=== PATIENT | female | born 1935 | race Caucasian/White ===

== ENCOUNTER → 2017-10-15 13:37 | Outpatient (CLI) | payer MEDICARE, OTHER, SELFPAY ==
[2017-10-15 15:38] LABS: Absolute Lymphocyte Count 2.79 X10^3/ul (0.83-4.51); Absolute Neutrophil Count 5.9 X10^3/uL (2.0-7.7); Basophil# 0.06 X10^3/uL; Basophil% 0.6 % (0-1); Eosinophil# 0.37 X10^3/uL; Eosinophils% 3.7 % (0-5); Hematocrit 35.4 % (37-47); Lymphocyte # 2.79 X10^3/ul (4.0); Lymphocyte % 28.1 % (19-41); Mean Corp Hgb Conc 31.1 g/gl (32-36); Mean Corpuscular Hgb 28.2 pg (27.0-32.0); Mean Corpuscular Volume 90.8 fL (81-99); Mean Platelet Vol. 10.3 fl (6.2-12.0); Monocyte# 0.75 X10^3/uL; Monocyte% 7.6 % (0-10); Neutrophil # 5.93 X10^3/uL (2.7-7.7); Neutrophil % 59.7 % (47-70); Platelet Count 292 K/mm3 (150-450); RBC Distribution Width CV 13.9 % (11.6-14.6); RBC Distribution Width SD 46.2 fl (35.1-43.9); White Blood Count 9.9 K/mm3 (4.4-11.0)
[2017-10-15 15:46] LABS: POSITIVE COUNT NO; POSITIVE DIFFERENTIAL NO; POSITIVE MORPHOLOGY NO
== END ==
PROVIDERS: Family Provider Family Medicine; PCP Family Medicine; Visit Provider Internal Medicine Rheumatology
DX: D64.9 Anemia, unspecified (principal)
CPT/HCPCS: 36415; 85025

== ENCOUNTER → 2017-11-23 11:13 | Outpatient (CLI) | payer MEDICARE, OTHER, SELFPAY ==
[2017-11-23 14:09] LABS: Microalbumin,Random Urine 57.5 mg/L (NO RANGE EST.); Microalbumin:Creatinine Ratio 43.9 mg/g CRE (<30 mg/g CRE)
[2017-11-23 14:24] LABS: Hemoglobin A1c 7.4 % (4.2-6.3)
[2017-11-23 14:30] LABS: ALB/GLOB Ratio 0.8 RATIO (0.9-2.4); AST(SGOT) 21 U/L (15-37); Alanine Aminotransfer ALT/SGPT 17 U/L (13-56); Albumin, Serum 3.2 g/dL (3.2-5.0); Alkaline Phosphatase 91 U/L (45-117); Anion Gap 8 (5-15); BUN 18 mg/dL (7-18); BUN/Creat Ratio 18.3 RATIO (10-20); Calcium,Total 9.1 mg/dL (8.5-10.1); Chloride 109 mmol/L (98-107); Cholesterol 107 mg/dL (200); Creatinine, Serum 0.98 mg/dL (0.55-1.02); EST Glomerular Filtration Rate 58 mL/min (>60); Est Glom Filt Rate - Afr Amer 70 mL/min (>60); Globulin 3.9 g/dL (2.2-4.2); Glucose 76 mg/dL (74-106); High Density Lipoprotein 32 mg/dL; Potassium 4.2 mmol/L (3.5-5.1); Protein, Total 7.1 g/dL (6.4-8.2); Sodium Level 140 mmol/L (136-145); Triglycerides 130 mg/dL; Very Low Density Lipoprotein 26 mg/dL (5-40)
== END ==
PROVIDERS: Family Provider Family Medicine; PCP Family Medicine; Visit Provider Family Medicine
DX: E11.9 Type 2 diabetes mellitus without complications (principal); R80.9 Proteinuria, unspecified; E78.5 Hyperlipidemia, unspecified
CPT/HCPCS: 36415; 80053; 80061; 82043; 82570; 83036

== ENCOUNTER 2017-11-28 21:34 | Emergency (ER) | payer MEDICARE, OTHER, SELFPAY ==
[2017-11-28 21:35] VITALS: BP 130/79; PULSE 88; RESP 20; TEMP 36.2; O2SAT 95; BMI 37.4
[2017-11-28 21:51] LABS: Bedside Glucose 126 mg/dL (70-110)
[2017-11-28] MEDS: Ondansetron 4 MG/2 ML Vial IV (21:51)
[2017-11-28] MEDS: 0.9% Normal Saline 1,000 ML 1000 ML IV (21:51)
[2017-11-28 22:04] LABS: Absolute Lymphocyte Count 1.39 X10^3/ul (0.83-4.51); Absolute Neutrophil Count 8.5 X10^3/uL (2.0-7.7); Basophil# 0.04 X10^3/uL; Basophil% 0.4 % (0-1); Eosinophil# 0.09 X10^3/uL; Eosinophils% 0.8 % (0-5); Hematocrit 34.2 % (37-47); Lymphocyte # 1.39 X10^3/ul (4.0); Mean Corp Hgb Conc 32.2 g/gl (32-36); Mean Corpuscular Hgb 28.6 pg (27.0-32.0); Mean Corpuscular Volume 89.1 fL (81-99); Mean Platelet Vol. 9.4 fl (6.2-12.0); Monocyte# 0.69 X10^3/uL; Monocyte% 6.4 % (0-10); Neutrophil # 8.46 X10^3/uL (2.7-7.7); Neutrophil % 79.1 % (47-70); POSITIVE COUNT NO; POSITIVE DIFFERENTIAL NO; POSITIVE MORPHOLOGY NO; Platelet Count 230 K/mm3 (150-450); RBC Distribution Width CV 13.8 % (11.6-14.6); RBC Distribution Width SD 45.2 fl (35.1-43.9); Red Blood Count 3.84 M/mm3 (4.2-5.4); White Blood Count 10.7 K/mm3 (4.4-11.0)
[2017-11-28 22:21] LABS: ALB/GLOB Ratio 0.9 RATIO (0.9-2.4); AST(SGOT) 27 U/L (15-37); Alanine Aminotransfer ALT/SGPT 20 U/L (13-56); Albumin, Serum 3.4 g/dL (3.2-5.0); Alkaline Phosphatase 96 U/L (45-117); Anion Gap 9 (5-15); BUN 22 mg/dL (7-18); BUN/Creat Ratio 18.3 RATIO (10-20); Calcium,Total 9.5 mg/dL (8.5-10.1); Chloride 109 mmol/L (98-107); EST Glomerular Filtration Rate 46 mL/min (>60); Est Glom Filt Rate - Afr Amer 55 mL/min (>60); Estimated Creatinine Clearance 31.75 ml/min; Globulin 3.9 g/dL (2.2-4.2); Glucose 119 mg/dL (74-106); Potassium 4.3 mmol/L (3.5-5.1); Protein, Total 7.3 g/dL (6.4-8.2); Sodium Level 140 mmol/L (136-145)
--- NOTE | 2017-11-28 23:17 | ED.VISSUMM ---
- ER Visit Summary Date of Service: 11/28/17 Chief Complaint: Diarrhea History of Present Illness: The patient is a 82 F presenting with 2 days of loose watery diarrhea. No nausea or vomiting. No abdominal pain. No recent travel or sick contacts. No recent antibiotics. She is still drinking fluids but was concerned that she could be dehydrated. She took her diabetes medication today but did not eat her normal food or candy that she has used to and her blood glucose was low at urgent care [facility]. Physical Examination: Vitals are within normal limits. She is not in distress. Neck is supple. Heart tones are regular and without murmur. Lungs are clear bilaterally. Abdomen is soft and nontender. No focal or lateralizing neuro findings. No rash. Test Results: CBC and BMP are normal except for a slight increase in BUN/creatinine consistent with mild dehydration Emergency Department Course and Treatment: Given IV fluids and Zofran here. She did not have any episodes of diarrhea. She has no abdominal pain at all. No recent steroids or antibiotics. No risk factors for C. difficile. She never had any abdominal discomfort or fever. She looks quite well. I observed her and she is sitting up in bed not in distress. She is requesting to be discharged home. Her is comfortable taking her home and will continue to encourage fluids. She will follow closely with her doctor and return here if she develops any abdominal pain, fever, or is unable to orally hydrate. Treatment Plan: Oral Zofran as needed for nausea at home Disposition: Home stable condition Impression:Initial encounter diarrhea This note was generated with [employer] dictation software. It may contain incorrect words, spelling, and punctuation that were not noted in review of the chart prior to signing ED Disposition - Plan for ED Patient: Chief Complaint: Diarrhea Instructions: ED Diarrhea Viral Referrals: Mello Fowler DO [Primary Care Provider] - 1-2 Days if not improving
--- NOTE | 2017-11-28 23:20 | ED.DCSUM_ITS ---
- ER Visit Summary Date of Service: 11/28/17 Chief Complaint: Diarrhea History of Present Illness: The patient is a 82 F presenting with 2 days of loose watery diarrhea. No nausea or vomiting. No abdominal pain. No recent travel or sick contacts. No recent antibiotics. She is still drinking fluids but was concerned that she could be dehydrated. She took her diabetes medication today but did not eat her normal food or candy that she has used to and her blood glucose was low at urgent care [facility]. Physical Examination: Vitals are within normal limits. She is not in distress. Neck is supple. Heart tones are regular and without murmur. Lungs are clear bilaterally. Abdomen is soft and nontender. No focal or lateralizing neuro findings. No rash. Test Results: CBC and BMP are normal except for a slight increase in BUN/ creatinine consistent with mild dehydration Emergency Department Course and Treatment: Given IV fluids and Zofran here. She did not have any episodes of diarrhea. She has no abdominal pain at all. No recent steroids or antibiotics. No risk factors for C. difficile. She never had any abdominal discomfort or fever. She looks quite well. I observed her and she is sitting up in bed not in distress. She is requesting to be discharged home. Her is comfortable taking her home and will continue to encourage fluids. She will follow closely with her doctor and return here if she develops any abdominal pain, fever, or is unable to orally hydrate. Treatment Plan: Oral Zofran as needed for nausea at home Disposition: Home stable condition Impression:Initial encounter diarrhea This note was generated with [employer] dictation software. It may contain incorrect words, spelling, and punctuation that were not noted in review of the chart prior to signing ED Disposition - Plan for ED Patient: Chief Complaint: Diarrhea Instructions: ED Diarrhea Viral Referrals: Mello Fowler DO [Primary Care Provider] - 1-2 Days if not improving
[2017-11-28] MEDS: Ondansetron ODT 4 MG Tablet PO (23:46)
--- NOTE | 2017-11-28 23:51 | ED.RN ---
IV DC'ED, CATHETER INTACT, SMALL GAUZE DRESSING PLACED. DISCHARGE INSTRUCTIONS GIVEN TO AND REVIEWED WITH PATIENT AND SPOUSE, BOTH DENY QUESTIONS OR CONCERNS AND VOICES UNDERSTANDING OF DISCHARGE INSTRUCTIONS. PT AMBULATES OUT OF ROOM WITHOUT DIFFICULTY.
[2017-11-28 23:52] VITALS: BP 156/78; PULSE 82; RESP 16; O2SAT 96
== END 2017-11-28 23:53 | disposition home or self-care (01) ==
LOC: ED 22:06
PROVIDERS: Emergency Provider Emergency Medicine; Family Provider Family Medicine; PCP Family Medicine
DX: R19.7 Diarrhea, unspecified (principal); E86.0 Dehydration; E11.9 Type 2 diabetes mellitus without complications; M35.00 Sjogren syndrome, unspecified; Z79.84 Long term (current) use of oral hypoglycemic drugs; Z79.02 Long term (current) use of antithrombotics/antiplatelets; Z79.82 Long term (current) use of aspirin; Z79.899 Other long term (current) drug therapy
CPT/HCPCS: 80053; 82962; 85025; 99284; J7030; A4216; J2405

== ENCOUNTER 2017-11-30 13:04 | Inpatient (IN) | payer MEDICARE, OTHER, SELFPAY ==
[2017-11-30] VITALS (14 sets, daily range): BP systolic 120–145; BP diastolic 50–73; PULSE 50–74; RESP 15–23; TEMP 36.4–37.2; O2SAT 94–99; BMI 38.0; BMI 37.1
--- NOTE | 2017-11-30 13:07 | CT_ITS ---
STUDY: CT BRAIN WITHOUT CONTRAST REASON FOR EXAM: Female, 82 years old. Possible stroke. Hypertension. RADIATION DOSAGE (If Supplied By Facility): CTDIvol = ( 44.99 ) mGy, DLP = ( 796.11 ) mGycm TECHNIQUE: Transaxial CT imaging of the brain was performed without administration of intravenous contrast material. Individualized dose optimization techniques were used for this CT. COMPARISON: Comparison is made with prior study dated January 06, 2014. FINDINGS: Normal soft tissue structures. Normal calvarium. There is moderate cerebral atrophy with widening of the extra-axial spaces and ventricular dilatation. There are areas of decreased attenuation within the white matter tracts of the supratentorial brain, consistent with microvascular disease changes. Normal basal ganglia and thalami. Normal brainstem. There is mild cerebellar atrophy. There is no intracranial hemorrhage. There are no findings of an acute ischemic infarction. Atherosclerotic calcification of the cavernous portions of the internal carotid arteries bilaterally. Dolichoectasia of the basilar tip. Normal visualized paranasal sinuses. CT/Brain/Head without Contrast IMPRESSION: Chronic involutional changes of the brain. N.B. : The above information has been verbally conveyed by Alex Lobato MD to Toni Simmons, Referring Physician, on 11/30/2017 13:30:08 (ET). Electronically Signed: Alex Lobato MD at 13:30 EDT Tel [phone], Service support , N.B. : The above information has been verbally conveyed by Alex Lobato MD to Toni Simmons, Referring Physician, on 11/30/2017 13:30:08 (ET).
--- NOTE | 2017-11-30 13:07 | EKG12_ITS ---
Test Reason : NEURO Blood Pressure : / mmHG Vent. Rate : 063 BPM Atrial Rate : 063 BPM P-R Int : 232 ms QRS Dur : 076 ms QT Int : 398 ms P-R-T Axes : 075 008 050 degrees QTc Int : 407 ms Sinus rhythm with 1st degree A-V block Low voltage QRS Borderline ECG Confirmed by RICKIE CANTOR, TONIO ([id number]), restaurant expeditor JEFF PICKENS ([id number]) on 12/04/2017 2:18:41 PM Referred By: Mello Fowler Confirmed By:TONIO DAMIAN MD
[2017-11-30 13:17] LABS: Absolute Lymphocyte Count 3.02 X10^3/ul (0.83-4.51); Basophil# 0.05 X10^3/uL; Basophil% 0.5 % (0-1); Eosinophil# 0.42 X10^3/uL; Eosinophils% 4.5 % (0-5); Hematocrit 33.2 % (37-47); Hemoglobin 10.9 g/dl (12.0-15.0); Lymphocyte # 3.02 X10^3/ul (4.0); Lymphocyte % 32.6 % (19-41); Mean Corp Hgb Conc 32.8 g/gl (32-36); Mean Corpuscular Hgb 29.7 pg (27.0-32.0); Mean Corpuscular Volume 90.5 fL (81-99); Mean Platelet Vol. 9.9 fl (6.2-12.0); Monocyte# 0.78 X10^3/uL; Monocyte% 8.4 % (0-10); Neutrophil # 4.98 X10^3/uL (2.7-7.7); Neutrophil % 53.8 % (47-70); Platelet Count 228 K/mm3 (150-450); RBC Distribution Width CV 13.8 % (11.6-14.6); RBC Distribution Width SD 44.8 fl (35.1-43.9); Red Blood Count 3.67 M/mm3 (4.2-5.4); White Blood Count 9.3 K/mm3 (4.4-11.0)
[2017-11-30 13:18] LABS: POSITIVE COUNT NO; POSITIVE DIFFERENTIAL NO; POSITIVE MORPHOLOGY NO
[2017-11-30] MEDS: 0.9% Normal Saline 1,000 ML 100 ML IV (13:21)
[2017-11-30 13:25] LABS: International Normalized Ratio 1.1; Prothrombin Time (Protime)PT. 13.8 SECONDS (11.7-14.9)
[2017-11-30] MEDS: Dextrose 50%-Water 25 GM/50 ML DISP.SYRIN IV (13:25)
--- NOTE | 2017-11-30 13:25 | RAD_ITS ---
STUDY: X-RAY CHEST REASON FOR EXAM: Female, 82 years old. Confusion. TECHNIQUE: Single AP portable view of the chest. COMPARISON: Comparison is made with prior study dated August 28, 2016. FINDINGS: EKG electrodes are seen. The lungs are clear and expanded. There is no demonstrated pleural abnormality. There is moderate cardiac enlargement. Normal mediastinum and erick. Normal visualized pulmonary arteries. There is atherosclerotic tortuosity of the aortic arch and descending thoracic aorta. There are diffuse degenerative changes of the visualized thoracic spine. Normal visualized ribs, clavicles, and shoulders. There is no demonstrated abnormality of the visualized soft tissue structures of the upper abdomen. RAD/Chest 1 View IMPRESSION: Cardiomegaly. Electronically Signed: Alex Lobato MD at 13:42 EDT Tel [phone], Service support ,
[2017-11-30 13:26] LABS: Partial Thromboplast Time 26.5 Seconds (24.1-36.2)
[2017-11-30 13:26] LABS: Bedside Glucose 74 mg/dL (70-110)
[2017-11-30 13:34] LABS: Anion Gap 5 (5-15); BUN 17 mg/dL (7-18); BUN/Creat Ratio 15.2 RATIO (10-20); Calcium,Total 9.2 mg/dL (8.5-10.1); Chloride 110 mmol/L (98-107); Creatinine, Serum 1.12 mg/dL (0.55-1.02); EST Glomerular Filtration Rate 50 mL/min (>60); Est Glom Filt Rate - Afr Amer 60 mL/min (>60); Estimated Creatinine Clearance 34.02 ml/min; Glucose 73 mg/dL (74-106); Potassium 4.7 mmol/L (3.5-5.1); Sodium Level 142 mmol/L (136-145)
--- NOTE | 2017-11-30 13:35 | CT_ITS ---
STUDY: CTA OF THE BRAIN REASON FOR EXAM: Female, 82 years old. Global aphasia. RADIATION DOSAGE (If Supplied By Facility): CTDIvol = ( 22.19 ) mGy, DLP = ( 693.21 ) mGycm TECHNIQUE: CT angiography was performed with a multi-detector CT scanner. Data acquisition was obtained from the skull base through the vertex following intravenous administration of 100 ml of Isovue 370. MIP images were reconstructed from the axial data set. Post-processing of the angiographic images was performed, with multiplanar reformation and 3D reconstruction. Individualized dose optimization techniques were used for this CT. COMPARISON: None. FINDINGS: Normal bilateral petrous carotid arteries. There is calcified plaque formation of the right cavernous carotid artery, without a cross-sectional luminal stenosis. There is calcified plaque formation of the left cavernous carotid artery, without a cross-sectional luminal stenosis. Normal right A1 segments of the anterior cerebral artery. Normal left A1 segments of the anterior cerebral artery. Normal intact anterior communicating artery (ACOM). Normal bilateral A2 segments of the anterior cerebral arteries. Normal right M1 and M2 segments of the middle cerebral arteries, with a normal M1 bifurcation. Normal left M1 and M2 segments of the middle cerebral arteries, with a normal M1 bifurcation. Normal right posterior communicating artery (PCOM). Normal left posterior communicating artery (PCOM). Normal bilateral vertebral arteries. Normal basilar artery with a normal basilar bifurcation. The visualized bilateral superior cerebellar (SCA) arteries are normal. Normal bilateral P1, P2 and visualized P3 segments of the posterior cerebral arteries. There is no demonstrated aneurysm of the [place]. CT/CTA Head W/WO Contrast IMPRESSION: Normal [place] without a demonstrated aneurysm or hemodynamically significant stenosis. Electronically Signed: Alex Lobato MD at 14:57 EDT Tel [phone], Service support ,
--- NOTE | 2017-11-30 13:35 | CT_ITS ---
STUDY: CTA NECK WITH CONTRAST REASON FOR EXAM: Female, 82 years old. Global aphasia. RADIATION DOSAGE (If Supplied By Facility): CTDIvol = ( 22.19 ) mGy, DLP = ( 693.21 ) mGycm TECHNIQUE: CT angiography with multi-detector data acquisition was performed from the aortic arch to the skull base following intravenous administration of 100ML ml of Isovue 370 contrast. MIP images were reconstructed from the axial data set. Post-processing of the angiographic images was performed, with multiplanar reformation and 3D reconstruction. Individualized dose optimization techniques were used for this CT. COMPARISON: None. FINDINGS: AORTIC ARCH: There is atherosclerotic calcific plaque formation of the aortic arch and great vessels arising from the aortic arch, without a hemodynamically significant stenosis. Atherosclerotic plaque formation of the right brachiocephalic artery and proximal left subclavian artery. RIGHT CAROTID ARTERIES: Normal right common carotid artery (CCA). Normal right common carotid bulb. Normal origin of the right internal carotid (ICA) artery without a hemodynamically significant stenosis. Normal visualized cervical portion of the right internal carotid artery. Normal origin of the right external carotid artery (ECA). LEFT CAROTID ARTERIES: Normal left common carotid artery (CCA). Normal left common carotid bulb. Normal origin of the left internal carotid (ICA) artery without a hemodynamically significant stenosis. Normal visualized cervical portion of the left internal carotid artery. Normal origin of the left external carotid artery (ECA). VERTEBRAL ARTERIES: Normal bilateral vertebral arteries. Dolichoectasia of the basilar artery. CT/CTA Neck W/WO Contrast IMPRESSION: No acute abnormality is seen. Electronically Signed: Alex Lobato MD at 15:00 EDT Tel [phone], Service support ,
[2017-11-30 13:39] LABS: Color, Urine Yellow (Yellow); Glucose, Dipstick Normal (Normal); Ketone-Dipstick Negative (Negative); Leukocyte Esterase-Dipstick 100 /ul (Negative); Nitrite-Dipstick Positive (Negative); Occult Blood-Urine 10 /ul (Negative); Protein-Dipstick Negative (Negative); Specific Gravity, Urine 1.015 (1.002-1.030); Urine Clarity Sl. Cloudy (Clear); Urine Urobilinogen Normal (Normal)
[2017-11-30 13:54] LABS: Urine Bilirubin Dipstick 1 mg/dL (Negative)
[2017-11-30 13:56] LABS: Bacteria 4+ /hpf (None Seen); Mucous, Urine RARE /hpf (<or=2+); Red Blood Cells-Urine 0-5 SEEN /hpf (0-5); Squamous Epithelial Cells - UA 0-5 SEEN /hpf (5-10); White Blood Cells 5-10 SEEN /hpf (0-5)
--- NOTE | 2017-11-30 13:59 | CASEMGMT ---
Social Work Note Stroke alert called and SW responded. Provided support to pt's spouse. Spouse provided SW with medlist which was provided to nursing. Pt was recently in ED for blood sugars. Pt was present when symptoms occurred and called squad. Declines to have SW contact family and denies further needs. Gwen Apple, [employer] OPERATOR, [employer]ER
[2017-11-30] MEDS: Ceftriaxone 1 GM/50 ML BAG IV (14:34)
--- NOTE | 2017-11-30 15:39 | ED.VISSUMM ---
- ER Visit Summary Date of Service: 11/30/17 Chief Complaint: Weakness and slurred speech History of Present Illness: The patient is a [address] Fowler. Patient is essentially nonverbal at this time. reports that he woke up at 12:00. She seemed to be in her usual state of health. He went in 1245 to check on her and she had fallen while putting on her shoes. Patient seemed to have weakness and slurred speech. Physical Examination: Vitals: Stable. Afebrile. General: Well-nourished and well-developed. Head: Normocephalic dried blood in the left nares Neck: Supple, no lymphadenopathy. No JVD. Nontender. Cardiovascular: Regular rate and rhythm. No murmurs. Respiratory: No respiratory distress. Clear to auscultation bilaterally. Abdominal: Soft, nontender, nondistended, normal bowel sounds. No guarding, rebound, or peritoneal signs. Back: Nontender. Extremities: Erythema/contusion to the posterior left shoulder, no edema. Skin: Normal color, no rash. Neurologic: Patient is awake and alert. She will not speak. She clearly does not have a receptive aphasia. Her NIH scale is 6. Psych: Normal affect. Test Results: CT head shows atrophy and chronic changes. No acute disease. CTA head and neck show no acute disease. Chest x-ray shows cardiomegaly. EKG is sinus with first-degree AV block is 63 in no acute changes. Troponins negative. Cath urinalysis shows leukocytes, nitrates, 5-10 white blood cells, 4+ bacteria. Coags are normal. Chem-7 is more for chloride of 110, creatinine 1.12, glucose of 73. CBC is marked for an H&H 10.9 and 33.2. Emergency Department Course and Treatment: Patient was given an amp of D50 IV and a gram of Rocephin IV. On repeat exam when asked patient how she was doing and she was able to talk. However, shortly thereafter she stopped talking again. Treatment Plan: Patient was discussed with Dr. Asif. At this time given the nature of the patient's a aphasia it is felt that TPA is not in her best interest. She was discussed with Dr. Oliveros. She will be admitted to the hospital for further evaluation and treatment. Disposition: Admitted in improved condition. Impression: 1. Globally aphasia. 2. UTI. 3. Hypoglycemia. This note was generated with [employer] dictation software. It may contain incorrect words, spelling, and punctuation that were not noted in review of the chart prior to signing ED Disposition - Plan for ED Patient: Chief Complaint: Neuro S/Sx
--- NOTE | 2017-11-30 15:42 | ED.DCSUM_ITS ---
- ER Visit Summary Date of Service: 11/30/17 Chief Complaint: Weakness and slurred speech History of Present Illness: The patient is a [address] Fowler. Patient is essentially nonverbal at this time. reports that he woke up at 12:00. She seemed to be in her usual state of health. He went in 1245 to check on her and she had fallen while putting on her shoes. Patient seemed to have weakness and slurred speech. Physical Examination: Vitals: Stable. Afebrile. General: Well-nourished and well-developed. Head: Normocephalic dried blood in the left nares Neck: Supple, no lymphadenopathy. No JVD. Nontender. Cardiovascular: Regular rate and rhythm. No murmurs. Respiratory: No respiratory distress. Clear to auscultation bilaterally. Abdominal: Soft, nontender, nondistended, normal bowel sounds. No guarding, rebound, or peritoneal signs. Back: Nontender. Extremities: Erythema/contusion to the posterior left shoulder, no edema. Skin: Normal color, no rash. Neurologic: Patient is awake and alert. She will not speak. She clearly does not have a receptive aphasia. Her NIH scale is 6. Psych: Normal affect. Test Results: CT head shows atrophy and chronic changes. No acute disease. CTA head and neck show no acute disease. Chest x-ray shows cardiomegaly. EKG is sinus with first-degree AV block is 63 in no acute changes. Troponins negative. Cath urinalysis shows leukocytes, nitrates, 5-10 white blood cells, 4 + bacteria. Coags are normal. Chem-7 is more for chloride of 110, creatinine 1.12, glucose of 73. CBC is marked for an H&H 10.9 and 33.2. Emergency Department Course and Treatment: Patient was given an amp of D50 IV and a gram of Rocephin IV. On repeat exam when asked patient how she was doing and she was able to talk. However, shortly thereafter she stopped talking again. Treatment Plan: Patient was discussed with Dr. Asif. At this time given the nature of the patient's a aphasia it is felt that TPA is not in her best interest. She was discussed with Dr. Oliveros. She will be admitted to the hospital for further evaluation and treatment. Disposition: Admitted in improved condition. Impression: 1. Globally aphasia. 2. UTI. 3. Hypoglycemia. This note was generated with [employer] dictation software. It may contain incorrect words, spelling, and punctuation that were not noted in review of the chart prior to signing ED Disposition - Plan for ED Patient: Chief Complaint: Neuro S/Sx
--- NOTE | 2017-11-30 16:03 | HP.PCM_ITS ---
<Cyril Castellano - Last Filed: 11/30/17 15:53> Problem List (1) CVA (cerebral vascular accident) Status: Acute (2) UTI (urinary tract infection) Status: Acute (3) Vertigo Status: Chronic (4) DM (diabetes mellitus), type 2 Status: Chronic (5) Fibromyalgia Status: Chronic (6) Frequent UTI Status: Chronic (7) GERD (gastroesophageal reflux disease) Status: Chronic (8) HLD (hyperlipidemia) Status: Chronic (9) Hearing deficit Status: Chronic (10) Sjogrens syndrome Status: Chronic History of Present Illness Date of Admission: 11/30/17 Chief Complaint: right sided weakness The patient is a 82 year old F with a hx of frequent UTIs, vertigo, dementia, hard of hearing, HLD, DMt2, who presents to the ER from home with right sided weakness. Her is helping answer questions as she is having a difficult time responding, and he states that she cannot remember what happened today. He does note that she has a hx of dementia but she is usually oriented to herself and surroundings, and knows her family. She cannot say who her is currently. This morning her woke her up and was trying to get her up but she had weakness in her right leg. He called the squad and went to clear the house for EMS to get to the bedroom and when he returned he found her on the floor. She cannot recall what happened. There are also conflicting reports from the nurses and ER doc that she is behaving differently depending on if the is present, so her symptoms are unclear. She is following commands appropriately and does not appear to have weakness, GARCIA, dizziness, diplopia, CP , at this time. It is unclear if she is aphasic or having a difficult time hearing and undersanding questions. She requires questions to be repeated multiple times before answering and instructions to be repeated frequently. She has seen Dr. Asif as an outpatient for vertigo and sleep apnea. She was admitted for stroke workup in the past and discharged home with dx of BPPV. She also appears to have a UTI and does have a hx of frequent UTIs. Triana was placed in the ER. [] Past Medical History Past Medical History (Chronic Problems): Chronic Problems Fibromyalgia (Chronic) GERD (gastroesophageal reflux disease) (Chronic) Vertigo (Chronic) Frequent UTI (Chronic) Hearing deficit (Chronic) Otosclerosis (Chronic) HLD (hyperlipidemia) (Chronic) Sjogrens syndrome (Chronic) DM (diabetes mellitus), type 2 (Chronic) Allergies No Known Allergies Allergy (Verified 11/30/17 13:17) Home Medications: Ambulatory Orders Medication Instructions Recorded Aspirin [Aspirin, Baby] 81 mg PO DAILY@0800 01/06/14 Omeprazole [Prilosec] 40 mg PO DAILY 01/06/14 Atorvastatin Calcium [Lipitor] 40 mg PO QHS #30 tablet 01/08/14 B1/B2/B3/B5/B6/Iron/Meth/Choln 118 ml PO DAILY 08/28/16 [Geritol Tonic] Cholecalciferol (Vitamin D3) 1,000 unit PO DAILY 08/28/16 [Vitamin D3] Donepezil HCl 10 mg PO DAILY 08/28/16 Gabapentin [Neurontin] 300 mg PO QHS 08/28/16 Glimepiride [Amaryl] 4 mg PO BID 08/28/16 Metformin HCl [Glucophage] 1,000 mg PO BIDCM 08/28/16 Cinnamon Bark [Cinnamon] 1,000 mg PO DAILY 11/30/17 Erythromycin Base [Erythromycin] 1 applicatio EACH EYE DAILY 11/30/17 Gabapentin [Neurontin] 100 mg PO DAILY 11/30/17 Meloxicam [Meloxicam] 15 mg PO DAILY 11/30/17 Ramipril [Ramipril] 5 mg PO DAILY 11/30/17 traMADol [Ultram] 50 mg PO Q6H PRN 11/30/17 Surgical History: tonsillectomy - with an uvulectomy for sleep apnea Psychiatric History: No pertinent psych hx [employer] History: No pertinent [employer] history Smoking Status: Never smoker Alcohol: None Drugs: None - *Family History Maternal History Items: Diabetes, Dementia Paternal History Items: Diabetes, Heart Disease Review of Systems Constitutional: Denies: Chills, Fever, Weight Change HEENT: Denies: Head Aches, Sinus Congestion, Sinus Drainage Cardiovascular: Denies: Chest Pain, Palpitations Respiratory: Denies: Cough, Shortness of breath at rest, Sputum production Gastrointestinal: Denies: Abdominal Pain, Nausea, Vomiting Genitourinary: Denies: Dysuria Musculoskeletal: Denies: Joint Pain, Joint Tenderness Skin: Denies: Rash, Wounds Neurological: Reports: Balance problems, Confusion, Focal weakness, - - aphasia. Denies: Numbness, Tingling Psychiatric: Denies: Anxiety, Depression, Homicidal Ideations, Suicidal Ideations Hematologic/ Lymphatic: Denies: Easy Bruising, Easy Bleeding VTE Information - Inpt Only VTE Present on Admission: No VTE Mechan Device Prophylaxis: SCD's VTE Pharm Prophylaxis ordered?: Yes Patient Problems: Active and Suspected Problems UTI (urinary tract infection) (Acute) CVA (cerebral vascular accident) (Acute) - Physical Exam General: Alert, Confused HEENT: Atraumatic, PERRLA, EOMI, Normocephalic Neck: Supple, No JVD, Negative Carotid Bruits Lungs: Clear to auscultation, Normal air movement Cardiovascular: Regular rate, No murmurs Abdomen: Bowel Sounds Present, Soft, Non Tender Extremities: No edema, Capillary Refill Less than 3 Seconds Skin: No rashes, No breakdown Musculoskeletal: No Tenderness to Palpation of Joints or Extremities Neurological: Cranial nerves II-XII grossly intact, - - difficulty hearing, difficulty following commands, difficulty verbalizing answers. Psych/Mental Status: Normal Affect, Appropriate Vital Signs Temp Pulse Resp BP Pulse Ox 98.6 F 62 16 128/63 H 97 11/30/17 15:26 11/30/17 15:26 11/30/17 15:26 11/30/17 15:26 11/30/17 15:26 Oxygen Flow Rate (L/min) 2 Oxygen Delivery Method Nasal Cannula Weight: 100.6 kg Body Mass Index (BMI) 38.0 Finger Stick Blood Glucose 74 Laboratory Tests Past 24 Hrs 11/30/17 11/30/17 11/30/17 13:08 13:08 13:08 WBC 9.3 RBC 3.67 L Hgb 10.9 L Hct 33.2 L MCV 90.5 MCH 29.7 MCHC 32.8 RDW 13.8 RDW Differential 44.8 H Plt Count 228 MPV 9.9 Immature Gran % (Auto) 0.200 Neut % (Auto) 53.8 Lymph % (Auto) 32.6 Stone % (Auto) 8.4 Eos % (Auto) 4.5 Baso % (Auto) 0.5 Absolute Neuts (auto) 5.0 Absolute Lymphs (auto) 3.02 Total Counted Not Reportable PT 13.8 INR 1.1 APTT 26.5 Sodium 142 Potassium 4.7 Chloride 110 H Carbon Dioxide 27.0 Anion Gap 5 BUN 17 Creatinine 1.12 H Estim Creat Clear Calc 34.02 Est GFR (MDRD) Af Amer 60 Est GFR (MDRD) Non-Af 50 L BUN/Creatinine Ratio 15.2 Glucose 73 L Calcium 9.2 Troponin I < 0.015 Urine Color Urine Clarity Urine pH Ur Specific [place] Urine Protein Urine Glucose (UA) Urine Ketones Urine Occult Blood Urine Nitrite Urine Bilirubin Urine Urobilinogen Ur Leukocyte Esterase Urine RBC Urine WBC Ur Squamous Epith Cells Urine Bacteria Urine Mucus 11/30/17 13:30 WBC RBC Hgb Hct MCV MCH MCHC RDW RDW Differential Plt Count MPV Immature Gran % (Auto) Neut % (Auto) Lymph % (Auto) Stone % (Auto) Eos % (Auto) Baso % (Auto) Absolute Neuts (auto) Absolute Lymphs (auto) Total Counted PT INR APTT Sodium Potassium Chloride Carbon Dioxide Anion Gap BUN Creatinine Estim Creat Clear Calc Est GFR (MDRD) Af Amer Est GFR (MDRD) Non-Af BUN/Creatinine Ratio Glucose Calcium Troponin I Urine Color Yellow Urine Clarity Sl. Cloudy Urine pH 5.0 Ur Specific [place] 1.015 Urine Protein Negative Urine Glucose (UA) Normal Urine Ketones Negative Urine Occult Blood 10 H Urine Nitrite Positive H Urine Bilirubin 1 H Urine Urobilinogen Normal Ur Leukocyte Esterase 100 H Urine RBC 0-5 SEEN Urine WBC 5-10 SEEN Ur Squamous Epith Cells 0-5 SEEN Urine Bacteria 4+ Urine Mucus RARE POC Glucose 11/30/17 13:09 POC Glucose 74 Assessment/Plan Active and Suspected Problems UTI (urinary tract infection) (Acute) CVA (cerebral vascular accident) (Acute) 1. CVA - ? hx of Right sided weakness and aphasia. CT brain negative, CTA head and neg negative. Neuro consult. Obtain MRI. Fell at home, does not appear to have any external head injury. Circumstances are unclear and her symptoms are different depending on who asks or if is present. Obtain PTOTST evals. Get echocardiogram. Check A1C/FLP. Continue ASA/statin for now. 2. UTI - with hx of frequent UTIs - continue rocephin and follow final C/S. 3. Hx BPPV 4. Dementia - continue home meds. 5. DMt2 - check A1C and adjust home meds as needed. Hold metformin. SSI 6. HLD - check FLP. 7. TOBY - to bring CPAP machine from home 8. Hx fibromyalgia/sjogren syndrome 9. CKD III - monitor renal function as she received contrast. DVT ppx: heparin DC planning: may need placed. This patient was seen by Cyril Castellano PA-C under the supervision of Doctor Domo. <Dereck Oliveros - Last Filed: 11/30/17 16:51> History of Present Illness Seen and examined. Patient was brought in by EMS as the patient suddenly had altered mental status and forgot to put on the shows and then fall backwards with weakness but caught by her . Patient was also not able to speak or understand the speech. Later on, patient was put on the bed by her and she rolled over from the bed but her thinks she did not had major injury. ED physician, Dr. Simmons said and they just excluded 6. ER physician already discussed with Dr. Asif and decided not tPA. As per the nursing staff, when the is not there patient denies a stroke scale is 0-1 [] Past Medical History Allergies No Known Allergies Allergy (Verified 11/30/17 13:17) - Physical Exam Neurological: Cranial nerves II-XII grossly intact, Deep Tendon Reflexes 2+/4 and Symmetrical, Motor Exam 5/5 strength throughout, - - difficulty hearing, difficulty following commands, difficulty verbalizing answers. NIH stroke scale is 6 with 2 points for unable to follow command, 2 for not able to name month and age and 2 for language deficit Vital Signs Temp Pulse Resp BP Pulse Ox 98.3 F 50 L 16 135/69 H 99 11/30/17 16:26 11/30/17 16:26 11/30/17 16:26 11/30/17 16:26 11/30/17 16:26 Oxygen Flow Rate (L/min) 2 Oxygen Delivery Method Nasal Cannula Weight: 216 lb 4.375 oz Body Mass Index (BMI) 37.1 Assessment/Plan This patient was seen in conjunction with Cyril FLAL. I have independently interviewed and examined the patient and reviewed pertinent history, examination findings, laboratory and plan of management. I have reviewed the note and agree with the documented findings with the few additional points. In brief, patient is admitted for suspected ischemic stroke with aphasia, not able to follow commands and decreased alertness, total NIH stroke scale 6. As mentioned above, CT brain is negative and CTA head and neck does not show major stenosis or occlusion. Standard CVA protocol with PT, OT, speech therapy, control of BP and glucose as per stroke guidelines. MRI brain ordered. I have discussed my assessment with Cyril FALL and orders have been reviewed. Code Visit Inpatient E&M: 87132 Init Hosp L3
--- NOTE | 2017-11-30 16:54 | MRI_ITS ---
MR Brain W/O Contrast INDICATION: confusion, weakness, aphasia COMPARISON: CT from earlier the same day TECHNIQUE: Multiplanar multisequence MRI examination of the brain without contrast FINDINGS: There is evidence of faintly restricted diffusion in the left thalamus compatible with focal acute left thalamic infarct. The ventricular system and cortical sulci are prominent, compatible with generalized cerebral volume loss. Small focal right high frontal encephalomalacia is noted compatible with prior focal infarct. There are patchy and confluent bilateral periventricular and subcortical T2/fat signal hyperintensities, nonspecific, most compatible with chronic ischemic microvascular white matter changes. Flow-voids of the [place] vascularity are present. The distal vertebral arteries and basilar artery are prominent in caliber. A partially empty sella is incidentally noted. MRI/Brain without Contrast IMPRESSION: Focal acute infarct in the left thalamus. Age-related generalized cerebral volume loss and chronic ischemic white matter changes. at 1943 Reported and signed by: Emilie Birmingham MD N.B. : The above information has been verbally conveyed by Emilie Birmingham MD to , Covering Physician, on 11/30/2017 19:45:46 (ET). Electronically Signed: Emilie Birmingham MD at 19:43 EDT Tel , Service support , N.B. : The above information has been verbally conveyed by Emilie Birmingham MD to , Covering Physician, on 11/30/2017 19:45:46 (ET).
--- NOTE | 2017-11-30 16:54 | ECHOD_ITS ---
Reason For Study: TIA/CVA Procedure This was a 2D Doppler, Color Flow transthoracic echocardiogram. The exam was of fair technical quality due to body habitus. The study was technically difficult. Exam performed portable in patient room. Left Ventricle Normal LV size. Left ventricular systolic function is normal. The estimated ejection fraction is 60 %. Normal diastology for age. No regional wall motion abnormalities noted. Right Ventricle Normal RV size. Normal systolic function. Atria The left atrium is mildly enlarged. Normal right atrium. No doppler evidence for ASD. Bubble contrast study negative for right to left interatrial shunt. Mitral Valve There is moderate mitral annular calcification. Extension of the mitral annular calcification onto the posterior mitral valve leaflet. Trivial mitral valve insufficiency. Tricuspid Valve Normal tricuspid valve. Trivial tricuspid valve insufficiency. Unable to estimate RV systolic pressure/pulmonary artery pressure due to technically difficult study. Aortic Valve Trisinus/trileaflet aortic valve. Normal aortic valve. Pulmonic Valve The pulmonic valve is not well visualized. Trivial pulmonic valve insufficiency. Great Vessels Normal sized aortic root. Pericardium/Pleural No pericardial effusion. Medication Performed a rapid injection of agitated mix of 9 cc saline and 1cc air to assess for atrial septal defect. MMode/2D Measurements & Calculations LVIDd: 4.9 cm IVSd: 1.3 cm Ao root diam: 3.1 cm LVIDs: 2.9 cm LVPWd: 1.1 cm LA dimension: 3.9 cm FS: 42.0 % LAV(MOD-sp4): 51.0 ml LA A4 area: 19.8 cm2 Time Measurements MV dec time: 0.31 sec Doppler Measurements & Calculations MV E max hitesh: 67.9 cm/sec Lat Peak E' Hitesh: 7.4 cm/sec Med Peak E' Hitesh: 7.3 cm/sec MV A max hitesh: 87.8 cm/sec E/E' lat: 9.1 E/E' med: 9.3 MV E/A: 0.77 MV V2 max: 107.9 cm/sec MV P1/2t max hitesh: 99.2 cm/sec Ao V2 max: 131.0 cm/sec MV max P.7 mmHg MV P1/2t: 91.5 msec Ao max P.9 mmHg MV V2 mean: 58.6 cm/sec MV dec slope: 317.4 cm/sec2 Ao V2 mean: 75.6 cm/sec MV mean P.6 mmHg MVA(P1/2t): 2.4 cm2 Ao mean P.7 mmHg MV V2 VTI: 34.0 cm Ao V2 VTI: 27.3 cm LV V1 max: 94.7 cm/sec PA V2 max: 105.9 cm/sec LV V1 max P.6 mmHg LV V1 mean P.5 mmHg LV V1 mean: 56.5 cm/sec LV V1 VTI: 20.2 cm Interpretation Summary The study was technically difficult. Left ventricular systolic function is normal. The estimated ejection fraction is 60 %. The left atrium is mildly enlarged. There is moderate mitral annular calcification. Extension of the mitral annular calcification onto the posterior mitral valve leaflet. Trivial mitral valve insufficiency. Trivial tricuspid valve insufficiency. Trivial pulmonic valve insufficiency. Unable to estimate RV systolic pressure/pulmonary artery pressure due to technically difficult study. Normal diastology for age. Ordering Physician: Dereck Oliveros Referring Physician: Mello Fowler Performed By: Renzo García RCS
[2017-11-30 17:00] LABS: Bedside Glucose 110 mg/dL (70-110)
--- NOTE | 2017-11-30 18:34 | NURSING ---
1615- pt's wedding ring removed for MRI. pt's wedding ring given to at this time.
[2017-11-30 22:32] LABS: Magnesium 1.6 mg/dL (1.6-2.6)
[2017-11-30] MEDS: Heparin Injection (Vial) 5,000 UNIT/ML VIAL 5000 UNIT SC (23:00)
[2017-11-30 23:11] LABS: Bedside Glucose 83 mg/dL (70-110)
[2017-12-01] VITALS (12 sets, daily range): BP systolic 115–140; BP diastolic 51–70; PULSE 54–80; RESP 12–20; TEMP 36.7–37.2; O2SAT 95–97; BMI 37.1
[2017-12-01] MEDS: Heparin Injection (Vial) 5,000 UNIT/ML VIAL 5000 UNIT SC ×2 (06:42→14:01)
[2017-12-01 07:05] LABS: Bedside Glucose 72 mg/dL (70-110)
[2017-12-01 07:25] LABS: Cholesterol 101 mg/dL (200); High Density Lipoprotein 28 mg/dL; Triglycerides 126 mg/dL; Very Low Density Lipoprotein 25 mg/dL (5-40)
[2017-12-01 07:42] LABS: Hemoglobin A1c 7.3 % (4.2-6.3)
[2017-12-01] MEDS: 0.9% Normal Saline 1,000 ML 75 ML IV ×2 (08:33→08:34)
[2017-12-01] MEDS: Aspirin 81 MG TAB.CHEW PO (08:36)
[2017-12-01] MEDS: Famotidine 20 MG Tablet PO (08:36)
[2017-12-01] MEDS: Ceftriaxone 1 GM/50 ML BAG IV (09:28)
[2017-12-01 11:11] LABS: Bedside Glucose 157 mg/dL (70-110)
--- NOTE | 2017-12-01 13:26 | CASEMGMT ---
Refer to SW assessment for additional details. Referral received from youth coordinator this date. Met with patient and this date. Introduced self and SW role at [facility]. Patient independent prior to admission in ambulation and ADLs. Multiple steps within their home. Patient and receptive to [facility] TCU or Rehab unit however do not want a facility in the community. PLAN: Referral initiated per message on post-acute referral line for [facility] TCU and Rehab units. Primary SW to follow up on Sunday. CASTILLO AlvarezA
--- NOTE | 2017-12-01 14:31 | PCM.PN.HOSP ---
Patient Problems: Active and Suspected Problems UTI (urinary tract infection) (Acute) CVA (cerebral vascular accident) (Acute) Subjective: Patient is awake and oriented ?1 but has advanced dementia for about 5 years. 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 No focal weakness. Patient passed swallow screen. Vitals/I&O's: Vital Signs Temp Pulse Resp BP Pulse Ox 98.0 F 66 12 123/66 H 96 12/01/17 12:20 12/01/17 12:20 12/01/17 12:20 12/01/17 12:20 12/01/17 12:20 Oxygen Flow Rate (L/min) 2 Oxygen Delivery Method Room Air Weight: 216 lb 4.375 oz Body Mass Index (BMI) 37.1 Intake and Output for Last 24 Hours 11/29/17 11/30/17 12/01/17 23:59 23:59 23:59 Intake Total 1225 / 1225 Output Total 450 / 450 400 / 400 Balance -450 / -450 825 / 825 General: Alert, Cooperative, Disoriented HEENT: Atraumatic, PERRLA, EOMI, Normocephalic Oral: Dry Mucosa Neck: Supple, No JVD, Negative Carotid Bruits Lungs: Clear to auscultation, Normal air movement, No rhonchi, No wheeze, Diminished Cardiovascular: Regular rate, Regular Rhythm, Normal S1, Normal S2, No murmurs Abdomen: Bowel Sounds Present, Soft, Non Tender, Non-Distended Extremities: Capillary Refill Less than 3 Seconds, Edema Skin: No rashes, No breakdown Musculoskeletal: No Tenderness to Palpation of Joints or Extremities Neurological: Cranial nerves II-XII grossly intact, - - Patient has problem understanding the speech and reading the words. She is also hard of hearing and dementia Laboratory Results 11/30/17 16:55: POC Glucose 110 11/30/17 17:10: Troponin I < 0.015, TSH 1.80 11/30/17 17:10: Magnesium 1.6 11/30/17 23:04: POC Glucose 83 12/01/17 06:20: Triglycerides 126, Cholesterol 101, LDL Cholesterol 48, VLDL Cholesterol 25, HDL Cholesterol 28 L 12/01/17 06:20: Hemoglobin A1c 7.3 H 12/01/17 06:45: POC Glucose 72 12/01/17 11:04: POC Glucose 157 H Current Medications Acetaminophen (Tylenol) 650 mg PO Q4H PRN PRN PRN Reason: Headache/Temp>99F Aspirin (Aspirin, Baby) 81 mg PO DAILY@0800 [facility] Last Admin: 12/01/17 08:36 Dose: 81 mg Atorvastatin Calcium (Lipitor) 80 mg PO QHS [facility] Dextrose (D50w Syringe) 0 gm IV X1 PRN; Protocol PRN Reason: Hypoglycemia Donepezil HCl (Aricept) 10 mg PO DAILY [facility] Erythromycin () gm EACH EYE DAILY [facility] Famotidine (Pepcid) 20 mg PO DAILY [facility] Last Admin: 12/01/17 08:36 Dose: 20 mg Gabapentin (Neurontin) 100 mg PO DAILY [facility] Gabapentin (Neurontin) 300 mg PO QHS [facility] Glucagon () 1 mg IM .X1 PRN PRN Reason: Hypoglycemia Heparin Sodium (Porcine) (Heparin Na) 5,000 unit SC Q12 [facility] Ceftriaxone Sodium (Rocephin) 1 gm in 50 mls @ 100 mls/hr IV Q24 [facility] Last Admin: 12/01/17 09:28 Dose: 100 mls/hr Insulin Human Lispro (Humalog Kwikpen (Bkc)) 0 unit SQ ACHS [facility] PRN Reason: Protocol Labetalol HCl (Trandate) 10 mg IV Q10M PRN PRN Reason: MAINTAIN SBP GOALS Stop: 12/01/17 16:53 Non-Formulary Medication (B1/B2/B3/B5/B6/Iron/Meth/Choln [Geritol Tonic]) 118 ml PO DAILY [facility] Non-Formulary Medication (Cholecalciferol (Vitamin D3) [Vitamin D3]) 1,000 unit PO DAILY [facility] Non-Formulary Medication (Omeprazole [Prilosec]) 40 mg PO DAILY [facility] Ramipril (Altace) 5 mg PO DAILY [facility] Tramadol HCl (Ultram) 50 mg PO Q6H PRN PRN Reason: PAIN Medical Necessity - Tobacco Use Smoking Status: Never smoker Assessment/Plan Active and Suspected Problems UTI (urinary tract infection) (Acute) CVA (cerebral vascular accident) (Acute) This is a 32-year-old female who is admitted for suspected ischemic stroke with aphasia, not able to follow commands and decreased alertness, total NIH stroke scale 6. As mentioned above, CT brain is negative and CTA head and neck does not show major stenosis or occlusion. She was further admitted in PCU floor. 1 acute focal ischemic infarct in the left thalamus: Patient had MRI brain which showed Focal acute infarct in the left thalamus. CT brain does not show acute change. Neuro consult. Standard CVA protocol with PT, OT, speech therapy, control of BP and glucose as per stroke guidelines. On aspirin, Plavix and statin. Her troponin enzymes are negative. TSH 1.8. A1c 7.3. Fasting lipid profile shows low HDL 28. 2. E. coli lower UTI - with hx of frequent UTIs -final urine culture is pending. Continue Rocephin 3. Hx BPPV 4. 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 Continue home meds. 5. DMt2 -on Accu-Chek before meals and at bedtime and cover with SSI 6. HLD -as mentioned above. On the starting 7. TOBY - to bring CPAP machine from home 8. Hx fibromyalgia/sjogren syndrome 9. CKD III - monitor renal function as she received contrast. DVT ppx: heparin Microbiology Past 72 Hours 11/30/17 13:30 Urine Catheter - Triana Urine Culture - Preliminary Presumptive E. coli Laboratory Results 11/30/17 16:55: POC Glucose 110 11/30/17 17:10: Troponin I < 0.015, TSH 1.80 11/30/17 17:10: Magnesium 1.6 11/30/17 23:04: POC Glucose 83 12/01/17 06:20: Triglycerides 126, Cholesterol 101, LDL Cholesterol 48, VLDL Cholesterol 25, HDL Cholesterol 28 L 12/01/17 06:20: Hemoglobin A1c 7.3 H 12/01/17 06:45: POC Glucose 72 12/01/17 11:04: POC Glucose 157 H Clinical Impression(s) from Imaging Studies Brain CT 11/30/17 13:07 IMPRESSION: Chronic involutional changes of the brain. Chest X-Ray 11/30/17 13:25 IMPRESSION: Cardiomegaly. Head CTA 11/30/17 13:35 IMPRESSION: Normal [place] without a demonstrated aneurysm or hemodynamically significant stenosis. Electronically Signed: Alex Lobato MD at 14:57 EDT Tel [phone], Service support , Neck CTA 11/30/17 13:35 IMPRESSION: No acute abnormality is seen. Electronically Signed: Alex Lobato MD at 15:00 EDT Tel [phone], Service support , Brain MRI 11/30/17 16:54 IMPRESSION: Focal acute infarct in the left thalamus. Age-related generalized cerebral volume loss and chronic ischemic white matter changes. Code Visit Inpatient E&M: 72262 Subs Hosp L2
--- NOTE | 2017-12-01 14:39 | PN_ITS ---
Patient Problems: Active and Suspected Problems UTI (urinary tract infection) (Acute) CVA (cerebral vascular accident) (Acute) Subjective: Patient is awake and oriented ?1 but has advanced dementia for about 5 years. 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 No focal weakness. Patient passed swallow screen. Vitals/I&O's: Vital Signs Temp Pulse Resp BP Pulse Ox 98.0 F 66 12 123/66 H 96 12/01/17 12:20 12/01/17 12:20 12/01/17 12:20 12/01/17 12:20 12/01/17 12:20 Oxygen Flow Rate (L/min) 2 Oxygen Delivery Method Room Air Weight: 216 lb 4.375 oz Body Mass Index (BMI) 37.1 Intake and Output for Last 24 Hours 11/29/17 11/30/17 12/01/17 23:59 23:59 23:59 Intake Total 1225 / 1225 Output Total 450 / 450 400 / 400 Balance -450 / -450 825 / 825 General: Alert, Cooperative, Disoriented HEENT: Atraumatic, PERRLA, EOMI, Normocephalic Oral: Dry Mucosa Neck: Supple, No JVD, Negative Carotid Bruits Lungs: Clear to auscultation, Normal air movement, No rhonchi, No wheeze, Diminished Cardiovascular: Regular rate, Regular Rhythm, Normal S1, Normal S2, No murmurs Abdomen: Bowel Sounds Present, Soft, Non Tender, Non-Distended Extremities: Capillary Refill Less than 3 Seconds, Edema Skin: No rashes, No breakdown Musculoskeletal: No Tenderness to Palpation of Joints or Extremities Neurological: Cranial nerves II-XII grossly intact, - - Patient has problem understanding the speech and reading the words. She is also hard of hearing and dementia Laboratory Results 11/30/17 16:55: POC Glucose 110 11/30/17 17:10: Troponin I < 0.015, TSH 1.80 11/30/17 17:10: Magnesium 1.6 11/30/17 23:04: POC Glucose 83 12/01/17 06:20: Triglycerides 126, Cholesterol 101, LDL Cholesterol 48, VLDL Cholesterol 25, HDL Cholesterol 28 L 12/01/17 06:20: Hemoglobin A1c 7.3 H 12/01/17 06:45: POC Glucose 72 12/01/17 11:04: POC Glucose 157 H Current Medications Acetaminophen (Tylenol) 650 mg PO Q4H PRN PRN PRN Reason: Headache/Temp>99F Aspirin (Aspirin, Baby) 81 mg PO DAILY@0800 [facility] Last Admin: 12/01/17 08:36 Dose: 81 mg Atorvastatin Calcium (Lipitor) 80 mg PO QHS [facility] Dextrose (D50w Syringe) 0 gm IV X1 PRN; Protocol PRN Reason: Hypoglycemia Donepezil HCl (Aricept) 10 mg PO DAILY [facility] Erythromycin () gm EACH EYE DAILY [facility] Famotidine (Pepcid) 20 mg PO DAILY [facility] Last Admin: 12/01/17 08:36 Dose: 20 mg Gabapentin (Neurontin) 100 mg PO DAILY [facility] Gabapentin (Neurontin) 300 mg PO QHS [facility] Glucagon () 1 mg IM .X1 PRN PRN Reason: Hypoglycemia Heparin Sodium (Porcine) (Heparin Na) 5,000 unit SC Q12 [facility] Ceftriaxone Sodium (Rocephin) 1 gm in 50 mls @ 100 mls/hr IV Q24 [facility] Last Admin: 12/01/17 09:28 Dose: 100 mls/hr Insulin Human Lispro (Humalog Kwikpen (Bkc)) 0 unit SQ ACHS [facility] PRN Reason: Protocol Labetalol HCl (Trandate) 10 mg IV Q10M PRN PRN Reason: MAINTAIN SBP GOALS Stop: 12/01/17 16:53 Non-Formulary Medication (B1/B2/B3/B5/B6/Iron/Meth/Choln [Geritol Tonic]) 118 ml PO DAILY [facility] Non-Formulary Medication (Cholecalciferol (Vitamin D3) [Vitamin D3]) 1,000 unit PO DAILY [facility] Non-Formulary Medication (Omeprazole [Prilosec]) 40 mg PO DAILY [facility] Ramipril (Altace) 5 mg PO DAILY [facility] Tramadol HCl (Ultram) 50 mg PO Q6H PRN PRN Reason: PAIN Medical Necessity - Tobacco Use Smoking Status: Never smoker Assessment/Plan Active and Suspected Problems UTI (urinary tract infection) (Acute) CVA (cerebral vascular accident) (Acute) This is a 32-year-old female who is admitted for suspected ischemic stroke with aphasia, not able to follow commands and decreased alertness, total NIH stroke scale 6. As mentioned above, CT brain is negative and CTA head and neck does not show major stenosis or occlusion. She was further admitted in PCU floor. 1 acute focal ischemic infarct in the left thalamus: Patient had MRI brain which showed Focal acute infarct in the left thalamus. CT brain does not show acute change. Neuro consult. Standard CVA protocol with PT, OT, speech therapy , control of BP and glucose as per stroke guidelines. On aspirin, Plavix and statin. Her troponin enzymes are negative. TSH 1.8. A1c 7.3. Fasting lipid profile shows low HDL 28. 2. E. coli lower UTI - with hx of frequent UTIs -final urine culture is pending. Continue Rocephin 3. Hx BPPV 4. 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 Continue home meds. 5. DMt2 -on Accu-Chek before meals and at bedtime and cover with SSI 6. HLD -as mentioned above. On the starting 7. TOBY - to bring CPAP machine from home 8. Hx fibromyalgia/sjogren syndrome 9. CKD III - monitor renal function as she received contrast. DVT ppx: heparin Microbiology Past 72 Hours 11/30/17 13:30 Urine Catheter - Triana Urine Culture - Preliminary Presumptive E. coli Laboratory Results 11/30/17 16:55: POC Glucose 110 11/30/17 17:10: Troponin I < 0.015, TSH 1.80 11/30/17 17:10: Magnesium 1.6 11/30/17 23:04: POC Glucose 83 12/01/17 06:20: Triglycerides 126, Cholesterol 101, LDL Cholesterol 48, VLDL Cholesterol 25, HDL Cholesterol 28 L 12/01/17 06:20: Hemoglobin A1c 7.3 H 12/01/17 06:45: POC Glucose 72 12/01/17 11:04: POC Glucose 157 H Clinical Impression(s) from Imaging Studies Brain CT 11/30/17 13:07 IMPRESSION: Chronic involutional changes of the brain. Chest X-Ray 11/30/17 13:25 IMPRESSION: Cardiomegaly. Head CTA 11/30/17 13:35 IMPRESSION: Normal [place] without a demonstrated aneurysm or hemodynamically significant stenosis. Electronically Signed: Alex Lobato MD at 14:57 EDT Tel [phone], Service support , Neck CTA 11/30/17 13:35 IMPRESSION: No acute abnormality is seen. Electronically Signed: Alex Lobato MD at 15:00 EDT Tel [phone], Service support , Brain MRI 11/30/17 16:54 IMPRESSION: Focal acute infarct in the left thalamus. Age-related generalized cerebral volume loss and chronic ischemic white matter changes. Code Visit Inpatient E&M: 64105 Subs Hosp L2
[2017-12-01] MEDS: traMADol 50 MG Tablet PO (15:45)
[2017-12-01 16:35] LABS: Bedside Glucose 162 mg/dL (70-110)
[2017-12-01] MEDS: Gabapentin 300 MG Capsule PO (23:05)
[2017-12-01] MEDS: Atorvastatin Calcium 80 MG Tablet PO (23:05)
[2017-12-01 23:16] LABS: Bedside Glucose 139 mg/dL (70-110)
[2017-12-02] VITALS (14 sets, daily range): BP systolic 115–135; BP diastolic 51–68; PULSE 54–83; RESP 16–18; TEMP 36.6–37; O2SAT 93–96; BMI 37.1
[2017-12-02 06:30] LABS: Anion Gap 7 (5-15); BUN 17 mg/dL (7-18); BUN/Creat Ratio 16.8 RATIO (10-20); Calcium,Total 8.5 mg/dL (8.5-10.1); Chloride 112 mmol/L (98-107); Creatinine, Serum 1.01 mg/dL (0.55-1.02); EST Glomerular Filtration Rate 56 mL/min (>60); Est Glom Filt Rate - Afr Amer 68 mL/min (>60); Estimated Creatinine Clearance 37.72 ml/min; Glucose 106 mg/dL (74-106); Potassium 3.8 mmol/L (3.5-5.1); Sodium Level 144 mmol/L (136-145)
[2017-12-02 07:05] LABS: Bedside Glucose 114 mg/dL (70-110)
[2017-12-02] MEDS: Aspirin 81 MG TAB.CHEW PO (08:36)
[2017-12-02] MEDS: Gabapentin 100 MG Capsule PO (08:37)
[2017-12-02] MEDS: Donepezil HCl 10 MG Tablet PO (08:37)
[2017-12-02] MEDS: Ramipril 5 MG Capsule PO (08:37)
[2017-12-02] MEDS: Clopidogrel Bisulfate 75 MG Tablet PO (08:38)
[2017-12-02] MEDS: Heparin Injection (Vial) 5,000 UNIT/ML VIAL 5000 UNIT SC ×2 (08:38→22:08)
[2017-12-02] MEDS: Pantoprazole Sodium 40 MG Tablet PO (08:39)
[2017-12-02] MEDS: Ceftriaxone 1 GM/50 ML BAG IV (10:03)
[2017-12-02 10:56] LABS: Bedside Glucose 232 mg/dL (70-110)
--- NOTE | 2017-12-02 11:18 | PCM.PN.HOSP ---
Patient Problems: Active and Suspected Problems UTI (urinary tract infection) (Acute) CVA (cerebral vascular accident) (Acute) Subjective: Patient is sitting in the chair. More awake. Patient can read but typed letters newspaper well. Patient can understand the picture and describe it in NIHSS language screening but not able to identify cactus and [place] on the picture. Patient has semantic dementia Vitals/I&O's: Vital Signs Temp Pulse Resp BP Pulse Ox 97.8 F 83 16 135/64 H 93 12/02/17 08:30 12/02/17 08:30 12/02/17 08:30 12/02/17 08:30 12/02/17 08:30 Oxygen Flow Rate (L/min) 2 Oxygen Delivery Method Room Air Weight: 216 lb 4.375 oz Body Mass Index (BMI) 37.1 Intake and Output for Last 24 Hours 11/30/17 12/01/17 12/02/17 23:59 23:59 23:59 Intake Total 1585 / 1585 Output Total 450 / 450 400 / 400 Balance -450 / -450 1185 / 1185 General: Alert, Oriented x3, Cooperative HEENT: Atraumatic, PERRLA, EOMI, Normocephalic Neck: Supple, No JVD, Negative Carotid Bruits Lungs: Clear to auscultation, Normal air movement, No rhonchi, No wheeze, No rales Cardiovascular: Regular rate, Regular Rhythm, Normal S1, Normal S2, No murmurs Abdomen: Bowel Sounds Present, Soft, Non Tender, Non-Distended Extremities: No edema, Capillary Refill Less than 3 Seconds Skin: No rashes, No breakdown Musculoskeletal: No Tenderness to Palpation of Joints or Extremities Neurological: Cranial nerves II-XII grossly intact Psych/Mental Status: Normal Affect, Appropriate Laboratory Results 12/01/17 16:19: POC Glucose 162 H 12/01/17 23:00: POC Glucose 139 H 12/02/17 06:05: Sodium 144, Potassium 3.8, Chloride 112 H, Carbon Dioxide 25.0, Anion Gap 7, BUN 17, Creatinine 1.01, Estim Creat Clear Calc 37.72, Est GFR (MDRD) Af Amer 68, Est GFR (MDRD) Non-Af 56 L, BUN/Creatinine Ratio 16.8, Glucose 106, Calcium 8.5 12/02/17 07:01: POC Glucose 114 H 12/02/17 10:50: POC Glucose 232 H Current Medications Acetaminophen (Tylenol) 650 mg PO Q4H PRN PRN PRN Reason: Headache/Temp>99F Aspirin (Aspirin, Baby) 81 mg PO DAILY@0800 [facility] Last Admin: 12/02/17 08:36 Dose: 81 mg Atorvastatin Calcium (Lipitor) 80 mg PO QHS [facility] Last Admin: 12/01/17 23:05 Dose: 80 mg Cholecalciferol (Vitamin D) 1,000 unit PO DAILY [facility] Last Admin: 12/02/17 08:39 Dose: 1,000 unit Clopidogrel Bisulfate (Plavix) 75 mg PO DAILY [facility] Last Admin: 12/02/17 08:38 Dose: 75 mg Dextrose (D50w Syringe) 0 gm IV X1 PRN; Protocol PRN Reason: Hypoglycemia Donepezil HCl (Aricept) 10 mg PO DAILY [facility] Last Admin: 12/02/17 08:37 Dose: 10 mg Erythromycin () 1 gm EACH EYE DAILY [facility] Last Admin: 12/02/17 08:38 Dose: 1 gm Famotidine (Pepcid) 20 mg PO DAILY [facility] Last Admin: 12/02/17 08:40 Dose: Not Given Gabapentin (Neurontin) 100 mg PO DAILYCM [facility] Last Admin: 12/02/17 08:37 Dose: 100 mg Gabapentin (Neurontin) 300 mg PO QHS [facility] Last Admin: 12/01/17 23:05 Dose: 300 mg Glucagon () 1 mg IM .X1 PRN PRN Reason: Hypoglycemia Heparin Sodium (Porcine) (Heparin Na) 5,000 unit SC Q12 [facility] Last Admin: 12/02/17 08:38 Dose: 5,000 u Ceftriaxone Sodium (Rocephin) 1 gm in 50 mls @ 100 mls/hr IV Q24 [facility] Last Admin: 12/02/17 10:03 Dose: 100 mls/hr Insulin Aspart (Novolog Flexpen (Bkc)) 0 units SC ACHS [facility] PRN Reason: Protocol Last Admin: 12/02/17 08:18 Dose: Not Given Pantoprazole Sodium (Protonix) 40 mg PO DAILY [facility] Last Admin: 12/02/17 08:39 Dose: 40 mg Ramipril (Altace) 5 mg PO DAILY [facility] Last Admin: 12/02/17 08:37 Dose: 5 mg Sodium Chloride () 5 - 30 ml IV UD PRN PRN Reason: SALINE FLUSH Tramadol HCl (Ultram) 50 mg PO Q6H PRN PRN Reason: PAIN Last Admin: 12/01/17 15:45 Dose: 50 mg Medical Necessity - Tobacco Use Smoking Status: Never smoker Assessment/Plan Active and Suspected Problems UTI (urinary tract infection) (Acute) CVA (cerebral vascular accident) (Acute) This is a 32-year-old female who is admitted for suspected ischemic stroke with aphasia, not able to follow commands and decreased alertness, total NIH stroke scale 6. As mentioned above, CT brain is negative and CTA head and neck does not show major stenosis or occlusion. She was further admitted in PCU floor. 1 acute focal ischemic infarct in the left thalamus: Patient had MRI brain which showed Focal acute infarct in the left thalamus. CT brain does not show acute change. Neuro consult. Standard CVA protocol with PT, OT, speech therapy, control of BP and glucose as per stroke guidelines. On aspirin, Plavix and statin. Her troponin enzymes are negative. TSH 1.8. A1c 7.3. Fasting lipid profile shows low HDL 28. 2. E. coli lower UTI - with hx of frequent UTIs -final urine culture is pending. Continue Rocephin 3. Hx BPPV 4. 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 Continue home meds. 5. DMt2 -on Accu-Chek before meals and at bedtime and cover with SSI 6. HLD -as mentioned above. On the starting 7. TOBY - to bring CPAP machine from home 8. Hx fibromyalgia/sjogren syndrome 9. CKD III - monitor renal function as she received contrast. DVT ppx: heparin. Discharge process: Based on the evaluation of PT/OT in their home or SNF. Microbiology Past 72 Hours 11/30/17 13:30 Urine Catheter - Triana Urine Culture - Final Presumptive E. coli Laboratory Results 12/01/17 16:19: POC Glucose 162 H 12/01/17 23:00: POC Glucose 139 H 12/02/17 06:05: Sodium 144, Potassium 3.8, Chloride 112 H, Carbon Dioxide 25.0, Anion Gap 7, BUN 17, Creatinine 1.01, Estim Creat Clear Calc 37.72, Est GFR (MDRD) Af Amer 68, Est GFR (MDRD) Non-Af 56 L, BUN/Creatinine Ratio 16.8, Glucose 106, Calcium 8.5 12/02/17 07:01: POC Glucose 114 H 12/02/17 10:50: POC Glucose 232 H 12/01/17 06:20: Triglycerides 126, Cholesterol 101, LDL Cholesterol 48, VLDL Cholesterol 25, HDL Cholesterol 28 L 12/01/17 06:20: Hemoglobin A1c 7.3 H 12/01/17 06:45: POC Glucose 72 12/01/17 11:04: POC Glucose 157 H Clinical Impression(s) from Imaging Studies Brain CT 11/30/17 13:07 IMPRESSION: Chronic involutional changes of the brain. Chest X-Ray 11/30/17 13:25 IMPRESSION: Cardiomegaly. Head CTA 11/30/17 13:35 IMPRESSION: Normal [place] without a demonstrated aneurysm or hemodynamically significant stenosis. Electronically Signed: Alex Lobato MD at 14:57 EDT Tel [phone], Service support , Neck CTA 11/30/17 13:35 IMPRESSION: No acute abnormality is seen. Electronically Signed: Alex Lobato MD at 15:00 EDT Tel [phone], Service support , Brain MRI 11/30/17 16:54 IMPRESSION: Focal acute infarct in the left thalamus. Age-related generalized cerebral volume loss and chronic ischemic white matter changes. Code Visit Inpatient E&M: 73216 Subs Hosp L2
--- NOTE | 2017-12-02 11:24 | CON.PCM_ITS ---
Reason for Consult Date of Consultation: 12/02/17 Reason for Consultation: cva History of Present Illness: The patient is a 82 year old F with history of dementia presented with abnormal speech and couldnt walk. called 911 and she presented to the ED where symptoms and clinical findings were nonlocalizing, confounded by UTI, therefore the patient was not a candidate for tpa. states improved today, not normal baseline. history obtained from who reports the uti symptoms have been present for about 2 weeks but not on antbx. also diarrhea. i normally see her as an outpt for severe dementia. confirms she takes asa daily at home. only new med is melatonin. Per admission H&P: The patient is a 82 year old F with a hx of frequent UTIs, vertigo, dementia, hard of hearing, HLD, DMt2, who presents to the ER from home with right sided weakness. Her is helping answer questions as she is having a difficult time responding, and he states that she cannot remember what happened today. He does note that she has a hx of dementia but she is usually oriented to herself and surroundings, and knows her family. She cannot say who her is currently. This morning her woke her up and was trying to get her up but she had weakness in her right leg. He called the squad and went to clear the house for EMS to get to the bedroom and when he returned he found her on the floor. She cannot recall what happened. There are also conflicting reports from the nurses and ER doc that she is behaving differently depending on if the is present, so her symptoms are unclear. She is following commands appropriately and does not appear to have weakness, GARCIA, dizziness, diplopia, CP, at this time. It is unclear if she is aphasic or having a difficult time hearing and undersanding questions. She requires questions to be repeated multiple times before answering and instructions to be repeated frequently. She has seen Dr. Asif as an outpatient for vertigo and sleep apnea. She was admitted for stroke workup in the past and discharged home with dx of BPPV. She also appears to have a UTI and does have a hx of frequent UTIs. Triana was placed in the ER Past Medical History Past Medical History (Chronic Problems): Chronic Problems Fibromyalgia (Chronic) GERD (gastroesophageal reflux disease) (Chronic) Vertigo (Chronic) Frequent UTI (Chronic) Hearing deficit (Chronic) Otosclerosis (Chronic) HLD (hyperlipidemia) (Chronic) Sjogrens syndrome (Chronic) DM (diabetes mellitus), type 2 (Chronic) Allergies No Known Allergies Allergy (Verified 11/30/17 13:17) Home Medications: Ambulatory Orders Medication Instructions Recorded Aspirin [Aspirin, Baby] 81 mg PO DAILY@0800 01/06/14 Omeprazole [Prilosec] 40 mg PO DAILY 01/06/14 Atorvastatin Calcium [Lipitor] 40 mg PO QHS #30 tablet 01/08/14 B1/B2/B3/B5/B6/Iron/Meth/Choln 118 ml PO DAILY 08/28/16 [Geritol Tonic] Cholecalciferol (Vitamin D3) 1,000 unit PO DAILY 08/28/16 [Vitamin D3] Donepezil HCl 10 mg PO DAILY 08/28/16 Gabapentin [Neurontin] 300 mg PO QHS 08/28/16 Glimepiride [Amaryl] 4 mg PO BID 08/28/16 Metformin HCl [Glucophage] 1,000 mg PO BIDCM 08/28/16 Cinnamon Bark [Cinnamon] 1,000 mg PO DAILY 11/30/17 Erythromycin Base [Erythromycin] 1 applicatio EACH EYE DAILY 11/30/17 Gabapentin [Neurontin] 100 mg PO DAILY 11/30/17 Meloxicam [Meloxicam] 15 mg PO DAILY 11/30/17 Ramipril [Ramipril] 5 mg PO DAILY 11/30/17 traMADol [Ultram] 50 mg PO Q6H PRN 11/30/17 Surgical History: tonsillectomy - with an uvulectomy for sleep apnea Psychiatric History: No pertinent psych hx [employer] History: No pertinent [employer] history Smoking Status: Never smoker Alcohol: None Drugs: None - *Family History Paternal History Items: Diabetes, Heart Disease Maternal History Items: Diabetes, Dementia Review of Systems Constitutional: Denies: Chills, Fever, Weight Change HEENT: Denies: Head Aches, Sinus Congestion, Sinus Drainage Cardiovascular: Denies: Chest Pain, Palpitations Respiratory: Denies: Cough, Shortness of breath at rest, Sputum production Gastrointestinal: Denies: Abdominal Pain, Nausea, Vomiting Genitourinary: Denies: Dysuria Musculoskeletal: Denies: Joint Pain, Joint Tenderness Skin: Denies: Rash, Wounds Neurological: Denies: Numbness, Tingling, Focal weakness Psychiatric: Denies: Anxiety, Depression, Homicidal Ideations, Suicidal Ideations Hematologic/ Lymphatic: Denies: Easy Bruising, Easy Bleeding Patient Problems: Active and Suspected Problems UTI (urinary tract infection) (Acute) CVA (cerebral vascular accident) (Acute) - Physical Exam General: Alert, Cooperative, No apparent distress, Confused, Disoriented HEENT: Atraumatic, PERRLA, EOMI, Normocephalic Neurological: Cranial nerves II-XII grossly intact Vital Signs Temp Pulse Resp BP Pulse Ox 36.6 C 83 16 135/64 H 93 12/02/17 08:30 12/02/17 08:30 12/02/17 08:30 12/02/17 08:30 12/02/17 08:30 Oxygen Flow Rate (L/min) 2 Oxygen Delivery Method Room Air Weight: 98.1 kg Body Mass Index (BMI) 37.1 Intake and Output for Last 24 Hours 11/30/17 12/01/17 12/02/17 23:59 23:59 23:59 Intake Total 1585 / 1585 Output Total 450 / 450 400 / 400 Balance -450 / -450 1185 / 1185 Laboratory Tests Past 24 Hrs 12/02/17 06:05 Sodium 144 Potassium 3.8 Chloride 112 H Carbon Dioxide 25.0 Anion Gap 7 BUN 17 Creatinine 1.01 Estim Creat Clear Calc 37.72 Est GFR (MDRD) Af Amer 68 Est GFR (MDRD) Non-Af 56 L BUN/Creatinine Ratio 16.8 Glucose 106 Calcium 8.5 POC Glucose 12/02/17 12/02/17 12/01/17 10:50 07:01 23:00 POC Glucose 232 H 114 H 139 H 12/01/17 16:19 POC Glucose 162 H Current Medications Aspirin 81 mg 12/01/17 08:00 12/02/17 08:36 Aspirin, Baby PO 81 mg DAILY@0800 [facility] Administration Atorvastatin Calcium 80 mg 12/01/17 22:00 12/01/17 23:05 Lipitor PO 80 mg QHS [facility] Administration Cholecalciferol 1,000 unit 12/02/17 10:00 12/02/17 08:39 Vitamin D PO 1,000 unit DAILY [facility] Administration Clopidogrel Bisulfate 75 mg 12/02/17 10:00 12/02/17 08:38 Plavix PO 75 mg DAILY [facility] Administration Donepezil HCl 10 mg 12/02/17 10:00 12/02/17 08:37 Aricept PO 10 mg DAILY [facility] Administration Erythromycin 1 gm 12/02/17 10:00 12/02/17 08:38 EACH EYE 1 gm DAILY [facility] Administration Famotidine 20 mg 12/01/17 10:00 12/02/17 08:40 Pepcid PO Not Given DAILY [facility] Gabapentin 100 mg 12/02/17 08:00 12/02/17 08:37 Neurontin PO 100 mg DAILYCM [facility] Administration Gabapentin 300 mg 12/01/17 22:00 12/01/17 23:05 Neurontin PO 300 mg QHS [facility] Administration Heparin Sodium (Porcine) 5,000 unit 12/01/17 22:00 12/02/17 08:38 Heparin Na SC 5,000 u Q12 [facility] Administration Ceftriaxone Sodium 1 gm in 50 mls @ 100 mls/hr 12/01/17 10:00 12/02/17 10:03 Rocephin IV 100 mls/hr Q24 [facility] Administration Insulin Aspart 0 units 12/01/17 16:00 12/02/17 08:18 Novolog Flexpen (Bkc) SC Not Given ACHS [facility] Protocol Pantoprazole Sodium 40 mg 12/02/17 10:00 12/02/17 08:39 Protonix PO 40 mg DAILY [facility] Administration Ramipril 5 mg 12/02/17 10:00 12/02/17 08:37 Altace PO 5 mg DAILY [facility] Administration Tramadol HCl 50 mg 12/01/17 14:13 12/01/17 15:45 Ultram PO 50 mg Q6H PRN Administration PAIN MRI reviewed: Acute small left thalamic infarct Echo: Technically limited study, EF 60% Assessment/Plan Active and Suspected Problems UTI (urinary tract infection) (Acute) CVA (cerebral vascular accident) (Acute) acute left thalamic cva statin, plavix, bp control, continue cpap at home, pt/ot/sp therapies, home if therapies dementia: stable, on aricept uti: agree with antibiotics
[2017-12-02 16:26] LABS: Bedside Glucose 211 mg/dL (70-110)
[2017-12-02] MEDS: Atorvastatin Calcium 80 MG Tablet PO (22:08)
[2017-12-02] MEDS: Gabapentin 300 MG Capsule PO (22:08)
[2017-12-02 22:20] LABS: Bedside Glucose 167 mg/dL (70-110)
[2017-12-03 00:15] VITALS: BP 155/72; PULSE 60; RESP 20; TEMP 36.3; O2SAT 95
[2017-12-03 03:34] VITALS: PULSE 64
[2017-12-03 04:15] VITALS: BP 135/78; PULSE 66; RESP 20; TEMP 36.6; O2SAT 96
[2017-12-03 06:52] VITALS: PULSE 63
[2017-12-03 06:55] LABS: Bedside Glucose 136 mg/dL (70-110)
[2017-12-03 08:15] VITALS: BP 142/84; PULSE 72; RESP 16; TEMP 36.6; O2SAT 98
[2017-12-03] MEDS: Aspirin 81 MG TAB.CHEW PO (08:38)
[2017-12-03] MEDS: Gabapentin 100 MG Capsule PO (08:39)
--- NOTE | 2017-12-03 08:52 | CASEMGMT ---
SW spoke with patient and her . Introduced self as well as role at [facility]. Patient's would like to take patient home today. He declines need for TCU, Rehab, or home health. SW told him if he changes his mind after they get home they can contact her PCP's office and he/she can order HH. They thanked [facility]. Plan: d/c home with . Ernestina LEGER
[2017-12-03] MEDS: Donepezil HCl 10 MG Tablet PO (09:09)
[2017-12-03] MEDS: Ramipril 5 MG Capsule PO (09:09)
[2017-12-03] MEDS: Pantoprazole Sodium 40 MG Tablet PO (09:09)
[2017-12-03] MEDS: Clopidogrel Bisulfate 75 MG Tablet PO (09:09)
[2017-12-03] MEDS: Famotidine 20 MG Tablet PO (09:09)
[2017-12-03] MEDS: Heparin Injection (Vial) 5,000 UNIT/ML VIAL 5000 UNIT SC (09:09)
[2017-12-03] MEDS: Ceftriaxone 1 GM/50 ML BAG IV (09:10)
[2017-12-03] MEDS: 0.9% NaCl Peripheral Flush Adult/Peds IV (09:10)
[2017-12-03 09:42] VITALS: BMI 37.1
[2017-12-03 11:08] VITALS: PULSE 67
[2017-12-03 11:30] LABS: Bedside Glucose 381 mg/dL (70-110)
--- NOTE | 2017-12-03 11:55 | DCINST_ITS ---
- Discharge Diagnoses Current Active Problems: Current Active and Chronic Problems UTI (urinary tract infection) (Acute) CVA (cerebral vascular accident) (Acute) You will use the following diet at home:: Calorie/Carbohydrate Controlled ( specify 1200, 1400, etc) - 1800 mckay / day, Cardiac - < 2 gram sodium daily, low cholesterol Your food should be the consistency of: Regular Your liquids should be the consistency of: Regular/Thin Discharge Activity: Return to Normal Activity Allergies/Adverse Reactions: Allergies No Known Allergies Allergy (Verified 11/30/17 13:17) Medications to take at Discharge Aspirin [Aspirin, Baby] 81 mg PO DAILY@0800 01/06/14 Omeprazole [Prilosec] 40 mg PO DAILY 01/06/14 B1/B2/B3/B5/B6/Iron/Meth/Choln [Geritol Tonic] 118 ml PO DAILY 08/28/16 Cholecalciferol (Vitamin D3) [Vitamin D3] 1,000 unit PO DAILY 08/28/16 Donepezil HCl 10 mg PO DAILY 08/28/16 Gabapentin [Neurontin] 300 mg PO QHS 08/28/16 Glimepiride [Amaryl] 4 mg PO BID 08/28/16 Metformin HCl [Glucophage] 1,000 mg PO BIDCM 08/28/16 Cinnamon Bark [Cinnamon] 1,000 mg PO DAILY 11/30/17 Erythromycin Base [Erythromycin] 1 applicatio EACH EYE DAILY 11/30/17 Gabapentin [Neurontin] 100 mg PO DAILY 11/30/17 Meloxicam 15 mg PO DAILY 11/30/17 Ramipril 5 mg PO DAILY 11/30/17 traMADol [Ultram] 50 mg PO Q6H PRN 11/30/17 Aspirin [Aspirin, Baby] 81 mg PO DAILY@0800 tab.chew 12/03/17 Atorvastatin Calcium [Lipitor] 80 mg PO QHS #30 tablet 12/03/17 Clopidogrel Bisulfate [Plavix] 75 mg PO DAILY #30 tablet 12/03/17 The following prescriptions were given: Atorvastatin Calcium [Lipitor] 80 mg PO QHS #30 tablet Clopidogrel Bisulfate [Plavix] 75 mg PO DAILY #30 tablet Primary Care Physician: Mello Fowler DO [Primary Care Provider] - Please follow up with your Primary Care Physician in: 1-2 weeks Please Follow Up With: Jace Asif MD When: 1-2 weeks Proposed Discharge Date: 12/03/17
--- NOTE | 2017-12-03 12:06 | CASEMGMT ---
Per Teo LIU, he would like this RN CM to check on Tradjenta 5mg daily coverage for pt at this time. Pt's retrieved pt's [employer] prescription coverage card and provided it to this RN CM. Call to [employer] and per Leslie, tradjenta is covered but pt's 1st month cavazos would be $406.25 due to deductible and pt's subsequent monthly cost will be $98.45. Teo LIU updated on all at this time and states that he will not order at this time, that pt can just f/u with PCP. Pt/ updated on all at this time, voice understanding. Cards returned to pt's at this time. Pt/ voice no further questions/concerns at this time. Young HUERTAS CM
--- NOTE | 2017-12-03 13:06 | PCM.DC.SUM ---
<Cyril Castellano - Last Filed: 12/03/17 13:06> Discharge Date and Diagnosis Date of Admission: 11/30/17 Date of Discharge: 12/03/17 - Primary Discharge Diagnosis Acute ischemic infact left thalamus Acute UTI - ecoli BPPV Dementia DMt2 HLD TOBY CKDIII - Secondary Discharge Diagnosis Chronic Problems Fibromyalgia (Chronic) GERD (gastroesophageal reflux disease) (Chronic) Vertigo (Chronic) Frequent UTI (Chronic) Hearing deficit (Chronic) Otosclerosis (Chronic) HLD (hyperlipidemia) (Chronic) Sjogrens syndrome (Chronic) DM (diabetes mellitus), type 2 (Chronic) Hospital Course and Treatment Imaging Results: Echo:Left ventricular systolic function is normal. The estimated ejection fraction is 60 %. The left atrium is mildly enlarged. There is moderate mitral annular calcification. Extension of the mitral annular calcification onto the posterior mitral valve leaflet. Trivial mitral valve insufficiency. Trivial tricuspid valve insufficiency. Trivial pulmonic valve insufficiency. Unable to estimate RV systolic pressure/pulmonary artery pressure due to technically difficult study. Normal diastology for age. CT/Brain/Head without Contrast IMPRESSION: Chronic involutional changes of the brain. CT/CTA Head W/WO Contrast IMPRESSION: Normal [place] without a demonstrated aneurysm or hemodynamically significant stenosis. MRI/Brain without Contrast IMPRESSION: Focal acute infarct in the left thalamus. Age-related generalized cerebral volume loss and chronic ischemic white matter changes. CT/CTA Neck W/WO Contrast IMPRESSION: No acute abnormality is seen. RAD/Chest 1 View IMPRESSION: Cardiomegaly. Consults: Neuro - Asif Operations: None Procedures: 2-D Echocardiogram Summary of Care Provided: Physical exam on day of discharge: General: Resting comfortably NAD Psych: A/Ox3 normal affect HEENT: PEARRLA AT NC Neck: Supple NT CV: RRR no m/t/r/g/h Resp: CTA Abd: [id number] Soft NT no guarding or rigidity Ext: DP2+= no edema Skin: W/D normal turgor Lymph/Heme: No active bleeding or adenopathy Neuro: CN2-12 intact Hospital course: The patient is a 82 year old F with a hx of dementia, DMt2, BPPV, frequent UTIs, HLD, hearing loss who presents to the emergency room with acute onset of right-sided weakness and confusion. She was found to have a urinary tract infection and an acute ophthalmic infarct on MRI of the brain. CTA of the head and neck were negative. She was admitted to the PCU and maintained on cardiac monitoring without any acute arrhythmias. Neurology was consulted and she was started on Plavix and high-dose statin therapy. She worked with physical therapy, Occupational Therapy, and speech therapy. She did have some underlying weakness and debility however her and her refused home health services at this time and he wanted to see how his did at home first. Her confusion and debility did improve well over the weekend. She was advised to follow up with her PCP and Neurology. TSH was normal. She has an elevated A1C at 7.3 and would benefit from additional agents, at this time the family is going to discuss options with their PCP first, amaryl and metformin are at max dose currently. LDL was at goal - 48. Troponins were negative. Echo was with negative bubble study and unremarkable. She was discharged home in stable condition This patient was seen by Cyril Castellano PA-C under the supervision of Doctor Hicks. [] Discharge Diet: Low fat/ Low Cholesterol, 1800 Calorie Control Diet, 2000 mg Sodium Diet Discharge Activity: Return to Normal Activity Home Medications: Medications to take at Discharge Aspirin [Aspirin, Baby] 81 mg PO DAILY@0800 01/06/14 Omeprazole [Prilosec] 40 mg PO DAILY 01/06/14 B1/B2/B3/B5/B6/Iron/Meth/Choln [Geritol Tonic] 118 ml PO DAILY 08/28/16 Cholecalciferol (Vitamin D3) [Vitamin D3] 1,000 unit PO DAILY 08/28/16 Donepezil HCl 10 mg PO DAILY 08/28/16 Gabapentin [Neurontin] 300 mg PO QHS 08/28/16 Glimepiride [Amaryl] 4 mg PO BID 08/28/16 Metformin HCl [Glucophage] 1,000 mg PO BIDCM 08/28/16 Cinnamon Bark [Cinnamon] 1,000 mg PO DAILY 11/30/17 Erythromycin Base [Erythromycin] 1 applicatio EACH EYE DAILY 11/30/17 Gabapentin [Neurontin] 100 mg PO DAILY 11/30/17 Meloxicam 15 mg PO DAILY 11/30/17 Ramipril 5 mg PO DAILY 11/30/17 traMADol [Ultram] 50 mg PO Q6H PRN 11/30/17 Aspirin [Aspirin, Baby] 81 mg PO DAILY@0800 tab.chew 12/03/17 Atorvastatin Calcium [Lipitor] 80 mg PO QHS #30 tab 12/03/17 Clopidogrel Bisulfate [Plavix] 75 mg PO DAILY #30 tab 12/03/17 Following Prescrptions Were Given to Patient: Atorvastatin Calcium [Lipitor] 80 mg PO QHS #30 tab Clopidogrel Bisulfate [Plavix] 75 mg PO DAILY #30 tab Primary Care Physician: Mello Fowler DO [Primary Care Provider] - Please follow up with your Primary Care Physician in: 1-2 weeks Please Follow Up With: Jace Asif MD When: 1-2 weeks Disposition: Home Minutes spent on discharge:: 35 Patient Condition:: Stable Medical Necessity - Tobacco Use Smoking Status: Never smoker Meaningful Use Info Meaningful Use Diagnoses (Choose all that apply): Ischemic CVA - CVA Therapy Assessed for PT,OT and/or ST?: Yes - Ischemic Stroke Antithrombotic order at d/c?: Yes Dx of Atrial fib/flutter?: No Anticoagulant at discharge?: No Reason anticoagulant not ordered: Procedure not Indicated Statins at discharge?: Yes Primary Dx Acute Ischemic CVA?: Yes IV tPA ordered during stay?: No Reason IV t-PA not ordered: Procedure not Indicated <Santosh Hicks - Last Filed: 12/03/17 15:44> Discharge Date and Diagnosis - Secondary Discharge Diagnosis Chronic Problems Fibromyalgia (Chronic) GERD (gastroesophageal reflux disease) (Chronic) Vertigo (Chronic) Frequent UTI (Chronic) Hearing deficit (Chronic) Otosclerosis (Chronic) HLD (hyperlipidemia) (Chronic) Sjogrens syndrome (Chronic) DM (diabetes mellitus), type 2 (Chronic) Hospital Course and Treatment Summary of Care Provided: The patient is a 82 year old F medical comorbidities admitted with right sided weakness and confusion patient was placed on a monitored bed underwent subsequent evaluation with which demonstrated Focal acute infarct in the left thalamus patient was managed per protocol Hospital course as detailed above by Cyril Castellano Patient was seen and examined on the day of her discharge her discharge instructions and med reconciliation is personally reviewed by me Total time spent 35 minutes Code Visit Inpatient E&M: 71189 Disch Hosp
--- NOTE | 2017-12-03 13:17 | DS.PCM_ITS ---
<Cyril Castellano - Last Filed: 12/03/17 13:06> Discharge Date and Diagnosis Date of Admission: 11/30/17 Date of Discharge: 12/03/17 - Primary Discharge Diagnosis Acute ischemic infact left thalamus Acute UTI - ecoli BPPV Dementia DMt2 HLD TOBY CKDIII - Secondary Discharge Diagnosis Chronic Problems Fibromyalgia (Chronic) GERD (gastroesophageal reflux disease) (Chronic) Vertigo (Chronic) Frequent UTI (Chronic) Hearing deficit (Chronic) Otosclerosis (Chronic) HLD (hyperlipidemia) (Chronic) Sjogrens syndrome (Chronic) DM (diabetes mellitus), type 2 (Chronic) Hospital Course and Treatment Imaging Results: Echo:Left ventricular systolic function is normal. The estimated ejection fraction is 60 %. The left atrium is mildly enlarged. There is moderate mitral annular calcification. Extension of the mitral annular calcification onto the posterior mitral valve leaflet. Trivial mitral valve insufficiency. Trivial tricuspid valve insufficiency. Trivial pulmonic valve insufficiency. Unable to estimate RV systolic pressure/pulmonary artery pressure due to technically difficult study. Normal diastology for age. CT/Brain/Head without Contrast IMPRESSION: Chronic involutional changes of the brain. CT/CTA Head W/WO Contrast IMPRESSION: Normal [place] without a demonstrated aneurysm or hemodynamically significant stenosis. MRI/Brain without Contrast IMPRESSION: Focal acute infarct in the left thalamus. Age-related generalized cerebral volume loss and chronic ischemic white matter changes. CT/CTA Neck W/WO Contrast IMPRESSION: No acute abnormality is seen. RAD/Chest 1 View IMPRESSION: Cardiomegaly. Consults: Neuro - Asif Operations: None Procedures: 2-D Echocardiogram Summary of Care Provided: Physical exam on day of discharge: General: Resting comfortably NAD Psych: A/Ox3 normal affect HEENT: [place] AT NC Neck: Supple NT CV: RRR no m/t/r/g/h Resp: CTA Abd: [id number] Soft NT no guarding or rigidity Ext: DP2+= no edema Skin: W/D normal turgor Lymph/Heme: No active bleeding or adenopathy Neuro: CN2-12 intact Hospital course: The patient is a 82 year old F with a hx of dementia, DMt2, BPPV, frequent UTIs , HLD, hearing loss who presents to the emergency room with acute onset of right -sided weakness and confusion. She was found to have a urinary tract infection and an acute ophthalmic infarct on MRI of the brain. CTA of the head and neck were negative. She was admitted to the PCU and maintained on cardiac monitoring without any acute arrhythmias. Neurology was consulted and she was started on Plavix and high-dose statin therapy. She worked with physical therapy, Occupational Therapy, and speech therapy. She did have some underlying weakness and debility however her and her refused home health services at this time and he wanted to see how his did at home first. Her confusion and debility did improve well over the weekend. She was advised to follow up with her PCP and Neurology. TSH was normal. She has an elevated A1C at 7.3 and would benefit from additional agents, at this time the family is going to discuss options with their PCP first, amaryl and metformin are at max dose currently. LDL was at goal - 48. Troponins were negative. Echo was with negative bubble study and unremarkable. She was discharged home in stable condition This patient was seen by Cyril Castellano PA-C under the supervision of Doctor Hicks. [] Discharge Diet: Low fat/ Low Cholesterol, 1800 Calorie Control Diet, 2000 mg Sodium Diet Discharge Activity: Return to Normal Activity Home Medications: Medications to take at Discharge Aspirin [Aspirin, Baby] 81 mg PO DAILY@0800 01/06/14 Omeprazole [Prilosec] 40 mg PO DAILY 01/06/14 B1/B2/B3/B5/B6/Iron/Meth/Choln [Geritol Tonic] 118 ml PO DAILY 08/28/16 Cholecalciferol (Vitamin D3) [Vitamin D3] 1,000 unit PO DAILY 08/28/16 Donepezil HCl 10 mg PO DAILY 08/28/16 Gabapentin [Neurontin] 300 mg PO QHS 08/28/16 Glimepiride [Amaryl] 4 mg PO BID 08/28/16 Metformin HCl [Glucophage] 1,000 mg PO BIDCM 08/28/16 Cinnamon Bark [Cinnamon] 1,000 mg PO DAILY 11/30/17 Erythromycin Base [Erythromycin] 1 applicatio EACH EYE DAILY 11/30/17 Gabapentin [Neurontin] 100 mg PO DAILY 11/30/17 Meloxicam 15 mg PO DAILY 11/30/17 Ramipril 5 mg PO DAILY 11/30/17 traMADol [Ultram] 50 mg PO Q6H PRN 11/30/17 Aspirin [Aspirin, Baby] 81 mg PO DAILY@0800 tab.chew 12/03/17 Atorvastatin Calcium [Lipitor] 80 mg PO QHS #30 tab 12/03/17 Clopidogrel Bisulfate [Plavix] 75 mg PO DAILY #30 tab 12/03/17 Following Prescrptions Were Given to Patient: Atorvastatin Calcium [Lipitor] 80 mg PO QHS #30 tab Clopidogrel Bisulfate [Plavix] 75 mg PO DAILY #30 tab Primary Care Physician: Mello Fowler DO [Primary Care Provider] - Please follow up with your Primary Care Physician in: 1-2 weeks Please Follow Up With: Jace Asif MD When: 1-2 weeks Disposition: Home Minutes spent on discharge:: 35 Patient Condition:: Stable Medical Necessity - Tobacco Use Smoking Status: Never smoker Meaningful Use Info Meaningful Use Diagnoses (Choose all that apply): Ischemic CVA - CVA Therapy Assessed for PT,OT and/or ST?: Yes - Ischemic Stroke Antithrombotic order at d/c?: Yes Dx of Atrial fib/flutter?: No Anticoagulant at discharge?: No Reason anticoagulant not ordered: Procedure not Indicated Statins at discharge?: Yes Primary Dx Acute Ischemic CVA?: Yes IV tPA ordered during stay?: No Reason IV t-PA not ordered: Procedure not Indicated <Santosh Hicks - Last Filed: 12/03/17 15:44> Discharge Date and Diagnosis - Secondary Discharge Diagnosis Chronic Problems Fibromyalgia (Chronic) GERD (gastroesophageal reflux disease) (Chronic) Vertigo (Chronic) Frequent UTI (Chronic) Hearing deficit (Chronic) Otosclerosis (Chronic) HLD (hyperlipidemia) (Chronic) Sjogrens syndrome (Chronic) DM (diabetes mellitus), type 2 (Chronic) Hospital Course and Treatment Summary of Care Provided: The patient is a 82 year old F medical comorbidities admitted with right sided weakness and confusion patient was placed on a monitored bed underwent subsequent evaluation with which demonstrated Focal acute infarct in the left thalamus patient was managed per protocol Hospital course as detailed above by Cyril Castellano Patient was seen and examined on the day of her discharge her discharge instructions and med reconciliation is personally reviewed by me Total time spent 35 minutes Code Visit Inpatient E&M: [id number] Disch Hosp
--- NOTE | 2017-12-04 14:53 | CASEMGMT ---
Addendum entered by Nakia Grant 12/11/17 15:05: Received call back from pt's , Anderson. He states that pt has been very tired with decreased motivation the last several days. states that pt was ok after discharged but has 'gone down hill since.' Pt is unsure of when pt's f/u appt is with PCP at this time. This RN HOWARD advised to try and get pt in with PCP in the next day or so or bring her back to ED with any concerns, voices understanding. This RN HOWARD asked if they have a BP cuff and he states they do. Advised him to check pt's bp and pulse and let PCP office know when he calls them to get sooner appt, voices understanding. voices no further questions/concerns/needs at this time. Young HUERTAS CM Original Note: Addendum entered by Nakia Grant 12/07/17 16:14: Received message from pt to call back to his cell, . Attempted to reach again without success, message left for them to call this ALEKSANDAR LAWRENCE back. Young HUERTAS CM Original Note: ALEKSANDAR LAWRENCE Discharge F/U Phone Call LACE: 12 STRATA: 4 Call Date: 12/04/17 Discharge date: 12/03/17 Time of Call: 1456 Attempted with no answer, message left for pt to call this ALEKSANDAR LAWRENCE back. Adm Dx: KAYLEEA Young HUERTAS CM
== END 2017-12-03 12:28 | disposition home or self-care (01) | DRG 65 ==
LOC: ED 14:05 → PCU 15:29
PROVIDERS: Internal Medicine; Admitting Provider Internal Medicine; Emergency Provider Emergency Medicine; Family Provider Family Medicine; PCP Family Medicine; Visit Provider Internal Medicine
DX: I63.9 Cerebral infarction, unspecified (principal); G81.91 Hemiplegia, unspecified affecting right dominant side; N39.0 Urinary tract infection, site not specified; R47.01 Aphasia; B96.20 Unspecified Escherichia coli [E. coli] as the cause of diseases classified elsewhere; E11.22 Type 2 diabetes mellitus with diabetic chronic kidney disease; N18.3 Chronic kidney disease, stage 3 (moderate); E11.649 Type 2 diabetes mellitus with hypoglycemia without coma; M35.00 Sjogren syndrome, unspecified; E78.5 Hyperlipidemia, unspecified; G30.9 Alzheimer's disease, unspecified; F02.80 Dementia in other diseases classified elsewhere, unspecified severity, without behavioral disturbance, psychotic disturbance, mood disturbance, and anxiety; M79.7 Fibromyalgia; H91.90 Unspecified hearing loss, unspecified ear; G47.33 Obstructive sleep apnea (adult) (pediatric); K21.9 Gastro-esophageal reflux disease without esophagitis; Z79.84 Long term (current) use of oral hypoglycemic drugs; Z79.02 Long term (current) use of antithrombotics/antiplatelets; Z79.82 Long term (current) use of aspirin; Z79.899 Other long term (current) drug therapy; Z87.440 Personal history of urinary (tract) infections; R19.7 Diarrhea, unspecified; E86.0 Dehydration
CPT/HCPCS: 36415; 70450; 70496; 70498; 70551; 71045; 80048; 80053; 80061; 81001; 82962; 83036; 83735; 84443; 84484; 85025; 85610; 85730; 87086; 87088; 87186; 92523; 92526; 93005; 93306; 96361; 96374; 97110; 97116; 97162; 97166; 97530; 99284; 99285; J7030; Q9957; Q9967; A4216; J2405

== ENCOUNTER 2018-02-02 10:35 | Emergency (ER) | payer MEDICARE, OTHER, SELFPAY ==
[2018-02-02 10:36] VITALS: BP 118/57; PULSE 54; RESP 16; TEMP 36.6; O2SAT 96; BMI 33.6
[2018-02-02 10:56] LABS: Bedside Glucose 118 mg/dL (70-110)
--- NOTE | 2018-02-02 11:10 | ED.DCSUM_ITS ---
- ER Visit Summary Date of Service: 02/02/18 Chief Complaint: Unresponsive History of Present Illness: The patient is a 82 F who was found unresponsive by her this morning. He called the ambulance. Initial blood sugar was 40 for EMS. They administered D50 and the patient woke up and currently only feels tired. She is on metformin and glipizide. She last ate last evening. states that yesterday his morning blood sugar was in the high 50s but she was awake and he fed her. There is not been any immediate changes in her diabetes medications. states that she did not eat as well as normal yesterday. Physical Examination: Afebrile vital signs are stable Gen: Well-nourished well-developed Head: Normocephalic atraumatic Eyes: Perrl EOMI ENT: TMs clear no rhinorrhea moist mucous membranes Neck: Supple no lymphadenopathy no JVD nontender CVS: Regular rate rhythm no murmurs normal S1-S2 Respiratory: No distress clear to auscultation bilaterally chest nontender Abdomen: Soft nontender nondistended normal bowel sounds no masses Back: Nontender Extremity: Nontender no edema Skin: Normal color no rash Neuro: alert orientated ?3 CN II-XII intact normal strength sensation reflexes Psych: Normal affect normal mood Test Results: CMP showed a creatinine 1.1. Emergency Department Course and Treatment: She was given food and we checked her blood sugar after lunch and she continues to feel at her baseline. Plan will be to have the patient drink some Ensure or other protein base food at bedtime. Patient's will check on her earlier in the morning tomorrow. They are to take there glucometer readings that he takes regularly to their doctor. Impression: 1. Diabetic hypoglycemia This note was generated with [employer] dictation software. It may contain incorrect words, spelling, and punctuation that were not noted in review of the chart prior to signing ED Disposition - Plan for ED Patient: Chief Complaint: Abn Labs Instructions: ED Diabetes Hypoglycemia Oral Agent Referrals: Mello Fowler DO [Primary Care Provider] - (with in 1 week)
[2018-02-02 11:28] LABS: ALB/GLOB Ratio 0.8 RATIO (0.9-2.4); AST(SGOT) 42 U/L (15-37); Alanine Aminotransfer ALT/SGPT 25 U/L (13-56); Albumin, Serum 2.8 g/dL (3.2-5.0); Alkaline Phosphatase 81 U/L (45-117); Anion Gap 6 (5-15); BUN 18 mg/dL (7-18); BUN/Creat Ratio 16.4 RATIO (10-20); Calcium,Total 8.4 mg/dL (8.5-10.1); Chloride 110 mmol/L (98-107); EST Glomerular Filtration Rate 51 mL/min (>60); Est Glom Filt Rate - Afr Amer 61 mL/min (>60); Estimated Creatinine Clearance 37.55 ml/min; Globulin 3.6 g/dL (2.2-4.2); Glucose 117 mg/dL (74-106); Protein, Total 6.4 g/dL (6.4-8.2); Sodium Level 139 mmol/L (136-145)
[2018-02-02 11:44] VITALS: BP 122/70; PULSE 75; RESP 14; O2SAT 99
[2018-02-02 12:04] VITALS: BP 131/74; PULSE 62; RESP 14; O2SAT 99
[2018-02-02 12:11] LABS: Bedside Glucose 138 mg/dL (70-110)
[2018-02-02 13:12] VITALS: BP 128/78; BP 130/78; PULSE 60; RESP 14; O2SAT 98; O2SAT 99
[2018-02-02 13:21] LABS: Bedside Glucose 164 mg/dL (70-110)
== END 2018-02-02 13:27 | disposition home or self-care (01) ==
PROVIDERS: Emergency Provider Emergency Medicine; Family Provider Family Medicine; PCP Family Medicine
DX: E11.649 Type 2 diabetes mellitus with hypoglycemia without coma (principal); Z79.84 Long term (current) use of oral hypoglycemic drugs; Z79.02 Long term (current) use of antithrombotics/antiplatelets; Z79.899 Other long term (current) drug therapy; Z86.73 Personal history of transient ischemic attack (TIA), and cerebral infarction without residual deficits
CPT/HCPCS: 80053; 82962; 99284; J7030; A4216

== ENCOUNTER → 2018-02-25 11:30 | Outpatient (CLI) | payer MEDICARE, OTHER, SELFPAY ==
[2018-02-25 14:23] LABS: ALB/GLOB Ratio 0.8 RATIO (0.9-2.4); AST(SGOT) 29 U/L (15-37); Alanine Aminotransfer ALT/SGPT 27 U/L (13-56); Albumin, Serum 3.1 g/dL (3.2-5.0); Alkaline Phosphatase 72 U/L (45-117); Anion Gap 10 (5-15); BUN 18 mg/dL (7-18); BUN/Creat Ratio 16.2 RATIO (10-20); Calcium,Total 9.1 mg/dL (8.5-10.1); Chloride 108 mmol/L (98-107); Creatinine, Serum 1.11 mg/dL (0.55-1.02); EST Glomerular Filtration Rate 50 mL/min (>60); Est Glom Filt Rate - Afr Amer 61 mL/min (>60); Globulin 3.7 g/dL (2.2-4.2); Glucose 142 mg/dL (74-106); Potassium 4.1 mmol/L (3.5-5.1); Protein, Total 6.8 g/dL (6.4-8.2); Sodium Level 143 mmol/L (136-145)
[2018-02-25 14:29] LABS: Hemoglobin A1c 6.2 % (4.2-6.3)
== END ==
PROVIDERS: Family Provider Family Medicine; PCP Family Medicine; Visit Provider Family Medicine
DX: E11.40 Type 2 diabetes mellitus with diabetic neuropathy, unspecified (principal); E78.5 Hyperlipidemia, unspecified
CPT/HCPCS: 36415; 80053; 83036

== ENCOUNTER → 2018-11-14 10:30 | Outpatient (CLI) | payer MEDICARE, OTHER, SELFPAY ==
[2018-11-14 12:35] LABS: Absolute Lymphocyte Count 2.94 X10^3/ul (0.83-4.51); Absolute Neutrophil Count 4.4 X10^3/uL (2.0-7.7); Basophil# 0.08 X10^3/uL; Basophil% 0.9 % (0-1); Eosinophils% 4.7 % (0-5); Hematocrit 36.2 % (37-47); Hemoglobin 11.4 g/dl (12.0-15.0); Lymphocyte # 2.94 X10^3/ul (4.0); Lymphocyte % 34.6 % (19-41); Mean Corp Hgb Conc 31.5 g/gl (32-36); Mean Corpuscular Hgb 28.5 pg (27.0-32.0); Mean Corpuscular Volume 90.5 fL (81-99); Mean Platelet Vol. 10.7 fl (6.2-12.0); Monocyte% 8.2 % (0-10); Neutrophil # 4.37 X10^3/uL (2.7-7.7); Neutrophil % 51.5 % (47-70); Platelet Count 222 K/mm3 (150-450); RBC Distribution Width SD 42.2 fl (35.1-43.9); White Blood Count 8.5 K/mm3 (4.4-11.0)
[2018-11-14 12:41] LABS: POSITIVE COUNT NO; POSITIVE DIFFERENTIAL NO; POSITIVE MORPHOLOGY NO
[2018-11-14 13:19] LABS: AST(SGOT) 27 U/L (15-37); Alanine Aminotransfer ALT/SGPT 23 U/L (13-56); Albumin, Serum 3.3 g/dL (3.2-5.0); Alkaline Phosphatase 88 U/L (45-117); Anion Gap 7 (5-15); BUN 21 mg/dL (7-18); BUN/Creat Ratio 18.4 RATIO (10-20); Calcium,Total 9.2 mg/dL (8.5-10.1); Chloride 108 mmol/L (98-107); Cholesterol 98 mg/dL (200); Creatinine, Serum 1.14 mg/dL (0.55-1.02); EST Glomerular Filtration Rate 48 mL/min (>60); Est Glom Filt Rate - Afr Amer 59 mL/min (>60); Globulin 3.4 g/dL (2.2-4.2); Glucose 69 mg/dL (74-106); High Density Lipoprotein 33 mg/dL; Potassium 4.2 mmol/L (3.5-5.1); Protein, Total 6.7 g/dL (6.4-8.2); Sodium Level 143 mmol/L (136-145); Triglycerides 95 mg/dL; Very Low Density Lipoprotein 19 mg/dL (5-40)
[2018-11-14 16:27] LABS: Microalbumin,Random Urine 45.3 mg/L (NO RANGE EST.); Microalbumin:Creatinine Ratio 32.4 mg/g CRE (<30 mg/g CRE)
== END ==
PROVIDERS: Family Provider Family Medicine; PCP Family Medicine; Referring Provider Family Medicine; Visit Provider Family Medicine
DX: E11.40 Type 2 diabetes mellitus with diabetic neuropathy, unspecified (principal); R80.9 Proteinuria, unspecified; E78.5 Hyperlipidemia, unspecified; Z51.81 Encounter for therapeutic drug level monitoring
CPT/HCPCS: 36415; 80053; 80061; 82043; 82570; 83036; 85025

== ENCOUNTER → 2018-11-26 15:44 | Outpatient (CLI) | payer MEDICARE, OTHER, SELFPAY ==
[2018-11-26 18:07] LABS: T4 Free Direct 0.89 ng/dL (0.76-1.46)
[2018-11-26 18:13] LABS: Vitamin B12 511 pg/mL (211-911)
== END ==
PROVIDERS: Family Provider Family Medicine; PCP Family Medicine; Visit Provider Family Medicine
DX: D64.9 Anemia, unspecified (principal); R53.83 Other fatigue
CPT/HCPCS: 36415; 82607; 84439; 84443

== ENCOUNTER 2018-12-03 09:39 | Inpatient (IN) | payer MEDICARE, OTHER, SELFPAY ==
[2018-12-03] VITALS (7 sets, daily range): BP systolic 116–147; BP diastolic 53–94; PULSE 52–72; RESP 16–18; TEMP 36.6–36.7; O2SAT 93–98; BMI 29.5; BMI 29.7
--- NOTE | 2018-12-03 10:02 | EKG12_ITS ---
Test Reason : NEURO Blood Pressure : / mmHG Vent. Rate : 066 BPM Atrial Rate : 066 BPM P-R Int : 232 ms QRS Dur : 074 ms QT Int : 386 ms P-R-T Axes : 062 -09 054 degrees QTc Int : 404 ms Sinus rhythm with 1st degree A-V block Low voltage QRS Borderline ECG Confirmed by RICKIE CANTOR, TONIO ([id number]), video editor JUDD UMANA ([id number]) on 12/05/2018 1:26:33 PM Referred By: Yaima Tobias Confirmed By:TONIO DAMIAN MD
--- NOTE | 2018-12-03 10:02 | CT_ITS ---
STUDY: CT BRAIN WITHOUT CONTRAST REASON FOR EXAM: Female, 83 years old. Confusion. Dementia. RADIATION DOSAGE (If Supplied By Facility): CTDIvol = ( 60.81 ) mGy, DLP = ( 1044.28 ) mGycm TECHNIQUE: Transaxial CT imaging of the brain was performed without administration of intravenous contrast material. Individualized dose optimization techniques were used for this CT. COMPARISON: Comparison is made with prior study dated November 30, 2017. FINDINGS: Normal soft tissue structures. Normal calvarium. There is moderate cerebral atrophy with widening of the extra-axial spaces and ventricular dilatation. There are areas of decreased attenuation within the white matter tracts of the supratentorial brain, consistent with microvascular disease changes. Since prior study, there is evidence of a 9.3 mm rounded hypodensity in the left thalamus most likely representing a lacunar infarct. Normal brainstem. There is mild cerebellar atrophy. There is no intracranial hemorrhage. There are no findings of an acute ischemic infarction. Atherosclerotic calcification of the vertebral arteries and cavernous portions of the internal carotid arteries bilaterally. Normal visualized paranasal sinuses. CT/Brain/Head without Contrast IMPRESSION: Chronic involutional changes of the brain. Age indeterminate left thalamic lacunar infarct. Electronically Signed: Alex Lobato, at 11:05 EDT , Service support ,
[2018-12-03 10:16] LABS: Absolute Lymphocyte Count 2.67 X10^3/ul (0.83-4.51); Absolute Neutrophil Count 6.1 X10^3/uL (2.0-7.7); Basophil# 0.07 X10^3/uL; Basophil% 0.7 % (0-1); Eosinophils% 3.1 % (0-5); Hematocrit 35.2 % (37-47); Hemoglobin 11.4 g/dl (12.0-15.0); Lymphocyte # 2.67 X10^3/ul (4.0); Lymphocyte % 27.5 % (19-41); Mean Corp Hgb Conc 32.4 g/gl (32-36); Mean Corpuscular Hgb 28.9 pg (27.0-32.0); Mean Corpuscular Volume 89.3 fL (81-99); Mean Platelet Vol. 10.8 fl (6.2-12.0); Monocyte% 6.2 % (0-10); Neutrophil # 6.07 X10^3/uL (2.7-7.7); Neutrophil % 62.4 % (47-70); POSITIVE COUNT NO; POSITIVE DIFFERENTIAL NO; POSITIVE MORPHOLOGY NO; Platelet Count 202 K/mm3 (150-450); RBC Distribution Width SD 41.8 fl (35.1-43.9); Red Blood Count 3.94 M/mm3 (4.2-5.4); White Blood Count 9.7 K/mm3 (4.4-11.0)
[2018-12-03 10:32] LABS: ALB/GLOB Ratio 0.9 RATIO (0.9-2.4); AST(SGOT) 22 U/L (15-37); Alanine Aminotransfer ALT/SGPT 22 U/L (13-56); Albumin, Serum 3.4 g/dL (3.2-5.0); Alkaline Phosphatase 90 U/L (45-117); Anion Gap 6 (5-15); BUN 29 mg/dL (7-18); BUN/Creat Ratio 25.9 RATIO (10-20); Calcium,Total 9.3 mg/dL (8.5-10.1); Chloride 108 mmol/L (98-107); Creatinine, Serum 1.12 mg/dL (0.55-1.02); EST Glomerular Filtration Rate 49 mL/min (>60); Est Glom Filt Rate - Afr Amer 60 mL/min (>60); Estimated Creatinine Clearance 37.66 ml/min; Globulin 3.6 g/dL (2.2-4.2); Glucose 161 mg/dL (74-106); Potassium 4.4 mmol/L (3.5-5.1); Sodium Level 141 mmol/L (136-145)
[2018-12-03 10:33] LABS: Mucous, Urine 0 SEEN /hpf (<or=2+); Red Blood Cells-Urine 0 SEEN /hpf (0-5); Squamous Epithelial Cells - UA 0 SEEN /hpf (5-10)
[2018-12-03 10:37] LABS: Color, Urine Yellow (Yellow); Glucose, Dipstick Normal (Normal); Ketone-Dipstick Negative (Negative); Leukocyte Esterase-Dipstick 100 /ul (Negative); Nitrite-Dipstick Positive (Negative); Occult Blood-Urine 10 /ul (Negative); Protein-Dipstick Negative (Negative); Urine Bilirubin Dipstick Negative (Negative); Urine Clarity Sl. Cloudy (Clear); Urine Urobilinogen Normal (Normal)
--- NOTE | 2018-12-03 10:45 | RAD_ITS ---
STUDY: X-RAY CHEST REASON FOR EXAM: Female, 83 years old. Cough. TECHNIQUE: Single AP portable view of the chest. COMPARISON: Comparison is made with prior study dated November 30, 2017. FINDINGS: EKG electrodes are seen. Mild degree of increased markings at the left lung base with blunting of the left costophrenic angle suggestive of either atelectasis and/or early infiltrate. Normal size heart. Normal mediastinum and erick. Normal visualized pulmonary arteries. There is atherosclerotic calcification of the aortic arch with tortuosity. There are diffuse degenerative changes of the visualized thoracic spine. Normal visualized ribs, clavicles, and shoulders. There is no demonstrated abnormality of the visualized soft tissue structures of the upper abdomen. RAD/Chest PA and Lateral IMPRESSION: Mild increased markings at the left lung base with blunting of left costophrenic angle. Electronically Signed: Alex Lobato, at 11:15 EDT , Service support ,
[2018-12-03 10:48] LABS: Bacteria 3+ /hpf (None Seen); White Blood Cells 5-10 SEEN /hpf (0-5)
--- NOTE | 2018-12-03 11:26 | ED.DCSUM_ITS ---
- ER Visit Summary Date of Service: 12/03/18 Chief Complaint: Confusion History of Present Illness: The patient is a [address] Fowler. reports that she became confused last night. She would not take her medications and refused to have her blood sugar measured. States that this is very out of character for her. Today the patient seems even more confused. He reports that she had a cough this morning. But she has not had a cough otherwise. No fever. Patient denies any chest pain, abdominal pain, headache, or dysuria. However, she is not a reliable informant. Physical Examination: Vitals: Stable. Afebrile. General: Well-nourished and well-developed. Head: Normocephalic atraumatic. Neck: Supple, no lymphadenopathy. No JVD. Nontender. Cardiovascular: Regular rate and rhythm. 2 out of 6 systolic murmur. Respiratory: No respiratory distress. Clear to auscultation bilaterally. Abdominal: Soft, nontender, nondistended, normal bowel sounds. No guarding, rebound, or peritoneal signs. Back: Nontender. Extremities: Nontender, no edema. Skin: Normal color, no rash. Neurologic: Lethargic, but arouses to voice. Moves all extremities well. Psych: Normal affect. Test Results: EKG is sinus at 66 with a first-degree AV block. This is unchanged from November 2017. UA shows leukocytes, nitrites, 5-10 white blood cells, 3+ bacteria. This was a cath specimen. It was sent for culture. CBC is marked for an H&H 11.4 and 35.2. Chem-7 is more for chloride of 108, glucose 161, BUN 29, creatinine 1.12. Chest x-ray shows increased markings in the left lung base. Atelectasis versus infiltrate. CT brain shows chronic changes. Emergency Department Course and Treatment: Patient had an IV placed. Her urine was sent for culture. She was given a dose of Rocephin IV. She is resting comfortably. Treatment Plan: The patient is confused and is not a candidate for outpatient treatment at this time. She will be discussed with the hospitalist and admitted for further evaluation and treatment. Disposition: Admitted in stable condition. Impression: 1. Acute delirium. 2. UTI. This note was generated with [employer] softwareation software. It may contain incorrect words, spelling, and punctuation that were not noted in review of the chart prior to signing ED Disposition - Plan for ED Patient: Referrals: Mello Fowler DO [Primary Care Provider] -
[2018-12-03] MEDS: Ceftriaxone 1 GM/50 ML BAG IV (11:33)
[2018-12-03] MEDS: 0.9% Normal Saline 1,000 ML 15 ML IV (11:33)
[2018-12-03] MEDS: 0.9% Normal Saline 1,000 ML 1000 ML IV (11:33)
--- NOTE | 2018-12-03 11:35 | PCM.HP.STD ---
Problem List (1) UTI (urinary tract infection) Status: Acute (2) Encephalopathy acute Status: Acute (3) Pneumonia Status: Acute Qualifiers: Pneumonia type: due to unspecified organism Laterality: unspecified laterality Lung location: unspecified part of lung Qualified Code(s): J18.9 - Pneumonia, unspecified organism (4) Dementia Status: Chronic Qualifiers: Dementia type: unspecified type Dementia behavioral disturbance: without behavioral disturbance Qualified Code(s): F03.90 - Unspecified dementia without behavioral disturbance (5) CKD (chronic kidney disease) stage 3, GFR 30-59 ml/min Status: Chronic (6) Chronic anemia Status: Chronic (7) CVA (cerebral vascular accident) Status: Chronic Qualifiers: CVA mechanism: unspecified Qualified Code(s): I63.9 - Cerebral infarction, unspecified (8) GERD (gastroesophageal reflux disease) Status: Chronic Qualifiers: Esophagitis presence: esophagitis presence not specified Qualified Code(s): K21.9 - Gastro-esophageal reflux disease without esophagitis (9) HLD (hyperlipidemia) Status: Chronic Qualifiers: Hyperlipidemia type: unspecified Qualified Code(s): E78.5 - Hyperlipidemia, unspecified (10) Sjogrens syndrome Status: Chronic Qualifiers: Sjogren's organ involvement: unspecified organ involvement Qualified Code(s): M35.00 - Sicca syndrome, unspecified (11) DM (diabetes mellitus), type 2 Status: Chronic Qualifiers: Diabetes mellitus penitentiary insulin use: without vermin exterminator use Diabetes mellitus complication status: with unspecified complications Qualified Code(s): E11.8 - Type 2 diabetes mellitus with unspecified complications History of Present Illness Date of Admission: 12/03/18 Chief Complaint: Confusion The patient is a 83 y/o F w/ PMHx: CKD stage III, CVA with memory impairment, Dementia unclear type without behavioral disturbance, HLD, Diabetes mellitus type II, GERD, Sjogrens syndrome, Chronic normocytic anemia who presents to the [facility] ED on 12/03/18 with worsening confusion per spouse noted to have started the evening prior with patient inability to successfully help divide her medications and take them which she normally can do despite her notable memory impairment with no specific recent fever, chills, nausea, emesis, dysuria, abdominal pain, diarrhea, cough or dyspnea complaints. Work-up in the ED included T 98, heart rate 63, BP 147/62, respiratory rate 17, 98% on room air, CBC with WBC 9.7, hemoglobin 11.4, platelet 202 without shift, CMP with chloride 108, BUN/creatinine 29/1.12, glucose 161, UA remarkable with pending UCx, EKG SR with 1 AVB, CXR with mild increased markings left lung base with blunting of left costophrenic angle, CT head with chronic involutional changes of the brain. In the ED patient administered Rocephin, normal saline. Past Medical History Past Medical History (Chronic Problems): Chronic Problems CVA (cerebral vascular accident) (Chronic) Dementia (Chronic) CKD (chronic kidney disease) stage 3, GFR 30-59 ml/min (Chronic) Chronic anemia (Chronic) Fibromyalgia (Chronic) GERD (gastroesophageal reflux disease) (Chronic) Vertigo (Chronic) Frequent UTI (Chronic) Hearing deficit (Chronic) Otosclerosis (Chronic) HLD (hyperlipidemia) (Chronic) Sjogrens syndrome (Chronic) DM (diabetes mellitus), type 2 (Chronic) Allergies No Known Allergies Allergy (Verified 12/03/18 09:43) Home Medications: Ambulatory Orders Medication Instructions Recorded Omeprazole [Prilosec] 40 mg PO DAILY 01/06/14 B1/B2/B3/B5/B6/Iron/Meth/Choln 118 ml PO DAILY 08/28/16 [Geritol Tonic] Cholecalciferol (Vitamin D3) 1,000 unit PO DAILY 08/28/16 [Vitamin D3] Donepezil HCl 10 mg PO QHS 08/28/16 Glimepiride [Amaryl] 2 mg PO DAILY 08/28/16 Metformin HCl [Glucophage] 500 mg PO DAILY 08/28/16 Cinnamon Bark [Cinnamon] 1,000 mg PO DAILY 11/30/17 Erythromycin Base [Erythromycin] 1 applicatio EACH EYE DAILY 11/30/17 Ramipril 5 mg PO DAILY 11/30/17 traMADol [Ultram] 50 mg PO Q6H PRN 11/30/17 Atorvastatin Calcium [Lipitor] 80 mg PO QHS #30 tab 12/03/17 Clopidogrel Bisulfate [Plavix] 75 mg PO DAILY #30 tab 12/03/17 Glimepiride [Amaryl] 1 mg PO QHS PRN 12/03/18 Loperamide [Imodium] 2 mg PO DAILY 12/03/18 Multivit-Min/FA/Lycopen/Lutein 1 each PO DAILY 12/03/18 [Centrum Silver Tablet] Naproxen Sodium [Aleve] 220 mg PO DAILY 12/03/18 Surgical History: - - Tonsillectomy, hysterectomy, breast lumpectomy. Psychiatric History: No pertinent psych hx CABINET PROFESSIONAL History: No pertinent CABINET PROFESSIONAL history Lives: Spouse/ Significant Other Smoking Status: Never smoker Tobacco Use: Non-smoker Alcohol: None Drugs: None - *Family History Paternal History Items: Diabetes, Heart Disease Maternal History Items: Diabetes, Dementia Review of Systems Constitutional: Reports: Malaise. Denies: Chills, Fever, Weight Change HEENT: Denies: Head Aches, Sinus Congestion, Sinus Drainage Cardiovascular: Denies: Chest Pain, Palpitations Respiratory: Denies: Cough, Shortness of breath at rest, Sputum production Gastrointestinal: Denies: Abdominal Pain, Nausea, Vomiting Genitourinary: Denies: Dysuria Musculoskeletal: Reports: Back Pain, Joint Pain. Denies: Joint Tenderness Skin: Denies: Rash, Wounds Neurological: Reports: Confusion. Denies: Focal weakness, Numbness, Tingling Psychiatric: Denies: Anxiety, Depression, Homicidal Ideations, Suicidal Ideations Hematologic/ Lymphatic: Reports: Anemia. Denies: Easy Bruising, Easy Bleeding VTE Information - Inpt Only VTE Present on Admission: No VTE Mechan Device Prophylaxis: SCD's VTE Pharm Prophylaxis ordered?: Yes Patient Problems: Active and Suspected Problems Pneumonia (Acute) Encephalopathy acute (Acute) Subjective: Seated upright in the bed, no acute distress, mildly fatigued, yawning frequently, answering questions appropriately. Objective: Physical Examination: General: awake, alert, oriented to self and some recent events, underlying dementia present, remains cooperative, seated upright in bed in no apparent distress. Skin: normal color, turgor, no icterus, cyanosis. HEENT: AT/NC, EOMI, PERRLA, mildly dry MM, no carotid bruits or JVD noted. Lungs: CTA bilaterally, moderate effort, moderate decrease BL bases, no rales, ronchi or wheezing. Heart: Regular rate and rhythm; no gallop, rub audible. Abdomen: soft, overweight, NTTP, ND, normal BS, no HSM. Extremities: no cyanosis, clubbing, or edema. Neurological: patient awake, alert, oriented as noted; cognitive function mildly decreased from baseline, reduced baseline secondary to dementia; pupils equally reactive to light and accomodation; cranial nerves II-XII grossly normal, moving all 4 extremities, no focal deficits, strength moderately globally decreased. Psychiatric: affect appears normal, mildly fatigued, no acute evidence of depressive or anxiety feelings. - Physical Exam Vital Signs Temp Pulse Resp BP Pulse Ox 98.0 F 61 17 117/94 H 98 12/03/18 09:40 12/03/18 11:30 12/03/18 11:30 12/03/18 11:30 12/03/18 11:30 Oxygen Delivery Method Room Air Weight: 188 lb 4.396 oz Body Mass Index (BMI) 29.5 Finger Stick Blood Glucose 167 Laboratory Tests Past 24 Hrs 12/03/18 12/03/18 12/03/18 09:55 09:55 10:25 WBC 9.7 RBC 3.94 L Hgb 11.4 L Hct 35.2 L MCV 89.3 MCH 28.9 MCHC 32.4 RDW 13.0 RDW Differential 41.8 Plt Count 202 MPV 10.8 Immature Gran % (Auto) 0.100 Neut % (Auto) 62.4 Lymph % (Auto) 27.5 [place] % (Auto) 6.2 Eos % (Auto) 3.1 Baso % (Auto) 0.7 Absolute Neuts (auto) 6.1 Absolute Lymphs (auto) 2.67 Total Counted Not Reportable Sodium 141 Potassium 4.4 Chloride 108 H Carbon Dioxide 27.0 Anion Gap 6 BUN 29 H Creatinine 1.12 H Estim Creat Clear Calc 37.66 Est GFR (MDRD) Af Amer 60 Est GFR (MDRD) Non-Af 49 L BUN/Creatinine Ratio 25.9 H Glucose 161 H Calcium 9.3 Total Bilirubin 0.50 AST 22 ALT 22 Alkaline Phosphatase 90 Total Protein 7.0 Albumin 3.4 Globulin 3.6 Albumin/Globulin Ratio 0.9 Urine Color Yellow Urine Clarity Sl. Cloudy Urine pH 7.0 Ur Specific [place] 1.010 Urine Protein Negative Urine Glucose (UA) Normal Urine Ketones Negative Urine Occult Blood 10 H Urine Nitrite Positive H Urine Bilirubin Negative Urine Urobilinogen Normal Ur Leukocyte Esterase 100 H Urine RBC 0 SEEN Urine WBC 5-10 SEEN Ur Squamous Epith Cells 0 SEEN Urine Bacteria 3+ Urine Mucus 0 SEEN Assessment/Plan All Active Problems UTI (urinary tract infection) (Acute) Pneumonia (Acute) Encephalopathy acute (Acute) Nausea and vomiting in adult (Acute) Diabetic neuropathy (Acute) Sleep apnea (Resolved) The patient is a 83 y/o F w/ PMHx: CKD stage III, CVA with memory impairment, Dementia unclear type without behavioral disturbance, HLD, Diabetes mellitus type II, GERD, Sjogrens syndrome, Chronic normocytic anemia who presents to the [facility] ED on 12/03/18 with worsening confusion per spouse noted to have started the evening prior with patient inability to successfully help divide her medications and take them which she normally can perform. (1) Acute Encephalopathy secondary to UTI and Possible PNA (Less suspected): Work-up in the ED included T 98, heart rate 63, BP 147/62, respiratory rate 17, 98% on room air, CBC with WBC 9.7, hemoglobin 11.4, platelet 202 without shift, CMP with chloride 108, BUN/creatinine 29/1.12, glucose 161, UA remarkable with pending UCx, EKG SR with 1 AVB, CXR with mild increased markings left lung base with blunting of left costophrenic angle, CT head with chronic involutional changes of the brain. Will admit to MS, PRN albuterol, maintained on IV Rocephin and Azithromycin, HOB, IS parameters w/ pending sputum cultures and urine antigens. Bld cx x 2 obtained in the ED. Less suspicious for PNA, suspect likely atelectasis, will obtain repeat AM PA and Lateral and de-escalate if appropriate. (2) Hx CVA: Patient deficits primarily memory, no focal neurological deficits otherwise, will continue Plavix, atorvastatin, holding oral diabetic medicine with insulin sliding scale in interim. (3) Chronic normocytic anemia: Admission Hgb 11.4, baseilne appears 10-11, stable, trend. (4) Diabetes mellitus type II: Hold oral home regimen, ADA diet, accu checks w/ ISS. (5) Chronic Kidney Disease Stage III: Admission BUN/Cr 29/1.12, baseline renal function 1.1-1.3, stable, repeat BMP in AM. (6) Hyperlipidemia: Continue home statin regimen. (7) Dementia, Unclear type without behavioral disturbance history:, Cates presentation, will continue home Aricept, patient with a notable family history of Alzheimer's disease however she had onset of issues with memory impairment with stroke in addition. (8) GERD: PPI. (9) DVT prophylaxis: SCDs, renally dosed lovenox. (10) CODE status: Patient spouse and herself do not have healthcare power of biological sciences instructor set up nor a living will and he has no interest in doing so but discussed CODE status at length including difference between FULL code, DNR-CCA and DNR-CC status. Following discussions about the differences in these status, requested Full Code status. Advanced Care Planning Face to Face Time: 16 minutes. Code Visit Inpatient E&M: 54711 Init Hosp L3 Procedures: 56897 Advncd Care Plan 30 Min
--- NOTE | 2018-12-03 11:42 | HP.PCM_ITS ---
Problem List (1) UTI (urinary tract infection) Status: Acute (2) Encephalopathy acute Status: Acute (3) Pneumonia Status: Acute Qualifiers: Pneumonia type: due to unspecified organism Laterality: unspecified laterality Lung location: unspecified part of lung Qualified Code(s): J18.9 - Pneumonia, unspecified organism (4) Dementia Status: Chronic Qualifiers: Dementia type: unspecified type Dementia behavioral disturbance: without behavioral disturbance Qualified Code(s): F03.90 - Unspecified dementia without behavioral disturbance (5) CKD (chronic kidney disease) stage 3, GFR 30-59 ml/min Status: Chronic (6) Chronic anemia Status: Chronic (7) CVA (cerebral vascular accident) Status: Chronic Qualifiers: CVA mechanism: unspecified Qualified Code(s): I63.9 - Cerebral infarction, unspecified (8) GERD (gastroesophageal reflux disease) Status: Chronic Qualifiers: Esophagitis presence: esophagitis presence not specified Qualified Code(s): K21.9 - Gastro-esophageal reflux disease without esophagitis (9) HLD (hyperlipidemia) Status: Chronic Qualifiers: Hyperlipidemia type: unspecified Qualified Code(s): E78.5 - Hyperlipidemia, unspecified (10) Sjogrens syndrome Status: Chronic Qualifiers: Sjogren's organ involvement: unspecified organ involvement Qualified Code(s): M35.00 - Sicca syndrome, unspecified (11) DM (diabetes mellitus), type 2 Status: Chronic Qualifiers: Diabetes mellitus retirement insulin use: without terminal worker use Diabetes mellitus complication status: with unspecified complications Qualified Code(s): E11.8 - Type 2 diabetes mellitus with unspecified complications History of Present Illness Date of Admission: 12/03/18 Chief Complaint: Confusion The patient is a 83 y/o F w/ PMHx: CKD stage III, CVA with memory impairment, Dementia unclear type without behavioral disturbance, HLD, Diabetes mellitus type II, GERD, Sjogrens syndrome, Chronic normocytic anemia who presents to the [facility] ED on 12/03/18 with worsening confusion per spouse noted to have started the evening prior with patient inability to successfully help divide her medications and take them which she normally can do despite her notable memory impairment with no specific recent fever, chills, nausea, emesis, dysuria, abdominal pain, diarrhea, cough or dyspnea complaints. Work-up in the ED included T 98, heart rate 63, BP 147/62, respiratory rate 17, 98% on room air, CBC with WBC 9.7, hemoglobin 11.4, platelet 202 without shift, CMP with chloride 108, BUN/creatinine 29/1.12, glucose 161, UA remarkable with pending UCx, EKG SR with 1 AVB, CXR with mild increased markings left lung base with blunting of left costophrenic angle, CT head with chronic involutional changes of the brain. In the ED patient administered Rocephin, normal saline. Past Medical History Past Medical History (Chronic Problems): Chronic Problems CVA (cerebral vascular accident) (Chronic) Dementia (Chronic) CKD (chronic kidney disease) stage 3, GFR 30-59 ml/min (Chronic) Chronic anemia (Chronic) Fibromyalgia (Chronic) GERD (gastroesophageal reflux disease) (Chronic) Vertigo (Chronic) Frequent UTI (Chronic) Hearing deficit (Chronic) Otosclerosis (Chronic) HLD (hyperlipidemia) (Chronic) Sjogrens syndrome (Chronic) DM (diabetes mellitus), type 2 (Chronic) Allergies No Known Allergies Allergy (Verified 12/03/18 09:43) Home Medications: Ambulatory Orders Medication Instructions Recorded Omeprazole [Prilosec] 40 mg PO DAILY 01/06/14 B1/B2/B3/B5/B6/Iron/Meth/Choln 118 ml PO DAILY 08/28/16 [Geritol Tonic] Cholecalciferol (Vitamin D3) 1,000 unit PO DAILY 08/28/16 [Vitamin D3] Donepezil HCl 10 mg PO QHS 08/28/16 Glimepiride [Amaryl] 2 mg PO DAILY 08/28/16 Metformin HCl [Glucophage] 500 mg PO DAILY 08/28/16 Cinnamon Bark [Cinnamon] 1,000 mg PO DAILY 11/30/17 Erythromycin Base [Erythromycin] 1 applicatio EACH EYE DAILY 11/30/17 Ramipril 5 mg PO DAILY 11/30/17 traMADol [Ultram] 50 mg PO Q6H PRN 11/30/17 Atorvastatin Calcium [Lipitor] 80 mg PO QHS #30 tab 12/03/17 Clopidogrel Bisulfate [Plavix] 75 mg PO DAILY #30 tab 12/03/17 Glimepiride [Amaryl] 1 mg PO QHS PRN 12/03/18 Loperamide [Imodium] 2 mg PO DAILY 12/03/18 Multivit-Min/FA/Lycopen/Lutein 1 each PO DAILY 12/03/18 [Centrum Silver Tablet] Naproxen Sodium [Aleve] 220 mg PO DAILY 12/03/18 Surgical History: - - Tonsillectomy, hysterectomy, breast lumpectomy. Psychiatric History: No pertinent psych hx A R SPECIALIST History: No pertinent A R SPECIALIST history Lives: Spouse/ Significant Other Smoking Status: Never smoker Tobacco Use: Non-smoker Alcohol: None Drugs: None - *Family History Paternal History Items: Diabetes, Heart Disease Maternal History Items: Diabetes, Dementia Review of Systems Constitutional: Reports: Malaise. Denies: Chills, Fever, Weight Change HEENT: Denies: Head Aches, Sinus Congestion, Sinus Drainage Cardiovascular: Denies: Chest Pain, Palpitations Respiratory: Denies: Cough, Shortness of breath at rest, Sputum production Gastrointestinal: Denies: Abdominal Pain, Nausea, Vomiting Genitourinary: Denies: Dysuria Musculoskeletal: Reports: Back Pain, Joint Pain. Denies: Joint Tenderness Skin: Denies: Rash, Wounds Neurological: Reports: Confusion. Denies: Focal weakness, Numbness, Tingling Psychiatric: Denies: Anxiety, Depression, Homicidal Ideations, Suicidal Ideations Hematologic/ Lymphatic: Reports: Anemia. Denies: Easy Bruising, Easy Bleeding VTE Information - Inpt Only VTE Present on Admission: No VTE Mechan Device Prophylaxis: SCD's VTE Pharm Prophylaxis ordered?: Yes Patient Problems: Active and Suspected Problems Pneumonia (Acute) Encephalopathy acute (Acute) Subjective: Seated upright in the bed, no acute distress, mildly fatigued, yawning frequently, answering questions appropriately. Objective: Physical Examination: General: awake, alert, oriented to self and some recent events, underlying dementia present, remains cooperative, seated upright in bed in no apparent distress. Skin: normal color, turgor, no icterus, cyanosis. HEENT: AT/NC, EOMI, PERRLA, mildly dry MM, no carotid bruits or JVD noted. Lungs: CTA bilaterally, moderate effort, moderate decrease BL bases, no rales, ronchi or wheezing. Heart: Regular rate and rhythm; no gallop, rub audible. Abdomen: soft, overweight, NTTP, ND, normal BS, no HSM. Extremities: no cyanosis, clubbing, or edema. Neurological: patient awake, alert, oriented as noted; cognitive function mildly decreased from baseline, reduced baseline secondary to dementia; pupils equally reactive to light and accomodation; cranial nerves II-XII grossly normal, moving all 4 extremities, no focal deficits, strength moderately globally decreased. Psychiatric: affect appears normal, mildly fatigued, no acute evidence of depressive or anxiety feelings. - Physical Exam Vital Signs Temp Pulse Resp BP Pulse Ox 98.0 F 61 17 117/94 H 98 12/03/18 09:40 12/03/18 11:30 12/03/18 11:30 12/03/18 11:30 12/03/18 11:30 Oxygen Delivery Method Room Air Weight: 188 lb 4.396 oz Body Mass Index (BMI) 29.5 Finger Stick Blood Glucose 167 Laboratory Tests Past 24 Hrs 12/03/18 12/03/18 12/03/18 09:55 09:55 10:25 WBC 9.7 RBC 3.94 L Hgb 11.4 L Hct 35.2 L MCV 89.3 MCH 28.9 MCHC 32.4 RDW 13.0 RDW Differential 41.8 Plt Count 202 MPV 10.8 Immature Gran % (Auto) 0.100 Neut % (Auto) 62.4 Lymph % (Auto) 27.5 [place] % (Auto) 6.2 Eos % (Auto) 3.1 Baso % (Auto) 0.7 Absolute Neuts (auto) 6.1 Absolute Lymphs (auto) 2.67 Total Counted Not Reportable Sodium 141 Potassium 4.4 Chloride 108 H Carbon Dioxide 27.0 Anion Gap 6 BUN 29 H Creatinine 1.12 H Estim Creat Clear Calc 37.66 Est GFR (MDRD) Af Amer 60 Est GFR (MDRD) Non-Af 49 L BUN/Creatinine Ratio 25.9 H Glucose 161 H Calcium 9.3 Total Bilirubin 0.50 AST 22 ALT 22 Alkaline Phosphatase 90 Total Protein 7.0 Albumin 3.4 Globulin 3.6 Albumin/Globulin Ratio 0.9 Urine Color Yellow Urine Clarity Sl. Cloudy Urine pH 7.0 Ur Specific [place] 1.010 Urine Protein Negative Urine Glucose (UA) Normal Urine Ketones Negative Urine Occult Blood 10 H Urine Nitrite Positive H Urine Bilirubin Negative Urine Urobilinogen Normal Ur Leukocyte Esterase 100 H Urine RBC 0 SEEN Urine WBC 5-10 SEEN Ur Squamous Epith Cells 0 SEEN Urine Bacteria 3+ Urine Mucus 0 SEEN Assessment/Plan All Active Problems UTI (urinary tract infection) (Acute) Pneumonia (Acute) Encephalopathy acute (Acute) Nausea and vomiting in adult (Acute) Diabetic neuropathy (Acute) Sleep apnea (Resolved) The patient is a 83 y/o F w/ PMHx: CKD stage III, CVA with memory impairment, D ementia unclear type without behavioral disturbance, HLD, Diabetes mellitus type II, GERD, Sjogrens syndrome, Chronic normocytic anemia who presents to the [facility] ED on 12/03/18 with worsening confusion per spouse noted to have started the evening prior with patient inability to successfully help divide her medications and take them which she normally can perform. (1) Acute Encephalopathy secondary to UTI and Possible PNA (Less suspected): Work-up in the ED included T 98, heart rate 63, BP 147/62, respiratory rate 17, 98% on room air, CBC with WBC 9.7, hemoglobin 11.4, platelet 202 without shift, CMP with chloride 108, BUN/creatinine 29/1.12, glucose 161, UA remarkable with pending UCx, EKG SR with 1 AVB, CXR with mild increased markings left lung base with blunting of left costophrenic angle, CT head with chronic involutional changes of the brain. Will admit to MS, PRN albuterol, maintained on IV Rocephin and Azithromycin, HOB, IS parameters w/ pending sputum cultures and urine antigens. Bld cx x 2 obtained in the ED. Less suspicious for PNA, suspect likely atelectasis, will obtain repeat AM PA and Lateral and de-escalate if appropriate. (2) Hx CVA: Patient deficits primarily memory, no focal neurological deficits otherwise, will continue Plavix, atorvastatin, holding oral diabetic medicine with insulin sliding scale in interim. (3) Chronic normocytic anemia: Admission Hgb 11.4, baseilne appears 10-11, stable, trend. (4) Diabetes mellitus type II: Hold oral home regimen, ADA diet, accu checks w/ ISS. (5) Chronic Kidney Disease Stage III: Admission BUN/Cr 29/1.12, baseline renal function 1.1-1.3, stable, repeat BMP in AM. (6) Hyperlipidemia: Continue home statin regimen. (7) Dementia, Unclear type without behavioral disturbance history:, Cates presentation, will continue home Aricept, patient with a notable family history of Alzheimer's disease however she had onset of issues with memory impairment with stroke in addition. (8) GERD: PPI. (9) DVT prophylaxis: SCDs, renally dosed lovenox. (10) CODE status: Patient spouse and herself do not have healthcare power of e learning developer set up nor a living will and he has no interest in doing so but discussed CODE status at length including difference between FULL code, DNR-CCA and DNR-CC status. Following discussions about the differences in these status, requested Full Code status. Advanced Care Planning Face to Face Time: 16 minutes. Code Visit Inpatient E&M: 90882 Init Hosp L3 Procedures: 02170 Advncd Care Plan 30 Min
[2018-12-03 12:59] LABS: Magnesium 1.8 mg/dL (1.6-2.6)
[2018-12-03] MEDS: 0.9% Normal Saline 1,000 ML 100 ML IV (13:44)
[2018-12-03 14:16] LABS: Bedside Glucose 112 mg/dL (70-110)
[2018-12-03 17:26] LABS: Bedside Glucose 214 mg/dL (70-110)
--- NOTE | 2018-12-03 17:48 | NURSING ---
Patient frequently setting off chair alarm. Not following commands of nursing staff or . requesting for a doctor to come and see the patient.
[2018-12-03] MEDS: LORazepam 2 MG/ML Syringe 0.5 MG IV (18:41)
[2018-12-03] MEDS: 0.9% NaCl Peripheral Flush Adult/Peds IV (18:41)
[2018-12-03] MEDS: guaiFENesin 1,200 MG Tablet 1200 MG PO (21:41)
[2018-12-03] MEDS: traMADol 50 MG Tablet PO (21:41)
[2018-12-03] MEDS: Atorvastatin Calcium 80 MG Tablet PO (21:41)
[2018-12-03] MEDS: QUEtiapine 25 MG Tablet 12.5 MG PO (21:42)
[2018-12-03 21:56] LABS: Bedside Glucose 126 mg/dL (70-110)
[2018-12-04 03:22] VITALS: BP 121/74; PULSE 58; RESP 18; TEMP 36.3; O2SAT 92
--- NOTE | 2018-12-04 05:55 | RAD_ITS ---
STUDY: X-RAY CHEST REASON FOR EXAM: Female, 83 years old. Shortness of breath TECHNIQUE: PA and lateral views of the chest COMPARISON: X-ray chest December 03, 2018 FINDINGS: Mild left base atelectasis and/or small infiltrate is present. There are no significant pleural effusions. There is no pneumothorax. The heart is normal in size. The visualized osseous structures are within normal limits. RAD/Chest PA and Lateral IMPRESSION: Mild left base atelectasis and/or small infiltrate. Otherwise, unremarkable evaluation. Electronically Signed: Fab Loera, at 21:13 EDT Tel , Service support ,
[2018-12-04 07:11] LABS: Bedside Glucose 92 mg/dL (70-110)
[2018-12-04 07:49] LABS: Absolute Lymphocyte Count 2.77 X10^3/ul (0.83-4.51); Absolute Neutrophil Count 3.8 X10^3/uL (2.0-7.7); Basophil# 0.07 X10^3/uL; Basophil% 0.9 % (0-1); Eosinophil# 0.44 X10^3/uL; Eosinophils% 5.6 % (0-5); Hematocrit 32.6 % (37-47); Hemoglobin 10.7 g/dl (12.0-15.0); Lymphocyte # 2.77 X10^3/ul (4.0); Lymphocyte % 35.3 % (19-41); Mean Corp Hgb Conc 32.8 g/gl (32-36); Mean Corpuscular Hgb 29.2 pg (27.0-32.0); Mean Corpuscular Volume 88.8 fL (81-99); Mean Platelet Vol. 10.8 fl (6.2-12.0); Monocyte% 8.9 % (0-10); Neutrophil # 3.84 X10^3/uL (2.7-7.7); Platelet Count 197 K/mm3 (150-450); RBC Distribution Width SD 40.3 fl (35.1-43.9); Red Blood Count 3.67 M/mm3 (4.2-5.4); White Blood Count 7.8 K/mm3 (4.4-11.0)
[2018-12-04 07:53] LABS: POSITIVE COUNT NO; POSITIVE DIFFERENTIAL NO; POSITIVE MORPHOLOGY NO
[2018-12-04 08:13] LABS: Anion Gap 5 (5-15); BUN 22 mg/dL (7-18); BUN/Creat Ratio 20.8 RATIO (10-20); Calcium,Total 8.9 mg/dL (8.5-10.1); Chloride 112 mmol/L (98-107); Creatinine, Serum 1.06 mg/dL (0.55-1.02); EST Glomerular Filtration Rate 53 mL/min (>60); Est Glom Filt Rate - Afr Amer 64 mL/min (>60); Estimated Creatinine Clearance 39.79 ml/min; Glucose 87 mg/dL (74-106); Potassium 3.8 mmol/L (3.5-5.1); Sodium Level 143 mmol/L (136-145)
[2018-12-04 09:47] VITALS: BP 132/53; PULSE 67; RESP 18; TEMP 36.6; O2SAT 94
--- NOTE | 2018-12-04 09:49 | PCM.PN.HOSP ---
Patient Problems: Active and Suspected Problems Pneumonia (Acute) Encephalopathy acute (Acute) Subjective: Patient with no acute events overnight per self and per nursing report however she does have notable dementia and is not the best historian. Patient did have some mild agitation the day prior and low-dose Seroquel was initiated in the evening. Patient denies any acute complaint at this time with stable vitals and stable appearing follow-up labs. Patient denies fevers, chills, nausea, emesis, abdominal pain, chest pain or dyspnea. Objective: Physical Examination: General: awake, alert, oriented to self and getting some recent appropriate information but, underlying dementia present, cooperative, seated upright in bed in no apparent distress. Skin: normal color, turgor, no icterus, cyanosis. HEENT: AT/NC, EOMI, PERRLA, MMM. Lungs: CTA bilaterally, moderate effort, moderate decrease BL bases, no rales, ronchi or wheezing. Heart: Regular rate and rhythm; no gallop, rub audible. Abdomen: soft, overweight, NTTP, ND, normal BS, no HSM. Extremities: no cyanosis, clubbing, or edema. Neurological: patient awake, alert, oriented as noted; cognitive function per spouse decreased from baseline, but not present this AM for repeat evaluation; pupils equally reactive to light and accomodation; cranial nerves II-XII grossly normal, moving all 4 extremities, no focal deficits, strength moderately globally decreased. Psychiatric: affect appears normal, no acute evidence of depressive or anxiety feelings. Vitals/I&O's: Vital Signs Temp Pulse Resp BP Pulse Ox 97.4 F L 58 L 18 121/74 H 92 12/04/18 03:22 12/04/18 03:22 12/04/18 03:22 12/04/18 03:22 12/04/18 03:22 Oxygen Delivery Method Room Air Weight: 189 lb 8.009 oz Body Mass Index (BMI) 29.7 Finger Stick Blood Glucose 167 Intake and Output for Last 24 Hours 12/02/18 12/03/18 12/04/18 23:59 23:59 23:59 Intake Total 595 / 595 950 / 950 Output Total 800 / 800 300 / 300 Balance -205 / -205 650 / 650 Microbiology Past 72 Hours 12/03/18 10:25 Urine, Random Legionella Antigen - Final 12/03/18 10:25 Urine, Random Streptococcus pneumoniae Antigen (M - Final Laboratory Results 12/03/18 09:55: WBC 9.7, RBC 3.94 L, Hgb 11.4 L, Hct 35.2 L, MCV 89.3, MCH 28.9, MCHC 32.4, RDW 13.0, RDW Differential 41.8, Plt Count 202, MPV 10.8, Immature Gran % (Auto) 0.100, Neut % (Auto) 62.4, Lymph % (Auto) 27.5, [place] % (Auto) 6.2, Eos % (Auto) 3.1, Baso % (Auto) 0.7, Absolute Neuts (auto) 6.1, Absolute Lymphs (auto) 2.67, Total Counted Not Reportable 12/03/18 09:55: Sodium 141, Potassium 4.4, Chloride 108 H, Carbon Dioxide 27.0, Anion Gap 6, BUN 29 H, Creatinine 1.12 H, Estim Creat Clear Calc 37.66, Est GFR (MDRD) Af Amer 60, Est GFR (MDRD) Non-Af 49 L, BUN/Creatinine Ratio 25.9 H, Glucose 161 H, Calcium 9.3, Total Bilirubin 0.50, AST 22, ALT 22, Alkaline Phosphatase 90, Total Protein 7.0, Albumin 3.4, Globulin 3.6, Albumin/Globulin Ratio 0.9 12/03/18 09:55: Magnesium 1.8 12/03/18 10:25: Urine Color Yellow, Urine Clarity Sl. Cloudy, Urine pH 7.0, Ur Specific [place] 1.010, Urine Protein Negative, Urine Glucose (UA) Normal, Urine Ketones Negative, Urine Occult Blood 10 H, Urine Nitrite Positive H, Urine Bilirubin Negative, Urine Urobilinogen Normal, Ur Leukocyte Esterase 100 H, Urine RBC 0 SEEN, Urine WBC 5-10 SEEN, Ur Squamous Epith Cells 0 SEEN, Urine Bacteria 3+, Urine Mucus 0 SEEN 12/03/18 13:41: POC Glucose 112 H 12/03/18 17:18: POC Glucose 214 H 12/03/18 21:49: POC Glucose 126 H 12/04/18 06:49: POC Glucose 92 12/04/18 07:09: WBC 7.8, RBC 3.67 L, Hgb 10.7 L, Hct 32.6 L, MCV 88.8, MCH 29.2, MCHC 32.8, RDW 13.0, RDW Differential 40.3, Plt Count 197, MPV 10.8, Immature Gran % (Auto) 0.300, Neut % (Auto) 49.0, Lymph % (Auto) 35.3, [place] % (Auto) 8.9, Eos % (Auto) 5.6 H, Baso % (Auto) 0.9, Absolute Neuts (auto) 3.8, Absolute Lymphs (auto) 2.77, Total Counted Not Reportable 12/04/18 07:09: Sodium 143, Potassium 3.8, Chloride 112 H, Carbon Dioxide 26.0, Anion Gap 5, BUN 22 H, Creatinine 1.06 H, Estim Creat Clear Calc 39.79, Est GFR (MDRD) Af Amer 64, Est GFR (MDRD) Non-Af 53 L, BUN/Creatinine Ratio 20.8 H, Glucose 87, Calcium 8.9 Current Medications Acetaminophen (Tylenol) 650 mg PO Q6H PRN PRN PRN Reason: Non-cardiac pain (mod-severe) Al Hydroxide/Mg Hydroxide (Mylanta Ii) 15 - 30 ml PO Q4H PRN PRN PRN Reason: INDIGESTION Albuterol Sulfate (Ventolin Aerosols) 2.5 mg INHALATION Q2H PRN PRN PRN Reason: dyspnea, wheezing Atorvastatin Calcium (Lipitor) 80 mg PO QHS [facility] Last Admin: 12/03/18 21:41 Dose: 80 mg Clopidogrel Bisulfate (Plavix) 75 mg PO DAILY [facility] Dextrose (D50w Syringe) 0 gm IV X1 PRN; Protocol PRN Reason: Hypoglycemia Donepezil HCl (Aricept) 10 mg PO DAILY [facility] Enoxaparin Sodium (Lovenox) 30 mg SC DAILY@1000 [facility] Erythromycin () 1 applic EACH EYE DAILY [facility] Glucagon () 1 mg IM .X1 PRN PRN Reason: Hypoglycemia Guaifenesin (Mucinex) 1,200 mg PO BID [facility] Last Admin: 12/03/18 21:41 Dose: 1,200 mg Hydralazine HCl (Apresoline Iv) 10 mg IV Q4H PRN PRN PRN Reason: SBP > 160 Azithromycin 500 mg/ Dextrose 255 mls @ 250 mls/hr IV Q24 [facility] Stop: 12/05/18 11:02 Last Admin: 12/03/18 13:44 Dose: 250 mls/hr Ceftriaxone Sodium (Rocephin) 1 gm in 50 mls @ 100 mls/hr IV Q24H [facility] Insulin Human Lispro (Humalog Kwikpen (Bkc)) 0 unit SQ ACHS [facility]; Protocol Last Admin: 12/04/18 06:52 Dose: Not Given Loperamide HCl (Imodium) 2 mg PO DAILY [facility] Melatonin (Melatonin) 3 mg PO QHS PRN PRN PRN Reason: INSOMNIA Multivitamins/Minerals (Multivitamin With Minerals) 1 tablet PO DAILY@0800 [facility] Ondansetron HCl (Zofran) 4 mg IV Q8H PRN PRN PRN Reason: NAUSEA/VOMITING Pantoprazole Sodium (Protonix) 40 mg PO DAILY [facility] Quetiapine Fumarate (Seroquel) 12.5 mg PO QHS [facility] Last Admin: 12/03/18 21:42 Dose: 12.5 mg Ramipril (Altace) 5 mg PO DAILY [facility] Sodium Chloride () 5 - 15 ml IV UD PRN PRN Reason: SALINE FLUSH Last Admin: 12/03/18 18:41 Dose: 10 ml Tramadol HCl (Ultram) 50 mg PO Q6H PRN PRN Reason: PAIN Last Admin: 12/03/18 21:41 Dose: 50 mg Medical Necessity - Tobacco Use Smoking Status: Never smoker Tobacco Use: Non-smoker Assessment/Plan All Active Problems UTI (urinary tract infection) (Acute) Pneumonia (Acute) Encephalopathy acute (Acute) Nausea and vomiting in adult (Acute) Diabetic neuropathy (Acute) Sleep apnea (Resolved) The patient is a 83 y/o F w/ PMHx: CKD stage III, CVA with memory impairment, Dementia unclear 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 (1) Acute Encephalopathy secondary to UTI and Possible PNA (Less suspected): Work-up in the ED included T 98, heart rate 63, BP 147/62, respiratory rate 17, 98% on room air, CBC with WBC 9.7, hemoglobin 11.4, platelet 202 without shift, CMP with chloride 108, BUN/creatinine 29/1.12, glucose 161, UA remarkable with pending UCx, EKG SR with 1 AVB, CXR with mild increased markings left lung base with blunting of left costophrenic angle, CT head with chronic involutional changes of the brain. Admitted to [place], PRN albuterol, maintained on IV Rocephin and Azithromycin, HOB, IS parameters w/ pending sputum cultures and negative urine antigens. Less suspicious for PNA, suspect likely atelectasis, pending AM repeat AM PA and Lateral and de-escalate if appropriate. PT, OT, CM consulted for discharge planning. (2) Hx CVA: Patient deficits primarily memory, no focal neurological deficits otherwise, will continue Plavix, atorvastatin, holding oral diabetic medicine with insulin sliding scale in interim. (3) Chronic normocytic anemia: Admission Hgb 11.4, repeat 12/04/18 Hgb 10.7, baseline appears 10-11, stable, trend. (4) Diabetes mellitus type II: Hold oral home regimen, ADA diet, accu checks w/ ISS. (5) Chronic Kidney Disease Stage III: Admission BUN/Cr 29/1.12, baseline renal function 1.1-1.3, stable, repeat BMP in AM. (6) Hyperlipidemia: Continue home statin regimen. (7) Dementia, Unclear type without behavioral disturbance history: Complicates presentation, will continue home Aricept, patient with a notable family history of Alzheimer's disease however she had onset of issues with memory impairment with stroke in addition. (8) GERD: PPI. (9) DVT prophylaxis: SCDs, renally dosed lovenox. (10) CODE status: Full Code. Code Visit Inpatient E&M: 16330 Subs Hosp L2
[2018-12-04] MEDS: Pantoprazole Sodium 40 MG Tablet PO (09:50)
[2018-12-04] MEDS: Multivitamins,Ther W-Minerals Tablet 1 TABLET PO (09:50)
[2018-12-04] MEDS: Ceftriaxone 1 GM/50 ML BAG IV (09:50)
[2018-12-04] MEDS: Loperamide 2 MG Capsule PO (09:51)
[2018-12-04] MEDS: Donepezil HCl 10 MG Tablet PO (09:51)
[2018-12-04] MEDS: Enoxaparin 30 MG/0.3 ML Syringe SC (09:52)
--- NOTE | 2018-12-04 09:52 | PN_ITS ---
Patient Problems: Active and Suspected Problems Pneumonia (Acute) Encephalopathy acute (Acute) Subjective: Patient with no acute events overnight per self and per nursing report however she does have notable dementia and is not the best historian. Patient did have some mild agitation the day prior and low-dose Seroquel was initiated in the evening. Patient denies any acute complaint at this time with stable vitals and stable appearing follow-up labs. Patient denies fevers, chills, nausea, emesis, abdominal pain, chest pain or dyspnea. Objective: Physical Examination: General: awake, alert, oriented to self and getting some recent appropriate information but, underlying dementia present, cooperative, seated upright in bed in no apparent distress. Skin: normal color, turgor, no icterus, cyanosis. HEENT: AT/NC, EOMI, PERRLA, MMM. Lungs: CTA bilaterally, moderate effort, moderate decrease BL bases, no rales, ronchi or wheezing. Heart: Regular rate and rhythm; no gallop, rub audible. Abdomen: soft, overweight, NTTP, ND, normal BS, no HSM. Extremities: no cyanosis, clubbing, or edema. Neurological: patient awake, alert, oriented as noted; cognitive function per spouse decreased from baseline, but not present this AM for repeat evaluation; pupils equally reactive to light and accomodation; cranial nerves II-XII grossly normal, moving all 4 extremities, no focal deficits, strength moderately globally decreased. Psychiatric: affect appears normal, no acute evidence of depressive or anxiety feelings. Vitals/I&O's: Vital Signs Temp Pulse Resp BP Pulse Ox 97.4 F L 58 L 18 121/74 H 92 12/04/18 03:22 12/04/18 03:22 12/04/18 03:22 12/04/18 03:22 12/04/18 03:22 Oxygen Delivery Method Room Air Weight: 189 lb 8.009 oz Body Mass Index (BMI) 29.7 Finger Stick Blood Glucose 167 Intake and Output for Last 24 Hours 12/02/18 12/03/18 12/04/18 23:59 23:59 23:59 Intake Total 595 / 595 950 / 950 Output Total 800 / 800 300 / 300 Balance -205 / -205 650 / 650 Microbiology Past 72 Hours 12/03/18 10:25 Urine, Random Legionella Antigen - Final 12/03/18 10:25 Urine, Random Streptococcus pneumoniae Antigen (M - Final Laboratory Results 12/03/18 09:55: WBC 9.7, RBC 3.94 L, Hgb 11.4 L, Hct 35.2 L, MCV 89.3, MCH 28.9, MCHC 32.4, RDW 13.0, RDW Differential 41.8, Plt Count 202, MPV 10.8, Immature Gran % (Auto) 0.100, Neut % (Auto) 62.4, Lymph % (Auto) 27.5, [place] % (Auto) 6.2, Eos % (Auto) 3.1, Baso % (Auto) 0.7, Absolute Neuts (auto) 6.1, Absolute Lymphs (auto) 2.67, Total Counted Not Reportable 12/03/18 09:55: Sodium 141, Potassium 4.4, Chloride 108 H, Carbon Dioxide 27.0, Anion Gap 6, BUN 29 H, Creatinine 1.12 H, Estim Creat Clear Calc 37.66, Est GFR (MDRD) Af Amer 60, Est GFR (MDRD) Non-Af 49 L, BUN/Creatinine Ratio 25.9 H, Glucose 161 H, Calcium 9.3, Total Bilirubin 0.50, AST 22, ALT 22, Alkaline Phosphatase 90, Total Protein 7.0, Albumin 3.4, Globulin 3.6, Albumin/Globulin Ratio 0.9 12/03/18 09:55: Magnesium 1.8 12/03/18 10:25: Urine Color Yellow, Urine Clarity Sl. Cloudy, Urine pH 7.0, Ur Specific [place] 1.010, Urine Protein Negative, Urine Glucose (UA) Normal, Urine Ketones Negative, Urine Occult Blood 10 H, Urine Nitrite Positive H, Urine Bilirubin Negative, Urine Urobilinogen Normal, Ur Leukocyte Esterase 100 H, Urine RBC 0 SEEN, Urine WBC 5-10 SEEN, Ur Squamous Epith Cells 0 SEEN, Urine Bacteria 3+, Urine Mucus 0 SEEN 12/03/18 13:41: POC Glucose 112 H 12/03/18 17:18: POC Glucose 214 H 12/03/18 21:49: POC Glucose 126 H 12/04/18 06:49: POC Glucose 92 12/04/18 07:09: WBC 7.8, RBC 3.67 L, Hgb 10.7 L, Hct 32.6 L, MCV 88.8, MCH 29.2, MCHC 32.8, RDW 13.0, RDW Differential 40.3, Plt Count 197, MPV 10.8, Immature Gran % (Auto) 0.300, Neut % (Auto) 49.0, Lymph % (Auto) 35.3, [place] % (Auto) 8.9, Eos % (Auto) 5.6 H, Baso % (Auto) 0.9, Absolute Neuts (auto) 3.8, Absolute Lymphs (auto) 2.77, Total Counted Not Reportable 12/04/18 07:09: Sodium 143, Potassium 3.8, Chloride 112 H, Carbon Dioxide 26.0, Anion Gap 5, BUN 22 H, Creatinine 1.06 H, Estim Creat Clear Calc 39.79, Est GFR (MDRD) Af Amer 64, Est GFR (MDRD) Non-Af 53 L, BUN/Creatinine Ratio 20.8 H, Glucose 87, Calcium 8.9 Current Medications Acetaminophen (Tylenol) 650 mg PO Q6H PRN PRN PRN Reason: Non-cardiac pain (mod-severe) Al Hydroxide/Mg Hydroxide (Mylanta Ii) 15 - 30 ml PO Q4H PRN PRN PRN Reason: INDIGESTION Albuterol Sulfate (Ventolin Aerosols) 2.5 mg INHALATION Q2H PRN PRN PRN Reason: dyspnea, wheezing Atorvastatin Calcium (Lipitor) 80 mg PO QHS [facility] Last Admin: 12/03/18 21:41 Dose: 80 mg Clopidogrel Bisulfate (Plavix) 75 mg PO DAILY [facility] Dextrose (D50w Syringe) 0 gm IV X1 PRN; Protocol PRN Reason: Hypoglycemia Donepezil HCl (Aricept) 10 mg PO DAILY [facility] Enoxaparin Sodium (Lovenox) 30 mg SC DAILY@1000 [facility] Erythromycin () 1 applic EACH EYE DAILY [facility] Glucagon () 1 mg IM .X1 PRN PRN Reason: Hypoglycemia Guaifenesin (Mucinex) 1,200 mg PO BID [facility] Last Admin: 12/03/18 21:41 Dose: 1,200 mg Hydralazine HCl (Apresoline Iv) 10 mg IV Q4H PRN PRN PRN Reason: SBP > 160 Azithromycin 500 mg/ Dextrose 255 mls @ 250 mls/hr IV Q24 [facility] Stop: 12/05/18 11:02 Last Admin: 12/03/18 13:44 Dose: 250 mls/hr Ceftriaxone Sodium (Rocephin) 1 gm in 50 mls @ 100 mls/hr IV Q24H [facility] Insulin Human Lispro (Humalog Kwikpen (Bkc)) 0 unit SQ ACHS [facility]; Protocol Last Admin: 12/04/18 06:52 Dose: Not Given Loperamide HCl (Imodium) 2 mg PO DAILY [facility] Melatonin (Melatonin) 3 mg PO QHS PRN PRN PRN Reason: INSOMNIA Multivitamins/Minerals (Multivitamin With Minerals) 1 tablet PO DAILY@0800 [facility] Ondansetron HCl (Zofran) 4 mg IV Q8H PRN PRN PRN Reason: NAUSEA/VOMITING Pantoprazole Sodium (Protonix) 40 mg PO DAILY [facility] Quetiapine Fumarate (Seroquel) 12.5 mg PO QHS [facility] Last Admin: 12/03/18 21:42 Dose: 12.5 mg Ramipril (Altace) 5 mg PO DAILY [facility] Sodium Chloride () 5 - 15 ml IV UD PRN PRN Reason: SALINE FLUSH Last Admin: 12/03/18 18:41 Dose: 10 ml Tramadol HCl (Ultram) 50 mg PO Q6H PRN PRN Reason: PAIN Last Admin: 12/03/18 21:41 Dose: 50 mg Medical Necessity - Tobacco Use Smoking Status: Never smoker Tobacco Use: Non-smoker Assessment/Plan All Active Problems UTI (urinary tract infection) (Acute) Pneumonia (Acute) Encephalopathy acute (Acute) Nausea and vomiting in adult (Acute) Diabetic neuropathy (Acute) Sleep apnea (Resolved) The patient is a 83 y/o F w/ PMHx: CKD stage III, CVA with memory impairment, Dementia unclear type without behavioral disturbance, HLD, Diabetes mellitus type II, GERD, Sjogrens syndrome, Chronic normocytic anemia who presents to the [facility] ED on 12/03/18 with worsening confusion per spouse noted to have started the evening prior with patient inability to successfully help divide her medications and take them which she normally can perform. (1) Acute Encephalopathy secondary to UTI and Possible PNA (Less suspected): Work-up in the ED included T 98, heart rate 63, BP 147/62, respiratory rate 17, 98% on room air, CBC with WBC 9.7, hemoglobin 11.4, platelet 202 without shift, CMP with chloride 108, BUN/creatinine 29/1.12, glucose 161, UA remarkable with pending UCx, EKG SR with 1 AVB, CXR with mild increased markings left lung base with blunting of left costophrenic angle, CT head with chronic involutional changes of the brain. Admitted to [place], PRN albuterol, maintained on IV Rocephin and Azithromycin, HOB, IS parameters w/ pending sputum cultures and negative urine antigens. Less suspicious for PNA, suspect likely atelectasis, pending AM repeat AM PA and Lateral and de-escalate if appropriate. PT, OT, CM consulted for discharge planning. (2) Hx CVA: Patient deficits primarily memory, no focal neurological deficits otherwise, will continue Plavix, atorvastatin, holding oral diabetic medicine with insulin sliding scale in interim. (3) Chronic normocytic anemia: Admission Hgb 11.4, repeat 12/04/18 Hgb 10.7, baseline appears 10-11, stable, trend. (4) Diabetes mellitus type II: Hold oral home regimen, ADA diet, accu checks w/ ISS. (5) Chronic Kidney Disease Stage III: Admission BUN/Cr 29/1.12, baseline renal function 1.1-1.3, stable, repeat BMP in AM. (6) Hyperlipidemia: Continue home statin regimen. (7) Dementia, Unclear type without behavioral disturbance history: Complicates presentation, will continue home Aricept, patient with a notable family history of Alzheimer's disease however she had onset of issues with memory impairment with stroke in addition. (8) GERD: PPI. (9) DVT prophylaxis: SCDs, renally dosed lovenox. (10) CODE status: Full Code. Code Visit Inpatient E&M: 16733 Subs Hosp L2
[2018-12-04] MEDS: Clopidogrel Bisulfate 75 MG Tablet PO (09:53)
[2018-12-04] MEDS: Ramipril 5 MG Capsule PO (09:53)
[2018-12-04] MEDS: guaiFENesin 1,200 MG Tablet 1200 MG PO ×2 (09:53→21:16)
[2018-12-04] MEDS: Insulin Lispro 100 UNIT/ML INSULN.PEN SQ (11:49)
[2018-12-04 12:01] LABS: Bedside Glucose 241 mg/dL (70-110)
[2018-12-04] MEDS: traMADol 50 MG Tablet PO (13:59)
[2018-12-04 14:10] VITALS: BP 154/99; PULSE 61; RESP 16; TEMP 36.7; O2SAT 96
--- NOTE | 2018-12-04 14:31 | CASEMGMT ---
Addendum entered by Stephy Awan 12/04/18 14:52: states they live in a split-level home w/stairs on the rails and that pt is able to navigate them well. Original Note: RN CM VEHICLE UPHOLSTERER HOWARD to room for initial transition planning/care coordination assessment. @ bedside. Pt sleeping. Pt w/hx dementia/confusion. RN HOWARD introduced self and role at [facility]. voices understanding and consents to assessment at this time. Care providers, pharmacy, and demographics verified at this time. PCP: Janeth Specialists: Laya-neurology, Lopez--aerospace products sales engineer/for osteo-arthritis, Ilene-podiatry, Freya--urology. Preferred Pharmacy: [facility] Insurance: [facility], [employer] Prescription Benefit: [employer] Living Will/HPOA: states pt does not have either. LNOK: . 2 sons and a daughter. Living Arrangements: Lives with her . states their daughter is currently living with them as well. states pt is usually able to bath and dress herself, although he does assist as needed. He also states pt is able to do some of the laundry. states he does most of the home mgmt tasks, prepares meals, medication mgmt/appts, and manages finances. Transportation: DME: Has the following DME: rails/grab bars, hand held shower. CPAP--Was @ [facility] but has switched to [facility]. Also has a cane and walker but does not use. sates no need for further DME at this time. HHC/SNF: No history of either. states he wishes to take pt home and does not want HHC, stating, neither of us want anyone coming into the home. states they have long-term care insurance and he has access to further help if needed. He states they are managing well @ home and we don't need any of that yet. We're not there yet'. PT/OT evals pending and aware they may give recommendations for further therapy. He states he does not feel that pt needs that at this time. made aware if he feels, in the future, that pt would benefit from HHC or therapy, to talk with PCP about this. voices understanding. CM to follow for any further discharge planning/needs. voices no further concerns/needs at this time. Advised to ask for CM if any further questions/concerns/needs arise. Voices understanding. PLAN: Home with spousal support. Sina FRANCO RN CM
[2018-12-04 17:05] LABS: Bedside Glucose 120 mg/dL (70-110)
[2018-12-04 19:46] VITALS: BP 133/80; PULSE 75; RESP 16; TEMP 37; O2SAT 95
[2018-12-04] MEDS: Atorvastatin Calcium 80 MG Tablet PO (21:16)
[2018-12-04] MEDS: QUEtiapine 25 MG Tablet 12.5 MG PO (21:16)
[2018-12-04 22:36] LABS: Bedside Glucose 179 mg/dL (70-110)
[2018-12-05 02:32] VITALS: BP 134/74; PULSE 67; RESP 16; TEMP 36.4; O2SAT 97
--- NOTE | 2018-12-05 06:28 | DCINST_ITS ---
- Discharge Diagnoses Current Active Problems: Current Active and Chronic Problems (1) Acute Encephalopathy secondary Suspected PNA, initial UTI concerns (UCx w/ < 100,000 GNR LF) (2) Hx CVA (3) Chronic normocytic anemia (4) Diabetes mellitus type II (5) Chronic Kidney Disease Stage III (6) Hyperlipidemia (7) Dementia, Unclear type without behavioral disturbance history (8) GERD You will use the following diet at home:: Regular Your food should be the consistency of: Regular Your liquids should be the consistency of: Regular/Thin Discharge Activity: Return to Normal Activity May resume sexual activity in: No Restrictions Weight Bearing Status: Weight bearing as tolerated Call your doctor if you observe: Fever of 101 or Higher, Inability to urinate, Inability to have a bowel movement, Shortness of breath, Dizziness, Fainting spells, Chest pain, Uncontrolled pain Instructions: What Is Pneumonia?, Preventing Pneumonia, Pneumonia Treatment Allergies/Adverse Reactions: Allergies No Known Allergies Allergy (Verified 12/03/18 09:43) Medications to take at Discharge Omeprazole [Prilosec] 40 mg PO DAILY 01/06/14 B1/B2/B3/B5/B6/Iron/Meth/Choln [Geritol Tonic] 118 ml PO DAILY 08/28/16 Cholecalciferol (Vitamin D3) [Vitamin D3] 1,000 unit PO DAILY 08/28/16 Donepezil HCl 10 mg PO QHS 08/28/16 Glimepiride [Amaryl] 2 mg PO DAILY 08/28/16 Metformin HCl [Glucophage] 500 mg PO DAILY 08/28/16 Cinnamon Bark [Cinnamon] 1,000 mg PO DAILY 11/30/17 Erythromycin Base [Erythromycin] 1 applicatio EACH EYE DAILY 11/30/17 Ramipril 5 mg PO DAILY 11/30/17 traMADol [Ultram] 50 mg PO Q6H PRN 11/30/17 Atorvastatin Calcium [Lipitor] 80 mg PO QHS #30 tab 12/03/17 Clopidogrel Bisulfate [Plavix] 75 mg PO DAILY #30 tab 12/03/17 Glimepiride [Amaryl] 1 mg PO QHS PRN 12/03/18 Loperamide [Imodium] 2 mg PO DAILY 12/03/18 Multivit-Min/FA/Lycopen/Lutein [Centrum Silver Tablet] 1 each PO DAILY 12/03/18 Naproxen Sodium [Aleve] 220 mg PO DAILY 12/03/18 Albuterol IH (ProAir) [Proair Hfa] 1 - 2 puff INHALATION Q4H PRN PRN #1 inhaler 12/05/18 Cefdinir [Omnicef [equiv]] 300 mg PO Q12H #12 capsule 12/05/18 Guaifenesin [Mucinex] 1,200 mg PO BID #10 tablet 12/05/18 The following prescriptions were given: Albuterol IH (ProAir) [Proair Hfa] 1 - 2 puff INHALATION Q4H PRN PRN #1 inhaler PRN Reason: dyspnea, wheezing Cefdinir [Omnicef [equiv]] 300 mg PO Q12H #12 capsule Guaifenesin [Mucinex] 1,200 mg PO BID #10 tablet Primary Care Physician: Mello Fowler DO [Primary Care Provider] - Please follow up with your Primary Care Physician in: Follow-up within 3-5 days to review admission. Test Results: Test results from this visit will be discussed in further detail at your follow- up appointment, if applicable. Proposed Discharge Date: 12/05/18
--- NOTE | 2018-12-05 06:29 | PCM.DC.SUM ---
Discharge Date and Diagnosis - Problem List Patient Problems: Active and Suspected Problems Pneumonia (Acute) Encephalopathy acute (Acute) Date of Admission: 12/03/18 Date of Discharge: 12/05/18 - Primary Discharge Diagnosis Active and Suspected Problems (1) Acute Encephalopathy secondary Suspected PNA, initial UTI concerns (UCx w/ < 100,000 GNR LF) (2) Hx CVA (3) Chronic normocytic anemia (4) Diabetes mellitus type II (5) Chronic Kidney Disease Stage III (6) Hyperlipidemia (7) Dementia, Unclear type without behavioral disturbance history (8) GERD - Secondary Discharge Diagnosis Chronic Problems CVA (cerebral vascular accident) (Chronic) Dementia (Chronic) CKD (chronic kidney disease) stage 3, GFR 30-59 ml/min (Chronic) Chronic anemia (Chronic) Fibromyalgia (Chronic) GERD (gastroesophageal reflux disease) (Chronic) Vertigo (Chronic) Frequent UTI (Chronic) Hearing deficit (Chronic) Otosclerosis (Chronic) HLD (hyperlipidemia) (Chronic) Sjogrens syndrome (Chronic) DM (diabetes mellitus), type 2 (Chronic) Hospital Course and Treatment Operations: None Procedures: EKG Summary of Care Provided: The patient is a 83 y/o F w/ PMHx: CKD stage III, CVA with memory impairment, Dementia unclear type without behavioral disturbance, HLD, Diabetes mellitus type II, GERD, Sjogrens syndrome, Chronic normocytic anemia who presented to the [facility] ED on 12/03/18 with worsening confusion per spouse noted to have started the evening prior with patient inability to successfully help divide her medications and take them which she normally can perform. Work-up in the ED included T 98, heart rate 63, BP 147/62, respiratory rate 17, 98% on room air, CBC with WBC 9.7, hemoglobin 11.4, platelet 202 without shift, CMP with chloride 108, BUN/creatinine 29/1.12, glucose 161, UA remarkable with pending UCx, EKG SR with 1 AVB, CXR with mild increased markings left lung base with blunting of left costophrenic angle, CT head with chronic involutional changes of the brain. Admitted to [place], PRN albuterol, maintained on IV Rocephin and Azithromycin, HOB, IS parameters w/ inability to obtain sputum cultures and negative urine antigens. Initially less suspicious for PNA, suspected likely atelectasis, repeat 5/22/19 AM repeat chest x-ray with mild left base atelectasis and/or small infiltrate with urine culture noting a gram-negative lester lactose leak gang supervisor however colony-forming units of only 50,000-80,000. Patient clinically improved, more calm after 24 hours and compliant with taking medications. Patient remained afebrile with stable vital signs. Patient discharged home in improved condition with plan to follow-up with primary care physician within 3 to 5 days on completion antibiotic therapy for possible pneumonia. DAY OF DISCHARGE PROGRESS NOTE: Subjective: Patient without acute event overnight per self and nursing report. Patient more calm and compliant with no agitation. Patient denies fever, chills, nausea, emesis, abdominal pain, chest pain or dyspnea. Patient agreeable to discharge to home with her who is her main caregiver. Patient will be discharged with follow-up with primary care physician within 3-5 days. Objective: T 97.6, heart rate 67, BP 134/74, respiratory rate 16, 97% on room air. Physical Examination: General: awake, alert, oriented to self, more interactive, following directions better, underlying dementia present, cooperative, seated upright in bedside chair. Skin: normal color, turgor, no icterus, cyanosis. HEENT: AT/NC, EOMI, PERRLA, MMM. Lungs: CTA bilaterally, moderate effort, moderate decrease BL bases, no rales, ronchi or wheezing. Heart: Regular rate and rhythm; no gallop, rub audible. Abdomen: soft, overweight, NTTP, ND, normal BS, no HSM. Extremities: no cyanosis, clubbing, or edema. Neurological: patient awake, alert, oriented as noted; cognitive function appears improved, baseline underlying dementia; pupils equally reactive to light and accomodation; cranial nerves II-XII grossly normal, moving all 4 extremities, no focal deficits, strength improved, mildly to moderately globally decreased. Psychiatric: affect appears normal, no acute evidence of depressive or anxiety feelings. Assessment and Plan: Please see hospital summary above. Patient Problems: Active and Suspected Problems Pneumonia (Acute) Encephalopathy acute (Acute) - Physical Exam Vital Signs Temp Pulse Resp BP Pulse Ox 97.6 F L 67 16 134/74 H 97 12/05/18 02:32 12/05/18 02:32 12/05/18 02:32 12/05/18 02:32 12/05/18 02:32 Oxygen Delivery Method Room Air Weight: 189 lb 8.009 oz Body Mass Index (BMI) 29.7 Finger Stick Blood Glucose 167 Intake and Output for Last 24 Hours 12/03/18 12/04/18 12/05/18 23:59 23:59 23:59 Intake Total 595 / 595 1550 / 1550 100 / 100 Output Total 800 / 800 300 / 300 100 / 100 Balance -205 / -205 1250 / 1250 0 / 0 Microbiology Past 72 Hours 12/03/18 10:25 Urine Culture - Preliminary Urine Catheter - Catheter GNR lactose leak gang supervisor 12/03/18 10:25 Legionella Antigen - Final Urine, Random 12/03/18 10:25 Streptococcus pneumoniae Antigen (M - Final Urine, Random Laboratory Tests Past 24 Hrs 12/04/18 12/04/18 07:09 07:09 WBC 7.8 RBC 3.67 L Hgb 10.7 L Hct 32.6 L MCV 88.8 MCH 29.2 MCHC 32.8 RDW 13.0 RDW Differential 40.3 Plt Count 197 MPV 10.8 Immature Gran % (Auto) 0.300 Neut % (Auto) 49.0 Lymph % (Auto) 35.3 [place] % (Auto) 8.9 Eos % (Auto) 5.6 H Baso % (Auto) 0.9 Absolute Neuts (auto) 3.8 Absolute Lymphs (auto) 2.77 Total Counted Not Reportable Sodium 143 Potassium 3.8 Chloride 112 H Carbon Dioxide 26.0 Anion Gap 5 BUN 22 H Creatinine 1.06 H Estim Creat Clear Calc 39.79 Est GFR (MDRD) Af Amer 64 Est GFR (MDRD) Non-Af 53 L BUN/Creatinine Ratio 20.8 H Glucose 87 Calcium 8.9 POC Glucose 12/04/18 12/04/18 12/04/18 21:13 16:43 11:35 POC Glucose 179 H 120 H 241 H 12/04/18 06:49 POC Glucose 92 Discharge Activity: Return to Normal Activity May resume sexual activity in: No Restrictions Weight Bearing Status: Weight bearing as tolerated Call your doctor if you observe: Fever of 101 or Higher, Inability to urinate, Inability to have a bowel movement, Shortness of breath, Dizziness, Fainting spells, Chest pain, Uncontrolled pain Home Medications: Medications to take at Discharge Omeprazole [Prilosec] 40 mg PO DAILY 01/06/14 B1/B2/B3/B5/B6/Iron/Meth/Choln [Geritol Tonic] 118 ml PO DAILY 08/28/16 Cholecalciferol (Vitamin D3) [Vitamin D3] 1,000 unit PO DAILY 08/28/16 Donepezil HCl 10 mg PO QHS 08/28/16 Glimepiride [Amaryl] 2 mg PO DAILY 08/28/16 Metformin HCl [Glucophage] 500 mg PO DAILY 08/28/16 Cinnamon Bark [Cinnamon] 1,000 mg PO DAILY 11/30/17 Erythromycin Base [Erythromycin] 1 applicatio EACH EYE DAILY 11/30/17 Ramipril 5 mg PO DAILY 11/30/17 traMADol [Ultram] 50 mg PO Q6H PRN 11/30/17 Atorvastatin Calcium [Lipitor] 80 mg PO QHS #30 tab 12/03/17 Clopidogrel Bisulfate [Plavix] 75 mg PO DAILY #30 tab 12/03/17 Glimepiride [Amaryl] 1 mg PO QHS PRN 12/03/18 Loperamide [Imodium] 2 mg PO DAILY 12/03/18 Multivit-Min/FA/Lycopen/Lutein [Centrum Silver Tablet] 1 each PO DAILY 12/03/18 Naproxen Sodium [Aleve] 220 mg PO DAILY 12/03/18 Albuterol IH (ProAir) [Proair Hfa] 1 - 2 puff INHALATION Q4H PRN PRN #1 inhaler 12/05/18 Cefdinir [Omnicef [equiv]] 300 mg PO Q12H #12 capsule 12/05/18 Guaifenesin [Mucinex] 1,200 mg PO BID #10 tablet 12/05/18 Following Prescrptions Were Given to Patient: Albuterol IH (ProAir) [Proair Hfa] 1 - 2 puff INHALATION Q4H PRN PRN #1 inhaler PRN Reason: dyspnea, wheezing Cefdinir [Omnicef [equiv]] 300 mg PO Q12H #12 capsule Guaifenesin [Mucinex] 1,200 mg PO BID #10 tablet Primary Care Physician: Mello Fowler DO [Primary Care Provider] - Please follow up with your Primary Care Physician in: Follow-up within 3-5 days to review admission. Patient Instructions: What Is Pneumonia?, Preventing Pneumonia, Pneumonia Treatment Disposition: Home Minutes spent on discharge:: 35 Patient Condition:: Fair Medical Necessity - Tobacco Use Smoking Status: Never smoker Tobacco Use: Non-smoker Meaningful Use Info Meaningful Use Diagnoses (Choose all that apply): None applicable Code Visit Inpatient E&M: 04247 Disch Hosp
--- NOTE | 2018-12-05 06:32 | DS.PCM_ITS ---
Discharge Date and Diagnosis - Problem List Patient Problems: Active and Suspected Problems Pneumonia (Acute) Encephalopathy acute (Acute) Date of Admission: 12/03/18 Date of Discharge: 12/05/18 - Primary Discharge Diagnosis Active and Suspected Problems (1) Acute Encephalopathy secondary Suspected PNA, initial UTI concerns (UCx w/ < 100,000 GNR LF) (2) Hx CVA (3) Chronic normocytic anemia (4) Diabetes mellitus type II (5) Chronic Kidney Disease Stage III (6) Hyperlipidemia (7) Dementia, Unclear type without behavioral disturbance history (8) GERD - Secondary Discharge Diagnosis Chronic Problems CVA (cerebral vascular accident) (Chronic) Dementia (Chronic) CKD (chronic kidney disease) stage 3, GFR 30-59 ml/min (Chronic) Chronic anemia (Chronic) Fibromyalgia (Chronic) GERD (gastroesophageal reflux disease) (Chronic) Vertigo (Chronic) Frequent UTI (Chronic) Hearing deficit (Chronic) Otosclerosis (Chronic) HLD (hyperlipidemia) (Chronic) Sjogrens syndrome (Chronic) DM (diabetes mellitus), type 2 (Chronic) Hospital Course and Treatment Operations: None Procedures: EKG Summary of Care Provided: The patient is a 83 y/o F w/ PMHx: CKD stage III, CVA with memory impairment, Dementia unclear type without behavioral disturbance, HLD, Diabetes mellitus type II, GERD, Sjogrens syndrome, Chronic normocytic anemia who presented to the [facility] ED on 12/03/18 with worsening confusion per spouse noted to have started the evening prior with patient inability to successfully help divide her medications and take them which she normally can perform. Work-up in the ED included T 98, heart rate 63, BP 147/62, respiratory rate 17, 98% on room air, CBC with WBC 9.7, hemoglobin 11.4, platelet 202 without shift, CMP with chloride 108, BUN/creatinine 29/1.12, glucose 161, UA remarkable with pending UCx, EKG SR with 1 AVB, CXR with mild increased markings left lung base with blunting of left c ostophrenic angle, CT head with chronic involutional changes of the brain. Admitted to [place], PRN albuterol, maintained on IV Rocephin and Azithromycin, HOB, IS parameters w/ inability to obtain sputum cultures and negative urine antigens. Initially less suspicious for PNA, suspected likely atelectasis, repeat 12/04/18 AM repeat chest x-ray with mild left base atelectasis and/or small infiltrate with urine culture noting a gram-negative lester lactose enrichment director however colony-forming units of only 50,000-80,000. Patient clinically improved, more calm after 24 hours and compliant with taking medications. Patient remained afebrile with stable vital signs. Patient discharged home in improved condition with plan to follow-up with primary care physician within 3 to 5 days on completion antibiotic therapy for possible pneumonia. DAY OF DISCHARGE PROGRESS NOTE: Subjective: Patient without acute event overnight per self and nursing report. Patient more calm and compliant with no agitation. Patient denies fever, chills, nausea, emesis, abdominal pain, chest pain or dyspnea. Patient agreeable to discharge to home with her who is her main caregiver. Patient will be discharged with follow-up with primary care physician within 3-5 days. Objective: T 97.6, heart rate 67, BP 134/74, respiratory rate 16, 97% on room air. Physical Examination: General: awake, alert, oriented to self, more interactive, following directions better, underlying dementia present, cooperative, seated upright in bedside chair. Skin: normal color, turgor, no icterus, cyanosis. HEENT: AT/NC, EOMI, PERRLA, MMM. Lungs: CTA bilaterally, moderate effort, moderate decrease BL bases, no rales, ronchi or wheezing. Heart: Regular rate and rhythm; no gallop, rub audible. Abdomen: soft, overweight, NTTP, ND, normal BS, no HSM. Extremities: no cyanosis, clubbing, or edema. Neurological: patient awake, alert, oriented as noted; cognitive function appears improved, baseline underlying dementia; pupils equally reactive to light and accomodation; cranial nerves II-XII grossly normal, moving all 4 extremities, no focal deficits, strength improved, mildly to moderately globally decreased. Psychiatric: affect appears normal, no acute evidence of depressive or anxiety feelings. Assessment and Plan: Please see hospital summary above. Patient Problems: Active and Suspected Problems Pneumonia (Acute) Encephalopathy acute (Acute) - Physical Exam Vital Signs Temp Pulse Resp BP Pulse Ox 97.6 F L 67 16 134/74 H 97 12/05/18 02:32 12/05/18 02:32 12/05/18 02:32 12/05/18 02:32 12/05/18 02:32 Oxygen Delivery Method Room Air Weight: 189 lb 8.009 oz Body Mass Index (BMI) 29.7 Finger Stick Blood Glucose 167 Intake and Output for Last 24 Hours 12/03/18 12/04/18 12/05/18 23:59 23:59 23:59 Intake Total 595 / 595 1550 / 1550 100 / 100 Output Total 800 / 800 300 / 300 100 / 100 Balance -205 / -205 1250 / 1250 0 / 0 Microbiology Past 72 Hours 12/03/18 10:25 Urine Culture - Preliminary Urine Catheter - Catheter GNR lactose enrichment director 12/03/18 10:25 Legionella Antigen - Final Urine, Random 12/03/18 10:25 Streptococcus pneumoniae Antigen (M - Final Urine, Random Laboratory Tests Past 24 Hrs 12/04/18 12/04/18 07:09 07:09 WBC 7.8 RBC 3.67 L Hgb 10.7 L Hct 32.6 L MCV 88.8 MCH 29.2 MCHC 32.8 RDW 13.0 RDW Differential 40.3 Plt Count 197 MPV 10.8 Immature Gran % (Auto) 0.300 Neut % (Auto) 49.0 Lymph % (Auto) 35.3 [place] % (Auto) 8.9 Eos % (Auto) 5.6 H Baso % (Auto) 0.9 Absolute Neuts (auto) 3.8 Absolute Lymphs (auto) 2.77 Total Counted Not Reportable Sodium 143 Potassium 3.8 Chloride 112 H Carbon Dioxide 26.0 Anion Gap 5 BUN 22 H Creatinine 1.06 H Estim Creat Clear Calc 39.79 Est GFR (MDRD) Af Amer 64 Est GFR (MDRD) Non-Af 53 L BUN/Creatinine Ratio 20.8 H Glucose 87 Calcium 8.9 POC Glucose 12/04/18 12/04/18 12/04/18 21:13 16:43 11:35 POC Glucose 179 H 120 H 241 H 12/04/18 06:49 POC Glucose 92 Discharge Activity: Return to Normal Activity May resume sexual activity in: No Restrictions Weight Bearing Status: Weight bearing as tolerated Call your doctor if you observe: Fever of 101 or Higher, Inability to urinate, I nability to have a bowel movement, Shortness of breath, Dizziness, Fainting spells, Chest pain, Uncontrolled pain Home Medications: Medications to take at Discharge Omeprazole [Prilosec] 40 mg PO DAILY 01/06/14 B1/B2/B3/B5/B6/Iron/Meth/Choln [Geritol Tonic] 118 ml PO DAILY 08/28/16 Cholecalciferol (Vitamin D3) [Vitamin D3] 1,000 unit PO DAILY 08/28/16 Donepezil HCl 10 mg PO QHS 08/28/16 Glimepiride [Amaryl] 2 mg PO DAILY 08/28/16 Metformin HCl [Glucophage] 500 mg PO DAILY 08/28/16 Cinnamon Bark [Cinnamon] 1,000 mg PO DAILY 11/30/17 Erythromycin Base [Erythromycin] 1 applicatio EACH EYE DAILY 11/30/17 Ramipril 5 mg PO DAILY 11/30/17 traMADol [Ultram] 50 mg PO Q6H PRN 11/30/17 Atorvastatin Calcium [Lipitor] 80 mg PO QHS #30 tab 12/03/17 Clopidogrel Bisulfate [Plavix] 75 mg PO DAILY #30 tab 12/03/17 Glimepiride [Amaryl] 1 mg PO QHS PRN 12/03/18 Loperamide [Imodium] 2 mg PO DAILY 12/03/18 Multivit-Min/FA/Lycopen/Lutein [Centrum Silver Tablet] 1 each PO DAILY 12/03/18 Naproxen Sodium [Aleve] 220 mg PO DAILY 12/03/18 Albuterol IH (ProAir) [Proair Hfa] 1 - 2 puff INHALATION Q4H PRN PRN #1 inhaler 12/05/18 Cefdinir [Omnicef [equiv]] 300 mg PO Q12H #12 capsule 12/05/18 Guaifenesin [Mucinex] 1,200 mg PO BID #10 tablet 12/05/18 Following Prescrptions Were Given to Patient: Albuterol IH (ProAir) [Proair Hfa] 1 - 2 puff INHALATION Q4H PRN PRN #1 inhaler PRN Reason: dyspnea, wheezing Cefdinir [Omnicef [equiv]] 300 mg PO Q12H #12 capsule Guaifenesin [Mucinex] 1,200 mg PO BID #10 tablet Primary Care Physician: Mello Fowler DO [Primary Care Provider] - Please follow up with your Primary Care Physician in: Follow-up within 3-5 days to review admission. Patient Instructions: What Is Pneumonia?, Preventing Pneumonia, Pneumonia Treatment Disposition: Home Minutes spent on discharge:: 35 Patient Condition:: Fair Medical Necessity - Tobacco Use Smoking Status: Never smoker Tobacco Use: Non-smoker Meaningful Use Info Meaningful Use Diagnoses (Choose all that apply): None applicable Code Visit Inpatient E&M: 65202 Disch Hosp
[2018-12-05 07:01] LABS: Bedside Glucose 116 mg/dL (70-110)
[2018-12-05 07:19] VITALS: O2SAT 97
[2018-12-05 08:34] VITALS: BP 142/77; PULSE 63; RESP 18; TEMP 36.7; O2SAT 98
[2018-12-05 08:38] VITALS: PULSE 60
[2018-12-05] MEDS: Cefdinir 300 MG Capsule PO (08:47)
[2018-12-05] MEDS: Ramipril 5 MG Capsule PO (08:48)
[2018-12-05] MEDS: Azithromycin 250 MG Tablet PO (08:48)
[2018-12-05] MEDS: Clopidogrel Bisulfate 75 MG Tablet PO (08:48)
[2018-12-05] MEDS: Pantoprazole Sodium 40 MG Tablet PO (08:48)
[2018-12-05] MEDS: Loperamide 2 MG Capsule PO (08:49)
[2018-12-05] MEDS: Donepezil HCl 10 MG Tablet PO (08:49)
[2018-12-05] MEDS: Enoxaparin 30 MG/0.3 ML Syringe SC (08:49)
[2018-12-05] MEDS: Multivitamins,Ther W-Minerals Tablet 1 TABLET PO (08:49)
[2018-12-05] MEDS: guaiFENesin 1,200 MG Tablet 1200 MG PO (08:50)
--- NOTE | 2018-12-06 15:08 | CASEMGMT ---
ALEKSANDAR LAWRENCE Discharge Follow-Up Phone Call. Lace: 10 Strata: 3 Discharge Date: 12/05/18 Adm Dx: Encephalopathy, UTI, PNA Attempted discharge follow-up phone call. No answer. Message left for pt to return call to CM if he has any questions re: discharge instructions, medications, or appts. Phone number provided. Also left message advising for pt to contact his PCP if he has questions and unable to reach CM. Sina RICEN ALEKSANDAR CM
== END 2018-12-05 10:33 | disposition home or self-care (01) | DRG 194 ==
LOC: ED 10:16 → MS3 12:02
PROVIDERS: Admitting Provider Family Medicine; Emergency Provider Emergency Medicine; Family Provider Family Medicine; PCP Family Medicine; Referring Provider Family Medicine; Visit Provider Family Medicine
DX: J18.9 Pneumonia, unspecified organism (principal); G93.49 Other encephalopathy; F03.90 Unspecified dementia, unspecified severity, without behavioral disturbance, psychotic disturbance, mood disturbance, and anxiety; E11.9 Type 2 diabetes mellitus without complications; E11.22 Type 2 diabetes mellitus with diabetic chronic kidney disease; N18.3 Chronic kidney disease, stage 3 (moderate); E11.40 Type 2 diabetes mellitus with diabetic neuropathy, unspecified; E78.5 Hyperlipidemia, unspecified; M35.00 Sjogren syndrome, unspecified; M19.90 Unspecified osteoarthritis, unspecified site; D64.9 Anemia, unspecified; K21.9 Gastro-esophageal reflux disease without esophagitis; H91.90 Unspecified hearing loss, unspecified ear; G47.33 Obstructive sleep apnea (adult) (pediatric); Z79.84 Long term (current) use of oral hypoglycemic drugs; Z79.02 Long term (current) use of antithrombotics/antiplatelets; Z79.1 Long term (current) use of non-steroidal anti-inflammatories (NSAID); Z79.899 Other long term (current) drug therapy; Z87.440 Personal history of urinary (tract) infections; Z86.73 Personal history of transient ischemic attack (TIA), and cerebral infarction without residual deficits
CPT/HCPCS: 36415; 70450; 71046; 80048; 80053; 81001; 82962; 83735; 85025; 87077; 87086; 87088; 87186; 87449; 93005; 94667; 97162; 97166; 97802; 99285; J7030; P9612; A4216

== ENCOUNTER 2019-03-03 19:38 | Emergency (ER) | payer MEDICARE, OTHER, SELFPAY ==
[2018-12-03 12:54] VITALS: BMI 29.7
[2019-03-03 19:40] VITALS: BP 140/85; PULSE 102; RESP 20; TEMP 36.1; O2SAT 95; BMI 30.4
--- NOTE | 2019-03-03 20:55 | RAD_ITS ---
STUDY: X-RAY - ABDOMEN/PELVIS REASON FOR EXAM: Female, 84 years old. Constipation TECHNIQUE: 2 supine Views of the upper abdomen and lower abdomen/pelvis is provided. COMPARISON: None. FINDINGS: Normal visualized lung bases. There is moderate stool in the colon. There is no demonstrated free abdominal air. The kidneys are obscured. The liver silhouette is partially visualized. There are calcified phleboliths in the pelvis. There are diffuse degenerative changes of the visualized lumbar spine. There is atherosclerotic disease of aorta. There is curvilinear calcification extending beyond the borders of the left side of the lumbar spine at the level of L2-L3. RAD/Abdomen Single View IMPRESSION: Moderate constipation. Curvilinear calcification 1.6 cm beyond the border of the left side of the lumbar spine which may represent tortuous abdominal aorta aneurysmal dilatation is not excluded. Electronically Signed: Leslie Gandhi MD at 21:20 EDT Tel , Service support ,
--- NOTE | 2019-03-03 21:50 | ED.VIS.GEN ---
History of Present Illness Chief Complaint: Constipation Informant: Patient, Family, Significant Other Onset: Weeks - 1 Timing: Continuous Current Severity: Moderate Maximum Severity: Moderate Narrative: Patient presents with constipation for about a week. She is brought in by her . She has dementia but her concurs that it has been about a week since her last BM. She has some rectal pain. She has some mild abdominal pain. She has no nausea vomiting fever or chills. Past Medical History - Allergies and Home Meds Allergies/Adverse Reactions: Allergies No Known Allergies Allergy (Verified 03/03/19 19:39) Primary Care Physician: Mello Fowler DO [Primary Care Provider] - Prior records reviewed: Yes Past Medical History: - - Reviewed, dementia, no prior history of constipation Surgical History: noncontributory, - - Tonsillectomy, hysterectomy, breast lumpectomy. Smoking Status: Never smoker - Family History Paternal Family History: Reports: Diabetes, Heart Disease Maternal Family History: Reports: Diabetes, Dementia Additional Family History: There is also a history of Alzheimer's disease and a paternal cousin. All of her affected family members however had symptom onset in their late 60s. Offspring Family History: Reports: - - She has a daughter with thyroid disease Sibling Family History: Reports: - - She has a sister who of dementia and she has another sister who of complications of with renal failure. Review of Systems All systems negative except as indicated General: Denies: Fever Cardiovascular: Denies: Chest pain Respiratory: Denies: Dyspnea Gastrointestinal: Reports: Abdominal pain, Constipation Musculoskeletal: Denies: Back pain Skin: Denies: Rash Neurological: Denies: Weakness Physical Exam Vital Signs/Narrative: Vital Signs Temp Pulse Resp BP Pulse Ox 03/03/19 19:40 97.0 F L 102 H 20 H 140/85 H 95 General: Well nourished, Well developed Head: Normocephalic ENT: Moist mucous membranes Cardiovascular: Regular rate, Regular rhythm Respiratory: No distress, CTA bilaterally Abdomen: Soft, - - Slight lower abdominal pain. Benign exam. Rectal: - - There is a rectal impaction. It is quite large, painful. Small external hemorrhoid Back: Nontender Extremities: Nontender Skin: Normal color Neurological: Alert, - - She is oriented x2 without any focal deficit Psychological: Normal affect Diagnostic/Tx/Re-eval - Medical Decision Making Patient was disimpacted. After waiting about an hour she had a reasonable bowel movement. X-ray is significant for constipation there is no evidence of obstruction. She will be discharged in the care of her with some MiraLAX. I believe she is stable for discharge no further testing are needed. Disposition discharge stable condition ED Disposition - Plan for ED Patient: Disposition: Home or Assisted Living Diagnosis: Constipation Instructions: CONSTIPATION (Adult) Prescriptions: Polyethylene Glycol 3350 [Miralax] 17 gm PO DAILY #5 packet Prescription Printed Referrals: Mello Fowler DO [Primary Care Provider] - 3-5 Days
[2019-03-03 22:24] VITALS: PULSE 84; RESP 18
[2019-03-03] MEDS: Polyethylene Glycol 3350 17 GM PACKET PO (22:24)
== END 2019-03-03 22:30 | disposition home or self-care (01) ==
PROVIDERS: Emergency Provider Emergency Medicine; Family Provider Family Medicine; PCP Family Medicine
DX: K59.00 Constipation, unspecified (principal); K64.4 Residual hemorrhoidal skin tags; F03.90 Unspecified dementia, unspecified severity, without behavioral disturbance, psychotic disturbance, mood disturbance, and anxiety; Z79.84 Long term (current) use of oral hypoglycemic drugs; Z79.02 Long term (current) use of antithrombotics/antiplatelets; Z79.1 Long term (current) use of non-steroidal anti-inflammatories (NSAID); Z79.899 Other long term (current) drug therapy; Z90.710 Acquired absence of both cervix and uterus
CPT/HCPCS: 74018; 99283

== ENCOUNTER → 2019-04-03 13:30 | Outpatient (CLI) | payer MEDICARE, OTHER, SELFPAY | PROVIDERS: Family Provider Family Medicine; PCP Family Medicine; Visit Provider Family Medicine | DX: N39.0 Urinary tract infection, site not specified (principal) | CPT/HCPCS: 87086; 87088; 87186 ==

== ENCOUNTER → 2019-04-30 13:23 | Outpatient (CLI) | payer MEDICARE, OTHER, SELFPAY | PROVIDERS: Family Provider Family Medicine; PCP Family Medicine; Visit Provider Family Medicine | DX: N39.0 Urinary tract infection, site not specified (principal) | CPT/HCPCS: 87086; 87088; 87186 ==

== ENCOUNTER 2019-06-08 06:11 | Emergency (ER) | payer MEDICARE, OTHER, SELFPAY ==
[2019-06-08 06:12] VITALS: BP 155/74; PULSE 67; RESP 18; TEMP 36.4; O2SAT 93; BMI 31.6
--- NOTE | 2019-06-08 06:19 | ED.DCSUM_ITS ---
History of Present Illness Chief Complaint: Fall Narrative: Patient is an 84-year-old female who presents after a fall. She has dementia. She had gone outside looking for a cat. She slipped on the [employer] driveway and fell injuring her right elbow. She did not hit her head she did not lose consciousness she complains of some mild pain in her leg but that was hurting before her fall and is not new. She did suffer a skin tear to her right elbow. Past Medical History - Allergies and Home Meds Allergies/Adverse Reactions: Allergies No Known Allergies Allergy (Verified 06/08/19 06:12) Primary Care Physician: Mello Fowler DO [Primary Care Provider] - Past Medical History: - - stroke Surgical History: noncontributory, - - Tonsillectomy, hysterectomy, breast lumpectomy. Smoking Status: Never smoker - Family History Paternal Family History: Reports: Diabetes, Heart Disease Maternal Family History: Reports: Diabetes, Dementia Additional Family History: There is also a history of Alzheimer's disease and a paternal cousin. All of her affected family members however had symptom onset in their late 60s. Offspring Family History: Reports: - - She has a daughter with thyroid disease Sibling Family History: Reports: - - She has a sister who of dementia and she has another sister who of complications of with renal failure. Review of Systems All systems negative except as indicated General: Denies: Fever Cardiovascular: Denies: Chest pain Respiratory: Denies: Dyspnea Gastrointestinal: Denies: Abdominal pain Musculoskeletal: Denies: Back pain Neurological: Denies: Headache Physical Exam Vital Signs/Narrative: Vital Signs Temp Pulse Resp BP Pulse Ox 06/08/19 06:12 97.6 F L 67 18 155/74 H 93 Inital Vital Signs reviewed: Yes General: Well nourished, Well developed Head: Normocephalic, Atraumatic Eyes: Perrl, EOMI ENT: Moist mucous membranes Neck: Supple, Nontender Cardiovascular: Regular rate Respiratory: No distress Abdomen: Soft Extremities: - - Active full range of motion of the bilateral lower extremities and left upper extremity without pain. No pain with palpation range of motion of the right elbow wrist or hand patient does have tenderness and soft tissue swelling ecchymosis and the skin tear over the right elbow no obvious bony deformity 2+ radial pulse Skin: Normal color Neurological: Alert Psychological: Normal affect Diagnostic/Tx/Re-eval Impressions Elbow X-Ray 06/08/19 06:25 IMPRESSION: Focal soft tissue swelling overlying the posterior elbow, x-ray examination of the elbow. Electronically Signed: Rosalia Andre MD at 6:40 EST , Service support , 06/08/19 06:25 Elbow min 3 Views [RAD] Stat - Medical Decision Making Elbow x-ray shows soft tissue swelling no obvious fracture. Dressing was applied by nursing staff. Has been instructed on supportive care and patient was discharged home. ED Disposition - Plan for ED Patient: Disposition: Home or Assisted Living Diagnosis: Fall, Skin tear of elbow without complication, Contusion of elbow, right Instructions: FALL, Mechanical, Skin Avulsion Referrals: Mello Fowler DO [Primary Care Provider] -
--- NOTE | 2019-06-08 06:25 | RAD_ITS ---
STUDY: X-RAY - RIGHT ELBOW REASON FOR EXAM: Female, 84 years old. Status post fall with laceration. TECHNIQUE: 3 view(s) of the elbow. COMPARISON: None. FINDINGS: Normal visualized humerus, radius and ulna. Normal radiocapitellar and ulnotrochlear articulations. No joint effusion. There is soft tissues posterior 1.5 cm in thickness. There is no demonstrated fracture. RAD/Elbow min 3 Views IMPRESSION: Focal soft tissue swelling overlying the posterior elbow, x-ray examination of the elbow. Electronically Signed: Rosalia Andre MD at 6:40 EST , Service support ,
--- NOTE | 2019-06-08 06:41 | ED.RN ---
RIGHT ELBOW SKIN TEAR CLEANSED WITH SHUR CLEANS AND NORMAL SALINE. ADAPTIC APPLIED AND ROLLED GAUZE. INSTRUCTIONS GIVEN TO HER .
== END 2019-06-08 06:51 | disposition home or self-care (01) ==
PROVIDERS: Emergency Provider Emergency Medicine; Family Provider Family Medicine; PCP Family Medicine
DX: S51.011A Laceration without foreign body of right elbow, initial encounter (principal); W00.0XXA Fall on same level due to ice and snow, initial encounter; Y93.9 Activity, unspecified; Y92.9 Unspecified place or not applicable; Y99.9 Unspecified external cause status; F03.90 Unspecified dementia, unspecified severity, without behavioral disturbance, psychotic disturbance, mood disturbance, and anxiety; Z79.84 Long term (current) use of oral hypoglycemic drugs; Z79.02 Long term (current) use of antithrombotics/antiplatelets; Z79.1 Long term (current) use of non-steroidal anti-inflammatories (NSAID); Z79.899 Other long term (current) drug therapy; Z86.73 Personal history of transient ischemic attack (TIA), and cerebral infarction without residual deficits; Z90.710 Acquired absence of both cervix and uterus
CPT/HCPCS: 73080; 99282

== ENCOUNTER 2019-06-13 16:29 | Emergency (ER) | payer MEDICARE, OTHER, SELFPAY ==
[2019-06-13 16:30] VITALS: BP 137/74; PULSE 74; RESP 18; TEMP 36.2; O2SAT 93; BMI 32.8
[2019-06-13 16:35] VITALS: BP 137/74; PULSE 74; RESP 16; TEMP 36.2; O2SAT 98
--- NOTE | 2019-06-13 16:58 | ED.DCSUM_ITS ---
- ER Visit Summary Date of Service: 06/13/19 Chief Complaint: Wound check History of Present Illness: The patient is a 84 F who sustained a right elbow skin tear from a fall. states he has been using antibiotic ointment was concerned about how the wound was looking so he brought her to urgent care and she was referred here. No fevers. Patient denies any significant drainage from the wound. Physical Examination: Afebrile vital signs stable Right elbow shows a traumatic olecranon bursitis. There is an 8 cm skin tear with dried blood along the edges. There is pink tissue in the middle with early granulation tissue. There is no surrounding erythema or evidence of infection. No lymphangitis. There is dark purple to blue ecchymosis inferior and posterior along the forearm. Emergency Department Course and Treatment: Patient and were given reassurance that the are treating the wound appropriately. I have asked that they go ahead and resume showering and are clear to use soap and water. I recommend keeping the wound covered with bacitracin ointment during the morning evening and night and if it available to allow it to air during the afternoon. notes understanding and agreement with her plan Impression: 1. Wound check of the right elbow This note was generated with [employer] dictation software. It may contain incorrect words, spelling, and punctuation that were not noted in review of the chart prior to signing ED Disposition - Plan for ED Patient: Disposition: Home or Assisted Living Instructions: WOUND CHECK, Lac F/U (No Infection) Referrals: Mello Fowler, [Primary Care Provider] - Keep Jacki appointment
== END 2019-06-13 17:13 | disposition home or self-care (01) ==
PROVIDERS: Emergency Provider Emergency Medicine; Family Provider Family Medicine; PCP Family Medicine
DX: S51.011A Laceration without foreign body of right elbow, initial encounter (principal); W19.XXXA Unspecified fall, initial encounter; Y92.9 Unspecified place or not applicable; Y99.9 Unspecified external cause status; M70.21 Olecranon bursitis, right elbow; Y93.9 Activity, unspecified; E11.9 Type 2 diabetes mellitus without complications; I10 Essential (primary) hypertension; M35.00 Sjogren syndrome, unspecified; K21.9 Gastro-esophageal reflux disease without esophagitis; F03.90 Unspecified dementia, unspecified severity, without behavioral disturbance, psychotic disturbance, mood disturbance, and anxiety; G47.30 Sleep apnea, unspecified; Z79.84 Long term (current) use of oral hypoglycemic drugs; Z79.02 Long term (current) use of antithrombotics/antiplatelets; Z79.899 Other long term (current) drug therapy; Z86.73 Personal history of transient ischemic attack (TIA), and cerebral infarction without residual deficits
CPT/HCPCS: 99282

== ENCOUNTER 2019-07-03 16:00 | Outpatient (RCR) | payer MEDICARE, OTHER, SELFPAY ==
[2019-06-26 14:48] VITALS: BP 142/73; PULSE 64; RESP 18; TEMP 36.6; BMI 32.8
--- NOTE | 2019-06-26 17:42 | PCM.WC.HP ---
(1) Non-healing wound of upper extremity Status: Acute Current Visit: Yes Qualifiers: Encounter type: initial encounter Laterality: right Qualified Code(s): S41.101A - Unspecified open wound of right upper arm, initial encounter Code(s): S41.109A - Unspecified open wound of unspecified upper arm, initial encounter (2) Fall Status: Acute Current Visit: Yes Code(s): W19.XXXA - Unspecified fall, initial encounter (3) Traumatic hematoma of right upper arm Status: Acute Current Visit: Yes Code(s): S40.021A - Contusion of right upper arm, initial encounter (4) CKD (chronic kidney disease) stage 3, GFR 30-59 ml/min Status: Chronic Current Visit: No Code(s): N18.3 - Chronic kidney disease, stage 3 (moderate) (5) CVA (cerebral vascular accident) Status: Chronic Current Visit: No Qualifiers: Code(s): I63.9 - Cerebral infarction, unspecified (6) Chronic anemia Status: Chronic Current Visit: No Code(s): D64.9 - Anemia, unspecified (7) DM (diabetes mellitus), type 2 Status: Chronic Current Visit: No Code(s): E11.9 - Type 2 diabetes mellitus without complications (8) Dementia Status: Chronic Current Visit: No Qualifiers: Code(s): F03.90 - Unspecified dementia without behavioral disturbance History of Present Illness Date of Service: 06/26/19 Chief Complaint: Healing traumatic wound and hematoma to right upper extremity which occurred on 06/08/2019 status post fall History of Wound: Is an 84-year-old white female who presents to the wound healing center today for evaluation of open hematoma and wound of the right upper extremity which initially occurred on 06/08/2019 after a fall on the ice. She has a past medical history as listed above significant for type 2 diabetes mellitus, chronic UTI, and dementia. The patient is with her today who is her caregiver at home. They state that the site opened up a week ago and has been draining. They have been utilizing Telfa and roll gauze. Deny any compression or warm compresses at this time. Does note that there is a dark bloody drainage from the site. Denies any systemic signs of infection currently. Initially went to the emergency department after it occurred and a week after for wound check and x-rays were done and were negative. Denies any other concerns at this time. According to patient her type 2 diabetes mellitus is fairly well controlled and her most recent A1c was 6.1. All other systems reviewed and negative with exception of those listed above. Patient's does note that he has been having difficulty dressing the wound at home. Past Medical History Past Medical History: Chronic Problems CVA (cerebral vascular accident) (Chronic) Dementia (Chronic) CKD (chronic kidney disease) stage 3, GFR 30-59 ml/min (Chronic) Chronic anemia (Chronic) Fibromyalgia (Chronic) GERD (gastroesophageal reflux disease) (Chronic) Vertigo (Chronic) Frequent UTI (Chronic) Hearing deficit (Chronic) Otosclerosis (Chronic) HLD (hyperlipidemia) (Chronic) Sjogrens syndrome (Chronic) DM (diabetes mellitus), type 2 (Chronic) Surgical History: noncontributory, - - Tonsillectomy, hysterectomy, breast lumpectomy. Allergies/Adverse Reactions: Allergies No Known Allergies Allergy (Verified 06/13/19 16:33) Home Medications: Ambulatory Orders Medication Instructions Recorded Omeprazole [Prilosec] 40 mg PO DAILY 01/06/14 Cholecalciferol (Vitamin D3) 1,000 unit PO DAILY 08/28/16 [Vitamin D3] Donepezil HCl 10 mg PO QHS 08/28/16 Glimepiride [Amaryl] 2 mg PO DAILY 08/28/16 metFORMIN HCl [Glucophage] 500 mg PO DAILY 08/28/16 Cinnamon Bark [Cinnamon] 1,000 mg PO DAILY 11/30/17 Erythromycin Base [Erythromycin] 1 applicatio EACH EYE DAILY 11/30/17 traMADol [Ultram] 50 mg PO Q6H PRN 11/30/17 Atorvastatin Calcium [Lipitor] 80 mg PO QHS #30 tab 12/03/17 Clopidogrel Bisulfate [Plavix] 75 mg PO DAILY #30 tab 12/03/17 Multivit-Min/FA/Lycopen/Lutein 1 each PO BID 12/03/18 [Centrum Silver Tablet] Naproxen Sodium [Aleve] 220 mg PO DAILY 12/03/18 Melatonin 10 mg PO QHS 06/08/19 Nitrofurantoin Macrocrystals 1 tab PO DAILY 06/08/19 [Macrobid] Vitamin C 1 tab PO BID 06/08/19 - Family History Paternal Diabetes, Heart Disease Maternal Diabetes, Dementia Offspring - - She has a daughter with thyroid disease Sibling - - She has a sister who of dementia and she has another sister who of complications of with renal failure. Smoking Status: Never smoker Review of Systems Constitutional: Denies: Chills, Fever, Weight Change Eyes: Denies: Pain, Vision Change HEENT: Denies: Difficulty Hearing, Difficulty Swallowing, Sinus Congestion Cardiovascular: Denies: Chest Pain, Palpitations Respiratory: Denies: Cough, Shortness of Breath Gastrointestinal: Denies: Diarrhea, Nausea, Vomiting Genitourinary: Denies: Dysuria, Hematuria Skin: Reports: Wounds - See HPI Endocrine: Denies: Heat/ Cold Intolerance, Polydipsia, Polyuria Hematologic/ Lymphatic: Denies: Easy Bruising, Easy Bleeding - Physical Exam Vital Signs Temp Pulse Resp BP 98 F 64 18 142/73 H 06/26/19 14:48 06/26/19 14:48 06/26/19 14:48 06/26/19 14:48 General: Alert, Cooperative HEENT: Atraumatic Oral: Moist Mucosa Lungs: Clear to auscultation, Normal air movement, No rhonchi, No wheeze Cardiovascular: Regular rate, Regular Rhythm Abdomen: Soft, Non Tender, Non-Distended Extremities: No clubbing, No cyanosis, No edema, Peripheral Pulses Normal Skin: Ulcer/ Wound - Open wound to right upper extremity elbow, surrounding hematoma approximately 8 x 8 cm on the posterior side, fluctuance present, large amount of devitalized tissue present and dried serosanguineous discharge, no surrounding warmth or erythema present at this time, circumferential undermining present Wound Measurements and Assessment WC - Nurse 1 - General Ulcer Measurement Start: 06/26/19 14:48 Freq: Status: Active Protocol: Activity Type Activity Date Activity User E-Sign Co-Sign Detail Recorded Client Recorded Date Recorded By Document 06/26/19 14:48 [id number] 06/26/19 14:52 RB 06/26/19 14:48 Wound Center Nurse 1 [Ulcer Assessment] 1. R elbow -Combined with other wound No -Current Size (cm) - Length 1.8 -Current Size (cm) - Width 1.6 -Current Size (cm) - Depth 1.8 -Total Square Cm 2.88 -Photo Taken Yes -Tunneling No -Undermining/Tunneling Yes -Undermining/Tunneling Starts (O' 2 clock) -Undermining/Tunneling Ends (O'clock) 6 -Maximum Distance (cm) 1.3 -Circular Undermining No -Exudate Amt Small -Exudate Type Serosanguineous -Wound Margin Flat & Intact -Granulation Amt Medium (34-66%) -Granulation Quality [place] -Slough/Fibrin Yes -Necrosis Amt Small (1-33%) -Necrotic Tissue Type Adherent Slough -Structure Exposed N/A -Texture ([place]-wound Skin Appearance) Assessed, Friable -Moisture ([place]-wound Skin Appearance Assessed ) -Color ([place]-wound Skin Appearance) Assessed -Temperature ([place]-wound Skin No Abnormality Appearance) (Pt Warm) -Tenderness on Palpation ([place]-wound No Skin Appearance) -Ulcer Cleansing Wound Cleanser -Foul Odor after Cleansing No -Anesthetic Used 4% Lidocaine Solution WC - Nurse 2 - General Ulcer CM Notes Start: 06/26/19 14:48 Freq: Status: Active Protocol: Activity Type Activity Date Activity User E-Sign Co-Sign Detail Recorded Client Recorded Date Recorded By Document 06/26/19 15:12 MW [id number] 06/26/19 15:22 MW 06/26/19 15:12 Wound Center Nurse 2 [Procedure/Treatment] -Time 15:15 -Correct Patient Yes -Correct Side, Site, Position Yes -Correct Procedure Yes -Procedure Performed Yes -Type of Procedure Debridement -Clinical Debridement Subcutaneous -Post Debridement Size (cm) - Length 2.0 -Post Debridement Size (cm) - Width 1.7 -Post Debridement Size (cm) - Depth 1.9 -Total Square Cm 3.40 -Wound/Ulcer Outcome Not Healed -Ulcer Cleansing Rinsed/ Irrigated with Saline -Foul Odor after Cleansing No -Bioengineered Tissue No -Bleeding Controlled with Pressure -Offloading No -Treatment Response Procedure Tolerated Well [See Physician Procedure note for Specifics] Pain Scale: 0-10 Numeric [Pain] -Is Patient Pain Free? Yes Musculoskeletal: No Tenderness to Palpation of Joints or Extremities Neurological: Neuro grossly intact Psych/Mental Status: Normal Affect, Appropriate Debridement Note Post-Debridement Measurements/Treatment WC - Nurse 2 - General Ulcer CM Notes Start: 06/26/19 14:48 Freq: Status: Active Protocol: Activity Type Activity Date Activity User E-Sign Co-Sign Detail Recorded Client Recorded Date Recorded By Document 06/26/19 15:12 MW [id number] 06/26/19 15:22 MW 06/26/19 15:12 Wound Center Nurse 2 1. R elbow -Time 15:15 -Correct Patient Yes -Correct Side, Site, Position Yes -Correct Procedure Yes -Procedure Performed Yes -Type of Procedure Debridement -Clinical Debridement Subcutaneous -Post Debridement Size (cm) - Length 2.0 -Post Debridement Size (cm) - Width 1.7 -Post Debridement Size (cm) - Depth 1.9 -Total Square Cm 3.40 -Wound/Ulcer Outcome Not Healed -Ulcer Cleansing Rinsed/ Irrigated with Saline -Foul Odor after Cleansing No -Bioengineered Tissue No -Bleeding Controlled with Pressure -Offloading No -Treatment Response Procedure Tolerated Well Pain Scale: 0-10 Numeric Is Patient Pain Free? Yes Wound debrided: Right upper extremity traumatic wound/hematoma Laterality: Right Type of Debridement: Excisional debridement Anesthesia Used: 5% Lidocaine Gel Depth: in the subcutaneous layer, to muscle Percentage of wound debrided: 100 Instrument Used: 7mm curette Tissue Removed: Slough and devitalized tissue Severity: Necrosis of Muscle Amount of bleeding with debridement: Mild Bleeding Controlled with: Pressure Patient tolerated procedure well Assessment/Plan Active Problems Fall (Acute) Traumatic hematoma of right upper arm (Acute) Non-healing wound of upper extremity (Acute) Assessment: See above diagnoses Plan: The patient was seen and examined at the wound center today and was updated on the plan of care. A muscular debridement was performed today. The patient tolerated the procedure well. The patients wound care will consist of: Clean the site with Aquacel silver rope and covering with gauze and changing daily. Advised on compressing the site lightly with an Daniel wrap and on the use of warm compresses 3-4 times per day. Wound cultures held at this time until large amount of devitalized tissue able to be removed. Baseline bloodwork ordered. Patient educated on the importance of diet on wound healing and instructed to increase protein and vitamin C intake. Patient verbalized understanding. Patient will follow up at wound healing center in one week or sooner if needed. Given the patient's caregivers difficulty with wound care, home health ordered. Discussed red flag signs and symptoms requiring urgent medical attention, and patient verbalized understanding. This note was generated with [employer] dictation software. It may contain incorrect words, spelling, and punctuation that were not noted in checking the note before signing. Code Visit Office Visits / Consults: [id number] OV L4 Est 111xxx-113xx: [id number] Tamiko musc/fascia 20 sq cm/<
[2019-07-03 16:02] VITALS: BP 140/68; PULSE 71; RESP 16; TEMP 35.8; BMI 32.8
--- NOTE | 2019-07-03 21:10 | PN.PCM_ITS ---
(1) Non-healing wound of upper extremity Status: Acute Qualifiers: Encounter type: initial encounter Laterality: right Qualified Code(s): S41.101A - Unspecified open wound of right upper arm, initial encounter Code(s): S41.109A - Unspecified open wound of unspecified upper arm, initial encounter (2) Fall Status: Acute Code(s): W19.XXXA - Unspecified fall, initial encounter (3) Traumatic hematoma of right upper arm Status: Acute Code(s): S40.021A - Contusion of right upper arm, initial encounter (4) CKD (chronic kidney disease) stage 3, GFR 30-59 ml/min Status: Chronic Code(s): N18.3 - Chronic kidney disease, stage 3 (moderate) (5) CVA (cerebral vascular accident) Status: Chronic Qualifiers: Code(s): I63.9 - Cerebral infarction, unspecified (6) Chronic anemia Status: Chronic Code(s): D64.9 - Anemia, unspecified (7) DM (diabetes mellitus), type 2 Status: Chronic Code(s): E11.9 - Type 2 diabetes mellitus without complications (8) Dementia Status: Chronic Qualifiers: Code(s): F03.90 - Unspecified dementia without behavioral disturbance Type of Wound Date of Service: 07/03/19 Chief Complaint: Healing traumatic wound and hematoma to right upper extremity which occurred on 06/08/2019 status post fall History of Wound: Is an 84-year-old white female who presents to the wound healing center today for evaluation of open hematoma and wound of the right upper extremity which initially occurred on 06/08/2019 after a fall on the ice. She has a past medical history as listed above significant for type 2 diabetes mellitus, chronic UTI, and dementia. The patient is with her today who is her caregiver at home. They state that the site opened up a week ago and has been draining. They have been utilizing Telfa and roll gauze. Deny any compression or warm compresses at this time. Does note that there is a dark bloody drainage from the site. Denies any systemic signs of infection currently. Initially went to the emergency department after it occurred and a week after for wound check and x-rays were done and were negative. Denies any other concerns at this time. According to patient her type 2 diabetes mellitus is fairly well controlled and her most recent A1c was 6.1. All other systems reviewed and negative with exception of those listed above. Patient's does note that he has been having difficulty dressing the wound at home. Progress of Wound: Traumatic wound site and underlying hematoma both improved this week without any signs of obvious infection at this time, she was approved for a wound VAC which will be placed today - Physical Exam Vital Signs Temp Pulse Resp BP 96.4 F L 71 16 140/68 H 07/03/19 16:02 07/03/19 16:02 07/03/19 16:02 07/03/19 16:02 General: Alert, Oriented x3, Cooperative, No apparent distress HEENT: Atraumatic Oral: Moist Mucosa Lungs: Clear to auscultation Cardiovascular: Regular rate Extremities: No clubbing, No cyanosis, No edema Skin: Ulcer/ Wound - See nursing documentation, slough and devitalized tissue pr esent, underlying hematoma reduced in size to 4 x 4 cm, no signs of obvious infection at this time, Less circumferential undermining compared to last visit Neurological: Neuro grossly intact Psych/Mental Status: Normal Affect, Appropriate, Alert and oriented to time, place, person, mood and affect Debridement Note Post-Debridement Measurements/Treatment WC - Nurse 2 - General Ulcer CM Notes Start: 06/26/19 14:48 Freq: Status: Active Protocol: Activity Type Activity Date Activity User E-Sign Co-Sign Detail Recorded Client Recorded Date Recorded By Document 06/26/19 15:12 MW [id number] 06/26/19 15:22 MW Document 07/03/19 16:18 MW [id number] 07/03/19 16:19 MW 06/26/19 07/03/19 15:12 16:18 Wound Center Nurse 2 1. R elbow -Time 15:15 16:18 -Correct Patient Yes Yes -Correct Side, Site, Position Yes Yes -Correct Procedure Yes Yes -Procedure Performed Yes Yes -Type of Procedure Debridement Debridement -Clinical Debridement Subcutaneous Subcutaneous -Post Debridement Size (cm) - Length 2.0 1.5 -Post Debridement Size (cm) - Width 1.7 1.3 -Post Debridement Size (cm) - Depth 1.9 1.2 -Total Square Cm 3.40 1.95 -Wound/Ulcer Outcome Not Healed Not Healed -Ulcer Cleansing Rinsed/ Rinsed/ Irrigated with Irrigated with Saline Saline -Foul Odor after Cleansing No No -Bioengineered Tissue No No -Bleeding Controlled with Pressure Pressure -Offloading No No -Treatment Response Procedure Procedure Tolerated Well Tolerated Well Pain Scale: 0-10 Numeric Is Patient Pain Free? Yes Yes Wound debrided: Right upper extremity traumatic wound/hematoma Laterality: Right Type of Debridement: Excisional debridement Anesthesia Used: 5% Lidocaine Gel Depth: in the subcutaneous layer, to muscle Percentage of wound debrided: 100 Instrument Used: 7mm curette Tissue Removed: Slough and devitalized tissue Severity: Necrosis of Muscle Amount of bleeding with debridement: Mild Bleeding Controlled with: Pressure Patient tolerated procedure well Assessment/Plan Assessment: See above diagnoses Plan: The patient was seen and examined at the wound center today and was updated on the plan of care. A muscular debridement was performed today. The patient tolerated the procedure well. The patients wound care will consist of: Application of wound VAC with black foam set at 125 mmHg change 3 times a week.. Advised on compressing the site lightly with an Daniel wrap and on the use of warm compresses 3-4 times per day. Wound cultures held at this time As no clinical suspicion for infection currently. Baseline bloodwork ordered And pending. Patient educated on the importance of diet on wound healing and instructed to increase protein and vitamin C intake. Patient verbalized understanding. Patient will follow up at wound healing center in one week or sooner if needed. Given the patient's caregivers difficulty with wound care, home health ordered. Discussed red flag signs and symptoms requiring urgent medical attention, and patient verbalized understanding. This note was generated with [employer] dictation software. It may contain incorrect words, spelling, and punctuation that were not noted in checking the note before signing. Code Visit 111xxx-113xx: [id number] Tamiko musc/fascia 20 sq cm/<
== END 2019-07-15 23:59 ==
LOC: WC 16:00
PROVIDERS: Family Provider Family Medicine; PCP Family Medicine; Visit Provider Nurse Practitioner Family
DX: S40.021A Contusion of right upper arm, initial encounter (principal); E11.22 Type 2 diabetes mellitus with diabetic chronic kidney disease; N18.3 Chronic kidney disease, stage 3 (moderate); F03.90 Unspecified dementia, unspecified severity, without behavioral disturbance, psychotic disturbance, mood disturbance, and anxiety; W00.0XXA Fall on same level due to ice and snow, initial encounter; M79.7 Fibromyalgia; K21.9 Gastro-esophageal reflux disease without esophagitis; E78.5 Hyperlipidemia, unspecified; M35.00 Sjogren syndrome, unspecified; Z79.899 Other long term (current) drug therapy; Z79.84 Long term (current) use of oral hypoglycemic drugs; Z79.02 Long term (current) use of antithrombotics/antiplatelets
CPT/HCPCS: 11043; 97605; 99213; G0463

== ENCOUNTER 2019-07-14 13:55 | Emergency (ER) | payer MEDICARE, OTHER, SELFPAY ==
[2019-07-14 13:56] VITALS: BP 132/61; PULSE 78; RESP 17; TEMP 36.6; O2SAT 97; BMI 33.9
--- NOTE | 2019-07-14 15:04 | CT_ITS ---
STUDY: CT BRAIN WITHOUT CONTRAST REASON FOR EXAM: Female, 84 years old. FALL, HIT HEAD ON SIDEWALK RADIATION DOSAGE (If Supplied By Facility): CTDIvol = ( 44.99 ) mGy, DLP = ( 782.05 ) mGycm TECHNIQUE: Transaxial CT imaging of the brain was performed without administration of intravenous contrast material. Individualized dose optimization techniques were used for this CT. COMPARISON: 12/03/2018 FINDINGS: Small right frontal scalp hematoma. Normal calvarium. There is mild cerebral atrophy with widening of the extra-axial spaces and ventricular dilatation. There are areas of decreased attenuation within the white matter tracts of the supratentorial brain, consistent with microvascular disease changes. Chronic lacunar infarct of the left thalamus. Normal brainstem. Normal cerebellum. There is no intracranial hemorrhage. There are no findings of an acute ischemic infarction. Normal visualized paranasal sinuses. CT/Brain/Head without Contrast IMPRESSION: Small right frontal scalp laceration but no intracranial hemorrhage. Electronically Signed: Feliberto Roca MD at 16:13 EST Tel , Service support ,
--- NOTE | 2019-07-14 15:05 | CT_ITS ---
STUDY: CT CERVICAL SPINE WITHOUT CONTRAST REASON FOR EXAM: Female, 84 years old. FALL, HIT HEAD ON SIDEWALK RADIATION DOSAGE (If Supplied By Facility): CTDIvol = ( 24.27 ) mGy, DLP = ( 553.14 ) mGycm TECHNIQUE: High resolution transaxial imaging was performed without contrast material. Sagittal and coronal images were reconstructed. Individualized dose optimization techniques were used for this CT. COMPARISON: None FINDINGS: Normal craniovertebral junction. There are degenerative changes of the anterior atlantoaxial articulation. Normal odontoid process. There is straightening of the normal cervical lordosis. Normal vertebral bodies and posterior osseous elements. C2-3: Moderate bilateral facet hypertrophy produces mild left neural foraminal stenosis. No central spinal stenosis. C3-4: Ankylosis of the facet joints. No spinal stenosis or neural foraminal stenosis. C4-5: Moderate right facet hypertrophy. No spinal stenosis or neural foraminal stenosis. C5-6: Moderate broad disc osteophyte complex and bilateral carotid joint hypertrophy produces moderate spinal stenosis and mild bilateral neural foraminal stenosis. C6-7: Moderate broad disc osteophyte complex and bilateral carotid joint hypertrophy produces moderate spinal stenosis and mild bilateral neural foraminal stenosis. C7-T1: Normal endplates. Normal disc height and morphology. Normal central canal and intervertebral neuroforamina. Normal visualized soft tissue structures. CT/Spine Cervical without Contras IMPRESSION: No acute fracture or subluxation. Electronically Signed: Feliberto Roca MD at 16:23 EST Tel , Service support ,
--- NOTE | 2019-07-14 15:06 | ED.VIS.FALL ---
History of Present Illness Chief Complaint: Fall Informant: Patient, Significant Other Occurred: Today Mechanism/Context: Same level fall, Trip Quality of Pain: Aching Narrative: Patient is an 84-year-old female with history of Alzheimer's dementia, stroke and diabetes mellitus presenting from home after fall. Follows that this by her . She was walking down the driveway to the sidewalk and tripped over the uneven sidewalk. She fell forward onto her right knee, right hand and hit her head. There is no reported loss of consciousness. Patient was able to get up to take a couple steps into the car. took her immediately to the emergency room. She is on Plavix. Her last dose was this morning. He does not know when her last tetanus was. Patient currently is only complaining of pain at her right hand. She is in her baseline mental state at this time. 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 Lives: Spouse/ Significant Other Smoking Status: Never smoker - Family History Paternal Family History: Reports: Diabetes, Heart Disease Maternal Family History: Reports: Diabetes, Dementia Additional Family History: There is also a history of Alzheimer's disease and a paternal cousin. All of her affected family members however had symptom onset in their late 60s. Offspring Family History: Reports: - - She has a daughter with thyroid disease Sibling Family History: Reports: - - She has a sister who of dementia and she has another sister who of complications of with renal failure. Review of Systems General: Denies: Chills, Fever, Sweats Eyes: Denies: Visual changes - bilaterally, Diplopia ENT: Denies: Rhinorrhea, Sore throat Cardiovascular: Denies: Chest pain, Palpitations Respiratory: Denies: Dyspnea, Cough, Dyspnea on exertion Gastrointestinal: Denies: Abdominal pain, Nausea, Vomiting, Diarrhea Genitourinary: Denies: Dysuria, Frequency Musculoskeletal: Reports: Extremity Pain - right hand, right knee . Denies: Back pain Skin: Reports: Abrasions - right forehead, right knee , Wounds - chronic, right elbow . Denies: Rash Neurological: Denies: Headache, Weakness, Numbness Physical Exam Vital Signs/Narrative: Vital Signs Temp Pulse Resp BP Pulse Ox 07/14/19 13:56 97.9 F 78 17 132/61 H 97 Inital Vital Signs reviewed: Yes General: Well nourished, Well developed Head: Normocephalic, Trauma - Superficial abrasion and hematoma to the right forehead. Negative for: Tenderness Eyes: Perrl, EOMI ENT: TM's clear, No hemotympanum or drainage, No trauma. Negative for: Nasal trauma, Nasal septal hematoma Neck: Nontender, Full ROM Cardiovascular: Regular rate, Regular rhythm, No murmurs Respiratory: No distress, CTA bilaterally, Chest nontender Abdomen: Soft, Nontender, Nondistended, Normal bowel sounds Back: Nontender. Negative for: CVA Tenderness - Right, CVA Tenderness - Left, Spinal Tenderness, Paraspinal Tenderness Extremeties: Tenderness to palpation of right lateral palm and MCP, no joint deformity or effusion appreciated. Normal range of motion of the hand. No tenderness palpation of the right wrist or snuffbox tenderness. Right knee?normal range of motion, no joint effusion appreciated no laxity appreciated. Right hip?normal range of motion, no pain with logroll. Left hip?no pain with logroll however patient does have tenderness palpation of the greater trochanter. Pelvis is stable Skin: Normal color, No rash, Trauma - Superficial abrasion to inferior right knee Neurological: Alert, Cranial nerves II-XII grossly intact, Normal Strength, Normal Sensation, Disoriented - At baseline Psychological: Normal affect Diagnostic/Tx/Re-eval Clinical Impression(s) from Imaging Studies Brain CT 07/14/19 15:04 IMPRESSION: Small right frontal scalp laceration but no intracranial hemorrhage. Electronically Signed: Feliberto Roca MD at 16:13 EST Tel , Service support , Cervical Spine CT 07/14/19 15:05 IMPRESSION: No acute fracture or subluxation. Electronically Signed: Feliberto Roca MD at 16:23 EST Tel , Service support , Hand X-Ray 07/14/19 15:35 IMPRESSION: No acute fracture or dislocation. Electronically Signed: Feliberto Roca MD at 16:23 EST Tel , Service support , Hip/Pelvis X-Ray 07/14/19 15:35 IMPRESSION: Normal x-ray examination of the pelvis and hip. Electronically Signed: Feliberto Roca MD at 16:24 EST Tel , Service support , - Medical Decision Making Patient is evaluated for injuries after mechanical fall. She is at her neurologic baseline. She appears nontoxic and in no acute distress. Tetanus is updated she does have superficial abrasions to her forehead and her right knee. CT of the brain and C-spine do not show any acute fracture or acute intracranial process. X-ray of the left hip and right wrist, where her tenderness is, grossly negative. Patient be discharged home. and patient are counseled on signs and symptoms requiring return to the emergency room. They verbalized agreement understand this plan. Patient is following up with wound care for her elbow tomorrow. She will follow-up with her primary care doctor as needed. ED Disposition - Plan for ED Patient: Disposition: Home or Assisted Living Diagnosis: Fall, Contusion of head, Right hand pain, Abrasion of right knee, Left hip pain Instructions: FALL, Mechanical, HEAD INJURY, No Wake-Up (Adult) Referrals: Mello Fowler DO [Primary Care Provider] - Additional Instructions: Ice the forehead. Return to the emergency room with any worsening symptoms, increased weakness or worsening confusion. Imaging today did not show any signs of broken bones or brain injury. Follow-up with primary care doctor next week for reevaluation. Take Tylenol as needed for pain.
--- NOTE | 2019-07-14 15:35 | RAD_ITS ---
STUDY: X-RAY - RIGHT HAND REASON FOR EXAM: Female, 84 years old. patient fell and is experiencing pain TECHNIQUE: 3 view(s) of the hand. COMPARISON: None. FINDINGS: Normal radiocarpal articulation. Normal distal radioulnar joint. Normal visualized carpal bones. Normal carpal articulations Normal carpometacarpal articulation of the thumb. Normal second through fifth carpometacarpal joints. Normal metacarpi. Normal metacarpophalangeal joint of the thumb. Normal interphalangeal joint of the thumb. Normal proximal and distal phalanges of the thumb. Normal metacarpophalangeal joints of the second through fifth fingers. There is diffuse articular joint space narrowing of the proximal and distal interphalangeal joints of the second through fifth fingers, but without erosive changes or periarticular soft tissue swelling. Normal phalanges of the second through fifth fingers. The soft tissue structures are unremarkable. RAD/Hand Min 3 Views IMPRESSION: No acute fracture or dislocation. Electronically Signed: Feliberto Roca MD at 16:23 EST Tel , Service support ,
--- NOTE | 2019-07-14 15:35 | RAD_ITS ---
STUDY: X-RAY - PELVIS AND LEFT HIP REASON FOR EXAM: Female, 84 years old. patient fell and is experiencing pain TECHNIQUE: 3 views of the pelvis and hip. COMPARISON: None. FINDINGS: There is a non-specific bowel gas pattern. Normal visualized soft tissue structures. Normal bilateral iliac wings, sacroiliac joints and visualized sacrum. Normal bilateral superior and inferior pubic rami. Normal pubic symphysis. Normal bilateral ischial tuberosities. Normal visualized femoral head. Normal acetabulum. Normal hip joint. RAD/HIP, UNI W/ Pelvis 2-3 Views IMPRESSION: Normal x-ray examination of the pelvis and hip. Electronically Signed: Feliberto Roca MD at 16:24 EST Tel , Service support ,
[2019-07-14] MEDS: Diphth,Pertuss(Acell),Tet Vac 0.5 ML Vial IM (16:46)
[2019-07-14 16:48] VITALS: BP 111/48; PULSE 66; RESP 14; O2SAT 98
== END 2019-07-14 17:20 | disposition home or self-care (01) ==
PROVIDERS: Emergency Provider Emergency Medicine; Family Provider Family Medicine; PCP Family Medicine
DX: S00.83XA Contusion of other part of head, initial encounter (principal); S80.211A Abrasion, right knee, initial encounter; M79.641 Pain in right hand; M25.552 Pain in left hip; W01.0XXA Fall on same level from slipping, tripping and stumbling without subsequent striking against object, initial encounter; Y93.01 Activity, walking, marching and hiking; Y92.007 Garden or yard of unspecified non-institutional (private) residence as the place of occurrence of the external cause; G30.9 Alzheimer's disease, unspecified; F02.80 Dementia in other diseases classified elsewhere, unspecified severity, without behavioral disturbance, psychotic disturbance, mood disturbance, and anxiety; E11.22 Type 2 diabetes mellitus with diabetic chronic kidney disease; N18.9 Chronic kidney disease, unspecified; D63.1 Anemia in chronic kidney disease; E11.40 Type 2 diabetes mellitus with diabetic neuropathy, unspecified; E78.5 Hyperlipidemia, unspecified; M79.7 Fibromyalgia; K21.9 Gastro-esophageal reflux disease without esophagitis; Z79.02 Long term (current) use of antithrombotics/antiplatelets; Z79.84 Long term (current) use of oral hypoglycemic drugs; Z86.73 Personal history of transient ischemic attack (TIA), and cerebral infarction without residual deficits
CPT/HCPCS: 70450; 72125; 73130; 73502; 90471; 90715; 99282

== ENCOUNTER 2019-08-07 13:00 | Outpatient (RCR) | payer MEDICARE, OTHER, SELFPAY ==
[2019-07-16 01:06] VITALS: BP 140/68; PULSE 71; RESP 16; TEMP 35.8
[2019-07-17 14:57] VITALS: BP 115/62; PULSE 66; RESP 18; TEMP 36.6; BMI 33.9
--- NOTE | 2019-07-17 17:19 | PN.PCM_ITS ---
(1) Dementia Status: Chronic Current Visit: Yes Qualifiers: Code(s): F03.90 - Unspecified dementia without behavioral disturbance (2) CKD (chronic kidney disease) stage 3, GFR 30-59 ml/min Status: Chronic Current Visit: No Code(s): N18.3 - Chronic kidney disease, stage 3 (moderate) (3) Fall Status: Acute Current Visit: Yes Code(s): W19.XXXA - Unspecified fall, initial encounter (4) Traumatic hematoma of right upper arm Status: Acute Current Visit: Yes Code(s): S40.021A - Contusion of right upper arm, initial encounter (5) Non-healing wound of upper extremity Status: Acute Current Visit: Yes Qualifiers: Code(s): S41.109A - Unspecified open wound of unspecified upper arm, initial encounter (6) GERD (gastroesophageal reflux disease) Status: Chronic Current Visit: No Qualifiers: Code(s): K21.9 - Gastro-esophageal reflux disease without esophagitis Type of Wound Date of Service: 07/17/19 Chief Complaint: Healing traumatic wound and hematoma to right upper extremity which occurred on 06/08/2019 status post fall History of Wound: Is an 84-year-old white female who presents to the wound healing center today for evaluation of open hematoma and wound of the right upper extremity which initially occurred on 06/08/2019 after a fall on the ice. She has a past medical history as listed above significant for type 2 diabetes mellitus, chronic UTI, and dementia. The patient is with her today who is her caregiver at home. They state that the site opened up a week ago and has been draining. They have been utilizing Telfa and roll gauze. Deny any compression or warm compresses at this time. Does note that there is a dark bloody drainage from the site. Denies any systemic signs of infection currently. Initially went to the emergency department after it occurred and a week after for wound check and x-rays were done and were negative. Denies any other concerns at this time. According to patient her type 2 diabetes mellitus is fairly well controlled and her most recent A1c was 6.1. All other systems reviewed and negative with exception of those listed above. Patient's d oes note that he has been having difficulty dressing the wound at home. Progress of Wound: Traumatic wound site and underlying hematoma both improved this week without any signs of obvious infection at this time, wound VAC will be discontinued, patient does admit to having another fall earlier this week when she tripped over the sidewalk on the snow and fell. She was evaluated in the emergency department - Physical Exam Vital Signs Temp Pulse Resp BP 97.8 F 66 18 115/62 07/17/19 14:57 07/17/19 14:57 07/17/19 14:57 07/17/19 14:57 General: Alert, Oriented x3, Cooperative, No apparent distress HEENT: Atraumatic Oral: Moist Mucosa Lungs: Clear to auscultation, Normal air movement Cardiovascular: Regular rate, Regular Rhythm Abdomen: Soft, Non Tender Skin: Ulcer/ Wound - Traumatic wound to right upper extremity with adherent slough, no signs of infection at this time, there was 1 cm of undermining at 5:00 Wound Measurements and Assessment WC - Nurse 1 - General Ulcer Measurement Start: 07/17/19 14:57 Freq: Status: Active Protocol: Activity Type Activity Date Activity User E-Sign Co-Sign Detail Recorded Client Recorded Date Recorded By Document 07/17/19 14:57 RB [id number] 07/17/19 14:59 RB 07/17/19 14:57 Wound Center Nurse 1 [Ulcer Assessment] 1. R elbow -Combined with other wound No -Current Size (cm) - Length 0.7 -Current Size (cm) - Width 0.5 -Current Size (cm) - Depth 0.5 -Total Square Cm 0.35 -Photo Taken No -Tunneling No -Undermining/Tunneling Yes -Undermining/Tunneling Starts (O' 12 clock) -Undermining/Tunneling Ends (O'clock) 12 -Maximum Distance (cm) 0.5 -Circular Undermining No -Exudate Amt Small -Exudate Type Serosanguineous -Wound Margin Flat & Intact -Granulation Amt Medium (34-66%) -Granulation Quality Pale -Slough/Fibrin Yes -Necrosis Amt Small (1-33%) -Necrotic Tissue Type Adherent Slough -Structure Exposed N/A -Texture (Kanchan-wound Skin Appearance) Assessed, Friable -Moisture (Kanchan-wound Skin Appearance Assessed ) -Color (Kanchan-wound Skin Appearance) Assessed -Temperature (Kanchan-wound Skin No Abnormality Appearance) (Pt Warm) -Tenderness on Palpation (Kanchan-wound No Skin Appearance) -Ulcer Cleansing Wound Cleanser -Foul Odor after Cleansing No -Anesthetic Used 5% Lidocaine Gel WC - Nurse 2 - General Ulcer CM Notes Start: 07/17/19 14:57 Freq: Status: Active Protocol: Activity Type Activity Date Activity User E-Sign Co-Sign Detail Recorded Client Recorded Date Recorded By Document 07/17/19 15:14 MW [id number] 07/17/19 15:16 MW 07/17/19 15:14 Wound Center Nurse 2 [Procedure/Treatment] -Time 15:14 -Correct Patient Yes -Correct Side, Site, Position Yes -Correct Procedure Yes -Procedure Performed Yes -Type of Procedure Debridement -Clinical Debridement Subcutaneous -Post Debridement Size (cm) - Length 1.0 -Post Debridement Size (cm) - Width 0.8 -Post Debridement Size (cm) - Depth 0.4 -Total Square Cm 0.80 -Wound/Ulcer Outcome Not Healed -Ulcer Cleansing Rinsed/ Irrigated with Saline -Foul Odor after Cleansing No -Bioengineered Tissue No -Bleeding Controlled with Pressure -Offloading No -Treatment Response Procedure Tolerated Well [See Physician Procedure note for Specifics] Pain Scale: 0-10 Numeric [Pain] -Is Patient Pain Free? Yes Neurological: Neuro grossly intact Psych/Mental Status: Normal Affect, Appropriate, Alert and oriented to time, place, person, mood and affect - Limited Debridement Note Post-Debridement Measurements/Treatment - Nurse 2 - General Ulcer CM Notes Start: 07/17/19 14:57 Freq: Status: Active Protocol: Activity Type Activity Date Activity User E-Sign Co-Sign Detail Recorded Client Recorded Date Recorded By Document 07/17/19 15:14 MW [id number] 07/17/19 15:16 MW 07/17/19 15:14 Wound Center Nurse 2 1. R elbow -Time 15:14 -Correct Patient Yes -Correct Side, Site, Position Yes -Correct Procedure Yes -Procedure Performed Yes -Type of Procedure Debridement -Clinical Debridement Subcutaneous -Post Debridement Size (cm) - Length 1.0 -Post Debridement Size (cm) - Width 0.8 -Post Debridement Size (cm) - Depth 0.4 -Total Square Cm 0.80 -Wound/Ulcer Outcome Not Healed -Ulcer Cleansing Rinsed/ Irrigated with Saline -Foul Odor after Cleansing No -Bioengineered Tissue No -Bleeding Controlled with Pressure -Offloading No -Treatment Response Procedure Tolerated Well Pain Scale: 0-10 Numeric Is Patient Pain Free? Yes Wound debrided: Right upper extremity wound Type of Debridement: Excisional debridement Anesthesia Used: 5% Lidocaine Gel Depth: in the subcutaneous layer Percentage of wound debrided: 100 Instrument Used: 5mm curette Tissue Removed: Slough and devitalized tissue Severity: Fat Layer Exposed Amount of bleeding with debridement: Mild Bleeding Controlled with: Pressure Patient tolerated procedure well Assessment/Plan Active Problems Dementia (Chronic) Fall (Acute) Traumatic hematoma of right upper arm (Acute) Non-healing wound of upper extremity (Acute) Assessment: See above diagnoses Plan: The patient was seen and examined at the wound center today and was updated on the plan of care. A subcutaneous debridement was performed today. The patient tolerated the procedure well. The patients wound care will consist of: Applying Aquacel silver daily cover with gauze. Advised on compressing the site lightly with an Daniel wrap and on the use of warm compresses 3-4 times per day. Baseline bloodwork ordered And pending. Patient educated on the importance of diet on wound healing and instructed to increase protein and vitamin C intake. Patient verbalized understanding. Patient will follow up at wound healing center in one week or sooner if needed. Given the patient's caregivers difficulty with wound care, home health ordered. Discussed red flag signs and symptoms requiring urgent medical attention, and patient verbalized understanding. This note was generated with [employer] software. It may contain incorrect words, spelling, and punctuation that were not noted in checking the note before signing. Code Visit [id number]: [id number] Tamiko subq tissue 20 sq cm/<
[2019-07-31 13:06] VITALS: BP 145/63; PULSE 76; RESP 16; TEMP 36.1; BMI 33.9
--- NOTE | 2019-07-31 14:00 | PN.PCM_ITS ---
(1) Traumatic hematoma of right upper arm Status: Acute Current Visit: Yes Code(s): S40.021A - Contusion of right upper arm, initial encounter (2) Dementia Status: Chronic Current Visit: Yes Qualifiers: Code(s): F03.90 - Unspecified dementia without behavioral disturbance (3) CKD (chronic kidney disease) stage 3, GFR 30-59 ml/min Status: Chronic Current Visit: No Code(s): N18.3 - Chronic kidney disease, stage 3 (moderate) (4) Fall Status: Acute Current Visit: Yes Code(s): W19.XXXA - Unspecified fall, initial encounter (5) Non-healing wound of upper extremity Status: Acute Current Visit: Yes Qualifiers: Code(s): S41.109A - Unspecified open wound of unspecified upper arm, initial encounter (6) GERD (gastroesophageal reflux disease) Status: Chronic Current Visit: No Qualifiers: Code(s): K21.9 - Gastro-esophageal reflux disease without esophagitis Type of Wound Date of Service: 07/31/19 Chief Complaint: Healing traumatic wound and hematoma to right upper extremity which occurred on 06/08/2019 status post fall History of Wound: Is an 84-year-old white female who presents to the wound healing center today for evaluation of open hematoma and wound of the right upper extremity which initially occurred on 06/08/2019 after a fall on the ice. She has a past medical history as listed above significant for type 2 diabetes mellitus, chronic UTI, and dementia. The patient is with her today who is her caregiver at home. They state that the site opened up a week ago and has been draining. They have been utilizing Telfa and roll gauze. Deny any compression or warm compresses at this time. Does note that there is a dark bloody drainage from the site. Denies any systemic signs of infection currently. Initially went to the emergency department after it occurred and a week after for wound check and x-rays were done and were negative. Denies any other concerns at this time. According to patient her type 2 diabetes mellitus is fairly well controlled and her most recent A1c was 6.1. All other systems reviewed and negative with exception of those listed above. Patient's d oes note that he has been having difficulty dressing the wound at home. Progress of Wound: Traumatic wound site and underlying hematoma both improved this week without any signs of obvious infection at this time, wound VAC will continue to be discontinued. The patient otherwise denies any fever, chills, nausea, vomiting, shortness of breath, chest pain or pressure, palpitations, orthopnea, lower extremity edema, syncope or presyncopal episodes. - Physical Exam Vital Signs Temp Pulse Resp BP 96.9 F L 76 16 145/63 H 07/31/19 13:06 07/31/19 13:06 07/31/19 13:06 07/31/19 13:06 General: Alert, Oriented x3, Cooperative, No apparent distress HEENT: Atraumatic, PERRLA Oral: Moist Mucosa Lungs: Clear to auscultation, Normal air movement Cardiovascular: Regular rate, Regular Rhythm Abdomen: Soft, Non Tender Extremities: No clubbing, No cyanosis, No edema Skin: Ulcer/ Wound - Traumatic wound status post hematoma to right arm with some adherent slough, no signs of underlying hematoma or infection at this time Wound Measurements and Assessment WC - Nurse 1 - General Ulcer Measurement Start: 07/17/19 14:57 Freq: Status: Active Protocol: Activity Type Activity Date Activity User E-Sign Co-Sign Detail Recorded Client Recorded Date Recorded By Document 07/31/19 13:06 LENA [id number] 07/31/19 13:09 LENA 07/31/19 13:06 Wound Center Nurse 1 [Ulcer Assessment] 1. R elbow -Combined with other wound No -Current Size (cm) - Length 0.3 -Current Size (cm) - Width 0.1 -Current Size (cm) - Depth 0.2 -Total Square Cm 0.03 -Photo Taken No -Epithelialization Large 67-100% -Tunneling No -Undermining/Tunneling No -Circular Undermining No -Exudate Amt None Present -Wound Margin Flat & Intact -Granulation Amt Large (67-100%) -Granulation Quality Red -Slough/Fibrin Yes -Necrosis Amt Small (1-33%) -Necrotic Tissue Type Adherent Slough -Structure Exposed N/A -Texture (Kanchan-wound Skin Appearance) Assessed, Scarring -Moisture (Kanchan-wound Skin Appearance Assessed,Dry/ ) Scaly -Color (Kanchan-wound Skin Appearance) Assessed -Temperature (Kanchan-wound Skin No Abnormality Appearance) (Pt Warm) -Tenderness on Palpation (Kanchan-wound No Skin Appearance) -Ulcer Cleansing Rinsed/ Irrigated with Saline -Foul Odor after Cleansing No -Anesthetic Used 5% Lidocaine Gel [Edema Assessment] -Lower Limb Edema Present NA - Nurse 2 - General Ulcer CM Notes Start: 07/17/19 14:57 Freq: Status: Active Protocol: Activity Type Activity Date Activity User E-Sign Co-Sign Detail Recorded Client Recorded Date Recorded By Document 07/31/19 13:19 MW [id number] 07/31/19 13:20 MW 07/31/19 13:19 Wound Center Nurse 2 [Procedure/Treatment] 1. R elbow -Time 13:20 -Correct Patient Yes -Correct Side, Site, Position Yes -Correct Procedure Yes -Procedure Performed Yes -Type of Procedure Debridement -Clinical Debridement Subcutaneous -Post Debridement Size (cm) - Length 0.8 -Post Debridement Size (cm) - Width 0.5 -Post Debridement Size (cm) - Depth 0.2 -Total Square Cm 0.40 -Wound/Ulcer Outcome Not Healed -Ulcer Cleansing Rinsed/ Irrigated with Saline -Foul Odor after Cleansing No -Bioengineered Tissue No -Bleeding Controlled with Pressure -Offloading No -Treatment Response Procedure Tolerated Well [See Physician Procedure note for Specifics] Pain Scale: 0-10 Numeric [Pain] -Is Patient Pain Free? Yes Neurological: Neuro grossly intact Psych/Mental Status: Normal Affect, Appropriate, Alert and oriented to time, place, person, mood and affect Debridement Note Post-Debridement Measurements/Treatment - Nurse 2 - General Ulcer CM Notes Start: 07/17/19 14:57 Freq: Status: Active Protocol: Activity Type Activity Date Activity User E-Sign Co-Sign Detail Recorded Client Recorded Date Recorded By Document 07/17/19 15:14 MW [id number] 07/17/19 15:16 MW Document 07/31/19 13:19 MW [id number] 07/31/19 13:20 MW 07/17/19 07/31/19 15:14 13:19 Wound Center Nurse 2 1. R elbow -Time 15:14 13:20 -Correct Patient Yes Yes -Correct Side, Site, Position Yes Yes -Correct Procedure Yes Yes -Procedure Performed Yes Yes -Type of Procedure Debridement Debridement -Clinical Debridement Subcutaneous Subcutaneous -Post Debridement Size (cm) - Length 1.0 0.8 -Post Debridement Size (cm) - Width 0.8 0.5 -Post Debridement Size (cm) - Depth 0.4 0.2 -Total Square Cm 0.80 0.40 -Wound/Ulcer Outcome Not Healed Not Healed -Ulcer Cleansing Rinsed/ Rinsed/ Irrigated with Irrigated with Saline Saline -Foul Odor after Cleansing No No -Bioengineered Tissue No No -Bleeding Controlled with Pressure Pressure -Offloading No No -Treatment Response Procedure Procedure Tolerated Well Tolerated Well Pain Scale: 0-10 Numeric Is Patient Pain Free? Yes Yes Wound debrided: Traumatic wound to right upper arm Laterality: Right Type of Debridement: Excisional debridement Anesthesia Used: 5% Lidocaine Gel Depth: in the subcutaneous layer Percentage of wound debrided: 100 Instrument Used: 5mm curette Tissue Removed: slough And devitalized tissue Severity: Fat Layer Exposed Amount of bleeding with debridement: Mild Bleeding Controlled with: Pressure Patient tolerated procedure well Assessment/Plan Active Problems Dementia (Chronic) Fall (Acute) Traumatic hematoma of right upper arm (Acute) Non-healing wound of upper extremity (Acute) Assessment: See above diagnoses Plan: The patient was seen and examined at the wound center today and was updated on the plan of care. A subcutaneous debridement was performed today. The patient tolerated the procedure well. The patients wound care will consist of: Applying promogran daily cover with gauze. Advised on compressing the site lightly with an Daniel wrap and on the use of warm compresses 3-4 times per day. Baseline bloodwork ordered And pending. Patient educated on the importance of diet on wound healing and instructed to increase protein and vitamin C intake. Patient verbalized understanding. Patient will follow up at wound healing center in one week or sooner if needed. Given the patient's caregivers difficulty with wound care, home health ordered. Discussed red flag signs and symptoms requiring urgent medical attention, and patient verbalized understanding. This note was generated with [employer] software. It may contain incorrect words, spelling, and punctuation that were not noted in checking the note before signing. Code Visit [id number]: [id number] Tamiko subq tissue 20 sq cm/<
[2019-08-07 13:09] VITALS: BP 137/67; RESP 16; TEMP 36.5; BMI 33.9
--- NOTE | 2019-08-07 16:42 | PN.PCM_ITS ---
(1) Traumatic hematoma of right upper arm Status: Acute Current Visit: Yes Code(s): S40.021A - Contusion of right upper arm, initial encounter (2) Dementia Status: Chronic Current Visit: Yes Qualifiers: Code(s): F03.90 - Unspecified dementia without behavioral disturbance (3) CKD (chronic kidney disease) stage 3, GFR 30-59 ml/min Status: Chronic Current Visit: No Code(s): N18.3 - Chronic kidney disease, stage 3 (moderate) (4) Fall Status: Acute Current Visit: Yes Code(s): W19.XXXA - Unspecified fall, initial encounter (5) Non-healing wound of upper extremity Status: Acute Current Visit: Yes Qualifiers: Code(s): S41.109A - Unspecified open wound of unspecified upper arm, initial encounter (6) GERD (gastroesophageal reflux disease) Status: Chronic Current Visit: No Qualifiers: Code(s): K21.9 - Gastro-esophageal reflux disease without esophagitis Type of Wound Date of Service: 08/07/19 Chief Complaint: Healing traumatic wound and hematoma to right upper extremity which occurred on 06/08/2019 status post fall History of Wound: Is an 84-year-old white female who presents to the wound healing center today for evaluation of open hematoma and wound of the right upper extremity which initially occurred on 06/08/2019 after a fall on the ice. She has a past medical history as listed above significant for type 2 diabetes mellitus, chronic UTI, and dementia. The patient is with her today who is her caregiver at home. They state that the site opened up a week ago and has been draining. They have been utilizing Telfa and roll gauze. Deny any compression or warm compresses at this time. Does note that there is a dark bloody drainage from the site. Denies any systemic signs of infection currently. Initially went to the emergency department after it occurred and a week after for wound check and x-rays were done and were negative. Denies any other concerns at this time. According to patient her type 2 diabetes mellitus is fairly well controlled and her most recent A1c was 6.1. All other systems reviewed and negative with exception of those listed above. Patient's d oes note that he has been having difficulty dressing the wound at home. Progress of Wound: Traumatic wound site and underlying hematoma both healed this week without any signs of obvious infection at this time. The patient otherwise denies any fever, chills, nausea, vomiting, shortness of breath, chest pain or pressure, palpitations, orthopnea, lower extremity edema, syncope or presyncopal episodes. - Physical Exam Vital Signs Temp Pulse Resp BP 97.7 F L 76 16 137/67 H 08/07/19 13:09 07/31/19 13:06 08/07/19 13:09 08/07/19 13:09 General: Alert, Oriented x3, Cooperative, No apparent distress HEENT: Atraumatic Oral: Moist Mucosa Lungs: Clear to auscultation, Normal air movement Cardiovascular: Regular rate Abdomen: Soft, Non Tender Extremities: No clubbing, No cyanosis, No edema Skin: Ulcer/ Wound - Prior traumatic injury to right arm healed without any signs of infection at this time Wound Measurements and Assessment WC - Nurse 1 - General Ulcer Measurement Start: 07/17/19 14:57 Freq: Status: Active Protocol: Activity Type Activity Date Activity User E-Sign Co-Sign Detail Recorded Client Recorded Date Recorded By Document 08/07/19 13:09 MW [id number] 08/07/19 13:11 MW 08/07/19 13:09 Wound Center Nurse 1 [Ulcer Assessment] 1. R elbow -Combined with other wound No -Current Size (cm) - Length 0.1 -Current Size (cm) - Width 0.1 -Current Size (cm) - Depth 0.1 -Total Square Cm 0.01 -Date of Last Picture (Recall this 08/07/19 field) -Photo Taken Yes -Epithelialization Large 67-100% [Edema Assessment] -Lower Limb Edema Present NA WC - Nurse 2 - General Ulcer CM Notes Start: 07/17/19 14:57 Freq: Status: Active Protocol: Activity Type Activity Date Activity User E-Sign Co-Sign Detail Recorded Client Recorded Date Recorded By Document 08/07/19 13:34 MW [id number] 08/07/19 13:35 MW 08/07/19 13:34 Wound Center Nurse 2 [Procedure/Treatment] 1. R elbow -Time 13:35 -Correct Patient Yes -Correct Side, Site, Position Yes -Correct Procedure Yes -Procedure Performed No -Post Debridement Size (cm) - Length 0 -Post Debridement Size (cm) - Width 0 -Post Debridement Size (cm) - Depth 0 -Total Square Cm 0 -Wound/Ulcer Outcome Healed- Epithelialized [See Physician Procedure note for Specifics] Neurological: Neuro grossly intact Psych/Mental Status: Normal Affect, Appropriate, Alert and oriented to time, place, person, mood and affect - Limited at times Debridement Note Post-Debridement Measurements/Treatment WC - Nurse 2 - General Ulcer CM Notes Start: 07/17/19 14:57 Freq: Status: Active Protocol: Activity Type Activity Date Activity User E-Sign Co-Sign Detail Recorded Client Recorded Date Recorded By Document 07/17/19 15:14 MW [id number] 07/17/19 15:16 MW Document 07/31/19 13:19 MW [id number] 07/31/19 13:20 MW Document 08/07/19 13:34 MW [id number] 08/07/19 13:35 MW 07/17/19 07/31/19 08/07/19 15:14 13:19 13:34 Wound Center Nurse 2 1. R elbow -Time 15:14 13:20 13:35 -Correct Patient Yes Yes Yes -Correct Side, Site, Position Yes Yes Yes -Correct Procedure Yes Yes Yes -Procedure Performed Yes Yes No -Type of Procedure Debridement Debridement -Clinical Debridement Subcutaneous Subcutaneous -Post Debridement Size (cm) - Length 1.0 0.8 0 -Post Debridement Size (cm) - Width 0.8 0.5 0 -Post Debridement Size (cm) - Depth 0.4 0.2 0 -Total Square Cm 0.80 0.40 0 -Wound/Ulcer Outcome Not Healed Not Healed Healed- Epithelialized -Ulcer Cleansing Rinsed/ Rinsed/ Irrigated with Irrigated with Saline Saline -Foul Odor after Cleansing No No -Bioengineered Tissue No No -Bleeding Controlled with Pressure Pressure -Offloading No No -Treatment Response Procedure Procedure Tolerated Well Tolerated Well Pain Scale: 0-10 Numeric Is Patient Pain Free? Yes Yes No debridement was completed today Assessment/Plan Active Problems Dementia (Chronic) Fall (Acute) Traumatic hematoma of right upper arm (Acute) Non-healing wound of upper extremity (Acute) Assessment: See above diagnoses Plan: The patient was seen and examined at the wound center today and was updated on the plan of care. The patient's wound is healed without any signs of infection at this time. Patient educated on the importance of diet on wound healing and instructed to increase protein and vitamin C intake. Patient verbalized understanding. Patient will be discharged from the wound healing center and follow-up as needed. This note was generated with [employer] dictation software. It may contain incorrect words, spelling, and punctuation that were not noted in checking the note before signing. Code Visit Office Visits / Consults: [id number] OV L3 Est
== END 2019-08-15 23:59 ==
LOC: WC 13:00
PROVIDERS: Family Provider Family Medicine; PCP Family Medicine; Visit Provider Nurse Practitioner Family
DX: S40.021A Contusion of right upper arm, initial encounter (principal); W00.0XXA Fall on same level due to ice and snow, initial encounter; N18.3 Chronic kidney disease, stage 3 (moderate); E11.22 Type 2 diabetes mellitus with diabetic chronic kidney disease; F03.90 Unspecified dementia, unspecified severity, without behavioral disturbance, psychotic disturbance, mood disturbance, and anxiety; K21.9 Gastro-esophageal reflux disease without esophagitis
CPT/HCPCS: 11042; 99212; G0463

== ENCOUNTER → 2019-08-15 11:16 | Outpatient (CLI) | payer MEDICARE, OTHER, SELFPAY ==
[2019-08-07 13:09] VITALS: BMI 33.9
[2019-08-15 11:30] LABS: Mucous, Urine 0 SEEN /hpf (<or=2+); Red Blood Cells-Urine 0 SEEN /hpf (0-5)
[2019-08-15 13:35] LABS: Color, Urine Yellow (Yellow); Glucose, Dipstick Normal (Normal); Ketone-Dipstick 5 mg/dl (Negative); Leukocyte Esterase-Dipstick 500 /ul (Negative); Nitrite-Dipstick Positive (Negative); Occult Blood-Urine 10 /ul (Negative); Protein-Dipstick 15 mg/dl (Negative); Specific Gravity, Urine 1.025 (1.002-1.030); Urine Bilirubin Dipstick Negative (Negative); Urine Clarity Sl. Cloudy (Clear); Urine Urobilinogen Normal (Normal)
[2019-08-15 13:40] LABS: Bacteria 2+ /hpf (None Seen); White Blood Cells >100 SEEN /hpf (0-5)
[2019-08-15 13:41] LABS: Squamous Epithelial Cells - UA 0-5 SEEN /hpf (5-10)
== END ==
PROVIDERS: Family Provider Family Medicine; PCP Family Medicine; Referring Provider Family Medicine; Visit Provider Family Medicine
DX: R35.0 Frequency of micturition (principal); M35.00 Sjogren syndrome, unspecified
CPT/HCPCS: 81001; 87086; 87088; 87186

== ENCOUNTER → 2019-11-28 13:31 | Outpatient (CLI) | payer MEDICARE, OTHER, SELFPAY ==
[2019-11-28 13:38] LABS: Mucous, Urine 0 SEEN /hpf (<or=2+); Red Blood Cells-Urine 0 SEEN /hpf (0-5)
[2019-11-28 16:00] LABS: Color, Urine Yellow (Yellow); Glucose, Dipstick 250 mg/dl (Normal); Ketone-Dipstick Negative (Negative); Leukocyte Esterase-Dipstick 500 /ul (Negative); Nitrite-Dipstick Positive (Negative); Occult Blood-Urine Negative /ul (Negative); Protein-Dipstick Negative (Negative); Urine Bilirubin Dipstick Negative (Negative); Urine Clarity Cloudy (Clear); Urine Urobilinogen Normal (Normal)
[2019-11-28 17:39] LABS: Squamous Epithelial Cells - UA 0-5 SEEN /hpf (5-10)
[2019-11-28 17:40] LABS: Bacteria 3+ /hpf (None Seen); Transitional Epithelial - Ur 0-5 SEEN /hpf (0-5); White Blood Cells 25-50 SEEN /hpf (0-5)
== END ==
PROVIDERS: PCP Family Medicine; Visit Provider Family Medicine
DX: N39.0 Urinary tract infection, site not specified (principal)
CPT/HCPCS: 81001; 87086; 87088; 87186

== ENCOUNTER → 2020-10-18 | Outpatient (CLI) | payer MEDICARE, OTHER, SELFPAY ==
[2020-07-21 16:01] VITALS: BMI 33.9
== END | disposition home or self-care (01) ==
PROVIDERS: PCP Family Medicine; Referring Provider Family Medicine; Visit Provider Family Medicine
DX: N39.0 Urinary tract infection, site not specified (principal)
CPT/HCPCS: 87086; 87088; 87186

== ENCOUNTER → 2020-12-04 09:11 | Outpatient (CLI) | payer MEDICARE, OTHER, SELFPAY ==
[2020-07-21 16:01] VITALS: BMI 33.9
[2020-12-04 09:54] LABS: Absolute Lymphocyte Count 2.62 X10^3/uL (0.83-4.51); Absolute Neutrophil Count 4.3 X10^3/uL (2.0-7.7); Basophil# 0.09 X10^3/uL; Basophil% 1.1 % (0-1); Eosinophil# 0.43 X10^3/uL; Eosinophils% 5.2 % (0-5); Hematocrit 34.7 % (37-47); Hemoglobin 11.2 g/dL (12.0-15.0); Lymphocyte # 2.62 X10^3/ul (0.83-4.51); Lymphocyte % 31.8 % (19-41); Mean Corp Hgb Conc 32.3 g/dL (32-36); Mean Corpuscular Hgb 29.7 pg (27.0-32.0); Mean Platelet Vol. 10.4 fl (6.2-12.0); Monocyte# 0.73 X10^3/uL; Monocyte% 8.9 % (0-10); NRBC Flagged by Analyzer 0 % (0-5); Neutrophil # 4.32 X10^3/uL (2.7-7.7); Neutrophil % 52.5 % (47-70); Platelet Count 205 K/mm3 (150-450); RBC Distribution Width CV 12.8 % (11.6-14.6); RBC Distribution Width SD 42.5 fl (35.1-43.9); Red Blood Count 3.77 M/mm3 (4.2-5.4); White Blood Count 8.2 K/mm3 (4.4-11.0)
[2020-12-04 10:24] LABS: AST(SGOT) 18 U/L (15-37); Alanine Aminotransfer ALT/SGPT 23 U/L (13-56); Albumin, Serum 3.4 g/dL (3.2-5.0); Alkaline Phosphatase 87 U/L (45-117); Anion Gap 6 (5-15); BUN 28 mg/dL (7-18); BUN/Creat Ratio 23.5 RATIO (10-20); Calcium,Total 9.2 mg/dL (8.5-10.1); Chloride 109 mmol/L (98-107); Cholesterol 124 mg/dL (200); Creatinine, Serum 1.19 mg/dL (0.55-1.02); EST Glomerular Filtration Rate 46 mL/min (>60); Est Glom Filt Rate - Afr Amer 56 mL/min (>60); Globulin 3.5 g/dL (2.2-4.2); Glucose 131 mg/dL (74-106); High Density Lipoprotein 45 mg/dL; Potassium 4.3 mmol/L (3.5-5.1); Protein, Total 6.9 g/dL (6.4-8.2); Sodium Level 141 mmol/L (136-145); Triglycerides 96 mg/dL; Very Low Density Lipoprotein 19 mg/dL (5-40)
[2020-12-04 10:34] LABS: Hemoglobin A1c 6.8 % (3.8-5.6)
[2020-12-04 10:49] LABS: Microalbumin,Random Urine 75.5 mg/L (NO RANGE EST.); Microalbumin:Creatinine Ratio 38.9 mg/g CRE (<30 mg/g CRE)
[2020-12-09 12:49] LABS: Vitamin D,25 Hydroxy 45.9 ng/mL
== END ==
PROVIDERS: PCP Family Medicine; Visit Provider Family Medicine
DX: E11.22 Type 2 diabetes mellitus with diabetic chronic kidney disease (principal); E11.40 Type 2 diabetes mellitus with diabetic neuropathy, unspecified; N18.30 Chronic kidney disease, stage 3 unspecified; D63.1 Anemia in chronic kidney disease; E55.9 Vitamin D deficiency, unspecified; R68.89 Other general symptoms and signs
CPT/HCPCS: 36415; 80053; 80061; 82043; 82306; 82570; 83036; 85025

== ENCOUNTER → 2021-05-25 20:00 | Outpatient (CLI) | payer MEDICARE, OTHER, SELFPAY | PROVIDERS: PCP Family Medicine; Referring Provider Nurse Practitioner Family; Visit Provider Nurse Practitioner Family | DX: G47.33 Obstructive sleep apnea (adult) (pediatric) (principal) | CPT/HCPCS: 95811 ==

== ENCOUNTER 2021-09-11 14:21 | Observation (INO) | payer MEDICARE, OTHER, SELFPAY ==
[2021-09-11] VITALS (7 sets, daily range): BP systolic 91–155; BP diastolic 58–94; PULSE 72–96; RESP 16–20; TEMP 36.4–36.8; O2SAT 95–98; BMI 39.6; BMI 36.7
--- NOTE | 2021-09-11 15:14 | CT_ITS ---
STUDY: CT BRAIN WITHOUT CONTRAST REASON FOR EXAM: Female, 86 years old. Head trauma RADIATION DOSAGE (If Supplied By Facility): CTDIvol = ( 44.99 ) mGy, DLP = ( 812.98 ) mGycm TECHNIQUE: Transaxial CT imaging of the brain was performed without administration of intravenous contrast material. Individualized dose optimization techniques were used for this CT. COMPARISON: 07/14/2019. FINDINGS: Small right frontal scalp hematoma. Preorbital soft tissue swelling. Normal calvarium. There is moderate cerebral atrophy with widening of the extra-axial spaces and ventricular dilatation. There are areas of decreased attenuation within the white matter tracts of the supratentorial brain, consistent with microvascular disease changes. There is no intracranial hemorrhage. There are no findings of an acute ischemic infarction. 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 Normal visualized paranasal sinuses. CT/Brain/Head without Contrast IMPRESSION: 1. Scalp hematoma and soft tissue swelling. 2. No acute intracranial findings. 3. 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 4. Microvascular ischemic changes. Atrophy. Electronically Signed: Netta Ruiz MD at 17:42 EST Reading Location ID and State: [id number] / Tel , Service support ,
--- NOTE | 2021-09-11 15:16 | CT_ITS ---
STUDY: CT CERVICAL SPINE WITHOUT CONTRAST REASON FOR EXAM: Female, 86 years old. trauma RADIATION DOSAGE (If Supplied By Facility): CTDIvol = ( 31.66 ) mGy, DLP = ( 654.36 ) mGycm TECHNIQUE: High resolution transaxial imaging was performed without contrast material. Sagittal and coronal images were reconstructed. Individualized dose optimization techniques were used for this CT. COMPARISON: None FINDINGS: Normal craniovertebral junction. Normal anterior atlantoaxial articulation. Normal odontoid process. Normal cervical lordosis. No demonstrated fracture. C2-3: Normal disc height and morphology. Normal central canal. Foramina are patent. Facet hypertrophy. C3-4: Disc space narrowing. Normal central canal. Foramina are patent. C4-5: Normal disc height and morphology. 2 mm degenerative anterolisthesis. No demonstrated fracture. Normal central canal. Foramina are patent. C5-6: Marked disc space narrowing. Normal central canal. Foraminal stenosis is mild on the right and severe on the left due to uncinate hypertrophy. C6-7: Marked disc space narrowing. Normal central canal. Mild foraminal encroachment due to uncinate hypertrophy. C7-T1: Normal disc height and morphology. Normal central canal. Foramina are patent. Normal visualized soft tissue structures. CT/Spine Cervical without Contras IMPRESSION: No evidence of cervical trauma. Mild degenerative changes detailed above. Electronically Signed: Netta Ruiz MD at 18:51 EST Reading Location ID and State: [id number] / Tel , Service support ,
--- NOTE | 2021-09-11 15:17 | ED.VIS.FALL ---
HPI HPI - Fall History of Present Illness Chief Complaint: Fall Detail of Chief Complaint: Head trauma with right forehead laceration. Informant: patient and spouse/S.O. Occured/Mechanism Occurred: Today and Hours Mechanism/Context: Yes same level fall and Yes trip Usually ambulates: Without assistance Pain/Injury Pain Location: head Current Severity: Moderate Maximum Severity: Moderate Associated Symptoms Associated Symptoms: Negative for Parasthesias, Weakness, Loss of function, Inability to ambulate, Loss of consciousness and Amnesia Narrative Narrative: 86-year-old female history of CVA, diabetes and on Plavix. She and her were leaving their home she tripped on some pavers and fell and he thinks she may have hit her head on a landscaping bowl. Patient has a 3 inch laceration to her right forehead and is bleeding profusely. No LOC. She denies neck pain. Complaining of right hand and left knee discomfort. Prior to the fall she was feeling fine. Tetanus Immunization: Unknown Prior similar symptoms: No Recent Illness/Hospitalization: No PFSH PFSH Medical History (Updated 09/11/21 @ 16:[address] Moncho Thomas MD) Arthritis History of stroke Type 2 diabetes mellitus without complications Home Medications omeprazole 40 mg PO DAILY 01/06/14 [History Last Taken 01/05/14] cholecalciferol (vitamin D3) 1,000 unit PO DAILY 08/28/16 [History Last Taken Unknown] donepezil 10 mg PO QHS 08/28/16 [History Last Taken Unknown] glimepiride 2 mg PO DAILY 08/28/16 [History Last Taken Unknown] metformin 500 mg PO DAILY 08/28/16 [History Last Taken Unknown] cinnamon bark 1,000 mg PO DAILY 11/30/17 [History Last Taken Unknown] erythromycin 1 applicatio EACH EYE DAILY 11/30/17 [History Last Taken Unknown] atorvastatin 80 mg PO QHS #30 tab 12/03/17 [Rx Last Taken Unknown] clopidogrel 75 mg PO DAILY #30 tab 12/03/17 [Rx Last Taken Unknown] ljueklrz-hbb-XR-lycopen-lutein 1 ea PO BID 12/03/18 [History Last Taken Unknown] naproxen sodium 220 mg PO DAILY 12/03/18 [History Last Taken Unknown] Vitamin C 1 tab PO BID 06/08/19 [History Last Taken Unknown] melatonin 10 mg PO QHS 06/08/19 [History Last Taken Unknown] nitrofurantoin monohyd/m-cryst 1 tab PO DAILY 06/08/19 [History Last Taken Unknown] memantine 10 mg PO BID 09/11/21 [History Last Taken Unknown] modafinil 100 mg PO DAILY 09/11/21 [History Last Taken Unknown] Allergy/AdvReac Type Severity Reaction Status Date / Time No Known Allergies Allergy Verified 09/11/21 14:41 Family History Mother Alzheimer disease Brother Alzheimer disease Aunt Alzheimer disease Father Heart disease Surgical History (Updated 09/11/21 @ 16:54 by Gwen Estrada NP, BAKER-C) H/O lumpectomy H/O: hysterectomy History of tonsillectomy Social History household members: spouse Smoking Status: Never smoker alcohol intake: never substance use type: does not use ROS ROS ED ROS Narrative No recent illness. Constitutional Constitutional ED: Denies fever(s) Eyes Eyes: Denies change in vision ENT ENT ED: Denies ear pain Cardiovascular Cardiovascular: Denies chest pain Respiratory/Chest Respiratory/Chest: Denies dyspnea Gastrointestinal Gastrointestinal: Denies abdominal pain Genitourinary Genitourinary ED: Denies dysuria Musculoskeletal Musculoskeletal: Denies myalgias Integumentary Denies rash Neurologic Neurologic: Reports headache(s) Psychiatric Psychiatric: Denies depression Endocrine Endocrinology: Denies polyuria Hematologic/Lymphatic Hematologic/Lymphatic: Denies easy bruising Allergic/Immunologic Allergic/Immunologic ED: Denies urticaria EXAM Physical Exam Narrative Exam Narrative: 86-year-old female vital signs are stable. She is afebrile. She does not look septic or toxic. She is lying in bed. Head dressing in place but there is a substantial amount of blood in her hair and on the bed probably 1 unit or more blood. She has pulsatile bleeding from the. Proximal end of the forehead laceration. H EENT exam pupils round reactive light. Is about a 3 inch laceration from her forehead down to her right upper eyelid. It involves the skin and subcu tissue. There is substantial bleeding with one pulsatile arterial bleeder from the skin on the proximal end of the wound. There is no foreign body. There is swelling and bruising about her right eye. But the eyeball itself and pupils are unremarkable bilaterally. No dental injury. Scalp otherwise is nontender. C-spine nontender. Trachea midline. Lungs are clear equal symmetrical. Heart regular rhythm no murmur. Chest wall nontender. Abdomen soft nontender. Pelvic girdle intact. Moving all 4 extremities. No deformities. Small bruising to her right hand and tenderness. But able to open and close the hand. Wrist is nontender.. Left upper extremity unremarkable. Left knee small bruising. Able to flex and extend both hips knees ankles and feet. No shortening or rotation. Back is nontender. Neurologically she is awake. She is alert. She answers questions and follows commands. Const Vital Signs: 09/11/21 14:22 09/11/21 14:42 09/11/21 15:37 Temperature 98.3 F Temperature Source Temporal Pulse Rate 77 75 Respiratory Rate 16 Respiratory Effort Normal Non-Labored Respiratory Depth Normal Respiratory Pattern Normal Blood Pressure 155/75 H 135/76 H Blood Pressure Mean 101 95 Pulse Ox 97 Oxygen Delivery Method Room Air 09/11/21 16:21 Temperature Temperature Source Pulse Rate 84 Respiratory Rate 20 H Respiratory Effort Respiratory Depth Respiratory Pattern Blood Pressure 124/65 H Blood Pressure Mean 84 Pulse Ox 96 Oxygen Delivery Method Room Air Positive well nourished, well developed and obese; Negative for cachectic, contractures or unkempt General Appearance ED: well developed; Negative for unkempt, cachectic, contractures or NAD Nutritional Appearance: obese; Negative for cachectic HEENT Reports normocephalic HEENT Narrative: Large vertical laceration right forehead involving the forehead down to the right eyelid. Pulsatile bleeding from a skin arteriole. No foreign body. Wound was cleaned with Shur-Clens. Washed with saline and explored. Locally anesthetized with lidocaine with epinephrine and closed using 9 simple interrupted 4-0 Ethilon sutures. Proper hemostasis and wound closure is obtained. I used fluoroscopy because of the amount of tension I want to get to help stop the bleeding. trauma and tenderness; Negative for atraumatic Eyes PERRL and EOMs intact bilaterally General Eye ED: Negative for pale conjunctiva Neck full ROM, no lymphadenopathy and supple General: Negative for tenderness Chest Wall inspection of chest normal and palpation of chest normal Resp normal respiratory effort, no retractions and clear to auscultation bilaterally Auscultation: Negative for rales, rhonchi or wheezes Cardio regular rate, regular rhythm, S1 normal heart sound, S2 normal heart sound and no murmurs GI non-tender, non-distended and no masses Auscultation: normoactive bowel sounds Palpation: soft; Negative for guarding Back/Spine no CVA tenderness General Back: Negative for CVA tenderness Cervical Spine: Negative for cervical spine tenderness Thoracic Spine / Upper Back: Negative for thoracic spinal tenderness Lumbar Spine / Lower Back: Negative for lumbar spinal tenderness or paraspinal muscle tenderness Extremity full ROM, no calf tenderness and no pedal edema; Negative for normal to inspection Extremity Narrative: Tenderness right hand mild bruising. No deformity. Mild bruising anterior left knee. Full flexion-extension of both hips, knees ankles and feet. Neuro moves all extremities and no focal motor deficits Hank Coma Scale: document GCS findings Spontaneous Obeys Commands Confused 14 Sensorium / Orientation: alert, oriented to person, oriented to place and confused; Negative for lethargic or stuporous Psych mental status grossly normal and thought process normal Appearance: Negative for unkempt Skin Lesions: no lesions and No lesion noted Rashes: no rashes and No rashes noted Trauma: laceration; Negative for abrasion MDM MDM MDM Narrative Medical decision making narrative: 86-year-old female tripped and fell significant laceration right forehead. That was closed. She will undergo a CAT scan of her head neck. Chest x-ray. Right hand x-ray. Left knee x-ray. CBC and chemistry be obtained. Tetanus to be updated. Repeat exam patient is doing well at 4:52 PM. I reexamined her there is no new findings. She is moving her extremities. She is awake and alert. The bleeding has been well controlled on the forehead laceration. I went over test results with her and her . She will be admitted overnight for observation. The the hospitalist has already been down to see the patient. Lab Data Attestation: I reviewed the patient's lab results. Lab results narrative: CBC shows a white count 12.2. H&H 10.2 and 31. She runs a chronic anemia her hemoglobin is often around 11. Platelets 182. Chemistries and PT/INR are pending. Labs: Laboratory Results - last 24 hr 09/11/21 16:36 WBC 12.2 H RBC 3.36 L Hgb 10.2 L Hct 31.0 L MCV 92.3 MCH 30.4 MCHC 32.9 RDW Std Deviation 44.1 H RDW Coeff of Marcio 13.2 Plt Count 182 MPV 10.3 Radiography Diagnostic Testing: Clinical Impression(s) from Imaging Studies Chest X-Ray 09/11/21 16:05 IMPRESSION: No acute cardiopulmonary process. Electronically Signed: Kuldip Benjamin MD at 16:38 EST Reading Location ID and State: [facility] / [place] Tel , Service support , Hand X-Ray 09/11/21 16:05 IMPRESSION: No acute fracture or dislocation in the right hand. Polyarticular osteoarthritis. Mild diffuse osteopenia. No radiopaque foreign body. IV catheter on the dorsum of the hand. Electronically Signed: Kuldip Benjamin MD at 16:39 EST Reading Location ID and State: [facility] / [place] Tel , Service support , Knee X-Ray 09/11/21 16:05 IMPRESSION: No acute fracture or dislocation in the left knee. Mild tricompartmental osteoarthritis. No significant knee joint effusion. Vascular calcification. Electronically Signed: Kuldip Benjamin MD at 16:39 EST Reading Location ID and State: [facility] / [place] Tel , Service support , CT of the brain shows no acute intracranial bleed is read by myself awaiting radiologist formal interpretation. CT of the C-spine again shows no acute fracture but awaiting radiologist interpretation. Chest x-ray portable single view shows no acute abnormality. Chronic changes no fractures. No infiltrate. Interpreted by myself and radiologist. Hand x-ray 3 views interpreted myself and the radiologist shows no acute fracture. Arthritis. Knee x-ray 4 views shows no acute abnormality interpreted by myself and the radiologist. Procedures Lacerations Right forehead laceration: Length: 3 in Depth: Sub Q Shape: Linear Prep: Solitario Laceration repair: Irrigated, Lidocaine with epi, Local, Skin sutures and Wound explored Number of Sutures/Ramón: 9 Suture Information: Ethilon and 4-0 Comment: Right forehead laceration. Irregular. Approximately 3 inches. Vertical. Local anesthetized lidocaine with epinephrine. Cleaned with Shur-Clens. Washed and irrigated with saline. Explored. Closed using 9 simple interrupted 4-0 Ethilon sutures. Proper hemostasis wound closure was obtained. There was a skin arteriole that was bleeding that stopped with suturing. Patient tolerated procedure well. Discharge Plan Triage Chief Complaint: Fall ED Provider: Moncho Thomas Dx/Rx/DC Orders Clinical Impression: Fall, Head injury, Forehead laceration, Anemia, blood loss, Contusion of knee, left Prescriptions: No Action omeprazole 40 MG capsule 40 mg PO DAILY RF: 0 metformin 500 MG tablet 500 mg PO DAILY RF: 0 donepezil 5 MG tablet 10 mg PO QHS RF: 0 cholecalciferol (vitamin D3) 1,000 UNIT capsule 1,000 unit PO DAILY RF: 0 glimepiride 4 MG tablet 2 mg PO DAILY RF: 0 erythromycin 5 MG/GRAM ointment 1 applicatio EACH EYE DAILY RF: 0 cinnamon bark 500 MG capsule 1,000 mg PO DAILY RF: 0 atorvastatin 80 MG tablet 80 mg PO QHS Qty: 30 RF: 0 clopidogrel 75 MG tablet 75 mg PO DAILY Qty: 30 RF: 0 arckcszq-pol-VB-lycopen-lutein 1 EACH tablet 1 ea PO BID RF: 0 naproxen sodium 220 MG capsule 220 mg PO DAILY RF: 0 nitrofurantoin monohyd/m-cryst 100 MG capsule 1 tab PO DAILY RF: 0 melatonin 10 MG tablet 10 mg PO QHS RF: 0 Vitamin C 1 tab PO BID RF: 0 modafinil 100 mg tablet 100 mg PO DAILY RF: 0 memantine 10 mg tablet 10 mg PO BID RF: 0 Primary Care Provider: Mello Fowler Referrals: Mello Fowler DO [Primary Care Provider] - Disposition Disposition: Acute Care Hospital [facility]
--- NOTE | 2021-09-11 16:05 | RAD_ITS ---
STUDY: X-RAY - RIGHT HAND REASON FOR EXAM: Female, 86 years old. Pain after fall TECHNIQUE: 3 view(s) of the hand. COMPARISON: None. FINDINGS: Please see the impression. RAD/Hand Min 3 Views IMPRESSION: No acute fracture or dislocation in the right hand. Polyarticular osteoarthritis. Mild diffuse osteopenia. No radiopaque foreign body. IV catheter on the dorsum of the hand. Electronically Signed: Kuldip Benjamin MD at 16:39 EST ,
--- NOTE | 2021-09-11 16:05 | RAD_ITS ---
STUDY: X-RAY - LEFT KNEE REASON FOR EXAM: Female, 86 years old. Pain after fall TECHNIQUE: 4 view(s) of the knee. COMPARISON: None. FINDINGS: Please see the impression. RAD/Knee 4 or More Views IMPRESSION: No acute fracture or dislocation in the left knee. Mild tricompartmental osteoarthritis. No significant knee joint effusion. Vascular calcification. Electronically Signed: Kuldip Benjamin MD at 16:39 EST ,
--- NOTE | 2021-09-11 16:05 | RAD_ITS ---
STUDY: X-RAY CHEST REASON FOR EXAM: Female, 86 years old. Pain after fall TECHNIQUE: 1 view COMPARISON: 11/30/2017 FINDINGS: Cardiomediastinal silhouette is unremarkable. Right costophrenic angle is sharp. Left costophrenic angle remains blunted. Lungs are clear. The trachea is midline. There is no pneumothorax. A 0.5 cm focus of calcific tendinitis in the right rotator cuff tendons. Multiple thoracic spondylosis. No acute displaced fracture or dislocation. RAD/Chest 1 View (Portable) IMPRESSION: No acute cardiopulmonary process. Electronically Signed: Kuldip Benjamin MD at 16:38 EST ,
[2021-09-11] MEDS: Diphth,Pertuss(Acell),Tet Vac 0.5 ML Vial IM (16:19)
--- NOTE | 2021-09-11 16:46 | HP.PCM.HOS_ITS ---
Documented by User: Gwen Estrada NP, CONTRACT ADMINISTRATION SPECIALIST-C 09/11/21 17:05 HPI - General HPI Narrative LIZA HANCOCK, is a 86 F who presents to the emergency room due to fall with head laceration. Patient tripped outside and hit her head on a landscaping bowl. She notes significant amount of blood. She denies loss of consciousness however patient is a poor informant due to underlying dementia. states current mentation is at baseline and that she is typically oriented to self only. also denies loss of consciousness. Denies other recent falls at home. Patient has a past medical history of CVA, dementia, chronic kidney disease stage III, hyperlipidemia, type 2 diabetes mellitus, GERD, Sjogren's syndrome, chronic normocytic anemia. [facility] Medical History (Updated 09/11/21 @ 16:[address] Moncho Thomas MD) Arthritis History of stroke Type 2 diabetes mellitus without complications Home Medications omeprazole 40 mg PO DAILY 01/06/14 [History Last Taken 01/05/14] cholecalciferol (vitamin D3) 1,000 unit PO DAILY 08/28/16 [History Last Taken Unknown] donepezil 10 mg PO QHS 08/28/16 [History Last Taken Unknown] glimepiride 2 mg PO DAILY 08/28/16 [History Last Taken Unknown] metformin 500 mg PO DAILY 08/28/16 [History Last Taken Unknown] cinnamon bark 1,000 mg PO DAILY 11/30/17 [History Last Taken Unknown] erythromycin 1 applicatio EACH EYE DAILY 11/30/17 [History Last Taken Unknown] atorvastatin 80 mg PO QHS #30 tab 12/03/17 [Rx Last Taken Unknown] clopidogrel 75 mg PO DAILY #30 tab 12/03/17 [Rx Last Taken Unknown] elqpplgi-egw-JT-lycopen-lutein 1 ea PO BID 12/03/18 [History Last Taken Unknown] naproxen sodium 220 mg PO DAILY 12/03/18 [History Last Taken Unknown] Vitamin C 1 tab PO BID 06/08/19 [History Last Taken Unknown] melatonin 10 mg PO QHS 06/08/19 [History Last Taken Unknown] nitrofurantoin monohyd/m-cryst 1 tab PO DAILY 06/08/19 [History Last Taken Unknown] memantine 10 mg PO BID 09/11/21 [History Last Taken Unknown] modafinil 100 mg PO DAILY 09/11/21 [History Last Taken Unknown] Allergy/AdvReac Type Severity Reaction Status Date / Time No Known Allergies Allergy Verified 09/11/21 14:41 Family History Mother Alzheimer disease Brother Alzheimer disease Aunt Alzheimer disease Father Heart disease Surgical History (Updated 09/11/21 @ 16:54 by Gwen Estrada NP, CONTRACT ADMINISTRATION SPECIALIST-C) H/O lumpectomy H/O: hysterectomy History of tonsillectomy Social History (Updated 09/11/21 @ 16:55 by Gwen Estrada NP, CONTRACT ADMINISTRATION SPECIALIST-C) household members: spouse Smoking Status: Never smoker alcohol intake: never substance use type: does not use ROS ROS Narrative Head compression dressing with dried blood. Right eye ecchymosis/swelling. Constitutional Constitutional: Denies change in weight, chills, fatigue, fever(s) or weakness Cardiovascular Cardiovascular: Denies chest pain, edema, lightheadedness, palpitations or synco pe Respiratory/Chest Respiratory/Chest: Denies cough, dyspnea, productive cough, shortness of breath at rest, shortness of breath with exertion or wheezing Gastrointestinal Gastrointestinal: Denies abdominal pain, constipation, diarrhea, nausea or vomiting Genitourinary Genitourinary: Denies burning urination, difficulty urinating, dysuria, hematuria, urinary frequency, urinary incontinence or urinary urgency Musculoskeletal Musculoskeletal: Denies back pain, joint pain or muscle weakness Integumentary Integumentary: Denies erythema, lesions, rash or wounds Neurologic Neurologic: Denies abnormal speech, confusion, dizziness, focal weakness, numbness, paresthesias, seizure-like activity or syncope Psychiatric Psychiatric: Denies anxiety or depression Hematologic/Lymphatic Hematologic/Lymphatic: Denies anemia, easy bleeding or easy bruising Allergic/Immunologic Allergic/Immunologic: Denies hives or asthma Vital Signs Vital Signs Vital Signs: 09/11/21 14:22 09/11/21 14:42 09/11/21 15:37 Temperature 98.3 F Temperature Source Temporal Pulse Rate 77 75 Respiratory Rate 16 Respiratory Effort Normal Non-Labored Respiratory Depth Normal Respiratory Pattern Normal Blood Pressure 155/75 H 135/76 H Blood Pressure Mean 101 95 Pulse Ox 97 Oxygen Delivery Method Room Air 09/11/21 16:21 Temperature Temperature Source Pulse Rate 84 Respiratory Rate 20 H Respiratory Effort Respiratory Depth Respiratory Pattern Blood Pressure 124/65 H Blood Pressure Mean 84 Pulse Ox 96 Oxygen Delivery Method Room Air Weight Weight: 223 lb 12.307 oz Body Mass Index (BMI) 39.6 Physical Exam Const oriented x3 and no apparent distress Constitutional Narrative: Head compression dressing intact with dried blood. Orientation / Consciousness: awake and oriented to person Nutritional Appearance: obese HEENT normocephalic and moist oral mucous membranes Eyes PERRL, EOMs intact bilaterally and conjunctivae normal Neck no lymphadenopathy Resp normal respiratory effort and clear to auscultation bilaterally Cardio regular rate, regular rhythm and no murmurs Peripheral Pulses: pulses 2+ throughout GI normal to inspection, nondistended, normoactive bowel sounds, non-tender and non-distended Extremity normal to inspection Skin no rashes or lesions noted Lesions: no lesions Rashes: no rashes Trauma: no lacerations or abrasions Neuro CN's II-XII intact bilaterally, no focal motor deficits, no sensory deficits noted and deep tendon reflexes 2+ bilaterally Psych mental status grossly normal and affect normal Results Lab / Micro Data Result Diagrams: 09/11/21 16:36 09/11/21 16:36 Radiology Impression Chest X-Ray 09/11/21 16:05 IMPRESSION: No acute cardiopulmonary process. Electronically Signed: Kuldip Benjamin MD at 16:38 EST Reading Location ID and State: [facility] / [place] Tel , Service support , Hand X-Ray 09/11/21 16:05 IMPRESSION: No acute fracture or dislocation in the right hand. Polyarticular osteoarthritis. Mild diffuse osteopenia. No radiopaque foreign body. IV catheter on the dorsum of the hand. Electronically Signed: Kuldip Benjamin MD at 16:39 EST , Knee X-Ray 09/11/21 16:05 IMPRESSION: No acute fracture or dislocation in the left knee. Mild tricompartmental osteoarthritis. No significant knee joint effusion. Vascular calcification. Electronically Signed: Kuldip Benjamin MD at 16:39 EST , Assessment & Plan Assessment/Plan (1) Fall: (2) Head injury: PLAN: 1. Fall with right forehead laceration-sutured in ED, will need removed in 10 days. Continue compression dressing. As needed pain regimen. Neurochecks. PT/OT. 2. Dementia, without known behavioral disturbance history-on Aricept. 3. Type 2 diabetes mellitus-continue glimepiride. Accu-Cheks with sliding scale insulin. 4. Chronic kidney disease stage IIIa-at baseline, trend BMP. 5. Chronic normocytic anemia- stable, trend CBC. 6. History of CVA-hold Plavix, continue statin. 7. Hyperlipidemia-continue statin. 8. GERD-on PPI. DVT prophylaxis-SCDs This patient was seen by KALEIGH Bustamante under the supervision of Dr. Tobias. Time spent examining patient, reviewing data and subsequent management of care: 16 Minutes Documented by User: Dr. Yaima Tobias MD 09/11/21 17:55 HPI - General General Date of Admission: 09/11/21 [facility] Medical History (Updated 09/11/21 @ 16:[address] Moncho Thomas MD) Arthritis History of stroke Type 2 diabetes mellitus without complications Home Medications omeprazole 40 mg PO DAILY 01/06/14 [History Last Taken 01/05/14] cholecalciferol (vitamin D3) 1,000 unit PO DAILY 08/28/16 [History Last Taken Unknown] donepezil 10 mg PO QHS 08/28/16 [History Last Taken Unknown] glimepiride 2 mg PO DAILY 08/28/16 [History Last Taken Unknown] metformin 500 mg PO DAILY 08/28/16 [History Last Taken Unknown] cinnamon bark 1,000 mg PO DAILY 11/30/17 [History Last Taken Unknown] erythromycin 1 applicatio EACH EYE DAILY 11/30/17 [History Last Taken Unknown] atorvastatin 80 mg PO QHS #30 tab 12/03/17 [Rx Last Taken Unknown] clopidogrel 75 mg PO DAILY #30 tab 12/03/17 [Rx Last Taken Unknown] ccnwbnic-ohb-OR-lycopen-lutein 1 ea PO BID 12/03/18 [History Last Taken Unknown] naproxen sodium 220 mg PO DAILY 12/03/18 [History Last Taken Unknown] Vitamin C 1 tab PO BID 06/08/19 [History Last Taken Unknown] melatonin 10 mg PO QHS 06/08/19 [History Last Taken Unknown] nitrofurantoin monohyd/m-cryst 1 tab PO DAILY 06/08/19 [History Last Taken Unknown] memantine 10 mg PO BID 09/11/21 [History Last Taken Unknown] modafinil 100 mg PO DAILY 09/11/21 [History Last Taken Unknown] Allergy/AdvReac Type Severity Reaction Status Date / Time No Known Allergies Allergy Verified 09/11/21 14:41 Family History Mother Alzheimer disease Brother Alzheimer disease Aunt Alzheimer disease Father Heart disease Surgical History (Updated 09/11/21 @ 16:54 by Gwen Estrada NP, CONTRACT ADMINISTRATION SPECIALIST-C) H/O lumpectomy H/O: hysterectomy History of tonsillectomy Social History (Updated 09/11/21 @ 16:55 by Gwen Estrada NP, CONTRACT ADMINISTRATION SPECIALIST-C) household members: spouse Smoking Status: Never smoker alcohol intake: never substance use type: does not use Results Lab / Micro Data Result Diagrams: 09/11/21 16:36 09/11/21 16:36
[2021-09-11 16:48] LABS: Hemoglobin 10.2 g/dL (12.0-15.0); Mean Corp Hgb Conc 32.9 g/dL (32-36); Mean Corpuscular Hgb 30.4 pg (27.0-32.0); Mean Corpuscular Volume 92.3 fL (81-99); Mean Platelet Vol. 10.3 fl (6.2-12.0); Platelet Count 182 K/mm3 (150-450); RBC Distribution Width CV 13.2 % (11.6-14.6); RBC Distribution Width SD 44.1 fl (35.1-43.9); Red Blood Count 3.36 M/mm3 (4.2-5.4); White Blood Count 12.2 K/mm3 (4.4-11.0)
[2021-09-11 16:57] LABS: International Normalized Ratio 1.1; Prothrombin Time (Protime)PT. 13.7 SECONDS (11.7-14.9)
[2021-09-11 16:58] LABS: Partial Thromboplast Time 29.6 Seconds (24.1-36.2)
[2021-09-11 17:09] LABS: Anion Gap 5 (5-15); BUN 18 mg/dL (7-18); BUN/Creat Ratio 16.7 RATIO (10-20); Calcium,Total 9.2 mg/dL (8.5-10.1); Chloride 109 mmol/L (98-107); Creatinine, Serum 1.08 mg/dL (0.55-1.02); EST Glomerular Filtration Rate 51 mL/min (>60); Est Glom Filt Rate - Afr Amer 62 mL/min (>60); Glucose 248 mg/dL (74-106); Potassium 4.1 mmol/L (3.5-5.1); Sodium Level 140 mmol/L (136-145)
[2021-09-11 19:06] LABS: Bedside Glucose 174 mg/dL (70-110)
[2021-09-11] MEDS: Acetaminophen 500 MG Tablet 1000 MG PO (19:31)
[2021-09-11] MEDS: MELATONIN 10 MG TABLET PO (22:58)
[2021-09-11] MEDS: Atorvastatin Calcium 80 MG Tablet PO (22:58)
[2021-09-11] MEDS: Donepezil HCl 10 MG Tablet PO (22:58)
[2021-09-11] MEDS: Memantine Hydrochloride 10 MG Tablet PO (22:58)
[2021-09-11 23:11] LABS: Bedside Glucose 201 mg/dL (70-110)
[2021-09-11] MEDS: Insulin Lispro 100 UNIT/ML INSULN.PEN SC (23:12)
[2021-09-11] MEDS: oxyCODONE 5 MG Tablet PO (23:15)
[2021-09-12] MEDS: oxyCODONE 5 MG Tablet PO ×2 (03:42→10:48)
[2021-09-12] MEDS: Acetaminophen 500 MG Tablet 1000 MG PO ×2 (03:43→11:24)
[2021-09-12 03:55] VITALS: BP 129/78; PULSE 75; RESP 18; TEMP 36.1; O2SAT 99
[2021-09-12] MEDS: Insulin Lispro 100 UNIT/ML INSULN.PEN SC ×2 (05:49→11:23)
[2021-09-12 05:55] LABS: Bedside Glucose 162 mg/dL (70-110)
[2021-09-12 05:57] LABS: Absolute Lymphocyte Count 3.12 X10^3/uL (0.83-4.51); Absolute Neutrophil Count 7.4 X10^3/uL (2.0-7.7); Basophil# 0.07 X10^3/uL; Basophil% 0.6 % (0-1); Eosinophil# 0.35 X10^3/uL; Eosinophils% 2.9 % (0-5); Hematocrit 28.6 % (37-47); Hemoglobin 9.6 g/dL (12.0-15.0); Lymphocyte # 3.12 X10^3/ul (0.83-4.51); Lymphocyte % 26.2 % (19-41); Mean Corp Hgb Conc 33.6 g/dL (32-36); Mean Corpuscular Hgb 30.1 pg (27.0-32.0); Mean Corpuscular Volume 89.7 fL (81-99); Mean Platelet Vol. 10.3 fl (6.2-12.0); Monocyte# 0.91 X10^3/uL; Monocyte% 7.6 % (0-10); NRBC Flagged by Analyzer 0 % (0-5); Neutrophil # 7.41 X10^3/uL (2.7-7.7); Neutrophil % 62.3 % (47-70); Platelet Count 182 K/mm3 (150-450); RBC Distribution Width CV 12.9 % (11.6-14.6); RBC Distribution Width SD 42.6 fl (35.1-43.9); Red Blood Count 3.19 M/mm3 (4.2-5.4); White Blood Count 11.9 K/mm3 (4.4-11.0)
[2021-09-12 06:25] LABS: Anion Gap 6 (5-15); BUN 18 mg/dL (7-18); BUN/Creat Ratio 18.5 RATIO (10-20); Calcium,Total 8.5 mg/dL (8.5-10.1); Chloride 107 mmol/L (98-107); Creatinine, Serum 0.97 mg/dL (0.55-1.02); EST Glomerular Filtration Rate 58 mL/min (>60); Est Glom Filt Rate - Afr Amer 70 mL/min (>60); Estimated Creatinine Clearance 33.54 ml/min; Glucose 159 mg/dL (74-106); Potassium 3.5 mmol/L (3.5-5.1); Sodium Level 139 mmol/L (136-145)
[2021-09-12 09:30] VITALS: BP 125/66; PULSE 87; RESP 18; TEMP 36.8; O2SAT 97
--- NOTE | 2021-09-12 09:30 | WOUNDNOTE ---
wound photo: right forehead
--- NOTE | 2021-09-12 09:33 | PN.HOSP_ITS ---
Objective Data Objective Data Vital Signs: Vital Signs Temp Pulse Resp BP Pulse Ox 97 F L 75 18 129/78 H 99 09/12/21 03:55 09/12/21 03:55 09/12/21 03:55 09/12/21 03:55 09/12/21 03:55 Oxygen Delivery Method Room Air Weight: 94.092 kg Body Mass Index (BMI) 36.7 Lab / Micro Data Result Diagrams: 09/12/21 05:40 09/12/21 05:40 Labs: Laboratory Results - last 24 hr 09/11/21 16:36: WBC 12.2 H, RBC 3.36 L, Hgb 10.2 L, Hct 31.0 L, MCV 92.3, MCH 30.4, MCHC 32.9, RDW Std Deviation 44.1 H, RDW Coeff of Marcio 13.2, Plt Count 182, MPV 10.3 09/11/21 16:36: PT 13.7, INR 1.1, APTT 29.6 09/11/21 16:36: Sodium 140, Potassium 4.1, Chloride 109 H, Carbon Dioxide 26.0, Anion Gap 5, BUN 18, Creatinine 1.08 H, Estim Creat Clear Calc 31.50, Est GFR (MDRD) Af Amer 62, Est GFR (MDRD) Non-Af 51 L, BUN/Creatinine Ratio 16.7, Glucose 248 H, Calcium 9.2 09/11/21 18:53: POC Glucose 174 H 09/11/21 23:05: POC Glucose 201 H 09/12/21 05:40: WBC 11.9 H, RBC 3.19 L, Hgb 9.6 L, Hct 28.6 L, MCV 89.7, MCH 30.1, MCHC 33.6, RDW Std Deviation 42.6, RDW Coeff of Marcio 12.9, Plt Count 182, MPV 10.3, Immature Gran % (Auto) 0.400, Neut % (Auto) 62.3, Lymph % (Auto) 26.2, [place] % (Auto) 7.6, Eos % (Auto) 2.9, Baso % (Auto) 0.6, Absolute Neuts (auto) 7.4, Absolute Lymphs (auto) 3.12, Nucleated RBC % 0 09/12/21 05:40: Sodium 139, Potassium 3.5, Chloride 107, Carbon Dioxide 26.0, Anion Gap 6, BUN 18, Creatinine 0.97, Estim Creat Clear Calc 33.54, Est GFR (MDRD) Af Amer 70, Est GFR (MDRD) Non-Af 58 L, BUN/Creatinine Ratio 18.5, Glucose 159 H, Calcium 8.5 09/12/21 05:47: POC Glucose 162 H Radiography Diagnostic Testing: Radiology Impression Brain CT 09/11/21 15:14 IMPRESSION: 1. Scalp hematoma and soft tissue swelling. 2. No acute intracranial findings. 3. 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 4. Microvascular ischemic changes. Atrophy. Electronically Signed: Netta Ruiz MD at 17:42 EST Reading Location ID and State: Wade Fischer MD Tel , Service support , Cervical Spine CT 09/11/21 15:16 IMPRESSION: No evidence of cervical trauma. Mild degenerative changes detailed above. Electronically Signed: Netta Ruiz MD at 18:51 EST Reading Location ID and State: Wade Fischer MD Tel , Service support , Chest X-Ray 09/11/21 16:05 IMPRESSION: No acute cardiopulmonary process. Electronically Signed: Kuldip Benjamin MD at 16:38 EST Reading Location ID and State: [id number] / [place] Tel , Service support , Hand X-Ray 09/11/21 16:05 IMPRESSION: No acute fracture or dislocation in the right hand. Polyarticular osteoarthritis. Mild diffuse osteopenia. No radiopaque foreign body. IV catheter on the dorsum of the hand. Electronically Signed: Kuldip Benjamin MD at 16:39 EST Reading Location ID and State: [id number] / [place] Tel , Service support , Knee X-Ray 09/11/21 16:05 IMPRESSION: No acute fracture or dislocation in the left knee. Mild tricompartmental osteoarthritis. No significant knee joint effusion. Vascular calcification. Electronically Signed: Kuldip Benjamin MD at 16:39 EST ,
[2021-09-12] MEDS: Glucerna Shake 120 ML LIQUID PO (09:40)
[2021-09-12] MEDS: Pantoprazole Sodium 40 MG Tablet PO (09:41)
[2021-09-12] MEDS: Memantine Hydrochloride 10 MG Tablet PO (09:41)
[2021-09-12] MEDS: Glimepiride 2 MG Tablet PO (09:41)
[2021-09-12] MEDS: Modafinil 200 MG Tablet 100 MG PO (10:50)
--- NOTE | 2021-09-12 10:55 | CASEMGMT ---
RN HOWARD Face to Face with patient for initial transition planning/care coordination assessment. RN HOWARD introduced self and role at [facility]. Patient lying in bed, alert and confused, at bedside. , Mat, willing to participate in assessment and is able to answer all questions appropriately. Care providers, pharmacy, and demographics verified. wishes for patient to discharge home, denies need for home health at this time. states he has no further needs or concerns at this time. CM to follow for discharge planning needs that may arise. PCP: Janeth Specialists: RA Lopez; Milad glass edger; Laya Neurologist Preferred Pharmacy: [facility] Insurance: MCR, [employer] Prescription Benefit: yes Living Will/HPOA: none LNOK: Living Arrangements: Patient lives with in a split level home. assists patient with ADLs. Patient is ambulates independently and ambulates stairs. Transportation: DME/HHC: Patient has tub bench, bathtub lift, raised toilet, cane, walker, rollator, lift chair, grab bars, and cpap at home. denies previous HHC or SNF. provided with list of HHC for future reference. Disposition Plan: Patient to discharge home with family support and follow-up plans in place. Nakia FRANCO, RN, CM
[2021-09-12 11:31] LABS: Bedside Glucose 288 mg/dL (70-110)
--- NOTE | 2021-09-12 12:22 | PCM.DC ---
Discharge Instructions Diet Discharge Diet: Carb Control Diet Activity Discharge Activity: Return to Normal Activity Dressing / Incision Call your doctor if you observe: Shortness of breath, Dizziness and Chest pain Follow Up Care Test Results: Test results from this visit will be discussed in further detail at your follow-up appointment, if applicable. Discharge Plan Admission Admit Date/Time: 09/11/21 17:05 Primary Reason for Your Visit: Fall with right forehead laceration Attending Provider: Regina Montenegro Primary Care Provider: Mello Fowler Instructions Additional Instructions / Restrictions: Sutures may be removed 09/20/21. Discharge Orders/Prescriptions Prescriptions: New acetaminophen 500 mg Tablet 1,000 mg PO Q8H PRN PRN (Reason: Pain Score 1-10/Temp > 100.7 F) Qty: 0 RF: 0 Continued omeprazole 40 MG capsule 40 mg PO DAILY RF: 0 metformin 500 MG tablet 500 mg PO DAILY RF: 0 donepezil 5 MG tablet 10 mg PO QHS RF: 0 cholecalciferol (vitamin D3) 1,000 UNIT capsule 1,000 unit PO DAILY RF: 0 glimepiride 4 MG tablet 2 mg PO DAILY RF: 0 erythromycin 5 MG/GRAM ointment 1 applicatio EACH EYE DAILY RF: 0 cinnamon bark 500 MG capsule 1,000 mg PO DAILY RF: 0 atorvastatin 80 MG tablet 80 mg PO QHS Qty: 30 RF: 0 wpxocjpj-huf-QH-lycopen-lutein 1 EACH tablet 1 ea PO BID RF: 0 naproxen sodium 220 MG capsule 220 mg PO DAILY RF: 0 nitrofurantoin monohyd/m-cryst 100 MG capsule 1 tab PO DAILY RF: 0 melatonin 10 MG tablet 10 mg PO QHS RF: 0 Vitamin C 1 tab PO BID RF: 0 modafinil 100 mg tablet 100 mg PO DAILY RF: 0 memantine 10 mg tablet 10 mg PO BID RF: 0 Held clopidogrel 75 MG tablet 75 mg PO DAILY Qty: 30 RF: 0 Hold Instructions: Resume on 09/16/21. Referrals / Follow Up: Mello Fowler DO [Primary Care Provider] - In 1 Week Disposition Disposition (needs filled in before D/C Order can be placed): Home, Self Care
--- NOTE | 2021-09-12 12:31 | PCM.DC.SUM ---
Documented by User: Gwen Estrada NP, [employer] 09/12/21 12:37 Providers Date of Admission: 09/11/21 Date of Discharge: 09/12/21 Primary Care Physician: Dr. Mello Fowler, Consultations 09/11/21 18:16 Consult: Onc/Wound/power marketer Routine Comment: Reason for Consult:: scalp laceration Reason For Visit: FALL WITH HEAD LACERATION Diagnosis Discharge Diagnosis (1) Fall: Status: Acute Code(s): W19.XXXA - Unspecified fall, initial encounter (2) Head injury: Status: Acute Code(s): S09.90XA - Unspecified injury of head, initial encounter Medications at Discharge Home Medications omeprazole 40 mg PO DAILY 01/06/14 cholecalciferol (vitamin D3) 1,000 unit PO DAILY 08/28/16 donepezil 10 mg PO QHS 08/28/16 glimepiride 2 mg PO DAILY 08/28/16 metformin 500 mg PO DAILY 08/28/16 cinnamon bark 1,000 mg PO DAILY 11/30/17 erythromycin 1 applicatio EACH EYE DAILY 11/30/17 atorvastatin 80 mg PO QHS #30 tab 12/03/17 clopidogrel 75 mg PO DAILY #30 tab 12/03/17 zzazfsys-prx-RI-lycopen-lutein 1 ea PO BID 12/03/18 naproxen sodium 220 mg PO DAILY 12/03/18 Vitamin C 1 tab PO BID 06/08/19 melatonin 10 mg PO QHS 06/08/19 nitrofurantoin monohyd/m-cryst 1 tab PO DAILY 06/08/19 memantine 10 mg PO BID 09/11/21 modafinil 100 mg PO DAILY 09/11/21 acetaminophen 1,000 mg PO Q8H PRN PRN #0 tab 09/12/21 Hospital Course Operations None Procedures None Summary of Care Provided Hospital Course: Patient is an 86-year-old female admitted 09/11/2021 due to fall with forehead laceration. 1. Fall with right forehead laceration-brain CT with scalp hematoma and soft tissue swelling, no acute intracranial findings. Sutures may be removed 09/20/21.. As needed pain regimen. PT/OT evaluated prior to discharge and patient safe for home. Follow-up with PCP in 1 week. 2. Dementia, without known behavioral disturbance history-on Aricept, Namenda. 3. Type 2 diabetes mellitus-continue home oral regimen. 4. Chronic kidney disease stage IIIa-at baseline. 5. Acute blood loss anemia secondary to #1 on Chronic normocytic anemia- stable. 6. History of CVA-continue statin. Resume Plavix 09/15/21. 7. Hyperlipidemia-continue statin. 8. GERD-on PPI. Physical Exam Const oriented x3 and no apparent distress Constitutional Narrative: Bilateral eye ecchymosis, right forehead sutures intact Orientation / Consciousness: awake and oriented to person Nutritional Appearance: obese HEENT normocephalic and moist oral mucous membranes Eyes PERRL, EOMs intact bilaterally and conjunctivae normal Neck no lymphadenopathy Resp normal respiratory effort and clear to auscultation bilaterally Cardio regular rate, regular rhythm and no murmurs Peripheral Pulses: pulses 2+ throughout GI normal to inspection, nondistended, normoactive bowel sounds, non-tender and non-distended Extremity normal to inspection Skin no rashes or lesions noted Lesions: no lesions Rashes: no rashes Trauma: no lacerations or abrasions Neuro CN's II-XII intact bilaterally, no focal motor deficits, no sensory deficits noted and deep tendon reflexes 2+ bilaterally Psych mental status grossly normal and affect normal This patient was seen by KALEIGH Bustamante under the supervision of Dr. Montenegro. Time spent examining patient, reviewing data and subsequent management of care: 14 Minutes Weight / BMI Weight Weight: 207 lb 7 oz Body Mass Index (BMI) 36.7 ABG / Lab / Microbiology Data Result Diagrams: 09/12/21 05:40 09/12/21 05:40 Laboratory: Laboratory Results - last 24 hr 09/11/21 16:36: WBC 12.2 H, RBC 3.36 L, Hgb 10.2 L, Hct 31.0 L, MCV 92.3, MCH 30.4, MCHC 32.9, RDW Std Deviation 44.1 H, RDW Coeff of Marcio 13.2, Plt Count 182, MPV 10.3 09/11/21 16:36: PT 13.7, INR 1.1, APTT 29.6 09/11/21 16:36: Sodium 140, Potassium 4.1, Chloride 109 H, Carbon Dioxide 26.0, Anion Gap 5, BUN 18, Creatinine 1.08 H, Estim Creat Clear Calc 31.50, Est GFR (MDRD) Af Amer 62, Est GFR (MDRD) Non-Af 51 L, BUN/Creatinine Ratio 16.7, Glucose 248 H, Calcium 9.2 09/11/21 18:53: POC Glucose 174 H 09/11/21 23:05: POC Glucose 201 H 09/12/21 05:40: WBC 11.9 H, RBC 3.19 L, Hgb 9.6 L, Hct 28.6 L, MCV 89.7, MCH 30.1, MCHC 33.6, RDW Std Deviation 42.6, RDW Coeff of Marcio 12.9, Plt Count 182, MPV 10.3, Immature Gran % (Auto) 0.400, Neut % (Auto) 62.3, Lymph % (Auto) 26.2, [place] % (Auto) 7.6, Eos % (Auto) 2.9, Baso % (Auto) 0.6, Absolute Neuts (auto) 7.4, Absolute Lymphs (auto) 3.12, Nucleated RBC % 0 09/12/21 05:40: Sodium 139, Potassium 3.5, Chloride 107, Carbon Dioxide 26.0, Anion Gap 6, BUN 18, Creatinine 0.97, Estim Creat Clear Calc 33.54, Est GFR (MDRD) Af Amer 70, Est GFR (MDRD) Non-Af 58 L, BUN/Creatinine Ratio 18.5, Glucose 159 H, Calcium 8.5 09/12/21 05:47: POC Glucose 162 H 09/12/21 11:22: POC Glucose 288 H Radiography Diagnostic Testing: Radiology Impression Brain CT 09/11/21 15:14 IMPRESSION: 1. Scalp hematoma and soft tissue swelling. 2. No acute intracranial findings. 3. 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 4. Microvascular ischemic changes. Atrophy. Electronically Signed: Netta Ruiz MD at 17:42 EST Reading Location ID and State: [id number] / Tel , Service support , Cervical Spine CT 09/11/21 15:16 IMPRESSION: No evidence of cervical trauma. Mild degenerative changes detailed above. Electronically Signed: Netta Ruiz MD at 18:51 EST Reading Location ID and State: [id number] / Tel , Service support , Chest X-Ray 09/11/21 16:05 IMPRESSION: No acute cardiopulmonary process. Electronically Signed: Kuldip Benjamin MD at 16:38 EST , Hand X-Ray 09/11/21 16:05 IMPRESSION: No acute fracture or dislocation in the right hand. Polyarticular osteoarthritis. Mild diffuse osteopenia. No radiopaque foreign body. IV catheter on the dorsum of the hand. Electronically Signed: Kuldip Benjamin MD at 16:39 EST , Knee X-Ray 09/11/21 16:05 IMPRESSION: No acute fracture or dislocation in the left knee. Mild tricompartmental osteoarthritis. No significant knee joint effusion. Vascular calcification. Electronically Signed: Kuldip Benjamin MD at 16:39 EST , D/C Instructions Discharge Diet: Carb Control Diet Call your doctor if you observe: Shortness of breath, Dizziness and Chest pain Meaningful Use Info Meaningful Use Diagnoses (Choose all that apply): None applicable Discharge Plan Admission Admit Date/Time: 09/11/21 17:05 Primary Reason for Your Visit: Fall with right forehead laceration Attending Provider: Regina Montenegro Primary Care Provider: Mello Fowler Instructions Additional Instructions / Restrictions: Sutures may be removed 09/20/21. Discharge Orders/Prescriptions Prescriptions: New acetaminophen 500 mg Tablet 1,000 mg PO Q8H PRN PRN (Reason: Pain Score 1-10/Temp > 100.7 F) Qty: 0 RF: 0 Continued omeprazole 40 MG capsule 40 mg PO DAILY RF: 0 metformin 500 MG tablet 500 mg PO DAILY RF: 0 donepezil 5 MG tablet 10 mg PO QHS RF: 0 cholecalciferol (vitamin D3) 1,000 UNIT capsule 1,000 unit PO DAILY RF: 0 glimepiride 4 MG tablet 2 mg PO DAILY RF: 0 erythromycin 5 MG/GRAM ointment 1 applicatio EACH EYE DAILY RF: 0 cinnamon bark 500 MG capsule 1,000 mg PO DAILY RF: 0 atorvastatin 80 MG tablet 80 mg PO QHS Qty: 30 RF: 0 auozphyh-lxb-IE-lycopen-lutein 1 EACH tablet 1 ea PO BID RF: 0 naproxen sodium 220 MG capsule 220 mg PO DAILY RF: 0 nitrofurantoin monohyd/m-cryst 100 MG capsule 1 tab PO DAILY RF: 0 melatonin 10 MG tablet 10 mg PO QHS RF: 0 Vitamin C 1 tab PO BID RF: 0 modafinil 100 mg tablet 100 mg PO DAILY RF: 0 memantine 10 mg tablet 10 mg PO BID RF: 0 Held clopidogrel 75 MG tablet 75 mg PO DAILY Qty: 30 RF: 0 Hold Instructions: Resume on 09/16/21. Referrals / Follow Up: Mello Fowler DO [Primary Care Provider] - In 1 Week Disposition Disposition (needs filled in before D/C Order can be placed): Home, Self Care Documented by User: Dr. Regina Montenegro MD 09/12/21 14:23 Providers Date of Admission: 09/11/21 Reason For Visit: FALL WITH HEAD LACERATION Medications at Discharge Home Medications omeprazole 40 mg PO DAILY 01/06/14 cholecalciferol (vitamin D3) 1,000 unit PO DAILY 08/28/16 donepezil 10 mg PO QHS 08/28/16 glimepiride 2 mg PO DAILY 08/28/16 metformin 500 mg PO DAILY 08/28/16 cinnamon bark 1,000 mg PO DAILY 11/30/17 erythromycin 1 applicatio EACH EYE DAILY 11/30/17 atorvastatin 80 mg PO QHS #30 tab 12/03/17 clopidogrel 75 mg PO DAILY #30 tab 12/03/17 swzpbzmh-obe-GT-lycopen-lutein 1 ea PO BID 12/03/18 naproxen sodium 220 mg PO DAILY 12/03/18 Vitamin C 1 tab PO BID 06/08/19 melatonin 10 mg PO QHS 06/08/19 nitrofurantoin monohyd/m-cryst 1 tab PO DAILY 06/08/19 memantine 10 mg PO BID 09/11/21 modafinil 100 mg PO DAILY 09/11/21 acetaminophen 1,000 mg PO Q8H PRN PRN #0 tab 09/12/21 ABG / Lab / Microbiology Data Result Diagrams: 09/12/21 05:40 09/12/21 05:40 Discharge Plan Admission Admit Date/Time: 09/11/21 17:05 Primary Reason for Your Visit: Fall with right forehead laceration Attending Provider: Regina Montenegro Primary Care Provider: Mello Fowler Instructions Additional Instructions / Restrictions: Sutures may be removed 09/20/21. Discharge Orders/Prescriptions Prescriptions: New acetaminophen 500 mg Tablet 1,000 mg PO Q8H PRN PRN (Reason: Pain Score 1-10/Temp > 100.7 F) Qty: 0 RF: 0 Continued omeprazole 40 MG capsule 40 mg PO DAILY RF: 0 metformin 500 MG tablet 500 mg PO DAILY RF: 0 donepezil 5 MG tablet 10 mg PO QHS RF: 0 cholecalciferol (vitamin D3) 1,000 UNIT capsule 1,000 unit PO DAILY RF: 0 glimepiride 4 MG tablet 2 mg PO DAILY RF: 0 erythromycin 5 MG/GRAM ointment 1 applicatio EACH EYE DAILY RF: 0 cinnamon bark 500 MG capsule 1,000 mg PO DAILY RF: 0 atorvastatin 80 MG tablet 80 mg PO QHS Qty: 30 RF: 0 atwjfwcc-yqf-AU-lycopen-lutein 1 EACH tablet 1 ea PO BID RF: 0 naproxen sodium 220 MG capsule 220 mg PO DAILY RF: 0 nitrofurantoin monohyd/m-cryst 100 MG capsule 1 tab PO DAILY RF: 0 melatonin 10 MG tablet 10 mg PO QHS RF: 0 Vitamin C 1 tab PO BID RF: 0 modafinil 100 mg tablet 100 mg PO DAILY RF: 0 memantine 10 mg tablet 10 mg PO BID RF: 0 Held clopidogrel 75 MG tablet 75 mg PO DAILY Qty: 30 RF: 0 Hold Instructions: Resume on 09/16/21. Referrals / Follow Up: Mello Fowler DO [Primary Care Provider] - In 1 Week Disposition Disposition (needs filled in before D/C Order can be placed): Home, Self Care Charges/Coding Addendum Addendum: This patient was seen in conjunction with Roge Mcknight NP. I have independently interviewed and examined the patient and reviewed pertinent historical, laboratory, and other data. I have reviewed her note and concur with her documentation 86-year-old female who presents after a fall with head laceration. Patient has underlying history of dementia, undiagnosed, who went outside and slipped on ice and hit her head on a landscaping wall. She did not lose consciousness. Patient's vitals were stable. She sustained a laceration to deep right side of forehead with significant amount of blood loss. This was sutured in the ED. Admitting blood work was unremarkable. CT of the head showed chronic eft occipital infarct and chronic left thalamic infarct with microvascular ischemic change. [facility]. Hemoglobin was 9.6 compared to 10.2 on admission. Patient otherwise felt well. Patient was seen by PT and OT and recommended for additional therapy On the day of discharge, patient was seen and examined. Denied any new complaints except for right frontal headache. PT and OT recommended additional therapy with 24-hour supervision. declined and wanted to take patient home. Physical Exam: Gen: Alert, comfortable, not pale, not jaundiced CVS:HS I +II, regular, no murmurs RESP: Diminished at lung bases GI: BS present and normal, soft, nontender, no palpable organs EXT:No edema Labs: WBC count 11.9, hemoglobin 9.6, platelet count 182, BMP unremarkable. Blood glucose 288 Time spent coordinating patient's care, discussing with nursing, at bedside: 25 minutes Visit Charges OBSV E&M: 63125 Observation care discharge
== END 2021-09-12 13:44 | disposition home or self-care (01) ==
LOC: ED 17:07 → MS3 17:41
PROVIDERS: Nurse Practitioner Family; Admitting Provider Family Medicine; Emergency Provider Emergency Medicine; PCP Family Medicine; Visit Provider Internal Medicine
DX: S01.81XA Laceration without foreign body of other part of head, initial encounter (principal); M35.00 Sjogren syndrome, unspecified; F03.90 Unspecified dementia, unspecified severity, without behavioral disturbance, psychotic disturbance, mood disturbance, and anxiety; E11.22 Type 2 diabetes mellitus with diabetic chronic kidney disease; N18.31 Chronic kidney disease, stage 3a; E78.5 Hyperlipidemia, unspecified; D50.0 Iron deficiency anemia secondary to blood loss (chronic); E66.9 Obesity, unspecified; K21.9 Gastro-esophageal reflux disease without esophagitis; S80.02XA Contusion of left knee, initial encounter; I69.311 Memory deficit following cerebral infarction; W00.0XXA Fall on same level due to ice and snow, initial encounter; Y93.9 Activity, unspecified; Y99.9 Unspecified external cause status; Y92.007 Garden or yard of unspecified non-institutional (private) residence as the place of occurrence of the external cause; Z23 Encounter for immunization; Z79.02 Long term (current) use of antithrombotics/antiplatelets; Z79.899 Other long term (current) drug therapy; Z79.84 Long term (current) use of oral hypoglycemic drugs; Z68.36 Body mass index [BMI] 36.0-36.9, adult; M19.90 Unspecified osteoarthritis, unspecified site
CPT/HCPCS: 12015; 36415; 70450; 71045; 72125; 73130; 73564; 80048; 82962; 85025; 85027; 85610; 85730; 90715; 97162; 97166; 97802; 99218; 99285; A4216; G0378

== ENCOUNTER 2021-09-14 13:28 | Emergency (ER) | payer MEDICARE, OTHER, SELFPAY ==
[2021-09-14 13:29] VITALS: BP 158/83; PULSE 85; RESP 18; TEMP 36.5; O2SAT 95; BMI 32.8
--- NOTE | 2021-09-14 14:16 | EX.ED.DYSGE1 ---
HPI History of Present Illness Chief Complaint: Wound Check Informant: patient and spouse/S.O. Narrative Narrative: Patient was seen here about 3 days ago for a fall. She hit her head. Suturing and evaluation were done. The only complaint is that there is some drainage that seems yellowish colored coming on the bottom of the incision on the right. Otherwise she is acting normally. No fevers or chills. Nothing makes this better or worse. [facility] Medical History Arthritis CPAP (continuous positive airway pressure) dependence Hearing loss, left Hearing loss, right History of stroke Non-smoker Type 2 diabetes mellitus without complications Home Medications omeprazole 40 mg PO DAILY 01/06/14 [History Last Taken 01/05/14] cholecalciferol (vitamin D3) 1,000 unit PO DAILY 08/28/16 [History Last Taken Unknown] donepezil 10 mg PO QHS 08/28/16 [History Last Taken Unknown] glimepiride 2 mg PO DAILY 08/28/16 [History Last Taken Unknown] metformin 500 mg PO DAILY 08/28/16 [History Last Taken Unknown] cinnamon bark 1,000 mg PO DAILY 11/30/17 [History Last Taken Unknown] erythromycin 1 applicatio EACH EYE DAILY 11/30/17 [History Last Taken Unknown] atorvastatin 80 mg PO QHS #30 tab 12/03/17 [Rx Last Taken Unknown] clopidogrel 75 mg PO DAILY #30 tab 12/03/17 [Rx Last Taken Unknown] obejwhyn-qcm-GK-lycopen-lutein 1 ea PO BID 12/03/18 [History Last Taken Unknown] naproxen sodium 220 mg PO DAILY 12/03/18 [History Last Taken Unknown] Vitamin C 1 tab PO BID 06/08/19 [History Last Taken Unknown] melatonin 10 mg PO QHS 06/08/19 [History Last Taken Unknown] nitrofurantoin monohyd/m-cryst 1 tab PO DAILY 06/08/19 [History Last Taken Unknown] memantine 10 mg PO BID 09/11/21 [History Last Taken Unknown] modafinil 100 mg PO DAILY 09/11/21 [History Last Taken Unknown] acetaminophen 1,000 mg PO Q8H PRN PRN #0 tab 09/12/21 [Rx Last Taken Unknown] cephalexin 500 mg PO Q6 #40 cap 09/14/21 [Rx Last Taken Unknown] Allergy/AdvReac Type Severity Reaction Status Date / Time No Known Allergies Allergy Verified 09/14/21 13:30 Family History Mother Alzheimer disease Brother Alzheimer disease Aunt Alzheimer disease Father Heart disease Surgical History H/O lumpectomy H/O: hysterectomy History of tonsillectomy Social History household members: spouse Smoking Status: Never smoker alcohol intake: never substance use type: does not use ROS ROS ED Constitutional Constitutional ED: Denies chills or fever(s) ENT ENT ED: Reports other Details: See history of present illness ; Denies rhinorrhea Respiratory/Chest Respiratory/Chest: Denies cough or dyspnea Gastrointestinal Gastrointestinal: Denies nausea or vomiting Integumentary Reports other Details: See history of present illness. Allergic/Immunologic Allergic/Immunologic ED: Denies urticaria EXAM Physical Exam Const Vital Signs: 09/14/21 13:29 Temperature 97.7 F L Temperature Source Temporal Pulse Rate 85 Respiratory Rate 18 Blood Pressure 158/83 H Blood Pressure Mean 108 Pulse Ox 95 Oxygen Delivery Method Room Air Positive well nourished, well developed and obese General Appearance ED: well developed Nutritional Appearance: obese HEENT HEENT Narrative: Patient has healing laceration right forehead. There is a fair amount of bruising and skin color changes. At the bottom edge of the wound it is slightly open. However the sutures do not come loose at all. They are still in excellent position. But the wound is open and has some drainage of some slightly purulent looking material. This is opaque mata-yellow. It is hard to see if there is erythema because of the significant bruising. There is no swelling of the incision. Resp normal respiratory effort Cardio regular rate and regular rhythm Neuro Neuro Narrative: Acting normally per her . Sensorium / Orientation: alert Skin Skin Narrative: See above. MDM MDM MDM Narrative Medical decision making narrative: There are skin changes near the laceration. It is hard to say if this is all bruising or could be some early erythema. There is some drainage that looks a little purulent. This looks different than normal serous drainage. I do not think the wound needs to be open as it is open at the very bottom which allows this good drainage. It is not swollen or tender up fine. But I will get her on antibiotics with this drainage that started about 3 days. She is also diabetic. She has no allergies to antibiotics. Basically we discussed reasons to return. Discharge Plan Triage Chief Complaint: Wound Check ED Provider: Eddie Enriquez Dx/Rx/DC Orders Clinical Impression: Wound infection Instructions: ED Wound Check (Infection) Prescriptions: New cephalexin [cephalexin] 500 MG capsule 500 mg PO Q6 Qty: 40 RF: 0 No Action omeprazole 40 MG capsule 40 mg PO DAILY RF: 0 metformin 500 MG tablet 500 mg PO DAILY RF: 0 donepezil 5 MG tablet 10 mg PO QHS RF: 0 cholecalciferol (vitamin D3) 1,000 UNIT capsule 1,000 unit PO DAILY RF: 0 glimepiride 4 MG tablet 2 mg PO DAILY RF: 0 erythromycin 5 MG/GRAM ointment 1 applicatio EACH EYE DAILY RF: 0 cinnamon bark 500 MG capsule 1,000 mg PO DAILY RF: 0 atorvastatin 80 MG tablet 80 mg PO QHS Qty: 30 RF: 0 clopidogrel 75 MG tablet 75 mg PO DAILY Qty: 30 RF: 0 Hold Instructions: Resume on 09/16/21. maslsydv-jus-FT-lycopen-lutein 1 EACH tablet 1 ea PO BID RF: 0 naproxen sodium 220 MG capsule 220 mg PO DAILY RF: 0 nitrofurantoin monohyd/m-cryst 100 MG capsule 1 tab PO DAILY RF: 0 melatonin 10 MG tablet 10 mg PO QHS RF: 0 Vitamin C 1 tab PO BID RF: 0 modafinil 100 mg tablet 100 mg PO DAILY RF: 0 memantine 10 mg tablet 10 mg PO BID RF: 0 acetaminophen 500 mg Tablet 1,000 mg PO Q8H PRN PRN (Reason: Pain Score 1-10/Temp > 100.7 F) Qty: 0 RF: 0 Primary Care Provider: Mello Fowler Referrals: Mello Fowler DO [Primary Care Provider] - 3-5 Days Disposition Disposition: Home, Self Care
[2021-09-14] MEDS: Cephalexin 250 MG Capsule 500 MG PO (14:30)
== END 2021-09-14 14:39 | disposition home or self-care (01) ==
PROVIDERS: Emergency Provider Emergency Medicine; PCP Family Medicine; Visit Provider Emergency Medicine
DX: S01.81XD Laceration without foreign body of other part of head, subsequent encounter (principal); E11.9 Type 2 diabetes mellitus without complications; Z86.73 Personal history of transient ischemic attack (TIA), and cerebral infarction without residual deficits; Z99.89 Dependence on other enabling machines and devices; B99.9 Unspecified infectious disease
CPT/HCPCS: 99283

== ENCOUNTER 2022-02-04 15:48 | Emergency (ER) | payer MEDICARE, OTHER, SELFPAY ==
[2022-02-04 15:50] VITALS: BP 138/70; PULSE 84; RESP 14; TEMP 37.2; O2SAT 97; BMI 32.8
--- NOTE | 2022-02-04 16:08 | CT_ITS ---
STUDY: CT CERVICAL SPINE WITHOUT CONTRAST REASON FOR EXAM: Female, 86 years old. PT. FELL ASLEEP IN A CHAIR ND [place] WAKING UP LEANED BACK FELL BACK IN A CHAIR AND FELL, AT A PICNINC. UNSURE OF HEAD INJURY, BUT DOES REPORT BACK AND LEFT SHOULDER PAIN. [facility] CAME TO SCENE RADIATION DOSAGE (If Supplied By Facility): CTDIvol = ( 31.66 ) mGy, DLP = ( 654.36 ) mGycm TECHNIQUE: High resolution transaxial imaging was performed without contrast material. Sagittal and coronal images were reconstructed. Individualized dose optimization techniques were used for this CT. COMPARISON: 09/11/2021 FINDINGS: Normal craniovertebral junction. Degenerative arthrosis of the anterior atlantoaxial articulation. Normal odontoid process. Normal cervical lordosis. No demonstrated fracture. C2-3: Normal disc height and morphology. Normal central canal. Foramina are patent. Facet hypertrophy. C3-4: Disc space narrowing. Normal central canal. Foramina are patent. C4-5: Normal disc height and morphology. Stable slight degenerative anterolisthesis. No demonstrated fracture. Normal central canal. Foramina are patent. C5-6: Severe disc space narrowing. Stable degenerative central canal. Similar bilateral foraminal narrowing due to uncovertebral hypertrophy. C6-7: Severe disc space narrowing. Stable degenerative central canal. Similar bilateral foraminal narrowing due to uncovertebral hypertrophy. C7-T1: Normal disc height and morphology. Normal central canal. Foramina are patent. Focal nodular infiltrates of the right upper lobe partially visualized. CT/Spine Cervical without Contras IMPRESSION: 1. No demonstrated fracture or spondylolisthesis. 2. Nodular infiltrates of the right upper lobe partially visualized. Possible pneumonia but recommend follow-up. Electronically Signed: Ney Guzman MD (Brooks) at 16:55 EDT Reading Location ID and State: [facility] / [place] , Service support ,
--- NOTE | 2022-02-04 16:08 | CT_ITS ---
EXAM: CT THORACIC SPINE WITHOUT INTRAVENOUS CONTRAST CLINICAL INDICATION: PT. FELL ASLEEP IN A CHAIR ND SENG WAKING UP LEANED BACK FELL BACK IN A CHAIR AND FELL, AT A PICNINC. UNSURE OF HEAD INJURY, BUT DOES REPORT BACK AND LEFT SHOULDER PAIN. [facility] CAME TO SCENE AND CLEARED PT. FAMILY BROUGHT PT. IN. TECHNIQUE: Helically acquired images were obtained of the thoracic spine without intravenous contrast. 2D reformats were reviewed. This CT exam was performed using one or more of the following dose reduction techniques: automated exposure control, adjustment of the mA and/or kV according to patient size, and/or use of iterative reconstruction technique. This report was created using [employer] report generation technology. RADIATION DOSE: CTDIvol = 29.66 mGy, DLP = 1210.05 mGy-cm COMPARISON: None. FINDINGS: VERTEBRAE: Anterior spondylosis at multiple thoracic levels. No fracture. No traumatic subluxation. No discrete lytic or blastic abnormality. Normal alignment. DISCS/SPINAL CANAL/NEURAL FORAMINA: Disc space narrowing with discogenic comment degenerative calcifications throughout the thoracic spine. VASCULATURE: Coronary artery atherosclerosis. Visualized thoracic aorta is not dilated. LYMPH NODES: See below. LUNGS AND PLEURAL SPACES: Unremarkable as visualized. No mass. No consolidation or edema. No pleural effusion or thickening. No pneumothorax. MEDIASTINUM: Right hilar calcified lymph nodes. CT/Spine Thoracic without Contras IMPRESSION: No acute findings in the thoracic spine. Electronically Signed: Ney Guzman MD (Brooks) at 16:51 EDT Reading Location ID and State: [facility] / [place] , Service support ,
--- NOTE | 2022-02-04 16:08 | CT_ITS ---
STUDY: CT BRAIN WITHOUT CONTRAST REASON FOR EXAM: Female, 86 years old. PT. FELL ASLEEP IN A CHAIR ND SENG WAKING UP LEANED BACK FELL BACK IN A CHAIR AND FELL, AT A PICNINC. UNSURE OF HEAD INJURY, BUT DOES REPORT BACK AND LEFT SHOULDER PAIN. [facility] CAME TO SCENE AND CLEARED PT. FAMILY BROUGHT PT. IN. RADIATION DOSAGE (If Supplied By Facility): CTDIvol = ( 44.99 ) mGy, DLP = ( 829.85 ) mGycm TECHNIQUE: Transaxial CT imaging of the brain was performed without administration of intravenous contrast material. Individualized dose optimization techniques were used for this CT. COMPARISON: 02/04/2022 FINDINGS: Normal soft tissue structures. Normal calvarium. There is mild cerebral atrophy with widening of the extra-axial spaces and ventricular dilatation. There are areas of decreased attenuation within the white matter tracts of the supratentorial brain, consistent with microvascular disease changes. Normal basal ganglia and thalami. Normal brainstem. Normal cerebellum. Encephalomalacia and gliosis of the left occipital lobe is stable. There is no intracranial hemorrhage. There are no findings of an acute ischemic infarction. Dolichoectasia of the basilar artery. Intracranial atherosclerosis. Normal visualized paranasal sinuses. CT/Brain/Head without Contrast IMPRESSION: No acute intracranial hemorrhage or mass effect. Stable chronic changes, as above. Electronically Signed: Ney Guzman MD (Brooks) at 16:49 EDT ,
--- NOTE | 2022-02-04 16:09 | EX.ED.GENINJ ---
HPI History of Present Illness Chief Complaint: Fall Informant: patient and spouse/S.O. Narrative Narrative: 86-year-old female was at a picnic sitting on a picnic table. She put her head down to take a nap when she woke up fell backwards off the picnic table onto the concrete. She notes a headache neck and upper back pain. notes some swelling over the left scapula. She denies any other injuries. She was assessed by EMS and family brought her in by private vehicle. Patient is on Plavix. She has dementia. [facility] Medical History Alzheimer disease Anemia due to stage 3 chronic kidney disease Arthritis Bowel incontinence Chronic diarrhea CPAP (continuous positive airway pressure) dependence Hearing loss, left Hearing loss, right History of Sjogren's disease History of stroke Non-smoker Noninfective gastroenteritis and colitis, unspecified RLS (restless legs syndrome) Type 2 diabetes mellitus without complications Varicose veins of leg with edema Home Medications omeprazole 40 mg capsule,delayed release 40 mg PO DAILY GERD 01/06/14 [History Last Taken 01/05/14] cholecalciferol (vitamin D3) 25 mcg (1,000 unit) capsule 1,000 unit PO DAILY supplement 08/28/16 [History Last Taken Unknown] donepezil 5 mg tablet 10 mg PO QHS memory 08/28/16 [History Last Taken Unknown] glimepiride 4 mg tablet 2 mg PO DAILY blood sugar 08/28/16 [History Last Taken Unknown] metformin 500 mg tablet 500 mg PO DAILY blood sugar 08/28/16 [History Last Taken Unknown] cinnamon bark 500 mg capsule 1,000 mg PO DAILY supplement 11/30/17 [History Last Taken Unknown] erythromycin 5 mg/gram (0.5 %) eye ointment 1 applicatio EACH EYE DAILY eye ointment 11/30/17 [History Last Taken Unknown] atorvastatin 80 mg tablet 80 mg PO QHS #30 tabs 12/03/17 [Rx Last Taken Unknown] clopidogrel 75 mg tablet 75 mg PO DAILY #30 tabs 12/03/17 [Rx Last Taken Unknown] xlzjstrv-zor-isojn acid 0.4 mg-lycopene 300 mcg-lutein 250 mcg tablet 1 ea PO BID supplement 12/03/18 [History Last Taken Unknown] naproxen sodium 220 mg capsule 220 mg PO BID pain 12/03/18 [History Last Taken Unknown] Vitamin C 1 tab PO BID 06/08/19 [History Last Taken Unknown] memantine 10 mg tablet 10 mg PO BID 09/11/21 [History Last Taken Unknown] modafinil 100 mg tablet 100 mg PO DAILY 09/11/21 [History Last Taken Unknown] acetaminophen 500 mg tablet 1,000 mg PO Q8H PRN PRN Pain Score 1-10/Temp > 100.7 F #0 tabs 09/12/21 [Rx Last Taken Unknown] gabapentin 300 mg capsule 300 mg PO TID 01/11/22 [History Last Taken Unknown] loperamide 2 mg capsule 2 mg PO Q6H PRN Diarrhea 01/11/22 [History Last Taken Unknown] ramipril 5 mg capsule 5 mg PO DAILY 01/11/22 [History Last Taken Unknown] ropinirole 0.25 mg tablet 0.25 mg PO QHS 01/11/22 [History Last Taken Unknown] Allergy/AdvReac Type Severity Reaction Status Date / Time corn pollen Allergy Intermediate unk Uncoded 02/04/22 15:53 Family History Mother Alzheimer disease Brother Alzheimer disease Aunt Alzheimer disease Father Heart disease Surgical History H/O lumpectomy H/O: hysterectomy History of tonsillectomy Social History household members: spouse Smoking Status: Never smoker alcohol intake: never substance use type: does not use ROS ROS ED Constitutional Constitutional ED: Denies chills, fever(s) or weight loss Eyes Eyes: Denies change in vision or diplopia ENT ENT ED: Denies ear pain, rhinorrhea or sore throat Cardiovascular Cardiovascular: Denies chest pain, orthopnea, palpitations or racing heartbeat Respiratory/Chest Respiratory/Chest: Denies cough, dyspnea or orthopnea Gastrointestinal Gastrointestinal: Denies abdominal pain, diarrhea, nausea or vomiting Genitourinary Genitourinary ED: Denies dysuria, hematuria or urinary frequency Musculoskeletal Musculoskeletal: Reports back pain and neck pain; Denies arthralgias or myalgias Integumentary Denies abscess or rash Neurologic Neurologic: Reports headache(s); Denies weakness Psychiatric Psychiatric: Denies anxiety, depression, suicidal ideation or suicidal thoughts Endocrine Endocrinology: Denies polydipsia, polyphagia or polyuria Allergic/Immunologic Allergic/Immunologic ED: Denies mouth swelling, tongue swelling or urticaria EXAM Physical Exam Const Vital Signs: 02/04/22 15:50 02/04/22 16:06 Temperature 99 F Temperature Source Temporal Pulse Rate 84 Respiratory Rate 14 Respiratory Effort Normal Non-Labored Blood Pressure 138/70 H Blood Pressure Mean 92 Pulse Ox 97 Oxygen Delivery Method Room Air Positive well nourished and well developed General Appearance ED: well developed HEENT Reports normocephalic, head/scalp atraumatic and moist mucous membranes Eyes PERRL and EOMs intact bilaterally Neck no lymphadenopathy, supple and no JVD Neck Narrative: Tender palpation diffusely through the cervical spine and the paraspinal cervical musculature. Resp normal respiratory effort and clear to auscultation bilaterally Cardio regular rate, regular rhythm and no murmurs GI normal to inspection, nondistended, normoactive bowel sounds and non-tender Palpation: soft Back/Spine no CVA tenderness and normal ROM Thoracic Spine / Upper Back: thoracic spinal tenderness Extremity normal to inspection General Extremety ED: Negative for edema General Extremity: Negative for edema Neuro CN's II-XII intact bilaterally Sensorium / Orientation: alert Motor Exam: strength 5/5 throughout Psych mental status grossly normal Mood & Affect: Negative for depressed or tearful Skin no rashes or lesions noted and no wounds MDM MDM MDM Narrative Medical decision making narrative: CT of the brain and cervical spine and thoracic spine were negative for fracture or hemorrhage. My interpretation of the plain films of the left scapula is no demonstrated fracture. Patient will be discharged home with supportive care return if worsening or concerns Radiography Diagnostic Testing: Clinical Impression(s) from Imaging Studies Brain CT 02/04/22 16:08 IMPRESSION: No acute intracranial hemorrhage or mass effect. Stable chronic changes, as above. Electronically Signed: Ney Guzman MD (Brooks) at 16:49 EDT Reading Location ID and State: [facility] / [place] , Service support , Cervical Spine CT 02/04/22 16:08 IMPRESSION: 1. No demonstrated fracture or spondylolisthesis. 2. Nodular infiltrates of the right upper lobe partially visualized. Possible pneumonia but recommend follow-up. Electronically Signed: Ney Guzman MD (Brooks) at 16:55 EDT , Thoracic Spine CT 02/04/22 16:08 IMPRESSION: No acute findings in the thoracic spine. Electronically Signed: Ney Guzman MD (Brooks) at 16:51 EDT , Scapula X-Ray 02/04/22 16:30 IMPRESSION: No demonstrated fracture. Electronically Signed: Ney Guzman MD (Brooks) at 16:56 EDT , Discharge Plan Triage Chief Complaint: Fall ED Provider: Roge Lara Dx/Rx/DC Orders Clinical Impression: Fall, Acute cervical myofascial strain, Acute thoracic myofascial strain, Head injury, Contusion of left scapula Instructions: ED Back Contusion, ED Head Injury (Adult), ED Shoulder Contusion Prescriptions: No Action gabapentin 300 mg capsule 300 mg PO TID loperamide 2 mg capsule 2 mg PO Q6H PRN (Reason: Diarrhea) ramipril 5 mg capsule 5 mg PO DAILY ropinirole 0.25 mg tablet 0.25 mg PO QHS Rx Instructions: administer 1-3 hours before bedtime omeprazole 40 MG capsule 40 mg PO DAILY Label Comments: STOMACH metformin 500 MG tablet 500 mg PO DAILY donepezil 5 MG tablet 10 mg PO QHS cholecalciferol (vitamin D3) 1,000 UNIT capsule 1,000 unit PO DAILY glimepiride 4 MG tablet 2 mg PO DAILY Label Comments: dibetic medication erythromycin 5 MG/GRAM ointment 1 applicatio EACH EYE DAILY Label Comments: cinnamon bark 500 MG capsule 1,000 mg PO DAILY atorvastatin 80 MG tablet 80 mg PO QHS Qty: 30 0RF clopidogrel 75 MG tablet 75 mg PO DAILY Qty: 30 0RF Hold Instructions: Resume on 09/16/21. cwaaunnh-zfz-FW-lycopen-lutein 1 EACH tablet 1 ea PO BID naproxen sodium 220 MG capsule 220 mg PO BID Vitamin C 1 tab PO BID modafinil 100 mg tablet 100 mg PO DAILY memantine 10 mg tablet 10 mg PO BID Label Comments: TAKE 1 TABLET BY MOUTH TWICE DAILY acetaminophen 500 mg Tablet 1,000 mg PO Q8H PRN PRN (Reason: Pain Score 1-10/Temp > 100.7 F) Qty: 0 0RF Primary Care Provider: Mello Fowler Referrals: Mello Fowler DO [Primary Care Provider] - As Needed Disposition Disposition: Home, Self Care
--- NOTE | 2022-02-04 16:30 | RAD_ITS ---
STUDY: X-RAY - LEFT SCAPULA REASON FOR EXAM: Female, 86 years old. Fall, injury, pain TECHNIQUE: 2 view(s) of the scapula were obtained. COMPARISON: None. FINDINGS: Normal scapula, including the osseous glenoid rim, acromion, scapular neck, spine, coracoid process, and visualized body. Normal glenohumeral articulation. Normal acromioclavicular joint. Normal visualized humeral head. Normal visualized pulmonary apex. RAD/Scapula IMPRESSION: No demonstrated fracture. Electronically Signed: Ney Guzman MD (Brooks) at 16:56 EDT ,
== END 2022-02-04 17:28 | disposition home or self-care (01) ==
PROVIDERS: Emergency Provider Emergency Medicine; PCP Family Medicine; Visit Provider Emergency Medicine
DX: S09.90XA Unspecified injury of head, initial encounter (principal); S16.1XXA Strain of muscle, fascia and tendon at neck level, initial encounter; S29.019A Strain of muscle and tendon of unspecified wall of thorax, initial encounter; S40.012A Contusion of left shoulder, initial encounter; W08.XXXA Fall from other furniture, initial encounter; Y93.84 Activity, sleeping; G30.9 Alzheimer's disease, unspecified; F02.80 Dementia in other diseases classified elsewhere, unspecified severity, without behavioral disturbance, psychotic disturbance, mood disturbance, and anxiety; E11.22 Type 2 diabetes mellitus with diabetic chronic kidney disease; N18.30 Chronic kidney disease, stage 3 unspecified; D63.1 Anemia in chronic kidney disease; H91.93 Unspecified hearing loss, bilateral; Z79.02 Long term (current) use of antithrombotics/antiplatelets; Z79.84 Long term (current) use of oral hypoglycemic drugs; Z79.1 Long term (current) use of non-steroidal anti-inflammatories (NSAID); Z79.899 Other long term (current) drug therapy; Z86.73 Personal history of transient ischemic attack (TIA), and cerebral infarction without residual deficits
CPT/HCPCS: 70450; 72125; 72128; 73010; 99282

== ENCOUNTER 2022-06-14 21:42 | Observation (INO) | payer MEDICARE, OTHER, SELFPAY ==
[2022-06-14 21:48] VITALS: BP 142/79; PULSE 78; RESP 16; TEMP 35.4; O2SAT 90
--- NOTE | 2022-06-14 21:48 | CT_ITS ---
We are attempting to reach an attending provider to discuss findings. An addendum with communication details will be sent when the communication is complete. INDICATION: Neuro deficit, acute, stroke suspected EXAMINATION: CTA CAROTIDS AND BRAIN - CTA Head and Neck W/ Contrast Injection (and W/O Contrast Images if performed) TECHNIQUE: Routine CTA of the head and neck was performed with post processing of the angiographic images for volumetric reconstructions. In addition, images were obtained of the [place]. Nascet criteria using the distal ICAs for comparison were used for evaluation of stenoses. 3D reconstructions were reviewed. A radiation dose optimization technique was used for this scan. IV Contrast dosage and agent: 100 cc [id number] COMPARISON: Noncontrast head CT same date, CTA brain 11/30/2017 FINDINGS: --NECK: AORTIC ARCH AND BRANCHES: Unremarkable. RIGHT CCA: No occlusion, significant stenosis or dissection. RIGHT ICA: No occlusion, significant stenosis or dissection. LEFT CCA: No occlusion, significant stenosis or dissection. LEFT ICA: No occlusion, significant stenosis or dissection. RIGHT VERTEBRAL ARTERY: No occlusion, significant stenosis or dissection. LEFT VERTEBRAL ARTERY: No occlusion, significant stenosis or dissection. NECK SOFT TISSUES: Unremarkable. LUNG APICES: No acute pulmonary findings. BONES: Degenerative changes. --HEAD: --Anterior circulation: ICAs: No significant stenosis at the intracranial/visualized segments. ACAs: No significant stenosis at the visualized segments. ACOM: Present. MCAs: No significant stenosis at the visualized segments. --Posterior circulation: PCOMs: Patent bilaterally. anvilsmith: No significant stenosis at the visualized segments. BASILAR ARTERY: No significant stenosis. VERTEBRAL ARTERIES: No significant stenosis at the intradural/visualized segments. No evidence of intracranial aneurysm or vascular malformation. CT/STROKE CTA Head AND Neck W/Con IMPRESSION: Negative CTA Head and Neck. Electronically Signed: Marshall Schmidt MD at 0:05 EST ,
--- NOTE | 2022-06-14 21:48 | CT_ITS ---
STUDY: CT HEAD W/O CONTRAST INJECTION REASON FOR EXAM: Female, 87 years old. Neuro deficit, acute, stroke suspected RADIATION DOSAGE (If Supplied By Facility): CTDIvol = ( ) mGy, DLP = ( ) mGycm TECHNIQUE: Transaxial CT imaging of the brain was performed without administration of intravenous contrast material. Individualized dose optimization techniques were used for this CT. COMPARISON: CT head 02/04/2022 FINDINGS: BRAIN: No acute bleed. No edema. Small area of encephalomalacia in the left posterior parietal/occipital region. Small old infarcts in the cerebellar hemispheres. Old lacunar infarct in the aneta. Decreased attenuation in the periventricular white matter bilaterally. Veliz-white matter differentiation is maintained. Arterial calcifications. The vessels are tortuous and ectatic. VENTRICLES AND SULCI: The ventricles and sulci are prominent. EXTRA-AXIAL: No hemorrhage, fluid collection, or mass. CALVARIUM / SKULL BASE: Unremarkable. FACE/SINUSES: Unremarkable. SOFT TISSUES: Unremarkable. CT/STROKE Brain/Head without Cont IMPRESSION: No acute abnormality. CT angiogram and/or MRI may be helpful to evaluate for acute infarct as clinically indicated. Chronic microvascular ischemic disease and volume loss. CT angiogram is pending and will be reported separately. I discussed findings with Maura Sylvester by telephone at 10:11 PM Eastern time. N.B. : The above Results were Read Back by Radha Dinh MD to Maura Lauren MD, and understanding confirmed on 06/14/2022 22:10:32 (ET). Electronically Signed: Radha Dinh MD at 22:13 EST ,
[2022-06-14 21:50] VITALS: BP 143/75; PULSE 74; RESP 18; TEMP 35.4; O2SAT 90
--- NOTE | 2022-06-14 21:50 | ED.VIS.STROK ---
HPI History of Present Illness Chief Complaint: Neuro S/Sx Informant: spouse/S.O. and EMS Limited: other (nonverbal ) Narrative Narrative: Patient is an 87-year-old female with history of UTIs, vertigo, dementia, hard of hearing, hyperlipidemia, diabetes mellitus type 2 and prior stroke presenting for concern of stroke and mental status change. states the patient ate a late lunch and at some point this evening possibly 2 hours prior to arrival he found her on the side of the bed. He notes that they have a lift for the bathtub so he got her up with that and put her back in bed. He checked on her around 830 p.m. and noticed that she seemed weak and was not talking. Later he asked for her to state her name and she could not. This is when he called EMS. Patient's states he has a poor concept of time and is not sure when her last known well was but thinks it was at least 2 hours ago but likely more. EMS reports that initially they arrived she was not moving her left side and had a facial droop. Since they arrived she is at increased movement, her facial droop has resolved and she has had some words. Chart review shows that in November 2017 patient had urinary tract infection as well as an acute left thalamic lacunar infarct. states at that time her symptoms were she was not moving anything. [facility] Medical History Alzheimer disease Anemia due to stage 3 chronic kidney disease Arthritis Bowel incontinence Chronic diarrhea CPAP (continuous positive airway pressure) dependence Hearing loss, left Hearing loss, right History of Sjogren's disease History of stroke Non-smoker Noninfective gastroenteritis and colitis, unspecified RLS (restless legs syndrome) Type 2 diabetes mellitus without complications Varicose veins of leg with edema Home Medications omeprazole 40 mg capsule,delayed release 40 mg PO DAILY GERD 01/06/14 [History Last Taken 01/05/14] cholecalciferol (vitamin D3) 25 mcg (1,000 unit) capsule 1,000 unit PO DAILY supplement 08/28/16 [History Last Taken Unknown] donepezil 5 mg tablet 10 mg PO QHS memory 08/28/16 [History Last Taken Unknown] glimepiride 4 mg tablet 2 mg PO DAILY blood sugar 08/28/16 [History Last Taken Unknown] metformin 500 mg tablet 500 mg PO DAILY blood sugar 08/28/16 [History Last Taken Unknown] cinnamon bark 500 mg capsule 1,000 mg PO DAILY supplement 11/30/17 [History Last Taken Unknown] erythromycin 5 mg/gram (0.5 %) eye ointment 1 applicatio EACH EYE DAILY eye ointment 11/30/17 [History Last Taken Unknown] atorvastatin 80 mg tablet 80 mg PO QHS #30 tabs 12/03/17 [Rx Last Taken Unknown] clopidogrel 75 mg tablet 75 mg PO DAILY #30 tabs 12/03/17 [Rx Last Taken Unknown] vrshithz-wuc-ytqrk acid 0.4 mg-lycopene 300 mcg-lutein 250 mcg tablet 1 ea PO BID supplement 12/03/18 [History Last Taken Unknown] naproxen sodium 220 mg capsule 220 mg PO BID pain 12/03/18 [History Last Taken Unknown] Vitamin C 1 tab PO BID 06/08/19 [History Last Taken Unknown] memantine 10 mg tablet 10 mg PO BID 09/11/21 [History Last Taken Unknown] modafinil 100 mg tablet 100 mg PO DAILY 09/11/21 [History Last Taken Unknown] acetaminophen 500 mg tablet 1,000 mg PO Q8H PRN PRN Pain Score 1-10/Temp > 100.7 F #0 tabs 09/12/21 [Rx Last Taken Unknown] gabapentin 300 mg capsule 300 mg PO TID 01/11/22 [History Last Taken Unknown] loperamide 2 mg capsule 2 mg PO Q6H PRN Diarrhea 01/11/22 [History Last Taken Unknown] ramipril 5 mg capsule 5 mg PO DAILY 01/11/22 [History Last Taken Unknown] ropinirole 0.25 mg tablet 0.25 mg PO QHS 01/11/22 [History Last Taken Unknown] melatonin 10 mg tablet 10 mg PO QHS 06/14/22 [History Last Taken Unknown] Allergy/AdvReac Type Severity Reaction Status Date / Time corn pollen Allergy Intermediate unk Uncoded 02/04/22 15:53 Family History Mother Alzheimer disease Brother Alzheimer disease Aunt Alzheimer disease Father Heart disease Surgical History H/O lumpectomy H/O: hysterectomy History of tonsillectomy Social History household members: spouse Smoking Status: Never smoker alcohol intake: never substance use type: does not use ROS ROS ED Review of Systems ROS Unobtainable: due to mental status EXAM Physical Exam Const Vital Signs: 06/14/22 21:51 06/14/22 21:50 06/14/22 21:48 Temperature 95.8 F L 95.8 F L Temperature Source Temporal Temporal Pulse Rate 74 78 Respiratory Rate 18 16 Blood Pressure 143/75 H 142/79 H Blood Pressure Mean 97 100 Pulse Ox 90 90 Oxygen Delivery Method Room Air Room Air Room Air 06/14/22 22:18 06/14/22 22:18 06/14/22 22:30 Temperature 96 F L 96.9 F L Temperature Source Temporal Temporal Pulse Rate 79 89 74 Respiratory Rate 16 20 H 18 Blood Pressure 142/79 H 142/79 H 142/79 H Blood Pressure Mean 100 100 100 Pulse Ox 100 100 100 Oxygen Delivery Method Room Air Room Air Room Air 06/14/22 23:00 06/15/22 00:00 Temperature Temperature Source Pulse Rate 79 88 Respiratory Rate 20 H 15 Blood Pressure 141/80 H Blood Pressure Mean 100 Pulse Ox 98 100 Oxygen Delivery Method Room Air Room Air Positive well nourished and well developed General Appearance ED: well developed and NAD HEENT Reports moist mucous membranes Eyes PERRL and EOMs intact bilaterally Neck supple and no JVD Chest Wall inspection of chest normal and palpation of chest normal Resp normal respiratory effort and clear to auscultation bilaterally Cardio no murmurs Rate: regular rate Rhythm: regular rhythm GI normal to inspection, nondistended, normoactive bowel sounds Extremity General Extremety ED: Yes edema; Negative for deformity General Extremity: edema; Negative for deformity Neuro Sensorium / Orientation: alert; Negative for oriented to person, oriented to place or oriented to time Skin no wounds NIHSS NIHSS Initial: 1a Level of Consciousness: 0 1b LOC Questions (Score 2 if aphasic/stupor): 2 1c LOC Commands (Only score 1st attempt): 1 2 Best Gaze (If aphasic, use reflexive mvmts.): 0 3 Visual: 0 4 Facial Palsy: 0 5 Motor Arm Right (UN = amputation/fusion): 0 5 Motor Arm Left: 0 6 Motor Leg Right: 2 6 Motor Leg Left: 2 7 Limb ataxia (Only + if out of proportion): 0 8 Sensory (Aphasia/stupor=0 or 1, coma=2): 0 9 Best Language: 3 10 Dysarthria (mute, coma=2, intubated=UN): 2 11 Extinction and Inattention (only scored if +): 0 Total Score: 12 MDM MDM MDM Narrative Medical decision making narrative: Patient is evaluated for altered mental status. EMS reported that she had left-sided deficits including left-sided facial droop left-sided weakness and was not speaking. Blood sugar for them was 150. Stroke alert was called on scene. Patient was evaluated immediately upon arrival. She is currently not speaking but slowly following commands. I do not appreciate any facial droop or lateralizing deficits. She has bilateral weakness of the legs. CT of the head does not show any acute intracranial process. Her is pretty unreliable historian and last known well is unknown. Given patient's baseline and waning neurologic symptoms do not think that she is a tPA candidate. Neurology is in agreement with this. He also states that given her comorbidities and age she would not be a candidate for clot retrieval even if she did have an LVO. Her BMP shows hyperglycemia. Patient is given juice and does start to have some improvement of her mentation. reports that she has had some weight loss associated chronic diarrhea but no recent medication changes. Repeat BS is 65 and further repeat is 61. She is started on D5 NS. Urinalysis shows 3+ bacteria but negative nitrates and 0-5 WBC. Will send for culture but not treat at this time. She will be admitted for further monitoring of her glucose as far as further evaluation and strokelike symptoms however I question if they could be secondary to her hypoglycemia and not a true stroke. Lab Data Labs: Laboratory Results - last 24 hr 06/14/22 06/14/22 06/14/22 22:20 22:20 22:20 WBC 11.4 H RBC 3.33 L Hgb 9.9 L Hct 30.8 L MCV 92.5 MCH 29.7 MCHC 32.1 RDW Std Deviation 45.9 H RDW Coeff of Marcio 13.5 Plt Count 216 MPV 9.4 Immature Gran % (Auto) 0.700 Neut % (Auto) 76.6 H Lymph % (Auto) 14.6 L [place] % (Auto) 6.9 Eos % (Auto) 0.6 Baso % (Auto) 0.6 Absolute Neuts (auto) 8.7 H Absolute Lymphs (auto) 1.66 Nucleated RBC % 0 PT 13.3 INR 1.0 APTT 23.5 L Sodium 131 L Potassium 4.7 Chloride 98 Carbon Dioxide 26.0 Anion Gap 7 BUN 19 H Creatinine 1.11 H Estim Creat Clear Calc 35.38 Est GFR (MDRD) Af Amer 60 Est GFR (MDRD) Non-Af 50 L BUN/Creatinine Ratio 17.1 Glucose 44 L* Calcium 8.9 Troponin I High Sens 25 Urine Color Urine Clarity Urine pH Ur Specific [place] Urine Protein Urine Glucose (UA) Urine Ketones Urine Occult Blood Urine Nitrite Urine Bilirubin Urine Urobilinogen Ur Leukocyte Esterase Urine RBC Urine WBC Ur Squamous Epith Cells Urine Bacteria Urine Mucus POC Glucose 06/14/22 06/14/22 06/15/22 22:38 23:16 00:00 WBC RBC Hgb Hct MCV MCH MCHC RDW Std Deviation RDW Coeff of Marcio Plt Count MPV Immature Gran % (Auto) Neut % (Auto) Lymph % (Auto) [place] % (Auto) Eos % (Auto) Baso % (Auto) Absolute Neuts (auto) Absolute Lymphs (auto) Nucleated RBC % PT INR APTT Sodium Potassium Chloride Carbon Dioxide Anion Gap BUN Creatinine Estim Creat Clear Calc Est GFR (MDRD) Af Amer Est GFR (MDRD) Non-Af BUN/Creatinine Ratio Glucose Calcium Troponin I High Sens Urine Color Yellow Urine Clarity Sl. Cloudy Urine pH 8.0 Ur Specific [place] 1.015 Urine Protein Negative Urine Glucose (UA) Normal Urine Ketones Negative Urine Occult Blood Negative Urine Nitrite Negative Urine Bilirubin Negative Urine Urobilinogen Normal Ur Leukocyte Esterase 25 H Urine RBC 0 SEEN Urine WBC 0-5 SEEN Ur Squamous Epith Cells 0 SEEN Urine Bacteria 3+ Urine Mucus 0 SEEN POC Glucose 65 L 61 L Radiography Diagnostic Testing: Clinical Impression(s) from Imaging Studies Brain CT 06/14/22 21:48 IMPRESSION: No acute abnormality. CT angiogram and/or MRI may be helpful to evaluate for acute infarct as clinically indicated. Chronic microvascular ischemic disease and volume loss. CT angiogram is pending and will be reported separately. I discussed findings with Maura Sylvester by telephone at 10:11 PM Eastern time. N.B. : The above Results were Read Back by Radha Dinh MD to Maura Lauren MD, and understanding confirmed on 06/14/2022 22:10:32 (ET). Electronically Signed: Radha Dinh MD at 22:13 EST , Head/Neck CTA 06/14/22 21:48 IMPRESSION: Negative CTA Head and Neck. Electronically Signed: Marshall Schmidt MD at 0:05 EST , ADDENDUM: 06/15/22 0014 IMPRESSION: Negative CTA Head and Neck. N.B. : The above Results were Read Back by Marshall Schmidt MD to Maura Lauren MD, and understanding confirmed on 06/15/2022 00:07:07 (ET). Electronically Signed: Marshall Schmidt MD at 0:05 EST , Chest X-Ray 06/14/22 22:43 IMPRESSION: No evidence of active intrathoracic disease. Electronically Signed: Radha Dinh MD at 23:14 EST , Rhythm Strip Rhythm Strip: Sinus Rhythm Rate: 77 Ectopy: None EKG Initial EKG: Attestation: I personally reviewed and interpreted this EKG as follows: Interpretation: Sinus Rhythm Comments: Normal sinus rhythm at a rate of 77 bpm First-degree AV block with a OH interval 278 Normal axis Normal intervals Normal ST segments Discharge Plan Triage Chief Complaint: Neuro S/Sx ED Provider: Maura Lauren Dx/Rx/DC Orders Clinical Impression: Hypoglycemia, DM (diabetes mellitus), type 2, Dementia, AMS (altered mental status) Primary Care Provider: Mello Fowler Disposition Disposition: Acute Care Hospital [facility]
[2022-06-14 22:08] VITALS: BMI 32.1
[2022-06-14 22:18] VITALS: BP 142/79; PULSE 79; PULSE 89; RESP 16; RESP 20; TEMP 35.5; O2SAT 100; BMI 32.1
[2022-06-14 22:26] LABS: Absolute Lymphocyte Count 1.66 X10^3/uL (0.83-4.51); Absolute Neutrophil Count 8.7 X10^3/uL (2.0-7.7); Basophil# 0.07 X10^3/uL; Basophil% 0.6 % (0-1); Eosinophil# 0.07 X10^3/uL; Eosinophils% 0.6 % (0-5); Hematocrit 30.8 % (37-47); Hemoglobin 9.9 g/dL (12.0-15.0); Lymphocyte # 1.66 X10^3/ul (0.83-4.51); Lymphocyte % 14.6 % (19-41); Mean Corp Hgb Conc 32.1 g/dL (32-36); Mean Corpuscular Hgb 29.7 pg (27.0-32.0); Mean Corpuscular Volume 92.5 fL (81-99); Mean Platelet Vol. 9.4 fl (6.2-12.0); Monocyte# 0.78 X10^3/uL; Monocyte% 6.9 % (0-10); NRBC Flagged by Analyzer 0 % (0-5); Neutrophil # 8.69 X10^3/uL (2.7-7.7); Neutrophil % 76.6 % (47-70); Platelet Count 216 K/mm3 (150-450); RBC Distribution Width CV 13.5 % (11.6-14.6); RBC Distribution Width SD 45.9 fl (35.1-43.9); Red Blood Count 3.33 M/mm3 (4.2-5.4); White Blood Count 11.4 K/mm3 (4.4-11.0)
[2022-06-14 22:30] VITALS: BP 142/79; PULSE 74; RESP 18; TEMP 36.1; O2SAT 100
--- NOTE | 2022-06-14 22:43 | RAD_ITS ---
STUDY: X-RAY CHEST REASON FOR EXAM: Female, 87 years old. Neuro deficit, acute, stroke suspected TECHNIQUE: AP portable. 10:38 PM. COMPARISON: 09/11/2021. FINDINGS: LUNGS: No consolidation. No pneumothorax. MEDIASTINUM: Aorta tortuous and atherosclerotic. CARDIAC SILHOUETTE: Not enlarged. BONES AND SOFT TISSUES: Degenerative changes in the dorsal spine and shoulders. RAD/Chest 1 View IMPRESSION: No evidence of active intrathoracic disease. Electronically Signed: Radha Dinh MD at 23:14 EST ,
[2022-06-14 22:45] LABS: Mucous, Urine 0 SEEN /hpf (<or=2+); Red Blood Cells-Urine 0 SEEN /hpf (0-5); Squamous Epithelial Cells - UA 0 SEEN /hpf (5-10)
[2022-06-14 22:46] LABS: Color, Urine Yellow (Yellow); Glucose, Dipstick Normal (Normal); Ketone-Dipstick Negative (Negative); Leukocyte Esterase-Dipstick 25 /ul (Negative); Nitrite-Dipstick Negative (Negative); Occult Blood-Urine Negative /ul (Negative); Protein-Dipstick Negative (Negative); Specific Gravity, Urine 1.015 (1.002-1.030); Urine Bilirubin Dipstick Negative (Negative); Urine Clarity Sl. Cloudy (Clear); Urine Urobilinogen Normal (Normal)
[2022-06-14 22:50] LABS: Prothrombin Time (Protime)PT. 13.3 SECONDS (11.7-14.9)
[2022-06-14 22:51] LABS: Partial Thromboplast Time 23.5 Seconds (24.1-36.2)
[2022-06-14 22:53] LABS: Bacteria 3+ /hpf (None Seen); White Blood Cells 0-5 SEEN /hpf (0-5)
[2022-06-14 22:55] LABS: Anion Gap 7 (5-15); BUN 19 mg/dL (7-18); BUN/Creat Ratio 17.1 RATIO (10-20); Calcium,Total 8.9 mg/dL (8.5-10.1); Chloride 98 mmol/L (98-107); Creatinine, Serum 1.11 mg/dL (0.55-1.02); EST Glomerular Filtration Rate 50 mL/min (>60); Est Glom Filt Rate - Afr Amer 60 mL/min (>60); Estimated Creatinine Clearance 35.38 ml/min; Glucose 44 mg/dL (74-106); Potassium 4.7 mmol/L (3.5-5.1); Sodium Level 131 mmol/L (136-145); Troponin-I HS 25 pg/mL (3.0-54.0)
--- NOTE | 2022-06-14 22:59 | ED.RN ---
CRITICAL RESULT RECIEVED DR. DELATORRE AWARE.
[2022-06-14 23:00] VITALS: BP 141/80; PULSE 79; RESP 20; O2SAT 98
[2022-06-14 23:30] VITALS: BP 140/77; PULSE 88; RESP 15; O2SAT 100
[2022-06-14 23:36] LABS: Bedside Glucose 65 mg/dL (74-106)
[2022-06-15] VITALS (20 sets, daily range): BP systolic 122–141; BP diastolic 62–108; PULSE 65–89; RESP 15–18; TEMP 36.1–37.2; O2SAT 94–100; BMI 30.4
--- NOTE | 2022-06-15 00:06 | PCM.HP.STD ---
HPI - General General Date of Admission: 06/15/22 Date of Service: 06/15/22 Chief Complaint: Strokelike symptoms HPI Narrative LIZA HANCOCK, is a 87 F with a significant history of multiple UTIs; and thalamic lacunar stroke who was brought via EMS to the emergency department because of strokelike symptoms. Reportedly her found her on the floor. Also she has some slurred speech and she could not say her name. Per EMS patient had left-sided deficits and left facial droop. Per, the emergency department doctor patient was moving her left arm up on examination. However, per emergency department doctor both legs were weak. Reportedly initially NIH at emergency department was 12 Because patient was not sure of the time of patient's last known well and because of patient's age; and improvement patient was not deemed to be a candidate for tPA. Per EMS patient blood glucose was in the 150s. However at the emergency department patient glucose on BMP was 44. Patient was given some food to eat and she was placed on dextrose infusion at the ED. Patient's symptoms continued to improve at the emergency department. [facility] Medical History Alzheimer disease Anemia due to stage 3 chronic kidney disease Arthritis Bowel incontinence Chronic diarrhea CPAP (continuous positive airway pressure) dependence Hearing loss, left Hearing loss, right History of Sjogren's disease History of stroke Non-smoker Noninfective gastroenteritis and colitis, unspecified RLS (restless legs syndrome) Type 2 diabetes mellitus without complications Varicose veins of leg with edema Home Medications omeprazole 40 mg capsule,delayed release 40 mg PO DAILY GERD 01/06/14 [History Last Taken 01/05/14] cholecalciferol (vitamin D3) 25 mcg (1,000 unit) capsule 1,000 unit PO DAILY supplement 08/28/16 [History Last Taken Unknown] donepezil 5 mg tablet 10 mg PO QHS memory 08/28/16 [History Last Taken Unknown] glimepiride 4 mg tablet 2 mg PO DAILY blood sugar 08/28/16 [History Last Taken Unknown] metformin 500 mg tablet 500 mg PO DAILY blood sugar 08/28/16 [History Last Taken Unknown] cinnamon bark 500 mg capsule 1,000 mg PO DAILY supplement 11/30/17 [History Last Taken Unknown] erythromycin 5 mg/gram (0.5 %) eye ointment 1 applicatio EACH EYE DAILY eye ointment 11/30/17 [History Last Taken Unknown] atorvastatin 80 mg tablet 80 mg PO QHS #30 tabs 12/03/17 [Rx Last Taken Unknown] clopidogrel 75 mg tablet 75 mg PO DAILY #30 tabs 12/03/17 [Rx Last Taken Unknown] vxtydcqj-bkq-sdlhc acid 0.4 mg-lycopene 300 mcg-lutein 250 mcg tablet 1 ea PO BID supplement 12/03/18 [History Last Taken Unknown] naproxen sodium 220 mg capsule 220 mg PO BID pain 12/03/18 [History Last Taken Unknown] Vitamin C 1 tab PO BID 06/08/19 [History Last Taken Unknown] memantine 10 mg tablet 10 mg PO BID 09/11/21 [History Last Taken Unknown] modafinil 100 mg tablet 100 mg PO DAILY 09/11/21 [History Last Taken Unknown] acetaminophen 500 mg tablet 1,000 mg PO Q8H PRN PRN Pain Score 1-10/Temp > 100.7 F #0 tabs 09/12/21 [Rx Last Taken Unknown] gabapentin 300 mg capsule 300 mg PO TID 01/11/22 [History Last Taken Unknown] loperamide 2 mg capsule 2 mg PO Q6H PRN Diarrhea 01/11/22 [History Last Taken Unknown] ramipril 5 mg capsule 5 mg PO DAILY 01/11/22 [History Last Taken Unknown] ropinirole 0.25 mg tablet 0.25 mg PO QHS 01/11/22 [History Last Taken Unknown] melatonin 10 mg tablet 10 mg PO QHS 06/14/22 [History Last Taken Unknown] Allergy/AdvReac Type Severity Reaction Status Date / Time corn pollen Allergy Intermediate unk Uncoded 02/04/22 15:53 Family History Mother Alzheimer disease Brother Alzheimer disease Aunt Alzheimer disease Father Heart disease Surgical History H/O lumpectomy H/O: hysterectomy History of tonsillectomy Social History household members: spouse Smoking Status: Never smoker alcohol intake: never substance use type: does not use ROS ROS Narrative Pertinent positives and pertinent negatives as noted in HPI. All other systems were reviewed and are negative Vital Signs Vital Signs Vital Signs: 06/14/22 21:51 06/14/22 21:50 06/14/22 21:48 Temperature 95.8 F L 95.8 F L Temperature Source Temporal Temporal Pulse Rate 74 78 Respiratory Rate 18 16 Blood Pressure 143/75 H 142/79 H Blood Pressure Mean 97 100 Pulse Ox 90 90 Oxygen Delivery Method Room Air Room Air Room Air 06/14/22 22:18 06/14/22 22:18 06/14/22 22:30 Temperature 96 F L 96.9 F L Temperature Source Temporal Temporal Pulse Rate 79 89 74 Respiratory Rate 16 20 H 18 Blood Pressure 142/79 H 142/79 H 142/79 H Blood Pressure Mean 100 100 100 Pulse Ox 100 100 100 Oxygen Delivery Method Room Air Room Air Room Air 06/14/22 23:00 Temperature Temperature Source Pulse Rate 79 Respiratory Rate 20 H Blood Pressure 141/80 H Blood Pressure Mean 100 Pulse Ox 98 Oxygen Delivery Method Room Air Weight Weight: 93.2 kg Body Mass Index (BMI) 32.1 Physical Exam Narrative Physical exam: General: Well-nourished, well-developed. Head: Normocephalic, atraumatic, no tenderness Eyes: Vision is grossly intact. EOMI ENT, no trauma, moist mucous membranes, no rhinorrhea Neck: Nontender, full range of motion CVS: Regular rate and rhythm. S1-S2 present. No murmur, gallop or rub. Respiratory : clear to auscultation bilaterally, chest wall nontender, no wheezing Abdomen: Soft, nontender, nondistended, normal bowel sounds, no masses : Deferred Back: Nontender, no CVA tenderness, no midline spinal tenderness, deformities, step-offs Extremities: Nontender full range of motion, no trauma Skin: Normal color, no trauma, abrasions Neuro: Alert, confused, cranial nerves II through XII grossly intact. Strength in all extremities 5 out of 5. Not hyperreflexia in deep tendon reflexes. Psychiatry: Normal mood. Normal affect. Not depressed. Not anxious. Results Lab / Micro Data Result Diagrams: 06/14/22 22:20 06/14/22 22:20 Labs: Laboratory Results - last 24 hr 06/14/22 22:20: WBC 11.4 H, RBC 3.33 L, Hgb 9.9 L, Hct 30.8 L, MCV 92.5, MCH 29.7, MCHC 32.1, RDW Std Deviation 45.9 H, RDW Coeff of Marcio 13.5, Plt Count 216, MPV 9.4, Immature Gran % (Auto) 0.700, Neut % (Auto) 76.6 H, Lymph % (Auto) 14.6 L, [place] % (Auto) 6.9, Eos % (Auto) 0.6, Baso % (Auto) 0.6, Absolute Neuts (auto) 8.7 H, Absolute Lymphs (auto) 1.66, Nucleated RBC % 0 06/14/22 22:20: PT 13.3, INR 1.0, APTT 23.5 L 06/14/22 22:20: Sodium 131 L, Potassium 4.7, Chloride 98, Carbon Dioxide 26.0, Anion Gap 7, BUN 19 H, Creatinine 1.11 H, Estim Creat Clear Calc 35.38, Est GFR (MDRD) Af Amer 60, Est GFR (MDRD) Non-Af 50 L, BUN/Creatinine Ratio 17.1, Glucose 44 L*, Calcium 8.9, Troponin I High Sens 25 06/14/22 22:38: Urine Color Yellow, Urine Clarity Sl. Cloudy, Urine pH 8.0, Ur Specific [place] 1.015, Urine Protein Negative, Urine Glucose (UA) Normal, Urine Ketones Negative, Urine Occult Blood Negative, Urine Nitrite Negative, Urine Bilirubin Negative, Urine Urobilinogen Normal, Ur Leukocyte Esterase 25 H, Urine RBC 0 SEEN, Urine WBC 0-5 SEEN, Ur Squamous Epith Cells 0 SEEN, Urine Bacteria 3+, Urine Mucus 0 SEEN 06/14/22 23:16: POC Glucose 65 L Radiology Impression Chest X-Ray 06/14/22 22:43 IMPRESSION: No evidence of active intrathoracic disease. Electronically Signed: Radha Dinh MD at 23:14 EST , Assessment & Plan Assessment/Plan (1) Hypoglycemia: (2) Stroke-like symptoms: PLAN: Plan Strokelike symptoms Likely from hypoglycemia. Reportedly patient has lost some weight and that may be contributing to her hypoglycemia. Serial NINDS NIH Scale ordered CT brain was visualized and independently interpreted. No brain bleed seen. Radiology interpretation was reviewed. I agree with. Negative CT head and neck CTA. Lipid profile and A1c ordered. Physical therapy, occupational therapy and speech therapy to work with patient. Daily aspirin continued. High intensity statin Permissive hypertension. Control blood pressure with labetalol for systolic blood pressure of more than 220 or diastolic blood pressure of more than 120. MRI brain ordered Hypoglycemia Likely because of his strokelike symptoms since patient could move all extremities and she could talk when blood glucose improved. Hold home glimepiride and metformin. Serial Accu-Cheks. Placed on dextrose infusion at emergency department and continued. Hypertension Blood pressure is elevated However we will hold home blood pressure meds for permissive hypertension. Doubt stroke though. Trend blood pressure and adjust blood pressure medications. DVT prophylaxis: SCDs ordered. Charges/Coding Visit Charges OBSV E&M: 62697 Initial observation care L3
[2022-06-15 00:21] LABS: Bedside Glucose 61 mg/dL (74-106)
[2022-06-15] MEDS: Dextrose 5%/0.9% NaCl 1,000 ML 150 ML IV ×3 (00:33→14:32)
--- NOTE | 2022-06-15 01:19 | ECHOD_ITS ---
Reason For Study: TIA/CVA Procedure This was a 2D Doppler, Color Flow transthoracic echocardiogram. Exam performed portable in patient room. Left Ventricle Normal size and thickness. The left ventricular ejection fraction is 65 %. Normal diastology for age. Right Ventricle Normal right ventricle. Atria The left and right atria are normal. Tiny PFO confirmed by bubble study. No inter-atrial septal aneuysm. Mitral Valve There is Moderate focal posterior mitral annular calcification. There is Moderate focal anterior mitral annular calcification. Trivial mitral valve insufficiency. Tricuspid Valve Pulmonary artery systolic pressure is 40 mmHg. Mild pulmonary hypertension. Trivial tricuspid valve insufficiency. Medication Performed a rapid injection of agitated mix of 9 cc saline and 1cc air to assess for atrial septal defect. MMode/2D Measurements & Calculations LVIDd: 4.9 cm IVSd: 1.0 cm Ao root diam: 3.4 cm LVIDs: 3.2 cm LVPWd: 1.1 cm RVDd: 3.3 cm FS: 35.6 % LAV(MOD-bp): 49.7 ml SV(MOD-sp4): 55.0 ml LVAd ap4: 28.0 cm2 LAV(MOD-bp) Indexed: 24.9 ml/m2 LVLd ap4: 7.7 cm LAV(MOD-sp2): 44.5 ml EDV(MOD-sp4): 82.4 ml LAV(MOD-sp4): 43.3 ml EDV(sp4-el): 86.2 ml LVAs ap4: 13.6 cm2 LVLs ap4: 5.9 cm ESV(MOD-sp4): 27.3 ml ESV(sp4-el): 26.7 ml EF(MOD-sp4): 66.8 % EF(sp4-el): 69.1 % SV(sp4-el): 59.5 ml LA A4 area: 18.7 cm2 LA dimension(2D): 3.6 cm RA A4 area: 16.2 cm2 Time Measurements MV dec time: 0.27 sec Doppler Measurements & Calculations MV E max hitesh: 86.6 cm/sec Lat Peak E' Hitesh: 10.1 cm/sec Med Peak E' Hitesh: 9.4 cm/sec MV A max hitesh: 110.4 cm/sec E/E' lat: 8.5 E/E' med: 9.2 MV E/A: 0.78 Ao V2 max: 155.6 cm/sec LV V1 max: 111.9 cm/sec PA V2 max: 96.7 cm/sec Ao max P.7 mmHg LV V1 max P.0 mmHg TR max hitesh: 296.8 cm/sec TR max P.2 mmHg ECHO/Echo Complete Interpretation Summary The left ventricular ejection fraction is 65 %. Pulmonary artery systolic pressure is 40 mmHg. Mild pulmonary hypertension. Tiny PFO confirmed by bubble study. No inter-atrial septal aneuysm. Ordering Physician: Foreign Paredes Referring Physician: CLINTON SAENZ Performed By: Josie Resendiz RDCS
--- NOTE | 2022-06-15 01:19 | MRI_ITS ---
EXAM: MR HEAD WITHOUT INTRAVENOUS CONTRAST CLINICAL INDICATION: cva, MENTAL STATUS CHANGE, LT WEAKNESS, FACIAL DROOP, HX PREV CVA TECHNIQUE: Multiplanar and multisequence MR images of the brain were obtained without intravenous contrast. This report was created using easyfolio report generation technology. COMPARISON: MRI brain without contrast 11/30/2017. CT head without contrast June 14, 2022. FINDINGS: BRAIN AND EXTRA-AXIAL SPACES: No diffusion restriction to suspect acute or subacute ischemic infarct. 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 T2 FLAIR hyperintensity in the periventricular white matter are chronic white matter ischemic changes. No intra- or extra-axial hemorrhage. No intracranial mass or mass effect. No hydrocephalus. Basal cisterns are patent. SELLA: Unremarkable. Normal sella turcica, pituitary gland, infundibular stalk, optic chiasm and hypothalamus. AUDITORY SYSTEM: Unremarkable. The internal auditory canals are patent. BONES/JOINTS: Unremarkable. No discrete lytic or blastic abnormalities. SINUSES: Unremarkable as visualized. Clear. MASTOID AIR CELLS: Unremarkable as visualized. Clear. ORBITS: Unremarkable as visualized. Both globes, extraocular muscles, optic nerves and retrobulbar fat appear unremarkable. VASCULATURE: Unremarkable as visualized. Normal flow voids in the major intracranial circulation. MRI/Brain without Contrast IMPRESSION: 1. No MRI evidence of acute or subacute ischemic infarct or acute intracranial abnormality. 2. 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 3. Progression of chronic white matter ischemic changes in both cerebral hemispheres Electronically Signed: Alex Rushing MD at 11:06 EST ,
[2022-06-15 02:31] LABS: Bedside Glucose 123 mg/dL (74-106)
[2022-06-15 06:52] LABS: Absolute Lymphocyte Count 1.72 X10^3/uL (0.83-4.51); Absolute Neutrophil Count 5.2 X10^3/uL (2.0-7.7); Basophil# 0.04 X10^3/uL; Basophil% 0.5 % (0-1); Eosinophil# 0.34 X10^3/uL; Eosinophils% 4.2 % (0-5); Hematocrit 29.3 % (37-47); Hemoglobin 9.6 g/dL (12.0-15.0); Lymphocyte # 1.72 X10^3/ul (0.83-4.51); Lymphocyte % 21.2 % (19-41); Mean Corp Hgb Conc 32.8 g/dL (32-36); Mean Corpuscular Hgb 29.9 pg (27.0-32.0); Mean Corpuscular Volume 91.3 fL (81-99); Monocyte# 0.82 X10^3/uL; Monocyte% 10.1 % (0-10); NRBC Flagged by Analyzer 0 % (0-5); Neutrophil # 5.15 X10^3/uL (2.7-7.7); Neutrophil % 63.3 % (47-70); Platelet Count 202 K/mm3 (150-450); RBC Distribution Width CV 13.5 % (11.6-14.6); RBC Distribution Width SD 45.3 fl (35.1-43.9); Red Blood Count 3.21 M/mm3 (4.2-5.4); White Blood Count 8.1 K/mm3 (4.4-11.0)
[2022-06-15 07:18] LABS: Anion Gap 4 (5-15); BUN 16 mg/dL (7-18); BUN/Creat Ratio 16.9 RATIO (10-20); Calcium,Total 8.1 mg/dL (8.5-10.1); Chloride 100 mmol/L (98-107); Cholesterol 91 mg/dL (200); Creatinine, Serum 0.95 mg/dL (0.55-1.02); EST Glomerular Filtration Rate 59 mL/min (>60); Est Glom Filt Rate - Afr Amer 72 mL/min (>60); Estimated Creatinine Clearance 41.34 ml/min; Glucose 84 mg/dL (74-106); High Density Lipoprotein 45 mg/dL; Potassium 4.2 mmol/L (3.5-5.1); Sodium Level 132 mmol/L (136-145); Triglycerides 51 mg/dL; Very Low Density Lipoprotein 10 mg/dL (5-40)
[2022-06-15 07:25] LABS: Bedside Glucose 84 mg/dL (74-106)
[2022-06-15] MEDS: Multivitamins,Ther W-Minerals Tablet 1 TABLET PO ×2 (09:33→16:51)
[2022-06-15] MEDS: Ascorbic Acid 500 MG Tablet PO ×2 (09:33→21:51)
[2022-06-15] MEDS: Erythromycin Base 1 OPTH.TUBE 1 APPLIC EACH EYE (09:34)
[2022-06-15] MEDS: Pantoprazole Sodium 40 MG Tablet PO (09:35)
[2022-06-15] MEDS: Cholecalciferol (VIT D3) 25 MCG TABLET (1,000 UNITS) PO (09:35)
[2022-06-15] MEDS: Clopidogrel Bisulfate 75 MG Tablet PO (09:35)
[2022-06-15] MEDS: Memantine Hydrochloride 10 MG Tablet PO ×2 (09:36→21:51)
[2022-06-15] MEDS: LORazepam 2 MG/ML Syringe 1 MG IV (09:44)
[2022-06-15 09:49] LABS: Hemoglobin A1c 6.1 % (3.8-5.6)
[2022-06-15] MEDS: 0.9% Saline Lock 10 ML Syringe IV (09:49)
[2022-06-15 11:45] LABS: Bedside Glucose 122 mg/dL (74-106)
--- NOTE | 2022-06-15 12:09 | CHAPLAIN ---
Type of Pastoral Visit _x__ Initial Visit ___ Follow-up Visit ___ On-call Visit ___ General Patient Visit ___ Spiritual Assessment ___ Family Conference ___ Bereavement ___ Rapid Response ___ Code Blue ___ Other (describe below) Pastoral Care Referral From ___ Patient _x__ Family ___ Nurse ___ Physician ___ Boat Diesel Motor Mechanic ___ Handicapped Teacher ___ Other (describe below) Sacrament/Intervention _x__ Active listening ___ Anointing ___ Nondenominational ___ Bereavement ___ Communion ___ Юлия exploration ___ _x__ Life review _x__ Prayer ___ Reconciliation ___ Sacrament of Sick ___ Supportive presence ___ Wedding ___ Other (describe below) Pastoral Comments patient is sleeping and does not awaken during visit; spouse is sitting at bedside and holding hand of pt; spouse gives summary of situation and that pt has dementia; pt and spouse have been 63 years and they help each other per ; does most of the home care and personal care for pt; spouse states no particular needs and adds this is just life; spouse welcomes a prayer
--- NOTE | 2022-06-15 12:47 | PN.HOSP_ITS ---
Subjective Subjective Patient seen and examined. She was sitting on the commode and quite distressed because of constipation. She wouldnt really answer any questions and remained agitated because of the pain with the constipation. She has remained hemodynamically stable. Objective Data Objective Data Vital Signs: Vital Signs Temp Pulse Resp BP Pulse Ox O2 Del Method 97.7 F L 69 18 122/62 H 95 Room Air 06/15/22 11:31 06/15/22 11:31 06/15/22 11:31 06/15/22 11:31 06/15/22 11:31 06/15/22 11:31 Oxygen Delivery Method Room Air Weight: 194 lb 7.163 oz Body Mass Index (BMI) 30.4 Intake & Output: Intake and Output for Last 24 Hours 06/13/22 06/14/22 06/15/22 23:59 23:59 23:59 Intake Total 1622.5 / 1622.5 Output Total 1250 / 1250 Balance 372.5 / 372.5 Lab / Micro Data Result Diagrams: 06/15/22 05:55 06/15/22 05:55 Labs: Laboratory Results - last 24 hr 06/14/22 22:20: WBC 11.4 H, RBC 3.33 L, Hgb 9.9 L, Hct 30.8 L, MCV 92.5, MCH 29.7, MCHC 32.1, RDW Std Deviation 45.9 H, RDW Coeff of Marcio 13.5, Plt Count 216, MPV 9.4, Immature Gran % (Auto) 0.700, Neut % (Auto) 76.6 H, Lymph % (Auto) 14.6 L, [place] % (Auto) 6.9, Eos % (Auto) 0.6, Baso % (Auto) 0.6, Absolute Neuts (auto) 8.7 H, Absolute Lymphs (auto) 1.66, Nucleated RBC % 0 06/14/22 22:20: PT 13.3, INR 1.0, APTT 23.5 L 06/14/22 22:20: Sodium 131 L, Potassium 4.7, Chloride 98, Carbon Dioxide 26.0, Anion Gap 7, BUN 19 H, Creatinine 1.11 H, Estim Creat Clear Calc 35.38, Est GFR (MDRD) Af Amer 60, Est GFR (MDRD) Non-Af 50 L, BUN/Creatinine Ratio 17.1, Glucose 44 L*, Calcium 8.9, Troponin I High Sens 25 06/14/22 22:38: Urine Color Yellow, Urine Clarity Sl. Cloudy, Urine pH 8.0, Ur Specific [place] 1.015, Urine Protein Negative, Urine Glucose (UA) Normal, Urine Ketones Negative, Urine Occult Blood Negative, Urine Nitrite Negative, Urine Bilirubin Negative, Urine Urobilinogen Normal, Ur Leukocyte Esterase 25 H, Urine RBC 0 SEEN, Urine WBC 0-5 SEEN, Ur Squamous Epith Cells 0 SEEN, Urine Bacteria 3+, Urine Mucus 0 SEEN 06/14/22 23:16: POC Glucose 65 L 06/15/22 00:00: POC Glucose 61 L 06/15/22 01:09: POC Glucose 123 H 06/15/22 05:19: POC Glucose 84 06/15/22 05:55: WBC 8.1, RBC 3.21 L, Hgb 9.6 L, Hct 29.3 L, MCV 91.3, MCH 29.9, MCHC 32.8, RDW Std Deviation 45.3 H, RDW Coeff of Marcio 13.5, Plt Count 202, MPV 10.0, Immature Gran % (Auto) 0.700, Neut % (Auto) 63.3, Lymph % (Auto) 21.2, [place] % (Auto) 10.1 H, Eos % (Auto) 4.2, Baso % (Auto) 0.5, Absolute Neuts (auto) 5.2, Absolute Lymphs (auto) 1.72, Nucleated RBC % 0 06/15/22 05:55: Sodium 132 L, Potassium 4.2, Chloride 100, Carbon Dioxide 28.0, Anion Gap 4 L, BUN 16, Creatinine 0.95, Estim Creat Clear Calc 41.34, Est GFR (MDRD) Af Amer 72, Est GFR (MDRD) Non-Af 59 L, BUN/Creatinine Ratio 16.9, Glucose 84, Calcium 8.1 L, Triglycerides 51, Cholesterol 91, LDL Cholesterol 36, VLDL Cholesterol 10, HDL Cholesterol 45 06/15/22 05:55: Hemoglobin A1c 6.1 H 06/15/22 11:28: POC Glucose 122 H Radiography Diagnostic Testing: Radiology Impression Brain CT 06/14/22 21:48 IMPRESSION: No acute abnormality. CT angiogram and/or MRI may be helpful to evaluate for acute infarct as clinically indicated. Chronic microvascular ischemic disease and volume loss. CT angiogram is pending and will be reported separately. I discussed findings with Maura Sylvester by telephone at 10:11 PM Eastern time. N.B. : The above Results were Read Back by Radha Dinh MD to Maura Lauren MD, and understanding confirmed on 06/14/2022 22:10:32 (ET). Electronically Signed: Radha Dinh MD at 22:13 EST , Head/Neck CTA 06/14/22 21:48 IMPRESSION: Negative CTA Head and Neck. Electronically Signed: Marshall Schmidt MD at 0:05 EST , ADDENDUM: 06/15/22 0014 IMPRESSION: Negative CTA Head and Neck. N.B. : The above Results were Read Back by Marshall Schmidt MD to Maura Lauren MD, and understanding confirmed on 06/15/2022 00:07:07 (ET). Electronically Signed: Marshall Schmidt MD at 0:05 EST , Chest X-Ray 06/14/22 22:43 IMPRESSION: No evidence of active intrathoracic disease. Electronically Signed: Radha Dinh MD at 23:14 EST , Rhythm Strip Rhythm Strip: Sinus Rhythm Rate: 77 Ectopy: None Physical Exam Const alert and oriented x3 Constitutional Narrative: mildly agitated due to constipation HEENT head/scalp atraumatic and moist oral mucous membranes Head and Scalp: normocephalic Mouth: oral and palatal mucosa normal Neck no lymphadenopathy and supple Resp normal respiratory effort, no retractions and no use of accessory muscles Cardio regular rate, regular rhythm, S1 normal heart sound and S2 normal heart sound GI normal to inspection, nondistended, normoactive bowel sounds, soft to palpation, non-tender and non-distended Extremity normal to inspection, full ROM and no clubbing, cyanosis or edema Neuro oriented x3, moves all extremities and no focal motor deficits Sensorium / Orientation: awake and alert Motor Exam: strength 5/5 throughout Psych Mood & Affect: anxious Assessment & Plan Assessment/Plan (1) AMS (altered mental status): (2) Stroke-like symptoms: (3) Hypoglycemia: PLAN: Plan #SLurred speech and weakness * largely resolved. * may have been due to hypoglycemia also. * CT of the brain showed no acute intracranial pathology * MRI of the brain was negative for any acute infarct. * on plavix and high intensity statin * PT/OT on board * fall precautions * #Diabetes mellitus * was hypoglycemic, which could have contributed to her symptoms also * on metformin and glimepiride * ISs. Accuchecks ACHS #Hypertension: on ramipril #HYperlipidemia: on statin DVT prophylaxis: lovenox Charges/Coding Visit Charges OBSV E&M: 60827 Subsequent observation care L2
--- NOTE | 2022-06-15 13:51 | CASEMGMT ---
This RN CM to room to discuss d/c plan. states that he will take pt home at d/c and does not feel need for therapy at discharge at this time. CM to follow. Young HUERTAS CM
[2022-06-15] MEDS: Glucerna Shake 120 ML LIQUID PO (14:35)
[2022-06-15] MEDS: Insulin Lispro 100 UNIT/ML INSULN.PEN SC ×2 (16:51→21:51)
[2022-06-15 17:06] LABS: Bedside Glucose 208 mg/dL (74-106)
[2022-06-15] MEDS: Atorvastatin Calcium 80 MG Tablet PO (21:51)
[2022-06-15] MEDS: MELATONIN 10 MG TABLET PO (21:51)
[2022-06-15] MEDS: Donepezil HCl 10 MG Tablet PO (21:51)
[2022-06-15] MEDS: Pramipexole Di-HCl 0.125 MG Tablet PO (21:51)
[2022-06-16] VITALS (10 sets, daily range): BP systolic 123–128; BP diastolic 64–102; PULSE 68–96; RESP 18; TEMP 36.6–36.9; O2SAT 93–95
[2022-06-16 00:20] LABS: Bedside Glucose 224 mg/dL (74-106)
--- NOTE | 2022-06-16 06:57 | NURSING ---
Shift documentation reviewed with Stephie HUERTAS.
[2022-06-16 07:07] LABS: Absolute Neutrophil Count 5.2 X10^3/uL (2.0-7.7); Basophil# 0.06 X10^3/uL; Basophil% 0.7 % (0-1); Eosinophil# 0.47 X10^3/uL; Eosinophils% 5.6 % (0-5); Hematocrit 28.3 % (37-47); Hemoglobin 9.1 g/dL (12.0-15.0); Lymphocyte % 21.4 % (19-41); Mean Corp Hgb Conc 32.2 g/dL (32-36); Mean Corpuscular Hgb 29.6 pg (27.0-32.0); Mean Corpuscular Volume 92.2 fL (81-99); Mean Platelet Vol. 9.9 fl (6.2-12.0); Monocyte# 0.86 X10^3/uL; Monocyte% 10.2 % (0-10); NRBC Flagged by Analyzer 0 % (0-5); Neutrophil # 5.18 X10^3/uL (2.7-7.7); Neutrophil % 61.5 % (47-70); Platelet Count 203 K/mm3 (150-450); RBC Distribution Width CV 13.8 % (11.6-14.6); RBC Distribution Width SD 46.6 fl (35.1-43.9); Red Blood Count 3.07 M/mm3 (4.2-5.4); White Blood Count 8.4 K/mm3 (4.4-11.0)
[2022-06-16 07:15] LABS: Bedside Glucose 86 mg/dL (74-106)
[2022-06-16 07:33] LABS: Anion Gap 5 (5-15); BUN 14 mg/dL (7-18); BUN/Creat Ratio 14.5 RATIO (10-20); Calcium,Total 8.3 mg/dL (8.5-10.1); Chloride 103 mmol/L (98-107); Creatinine, Serum 0.96 mg/dL (0.55-1.02); EST Glomerular Filtration Rate 58 mL/min (>60); Est Glom Filt Rate - Afr Amer 71 mL/min (>60); Estimated Creatinine Clearance 40.91 ml/min; Glucose 84 mg/dL (74-106); Potassium 4.3 mmol/L (3.5-5.1); Sodium Level 135 mmol/L (136-145)
--- NOTE | 2022-06-16 10:30 | CASEMGMT ---
SW did not complete a PHQ 9 as patient did not definitively have a TIA or Stroke. Ernestina WORLEY
[2022-06-16] MEDS: Multivitamins,Ther W-Minerals Tablet 1 TABLET PO (10:50)
[2022-06-16] MEDS: Cholecalciferol (VIT D3) 25 MCG TABLET (1,000 UNITS) PO (10:50)
[2022-06-16] MEDS: Ascorbic Acid 500 MG Tablet PO (10:50)
[2022-06-16] MEDS: Memantine Hydrochloride 10 MG Tablet PO (10:50)
[2022-06-16] MEDS: Erythromycin Base 1 OPTH.TUBE 1 APPLIC EACH EYE (10:50)
[2022-06-16] MEDS: Pantoprazole Sodium 40 MG Tablet PO (10:50)
[2022-06-16] MEDS: Clopidogrel Bisulfate 75 MG Tablet PO (10:50)
[2022-06-16] MEDS: Insulin Lispro 100 UNIT/ML INSULN.PEN SC (10:58)
--- NOTE | 2022-06-16 11:02 | CASEMGMT ---
RN HOWARD NOTE: Intro role of CM to patient and . RENAE form explained re: Observation status for treatment of stroke-like symptoms. Explained hospitalization will be paid per her insurance policy for Outpatient billing and condition will continue to be evaluated for Inpt necessity. Also let pt and know that [facility] sends paper in the billing packet with their phone number if questions arise. Discussed Pharmacy section of RENAE form and self administered medication guideline. verbalizes understanding and does not have any questions. Form signed, copy made and placed in chart, and original given to . Therapy to come work w/pt today and to observe to ensure he is able to care for her @ home. Call placed to therapy to let them know he is in room w/pt now. They will come see pt shortly. and pt aware. Sina FRANCO RN CM
[2022-06-16 11:20] LABS: Bedside Glucose 185 mg/dL (74-106)
--- NOTE | 2022-06-16 13:29 | CASEMGMT ---
ALEKSANDAR LAWRENCE NOTE: Therapy has worked w/pt while in room to observe. Per therapy, they feel pt is safe to return home w/. ALEKSANDAR LAWRENCE to room to talk w/pt and . states he feels safe for pt to return home and denies need for HHC. He was made aware, once pt returns home, if he changes his mind and would like HHC, to discuss this w/his PCP. He voices understanding. He states pt has had HHC in the past and felt that it was beneficial, and so he may pursue this in the future, if needed. He denies need for any DME and denies having and discharge planning needs or concerns. Sina FRANCO RN, CM
--- NOTE | 2022-06-16 14:47 | PN.HOSP_ITS ---
Subjective Subjective Patient seen and examined. She was quite confused. Per her nurse, no active events overnight. Review of systems is otherwise negative. Objective Data Objective Data Vital Signs: Vital Signs Temp Pulse Resp BP Pulse Ox O2 Del Method 97.9 F 96 18 123/102 H 94 Room Air 06/16/22 09:15 06/16/22 11:00 06/16/22 09:15 06/16/22 09:15 06/16/22 09:15 06/16/22 09:15 Oxygen Delivery Method Room Air Weight: 194 lb 7.163 oz Body Mass Index (BMI) 30.4 Intake & Output: Intake and Output for Last 24 Hours 06/14/22 06/15/22 06/16/22 23:59 23:59 23:59 Intake Total 3355.0 / 3405.0 50 / 50 Output Total 1250 / 1250 400 / 400 Balance 2105.0 / 2155.0 -350 / -350 Lab / Micro Data Result Diagrams: 06/16/22 05:30 06/16/22 05:30 Labs: Laboratory Results - last 24 hr 06/15/22 16:45: POC Glucose 208 H 06/15/22 21:49: POC Glucose 224 H 06/16/22 05:30: WBC 8.4, RBC 3.07 L, Hgb 9.1 L, Hct 28.3 L, MCV 92.2, MCH 29.6, MCHC 32.2, RDW Std Deviation 46.6 H, RDW Coeff of Marcio 13.8, Plt Count 203, MPV 9.9, Immature Gran % (Auto) 0.600, Neut % (Auto) 61.5, Lymph % (Auto) 21.4, [place] % (Auto) 10.2 H, Eos % (Auto) 5.6 H, Baso % (Auto) 0.7, Absolute Neuts (auto) 5.2, Absolute Lymphs (auto) 1.80, Nucleated RBC % 0 06/16/22 05:30: Sodium 135 L, Potassium 4.3, Chloride 103, Carbon Dioxide 27.0, Anion Gap 5, BUN 14, Creatinine 0.96, Estim Creat Clear Calc 40.91, Est GFR (MDRD) Af Amer 71, Est GFR (MDRD) Non-Af 58 L, BUN/Creatinine Ratio 14.5, Glucose 84, Calcium 8.3 L 06/16/22 06:43: POC Glucose 86 06/16/22 10:56: POC Glucose 185 H Micro: Microbiology 06/14/22 22:38 Urine, Catheterized Urine Culture - Preliminary GNR lactose devops engineer Radiography Diagnostic Testing: Radiology Impression Echocardiogram 06/15/22 01:19 Interpretation Summary The left ventricular ejection fraction is 65 %. Pulmonary artery systolic pressure is 40 mmHg. Mild pulmonary hypertension. Tiny PFO confirmed by bubble study. No inter-atrial septal aneuysm. Ordering Physician: Foreign Paredes Referring Physician: CLINTON SAENZ Performed By: Josie Resendiz RDCS Rhythm Strip Rhythm Strip: Sinus Rhythm Rate: 77 Ectopy: None Physical Exam Const alert and oriented x3 HEENT head/scalp atraumatic, moist oral mucous membranes and oropharynx normal Head and Scalp: normocephalic Mouth: oral and palatal mucosa normal Eyes PERRL and EOMs intact bilaterally Neck no lymphadenopathy and supple Resp normal respiratory effort, no retractions and no use of accessory muscles Cardio regular rate, regular rhythm, S1 normal heart sound and S2 normal heart sound GI normal to inspection, nondistended, normoactive bowel sounds, soft to palpation, non-tender and non-distended Extremity normal to inspection, full ROM and no clubbing, cyanosis or edema Neuro CN's II-XII intact bilaterally, moves all extremities and no focal motor deficits Neuro Narrative: confused Sensorium / Orientation: awake and alert Motor Exam: strength 5/5 throughout Psych Psych Narrative: confused Assessment & Plan Assessment/Plan (1) AMS (altered mental status): (2) Stroke-like symptoms: (3) Hypoglycemia: PLAN: Plan #SLurred speech and weakness * largely resolved. * may have been due to hypoglycemia also. * CT of the brain showed no acute intracranial pathology * MRI of the brain was negative for any acute infarct. * on plavix and high intensity statin * PT/OT on board * fall precautions * #Diabetes mellitus * was hypoglycemic, which could have contributed to her symptoms also * on metformin and glimepiride * ISs. Accuchecks ACHS #Hypertension: on ramipril #HYperlipidemia: on statin #Dementia: on memantine DVT prophylaxis: lovenox Disposition: awaiting placement Charges/Coding Visit Charges Inpatient E&M: 95608 Subs Hosp L2
--- NOTE | 2022-06-16 15:35 | DS.PCM_ITS ---
Providers Date of Admission: 06/15/22 Date of Discharge: 06/16/22 Primary Care Physician: Dr. Mello Fowler DO Reason For Visit: STROKE LIKE SYMPTOMS Diagnosis Discharge Diagnosis (1) AMS (altered mental status): Status: Acute Code(s): R41.82 - Altered mental status, unspecified (2) Stroke-like symptoms: Status: Acute Code(s): R29.90 - Unspecified symptoms and signs involving the nervous system (3) Hypoglycemia: Status: Acute Code(s): E16.2 - Hypoglycemia, unspecified Plan #SLurred speech and weakness * largely resolved. * may have been due to hypoglycemia also. * CT of the brain showed no acute intracranial pathology * MRI of the brain was negative for any acute infarct. * on plavix and high intensity statin * PT/OT on board * fall precautions * #Diabetes mellitus * was hypoglycemic, which could have contributed to her symptoms also * on metformin and glimepiride * ISs. Accuchecks ACHS #Hypertension: on ramipril #HYperlipidemia: on statin #Dementia: on memantine DVT prophylaxis: lovenox Disposition: awaiting placement Medications at Discharge Home Medications omeprazole 40 mg capsule,delayed release 40 mg PO DAILY GERD 01/06/14 cholecalciferol (vitamin D3) 25 mcg (1,000 unit) capsule 1,000 unit PO DAILY supplement 08/28/16 donepezil 5 mg tablet 10 mg PO QHS memory 08/28/16 metformin 500 mg tablet 500 mg PO DAILY blood sugar 08/28/16 cinnamon bark 500 mg capsule 1,000 mg PO DAILY supplement 11/30/17 erythromycin 5 mg/gram (0.5 %) eye ointment 1 applicatio EACH EYE DAILY eye ointment 11/30/17 atorvastatin 80 mg tablet 80 mg PO QHS #30 tabs 12/03/17 clopidogrel 75 mg tablet 75 mg PO DAILY #30 tabs 12/03/17 gptnjeoa-tpr-xidtb acid 0.4 mg-lycopene 300 mcg-lutein 250 mcg tablet 1 ea PO BID supplement 12/03/18 naproxen sodium 220 mg capsule 220 mg PO BID pain 12/03/18 Vitamin C 1 tab PO BID 06/08/19 memantine 10 mg tablet 10 mg PO BID 09/11/21 modafinil 100 mg tablet 100 mg PO DAILY 09/11/21 acetaminophen 500 mg tablet 1,000 mg PO Q8H PRN PRN Pain Score 1-10/Temp > 100.7 F #0 tabs 09/12/21 gabapentin 300 mg capsule 300 mg PO TID 01/11/22 loperamide 2 mg capsule 2 mg PO Q6H PRN Diarrhea 01/11/22 ramipril 5 mg capsule 5 mg PO DAILY 01/11/22 ropinirole 0.25 mg tablet 0.25 mg PO QHS 01/11/22 melatonin 10 mg tablet 10 mg PO QHS 06/14/22 Hospital Course Procedures None Summary of Care Provided Minutes Spent on Discharge: 45 Hospital Course: Patient is an 87-year-old female with a past medical history as outlined was admitted through the ED on 06/15/2022 after she was found on the floor by her . She also had slurred speech say her name. She had some left-sided weakness and so she was brought into the ED due to concerns about stroke. NIH stroke scale on admission was 12. In the ED her blood glucose was 44. His symptoms were therefore thought to be possibly due to hypoglycemia. She was admitted and managed for strokelike symptoms rule out a stroke. She had an MRI of the brain which was negative for stroke. His symptoms resolved though she remained confused due to underlying dementia. She was evaluated by physical therapy. preferred to take him home with home health. Of note hypoglycemia did resolve. She was discharged home on 06/16/2022 and is follow-up with her primary care doctor within 1 to 2 weeks. Patient seen and examined. She was quite confused at time of evaluation. Unable to do review of systems due to confusion. Labs and vitals reviewed. Home medication reviewed and reconciled. A1c was only 6.1 so her glimepiride was discontinued and she was kept on her metformin 500 mg daily. To review with PCP to determine if metformin should also be discontinued. Physical Exam Const alert Constitutional Narrative: confused General Appearance: cooperative Orientation / Consciousness: awake Exam Limitations: altered mental status HEENT normocephalic, head/scalp atraumatic, hearing grossly normal bilaterally, moist oral mucous membranes and oropharynx normal Eyes PERRL and EOMs intact bilaterally Neck no lymphadenopathy and supple Resp normal respiratory effort, no retractions and no use of accessory muscles Cardio regular rate, regular rhythm, S1 normal heart sound and S2 normal heart sound GI normal to inspection, nondistended, normoactive bowel sounds, soft to palpation, non-tender and non-distended Extremity normal to inspection, full ROM and no clubbing, cyanosis or edema Skin no rashes or lesions noted Neuro CN's II-XII intact bilaterally, moves all extremities and no focal motor deficits Neuro Narrative: confused Sensorium / Orientation: awake and alert Motor Exam: strength 5/5 throughout Psych Psych Narrative: confused Weight / BMI Weight Weight: 194 lb 7.163 oz Body Mass Index (BMI) 30.4 ABG / Lab / Microbiology Data Result Diagrams: 06/16/22 05:30 06/16/22 05:30 Laboratory: Laboratory Results - last 24 hr 06/15/22 16:45: POC Glucose 208 H 06/15/22 21:49: POC Glucose 224 H 06/16/22 05:30: WBC 8.4, RBC 3.07 L, Hgb 9.1 L, Hct 28.3 L, MCV 92.2, MCH 29.6, MCHC 32.2, RDW Std Deviation 46.6 H, RDW Coeff of Marcio 13.8, Plt Count 203, MPV 9.9, Immature Gran % (Auto) 0.600, Neut % (Auto) 61.5, Lymph % (Auto) 21.4, [place] % (Auto) 10.2 H, Eos % (Auto) 5.6 H, Baso % (Auto) 0.7, Absolute Neuts (auto) 5.2, Absolute Lymphs (auto) 1.80, Nucleated RBC % 0 06/16/22 05:30: Sodium 135 L, Potassium 4.3, Chloride 103, Carbon Dioxide 27.0, Anion Gap 5, BUN 14, Creatinine 0.96, Estim Creat Clear Calc 40.91, Est GFR (MDRD) Af Amer 71, Est GFR (MDRD) Non-Af 58 L, BUN/Creatinine Ratio 14.5, Glucose 84, Calcium 8.3 L 06/16/22 06:43: POC Glucose 86 06/16/22 10:56: POC Glucose 185 H Microbiology: Microbiology 06/14/22 22:38 Urine, Catheterized Urine Culture - Preliminary GNR lactose media relations 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 D/C Instructions Discharge Diet: Low fat / Low cholesterol Discharge Activity: Return to Normal Activity Weight Bearing Status: Weight bearing as tolerated Call your doctor if you observe: Fever of 101 or Higher, Shortness of breath, Dizziness, Swelling in the ankles and Chest pain Meaningful Use Info Meaningful Use Diagnoses (Choose all that apply): None applicable Discharge Plan Admission Admit Date/Time: 06/15/22 00:09 Primary Reason for Your Visit: hypoglycemia Attending Provider: Isa Verma Primary Care Provider: Mello Fowler Consulting Providers: Foreign Paredes Instructions Patient Instructions: ED Hypoglycemia Oral Diabetic ... Discharge Orders/Prescriptions Prescriptions: Continued gabapentin 300 mg capsule 300 mg PO TID loperamide 2 mg capsule 2 mg PO Q6H PRN (Reason: Diarrhea) ramipril 5 mg capsule 5 mg PO DAILY ropinirole 0.25 mg tablet 0.25 mg PO QHS Rx Instructions: administer 1-3 hours before bedtime omeprazole 40 MG capsule 40 mg PO DAILY Label Comments: STOMACH metformin 500 MG tablet 500 mg PO DAILY donepezil 5 MG tablet 10 mg PO QHS cholecalciferol (vitamin D3) 1,000 UNIT capsule 1,000 unit PO DAILY erythromycin 5 MG/GRAM ointment 1 applicatio EACH EYE DAILY Label Comments: cinnamon bark 500 MG capsule 1,000 mg PO DAILY atorvastatin 80 MG tablet 80 mg PO QHS Qty: 30 0RF clopidogrel 75 MG tablet 75 mg PO DAILY Qty: 30 0RF Hold Instructions: Resume on 09/16/21. rsmiwbsq-ydw-JI-lycopen-lutein 1 EACH tablet 1 ea PO BID naproxen sodium 220 MG capsule 220 mg PO BID Vitamin C 1 tab PO BID modafinil 100 mg tablet 100 mg PO DAILY memantine 10 mg tablet 10 mg PO BID Label Comments: TAKE 1 TABLET BY MOUTH TWICE DAILY acetaminophen 500 mg Tablet 1,000 mg PO Q8H PRN PRN (Reason: Pain Score 1-10/Temp > 100.7 F) Qty: 0 0RF melatonin 10 mg Tablet 10 mg PO QHS Discontinued glimepiride 4 MG tablet 2 mg PO DAILY Label Comments: dibetic medication Referrals / Follow Up: Mello Fowler DO [Primary Care Provider] - Within 1 Week Disposition Disposition (needs filled in before D/C Order can be placed): Home Health Service Charges/Coding Visit Charges Inpatient E&M: 03687 Disch Hosp
== END 2022-06-16 16:50 | disposition home health service (06) ==
LOC: ED 23:57 → PCU 06-15 00:23
PROVIDERS: Admitting Provider Hospitalist; Emergency Provider Emergency Medicine; PCP Family Medicine; Visit Provider Student in an Organized Health Care Education/Training Program
DX: R41.82 Altered mental status, unspecified (principal); G30.9 Alzheimer's disease, unspecified; F02.80 Dementia in other diseases classified elsewhere, unspecified severity, without behavioral disturbance, psychotic disturbance, mood disturbance, and anxiety; E11.649 Type 2 diabetes mellitus with hypoglycemia without coma; E11.22 Type 2 diabetes mellitus with diabetic chronic kidney disease; N18.30 Chronic kidney disease, stage 3 unspecified; R47.81 Slurred speech; R53.1 Weakness; E78.5 Hyperlipidemia, unspecified; Z79.899 Other long term (current) drug therapy; Z79.84 Long term (current) use of oral hypoglycemic drugs; Z79.02 Long term (current) use of antithrombotics/antiplatelets; I12.9 Hypertensive chronic kidney disease with stage 1 through stage 4 chronic kidney disease, or unspecified chronic kidney disease; D63.1 Anemia in chronic kidney disease; R29.712 NIHSS score 12; R29.810 Facial weakness
CPT/HCPCS: 36415; 70450; 70496; 70498; 70551; 71045; 80048; 80061; 81001; 82962; 83036; 84484; 85025; 85610; 85730; 87077; 87086; 87088; 87186; 93005; 93306; 94762; 96361; 96374; 97116; 97162; 97166; 97530; 97535; 97802; 99218; 99285; Q9967; A4216; G0378

== ENCOUNTER 2022-08-10 11:52 | Outpatient (CLI) | payer MEDICARE, OTHER, SELFPAY ==
[2022-08-10 12:25] LABS: Erythrocyte Sedimentation Rate 2 mm/hr (0-30)
[2022-08-10 12:26] LABS: Absolute Lymphocyte Count 1.79 X10^3/uL (0.83-4.51); Absolute Neutrophil Count 4.5 X10^3/uL (2.0-7.7); Basophil# 0.04 X10^3/uL; Basophil% 0.6 % (0-1); Eosinophil# 0.19 X10^3/uL; Eosinophils% 2.7 % (0-5); Hemoglobin 10.1 g/dL (12.0-15.0); Lymphocyte # 1.79 X10^3/ul (0.83-4.51); Lymphocyte % 25.1 % (19-41); Mean Corp Hgb Conc 31.6 g/dL (32-36); Mean Corpuscular Hgb 29.7 pg (27.0-32.0); Mean Corpuscular Volume 94.1 fL (81-99); Mean Platelet Vol. 9.8 fl (6.2-12.0); Monocyte# 0.61 X10^3/uL; Monocyte% 8.6 % (0-10); NRBC Flagged by Analyzer 0 % (0-5); Neutrophil # 4.47 X10^3/uL (2.7-7.7); Neutrophil % 62.6 % (47-70); Platelet Count 211 K/mm3 (150-450); RBC Distribution Width CV 13.6 % (11.6-14.6); RBC Distribution Width SD 46.5 fl (35.1-43.9); White Blood Count 7.1 K/mm3 (4.4-11.0)
[2022-08-10 12:34] LABS: International Normalized Ratio 1.1
[2022-08-10 13:55] LABS: ALB/GLOB Ratio 0.8 RATIO (0.9-2.4); AST(SGOT) 26 U/L (15-37); Alanine Aminotransfer ALT/SGPT 27 U/L (13-56); Albumin, Serum 2.6 g/dL (3.2-5.0); Alkaline Phosphatase 96 U/L (45-117); Anion Gap 9 (5-15); BUN 17 mg/dL (7-18); BUN/Creat Ratio 13.9 RATIO (10-20); CRP < 2.90 mg/L (0.0-3.0); Calcium,Total 8.4 mg/dL (8.5-10.1); Chloride 105 mmol/L (98-107); Creatinine, Serum 1.22 mg/dL (0.55-1.02); EST Glomerular Filtration Rate 44 mL/min (>60); Est Glom Filt Rate - Afr Amer 54 mL/min (>60); Ferritin 57 ng/mL (8-252); Free T3 1.6 pg/mL (2.18-3.98); Globulin 3.2 g/dL (2.2-4.2); Glucose 306 mg/dL (74-106); LDH 205 U/L (84-246); Potassium 4.1 mmol/L (3.5-5.1); Protein, Total 5.8 g/dL (6.4-8.2); Sodium Level 140 mmol/L (136-145); T4 Free Direct 0.97 ng/dL (0.76-1.46); Thyroid Stim Hormone (TSH) 2.56 uIU/mL (0.358-3.74)
[2022-08-11 13:07] LABS: Anti-Centromere B Ab <0.2 AI (0.0-0.9); Anti-Chromatin <0.2 AI (0.0-0.9); Anti-Jo <0.2 AI (0.0-0.9); Anti-Scleroderma-70 AB <0.2 AI (0.0-0.9); RNP Ab <0.2 AI (0.0-0.9); SJOGREN'S Anti-SS-A test 0.6 AI (0.0-0.9); SJOGREN'S Anti-SS-B test < 0.2 AI (0.0-0.9); Smith Ab <0.2 AI (0.0-0.9)
[2022-08-11 15:08] LABS: Endomysial Antibody IgA Negative (Negative)
[2022-08-11 16:15] LABS: Immunoglobulin A 292 mg/dL (64-422); t-Transglutaminase IgA <2 U/mL (0-3)
[2022-08-11 18:34] LABS: Anti-dsDNA Ab 18 IU/mL (0-9)
[2022-08-15 04:07] LABS: Albumin 2.9 g/dL (2.9-4.4); Alpha-1-Globulins 0.2 g/dL (0.0-0.4); Alpha-2-Globulins 0.7 g/dL (0.4-1.0); Cytoplasmic Ab (C-ANCA) <1:20 titer (Neg:<1:20); Immunoglobulin A 294 mg/dL (64-422); Immunoglobulin G 991 mg/dL (586-1602); Immunoglobulin M 64 mg/dL (26-217); PROEL- TOTAL PROTEIN 5.6 g/dL (6.0-8.5)
[2022-08-15 20:38] LABS: Immunoglobulin E 20 IU/mL (6-495); Perinuclear Ab (P-ANCA) <1:20 titer (Neg:<1:20)
== END 2022-08-10 23:59 | disposition home or self-care (01) ==
LOC: LAB 11:54
PROVIDERS: PCP Family Medicine; Visit Provider Internal Medicine Gastroenterology
DX: R19.5 Other fecal abnormalities (principal); M35.00 Sjogren syndrome, unspecified; E11.40 Type 2 diabetes mellitus with diabetic neuropathy, unspecified; I63.9 Cerebral infarction, unspecified; R19.7 Diarrhea, unspecified
CPT/HCPCS: 36415; 80053; 82728; 82784; 82785; 83516; 83615; 84165; 84439; 84443; 84481; 85025; 85610; 85652; 86140; 86225; 86235; 86255; 86256; 86334

== ENCOUNTER → 2022-08-11 | Outpatient (CLI) | payer MEDICARE, OTHER, SELFPAY | END | disposition home or self-care (01) | LOC: LABSPEC 13:31 | PROVIDERS: PCP Family Medicine; Referring Provider Internal Medicine Gastroenterology; Visit Provider Internal Medicine Gastroenterology | DX: R19.7 Diarrhea, unspecified (principal); R19.5 Other fecal abnormalities; K58.9 Irritable bowel syndrome, unspecified | CPT/HCPCS: 82274; 83630; 87506 ==

== ENCOUNTER → 2022-08-13 | Outpatient (CLI) | payer MEDICARE, OTHER, SELFPAY ==
[2022-08-15 20:18] LABS: Calprotectin, Stool 423 ug/g (0-120); Fats, Neutral Normal (.); Fats, Total Increased (.)
[2022-08-16 16:42] LABS: Pancreatic Elastase, Fecal 75 (>200)
== END | disposition home or self-care (01) ==
PROVIDERS: PCP Family Medicine; Visit Provider Internal Medicine Gastroenterology
DX: R19.5 Other fecal abnormalities (principal)
CPT/HCPCS: 82653; 82705; 83993; 87177; 87209; 87329

== ENCOUNTER → 2022-08-23 | Outpatient (CLI) | payer MEDICARE, OTHER, SELFPAY ==
--- NOTE | 2022-08-23 12:45 | CT_ITS ---
STUDY: CT ABDOMEN AND PELVIS WITH CONTRAST REASON FOR EXAM: Female, 87 years old. Loose stools RADIATION DOSAGE (If Supplied By Facility): CTDIvol = ( 16.18 ) mGy, DLP = ( 988.14 ) mGycm TECHNIQUE: Transaxial images were obtained from the dome of the diaphragm to the symphysis pubis with oral contrast. Oral and amp; IV Gastrografin and amp; 100mL Isovue-370 was administered. Sagittal and coronal images were reconstructed. Individualized dose optimization techniques were used for this CT. COMPARISON: Comparison is made with prior study dated 02/28/2013. FINDINGS: Mild increased markings at the lung bases suggestive of a basilar atelectasis versus scarring. Coronary artery calcification. Calcification of the mitral valve annulus. Mild hepatomegaly. Normal gallbladder and extrahepatic biliary system. Normal spleen. Normal pancreas. Normal bilateral adrenal glands. Normal right kidney. Normal left kidney. Normal visualized stomach. Normal small intestine. There are multiple colonic diverticula consistent with diverticulosis. The appendix is visualized and appears normal. There is diffuse atherosclerotic calcification of the abdominal aorta and its major visceral branches, without a demonstrated aneurysm. Normal inferior vena cava. Normal retroperitoneum. Normal urinary bladder. Calcified fibroid uterus. Normal abdominal wall. There are diffuse degenerative changes of the visualized lumbar spine. Grade 1 anterolisthesis of L4 on L5 CT/Abdomen/Pelvis WITH Contrast IMPRESSION: Sigmoid diverticulosis. Calcified fibroid uterus. Findings suggestive of scarring and/or atelectasis at the lung bases. Electronically Signed: Alex Lobato MD at 13:28 EST ,
== END | disposition home or self-care (01) ==
LOC: CT 12:44
PROVIDERS: PCP Family Medicine; Referring Provider Internal Medicine Gastroenterology; Visit Provider Internal Medicine Gastroenterology
DX: R19.5 Other fecal abnormalities (principal)
CPT/HCPCS: 74177; Q9967; A4216

== ENCOUNTER 2022-09-16 15:17 | Inpatient (IN) | payer MEDICARE, OTHER, SELFPAY ==
[2022-09-16 15:20] VITALS: BP 154/78; PULSE 78; RESP 26; TEMP 36.4; O2SAT 94; BMI 29.9
--- NOTE | 2022-09-16 15:27 | CT_ITS ---
EXAM: CT HEAD WITHOUT INTRAVENOUS CONTRAST CLINICAL INDICATION: ALOC TECHNIQUE: Multiple axial images were obtained of the head without intravenous contrast. This CT exam was performed using one or more of the following dose reduction techniques: automated exposure control, adjustment of the mA and/or kV according to patient size, and/or use of iterative reconstruction technique. This report was created using [employer] report generation technology. COMPARISON: 10/12/2021 FINDINGS: BRAIN AND EXTRA-AXIAL SPACES: There is enlargement of the ventricular system and cortical sulci. There is hypoattenuation in the periventricular white matter. No intra- or extra-axial hemorrhage. No evidence of acute infarct. No intracranial mass or mass effect. There is preservation of the watson/white matter interface. Posterior fossa structures are unremarkable. Basal cisterns are patent. BONES/JOINTS: Unremarkable. No discrete lytic or blastic abnormalities. SINUSES: Unremarkable as visualized. Clear. MASTOID AIR CELLS: Unremarkable. Clear. ORBITS: Visualized globes, extraocular muscles, optic nerves and retrobulbar fat appear unremarkable. CT/Brain/Head without Contrast IMPRESSION: 1. No acute intracranial abnormality. There has been no significant change from the reference exam. 2. Stable underlying senescent change with small vessel ischemia. Electronically Signed: Nathaniel Lebron MD at 16:54 EST ,
--- NOTE | 2022-09-16 15:28 | EKG12_ITS ---
Test Reason : Blood Pressure : / mmHG Vent. Rate : 073 BPM Atrial Rate : 073 BPM P-R Int : 248 ms QRS Dur : 072 ms QT Int : 388 ms P-R-T Axes : 083 001 046 degrees QTc Int : 427 ms Somatic/Motion Artifact Sinus rhythm with 1st degree A-V block Low voltage QRS (Limb Leads) Confirmed by RICKIE CANTOR, TONIO ([id number]), publishing editor JUDD UMANA [id number] on 09/18/2022 2:35:11 PM Referred By: Confirmed By:TONIO DAMIAN MD
--- NOTE | 2022-09-16 15:30 | EX.ED.DYSGE1 ---
HPI History of Present Illness Chief Complaint: Alt LOC Informant: patient and EMS Onset/Context/Timing Onset: Days Context: Gradual Onset Timing: Continuous Current Severity: Moderate Maximum Severity: Moderate Narrative Narrative: 87-year-old female reportedly history of dementia, diabetes and prior stroke. Decreased mental status from home. This is per the paramedics. The patient currently is unable to give any history. There is no family present yet at this time. Prior similar symptoms: No Recent Illness/Hospitalization: No PFSH PFSH Medical History Alzheimer disease AMS (altered mental status) Anemia due to stage 3 chronic kidney disease Arthritis Bowel incontinence Chronic diarrhea CPAP (continuous positive airway pressure) dependence Dementia DM (diabetes mellitus), type 2 GERD (gastroesophageal reflux disease) Hearing loss, left Hearing loss, right History of Sjogren's disease History of stroke Nausea and vomiting in adult Non-smoker Noninfective gastroenteritis and colitis, unspecified RLS (restless legs syndrome) Type 2 diabetes mellitus without complications Varicose veins of leg with edema Home Medications omeprazole 40 mg capsule,delayed release 40 mg PO DAILY GERD 01/06/14 [History Last Taken 01/05/14] cholecalciferol (vitamin D3) 25 mcg (1,000 unit) capsule 1,000 unit PO DAILY supplement 08/28/16 [History Last Taken 09/15/22] donepezil 5 mg tablet 10 mg PO QHS memory 08/28/16 [History Last Taken 09/15/22] metformin 500 mg tablet 500 mg PO DAILY blood sugar 08/28/16 [History Last Taken Unknown] cinnamon bark 500 mg capsule 1,000 mg PO DAILY supplement 11/30/17 [History Last Taken 09/15/22] erythromycin 5 mg/gram (0.5 %) eye ointment 1 applicatio EACH EYE DAILY eye ointment 11/30/17 [History Last Taken Unknown] atorvastatin 80 mg tablet 80 mg PO QHS #30 tabs 12/03/17 [Rx Last Taken Unknown] clopidogrel 75 mg tablet 75 mg PO DAILY #30 tabs 12/03/17 [Rx Last Taken 09/15/22] ueixfram-jdk-jbqrk acid 0.4 mg-lycopene 300 mcg-lutein 250 mcg tablet 1 ea PO BID supplement 12/03/18 [History Last Taken 09/15/22] naproxen sodium 220 mg capsule 220 mg PO BID pain 12/03/18 [History Last Taken Unknown] Vitamin C 1 tab PO BID 06/08/19 [History Last Taken 09/15/22] memantine 10 mg tablet 10 mg PO BID 09/11/21 [History Last Taken Unknown] acetaminophen 500 mg tablet 1,000 mg PO Q8H PRN PRN Pain Score 1-10/Temp > 100.7 F #0 tabs 09/12/21 [Rx Last Taken Unknown] ramipril 5 mg capsule 5 mg PO DAILY 01/11/22 [History Last Taken Unknown] ropinirole 0.25 mg tablet 0.5 mg PO QHS 01/11/22 [History Last Taken Unknown] melatonin 10 mg tablet 10 mg PO QHS 06/14/22 [History Last Taken 09/15/22] vvokdk-cwoqgcka-smbgwwu 36,000-114,000-180,000 unit capsule,delay rel (Creon) See Rx Instructions PO .COMPLEX #320 caps 08/28/22 [Rx Last Taken 09/16/22] Allergy/AdvReac Type Severity Reaction Status Date / Time corn pollen Allergy Intermediate unk Uncoded 02/04/22 15:53 Family History Mother Alzheimer disease Brother Alzheimer disease Aunt Alzheimer disease Father Heart disease Surgical History H/O lumpectomy H/O: hysterectomy History of tonsillectomy Social History household members: spouse Smoking Status: Never smoker alcohol intake: never substance use type: does not use ROS ROS ED ROS Narrative Patient unable due to mental status. Review of Systems ROS Unobtainable: due to mental status EXAM Physical Exam Narrative Exam Narrative: 87-year-old female. Vital signs are stable afebrile. Pulse ox 94% on room air no hypoxia. She is in no distress. H EENT exam pupils round react to light. Moist mucous membranes. No obvious trauma to her face or scalp. No facial droop. Neck nontender no meningismus. No lymphadenopathy. Lungs clear to auscultation bilaterally. Heart regular rhythm rate about 80 no murmur. Chest wall nontender. Abdomen soft nontender. Moving all 4 extremities. Nontender no deformities. Neurologically her eyes are open. She is not answering any questions. She is not following commands. There may be some neglect on the left side but she is moving her left arm. Currently she is not speaking so I can assess her speech. Const Vital Signs: 09/16/22 15:20 09/16/22 15:29 Temperature 97.5 F L Temperature Source Temporal Pulse Rate 78 Respiratory Rate 26 H Respiratory Pattern Normal Blood Pressure 154/78 H Blood Pressure Mean 103 Pulse Ox 94 Oxygen Delivery Method Room Air Positive well nourished, well developed and obese; Negative for cachectic, contractures or unkempt General Appearance ED: well developed; Negative for unkempt, cachectic or contractures Nutritional Appearance: obese; Negative for cachectic HEENT Reports moist mucous membranes Negative for trauma or tenderness Eyes PERRL and EOMs intact bilaterally General Eye ED: Negative for pale conjunctiva or scleral icterus Neck no lymphadenopathy, supple and no JVD General: Negative for tenderness Chest Wall inspection of chest normal and palpation of chest normal Resp normal respiratory effort and clear to auscultation bilaterally Effort and Inspection: Negative for retractions Auscultation: Negative for rales, rhonchi or wheezes Cardio regular rate, regular rhythm, S1 normal heart sound, S2 normal heart sound and no murmurs Palpation: Negative for palpable S3 Rate: Negative for bradycardia Rhythm: Negative for abnormal rhythm GI normal to inspection, nondistended, normoactive bowel sounds, non-tender, non-distended and no masses Inspection: Negative for abdominal distention Auscultation: normoactive bowel sounds Palpation: soft; Negative for tender or guarding Back/Spine no CVA tenderness General Back: Negative for CVA tenderness Cervical Spine: Negative for cervical spine tenderness Thoracic Spine / Upper Back: Negative for thoracic spinal tenderness Lumbar Spine / Lower Back: Negative for lumbar spinal tenderness Extremity normal to inspection General Extremety ED: Negative for edema or tenderness General Extremity: Negative for edema Neuro No oriented x3 Sensorium / Orientation: alert and orientation impaired; Negative for lethargic or stuporous Motor Exam: strength 5/5 throughout Psych mental status grossly normal Appearance: Negative for unkempt Skin no rashes or lesions noted and no wounds Lesions: No lesion noted Rashes: No rashes noted Trauma: Negative for abrasion MDM MDM MDM Narrative Medical decision making narrative: 87-year-old female with decreased mental status. This could be from an infectious etiology, electrolyte abnormality, stroke or intracranial event versus other etiologies. CAT scan of her brain labs chest x-ray and EKG will be obtained. She will be given a liter of fluid. She does have diabetes her initial blood sugar is elevated at 420 we will check serum ketones for possible DKA. I suspect she will be admitted. I will speak to the family and review her old records when both are available. Patient's did arrive he is in the room with her. He said this is mainly today. The last several hours. She has had some recent falls but he says she has never hit her head or been knocked out. She has not been ill. She does get frequent urinary tract infections. He states this is a significant different from her baseline. Repeat exam at 6:15 PM patient is doing well. She is resting comfortably. She has received a liter of fluid. Her and I went over all of her test results we do not really have any specific diagnosis at this time. I will send a urine culture but she is not having symptoms and not getting treated for UTI right now which has nitrites and 1+ bacteria with no white or red cells nor any symptoms. Organ to ambulate her if she ambulates her is comfortable taking her home if she is difficulty ambulating I will admit her. He states now she seems more back to her mental status baseline. Patient was unable to get out of bed and walk. She will be admitted to the hospital. Discussed with her is comfortable with the plan and the hospitalist. History & Record Review Discussion w/independent historian: EMS personnel and Significant other Additional record(s) reviewed:: Prior inpatient record, Prior outpatient record and Prior labs Lab Data Attestation: I reviewed the patient's lab results. Lab results narrative: CBC shows white count 7.5. H&H 11.0 and 35. Platelets 248. PT of 13.6 INR 1.1. Electrolytes show sodium 135 gap is 6 normal BUN of 18 creatinine 1.1. Glucose is elevated at 337 she is diabetic. Liver enzymes are unremarkable. Urinalysis shows positive nitrates and 1+ bacteria but no white or red cells. Chest shows no acute abnormality. Acetone is negative. UA has positive nitrates 1+ bacteria. Culture will be sent. Labs: Laboratory Results - last 24 hr 03/04/23 03/04/23 03/04/23 15:40 15:40 15:40 WBC 7.5 RBC 3.66 L Hgb 11.0 L Hct 35.0 L MCV 95.6 MCH 30.1 MCHC 31.4 L RDW Std Deviation 44.8 H RDW Coeff of Marcio 12.8 Plt Count 248 MPV 10.1 Immature Gran % (Auto) 0.500 Neut % (Auto) 57.8 Lymph % (Auto) 30.3 [place] % (Auto) 8.6 Eos % (Auto) 1.9 Baso % (Auto) 0.9 Absolute Neuts (auto) 4.3 Absolute Lymphs (auto) 2.26 Nucleated RBC % 0 PT 13.6 INR 1.1 Sodium 135 L Potassium 4.3 Chloride 101 Carbon Dioxide 28.0 Anion Gap 6 BUN 18 Creatinine 1.18 H Estim Creat Clear Calc 33.28 Est GFR (MDRD) Af Amer 56 L Est GFR (MDRD) Non-Af 46 L BUN/Creatinine Ratio 15.3 Glucose 337 H Lactic Acid Calcium 9.0 Total Bilirubin 0.40 AST 24 ALT 25 Alkaline Phosphatase 100 Total Protein 6.3 L Albumin 3.0 L Globulin 3.3 Albumin/Globulin Ratio 0.9 Urine Color Urine Clarity Urine pH Ur Specific [place] Urine Protein Urine Glucose (UA) Urine Ketones Urine Occult Blood Urine Nitrite Urine Bilirubin Urine Urobilinogen Ur Leukocyte Esterase Urine RBC Urine WBC Ur Squamous Epith Cells Urine Bacteria Urine Mucus Acetone Level 09/16/22 09/16/22 09/16/22 15:40 15:53 17:07 WBC RBC Hgb Hct MCV MCH MCHC RDW Std Deviation RDW Coeff of Marcio Plt Count MPV Immature Gran % (Auto) Neut % (Auto) Lymph % (Auto) [place] % (Auto) Eos % (Auto) Baso % (Auto) Absolute Neuts (auto) Absolute Lymphs (auto) Nucleated RBC % PT INR Sodium Potassium Chloride Carbon Dioxide Anion Gap BUN Creatinine Estim Creat Clear Calc Est GFR (MDRD) Af Amer Est GFR (MDRD) Non-Af BUN/Creatinine Ratio Glucose Lactic Acid 1.9 Calcium Total Bilirubin AST ALT Alkaline Phosphatase Total Protein Albumin Globulin Albumin/Globulin Ratio Urine Color Yellow Urine Clarity Clear Urine pH 5.0 Ur Specific [place] 1.015 Urine Protein Negative Urine Glucose (UA) 1000 H Urine Ketones Negative Urine Occult Blood Negative Urine Nitrite Positive H Urine Bilirubin Negative Urine Urobilinogen Normal Ur Leukocyte Esterase Negative Urine RBC 0 SEEN Urine WBC 0 SEEN Ur Squamous Epith Cells 0 SEEN Urine Bacteria 1+ Urine Mucus 0 SEEN Acetone Level NEGATIVE Radiography Chest X-Ray - ED: 1 View, Read by ED Physician, Heart, Lungs, Mediastinum, Bony Structures, No Acute Disease and Chronic Changes Diagnostic Testing: Clinical Impression(s) from Imaging Studies Brain CT 09/16/22 15:27 IMPRESSION: 1. No acute intracranial abnormality. There has been no significant change from the reference exam. 2. Stable underlying senescent change with small vessel ischemia. Electronically Signed: Nathaniel Lebron MD at 16:54 EST , Chest X-Ray 09/16/22 16:20 IMPRESSION: No radiographic evidence of acute cardiopulmonary disease. Electronically Signed: Nathaniel Lebron MD at 16:44 EST , Chest x-ray, portable, single view shows no acute abnormality. No infiltrate. No effusion. Normal cardiac silhouette. Reviewed by myself. Rhythm Strip Rhythm Strip: Sinus Rhythm Rate: 73 Ectopy: None EKG Initial EKG: Attestation: I personally reviewed and interpreted this EKG as follows: Interpretation: Sinus Rhythm and No Acute Injury Pattern Comments: Normal sinus rhythm rate of 73 no acute signs of SD or ischemia. No significant change from a prior EKG from 2021. Management Discussion w/another healthcare provider: Hospitalist Discharge Plan Triage Chief Complaint: Alt LOC ED Provider: Moncho Thomas Dx/Rx/DC Orders Clinical Impression: Altered level of consciousness, Acute confusion, Unable to ambulate, Hyperglycemia due to diabetes mellitus Prescriptions: No Action ramipril 5 mg capsule 5 mg PO DAILY ropinirole 0.25 mg tablet 0.5 mg PO QHS Rx Instructions: administer 1-3 hours before bedtime omeprazole 40 MG capsule 40 mg PO DAILY Label Comments: STOMACH metformin 500 MG tablet 500 mg PO DAILY donepezil 5 MG tablet 10 mg PO QHS cholecalciferol (vitamin D3) 1,000 UNIT capsule 1,000 unit PO DAILY erythromycin 5 MG/GRAM ointment 1 applicatio EACH EYE DAILY Label Comments: cinnamon bark 500 MG capsule 1,000 mg PO DAILY atorvastatin 80 MG tablet 80 mg PO QHS Qty: 30 0RF clopidogrel 75 MG tablet 75 mg PO DAILY Qty: 30 0RF Hold Instructions: Resume on 09/16/21. fxypzsaz-hni-LV-lycopen-lutein 1 EACH tablet 1 ea PO BID naproxen sodium 220 MG capsule 220 mg PO BID Vitamin C 1 tab PO BID memantine 10 mg tablet 10 mg PO BID Label Comments: TAKE 1 TABLET BY MOUTH TWICE DAILY acetaminophen 500 mg Tablet 1,000 mg PO Q8H PRN PRN (Reason: Pain Score 1-10/Temp > 100.7 F) Qty: 0 0RF melatonin 10 mg Tablet 10 mg PO QHS Creon 36,000-114,000- 180,000 unit capsule,delayed release(DR/EC) See Rx Instructions PO .COMPLEX Qty: 320 0RF Rx Instructions: take 1-2 with snacks and 2-3 with meals Primary Care Provider: Mello Fowler Referrals: Mello Fowler DO [Primary Care Provider] - Disposition Disposition: Acute Care Hospital [facility]
[2022-09-16 16:02] LABS: Mucous, Urine 0 SEEN /hpf (<or=2+); Red Blood Cells-Urine 0 SEEN /hpf (0-5); Squamous Epithelial Cells - UA 0 SEEN /hpf (5-10); White Blood Cells 0 SEEN /hpf (0-5)
[2022-09-16 16:04] LABS: Absolute Lymphocyte Count 2.26 X10^3/uL (0.83-4.51); Absolute Neutrophil Count 4.3 X10^3/uL (2.0-7.7); Basophil# 0.07 X10^3/uL; Basophil% 0.9 % (0-1); Eosinophil# 0.14 X10^3/uL; Eosinophils% 1.9 % (0-5); Lymphocyte # 2.26 X10^3/ul (0.83-4.51); Lymphocyte % 30.3 % (19-41); Mean Corp Hgb Conc 31.4 g/dL (32-36); Mean Corpuscular Hgb 30.1 pg (27.0-32.0); Mean Corpuscular Volume 95.6 fL (81-99); Mean Platelet Vol. 10.1 fl (6.2-12.0); Monocyte# 0.64 X10^3/uL; Monocyte% 8.6 % (0-10); NRBC Flagged by Analyzer 0 % (0-5); Neutrophil # 4.31 X10^3/uL (2.7-7.7); Neutrophil % 57.8 % (47-70); Platelet Count 248 K/mm3 (150-450); RBC Distribution Width CV 12.8 % (11.6-14.6); RBC Distribution Width SD 44.8 fl (35.1-43.9); Red Blood Count 3.66 M/mm3 (4.2-5.4); White Blood Count 7.5 K/mm3 (4.4-11.0)
[2022-09-16] MEDS: 0.9% Normal Saline 1,000 ML 1000 ML IV (16:10)
[2022-09-16 16:12] LABS: Color, Urine Yellow (Yellow); Glucose, Dipstick 1000 mg/dl (Normal); Ketone-Dipstick Negative (Negative); Leukocyte Esterase-Dipstick Negative /ul (Negative); Nitrite-Dipstick Positive (Negative); Occult Blood-Urine Negative /ul (Negative); Protein-Dipstick Negative (Negative); Specific Gravity, Urine 1.015 (1.002-1.030); Urine Bilirubin Dipstick Negative (Negative); Urine Clarity Clear (Clear); Urine Urobilinogen Normal (Normal)
[2022-09-16 16:19] LABS: Bacteria 1+ /hpf (None Seen)
--- NOTE | 2022-09-16 16:20 | RAD_ITS ---
EXAM: XR CHEST, 1 VIEW CLINICAL INDICATION: MS change TECHNIQUE: Frontal view of the chest. This report was created using [employer] report generation technology. COMPARISON: 06/14/2022 FINDINGS: LUNGS AND PLEURAL SPACES: Unremarkable. No consolidation or edema. No pneumothorax. No effusion. HEART: Unremarkable. Cardiac silhouette not enlarged. MEDIASTINUM: Central airways and mediastinal contour are unremarkable. BONES/JOINTS: Unremarkable. SOFT TISSUES: Unremarkable. RAD/Chest 1 View (Portable) IMPRESSION: No radiographic evidence of acute cardiopulmonary disease. Electronically Signed: Nathaniel Lebron MD at 16:44 EST ,
[2022-09-16 16:21] LABS: ALB/GLOB Ratio 0.9 RATIO (0.9-2.4); AST(SGOT) 24 U/L (15-37); Alanine Aminotransfer ALT/SGPT 25 U/L (13-56); Alkaline Phosphatase 100 U/L (45-117); Anion Gap 6 (5-15); BUN 18 mg/dL (7-18); BUN/Creat Ratio 15.3 RATIO (10-20); Chloride 101 mmol/L (98-107); Creatinine, Serum 1.18 mg/dL (0.55-1.02); EST Glomerular Filtration Rate 46 mL/min (>60); Est Glom Filt Rate - Afr Amer 56 mL/min (>60); Estimated Creatinine Clearance 33.28 ml/min; Globulin 3.3 g/dL (2.2-4.2); Glucose 337 mg/dL (74-106); Potassium 4.3 mmol/L (3.5-5.1); Protein, Total 6.3 g/dL (6.4-8.2); Sodium Level 135 mmol/L (136-145)
[2022-09-16 16:23] LABS: International Normalized Ratio 1.1; Prothrombin Time (Protime)PT. 13.6 SECONDS (11.7-14.9)
[2022-09-16 16:32] LABS: Lactic Acid 1.9 mmol/L (0.4-1.9)
--- NOTE | 2022-09-16 18:39 | HP.PCM.HOS_ITS ---
[facility] - General General Date of Admission: 09/16/22 Date of Service: 09/16/22 Chief Complaint: MS Batista HPI Narrative LIZA HANCOCK, is a 87 F who presented to the emergency department at [facility] with her on 09/16/2022 after she was acting abnormally at home. She has fairly significant dementia at baseline and typically is alert and oriented to herself only. Her states she has good days and bad days, for example on Rg's Day she did not know who he was however earlier today she was able to call him by name. It sounds as if she has been having some slow decline over the past several months however she is able to eat independently and take her meds. He helped significantly with her care. Today she was more confused and slower than she had been at baseline. She evidently had had 2 falls in the past week with no injuries. Both falls happened within a 24-hour period. She ambulates in the home by holding onto furniture but has a quad cane and a wheeled walker as well. She uses both of these intermittently. She had a recent admission here early in June 2022 when there was can some concern for stroke and she was found to be hypoglycemic at that time. She was taken off her glipizide and maintained on metformin. Her does show acute sugars at home and they have been higher than usual with the discontinuation of the glipizide. He did admit to giving her grape juice before she came and saw her blood sugar is higher than it had been at home. After talking to it sounds as if maybe she has declined some with regards to her dementia. Vital signs on presentation showed a temperature of 97.5, heart rate of 78, blood pressure 154/78, respiratory rate was 18 and sats were 95% on room air. Chemistry panel shows a chronic stable anemia but was otherwise unremarkable. Coags are normal. Chemistry shows a mild hyponatremia with a sodium of 135 which appears to be close to her baseline as this fluctuates for her. Serum creatinine was 1.18 which seems to be close to her baseline. Serum glucose was markedly elevated however at 337. Lactic acid was normal. Liver function was normal. TSH was 2.42. Her UA showed glucose urea and was positive for nitrites but negative for leuk esterase and white cells. Acetone was negative. CT of the brain showed no acute intercranial abnormality with no significant change from previous exam and stable underlying senescent changes with small vessel ischemia. Chest x-ray was unremarkable for any acute processes. EKG showed normal sinus rhythm with normal intervals and no ST-T wave changes concerning for acute ischemia. No significant findings were found while she was in the emergency department however the patient was not able to get up and move around well and this prohibited the from taking her home. [facility] Medical History Alzheimer disease AMS (altered mental status) Anemia due to stage 3 chronic kidney disease Arthritis Bowel incontinence Chronic diarrhea CPAP (continuous positive airway pressure) dependence Dementia DM (diabetes mellitus), type 2 GERD (gastroesophageal reflux disease) Hearing loss, left Hearing loss, right History of Sjogren's disease History of stroke Nausea and vomiting in adult Non-smoker Noninfective gastroenteritis and colitis, unspecified RLS (restless legs syndrome) Type 2 diabetes mellitus without complications Varicose veins of leg with edema Home Medications omeprazole 40 mg capsule,delayed release 40 mg PO DAILY GERD 01/06/14 [History Last Taken 01/05/14] cholecalciferol (vitamin D3) 25 mcg (1,000 unit) capsule 1,000 unit PO DAILY supplement 08/28/16 [History Last Taken 09/15/22] donepezil 5 mg tablet 10 mg PO QHS memory 08/28/16 [History Last Taken 09/15/22] metformin 500 mg tablet 500 mg PO DAILY blood sugar 08/28/16 [History Last Taken Unknown] cinnamon bark 500 mg capsule 1,000 mg PO DAILY supplement 11/30/17 [History Last Taken 09/15/22] erythromycin 5 mg/gram (0.5 %) eye ointment 1 applicatio EACH EYE DAILY eye ointment 11/30/17 [History Last Taken Unknown] atorvastatin 80 mg tablet 80 mg PO QHS #30 tabs 12/03/17 [Rx Last Taken Unknown] clopidogrel 75 mg tablet 75 mg PO DAILY #30 tabs 12/03/17 [Rx Last Taken 09/15/22] pchwjdvx-rco-tcjes acid 0.4 mg-lycopene 300 mcg-lutein 250 mcg tablet 1 ea PO BID supplement 12/03/18 [History Last Taken 09/15/22] naproxen sodium 220 mg capsule 220 mg PO BID pain 05/21/19 [History Last Taken Unknown] Vitamin C 1 tab PO BID 06/08/19 [History Last Taken 09/15/22] memantine 10 mg tablet 10 mg PO BID 09/11/21 [History Last Taken Unknown] acetaminophen 500 mg tablet 1,000 mg PO Q8H PRN PRN Pain Score 1-10/Temp > 100.7 F #0 tabs 09/12/21 [Rx Last Taken Unknown] ramipril 5 mg capsule 5 mg PO DAILY 01/11/22 [History Last Taken Unknown] ropinirole 0.25 mg tablet 0.5 mg PO QHS 01/11/22 [History Last Taken Unknown] melatonin 10 mg tablet 10 mg PO QHS 06/14/22 [History Last Taken 09/15/22] beskfc-qoegtrnl-qanputo 36,000-114,000-180,000 unit capsule,delay rel (Creon) See Rx Instructions PO .COMPLEX #320 caps 08/28/22 [Rx Last Taken 09/16/22] Allergy/AdvReac Type Severity Reaction Status Date / Time corn pollen Allergy Intermediate unk Uncoded 02/04/22 15:53 Family History Mother Alzheimer disease Brother Alzheimer disease Aunt Alzheimer disease Father Heart disease Surgical History H/O lumpectomy H/O: hysterectomy History of tonsillectomy Social History household members: spouse Smoking Status: Never smoker alcohol intake: never substance use type: does not use ROS Review of Systems ROS Unobtainable: due to mental status Vital Signs Vital Signs Vital Signs: 09/16/22 15:20 09/16/22 15:29 Temperature 97.5 F L Temperature Source Temporal Pulse Rate 78 Respiratory Rate 26 H Respiratory Pattern Normal Blood Pressure 154/78 H Blood Pressure Mean 103 Pulse Ox 94 Oxygen Delivery Method Room Air Weight Weight: 86.9 kg Body Mass Index (BMI) 29.9 Physical Exam Const alert, healthy appearing and well nourished Constitutional Narrative: Elderly white female, obese, lying in bed with sheets over her head, gets somewhat combative when I try to examine her but is able to be calmed by her , does not appear toxic General Appearance: cooperative HEENT normocephalic, head/scalp atraumatic and moist oral mucous membranes HEENT Narrative: Upper dentures in place, Mallampati is 2, mucous membranes are moist, no thrush Eyes PERRL, EOMs intact bilaterally and conjunctivae normal Eyes Narrative: No scleral icterus Neck no lymphadenopathy, supple, no JVD and no carotid bruits Neck Narrative: Trachea midline Resp normal respiratory effort, no retractions, no use of accessory muscles and clear to auscultation bilaterally Auscultation: Negative for rales, rhonchi or wheezes Cardio regular rate, regular rhythm, S1 normal heart sound, S2 normal heart sound, no murmurs, no rub, no gallops and no clicks Extremity no clubbing, cyanosis or edema Extremity Narrative: 2+ pedal pulses, 2+ radial pulses Skin no wounds, skin turgor normal, no jaundice, no petechiae and no mottling Skin Narrative: Scattered ecchymosis monthly on upper extremities with no wounds noted, skin is pale Neuro Neuro Narrative: Patient was not real compliant with exam, reflexes are normal, moves all extremities spontaneously and no focal deficits noted, speech was clear when she would speech but nonsensical at times and not appropriately answering questions Sensorium / Orientation: awake and alert Psych Negative for affect normal Results Lab / Micro Data Attestation: I reviewed the patient's lab results. Result Diagrams: 09/16/22 15:40 09/16/22 15:40 Labs: Laboratory Results - last 24 hr 09/16/22 15:40: WBC 7.5, RBC 3.66 L, Hgb 11.0 L, Hct 35.0 L, MCV 95.6, MCH 30.1, MCHC 31.4 L, RDW Std Deviation 44.8 H, RDW Coeff of Marcio 12.8, Plt Count 248, MPV 10.1, Immature Gran % (Auto) 0.500, Neut % (Auto) 57.8, Lymph % (Auto) 30.3, Nicholas % (Auto) 8.6, Eos % (Auto) 1.9, Baso % (Auto) 0.9, Absolute Neuts (auto) 4.3, Absolute Lymphs (auto) 2.26, Nucleated RBC % 0 09/16/22 15:40: PT 13.6, INR 1.1 09/16/22 15:40: Sodium 135 L, Potassium 4.3, Chloride 101, Carbon Dioxide 28.0, Anion Gap 6, BUN 18, Creatinine 1.18 H, Estim Creat Clear Calc 33.28, Est GFR (MDRD) Af Amer 56 L, Est GFR (MDRD) Non-Af 46 L, BUN/Creatinine Ratio 15.3, Glucose 337 H, Calcium 9.0, Total Bilirubin 0.40, AST 24, ALT 25, Alkaline Phosphatase 100, Total Protein 6.3 L, Albumin 3.0 L, Globulin 3.3, Albumin/Globulin Ratio 0.9 09/16/22 15:40: Lactic Acid 1.9 09/16/22 15:53: Urine Color Yellow, Urine Clarity Clear, Urine pH 5.0, Ur Specific Eloy 1.015, Urine Protein Negative, Urine Glucose (UA) 1000 H, Urine Ketones Negative, Urine Occult Blood Negative, Urine Nitrite Positive H, Urine Bilirubin Negative, Urine Urobilinogen Normal, Ur Leukocyte Esterase Negative, Urine RBC 0 SEEN, Urine WBC 0 SEEN, Ur Squamous Epith Cells 0 SEEN, Urine Bacteria 1+, Urine Mucus 0 SEEN 09/16/22 17:07: Acetone Level NEGATIVE Rhythm Strip Rhythm Strip: Sinus Rhythm Rate: 73 Ectopy: None Radiology Impression Brain CT 09/16/22 15:27 IMPRESSION: 1. No acute intracranial abnormality. There has been no significant change from the reference exam. 2. Stable underlying senescent change with small vessel ischemia. Electronically Signed: Nathaniel Lebron MD at 16:54 EST , Chest X-Ray 09/16/22 16:20 IMPRESSION: No radiographic evidence of acute cardiopulmonary disease. Electronically Signed: Nathaniel Lebron MD at 16:44 EST , Assessment & Plan Assessment/Plan (1) Mental status alteration: (2) Hyperglycemia: (3) Falls: PLAN: Plan Mental status change -Etiology is unclear -Metabolic work-up so far is normal -I am questioning whether she just has progressing dementia -We will check MRI of brain -CT was unremarkable -Check B12/folate -UA is not consistent with UTI -PT/OT consultation PFO -Small PFO noticed on her last echocardiogram from 06/15/2022 -We will need to clinically correlate with MRI -If new stroke present may need to add dual antiplatelet therapy as she is currently on Plavix Falls -PT/OT consultation -Patient may need services at discharge DM-2 with hyperglycemia -Patient came in with mental status change in June 2022 and was found to be hypoglycemic -She was on glipizide and metformin at that time -Glipizide was discontinued -We will give 8 units of Lantus tonight -Hold metformin -Sliding scale -Accu-Cheks -Check hemoglobin A1c -Patient likely needs additional oral medications at discharge but would avoid sulfonylureas GERD -Continue omeprazole HTN/HPL -Continue ramipril -Continue atorvastatin Pancreatic insufficiency -Continue Creon History of stroke -Continue home Plavix next-patient is not on aspirin Dementia -Continue home donepezil -Continue home memantine Restless leg syndrome -Continue home ropinirole DVT prophylaxis -Lovenox 40 subcu daily CODE STATUS -DNR CCA with no intubation as verified with the on admission Charges/Coding Visit Charges Inpatient E&M: 46374 Init Hosp L3
[2022-09-16 19:13] LABS: Thyroid Stim Hormone (TSH) 2.42 uIU/mL (0.358-3.74)
[2022-09-16 19:54] VITALS: BP 136/77; PULSE 72; RESP 18; TEMP 36.6; O2SAT 95
[2022-09-16 20:15] VITALS: BMI 26.6
[2022-09-16 20:43] VITALS: BP 145/89; PULSE 77; RESP 17; TEMP 36.6; O2SAT 95
[2022-09-16 21:01] LABS: Vitamin B12 999 pg/mL (211-911)
[2022-09-16 21:15] VITALS: O2SAT 95
[2022-09-16] MEDS: Memantine Hydrochloride 10 MG Tablet PO (21:31)
[2022-09-16] MEDS: Donepezil HCl 10 MG Tablet PO (21:31)
[2022-09-16] MEDS: MELATONIN 10 MG TABLET PO (21:31)
[2022-09-16] MEDS: Pramipexole Di-HCl 0.25 MG Tablet PO (21:31)
[2022-09-16] MEDS: Insulin Glargine-YFGN 100 UNIT/ML Pen 8 UNIT SC (22:57)
[2022-09-16 23:20] LABS: Bedside Glucose 145 mg/dL (74-106)
[2022-09-17] VITALS (7 sets, daily range): BP systolic 125–149; BP diastolic 60–72; PULSE 58–73; RESP 15–18; TEMP 36.6–36.9; O2SAT 95–98
--- NOTE | 2022-09-17 05:55 | PCM.PN.BLA ---
Progress Note Preliminary blood culture; one with gram positive rods in chains. Patient has no fever or leukocytosis. Likely contaminant.
[2022-09-17 07:06] LABS: Bedside Glucose 108 mg/dL (74-106)
--- NOTE | 2022-09-17 07:07 | PN.HOSP_ITS ---
Reason for Visit Reason for Visit: Diagnoses Altered mental status, unspecified (09/16/22) Hyperglycemia, unspecified (09/16/22) Unspecified fall, initial encounter (09/16/22) Subjective Subjective Laying in bed, no acute distress. at bedside and reports that her mental status and alertness are pretty much back to baseline though still not as mobile as she had been. Open to placement. Objective Data Objective Data Vital Signs: Vital Signs Temp Pulse Resp BP Pulse Ox O2 Del Method 98.3 F 63 15 149/72 H 95 CPAP 09/17/22 03:00 09/17/22 03:00 09/17/22 03:00 09/17/22 03:00 09/17/22 03:00 09/17/22 03:00 Oxygen Delivery Method CPAP Weight: 84.4 kg Body Mass Index (BMI) 26.6 Intake & Output: Intake and Output for Last 24 Hours 09/15/22 09/16/22 09/17/22 23:59 23:59 23:59 Intake Total 1000 / 1000 300 / 300 Balance 1000 / 1000 300 / 300 Lab / Micro Data Result Diagrams: 09/17/22 08:41 09/17/22 08:41 Labs: Laboratory Results - last 24 hr 09/16/22 15:40: WBC 7.5, RBC 3.66 L, Hgb 11.0 L, Hct 35.0 L, MCV 95.6, MCH 30.1, MCHC 31.4 L, RDW Std Deviation 44.8 H, RDW Coeff of Marcio 12.8, Plt Count 248, MPV 10.1, Immature Gran % (Auto) 0.500, Neut % (Auto) 57.8, Lymph % (Auto) 30.3, Radford % (Auto) 8.6, Eos % (Auto) 1.9, Baso % (Auto) 0.9, Absolute Neuts (auto) 4.3, Absolute Lymphs (auto) 2.26, Nucleated RBC % 0 09/16/22 15:40: PT 13.6, INR 1.1 09/16/22 15:40: Sodium 135 L, Potassium 4.3, Chloride 101, Carbon Dioxide 28.0, Anion Gap 6, BUN 18, Creatinine 1.18 H, Estim Creat Clear Calc 33.28, Est GFR (MDRD) Af Amer 56 L, Est GFR (MDRD) Non-Af 46 L, BUN/Creatinine Ratio 15.3, Glucose 337 H, Calcium 9.0, Total Bilirubin 0.40, AST 24, ALT 25, Alkaline Phosphatase 100, Total Protein 6.3 L, Albumin 3.0 L, Globulin 3.3, Albumin/Globulin Ratio 0.9 09/16/22 15:40: Lactic Acid 1.9 09/16/22 15:40: TSH 2.42 09/16/22 15:40: Folate 40.40 09/16/22 15:53: Urine Color Yellow, Urine Clarity Clear, Urine pH 5.0, Ur Specific [place] 1.015, Urine Protein Negative, Urine Glucose (UA) 1000 H, Urine Ketones Negative, Urine Occult Blood Negative, Urine Nitrite Positive H, Urine Bilirubin Negative, Urine Urobilinogen Normal, Ur Leukocyte Esterase Negative, Urine RBC 0 SEEN, Urine WBC 0 SEEN, Ur Squamous Epith Cells 0 SEEN, Urine Bacteria 1+, Urine Mucus 0 SEEN 09/16/22 17:07: Acetone Level NEGATIVE 09/16/22 17:07: Vitamin B12 999 H 09/16/22 22:57: POC Glucose 145 H 09/17/22 06:43: POC Glucose 108 H Micro: Microbiology 09/16/22 15:40 Blood Culture (Wb) - Anticubital Right Blood Culture - Preliminary Radiography Diagnostic Testing: Radiology Impression Brain CT 09/16/22 15:27 IMPRESSION: 1. No acute intracranial abnormality. There has been no significant change from the reference exam. 2. Stable underlying senescent change with small vessel ischemia. Electronically Signed: Nathaniel Lebron MD at 16:54 EST , Chest X-Ray 09/16/22 16:20 IMPRESSION: No radiographic evidence of acute cardiopulmonary disease. Electronically Signed: Nathaniel Lebron MD at 16:44 EST , Rhythm Strip Rhythm Strip: Sinus Rhythm Rate: 73 Ectopy: None Physical Exam Narrative General: Alert, not oriented, no acute distress HEENT: Atraumatic, normocephalic Eyes: Anicteric, normal conjunctiva, extraocular movements grossly intact Neck: Supple Respiratory: Clear to auscultation bilaterally, normal respiratory effort Cardiovascular: Regular rate GI: Soft, nontender, nondistended Extremities: No edema Musculoskeletal: Moving all extremities Neuro: No overt focal neurological deficits, handgrip equal, [id number] bilaterally without difficulty, able to lift and hold both legs without drift Skin: No rashes appreciated Psych: Attempts to be cooperative Assessment & Plan Assessment/Plan (1) Mental status alteration: (2) Hyperglycemia: (3) Falls: PLAN: Plan #Mental status change -Etiology is unclear -Metabolic work-up so far is normal -I am questioning whether she just has progressing dementia -We will check MRI of brain -CT was unremarkable -Check B12/folate -UA is not consistent with UTI -PT/OT consultation -09/17: 1 or 2 blood cultures with gram-positive rods in chains, awaiting speciation and second blood culture. 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 No signs or symptoms of infection at this time. We will follow blood cultures but suspect contaminant. ESR, CRP, Pro-Sherman within normal limits. Given mental status is back to baseline we will hold off on empiric antibiotics and follow cultures. Also given her improvement and and her difficulty staying still and will need to be sedated for EEG, EEG has been discontinued. MRI or order still in place, tentative for tomorrow. #PFO -Small PFO noticed on her last echocardiogram from 06/15/2022 -We will need to clinically correlate with MRI -If new stroke present may need to add dual antiplatelet therapy as she is currently on Plavix -09/17: MRI pending #Falls -PT/OT consultation -Will need placement #DM-2 with hyperglycemia -Patient came in with mental status change in June 2022 and was found to be hypoglycemic -She was on glipizide and metformin at that time -Glipizide was discontinued -We will give 8 units of Lantus tonight -Hold metformin -Sliding scale -Accu-Cheks -Check hemoglobin A1c -Patient likely needs additional oral medications at discharge but would avoid sulfonylureas -09/17: On 8 units of glargine nightly with sliding scale insulin for glucose however blood glucose 100s with a reading of 95 earlier, will de-escalate this given age and comorbidities. Holding metformin. May be able to be transition to only orals that do not cause hypoglycemia on an outpatient basis especially given functional status, prognosis, age #GERD -Continue omeprazole #HTN/HPL -Continue ramipril -Continue atorvastatin #Pancreatic insufficiency -Continue Creon #History of stroke -Continue home Plavix next-patient is not on aspirin #Dementia -Continue home donepezil -Continue home memantine #Restless leg syndrome -Continue home ropinirole #DVT prophylaxis -Lovenox 40 subcu daily Time spent in the patient's overall evaluation,decision-making process, review of diagnostic data, adjustment of management, discussion with other providers, nursing nursing and ancillary staff involved in patient's care documentation, 30 minutes Charges/Coding Visit Charges Inpatient E&M: 44417 Subs Hosp L2
[2022-09-17 09:21] LABS: CRP < 2.90 mg/L (0.0-3.0)
[2022-09-17 09:33] LABS: AST(SGOT) 27 U/L (15-37); Alanine Aminotransfer ALT/SGPT 23 U/L (13-56); Albumin, Serum 2.8 g/dL (3.2-5.0); Alkaline Phosphatase 92 U/L (45-117); Anion Gap 5 (5-15); BUN 13 mg/dL (7-18); BUN/Creat Ratio 14.2 RATIO (10-20); Calcium,Total 9.1 mg/dL (8.5-10.1); Chloride 104 mmol/L (98-107); Creatinine, Serum 0.92 mg/dL (0.55-1.02); EST Glomerular Filtration Rate 62 mL/min (>60); Est Glom Filt Rate - Afr Amer 75 mL/min (>60); Estimated Creatinine Clearance 47.47 ml/min; Globulin 2.8 g/dL (2.2-4.2); Glucose 104 mg/dL (74-106); Magnesium 1.6 mg/dL (1.6-2.6); Phosphorus 3.5 mg/dL (2.5-4.9); Protein, Total 5.6 g/dL (6.4-8.2); Sodium Level 138 mmol/L (136-145)
[2022-09-17 09:59] LABS: Absolute Lymphocyte Count 2.56 X10^3/uL (0.83-4.51); Absolute Neutrophil Count 4.9 X10^3/uL (2.0-7.7); Basophil# 0.06 X10^3/uL; Basophil% 0.7 % (0-1); Eosinophil# 0.26 X10^3/uL; Hemoglobin 10.5 g/dL (12.0-15.0); Lymphocyte # 2.56 X10^3/ul (0.83-4.51); Lymphocyte % 29.6 % (19-41); Mean Corp Hgb Conc 32.8 g/dL (32-36); Mean Corpuscular Hgb 30.3 pg (27.0-32.0); Mean Corpuscular Volume 92.5 fL (81-99); Mean Platelet Vol. 10.5 fl (6.2-12.0); Monocyte% 9.3 % (0-10); NRBC Flagged by Analyzer 0 % (0-5); Neutrophil # 4.93 X10^3/uL (2.7-7.7); Neutrophil % 57.1 % (47-70); Platelet Count 235 K/mm3 (150-450); RBC Distribution Width CV 12.7 % (11.6-14.6); RBC Distribution Width SD 42.9 fl (35.1-43.9); Red Blood Count 3.46 M/mm3 (4.2-5.4); White Blood Count 8.6 K/mm3 (4.4-11.0)
[2022-09-17] MEDS: Creon 12,000 unit DR CapSULE 6 CAP PO ×3 (10:01→17:34)
[2022-09-17] MEDS: Ramipril 5 MG Capsule PO (10:02)
[2022-09-17] MEDS: Multivitamins,Ther W-Minerals Tablet 1 TABLET PO ×2 (10:02→17:34)
[2022-09-17 10:23] LABS: Erythrocyte Sedimentation Rate 5 mm/hr (0-30); Procalcitonin < 0.01 ng/mL (0.00-0.09)
[2022-09-17] MEDS: Enoxaparin 40 MG/0.4 ML Syringe SC (12:00)
[2022-09-17] MEDS: Cholecalciferol (VIT D3) 25 MCG TABLET (1,000 UNITS) PO (12:00)
[2022-09-17] MEDS: Memantine Hydrochloride 10 MG Tablet PO ×2 (12:00→20:45)
[2022-09-17] MEDS: Clopidogrel Bisulfate 75 MG Tablet PO (12:00)
[2022-09-17] MEDS: Pantoprazole Sodium 40 MG Tablet PO (12:00)
[2022-09-17 13:20] LABS: Bedside Glucose 95 mg/dL (74-106)
[2022-09-17 17:56] LABS: Bedside Glucose 134 mg/dL (74-106)
[2022-09-17] MEDS: Donepezil HCl 10 MG Tablet PO (20:44)
[2022-09-17] MEDS: MELATONIN 10 MG TABLET PO (20:45)
[2022-09-17] MEDS: Atorvastatin Calcium 80 MG Tablet PO (20:45)
[2022-09-17] MEDS: Pramipexole Di-HCl 0.25 MG Tablet PO (20:45)
[2022-09-17] MEDS: Insulin Glargine-YFGN 100 UNIT/ML Pen SC (20:51)
[2022-09-17 21:15] LABS: Bedside Glucose 177 mg/dL (74-106)
[2022-09-18] VITALS (11 sets, daily range): BP systolic 135–154; BP diastolic 62–97; PULSE 61–75; RESP 12–18; TEMP 36.3–37; O2SAT 93–96; BMI 26.6
[2022-09-18 06:15] LABS: Bedside Glucose 125 mg/dL (74-106)
[2022-09-18 06:29] LABS: Absolute Lymphocyte Count 2.23 X10^3/uL (0.83-4.51); Absolute Neutrophil Count 4.6 X10^3/uL (2.0-7.7); Basophil# 0.07 X10^3/uL; Basophil% 0.9 % (0-1); Eosinophil# 0.23 X10^3/uL; Eosinophils% 2.9 % (0-5); Hematocrit 35.6 % (37-47); Hemoglobin 11.5 g/dL (12.0-15.0); Lymphocyte # 2.23 X10^3/ul (0.83-4.51); Lymphocyte % 28.2 % (19-41); Mean Corp Hgb Conc 32.3 g/dL (32-36); Mean Corpuscular Hgb 29.6 pg (27.0-32.0); Mean Corpuscular Volume 91.8 fL (81-99); Monocyte# 0.77 X10^3/uL; Monocyte% 9.7 % (0-10); NRBC Flagged by Analyzer 0 % (0-5); Neutrophil # 4.58 X10^3/uL (2.7-7.7); Neutrophil % 57.8 % (47-70); Platelet Count 235 K/mm3 (150-450); RBC Distribution Width CV 12.6 % (11.6-14.6); RBC Distribution Width SD 41.9 fl (35.1-43.9); Red Blood Count 3.88 M/mm3 (4.2-5.4); White Blood Count 7.9 K/mm3 (4.4-11.0)
[2022-09-18 07:02] LABS: ALB/GLOB Ratio 0.8 RATIO (0.9-2.4); AST(SGOT) 25 U/L (15-37); Alanine Aminotransfer ALT/SGPT 26 U/L (13-56); Albumin, Serum 2.7 g/dL (3.2-5.0); Alkaline Phosphatase 104 U/L (45-117); Anion Gap 5 (5-15); BUN 12 mg/dL (7-18); BUN/Creat Ratio 12.3 RATIO (10-20); Calcium,Total 9.3 mg/dL (8.5-10.1); Chloride 104 mmol/L (98-107); Creatinine, Serum 0.97 mg/dL (0.55-1.02); EST Glomerular Filtration Rate 58 mL/min (>60); Est Glom Filt Rate - Afr Amer 70 mL/min (>60); Estimated Creatinine Clearance 45.02 ml/min; Globulin 3.4 g/dL (2.2-4.2); Glucose 136 mg/dL (74-106); Potassium 3.7 mmol/L (3.5-5.1); Protein, Total 6.1 g/dL (6.4-8.2); Sodium Level 138 mmol/L (136-145)
[2022-09-18] MEDS: Creon 12,000 unit DR CapSULE 6 CAP PO (10:02)
[2022-09-18] MEDS: Multivitamins,Ther W-Minerals Tablet 1 TABLET PO (10:02)
[2022-09-18] MEDS: Pantoprazole Sodium 40 MG Tablet PO (10:03)
[2022-09-18] MEDS: Ramipril 5 MG Capsule PO (10:03)
[2022-09-18] MEDS: Enoxaparin 40 MG/0.4 ML Syringe SC (10:03)
[2022-09-18] MEDS: Cholecalciferol (VIT D3) 25 MCG TABLET (1,000 UNITS) PO (10:04)
[2022-09-18] MEDS: Clopidogrel Bisulfate 75 MG Tablet PO (10:04)
[2022-09-18] MEDS: Memantine Hydrochloride 10 MG Tablet PO (10:09)
[2022-09-18] MEDS: Glucerna Shake 120 ML LIQUID PO (10:09)
[2022-09-18] MEDS: LORazepam 2 MG/ML Syringe 1 MG IV (11:38)
[2022-09-18] MEDS: 0.9% Saline Lock 10 ML Syringe IV (11:39)
--- NOTE | 2022-09-18 12:08 | MRI_ITS ---
We are attempting to reach an attending provider to discuss findings. An addendum with communication details will be sent when the communication is complete. EXAM: MR HEAD WITHOUT INTRAVENOUS CONTRAST CLINICAL INDICATION: change in mental status TECHNIQUE: Multiplanar and multisequence MR images of the brain were obtained without intravenous contrast. This report was created using [employer] report generation technology. COMPARISON: CT head without contrast 09/16/2022. MRI brain without contrast 06/15/2022. FINDINGS: BRAIN AND EXTRA-AXIAL SPACES: Small dot of diffusion restriction in the medial aspect of the right posterior periventricular white matter is acute lacunar ischemic infarct. T2 FLAIR hyperintensity foci in the white matter of both cerebral hemispheres are chronic white matter ischemic changes and unchanged. Old ischemic infarct with focal atrophy and encephalomalacia in the left precuneus is unchanged. Old lacunar cystic infarct in the left ventral thalamus is unchanged. No intra- or extra-axial hemorrhage. No intracranial mass or mass effect. Posterior fossa structures are unremarkable. No hydrocephalus. Basal cisterns are patent. SELLA: Unremarkable. Normal sella turcica, pituitary gland, infundibular stalk, optic chiasm and hypothalamus. AUDITORY SYSTEM: Unremarkable. The internal auditory canals are patent. BONES/JOINTS: Unremarkable. No discrete lytic or blastic abnormalities. SINUSES: Unremarkable as visualized. Clear. MASTOID AIR CELLS: Unremarkable as visualized. Clear. ORBITS: Unremarkable as visualized. Both globes, extraocular muscles, optic nerves and retrobulbar fat appear unremarkable. VASCULATURE: Unremarkable as visualized. Normal flow voids in the major intracranial circulation. MRI/Brain without Contrast IMPRESSION: 1. Acute lacunar ischemic infarct in the medial aspect of the right posterior periventricular white matter. 2. 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 3. Chronic white matter ischemic changes in both cerebral hemispheres are unchanged. Electronically Signed: Alex Rushing MD at 13:14 EST ,
[2022-09-18 12:16] LABS: Bedside Glucose 213 mg/dL (74-106)
--- NOTE | 2022-09-18 13:32 | TELEMED_ITS ---
[facility] has confirmed receipt of a request for visit. This document confirms receipt of the order initiating the consult. To find the results of the consultation, please view the patient's reports for the scanned Telemed Consult.
--- NOTE | 2022-09-18 13:33 | ECHOD_ITS ---
Reason For Study: TIA/CVA Procedure This was a 2D Doppler, Color Flow transthoracic echocardiogram. Technically difficult study due to combative patient. Scanned Supine. Exam performed portable in patient room. Left Ventricle Normal LV size. The estimated ejection fraction is 55 %. Stage 1 diastolic dysfunction. No regional wall motion abnormalities noted. Right Ventricle Normal RV size. Normal systolic function. Atria Normal left atrium. Normal right atrium. Mitral Valve There is moderate to severe mitral annular calcification. There is Mild focal anterior mitral annular calcification. Tricuspid Valve Normal tricuspid valve. Pulmonic Valve Normal pulmonic valve. Great Vessels Normal aortic root. The pulmonary artery is normal size. Normal inferior vena cava. Pericardium/Pleural No pericardial effusion. MMode/2D Measurements & Calculations LVIDd: 4.3 cm IVSd: 1.3 cm LVAd ap2: 24.4 cm2 LVIDs: 2.9 cm LVPWd: 0.98 cm LVLd ap2: 8.1 cm FS: 32.1 % EDV(MOD-sp2): 64.3 ml EDV(sp2-el): 62.5 ml LVAs ap2: 13.0 cm2 LVLs ap2: 6.4 cm ESV(MOD-sp2): 22.9 ml ESV(sp2-el): 22.4 ml EF(MOD-sp2): 64.4 % SV(MOD-sp2): 41.4 ml LA dimension(2D): 3.6 cm Time Measurements MV dec time: 0.20 sec Doppler Measurements & Calculations MV E max hitesh: 49.7 cm/sec Lat Peak E' Hitesh: 7.6 cm/sec Med Peak E' Hitesh: 6.1 cm/sec MV A max hitesh: 82.8 cm/sec E/E' lat: 6.5 E/E' med: 8.1 MV E/A: 0.60 MV V2 max: 82.4 cm/sec MV dec slope: 243.4 cm/sec2 Ao V2 max: 91.7 cm/sec MV max P.7 mmHg Ao max P.4 mmHg MV V2 mean: 35.6 cm/sec Ao V2 mean: 61.0 cm/sec MV mean P.70 mmHg Ao mean P.8 mmHg MV V2 VTI: 19.6 cm Ao V2 VTI: 18.7 cm AV (velocity ratio): 0.79 LV V1 max: 70.7 cm/sec LV V1 max P.0 mmHg LV V1 mean P.2 mmHg LV V1 mean: 50.8 cm/sec LV V1 VTI: 14.8 cm ECHO/Echo Complete Interpretation Summary Normal LV size. The estimated ejection fraction is 55 %. No regional wall motion abnormalities noted. Stage 1 diastolic dysfunction. There is moderate to severe mitral annular calcification. There is Mild focal anterior mitral annular calcification. Ordering Physician: Isa Verma Referring Physician: Mello Fowler Performed By: Savannah Bangura RCS
--- NOTE | 2022-09-18 13:36 | PN_ITS ---
Subjective Subjective Patient seen and examined. She had no active complaints. She denied any fever, chills, cough, chest pain, palpitations, dizziness, nausea, vomiting or diarrhea. Review of systems is otherwise negative. She does have baseline dementia but is able to communicate and ask questions. Review of systems is otherwise negative. She has remained hemodyamically stable. Objective Data Objective Data Vital Signs: Vital Signs Temp Pulse Resp BP Pulse Ox O2 Del Method O2 Flow Rate 97.9 F 66 12 152/62 H 95 Nasal Cannula 2 09/18/22 05:30 09/18/22 12:45 09/18/22 12:30 09/18/22 12:45 09/18/22 12:45 09/18/22 12:45 09/18/22 12:45 Oxygen Flow Rate (L/min) 2 Oxygen Delivery Method Nasal Cannula Weight: 186 lb 1.122 oz Body Mass Index (BMI) 26.6 Intake & Output: Intake and Output for Last 24 Hours 09/16/22 09/17/22 09/18/22 23:59 23:59 23:59 Intake Total 1000 / 1000 900 / 900 Balance 1000 / 1000 900 / 900 Lab / Micro Data Result Diagrams: 09/18/22 06:10 09/18/22 06:10 Labs: Laboratory Results - last 24 hr 09/17/22 17:31: POC Glucose 134 H 09/17/22 20:50: POC Glucose 177 H 09/18/22 05:55: POC Glucose 125 H 09/18/22 06:10: WBC 7.9, RBC 3.88 L, Hgb 11.5 L, Hct 35.6 L, MCV 91.8, MCH 29.6, MCHC 32.3, RDW Std Deviation 41.9, RDW Coeff of Marcio 12.6, Plt Count 235, MPV 10.0, Immature Gran % (Auto) 0.500, Neut % (Auto) 57.8, Lymph % (Auto) 28.2, [place] % (Auto) 9.7, Eos % (Auto) 2.9, Baso % (Auto) 0.9, Absolute Neuts (auto) 4.6, Absolute Lymphs (auto) 2.23, Nucleated RBC % 0 09/18/22 06:10: Sodium 138, Potassium 3.7, Chloride 104, Carbon Dioxide 29.0, Anion Gap 5, BUN 12, Creatinine 0.97, Estim Creat Clear Calc 45.02, Est GFR (MDRD) Af Amer 70, Est GFR (MDRD) Non-Af 58 L, BUN/Creatinine Ratio 12.3, Glucose 136 H, Calcium 9.3, Total Bilirubin 0.50, AST 25, ALT 26, Alkaline Phosphatase 104, Total Protein 6.1 L, Albumin 2.7 L, Globulin 3.4, Albumin/Globulin Ratio 0.8 L 09/18/22 11:51: POC Glucose 213 H Micro: Microbiology 09/16/22 15:40 Blood Culture (Wb) - Anticubital Right Blood Culture - Preliminary Possible Fungus 09/16/22 15:53 Urine Catheter - Catheter Urine Culture - Final Escherichia coli Radiography Diagnostic Testing: Radiology Impression Brain MRI 09/18/22 12:08 IMPRESSION: 1. Acute lacunar ischemic infarct in the medial aspect of the right posterior periventricular white matter. 2. 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 3. Chronic white matter ischemic changes in both cerebral hemispheres are unchanged. Electronically Signed: Alex Rushing MD at 13:14 EST Reading Location ID and State: [address] [place] [address] , Service support , Rhythm Strip Rhythm Strip: Sinus Rhythm Rate: 73 Ectopy: None Physical Exam Const alert and no apparent distress Constitutional Narrative: baseline confusion but able to answer questions today. HEENT normocephalic, head/scalp atraumatic, moist oral mucous membranes and oropharynx normal Eyes PERRL and EOMs intact bilaterally Resp Resp Narrative: Mildly diminished breath sounds bibasilarly. No wheezes or crackles. Cardio regular rate, regular rhythm, S1 normal heart sound, S2 normal heart sound and no murmurs GI normal to inspection, nondistended, normoactive bowel sounds, soft to palpation, non-tender and non-distended Extremity normal capillary refill and no clubbing, cyanosis or edema Skin General Skin Exam: no breakdown Neuro CN's II-XII intact bilaterally, no focal motor deficits and no sensory deficits noted Speech: speech normal Motor Exam: strength 5/5 throughout Psych Appearance: appropriate Assessment & Plan Assessment/Plan (1) Hyperglycemia: (2) Mental status alteration: (3) Falls: (4) CVA (cerebral vascular accident): PLAN: Plan #Acute CVA * She was sent with a plaint of altered mental status. CT of the brain showed no acute intracranial pathology. 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 * Patient already on Plavix and high intensity statin. We will add on aspirin. * Neurology consulted. He did have 2D echo back in June 2022 which showed a tiny PFO. This will warrant aspirin being added on. * CTA had and neck in May 2022 was negative. Will hold off on repeating another one now * 2D echo also done in 2021; will hold off on a repeat now * PT/OT on board. fall precautions * #Acute metabolic encephalopathy * thought to be due to worsening dementia. However, acute CVA may also be playing a role in light of the recent MRI dingdings * PT/OT on board. * Fall recautions. * she is back to her baseline and able to communicate and answer questions. * #Type 2 diabetes mellitus * Was found to be hyperglycemic during this admission. * Of note patient was hypoglycemic on presentation when she was admitted and evaluated in June 2022. O * n account of the hypoglycemia her glipizide was discontinued on admission. * Her A1c was also 6.1 at that time. * A1c for this admission pending. Currently on metformin. * We will adjust dose of medication as needed. * #GERD: On PPI #Hypertension: Hold BP meds to allow for permissive hypertension #Hyperlipidemia: On high intensity statin #Dementia: On memantine #Restless leg syndrome: On ropinirole DVT prophylaxis: Lovenox Charges/Coding Visit Charges Inpatient E&M: 32878 Subs Hosp L2
--- NOTE | 2022-09-18 14:30 | CASEMGMT ---
ALEKSANDAR LAWRENCE DC Planning Assessment: Face to Face with patient and pt's spouse for initial transition planning/care coordination assessment. Pt resting quietly with her eyes closed. Pt's spouse at bedside and reports pt with dementia. ALEKSANDAR LAWRENCE introduced self and role at [facility], pt's spouse voices understanding and agreeable to participating in assessment. Care providers, pharmacy, and demographics verified. Admitting Dx: Mental Status change PCP: Janeth Specialists: Sharad (Podiatry), Rosangela (GI), Laya (neurology), Diony (ophthalmology) Preferred Pharmacy: [facility] (but is switching to [facility] for glucometer supplies) Insurance: MCR A/B, [employer] supplement Prescription Benefit: yes Living Will/HPOA: none LNOK: spouse Mat Living Arrangements: Pt lives with her spouse Mat in a split level home with 9 steps to the second floor and 7 steps to the kitchen, bedroom, bathroom, and dining areas all with a handmade oak handrail. Pt requires assistance from spouse for all ADLs. Spouse does set pt up for bathing and pt is able to do some of her own bathing with supervision but spouse assists for the majority of the routine. Pt's spouse prepares meals and performs all house hold tasks. Transportation: Pt's spouse drives. DME: quad cane, wheeled walker, rollator, shower chair (does not use), handmade wooden seat for the shower, hand held shower, high rise toilet, pulse oximeter, CPAP, bathtub lift which spouse uses to assist with getting pt up when she has fallen. Spouse is also preparing to install grab bars around the shower and a second handrail for the steps. Glucometer but spouse states he has been unable to obtain glucometer strips at [facility] and is in the process of switching to [facility] to obtain them. States he has not been able to monitor pt's glucose due to not having these strips. SNF/HHC: pt's spouse denies any previous providers. Plan: Pt's spouse plans to take pt home and continue to provide care as long as she can walk. Reviewed PT/OT notes with spouse who states he did not see her in therapy as it occurred just prior to his arrival today. Discussed need for pt to be able to climb steps and that this would need to be evaluated by PT/OT. Discussed possible home health at discharge if pt able to return home; however spouse concerned that he would not have the time or energy to continue any of the therapy exercises once their services had been completed and with pt's dementia, pt would not be able to complete these independently. Discussed with spouse additional support. Spouse states their daughter has been in a severe MVA that has left her with difficulties caring for herself and is unable to assist him. Their two sons live of town/state and are not available to assist. Will continue to monitor pt's progress with therapy and discuss appropriate discharge needs/disposition with pt's spouse. Wan Ruiz RN CM
--- NOTE | 2022-09-18 14:50 | CHAPLAIN ---
Type of Pastoral Visit _x__ Initial Visit ___ Follow-up Visit ___ On-call Visit ___ General Patient Visit ___ Spiritual Assessment ___ Family Conference ___ Bereavement ___ Rapid Response ___ Code Blue ___ Other (describe below) Pastoral Care Referral From ___ Patient _x__ Family ___ Nurse ___ Physician ___ Assistant Women'S Tennis Coach ___ Safety Companion ___ Other (describe below) Sacrament/Intervention _x__ Active listening ___ Anointing ___ Alevism ___ Bereavement ___ Communion ___ Юлия exploration ___ _x_ Life review ___ Prayer ___ Reconciliation ___ Sacrament of Sick _x__ Supportive presence ___ Wedding ___ Other (describe below) Pastoral Comments patient is sleeping and was not awakened for this visit; spouse is in room and gives life details, condition of her coming to hospital, diagnosis of dementia for pt, and their life needs at this time; offer of support given; spouse states that he is doing fine and is in pretty good shape for his age; spouse takes care of pt at home; offer of future support given
[2022-09-18 16:50] LABS: Bedside Glucose 168 mg/dL (74-106)
[2022-09-18] MEDS: Erythromycin Base 1 OPTH.TUBE 1 APPLIC EACH EYE (21:33)
[2022-09-19] VITALS (10 sets, daily range): BP systolic 108–182; BP diastolic 78–114; PULSE 72–104; RESP 16–18; TEMP 36.4–36.7; O2SAT 91–97; BMI 26.6
[2022-09-19 00:15] LABS: Bedside Glucose 155 mg/dL (74-106)
[2022-09-19 05:59] LABS: Absolute Lymphocyte Count 1.92 X10^3/uL (0.83-4.51); Absolute Neutrophil Count 4.5 X10^3/uL (2.0-7.7); Basophil# 0.07 X10^3/uL; Basophil% 0.9 % (0-1); Eosinophil# 0.22 X10^3/uL; Eosinophils% 2.9 % (0-5); Hematocrit 36.8 % (37-47); Hemoglobin 12.1 g/dL (12.0-15.0); Lymphocyte # 1.92 X10^3/ul (0.83-4.51); Lymphocyte % 25.5 % (19-41); Mean Corp Hgb Conc 32.9 g/dL (32-36); Mean Corpuscular Volume 91.3 fL (81-99); Mean Platelet Vol. 9.4 fl (6.2-12.0); Monocyte# 0.79 X10^3/uL; Monocyte% 10.5 % (0-10); NRBC Flagged by Analyzer 0 % (0-5); Neutrophil # 4.49 X10^3/uL (2.7-7.7); Neutrophil % 59.7 % (47-70); Platelet Count 244 K/mm3 (150-450); RBC Distribution Width CV 12.6 % (11.6-14.6); RBC Distribution Width SD 41.7 fl (35.1-43.9); Red Blood Count 4.03 M/mm3 (4.2-5.4); White Blood Count 7.5 K/mm3 (4.4-11.0)
[2022-09-19 06:36] LABS: Bedside Glucose 146 mg/dL (74-106)
[2022-09-19 06:51] LABS: Anion Gap 7 (5-15); BUN 12 mg/dL (7-18); BUN/Creat Ratio 12.8 RATIO (10-20); Calcium,Total 9.2 mg/dL (8.5-10.1); Chloride 103 mmol/L (98-107); Cholesterol 114 mg/dL (200); Creatinine, Serum 0.94 mg/dL (0.55-1.02); EST Glomerular Filtration Rate 60 mL/min (>60); Est Glom Filt Rate - Afr Amer 73 mL/min (>60); Estimated Creatinine Clearance 46.46 ml/min; Glucose 154 mg/dL (74-106); High Density Lipoprotein 41 mg/dL; Potassium 3.6 mmol/L (3.5-5.1); Sodium Level 137 mmol/L (136-145); Triglycerides 117 mg/dL; Very Low Density Lipoprotein 23 mg/dL (5-40)
[2022-09-19] MEDS: Creon 12,000 unit DR CapSULE 6 CAP PO ×3 (10:31→17:06)
[2022-09-19] MEDS: Pantoprazole Sodium 40 MG Tablet PO (10:31)
[2022-09-19] MEDS: Cholecalciferol (VIT D3) 25 MCG TABLET (1,000 UNITS) PO (10:32)
[2022-09-19] MEDS: Aspirin 81 MG TAB.CHEW PO (10:32)
[2022-09-19] MEDS: Clopidogrel Bisulfate 75 MG Tablet PO (10:32)
[2022-09-19] MEDS: Multivitamins,Ther W-Minerals Tablet 1 TABLET PO ×2 (10:32→17:06)
[2022-09-19] MEDS: Glucerna Shake 120 ML LIQUID PO ×2 (10:33→21:23)
[2022-09-19] MEDS: Enoxaparin 40 MG/0.4 ML Syringe SC (10:33)
[2022-09-19] MEDS: Ramipril 5 MG Capsule PO (11:38)
[2022-09-19] MEDS: Insulin Lispro 100 UNIT/ML INSULN.PEN SC ×2 (11:38→17:05)
[2022-09-19 12:01] LABS: Bedside Glucose 202 mg/dL (74-106)
--- NOTE | 2022-09-19 13:24 | CASEMGMT ---
PHOENIX met with patient's as patient was sleeping and she has Dementia. PHOENIX introduced self and role at [facility]. SW asked patient's if he was present when therapy worked with patient today. He said he was and he is about 90% sure he can take her home. Patient has to be able to go up steps and he has not seen her walk the halls yet. He feels she is getting better so he will likely take her home. PHOENIX and ALEKSANDAR LAWRENCE continue to follow. Ernestina WORLEY
--- NOTE | 2022-09-19 14:26 | PN_ITS ---
Subjective Subjective Patient seen and examined. She had no complaints. She was on BiPAP but she was able to communicate. She denied any headache, fever, chills or any other symptoms. Review of systems of otherwise negative. Objective Data Objective Data Vital Signs: Vital Signs Temp Pulse Resp BP Pulse Ox O2 Del Method O2 Flow Rate 97.6 F L 72 16 165/91 H 93 Room Air 2 09/19/22 06:25 09/19/22 06:25 09/19/22 06:25 09/19/22 06:25 09/19/22 10:26 09/19/22 06:35 09/18/22 14:55 Oxygen Flow Rate (L/min) 2 Oxygen Delivery Method Room Air Weight: 186 lb 1.122 oz Body Mass Index (BMI) 26.6 Intake & Output: Intake and Output for Last 24 Hours 09/17/22 09/18/22 09/19/22 23:59 23:59 23:59 Intake Total 900 / 900 0 / 0 Balance 900 / 900 0 / 0 Lab / Micro Data Result Diagrams: 09/19/22 05:48 09/19/22 05:48 Labs: Laboratory Results - last 24 hr 09/18/22 15:57: POC Glucose 168 H 09/18/22 21:32: POC Glucose 155 H 09/19/22 05:48: Sodium 137, Potassium 3.6, Chloride 103, Carbon Dioxide 27.0, Anion Gap 7, BUN 12, Creatinine 0.94, Estim Creat Clear Calc 46.46, Est GFR (MDRD) Af Amer 73, Est GFR (MDRD) Non-Af 60, BUN/Creatinine Ratio 12.8, Glucose 154 H, Calcium 9.2, Triglycerides 117, Cholesterol 114, LDL Cholesterol 50, VLDL Cholesterol 23, HDL Cholesterol 41 09/19/22 05:48: WBC 7.5, RBC 4.03 L, Hgb 12.1, Hct 36.8 L, MCV 91.3, MCH 30.0, MCHC 32.9, RDW Std Deviation 41.7, RDW Coeff of Marcio 12.6, Plt Count 244, MPV 9.4, Immature Gran % (Auto) 0.500, Neut % (Auto) 59.7, Lymph % (Auto) 25.5, [place] % (Auto) 10.5 H, Eos % (Auto) 2.9, Baso % (Auto) 0.9, Absolute Neuts (auto) 4.5, Absolute Lymphs (auto) 1.92, Nucleated RBC % 0 09/19/22 06:08: POC Glucose 146 H 09/19/22 11:34: POC Glucose 202 H Micro: Microbiology 09/16/22 17:07 Blood Culture (Wb) - Line Draw Blood Culture - Preliminary No growth in 48 hours. 09/16/22 15:40 Blood Culture (Wb) - Anticubital Right Blood Culture - Preliminary Possible Fungus 09/16/22 15:53 Urine Catheter - Catheter Urine Culture - Final Escherichia coli Radiography Diagnostic Testing: Radiology Impression Echocardiogram 09/18/22 13:33 Interpretation Summary Normal LV size. The estimated ejection fraction is 55 %. No regional wall motion abnormalities noted. Stage 1 diastolic dysfunction. There is moderate to severe mitral annular calcification. There is Mild focal anterior mitral annular calcification. Ordering Physician: Isa Verma Referring Physician: Mello Fowler Performed By: Savannah Bangura RCS Rhythm Strip Rhythm Strip: Sinus Rhythm Rate: 73 Ectopy: None Physical Exam Const alert, no apparent distress, healthy appearing and well nourished Constitutional Narrative: baseline confusion, but can answer some questions General Appearance: cooperative HEENT normocephalic, head/scalp atraumatic, moist oral mucous membranes and oropharynx normal Eyes PERRL, EOMs intact bilaterally and conjunctivae normal Neck no lymphadenopathy, supple, no JVD and no carotid bruits Resp normal respiratory effort, no retractions, no use of accessory muscles and clear to auscultation bilaterally Resp Narrative: Mildly diminished breath sounds bibasilarly. No wheezes or crackles. on BIPAP Auscultation: Negative for rales, rhonchi or wheezes Cardio regular rate, regular rhythm, S1 normal heart sound, S2 normal heart sound, no murmurs, no rub, no gallops and no clicks GI normal to inspection, nondistended, normoactive bowel sounds, soft to palpation, non-tender and non-distended Extremity normal capillary refill and no clubbing, cyanosis or edema Extremity Narrative: 2+ pedal pulses, 2+ radial pulses Skin no wounds, skin turgor normal, no jaundice, no petechiae and no mottling General Skin Exam: no breakdown Neuro CN's II-XII intact bilaterally, no focal motor deficits and no sensory deficits noted Sensorium / Orientation: awake and alert Motor Exam: strength 5/5 throughout Psych Negative for affect normal Assessment & Plan Assessment/Plan (1) Hyperglycemia: (2) Mental status alteration: (3) Falls: (4) CVA (cerebral vascular accident): PLAN: Plan #Acute CVA * She was admitted with a complaint of altered mental status. CT of the brain showed no acute intracranial pathology. 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 * Patient already on Plavix and high intensity statin. We will add on aspirin. * Neurology reviewed patient and recommended that in light of patient's worsening dementia, there was not much to offer in terms of any additional therapy for the stroke. Neurology recommended that a goals of care discussion should be had with the family. I did speak to patient's Mr. Mat Velasquez today who said his goal was to take her home and take care of her at home. He was understanding of that the fact that her dementia was worsening and his goal was to make her comfortable and take care of her at home. * She did have 2D echo back in June 2022 which showed a tiny PFO. This will warrant aspirin being added on. * PT/OT on board. fall precautions * #Acute metabolic encephalopathy * thought to be due to worsening dementia. However, acute CVA may also be playing a role in light of the recent MRI dingdings * PT/OT on board. * Fall precautions. * she is back to her baseline and able to communicate and answer questions. * #Type 2 diabetes mellitus * Was found to be hyperglycemic during this admission. * Of note patient was hypoglycemic on presentation when she was admitted and evaluated in June 2022. O * n account of the hypoglycemia her glipizide was discontinued on admission. * Her A1c was also 6.1 at that time. * A1c for this admission pending. Currently on metformin. * We will adjust dose of medication as needed. * #GERD: On PPI #Hypertension: Hold BP meds to allow for permissive hypertension #Hyperlipidemia: On high intensity statin #Dementia: On memantine #Restless leg syndrome: On ropinirole DVT prophylaxis: Lovenox Disposition: Anticipate discharge home by tomorrow depending on how she is doing with therapy. Charges/Coding Visit Charges Inpatient E&M: 32255 Subs Hosp L2
[2022-09-19] MEDS: Memantine Hydrochloride 10 MG Tablet PO ×2 (14:38→21:24)
--- NOTE | 2022-09-19 14:45 | CHAPLAIN ---
Type of Pastoral Visit ___ Initial Visit _x__ Follow-up Visit ___ On-call Visit ___ General Patient Visit ___ Spiritual Assessment ___ Family Conference ___ Bereavement ___ Rapid Response ___ Code Blue ___ Other (describe below) Pastoral Care Referral From ___ Patient _x__ Family ___ Nurse ___ Physician ___ Entry Level Truck Driver ___ Licensed Plumber ___ Other (describe below) Sacrament/Intervention _x__ Active listening ___ Anointing ___ Islam ___ Bereavement ___ Communion ___ Юлия exploration ___ ___ Life review _x__ Prayer ___ Reconciliation ___ Sacrament of Sick _x_ Supportive presence ___ Wedding ___ Other (describe below) Pastoral Comments follow up and patient today is awake and sitting up in chair; spouse is with her feeding her lunch; patient is able to answer simple questions but does not engage in conversation; spouse continues to answer and give update which is some improvement of the situation; both welcome presence and prayer
[2022-09-19 17:31] LABS: Bedside Glucose 263 mg/dL (74-106)
--- NOTE | 2022-09-19 17:43 | EKG12_ITS ---
Test Reason : Blood Pressure : / mmHG Vent. Rate : 115 BPM Atrial Rate : 115 BPM P-R Int : 200 ms QRS Dur : 060 ms QT Int : 318 ms P-R-T Axes : 070 -23 066 degrees QTc Int : 439 ms Sinus tachycardia Leftward axis Confirmed by RICKIE CANTOR, TONIO ([id number]), rewrite editor JUDD UMANA ([id number]) on 09/21/2022 9:10:01 AM Referred By: MALLORY Confirmed By:TONIO DAMIAN MD
[2022-09-19] MEDS: Pramipexole Di-HCl 0.25 MG Tablet PO (21:22)
[2022-09-19] MEDS: Donepezil HCl 10 MG Tablet PO (21:22)
[2022-09-19] MEDS: Atorvastatin Calcium 80 MG Tablet PO (21:22)
[2022-09-19] MEDS: MELATONIN 10 MG TABLET PO (21:22)
[2022-09-19] MEDS: Erythromycin Base 1 OPTH.TUBE 1 APPLIC EACH EYE (21:35)
[2022-09-19] MEDS: Insulin Glargine-YFGN 100 UNIT/ML Pen SC (23:09)
[2022-09-19 23:51] LABS: Bedside Glucose 333 mg/dL (74-106)
[2022-09-20] VITALS (7 sets, daily range): BP systolic 112–148; BP diastolic 64–78; PULSE 62–87; RESP 12–16; TEMP 36.4–36.6; O2SAT 92–97; BMI 26.6
[2022-09-20 04:40] LABS: Absolute Lymphocyte Count 2.55 X10^3/uL (0.83-4.51); Absolute Neutrophil Count 6.8 X10^3/uL (2.0-7.7); Basophil# 0.08 X10^3/uL; Basophil% 0.7 % (0-1); Eosinophil# 0.16 X10^3/uL; Eosinophils% 1.5 % (0-5); Hematocrit 34.4 % (37-47); Hemoglobin 11.3 g/dL (12.0-15.0); Lymphocyte # 2.55 X10^3/ul (0.83-4.51); Lymphocyte % 23.9 % (19-41); Mean Corp Hgb Conc 32.8 g/dL (32-36); Mean Corpuscular Hgb 29.8 pg (27.0-32.0); Mean Corpuscular Volume 90.8 fL (81-99); Mean Platelet Vol. 10.3 fl (6.2-12.0); Monocyte# 1.04 X10^3/uL; Monocyte% 9.7 % (0-10); NRBC Flagged by Analyzer 0 % (0-5); Neutrophil # 6.82 X10^3/uL (2.7-7.7); Neutrophil % 63.8 % (47-70); Platelet Count 237 K/mm3 (150-450); RBC Distribution Width CV 12.8 % (11.6-14.6); RBC Distribution Width SD 42.7 fl (35.1-43.9); Red Blood Count 3.79 M/mm3 (4.2-5.4); White Blood Count 10.7 K/mm3 (4.4-11.0)
[2022-09-20 05:06] LABS: Anion Gap 8 (5-15); BUN 26 mg/dL (7-18); Calcium,Total 9.1 mg/dL (8.5-10.1); Chloride 102 mmol/L (98-107); Creatinine, Serum 1.24 mg/dL (0.55-1.02); EST Glomerular Filtration Rate 44 mL/min (>60); Est Glom Filt Rate - Afr Amer 53 mL/min (>60); Estimated Creatinine Clearance 35.22 ml/min; Glucose 253 mg/dL (74-106); Potassium 3.6 mmol/L (3.5-5.1); Sodium Level 135 mmol/L (136-145)
[2022-09-20] MEDS: Insulin Lispro 100 UNIT/ML INSULN.PEN SC ×3 (07:00→16:26)
[2022-09-20 07:20] LABS: Bedside Glucose 216 mg/dL (74-106)
[2022-09-20] MEDS: Aspirin 81 MG TAB.CHEW PO (09:35)
[2022-09-20] MEDS: Multivitamins,Ther W-Minerals Tablet 1 TABLET PO ×2 (09:36→16:27)
[2022-09-20] MEDS: Enoxaparin 40 MG/0.4 ML Syringe SC (09:36)
[2022-09-20] MEDS: Glucerna Shake 120 ML LIQUID PO ×2 (09:36→16:27)
[2022-09-20] MEDS: Creon 12,000 unit DR CapSULE 6 CAP PO ×3 (09:36→16:27)
[2022-09-20] MEDS: Ramipril 5 MG Capsule PO (09:36)
[2022-09-20] MEDS: Clopidogrel Bisulfate 75 MG Tablet PO (09:37)
[2022-09-20] MEDS: Cholecalciferol (VIT D3) 25 MCG TABLET (1,000 UNITS) PO (09:37)
[2022-09-20] MEDS: 0.9% Normal Saline 1,000 ML 100 ML IV (09:37)
[2022-09-20] MEDS: Pantoprazole Sodium 40 MG Tablet PO (09:37)
[2022-09-20] MEDS: 0.9% Saline Lock 10 ML Syringe IV (09:37)
[2022-09-20] MEDS: Memantine Hydrochloride 10 MG Tablet PO (09:37)
[2022-09-20 12:11] LABS: Bedside Glucose 279 mg/dL (74-106)
--- NOTE | 2022-09-20 15:47 | CASEMGMT ---
Addendum entered by Nakia Gu 09/20/22 16:06: ALEKSANDAR LAWRENCE received call back from [facility] and they are able to accept patient with start of care planned for Sunday. ALEKSANDAR LAWRENCE updated , he had no further questions or concerns at this time. Original Note: ALEKSANDAR LAWRENCE in to discuss discharge planning with . ALEKSANDAR LAWRENCE reviewed therapy notes with . Patient was able to ambulate stairs with moderate assistance. feel comfortable with patient discharging to home. Discussed HHC with patient. prefers [facility] and declined list of [facility] agencies. ALEKSANDAR LAWRENCE made referral to [facility] awaiting acceptance.
--- NOTE | 2022-09-20 16:43 | DS.PCM_ITS ---
Providers Date of Admission: 09/16/22 Date of Discharge: 09/20/22 Primary Care Physician: Dr. Mello Fowler, DO Diagnosis Discharge Diagnosis (1) Hyperglycemia: Status: Acute Code(s): R73.9 - Hyperglycemia, unspecified (2) Mental status alteration: Status: Acute Code(s): R41.82 - Altered mental status, unspecified (3) Falls: Status: Acute Code(s): W19.XXXA - Unspecified fall, initial encounter (4) CVA (cerebral vascular accident): Status: Chronic Code(s): I63.9 - Cerebral infarction, unspecified Plan #Acute CVA * She was admitted with a complaint of altered mental status. CT of the brain showed no acute intracranial pathology. 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 * Patient already on Plavix and high intensity statin. We will add on aspirin. * Neurology reviewed patient and recommended that in light of patient's worsening dementia, there was not much to offer in terms of any additional therapy for the stroke. Neurology recommended that a goals of care discussion should be had with the family. I did speak to patient's Mr. Mat Velasquez today who said his goal was to take her home and take care of her at home. He was understanding of that the fact that her dementia was worsening and his goal was to make her comfortable and take care of her at home. * She did have 2D echo back in June 2022 which showed a tiny PFO. This will warrant aspirin being added on. * PT/OT on board. fall precautions * #Acute metabolic encephalopathy * thought to be due to worsening dementia. However, acute CVA may also be playing a role in light of the recent MRI dingdings * PT/OT on board. * Fall precautions. * she is back to her baseline and able to communicate and answer questions. * #Type 2 diabetes mellitus * Was found to be hyperglycemic during this admission. * Of note patient was hypoglycemic on presentation when she was admitted and evaluated in June 2022. O * n account of the hypoglycemia her glipizide was discontinued on admission. * Her A1c was also 6.1 at that time. * A1c for this admission pending. Currently on metformin. * We will adjust dose of medication as needed. * #GERD: On PPI #Hypertension: Hold BP meds to allow for permissive hypertension #Hyperlipidemia: On high intensity statin #Dementia: On memantine #Restless leg syndrome: On ropinirole DVT prophylaxis: Lovenox Disposition: Anticipate discharge home by tomorrow depending on how she is doing with therapy. Medications at Discharge Home Medications omeprazole 40 mg capsule,delayed release 40 mg PO DAILY GERD 01/06/14 cholecalciferol (vitamin D3) 25 mcg (1,000 unit) capsule 1,000 unit PO DAILY supplement 08/28/16 donepezil 5 mg tablet 10 mg PO QHS memory 08/28/16 metformin 500 mg tablet 500 mg PO DAILY blood sugar 08/28/16 cinnamon bark 500 mg capsule 1,000 mg PO DAILY supplement 11/30/17 erythromycin 5 mg/gram (0.5 %) eye ointment 1 applicatio EACH EYE DAILY eye ointment 11/30/17 atorvastatin 80 mg tablet 80 mg PO QHS #30 tabs 12/03/17 clopidogrel 75 mg tablet 75 mg PO DAILY #30 tabs 12/03/17 fisjqube-ads-ayagk acid 0.4 mg-lycopene 300 mcg-lutein 250 mcg tablet 1 ea PO BID supplement 12/03/18 naproxen sodium 220 mg capsule 220 mg PO BID pain 12/03/18 Vitamin C 1 tab PO BID 06/08/19 memantine 10 mg tablet 10 mg PO BID Check with primary doctor 09/11/21 acetaminophen 500 mg tablet 1,000 mg PO Q8H PRN PRN Pain Score 1-10/Temp > 100.7 F #0 tabs 09/12/21 ramipril 5 mg capsule 5 mg PO DAILY Check with primary doctor 01/11/22 ropinirole 0.25 mg tablet 0.5 mg PO QHS Check with primary doctor 01/11/22 melatonin 10 mg tablet 10 mg PO QHS 06/14/22 zkcbkv-xdhxycrz-zajplen 36,000-114,000-180,000 unit capsule,delay rel (Creon) See Rx Instructions PO .COMPLEX #320 caps 08/28/22 modafinil 100 mg tablet 100 mg PO DAILY Check with primary doctor 09/16/22 aspirin 81 mg chewable tablet 81 mg PO BREAKFAST #30 tabs 03/08/23 Hospital Course Operations None Summary of Care Provided Minutes Spent on Discharge: 50 Hospital Course: Patient is an 87-year-old female with a past medical history as outlined was admitted through the ED on 09/16/2022 with a complaint of altered mental status. Patient has significant baseline dementia but is usually alert and oriented to self. noted that she was getting more confused and slower than she was at her baseline and that had to falls in the week prior to admission. Both with had happened within a 24-hour period. Patient had recently been admitted in June 2022 with concerns for stroke and was found to be hypoglycemic. Her glipizide was discontinued at that time. was worried that her blood sugars have been running high at home. CT of the brain on admission showed no acute intracranial pathology and chest x-ray showed no evidence of infection. Urinalysis also showed no evidence of infection. She was admitted and managed for altered mental status. She did have an MRI of the brain which showed acute lacunar ischemic infarct in the medial aspect of the right posterior ventricular matter with evidence of old infarcts as well. Aspirin was added on her to have Plavix and high intensity statin. She had had a 2D echo in June 2022 and so repeat was not done this time. She had also had a CTA head and neck in May which was negative so this was also not repeated. Neurology was consulted and reviewed patient and felt in light of her worsening dementia, there was no further management that could be offered and recommended that goals of care discussion were had with her . I did discuss goals of care with patient's and he stated that he was aware that patient was declining from his dementia and his goal was to maintain a quality of life. He wanted to take him home where he will care for here on his own. Patient was discharged home on 09/20/2022. She was discharged with home health care and she is to follow-up with her primary care doctor within 1 to 2 weeks. Patient seen and examined prior to discharge. She had no active complaints. She was confused but could communicate. Her creatinine was noted to have trended up slightly to 1.28. She was hydrated with IV fluids normal saline and encouraged to hydrate well orally. She is to follow-up with her primary care doctor for repeat BMP within 2-3 days to monitor her creatinine. Physical Exam Const alert, no apparent distress, healthy appearing and well nourished Constitutional Narrative: baseline confusion, but can answer some questions General Appearance: cooperative and comfortable Orientation / Consciousness: awake Exam Limitations: altered mental status HEENT normocephalic, head/scalp atraumatic, hearing grossly normal bilaterally, moist oral mucous membranes and oropharynx normal Mouth: oral and palatal mucosa normal Eyes PERRL, EOMs intact bilaterally and conjunctivae normal Eyes Narrative: No scleral icterus Neck no lymphadenopathy, supple, no JVD and no carotid bruits Neck Narrative: Trachea midline Resp normal respiratory effort, no retractions, no use of accessory muscles and clear to auscultation bilaterally Auscultation: Negative for rales, rhonchi or wheezes Cardio regular rate, regular rhythm, S1 normal heart sound, S2 normal heart sound, no murmurs, no rub, no gallops and no clicks GI normal to inspection, nondistended, normoactive bowel sounds, soft to palpation, non-tender and non-distended Extremity normal capillary refill and no clubbing, cyanosis or edema Extremity Narrative: 2+ pedal pulses, 2+ radial pulses Skin no wounds, skin turgor normal, no jaundice, no petechiae and no mottling General Skin Exam: no breakdown Neuro CN's II-XII intact bilaterally, no focal motor deficits and no sensory deficits noted Sensorium / Orientation: awake and alert Speech: speech normal Motor Exam: strength 5/5 throughout Psych Negative for affect normal Appearance: appropriate Weight / BMI Weight Weight: 186 lb 1.122 oz Body Mass Index (BMI) 26.6 ABG / Lab / Microbiology Data Result Diagrams: 09/20/22 04:01 09/20/22 04:01 Laboratory: Laboratory Results - last 24 hr 09/19/22 17:03: POC Glucose 263 H 09/19/22 23:07: POC Glucose 333 H 09/20/22 04:01: WBC 10.7, RBC 3.79 L, Hgb 11.3 L, Hct 34.4 L, MCV 90.8, MCH 29.8, MCHC 32.8, RDW Std Deviation 42.7, RDW Coeff of Marcio 12.8, Plt Count 237, MPV 10.3, Immature Gran % (Auto) 0.400, Neut % (Auto) 63.8, Lymph % (Auto) 23.9, Harris % (Auto) 9.7, Eos % (Auto) 1.5, Baso % (Auto) 0.7, Absolute Neuts (auto) 6.8, Absolute Lymphs (auto) 2.55, Nucleated RBC % 0 09/20/22 04:01: Sodium 135 L, Potassium 3.6, Chloride 102, Carbon Dioxide 25.0, Anion Gap 8, BUN 26 H, Creatinine 1.24 H, Estim Creat Clear Calc 35.22, Est GFR (MDRD) Af Amer 53 L, Est GFR (MDRD) Non-Af 44 L, BUN/Creatinine Ratio 21.0 H, Glucose 253 H, Calcium 9.1 09/20/22 06:58: POC Glucose 216 H 09/20/22 11:44: POC Glucose 279 H Microbiology: Microbiology 09/16/22 17:07 Blood Culture (Wb) - Line Draw Blood Culture - Preliminary No growth in 48 hours. 09/16/22 15:40 Blood Culture (Wb) - Anticubital Right Blood Culture - Preliminary Possible Fungus 09/16/22 15:53 Urine Catheter - Catheter Urine Culture - Final Escherichia coli D/C Instructions Discharge Diet: Low fat / Low cholesterol Discharge Activity: Return to Normal Activity Weight Bearing Status: Weight bearing as tolerated Call your doctor if you observe: Fever of 101 or Higher, Shortness of breath and Dizziness Meaningful Use Info Meaningful Use Diagnoses (Choose all that apply): Ischemic CVA CVA Therapy Assessed for PT,OT and/or ST?: Yes Ischemic Stroke Antithrombotic order at d/c?: Yes Dx of Atrial fib/flutter?: No Statins at discharge?: Yes Primary Dx Acute Ischemic CVA?: Yes IV tPA ordered during stay?: No Reason IV t-PA not ordered: Medical Contraindication and Treatment not Indicated Discharge Plan Admission Admit Date/Time: 09/16/22 19:30 Primary Reason for Your Visit: acute CVA Attending Provider: Isa Verma Primary Care Provider: Mello Fowler Consulting Providers: Estrella Buckner ; Maria D Chawla Instructions Patient Instructions: Discharge Instructions for Stroke Discharge Orders/Prescriptions Prescriptions: New aspirin 81 mg Tablet,Chewable 81 mg PO BREAKFAST Qty: 30 1RF Continued ramipril 5 mg capsule 5 mg PO DAILY ropinirole 0.25 mg tablet 0.5 mg PO QHS Rx Instructions: administer 1-3 hours before bedtime omeprazole 40 MG capsule 40 mg PO DAILY Label Comments: STOMACH metformin 500 MG tablet 500 mg PO DAILY donepezil 5 MG tablet 10 mg PO QHS cholecalciferol (vitamin D3) 1,000 UNIT capsule 1,000 unit PO DAILY erythromycin 5 MG/GRAM ointment 1 applicatio EACH EYE DAILY Label Comments: Rx Instructions: it is to go around eye not in the eye per cinnamon bark 500 MG capsule 1,000 mg PO DAILY atorvastatin 80 MG tablet 80 mg PO QHS Qty: 30 0RF clopidogrel 75 MG tablet 75 mg PO DAILY Qty: 30 0RF Hold Instructions: Resume on 09/16/21. nuqknryy-iyg-TO-lycopen-lutein 1 EACH tablet 1 ea PO BID naproxen sodium 220 MG capsule 220 mg PO BID Vitamin C 1 tab PO BID memantine 10 mg tablet 10 mg PO BID Label Comments: TAKE 1 TABLET BY MOUTH TWICE DAILY acetaminophen 500 mg Tablet 1,000 mg PO Q8H PRN PRN (Reason: Pain Score 1-10/Temp > 100.7 F) Qty: 0 0RF melatonin 10 mg Tablet 10 mg PO QHS modafinil 100 mg Tablet 100 mg PO DAILY Creon 36,000-114,000- 180,000 unit capsule,delayed release(DR/EC) See Rx Instructions PO .COMPLEX Qty: 320 0RF Rx Instructions: take 1-2 with snacks and 2-3 with meals Referrals / Follow Up: Mello Fowler DO [Primary Care Provider] - Within 2 Weeks Disposition Disposition (needs filled in before D/C Order can be placed): Home Health Service Charges/Coding Visit Charges Inpatient E&M: 32331 Disch Hosp >30min
--- NOTE | 2022-09-20 16:57 | DCINST_ITS ---
Discharge Instructions Diet Discharge Diet: Low fat / Low cholesterol Activity Discharge Activity: Return to Normal Activity Weight Bearing Status: Weight bearing as tolerated Dressing / Incision Call your doctor if you observe: Fever of 101 or Higher, Shortness of breath and Dizziness Follow Up Care Test Results: Test results from this visit will be discussed in further detail at your follow- up appointment, if applicable. Discharge Plan Admission Admit Date/Time: 09/16/22 19:30 Primary Reason for Your Visit: acute CVA Attending Provider: Isa Verma Primary Care Provider: Mello Fowler Consulting Providers: Estrella Buckner ; Maria D Chawla Instructions Patient Instructions: Discharge Instructions for Stroke Discharge Orders/Prescriptions Prescriptions: New aspirin 81 mg Tablet,Chewable 81 mg PO BREAKFAST Qty: 30 1RF Continued ramipril 5 mg capsule 5 mg PO DAILY ropinirole 0.25 mg tablet 0.5 mg PO QHS Rx Instructions: administer 1-3 hours before bedtime omeprazole 40 MG capsule 40 mg PO DAILY Label Comments: STOMACH metformin 500 MG tablet 500 mg PO DAILY donepezil 5 MG tablet 10 mg PO QHS cholecalciferol (vitamin D3) 1,000 UNIT capsule 1,000 unit PO DAILY erythromycin 5 MG/GRAM ointment 1 applicatio EACH EYE DAILY Label Comments: Rx Instructions: it is to go around eye not in the eye per cinnamon bark 500 MG capsule 1,000 mg PO DAILY atorvastatin 80 MG tablet 80 mg PO QHS Qty: 30 0RF clopidogrel 75 MG tablet 75 mg PO DAILY Qty: 30 0RF Hold Instructions: Resume on 09/16/21. alvzaiim-omh-XT-lycopen-lutein 1 EACH tablet 1 ea PO BID naproxen sodium 220 MG capsule 220 mg PO BID Vitamin C 1 tab PO BID memantine 10 mg tablet 10 mg PO BID Label Comments: TAKE 1 TABLET BY MOUTH TWICE DAILY acetaminophen 500 mg Tablet 1,000 mg PO Q8H PRN PRN (Reason: Pain Score 1-10/Temp > 100.7 F) Qty: 0 0RF melatonin 10 mg Tablet 10 mg PO QHS modafinil 100 mg Tablet 100 mg PO DAILY Creon 36,000-114,000- 180,000 unit capsule,delayed release(DR/EC) See Rx Instructions PO .COMPLEX Qty: 320 0RF Rx Instructions: take 1-2 with snacks and 2-3 with meals Referrals / Follow Up: Mello Fowler DO [Primary Care Provider] - Within 2 Weeks Disposition Disposition (needs filled in before D/C Order can be placed): Home Health Service
[2022-09-20 17:01] LABS: Bedside Glucose 240 mg/dL (74-106)
== END 2022-09-20 17:51 | disposition home health service (06) | DRG 64 ==
LOC: ED 18:52 → MS3 19:51 → PCU 09-18 14:47
PROVIDERS: Internal Medicine; Admitting Provider Internal Medicine; Emergency Provider Emergency Medicine; PCP Family Medicine; Visit Provider Student in an Organized Health Care Education/Training Program
DX: I63.81 Other cerebral infarction due to occlusion or stenosis of small artery (principal); G93.41 Metabolic encephalopathy; R47.01 Aphasia; D63.1 Anemia in chronic kidney disease; K86.89 Other specified diseases of pancreas; F02.80 Dementia in other diseases classified elsewhere, unspecified severity, without behavioral disturbance, psychotic disturbance, mood disturbance, and anxiety; E11.22 Type 2 diabetes mellitus with diabetic chronic kidney disease; G30.9 Alzheimer's disease, unspecified; E11.65 Type 2 diabetes mellitus with hyperglycemia; N18.30 Chronic kidney disease, stage 3 unspecified; K21.9 Gastro-esophageal reflux disease without esophagitis; G25.81 Restless legs syndrome; I12.9 Hypertensive chronic kidney disease with stage 1 through stage 4 chronic kidney disease, or unspecified chronic kidney disease; E78.5 Hyperlipidemia, unspecified; R29.706 NIHSS score 6; R29.6 Repeated falls; Z66 Do not resuscitate; Z79.84 Long term (current) use of oral hypoglycemic drugs; Z79.02 Long term (current) use of antithrombotics/antiplatelets; Z79.899 Other long term (current) drug therapy; Z86.73 Personal history of transient ischemic attack (TIA), and cerebral infarction without residual deficits
CPT/HCPCS: 36415; 70450; 70551; 71045; 80048; 80053; 80061; 81001; 82009; 82607; 82746; 82962; 83605; 83735; 84100; 84145; 84443; 85025; 85610; 85652; 86140; 87040; 87077; 87086; 87088; 87186; 92526; 92610; 93005; 93306; 94762; 97110; 97112; 97116; 97163; 97166; 97530; 97535; 99285; J7030; P9612; A4216

== ENCOUNTER → 2022-10-23 | Outpatient (CLI) | payer MEDICARE, OTHER, SELFPAY ==
[2022-10-27 20:12] LABS: Calprotectin, Stool <16 ug/g (0-120)
[2022-10-30 19:44] LABS: Pancreatic Elastase, Fecal < 50 (>200)
== END | disposition home or self-care (01) ==
PROVIDERS: PCP Family Medicine; Referring Provider Internal Medicine Gastroenterology; Visit Provider Internal Medicine Gastroenterology
DX: R19.7 Diarrhea, unspecified (principal); K58.9 Irritable bowel syndrome, unspecified
CPT/HCPCS: 36415; 82653; 83630; 83993; 87177; 87209; 87329; 87493

== ENCOUNTER 2023-01-12 11:48 | Inpatient (IN) | payer MEDICARE, OTHER, SELFPAY ==
[2023-01-12] VITALS (7 sets, daily range): BP systolic 99–135; BP diastolic 64–81; PULSE 72–80; RESP 16–20; TEMP 36.2–36.8; O2SAT 94–98; BMI 22.8; BMI 23.2
--- NOTE | 2023-01-12 12:12 | EKG12_ITS ---
Test Reason : GI BLEED Blood Pressure : / mmHG Vent. Rate : 070 BPM Atrial Rate : 070 BPM P-R Int : 222 ms QRS Dur : 066 ms QT Int : 390 ms P-R-T Axes : 067 -20 048 degrees QTc Int : 421 ms Sinus rhythm with 1st degree A-V block Low voltage QRS Borderline ECG Confirmed by ADAIR CANTOR, CRISTIAN ([id number]), city editor JUDD UMANA ([id number]) on 01/15/2023 12:44:31 PM Referred By: Confirmed By:CRISTIAN BORRERO MD
[2023-01-12 12:23] LABS: Absolute Lymphocyte Count 2.16 X10^3/uL (0.83-4.51); Absolute Neutrophil Count 4.9 X10^3/uL (2.0-7.7); Basophil# 0.08 X10^3/uL; Eosinophil# 0.16 X10^3/uL; Hemoglobin 10.1 g/dL (12.0-15.0); Lymphocyte # 2.16 X10^3/ul (0.83-4.51); Lymphocyte % 27.4 % (19-41); Mean Corp Hgb Conc 31.6 g/dL (32-36); Mean Corpuscular Hgb 30.2 pg (27.0-32.0); Mean Corpuscular Volume 95.8 fL (81-99); Monocyte# 0.56 X10^3/uL; Monocyte% 7.1 % (0-10); NRBC Flagged by Analyzer 0 % (0-5); Neutrophil # 4.85 X10^3/uL (2.7-7.7); Neutrophil % 61.7 % (47-70); Platelet Count 225 K/mm3 (150-450); RBC Distribution Width CV 13.4 % (11.6-14.6); RBC Distribution Width SD 47.6 fl (35.1-43.9); Red Blood Count 3.34 M/mm3 (4.2-5.4); White Blood Count 7.9 K/mm3 (4.4-11.0)
--- NOTE | 2023-01-12 12:23 | CT_ITS ---
STUDY: CT ABDOMEN AND PELVIS WITHOUT CONTRAST REASON FOR EXAM: Female, 87 years old. Rectal bleed, diarrhea -- oral and IV RADIATION DOSAGE (If Supplied By Facility): CTDIvol = ( 13.90 ) mGy, DLP = ( 884.80 ) mGycm TECHNIQUE: Transaxial images were obtained from the dome of the diaphragm to the symphysis pubis without oral contrast, and without intravenous contrast. Sagittal and coronal images were reconstructed. Slightly limited examination due to patient motion artifacts. Individualized dose optimization techniques were used for this CT. COMPARISON: Comparison is made with prior study dated August 23, 2022. FINDINGS: Stable mild increased markings at the lung bases suggestive of scarring. Coronary artery calcification. Calcification of the mitral valve annulus. Normal liver. Normal gallbladder and extrahepatic biliary system. Normal spleen. Normal pancreas. Normal bilateral adrenal glands. Normal right kidney. Normal left kidney. Normal visualized stomach. Normal small intestine. There are multiple colonic diverticula consistent with diverticulosis. The appendix is visualized and appears normal. There is diffuse atherosclerotic calcification of the abdominal aorta and its major visceral branches, without a demonstrated aneurysm. Normal inferior vena cava. Normal retroperitoneum. Normal urinary bladder. Calcified fibroid uterus. Normal abdominal wall. There are diffuse degenerative changes of the visualized lumbar spine. Stable anterolisthesis of L4 on L5. CT/Abdomen/Pelvis without Cont IMPRESSION: Sigmoid diverticulosis. Calcified fibroid uterus. Electronically Signed: Alex Lobato MD at 15:08 EDT ,
--- NOTE | 2023-01-12 12:24 | ED.VIS.GI ---
HPI HPI - GI History of Present Illness Chief Complaint: GI Bleed Informant: spouse/S.O. Narrative Narrative: History limited from patient due to Alzheimer's history. Baseline of person. Here with spouse coming from home by EMS due to large amount of blood from the rectum dark in color. Per spouse patient mildly weaker since yesterday today intermittent she came out of the bedroom sat in the chair noted blood on the chair he put her on the commode there was a large amount of dark blood. She is on aspirin and Plavix for stroke in September. 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 From records last seen a week ago. Patient has not had a recent colonoscopy in years per spouse. Patient can ambulate at times without assistance but does have a cane and walker. Patient has not been transfused in the past. [facility] Medical History (Updated 01/12/23 @ 16:15 by Evelyn Díaz) Alzheimer disease AMS (altered mental status) Anemia due to stage 3 chronic kidney disease Arthritis Bowel incontinence Chronic diarrhea CPAP (continuous positive airway pressure) dependence CVA (cerebral vascular accident) Dementia Diabetes DM (diabetes mellitus), type 2 Falls GERD (gastroesophageal reflux disease) GERD (gastroesophageal reflux disease) Hearing loss, left Hearing loss, right History of Sjogren's disease History of stroke Loose stools Mental status alteration Nausea and vomiting in adult Non-smoker Noninfective gastroenteritis and colitis, unspecified RLS (restless legs syndrome) TIA (transient ischemic attack) Type 2 diabetes mellitus without complications Varicose veins of leg with edema Home Medications omeprazole 40 mg capsule,delayed release 40 mg PO DAILY GERD 01/06/14 [History Last Taken 01/11/23] cholecalciferol (vitamin D3) 25 mcg (1,000 unit) capsule 1,000 unit PO DAILY supplement 08/28/16 [History Last Taken 01/11/23] donepezil 5 mg tablet 10 mg PO QHS memory 08/28/16 [History Last Taken 01/11/23] metformin 500 mg tablet 500 mg PO DAILY blood sugar 08/28/16 [History Last Taken 01/11/23] cinnamon bark 500 mg capsule 1,000 mg PO DAILY supplement 11/30/17 [History Last Taken 01/11/23] atorvastatin 80 mg tablet 80 mg PO QHS #30 tabs 12/03/17 [Rx Last Taken 01/11/23] clopidogrel 75 mg tablet 75 mg PO DAILY #30 tabs 12/03/17 [Rx Last Taken 01/11/23] gxwaviiw-hbv-uthjq acid 0.4 mg-lycopene 300 mcg-lutein 250 mcg tablet 1 ea PO BID supplement 12/03/18 [History Last Taken 01/11/23] naproxen sodium 220 mg capsule 220 mg PO BID pain 12/03/18 [History Last Taken 01/11/23] Vitamin C 1 tab PO BID 06/08/19 [History Last Taken 01/11/23] memantine 10 mg tablet 10 mg PO BID Check with primary doctor 09/11/21 [History Last Taken 01/11/23] ramipril 5 mg capsule 5 mg PO DAILY Check with primary doctor 01/11/22 [History Last Taken 01/11/23] ropinirole 0.25 mg tablet 0.5 mg PO QHS Check with primary doctor 01/11/22 [History Last Taken 01/11/23] modafinil 100 mg tablet 200 mg PO DAILY Check with primary doctor 09/16/22 [History Last Taken 01/11/23] aspirin 81 mg chewable tablet 81 mg PO BREAKFAST #30 tabs 09/20/22 [Rx Last Taken 01/11/23] gqzryl-ltxiizyc-iwktjtq 36,000-114,000-180,000 unit capsule,delay rel (Creon) See Rx Instructions PO .COMPLEX #320 caps 10/13/22 [Rx Last Taken 01/12/23] glipizide 5 mg tablet 2.5 mg PO BID DM 01/12/23 [History Last Taken 01/11/23] Allergy/AdvReac Type Severity Reaction Status Date / Time pollen extracts Allergy Intermediate PT UNSURE Verified 01/12/23 14:46 OF REACTION Family History Mother Alzheimer disease Brother Alzheimer disease Aunt Alzheimer disease Father Heart disease Surgical History H/O lumpectomy H/O: hysterectomy History of tonsillectomy Social History household members: spouse Smoking Status: Never smoker alcohol intake: never substance use type: does not use ROS ROS ED ROS Narrative Limited history from spouse due to dementia. Review of Systems ROS Unobtainable: other Gastrointestinal Gastrointestinal: Reports other Details: Rectal bleeding EXAM Physical Exam Const Vital Signs: 01/12/23 11:50 01/12/23 11:53 Temperature 97.2 F L 97.2 F L Temperature Source Temporal Temporal Pulse Rate 72 72 Respiratory Rate 16 16 Blood Pressure 99/72 99/72 Blood Pressure Mean 81 81 Pulse Ox 94 94 Oxygen Delivery Method Room Air Room Air Positive well nourished Constitutional Narrative: Nontoxic General Appearance ED: NAD HEENT Reports moist mucous membranes normocephalic and atraumatic Eyes PERRL and EOMs intact bilaterally; Negative for conjunctivae normal General Eye ED: Yes normal appearance of both eyes and pale conjunctiva Neck no lymphadenopathy and supple General: Negative for tenderness Chest Wall Chest: Negative for tenderness Resp normal respiratory effort and normal air movement Effort and Inspection: symmetric chest movement; Negative for respiratory distress Cardio regular rate, regular rhythm and no murmurs Peripheral Pulses: pulses 2+ throughout GI normal to inspection, nondistended, normoactive bowel sounds and non-tender GI Narrative: Rectal exam nursing present nonthrombosed hemorrhoids on the right lateral aspect. There was blood running down both legs dry. Palpation: Negative for guarding or rebound tenderness present Back/Spine no CVA tenderness and no thoracic nor lumbar tenderness Extremity normal to inspection General Extremety ED: Negative for edema or tenderness General Extremity: Negative for edema Neuro no sensory deficits noted Neuro Narrative: Patient minimal conversation, however baseline per . Sensorium / Orientation: awake Skin no rashes or lesions noted and no wounds MDM MDM MDM Narrative Medical decision making narrative: Interventions / MDM: Differential diagnosis: Rectal bleed, diverticular bleed Diagnosis considered but do not suspect: No abdominal pain for diverticulitis My EKG interpretation: EKG: Sinus rate of 70, first-degree AV block, no ST or T wave changes. Imaging independently reviewed and interpreted by myself: CT abdomen pelvis oral contrast per radiology no acute process. Diverticulosis noted. CT brain: No acute process also read by radiology. External documents reviewed: N/A Test considered but not ordered:N/A ED course: Patient large bowel movement dark blood. Clinically more concern for diverticular bleed. She is on aspirin and Plavix due to her stroke this past September. She sees Dr. Adames for EPI, from records started on doxycycline and budesonide last week. states has been taking it. There was plans for outpatient CT scan along with stool studies. I did discuss with Dr. Adames at 1215, he would like to go ahead and obtain the CT imagings and at the stool studies for further work-up. He will follow as an inpatient for planned admission due to rectal bleeding. 1250: Hemoglobin 10.1 previous was 11. BUN 34 creatinine 1.14. Creatinine 1.14. No additional bloody stools. Reevaluation patient unable to her her name herself, stating this was new. She she is currently drinking oral contrast and not moving all extremities. We will add a CT brain due to her stroke history and September with confusion. CT scans all stable. I discussed with hospitalist Dr. Braswell for admission. Re-evaluation: stable Disposition discussed with patient/family/significant other: Patient and significant other Case discussed with consulting clinician: GI Dr. Adames, hospitalist Dr. Braswell. This note was generated with [employer] dictation software. It may contain incorrect words, spelling, and punctuation that were not noted in checking the note before signing. Lab Data Attestation: I reviewed the patient's lab results. Labs: Laboratory Results - last 24 hr 01/12/23 01/12/23 01/12/23 12:00 12:45 13:57 WBC 7.9 RBC 3.34 L Hgb 10.1 L Hct 32.0 L MCV 95.8 MCH 30.2 MCHC 31.6 L RDW Std Deviation 47.6 H RDW Coeff of Marcio 13.4 Plt Count 225 MPV 11.0 Immature Gran % (Auto) 0.800 Neut % (Auto) 61.7 Lymph % (Auto) 27.4 [place] % (Auto) 7.1 Eos % (Auto) 2.0 Baso % (Auto) 1.0 Absolute Neuts (auto) 4.9 Absolute Lymphs (auto) 2.16 Nucleated RBC % 0 PT Cancelled 14.6 INR Cancelled 1.1 APTT Cancelled 29.4 Sodium 135 L Potassium 4.8 Chloride 103 Carbon Dioxide 30.0 Anion Gap 2 L BUN 34 H Creatinine 1.14 H Estim Creat Clear Calc 38.31 Est GFR (MDRD) Af Amer 58 L Est GFR (MDRD) Non-Af 48 L BUN/Creatinine Ratio 29.8 H Glucose 125 H Calcium 9.1 Total Bilirubin 0.40 AST 30 ALT 26 Alkaline Phosphatase 94 Total Protein 5.9 L Albumin 2.7 L Globulin 3.2 Albumin/Globulin Ratio 0.8 L Urine Color Yellow Urine Clarity Clear Urine pH 5.0 Ur Specific [place] 1.015 Urine Protein Negative Urine Glucose (UA) Normal Urine Ketones Negative Urine Occult Blood Negative Urine Nitrite Negative Urine Bilirubin 1 H Urine Urobilinogen Normal Ur Leukocyte Esterase 25 H Urine RBC 0 SEEN Urine WBC 0-5 SEEN Ur Squamous Epith Cells 0 SEEN Urine Bacteria 0 SEEN Urine Mucus 0 SEEN Blood Type AB POSITIVE Antibody Screen NEGATIVE Radiography Diagnostic Testing: Clinical Impression(s) from Imaging Studies Abdomen/Pelvis CT 01/12/23 12:23 IMPRESSION: Sigmoid diverticulosis. Calcified fibroid uterus. Electronically Signed: Alex Lobato MD at 15:08 EDT , Brain CT 01/12/23 12:53 IMPRESSION: Chronic involutional changes of the brain. Electronically Signed: Alex Lobato MD at 15:09 EDT , Discharge Plan Dx/Rx/DC Orders Clinical Impression: Bright red rectal bleeding, Exocrine pancreatic insufficiency, Anemia, Alzheimer disease, Weakness Disposition Disposition: Acute Care Hospital [facility]
[2023-01-12 12:37] LABS: ALB/GLOB Ratio 0.8 RATIO (0.9-2.4); AST(SGOT) 30 U/L (15-37); Alanine Aminotransfer ALT/SGPT 26 U/L (13-56); Albumin, Serum 2.7 g/dL (3.2-5.0); Alkaline Phosphatase 94 U/L (45-117); Anion Gap 2 (5-15); BUN 34 mg/dL (7-18); BUN/Creat Ratio 29.8 RATIO (10-20); Calcium,Total 9.1 mg/dL (8.5-10.1); Chloride 103 mmol/L (98-107); Creatinine, Serum 1.14 mg/dL (0.55-1.02); EST Glomerular Filtration Rate 48 mL/min (>60); Est Glom Filt Rate - Afr Amer 58 mL/min (>60); Estimated Creatinine Clearance 38.31 ml/min; Globulin 3.2 g/dL (2.2-4.2); Glucose 125 mg/dL (74-106); Potassium 4.8 mmol/L (3.5-5.1); Protein, Total 5.9 g/dL (6.4-8.2); Sodium Level 135 mmol/L (136-145)
[2023-01-12] MEDS: 0.9% Normal Saline 1,000 ML 150 ML IV ×3 (12:52→18:30)
--- NOTE | 2023-01-12 12:53 | CT_ITS ---
STUDY: CT BRAIN WITHOUT CONTRAST REASON FOR EXAM: Female, 87 years old. Altered mental status RADIATION DOSAGE (If Supplied By Facility): CTDIvol = ( 44.99 ) mGy, DLP = ( 849.54 ) mGycm TECHNIQUE: Transaxial CT imaging of the brain was performed without administration of intravenous contrast material. Individualized dose optimization techniques were used for this CT. COMPARISON: Comparison is made with prior study dated September 16, 2022. FINDINGS: Normal soft tissue structures. Normal calvarium. There is mild cerebral atrophy with widening of the extra-axial spaces and ventricular dilatation. There are areas of decreased attenuation within the white matter tracts of the supratentorial brain, consistent with microvascular disease changes. Stable small old lacunar infarcts involving the basal ganglion more prominent in the left thalamus. Normal brainstem. Normal cerebellum. There is no intracranial hemorrhage. There are no findings of an acute ischemic infarction. Atherosclerotic calcification of the vertebral arteries and cavernous portions of the internal carotid arteries bilaterally. Normal visualized paranasal sinuses. CT/Brain/Head without Contrast IMPRESSION: Chronic involutional changes of the brain. Electronically Signed: Alex Lobato MD at 15:09 EDT ,
[2023-01-12 12:54] LABS: Bacteria 0 SEEN /hpf (None Seen); Mucous, Urine 0 SEEN /hpf (<or=2+); Red Blood Cells-Urine 0 SEEN /hpf (0-5); Squamous Epithelial Cells - UA 0 SEEN /hpf (5-10)
[2023-01-12 13:14] LABS: Color, Urine Yellow (Yellow); Glucose, Dipstick Normal (Normal); Ketone-Dipstick Negative (Negative); Leukocyte Esterase-Dipstick 25 /ul (Negative); Nitrite-Dipstick Negative (Negative); Occult Blood-Urine Negative /ul (Negative); Protein-Dipstick Negative (Negative); Specific Gravity, Urine 1.015 (1.002-1.030); Urine Clarity Clear (Clear); Urine Urobilinogen Normal (Normal)
[2023-01-12 13:17] LABS: Urine Bilirubin Dipstick 1 mg/dL (Negative)
[2023-01-12 13:34] LABS: White Blood Cells 0-5 SEEN /hpf (0-5)
--- NOTE | 2023-01-12 13:35 | NURSING ---
[address], ALZ DEMENTIA
--- NOTE | 2023-01-12 14:19 | HP.PCM.HOS_ITS ---
HPI - General General Date of Admission: 01/12/23 Date of Service: 01/12/23 Chief Complaint: BRBPR HPI Narrative LIZA HANCOCK, is a 87 F who presents with purulent blood per rectum. Began this morning. Patient is a poor historian due to dementia so history obtained through the emergency room physician and her . Patient had one episode that was described as rather large. Has never had this problem before. Patient is on aspirin and clopidogrel due to history of stroke. Patient brought to the emergency room and an hemoglobin of 10.1. Dr. Adames, gastroenterology, was contacted and recommended a CAT scan. Patient is not been able to say her name or her 's name. She has had this before with prior strokes but this is not typical of her baseline according to her . [facility] Medical History Alzheimer disease AMS (altered mental status) Anemia due to stage 3 chronic kidney disease Arthritis Bowel incontinence Chronic diarrhea CPAP (continuous positive airway pressure) dependence CVA (cerebral vascular accident) Dementia DM (diabetes mellitus), type 2 Falls GERD (gastroesophageal reflux disease) Hearing loss, left Hearing loss, right History of Sjogren's disease History of stroke Loose stools Mental status alteration Nausea and vomiting in adult Non-smoker Noninfective gastroenteritis and colitis, unspecified RLS (restless legs syndrome) Type 2 diabetes mellitus without complications Varicose veins of leg with edema Home Medications omeprazole 40 mg capsule,delayed release 40 mg PO DAILY GERD 01/06/14 [History Last Taken 01/11/23] cholecalciferol (vitamin D3) 25 mcg (1,000 unit) capsule 1,000 unit PO DAILY supplement 08/28/16 [History Last Taken 01/11/23] donepezil 5 mg tablet 10 mg PO QHS memory 08/28/16 [History Last Taken 01/11/23] metformin 500 mg tablet 500 mg PO DAILY blood sugar 08/28/16 [History Last Taken 01/11/23] cinnamon bark 500 mg capsule 1,000 mg PO DAILY supplement 11/30/17 [History Last Taken 01/11/23] atorvastatin 80 mg tablet 80 mg PO QHS #30 tabs 12/03/17 [Rx Last Taken 01/11/23] clopidogrel 75 mg tablet 75 mg PO DAILY #30 tabs 12/03/17 [Rx Last Taken 01/11/23] fzdvdaiw-atv-xpsil acid 0.4 mg-lycopene 300 mcg-lutein 250 mcg tablet 1 ea PO BID supplement 12/03/18 [History Last Taken 01/11/23] naproxen sodium 220 mg capsule 220 mg PO BID pain 12/03/18 [History Last Taken 01/11/23] Vitamin C 1 tab PO BID 06/08/19 [History Last Taken 01/11/23] memantine 10 mg tablet 10 mg PO BID Check with primary doctor 09/11/21 [History Last Taken 01/11/23] ramipril 5 mg capsule 5 mg PO DAILY Check with primary doctor 01/11/22 [History Last Taken 01/11/23] ropinirole 0.25 mg tablet 0.5 mg PO QHS Check with primary doctor 01/11/22 [History Last Taken 01/11/23] modafinil 100 mg tablet 200 mg PO DAILY Check with primary doctor 09/16/22 [History Last Taken 01/11/23] aspirin 81 mg chewable tablet 81 mg PO BREAKFAST #30 tabs 09/20/22 [Rx Last Taken 01/11/23] jctmsp-exxfpjsa-uxpeoyx 36,000-114,000-180,000 unit capsule,delay rel (Creon) See Rx Instructions PO .COMPLEX #320 caps 10/13/22 [Rx Last Taken 01/12/23] glipizide 5 mg tablet 2.5 mg PO BID DM 01/12/23 [History Last Taken 01/11/23] Allergy/AdvReac Type Severity Reaction Status Date / Time pollen extracts Allergy Intermediate PT UNSURE Verified 01/12/23 11:49 OF REACTION Family History Mother Alzheimer disease Brother Alzheimer disease Aunt Alzheimer disease Father Heart disease Surgical History H/O lumpectomy H/O: hysterectomy History of tonsillectomy Social History household members: spouse Smoking Status: Never smoker alcohol intake: never substance use type: does not use ROS Review of Systems ROS Unobtainable: due to encephalopathy Vital Signs Vital Signs Vital Signs: 01/12/23 11:50 01/12/23 11:53 Temperature 36.2 C L 36.2 C L Temperature Source Temporal Temporal Pulse Rate 72 72 Respiratory Rate 16 16 Blood Pressure 99/72 99/72 Blood Pressure Mean 81 81 Pulse Ox 94 94 Oxygen Delivery Method Room Air Room Air Weight Weight: 72.4 kg Body Mass Index (BMI) 22.8 Physical Exam Const no apparent distress Constitutional Narrative: Awake. Follows commands. Is not able to say her name or her 's name. HEENT normocephalic and head/scalp atraumatic Resp normal respiratory effort, no retractions, no use of accessory muscles and clear to auscultation bilaterally Cardio regular rate, regular rhythm, S1 normal heart sound and S2 normal heart sound GI normal to inspection, nondistended, normoactive bowel sounds, soft to palpation, non-tender and non-distended GI Narrative: Rectal exam showed no blood. Did have some nonthrombosed external hemorrhoids. Extremity normal to inspection Neuro moves all extremities Sensorium / Orientation: awake Psych affect normal Results Lab / Micro Data 01/12/23 12:00 01/12/23 12:00 Labs: Laboratory Results - last 24 hr 01/12/23 12:00: WBC 7.9, RBC 3.34 L, Hgb 10.1 L, Hct 32.0 L, MCV 95.8, MCH 30.2, MCHC 31.6 L, RDW Std Deviation 47.6 H, RDW Coeff of Marcio 13.4, Plt Count 225, MPV 11.0, Immature Gran % (Auto) 0.800, Neut % (Auto) 61.7, Lymph % (Auto) 27.4, [place] % (Auto) 7.1, Eos % (Auto) 2.0, Baso % (Auto) 1.0, Absolute Neuts (auto) 4.9, Absolute Lymphs (auto) 2.16, Nucleated RBC % 0, PT Cancelled, INR Cancelled, APTT Cancelled, Sodium 135 L, Potassium 4.8, Chloride 103, Carbon Dioxide 30.0, Anion Gap 2 L, BUN 34 H, Creatinine 1.14 H, Estim Creat Clear Calc 38.31, Est GFR (MDRD) Af Amer 58 L, Est GFR (MDRD) Non-Af 48 L, BUN/Creatinine Ratio 29.8 H, Glucose 125 H, Calcium 9.1, Total Bilirubin 0.40, AST 30, ALT 26, Alkaline Phosphatase 94, Total Protein 5.9 L, Albumin 2.7 L, Globulin 3.2, Albumin/Globulin Ratio 0.8 L, Blood Type AB POSITIVE, Antibody Screen NEGATIVE 01/12/23 12:45: Urine Color Yellow, Urine Clarity Clear, Urine pH 5.0, Ur Specific [place] 1.015, Urine Protein Negative, Urine Glucose (UA) Normal, Urine Ketones Negative, Urine Occult Blood Negative, Urine Nitrite Negative, Urine Bilirubin 1 H, Urine Urobilinogen Normal, Ur Leukocyte Esterase 25 H, Urine RBC 0 SEEN, Urine WBC 0-5 SEEN, Ur Squamous Epith Cells 0 SEEN, Urine Bacteria 0 SEEN, Urine Mucus 0 SEEN Micro: Microbiology 01/12/23 12:22 Stool Stool Occult Blood (JIMI) - Final Occult Blood Positive Assessment & Plan Assessment/Plan (1) GI bleed: QUALIFIERS: GI bleed type/associated pathology: diverticulosis Qualified Code(s): K57.91 - Diverticulosis of intestine, part unspecified, without perforation or abscess with bleeding PLAN: Suspected due to diverticular bleed. CAT scan ordered. We will follow-up. Patient's hemoglobin has dropped but appears to be stable no active bleeding at this time. GI on consult Hold aspirin and mvdwftbkbh-yujc-czs for now. Clear liquid diet (2) Delirium: PLAN: Hypoactive This is in a patient with ongoing dementia and has had history of stroke. Nothing focal to suggest stroke at this time. Head CT has been ordered PLAN: Plan Chronic conditions * Dementia: Hold memantine as well as donezepil for now given the delirium. * Stroke: Hold aspirin and clopidogrel for now. * Sjogren's VTE prophylaxis with SCDs. Chemical prophylaxis contraindicated in light of GI bleed. CODE STATUS: Addressed with the patient's , who is her power of wire wheeler, patient is to be DNR Comfort Care arrest. Charges/Coding Visit Charges Inpatient E&M: 79779 Init Hosp L3
[2023-01-12 14:52] LABS: International Normalized Ratio 1.1; Partial Thromboplast Time 29.4 Seconds (24.1-36.2); Prothrombin Time (Protime)PT. 14.6 SECONDS (11.7-14.9)
--- NOTE | 2023-01-12 15:06 | ED.RN ---
pt back from ct and lt ac with extravasation. intervention added per ct nurse. reported that pt moved arms about during ct so may have accidentally pulled on.
--- NOTE | 2023-01-12 17:49 | CON.PCM.GI_ITS ---
HPI Consult Data Date of Consult: 01/12/23 HPI Narrative Reason for Consultation: GI bleed HPI Narrative: LIZA HANCOCK, is a 87 F who presents via EMS with lower GI bleeding. Her history limited from patient due to Alzheimer's history. At her baseline she is oriented to person. Here with spouse coming from home by EMS due to large amou nt of blood from the rectum dark in color. Per spouse patient mildly weaker since yesterday today intermittent she came out of the bedroom sat in the chair noted blood on the chair he put her on the commode there was a large amount of dark blood. She is on aspirin and Plavix for stroke in September. Patient has not had a recent colonoscopy in years per spouse. Patient can ambulate at times without assistance but does have a cane and walker. Patient has not been transfused in the past. 87 year old woman was admitted with a six month history of severe watery brown diarrhoea. 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 She has had multiple antibiotics in the recent past. She had not travelled recently or changed her diet, but she had lost 10 lbs in weight. She had a history of diverticulosis, recurrent urinary tract infections, and hypertension but no family history of cancer. She ia a non-smoker who lives with her . [facility] Medical History (Updated 01/12/23 @ 16:15 by Evelyn Díaz) Alzheimer disease AMS (altered mental status) Anemia due to stage 3 chronic kidney disease Arthritis Bowel incontinence Chronic diarrhea CPAP (continuous positive airway pressure) dependence CVA (cerebral vascular accident) Dementia Diabetes DM (diabetes mellitus), type 2 Falls GERD (gastroesophageal reflux disease) GERD (gastroesophageal reflux disease) Hearing loss, left Hearing loss, right History of Sjogren's disease History of stroke Loose stools Mental status alteration Nausea and vomiting in adult Non-smoker Noninfective gastroenteritis and colitis, unspecified RLS (restless legs syndrome) TIA (transient ischemic attack) Type 2 diabetes mellitus without complications Varicose veins of leg with edema Home Medications omeprazole 40 mg capsule,delayed release 40 mg PO DAILY GERD 01/06/14 [History Last Taken 01/11/23] cholecalciferol (vitamin D3) 25 mcg (1,000 unit) capsule 1,000 unit PO DAILY supplement 08/28/16 [History Last Taken 01/11/23] donepezil 5 mg tablet 10 mg PO QHS memory 08/28/16 [History Last Taken 01/11/23] metformin 500 mg tablet 500 mg PO DAILY blood sugar 08/28/16 [History Last Taken 01/11/23] cinnamon bark 500 mg capsule 1,000 mg PO DAILY supplement 11/30/17 [History Last Taken 01/11/23] atorvastatin 80 mg tablet 80 mg PO QHS #30 tabs 12/03/17 [Rx Last Taken 01/11/23] clopidogrel 75 mg tablet 75 mg PO DAILY #30 tabs 12/03/17 [Rx Last Taken ] ubkeuztl-tmt-pujcz acid 0.4 mg-lycopene 300 mcg-lutein 250 mcg tablet 1 ea PO BID supplement 12/03/18 [History Last Taken 01/11/23] naproxen sodium 220 mg capsule 220 mg PO BID pain 12/03/18 [History Last Taken 01/11/23] Vitamin C 1 tab PO BID 06/08/19 [History Last Taken 01/11/23] memantine 10 mg tablet 10 mg PO BID Check with primary doctor 09/11/21 [History Last Taken 01/11/23] ramipril 5 mg capsule 5 mg PO DAILY Check with primary doctor 01/11/22 [History Last Taken 01/11/23] ropinirole 0.25 mg tablet 0.5 mg PO QHS Check with primary doctor 01/11/22 [History Last Taken 01/11/23] modafinil 100 mg tablet 200 mg PO DAILY Check with primary doctor 09/16/22 [History Last Taken 01/11/23] aspirin 81 mg chewable tablet 81 mg PO BREAKFAST #30 tabs 09/20/22 [Rx Last Taken 01/11/23] llyezs-ehzpekbp-smdercf 36,000-114,000-180,000 unit capsule,delay rel (Creon) See Rx Instructions PO .COMPLEX #320 caps 10/13/22 [Rx Last Taken 01/12/23] glipizide 5 mg tablet 2.5 mg PO BID DM 01/12/23 [History Last Taken 01/11/23] Allergy/AdvReac Type Severity Reaction Status Date / Time pollen extracts Allergy Intermediate PT UNSURE Verified 01/12/23 14:46 OF REACTION Family History Mother Alzheimer disease Brother Alzheimer disease Aunt Alzheimer disease Father Heart disease Surgical History H/O lumpectomy H/O: hysterectomy History of tonsillectomy Social History household members: spouse Smoking Status: Never smoker alcohol intake: never substance use type: does not use ROS Review of Systems ROS Unobtainable: due to encephalopathy Physical Exam Const no apparent distress Constitutional Narrative: Awake. . HEENT normocephalic and head/scalp atraumatic Resp normal respiratory effort, no retractions, no use of accessory muscles and clear to auscultation bilaterally Cardio regular rate, regular rhythm, S1 normal heart sound and S2 normal heart sound GI normal to inspection, nondistended, normoactive bowel sounds, soft to palpation, non-tender and non-distended GI Narrative: Rectal exam showed no blood. Did have some nonthrombosed external hemorrhoids. Extremity normal to inspection Neuro moves all extremities Sensorium / Orientation: awake Psych affect normal Lab / Micro Data 01/12/23 12:00 01/12/23 12:00 Labs: Laboratory Results - last 24 hr 01/12/23 12:00: WBC 7.9, RBC 3.34 L, Hgb 10.1 L, Hct 32.0 L, MCV 95.8, MCH 30.2, MCHC 31.6 L, RDW Std Deviation 47.6 H, RDW Coeff of Marcio 13.4, Plt Count 225, MPV 11.0, Immature Gran % (Auto) 0.800, Neut % (Auto) 61.7, Lymph % (Auto) 27.4, [place] % (Auto) 7.1, Eos % (Auto) 2.0, Baso % (Auto) 1.0, Absolute Neuts (auto) 4.9, Absolute Lymphs (auto) 2.16, Nucleated RBC % 0, PT Cancelled, INR Cancelled, APTT Cancelled, Sodium 135 L, Potassium 4.8, Chloride 103, Carbon Dioxide 30.0, Anion Gap 2 L, BUN 34 H, Creatinine 1.14 H, Estim Creat Clear Calc 38.31, Est GFR (MDRD) Af Amer 58 L, Est GFR (MDRD) Non-Af 48 L, BUN/Creatinine Ratio 29.8 H, Glucose 125 H, Calcium 9.1, Total Bilirubin 0.40, AST 30, ALT 26, Alkaline Phosphatase 94, Total Protein 5.9 L, Albumin 2.7 L, Globulin 3.2, Albumin/Globulin Ratio 0.8 L, Blood Type AB POSITIVE, Antibody Screen NEGATIVE 01/12/23 12:45: Urine Color Yellow, Urine Clarity Clear, Urine pH 5.0, Ur S pecific [place] 1.015, Urine Protein Negative, Urine Glucose (UA) Normal, Urine Ketones Negative, Urine Occult Blood Negative, Urine Nitrite Negative, Urine Bilirubin 1 H, Urine Urobilinogen Normal, Ur Leukocyte Esterase 25 H, Urine RBC 0 SEEN, Urine WBC 0-5 SEEN, Ur Squamous Epith Cells 0 SEEN, Urine Bacteria 0 SEEN, Urine Mucus 0 SEEN 01/12/23 13:57: PT 14.6, INR 1.1, APTT 29.4 Micro: Microbiology 01/12/23 12:22 Stool Stool Occult Blood (JIMI) - Final Occult Blood Positive Radiology Impression Abdomen/Pelvis CT 01/12/23 12:23 IMPRESSION: Sigmoid diverticulosis. Calcified fibroid uterus. Electronically Signed: Alex Lobato MD at 15:08 EDT , Brain CT 01/12/23 12:53 IMPRESSION: Chronic involutional changes of the brain. Electronically Signed: Alex Lobato MD at 15:09 EDT , Assessment & Plan Assessment/Plan (1) GI bleed: QUALIFIERS: GI bleed type/associated pathology: diverticulosis Qualified Code(s): K57.91 - Diverticulosis of intestine, part unspecified, without perforation or abscess with bleeding PLAN: Differential diagnosis for lower GI bleed does include hemorrhoidal bleeding, diverticular bleed, angiodysplasia, less likely neoplasia. CT scan did not show any signs of active bleeding. Recommend to follow H&H. Due to her multiple comorbidities recommend to just hold antiplatelet therapy, no anticoagulation and hopefully she will not have any more bleeding off of blood thinners. Charges/Coding Visit Charges Inpatient E&M: 63765 Subs Hosp L2
[2023-01-12] MEDS: 0.9% Saline Lock 10 ML Syringe IV (18:30)
[2023-01-13] VITALS: BP 121/64; PULSE 77; RESP 16; TEMP 36.6; O2SAT 93
[2023-01-13 02:59] VITALS: BP 121/64; PULSE 77; RESP 16; TEMP 36.6; O2SAT 93
[2023-01-13 03:00] VITALS: BP 121/64; PULSE 77; RESP 16; TEMP 36.6; O2SAT 93
[2023-01-13] MEDS: 0.9% Normal Saline 1,000 ML 150 ML IV ×3 (05:02→20:52)
[2023-01-13 06:30] LABS: Absolute Lymphocyte Count 2.52 X10^3/uL (0.83-4.51); Absolute Neutrophil Count 3.3 X10^3/uL (2.0-7.7); Basophil# 0.09 X10^3/uL; Basophil% 1.3 % (0-1); Eosinophil# 0.23 X10^3/uL; Eosinophils% 3.4 % (0-5); Hematocrit 26.5 % (37-47); Hemoglobin 8.5 g/dL (12.0-15.0); Lymphocyte # 2.52 X10^3/ul (0.83-4.51); Lymphocyte % 36.7 % (19-41); Mean Corp Hgb Conc 32.1 g/dL (32-36); Mean Corpuscular Hgb 30.5 pg (27.0-32.0); Mean Platelet Vol. 10.6 fl (6.2-12.0); Monocyte% 10.2 % (0-10); NRBC Flagged by Analyzer 0.3 % (0-5); Neutrophil # 3.28 X10^3/uL (2.7-7.7); Neutrophil % 47.8 % (47-70); Platelet Count 191 K/mm3 (150-450); RBC Distribution Width CV 13.2 % (11.6-14.6); Red Blood Count 2.79 M/mm3 (4.2-5.4); White Blood Count 6.9 K/mm3 (4.4-11.0)
[2023-01-13 07:14] LABS: Anion Gap 3 (5-15); BUN 31 mg/dL (7-18); BUN/Creat Ratio 32.6 RATIO (10-20); Calcium,Total 8.7 mg/dL (8.5-10.1); Chloride 109 mmol/L (98-107); Creatinine, Serum 0.95 mg/dL (0.55-1.02); EST Glomerular Filtration Rate 59 mL/min (>60); Est Glom Filt Rate - Afr Amer 71 mL/min (>60); Estimated Creatinine Clearance 45.97 ml/min; Glucose 106 mg/dL (74-106); Potassium 4.1 mmol/L (3.5-5.1); Sodium Level 138 mmol/L (136-145)
[2023-01-13 08:10] VITALS: BP 130/69; PULSE 92; RESP 15; TEMP 36.6; O2SAT 98
[2023-01-13] MEDS: Pantoprazole Sodium 40 MG Tablet PO (08:19)
[2023-01-13] MEDS: Ramipril 5 MG Capsule PO (08:19)
--- NOTE | 2023-01-13 08:21 | PCM.PN.HOSP ---
Reason for Visit Reason for Visit: Diagnoses Diverticulosis of intestine, part unspecified, without perforation or abscess with bleeding (01/12/23) Disorientation, unspecified (01/12/23) Subjective Subjective Still confused. Objective Data Objective Data Vital Signs: Vital Signs Temp Pulse Resp BP Pulse Ox O2 Del Method 36.6 C 92 15 130/69 H 98 Room Air 01/13/23 08:10 01/13/23 08:10 01/13/23 08:10 01/13/23 08:10 01/13/23 08:10 01/13/23 08:10 Oxygen Delivery Method Room Air Weight: 73.5 kg Body Mass Index (BMI) 23.2 Intake & Output: Intake and Output for Last 24 Hours 01/11/23 01/12/23 01/13/23 23:59 23:59 23:59 Intake Total 1850.0 / 1850.0 525 / 525 Balance 1850.0 / 1850.0 525 / 525 Lab / Micro Data 01/13/23 06:18 01/13/23 06:18 Labs: Laboratory Results - last 24 hr 01/12/23 12:00: WBC 7.9, RBC 3.34 L, Hgb 10.1 L, Hct 32.0 L, MCV 95.8, MCH 30.2, MCHC 31.6 L, RDW Std Deviation 47.6 H, RDW Coeff of Marcio 13.4, Plt Count 225, MPV 11.0, Immature Gran % (Auto) 0.800, Neut % (Auto) 61.7, Lymph % (Auto) 27.4, [place] % (Auto) 7.1, Eos % (Auto) 2.0, Baso % (Auto) 1.0, Absolute Neuts (auto) 4.9, Absolute Lymphs (auto) 2.16, Nucleated RBC % 0, PT Cancelled, INR Cancelled, APTT Cancelled, Sodium 135 L, Potassium 4.8, Chloride 103, Carbon Dioxide 30.0, Anion Gap 2 L, BUN 34 H, Creatinine 1.14 H, Estim Creat Clear Calc 38.31, Est GFR (MDRD) Af Amer 58 L, Est GFR (MDRD) Non-Af 48 L, BUN/Creatinine Ratio 29.8 H, Glucose 125 H, Calcium 9.1, Total Bilirubin 0.40, AST 30, ALT 26, Alkaline Phosphatase 94, Total Protein 5.9 L, Albumin 2.7 L, Globulin 3.2, Albumin/Globulin Ratio 0.8 L, Blood Type AB POSITIVE, Antibody Screen NEGATIVE 01/12/23 12:45: Urine Color Yellow, Urine Clarity Clear, Urine pH 5.0, Ur Specific [place] 1.015, Urine Protein Negative, Urine Glucose (UA) Normal, Urine Ketones Negative, Urine Occult Blood Negative, Urine Nitrite Negative, Urine Bilirubin 1 H, Urine Urobilinogen Normal, Ur Leukocyte Esterase 25 H, Urine RBC 0 SEEN, Urine WBC 0-5 SEEN, Ur Squamous Epith Cells 0 SEEN, Urine Bacteria 0 SEEN, Urine Mucus 0 SEEN 01/12/23 13:57: PT 14.6, INR 1.1, APTT 29.4 01/13/23 06:18: WBC 6.9, RBC 2.79 L, Hgb 8.5 L, Hct 26.5 L, MCV 95.0, MCH 30.5, MCHC 32.1, RDW Std Deviation 46.0 H, RDW Coeff of Marcio 13.2, Plt Count 191, MPV 10.6, Immature Gran % (Auto) 0.600, Neut % (Auto) 47.8, Lymph % (Auto) 36.7, [place] % (Auto) 10.2 H, Eos % (Auto) 3.4, Baso % (Auto) 1.3 H, Absolute Neuts (auto) 3.3, Absolute Lymphs (auto) 2.52, Nucleated RBC % 0.3, Sodium 138, Potassium 4.1, Chloride 109 H, Carbon Dioxide 26.0, Anion Gap 3 L, BUN 31 H, Creatinine 0.95, Estim Creat Clear Calc 45.97, Est GFR (MDRD) Af Amer 71, Est GFR (MDRD) Non-Af 59 L, BUN/Creatinine Ratio 32.6 H, Glucose 106, Calcium 8.7 Micro: Microbiology 01/12/23 12:22 Stool Stool Occult Blood (JIMI) - Final Occult Blood Positive Radiography Diagnostic Testing: Radiology Impression Abdomen/Pelvis CT 01/12/23 12:23 IMPRESSION: Sigmoid diverticulosis. Calcified fibroid uterus. Electronically Signed: Alex Lobato MD at 15:08 EDT , Brain CT 01/12/23 12:53 IMPRESSION: Chronic involutional changes of the brain. Electronically Signed: Alex Lobato MD at 15:09 EDT , Physical Exam Const Constitutional Narrative: confused. more alert today, able to cite her name. Cardio regular rate, regular rhythm, S1 normal heart sound and S2 normal heart sound GI normal to inspection, nondistended, normoactive bowel sounds GI Narrative: had gelatinous bloody stool, large amount. Assessment & Plan Assessment/Plan (1) GI bleed: QUALIFIERS: GI bleed type/associated pathology: diverticulosis Qualified Code(s): K57.91 - Diverticulosis of intestine, part unspecified, without perforation or abscess with bleeding PLAN: Suspected due to diverticular bleed. CAT scan showed sigmoid diverticulosis. Hold aspirin and clopidogrel for now. Clear liquid diet Seen by GI, recommending to hold antiplatelets for now. No intervention at this time. (2) Delirium: PLAN: Hypoactive This is in a patient with ongoing dementia and has had history of stroke. Nothing focal to suggest stroke at this time. Head CT has been ordered (3) Acute blood loss anemia: PLAN: Hg went from 10.1 to 8.5 (had been 11.3 in September) Monitor No indication for TF at this time. PLAN: Plan Chronic conditions Dementia: Hold memantine as well as donezepil for now given the delirium. Stroke: Hold aspirin and clopidogrel for now. Sjogren's VTE prophylaxis with SCDs. Chemical prophylaxis contraindicated in light of GI bleed. CODE STATUS: Addressed with the patient's , who is her power of associate attorney, patient is to be DNR Comfort Care arrest. Charges/Coding Visit Charges Inpatient E&M: 46960 Subs Hosp L2
--- NOTE | 2023-01-13 11:25 | CASEMGMT ---
ALEKSANDAR LAWRENCE Discharge Planning Assessment: ALEKSANDAR LAWRENCE DC Planning Assessment: Noted pt to have dementia. Call placed to pt's spouse for initial transition planning/care coordination assessment. ALEKSANDAR LAWRENCE introduced self and role at [facility], pt's spouse voices understanding and agreeable to participating in assessment. Care providers, pharmacy, and demographics verified. Admitting Dx: GI bleed PCP: Janeth Specialists: Sharad (Podiatry), Rosangela (GI), Laya (neurology), Diony (ophthalmology) Preferred Pharmacy: [facility] Insurance: [facility] A/B, [employer] supplement Prescription Benefit: yes Living Will/HPOA: none LNOK: spouse Mat Living Arrangements: Pt lives with her spouse Mat in a split level home with 9 steps to the second floor and 7 steps to the kitchen, bedroom, bathroom, and dining areas all with a handmade oak handrail. Pt requires assistance from spouse for all ADLs. Spouse does set pt up for bathing and pt is able to do some of her own bathing with supervision but spouse assists for the majority of the routine. Pt's spouse prepares meals and performs all house hold tasks. Transportation: Pt's spouse drives. DME: quad cane, wheeled walker, rollator, shower chair (does not use), handmade wooden seat for the shower, hand held shower, high rise toilet, pulse oximeter, CPAP, has a bathtub lift but has not had to use this recently. Glucometer with needed supplies. Checks her glucose BID. SNF: pt's spouse denies any previous providers. HHC: [facility] in 09/2022 but is no longer active with their services. Plan: Pt's spouse states he absolutely wants to take pt home and continue to provide care. Spouse states his main concern is the ability of pt to return home with a functional diet. States pt primarily eats soft foods such as canned soup. Will continue to monitor pt's medical progress and PT/OT evaluations for determination of further discharge needs. Wan Ruiz RN CM
[2023-01-13 12:05] LABS: Hemoglobin 8.3 g/dL (12.0-15.0)
[2023-01-13 14:39] VITALS: BP 118/54; PULSE 64; RESP 16; TEMP 36.6; O2SAT 94
[2023-01-13 17:54] LABS: Hematocrit 27.3 % (37-47); Hemoglobin 9.1 g/dL (12.0-15.0)
[2023-01-13 20:00] VITALS: BP 142/56; PULSE 75; RESP 18; TEMP 36.8; O2SAT 94
--- NOTE | 2023-01-13 20:14 | EX.PCM.PN.GI ---
Subjective Subjective Patient had another large bowel movement today. There was some blood in the bowel movement. She is not able to give history due to dementia. Therefore all history is obtained from nursing. Objective Data Objective Data Vital Signs: Vital Signs Temp Pulse Resp BP Pulse Ox O2 Del Method 98.3 F 75 18 142/56 H 94 Room Air 01/13/23 20:00 01/13/23 20:00 01/13/23 20:00 01/13/23 20:00 01/13/23 20:00 01/13/23 20:00 Oxygen Delivery Method Room Air Weight: 162 lb 0.636 oz Body Mass Index (BMI) 23.2 Intake & Output: Intake and Output for Last 24 Hours 01/11/23 01/12/23 01/13/23 23:59 23:59 23:59 Intake Total 1850.0 / 1850.0 3825 / 3825 Balance 1850.0 / 1850.0 3825 / 3825 Medical Nutrition Assessment Dietitian: Malnutrition Criteria Met Start: 01/13/23 15:15 Freq: Status: Active Protocol: Document 01/13/23 15:16 TIRSO (Rec: 01/13/23 15:16 [facility] [id number]) Nutrition Malnutrition Evidence of Malnutrition Exists Yes Malnutrition (severe): Chronic Evidenced By Weight Loss (Severe),Physical Changes (Moderate),Physical Changes (Severe) Clinical Problem Chronic Disease or Condition Related Malnutrition Etiology related to physiological changes increasing nutrient needs and/or limiting oral intakes Signs/Symptoms as evidenced by significant unintentional weight loss of 12.9% in ~4 months and moderate to severe fat and muscle wasting per NFPA findings. Status Active Problem Recommendation Dietitian Recommendations/Changes Recommend Ensure Clear Apple 3x/day with meals to help increase oral intakes and limit further weight loss while on Clear Liquids. Recommend diet advancement when appropriate to Transitional. Will continue following the pt and monitoring oral intakes. Lab / Micro Data 01/13/23 17:45 01/13/23 06:18 Labs: Laboratory Results - last 24 hr 01/13/23 06:18: WBC 6.9, RBC 2.79 L, Hgb 8.5 L, Hct 26.5 L, MCV 95.0, MCH 30.5, MCHC 32.1, RDW Std Deviation 46.0 H, RDW Coeff of Marcio 13.2, Plt Count 191, MPV 10.6, Immature Gran % (Auto) 0.600, Neut % (Auto) 47.8, Lymph % (Auto) 36.7, [place] % (Auto) 10.2 H, Eos % (Auto) 3.4, Baso % (Auto) 1.3 H, Absolute Neuts (auto) 3.3, Absolute Lymphs (auto) 2.52, Nucleated RBC % 0.3, Sodium 138, Potassium 4.1, Chloride 109 H, Carbon Dioxide 26.0, Anion Gap 3 L, BUN 31 H, Creatinine 0.95, Estim Creat Clear Calc 45.97, Est GFR (MDRD) Af Amer 71, Est GFR (MDRD) Non-Af 59 L, BUN/Creatinine Ratio 32.6 H, Glucose 106, Calcium 8.7 01/13/23 11:46: Hgb 8.3 L, Hct 26.0 L 01/13/23 17:45: Hgb 9.1 L, Hct 27.3 L Micro: Microbiology 01/12/23 15:04 Stool Stool Lactoferrin - Final 01/12/23 15:04 Stool Enteric Bacteriology - Final 01/12/23 15:04 Stool C. difficile DNA Amplification - Final 01/12/23 12:22 Stool Stool Occult Blood (JIMI) - Final Occult Blood Positive Physical Exam Const Constitutional Narrative: confused. Cardio regular rate, regular rhythm, S1 normal heart sound and S2 normal heart sound GI normal to inspection, nondistended, normoactive bowel sounds GI Narrative: had gelatinous bloody stool, large amount. Assessment & Plan Assessment/Plan (1) GI bleed: QUALIFIERS: GI bleed type/associated pathology: diverticulosis Qualified Code(s): K57.91 - Diverticulosis of intestine, part unspecified, without perforation or abscess with bleeding PLAN: Differential diagnosis for lower GI bleed does include hemorrhoidal bleeding, diverticular bleed, angiodysplasia, less likely neoplasia. CT scan did not show any signs of active bleeding. Recommend to follow H&H. Due to her multiple comorbidities recommend to just hold antiplatelet therapy, no anticoagulation and hopefully she will not have any more bleeding off of blood thinners. 01/13: Her hemoglobin went down to 8.3 but is up to 9.1. If she continues to bleed tomorrow then we will repeat her CT angiography. She may need a colonoscopy if she continues to bleed. Charges/Coding Visit Charges Inpatient E&M: 05147 Subs Hosp L3
[2023-01-14 02:00] VITALS: BP 136/62; PULSE 72; RESP 18; TEMP 37; O2SAT 94
[2023-01-14] MEDS: 0.9% Normal Saline 1,000 ML 150 ML IV (03:46)
[2023-01-14 05:43] LABS: Absolute Lymphocyte Count 2.33 X10^3/uL (0.83-4.51); Absolute Neutrophil Count 4.1 X10^3/uL (2.0-7.7); Basophil% 1.3 % (0-1); Eosinophil# 0.27 X10^3/uL; Eosinophils% 3.6 % (0-5); Hematocrit 26.9 % (37-47); Lymphocyte # 2.33 X10^3/ul (0.83-4.51); Lymphocyte % 31.1 % (19-41); Mean Corp Hgb Conc 33.5 g/dL (32-36); Mean Corpuscular Hgb 31.1 pg (27.0-32.0); Mean Corpuscular Volume 93.1 fL (81-99); Mean Platelet Vol. 10.2 fl (6.2-12.0); Monocyte# 0.68 X10^3/uL; Monocyte% 9.1 % (0-10); NRBC Flagged by Analyzer 0 % (0-5); Neutrophil # 4.08 X10^3/uL (2.7-7.7); Neutrophil % 54.5 % (47-70); Platelet Count 197 K/mm3 (150-450); RBC Distribution Width CV 13.2 % (11.6-14.6); RBC Distribution Width SD 44.9 fl (35.1-43.9); Red Blood Count 2.89 M/mm3 (4.2-5.4); White Blood Count 7.5 K/mm3 (4.4-11.0)
[2023-01-14 06:06] LABS: Anion Gap 4 (5-15); BUN 16 mg/dL (7-18); BUN/Creat Ratio 18.1 RATIO (10-20); Calcium,Total 8.6 mg/dL (8.5-10.1); Chloride 114 mmol/L (98-107); Creatinine, Serum 0.88 mg/dL (0.55-1.02); EST Glomerular Filtration Rate 64 mL/min (>60); Est Glom Filt Rate - Afr Amer 78 mL/min (>60); Estimated Creatinine Clearance 49.62 ml/min; Glucose 109 mg/dL (74-106); Potassium 3.8 mmol/L (3.5-5.1); Sodium Level 143 mmol/L (136-145)
--- NOTE | 2023-01-14 09:06 | PCM.PN.HOSP ---
Reason for Visit Reason for Visit: Diagnoses Acute posthemorrhagic anemia (01/12/23) Diverticulosis of intestine, part unspecified, without perforation or abscess with bleeding (01/12/23) Disorientation, unspecified (01/12/23) Subjective Subjective No further bleeding since yesterday. Objective Data Objective Data Vital Signs: Vital Signs Temp Pulse Resp BP Pulse Ox O2 Del Method 37.0 C 72 18 136/62 H 94 Room Air 01/14/23 02:00 01/14/23 02:00 01/14/23 02:00 01/14/23 02:00 01/14/23 02:00 01/14/23 05:15 Oxygen Delivery Method Room Air Weight: 73.5 kg Body Mass Index (BMI) 23.2 Intake & Output: Intake and Output for Last 24 Hours 01/12/23 01/13/23 01/14/23 23:59 23:59 23:59 Intake Total 1850.0 / 1850.0 4945 / 4945 1000 / 1000 Balance 1850.0 / 1850.0 4945 / 4945 1000 / 1000 Medical Nutrition Assessment Dietitian: Malnutrition Criteria Met Start: 01/13/23 15:15 Freq: Status: Active Protocol: Document 01/13/23 15:16 TIRSO (Rec: 01/13/23 15:16 AMPARO [id number]) Nutrition Malnutrition Evidence of Malnutrition Exists Yes Malnutrition (severe): Chronic Evidenced By Weight Loss (Severe),Physical Changes (Moderate),Physical Changes (Severe) Clinical Problem Chronic Disease or Condition Related Malnutrition Etiology related to physiological changes increasing nutrient needs and/or limiting oral intakes Signs/Symptoms as evidenced by significant unintentional weight loss of 12.9% in ~4 months and moderate to severe fat and muscle wasting per NFPA findings. Status Active Problem Recommendation Dietitian Recommendations/Changes Recommend Ensure Clear [place] 3x/day with meals to help increase oral intakes and limit further weight loss while on Clear Liquids. Recommend diet advancement when appropriate to Transitional. Will continue following the pt and monitoring oral intakes. Lab / Micro Data 01/14/23 12:04 01/14/23 05:30 Labs: Laboratory Results - last 24 hr 01/13/23 11:46: Hgb 8.3 L, Hct 26.0 L 01/13/23 17:45: Hgb 9.1 L, Hct 27.3 L 01/14/23 05:30: WBC 7.5, RBC 2.89 L, Hgb 9.0 L, Hct 26.9 L, MCV 93.1, MCH 31.1, MCHC 33.5, RDW Std Deviation 44.9 H, RDW Coeff of Marcio 13.2, Plt Count 197, MPV 10.2, Immature Gran % (Auto) 0.400, Neut % (Auto) 54.5, Lymph % (Auto) 31.1, [place] % (Auto) 9.1, Eos % (Auto) 3.6, Baso % (Auto) 1.3 H, Absolute Neuts (auto) 4.1, Absolute Lymphs (auto) 2.33, Nucleated RBC % 0, Sodium 143, Potassium 3.8, Chloride 114 H, Carbon Dioxide 25.0, Anion Gap 4 L, BUN 16, Creatinine 0.88, Estim Creat Clear Calc 49.62, Est GFR (MDRD) Af Amer 78, Est GFR (MDRD) Non-Af 64, BUN/Creatinine Ratio 18.1, Glucose 109 H, Calcium 8.6 Micro: Microbiology 01/12/23 15:04 Stool Stool Lactoferrin - Final 01/12/23 15:04 Stool Enteric Bacteriology - Final 01/12/23 15:04 Stool C. difficile DNA Amplification - Final 01/12/23 12:22 Stool Stool Occult Blood (JIMI) - Final Occult Blood Positive Physical Exam Const alert and no apparent distress Constitutional Narrative: up in chair. HEENT head/scalp atraumatic Resp normal respiratory effort, no retractions, no use of accessory muscles and clear to auscultation bilaterally Cardio regular rate, regular rhythm, S1 normal heart sound and S2 normal heart sound GI normal to inspection, nondistended, normoactive bowel sounds, soft to palpation, non-tender and non-distended Assessment & Plan Assessment/Plan (1) GI bleed: QUALIFIERS: GI bleed type/associated pathology: diverticulosis Qualified Code(s): K57.91 - Diverticulosis of intestine, part unspecified, without perforation or abscess with bleeding PLAN: Resolved Suspected due to diverticular bleed. CAT scan showed sigmoid diverticulosis. Hold aspirin and clopidogrel for now. Clear liquid diet Seen by GI, recommending to hold antiplatelets for now. No intervention at this time. (2) Delirium: PLAN: Hypoactive This is in a patient with ongoing dementia and has had history of stroke. Nothing focal to suggest stroke at this time. Head CT has been ordered (3) Acute blood loss anemia: PLAN: Hg went from 10.1 to 8.5 (had been 11.3 in September) Today, it is 9. Monitor No indication for TF at this time. 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 No acute concerns. I reviewed neuro consult from 09/18/22. The neurologist did not feel the CVA identified was causing her neurological symptoms at that time, but more likely progression of dementia. She had been on clopidogrel at that time. Aspirin was later added. Given the severe GI bleed, advanced dementia, the risk of dual antiplatelet therapy outweigh the risks. Will resume ASA in 72 hours (96 hours after last bleed). No additional clopidogrel. PLAN: Plan Chronic conditions Dementia: Hold memantine as well as donezepil for now given the delirium. Sjogren's VTE prophylaxis with SCDs. Chemical prophylaxis contraindicated in light of GI bleed. CODE STATUS: Addressed with the patient's , who is her power of supportive employment case manager, patient is to be DNR Comfort Care arrest. Discharge home. Charges/Coding Visit Charges Inpatient E&M: 22566 Subs Hosp L2
[2023-01-14 09:44] VITALS: BP 128/53; PULSE 74; RESP 15; TEMP 36.6; O2SAT 98
[2023-01-14] MEDS: Pantoprazole Sodium 40 MG Tablet PO (09:54)
[2023-01-14] MEDS: Ramipril 5 MG Capsule PO (09:54)
[2023-01-14 12:14] LABS: Hemoglobin 9.3 g/dL (12.0-15.0)
--- NOTE | 2023-01-14 13:35 | DCINST_ITS ---
Discharge Instructions Diet Discharge Diet: No restrictions Dressing / Incision Call your doctor if you observe: - (recurrent bloody BMS. ) Follow Up Care Test Results: Test results from this visit will be discussed in further detail at your follow- up appointment, if applicable. Discharge Plan Admission Admit Date/Time: 01/12/23 14:12 Primary Reason for Your Visit: GI bleed. Attending Provider: Sixto Braswell Primary Care Provider: Mello Fowler Instructions Additional Instructions / Restrictions: You had a GI bleed. You will stop your Plavix. Resume aspirin in 3-4 days. Discharge Orders/Prescriptions Prescriptions: Continued ramipril 5 mg capsule 5 mg PO DAILY ropinirole 0.25 mg tablet 0.5 mg PO QHS Rx Instructions: administer 1-3 hours before bedtime omeprazole 40 MG capsule 40 mg PO DAILY Patient Comments: STOMACH metformin 500 MG tablet 500 mg PO DAILY donepezil 5 MG tablet 10 mg PO QHS cholecalciferol (vitamin D3) 1,000 UNIT capsule 1,000 unit PO DAILY cinnamon bark 500 MG capsule 1,000 mg PO DAILY atorvastatin 80 MG tablet 80 mg PO QHS Qty: 30 0RF sbwupxli-xrh-HU-lycopen-lutein 1 EACH tablet 1 ea PO BID Vitamin C 1 tab PO BID memantine 10 mg tablet 10 mg PO BID Patient Comments: TAKE 1 TABLET BY MOUTH TWICE DAILY modafinil 100 mg Tablet 200 mg PO DAILY glipizide 5 mg tablet 2.5 mg PO BID Patient Comments: TAKE 1/2 (ONE-HALF) TO 1 (ONE) TABLET BY MOUTH TWICE DAILY DIRECTED Rx Instructions: 2.5MG TO 5MG BID UD Creon 36,000-114,000- 180,000 unit capsule,delayed release(DR/EC) See Rx Instructions PO .COMPLEX Qty: 320 11RF Rx Instructions: take 1-2 with snacks and 2-3 with meals Held aspirin 81 mg Tablet,Chewable 81 mg PO BREAKFAST Qty: 30 1RF Hold Instructions: Resume on 01/18/23. Discontinued clopidogrel 75 MG tablet 75 mg PO DAILY Qty: 30 0RF Hold Instructions: Resume on 09/16/21. naproxen sodium 220 MG capsule 220 mg PO BID Referrals / Follow Up: Mello Fowler DO [Primary Care Provider] - Within 2 Weeks Disposition Disposition (needs filled in before D/C Order can be placed): Home, Self Care
[2023-01-14 13:40] VITALS: BP 130/55; PULSE 99; RESP 15; TEMP 36.6; O2SAT 97
--- NOTE | 2023-01-14 13:41 | PCM.DC.SUM ---
Providers Date of Admission: 01/12/23 Primary Care Physician: Dr. Mello Fowler, DO Consultations 01/12/23 16:57 Consult: Gastroenterology Routine Consulting Provider: [facility] Reason for Consult: GI bleed EMERGENT Consult: No MD Notified: Yes Date Notified: 01/12/23 Time Notified: 14:17 Method of Notification: ED Physician Initiated Reason For Visit: GI BLEED Diagnosis Discharge Diagnosis (1) GI bleed: Status: Acute Code(s): K92.2 - Gastrointestinal hemorrhage, unspecified Qualifiers: GI bleed type/associated pathology: diverticulosis Qualified Code(s): K57.91 - Diverticulosis of intestine, part unspecified, without perforation or abscess with bleeding Plan: Resolved Suspected due to diverticular bleed. CAT scan showed sigmoid diverticulosis. Hold aspirin and clopidogrel for now. Clear liquid diet Seen by GI, recommending to hold antiplatelets for now. No intervention at this time. (2) Delirium: Status: Acute Code(s): R41.0 - Disorientation, unspecified Plan: Hypoactive This is in a patient with ongoing dementia and has had history of stroke. Nothing focal to suggest stroke at this time. Head CT has been ordered (3) Acute blood loss anemia: Status: Acute Code(s): D62 - Acute posthemorrhagic anemia Plan: Hg went from 10.1 to 8.5 (had been 11.3 in September) Today, it is 9. Monitor No indication for TF at this time. (4) CVA (cerebral vascular accident): Status: Acute Code(s): I63.9 - Cerebral infarction, unspecified Qualifiers: CVA mechanism: thrombosis Precerebral and cerebral artery: unspecified precerebral artery Qualified Code(s): I63.00 - Cerebral infarction due to thrombosis of unspecified precerebral artery Plan: Chronic. No acute concerns. I reviewed neuro consult from 09/18/22. The neurologist did not feel the CVA identified was causing her neurological symptoms at that time, but more likely progression of dementia. She had been on clopidogrel at that time. Aspirin was later added. Given the severe GI bleed, advanced dementia, the risk of dual antiplatelet therapy outweigh the risks. Will resume ASA in 72 hours (96 hours after last bleed). No additional clopidogrel. Plan Chronic conditions Dementia: Hold memantine as well as donezepil for now given the delirium. Sjogren's VTE prophylaxis with SCDs. Chemical prophylaxis contraindicated in light of GI bleed. CODE STATUS: Addressed with the patient's , who is her power of deputy prosecuting attorney, patient is to be DNR Comfort Care arrest. Discharge home. Medications at Discharge Home Medications omeprazole 40 mg capsule,delayed release 40 mg PO DAILY GERD 01/06/14 cholecalciferol (vitamin D3) 25 mcg (1,000 unit) capsule 1,000 unit PO DAILY supplement 08/28/16 donepezil 5 mg tablet 10 mg PO QHS memory 08/28/16 metformin 500 mg tablet 500 mg PO DAILY blood sugar 08/28/16 cinnamon bark 500 mg capsule 1,000 mg PO DAILY supplement 11/30/17 atorvastatin 80 mg tablet 80 mg PO QHS #30 tabs 12/03/17 olisfczy-zgx-kgemb acid 0.4 mg-lycopene 300 mcg-lutein 250 mcg tablet 1 ea PO BID supplement 12/03/18 Vitamin C 1 tab PO BID 06/08/19 memantine 10 mg tablet 10 mg PO BID Check with primary doctor 09/11/21 ramipril 5 mg capsule 5 mg PO DAILY Check with primary doctor 01/11/22 ropinirole 0.25 mg tablet 0.5 mg PO QHS Check with primary doctor 01/11/22 modafinil 100 mg tablet 200 mg PO DAILY Check with primary doctor 09/16/22 aspirin 81 mg chewable tablet 81 mg PO BREAKFAST #30 tabs 09/20/22 itgvlr-ccakadxz-edasypc 36,000-114,000-180,000 unit capsule,delay rel (Creon) See Rx Instructions PO .COMPLEX #320 caps 10/13/22 glipizide 5 mg tablet 2.5 mg PO BID DM 01/12/23 Hospital Course Operations None Procedures None Summary of Care Provided Minutes Spent on Discharge: 32 Hospital Course: Presents with GI bleed. Patient presented with adalberto bleeding. Conservative measures were entertained as this was felt to be diverticular. Her aspirin and clopidogrel were held. Patient had another bout after being admitted but remained stable. Hemoglobin did remain stable and did not require any transfusion. Patient does have advanced dementia and has issues with delirium. Patient was admitted with a stroke back in September and was recommendation by neurology at that time that her stroke at that time was not contributing to her acute mental status change. They did recommend goals of care. Patient will be held off on her Plavix moving forward as the risks outweigh the benefits. Patient will resume her aspirin in about 3 to 4 days. Patient was seen by gastroenterology here and given her advanced dementia was deemed not a candidate for any additional interventions. Medical Records Data Medical Nutrition Assessment Dietitian: Malnutrition Criteria Met Start: 01/13/23 15:15 Freq: Status: Active Protocol: Document 01/13/23 15:16 AMPAROUsha (Rec: 01/13/23 15:16 [facility] [id number]) Nutrition Malnutrition Evidence of Malnutrition Exists Yes Malnutrition (severe): Chronic Evidenced By Weight Loss (Severe),Physical Changes (Moderate),Physical Changes (Severe) Clinical Problem Chronic Disease or Condition Related Malnutrition Etiology related to physiological changes increasing nutrient needs and/or limiting oral intakes Signs/Symptoms as evidenced by significant unintentional weight loss of 12.9% in ~4 months and moderate to severe fat and muscle wasting per NFPA findings. Status Active Problem Recommendation Dietitian Recommendations/Changes Recommend Ensure Clear Apple 3x/day with meals to help increase oral intakes and limit further weight loss while on Clear Liquids. Recommend diet advancement when appropriate to Transitional. Will continue following the pt and monitoring oral intakes. Weight / BMI Weight Weight: 73.5 kg Body Mass Index (BMI) 23.2 ABG / Lab / Microbiology Data 01/14/23 12:04 01/14/23 05:30 Laboratory: Laboratory Results - last 24 hr 01/13/23 17:45: Hgb 9.1 L, Hct 27.3 L 01/14/23 05:30: WBC 7.5, RBC 2.89 L, Hgb 9.0 L, Hct 26.9 L, MCV 93.1, MCH 31.1, MCHC 33.5, RDW Std Deviation 44.9 H, RDW Coeff of Marcio 13.2, Plt Count 197, MPV 10.2, Immature Gran % (Auto) 0.400, Neut % (Auto) 54.5, Lymph % (Auto) 31.1, [place] % (Auto) 9.1, Eos % (Auto) 3.6, Baso % (Auto) 1.3 H, Absolute Neuts (auto) 4.1, Absolute Lymphs (auto) 2.33, Nucleated RBC % 0, Sodium 143, Potassium 3.8, Chloride 114 H, Carbon Dioxide 25.0, Anion Gap 4 L, BUN 16, Creatinine 0.88, Estim Creat Clear Calc 49.62, Est GFR (MDRD) Af Amer 78, Est GFR (MDRD) Non-Af 64, BUN/Creatinine Ratio 18.1, Glucose 109 H, Calcium 8.6 01/14/23 12:04: Hgb 9.3 L Microbiology: Microbiology 01/12/23 15:04 Stool Stool Lactoferrin - Final 01/12/23 15:04 Stool Enteric Bacteriology - Final 01/12/23 15:04 Stool C. difficile DNA Amplification - Final 01/12/23 12:22 Stool Stool Occult Blood (JIMI) - Final Occult Blood Positive D/C Instructions Discharge Diet: No restrictions Call your doctor if you observe: - (recurrent bloody BMS. ) Meaningful Use Info Meaningful Use Diagnoses (Choose all that apply): None applicable Discharge Plan Admission Admit Date/Time: 01/12/23 14:12 Primary Reason for Your Visit: GI bleed. Attending Provider: Sixto Braswell Primary Care Provider: Mello Fowler Instructions Additional Instructions / Restrictions: You had a GI bleed. You will stop your Plavix. Resume aspirin in 3-4 days. Discharge Orders/Prescriptions Prescriptions: Continued ramipril 5 mg capsule 5 mg PO DAILY ropinirole 0.25 mg tablet 0.5 mg PO QHS Rx Instructions: administer 1-3 hours before bedtime omeprazole 40 MG capsule 40 mg PO DAILY Patient Comments: STOMACH metformin 500 MG tablet 500 mg PO DAILY donepezil 5 MG tablet 10 mg PO QHS cholecalciferol (vitamin D3) 1,000 UNIT capsule 1,000 unit PO DAILY cinnamon bark 500 MG capsule 1,000 mg PO DAILY atorvastatin 80 MG tablet 80 mg PO QHS Qty: 30 0RF kebzaxeg-hle-NK-lycopen-lutein 1 EACH tablet 1 ea PO BID Vitamin C 1 tab PO BID memantine 10 mg tablet 10 mg PO BID Patient Comments: TAKE 1 TABLET BY MOUTH TWICE DAILY modafinil 100 mg Tablet 200 mg PO DAILY glipizide 5 mg tablet 2.5 mg PO BID Patient Comments: TAKE 1/2 (ONE-HALF) TO 1 (ONE) TABLET BY MOUTH TWICE DAILY DIRECTED Rx Instructions: 2.5MG TO 5MG BID UD Creon 36,000-114,000- 180,000 unit capsule,delayed release(DR/EC) See Rx Instructions PO .COMPLEX Qty: 320 11RF Rx Instructions: take 1-2 with snacks and 2-3 with meals Held aspirin 81 mg Tablet,Chewable 81 mg PO BREAKFAST Qty: 30 1RF Hold Instructions: Resume on 01/18/23. Discontinued clopidogrel 75 MG tablet 75 mg PO DAILY Qty: 30 0RF Hold Instructions: Resume on 09/16/21. naproxen sodium 220 MG capsule 220 mg PO BID Referrals / Follow Up: Mello Fowler DO [Primary Care Provider] - Within 2 Weeks Disposition Disposition (needs filled in before D/C Order can be placed): Home, Self Care Charges/Coding Visit Charges Inpatient E&M: 84932 Disch Hosp >30min
== END 2023-01-14 14:37 | disposition home or self-care (01) | DRG 378 ==
LOC: ED 13:25 → PCU 13:43
PROVIDERS: Emergency Provider Emergency Medicine; PCP Family Medicine
DX: K57.31 Diverticulosis of large intestine without perforation or abscess with bleeding (principal); D62 Acute posthemorrhagic anemia; D63.1 Anemia in chronic kidney disease; E11.22 Type 2 diabetes mellitus with diabetic chronic kidney disease; F02.80 Dementia in other diseases classified elsewhere, unspecified severity, without behavioral disturbance, psychotic disturbance, mood disturbance, and anxiety; M35.00 Sjogren syndrome, unspecified; G30.9 Alzheimer's disease, unspecified; N18.30 Chronic kidney disease, stage 3 unspecified; I69.318 Other symptoms and signs involving cognitive functions following cerebral infarction; K21.9 Gastro-esophageal reflux disease without esophagitis; Z79.82 Long term (current) use of aspirin; Z79.84 Long term (current) use of oral hypoglycemic drugs; Z79.899 Other long term (current) drug therapy; Z79.02 Long term (current) use of antithrombotics/antiplatelets
CPT/HCPCS: 36415; 70450; 74176; 80048; 80053; 81001; 82274; 83630; 85014; 85018; 85025; 85610; 85730; 86850; 86900; 86901; 87177; 87209; 87493; 87506; 93005; 97163; 97167; 97530; 97535; 97802; 99285; J7030; A4216

== ENCOUNTER → 2023-01-24 | Outpatient (CLI) | payer MEDICARE, OTHER, SELFPAY ==
[2023-01-24 12:46] LABS: Absolute Lymphocyte Count 2.27 X10^3/uL (0.83-4.51); Absolute Neutrophil Count 3.6 X10^3/uL (2.0-7.7); Basophil# 0.06 X10^3/uL; Basophil% 0.9 % (0-1); Eosinophil# 0.15 X10^3/uL; Eosinophils% 2.3 % (0-5); Hematocrit 27.6 % (37-47); Hemoglobin 8.9 g/dL (12.0-15.0); Lymphocyte # 2.27 X10^3/ul (0.83-4.51); Lymphocyte % 34.1 % (19-41); Mean Corp Hgb Conc 32.2 g/dL (32-36); Mean Corpuscular Hgb 31.2 pg (27.0-32.0); Mean Corpuscular Volume 96.8 fL (81-99); Mean Platelet Vol. 10.5 fl (6.2-12.0); Monocyte# 0.56 X10^3/uL; Monocyte% 8.4 % (0-10); NRBC Flagged by Analyzer 0 % (0-5); Neutrophil # 3.59 X10^3/uL (2.7-7.7); Neutrophil % 53.8 % (47-70); Platelet Count 242 K/mm3 (150-450); RBC Distribution Width CV 13.9 % (11.6-14.6); RBC Distribution Width SD 49.1 fl (35.1-43.9); Red Blood Count 2.85 M/mm3 (4.2-5.4); White Blood Count 6.7 K/mm3 (4.4-11.0)
[2023-01-24 13:19] LABS: Vitamin B12 1536 pg/mL (211-911)
[2023-01-24 13:45] LABS: Ferritin 66 ng/mL (8-252); Iron 41 ug/dL (50-170)
== END | disposition home or self-care (01) ==
LOC: BFHLAB 11:16
PROVIDERS: PCP Family Medicine; Referring Provider Family Medicine; Visit Provider Family Medicine
DX: D64.9 Anemia, unspecified (principal)
CPT/HCPCS: 36415; 82607; 82728; 83540; 85025

== ENCOUNTER → 2023-04-25 | Outpatient (CLI) | payer MEDICARE, OTHER, SELFPAY ==
[2023-04-25 15:19] LABS: Absolute Lymphocyte Count 1.81 X10^3/uL (0.83-4.51); Absolute Neutrophil Count 5.5 X10^3/uL (2.0-7.7); Basophil# 0.08 X10^3/uL; Eosinophil# 0.18 X10^3/uL; Eosinophils% 2.2 % (0-5); Hematocrit 35.1 % (37-47); Hemoglobin 11.4 g/dL (12.0-15.0); Lymphocyte # 1.81 X10^3/ul (0.83-4.51); Lymphocyte % 21.8 % (19-41); Mean Corp Hgb Conc 32.5 g/dL (32-36); Mean Corpuscular Hgb 29.9 pg (27.0-32.0); Mean Corpuscular Volume 92.1 fL (81-99); Mean Platelet Vol. 10.9 fl (6.2-12.0); Monocyte% 8.4 % (0-10); NRBC Flagged by Analyzer 0 % (0-5); Neutrophil # 5.49 X10^3/uL (2.7-7.7); Neutrophil % 66.2 % (47-70); Platelet Count 251 K/mm3 (150-450); RBC Distribution Width CV 12.7 % (11.6-14.6); RBC Distribution Width SD 42.7 fl (35.1-43.9); Red Blood Count 3.81 M/mm3 (4.2-5.4); White Blood Count 8.3 K/mm3 (4.4-11.0)
[2023-04-25 15:48] LABS: Anion Gap 7 (5-15); BUN 21 mg/dL (7-18); BUN/Creat Ratio 20.4 RATIO (10-20); Calcium,Total 9.6 mg/dL (8.5-10.1); Chloride 101 mmol/L (98-107); Creatinine, Serum 1.03 mg/dL (0.55-1.02); EST Glomerular Filtration Rate 54 mL/min (>60); Est Glom Filt Rate - Afr Amer 65 mL/min (>60); Ferritin 46 ng/mL (8-252); Glucose 101 mg/dL (74-106); Iron 44 ug/dL (50-170); Sodium Level 133 mmol/L (136-145)
== END | disposition home or self-care (01) ==
LOC: BFHLAB 13:11
PROVIDERS: PCP Family Medicine; Referring Provider Family Medicine; Visit Provider Family Medicine
DX: N39.0 Urinary tract infection, site not specified (principal); R53.1 Weakness; D64.9 Anemia, unspecified
CPT/HCPCS: 36415; 80048; 82728; 83540; 85025

== ENCOUNTER → 2023-04-27 | Outpatient (CLI) | payer MEDICARE, OTHER, SELFPAY | END | disposition home or self-care (01) | LOC: MTLAB 13:54 | PROVIDERS: PCP Family Medicine; Referring Provider Family Medicine; Visit Provider Family Medicine | DX: R53.1 Weakness (principal); N39.0 Urinary tract infection, site not specified; D64.9 Anemia, unspecified | CPT/HCPCS: 87077; 87086; 87088; 87186 ==

== ENCOUNTER 2023-06-07 22:33 | Emergency (ER) | payer MEDICARE, OTHER, SELFPAY ==
--- NOTE | 2023-06-07 | RAD_ITS ---
INDICATION: pain EXAMINATION/TECHNIQUE: X-RAY - XR Chest 1 View AP portable. 11:56 PM COMPARISON: 09/16/2022 FINDINGS: LINES/DEVICES: None. LUNGS: No consolidation. No pneumothorax. MEDIASTINUM: Aorta is atherosclerotic. CARDIAC SILHOUETTE: Not enlarged. BONES AND SOFT TISSUES: Degenerative changes of the dorsal spine and shoulders. RAD/Chest 1 View (Portable) IMPRESSION: No evidence of active intrathoracic disease. Electronically Signed: Radha Dinh MD at 0:40 EST ,
[2023-06-07 22:33] VITALS: BP 161/87; PULSE 69; RESP 13; O2SAT 98
[2023-06-07 22:34] VITALS: BP 124/87; PULSE 77; RESP 16; TEMP 36.4; O2SAT 99; BMI 31.0
--- NOTE | 2023-06-07 23:19 | EX.ED.DYSGE1 ---
HPI History of Present Illness Chief Complaint: General Illness Informant: patient and spouse/S.O. Narrative Narrative: Patient presents via EMS with her . He states that she woke from sleep stating that she needed to go to the emergency room. He states she was implying that there was something wrong with her chest but was not holding or gripping her chest. Patient has Alzheimer's and cannot provide any history. Patient's blood sugar was 330 for EMS and states that is very high. He can only check it once a day and typically checks it first thing in the morning when she has been fasting. It is usually around 100 at that time. He does state that he gave her hot chocolate before bed. [facility] Medical History Alzheimer disease AMS (altered mental status) Anemia due to stage 3 chronic kidney disease Arthritis Bowel incontinence Chronic diarrhea CPAP (continuous positive airway pressure) dependence CVA (cerebral vascular accident) Dementia DM (diabetes mellitus), type 2 Exocrine pancreatic insufficiency Falls GERD (gastroesophageal reflux disease) GI bleed Hearing loss, left Hearing loss, right History of Sjogren's disease History of stroke Loose stools Mental status alteration Nausea and vomiting in adult Non-smoker Noninfective gastroenteritis and colitis, unspecified RLS (restless legs syndrome) TIA (transient ischemic attack) Type 2 diabetes mellitus without complications Varicose veins of leg with edema Home Medications omeprazole 40 mg capsule,delayed release 40 mg PO DAILY GERD 01/06/14 [History Last Taken 01/11/23] cholecalciferol (vitamin D3) 25 mcg (1,000 unit) capsule 1,000 unit PO DAILY supplement 08/28/16 [History Last Taken 01/11/23] donepezil 5 mg tablet 10 mg PO QHS memory 08/28/16 [History Last Taken 01/11/23] metformin 500 mg tablet 500 mg PO DAILY blood sugar 08/28/16 [History Last Taken 01/11/23] cinnamon bark 500 mg capsule 1,000 mg PO DAILY supplement 11/30/17 [History Last Taken 01/11/23] atorvastatin 80 mg tablet 80 mg PO QHS cholesterol #30 tabs 12/03/17 [Rx Last Taken 01/11/23] isanvgqs-yzb-ohstb acid 0.4 mg-lycopene 300 mcg-lutein 250 mcg tablet 1 ea PO BID supplement 12/03/18 [History Last Taken 01/11/23] memantine 10 mg tablet 10 mg PO BID mental health 09/11/21 [History Last Taken 01/11/23] ramipril 5 mg capsule 5 mg PO DAILY blood pressure 01/11/22 [History Last Taken 01/11/23] ropinirole 0.25 mg tablet 0.5 mg PO QHS restless legs 01/11/22 [History Last Taken 01/11/23] modafinil 100 mg tablet 200 mg PO DAILY sleepiness 09/16/22 [History Last Taken 01/11/23] aspirin 81 mg chewable tablet 81 mg PO BREAKFAST #30 tabs 09/20/22 [Rx Last Taken 01/11/23] akyofw-rgznovsz-ehebyim 36,000-114,000-180,000 unit capsule,delay rel (Creon) See Rx Instructions PO .COMPLEX supplement #320 caps 10/13/22 [Rx Last Taken 01/12/23] glipizide 5 mg tablet 2.5 mg PO BID DM 01/12/23 [History Last Taken 01/11/23] amoxicillin 500 mg-potassium clavulanate 125 mg tablet (Augmentin) 1 tab PO BID 7 days #14 tabs 06/03/23 [Rx Last Taken Unknown] acetaminophen 500 mg tablet (Tylenol Extra Strength) 500 mg PO Q4H PRN fever or pain 06/07/23 [History Last Taken Unknown] Allergy/AdvReac Type Severity Reaction Status Date / Time pollen extracts Allergy Intermediate PT UNSURE Verified 06/07/23 22:34 OF REACTION Family History Mother Alzheimer disease Brother Alzheimer disease Aunt Alzheimer disease Father Heart disease Surgical History H/O lumpectomy H/O: hysterectomy History of tonsillectomy Social History household members: spouse Smoking Status: Never smoker alcohol intake: never substance use type: does not use ROS ROS ED ROS Narrative Patient unable to provide review of systems secondary to her Alzheimer's dementia. states she has not had any recent cough or vomiting. She has chronic diarrhea. EXAM Physical Exam Const Vital Signs: 06/07/23 22:34 06/07/23 22:47 Temperature 97.6 F L Temperature Source Oral Pulse Rate 77 Respiratory Rate 16 Respiratory Effort Normal Respiratory Pattern Normal Blood Pressure 124/87 H Blood Pressure Mean 99 Pulse Ox 99 Oxygen Delivery Method Room Air Positive well nourished and well developed General Appearance ED: well developed HEENT Reports moist mucous membranes Chest Wall inspection of chest normal and palpation of chest normal Resp normal respiratory effort and clear to auscultation bilaterally Cardio regular rate and regular rhythm GI non-tender Auscultation: normoactive bowel sounds Palpation: soft Extremity normal to inspection Neuro Neuro Narrative: Moves all 4 extremities. Skin no rashes or lesions noted MDM MDM MDM Narrative Medical decision making narrative: Patient placed on playground monitor. IV line initiated. Labwork obtained to evaluate for leukocytosis, anemia, and electrolyte derangement. EKG obtained to evaluate for cardiac arrhythmia/ischemia. Chest x-ray obtained to evaluate for acute lung pathology, cardiac size, or mediastinal abnormality. History & Record Review Discussion w/independent historian: Significant other Lab Data Attestation: I reviewed the patient's lab results. Labs: Laboratory Results - last 24 hr 06/07/23 23:46 WBC 6.4 RBC 3.26 L Hgb 9.6 L Hct 29.5 L MCV 90.5 MCH 29.4 MCHC 32.5 RDW Std Deviation 44.2 H RDW Coeff of Marcio 13.2 Plt Count 77 L MPV 12.1 H Immature Gran % (Auto) 0.300 Neut % (Auto) 43.4 L Lymph % (Auto) 39.9 [place] % (Auto) 10.5 H Eos % (Auto) 4.8 Baso % (Auto) 1.1 H Absolute Neuts (auto) 2.8 Absolute Lymphs (auto) 2.56 Nucleated RBC % 0 Sodium 134 L Potassium 4.1 Chloride 102 Carbon Dioxide 27.0 Anion Gap 5 BUN 17 Creatinine 1.08 H Estim Creat Clear Calc 30.36 Est GFR (MDRD) Af Amer 62 Est GFR (MDRD) Non-Af 51 L BUN/Creatinine Ratio 15.7 Glucose 287 H Calcium 8.1 L Troponin I High Sens 9 Radiography Chest X-Ray - ED: 1 View, Read by ED Physician, Chronic Changes and No Infiltrates EKG Initial EKG: Attestation: I personally reviewed and interpreted this EKG as follows: Interpretation: Sinus Rhythm (Sinus rhythm at 74 bpm. No acute ischemia.) Treatment and Re-Evaluation :: BC was normal white count 6.4 with a hemoglobin 9.6. Differential is unremarkable. Chemistry studies are normal. Her glucose is elevated at 287. Troponin is normal at 9. Portable chest x-ray per my interpretation reveals chronic changes with no evidence of focal infiltrate. EKG is sinus rhythm with no evidence of ischemia. Test results are discussed with the patient's at bedside. He is reassured with the findings here. We have given her some IV fluids to help with her hyperglycemia. I did discuss with him that would rather let her blood sugar run a little high overnight then risk dropping her too low. He voices understanding and agreement. He will closely monitor her and they were encouraged to return for any concerns. Discharge Plan Triage Chief Complaint: General Illness ED Provider: Nikki Jacques Dx/Rx/DC Orders Clinical Impression: Agitation due to dementia, Hyperglycemia Instructions: ED Diabetic Hyperglycemia, ED CAREGIVER SUPPORT for DEMENTIA Prescriptions: No Action ramipril 5 mg capsule 5 mg PO DAILY ropinirole 0.25 mg tablet 0.5 mg PO QHS Hold Instructions: unsure if she still takes Rx Instructions: administer 1-3 hours before bedtime amoxicillin-pot clavulanate [Augmentin] 500-125 mg tablet 1 tab PO BID 7 Days Qty: 14 0RF Hold Instructions: only take if needed omeprazole 40 MG capsule 40 mg PO DAILY Patient Comments: STOMACH metformin 500 MG tablet 500 mg PO DAILY donepezil 5 MG tablet 10 mg PO QHS cholecalciferol (vitamin D3) 1,000 UNIT capsule 1,000 unit PO DAILY cinnamon bark 500 MG capsule 1,000 mg PO DAILY atorvastatin 80 MG tablet 80 mg PO QHS Qty: 30 0RF ydxhvjpw-mtc-ZZ-lycopen-lutein 1 EACH tablet 1 ea PO BID memantine 10 mg tablet 10 mg PO BID Patient Comments: TAKE 1 TABLET BY MOUTH TWICE DAILY modafinil 100 mg Tablet 200 mg PO DAILY aspirin 81 mg Tablet,Chewable 81 mg PO BREAKFAST Qty: 30 1RF Hold Instructions: Resume on 01/18/23. glipizide 5 mg tablet 2.5 mg PO BID Patient Comments: TAKE 1/2 (ONE-HALF) TO 1 (ONE) TABLET BY MOUTH TWICE DAILY DIRECTED Rx Instructions: 2.5MG TO 5MG BID UD acetaminophen [Tylenol Extra Strength] 500 mg tablet 500 mg PO Q4H PRN (Reason: fever or pain) Creon 36,000-114,000- 180,000 unit capsule,delayed release(DR/EC) See Rx Instructions PO .COMPLEX Qty: 320 11RF Rx Instructions: take 1-2 with snacks and 2-3 with meals Primary Care Provider: Mello Fowler Referrals: Mello Fowler, [Primary Care Provider] - As Needed Disposition Disposition: Home, Self Care
[2023-06-07] MEDS: 0.9% Normal Saline (1000mL) 1,000 ML 150 ML IV (23:50)
[2023-06-07 23:54] LABS: Absolute Lymphocyte Count 2.56 X10^3/uL (0.83-4.51); Absolute Neutrophil Count 2.8 X10^3/uL (2.0-7.7); Basophil# 0.07 X10^3/uL; Basophil% 1.1 % (0-1); Eosinophil# 0.31 X10^3/uL; Eosinophils% 4.8 % (0-5); Hematocrit 29.5 % (37-47); Hemoglobin 9.6 g/dL (12.0-15.0); Lymphocyte # 2.56 X10^3/ul (0.83-4.51); Lymphocyte % 39.9 % (19-41); Mean Corp Hgb Conc 32.5 g/dL (32-36); Mean Corpuscular Hgb 29.4 pg (27.0-32.0); Mean Corpuscular Volume 90.5 fL (81-99); Mean Platelet Vol. 12.1 fl (6.2-12.0); Monocyte# 0.67 X10^3/uL; Monocyte% 10.5 % (0-10); NRBC Flagged by Analyzer 0 % (0-5); Neutrophil # 2.78 X10^3/uL (2.7-7.7); Neutrophil % 43.4 % (47-70); POSITIVE COUNT YES; Platelet Count 77 K/mm3 (150-450); RBC Distribution Width CV 13.2 % (11.6-14.6); RBC Distribution Width SD 44.2 fl (35.1-43.9); Red Blood Count 3.26 M/mm3 (4.2-5.4); White Blood Count 6.4 K/mm3 (4.4-11.0)
[2023-06-07 23:56] LABS: Differential Indicated SCAN CRITERIA MET
[2023-06-08 00:11] LABS: Anion Gap 5 (5-15); BUN 17 mg/dL (7-18); BUN/Creat Ratio 15.7 RATIO (10-20); Calcium,Total 8.1 mg/dL (8.5-10.1); Chloride 102 mmol/L (98-107); Creatinine, Serum 1.08 mg/dL (0.55-1.02); EST Glomerular Filtration Rate 51 mL/min (>60); Est Glom Filt Rate - Afr Amer 62 mL/min (>60); Estimated Creatinine Clearance 30.36 ml/min; Glucose 287 mg/dL (74-106); Potassium 4.1 mmol/L (3.5-5.1); Sodium Level 134 mmol/L (136-145); Troponin-I HS 9 pg/mL (3.0-54.0)
[2023-06-08 00:26] VITALS: BP 161/87; PULSE 72; RESP 16; O2SAT 97
[2023-06-08 00:27] LABS: Platelet Estimate MOD DEC (ADEQ)
== END 2023-06-08 00:35 | disposition home or self-care (01) ==
PROVIDERS: Emergency Provider Emergency Medicine; PCP Family Medicine; Visit Provider Emergency Medicine
DX: E11.65 Type 2 diabetes mellitus with hyperglycemia (principal); G30.9 Alzheimer's disease, unspecified; F02.811 Dementia in other diseases classified elsewhere, unspecified severity, with agitation; E11.22 Type 2 diabetes mellitus with diabetic chronic kidney disease; N18.30 Chronic kidney disease, stage 3 unspecified; D63.1 Anemia in chronic kidney disease; Z79.84 Long term (current) use of oral hypoglycemic drugs; Z79.82 Long term (current) use of aspirin; Z79.899 Other long term (current) drug therapy
CPT/HCPCS: 71045; 80048; 84484; 85025; 93005; 96360; 99285; J7030; A4216

== ENCOUNTER → 2023-09-28 | Outpatient (CLI) | payer MEDICARE, OTHER, SELFPAY | END | disposition home or self-care (01) | PROVIDERS: PCP Family Medicine; Visit Provider Family Medicine | DX: R30.0 Dysuria (principal) | CPT/HCPCS: 87077; 87086; 87088; 87186 ==

== ENCOUNTER → 2024-01-16 | Outpatient (CLI) | payer MEDICARE, OTHER, SELFPAY ==
[2024-01-16 17:39] LABS: Mucous, Urine 0 SEEN /hpf (<or=2+); Red Blood Cells-Urine 0 SEEN /hpf (0-5)
[2024-01-16 18:00] LABS: Color, Urine Yellow (Yellow); Glucose, Dipstick Normal (Normal); Ketone-Dipstick Negative (Negative); Leukocyte Esterase-Dipstick 25 /ul (Negative); Nitrite-Dipstick Negative (Negative); Occult Blood-Urine Negative /ul (Negative); Protein-Dipstick Negative (Negative); Specific Gravity, Urine 1.015 (1.002-1.030); Urine Bilirubin Dipstick Negative (Negative); Urine Clarity Clear (Clear); Urine Urobilinogen Normal (Normal)
[2024-01-16 18:05] LABS: Bacteria 1+ /hpf (None Seen); Squamous Epithelial Cells - UA 0-5 SEEN /hpf (5-10); White Blood Cells 0-5 SEEN /hpf (0-5)
== END | disposition home or self-care (01) ==
PROVIDERS: PCP Family Medicine; Referring Provider Physician Assistant; Visit Provider Physician Assistant
DX: N39.0 Urinary tract infection, site not specified (principal)
CPT/HCPCS: 81001; 87086; 87088; 87186

== ENCOUNTER 2024-05-23 15:00 | Outpatient (RCR) | payer MEDICARE, OTHER, SELFPAY ==
--- NOTE | 2024-02-27 15:49 | HP.PTEVAL_ITS ---
Patient's Visit Information Visit Information Visit Information: SALLY HANCOCK is a 89 year old F referred to Physical Therapy by KALEIGH Liu with a diagnosis of General Debility. Date of Evaluation: 02/07/24 Physical Therapist: Will Cramer DPT Visit Plan Frequency: 1x/Week Duration: 6 Weeks Plan: Start with BLE strengthening including sit to stand, heel raises, hip strengthening. Progress endurance and functional strengthening as tolerated. Progress HEP. I gave her exercises today, pt. spouse wants to trial her HEP for the next few weeks then come back to PT to update. Subjective Subjective: Pt is here today for her initial evaluation with diagnosis of general debility. Pt. arrives with spouse with use of a FWW. Pt. comes in with spouse. He reports she has dementia. Spouse was there to help with the subjective. Spouse reports Sally sleeps a lot. She is having increased difficulty with walking and fatigues rapidly. No falls, except she did slide out of bed one night. Spouse in available for most of the day and helps her a lot. She likes taking car rides. Overall she fatigues quickly. Physician would like her to work on overall strengthening of her LEs and improve her stability. No pain noted. Objective Objective: POSTURE: Pt. has fairly flexed posture in sitting and standing. Overall slouched posture. PALPATION: Pt. has no tenderness with palpation of BLEs. NEURO: Pt. has normal sensation in BLEs and normal DTR bilateral. Pt. is able to rise on toes, but difficulty rocking back on heels. ROM: pt. has tightness in B HS and mod stiffness throughout lumbar spine. MMT: RLE: knee: ext 15.1#, flexion 13.5#; hip: flexion 6.9#. LLE: knee: ext 14.3#, flexion 12.9#, hip: flexion 7.3#. GAIT: Pt. ambulates with FWW with CBA 1x137' prior to fatigue. TUsec with FWW. 30 sec sit to stand rep test: 5 without use of UEs. Balance/Special Test Scores Lower Extremity Functional Score: 0 Goals Goal 1:: LTG: Pt. to be I with HEP for BLE strengthening. Goal Time Frame: 4-6 Weeks Goal 2:: LTG: PT. to complete 30sec sit to stand rep test with 8 reps indicating increased BLE strength. Goal Time Frame: 4-6 Weeks Goal 3:: LTG: pt. to complete TUG with time less than 25seconds indicating improved stability with functional mobility. Goal Time Frame: 4-6 Weeks Goal 4:: LTG: pt. to have increased BLE strength increased by 5# throughout. Goal Time Frame: 4-6 Weeks Rehabilitation Potential Physical Therapy Diagnosis: Pt. has signs and symptoms consistent with general debility with dementia. Pt. has had an over decline over the past few years. She has marked weakness in BLEs and difficulty with gait. Pt. would benefit from PT to address the above limitations. Rehabilitation Potential: Good Anticipated Interventions Patient/Client Instruction: Educate patient on: Condition, Plan of Care, Risk Factors and Benefits of Fitness Program For the Purpose of:: To facilitate caregiver knowledge, To improve self management, To prevent re-injury, To improve ability to perform tasks related to life management and To improve tolerance to ADL's Therapeutic Exercise to Include: Strength training, Power training, Endurance training and Balance training For the Purpose of:: To improve muscle performance and motor function, To improve ability to perform ADL's, To increase tolerance to activity/condition/position, To improve performance and independence with ADL's, To improve health of tissue, To decrease soft tissue restriction, To increase flexibility/ROM, To improve balance and To improve safety with gait Text: Thank you for the opportunity to evaluate your patient. For Medicare and Medicare HMO plans, please review the plan of care and approve it. It will need to be FAXED BACK to us at [phone] for Medicare purposes. For Medicare only, by signing this I certify the plan of care. Please let me know if there are questions or concerns regarding this plan of care. Physician Signature: Date:
== END 2024-05-23 19:00 | disposition home or self-care (01) ==
LOC: PT 15:00
PROVIDERS: PCP Family Medicine; Visit Provider Nurse Practitioner Family
DX: R53.1 Weakness (principal)
CPT/HCPCS: 97110; 97116; 97161

== ENCOUNTER 2024-06-28 15:07 | Emergency (ER) | payer MEDICARE, OTHER, SELFPAY ==
[2024-06-28 15:08] VITALS: BP 179/89; PULSE 61; RESP 15; TEMP 36.2; O2SAT 97
[2024-06-28 15:10] VITALS: BP 179/89; PULSE 60; RESP 15; TEMP 36.2; O2SAT 97
[2024-06-28 15:30] VITALS: BMI 32.4
--- NOTE | 2024-06-28 15:31 | CT_ITS ---
INDICATION: Right lower quadrant pain. PATIENT HAS ALZHEIMER''S , SCAN X 2 UNABLE TO FOLLOWING BREATHING INSTRUCTIONS EXAMINATION: CT ABDOMEN AND PELVIS WITHOUT CONTRAST - CT Abdomen And Pelvis W/O Contrast Injection TECHNIQUE: Helically acquired images were obtained of the abdomen and pelvis without oral or IV contrast. The protocol utilizes one or more of the following dose reduction techniques: automated exposure control, adjustment of mA and/or kV according to patient size,and/or use of iterative reconstruction technique. IV Contrast dosage and agent: None. Oral contrast: None. RADIATION DOSAGE (If Supplied By Facility): CTDIvol = ( 18.31 ) mGy, DLP = ( 1931.17 ) mGycm COMPARISON: January 12, 2023 FINDINGS: There is motion artifact degrading anatomic detail. LOWER CHEST: There is minimal bibasilar atelectasis and/or scarring. There are coronary artery calcifications. There are right hilar calcified lymph nodes. The lack of intravenous contrast limits evaluation of solid visceral organs. LIVER: Homogeneous. No focal mass. GALLBLADDER AND BILIARY TREE: No calcified gallstones. No gallbladder distension or wall edema. No intra- or extrahepatic biliary ductal dilation. PANCREAS: No focal cystic or solid mass. SPLEEN: Normal size without focal cystic or solid mass. ADRENAL GLANDS: No nodules. KIDNEYS AND URETERS: Normal renal size and position. No hydronephrosis. PERITONEUM: No ascites or free air. No other fluid collection. BOWEL: No stomach or bowel distension. There is a duodenal diverticulum. There are diverticula arising from the colon. There is nonvisualization of the appendix No focal inflammatory change. LYMPH NODES: No enlarged mesenteric or retroperitoneal lymph nodes. VESSELS: Aorta is non-dilated. There are vascular calcifications. URINARY BLADDER: Unremarkable. REPRODUCTIVE ORGANS: No pelvic masses. ABDOMINAL WALL: No discrete abdominal or pelvic wall hernia. BONES: There are degenerative changes of the lumbar spine. There is a grade 1 anterior spondylolisthesis of L4 on L5. CT/Abdomen/Pelvis without Cont IMPRESSION: Limited examination secondary to the lack of intravenous contrast and motion artifact. Colonic diverticulosis. Atherosclerosis. Multilevel degenerative changes of the visualized thoracic and lumbar spine. Grade 1 anterior spondylolisthesis of L4 on L5. Electronically Signed: Lauren Sahni MD at 16:10 EST ,
--- NOTE | 2024-06-28 15:31 | ED.VIS.GI ---
HPI HPI - GI History of Present Illness Chief Complaint: Abd Pain Informant: patient and spouse/S.O. Narrative Narrative: 89-year-old female with significant Alzheimer's dementia brought by because she complained of pain in her right lower quadrant about 30 minutes ago. She cannot provide any history. She has had no vomiting, she chronically has some urinary incontinence but nothing unusual today. She ate earlier without any problem. [facility] Medical History GERD (gastroesophageal reflux disease) TIA (transient ischemic attack) GI bleed Alzheimer disease Exocrine pancreatic insufficiency Falls Mental status alteration Loose stools AMS (altered mental status) History of Sjogren's disease RLS (restless legs syndrome) Varicose veins of leg with edema Bowel incontinence Chronic diarrhea Anemia due to stage 3 chronic kidney disease Noninfective gastroenteritis and colitis, unspecified Hearing loss, left Hearing loss, right Non-smoker CPAP (continuous positive airway pressure) dependence History of stroke Type 2 diabetes mellitus without complications Arthritis Dementia CVA (cerebral vascular accident) Nausea and vomiting in adult DM (diabetes mellitus), type 2 Home Medications ?Medication ?Instructions ?Recorded ?Last Taken ?Type omeprazole 40 mg capsule,delayed 40 mg PO DAILY GERD 01/06/14 01/11/23 History release cholecalciferol (vitamin D3) 25 1,000 unit PO DAILY supplement 08/28/16 01/11/23 History mcg (1,000 unit) capsule donepezil 5 mg tablet 10 mg PO QHS memory 08/28/16 01/11/23 History metformin 500 mg tablet 500 mg PO DAILY blood sugar 08/28/16 01/11/23 History cinnamon bark 500 mg capsule 1,000 mg PO DAILY supplement 11/30/17 01/11/23 History atorvastatin 80 mg tablet 80 mg PO QHS cholesterol #30 tabs 12/03/17 01/11/23 Rx quruzlhe-bmd-ehorz acid 0.4 1 ea PO BID supplement 12/03/18 01/11/23 History mg-lycopene 300 mcg-lutein 250 mcg tablet memantine 10 mg tablet 10 mg PO BID mental health 09/11/21 01/11/23 History ramipril 5 mg capsule 5 mg PO DAILY blood pressure 01/11/22 01/11/23 History ropinirole 0.25 mg tablet 0.5 mg PO QHS restless legs 01/11/22 01/11/23 History modafinil 100 mg tablet 200 mg PO DAILY sleepiness 09/16/22 01/11/23 History aspirin 81 mg chewable tablet 81 mg PO BREAKFAST #30 tabs 09/20/22 01/11/23 Rx glipizide 5 mg tablet 2.5 mg PO BID DM 01/12/23 01/11/23 History acetaminophen 500 mg tablet 500 mg PO Q4H PRN fever or pain 06/07/23 Unknown History (Tylenol Extra Strength) mlksyw-ewnlozot-lhqexdr See Rx Instructions PO .COMPLEX 07/02/23 Unknown Rx 36,000-114,000-180,000 unit supplement #160 caps capsule,delay rel (Creon) nitrofurantoin 100 mg PO Q12 #10 CAPSULES 06/28/24 Unknown Rx monohydrate/macrocrystals 100 mg capsule Allergy/AdvReac Type Severity Reaction Status Date / Time pollen extracts Allergy Intermediate PT UNSURE Verified 06/28/24 15:11 OF REACTION Family History Mother Alzheimer disease Brother Alzheimer disease Aunt Alzheimer disease Father Heart disease Surgical History H/O lumpectomy H/O: hysterectomy History of tonsillectomy Social History household members: spouse Smoking Status: Never smoker alcohol intake: never substance use type: does not use ROS ROS ED Review of Systems ROS Unobtainable: due to mental condition Cardiovascular Cardiovascular: Denies chest pain Gastrointestinal Gastrointestinal: Reports abdominal pain; Denies vomiting Musculoskeletal Musculoskeletal: Denies back pain Neurologic Neurologic: Denies headache(s) EXAM Physical Exam Const Vital Signs: 06/28/24 15:08 06/28/24 15:10 06/28/24 16:10 Temperature 97.2 F L 97.2 F L 97.8 F Temperature Source Temporal Temporal Oral Pulse Rate 61 60 88 Respiratory Rate 15 15 16 Blood Pressure 179/89 H 179/89 H 132/67 H Blood Pressure Mean 119 119 88 Pulse Ox 97 97 98 Oxygen Delivery Method Room Air Room Air Room Air Positive well nourished and well developed General Appearance ED: well developed and NAD HEENT Reports moist mucous membranes normocephalic and atraumatic Eyes PERRL and EOMs intact bilaterally Neck full ROM and supple Resp normal respiratory effort and clear to auscultation bilaterally Cardio regular rate, regular rhythm and no murmurs GI non-distended GI Narrative: Mild tenderness right lower quadrant only. No guarding or rebound. No other areas of tenderness. Auscultation: normoactive bowel sounds Palpation: soft Back/Spine no CVA tenderness General Back: other FROM Extremity normal to inspection General Extremety ED: Negative for edema, pulses abnormal or tenderness General Extremity: Negative for edema or pulses abnormal Neuro CN's II-XII intact bilaterally and no sensory deficits noted Neuro Narrative: At baseline per Sensorium / Orientation: awake, alert and orientation impaired Motor Exam: strength 5/5 throughout Skin no rashes or lesions noted and no wounds MDM MDM MDM Narrative Medical decision making narrative: Given the patient's advanced dementia very difficult to obtain information and ROS or timing of her symptoms. Given all of this in the differential including appendicitis, kidney stone, ruptured AAA, urinary tract processes, other small bowel processes, CT was obtained in addition to labs and urinalysis. I reviewed the images and the result which I agree with, basically the CT is unremarkable. I did not use IV contrast due to her age, and because since ureterolithiasis was in the differential would be better visualized without contrast. I do not think she needs to have a repeat contrasted scan. Her labs are unremarkable and her urine is consistent with infection. Unclear if she is having urinary symptoms or not because of her dementia so we will treat empirically as in the culture. Looking at old records it appears she has had urinary infections in the past and her last culture was earlier in the year and showed E. coli that was mostly sensitive except for maria victoria quinolone and sulfa resistance. Will start her on Macrobid and send a new culture, comfortable taking her home. She is not septic and has normal vital signs and is doing well clinically right now. Lab Data Attestation: I reviewed the patient's lab results. Labs: Laboratory Results - last 24 hr 06/28/24 06/28/24 15:39 16:00 WBC 8.0 RBC 3.54 L Hgb 11.2 L Hct 33.9 L MCV 95.8 MCH 31.6 MCHC 33.0 RDW Std Deviation 46.5 H RDW Coeff of Marcio 13.2 Plt Count 208 MPV 10.4 Immature Gran % (Auto) 0.600 Neut % (Auto) 55.7 Lymph % (Auto) 30.6 [place] % (Auto) 8.5 Eos % (Auto) 3.7 Baso % (Auto) 0.9 Absolute Neuts (auto) 4.5 Absolute Lymphs (auto) 2.45 Nucleated RBC % 0 Sodium 139 Potassium 4.4 Chloride 107 Carbon Dioxide 30.0 Anion Gap 1 L BUN 28 H Creatinine 1.05 H Estim Creat Clear Calc 37.79 Est GFR (MDRD) Af Amer 64 Est GFR (MDRD) Non-Af 53 L BUN/Creatinine Ratio 26.7 H Glucose 176 H Calcium 9.0 Total Bilirubin 0.30 AST 19 ALT 24 Alkaline Phosphatase 79 Total Protein 6.5 Albumin 3.3 Globulin 3.2 Albumin/Globulin Ratio 1.0 Urine Color Yellow Urine Clarity Clear Urine pH 6.0 Ur Specific [place] 1.015 Urine Protein 15 H Urine Glucose (UA) Normal Urine Ketones Negative Urine Occult Blood Negative Urine Nitrite Positive H Urine Bilirubin Negative Urine Urobilinogen Normal Ur Leukocyte Esterase 100 H Urine RBC 0 SEEN Urine WBC 5-10 SEEN Ur Squamous Epith Cells 0-5 SEEN Urine Bacteria 3+ Urine Mucus 1+ Radiography Diagnostic Testing: Clinical Impression(s) from Imaging Studies Abdomen/Pelvis CT 06/28/24 15:31 IMPRESSION: Limited examination secondary to the lack of intravenous contrast and motion artifact. Colonic diverticulosis. Atherosclerosis. Multilevel degenerative changes of the visualized thoracic and lumbar spine. Grade 1 anterior spondylolisthesis of L4 on L5. Electronically Signed: Lauren Sahni MD at 16:10 EST , Discharge Plan Triage Chief Complaint: Abd Pain ED Provider: Nikita Alvarado Dx/Rx/DC Orders Clinical Impression: UTI (urinary tract infection), Abdominal pain, lower, Dementia Instructions: Urinary Tract Infections in Women Prescriptions: New nitrofurantoin monohyd/m-cryst 100 mg capsule 100 mg PO Q12 Qty: 10 0RF No Action ramipril 5 mg capsule 5 mg PO DAILY ropinirole 0.25 mg tablet 0.5 mg PO QHS Rx Instructions: administer 1-3 hours before bedtime omeprazole 40 MG capsule 40 mg PO DAILY Patient Comments: STOMACH metformin 500 MG tablet 500 mg PO DAILY donepezil 5 MG tablet 10 mg PO QHS cholecalciferol (vitamin D3) 1,000 UNIT capsule 1,000 unit PO DAILY cinnamon bark 500 MG capsule 1,000 mg PO DAILY atorvastatin 80 MG tablet 80 mg PO QHS Qty: 30 0RF cnxytdfm-tot-VB-lycopen-lutein 1 EACH tablet 1 ea PO BID memantine 10 mg tablet 10 mg PO BID Patient Comments: TAKE 1 TABLET BY MOUTH TWICE DAILY modafinil 100 mg Tablet 200 mg PO DAILY aspirin 81 mg Tablet,Chewable 81 mg PO BREAKFAST Qty: 30 1RF glipizide 5 mg tablet 2.5 mg PO BID Patient Comments: TAKE 1/2 (ONE-HALF) TO 1 (ONE) TABLET BY MOUTH TWICE DAILY DIRECTED Rx Instructions: 2.5MG TO 5MG BID UD acetaminophen [Tylenol Extra Strength] 500 mg tablet 500 mg PO Q4H PRN (Reason: fever or pain) Creon 36,000-114,000- 180,000 unit capsule,delayed release(DR/EC) See Rx Instructions PO .COMPLEX Qty: 160 2RF Rx Instructions: take 1-2 with snacks and 2-3 with meals Primary Care Provider: Mello Fowler Referrals: Mello Fowler, [Primary Care Provider] - 3-5 Days if not improving Print Language: Chinese Disposition Disposition: Home, Self Care
[2024-06-28 15:50] LABS: Absolute Lymphocyte Count 2.45 X10^3/uL (0.83-4.51); Absolute Neutrophil Count 4.5 X10^3/uL (2.0-7.7); Basophil# 0.07 X10^3/uL; Basophil% 0.9 % (0-1); Eosinophils% 3.7 % (0-5); Hematocrit 33.9 % (37-47); Hemoglobin 11.2 g/dL (12.0-15.0); Lymphocyte # 2.45 X10^3/ul (0.83-4.51); Lymphocyte % 30.6 % (19-41); Mean Corpuscular Hgb 31.6 pg (27.0-32.0); Mean Corpuscular Volume 95.8 fL (81-99); Mean Platelet Vol. 10.4 fl (6.2-12.0); Monocyte# 0.68 X10^3/uL; Monocyte% 8.5 % (0-10); NRBC Flagged by Analyzer 0 % (0-5); Neutrophil # 4.46 X10^3/uL (2.7-7.7); Neutrophil % 55.7 % (47-70); Platelet Count 208 K/mm3 (150-450); RBC Distribution Width CV 13.2 % (11.6-14.6); RBC Distribution Width SD 46.5 fl (35.1-43.9); Red Blood Count 3.54 M/mm3 (4.2-5.4)
[2024-06-28 16:07] LABS: AST(SGOT) 19 U/L (15-37); Alanine Aminotransfer ALT/SGPT 24 U/L (13-56); Albumin, Serum 3.3 g/dL (3.2-5.0); Alkaline Phosphatase 79 U/L (45-117); Anion Gap 1 (5-15); BUN 28 mg/dL (7-18); BUN/Creat Ratio 26.7 RATIO (10-20); Chloride 107 mmol/L (98-107); Creatinine, Serum 1.05 mg/dL (0.55-1.02); EST Glomerular Filtration Rate 53 mL/min (>60); Est Glom Filt Rate - Afr Amer 64 mL/min (>60); Estimated Creatinine Clearance 37.79 ml/min; Globulin 3.2 g/dL (2.2-4.2); Glucose 176 mg/dL (74-106); Potassium 4.4 mmol/L (3.5-5.1); Protein, Total 6.5 g/dL (6.4-8.2); Sodium Level 139 mmol/L (136-145)
[2024-06-28 16:10] VITALS: BP 132/67; PULSE 88; RESP 16; TEMP 36.6; O2SAT 98
[2024-06-28 16:24] LABS: Red Blood Cells-Urine 0 SEEN /hpf (0-5)
[2024-06-28 16:25] LABS: Color, Urine Yellow (Yellow); Glucose, Dipstick Normal (Normal); Ketone-Dipstick Negative (Negative); Leukocyte Esterase-Dipstick 100 /ul (Negative); Nitrite-Dipstick Positive (Negative); Occult Blood-Urine Negative /ul (Negative); Protein-Dipstick 15 mg/dl (Negative); Specific Gravity, Urine 1.015 (1.002-1.030); Urine Bilirubin Dipstick Negative (Negative); Urine Clarity Clear (Clear); Urine Urobilinogen Normal (Normal)
[2024-06-28 16:32] LABS: Bacteria 3+ /hpf (None Seen); Mucous, Urine 1+ /hpf (<or=2+); Squamous Epithelial Cells - UA 0-5 SEEN /hpf (5-10); White Blood Cells 5-10 SEEN /hpf (0-5)
[2024-06-28] MEDS: Acetaminophen 325 MG Tablet 650 MG PO (17:04)
[2024-06-28] MEDS: Nitrofurantoin Macrocrystals 100 MG Capsule PO (17:04)
== END 2024-06-28 17:06 | disposition home or self-care (01) ==
PROVIDERS: Emergency Provider Emergency Medicine; PCP Family Medicine; Visit Provider Emergency Medicine
DX: N39.0 Urinary tract infection, site not specified (principal); G30.9 Alzheimer's disease, unspecified; F02.80 Dementia in other diseases classified elsewhere, unspecified severity, without behavioral disturbance, psychotic disturbance, mood disturbance, and anxiety; E11.22 Type 2 diabetes mellitus with diabetic chronic kidney disease; N18.30 Chronic kidney disease, stage 3 unspecified; R10.30 Lower abdominal pain, unspecified; H91.93 Unspecified hearing loss, bilateral; D63.1 Anemia in chronic kidney disease; Z86.73 Personal history of transient ischemic attack (TIA), and cerebral infarction without residual deficits
CPT/HCPCS: 74176; 80053; 81001; 85025; 87086; 87088; 87186; 99285; P9612; A4216

== ENCOUNTER → 2025-01-01 | Outpatient (CLI) | payer MEDICARE, OTHER, SELFPAY ==
[2025-01-01 17:31] LABS: Absolute Lymphocyte Count 2.08 X10^3/uL (0.83-4.51); Absolute Neutrophil Count 3.3 X10^3/uL (2.0-7.7); Basophil# 0.09 X10^3/uL; Basophil% 1.4 % (0-1); Eosinophil# 0.21 X10^3/uL; Eosinophils% 3.3 % (0-5); Hematocrit 31.6 % (37-47); Hemoglobin 10.3 g/dL (12.0-15.0); Lymphocyte # 2.08 X10^3/ul (0.83-4.51); Lymphocyte % 32.7 % (19-41); Mean Corp Hgb Conc 32.6 g/dL (32-36); Mean Corpuscular Hgb 30.6 pg (27.0-32.0); Mean Corpuscular Volume 93.8 fL (81-99); Mean Platelet Vol. 11.5 fl (6.2-12.0); Monocyte# 0.64 X10^3/uL; NRBC Flagged by Analyzer 0 % (0-5); Neutrophil # 3.33 X10^3/uL (2.7-7.7); Neutrophil % 52.3 % (47-70); Platelet Count 179 K/mm3 (150-450); RBC Distribution Width CV 13.3 % (11.6-14.6); Red Blood Count 3.37 M/mm3 (4.2-5.4); White Blood Count 6.4 K/mm3 (4.4-11.0)
[2025-01-01 17:44] LABS: Hemoglobin A1c 7.1 % (<=5.6)
[2025-01-01 17:48] LABS: ALB/GLOB Ratio 1.4 RATIO (0.9-2.4); AST(SGOT) 27 U/L (<=31); Alanine Aminotransfer ALT/SGPT 24 U/L (<=34); Albumin, Serum 3.5 g/dL (3.4-4.8); Alkaline Phosphatase 74 U/L (35-104); Anion Gap 10 (5-15); BUN 19 mg/dL (4-19); BUN/Creat Ratio 19.7 RATIO (10-20); Calcium,Total 9.4 mg/dL (7.6-11.0); Carbon Dioxide 23.1 mmol/L (21.0-32.0); Chloride 106 mmol/L (98-108); Creatinine, Serum 0.95 mg/dL (0.70-1.20); EST Glomerular Filtration Rate 58 (>60); Globulin 2.6 g/dL (2.2-4.2); Glucose 172 mg/dL (70-99); Potassium 4.2 mmol/L (3.3-5.1); Protein, Total 6.1 g/dL (5.9-8.4); Sodium Level 139 mmol/L (133-145); Total Bilirubin 0.38 mg/dL (0.00-1.30)
== END | disposition home or self-care (01) ==
PROVIDERS: PCP Family Medicine; Visit Provider Family Medicine
DX: E11.22 Type 2 diabetes mellitus with diabetic chronic kidney disease (principal); E11.40 Type 2 diabetes mellitus with diabetic neuropathy, unspecified; N18.31 Chronic kidney disease, stage 3a; D63.1 Anemia in chronic kidney disease
CPT/HCPCS: 36415; 80053; 83036; 85025

== ENCOUNTER 2025-02-22 14:39 | Emergency (ER) | payer MEDICARE, OTHER, SELFPAY ==
[2025-02-22 14:41] VITALS: BP 133/67; PULSE 56; RESP 16; TEMP 37.1; O2SAT 97; BMI 30.3
--- NOTE | 2025-02-22 15:03 | EX.ED.DYSGE1 ---
HPI History of Present Illness Chief Complaint: Weakness Informant: spouse/S.O. Onset/Context/Timing Onset: Today Context: Sudden Onset Timing: Intermittent and Lasts (Approximately 30 minutes) Quality: Nonverbal, asleep. Location: Generalized Worsened by: Nothing Relieved by: Nothing Narrative Narrative: Patient presents today with weakness and episode of being nonverbal and unresponsive. states that the patient woke up and ate breakfast this morning. states that patient laid back down after that. states patient got a few hours of sleep after that. Has been states that when the patient woke up after that, she wanted to get dressed. states that she got almost completely dressed when she laid back in the bed and would not talk to him. states that he would call her and startle her with no response. states patient was awake but did not respond to him. states this episode lasted approximately 30 minutes. was concerned that this could have been a stroke and called EMS. states patient is back to her baseline at this time. states patient has been complaining of some chills. denies any fevers. Patient denies any chest pain. Patient denies any shortness of breath or cough. [facility] Medical History GERD (gastroesophageal reflux disease) TIA (transient ischemic attack) GI bleed Alzheimer disease Exocrine pancreatic insufficiency Falls Mental status alteration Loose stools AMS (altered mental status) History of Sjogren's disease RLS (restless legs syndrome) Varicose veins of leg with edema Bowel incontinence Chronic diarrhea Anemia due to stage 3 chronic kidney disease Noninfective gastroenteritis and colitis, unspecified Hearing loss, left Hearing loss, right Non-smoker CPAP (continuous positive airway pressure) dependence History of stroke Type 2 diabetes mellitus without complications Arthritis Dementia CVA (cerebral vascular accident) Nausea and vomiting in adult DM (diabetes mellitus), type 2 Home Medications ?Medication ?Instructions ?Recorded ?Last Taken ?Type omeprazole 40 mg capsule,delayed 40 mg PO DAILY GERD 01/06/14 01/11/23 History release cholecalciferol (vitamin D3) 25 1,000 unit PO DAILY supplement 08/28/16 01/11/23 History mcg (1,000 unit) capsule donepezil 5 mg tablet 10 mg PO QHS memory 08/28/16 01/11/23 History metformin 500 mg tablet 500 mg PO DAILY blood sugar 08/28/16 01/11/23 History cinnamon bark 500 mg capsule 1,000 mg PO DAILY supplement 11/30/17 01/11/23 History atorvastatin 80 mg tablet 80 mg PO QHS cholesterol #30 tabs 12/03/17 01/11/23 Rx meubitrl-neu-iudsk acid 0.4 1 ea PO BID supplement 12/03/18 01/11/23 History mg-lycopene 300 mcg-lutein 250 mcg tablet memantine 10 mg tablet 10 mg PO BID mental health 09/11/21 01/11/23 History ramipril 5 mg capsule 5 mg PO DAILY blood pressure 01/11/22 01/11/23 History ropinirole 0.25 mg tablet 0.5 mg PO QHS restless legs 01/11/22 01/11/23 History Held on 06/07/23. Instructions: unsure if she still takes modafinil 100 mg tablet 200 mg PO DAILY sleepiness 09/16/22 01/11/23 History aspirin 81 mg chewable tablet 81 mg PO BREAKFAST #30 tabs 09/20/22 01/11/23 Rx glipizide 5 mg tablet 2.5 mg PO BID DM 01/12/23 01/11/23 History acetaminophen 500 mg tablet 500 mg PO Q4H PRN fever or pain 06/07/23 Unknown History (Tylenol Extra Strength) lxpxmi-scrjypdj-ofzozbe 3 cap PO .aqc #300 caps 07/24/24 Unknown Rx 36,000-114,000-180,000 unit capsule,delay rel (Creon) nitrofurantoin 100 mg PO Q12 #10 CAPSULES 02/22/25 Unknown Rx monohydrate/macrocrystals 100 mg capsule Allergy/AdvReac Type Severity Reaction Status Date / Time pollen extracts Allergy Intermediate PT UNSURE Verified 02/22/25 14:46 OF REACTION Family History Mother Alzheimer disease Brother Alzheimer disease Aunt Alzheimer disease Father Heart disease Surgical History H/O lumpectomy H/O: hysterectomy History of tonsillectomy Social History household members: spouse Smoking Status: Never smoker alcohol intake: never substance use type: does not use ROS ROS ED Review of Systems ROS Unobtainable: due to mental condition Constitutional Constitutional ED: Denies chills or fever(s) Cardiovascular Cardiovascular: Denies chest pain Respiratory/Chest Respiratory/Chest: Denies cough or dyspnea Gastrointestinal Gastrointestinal: Denies nausea or vomiting Integumentary Denies rash Neurologic Neurologic: Reports weakness Allergic/Immunologic Allergic/Immunologic ED: Denies mouth swelling or urticaria EXAM Physical Exam Const Vital Signs: 02/22/25 14:41 02/22/25 14:45 02/22/25 16:56 Temperature 98.7 F Temperature Source Oral Pulse Rate 56 L 60 Respiratory Rate 16 16 Respiratory Effort Normal Respiratory Pattern Normal Blood Pressure 133/67 H 183/78 H Blood Pressure Mean 89 113 Pulse Ox 97 98 Oxygen Delivery Method Room Air Room Air Positive well nourished and well developed General Appearance ED: well developed and NAD HEENT Reports moist mucous membranes Neck supple and no JVD Resp normal respiratory effort and clear to auscultation bilaterally Cardio regular rate and regular rhythm GI non-tender and non-distended Palpation: soft Neuro oriented x3, CN's II-XII intact bilaterally and no sensory deficits noted Sensorium / Orientation: alert Motor Exam: strength 5/5 throughout Psych mental status grossly normal MDM MDM MDM Narrative Medical decision making narrative: Differential diagnosis includes stroke, TIA, urinary tract infection, electrolyte abnormality, dehydration, pneumonia, anemia, and Alzheimer's dementia. CT scan of the brain will be obtained to assess for stroke or intracranial bleeding. Chest x-ray will be obtained to assess for pneumonia and bronchitis. CBC will be obtained to assess for leukocytosis and anemia. Basic metabolic profile will be obtained to assess for electrolyte abnormality and renal function. Urinalysis will be obtained to assess for urinary tract infection and hematuria. History & Record Review Additional record(s) reviewed:: Prior ED visit and Prior labs Lab Data Attestation: I reviewed the patient's lab results. Lab results narrative: CBC was reviewed. There is a mild anemia with a hemoglobin level of 10.1 and hematocrit of 30.7. Basic metabolic profile was reviewed and was essentially within normal limits. Urinalysis was reviewed. Leukocyte esterase was 100 with 5-10 white blood cells and 2+ bacteria. Labs: Laboratory Results - last 24 hr 02/22/25 02/22/25 16:13 16:16 WBC 6.9 RBC 3.23 L Hgb 10.1 L Hct 30.7 L MCV 95.0 MCH 31.3 MCHC 32.9 RDW Std Deviation 45.7 H RDW Coeff of Marcio 13.1 Plt Count 165 MPV 11.0 Immature Gran % (Auto) 0.600 Neut % (Auto) 45.0 L Lymph % (Auto) 39.9 [place] % (Auto) 9.9 Eos % (Auto) 3.6 Baso % (Auto) 1.0 Absolute Neuts (auto) 3.1 Absolute Lymphs (auto) 2.77 Nucleated RBC % 0 Sodium 139 Potassium 4.7 Chloride 106 Carbon Dioxide 23.6 Anion Gap 9 BUN 23 H Creatinine 1.01 Estim Creat Clear Calc 37.27 L Est GFR (MDRD) Non-Af 53 L BUN/Creatinine Ratio 22.9 H Glucose 138 H Calcium 9.2 Urine Color Yellow Urine Clarity Clear Urine pH 6.0 Ur Specific [place] 1.015 Urine Protein 15 H Urine Glucose (UA) Normal Urine Ketones Negative Urine Occult Blood Negative Urine Nitrite Negative Urine Bilirubin Negative Urine Urobilinogen Normal Ur Leukocyte Esterase 100 H Urine RBC 0 SEEN Urine WBC 5-10 SEEN Ur Squamous Epith Cells 0-5 SEEN Ur Renal Epithelial Cell 0-5 SEEN Urine Bacteria 2+ Urine Mucus RARE Radiography Diagnostic Testing: Clinical Impression(s) from Imaging Studies Brain CT 02/22/25 15:32 IMPRESSION: No acute intracranial finding. Reading Location: [facility] Chest X-Ray 02/22/25 16:30 IMPRESSION: NO ACUTE FINDINGS. Reading Location: [facility] CT scan of the brain was obtained. There is no acute intracranial abnormality. This was interpreted by the radiologist and was also independently reviewed by myself. PA and lateral chest x-ray was obtained. There are 2 views. On my independent interpretation, lung quan are clear. There is normal cardiac silhouette. Bony thorax is normal. There is no acute process noted. Radiologist also interpreted the x-ray and agrees. Additional Tests and Interventions Additional Tests or Interventions: Urine culture was ordered. Treatment and Re-Evaluation :: Patient was given IV fluids. Patient was feeling better on reevaluation. Patient and were advised of the findings. Patient was given a prescription for Macrobid. Patient was instructed to drink plenty of fluids. Patient was instructed to follow-up with her primary care physician in 5 to 7 days. Patient was instructed to return if worse in any way. Patient and spouse understood and were agreeable with plan. All questions were answered. Discharge Plan Triage Chief Complaint: Weakness ED Provider: Sixto Alvarez Dx/Rx/DC Orders Clinical Impression: Acute UTI, Chronic anemia, Weakness Instructions: ED Cystitis Female Adult Prescriptions: Continued nitrofurantoin monohyd/m-cryst 100 mg capsule 100 mg PO Q12 Qty: 10 0RF No Action ramipril 5 mg capsule 5 mg PO DAILY ropinirole 0.25 mg tablet 0.5 mg PO QHS Rx Instructions: administer 1-3 hours before bedtime omeprazole 40 MG capsule 40 mg PO DAILY Patient Comments: STOMACH metformin 500 MG tablet 500 mg PO DAILY donepezil 5 MG tablet 10 mg PO QHS cholecalciferol (vitamin D3) 1,000 UNIT capsule 1,000 unit PO DAILY cinnamon bark 500 MG capsule 1,000 mg PO DAILY atorvastatin 80 MG tablet 80 mg PO QHS Qty: 30 0RF mtcudnse-anj-YF-lycopen-lutein 1 EACH tablet 1 ea PO BID memantine 10 mg tablet 10 mg PO BID Patient Comments: TAKE 1 TABLET BY MOUTH TWICE DAILY modafinil 100 mg Tablet 200 mg PO DAILY aspirin 81 mg Tablet,Chewable 81 mg PO BREAKFAST Qty: 30 1RF glipizide 5 mg tablet 2.5 mg PO BID Patient Comments: TAKE 1/2 (ONE-HALF) TO 1 (ONE) TABLET BY MOUTH TWICE DAILY DIRECTED Rx Instructions: 2.5MG TO 5MG BID UD acetaminophen [Tylenol Extra Strength] 500 mg tablet 500 mg PO Q4H PRN (Reason: fever or pain) Creon 36,000-114,000- 180,000 unit capsule,delayed release(DR/EC) 3 cap PO .aqc Qty: 300 11RF Rx Instructions: Take 3 caps with each meal and 1 with snacks. Max 10 caps per day Primary Care Provider: Mello Fowler Referrals: Mello Fowler DO [Primary Care Provider] - 3-5 Days Print Language: Persian Disposition Disposition: Home, Self Care
--- NOTE | 2025-02-22 15:32 | CT_ITS ---
EXAM: BRAIN/HEAD WITHOUT CONTRAST CLINICAL HISTORY: 89 y/o F with CONFUSION. COMPARISON: CT head 01/12/2023. TECHNIQUE: Routine CT imaging of the head without IV contrast. Additional multiplanar reformats were obtained. Dose reduction techniques were used including intermediate exposure control (AEC),iterative reconstruction technique, and/or mA and/or KV dose adjustments based on patient's size. FINDINGS: The ventricles, sulci and cisterns are prominent, suggestive of moderate-severe brain parenchymal volume loss. There is no evidence of acute intracranial hemorrhage or herniation. 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 Moderate patchy and confluent supratentorial white matter hypodensities. 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 There is no midline shift, mass effect, or extra-axial collection. The watson and white matter interfaces are otherwise maintained. The orbits, visualized paranasal sinuses and mastoids are unremarkable. No acute calvarial fracture or scalp hematoma. CT/Brain/Head without Contrast IMPRESSION: No acute intracranial finding. Reading Location: [id number]
--- OUTSIDE RECORDS SUMMARY | 2025-02-22 15:32 | XMS RPT_ITS | CCD ---
Author Organization [facility] Care Team Providers Care Commercial Escrow Officer Name Role Phone Dr. Clinton Fowler Primary Care Provider [phone] Dr. Eduin Blair Attending Provider Dr. Maura Lauren Emergency Provider [phone] Foreign Paredes Admit Provider Dr. Foreign Paredes Other Provider Dr. Isa Verma Attending Provider [phone] Isa Verma Other Provider Dr. Clinton Fowler Referring Provider [phone] Hung Adames Attending Provider [phone] Dr. Moncho Thomas Emergency Provider Dr. Estrella Buckner Admit Provider Dr. Estrella Buckner Other Provider Dr. Foreign Paredes Attending Provider [phone] Dr. Maria D Chawla Other Provider Dr. Gera Corbett Attending Provider Dr. Clinton Fowler Primary Care Provider [phone] Dr. Clinton Fowler Referring Provider Dr. Hung Adames Attending Provider [phone] Dr. Moncho Thomas Emergency Provider Dr. Estrella Buckner Admit Provider Dr. Estrella Buckner Other Provider Dr. Maria D Chawla Attending Provider Koram, Dr. Isa Bain Attending Provider Bayron, Dr. Isa Bain Other Provider Dr. Maria D Chawla Other Provider Dr. Gera Corbett Attending Provider Dr. Alan Batista Attending Provider Bayron, Dr. Isa Bain Referring Provider Dr. Clinton Fowler Primary Care Provider Dr. Clinton Fowler Referring Provider Dr. Hung Adames Attending Provider Dr. Isiah Winn Emergency Provider Dr. Sixto Braswell Admit Provider Dr. Sixto Braswell Attending Provider Dr. Sixto Braswell Other Provider Dr. Clinton Fowler Primary Care Provider [phone] Dr. Clinton Fowler Primary Care Provider Dr. Sixto Braswell Referring Provider Dr. Hung Adames Attending Provider Dr. Clinton Fowler Primary Care Provider [phone] Dr. Clinton Fowler Referring Provider Rafael MARIE, RETURNED GOODS RECEIVING CLERK-C Inessa Thomas Attending Provider [phone] Dr. Hung Adames Attending Provider LIBERTAD WHITTAKER Attending Unavailable LIBERTAD WHITTAKER Attending Unavailable Clinton Fowler DO Primary Care Provider Dr. Clinton Fowler DO Primary Care Provider Dr. Clinton Fowler DO Referring Provider Dr. Hung Adames DO Attending Provider Dr. Clinton Fowler DO Attending Provider [phone] Davian MARIE, Libertad Brody Attending Unavailab le Clinton Fowler Primary Care Unavailable Nikita Alvarado Attending Unavailable Janeth, Clinton Primary Care Unavailable Janeth, Clinton Referring Unavailable Janeth, Clinton Primary Care Unavailable FriendHung Attending Unavailable Janeth, Clinton Primary Care Unavailable Perlita Murrieta Attending Unavailable Janeth, Clinton Referring Unavailable Janeth, Clinton Primary Care Unavailable Cyril Rand Attending Unavailable Janeth, Clinton Referring Unavailable Janeth, Clintno Referring Unavailable Janeth, Clinton Primary Care Unavailable FriendHung Attending Unavailable Clinton Fowler Attending Unavailable Janeth, Clinton Primary Care Unavailable Cyril Rand Referring Unavailable Clinton Fowler Primary Care Unavailable Cyril Rand Attending Unavailable LIBERTAD WHITTAKER Attending Unavailable LIBERTAD WHITTAKER Referring Unavailable CLINTON FOWLER Primary Care Unavailable Allergies Allergy Classification Reported Allergen(s) Allergy Type Date of Onset Reaction(s) Facility (8 sources) Pollen Allergy to substance 3 PT UNSURE OF REACTION [facility] (1 source) Pollen Drug allergy (disorder) 4 [facility] Repository Medications Current Medications Medication Drug Class(es) Dates Sig (Normalized) Sig (Original) acetaminophen 500 mg oral tablet (20 sources) Start: 06-07-2023 take 1 tablet by mouth every four hours as needed for pain Acetaminophen (Tylenol Extra Strength) 500 mg tablet Active 500 mg PO Q4H as needed for fever or pain June 07, 2023 1:00am Start: 09-12-2021 End: 01-12-2023 Acetaminophen 500 mg Tablet Discontinued 1000 mg PO EVERY 8 HOURS NEEDED as needed for Pain Score 1-10/Temp > 100.7 F 0 September 12, 2021 1:00am January 12, 2023 12:26pm Start: 09-12-2021 End: 01-12-2023 take 1000 mg by mouth every eight hours as needed Acetaminophen Discontinued 1000 MG PO EVERY 8 HOURS NEEDED 0 September 12, 2021 1:00am January 12, 2023 12:26pm Start: 01-06-2014 End: 01-08-2014 take 2 tablets by mouth at bedtime Acetaminophen 500 MG tablet Discontinued 1000 mg PO AT BEDTIME January 06, 2014 12:00am January 08, 2014 4:01pm Start: 01-06-2014 End: 01-08-2014 take 1000 mg by mouth at bedtime Acetaminophen Discontinued 1000 MG PO AT BEDTIME January 06, 2014 12:00am January 08, 2014 4:01pm acetaminophen (T ylenol) 325 mg tablet Take by mouth. Active aspirin 81 mg chewable tablet (11 sources) Platelet Aggregation Inhibitor, Nonsteroidal Anti-inflammatory Drug Start: 09-20-2022 take 1 tablet by mouth at breakfast Aspirin 81 mg Tablet,Chewable Active 81 mg PO WITH BREAKFAST September 20, 2022 1:00am aspirin 81 mg ta blet Take by mouth. Active atorvastatin 80 mg oral tablet (20 sources) HMG-CoA Reductase Inhibitor Start: 12-03-2017 take 1 tablet by mouth at bedtime Atorvastatin 80 MG tablet Active 80 mg PO AT BEDTIME December 03, 2017 12:00am Start: 01-08-2014 End: 12-03-2017 Atorvastatin 80 MG tablet Discontinued 40 mg PO AT BEDTIME January 08, 2014 12:00am December 03, 2017 11:01am Start: 01-08-2014 End: 12-03-2017 take 40 mg by mouth at bedtime Atorvastatin Discontinu ed 40 MG PO AT BEDTIME January 08, 2014 12:00am December 03, 2017 11:01am cholecalciferol 0.025 mg oral capsule (18 sources) Vitamin D Start: 08-28-2016 take 1 capsule by mouth once daily Cholecalciferol (Vitamin D3) 1,000 UNIT capsule Active 1000 U PO DAILY August 28, 2016 1:00am cholecalciferol (Vitamin D-3) 25 mcg (1,000 units) capsule Take 1 capsule (1,000 Units) by mouth. Active fgms-hiqqf-SFP-xzw-zxtvhxm-x ea 100 mg-100 mcg- 100 mg-100 mg capsule (1 source) vyas-pnkqw-[facility]-g qt-ouwsaoz-ywe 100 mg-100 mcg- 100 mg-100 mg capsule once every 24 hours. Active cinnamon bark 500 mg oral ca psule (17 sources) Star t: 11-13 take 1 capsule by mouth once daily Cinnamon Bark 500 MG capsule Active 1000 mg PO DAILY November 30, 2017 12:00am Start: 11-30-2017 take 1000 mg by mouth once jarrod ly Cinnamon Bark Active 1000 MG PO DAILY November 30, 2017 12:00am donepezil hydrochloride 10 m g oral tablet (18 sources) Start: 01-21-2024 donepezil (Ben cept) 10 mg tablet Take 1 tablet (10 mg) by mouth. 01/21/2024 Active Start: 08-28-2016 take 2 tablets by mo [facility] at bedtime Donepezil 5 MG tablet Active 10 mg PO AT BEDTIME August 28, 2016 1:00am Start: 08-28-2016 take 10 mg by mouth at bedtime Donepezil Active 10 MG PO AT BEDTIME August 28, 2016 1:00am gabapentin 300 mg oral capsule (6 sources) Anti-epileptic Agent Start: 01-11-2022 take 300 mg by mouth three times daily Gabapentin Active 300 MG PO THREE TIMES A DAY January 10, 2022 11:00pm glipiZIDE 5 mg oral tablet (9 sources) Sulfonylurea Start: 01-12-2023 take 2.5 mg by mouth twice daily, then take 1 tablet by mouth twice daily Glipizide 5 mg tablet Active 2.5 mg PO TWICE A DAY January 12, 2023 12:00am 2.5MG TO 5MG BID UD Start: 01-12-2023 take 2.5 mg by mouth twice daily, then take 5 mg by mouth twice daily Glipizide Active 2.5 MG PO TWICE A DAY January 12, 2023 12:00am 2.5MG TO 5MG BID UD take 0.5-1 tablets b y mouth twice daily glipiZIDE (Glucotrol) 5 mg tablet TAKE 1/2 TO 1 (ONE-HALF TO ONE) TABLET BY MOUTH TWICE DAILY DIRECTED Active loperamide hydrochloride 2 mg oral capsule (6 sources) Opioid Agonist Start: 01-11-2022 take 2 mg by mouth every six hours Loperamide Active 2 MG PO EVERY 6 HOURS January 10, 2022 11:00pm memantine hydrochloride 10 mg oral tablet (18 sources) E-rafvkr-L-aspart ate Receptor Antagonist Start: 09-11-2021 take 1 tablet by mouth twice daily Memantine 10 mg tablet Active 10 mg PO TWICE A DAY September 11, 2021 1:00am metFORMIN hydrochloride 500 mg oral tablet (18 sources) Biguanide Start: 08-28-2016 take 1 tablet by mouth once daily Metformin 500 MG tablet Active 500 mg PO DAILY August 28, 2016 1:00am modafinil 100 mg oral tablet (16 sources) Sympathomimetic-l charisse Agent Start: 09-16-2022 take 1 tablet by mouth once daily Modafinil 100 mg Tablet Active 200 mg PO DAILY September 16, 2022 1:00am Start: 09-16-2022 take 200 mg by mouth once alina y Modafinil Active 200 MG PO DAILY September 16, 2022 1:00am Start: 09-11-2021 take 100 mg by mouth once alina y Modafinil Active 100 MG PO DAILY September 11, 2021 12:00am Qpxtwrat-Dgo-Mi-Lycopen-Lute in (15 sources) Start: 12-03-2018 Xfltdetj-Rtx-Jh-Lycopen-Lute in Active 1 EACH PO TWICE A DAY December 02, 2018 11:00pm Start: 12-03-2018 Hpohjrcu-Rgl-H u-Liblgrs-Uphtoy Active 1 EACH PO TWICE A DAY December 03, 2018 12:00am Cvnorrvz-Mzk-Bb-Lycopen-Lute in 1 EACH tablet (2 sources) Start: 12-03-2018 Ceqovbqc-Rnc-Tk-Lycopen-Lute in 1 EACH tablet Active 1 NMA PO TWICE A DAY December 03, 2018 12:00am nitrofurantoin, macrocrystal s 25 mg / nitrofurantoin, monohydrate 75 mg oral capsule (2 sources) Nitrof uran Antiba cteria l Start: 06-28-2024 take 1 capsul e by mouth every twelve hours Nitrofurantoin Monohyd/M-Cryst 100 mg capsule Active 100 mg PO EVERY 12 HOURS June 28, 2024 1:00am omeprazole 40 mg delayed release oral capsule (18 sources) Proton Pump Inhibi tor Start: 01-06-2014 take 1 capsul e by mouth once daily Omeprazole 40 MG capsule Active 40 mg PO DAILY January 06, 2014 12:00am omeprazole (PriL OSEC) [address] capsule once every 24 hours. Active ramipril 5 mg oral capsule (20 sources) Angiotensin Converting Enzyme Inhibitor Start: 01-11-2022 take 1 capsule by mouth once daily Ramipril 5 mg capsule Active 5 mg PO DAILY Ginna 29th, 2022 12:00am Start: 11-30-2017 End: 06-26-2019 take 1 capsule by mouth once daily Ramipril 5 MG capsule Discontinued 5 mg PO DAILY November 30, 2017 12:00am June 26, 2019 3:55pm rOPINIRole 0.5 mg oral tablet (18 sources) Nonergot Dopamine Agonist Start: 07-20-2023 take 1 tablet by mouth once rOPINIRole (Requip) 0.5 mg tablet 1 tab(s) orally once a day(HS ) 07/20/2023 Active Start: 01-11-2022 take 2 tablets by mo uth at bedtime Ropinirole 0.25 mg tablet Active 0.5 mg PO AT BEDTIME January 11, 2022 12:00am On Hold: unsure if she still takes administer 1-3 hours before bedtime Start: 01-11-2022 take 0.5 mg by mouth at bedtim e Ropinirole Active 0.5 MG PO AT BEDTIME January 11, 2022 12:00am administer 1-3 hours before bedtime Start: 01-11-2022 take 0.25 mg by mouth at bedti me Ropinirole Active 0.25 MG PO AT BEDTIME January 10, 2022 11:00pm administer 1-3 hours before bedtime Completed/Discontinued Medications Medication Drug Class(es) Dates Sig (Normalized) Sig (Original) amoxicillin 500 mg / clavulanate 125 mg oral tablet (4 sources) Penicillin-class Antibacterial Start: 06-03-2023 End: 06-10-2023 Amoxicillin-Pot Clavulanate (Augmentin) 500-125 mg tablet Discontinued 1 {tbl} PO TWICE A DAY 14 7 June 03, 2023 1:00am June 09, 2023 1:00am June 10, 2023 1:04am On Hold: only take if needed amylase [id number] unt / lipase [id number] unt / protease [id number] unt delayed release oral capsule (20 sources) Start: 08-28-2022 End: 07-24-2024 Emhvzx-Wdjybduh-Rj ylase (Creon) 36,000-114,000- 180,000 unit capsule,delayed release(DR/EC) Discontinued 0 PO .COMPLEX 160 July 02, 2023 11:42am July 24, 2024 5:16pm take 1-2 with snacks and 2-3 with meals Ascorbic Acid (18 sources) Vitamin C Start: 06-08-2019 End: 06-07-2023 Vitamin C Discontinued 1 {tbl} PO TWICE A DAY June 08, 2019 1:00am June 08, 2023 12:40am Start: 06-08-2019 End: 06-07-2023 take 1 tablet by mouth twice daily Vitamin C Discontinued 1 TABLET PO TWICE A DAY June 08, 2019 1:00am June 08, 2023 12:40am Start: 06-08-2019 End: 06-07-2023 take 1 tablet by mouth twice daily Vitamin C Discontinued 1 TABLET PO TWICE A DAY June 08, 2019 12:00am June 07, 2023 11:40pm Start: 06-08-2019 take 1 tablet by morris th twice daily Vitamin C Active 1 TABLET PO TWICE A DAY June 08, 2019 12:00am Start: 06-08-2019 take 1 tablet by morris th twice daily Vitamin C Active 1 TABLET PO TWICE A DAY June 08, 2019 1:00am ascorbic acid (V itamin C) 500 mg chewable tablet Chew 1 tablet (500 mg) once daily. Active budesonide 3 mg delayed release oral capsule (8 sources) Corticosteroid Start: 12-05-2022 End: 01-12-2023 take 1 capsule by mouth twice daily Budesonide 3 mg capsule,delayed,extend.release Discontinued 3 mg PO TWICE A DAY December 05, 2022 12:00am January 12, 2023 12:26pm cephalexin 500 mg oral capsule (19 sources) Cephalosporin Antibacterial Start: 01-16-2024 End: 01-23-2024 take 1 capsule by mouth every eight hours Cephalexin 500 mg capsule Discontinued 500 mg PO Q8H 02 02January 16, 2024 12:00am January 22, 2024 12:00am January 23, 2024 12:05am Start: 07-21-2020 End: 07-21-2020 take 1 capsule by mouth three times daily Cephalexin 500 mg capsule Discontinued 500 mg PO THREE TIMES A DAY July 21, 2020 1:00am July 21, 2020 5:45pm clopidogrel 75 mg oral tablet (18 sources) [id number] Platelet Inhibitor Start: 12-03-2017 End: 01-14-2023 take 1 tablet by mouth once daily Clopidogrel 75 MG tablet Discontinued 75 mg PO DAILY December 03, 2017 12:00am January 14, 2023 1:39pm colestipol hydrochloride 1000 mg oral tablet (17 sources) Bile Acid Sequestrant Start: 11-02-2022 End: 01-12-2023 Colestipol 1 gram tablet Discontinued 2 g PO TWICE A DAY 120 November 02, 2022 9:19am January 12, 2023 12:26pm Start: 11-02-2022 End: 01-12-2023 take 2 g by mouth twice daily Colestipol Discontinued 2 GM PO TWICE A DAY 120 November 02, 2022 9:19am January 12, 2023 12:26pm Start: 10-13-2022 End: 10-31-2022 Colestipol 1 gram tablet Dis continued 1 g PO TWICE A DAY 60 October 13, 2022 12:00am October 31, 2022 3:00pm doxycycline hyclate 100 mg oral capsule (16 sources) Tetracycline-class Drug Start: 10-31-2022 End: 01-12-2023 take 1 capsule by mouth twice daily Doxycycline Hyclate 100 mg capsule Discontinued 100 mg PO TWICE A DAY 60 December 05, 2022 10:56am January 12, 2023 12:27pm erythromycin 0.005 mg/mg ophthalmic ointment (17 sources) Macrolide, Macrolide Antimicrobial Start: 11-30-2017 End: 01-12-2023 Erythromycin 5 MG/GRAM ointment Discontinued 1 APPLICATIO EACH EYE DAILY November 30, 2017 12:00am January 12, 2023 12:27pm it is to go around eye not in the eye per Start: 11-30-2017 End: 01-12-2023 Erythromycin Discontinued 1 APPLICATIO EACH EYE DAILY November 30, 2017 12:00am January 12, 2023 12:27pm it is to go around eye not in the eye per glimepiride 4 mg oral tablet (20 sources) Sulfonylurea Start: 08-28-2016 End: 06-16-2022 take 2 mg by mouth once daily Glimepiride 4 MG tablet Discontinued 2 mg PO DAILY August 28, 2016 11:45pm June 16, 2022 4:45pm Start: 08-28-2016 End: 06-16-2022 take 2 mg by mouth once daily Glimepiride Discontinued 2 MG PO DAILY August 28, 2016 11:45pm June 16, 2022 4:45pm Start: 01-08-2014 End: 08-28-2016 take 1 tablet by mouth once daily Glimepiride 4 MG tablet Discontinued 4 mg PO DAILY 1 January 08, 2014 4:01pm August 28, 2016 11:45pm Start: 01-06-2014 End: 01-08-2014 take 1 tablet by mouth twice daily Glimepiride 4 MG tablet Discontinued 4 mg PO TWICE A DAY January 06, 2014 12:00am January 08, 2014 4:01pm take 1 tablet by morris th once daily glimepiride (Amaryl) 2 mg tablet Take 1 tablet (2 mg) by mouth once daily. Active Muvpez-Crbdgkma-Crkoqzs (Bib pep) 40,000-126,000- 168,000 unit capsule,delayed release(DR/EC) (15 sources) Start: 08-23-2022 End: 08-28-2022 Wheknc-Ijqzhepn-Pfmyalz (Zenpep) 40,000-126,000- 168,000 unit capsule,delayed release(DR/EC) Discontinued 0 PO .COMPLEX 320 August 23, 2022 1:00am August 28, 2022 5:28pm take 1-2 with snacks and 2-3 with meals Start: 08-23-2022 End: 08-28-2022 Tpmueh-Cygwrqfa-Ztgnmeg (Bib pep) 40,000-126,000- 168,000 unit capsule,delayed release(DR/EC) Discontinued 0 PO .COMPLEX 320 August 23, 2022 12:00am August 28, 2022 4:28pm take 1-2 with snacks and 2-3 with meals Start: 08-23-2022 Lipase-Proteas e-Amylase (Zenpep) 40,000-126,000- 168,000 unit capsule,delayed release(DR/EC) Active 0 PO .COMPLEX 320 August 23, 2022 12:00am take 1-2 with snacks and 2-3 with meals melatonin 10 mg oral tablet (20 sources) Start: 06-14-2022 End: 01-12-2023 take 1 tablet by mouth at bedtime Melatonin 10 mg Tablet Discontinued 10 mg PO AT BEDTIME June 14, 2022 1:00am January 12, 2023 12:27pm Start: 06-08-2019 End: 01-11-2022 take 1 tablet by mouth at bedtime Melatonin 10 MG tablet Discontinued 10 mg PO AT BEDTIME June 08, 2019 1:00am January 11, 2022 10:42am naproxen sodium 220 mg oral capsule (17 sources) Nonsteroidal Anti-inflammatory Drug Start: 12-03-2018 End: 01-14-2023 take 1 capsule by mouth twice daily Naproxen Sodium 220 MG capsule Discontinued 220 mg PO TWICE A DAY December 03, 2018 12:00am January 14, 2023 1:39pm Problems Active Problems Problem Classification Problem Date Documented Da te Episodic/Chronic Acute cerebrovascular disease (20 sources) Cerebrovascular accident; Translations: [Cerebral infarction, unspecified] 06-26-2019 Chronic Acute posthemorrhagic anemia (12 sources) Acute posthemorrhagic anemia; Translations: [Acute posthemorrhagic anemia] 01-13-2023 Episodic Chronic kidney disease (17 sources) Chronic kidney disease stage 3; Translations: [Stage 3 chronic kidney disease] 03-03-2019 Chronic Conditions associated with dizziness or vertigo (17 sources) Vertigo; Translations: [Dizziness and giddiness] 12-03-2018 Episodic Deficiency and other anemia (17 sources) Anemia due to blood loss; Translations: [Iron deficiency anemia secondary to blood loss (chronic)] 09-20-2021 Chronic Deficiency and other anemia (18 sources) Chronic anemia; Translations: [Anemia, unspecified] 03-03-2019 Episodic Deficiency and other anemia (8 sources) Anemia; Translations: [Anemia, unspecified] 01-12-2023 Episodic Deficiency and other anemia (2 sources) Anemia, unspecified; Translations: [Anemia, unspecified] 01-14-2023 Episodic Delirium, dementia, and amnestic and other cognitive disorders (20 sources) Dementia; Translations: [Unspecified dementia without behavioral disturbance] Onset: Chronic Diabetes mellitus with complications (18 sources) Neuropathy due to diabetes mellitus; Translations: [Type 2 diabetes mellitus with diabetic neuropathy, unspecified] Onset: 5 12-03-2018 Chronic Diabetes mellitus without complication (18 sources) Type 2 diabetes mellitus; Translations: [Type 2 diabetes mellitus without complications] Chronic Diabetes mellitus without complication (19 sources) Hyperglycemia; Translations: [Hyperglycemia, unspecified] 09-16-2022 Episodic Disorders of lipid metabolism (17 sources) Hyperlipidemia; Translations: [Hyperlipidemia, unspecified] 12-03-2018 Chronic E Codes: Fall (20 sources) Fall; Translations: [Unspecified fall, initial encounter] 07-17-2019 Episodic Esophageal disorders (17 sources) Gastroesophageal reflux disease; Translations: [Gastro-esophageal reflux disease without esophagitis] 08-10-2022 Chronic Gastrointestinal hemorrhage (20 sources) Gastrointestinal hemorrhage; Translations: [Gastrointestinal hemorrhage, unspecified] 01-12-2023 Episodic Nausea and vomiting (17 sources) Nausea and vomiting; Translations: [Nausea with vomiting, unspecified] 08-10-2022 Episodic Open wounds of extremities (20 sources) Tear of skin; Translations: [Laceration without foreign body of unspecified elbow, initial encounter] 06-09-2019 Episodic Open wounds of head; neck; and trunk (17 sources) Laceration of forehead; Translations: [Laceration without foreign body of other part of head, initial encounter] 09-20-2021 Episodic Other connective tissue disease (17 sources) Hand pain; Translations: [Pain in right hand] 07-15-2019 Episodic Other connective tissue disease (17 sources) Fibromyalgia; Translations: [Fibromyalgia] 12-03-2018 Episodic Other connective tissue disease (16 sources) Neurological symptom; Translations: [Unspecified symptoms and signs involving the nervous system] 06-24-2022 Episodic Other connective tissue disease (7 sources) Unspecified symptoms and signs involving the nervous system; Translations: [Other symptoms involving nervous and musculoskeletal systems] Episodic Other ear and sense organ disorders (17 sources) Hearing disorder; Translations: [Unspecified hearing loss, unspecified ear] 12-03-2018 Chronic Other endocrine disorders (20 sources) Hypoglycemia; Translations: [Hypoglycemia, unspecified] 06-24-2022 Chronic Other endocrine disorders (7 sources) Hypoglycemia, unspecified; Translations: [Hypoglycemia, unspecified] Chronic Other gastrointestinal disorders (17 sources) Constipation; Translations: [Constipation, unspecified] 03-04-2019 Episodic Other gastrointestinal disorders (16 sources) Loose stool; Translations: [Other fecal abnormalities] 08-10-2022 Episodic Other gastrointestinal disorders (7 sources) Other fecal abnormalities; Translations: [Abnormal feces] 08-10-2022 Episodic Other gastrointestinal disorders (9 sources) Diarrhea; Translations: [Diarrhea, unspecified] 10-23-2022 Episodic Other injuries and conditions due to external causes (17 sources) Local infection of wound; Translations: [Other injury of unspecified body region, initial encounter] 09-22-2021 Episodic Other injuries and conditions due to external causes (20 sources) Injury of head; Translations: [Unspecified injury of head, initial encounter] 09-20-2021 Episodic Other lower respiratory disease (5 sources) Cough; Translations: [Cough] 06-03-2023 Episodic Other nervous system disorders (17 sources) Disorder of brain; Translations: [Encephalopathy, unspecified] 03-03-2019 Chronic Other non-traumatic joint disorders (17 sources) Hip pain; Translations: [Pain in left hip] 07-15-2019 Episodic Other upper respiratory infections (5 sources) Viral upper respiratory tract infection; Translations: [Acute upper respiratory infection, unspecified] 06-03-2023 Episodic Otitis media and related conditions (17 sources) Otosclerosis; 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, unspecified ear] 12-03-2018 Episodic Pancreatic disorders (not diabetes) (12 sources) Exocrine pancreatic insufficiency; 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] 01-12-2023 Episodic Pneumonia (except that caused by tuberculosis or sexually transmitted disease) (17 sources) Pneumonia; Translations: [Pneumonia, unspecified organism] 03-03-2019 Episodic Residual codes; unclassified (17 sources) Sleep apnea; Translations: [Sleep apnea, unspecified] 12-03-2018 Chronic Comment on above: resolved after a ton sillectomy and uvulectomy Residual codes; unclassified (2 sources) Obstructive sleep apnea syndrome; Translations: [Obstructive sleep apnea (adult) (pediatric)] 11-25-2024 Chronic Residual codes; unclassified (2 sources) Periodic leg movements of sleep ; Translations: [Periodic limb movement disorder] 11-25-2024 Chronic Residual codes; unclassified (2 sources) Hypersomnia; Translations: [Hypersomnia, unspecified] 11-25-2024 Chronic Residual codes; unclassified (2 sources) Obstructive sleep apnea (adult) (pediatric); Translations: [Obstructive sleep apnea (adult) (pediatric)] Onset: 5 Chronic Residual codes; unclassified (2 sources) Periodic limb movement disorder; Translations: [Periodic limb movement disorder] Onset: 5 Chronic Residual codes; unclassified (2 sources) Hypersomnia, unspecified; Translations: [Hypersomnia, unspecified] Onset: 5 Chronic Residual codes; unclassified (20 sources) Altered mental status; Translations: [Altered mental status, unspecified] 06-24-2022 Episodic Residual codes; unclassified (8 sources) Delirium; Translations: [Disorientation, unspecified] 01-12-2023 Episodic Residual codes; unclassified (4 sources) Disorientation, unspecified; Translations: [Other alteration of consciousness] 01-14-2023 Episodic Sprains and strains (20 sources) Strain of neck muscle; Translations: [Strain of muscle, fascia and tendon at neck level, initial encounter] 02-12-2022 Episodic Superficial injury; contusion (20 sources) Contusion of upper arm; Translations: [Contusion of right upper arm, initial encounter] 07-17-2019 Episodic Systemic lupus erythematosus and connective tissue disorders (17 sources) Sjogren's syndrome; Translations: [Sicca syndrome, unspecified] 12-03-2018 Chronic Past or Other Problems Problem Classification Problem Date Documented Da te Episodic/Chronic Abdominal pain (20 sources) Nonspecific abdominal pain; Translations: [Unspecified abdominal pain] Onset: 07-23-2024 12-03-2018 Episodic Malaise and fatigue (13 sources) Asthenia; Translations: [Weakness] Onset: 08-06-2024 01-12-2023 Episodic Residual codes; unclassified (4 sources) Altered mental status, unspecified; Translations: [Altered mental status] Onset: 01-16-2024 Episodic Urinary tract infections (20 sources) Urinary tract infectious disease; Translations: [Urinary tract infection, site not specified] Onset: 01-26-2024 12-03-2018 Episodic Results Test Name Value Interpretation Reference Range Facility Absolute lymphocyte countOrd ered By: Clinton Fowler on 01-01-2025 Lymphocytes Auto (Unsp spec) [#/Vol] 2.08 10*3/uL 0.83-4.51 [facility] Absolute neutrophil countOrd ered By: Clinton Fowler on 01-01-2025 Neutrophils (Bld) [#/Vol] 3.3 10*3/uL 2.0-7.7 [facility] Anion gap in Serum or Plasma Ordered By: Clinton Adamman on 01-01-2025 Anion gap [Moles/Vol] 10 mmol/L 5- [facility] Automated lymphocyte count a s percentage of total leukocytesOrdered By: Clinton Fowler on 01-01-2025 Lymphocytes/100 WBC Auto (Unsp spec) 32.7 % [facility] BUN/creatinine ratioOrdered By: Clinton Fowler on 01-01-2025 Urea nitrogen/Creatinine [Mass ratio] 19.7 mg/mg 10- [facility] Basophil percentageOrdered B y: Clinton Fowler on 01-01-2025 Basophils/100 WBC (Bld) 1.4 % High 0-[address] [facility] Bilirubin, totalOrdered By: Clinton Adamman on 01-01-2025 Bilirubin [Mass/Vol] 0.38 mg/dL 0.00-1.30 [facility] CBC W/Diff, Automatedon 12-14 Absolute Lymph 2.08 X10 3/uL Normal 0.83-4.51 [facility] Comment on above: Performed By: #### M 100.2200 #### [facility] [address] [place], [address] Absolute Neut 3.3 X10 3/uL Normal 2.0-7.7 [facility] Comment on above: Performed By: #### M 100.2200 #### [facility] [address] [place], [address] Basophils/100 WBC (Bld) 1.4 % High 0-[address] [facility] Comment on above: Performed By: #### M 100.2200 #### [facility] [address] [place], [address] Eosinophils/100 WBC (Bld) 3.3 % Normal 0-5 [facility] Comment on above: Performed By: #### M 100.2200 #### [facility] [address] [place], [address] Erythrocyte distribution width (RBC) [Ratio] 13.3 % Normal 11.6-14.6 [facility] Comment on above: Performed By: #### M 100.2200 #### [facility] [address] [place], [address] Hematocrit (Bld) [Volume fraction] 31.6 % Low 37-47 [facility] Comment on above: Performed By: #### M 100.2200 #### [facility] [address] [place], [address] Hemoglobin (Bld) [Mass/Vol] 10.3 g/dL Low 12.0-15. 0 [facility] Comment on above: Performed By: #### M 100.2200 #### [facility] [address] [place], [address] IG% 0.300 Normal 0.0-0.9 [facility] Comment on above: Result Comment: IG% - Immature Granulocytes (promyelocytes, myelocytes and metamyelocytes) > 1% indicates that a LEFT SHIFT is Present. Performed By: #### M 100.2200 #### [facility] [address] [place], [address] Lymphocytes/100 WBC (Bld) 32.7 % Normal 19-41 [facility] Comment on above: Performed By: #### M 100.2200 #### [facility] [address] [place], [address] MCH (RBC) [Entitic mass] 30.6 pg Normal 27.0-32.0 [facility] Comment on above: Performed By: #### M 100.2200 #### [facility] [address] [place], [address] MCHC (RBC) [Mass/Vol] 32.6 g/dL Normal 32-36 [facility] Comment on above: Performed By: #### M 100.2200 #### [facility] [address] [place], [address] MCV (RBC) [Entitic vol] 93.8 fL Normal 81-[address] [facility] Comment on above: Performed By: #### M 100.2200 #### [facility] [address] [place], [address] Monocytes/100 WBC (Bld) 10.0 % Normal 0-10 [facility] Comment on above: Performed By: #### M 100.2200 #### [facility] [address] [place], [address] Neutrophils/100 WBC (Bld) 52.3 % Normal 47-70 [facility] Comment on above: Performed By: #### M 100.2200 #### [facility] [address] [place], [address] Nucleated RBC (Bld) [#/Vol] 0 10*3/uL Normal 0-5 [facility] Comment on above: Performed By: #### M 100.2200 #### [facility] [address] [place], [address] Platelet mean volume (Bld) [Entitic vol] 11.5 fL Normal 6.2-12.0 [facility] Comment on above: Performed By: #### M 100.2200 #### [facility] [address] [place], [address] Platelets (Bld) [#/Vol] 179 10*3/uL Normal 150-450 [facility] Comment on above: Performed By: #### M 100.2200 #### [facility] [address] [place], [address] RBC (Bld) [#/Vol] 3.37 10*6/uL Low 4.2-5.4 [facility] Comment on above: Performed By: #### M 100.2200 #### [facility] [address] [place], [address] RDW SD 46.0 fl High 35.1-43.9 [facility] Comment on above: Performed By: #### M 100.0 #### [facility] [address] [place], [address] WBC (Bld) [#/Vol] 6.4 10*3/uL Normal 4.4-11.0 [facility] Comment on above: Performed By: #### M 100.2199 #### [facility] [address] [place], [address] Carbon dioxide, total [Moles /volume] in Central venous bloodOrdered By: Clinton Fowler on 01-01-2025 CO2 [Moles/Vol] 23.1 mmol/L 21.0-32.0 [facility] Chloride assayOrdered By: Bettie Fowler on 01-01-2025 Chloride [Moles/Vol] 106 mmol/L 98-108 [facility] Comprehensive Metabolic Prof ilon 01-01-2025 Albumin [Mass/Vol] 3.5 g/dL Normal 3.4-4.8 [facility] Comment on above: Performed By: #### M 100.2199 #### [facility] [address] [place], [address] Albumin/Globulin [Mass ratio] 1.4 {ratio} Normal 0.9-2.4 [facility] Comment on above: Performed By: #### M 100.0 #### [facility] [address] [place], [address] ALK PHOS 74 U/L Normal 35-104 [facility] Comment on above: Performed By: #### M 100.0 #### [facility] [address] [place], [address] ALT [Catalytic activity/Vol] 24 U/L Normal <=34 [facility] Comment on above: Performed By: #### M 100.0 #### [facility] [address] [place], [address] AST [Catalytic activity/Vol] 27 U/L Normal <=31 [facility] Comment on above: Performed By: #### M 100.2200 #### [facility] [address] [place], [address] Bilirubin [Mass/Vol] 0.38 mg/dL Normal 0.00-1.30 [facility] Comment on above: Performed By: #### M 100.2200 #### [facility] [address] [place], [address] BUN/CRE 19.7 RATIO Normal 10-20 [facility] Comment on above: Performed By: #### M 100.2200 #### [facility] [address] [place], [address] Calcium [Mass/Vol] 9.4 mg/dL Normal 7.6-11.0 [facility] Comment on above: Performed By: #### M 100.2200 #### [facility] [address] [place], [address] Chloride [Moles/Vol] 106 mmol/L Normal 98-108 [facility] Comment on above: Performed By: #### M 100.2200 #### [facility] [address] [place], [address] CO2 [Moles/Vol] 23.1 mmol/L Normal 21.0-32.0 [facility] Comment on above: Performed By: #### M 100.2200 #### [facility] [address] [place], [address] Creatinine [Mass/Vol] 0.95 mg/dL Normal 0.70-1.20 [facility] Comment on above: Performed By: #### M 100.2200 #### [facility] [address] [place], [address] GAP 10 Normal 5-15 [facility] Comment on above: Performed By: #### M 100.2200 #### [facility] [address] [place], [address] GFR/1.73 sq M.predicted among non-blacks MDRD (S/P/Bld) [Vol rate/Area] 58 mL/min/{1.73_m2} Low >60 [facility] Comment on above: Result Comment: mL/m in/1.73m2 CKD-EPI Creatinine Equation (2020) Performed By: #### M 100.2200 #### [facility] [address] [place], [address] Globulin (S) [Mass/Vol] 2.6 g/dL Normal 2.2-4.[address] [facility] Comment on above: Performed By: #### M 100.2200 #### [facility] [address] [place], [address] Glucose [Mass/Vol] 172 mg/dL High 70-99 [facility] Comment on above: Performed By: #### M 100.2200 #### [facility] [address] [place], [address] Potassium [Moles/Vol] 4.2 mmol/L Normal 3.3-5.1 [facility] Comment on above: Performed By: #### M 100.2200 #### [facility] [address] [place], [address] Sodium [Moles/Vol] 139 mmol/L Normal 133-145 [facility] Comment on above: Performed By: #### M 100.2200 #### [facility] [address] [place], [address] T PROT 6.1 g/dL Normal 5.9-8.4 [facility] Comment on above: Performed By: #### M 100.2200 #### [facility] [address] [place], [place], [address] Urea nitrogen [Mass/Vol] 19 mg/dL Normal - [facility] Comment on above: Performed By: #### M 100.2200 #### [facility] [address] [place], [place], [address] Eosinophil percentageOrdered By: Clinton Fowler on 01-01-2025 Eosinophils/100 WBC (Bld) 3.3 % 0-5 [facility] Erythrocyte distribution wid th ratioOrdered By: Clinton Janeth on 01-01-2025 Erythrocyte distribution width (RBC) [Ratio] 13.3 % 11.6-14.6 [facility] Erythrocyte distribution wid th standard deviationOrdered By: Clinton Fowler on 01-01-2025 Erythrocyte distribution width (RBC) [Ratio] 46.0 fl High 35.1-43.9 [facility] Glomerular filtration rate ( GFR) estimation/1.73 sq m using serum, plasma, or whole bOrdered By: Clinton Fowler on 01-01-2025 GFR/1.73 sq M.predicted among non-blacks MDRD (S/P/Bld) [Vol rate/Area] 58 mL/min/{1.73_m2} Low >60 [facility] Comment on above: mL/min/1.73m2 CKD-EP I Creatinine Equation (2020) Hematocrit Auto (Bld) [Volum e fraction]Ordered By: Clinton Fowler on 01-01-2025 Hematocrit (Bld) [Volume fraction] 31.6 % Low 37-47 [facility] Hemoglobin A1con 01-01-2025 HbA1c (Bld) [Mass fraction] 7.1 % High <=5.6 [facility] Comment on above: Result Comment: Norm al < 5.7 % Prediabetic 5.7 - 6.4 % Diabetic >or= 6.5 % Please note range changes. Performed By: #### M 100.2200 #### [facility] [address] [place], [place], [address] Hemoglobin A1c percentageOrd ered By: Clinton Fowler on 01-01-2025 HbA1c (Bld) [Mass fraction] 7.1 % High <5.7 [facility] Comment on above: Normal < 5.7 % Predi abetic 5.7 - 6.4 % Diabetic >or= 6.5 % Please note range changes. Hemoglobin measurementOrdere d By: Clinton Fowler on 01-01-2025 Hemoglobin (Bld) [Mass/Vol] 10.3 g/dL Low 12.0-15. 0 [facility] Immature granulocytes/100 WB C Auto (Bld)Ordered By: Clinton Fowler on 01-01-2025 Immature granulocytes/100 WBC (Bld) 0.300 % 0.0-0.9 [facility] Comment on above: IG% - Immature Granu locytes (promyelocytes, myelocytes and metamyelocytes) > 1% indicates that a LEFT SHIFT is Present. Laboratory - Chemistry and C hemistry - challengeOrdered By: Clinton Fowler on 01-01-2025 AST [Catalytic activity/Vol] 27 U/L <32 [facility] MCV (mean corpuscular volume ) determinationOrdered By: Clinton Fowler on 01-01-2025 MCV (RBC) [Entitic vol] 93.8 fL 81-[address] [facility] Mean corpuscular hemoglobin (MCH) determinationOrdered By: Clinton Fowler on 01-01-2025 MCH (RBC) [Entitic mass] 30.6 pg 27.0-32.0 [facility] Mean corpuscular hemoglobin concentration (MCHC) determinationOrdered By: Clinton Fowler on 01-01-2025 MCHC (RBC) [Mass/Vol] 32.6 g/dL 32-36 [facility] Mean platelet volume determi nationOrdered By: Clinton Fowler on 01-01-2025 Platelet mean volume (Bld) [Entitic vol] 11.5 fL 6.2-12.0 [facility] Monocyte percentageOrdered B y: Clinton Fowler on 01-01-2025 Monocytes/100 WBC (Bld) 10.0 % 0-[address] [facility] Neutrophil percentageOrdered By: Clinton Fowler on 01-01-2025 Neutrophils/100 WBC (Bld) 52.3 % 47-70 [facility] Nucleated red blood cell per centageOrdered By: Clinton Fowler on 01-01-2025 Nucleated RBC/100 WBC (Bld) [Ratio] 0 % 0-5 [facility] Platelet countOrdered By: Bettie Fowler on 01-01-2025 Platelets (Bld) [#/Vol] 179 10*3/uL 150-450 [facility] Potassium measurement (mass/ volume)Ordered By: Clinton Fowler on 01-01-2025 Potassium (Unsp spec) [Mass/Vol] 4.2 mmol/L 3.3-5.1 [facility] RBC Auto (Bld) [#/Vol]Ordere d By: Clinton Fowler on 01-01-2025 RBC (Bld) [#/Vol] 3.37 10*6/uL Low 4.2-5.4 [facility] Serum creatinine measurement (mass/volume)Ordered By: Clinton Fowler on 01-01-2025 Creatinine [Mass/Vol] 0.95 mg/dL 0.70-1.20 [facility] Serum globulin measurementOr dered By: Clinton Fowler on 01-01-2025 Globulin (S) [Mass/Vol] 2.6 g/dL 2.2-4.[address] [facility] Serum glucose measurement (m ass/volume)Ordered By: Clinton Fowler on 01-01-2025 Glucose [Mass/Vol] 172 mg/dL High 70-99 [facility] Serum or plasma alanine lay otransferase (ALT) measurementOrdered By: Clinton Fowler on 01-01-2025 ALT [Catalytic activity/Vol] 24 U/L <35 [facility] Serum or plasma albumin beck urement (mass/volume)Ordered By: Clinton Fowler on 01-01-2025 Albumin [Mass/Vol] 3.5 g/dL 3.4-4.8 [facility] Serum or plasma albumin/glob ulin mass ratioOrdered By: Clinton Fowler on 01-01-2025 Albumin/Globulin [Mass ratio] 1.4 {ratio} 0.9-2.4 [facility] Serum or plasma alkaline hector sphatase measurementOrdered By: Clinton Fowler on 01-01-2025 ALP [Catalytic activity/Vol] 74 U/L 35-104 [facility] Serum or plasma calcium beck urement (mass/volume)Ordered By: Clinton Fowler on 01-01-2025 Calcium [Mass/Vol] 9.4 mg/dL 7.6-11.0 [facility] Serum or plasma urea nitroge n measurement (mass/volume)Ordered By: Clinton Fowler on 01-01-2025 Urea nitrogen [Mass/Vol] 19 mg/dL 4-19 [facility] Sodium levelOrdered By: Clinton Fowler on 01-01-2025 Sodium [Moles/Vol] 139 mmol/L 133-145 [facility] Total proteinOrdered By: Brynn Fowler on 01-01-2025 Protein [Mass/Vol] 6.1 g/dL 5.9-8.4 [facility] White blood cell (WBC) count Ordered By: Clinton Fowler on 01-01-2025 WBC (Bld) [#/Vol] 6.4 10*3/uL 4.4-11.0 [facility] Gastroenterology Visit Repor ton 12-11-2024 Gastroenterology Visit Report [facility] [address] [place] [address] OFFICE VISIT Date of Service: 12/11/24 MR#: [id number] Acct: [id number] Name: LIZA VELASQUEZ Rep #: [id number] : 1935 Provider: Hung Adames DO Age/Sex: 89/F Location: [facility] [place] Status: Signed Intake Vital Signs 06/07/23 22:34 06/28/24 15:08 Height 5 ft 3 in 5 ft 3 in Intake Visit Reasons: 6 Month f/u Allergies pollen extracts Allergy (Intermediate, Verified 06/28/24 15:11) PT UNSURE OF REACTION Medications ???Medication ???Instructions ???Recorded ???Confirmed ???Type omeprazole 40 mg capsule,delayed 40 mg PO DAILY GERD 01/06/1412/11 History release cholecalciferol (vitamin D3) 25 1,000 unit PO DAILY supplement 12/11/24 History mcg (1,000 unit) capsule donepezil 5 mg tablet 10 mg PO QHS memory 08/28/1612/11 History metformin 500 mg tablet 500 mg PO DAILY blood sugar 12/11/24 History cinnamon bark 500 mg capsule 1,000 mg PO DAILY supplement 11/3012/11/24 History atorvastatin 80 mg tablet 80 mg PO QHS cholesterol #30 tabs 12/03/17 12/11/24 Rx gfddnldw-hve-luxyk acid 0.4 1 ea PO BID supplement 12/03/18 History mg-lycopene 300 mcg-lutein 250 mcg tablet memantine 10 mg tablet 10 mg PO BID mental health 2 12/11/24 History ramipril 5 mg capsule 5 mg PO DAILY blood pressure 01/1112/11/24 History ropinirole 0.25 mg tablet 0.5 mg PO QHS restless legs 12/11/24 History Held on 06/07/23. Instructions: unsure if she still takes modafinil 100 mg tablet 200 mg PO DAILY sleepiness 3 12/11/24 History aspirin 81 mg chewable tablet 81 mg PO BREAKFAST #30 tabs 12/11/24 Rx glipizide 5 mg tablet 2.5 mg PO BID DM 01/12/23 12/11/24 History acetaminophen 500 mg tablet 500 mg PO Q4H PRN fever or pain 12/11/24 History (Tylenol Extra Strength) nitrofurantoin 100 mg PO Q12 #10 CAPSULES 4 12/11/24 Rx monohydrate/macrocrys tals 100 mg capsule hkauep-vetimooj-ibwjq se 3 cap PO .aqc #300 caps 07/24/24 0 12/11/24 Rx 36,000-114,000-180,00 0 unit capsule,delay rel (Creon) Have you fallen in the past year?: No [facility] Medical History GERD (gastroesophageal reflux disease) TIA (transient ischemic attack) GI bleed Alzheimer disease Exocrine pancreatic insufficiency Falls Mental status alteration Loose stools AMS (altered mental status) History of Sjogren's disease RLS (restless legs syndrome) Varicose veins of leg with edema Bowel incontinence Chronic diarrhea Anemia due to stage 3 chronic kidney disease Noninfective gastroenteritis and colitis, unspecified Hearing loss, left Hearing loss, right Non-smoker CPAP (continuous positive airway pressure) dependence History of stroke Type 2 diabetes mellitus without complications Arthritis Dementia CVA (cerebral vascular accident) Nausea and vomiting in adult DM (diabetes mellitus), type 2 Surgical History H/O lumpectomy H/O: hysterectomy History of tonsillectomy Family History Mother Alzheimer disease Brother Alzheimer disease Aunt Alzheimer disease Father Heart disease Social History household members: spouse Smoking Status: Never smoker alcohol intake: never substance use type: does not use HPI HPI Details: LIZA VELASQUEZ, is a 89 F who presents to the office today for follow up. PMH includes DMII (metformin), Alzheimer disease, anemia r/t CKD stage 3; Sjogrens syndrome, fibromyalgia. PCP OV noting GERD and loose stools daily with bowel incontinence without abdominal pain since 2018 at minimum. Utilizes OTC immodium with some positive effect, has concerns regarding constipation with use of this. *BGI established . with referral from PCP. reports one loose BM a day with incontinence with normal coloring. Immodium is helpful, but he has concerns regarding constipation. Liza has advanced Alzheimer???s disease and does not speak. Biochemical CBC (hgb 10.1), ESR, CMP, CRP, LDH, TSH, T4, ferritin, celiac, GAME, ANCA, LISSETTE, coagulation without pertinent abnormality. T3 L1.6 (PCP updated), anti-dbl strand DNA ab + (known Sjogrens) Stool studies O/P, giardia, EP, occult. C.Difficile cancelled, formed.? Lactoferrin +, Calprotectin H423, total fecal fat elevated, elastase L75 OV 1 Loose stools ??? biochemical workup, stool studies, imaging. ? Biochemical workup CBC, ESR, coagulation, ferritin, LFT, CRP, TS (more content not included)... Normal [facility] Urine Cultureon 06-30-2024 [facility] Presumptive E. coli [place] Count >100,000 Presumptive E. coli: REACTION Ampicillin Islt JIMI 4 Ampicillin+Sulbac Islt JIMI <=2 S Cefepime Islt JIMI <=0.12 S cefTRIAXone Islt JIMI <=0.25 S Ciprofloxacin Islt JIMI >=4 R B-Lactamase Extended Susc Islt NEG Gentamicin Islt JIMI <=1 S levoFLOXacin Islt JIMI >=8 R Meropenem Islt JIMI <=0.25 S Nitrofurantoin Islt JIMI <=16 S Pip+Tazo Islt JIMI <=4 S TMP SMX Islt JIMI <=20 S Normal [facility] Comment on above: Performed By: #### M 100.2200 #### [facility] [address] [place], [address] Urine Cultureon 06-29-2024 [facility] UNABLE TO CHANGE INTERFACE TO CLEAN CATCH Urine Culture Normal [facility] Comment on above: Performed By: #### M 100.2200 #### [facility] [address] [place], [address] Abdomen/Pelvis without Conto n 06-28-2024 Abdomen/Pelvis without Cont [facility] [address] [place] [address] Abdomen/Pelvis without Cont MR#: [id number] Acct: [id number] Name: LIZA VELASQUEZ Rep #: [id number] : 1935 F 89 From: Lauren Sahni MD PCP: Dr. Clinton Fowler, DO Status: REG ER Study: Abdomen/Pelvis without Cont Date of Exam: 06/15 11/06 Exam# [id number] Ordering Dr: Nikita Alvarado MD [id number] INDICATION: Right lower quadrant pain. PATIENT HAS ALZHEIMER''S , SCAN X 2 UNABLE TO FOLLOWING BREATHING INSTRUCTIONS EXAMINATION: CT ABDOMEN AND PELVIS WITHOUT CONTRAST - CT Abdomen And Pelvis W/O Contrast Injection TECHNIQUE: Helically acquired images were obtained of the abdomen and pelvis without oral or IV contrast. The protocol utilizes one or more of the following dose reduction techniques: automated exposure control, adjustment of mA and/or kV according to patient size,and/or use of iterative reconstruction technique. IV Contrast dosage and agent: None. Oral contrast: None. RADIATION DOSAGE (If Supplied By Facility): CTDIvol = ( 18.31 ) mGy, DLP = ( 1931.17 ) mGycm COMPARISON: January 12, 2023 __ FINDINGS: There is motion artifact degrading anatomic detail. LOWER CHEST: There is minimal bibasilar atelectasis and/or scarring. There are coronary artery calcifications. There are right hilar calcified lymph nodes. The lack of intravenous contrast limits evaluation of solid visceral organs. LIVER: Homogeneous. No focal mass. GALLBLADDER AND BILIARY TREE: No calcified gallstones. No gallbladder distension or wall edema. No intra- or extrahepatic biliary ductal dilation. PANCREAS: No focal cystic or solid mass. SPLEEN: Normal size without focal cystic or solid mass. ADRENAL GLANDS: No nodules. KIDNEYS AND URETERS: Normal renal size and position. No hydronephrosis. PERITONEUM: No ascites or free air. No other fluid collection. BOWEL: No stomach or bowel distension. There is a duodenal diverticulum. There are diverticula arising from the colon. There is nonvisualization of the appendix No focal inflammatory change. LYMPH NODES: No enlarged mesenteric or retroperitoneal lymph nodes. VESSELS: Aorta is non-dilated. There are vascular calcifications. URINARY BLADDER: Unremarkable. REPRODUCTIVE ORGANS: No pelvic masses. ABDOMINAL WALL: No discrete abdominal or pelvic wall hernia. BONES: There are degenerative changes of the lumbar spine. There is a grade 1 anterior spondylolisthesis of L4 on L5. CT/Abdomen/Pelvis without Cont IMPRESSION: Limited examination secondary to the lack of intravenous contrast and motion artifact. Colonic diverticulosis. Atherosclerosis. Multilevel degenerative changes of the visualized thoracic and lumbar spine. Grade 1 anterior spondylolisthesis of L4 on L5. Electronically Signed: Lauren Sahni MD at 16:10 EST , CC: Dr. Nikita Alvarado MD; Dr. Clinton Fowler DO Petal Cutter: Signed Normal [facility] CBC W/Diff, Automatedon 06-15 Absolute Lymph 2.45 X10 3/uL Normal 0.83-4.51 [facility] Comment on above: Performed By: #### L 500.4050, L100.0100 #### [facility] [address] [place], [address] Absolute Neut 4.5 X10 3/uL Normal 2.0-7.7 [facility] Comment on above: Performed By: #### L 500.4050, L100.0100 #### [facility] [address] [place], [address] Basophils/100 WBC (Bld) 0.9 % Normal 0-[address] [facility] Comment on above: Performed By: #### L 500.4050, L100.0100 #### [facility] [address] [place], [address] Eosinophils/100 WBC (Bld) 3.7 % Normal 0-5 [facility] Comment on above: Performed By: #### L 500.4050, L100.0100 #### [facility] [address] [place], [address] Erythrocyte distribution width (RBC) [Ratio] 13.2 % Normal 11.6-14.6 [facility] Comment on above: Performed By: #### L 500.4050, L100.0100 #### [facility] [address] [place], [address] Hematocrit (Bld) [Volume fraction] 33.9 % Low 37-47 [facility] Comment on above: Performed By: #### L 500.4050, L100.0100 #### [facility] [address] [place], [address] Hemoglobin (Bld) [Mass/Vol] 11.2 g/dL Low 12.0-15. 0 [facility] Comment on above: Performed By: #### L 500.4050, L100.0100 #### [facility] [address] [place], [address] IG% 0.600 Normal 0.0-0.9 [facility] Comment on above: Result Comment: IG% - Immature Granulocytes (promyelocytes, myelocytes and metamyelocytes) > 1% indicates that a LEFT SHIFT is Present. Performed By: #### L 500.4050, L100.0100 #### [facility] [address] [place], [address] Lymphocytes/100 WBC (Bld) 30.6 % Normal 19-41 [facility] Comment on above: Performed By: #### L 500.4050, L100.0100 #### [facility] [address] [place], [address] MCH (RBC) [Entitic mass] 31.6 pg Normal 27.0-32.0 [facility] Comment on above: Performed By: #### L 500.4050, L100.0100 #### [facility] [address] [place], [address] MCHC (RBC) [Mass/Vol] 33.0 g/dL Normal 32-36 [facility] Comment on above: Performed By: #### L 500.4050, L100.0100 #### [facility] [address] [place], [address] MCV (RBC) [Entitic vol] 95.8 fL Normal 81-[address] [facility] Comment on above: Performed By: #### L 500.4050, L100.0100 #### [facility] [address] [place], [address] Monocytes/100 WBC (Bld) 8.5 % Normal 0-[address] [facility] Comment on above: Performed By: #### L 500.4050, L100.0100 #### [facility] [address] [place], [address] Neutrophils/100 WBC (Bld) 55.7 % Normal 47-70 [facility] Comment on above: Performed By: #### L 500.4050, L100.0100 #### [facility] [address] [place], [address] Nucleated RBC (Bld) [#/Vol] 0 10*3/uL Normal 0-5 [facility] Comment on above: Performed By: #### L 500.4050, L100.0100 #### [facility] [address] [place], [address] Platelet mean volume (Bld) [Entitic vol] 10.4 fL Normal 6.2-12.0 [facility] Comment on above: Performed By: #### L 500.4050, L100.0100 #### [facility] [address] [place], [address] Platelets (Bld) [#/Vol] 208 10*3/uL Normal 150-450 [facility] Comment on above: Performed By: #### L 500.4050, L100.0100 #### [facility] [address] [place], [address] RBC (Bld) [#/Vol] 3.54 10*6/uL Low 4.2-5.4 [facility] Comment on above: Performed By: #### L 500.4050, L100.0100 #### [facility] [address] [place], [address] RDW SD 46.5 fl High 35.1-43.9 [facility] Comment on above: Performed By: #### L 500.4050, L100.0100 #### [facility] [address] [place], [address] WBC (Bld) [#/Vol] 8.0 10*3/uL Normal 4.4-11.0 [facility] Comment on above: Performed By: #### L 500.4050, L100.0100 #### [facility] [address] [place], [address] Comprehensive Metabolic Prof [facility] 06-28-2024 Albumin [Mass/Vol] 3.3 g/dL Normal 3.2-5.0 [facility] Comment on above: Performed By: #### L 500.4050, L100.0100 #### [facility] [address] [place], [address] Albumin/Globulin [Mass ratio] 1.0 {ratio} Normal 0.9-2.4 [facility] Comment on above: Performed By: #### L 500.4050, L100.0100 #### [facility] [address] [place], [address] ALK P 79 U/L Normal 45-117 [facility] Comment on above: Performed By: #### L 500.4050, L100.0100 #### [facility] [address] [place], [address] ALT [Catalytic activity/Vol] 24 U/L Normal 13-56 [facility] Comment on above: Performed By: #### L 500.4050, L100.0100 #### [facility] [address] [place], [address] AST [Catalytic activity/Vol] 19 U/L Normal 15-37 [facility] Comment on above: Performed By: #### L 500.4050, L100.0100 #### [facility] [address] [place], [address] Bilirubin [Mass/Vol] 0.30 mg/dL Normal 0.20-1.00 [facility] Comment on above: Result Comment: For patients on eltrombopag therapy, use of Dimension [place] TBIL is not recommended. Performed By: #### L 500.4050, L100.0100 #### [facility] [address] [place], [address] BUN/CRE 26.7 RATIO High 10-20 [facility] Comment on above: Performed By: #### L 500.4050, L100.0100 #### [facility] [address] [place], [address] CA,Total 9.0 mg/dL Normal 8.5-10.1 [facility] Comment on above: Performed By: #### L 500.4050, L100.0100 #### [facility] [address] [place], [address] Chloride [Moles/Vol] 107 mmol/L Normal 98-107 [facility] Comment on above: Performed By: #### L 500.4050, L100.0100 #### [facility] [address] [place], [address] CO2 [Moles/Vol] 30.0 mmol/L Normal 21.0-32.0 [facility] Comment on above: Performed By: #### L 500.4050, L100.0100 #### [facility] [address] [place], [address] Creatinine [Mass/Vol] 1.05 mg/dL High 0.55-1.02 [facility] Comment on above: Result Comment: The validity of the calculated GFR GFRAA in patients over 70 years has not been determined. Clinical correlation is essential. Performed By: #### L 500.4050, L100.0100 #### [facility] [address] [place], [address] ECRCL 37.79 ml/min Normal [facility] Comment on above: Performed By: #### L 500.4050, L100.0100 #### [facility] [address] [place], [address] EST GFR - AA 64 mL/min Normal >60 [facility] Comment on above: Result Comment: Afri can Indian GFR Calc Performed By: #### L 500.4050, L100.0100 #### [facility] [address] [place], [address] GAP 1 Low 5-15 [facility] Comment on above: Performed By: #### L 500.4050, L100.0100 #### [facility] [address] [place], [address] GFR/1.73 sq M.predicted among non-blacks MDRD (S/P/Bld) [Vol rate/Area] 53 mL/min/{1.73_m2} Low >60 [facility] Comment on above: Result Comment: Non- GFR Calc Performed By: #### L 500.4050, L100.0100 #### [facility] [address] [place], [address] Globulin (S) [Mass/Vol] 3.2 g/dL Normal 2.2-4.2 [facility] Comment on above: Performed By: #### L 500.4050, L100.0100 #### [facility] [address] [place], [address] Glucose [Mass/Vol] 176 mg/dL High 74-106 [facility] Comment on above: Result Comment: Fast ing Glucose result greater than or equal to 126 mg/dL suggests DIABETES MELLITUS per A.D.A. criteria. Performed By: #### L 500.4050, L100.0100 #### [facility] [address] [place], [address] Potassium [Moles/Vol] 4.4 mmol/L Normal 3.5-5.1 [facility] Comment on above: Performed By: #### L 500.4050, L100.0100 #### [facility] [address] [place], [address] Sodium [Moles/Vol] 139 mmol/L Normal 136-145 [facility] Comment on above: Performed By: #### L 500.4050, L100.0100 #### [facility] [address] [place], [address] T PROT 6.5 g/dL Normal 6.4-8.2 [facility] Comment on above: Performed By: #### L 500.4050, L100.0100 #### [facility] [address] [place], [address] Urea nitrogen [Mass/Vol] 28 mg/dL High 7-18 [facility] Comment on above: Performed By: #### L 500.4050, L100.0100 #### [facility] [address] [place], [address] Emergency Department Summary on 06-28-2024 Emergency Department Summary [facility] Medical Records Department [address] [place] [address] Emergency Department Summary 06/28/24 MR#: [id number] Acct: [id number] Name: LIZA VELASQUEZ Rep #: [id number] : 1935 89 From: Nikita Alvarado MD PCP: Dr. Clinton Fowler, DO Status:REG ER Location: ED HPI HPI - GI History of Present Illness Chief Complaint: Abd Pain Informant: patient and spouse/S.O. Narrative Narrative: 89-year-old female with significant Alzheimer's dementia brought by because she complained of pain in her right lower quadrant about 30 minutes ago. She cannot provide any history. She has had no vomiting, she chronically has some urinary incontinence but nothing unusual today. She ate earlier without any problem. [facility] Medical History GERD (gastroesophageal reflux disease) TIA (transient ischemic attack) GI bleed Alzheimer disease Exocrine pancreatic insufficiency Falls Mental status alteration Loose stools AMS (altered mental status) History of Sjogren's disease RLS (restless legs syndrome) Varicose veins of leg with edema Bowel incontinence Chronic diarrhea Anemia due to stage 3 chronic kidney disease Noninfective gastroenteritis and colitis, unspecified Hearing loss, left Hearing loss, right Non-smoker CPAP (continuous positive airway pressure) dependence History of stroke Type 2 diabetes mellitus without complications Arthritis Dementia CVA (cerebral vascular accident) Nausea and vomiting in adult DM (diabetes mellitus), type 2 Home Medications ???Medication ???Instructions ???Recorded ???Last Taken ???Type omeprazole 40 mg capsule,delayed 40 mg PO DAILY GERD 01/06/14 01/11/23 History release cholecalciferol (vitamin D3) 25 1,000 unit PO DAILY supplement 08/28/16 01/11/23 History mcg (1,000 unit) capsule donepezil 5 mg tablet 10 mg PO QHS memory 08/28/16 01/11/23 History metformin 500 mg tablet 500 mg PO DAILY blood sugar 08/28/16 01/11/23 History cinnamon bark 500 mg capsule 1,000 mg PO DAILY supplement 11/30/17 01/11/23 History atorvastatin 80 mg tablet 80 mg PO QHS cholesterol #30 tabs 12/03/17 01/11/23 Rx yudykhfs-nfd-mirlo acid 0.4 1 ea PO BID supplement 12/03/18 01/11/23 History mg-lycopene 300 mcg-lutein 250 mcg tablet memantine 10 mg tablet 10 mg PO BID mental health 09/11/21 01/11/23 History ramipril 5 mg capsule 5 mg PO DAILY blood pressure 01/11/22 01/11/23 History ropinirole 0.25 mg tablet 0.5 mg PO QHS restless legs 01/11/22 01/11/23 History modafinil 100 mg tablet 200 mg PO DAILY sleepiness 09/16/22 01/11/23 History aspirin 81 mg chewable tablet 81 mg PO BREAKFAST #30 tabs 09/20/22 01/11/23 Rx glipizide 5 mg tablet 2.5 mg PO BID DM 01/12/23 01/11/23 History acetaminophen 500 mg tablet 500 mg PO Q4H PRN fever or pain 06/07/23 Unknown History (Tylenol Extra Strength) pmshag-rznyusvw-ugxsm se See Rx Instructions PO .COMPLEX 07/02/23 Unknown Rx 36,000-114,000-180,00 0 unit supplement #160 caps capsule,delay rel (Creon) nitrofurantoin 100 mg PO Q12 #10 CAPSULES 06/28/24 Unknown Rx monohydrate/macrocrys tals 100 mg capsule Allergy/AdvReac Type Severity Reaction Status Date / Time pollen extracts Allergy Intermediate PT UNSURE Verified 06/28/24 15:11 OF REACTION Family History Mother Alzheimer disease Brother Alzheimer disease Aunt Alzheimer disease Father Heart disease Surgical History H/O lumpectomy H/O: hysterectomy History of tonsillectomy Social History household members: spouse Smoking Status: Never smoker alcohol intake: never substance use type: does not use ROS ROS ED Review of Systems ROS Unobtainable: due to mental condition Cardiovascular Cardiovascular: Denies chest pain Gastrointestinal Gastrointestinal: Reports abdominal pain; Denies vomiting Musculoskeletal Musculoskeletal: Denies back pain Neurologic Neurologic: Denies headache(s) EXAM Physical Exam Const Vital Signs: 06/28/24 15:08 06/28/24 15:10 06/28/24 16:10 Temperature 97.2 F L 97.2 F L 97.8 F Temperature Source Temporal Temporal Oral Pulse Rate 61 60 88 Respiratory Rate 15 15 16 Blood Pressure 179/89 H 179/89 H 132/67 H Blood Pressure Mean 119 119 88 Pulse Ox 97 97 98 Oxygen Delivery Method Room Air Room Air Room Air Positive well nourished and well developed General Appearance ED: well developed and NAD HEENT Reports moist mucous membranes normocephalic and atraumatic Eyes PERRL and EOMs intact bilaterally Neck full ROM and supple Resp normal respiratory effort and cl (more content not included)... Normal [facility] Urinalysis, Completeon 06-28 BACTERIA 3+ /hpf Normal None Seen [facility] Comment on above: Order Comment: LUCIA TER SPECIMEN Performed By: #### L 400.0001 #### [facility] [address] [place], [address] EPI,SQUAMOUS 0-5 SEEN Normal 5-10 [facility] Comment on above: Order Comment: LUCIA TER SPECIMEN Performed By: #### L 400.0001 #### [facility] [address] [place], [address] Mucus Ql (Urine sed) 1+ /hpf Normal [facility] Comment on above: Order Comment: LUCIA TER SPECIMEN Performed By: #### L 400.0001 #### [facility] [address] [place], [address] WBC 5-10 SEEN Normal 0-5 [facility] Comment on above: Order Comment: LUCIA TER SPECIMEN Performed By: #### L 400.0001 #### [facility] [address] [place], [address] RBC 0 SEEN Normal 0-5 [facility] Comment on above: Order Comment: LUCIA TER SPECIMEN Performed By: #### L 400.0001 #### [facility] [address] [place], [address] Gastroenterology Visit Repor ton 06-09-2024 Gastroenterology Visit Report [facility] [address] [place] [address] OFFICE VISIT Date of Service: 06/09/24 MR#: [id number] Acct: [id number] Name: LIZA VELASQUEZ Rep #: [id number] : 1935 Provider: Hung Adames DO Age/Sex: 89/F Location: [facility] Status: Signed Intake Vital Signs 06/07/23 22:34 Height 5 ft 3 in Intake Visit Reasons: 6 M FU Chief Complaint: fatigue Allergies pollen extracts Allergy (Intermediate, Verified 01/16/24 15:30) PT UNSURE OF REACTION Have you fallen in the past year?: No PFSH Medical History Alzheimer disease AMS (altered mental status) Anemia due to stage 3 chronic kidney disease Arthritis Bowel incontinence Chronic diarrhea CPAP (continuous positive airway pressure) dependence CVA (cerebral vascular accident) Dementia DM (diabetes mellitus), type 2 Exocrine pancreatic insufficiency Falls GERD (gastroesophageal reflux disease) GI bleed Hearing loss, left Hearing loss, right History of Sjogren's disease History of stroke Loose stools Mental status alteration Nausea and vomiting in adult Non-smoker Noninfective gastroenteritis and colitis, unspecified RLS (restless legs syndrome) TIA (transient ischemic attack) Type 2 diabetes mellitus without complications Varicose veins of leg with edema Surgical History H/O lumpectomy H/O: hysterectomy History of tonsillectomy Family History Mother Alzheimer disease Brother Alzheimer disease Aunt Alzheimer disease Father Heart disease Social History household members: spouse Smoking Status: Never smoker alcohol intake: never substance use type: does not use HPI HPI Chief Complaint: fatigue Details: LIZA VELASQUEZ, is a 89 F who presents to the office today for follow up. PMH includes DMII (metformin), Alzheimer disease, anemia r/t CKD stage 3; Sjogrens syndrome, fibromyalgia. PCP OV noting GERD and loose stools daily with bowel incontinence without abdominal pain since 2018 at minimum. Utilizes OTC immodium with some positive effect, has concerns regarding constipation with use of this. *BGI established 08.10.22 with referral from PCP. reports one loose BM a day with incontinence with normal coloring. Immodium is helpful, but he has concerns regarding constipation. Liza has advanced Alzheimer???s disease and does not speak. Biochemical CBC (hgb 10.1), ESR, CMP, CRP, LDH, TSH, T4, ferritin, celiac, GAME, ANCA, LISSETTE, coagulation without pertinent abnormality. T3 L1.6 (PCP updated), anti-dbl strand DNA ab + (known Sjogrens) Stool studies O/P, giardia, EP, occult. C.Difficile cancelled, formed.? Lactoferrin +, Calprotectin H423, total fecal fat elevated, elastase L75 OV ..23 Loose stools ??? biochemical workup, stool studies, imaging. ? Biochemical workup CBC, ESR, coagulation, ferritin, LFT, CRP, TSH, T4, GAME, LISSETTE, celiac without pertinent abnormality. ? T3 L1.6, Dbl strand DNA H18 ? CT abd/pel .03.07 mild hepatomegaly, normal spleen; diverticulosis; calcified fibroid uterus; pulmonary basilar atelectasis versus scarring. [facility] hospitalization 09.16.22-09.20.22 [facility] ED presentation for change in mental status and functional ability. No acute finding with workup, but admitted r/t loss of function; she was found to have CVA, falls, mental status alteration and hyperglycemia. Contact 10.13.22 with ongoing loose stools continue Creon, take at beginning of meal. Start colestipol BID Contact 10.18.22 with continued diarrhea despite colestipol. Increase colestipol to two tabs BID and follow up Sunday. Diarrhea continued, biochemical workup and stool testing ordered. ? Biochemical 10.23.22 IBD WNL. ? Stool calprotectin, C.Difficile, EP WNL. Lactoferrin +, elastase L<50 Contact 10.31.22 with results. Start doxycycline to eliminate possible SIBO interfering with EPI. Contact 11.16.22 reporting that doxycycline was very helpful with Liza???s stools and she is now having mostly formed stools. Questioning cessation of Creon as it is expensive. Hesitant to apply for assistance program r/t assets, but is willing to try. OV 12.05.22 Creon supply exhausted 12.04.22, he was stretching the supply to make is last and using 4 capsules/day total, included digestive enzymes. Last Sunday she had a formed stool; but then had loose stools Sunday, does not feel there was a significant change between Fr (more content not included)... Normal [facility] Inital Evaluation (1) - PTon 02-27-2024 Inital Evaluation (1) - PT [facility] [address] [place] [address] [address] [place] [address] / REHABILITATION SERVICES INITIAL EVALUATION MR#: [id number] Acct: [id number] Name: LIZA VELASQUEZ Rep #: [id number] : 1935 89 From: Will Cramer DPT Referring Dr.: KALEIGH Liu Status: R EG RCR Insurance: MEDICARE PART A B [employer] Patient's Visit Information Visit Information Visit Information: LIZA VELASQUEZ is a 89 year old F referred to Physical Therapy by KALEIGH Liu with a diagnosis of General Debility. Date of Evaluation: 02/07/24 Physical Therapist: Will Cramer DPT Visit Plan Frequency: 1x/Week Duration: 6 Weeks Plan: Start with BLE strengthening including sit to stand, heel raises, hip strengthening. Progress endurance and functional strengthening as tolerated. Progress HEP. I gave her exercises today, pt. spouse wants to trial her HEP for the next few weeks then come back to PT to update. Subjective Subjective: Pt is here today for her initial evaluation with diagnosis of general debility. Pt. arrives with spouse with use of a FWW. Pt. comes in with spouse. He reports she has dementia. Spouse was there to help with the subjective. Spouse reports Liza sleeps a lot. She is having increased difficulty with walking and fatigues rapidly. No falls, except she did slide out of bed one night. Spouse in available for most of the day and helps her a lot. She likes taking car rides. Overall she fatigues quickly. Physician would like her to work on overall strengthening of her LEs and improve her stability. No pain noted. Objective Objective: POSTURE: Pt. has fairly flexed posture in sitting and standing. Overall slouched posture. PALPATION: Pt. has no tenderness with palpation of BLEs. NEURO: Pt. has normal sensation in BLEs and normal DTR bilateral. Pt. is able to rise on toes, but difficulty rocking back on heels. ROM: pt. has tightness in B HS and mod stiffness throughout lumbar spine. MMT: RLE: knee: ext 15.1#, flexion 13.5#; hip: flexion 6.9#. LLE: knee: ext 14.3#, flexion 12.9#, hip: flexion 7.3#. GAIT: Pt. ambulates with FWW with CBA 1x137' prior to fatigue. TUsec with FWW. 30 sec sit to stand rep test: 5 without use of UEs. Balance/Special Test Scores Lower Extremity Functional Score: 0 Goals Goal 1:: LTG: Pt. to be I with HEP for BLE strengthening. Goal Time Frame: 4-6 Weeks Goal 2:: LTG: PT. to complete 30sec sit to stand rep test with 8 reps indicating increased BLE strength. Goal Time Frame: 4-6 Weeks Goal 3:: LTG: pt. to complete TUG with time less than 25seconds indicating improved stability with functional mobility. Goal Time Frame: 4-6 Weeks Goal 4:: LTG: pt. to have increased BLE strength increased by 5# throughout. Goal Time Frame: 4-6 Weeks Rehabilitation Potential Physical Therapy Diagnosis: Pt. has signs and symptoms consistent with general debility with dementia. Pt. has had an over decline over the past few years. She has marked weakness in BLEs and difficulty with gait. Pt. would benefit from PT to address the above limitations. Rehabilitation Potential: Good Anticipated Interventions Patient/Client Instruction: Educate patient on: Condition, Plan of Care, Risk Factors and Benefits of Fitness Program For the Purpose of:: To facilitate caregiver knowledge, To improve self management, To prevent re- injury, To improve ability to perform tasks related to life management and To improve tolerance to ADL's Therapeutic Exercise to Include: Strength training, Power training, Endurance training and Balance training For the Purpose of:: To improve muscle performance and motor function, To improve ability to perform ADL's, To increase tolerance to activity/condition/po sition, To improve performance and independence with ADL's, To improve health of tissue, To decrease soft tissue restriction, To increase flexibility/ROM, To improve balance and To improve safety with gait Text: Thank you for the opportunity to evaluate your patient. For Medicare and Medicare HMO plans, please review the plan of care and approve it. It will need to be FAXED BACK to us at [phone] for Medicare purposes. For Medicare only, by signing this I certify the plan of care. Please let me know if there are questions or concerns regarding this plan of care. Physician Signature: Date : 02/27/24 1549 CC: KALEIGH Whittaker; Dr. Clinton Fowler, CLS Signed Normal [facility] Urine Cultureon 01-18-2024 [facility] Presumptive E. coli [place] Count >100,000 Presumptive E. coli: REACTION Ampicillin Islt JIMI 4 S Ampicillin+Sulbac Islt JIMI <=2 S ceFAZolin Islt JIMI <=4 S Cefepime Islt JIMI <=0.12 S cefTRIAXone Islt JIMI <=0.25 S Ciprofloxacin Islt JIMI >=4 R Ertapenem Islt JIMI <=0.12 S B-Lactamase Extended Susc Islt NEG Gentamicin Islt JIMI <=1 S Imipenem Islt JIMI <=0.25 S levoFLOXacin Islt JIMI >=8 R Nitrofurantoin Islt JIMI <=16 S Pip+Tazo Islt JIMI <=4 S Tobramycin Islt JIMI <=1 S TMP SMX Islt JIMI >=320 R Normal [facility] Comment on above: Performed By: #### M [id number] #### [facility] [address] [place], [address] Office Visit Reporton 2023 Office Visit Report [facility] [address] [place] [address] OFFICE VISIT Date of Service: 01/16/24 MR#: [id number] Acct: [id number] Patient: LIZA VELASQUEZ Rep #: [id number] : 1935 Provider: JUAN DAVID Morrow Age/Sex: 88/F Location: [facility] [place] Status: Signed Intake Vital Signs 06/07/23 22:34 01/16/24 15:29 Height 1.6 m Weight: 79.4 kg BMI 31.0 BP 124/87 H 152/70 H Blood Pressure Location Lt brachial Position Sitting Respiration 16 17 Pulse 77 53 L Pulse Source NIBP Temp 97.6 F L 98.3 F Temp Source Oral Temporal Pulse Oximetry (%) 99 97 Oxygen Delivery Method room air Intake Visit Reasons: LETHARGIC/GENERAL DISCOMFORT Chief Complaint: fatigue Applications Chemist Required: No Is patient in pain?: No Allergies pollen extracts Allergy (Intermediate, Verified 01/16/24 15:30) PT UNSURE OF REACTION Is last menstrual period known: No Post menopausal: Yes Patient : No Have you fallen in the past year?: No Nurse's Note: change in mental status x 4 days worsening. sleeping more, not finding pleasure in her normal things. concern for UTI. [facility] Medical History Alzheimer disease AMS (altered mental status) Anemia due to stage 3 chronic kidney disease Arthritis Bowel incontinence Chronic diarrhea CPAP (continuous positive airway pressure) dependence CVA (cerebral vascular accident) Dementia DM (diabetes mellitus), type 2 Exocrine pancreatic insufficiency Falls GERD (gastroesophageal reflux disease) GI bleed Hearing loss, left Hearing loss, right History of Sjogren's disease History of stroke Loose stools Mental status alteration Nausea and vomiting in adult Non-smoker Noninfective gastroenteritis and colitis, unspecified RLS (restless legs syndrome) TIA (transient ischemic attack) Type 2 diabetes mellitus without complications Varicose veins of leg with edema Surgical History H/O lumpectomy H/O: hysterectomy History of tonsillectomy Family History Mother Alzheimer disease Brother Alzheimer disease Aunt Alzheimer disease Father Heart disease Social History household members: spouse Smoking Status: Never smoker alcohol intake: never substance use type: does not use HPI HPI Chief Complaint: fatigue Details: LIZA VELASQUEZ, is a 88 F who presents to the office today for fatigue. 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 She is unable to provide hx. He is providing the hx. He notes she just seems more lethargic and not as interested in activities. She initially had some vague pain but then lately notes no pain. She has no fever. He is worried this is a UTI as she has had many of these in the past. She is chronically incontinent with diarrhea and frequently soiled in her underwear with stool. Urine is foul smelling. is checking glucose and has noted no lows. Her appetite is normal and she is eating well. ROS Const Constitutional: Positive for fatigue; No body ache, chills or fever(s) Resp Respiratory: No cough Gastro GI: Positive for diarrhea (chronic) and other (stool incontinence - chronic) Genitourinary-Female: Positive for urinary incontinence Musc Musculoskeletal: Positive for other (no flank pain. ) Endo Endocrine: Positive for fatigue Exam Const General: cooperative, healthy appearing, comfortable, no acute distress, well developed and well groomed Nutritional Appearance: average body habitus and well nourished Orientation: alert, awake and oriented to person Resp Effort Inspection: normal respiratory effort, able to speak in complete sentences, symmetric chest movement and no cough Auscultation: Bilateral: Clear to Auscultation Cardio Rate: regular rate Rhythm: regular rhythm Heart Sounds: no murmurs Musc Other: no cva tenderness Results POC Glucose POC Glucose 212 mg/dL Last Edit by Chey Vazquez on 01/16/24 15:34 POC Urinalysis Dip (Clinic) Office Urine Color DARK YELLOW Last Edit by Chey Vazquez on 01/16/24 15:36 Office Urine Clarity Cloudy Last Edit by Chey Vazquez on 01/16/24 15:36 Office Urine Glucose Negative Last Edit by Chey Vazquez on 01/16/24 15:36 Office Urine Ketones Negative Last Edit by Chey Vazquez on 01/16/24 15:36 Off Ur Spec [place] 1.015 Last Edit by Chey Vazquez on 01/16/24 15:36 Office Urine pH 6.0 Last Edit by Chey Vazquez on 01/16/24 15:36 Office Urine Bilirubin Negative Last Edit by Chey Vazquez on 01/16/24 15:36 Office Urine Urobilinogen Negative Last Edit by Chey Vazquez on 01/16/24 15:36 Office Urine Blood Negative Last Edit by Chey (more content not included)... Normal [facility] Urinalysis, Completeon 01-15 BACTERIA 1+ /hpf Normal None Seen [facility] Comment on above: Order Comment: EZEQUIEL CTOR TO SPECIFY Performed By: #### M [id number] #### [facility] [address] [place], [address] EPI,SQUAMOUS 0-5 SEEN Normal 5-10 [facility] Comment on above: Order Comment: EZEQUIEL CTOR TO SPECIFY Performed By: #### M [id number] #### [facility] [address] [place], [address] WBC 0-5 SEEN Normal 0-5 [facility] Comment on above: Order Comment: EZEQUIEL CTOR TO SPECIFY Performed By: #### M [id number] #### [facility] [address] [place], [address] Mucus Ql (Urine sed) 0 SEEN Normal [facility] Comment on above: Order Comment: EZEQUIEL CTOR TO SPECIFY Performed By: #### M [id number] #### [facility] [address] [place], [address] RBC 0 SEEN Normal 0-5 [facility] Comment on above: Order Comment: COLLE CTOR TO SPECIFY Performed By: #### M [id number] #### [facility] [address] [place], [place], [id number] Culture, urineOrdered By: Bettie Fowler on 09-28-2023 Bacteria identified Cx Nom (U) Klebsiella oxytoca [facility] Absolute lymphocyte countOrd ered By: Nikki Jacques on 06-07-2023 Lymphocytes Auto (Unsp spec) [#/Vol] 2.56 10*3/uL 0.83-4.51 [facility] Basophil percentageOrdered B y: Nikki Jacques on 06-07-2023 Basophils/100 WBC (Bld) 1.1 % 0-[address] [facility] Chloride [Moles/Vol] 102 mmol/L 98-107 [facility] Eosinophils/100 WBC (Bld) 4.8 % 0-5 [facility] Glucose [Mass/Vol] 287 mg/dL 74-106 [facility] Comment on above: Glucose result great er than or equal to 200 mg/dLsuggests DIABETES MELLITUS per A.D.A. criteria. Neutrophils (Bld) [#/Vol] 2.8 10*3/uL 2.0-7.7 [facility] Neutrophils/100 WBC (Bld) 43.4 % 47-70 [facility] Potassium [Moles/Vol] 4.1 mmol/L 3.5-5.1 [facility] Sodium [Moles/Vol] 134 mmol/L 136-145 [facility] WBC (Bld) [#/Vol] 6.4 10*3/uL 4.4-11.0 [facility] Blood erythrocytes count (nu mber/volume)Ordered By: Nikki Jacques on 06-07-2023 RBC (Bld) [#/Vol] 3.26 10*6/uL 4.2-5.4 [facility] Blood hemoglobin measurement (mass/volume)Ordered By: Nikki Jacques on 06-07-2023 Hemoglobin (Bld) [Mass/Vol] 9.6 g/dL 12.0-15. 0 [facility] Blood lymphocytes/100 leukoc ytesOrdered By: Nikki Jacques on 06-07-2023 Lymphocytes/100 WBC (Bld) 39.9 % 19-41 [facility] Blood monocytes/100 leukocyt esOrdered By: Nikki Jacques on 06-07-2023 Monocytes/100 WBC (Bld) 10.5 % 0-[address] [facility] Blood platelet adequacy dete ction by light microscopyOrdered By: Nikki Jacques on 06-07-2023 Platelets LM Ql (Bld) MOD DEC ADEQ [facility] Blood platelet mean volumeOr dered By: Nikki Jacques on 06-07-2023 Platelet mean volume (Bld) [Entitic vol] 12.1 fL 6.2-12.0 [facility] Determination of erythrocyte mean corpuscular volume (MCV)Ordered By: Nikki Jacques on 06-07-2023 MCV (RBC) [Entitic vol] 90.5 fL 81-[address] [facility] Hematocrit Auto (Bld) [Volum e fraction]Ordered By: Nikki Jacques on 06-07-2023 Hematocrit (Bld) [Volume fraction] 29.5 % 37-47 [facility] - Chemistry and C hemistry - challengeOrdered By: Nikki Jacques on 06-07-2023 CO2 [Moles/Vol] 27.0 mmol/L 21.0-32.0 [facility] Urea nitrogen/Creatinine [Mass ratio] 15.7 mg/mg 10-20 [facility] - Hematology and Cell countsOrdered By: Nikki Jacques on 06-07-2023 Erythrocyte distribution width (RBC) [Entitic vol] 44.2 fL 35.1-43.9 [facility] Erythrocyte distribution width (RBC) [Ratio] 13.2 % 11.6-14.6 [facility] Immature granulocytes/100 WBC (Bld) 0.300 % 0.0-0.9 [facility] Comment on above: IG% - Immature Granu locytes (promyelocytes, myelocytes and metamyelocytes) > 1% indicates that a LEFT SHIFT is Present. MCH (RBC) [Entitic mass] 29.4 pg 27.0-32.0 [facility] Nucleated RBC/100 WBC (Bld) [Ratio] 0 % 0-5 [facility] MCHC Auto (RBC) [Mass/Vol]Or dered By: Nikki Jacques on 06-07-2023 MCHC (RBC) [Mass/Vol] 32.5 g/dL 32-36 [facility] No Panel InformationOrdered By: Nikki Jacques on 06-07-2023 Estimated Creatinine Clearance Calc 30.36 ml/min [facility] Estimated GFR (MDRD) Amer 62 mL/min >60 [facility] Comment on above: GFR Calc Estimated GFR (MDRD) Non-Af Amer 51 mL/min >60 [facility] Comment on above: Non- GFR Calc Troponin I High Sensitivity 9 pg/mL 3.0-54.0 [facility] Comment on above: Please Note: New Mesha t Units and Gender Specific Reference Ranges. For more information see Policy Stat Procedure [place] High Sensitivity Troponin (TNIH) and attachments. Platelets bldOrdered By: Selin Jacques on 06-07-2023 Platelets (Bld) [#/Vol] 77 10*3/uL 150-[address] [facility] Serum or plasma calcium beck urement (mass/volume)Ordered By: Nikki Jacques on 06-07-2023 Calcium [Mass/Vol] 8.1 mg/dL 8.5-10.1 [facility] Serum or plasma creatinine m easurement (mass/volume)Ordered By: Nikki Jacques on 06-07-2023 Creatinine [Mass/Vol] 1.08 mg/dL 0.55-1.02 [facility] Comment on above: The validity of the calculated GFR & GFRAA in patients over 70 years has not been determined. Clinical correlation is essential. Serum or plasma urea nitroge n measurement (mass/volume)Ordered By: Nikki Jacques on 06-07-2023 Urea nitrogen [Mass/Vol] 17 mg/dL 7-18 [facility] Thin prep Papanicolaou smear with manual screeningOrdered By: Nikki Jacques on 06-07-2023 Thin prep Papanicolaou smear with manual screening 5 5-15 [facility] Culture, urineOrdered By: Bettie Fowler on 04-27-2023 Bacteria identified Cx Nom (U) Proteus mirabilis [facility] Bacteria identified Cx Nom (U) Escherichia coli [facility] Bacteria identified Cx Nom (U) Proteus mirabilis [facility] Bacteria identified Cx Nom (U) Escherichia coli [facility] Absolute lymphocyte countOrd ered By: Clinton Fowler on 04-25-2023 Lymphocytes Auto (Unsp spec) [#/Vol] 1.81 10*3/uL 0.83-4.51 [facility] Basophil percentageOrdered B y: Clinton Fowler on 04-25-2023 Basophils/100 WBC (Bld) 1.0 % 0-[address] [facility] Chloride [Moles/Vol] 101 mmol/L 98-107 [facility] Eosinophils/100 WBC (Bld) 2.2 % 0-5 [facility] Glucose [Mass/Vol] 101 mg/dL 74-106 [facility] Comment on above: Fasting Glucose resu lt from 100 to 125 mg/dL suggests IMPAIRED HOMEOSTASIS per A.D.A. criteria. Neutrophils (Bld) [#/Vol] 5.5 10*3/uL 2.0-7.7 [facility] Neutrophils/100 WBC (Bld) 66.2 % 47-70 [facility] Potassium [Moles/Vol] 4.0 mmol/L 3.5-5.1 [facility] Sodium [Moles/Vol] 133 mmol/L 136-145 [facility] WBC (Bld) [#/Vol] 8.3 10*3/uL 4.4-11.0 [facility] Blood erythrocytes count (nu mber/volume)Ordered By: Clinton Fowler on 04-25-2023 RBC (Bld) [#/Vol] 3.81 10*6/uL 4.2-5.4 [facility] Blood hemoglobin measurement (mass/volume)Ordered By: Clinton Fowler on 04-25-2023 Hemoglobin (Bld) [Mass/Vol] 11.4 g/dL 12.0-15. 0 [facility] Blood lymphocytes/100 leukoc ytesOrdered By: Clinton Fowler on 04-25-2023 Lymphocytes/100 WBC (Bld) 21.8 % 19-41 [facility] Blood monocytes/100 leukocyt esOrdered By: Clinton Fowler on 04-25-2023 Monocytes/100 WBC (Bld) 8.4 % 0-[address] [facility] Blood platelet mean volumeOr dered By: Clinton Fowler on 04-25-2023 Platelet mean volume (Bld) [Entitic vol] 10.9 fL 6.2-12.0 [facility] Determination of erythrocyte mean corpuscular volume (MCV)Ordered By: Clinton Fowler on 04-25-2023 MCV (RBC) [Entitic vol] 92.1 fL 81-[address] [facility] Hematocrit Auto (Bld) [Volum e fraction]Ordered By: Clinton Fowler on 04-25-2023 Hematocrit (Bld) [Volume fraction] 35.1 % 37-47 [facility] Iron measurement (mass/mass) Ordered By: Clinton Fowler on 04-25-2023 Iron (Unsp spec) [Mass/Mass] 44 ug/dL 50-170 [facility] - Chemistry and C hemistry - challengeOrdered By: Clinton Fowler on 04-25-2023 CO2 [Moles/Vol] 25.0 mmol/L 21.0-32.0 [facility] Urea nitrogen/Creatinine [Mass ratio] 20.4 mg/mg 10-20 [facility] - Hematology and Cell countsOrdered By: Clinton Fowler on 04-25-2023 Erythrocyte distribution width (RBC) [Entitic vol] 42.7 fL 35.1-43.9 [facility] Erythrocyte distribution width (RBC) [Ratio] 12.7 % 11.6-14.6 [facility] Immature granulocytes/100 WBC (Bld) 0.400 % 0.0-0.9 [facility] Comment on above: IG% - Immature Granu locytes (promyelocytes, myelocytes and metamyelocytes) > 1% indicates that a LEFT SHIFT is Present. MCH (RBC) [Entitic mass] 29.9 pg 27.0-32.0 [facility] Nucleated RBC/100 WBC (Bld) [Ratio] 0 % 0-5 [facility] MCHC Auto (RBC) [Mass/Vol]Or dered By: Clinton Fowler on 04-25-2023 MCHC (RBC) [Mass/Vol] 32.5 g/dL 32-36 [facility] No Panel InformationOrdered By: Clinton Fowler on 04-25-2023 Estimated GFR (MDRD) Amer 65 mL/min >60 [facility] Comment on above: GFR Calc Estimated GFR (MDRD) Non-Af Amer 54 mL/min >60 [facility] Comment on above: Non- GFR Calc Platelets bldOrdered By: Brynn Fowler on 04-25-2023 Platelets (Bld) [#/Vol] 251 10*3/uL 150-450 [facility] Serum or plasma calcium beck urement (mass/volume)Ordered By: Clinton Fowler on 04-25-2023 Calcium [Mass/Vol] 9.6 mg/dL 8.5-10.1 [facility] Serum or plasma creatinine m easurement (mass/volume)Ordered By: Clinton Fowler on 04-25-2023 Creatinine [Mass/Vol] 1.03 mg/dL 0.55-1.02 [facility] Comment on above: The validity of the calculated GFR & GFRAA in patients over 70 years has not been determined. Clinical correlation is essential. Serum or plasma ferritin jose carlos surement (mass/volume)Ordered By: Clinton Fowler on 04-25-2023 Ferritin [Mass/Vol] 46 ng/mL 8-252 [facility] Serum or plasma urea nitroge n measurement (mass/volume)Ordered By: Clinton Fowler on 04-25-2023 Urea nitrogen [Mass/Vol] 21 mg/dL 7-18 [facility] Thin prep Papanicolaou smear with manual screeningOrdered By: Clinton Fowler on 04-25-2023 Thin prep Papanicolaou smear with manual screening 7 5-15 [facility] Absolute lymphocyte countOrd ered By: Clinton Fowler on 01-24-2023 Lymphocytes Auto (Unsp spec) [#/Vol] 2.27 10*3/uL 0.83-4.51 [facility] Basophil percentageOrdered B y: Clinton Fowler on 01-24-2023 Basophils/100 WBC (Bld) 0.9 % 0-[address] [facility] Eosinophils/100 WBC (Bld) 2.3 % 0-5 [facility] Neutrophils (Bld) [#/Vol] 3.6 10*3/uL 2.0-7.7 [facility] Neutrophils/100 WBC (Bld) 53.8 % 47-70 [facility] WBC (Bld) [#/Vol] 6.7 10*3/uL 4.4-11.0 [facility] Blood erythrocytes count (nu mber/volume)Ordered By: Clinton Fowler on 01-24-2023 RBC (Bld) [#/Vol] 2.85 10*6/uL 4.2-5.4 [facility] Blood hemoglobin measurement (mass/volume)Ordered By: Clinton Fowler on 01-24-2023 Hemoglobin (Bld) [Mass/Vol] 8.9 g/dL 12.0-15. 0 [facility] Blood lymphocytes/100 leukoc ytesOrdered By: Clinton Fowler on 01-24-2023 Lymphocytes/100 WBC (Bld) 34.1 % 19-41 [facility] Blood monocytes/100 leukocyt esOrdered By: Clinton Fowler on 01-24-2023 Monocytes/100 WBC (Bld) 8.4 % 0-10 [facility] Blood platelet mean volumeOr dered By: Clinton Fowler on 01-24-2023 Platelet mean volume (Bld) [Entitic vol] 10.5 fL 6.2-12.0 [facility] Determination of erythrocyte mean corpuscular volume (MCV)Ordered By: Clinton Fowler on 01-24-2023 MCV (RBC) [Entitic vol] 96.8 fL 81-[address] [facility] Hematocrit Auto (Bld) [Volum e fraction]Ordered By: Clinton Fowler on 01-24-2023 Hematocrit (Bld) [Volume fraction] 27.6 % 37-47 [facility] Iron measurement (mass/mass) Ordered By: Clinton Fowler on 01-24-2023 Iron (Unsp spec) [Mass/Mass] 41 ug/dL 50-170 [facility] - Chemistry and C hemistry - challengeOrdered By: Clinton Fowler on 01-24-2023 Cobalamin (Vitamin B12) [Mass/Vol] 1536 pg/mL 211-911 [facility] - Hematology and Cell countsOrdered By: Clinton Fowler on 01-24-2023 Erythrocyte distribution width (RBC) [Entitic vol] 49.1 fL 35.1-43.9 [facility] Erythrocyte distribution width (RBC) [Ratio] 13.9 % 11.6-14.6 [facility] Immature granulocytes/100 WBC (Bld) 0.500 % 0.0-0.9 [facility] Comment on above: IG% - Immature Granu locytes (promyelocytes, myelocytes and metamyelocytes) > 1% indicates that a LEFT SHIFT is Present. MCH (RBC) [Entitic mass] 31.2 pg 27.0-32.0 [facility] Nucleated RBC/100 WBC (Bld) [Ratio] 0 % 0-5 [facility] MCHC Auto (RBC) [Mass/Vol]Or dered By: Clinton Fowler on 01-24-2023 MCHC (RBC) [Mass/Vol] 32.2 g/dL 32-36 [facility] Platelets bldOrdered By: Brynn Fowler on 01-24-2023 Platelets (Bld) [#/Vol] 242 10*3/uL 150-450 [facility] Serum or plasma ferritin jose carlos surement (mass/volume)Ordered By: Clinton Fowler on 01-24-2023 Ferritin [Mass/Vol] 66 ng/mL 8-252 [facility] Absolute lymphocyte countOrd ered By: Sixto Braswell on 01-14-2023 Lymphocytes Auto (Unsp spec) [#/Vol] 2.33 10*3/uL 0.83-4.51 [facility] Basophil percentageOrdered B y: Sixto Braswell on 01-14-2023 Basophils/100 WBC (Bld) 1.3 % 0-[address] [facility] Chloride [Moles/Vol] 114 mmol/L 98-107 [facility] Eosinophils/100 WBC (Bld) 3.6 % 0-5 [facility] Glucose [Mass/Vol] 109 mg/dL 74-106 [facility] Comment on above: Fasting Glucose resu lt from 100 to 125 mg/dL suggests IMPAIRED HOMEOSTASIS per A.D.A. criteria. Neutrophils (Bld) [#/Vol] 4.1 10*3/uL 2.0-7.7 [facility] Neutrophils/100 WBC (Bld) 54.5 % 47-70 [facility] Potassium [Moles/Vol] 3.8 mmol/L 3.5-5.1 [facility] Sodium [Moles/Vol] 143 mmol/L 136-145 [facility] WBC (Bld) [#/Vol] 7.5 10*3/uL 4.4-11.0 [facility] Blood erythrocytes count (nu mber/volume)Ordered By: Sixto Braswell on 01-14-2023 RBC (Bld) [#/Vol] 2.89 10*6/uL 4.2-5.4 [facility] Blood hemoglobin measurement (mass/volume)Ordered By: Sixto Braswell on 01-14-2023 Hemoglobin (Bld) [Mass/Vol] 9.3 g/dL 12.0-15. 0 [facility] Blood lymphocytes/100 leukoc ytesOrdered By: Sixto Braswell on 01-14-2023 Lymphocytes/100 WBC (Bld) 31.1 % 19-41 [facility] Blood monocytes/100 leukocyt esOrdered By: Sixto Braswell on 01-14-2023 Monocytes/100 WBC (Bld) 9.1 % 0-[address] [facility] Blood platelet mean volumeOr dered By: Sixto Braswell on 01-14-2023 Platelet mean volume (Bld) [Entitic vol] 10.2 fL 6.2-12.0 [facility] Determination of erythrocyte mean corpuscular volume (MCV)Ordered By: Sixto Braswell on 01-14-2023 MCV (RBC) [Entitic vol] 93.1 fL 81-[address] [facility] Hematocrit Auto (Bld) [Volum e fraction]Ordered By: Sixto Braswell on 01-14-2023 Hematocrit (Bld) [Volume fraction] 26.9 % 37-47 [facility] - Chemistry and C hemistry - challengeOrdered By: Sixto Braswell on 01-14-2023 CO2 [Moles/Vol] 25.0 mmol/L 21.0-32.0 [facility] Urea nitrogen/Creatinine [Mass ratio] 18.1 mg/mg 10-20 [facility] - Hematology and Cell countsOrdered By: Sixto Braswell on 01-14-2023 Erythrocyte distribution width (RBC) [Entitic vol] 44.9 fL 35.1-43.9 [facility] Erythrocyte distribution width (RBC) [Ratio] 13.2 % 11.6-14.6 [facility] Immature granulocytes/100 WBC (Bld) 0.400 % 0.0-0.9 [facility] Comment on above: IG% - Immature Granu locytes (promyelocytes, myelocytes and metamyelocytes) > 1% indicates that a LEFT SHIFT is Present. MCH (RBC) [Entitic mass] 31.1 pg 27.0-32.0 [facility] Nucleated RBC/100 WBC (Bld) [Ratio] 0 % 0-5 [facility] MCHC Auto (RBC) [Mass/Vol]Or dered By: Sixto Braswell on 01-14-2023 MCHC (RBC) [Mass/Vol] 33.5 g/dL 32-36 [facility] No Panel InformationOrdered By: Sixto Braswell on 01-14-2023 Estimated Creatinine Clearance Calc 49.62 ml/min [facility] Estimated GFR (MDRD) Amer 78 mL/min >60 [facility] Comment on above: GFR Calc Estimated GFR (MDRD) Non-Af Amer 64 mL/min >60 [facility] Comment on above: Non- GFR Calc Platelets bldOrdered By: Debbie Braswell on 01-14-2023 Platelets (Bld) [#/Vol] 197 10*3/uL 150-450 [facility] Serum or plasma calcium beck urement (mass/volume)Ordered By: Sixto Braswell on 01-14-2023 Calcium [Mass/Vol] 8.6 mg/dL 8.5-10.1 [facility] Serum or plasma creatinine m easurement (mass/volume)Ordered By: Sixto Braswell on 01-14-2023 Creatinine [Mass/Vol] 0.88 mg/dL 0.55-1.02 [facility] Comment on above: The validity of the calculated GFR & GFRAA in patients over 70 years has not been determined. Clinical correlation is essential. Serum or plasma urea nitroge n measurement (mass/volume)Ordered By: Sixto Braswell on 01-14-2023 Urea nitrogen [Mass/Vol] 16 mg/dL 7-18 [facility] Thin prep Papanicolaou smear with manual screeningOrdered By: Sixto Braswell on 01-14-2023 Thin prep Papanicolaou smear with manual screening 4 5-15 [facility] Clostridium difficile detect ion by polymerase chain reactionOrdered By: Isiah Winn on 01-13-2023 C. difficile DNA ANALISA+probe Ql (Unsp spec) [facility] Ova and parasitesOrdered By: Isiah Winn on 01-13-2023 Ova and parasites identified LM Nom (Unsp spec) [facility] Stool enteric pathogen panel by probe and target amplification methodOrdered By: Isiah Winn on 01-13-2023 Gastrointestinal pathogens panel ANALISA+probe (Stl) [facility] Stool lactoferrin detection by immunoassayOrdered By: Isiah Winn on 01-13-2023 Lactoferrin IA Ql (Stl) [facility] Basophil percentageOrdered B y: Isiah Winn on 01-12-2023 Basophil percentage 0-5 SEEN /hpf 0-5 [facility] Bilirubin [Mass/Vol] 0.40 mg/dL 0.20-1.00 [facility] Comment on above: For patients on eltr ombopag therapy, use of Dim[place] TBIL is not recommended. Protein [Mass/Vol] 5.9 g/dL 6.4-8.2 [facility] Bilirubin Test strip Ql (U)O rdered By: Isiah Winn on 01-12-2023 Bilirubin Ql (U) 1 mg/dL Negative [facility] Comment on above: COLOR OF URINE MAY A FFECT DIPSTICK RESULTS. INR in Blood by Coagulation assayOrdered By: Isiah Winn on 01-12-2023 INR Coag (Bld) [Relative time] 1.1 {INR} [facility] Ketones Test strip Ql (U)Ord ered By: Isiah Winn on 01-12-2023 Ketones Ql (U) Negative Negative [facility] Laboratory - Chemistry and C hemistry - challengeOrdered By: Isiah Winn on 01-12-2023 ALP [Catalytic activity/Vol] 94 U/L 45-117 [facility] ALT [Catalytic activity/Vol] 26 U/L 13-56 [facility] Globulin (S) [Mass/Vol] 3.2 g/dL 2.2-4.2 [facility] Laboratory - CoagulationOrde red By: Isiah Winn on 01-12-2023 aPTT Coag (Bld) [Time] 29.4 s 24.1-36.2 [facility] PT Coag (PPP) [Time] 14.6 s 11.7-14.9 [facility] Mucus LM Ql (Urine sed)Order ed By: Isiah Winn on 01-12-2023 Mucus Ql (Urine sed) 0 SEEN /hpf [facility] Nitrite Test strip Ql (U)Ord ered By: Isiah Winn on 01-12-2023 Nitrite Ql (U) Negative Negative [facility] Protein Test strip Ql (U)Ord ered By: Isiah Winn on 01-12-2023 Protein Ql (U) Negative Negative [facility] Serum or plasma albumin beck urement (mass/volume)Ordered By: Isiah Winn on 01-12-2023 Albumin [Mass/Vol] 2.7 g/dL 3.2-5.0 [facility] Serum or plasma albumin/glob ulin mass ratioOrdered By: Isiah Winn on 01-12-2023 Albumin/Globulin [Mass ratio] 0.8 {ratio} 0.9-2.4 [facility] Squamous epithelial cells de tection in urine sediment by light microscopyOrdered By: Isiah Winn on 01-12-2023 Epithelial cells.squamous LM Ql (Urine sed) 0 SEEN /hpf 5-10 [facility] Thin prep Papanicolaou smear with manual screeningOrdered By: Isiah Winn on 01-12-2023 Thin prep Papanicolaou smear with manual screening 30 U/L 15-37 [facility] Urine blood detectionOrdered By: Isiah Winn on 01-12-2023 RBC Ql (U) Negative Negative [facility] RBC Ql (U) 0 SEEN /hpf 0-5 [facility] Urine clarityOrdered By: Cortez Winn on 01-12-2023 Clarity (U) Clear Clear [facility] Urine color determinationOrd ered By: Isiah Winn on 01-12-2023 Color (U) Yellow Yellow [facility] Urine glucose detectionOrder ed By: Isiah Winn on 01-12-2023 Glucose Ql (U) Normal mg/dl Normal [facility] Urine leukocyte esterase det ection by dipstickOrdered By: Isiah Winn on 01-12-2023 Leukocyte esterase Test strip Ql (U) 25 /ul Negative [facility] Urine pHOrdered By: Isiah Winn on 01-12-2023 pH (U) 5.0 [pH] 5.0 - 8.0 [facility] Urine sediment bacteria coun t by microscopy (number/high power field)Ordered By: Isiah Winn on 01-12-2023 Bacteria LM.HPF (Urine sed) [#/Area] 0 /[HPF] None Seen [facility] Urine specific gravity measu rementOrdered By: Isiah Winn on 01-12-2023 Specific gravity (U) [Rel density] 1.015 1.002-1.030 [facility] Urobilinogen Auto test strip Ql (U)Ordered By: Isiah Winn on 01-12-2023 Urobilinogen Ql (U) Normal mg/dl Normal [facility] Clostridium difficile detect ion by polymerase chain reactionOrdered By: Hung Adames on 10-24-2022 C. difficile DNA ANALISA+probe Ql (Unsp spec) [facility] Stool lactoferrin detection by immunoassayOrdered By: Hung Adames on 10-24-2022 Lactoferrin IA Ql (Stl) [facility] No Panel InformationOrdered By: Hung Adames on 10-23-2022 Miscellaneous Test See comment [facility] Comment on above: TEST RESULT LIMITSSt ool Culture Salmonella/Shigella Screen Result 1 No Salmonella or Shigella recovered. Campylobacter Culture Result 1 No Campylobacter species isolated. E coli Shiga Toxin EIA Negative Negative [facility]. ORIGINAL REPORT ON FILE IN LAB CONTAINS ADDITIONAL TEST SITE INFORMATION. Stool Pancreatic Elastase < 50 >200 [facility] Comment on above: Result Units: ug Jeny st./gResults verified by repeat testing Severe Pancreatic Insufficiency: <100 Moderate Pancreatic Insufficiency: 100 - 200 Normal: >200Performed at: [facility] [id number] Director: Hi Hackett MD, Phone: [phone] Giardia Antigen (JIMI) [facility] Stool Calprotectin <16 ug/g 0-120 [facility] Comment on above: Concentration Interp retation Follow-Up<16 - 50 ug/g Normal None>50 -120 ug/g Borderline Re-evaluate in 4-6 weeks >120 ug/g Abnormal Repeat as clinically indicatedPerformed at: [facility] [id number] Director: Hi Hackett MD, Phone: [phone] Miscellaneous Test See comment [facility] Comment on above: TEST RESULT LIMITSIB D Expanded Panel Marianela 50 units 0-50 Negative <45 Equivocal 45 - 50 Positive >50 ACCA 21 units 0-90 Negative <80 Equivocal 80 - 90 Positive >90 ALCA 13 units 0-60 Negative <55 Equivocal 55 - 60 Positive >60 AMCA 15 units 0-100 Negative < 90 Equivocal 90 - 100 Positive >100 This test was developed and its performance characteristics determined by [employer]. It has not been cleared or approved by the Food and Drug Administration. The FDA has determined that such clearance or approval is not necessary.Atypical pANCA Negative Negative Comments Pattern is not suggestive of Inflammatory Bowel Disease TESTING PERFORMED AT [facility]. ORIGINAL REPORT ON FILE IN LAB CONTAINS ADDITIONAL TEST SITE INFORMATION. Ova and parasitesOrdered By: Hung Adames on 10-23-2022 Ova and parasites identified LM Nom (Unsp spec) [facility] Laboratory - Microbiology an d Antimicrobial susceptibilityOrdered By: Dr. Thomas on 10-21-2022 Bacteria identified Cx Nom (Bld) [facility] Laboratory - Microbiology an d Antimicrobial susceptibilityOrdered By: Dr. Thomas on 09-22-2022 Bacteria identified Cx Nom (Bld) No growth in 5 days. [facility] Absolute lymphocyte countOrd ered By: Dr. Verma on 09-20-2022 Lymphocytes Auto (Unsp spec) [#/Vol] 2.55 10*3/uL 0.83-4.51 [facility] Basophil percentageOrdered B y: Dr. Verma on 09-20-2022 Basophils/100 WBC (Bld) 0.7 % 0-[address] [facility] Chloride [Moles/Vol] 102 mmol/L 98-107 [facility] Eosinophils/100 WBC (Bld) 1.5 % 0-5 [facility] Glucose [Mass/Vol] 253 mg/dL 74-106 [facility] Comment on above: Glucose result great er than or equal to 200 mg/dLsuggests DIABETES MELLITUS per A.D.A. criteria. Neutrophils (Bld) [#/Vol] 6.8 10*3/uL 2.0-7.7 [facility] Neutrophils/100 WBC (Bld) 63.8 % 47-70 [facility] Potassium [Moles/Vol] 3.6 mmol/L 3.5-5.1 [facility] Sodium [Moles/Vol] 135 mmol/L 136-145 [facility] WBC (Bld) [#/Vol] 10.7 10*3/uL 4.4-11.0 [facility] Blood erythrocytes count (nu mber/volume)Ordered By: Dr. Verma on 09-20-2022 RBC (Bld) [#/Vol] 3.79 10*6/uL 4.2-5.4 [facility] Blood hemoglobin measurement (mass/volume)Ordered By: Dr. Verma on 09-20-2022 Hemoglobin (Bld) [Mass/Vol] 11.3 g/dL 12.0-15. 0 [facility] Blood lymphocytes/100 leukoc ytesOrdered By: Dr. Verma on 09-20-2022 Lymphocytes/100 WBC (Bld) 23.9 % 19-41 [facility] Blood monocytes/100 leukocyt esOrdered By: Dr. Verma on 09-20-2022 Monocytes/100 WBC (Bld) 9.7 % 0-[address] [facility] Blood platelet mean volumeOr dered By: Dr. Verma on 09-20-2022 Platelet mean volume (Bld) [Entitic vol] 10.3 fL 6.2-12.0 [facility] Determination of erythrocyte mean corpuscular volume (MCV)Ordered By: Dr. Verma on 09-20-2022 MCV (RBC) [Entitic vol] 90.8 fL 81-[address] [facility] Glucose Glucometer (dC) [M ass/Vol]Ordered By: Dr. Verma on 09-20-2022 Glucose [Mass/Vol] 240 mg/dL 74-106 [facility] Comment on above: MANAGEMENT OF PATIEN T CARE PER NURSING PROTOCOL Hematocrit Auto (Bld) [Volum e fraction]Ordered By: Dr. Verma on 09-20-2022 Hematocrit (Bld) [Volume fraction] 34.4 % 37-47 [facility] Laboratory - Chemistry and C hemistry - challengeOrdered By: Dr. Verma on 09-20-2022 CO2 [Moles/Vol] 25.0 mmol/L 21.0-32.0 [facility] Urea nitrogen/Creatinine [Mass ratio] 21.0 mg/mg 10-20 [facility] Laboratory - Hematology and Cell countsOrdered By: Dr. Verma on 09-20-2022 Erythrocyte distribution width (RBC) [Entitic vol] 42.7 fL 35.1-43.9 [facility] Erythrocyte distribution width (RBC) [Ratio] 12.8 % 11.6-14.6 [facility] Immature granulocytes/100 WBC (Bld) 0.400 % 0.0-0.9 [facility] Comment on above: IG% - Immature Granu locytes (promyelocytes, myelocytes and metamyelocytes) > 1% indicates that a LEFT SHIFT is Present. MCH (RBC) [Entitic mass] 29.8 pg 27.0-32.0 [facility] Nucleated RBC/100 WBC (Bld) [Ratio] 0 % 0-5 [facility] MCHC Auto (RBC) [Mass/Vol]Or dered By: Dr. Verma on 09-20-2022 MCHC (RBC) [Mass/Vol] 32.8 g/dL 32-36 [facility] No Panel InformationOrdered By: Dr. Verma on 09-20-2022 Estimated Creatinine Clearance Calc 35.22 ml/min [facility] Estimated GFR (MDRD) Amer 53 mL/min >60 [facility] Comment on above: GFR Calc Estimated GFR (MDRD) Non-Af Amer 44 mL/min >60 [facility] Comment on above: Non- GFR Calc Platelets bldOrdered By: Dr. Verma on 09-20-2022 Platelets (Bld) [#/Vol] 237 10*3/uL 150-450 [facility] Serum or plasma calcium beck urement (mass/volume)Ordered By: Dr. Verma on 09-20-2022 Calcium [Mass/Vol] 9.1 mg/dL 8.5-10.1 [facility] Serum or plasma creatinine m easurement (mass/volume)Ordered By: Dr. Verma on 09-20-2022 Creatinine [Mass/Vol] 1.24 mg/dL 0.55-1.02 [facility] Comment on above: The validity of the calculated GFR & GFRAA in patients over 70 years has not been determined. Clinical correlation is essential. Serum or plasma urea nitroge n measurement (mass/volume)Ordered By: Dr. Verma on 09-20-2022 Urea nitrogen [Mass/Vol] 26 mg/dL 7-18 [facility] Thin prep Papanicolaou smear with manual screeningOrdered By: Dr. Verma on 09-20-2022 Thin prep Papanicolaou smear with manual screening 8 5-15 [facility] Basophil percentageOrdered B y: Dr. Verma on 09-19-2022 Cholesterol [Mass/Vol] 114 mg/dL <200 [facility] Comment on above: <200 mg/dL Desirable 200-240 mg/dL Borderline >240 mg/dL High Risk Triglyceride [Mass/Vol] 117 mg/dL <[address] [facility] Comment on above: The drugs N-Acetylcy steine and Metamizole may falsely depress this assay.Serum Triglycerides Reference Interval Normal <150 mg/dL Borderline high 150 - 199 mg/dL High 200 - 499 mg/dL Very High > or = 500 mg/dL Serum or plasma cholesterol in HDL measurement (mass/volume)Ordered By: Dr. Verma on 09-19-2022 Cholesterol in HDL [Mass/Vol] 41 mg/dL >40 [facility] Comment on above: The drugs N-Acetylcy steine and Metamizole may falsely depress this assay. Reference Range HDL <40 mg/dL Low HDL Cholesterol HDL >or= 60 mg/dL High HDL Cholesterol Serum or plasma cholesterol in VLDL measurement (mass/volume)Ordered By: Dr. Verma on 09-19-2022 Cholesterol in VLDL [Mass/Vol] 23 mg/dL 5-40 [facility] Serum or plasma low density lipoprotein (LDL) cholesterol measurement (mass/volume)Ordered By: Dr. Verma on 09-19-2022 Cholesterol in LDL [Mass/Vol] 50 mg/dL 0-130 [facility] Basophil percentageOrdered B y: Dr. Chawla on 09-18-2022 Bilirubin [Mass/Vol] 0.50 mg/dL 0.20-1.00 [facility] Comment on above: For patients on eltr ombopag therapy, use of Dimension [place] TBIL is not recommended. Protein [Mass/Vol] 6.1 g/dL 6.4-8.2 [facility] Culture, urineOrdered By: Dr Edmond Thomas on 09-18-2022 Bacteria identified Cx Nom (U) Escherichia coli [facility] Laboratory - Chemistry and C hemistry - challengeOrdered By: Dr. Chawla on 09-18-2022 ALP [Catalytic activity/Vol] 104 U/L 45-117 [facility] ALT [Catalytic activity/Vol] 26 U/L 13-56 [facility] Globulin (S) [Mass/Vol] 3.4 g/dL 2.2-4.2 [facility] Serum or plasma albumin beck urement (mass/volume)Ordered By: Dr. Chawla on 09-18-2022 Albumin [Mass/Vol] 2.7 g/dL 3.2-5.0 [facility] Serum or plasma albumin/glob ulin mass ratioOrdered By: Dr. Chawla on 09-18-2022 Albumin/Globulin [Mass ratio] 0.8 {ratio} 0.9-2.4 [facility] Thin prep Papanicolaou smear with manual screeningOrdered By: Dr. Chawla on 09-18-2022 Thin prep Papanicolaou smear with manual screening 25 U/L 15-37 [facility] Basophil percentageOrdered B y: Dr. Buckner on 09-17-2022 Basophil percentage 3.5 mg/dL 2.5-4.9 [facility] Erythrocyte sedimentation ra teOrdered By: Dr. Chawla on 09-17-2022 ESR (Bld) [Velocity] 5 mm/h 0-30 [facility] Laboratory - Chemistry and C hemistry - challengeOrdered By: Dr. Buckner on 09-17-2022 Magnesium [Mass/Vol] 1.6 mg/dL 1.6-2.6 [facility] Serum or plasma C reactive p rotein measurement (mass/volume)Ordered By: Dr. Chawla on 09-17-2022 CRP [Mass/Vol] mg/L 0.0-3.0 [facility] Comment on above: C-Reactive Protein ( CRP) provides useful information for thediagnosis, therapy and monitoring of inflammatory processesand associated diseases. For the evaluation of Relative Riskfor Cardiovascular Disease, a High Sensitivity CRP (HSCRP)should be ordered. Serum procalcitonin measurem entOrdered By: Dr. Chawla on 09-17-2022 Procalcitonin [Mass/Vol] ng/mL 0.00-0.09 [facility] Comment on above: A procalcitonin (PCT ) level above 2.0 ng/mL on the first day of ICU admission is associated with a high risk for progression to severe sepsis and/or septic shock. A PCT level below 0.5 ng/mL on the first day of ICU admission is associated with a low risk for progression to severe and/or septic shock. Note: Concentrations <0.5 ng/mL do not exclude an infection on account of localized infections (without systemic signs) which can be associated with such low concentrations, or a systemic infection in its initial stages (<6 hours). Furthermore, increased procalcitonin can occur without infection. PCT concentrations between 0.5 and 2.0 ng/mL should be interpreted taking into account the patient's history. It is recommended to retest PCT within 6-24 hours if any concentrations <2 ng/mL are obtained. Absolute lymphocyte countOrd ered By: Dr. Thomas on 09-16-2022 Lymphocytes Auto (Unsp spec) [#/Vol] 2.26 10*3/uL 0.83-4.51 [facility] Basophil percentageOrdered B y: Dr. Thomas on 09-16-2022 Basophil percentage 0 SEEN /hpf 0-5 [facility] Basophils/100 WBC (Bld) 0.9 % 0-1 [facility] Bilirubin [Mass/Vol] 0.40 mg/dL 0.20-1.00 [facility] Comment on above: For patients on eltr ombopag therapy, use of [place] TBIL is not recommended. Chloride [Moles/Vol] 101 mmol/L 98-107 [facility] Eosinophils/100 WBC (Bld) 1.9 % 0-5 [facility] Glucose [Mass/Vol] 337 mg/dL 74-106 [facility] Comment on above: Glucose result great er than or equal to 200 mg/dLsuggests DIABETES MELLITUS per A.D.A. criteria. Lactate [Moles/Vol] 1.9 mmol/L 0.4-2.0 [facility] Neutrophils (Bld) [#/Vol] 4.3 10*3/uL 2.0-7.7 [facility] Neutrophils/100 WBC (Bld) 57.8 % 47-70 [facility] Potassium [Moles/Vol] 4.3 mmol/L 3.5-5.1 [facility] Protein [Mass/Vol] 6.3 g/dL 6.4-8.2 [facility] Sodium [Moles/Vol] 135 mmol/L 136-145 [facility] WBC (Bld) [#/Vol] 7.5 10*3/uL 4.4-11.0 [facility] Bilirubin Test strip Ql (U)O rdered By: Dr. Thomas on 09-16-2022 Bilirubin Ql (U) Negative Negative [facility] Blood erythrocytes count (nu mber/volume)Ordered By: Dr. Thomas on 09-16-2022 RBC (Bld) [#/Vol] 3.66 10*6/uL 4.2-5.4 [facility] Blood hemoglobin measurement (mass/volume)Ordered By: Dr. Thomas on 09-16-2022 Hemoglobin (Bld) [Mass/Vol] 11.0 g/dL 12.0-15. 0 [facility] Blood lymphocytes/100 leukoc ytesOrdered By: Dr. Thomas on 09-16-2022 Lymphocytes/100 WBC (Bld) 30.3 % 19-41 [facility] Blood monocytes/100 leukocyt esOrdered By: Dr. Thomas on 09-16-2022 Monocytes/100 WBC (Bld) 8.6 % 0-[address] [facility] Blood platelet mean volumeOr dered By: Dr. Thomas on 09-16-2022 Platelet mean volume (Bld) [Entitic vol] 10.1 fL 6.2-12.0 [facility] Culture, urineOrdered By: Julian Thomas on 09-16-2022 Bacteria identified Cx Nom (U) Escherichia coli [facility] Determination of erythrocyte mean corpuscular volume (MCV)Ordered By: Dr. Thomas on 09-16-2022 MCV (RBC) [Entitic vol] 95.6 fL 81-[address] [facility] Hematocrit Auto (Bld) [Volum e fraction]Ordered By: Dr. Thomas on 09-16-2022 Hematocrit (Bld) [Volume fraction] 35.0 % 37-47 [facility] INR in Blood by Coagulation assayOrdered By: Dr. Thomas on 09-16-2022 INR Coag (Bld) [Relative time] 1.1 {INR} [facility] Ketones Test strip Ql (U)Ord ered By: Dr. Thomas on 09-16-2022 Ketones Ql (U) Negative Negative [facility] Laboratory - Chemistry and C hemistry - challengeOrdered By: Dr. Buckner on 09-16-2022 Cobalamin (Vitamin B12) [Mass/Vol] 999 pg/mL 211-911 [facility] Laboratory - Chemistry and C hemistry - challengeOrdered By: Dr. Thomas on 09-16-2022 ALP [Catalytic activity/Vol] 100 U/L 45-117 [facility] ALT [Catalytic activity/Vol] 25 U/L 13-56 [facility] CO2 [Moles/Vol] 28.0 mmol/L 21.0-32.0 [facility] Globulin (S) [Mass/Vol] 3.3 g/dL 2.2-4.[address] [facility] Urea nitrogen/Creatinine [Mass ratio] 15.3 mg/mg 10-20 [facility] Laboratory - CoagulationOrde red By: Dr. Thomas on 09-16-2022 PT Coag (PPP) [Time] 13.6 s 11.7-14.9 [facility] Laboratory - Hematology and Cell countsOrdered By: Dr. Thomas on 09-16-2022 Erythrocyte distribution width (RBC) [Entitic vol] 44.8 fL 35.1-43.9 [facility] Erythrocyte distribution width (RBC) [Ratio] 12.8 % 11.6-14.6 [facility] Immature granulocytes/100 WBC (Bld) 0.500 % 0.0-0.9 [facility] Comment on above: IG% - Immature Granu locytes (promyelocytes, myelocytes and metamyelocytes) > 1% indicates that a LEFT SHIFT is Present. MCH (RBC) [Entitic mass] 30.1 pg 27.0-32.0 [facility] Nucleated RBC/100 WBC (Bld) [Ratio] 0 % 0-5 [facility] Laboratory - Microbiology an d Antimicrobial susceptibilityOrdered By: Moncho Thomas on 09-16-2022 Bacteria identified Cx Nom (Bld) [facility] Bacteria identified Cx Nom (Bld) No growth in 5 days. [facility] MCHC Auto (RBC) [Mass/Vol]Or dered By: Dr. Thomas on 09-16-2022 MCHC (RBC) [Mass/Vol] 31.4 g/dL 32-36 [facility] Mucus LM Ql (Urine sed)Order ed By: Dr. Thomas on 09-16-2022 Mucus Ql (Urine sed) 0 SEEN /hpf [facility] Nitrite Test strip Ql (U)Ord ered By: Dr. Thomas on 09-16-2022 Nitrite Ql (U) Positive Negative [facility] No Panel InformationOrdered By: Dr. Thomas on 09-16-2022 Estimated Creatinine Clearance Calc 33.28 ml/min [facility] Estimated GFR (MDRD) Amer 56 mL/min >60 [facility] Comment on above: GFR Calc Estimated GFR (MDRD) Non-Af Amer 46 mL/min >60 [facility] Comment on above: Non- GFR Calc No Panel InformationOrdered By: Dr. Buckner on 09-16-2022 Thyroid Stimulating Hormone (TSH) 2.42 uIU/mL 0.358-3.74 [facility] Platelets bldOrdered By: Dr. Thomas on 09-16-2022 Platelets (Bld) [#/Vol] 248 10*3/uL 150-450 [facility] Protein Test strip Ql (U)Ord ered By: Dr. Thomas on 09-16-2022 Protein Ql (U) Negative Negative [facility] Serum or plasma acetone beck urement (mass/volume)Ordered By: Dr. Thomas on 09-16-2022 Acetone [Mass/Vol] Negative NEG [facility] Serum or plasma albumin beck urement (mass/volume)Ordered By: Dr. Thomas on 09-16-2022 Albumin [Mass/Vol] 3.0 g/dL 3.2-5.0 [facility] Serum or plasma albumin/glob ulin mass ratioOrdered By: Dr. Thomas on 09-16-2022 Albumin/Globulin [Mass ratio] 0.9 {ratio} 0.9-2.4 [facility] Serum or plasma calcium beck urement (mass/volume)Ordered By: Dr. Thomas on 09-16-2022 Calcium [Mass/Vol] 9.0 mg/dL 8.5-10.1 [facility] Serum or plasma creatinine m easurement (mass/volume)Ordered By: Dr. Thomas on 09-16-2022 Creatinine [Mass/Vol] 1.18 mg/dL 0.55-1.02 [facility] Comment on above: The validity of the calculated GFR & GFRAA in patients over 70 years has not been determined. Clinical correlation is essential. Serum or plasma folate measu rement (mass/volume)Ordered By: Dr. Buckner on 09-16-2022 Folate [Mass/Vol] 40.40 ng/mL 3.1-55.4 [facility] Serum or plasma urea nitroge n measurement (mass/volume)Ordered By: Dr. Thomas on 09-16-2022 Urea nitrogen [Mass/Vol] 18 mg/dL 7-18 [facility] Squamous epithelial cells de tection in urine sediment by light microscopyOrdered By: Dr. Thomas on 09-16-2022 Epithelial cells.squamous LM Ql (Urine sed) 0 SEEN /hpf 5-10 [facility] Thin prep Papanicolaou smear with manual screeningOrdered By: Dr. Thomas on 09-16-2022 Thin prep Papanicolaou smear with manual screening 24 U/L 15-37 [facility] Thin prep Papanicolaou smear with manual screening 6 5-15 [facility] Urine blood detectionOrdered By: Dr. Thomas on 09-16-2022 RBC Ql (U) Negative Negative [facility] RBC Ql (U) 0 SEEN /hpf 0-5 [facility] Urine clarityOrdered By: Dr. Thomas on 09-16-2022 Clarity (U) Clear Clear [facility] Urine color determinationOrd ered By: Dr. Thomas on 09-16-2022 Color (U) Yellow Yellow [facility] Urine glucose detectionOrder ed By: Dr. Thomas on 09-16-2022 Glucose Ql (U) 1000 mg/dl Normal [facility] Urine leukocyte esterase det ection by dipstickOrdered By: Dr. Thomas on 09-16-2022 Leukocyte esterase Test strip Ql (U) Negative Negative [facility] Urine pHOrdered By: Dr. Azeb marcos on 09-16-2022 pH (U) 5.0 [pH] 5.0 - 8.0 [facility] Urine sediment bacteria coun t by microscopy (number/high power field)Ordered By: Dr. Thomas on 09-16-2022 Bacteria LM.HPF (Urine sed) [#/Area] 1 /[HPF] None Seen [facility] Urine specific gravity measu rementOrdered By: Dr. Thomas on 09-16-2022 Specific gravity (U) [Rel density] 1.015 1.002-1.030 [facility] Urobilinogen Auto test strip Ql (U)Ordered By: Dr. Thomas on 09-16-2022 Urobilinogen Ql (U) Normal mg/dl Normal [facility] No Panel InformationOrdered By: Hung Adames on 08-19-2022 Giardia Antigen (JIMI) [facility] Ova and parasitesOrdered By: Hung Adames on 08-19-2022 Ova and parasites identified LM Nom (Unsp spec) [facility] No Panel InformationOrdered By: Hung Adames on 08-13-2022 Stool Pancreatic Elastase 75 >200 [facility] Comment on above: Result Units: ug Jeny st./gResults verified by repeat testing Severe Pancreatic Insufficiency: <100 Moderate Pancreatic Insufficiency: 100 - 200 Normal: >200Performed at: [facility] [id number] Director: Hi Hackett MD, Phone: [phone] Stool Calprotectin 423 ug/g 0-120 [facility] Comment on above: Concentration Interp retation Follow-Up<16 - 50 ug/g Normal None>50 -120 ug/g Borderline Re-evaluate in 4-6 weeks >120 ug/g Abnormal Repeat as clinically indicatedPerformed at: [facility] [id number] Director: Kishor Sears PhD, Phone: [phone] at: [facility] [id number] Director: Hi Hackett MD, Phone: [phone] Stool Neutral Fats Normal . [facility] Comment on above: Normal (<60 Droplets /HPF) Qualitative fecal fat or lip idsOrdered By: Hung Adames on 08-13-2022 Fat Ql (Stl) Increased . [facility] Comment on above: Normal (<100 Droplet s/HPF) EP PanelOrdered By: Hung Adames on 08-11-2022 Gastrointestinal pathogens panel ANALISA+probe (Stl) [facility] Stool gastrointestinal hemog lobin detection by immunologic methodOrdered By: uHng Adames on 08-11-2022 Lower GI hemoglobin IA Ql (Stl) [facility] Stool lactoferrin detection by immunoassayOrdered By: Hung Adames on 08-11-2022 Lactoferrin IA Ql (Stl) [facility] Absolute lymphocyte countOrd ered By: Hung Adames on 08-10-2022 Lymphocytes Auto (Unsp spec) [#/Vol] 1.79 10*3/uL 0.83-4.51 [facility] Albumin Elph [Mass/Vol]Order ed By: Hung Adames on 08-10-2022 Albumin [Mass/Vol] 2.9 g/dL 2.9-4.4 [facility] Atypical perinuclear antineu trophil cytoplasmic antibodies measurementOrdered By: Hung Adames on 08-10-2022 Neutrophil cytoplasmic Ab.perinuclear.atypical IF (S) [Titer] <1:20 titer Neg:<1:20 [facility] Comment on above: The atypical pANCA p attern has been observed in asignificant percentage of patients with ulcerative colitis,primary sclerosing cholangitis and autoimmune hepatitis. Basophil percentageOrdered B y: Hung Adames on 08-10-2022 Basophil percentage 0.6 AI 0.0-0.9 [facility] Basophil percentage < 0.2 AI 0.0-0.9 [facility] Basophils/100 WBC (Bld) 0.6 % 0-1 [facility] Bilirubin [Mass/Vol] 0.40 mg/dL 0.20-1.00 [facility] Comment on above: For patients on eltr ombopag therapy, use of Dimension [place] TBIL is not recommended. Chloride [Moles/Vol] 105 mmol/L 98-107 [facility] Eosinophils/100 WBC (Bld) 2.7 % 0-5 [facility] Glucose [Mass/Vol] 306 mg/dL 74-106 [facility] Comment on above: Glucose result great er than or equal to 200 mg/dLsuggests DIABETES MELLITUS per A.D.A. criteria. LDH [Catalytic activity/Vol] 205 U/L 84-246 [facility] Neutrophils (Bld) [#/Vol] 4.5 10*3/uL 2.0-7.7 [facility] Neutrophils/100 WBC (Bld) 62.6 % 47-70 [facility] Potassium [Moles/Vol] 4.1 mmol/L 3.5-5.1 [facility] Protein [Mass/Vol] 5.8 g/dL 6.4-8.2 [facility] Sodium [Moles/Vol] 140 mmol/L 136-145 [facility] WBC (Bld) [#/Vol] 7.1 10*3/uL 4.4-11.0 [facility] Blood erythrocytes count (nu mber/volume)Ordered By: Hung Adames on 08-10-2022 RBC (Bld) [#/Vol] 3.40 10*6/uL 4.2-5.4 [facility] Blood hemoglobin measurement (mass/volume)Ordered By: Hung Adames on 08-10-2022 Hemoglobin (Bld) [Mass/Vol] 10.1 g/dL 12.0-15. 0 [facility] Blood lymphocytes/100 leukoc ytesOrdered By: Hung Adames on 08-10-2022 Lymphocytes/100 WBC (Bld) 25.1 % 19-41 [facility] Blood monocytes/100 leukocyt esOrdered By: Hung Adames on 08-10-2022 Monocytes/100 WBC (Bld) 8.6 % 0-[address] [facility] Blood platelet mean volumeOr dered By: Hung Adames on 08-10-2022 Platelet mean volume (Bld) [Entitic vol] 9.8 fL 6.2-12.0 [facility] Determination of erythrocyte mean corpuscular volume (MCV)Ordered By: Hung Adames on 08-10-2022 MCV (RBC) [Entitic vol] 94.1 fL 81-[address] [facility] Erythrocyte sedimentation ra teOrdered By: Hung Adames on 08-10-2022 ESR (Bld) [Velocity] 2 mm/h 0-30 [facility] Hematocrit Auto (Bld) [Volum e fraction]Ordered By: Hung Adames on 08-10-2022 Hematocrit (Bld) [Volume fraction] 32.0 % 37-47 [facility] INR in Blood by Coagulation assayOrdered By: Hung Adames on 08-10-2022 INR Coag (Bld) [Relative time] 1.1 {INR} [facility] Interpretation of serum or p lasma protein pattern by immunofixation (narrative resultOrdered By: Hung Adames on 08-10-2022 Protein Fractions Immunofixation [place] [Interp] See comment [facility] Comment on above: Result: Not Observed Laboratory - Chemistry and C hemistry - challengeOrdered By: Hung Adames on 08-10-2022 ALP [Catalytic activity/Vol] 96 U/L 45-117 [facility] ALT [Catalytic activity/Vol] 27 U/L 13-56 [facility] CO2 [Moles/Vol] 26.0 mmol/L 21.0-32.0 [facility] Free T4 [Mass/Vol] 0.97 ng/dL 0.76-1.46 [facility] Urea nitrogen/Creatinine [Mass ratio] 13.9 mg/mg 10-20 [facility] Laboratory - CoagulationOrde red By: Hung Adames on 08-10-2022 PT Coag (PPP) [Time] 14.0 s 11.7-14.9 [facility] Laboratory - Hematology and Cell countsOrdered By: Hung Adames on 08-10-2022 Erythrocyte distribution width (RBC) [Entitic vol] 46.5 fL 35.1-43.9 [facility] Erythrocyte distribution width (RBC) [Ratio] 13.6 % 11.6-14.6 [facility] Immature granulocytes/100 WBC (Bld) 0.400 % 0.0-0.9 [facility] Comment on above: IG% - Immature Granu locytes (promyelocytes, myelocytes and metamyelocytes) > 1% indicates that a LEFT SHIFT is Present. MCH (RBC) [Entitic mass] 29.7 pg 27.0-32.0 [facility] Nucleated RBC/100 WBC (Bld) [Ratio] 0 % 0-5 [facility] MCHC Auto (RBC) [Mass/Vol]Or dered By: Hung Adames on 08-10-2022 MCHC (RBC) [Mass/Vol] 31.6 g/dL 32-36 [facility] No Panel InformationOrdered By: Hung Adames on 08-10-2022 Addendum Document Comment . [facility] Comment on above: Protein electrophore sis scan will follow via computer,mail, or asbestos wire finisher delivery. Centromere B Antibody <0.2 AI 0.0-0.9 [facility] Endomysial IgA Antibody Negative Negative [facility] Estimated GFR (MDRD) Amer 54 mL/min >60 [facility] Comment on above: GFR Calc Estimated GFR (MDRD) Non-Af Amer 44 mL/min >60 [facility] Comment on above: Non- GFR Calc Free Triiodothyronine (T3) pg/dL 1.6 pg/mL 2.18-3.98 [facility] Immunoglobulin E 20 IU/mL 6-495 [facility] Comment on above: Performed at: [address] [id number] Director: Kishor Sears PhD, Phone: [phone] at: [facility] [id number] Director: Hi Hackett MD, Phone: [phone] TRACK MOVING MACHINE OPERATOR Antibody <0.2 AI 0.0-0.9 [facility] Thyroid Stimulating Hormone (TSH) 2.56 uIU/mL 0.358-3.74 [facility] Platelets bldOrdered By: Rupert Adames on 08-10-2022 Platelets (Bld) [#/Vol] 211 10*3/uL 150-450 [facility] Serum DNA double strand anti body assay (units/volume)Ordered By: Hung Adames on 08-10-2022 DNA double strand Ab Qn (S) 18 [IU]/mL 0-9 [facility] Comment on above: Negative <5 Equivoca l 5 - 9 Positive >9 Serum Lolly-1 antibody assay (u nits/volume)Ordered By: Hung Adames on 08-10-2022 Lolly-1 extractable nuclear Ab Qn (S) <0.2 AI 0.0-0.9 [facility] Serum Scl-70 extractable nuc lear antibody assay (units/volume)Ordered By: Hung Adames on 08-10-2022 SCL-70 extractable nuclear Ab Qn (S) <0.2 AI 0.0-0.9 [facility] Serum [place] extractable nucl ear antibody detectionOrdered By: Hung Adames on 08-10-2022 [place] extractable nuclear Ab Ql (S) <0.2 AI 0.0-0.9 [facility] Serum [id number] measu rement by electrophoresisOrdered By: Hung Adames on 08-10-2022 Alpha 1 globulin Elph [Mass/Vol] 0.2 g/dL 0.0-0.4 [facility] Alpha 1 globulin Elph [Mass/Vol] 0.7 g/dL 0.4-1.0 [facility] Serum classic neutrophil cyt oplasmic antibody assay (units/volume)Ordered By: Hung Adames on 08-10-2022 Neutrophil cytoplasmic Ab.classic Qn (S) <1:20 titer Neg:<1:20 [facility] Serum globulin measurement ( mass/volume)Ordered By: Hung Adames on 08-10-2022 Globulin (S) [Mass/Vol] 2.7 g/dL 2.2-3.[address] [facility] Serum or plasma C reactive p rotein measurement (mass/volume)Ordered By: Hung Adames on 08-10-2022 CRP [Mass/Vol] mg/L 0.0-3.0 [facility] Comment on above: C-Reactive Protein ( CRP) provides useful information for thediagnosis, therapy and monitoring of inflammatory processesand associated diseases. For the evaluation of Relative Riskfor Cardiovascular Disease, a High Sensitivity CRP (HSCRP)should be ordered. Serum or plasma IgA measurem ent (mass/volume)Ordered By: Hung Adames on 08-10-2022 IgA [Mass/Vol] 294 mg/dL 64-422 [facility] Serum or plasma IgG measurem ent (mass/volume)Ordered By: Hung Adames on 08-10-2022 IgG [Mass/Vol] 991 mg/dL 586-1602 [facility] Serum or plasma IgM measurem ent (mass/volume)Ordered By: Hung Adames on 08-10-2022 IgM [Mass/Vol] 64 mg/dL 26-217 [facility] Serum or plasma albumin beck urement (mass/volume)Ordered By: Hung Adames on 08-10-2022 Albumin [Mass/Vol] 2.6 g/dL 3.2-5.0 [facility] Serum or plasma albumin/glob ulin mass ratioOrdered By: Hung Adames on 08-10-2022 Albumin/Globulin [Mass ratio] 0.8 {ratio} 0.9-2.4 [facility] Serum or plasma beta globuli n measurement by electrophoresis (mass/volume)Ordered By: Hung Adames on 08-10-2022 Beta globulin Elph [Mass/Vol] 0.8 g/dL 0.7-1.3 [facility] Serum or plasma calcium beck urement (mass/volume)Ordered By: Hung Adames on 08-10-2022 Calcium [Mass/Vol] 8.4 mg/dL 8.5-10.1 [facility] Serum or plasma creatinine m easurement (mass/volume)Ordered By: Hung Adames on 08-10-2022 Creatinine [Mass/Vol] 1.22 mg/dL 0.55-1.02 [facility] Comment on above: The validity of the calculated GFR & GFRAA in patients over 70 years has not been determined. Clinical correlation is essential. Serum or plasma ferritin jose carlos surement (mass/volume)Ordered By: Hung Adames on 08-10-2022 Ferritin [Mass/Vol] 57 ng/mL 8-252 [facility] Serum or plasma gamma globul in measurement by electrophoresis (mass/volume)Ordered By: Hung Adames on 08-10-2022 Gamma globulin Elph [Mass/Vol] 1.0 g/dL 0.4-1.8 [facility] Serum or plasma immunoelectr ophoresis interpretation (nominal result)Ordered By: Hung Adames on 08-10-2022 Interpretation IEP [Interp] Comment . [facility] Comment on above: No monoclonality det ected. Serum or plasma urea nitroge n measurement (mass/volume)Ordered By: Hung Adames on 08-10-2022 Urea nitrogen [Mass/Vol] 17 mg/dL 7-18 [facility] Serum perinuclear neutrophil cytoplasmic antibody titer by immunofluorescenceOrdered By: Hung Adames on 08-10-2022 Neutrophil cytoplasmic Ab.perinuclear IF (S) [Titer] <1:20 titer Neg:<1:20 [facility] Comment on above: The presence of posi tive fluorescence exhibiting P-ANCA orC-ANCA patterns alone is not specific for the diagnosis ofWegener's Granulomatosis (WG) or microscopic polyangiitis.Decisions about treatment should not be based solely onANCA IFA results. The [employer] ANCA Group Consensusrecommends follow up testing of positive sera with both PA-3 and MPO-ANCA enzyme immunoassays. As many as 5% serumsamples are positive only by EIA. Ref. AM J Clin [id number];111:507-513. Serum tissue transglutaminas e IgA antibody assay (units/volume)Ordered By: Hung Adames on 08-10-2022 tTG IgA Qn (S) <2 U/mL 0-3 [facility] Comment on above: Negative 0 - 3 Weak Positive 4 - 10 Positive >10 Tissue Transglutaminase (tTG) has been identified as the endomysial antigen. Studies have demonstr- ated that endomysial IgA antibodies have over 99% specificity for gluten sensitive enteropathy. Thin prep Papanicolaou smear with manual screeningOrdered By: Hung Adames on 08-10-2022 Thin prep Papanicolaou smear with manual screening 26 U/L 15-37 [facility] Thin prep Papanicolaou smear with manual screening 9 5-15 [facility] Thin prep Papanicolaou smear with manual screening 1.1 0.7-1.7 [facility] Total protein bloodOrdered B y: Hung Adames on 08-10-2022 Protein [Mass/Vol] 5.6 g/dL 6.0-8.5 [facility] Culture, urineOrdered By: Dr Edmond Lauren on 06-17-2022 Bacteria identified Cx Nom (U) Klebsiella aerogenes [facility] Absolute lymphocyte countOrd ered By: Dr. Verma on 06-16-2022 Lymphocytes Auto (Unsp spec) [#/Vol] 1.80 10*3/uL 0.83-4.51 [facility] Basophil percentageOrdered B y: Dr. Verma on 06-16-2022 Basophils/100 WBC (Bld) 0.7 % 0-[address] [facility] Chloride [Moles/Vol] 103 mmol/L 98-107 [facility] Eosinophils/100 WBC (Bld) 5.6 % 0-5 [facility] Glucose [Mass/Vol] 84 mg/dL 74-106 [facility] Neutrophils (Bld) [#/Vol] 5.2 10*3/uL 2.0-7.7 [facility] Neutrophils/100 WBC (Bld) 61.5 % 47-70 [facility] Potassium [Moles/Vol] 4.3 mmol/L 3.5-5.1 [facility] Sodium [Moles/Vol] 135 mmol/L 136-145 [facility] WBC (Bld) [#/Vol] 8.4 10*3/uL 4.4-11.0 [facility] Blood erythrocytes count (nu mber/volume)Ordered By: Dr. Verma on 06-16-2022 RBC (Bld) [#/Vol] 3.07 10*6/uL 4.2-5.4 [facility] Blood hemoglobin measurement (mass/volume)Ordered By: Dr. Verma on 06-16-2022 Hemoglobin (Bld) [Mass/Vol] 9.1 g/dL 12.0-15. 0 [facility] Blood lymphocytes/100 leukoc ytesOrdered By: Dr. Verma on 06-16-2022 Lymphocytes/100 WBC (Bld) 21.4 % 19-41 [facility] Blood monocytes/100 leukocyt esOrdered By: Dr. Verma on 06-16-2022 Monocytes/100 WBC (Bld) 10.2 % 0-[address] [facility] Blood platelet mean volumeOr dered By: Dr. Verma on 06-16-2022 Platelet mean volume (Bld) [Entitic vol] 9.9 fL 6.2-12.0 [facility] Determination of erythrocyte mean corpuscular volume (MCV)Ordered By: Dr. Verma on 06-16-2022 MCV (RBC) [Entitic vol] 92.2 fL 81-[address] [facility] Glucose Glucometer (BldC) [M ass/Vol]Ordered By: Dr. Verma on 06-16-2022 Glucose [Mass/Vol] 185 mg/dL 74-106 [facility] Comment on above: MANAGEMENT OF PATIEN T CARE PER NURSING PROTOCOL Hematocrit Auto (Bld) [Volum e fraction]Ordered By: Dr. Verma on 06-16-2022 Hematocrit (Bld) [Volume fraction] 28.3 % 37-47 [facility] Laboratory - Chemistry and C hemistry - challengeOrdered By: Dr. Verma on 06-16-2022 CO2 [Moles/Vol] 27.0 mmol/L 21.0-32.0 [facility] Urea nitrogen/Creatinine [Mass ratio] 14.5 mg/mg 10-20 [facility] Laboratory - Hematology and Cell countsOrdered By: Dr. Verma on 06-16-2022 Erythrocyte distribution width (RBC) [Entitic vol] 46.6 fL 35.1-43.9 [facility] Erythrocyte distribution width (RBC) [Ratio] 13.8 % 11.6-14.6 [facility] Immature granulocytes/100 WBC (Bld) 0.600 % 0.0-0.9 [facility] Comment on above: IG% - Immature Granu locytes (promyelocytes, myelocytes and metamyelocytes) > 1% indicates that a LEFT SHIFT is Present. MCH (RBC) [Entitic mass] 29.6 pg 27.0-32.0 [facility] Nucleated RBC/100 WBC (Bld) [Ratio] 0 % 0-5 [facility] MCHC Auto (RBC) [Mass/Vol]Or dered By: Dr. Verma on 06-16-2022 MCHC (RBC) [Mass/Vol] 32.2 g/dL 32-36 [facility] No Panel InformationOrdered By: Dr. Verma on 06-16-2022 Estimated Creatinine Clearance Calc 40.91 ml/min [facility] Estimated GFR (MDRD) Amer 71 mL/min >60 [facility] Comment on above: GFR Calc Estimated GFR (MDRD) Non-Af Amer 58 mL/min >60 [facility] Comment on above: Non- GFR Calc Platelets bldOrdered By: Dr. Verma on 06-16-2022 Platelets (Bld) [#/Vol] 203 10*3/uL 150-450 [facility] Serum or plasma calcium beck urement (mass/volume)Ordered By: Dr. Verma on 06-16-2022 Calcium [Mass/Vol] 8.3 mg/dL 8.5-10.1 [facility] Serum or plasma creatinine m easurement (mass/volume)Ordered By: Dr. Verma on 06-16-2022 Creatinine [Mass/Vol] 0.96 mg/dL 0.55-1.02 [facility] Comment on above: The validity of the calculated GFR & GFRAA in patients over 70 years has not been determined. Clinical correlation is essential. Serum or plasma urea nitroge n measurement (mass/volume)Ordered By: Dr. Verma on 06-16-2022 Urea nitrogen [Mass/Vol] 14 mg/dL 7-18 [facility] Thin prep Papanicolaou smear with manual screeningOrdered By: Dr. Verma on 06-16-2022 Thin prep Papanicolaou smear with manual screening 5 5-15 [facility] Basophil percentageOrdered B y: Dr. Paredes on 06-15-2022 Cholesterol [Mass/Vol] 91 mg/dL <200 [facility] Comment on above: <200 mg/dL Desirable 200-240 mg/dL Borderline >240 mg/dL High Risk Triglyceride [Mass/Vol] 51 mg/dL <[address] [facility] Comment on above: The drugs N-Acetylcy steine and Metamizole may falsely depress this assay.Serum Triglycerides Reference Interval Normal <150 mg/dL Borderline high 150 - 199 mg/dL High 200 - 499 mg/dL Very High > or = 500 mg/dL Serum or plasma cholesterol in HDL measurement (mass/volume)Ordered By: Dr. Paredes on 06-15-2022 Cholesterol in HDL [Mass/Vol] 45 mg/dL >40 [facility] Comment on above: The drugs N-Acetylcy steine and Metamizole may falsely depress this assay. Reference Range HDL <40 mg/dL Low HDL Cholesterol HDL >or= 60 mg/dL High HDL Cholesterol Serum or plasma cholesterol in VLDL measurement (mass/volume)Ordered By: Dr. Paredes on 06-15-2022 Cholesterol in VLDL [Mass/Vol] 10 mg/dL 5-40 [facility] Serum or plasma low density lipoprotein (LDL) cholesterol measurement (mass/volume)Ordered By: Dr. Paredes on 06-15-2022 Cholesterol in LDL [Mass/Vol] 36 mg/dL 0-130 [facility] Whole blood hemoglobin A1c/t otal hemoglobin ratio (mass fraction)Ordered By: Dr. Paredes on 06-15-2022 HbA1c (Bld) [Mass fraction] 6.1 % 3.8-5.6 [facility] Comment on above: Normal < 5.7 % Predi abetic 5.7 - 6.4 % Diabetic >or= 6.5 % Please note range changes. Basophil percentageOrdered B y: Dr. Lauren on 06-14-2022 Basophil percentage 0-5 SEEN /hpf 0-5 [facility] Bilirubin Test strip Ql (U)O rdered By: Dr. Lauren on 06-14-2022 Bilirubin Ql (U) Negative Negative [facility] INR in Blood by Coagulation assayOrdered By: Dr. Lauren on 06-14-2022 INR Coag (Bld) [Relative time] 1.0 {INR} [facility] Ketones Test strip Ql (U)Ord ered By: Dr. Lauren on 06-14-2022 Ketones Ql (U) Negative Negative [facility] Laboratory - CoagulationOrde red By: Dr. Lauren on 06-14-2022 aPTT Coag (Bld) [Time] 23.5 s 24.1-36.2 [facility] PT Coag (PPP) [Time] 13.3 s 11.7-14.9 [facility] Mucus LM Ql (Urine sed)Order ed By: Dr. Lauren on 06-14-2022 Mucus Ql (Urine sed) 0 SEEN /hpf [facility] Nitrite Test strip Ql (U)Ord ered By: Dr. Lauren on 06-14-2022 Nitrite Ql (U) Negative Negative [facility] No Panel InformationOrdered By: Dr. Lauren on 06-14-2022 Troponin I High Sensitivity 25 pg/mL 3.0-54.0 [facility] Comment on above: Please Note: New Mesha t Units and Gender Specific Reference Ranges. For more information see Policy Stat Procedure [place] High Sensitivity Troponin (TNIH) and attachments. Protein Test strip Ql (U)Ord ered By: Dr. Lauren on 06-14-2022 Protein Ql (U) Negative Negative [facility] Squamous epithelial cells de tection in urine sediment by light microscopyOrdered By: Dr. Lauren on 06-14-2022 Epithelial cells.squamous LM Ql (Urine sed) 0 SEEN /hpf 5-10 [facility] Urine blood detectionOrdered By: Dr. Lauren on 06-14-2022 RBC Ql (U) Negative Negative [facility] RBC Ql (U) 0 SEEN /hpf 0-5 [facility] Urine clarityOrdered By: Dr. Lauren on 06-14-2022 Clarity (U) Sl. Cloudy Clear [facility] Urine color determinationOrd ered By: Dr. Lauren on 06-14-2022 Color (U) Yellow Yellow [facility] Urine glucose detectionOrder ed By: Dr. Lauren on 06-14-2022 Glucose Ql (U) Normal mg/dl Normal [facility] Urine leukocyte esterase det ection by dipstickOrdered By: Dr. Lauren on 06-14-2022 Leukocyte esterase Test strip Ql (U) 25 /ul Negative [facility] Urine pHOrdered By: Dr. Kieran fuchs on 06-14-2022 pH (U) 8.0 [pH] 5.0 - 8.0 [facility] Urine sediment bacteria coun t by microscopy (number/high power field)Ordered By: Dr. Lauren on 06-14-2022 Bacteria LM.HPF (Urine sed) [#/Area] 3 /[HPF] None Seen [facility] Urine specific gravity measu rementOrdered By: Dr. Lauren on 06-14-2022 Specific gravity (U) [Rel density] 1.015 1.002-1.030 [facility] Urobilinogen Auto test strip Ql (U)Ordered By: Dr. Lauren on 06-14-2022 Urobilinogen Ql (U) Normal mg/dl Normal [facility] Vital Signs Date Time Vital Sign Value Performing Clinician Facility 11-25-2024 13:12-0400 Body height 160 cm Libertad Whittaker APRN-ASSOCIATE [employer] SAL[employer] Work Phone: [facility] 11-25-2024 13:12-0400 Body mass index (BMI) [Ratio] 29.58 kg/m2 Libertad Whittaker [employer] TE[employer]ER-ASSOCIATE [employer] SAL[employer] Work Phone: [facility] 11-25-2024 13:12-0400 Body weight 75.75 kg Libertad Whittaker [employer]ASS[employer]ATE [employer] Work Phone: [facility] 11-25-2024 13:12-0400 Diastolic blood pressure 84 mm[Hg] Libertad Whittaker [employer] TE[employer]ASS[employer]ATE [employer] Work Phone: [facility] 11-25-2024 13:12-0400 Heart rate 60 /min Libertad Whittaker [employer] TE[employer]ER-ASSOC[employer]ATE [employer] Work Phone: [facility] 11-25-2024 13:12-0400 Systolic blood pressure 149 mm[Hg] Libertad Whittaker [employer] TE[employer]ER[employer]ASSOC[employer]ATE [employer] Work Phone: [facility] 06-08-2023 00:26-0500 Diastolic blood pressure 87 mm[Hg] Dr. Clinton Fowler Work Phone: [facility] 06-08-2023 00:26-0500 Heart rate 72 /min Dr. Clinton Fowler Work Phone: [facility] 06-08-2023 00:26-0500 Respiratory rate 16 /min Dr. Clinton Fowler Work Phone: [facility] 06-08-2023 00:26-0500 SaO2% (BldA) [Mass fraction] 97 % Dr. Clinton Fowler Work Phone: [facility] 06-08-2023 00:26-0500 Systolic blood pressure 161 mm[Hg] Dr. Clinton Fowler Work Phone: [facility] 06-07-2023 22:34-0500 Body height 160.[address] Clinton Fowler Work Phone: [facility] 06-07-2023 22:34-0500 Body mass index (BMI) [Ratio] 31 kg/m2 Dr. Clinton Fowler Work Phone: [facility] 06-07-2023 22:34-0500 Body temperature 97.6 [degF] Dr. Clinton Fowler Work Phone: [facility] 06-07-2023 22:34-0500 Body weight 79.[address] Clinton Fowler Work Phone: [facility] 06-03-2023 12:27-0500 Body mass index (BMI) [Ratio] 29 kg/m2 Dr. Clinton Fowler Work Phone: [facility] 06-03-2023 12:27-0500 Body weight 74.[address] Clinton Fowler Work Phone: [facility] 06-03-2023 12:27-0500 Diastolic blood pressure 90 mm[Hg] Dr. Clinton Fowler Work Phone: [facility] 06-03-2023 12:27-0500 Heart rate 77 /min Dr. Clinton Fowler Work Phone: [facility] 06-03-2023 12:27-0500 Respiratory rate 18 /min Dr. Clinton Fowler Work Phone: [facility] 06-03-2023 12:27-0500 SaO2% (BldA) [Mass fraction] 93 % Dr. Clinton Fowler Work Phone: [facility] 06-03-2023 12:27-0500 Systolic blood pressure 167 mm[Hg] Dr. Clinton Fowler Work Phone: [facility] 01-14-2023 13:40-0400 Body temperature 97.9 [degF] Dr. Clinton Fowler Work Phone: [facility] 01-14-2023 13:40-0400 Diastolic blood pressure 55 mm[Hg] Dr. Clinton Fowler Work Phone: [facility] 01-14-2023 13:40-0400 Heart rate 99 /min Dr. Clinton Fowler Work Phone: [facility] 01-14-2023 13:40-0400 Respiratory rate 15 /min Dr. Clinton Fwoler Work Phone: [facility] 01-14-2023 13:40-0400 SaO2% (BldA) [Mass fraction] 97 % Dr. Clinton Fowler Work Phone: [facility] 01-14-2023 13:40-0400 Systolic blood pressure 130 mm[Hg] Dr. Clinton Fowler Work Phone: [facility] 01-13-2023 14:42-0400 Body height 177.[address] Clinton Fowler Work Phone: [facility] 01-13-2023 14:42-0400 Body weight 73.[address] Clinton Fowler Work Phone: [facility] 01-12-2023 16:07-0400 Body mass index (BMI) [Ratio] 23.2 kg/m2 Dr. Clinton Fowler Work Phone: [facility] 09-20-2022 15:19-0500 Body height 177.[address] Clinton Fowler Work Phone: [facility] 09-20-2022 15:19-0500 Body weight 84.[address] Clinton Fowler Work Phone: [facility] 09-20-2022 15:16-0500 Body temperature 97.6 [degF] Dr. Clinton Fowler Work Phone: [facility] 09-20-2022 15:16-0500 Diastolic blood pressure 64 mm[Hg] Dr. Clinton Fowler Work Phone: [facility] 09-20-2022 15:16-0500 Heart rate 63 /min Dr. Clinton Fowler Work Phone: [facility] 09-20-2022 15:16-0500 Respiratory rate 14 /min Dr. Clinton Fowler Work Phone: [facility] 09-20-2022 15:16-0500 SaO2% (BldA) [Mass fraction] 97 % Dr. Clinton Fowler Work Phone: [facility] 09-20-2022 15:16-0500 Systolic blood pressure 112 mm[Hg] Dr. Clinton Fowler Work Phone: [facility] 09-20-2022 14:13-0500 Body mass index (BMI) [Ratio] 26.6 kg/m2 Dr. Clinton Fowler Work Phone: [facility] 09-18-2022 14:55-0500 Inhaled oxygen flow rate 2 L/min Dr. Clinton Fowler Work Phone: [facility] 09-16-2022 20:15-0500 Body height 177.[address] Clinton Fowler Work Phone: [facility] 09-16-2022 20:15-0500 Body mass index (BMI) [Ratio] 26.6 kg/m2 Dr. Clinton Fowler Work Phone: [facility] 09-16-2022 20:15-0500 Body weight 84.[address] Clinton Fowler Work Phone: [facility] 09-16-2022 19:54-0500 Body temperature 97.9 [degF] Dr. Clinton Fowler Work Phone: [facility] 09-16-2022 19:54-0500 Diastolic blood pressure 77 mm[Hg] Dr. Clinton Fowler Work Phone: [facility] 09-16-2022 19:54-0500 Heart rate 72 /min Dr. Clinton Fowler Work Phone: [facility] 09-16-2022 19:54-0500 Respiratory rate 18 /min Dr. Clinton Fowler Work Phone: [facility] 09-16-2022 19:54-0500 SaO2% (BldA) [Mass fraction] 95 % Dr. Clinton Fowler Work Phone: [facility] 09-16-2022 19:54-0500 Systolic blood pressure 136 mm[Hg] Dr. Clinton Fowler Work Phone: [facility] 06-16-2022 16:00-0500 Body temperature 97.9 [degF] Dr. Clinton Fowler Work Phone: [facility] 06-16-2022 16:00-0500 Diastolic blood pressure 102 mm[Hg] Dr. Clinton Fowler Work Phone: [facility] 06-16-2022 16:00-0500 Heart rate 82 /min Dr. Clinton Fowler Work Phone: [facility] 06-16-2022 16:00-0500 Respiratory rate 18 /min Dr. Clinton Fowler Work Phone: [facility] 06-16-2022 16:00-0500 SaO2% (BldA) [Mass fraction] 94 % Dr. Clinton Fowler Work Phone: [facility] 06-16-2022 16:00-0500 Systolic blood pressure 123 mm[Hg] Dr. Clinton Fowler Work Phone: [facility] 06-15-2022 19:47-0500 Body mass index (BMI) [Ratio] 30.4 kg/m2 Dr. Clinton Fowler Work Phone: [facility] 06-15-2022 11:29-0500 Body height 170.[address] Clinton Fowler Work Phone: [facility] 06-15-2022 11:29-0500 Body weight 88.[address] Clinton Fowler Work Phone: [facility] 02-04-2022 15:50-0400 Body height 170.18 cm [facility] Work Phone: 02-04-2022 15:50-0400 Body mass index (BMI) [Ratio] 32.8 kg/m2 [facility] Work Phone: 02-04-2022 15:50-0400 Body temperature 99 [degF] [facility] Work Phone: 02-04-2022 15:50-0400 Body weight 95.25 kg [facility] Work Phone: 02-04-2022 15:50-0400 Diastolic blood pressure 70 mm[Hg] [facility] Work Phone: 02-04-2022 15:50-0400 Heart rate 84 /min [facility] Work Phone: 02-04-2022 15:50-0400 Respiratory rate 14 /min [facility] Work Phone: 02-04-2022 15:50-0400 SaO2% (BldA) [Mass fraction] 97 % [facility] Work Phone: 02-04-2022 15:50-0400 Systolic blood pressure 138 mm[Hg] [facility] Work Phone: Encounters Encounter Date Encounter Type Care Provider Facility Start: 01-01-2025 End: 01-01-[address] Clinton Fowler DO Work Phone: [facility] Work Phone: Start: 01-01-2025 End: 01-01-[address] Clinton Fowler DO [facility] Start: 01-01-2025 End: 01-01-2025 ambulatory Clinton Fowler Facility:[facility] Start: 12-11-2024 End: 12-11-2024 Patient encounter procedure Hung Adames DO -[facility] Work Phone: Start: 12-11-2024 End: 12-11-[address] Clinton Fowler DO Work Phone: [facility] Work Phone: Start: 11-25-2024 End: 11-25-2024 ambulatory LIBERTAD WHITTAKER [facility] Start: 11-25-2024 End: 11-25-2024 Office outpatient new 60 minutes Libertad Whittaker [employer]ASSOC[employer]ATE [employer] Work Phone: [facility] Comment on above: TOBY (obstructive sle ep apnea) (Primary Dx); PLMD (periodic limb movement disorder); Dementia without behavioral disturbance (Multi); Hypersomnia Start: 06-28-2024 End: 06-28-2024 Emergency department patient visit Nikita Alvarado Facility:[facility] Start: 06-09-2024 End: 06-09-2024 ambulatory Clinton [facility] Facility:[facility] Start: 05-23-2024 End: 05-23-2024 ambulatory Libertad Whittaker [employer] Facility:[facility] Start: 01-21-2024 End: 01-21-2024 ambulatory LIBERTAD WHITTAKER Not Available Start: 01-16-2024 End: 01-16-2024 ambulatory Clinton Fowler Facility:[facility] Start: 01-16-2024 End: 01-16-2024 ambulatory Cyril FALL Facility:[facility] Start: 01-12-2024 End: 01-12-2024 ambulatory Clinton DavisJaneth Facility:[facility] Start: 09-28-2023 End: 09-28-2023 ambulatory [facility] Work Phone: Start: 09-28-2023 End: 09-28-2023 Patient encounter procedure [facility] Specimen Work Phone: Start: 07-20-2023 End: 07-20-2023 ambulatory LIBERTAD WHITTAKER Not Available Start: 06-07-2023 End: 06-08-2023 Emergency department patient visit Dr. Clinton Fowler Work Phone: [facility]Emergency Department Work Phone: Start: 06-04-2023 End: 06-04-[address] Clinton Fowler Work Phone: [facility] Work Phone: Start: 06-03-2023 End: 06-03-[address] Clinton Fowler Work Phone: [facility] Work Phone: Start: 04-27-2023 End: 04-27-[address] Clinton Fowler Work Phone: [facility] Work Phone: Start: 04-27-2023 End: 04-27-[address] Clinton Fowler Work Phone: [facility] Work Phone: Start: 04-25-2023 End: 04-25-[address] Clinton Fowler Work Phone: [facility] Work Phone: Start: 04-25-2023 End: 04-25-[address] Clinton Fowler Work Phone: [facility] Start: 01-24-2023 End: 01-24-[address] Clinton Fowler Work Phone: [facility] Work Phone: Start: 01-24-2023 End: 01-24-[address] Clinton Fowler Work Phone: [facility] Start: 01-14-2023 Non-patient / Non-visit Dr. Clinton Fowler Work Phone: [facility] Work Phone: Start: 01-13-2023 Non-patient / Non-visit Dr. Clinton Fowler Work Phone: [facility] Start: 01-13-2023 Non-patient / Non-visit Dr. Clinton Fowler Work Phone: [facility] Work Phone: Start: 01-12-2023 Non-patient / Non-visit Dr. Clinton Fowler Work Phone: [facility] Start: 01-12-2023 Non-patient / Non-visit Dr. Clinton Fowler Work Phone: [facility] Work Phone: Start: 01-12-2023 End: 01-14-2023 Evaluation and management of inpatient Dr. Clinton Fowler Work Phone: [facility]Progressive Care Unit Work Phone: Start: 12-05-2022 End: 12-05-[address] Clinton Fowler Work Phone: [facility] Work Phone: Start: 10-23-2022 End: 10-23-[address] Clinton Fowler Work Phone: [facility] Work Phone: Start: 10-23-2022 End: 10-23-[address] Clinton Fowler Work Phone: [facility] Start: 09-20-2022 Non-patient / Non-visit Dr. Clinton Fowler Work Phone: [facility] Start: 09-19-2022 End: 09-19-2022 Non-patient / Non-visit Dr. Clinton Fowler Work Phone: [facility] Start: 09-19-2022 Non-patient / Non-visit Dr. Clinton Fowler Work Phone: [facility] Start: 09-18-2022 Non-patient / Non-visit Dr. Clinton Fowler Work Phone: [facility] Start: 09-17-2022 Non-patient / Non-visit Dr. Clinton Fowler Work Phone: [facility] Start: 09-16-2022 End: 09-20-2022 Evaluation and management of inpatient Dr. Clinton Fowler Work Phone: [facility]Medical Surgical 3 Start: 08-23-2022 End: 08-23-[address] Clinton Fowler Work Phone: [facility] Work Phone: Start: 08-23-2022 End: 08-23-[address] lCinton Fowler Work Phone: [facility] Start: 08-13-2022 End: 08-13-[address] Clinton Fowler Work Phone: [facility] Work Phone: Start: 08-13-2022 End: 08-13-[address] Clinton Fowler Work Phone: [facility]Laboratory[facility] Specimen Start: 08-11-2022 End: 08-11-[address] Clinton Fowler Work Phone: [facility] Work Phone: Start: 08-11-2022 End: 08-11-[address] Clinton Fowler Work Phone: [facility] Spec[facility] Start: 08-10-2022 End: 08-10-[address] Clinton Fowler Work Phone: [facility] Work Phone: Start: 08-10-2022 End: 08-10-[address] Clinton Fowler Work Phone: [facility] Start: 06-16-2022 Non-patient / Non-visit Dr. Clinton Fowler Work Phone: [facility] Start: 06-15-2022 Non-patient / Non-visit Dr. Clinton Fowler Work Phone: [facility] Start: 06-15-2022 End: 06-16-2022 Evaluation and management of inpatient Dr. Clinton Fowler Work Phone: [facility] Start: 06-15-2022 End: 06-16-[address] Clinton Fowler Work Phone: [facility] Work Phone: Start: 02-04-2022 End: 02-04-2022 Emergency department patient visit [facility]Emergency Department Procedures Date Procedure Procedure Detail Performing Clinician Start: 09-28-2023 Urine culture Start: 06-07-2023 Plain chest X-ray Start: 04-27-[address] Clinton Fowler Work Phone: Start: 01-13-[address] detection [address] Clinton Fowler Work Phone: Start: 01-13-[address] Clinton Fowler Work Phone: Start: 01-13-[address] Clinton Fowler Work Phone: Start: 01-13-20[address] [address] parasites identification [address] Clinton Fowler Work Phone: Start: 01-12-2023 CT of head without contrast Dr. Clinton Fowler Work Phone: Start: 01-12-2023 CT of abdomen and pe lvis without contrast Dr. Clinton Fowler Work Phone: Start: 10-23-2022 Giardia Antigen (JIMI) D joselin Fowler Work Phone: Start: 10-23-20[address] parasites identification [address] Clinton Fowler Work Phone: Start: 09-18-2022 MRI of brain without contrast Dr. Clinton Fowler Work Phone: Start: 09-16-2022 Plain chest X-ray Dr. Shantel Fowler Work Phone: Start: 09-16-2022 CT of head without contrast Dr. Clinton Fowler Work Phone: Start: 09-16-2022 Bacteria identified in Blood by Culture Dr. Clinton Fowler Work Phone: Start: 09-16-[address] Clinton Fowler Work Phone: Start: 08-23-2022 Computed tomography of abdomen and pelvis with contrast Dr. Clinton Fowler Work Phone: Start: 06-15-2022 MRI of brain without contrast Dr. Clinton Fowler Work Phone: Start: 06-14-2022 Plain chest X-ray Dr. Shantel Fowler Work Phone: Start: 06-14-2022 CT angiography of he ad and neck Dr. Clinton Fowler Work Phone: Start: 06-14-2022 CT of head without contrast Dr. Clinton Fowler Work Phone: Start: 02-04-2022 Plain X-ray of scapula Start: 02-04-2022 Computed tomography of thoracic spine without contrast Start: 02-04-2022 CT cervical spine wi thout contrast Start: 02-04-2022 CT of head without contrast Bacteria identified in Blood by Culture Dr. Clinton Fowler Work Phone: Bacteria identified in Blood by Culture Dr. Clinton Fowler Work Phone: Clostridium difficil e detection Dr. Clinton Fowler Work Phone: Clostridium difficil e detection Dr. Clinton Fowler Work Phone: Enteric Bacteriology Dr. Brynn Fowler Work Phone: Enteric Bacteriology Dr. Brynn Fowler Work Phone: Giardia Antigen (JIMI) Dr. Bettie Fowler Work Phone: Lactoferrin measurement Dr. Clinton Fowler Work Phone: Lactoferrin measurement Dr. Clinton Fowler Work Phone: Measurement of occul t blood in stool specimen using immunoassay Dr. Clinton Fowler Work Phone: O[facility] OR parasites identification Dr. Clinton Fowler Work Phone: Urine culture Dr. Clinton jimenes Work Phone: Urine culture Dr. Clinton jimenes Work Phone: Plan of Treatment Date Care Activity Detail Author Start: 09-11-2031 DTaP/Tdap/Td Vaccines (3 - Td or Tdap) DTaP/Tdap/Td Vaccines (3 - Td or Tdap) [facility] Start: 05-26-2025 End: 05-26-2025 Patient encounter procedure 05/26/2025 1:00 PM EST Office Visit [facility] [address] [place] [address] Libertad Whittaker, [employer] TE[employer]ER[employer]ASSOCIATE [employer] [id number] [facility] Start: 03-16-2024 COVID-19 Vaccine ( season) COVID-19 Vaccine ( season) [facility] Start: 06-08-2023 [facility] Start: 06-07-2023 Plain chest X-ray Chest 1 View (Portable) [facility] Start: 06-07-2023 XR Chest Single view [facility] Start: 01-14-2023 Patient discharge [facility] Start: 01-13-2023 Ova and Parasites Ova and Parasites [facility] Start: 01-12-2023 Assessment of risk of venous thromboembolism [facility] Start: 01-12-2023 Documentation procedure [facility] Start: 01-12-2023 Insertion of catheter into peripheral vein [facility] Start: 01-12-2023 Measuring intake and output [facility] Start: 01-12-2023 Providing care according to standard [facility] Start: 01-12-2023 Provision of activity privileges [facility] Start: 01-12-2023 Referral to gastroenterology service [facility] Start: 01-12-2023 Referral to occupational therapist [facility] Start: 01-12-2023 Referral to service [facility] Start: 01-12-2023 [facility] Start: 01-12-2023 Following clinical pathway protocol [facility] Start: 01-12-2023 Admission procedure [facility] Start: 01-12-2023 Patient referral to dietitian [facility] Start: 12-26-2022 Pneumococcal vaccination Pneumococcal Vaccine (2 of 2 - PCV) [facility] Start: 09-26-2022 Blood chemistry [facility] Start: 09-25-2022 Blood chemistry [facility] Start: 09-24-2022 Blood chemistry [facility] Start: 09-23-2022 Blood chemistry [facility] Start: 09-22-2022 Blood chemistry [facility] Start: 09-21-2022 Blood chemistry [facility] Start: 09-20-2022 Patient discharge [facility] Start: 09-20-2022 Referral to service [facility] Start: 09-18-2022 Speech therapy assessment [facility] Start: 09-18-2022 Implementation of planned interventions [facility] Start: 09-18-2022 Notification of physician [facility] Start: 09-18-2022 Care planning and problem solving actions [facility] Start: 09-18-2022 Cardiac monitoring [facility] Start: 09-18-2022 Catheterization of vein [facility] Start: 09-18-2022 Elevation of head of bed [facility] Start: 09-18-2022 Exercises [facility] Start: 09-18-2022 Implementation of planned interventions [facility] Start: 09-18-2022 Notification of physician [facility] Start: 09-18-2022 [facility] Start: 09-16-2022 Assessment of risk of venous thromboembolism [facility] Start: 09-16-2022 Care regimes management [facility] Start: 09-16-2022 Catheterization of vein [facility] Start: 09-16-2022 Insertion of catheter into peripheral vein [facility] Start: 09-16-2022 Oxygen therapy [facility] Start: 09-16-2022 Providing care according to standard [facility] Start: 09-16-2022 Provision of activity privileges [facility] Start: 09-16-2022 Referral to occupational therapist [facility] Start: 09-16-2022 Referral to service [facility] Start: 09-16-2022 [facility] Start: 09-16-2022 Following clinical pathway protocol [facility] Start: 09-16-2022 Verification routine [facility] Start: 09-16-2022 Admission procedure [facility] Start: 09-16-2022 Blood culture [facility] Start: 09-16-2022 End: 09-16-2022 [facility] Start: 09-16-2022 Blood culture [facility] Start: 09-16-2022 Patient referral to dietitian [facility] Start: 06-23-2022 Blood chemistry [facility] Work Phone: Start: 06-22-2022 Blood chemistry [facility] Work Phone: Start: 06-21-2022 Blood chemistry [facility] Work Phone: Start: 06-20-2022 Blood chemistry [facility] Work Phone: Start: 06-19-2022 Blood chemistry [facility] Work Phone: Start: 06-18-2022 Blood chemistry [facility] Work Phone: Start: 06-17-2022 Blood chemistry [facility] Work Phone: Start: 06-16-2022 Patient discharge [facility] Start: 06-15-2022 Application of intermittent pneumatic compression device [facility] Start: 06-15-2022 Following clinical pathway protocol [facility] Start: 06-15-2022 Assessment of risk of venous thromboembolism [facility] Start: 06-15-2022 Cardiac monitoring [facility] Start: 06-15-2022 Catheterization of vein [facility] Start: 06-15-2022 Elevation of head of bed [facility] Start: 06-15-2022 Exercises [facility] Start: 06-15-2022 Implementation of planned interventions [facility] Start: 06-15-2022 Insertion of catheter into peripheral vein [facility] Start: 06-15-2022 Measuring intake and output [facility] Start: 06-15-2022 Notification of physician [facility] Start: 06-15-2022 Providing care according to standard [facility] Start: 06-15-2022 Provision of activity privileges [facility] Start: 06-15-2022 Referral to occupational therapist [facility] Start: 06-15-2022 Referral to service [facility] Start: 06-15-2022 Tobacco use cessation education [facility] Start: 06-15-2022 [facility] Start: 06-15-2022 Admission procedure [facility] Start: 06-15-2022 Patient referral to dietitian [facility] Start: 06-14-2022 [facility] Work Phone: Start: 02-17-2011 RSV High Risk: (Elderly (60+) or Population) (1 - 1-dose 75+ series) RSV High Risk: (Elderly (60+) or Population) (1 - 1-dose 75+ series) [facility] Start: 02-17-1986 Zoster Vaccines (1 of 2) Zoster Vaccines (1 of 2) [facility] Start: 02-17-1954 Diabetes mellitus screening Diabetes Screening [facility] Start: 1935 Lipid panel Lipid Panel [facility] Start: 1935 Medicare Annual Wellness Visit Medicare Annual Wellness Visit (AWV) [facility] Start: 1935 Screening for osteoporosis Bone Density Scan [facility] Bacteria identified in Blood by Culture Blood Culture [facility] Bacteria identified in Blood by Culture Blood Culture [facility] Bacteria identified in Urine by Culture Urine Culture [facility] Ova and parasites identified in Unspecified specimen by Light microscopy [facility] Ova and parasites identified in Unspecified specimen by Light microscopy [facility] Patient Education [facility] Work Phone: Patient referral [facility] Work Phone: Procedure [facility] Urine culture Urine Culture [facility] Work Phone: [facility] Immunizations Immunization Date Immunization Notes Care Provider Fa cility 06-26-2022 influenza, injectabl e, quadrivalent, preservative free Dr. Clinton Fowler Work Phone: [facility] 06-26-2022 influenza, seasonal, injectable Dr. Clinton Fowler Work Phone: [facility] 09-11-2021 tetanus toxoid, redu luis fernando diphtheria toxoid, and acellular pertussis vaccine, adsorbed [facility] 06-15-2021 Influenza virus vaccine W [facility] 04-14-2021 Covid (Moderna) [facility] 09-02-2020 Covid (Moderna) [facility] 08-05-2020 Covid (Moderna) [facility] 07-14-2019 tetanus toxoid, redu luis fernando diphtheria toxoid, and acellular pertussis vaccine, adsorbed [facility] 06-14-2013 Influenza virus vaccine W [facility] 07-16-2011 Pneumococcal Vaccine [facility] Work Phone: 07-16-2011 pneumococcal vaccine , unspecified formulation Dr. Clinton Fowler Work Phone: [facility] Payers Date Payer Category Payer Self-pay [id number] 2015 Medicare supplementa l policy (as second payer) [employer] MEDICARE SUPPLEMENT [id number] 2015 Private Health Insurance [id number] 2001 Medicare MEDICARE PART A AND B [id number] 2001 Medicare [id number] 1936 Unknown [id number] 1936 Unknown [id number] [id number] 1936 Unknown [id number] [id number] Unknown [id number] Unknown [id number] Unknown [id number] Unknown [id number] [id number] Unknown [id number] [id number] Unknown [id number] Unknown [id number] Unknown [id number] Social History Date Type Detail Facility Start: 02-04-2022 End: 06-07-2023 Tobacco smoking status NHIS Unknown if ever smoked [facility] Start: 12-03-2018 None [facility] Start: 07-14-2019 Spouse/ Signif icant Other [facility] Start: 07-14-2019 Non-smoker [facility] Start: 1935 Sex Assigned At Female W [facility] Start: 06-28-2024 End: 11-25-2024 Tobacco smoking status NHIS Never smoked tobacco [facility] Work Phone: Start: 11-25-2024 Tobacco use and exposure Smokeless tobacco non-user [facility] Work Phone: Start: 11-25-2024 Alcoholic beverage intake Lifetime non-drinker (finding) [facility] Work Phone: Start: 11-25-2024 History of Social function [facility] Work Phone: Start: 11-25-2024 Tobacco use panel [facility] Work Phone: Start: 1935 Sex assigned at Not on file [facility] Work Phone: Start: 11-15-2024 End: 11-25-2024 Exposure to SARS-CoV-2 (event) Not sure [facility] Goals Date Patient Goal Desired Activity /State Functional Status Date Assessment Result Facility 01-14-2023 Functional status Activity Abili ty With Assist of 1 [facility] Work Phone: 09-20-2022 Functional status Activity Abili ty With Assist of 2 [facility] Work Phone: 09-20-2022 Functional status Chair [facility] Work Phone: 06-16-2022 Functional status Ambulates;Shree r;Bathroom Privilege [facility] Work Phone: Mental Status Date Assessment Result Facility 06-07-2023 Cognitive function Level Of Cons ciousness Awake;Disoriented [facility] Work Phone: 01-14-2023 Cognitive function Voice/Name [facility] Work Phone: 09-20-2022 Cognitive function Voice/Name [facility] Work Phone: 09-16-2022 Cognitive function Level Of Cons ciousness Awake;Lethargic;Inappropriate [facility] Work Phone: 06-16-2022 Cognitive function Voice/Name [facility] Work Phone: Clinical Notes 09-16-2022 to 12-11-2024 Note Date & Type Note Facility 12-11-2024 Evaluation note Diagnosis Onset Date Resolution Chronic anemia chronic December 11, 2024 1:48pm Exocrine pancreatic insufficiency chronic December 11, 2024 1:48pm GI bleed resolved December 11, 2024 1:48pm Loose stools inactive December 11 1:48pm [facility] Work Phone: 1(544) 117-196705-13-2025 History of Present illness Narrative* Libertad Whittaker, [employer] - 11/25/2024 1:00 PM EDT Images from the original note were not included. CHIEF COMPLAINT: Dementia Plmd Toby hypersomnia HISTORY OF PRESENT ILLNESS: 89 year old female presented to office with spouse to establish care for dementia, plmd, toby and hypersomnia. Known to this provider, previously at [facility]- office closed. Wears pap nightly, sleeps well at night at least 8-12 hours, tolerates well per spouse. Denies snoring or gasping for air through mask. Requesting compliance report from amynile. Previously good compliance. Spouse does not note uncontrollable legs or arms movement, tolerates ropinirole. Hypersomnia continues during the day, will take naps on and off- no change from previous visits with this provider, defers medication. Denies worsening memory, denies agitation or hallucinations. Spouse is primary caregiverand helps with adls, meals, patient uses quad or rollator with ambulation. No falls. Overall doing well per spouse. All questions and concerns addressed. Medications Ordered Prior to Encounter[1] Medical History[2] Surgical History[3] Family History[4] Social History Tobacco Use Smoking status: Never Smokeless tobacco: Never Substance Use Topics Alcohol use: Never ALLERGIES: Patient has no known allergies. REVIEW OF SYSTEMS: General: Appetite change: denies. Chills: denies. Fever: denies. Allergy/Immunology: Unusual rection to medications, food, animals or insects reaction: denies. Ophthalmologic: Visual acuity change: denies. ENT: Decreased hearing: denies. Endocrine: Weight loss: denies. Respiratory: Cough: denies. Wheezing: denies. Cardiovascular: Chest pain: denies. Palpitations: denies. Gastrointestinal: Abdominal pain: denies. Difficulty swallowing: denies Hematology: Bleeding problems: denies. Genitourinary: Painful urination: denies. Musculoskeletal: Joint pain: denies. Joint edema: denies. Skin: Rash: denies. Neurologic: Tremor: denies. Psychiatric: Suicidal thoughts: denies. Also see HPI for elements of ROS documented therein and for details of positive findings, which shall supersede the foregoing. OBJECTIVE: Objective Vitals: 11/25/24 1312 BP: 149/84 Pulse: 60 Weight: 75.8 kg (167 lb) Height: 1.6 m (5' 3) Body mass index is 29.58 kg/m . EXAMINATION: General Exam: pleasant, well nourished, well developed, in no acute distress Head: normocephalic, atraumatic Eyes: extraocular movement intact (EOMI), pupils equal, round, reactive to light, upper eyelids normal , lower eyelids normal Ears: no obvious hearing deficit Nose: Nares patent Neck/Throat: neck supple, full range of motion Oral Cavity: mucosa moist Skin: warm and dry Heart: no murmurs, regular rate and rhythm, S1, S2 normal Lungs: clear to auscultation bilaterally, good air movement, no wheezes, rales, rhonci, speaks in full sentences Chest: normal shape and expansion Abdomen: bowel sounds present, soft, nontender, nondistended, no guarding or rigidity Extremities: no edema, no cyanosis Musculoskeletal: no swelling or deformity Neurologic: nonfocal, alert and oriented self, spouse, city/state, unaware of month/year or president , cognitive exam grossly normal, cranial nerves 2-12 grossly intact, motor strength 5/5 bilateralsymmetrically, no drift, coordination intact, sensory exam intact, gait normal Psych: pleasant, cooperative, good eye contact, speech clear ASSESSMENT/PLAN: 1. TOBY (obstructive sleep apnea) (Primary) Continue auto-pap 5-20 cmH2O Wear nightly, previously good compliance - requested compliance fresh-aire 2. PLMD periodic limb movement disorder) Stable, continue ropinirole 0.5 mg at bedtime 3. Dementia without behavioral disturbance (Multi) Stable, Continue namenda 10 mg bid, aricept 10 mg at bedtime Brain exercises, increase activity/exercise 4. Hypersomnia Defers treatment, past tx: modafinil, wears pap nightly I personally spent 65 minutes today, exclusive of procedures, providing care for this patient, including preparation, face to face time, documentation and other services such as review of medical records, diagnostic result, patient education, counseling, coordination of care as specified in the encounter. Follow up in 6 months Libertad Whittaker APRN-FELICITAS [1] Current Outpatient Medications on File Prior to Visit Medication Sig Dispense Refill acetaminophen (Tylenol) 325 mg tablet Take by mouth. ascorbic acid (Vitamin C) 500 mg chewable tablet Chew 1 tablet (500 mg) once daily. aspirin 81 mg tablet Take by mouth. atorvastatin (Lipitor) 80 mg tablet Take 1 tablet (80 mg) by mouth once daily. cholecalciferol (Vitamin D-3) 25 mcg (1,000 units) capsule Take 1 capsule (1,000 Units) by mouth. vwab-tfdmn-LKJ-czs-mmsonup-gau 100 mg-100 mcg- 100 mg-100 mg capsule once every 24 hours. clopidogrel (Plavix) 75 mg tablet Take 1 tablet (75 mg) by mouth once daily. Creon 36,000-114,000- 180,000 unit capsule,delayed release(DR/EC) capsule TAKE 3 CAPSULES BY MOUTH BEFORE EACH MEAL & 1 CAPSULE WITH SNACKS. MAX 10 CAPSULES PER DAY. donepezil (Aricept) 10 mg tablet Take 1 tablet (10 mg) by mouth. glimepiride (Amaryl) 2 mg tablet Take 1 tablet (2 mg) by mouth once daily. glipiZIDE (Glucotrol) 5 mg tablet TAKE 1/2 TO 1 (ONE-HALF TO ONE) TABLET BY MOUTH TWICE DAILY DIRECTED memantine (Namenda) 10 mg tablet Take 1 tablet (10 mg) by mouth 2 times a day. metFORMIN (Glucophage) 500 mg tablet Take 1 tablet (500 mg) by mouth once daily. omeprazole (PriLOSEC) [address] capsule once every 24 hours. ramipril (Altace) 5 mg capsule Take 1 capsule (5 mg) by mouth once daily. rOPINIRole (Requip) 0.5 mg tablet 1 tab(s) orally once a day(HS ) No current facility-administered medications on file prior to visit. [2] Past Medical History: Diagnosis Date Dementia Diabetes (Multi) Hypersomnia Neuropathy TOBY (obstructive sleep apnea) PLMD (periodic limb movement disorder) Stroke (Multi) 12/2017 left thalamic stroke Stroke (Multi) 09/16/2022 [3] History reviewed. No pertinent surgical history. [4] Family History Problem Relation Name Age of Onset Diabetes Mother Heart disease Father Lung cancer Sister Alzheimer's disease Brother Stroke Brother Alcohol abuse [facility]: 1(723) 954-717005-13-2025 Instructions* Patient Instructions* JOSSY Abrams - 11/25/2024 1:00 PM EDT Continue to wear pap therapy every night Increase activity/exercise daily Follow [facility] in 6 [facility] Work [facility]: 1(218) 806-166511-23-2023 Discharge summary Author Nikki Jacques [facility] June 08, 2023 12:30am Note Date/Time June 07, 2023 11:19pm [facility] Medical Records Department [address] [place] [address] Emergency Department Summary 06/07/23 MR#: [id number] Acct: [id number] Name: LIZA VELASQUEZ Rep #:[id number] : 1935 88 From: Nikki Jacques MD PCP: Dr. Clinton Fowler, DO Status:REG ER Location: ED HPI History of Present Illness Chief Complaint: General Illness Informant: patient and spouse/S.O. Narrative Narrative: Patient presents via EMS with her . He states that she woke from sleep stating that she needed to go to the emergency room. He states she was implyingthat there was something wrong with her chest but was not holding or gripping her chest. Patient has Alzheimer's and cannot provide any history. Patient's blood sugar was 330 for EMS and states that is very high. He can only check it once a day and typically checks it first thing in the morning when she has been fasting. It is usually around 100 at that time. He does state that hegave her hot chocolate before bed. [facility] Medical History Alzheimer disease AMS (altered mental status) Anemia due to stage 3 chronic kidney disease Arthritis Bowel incontinence Chronic diarrhea CPAP (continuous positive airway pressure) dependence CVA (cerebral vascular accident) Dementia DM (diabetes mellitus), type 2 Exocrine pancreatic insufficiency Falls GERD (gastroesophageal reflux disease) GI bleed Hearing loss, left Hearing loss, right History of Sjogren's disease History of stroke Loose stools Mental status alteration Nausea and vomiting in adult Non-smoker Noninfective gastroenteritis and colitis, unspecified RLS (restless legs syndrome) TIA (transient ischemic attack) Type 2 diabetes mellitus without complications Varicose veins of leg with edema Home Medications omeprazole 40 mg capsule,delayed release 40 mg PO DAILY GERD 01/06/14 [History Last Taken 01/11/23] cholecalciferol (vitamin D3) 25 mcg (1,000 unit) capsule 1,000 unit PO DAILY supplement 08/28/16 [History Last Taken 01/11/23] donepezil 5 mg tablet 10 mg PO QHS memory 08/28/16 [History Last Taken 01/11/23] metformin 500 mg tablet 500 mg PO DAILY blood sugar 08/28/16 [History Last Taken 01/11/23] cinnamon bark 500 mg capsule 1,000 mg PO DAILY supplement 11/30/17 [History Last Taken 01/11/23] atorvastatin 80 mg tablet 80 mg PO QHS cholesterol #30 tabs 12/03/17 [Rx Last Taken 01/11/23] iztmrxdj-dyb-neqxp acid 0.4 mg-lycopene 300 mcg-lutein 250 mcg tablet 1 ea PO BID supplement 12/03/18 [History Last Taken 01/11/23] memantine 10 mg tablet 10 mg PO BID mental health 09/11/21 [History Last Taken 01/11/23] ramipril 5 mg capsule 5 mg PO DAILY blood pressure 01/11/22 [History Last Taken 01/11/23] ropinirole 0.25 mg tablet 0.5 mg PO QHS restless legs 01/11/22 [History Last Taken 01/11/23] modafinil 100 mg tablet 200 mg PO DAILY sleepiness 09/16/22 [History Last Taken 01/11/23] aspirin 81 mg chewable tablet 81 mg PO BREAKFAST #30 tabs 09/20/22 [Rx Last Taken 01/11/23] ayydaq-jyyoxuqj-ofbfgql 36,000-114,000-180,000 unit capsule,delay rel (Creon) See Rx Instructions PO .COMPLEX supplement #320 caps 10/13/22 [Rx Last Taken 01/12/23] glipizide 5 mg tablet 2.5 mg PO BID DM 01/12/23 [History Last Taken 01/11/23] amoxicillin 500 mg-potassium clavulanate 125 mg tablet (Augmentin) 1 tab PO BID 7 days #14 tabs 06/03/23 [Rx Last Taken Unknown] acetaminophen 500 mg tablet (Tylenol Extra Strength) 500 mg PO Q4H PRN fever or pain 06/07/23 [History Last Taken Unknown] Allergy/AdvReac Type Severity Reaction Status Date / Time pollen extracts Allergy Intermediate PT UNSURE Verified 06/07/23 22:34 OF REACTION Family History Mother Alzheimer disease Brother Alzheimer disease Aunt Alzheimer disease Father Heart disease Surgical History H/O lumpectomy H/O: hysterectomy History of tonsillectomy Social History household members: spouse Smoking Status: Never smoker alcohol intake: never substance use type: does not use ROS ROS ED ROS Narrative Patient unable to provide review of systems secondary to her Alzheimer's dementia. states she has not had any recent cough or vomiting. She haschronic diarrhea. EXAM Physical Exam Const Vital Signs: 06/07/23 22:34 06/07/23 22:47 Temperature 97.6 F L Temperature Source Oral Pulse Rate 77 Respiratory Rate 16 Respiratory Effort Normal Respiratory Pattern Normal Blood Pressure 124/87 H Blood Pressure Mean 99 Pulse Ox 99 Oxygen Delivery Method Room Air Positive well nourished and well developed General Appearance ED: well developed HEENT Reports moist mucous membranes Chest Wall inspection of chest normal and palpation of chest normal Resp normal respiratory effort and clear to auscultation bilaterally Cardio regular rate and regular rhythm GI non-tender Auscultation: normoactive bowel sounds Palpation: soft Extremity normal to inspection Neuro Neuro Narrative: Moves all 4 extremities. Skin no rashes or lesions noted MDM MDM MDM Narrative Medical decision making narrative: Patient placed on environmental monitoring technician. IV line initiated. Labwork obtained to evaluate for leukocytosis, anemia, and electrolyte derangement. EKG obtained toevaluate for cardiac arrhythmia/ischemia. Chest x-ray obtained to evaluate for acute lung pathology, cardiac size, or mediastinal abnormality. History & Record Review Discussion w/independent historian: Significant other Lab Data Attestation: I reviewed the patient's lab results. Labs: Laboratory Results - last 24 hr 06/07/23 23:46 WBC 6.4 RBC 3.26 L Hgb 9.6 L Hct 29.5 L MCV 90.5 MCH 29.4 MCHC 32.5 RDW Std Deviation 44.2 H RDW Coeff of Marcio 13.2 Plt Count 77 L MPV 12.1 H Immature Gran % (Auto) 0.300 Neut % (Auto) 43.4 L Lymph % (Auto) 39.9 [place] % (Auto) 10.5 H Eos % (Auto) 4.8 Baso % (Auto) 1.1 H Absolute Neuts (auto) 2.8 Absolute Lymphs (auto) 2.56 Nucleated RBC % 0 Sodium 134 L Potassium 4.1 Chloride 102 Carbon Dioxide 27.0 Anion Gap 5 BUN 17 Creatinine 1.08 H Estim Creat Clear Calc 30.36 Est GFR (MDRD) Af Amer 62 Est GFR (MDRD) Non-Af 51 L BUN/Creatinine Ratio 15.7 Glucose 287 H Calcium 8.1 L Troponin I High Sens 9 Radiography Chest X-Ray - ED: 1 View, Read by ED Physician, Chronic Changes and No Infiltrates EKG Initial EKG: Attestation: I personally reviewed and interpreted this EKG as follows: Interpretation: Sinus Rhythm (Sinus rhythm at 74 bpm. No acute ischemia.) Treatment and Re-Evaluation :: BC was normal white count 6.4 with a hemoglobin 9.6. Differential is unremarkable. Chemistry studies are normal. Her glucose is elevated at 287. Troponin is normal at 9. Portable chest x-ray per my interpretation reveals chronic changes with no evidence of focal infiltrate. EKG is sinus rhythm with no evidence of ischemia. Test results are discussed with the patient's at bedside. He is reassured with the findings here. We have given her some IV fluids to help with her hyperglycemia. I did discuss with him that would ratherlet her blood sugar run a little high overnight then risk dropping her too low. He voices understanding and agreement. He will closely monitor her and they were encouraged to return for any concerns. Discharge Plan Triage Chief Complaint: General Illness ED Provider: Nikki Jacques Dx/Rx/DC Orders Clinical Impression: Agitation due to dementia, Hyperglycemia Instructions: ED Diabetic Hyperglycemia, ED CAREGIVER SUPPORT for DEMENTIA Prescriptions: No Action ramipril 5 mg capsule 5 mg PO DAILY ropinirole 0.25 mg tablet 0.5 mg PO QHS Hold Instructions: unsure if she still takes Rx Instructions: administer 1-3 hours before bedtime amoxicillin-pot clavulanate [Augmentin] 500-125 mg tablet 1 tab PO BID 7 Days Qty: 14 0RF Hold Instructions: only take if needed omeprazole 40 MG capsule 40 mg PO DAILY Patient Comments: STOMACH metformin 500 MG tablet 500 mg PO DAILY donepezil 5 MG tablet 10 mg PO QHS cholecalciferol (vitamin D3) 1,000 UNIT capsule 1,000 unit PO DAILY cinnamon bark 500 MG capsule 1,000 mg PO DAILY atorvastatin 80 MG tablet 80 mg PO QHS Qty: 30 0RF phtuwckk-shf-UN-lycopen-lutein 1 EACH tablet 1 ea PO BID memantine 10 mg tablet 10 mg PO BID Patient Comments: TAKE 1 TABLET BY MOUTH TWICE DAILY modafinil 100 mg Tablet 200 mg PO DAILY aspirin 81 mg Tablet,Chewable 81 mg PO BREAKFAST Qty: 30 1RF Hold Instructions: Resume on 01/18/23. glipizide 5 mg tablet 2.5 mg PO BID Patient Comments: TAKE 1/2 (ONE-HALF) TO 1 (ONE) TABLET BY MOUTH TWICE DAILY DIRECTED Rx Instructions: 2.5MG TO 5MG BID UD acetaminophen [Tylenol Extra Strength] 500 mg tablet 500 mg PO Q4H PRN (Reason: fever or pain) Creon 36,000-114,000- 180,000 unit capsule,delayed release(/EC) See Rx Instructions PO .COMPLEX Qty: 320 11RF Rx Instructions: take 1-2 with snacks and 2-3 with meals Primary Care Provider: Clinton Fowler Referrals: Clinton Fowler DO [Primary Care Provider] - As Needed Disposition Disposition: Home, Self Care What to do if you have Problems For any increased pain, shortness of breath, bleeding, nausea or vomiting, chestpain, or any unexpected problems, contact your Primary Care Provider. Call [facility] ([phone]) or report to the closest Emergency Room. Call 911 if necessary. 06/08/23 0030 <Electronically signed by Nikki Jacques MD> Cosigner Signature (if applicable): CC: Dr. Clinton Fowler DO ~ Signed [facility] Work Phone: 1(727) 140-248207-02-2023 Progress note Author Sixto Braswell [facility] January 14, 2023 1:35pm Note Date/Time January 14, 2023 9:08a m [facility] Medical Records Department [address] [place] [address] Progress Note - Hospitalist 01/14/23905 MR#: [id number] Acct: [id number] Name: LIZA VELASQUEZ Rep #:[id number] : 1935 87 From: Sixto Braswell DO PCP: Dr. Clinton Janeth, DO Status:ADM IN Location: [facility] [id number] Reason for Visit Reason for Visit: Diagnoses Acute posthemorrhagic anemia (01/12/23) Diverticulosis of intestine, part unspecified, without perforation or abscess with bleeding (01/12/23) Disorientation, unspecified (01/12/23) Subjective Subjective No further bleeding since yesterday. Objective Data Objective Data Vital Signs: Vital Signs Temp Pulse Resp BP Pulse Ox O2 Del Method 37.0 C 72 18 136/62 H 94 Room Air 01/14/23 02:00 01/14/23 02:00 01/14/23 02:00 01/14/23 02:00 01/14/23 02:00 01/14/23 05:15 Oxygen Delivery Method Room Air Weight: 73.5 kg Body Mass Index (BMI) 23.2 Intake & Output: Intake and Output for Last 24 Hours 01/12/23 01/13/23 01/14/23 23:59 23:59 23:59 Intake Total 1850.0 / 1850.0 4945 / 4945 1000 / 1000 Balance 1850.0 / 1850.0 4945 / 4945 1000 / 1000 Medical Nutrition Assessment Dietitian: Malnutrition Criteria Met Start: 01/13/23 15:15 Freq: Status: Active Protocol: Document 01/13/23 15:16 TIRSO (Rec: 01/13/23 15:16 TIRSO [id number]) Nutrition Malnutrition Evidence of Malnutrition Exists Yes Malnutrition (severe): Chronic Evidenced By Weight Loss (Severe),Physical Changes (Moderate),Physical Changes (Severe) Clinical Problem Chronic Disease or Condition Related Malnutrition Etiology related to physiological changes increasing nutrient needs and/or limiting oral intakes Signs/Symptoms as evidenced by significant unintentional weight loss of 12.9% in ~4 months and moderate to severe fat and muscle wasting per NFPA findings. Status Active Problem Recommendation Dietitian Recommendations/Changes Recommend Ensure Clear Apple 3x/day with meals to help increase oral intakes and limit further weight loss while on Clear Liquids. Recommend diet advancement when appropriate to Transitional. Will continue following the pt and monitoring oral intakes. Lab / Micro Data 01/14/23 12:04 01/14/23 05:30 Labs: Laboratory Results - last 24 hr 01/13/23 11:46: Hgb 8.3 L, Hct 26.0 L 01/13/23 17:45: Hgb 9.1 L, Hct 27.3 L 01/14/23 05:30: WBC 7.5, RBC 2.89 L, Hgb 9.0 L, Hct 26.9 L, MCV 93.1, MCH 31.1, MCHC 33.5, RDW Std Deviation 44.9 H, RDW Coeff of Marcio 13.2, Plt Count 197, MPV 10.2, Immature Gran % (Auto) 0.400, Neut % (Auto) 54.5, Lymph % (Auto) 31.1, [place] % (Auto) 9.1, Eos % (Auto) 3.6, Baso % (Auto) 1.3 H, Absolute Neuts (auto) 4.1, Absolute Lymphs (auto) 2.33, Nucleated RBC % 0, Sodium 143, Potassium 3.8, Chloride 114 H, Carbon Dioxide 25.0, Anion Gap 4 L, BUN 16, Creatinine 0.88, Estim Creat Clear Calc 49.62, Est GFR (MDRD) Af Amer 78, Est GFR (MDRD) Non-Af 64, BUN/Creatinine Ratio 18.1, Glucose 109 H, Calcium 8.6 Micro: Microbiology 01/12/23 15:04 Stool Stool Lactoferrin - Final 01/12/23 15:04 Stool Enteric Bacteriology - Final 01/12/23 15:04 Stool C. difficile DNA Amplification - Final 01/12/23 12:22 Stool Stool Occult Blood (JIMI) - Final Occult Blood Positive Physical Exam Const alert and no apparent distress Constitutional Narrative: up in chair. HEENT head/scalp atraumatic Resp normal respiratory effort, no retractions, no use of accessory muscles and clearto auscultation bilaterally Cardio regular rate, regular rhythm, S1 normal heart sound and S2 normal heart sound GI normal to inspection, nondistended, normoactive bowel sounds, soft to palpation,non-tender and non-distended Assessment & Plan Assessment/Plan (1) GI bleed: QUALIFIERS: GI bleed type/associated pathology: diverticulosis Qualified Code(s): K57.91 - Diverticulosis of intestine, part unspecified, without perforation or abscess with bleeding PLAN: Resolved Suspected due to diverticular bleed. CAT scan showed sigmoid diverticulosis. Hold aspirin and clopidogrel for now. Clear liquid diet Seen by GI, recommending to hold antiplatelets for now. No intervention at this time. (2) Delirium: PLAN: Hypoactive This is in a patient with ongoing dementia and has had history of stroke. Nothing focal to suggest stroke at this time. Head CT has been ordered (3) Acute blood loss anemia: PLAN: Hg went from 10.1 to 8.5 (had been 11.3 in September) Today, it is 9. Monitor No indication for TF at this time. 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 No acute concerns. I reviewed neuro consult from 09/18/22. The neurologist did not feel the CVA identified was causing her neurological symptoms at that time, but more likely progression of dementia. She had been on clopidogrel at that time. Aspirin was later added. Given the severe GI bleed, advanced dementia, the risk of dual antiplatelet therapy outweigh the risks. Will resume ASA in 72 hours (96 hours after last bleed). No additional clopidogrel. PLAN: Plan Chronic conditions * Dementia: Hold memantine as well as donezepil for now given the delirium. * Sjogren's VTE prophylaxis with SCDs. Chemical prophylaxis contraindicated in light of GI bleed. CODE STATUS: Addressed with the patient's , who is her power of criminal attorney,patient is to be DNR Comfort Care arrest. Discharge home. Charges/Coding Visit Charges Inpatient E&M: 60523 Subs Hosp L2 01/14/23 1335 <Electronically signed by Sixto Braswell DO> Cosigner Signature (if applicable): CC: ~ Signed [facility] Work Phone: 1(776) 311-791907-01-2023 Progress note Author Hung Friend [facility] January 13, 2023 8:16pm Note Date/Time January 13, 2023 8:15p m [facility] Medical Records Department [address] [place] [address] Progress Note - GI 01/13/232013 MR#: [id number] Acct: [id number] Name: LIZA VELASQUEZ Rep #:[id number] : 1935 87 From: Hung Friend DO PCP: Dr. Clinton Fowler, DO Status:ADM IN [id number] Subjective Subjective Patient had another large bowel movement today. There was some blood in the bowel movement. She is not able to give history due to dementia. Therefore allhistory is obtained from nursing. Objective Data Objective Data Vital Signs: Vital Signs Temp Pulse Resp BP Pulse Ox O2 Del Method 98.3 F 75 18 142/56 H 94 Room Air 01/13/23 20:00 01/13/23 20:00 01/13/23 20:00 01/13/23 20:00 01/13/23 20:00 01/13/23 20:00 Oxygen Delivery Method Room Air Weight: 162 lb 0.636 oz Body Mass Index (BMI) 23.2 Intake & Output: Intake and Output for Last 24 Hours 01/11/23 01/12/23 01/13/23 23:59 23:59 23:59 Intake Total 1850.0 / 1850.0 3825 / 3825 Balance 1850.0 / 1850.0 3825 / 3825 Medical Nutrition Assessment Dietitian: Malnutrition Criteria Met Start: 01/13/23 15:15 Freq: Status: Active Protocol: Document 01/13/23 15:16 TIRSO (Rec: 01/13/23 15:16 [id number]) Nutrition Malnutrition Evidence of Malnutrition Exists Yes Malnutrition (severe): Chronic Evidenced By Weight Loss (Severe),Physical Changes (Moderate),Physical Changes (Severe) Clinical Problem Chronic Disease or Condition Related Malnutrition Etiology related to physiological changes increasing nutrient needs and/or limiting oral intakes Signs/Symptoms as evidenced by significant unintentional weight loss of 12.9% in ~4 months and moderate to severe fat and muscle wasting per NFPA findings. Status Active Problem Recommendation Dietitian Recommendations/Changes Recommend Ensure Clear Apple 3x/day with meals to help increase oral intakes and limit further weight loss while on Clear Liquids. Recommend diet advancement when appropriate to Transitional. Will continue following the pt and monitoring oral intakes. Lab / Micro Data 01/13/23 17:45 01/13/23 06:18 Labs: Laboratory Results - last 24 hr 01/13/23 06:18: WBC 6.9, RBC 2.79 L, Hgb 8.5 L, Hct 26.5 L, MCV 95.0, MCH 30.5, MCHC 32.1, RDW Std Deviation 46.0 H, RDW Coeff of Marcio 13.2, Plt Count 191, MPV 10.6, Immature Gran % (Auto) 0.600, Neut % (Auto) 47.8, Lymph % (Auto) 36.7, [place] % (Auto) 10.2 H, Eos % (Auto) 3.4, Baso % (Auto) 1.3 H, Absolute Neuts (auto) 3.3, Absolute Lymphs (auto) 2.52, Nucleated RBC % 0.3, Sodium 138, Potassium 4.1, Chloride 109 H, Carbon Dioxide 26.0, Anion Gap 3 L, BUN 31 H, Creatinine 0.95, Estim Creat Clear Calc 45.97, Est GFR (MDRD) Af Amer 71, Est GFR (MDRD) Non-Af 59 L, BUN/Creatinine Ratio 32.6 H, Glucose 106, Calcium 8.7 01/13/23 11:46: Hgb 8.3 L, Hct 26.0 L 01/13/23 17:45: Hgb 9.1 L, Hct 27.3 L Micro: Microbiology 01/12/23 15:04 Stool Stool Lactoferrin - Final 01/12/23 15:04 Stool Enteric Bacteriology - Final 01/12/23 15:04 Stool C. difficile DNA Amplification - Final 01/12/23 12:22 Stool Stool Occult Blood (JIMI) - Final Occult Blood Positive Physical Exam Const Constitutional Narrative: confused. Cardio regular rate, regular rhythm, S1 normal heart sound and S2 normal heart sound GI normal to inspection, nondistended, normoactive bowel sounds GI Narrative: had gelatinous bloody stool, large amount. Assessment & Plan Assessment/Plan (1) GI bleed: QUALIFIERS: GI bleed type/associated pathology: diverticulosis Qualified Code(s): K57.91 - Diverticulosis of intestine, part unspecified, without perforation or abscess with bleeding PLAN: Differential diagnosis for lower GI bleed does include hemorrhoidal bleeding, diverticular bleed, angiodysplasia, less likely neoplasia. CT scan did not show any signs of active bleeding. Recommend to follow H&H. Due to hermultiple comorbidities recommend to just hold antiplatelet therapy, no anticoagulation and hopefully she will not have any more bleeding off of blood thinners. 01/13: Her hemoglobin went down to 8.3 but is up to 9.1. If she continues to bleed tomorrow then we will repeat her CT angiography. She may need a colonoscopy if she continues to bleed. Charges/Coding Visit Charges Inpatient E&M: 03465 Subs Hosp L3 01/13/232015 <Electronically signed by Hung Friend > Cosigner Signature (if applicable): CC: ~ Signed [facility] Work Phone: 1(480) 471-355007-01-2023 Progress note Author Sixto rBaswell [facility] January 13, 2023 11:08am Note Date/Time January 13, 2023 8:25a m [facility] Medical Records Department [address] [place] [address] Progress Note - Hospitalist 01/13/23820 MR#: [id number] Acct: [id number] Name: LIZA VELASQUEZ Rep #:[id number] : 1935 87 From: Sixto Braswell DO PCP: Dr. Clinton Fowler DO Status:ADM IN Location: [place] [id number]- [id number] Reason for Visit Reason for Visit: Diagnoses Diverticulosis of intestine, part unspecified, without perforation or abscess with bleeding (01/12/23) Disorientation, unspecified (01/12/23) Subjective Subjective Still confused. Objective Data Objective Data Vital Signs: Vital Signs Temp Pulse Resp BP Pulse Ox O2 Del Method 36.6 C 92 15 130/69 H 98 Room Air 01/13/23 08:10 01/13/23 08:10 01/13/23 08:10 01/13/23 08:10 01/13/23 08:10 01/13/23 08:10 Oxygen Delivery Method Room Air Weight: 73.5 kg Body Mass Index (BMI) 23.2 Intake & Output: Intake and Output for Last 24 Hours 01/11/23 01/12/23 01/13/23 23:59 23:59 23:59 Intake Total 1850.0 / 1850.0 525 / 525 Balance 1850.0 / 1850.0 525 / 525 Lab / Micro Data 01/13/23 06:18 01/13/23 06:18 Labs: Laboratory Results - last 24 hr 01/12/23 12:00: WBC 7.9, RBC 3.34 L, Hgb 10.1 L, Hct 32.0 L, MCV 95.8, MCH 30.2,MCHC 31.6 L, RDW Std Deviation 47.6 H, RDW Coeff of Marcio 13.4, Plt Count 225, MPV11.0, Immature Gran % (Auto) 0.800, Neut % (Auto) 61.7, Lymph % (Auto) 27.4, [place] % (Auto) 7.1, Eos % (Auto) 2.0, Baso % (Auto) 1.0, Absolute Neuts (auto) 4.9, Absolute Lymphs (auto) 2.16, Nucleated RBC % 0, PT Cancelled, INR Cancelled, APTT Cancelled, Sodium 135 L, Potassium 4.8, Chloride 103, Carbon Dioxide 30.0, Anion Gap 2 L, BUN 34 H, Creatinine 1.14 H, Estim Creat Clear Calc38.31, Est GFR (MDRD) Af Amer 58 L, Est GFR (MDRD) Non-Af 48 L, BUN/Creatinine Ratio 29.8 H, Glucose 125 H, Calcium 9.1, Total Bilirubin 0.40, AST 30, ALT 26, Alkaline Phosphatase 94, Total Protein 5.9 L, Albumin 2.7 L, Globulin 3.2, Albumin/Globulin Ratio 0.8 L, Blood Type AB POSITIVE, Antibody Screen NEGATIVE 01/12/23 12:45: Urine Color Yellow, Urine Clarity Clear, Urine pH 5.0, Ur Specific [place] 1.015, Urine Protein Negative, Urine Glucose (UA) Normal, UrineKetones Negative, Urine Occult Blood Negative, Urine Nitrite Negative, Urine Bilirubin 1 H, Urine Urobilinogen Normal, Ur Leukocyte Esterase 25 H, Urine RBC 0 SEEN, Urine WBC 0-5 SEEN, Ur Squamous Epith Cells 0 SEEN, Urine Bacteria 0 SEEN, Urine Mucus 0 SEEN 01/12/23 13:57: PT 14.6, INR 1.1, APTT 29.4 01/13/23 06:18: WBC 6.9, RBC 2.79 L, Hgb 8.5 L, Hct 26.5 L, MCV 95.0, MCH 30.5, MCHC 32.1, RDW Std Deviation 46.0 H, RDW Coeff of Marcio 13.2, Plt Count 191, MPV 10.6, Immature Gran % (Auto) 0.600, Neut % (Auto) 47.8, Lymph % (Auto) 36.7, [place] % (Auto) 10.2 H, Eos % (Auto) 3.4, Baso % (Auto) 1.3 H, Absolute Neuts (auto) 3.3, Absolute Lymphs (auto) 2.52, Nucleated RBC % 0.3, Sodium 138, Potassium 4.1, Chloride 109 H, Carbon Dioxide 26.0, Anion Gap 3 L, BUN 31 H, Creatinine 0.95, Estim Creat Clear Calc 45.97, Est GFR (MDRD) Af Amer 71, Est GFR (MDRD) Non-Af 59 L, BUN/Creatinine Ratio 32.6 H, Glucose 106, Calcium 8.7 Micro: Microbiology 01/12/23 12:22 Stool Stool Occult Blood (JIMI) - Final Occult Blood Positive Radiography Diagnostic Testing: Radiology Impression Abdomen/Pelvis CT 01/12/23 12:23 IMPRESSION: Sigmoid diverticulosis. Calcified fibroid uterus. Electronically Signed: Alex Lobato MD at 15:08 EDT , Brain CT 01/12/23 12:53 IMPRESSION: Chronic involutional changes of the brain. Electronically Signed: Alex Lobato MD at 15:09 EDT , Physical Exam Const Constitutional Narrative: confused. more alert today, able to cite her name. Cardio regular rate, regular rhythm, S1 normal heart sound and S2 normal heart sound GI normal to inspection, nondistended, normoactive bowel sounds GI Narrative: had gelatinous bloody stool, large amount. Assessment & Plan Assessment/Plan (1) GI bleed: QUALIFIERS: GI bleed type/associated pathology: diverticulosis Qualified Code(s): K57.91 - Diverticulosis of intestine, part unspecified, without perforation or abscess with bleeding PLAN: Suspected due to diverticular bleed. CAT scan showed sigmoid diverticulosis. Hold aspirin and clopidogrel for now. Clear liquid diet Seen by GI, recommending to hold antiplatelets for now. No intervention at this time. (2) Delirium: PLAN: Hypoactive This is in a patient with ongoing dementia and has had history of stroke. Nothing focal to suggest stroke at this time. Head CT has been ordered (3) Acute blood loss anemia: PLAN: Hg went from 10.1 to 8.5 (had been 11.3 in September) Monitor No indication for TF at this time. PLAN: Plan Chronic conditions * Dementia: Hold memantine as well as donezepil for now given the delirium. * Stroke: Hold aspirin and clopidogrel for now. * Sjogren's VTE prophylaxis with SCDs. Chemical prophylaxis contraindicated in light of GI bleed. CODE STATUS: Addressed with the patient's , who is her power of criminal attorney,patient is to be DNR Comfort Care arrest. Charges/Coding Visit Charges Inpatient E&M: 04751 Subs Hosp L2 01/13/23 1108 <Electronically signed by Sixto Braswell DO> Cosigner Signature (if applicable): CC: ~ Signed [facility] Work Phone: 1(323) 399-409906-30-2023 Consult note Author Hung Adames [facility] January 12, 2023 5:52pm Note Date/Time January 12, 2023 5:49 pm [facility] Medical Records Department [address] [place] [address] Consultation - GI 01/12/23 1749 MR#: [id number] Acct: [id number] Name: LIZA VELASQUEZ Rep #:[id number] : 1935 87 From: Hung Adames DO PCP: Dr. Clinton Fowler DO Status:ADM IN Location: [facility] [id number]- 1 HPI Consult Data Date of Consult: 01/12/23 HPI Narrative Reason for Consultation: GI bleed HPI Narrative: LIZA VELASQUEZ, is a 87 F who presents via EMS with lower GI bleeding. Her history limited from patient due to Alzheimer's history. At her baseline she isoriented to person. Here with spouse coming from home by EMS due to large amount of blood from the rectum dark in color. Per spouse patient mildly weaker since yesterday today intermittent she came outof the bedroom sat in the chair noted blood on the chair he put her on the commode there was a large amount of dark blood. She is on aspirin and Plavix for stroke in September. Patient has not had a recent colonoscopy in years per spouse. Patient can ambulate at times without assistance but does have a cane and walker. Patient has not been transfused in the past. 87 year old woman was admitted with a six month history of severe watery brown diarrhoea. 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 She has had multiple antibiotics in the recent past. She had not travelled recently or changed her diet, but she had lost 10 lbs in weight. She had a history of diverticulosis, recurrent urinary tract infections, and hypertension but no family history of cancer. She ia a non-smoker who lives with her . [facility] Medical History (Updated 01/12/23 @ 16:15 by Evelyn Díaz) Alzheimer disease AMS (altered mental status) Anemia due to stage 3 chronic kidney disease Arthritis Bowel incontinence Chronic diarrhea CPAP (continuous positive airway pressure) dependence CVA (cerebral vascular accident) Dementia Diabetes DM (diabetes mellitus), type 2 Falls GERD (gastroesophageal reflux disease) GERD (gastroesophageal reflux disease) Hearing loss, left Hearing loss, right History of Sjogren's disease History of stroke Loose stools Mental status alteration Nausea and vomiting in adult Non-smoker Noninfective gastroenteritis and colitis, unspecified RLS (restless legs syndrome) TIA (transient ischemic attack) Type 2 diabetes mellitus without complications Varicose veins of leg with edema Home Medications omeprazole 40 mg capsule,delayed release 40 mg PO DAILY GERD 01/06/14 [History Last Taken 01/11/23] cholecalciferol (vitamin D3) 25 mcg (1,000 unit) capsule 1,000 unit PO DAILY supplement 08/28/16 [History Last Taken 01/11/23] donepezil 5 mg tablet 10 mg PO QHS memory 08/28/16 [History Last Taken 01/11/23] metformin 500 mg tablet 500 mg PO DAILY blood sugar 08/28/16 [History Last Taken 01/11/23] cinnamon bark 500 mg capsule 1,000 mg PO DAILY supplement 11/30/17 [History Last Taken 01/11/23] atorvastatin 80 mg tablet 80 mg PO QHS #30 tabs 12/03/17 [Rx Last Taken 01/11/23] clopidogrel 75 mg tablet 75 mg PO DAILY #30 tabs 12/03/17 [Rx Last Taken 01/11/23] lrpjlung-vmn-fmqvl acid 0.4 mg-lycopene 300 mcg-lutein 250 mcg tablet 1 ea PO BID supplement 12/03/18 [History Last Taken 01/11/23] naproxen sodium 220 mg capsule 220 mg PO BID pain 12/03/18 [History Last Taken 01/11/23] Vitamin C 1 tab PO BID 06/08/19 [History Last Taken 01/11/23] memantine 10 mg tablet 10 mg PO BID Check with primary doctor 09/11/21 [History Last Taken 01/11/23] ramipril 5 mg capsule 5 mg PO DAILY Check with primary doctor 01/11/22 [History Last Taken 01/11/23] ropinirole 0.25 mg tablet 0.5 mg PO QHS Check with primary doctor 01/11/22 [History Last Taken 01/11/23] modafinil 100 mg tablet 200 mg PO DAILY Check with primary doctor 09/16/22 [History Last Taken 01/11/23] aspirin 81 mg chewable tablet 81 mg PO BREAKFAST #30 tabs 09/20/22 [Rx Last Taken 01/11/23] wxoxtp-pqyjurdu-awelwkk 36,000-114,000-180,000 unit capsule,delay rel (Creon) See Rx Instructions PO .COMPLEX #320 caps 10/13/22 [Rx Last Taken 01/12/23] glipizide 5 mg tablet 2.5 mg PO BID DM 01/12/23 [History Last Taken 01/11/23] Allergy/AdvReac Type Severity Reaction Status Date / Time pollen extracts Allergy Intermediate PT UNSURE Verified 01/12/23 14:46 OF REACTION Family History Mother Alzheimer disease Brother Alzheimer disease Aunt Alzheimer disease Father Heart disease Surgical History H/O lumpectomy H/O: hysterectomy History of tonsillectomy Social History household members: spouse Smoking Status: Never smoker alcohol intake: never substance use type: does not use ROS Review of Systems ROS Unobtainable: due to encephalopathy Physical Exam Const no apparent distress Constitutional Narrative: Awake. . HEENT normocephalic and head/scalp atraumatic Resp normal respiratory effort, no retractions, no use of accessory muscles and clearto auscultation bilaterally Cardio regular rate, regular rhythm, S1 normal heart sound and S2 normal heart sound GI normal to inspection, nondistended, normoactive bowel sounds, soft to palpation,non-tender and non-distended GI Narrative: Rectal exam showed no blood. Did have some nonthrombosed external hemorrhoids. Extremity normal to inspection Neuro moves all extremities Sensorium / Orientation: awake Psych affect normal Lab / Micro Data 01/12/23 12:00 01/12/23 12:00 Labs: Laboratory Results - last 24 hr 01/12/23 12:00: WBC 7.9, RBC 3.34 L, Hgb 10.1 L, Hct 32.0 L, MCV 95.8, MCH 30.2,MCHC 31.6 L, RDW Std Deviation 47.6 H, RDW Coeff of Marcio 13.4, Plt Count 225, MPV11.0, Immature Gran % (Auto) 0.800, Neut % (Auto) 61.7, Lymph % (Auto) 27.4, [place] % (Auto) 7.1, Eos % (Auto) 2.0, Baso % (Auto) 1.0, Absolute Neuts (auto) 4.9, Absolute Lymphs (auto) 2.16, Nucleated RBC % 0, PT Cancelled, INR Cancelled,APTT Cancelled, Sodium 135 L, Potassium 4.8, Chloride 103, Carbon Dioxide 30.0, Anion Gap 2 L, BUN 34 H, Creatinine 1.14 H, Estim Creat Clear Calc 38.31, Est GFR (MDRD) Af Amer 58 L, Est GFR (MDRD) Non-Af 48 L, BUN/Creatinine Ratio 29.8 H, Glucose 125 H, Calcium 9.1, Total Bilirubin 0.40, AST 30, ALT 26, Alkaline Phosphatase 94, Total Protein 5.9 L, Albumin 2.7 L, Globulin 3.2, Albumin/Globulin Ratio 0.8 L, Blood Type AB POSITIVE, Antibody Screen NEGATIVE 01/12/23 12:45: Urine Color Yellow, Urine Clarity Clear, Urine pH 5.0, Ur Specific [place] 1.015, Urine Protein Negative, Urine Glucose (UA) Normal, UrineKetones Negative, Urine Occult Blood Negative, Urine Nitrite Negative, Urine Bilirubin 1 H, Urine Urobilinogen Normal, Ur Leukocyte Esterase 25 H, Urine RBC 0 SEEN, Urine WBC 0-5 SEEN, Ur Squamous Epith Cells 0 SEEN, Urine Bacteria 0 SEEN, Urine Mucus 0 SEEN 01/12/23 13:57: PT 14.6, INR 1.1, APTT 29.4 Micro: Microbiology 01/12/23 12:22 Stool Stool Occult Blood (JIMI) - Final Occult Blood Positive Radiology Impression Abdomen/Pelvis CT 01/12/23 12:23 IMPRESSION: Sigmoid diverticulosis. Calcified fibroid uterus. Electronically Signed: Alex Lobato MD at 15:08 EDT , Brain CT 01/12/23 12:53 IMPRESSION: Chronic involutional changes of the brain. Electronically Signed: Alex Lobato MD at 15:09 EDT , Assessment & Plan Assessment/Plan (1) GI bleed: QUALIFIERS: GI bleed type/associated pathology: diverticulosis Qualified Code(s): K57.91 - Diverticulosis of intestine, part unspecified, without perforation or abscess with bleeding PLAN: Differential diagnosis for lower GI bleed does include hemorrhoidal bleeding, diverticular bleed, angiodysplasia, less likely neoplasia. CT scan did not show any signs of active bleeding. Recommend to follow H&H. Due to hermultiple comorbidities recommend to just hold antiplatelet therapy, no anticoagulation and hopefully she will not have any more bleeding off of blood thinners. Charges/Coding Visit Charges Inpatient E&M: 45853 Subs Hosp L2 01/12/23 7666 <Electronically signed by Hung Friend DO> Cosigner Signature (if applicable): CC: Dr. Clinton Fowler, DO~ Signed [facility] Work Phone: 1(446) 337-894306-30-2023 Discharge summary Author Isiah Winn [facility] January 12, 2023 4:48pm Note Date/Time January 12, 2023 12:2 8pm [facility] Medical Records Department [address] [place] [address] Emergency Department Summary 01/12/23 MR#: [id number] Acct: [id number] Name: LIZA VELASQUEZ Rep #:[id number] : 1935 87 From: Isiah Osuna PCP: Dr. Clinton Fowler DO Status:ADM IN Location: [place] [address] HPI HPI - GI History of Present Illness Chief Complaint: GI Bleed Informant: spouse/S.O. Narrative Narrative: History limited from patient due to Alzheimer's history. Baseline of person. Here with spouse coming from home by EMS due to large amount of blood from the rectum dark in color. Per spouse patient mildly weaker since yesterday today intermittent she came out of the bedroom sat in the chair noted blood on the chair he put her on the commode there was a large amount of dark blood. She is on aspirin and Plavix for stroke in September. 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 From records last seen a week ago. Patient has not had a recent colonoscopy in years per spouse. Patient can ambulate at times without assistance but does have a cane and walker. Patient has not been transfused in the past. [facility] Medical History (Updated 01/12/23 @ 16:15 by Evelyn Díaz) Alzheimer disease AMS (altered mental status) Anemia due to stage 3 chronic kidney disease Arthritis Bowel incontinence Chronic diarrhea CPAP (continuous positive airway pressure) dependence CVA (cerebral vascular accident) Dementia Diabetes DM (diabetes mellitus), type 2 Falls GERD (gastroesophageal reflux disease) GERD (gastroesophageal reflux disease) Hearing loss, left Hearing loss, right History of Sjogren's disease History of stroke Loose stools Mental status alteration Nausea and vomiting in adult Non-smoker Noninfective gastroenteritis and colitis, unspecified RLS (restless legs syndrome) TIA (transient ischemic attack) Type 2 diabetes mellitus without complications Varicose veins of leg with edema Home Medications omeprazole 40 mg capsule,delayed release 40 mg PO DAILY GERD 01/06/14 [History Last Taken 01/11/23] cholecalciferol (vitamin D3) 25 mcg (1,000 unit) capsule 1,000 unit PO DAILY supplement 08/28/16 [History Last Taken 01/11/23] donepezil 5 mg tablet 10 mg PO QHS memory 08/28/16 [History Last Taken 01/11/23] metformin 500 mg tablet 500 mg PO DAILY blood sugar 08/28/16 [History Last Taken 01/11/23] cinnamon bark 500 mg capsule 1,000 mg PO DAILY supplement 11/30/17 [History Last Taken 01/11/23] atorvastatin 80 mg tablet 80 mg PO QHS #30 tabs 12/03/17 [Rx Last Taken 01/11/23] clopidogrel 75 mg tablet 75 mg PO DAILY #30 tabs 12/03/17 [Rx Last Taken 01/11/23] kqquyyay-bmt-arbnp acid 0.4 mg-lycopene 300 mcg-lutein 250 mcg tablet 1 ea PO BID supplement 12/03/18 [History Last Taken 01/11/23] naproxen sodium 220 mg capsule 220 mg PO BID pain 12/03/18 [History Last Taken 01/11/23] Vitamin C 1 tab PO BID 06/08/19 [History Last Taken 01/11/23] memantine 10 mg tablet 10 mg PO BID Check with primary doctor 09/11/21 [History Last Taken 01/11/23] ramipril 5 mg capsule 5 mg PO DAILY Check with primary doctor 01/11/22 [History Last Taken 01/11/23] ropinirole 0.25 mg tablet 0.5 mg PO QHS Check with primary doctor 01/11/22 [History Last Taken 01/11/23] modafinil 100 mg tablet 200 mg PO DAILY Check with primary doctor 09/16/22 [History Last Taken 01/11/23] aspirin 81 mg chewable tablet 81 mg PO BREAKFAST #30 tabs 09/20/22 [Rx Last Taken 01/11/23] musixs-grhzrjlu-xxvztbw 36,000-114,000-180,000 unit capsule,delay rel (Creon) See Rx Instructions PO .COMPLEX #320 caps 10/13/22 [Rx Last Taken 01/12/23] glipizide 5 mg tablet 2.5 mg PO BID DM 01/12/23 [History Last Taken 01/11/23] Allergy/AdvReac Type Severity Reaction Status Date / Time pollen extracts Allergy Intermediate PT UNSURE Verified 01/12/23 14:46 OF REACTION Family History Mother Alzheimer disease Brother Alzheimer disease Aunt Alzheimer disease Father Heart disease Surgical History H/O lumpectomy H/O: hysterectomy History of tonsillectomy Social History household members: spouse Smoking Status: Never smoker alcohol intake: never substance use type: does not use ROS ROS ED ROS Narrative Limited history from spouse due to dementia. Review of Systems ROS Unobtainable: other Gastrointestinal Gastrointestinal: Reports other Details: Rectal bleeding EXAM Physical Exam Const Vital Signs: 01/12/23 11:50 01/12/23 11:53 Temperature 97.2 F L 97.2 F L Temperature Source Temporal Temporal Pulse Rate 72 72 Respiratory Rate 16 16 Blood Pressure 99/72 99/72 Blood Pressure Mean 81 81 Pulse Ox 94 94 Oxygen Delivery Method Room Air Room Air Positive well nourished Constitutional Narrative: Nontoxic General Appearance ED: NAD HEENT Reports moist mucous membranes normocephalic and atraumatic Eyes PERRL and EOMs intact bilaterally; Negative for conjunctivae normal General Eye ED: Yes normal appearance of both eyes and pale conjunctiva Neck no lymphadenopathy and supple General: Negative for tenderness Chest Wall Chest: Negative for tenderness Resp normal respiratory effort and normal air movement Effort and Inspection: symmetric chest movement; Negative for respiratory distress Cardio regular rate, regular rhythm and no murmurs Peripheral Pulses: pulses 2+ throughout GI normal to inspection, nondistended, normoactive bowel sounds and non-tender GI Narrative: Rectal exam nursing present nonthrombosed hemorrhoids on the right lateral aspect. There was blood running down both legs dry. Palpation: Negative for guarding or rebound tenderness present Back/Spine no CVA tenderness and no thoracic nor lumbar tenderness Extremity normal to inspection General Extremety ED: Negative for edema or tenderness General Extremity: Negative for edema Neuro no sensory deficits noted Neuro Narrative: Patient minimal conversation, however baseline per . Sensorium / Orientation: awake Skin no rashes or lesions noted and no wounds MDM MDM MDM Narrative Medical decision making narrative: Interventions / MDM: Differential diagnosis: Rectal bleed, diverticular bleed Diagnosis considered but do not suspect: No abdominal pain for diverticulitis My EKG interpretation: EKG: Sinus rate of 70, first-degree AV block, no ST or T wave changes. Imaging independently reviewed and interpreted by myself: CT abdomen pelvis oralcontrast per radiology no acute process. Diverticulosis noted. CT brain: No acute process also read by radiology. External documents reviewed: N/A Test considered but not ordered:N/A ED course: Patient large bowel movement dark blood. Clinically more concern fordiverticular bleed. She is on aspirin and Plavix due to her stroke this past September. She sees Dr. Adames for EPI, from records started on doxycycline and budesonide last week. states has been taking it. There was plans for outpatient CT scan along with stool studies. I did discuss with Dr. Adames at 1215, he would like to go ahead and obtain the CT imagings and at the stool studies for further work-up. He will follow as an inpatient for planned admission due to rectal bleeding. 1250: Hemoglobin 10.1 previous was 11. BUN 34 creatinine 1.14. Creatinine 1.14. No additional bloody stools. Reevaluation patient unable to her her name herself, stating this was new. She she is currently drinking oral contrast and not moving all extremities. We will add a CT brain due to her stroke history and September with confusion. CT scans all stable. I discussed with hospitalist Dr. Braswell for admission. Re-evaluation: stable Disposition discussed with patient/family/significant other: Patient and significant other Case discussed with consulting clinician: GI Dr. Adames, hospitalist Dr. Braswell. This note was generated with OMGP[employer] dictation software. It may contain incorrectwords, spelling, and punctuation that were not noted in checking the note beforesigning. Lab Data Attestation: I reviewed the patient's lab results. Labs: Laboratory Results - last 24 hr 01/12/23 01/12/23 01/12/23 12:00 12:45 13:57 WBC 7.9 RBC 3.34 L Hgb 10.1 L Hct 32.0 L MCV 95.8 MCH 30.2 MCHC 31.6 L RDW Std Deviation 47.6 H RDW Coeff of Marcio 13.4 Plt Count 225 MPV 11.0 Immature Gran % (Auto) 0.800 Neut % (Auto) 61.7 Lymph % (Auto) 27.4 [place] % (Auto) 7.1 Eos % (Auto) 2.0 Baso % (Auto) 1.0 Absolute Neuts (auto) 4.9 Absolute Lymphs (auto) 2.16 Nucleated RBC % 0 PT Cancelled 14.6 INR Cancelled 1.1 APTT Cancelled 29.4 Sodium 135 L Potassium 4.8 Chloride 103 Carbon Dioxide 30.0 Anion Gap 2 L BUN 34 H Creatinine 1.14 H Estim Creat Clear Calc 38.31 Est GFR (MDRD) Af Amer 58 L Est GFR (MDRD) Non-Af 48 L BUN/Creatinine Ratio 29.8 H Glucose 125 H Calcium 9.1 Total Bilirubin 0.40 AST 30 ALT 26 Alkaline Phosphatase 94 Total Protein 5.9 L Albumin 2.7 L Globulin 3.2 Albumin/Globulin Ratio 0.8 L Urine Color Yellow Urine Clarity Clear Urine pH 5.0 Ur Specific [place] 1.015 Urine Protein Negative Urine Glucose (UA) Normal Urine Ketones Negative Urine Occult Blood Negative Urine Nitrite Negative Urine Bilirubin 1 H Urine Urobilinogen Normal Ur Leukocyte Esterase 25 H Urine RBC 0 SEEN Urine WBC 0-5 SEEN Ur Squamous Epith Cells 0 SEEN Urine Bacteria 0 SEEN Urine Mucus 0 SEEN Blood Type AB POSITIVE Antibody Screen NEGATIVE Radiography Diagnostic Testing: Clinical Impression(s) from Imaging Studies Abdomen/Pelvis CT 01/12/23 12:23 IMPRESSION: Sigmoid diverticulosis. Calcified fibroid uterus. Electronically Signed: Alex Lobato MD at 15:08 EDT , Brain CT 01/12/23 12:53 IMPRESSION: Chronic involutional changes of the brain. Electronically Signed: Alex Lobato MD at 15:09 EDT , Discharge Plan Dx/Rx/DC Orders Clinical Impression: Bright red rectal bleeding, Exocrine pancreatic insufficiency, Anemia, Alzheimer disease, Weakness Disposition Disposition: Acute Care Hospital [facility] What to do if you have Problems For any increased pain, shortness of breath, bleeding, nausea or vomiting, chestpain, or any unexpected problems, contact your Primary Care Provider. Call [facility] ([phone]) or report to the closest Emergency Room. Call 911 if necessary. 01/12/23 1648 <Electronically signed by Isiah Osuna> Cosigner Signature (if applicable): CC: Dr. Clinton Fowler DO ~ Signed [facility] Work Phone: 1(166) 364-540406-30-2023 History and physical note Author Sixto Braswell [facility] January 12, 2023 2:24pm Note Date/Time January 12, 2023 2:24 pm [facility] Medical Records Department [address] [place] [id number] H&P Exam - Hospitalist 01/12/23 1419 MR#: [id number] Acct: [id number] Name: LIZA VELASQUEZ Rep #:[id number] : 1935 87 From: Sixto Braswell DO PCP: Dr. Clinton Fowler DO Status:ADM IN Location: [facility] [id number] HPI - General General Date of Admission: 01/12/23 Date of Service: 01/12/23 Chief Complaint: BRBPR HPI Narrative LIZA VELASQUEZ, is a 87 F who presents with purulent blood per rectum. Began thismorning. Patient is a poor historian due to dementia so history obtained through the emergency room physician and her . Patient had one episode that was described as rather large. Has never had this problem before. Patientis on aspirin and clopidogrel due to history of stroke. Patient brought to the emergency room and an hemoglobin of 10.1. Dr. Adames, gastroenterology, was contacted and recommended a CAT scan. Patient is not been able to say her name or her 's name. She has had this before with prior strokes but this is not typical of her baseline accordingto her . [facility] Medical History Alzheimer disease AMS (altered mental status) Anemia due to stage 3 chronic kidney disease Arthritis Bowel incontinence Chronic diarrhea CPAP (continuous positive airway pressure) dependence CVA (cerebral vascular accident) Dementia DM (diabetes mellitus), type 2 Falls GERD (gastroesophageal reflux disease) Hearing loss, left Hearing loss, right History of Sjogren's disease History of stroke Loose stools Mental status alteration Nausea and vomiting in adult Non-smoker Noninfective gastroenteritis and colitis, unspecified RLS (restless legs syndrome) Type 2 diabetes mellitus without complications Varicose veins of leg with edema Home Medications omeprazole 40 mg capsule,delayed release 40 mg PO DAILY GERD 01/06/14 [History Last Taken 01/11/23] cholecalciferol (vitamin D3) 25 mcg (1,000 unit) capsule 1,000 unit PO DAILY supplement 08/28/16 [History Last Taken 01/11/23] donepezil 5 mg tablet 10 mg PO QHS memory 08/28/16 [History Last Taken 01/11/23] metformin 500 mg tablet 500 mg PO DAILY blood sugar 08/28/16 [History Last Taken 01/11/23] cinnamon bark 500 mg capsule 1,000 mg PO DAILY supplement 11/30/17 [History Last Taken 01/11/23] atorvastatin 80 mg tablet 80 mg PO QHS #30 tabs 12/03/17 [Rx Last Taken 01/11/23] clopidogrel 75 mg tablet 75 mg PO DAILY #30 tabs 12/03/17 [Rx Last Taken 01/11/23] yubjcjpt-nvo-doxuu acid 0.4 mg-lycopene 300 mcg-lutein 250 mcg tablet 1 ea PO BID supplement 12/03/18 [History Last Taken 01/11/23] naproxen sodium 220 mg capsule 220 mg PO BID pain 12/03/18 [History Last Taken 01/11/23] Vitamin C 1 tab PO BID 06/08/19 [History Last Taken 01/11/23] memantine 10 mg tablet 10 mg PO BID Check with primary doctor 09/11/21 [History Last Taken 01/11/23] ramipril 5 mg capsule 5 mg PO DAILY Check with primary doctor 01/11/22 [History Last Taken 01/11/23] ropinirole 0.25 mg tablet 0.5 mg PO QHS Check with primary doctor 06/29/22 [History Last Taken 01/11/23] modafinil 100 mg tablet 200 mg PO DAILY Check with primary doctor 09/16/22 [History Last Taken 01/11/23] aspirin 81 mg chewable tablet 81 mg PO BREAKFAST #30 tabs 09/20/22 [Rx Last Taken 01/11/23] fndxdz-friyvylq-donlbgk 36,000-114,000-180,000 unit capsule,delay rel (Creon) See Rx Instructions PO .COMPLEX #320 caps 10/13/22 [Rx Last Taken 01/12/23] glipizide 5 mg tablet 2.5 mg PO BID DM 01/12/23 [History Last Taken 01/11/23] Allergy/AdvReac Type Severity Reaction Status Date / Time pollen extracts Allergy Intermediate PT UNSURE Verified 01/12/23 11:49 OF REACTION Family History Mother Alzheimer disease Brother Alzheimer disease Aunt Alzheimer disease Father Heart disease Surgical History H/O lumpectomy H/O: hysterectomy History of tonsillectomy Social History household members: spouse Smoking Status: Never smoker alcohol intake: never substance use type: does not use ROS Review of Systems ROS Unobtainable: due to encephalopathy Vital Signs Vital Signs Vital Signs: 01/12/23 11:50 01/12/23 11:53 Temperature 36.2 C L 36.2 C L Temperature Source Temporal Temporal Pulse Rate 72 72 Respiratory Rate 16 16 Blood Pressure 99/72 99/72 Blood Pressure Mean 81 81 Pulse Ox 94 94 Oxygen Delivery Method Room Air Room Air Weight Weight: 72.4 kg Body Mass Index (BMI) 22.8 Physical Exam Const no apparent distress Constitutional Narrative: Awake. Follows commands. Is not able to say her name or her 's name. HEENT normocephalic and head/scalp atraumatic Resp normal respiratory effort, no retractions, no use of accessory muscles and clearto auscultation bilaterally Cardio regular rate, regular rhythm, S1 normal heart sound and S2 normal heart sound GI normal to inspection, nondistended, normoactive bowel sounds, soft to palpation,non-tender and non-distended GI Narrative: Rectal exam showed no blood. Did have some nonthrombosed external hemorrhoids. Extremity normal to inspection Neuro moves all extremities Sensorium / Orientation: awake Psych affect normal Results Lab / Micro Data 01/12/23 12:00 01/12/23 12:00 Labs: Laboratory Results - last 24 hr 01/12/23 12:00: WBC 7.9, RBC 3.34 L, Hgb 10.1 L, Hct 32.0 L, MCV 95.8, MCH 30.2,MCHC 31.6 L, RDW Std Deviation 47.6 H, RDW Coeff of Marcio 13.4, Plt Count 225, MPV11.0, Immature Gran % (Auto) 0.800, Neut % (Auto) 61.7, Lymph % (Auto) 27.4, [place] % (Auto) 7.1, Eos % (Auto) 2.0, Baso % (Auto) 1.0, Absolute Neuts (auto) 4.9, Absolute Lymphs (auto) 2.16, Nucleated RBC % 0, PT Cancelled, INR Cancelled, APTT Cancelled, Sodium 135 L, Potassium 4.8, Chloride 103, Carbon Dioxide 30.0, Anion Gap 2 L, BUN 34 H, Creatinine 1.14 H, Estim Creat Clear Calc38.31, Est GFR (MDRD) Af Amer 58 L, Est GFR (MDRD) Non-Af 48 L, BUN/Creatinine Ratio 29.8 H, Glucose 125 H, Calcium 9.1, Total Bilirubin 0.40, AST 30, ALT 26, Alkaline Phosphatase 94, Total Protein 5.9 L, Albumin 2.7 L, Globulin 3.2, Albumin/Globulin Ratio 0.8 L, Blood Type AB POSITIVE, Antibody Screen NEGATIVE 01/12/23 12:45: Urine Color Yellow, Urine Clarity Clear, Urine pH 5.0, Ur Specific [place] 1.015, Urine Protein Negative, Urine Glucose (UA) Normal, UrineKetones Negative, Urine Occult Blood Negative, Urine Nitrite Negative, Urine Bilirubin 1 H, Urine Urobilinogen Normal, Ur Leukocyte Esterase 25 H, Urine RBC 0 SEEN, Urine WBC 0-5 SEEN, Ur Squamous Epith Cells 0 SEEN, Urine Bacteria 0 SEEN, Urine Mucus 0 SEEN Micro: Microbiology 01/12/23 12:22 Stool Stool Occult Blood (JIMI) - Final Occult Blood Positive Assessment & Plan Assessment/Plan (1) GI bleed: QUALIFIERS: GI bleed type/associated pathology: diverticulosis Qualified Code(s): K57.91 - Diverticulosis of intestine, part unspecified, without perforation or abscess with bleeding PLAN: Suspected due to diverticular bleed. CAT scan ordered. We will follow-up. Patient's hemoglobin has dropped but appears to be stable no active bleeding at this time. GI on consult Hold aspirin and gfzpnxoehy-isbw-poi for now. Clear liquid diet (2) Delirium: PLAN: Hypoactive This is in a patient with ongoing dementia and has had history of stroke. Nothing focal to suggest stroke at this time. Head CT has been ordered PLAN: Plan Chronic conditions * Dementia: Hold memantine as well as donezepil for now given the delirium. * Stroke: Hold aspirin and clopidogrel for now. * Sjogren's VTE prophylaxis with SCDs. Chemical prophylaxis contraindicated in light of GI bleed. CODE STATUS: Addressed with the patient's , who is her power of criminal attorney,patient is to be DNR [facility] arrest. Charges/Coding Visit Charges Inpatient E&M: 34713 Init Hosp L3 01/12/23 1424 <Electronically signed by Sixto Braswell DO> Cosigner Signature (if applicable): CC: Dr. Sixto Braswell DO; Dr. Clinton Fowler DO~ Signed [facility] Work Phone: 1(275) 148-369003-07-[address] Verma [facility] September 19, 2022 5:39pm Note Date/Time September 18, 2022 1:37 pm [facility] Medical Records Department [address] [place] [address] Progress Note 09/18/22 1336 MR#: [id number] Acct: [id number] Name: LIZA VELASQUEZ Rep #:[id number] : 1935 87 From: Isa Verma MD PCP: Dr. Clinton Fowler DO Status:ADM IN Location: [place] [address] Subjective Subjective Patient seen and examined. She had no active complaints. She denied any fever, chills, cough, chest pain, palpitations, dizziness, nausea, vomiting or diarrhea. Review of systems is otherwise negative. She does have baseline dementia but is able to communicate and ask questions. Review of systems is otherwisenegative. She has remained hemodyamically stable. Objective Data Objective Data Vital Signs: Vital Signs Temp Pulse Resp BP Pulse Ox O2 Del Method O2 Flow Rate 97.9 F 66 12 152/62 H 95 Nasal Cannula 2 09/18/22 05:30 09/18/22 12:45 09/18/22 12:30 09/18/22 12:45 09/18/22 12:45 09/18/22 12:45 09/18/22 12:45 Oxygen Flow Rate (L/min) 2 Oxygen Delivery Method Nasal Cannula Weight: 186 lb 1.122 oz Body Mass Index (BMI) 26.6 Intake & Output: Intake and Output for Last 24 Hours 09/16/22 09/17/22 09/18/22 23:59 23:59 23:59 Intake Total 1000 / 1000 900 / 900 Balance 1000 / 1000 900 / 900 Lab / Micro Data Result Diagrams: 09/18/22 06:10 09/18/22 06:10 Labs: Laboratory Results - last 24 hr 09/17/22 17:31: POC Glucose 134 H 09/17/22 20:50: POC Glucose 177 H 09/18/22 05:55: POC Glucose 125 H 09/18/22 06:10: WBC 7.9, RBC 3.88 L, Hgb 11.5 L, Hct 35.6 L, MCV 91.8, MCH 29.6,MCHC 32.3, RDW Std Deviation 41.9, RDW Coeff of Marcio 12.6, Plt Count 235, MPV 10.0, Immature Gran % (Auto) 0.500, Neut % (Auto) 57.8, Lymph % (Auto) 28.2, [place] % (Auto) 9.7, Eos % (Auto) 2.9, Baso % (Auto) 0.9, Absolute Neuts (auto) 4.6, Absolute Lymphs (auto) 2.23, Nucleated RBC % 0 09/18/22 06:10: Sodium 138, Potassium 3.7, Chloride 104, Carbon Dioxide 29.0, Anion Gap 5, BUN 12, Creatinine 0.97, Estim Creat Clear Calc 45.02, Est GFR (MDRD) Af Amer 70, Est GFR (MDRD) Non-Af 58 L, BUN/Creatinine Ratio 12.3, Glucose 136 H, Calcium 9.3, Total Bilirubin 0.50, AST 25, ALT 26, Alkaline Phosphatase 104, Total Protein 6.1 L, Albumin 2.7 L, Globulin 3.4, Albumin/Globulin Ratio 0.8 L 09/18/22 11:51: POC Glucose 213 H Micro: Microbiology 09/16/22 15:40 Blood Culture (Wb) - Anticubital Right Blood Culture - Preliminary Possible Fungus 09/16/22 15:53 Urine Catheter - Catheter Urine Culture - Final Escherichia coli Radiography Diagnostic Testing: Radiology Impression Brain MRI 09/18/22 12:08 IMPRESSION: 1. Acute lacunar ischemic infarct in the medial aspect of the right posterior periventricular white matter. 2. 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 3. Chronic white matter ischemic changes in both cerebral hemispheres are unchanged. Electronically Signed: Alex uRshing MD at 13:14 EST , Rhythm Strip Rhythm Strip: Sinus Rhythm Rate: 73 Ectopy: None Physical Exam Const alert and no apparent distress Constitutional Narrative: baseline confusion but able to answer questions today. HEENT normocephalic, head/scalp atraumatic, moist oral mucous membranes and oropharynxnormal Eyes PERRL and EOMs intact bilaterally Resp Resp Narrative: Mildly diminished breath sounds bibasilarly. No wheezes or crackles. Cardio regular rate, regular rhythm, S1 normal heart sound, S2 normal heart sound and no murmurs GI normal to inspection, nondistended, normoactive bowel sounds, soft to palpation,non-tender and non-distended Extremity normal capillary refill and no clubbing, cyanosis or edema Skin General Skin Exam: no breakdown Neuro CN's II-XII intact bilaterally, no focal motor deficits and no sensory deficits noted Speech: speech normal Motor Exam: strength 5/5 throughout Psych Appearance: appropriate Assessment & Plan Assessment/Plan (1) Hyperglycemia: (2) Mental status alteration: (3) Falls: (4) CVA (cerebral vascular accident): PLAN: Plan #Acute CVA * She was sent with a plaint of altered mental status. CT of the brain showed no acute intracranial pathology. 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 * Patient already on Plavix and high intensity statin. We will add on aspirin. * Neurology consulted. He did have 2D echo back in June 2022 which showed a tiny PFO. This will warrant aspirin being added on. * CTA had and neck in May 2022 was negative. Will hold off on repeating another one now * 2D echo also done in 2021; will hold off on a repeat now * PT/OT on board. fall precautions * #Acute metabolic encephalopathy * thought to be due to worsening dementia. However, acute CVA may also be play ing a role in light of the recent MRI dingdings * PT/OT on board. * Fall recautions. * she is back to her baseline and able to communicate and answer questions. * #Type 2 diabetes mellitus * Was found to be hyperglycemic during this admission. * Of note patient was hypoglycemic on presentation when she was admitted and evaluated in June 2022. O * n account of the hypoglycemia her glipizide was discontinued on admission. * Her A1c was also 6.1 at that time. * A1c for this admission pending. Currently on metformin. * We will adjust dose of medication as needed. * #GERD: On PPI #Hypertension: Hold BP meds to allow for permissive hypertension #Hyperlipidemia: On high intensity statin #Dementia: On memantine #Restless leg syndrome: On ropinirole DVT prophylaxis: Lovenox Charges/Coding Visit Charges Inpatient E&M: 54262 Subs Hosp L2 09/19/22 3979 <Electronically signed by Isa Verma MD> Isa Verma MD Cosigner Signature (if applicable): CC: ~ Signed [facility] Work Phone: 1(500) 298-233803-07-[address] Verma [facility] September 19, 2022 2:34pm Note Date/Time September 19, 2022 2:34 pm [facility] Medical Records Department [address] [place] [address] [place] [address] Progress Note 09/19/22 1426 MR#: [id number] Acct: [id number] Name: LIZA VELASQUEZ Rep #:[id number] : 1935 87 From: Isa Verma MD PCP: Dr. Clinton Fowler, DO Status:ADM IN Location: [place] [address] Subjective Subjective Patient seen and examined. She had no complaints. She was on BiPAP but she wasable to communicate. She denied any headache, fever, chills or any other symptoms. Review of systems of otherwise negative. Objective Data Objective Data Vital Signs: Vital Signs Temp Pulse Resp BP Pulse Ox O2 Del Method O2 Flow Rate 97.6 F L 72 16 165/91 H 93 Room Air 2 09/19/22 06:25 09/19/22 06:25 09/19/22 06:25 09/19/22 06:25 09/19/22 10:26 09/19/22 06:35 09/18/22 14:55 Oxygen Flow Rate (L/min) 2 Oxygen Delivery Method Room Air Weight: 186 lb 1.122 oz Body Mass Index (BMI) 26.6 Intake & Output: Intake and Output for Last 24 Hours 09/17/22 09/18/22 09/19/22 23:59 23:59 23:59 Intake Total 900 / 900 0 / 0 Balance 900 / 900 0 / 0 Lab / Micro Data Result Diagrams: 09/19/22 05:48 09/19/22 05:48 Labs: Laboratory Results - last 24 hr 09/18/22 15:57: POC Glucose 168 H 09/18/22 21:32: POC Glucose 155 H 09/19/22 05:48: Sodium 137, Potassium 3.6, Chloride 103, Carbon Dioxide 27.0, Anion Gap 7, BUN 12, Creatinine 0.94, Estim Creat Clear Calc 46.46, Est GFR (MDRD) Af Amer 73, Est GFR (MDRD) Non-Af 60, BUN/Creatinine Ratio 12.8, Glucose 154 H, Calcium 9.2, Triglycerides 117, Cholesterol 114, LDL Cholesterol 50, VLDLCholesterol 23, HDL Cholesterol 41 09/19/22 05:48: WBC 7.5, RBC 4.03 L, Hgb 12.1, Hct 36.8 L, MCV 91.3, MCH 30.0, MCHC 32.9, RDW Std Deviation 41.7, RDW Coeff of Marcio 12.6, Plt Count 244, MPV 9.4, Immature Gran % (Auto) 0.500, Neut % (Auto) 59.7, Lymph % (Auto) 25.5, [place]% (Auto) 10.5 H, Eos % (Auto) 2.9, Baso % (Auto) 0.9, Absolute Neuts (auto) 4.5,Absolute Lymphs (auto) 1.92, Nucleated RBC % 0 09/19/22 06:08: POC Glucose 146 H 09/19/22 11:34: POC Glucose 202 H Micro: Microbiology 09/16/22 17:07 Blood Culture (Wb) - Line Draw Blood Culture - Preliminary No growth in 48 hours. 09/16/22 15:40 Blood Culture (Wb) - Anticubital Right Blood Culture - Preliminary Possible Fungus 09/16/22 15:53 Urine Catheter - Catheter Urine Culture - Final Escherichia coli Radiography Diagnostic Testing: Radiology Impression Echocardiogram 09/18/22 13:33 Interpretation Summary Normal LV size. The estimated ejection fraction is 55 %. No regional wall motion abnormalities noted. Stage 1 diastolic dysfunction. There is moderate to severe mitral annular calcification. There is Mild focal anterior mitral annular calcification. Ordering Physician: Isa Verma Referring Physician: Clinton Fowler Performed By: Savannah Bangura RCS Rhythm Strip Rhythm Strip: Sinus Rhythm Rate: 73 Ectopy: None Physical Exam Const alert, no apparent distress, healthy appearing and well nourished Constitutional Narrative: baseline confusion, but can answer some questions General Appearance: cooperative HEENT normocephalic, head/scalp atraumatic, moist oral mucous membranes and oropharynxnormal Eyes PERRL, EOMs intact bilaterally and conjunctivae normal Neck no lymphadenopathy, supple, no JVD and no carotid bruits Resp normal respiratory effort, no retractions, no use of accessory muscles and clearto auscultation bilaterally Resp Narrative: Mildly diminished breath sounds bibasilarly. No wheezes or crackles. on BIPAP Auscultation: Negative for rales, rhonchi or wheezes Cardio regular rate, regular rhythm, S1 normal heart sound, S2 normal heart sound, no murmurs, no rub, no gallops and no clicks GI normal to inspection, nondistended, normoactive bowel sounds, soft to palpation,non-tender and non-distended Extremity normal capillary refill and no clubbing, cyanosis or edema Extremity Narrative: 2+ pedal pulses, 2+ radial pulses Skin no wounds, skin turgor normal, no jaundice, no petechiae and no mottling General Skin Exam: no breakdown Neuro CN's II-XII intact bilaterally, no focal motor deficits and no sensory deficits noted Sensorium / Orientation: awake and alert Motor Exam: strength 5/5 throughout Psych Negative for affect normal Assessment & Plan Assessment/Plan (1) Hyperglycemia: (2) Mental status alteration: (3) Falls: (4) CVA (cerebral vascular accident): PLAN: Plan #Acute CVA * She was admitted with a complaint of altered mental status. CT of the brain showed no acute intracranial pathology. 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 * Patient already on Plavix and high intensity statin. We will add on aspirin. * Neurology reviewed patient and recommended that in light of patient's worsening dementia, there was not much to offer in terms of any additional t herapy for the stroke. Neurology recommended that a goals of care discussion should be had with the family. I did speak to patient's Mr. Mat Velasquez today who said his goal was to take her home and take care of her at home. He was understanding of that the fact that her dementia was worsening and his goal was to make her comfortable and take care of her at home. * She did have 2D echo back in June 2022 which showed a tiny PFO. This will warrant aspirin being added on. * PT/OT on board. fall precautions * #Acute metabolic encephalopathy * thought to be due to worsening dementia. However, acute CVA may also be playing a role in light of the recent MRI dingdings * PT/OT on board. * Fall precautions. * she is back to her baseline and able to communicate and answer questions. * #Type 2 diabetes mellitus * Was found to be hyperglycemic during this admission. * Of note patient was hypoglycemic on presentation when she was admitted and evaluated in June 2022. O * n account of the hypoglycemia her glipizide was discontinued on admission. * Her A1c was also 6.1 at that time. * A1c for this admission pending. Currently on metformin. * We will adjust dose of medication as needed. * #GERD: On PPI #Hypertension: Hold BP meds to allow for permissive hypertension #Hyperlipidemia: On high intensity statin #Dementia: On memantine #Restless leg syndrome: On ropinirole DVT prophylaxis: Lovenox Disposition: Anticipate discharge home by tomorrow depending on how she is doingwith therapy. Charges/Coding Visit Charges Inpatient E&M: 69291 Subs Hosp L2 09/19/22 1434 <Electronically signed by Isa Verma MD> Isa Verma MD Cosigner Signature (if applicable): CC: ~ Signed [facility] Work Phone: 1(162) 972-802603-06-[address] Verma [facility] September 18, 2022 1:35pm Note Date/Time September 18, 2022 1:36 pm [facility] Medical Records Department [address] [place] [address] Telemedicine Confirmation Receipt 09/18/22 MR#: [id number] Acct: [id number] Name: LIZA VELASQUEZ Rep #:[id number] : 1935 87 From: Isa Verma MD PCP: Dr. Clinton Fowler, DO Status:ADM IN [facility] has confirmed receipt of a request for visit. This document confirms receipt of the order initiating the consult. To find the results of the consultation, please view the patient's reports for the scanned Telemed Consult. [facility] Work Phone: [phone]) 310-427003-05-[address] Chawla [facility] September 17, 2022 4:41pm Note Date/Time September 17, 2022 7:15 am [facility] Medical Records Department [address] [place] [address] Progress Note - Hospitalist 09/17/22706 MR#: [id number] Acct: [id number] Name: LIZA VELASQUEZ Rep #:[id number] : 1935 87 From: Maria D Chawla MD PCP: Dr. Clinton Fowler, DO Status:ADM IN [id number] Reason for Visit Reason for Visit: Diagnoses Altered mental status, unspecified (09/16/22) Hyperglycemia, unspecified (09/16/22) Unspecified fall, initial encounter (09/16/22) Subjective Subjective Laying in bed, no acute distress. at bedside and reports that her mental status and alertness are pretty much back to baseline though still not asmobile as she had been. Open to placement. Objective Data Objective Data Vital Signs: Vital Signs Temp Pulse Resp BP Pulse Ox O2 Del Method 98.3 F 63 15 149/72 H 95 CPAP 09/17/22 03:00 09/17/22 03:00 09/17/22 03:00 09/17/22 03:00 09/17/22 03:00 09/17/22 03:00 Oxygen Delivery Method CPAP Weight: 84.4 kg Body Mass Index (BMI) 26.6 Intake & Output: Intake and Output for Last 24 Hours 09/15/22 09/16/22 09/17/22 23:59 23:59 23:59 Intake Total 1000 / 1000 300 / 300 Balance 1000 / 1000 300 / 300 Lab / Micro Data Result Diagrams: 09/17/22 08:41 09/17/22 08:41 Labs: Laboratory Results - last 24 hr 09/16/22 15:40: WBC 7.5, RBC 3.66 L, Hgb 11.0 L, Hct 35.0 L, MCV 95.6, MCH 30.1,MCHC 31.4 L, RDW Std Deviation 44.8 H, RDW Coeff of Marcio 12.8, Plt Count 248, MPV10.1, Immature Gran % (Auto) 0.500, Neut % (Auto) 57.8, Lymph % (Auto) 30.3, [place] % (Auto) 8.6, Eos % (Auto) 1.9, Baso % (Auto) 0.9, Absolute Neuts (auto) 4.3, Absolute Lymphs (auto) 2.26, Nucleated RBC % 0 09/16/22 15:40: PT 13.6, INR 1.1 09/16/22 15:40: Sodium 135 L, Potassium 4.3, Chloride 101, Carbon Dioxide 28.0, Anion Gap 6, BUN 18, Creatinine 1.18 H, Estim Creat Clear Calc 33.28, Est GFR (MDRD) Af Amer 56 L, Est GFR (MDRD) Non-Af 46 L, BUN/Creatinine Ratio 15.3, Glucose 337 H, Calcium 9.0, Total Bilirubin 0.40, AST 24, ALT 25, Alkaline Phosphatase 100, Total Protein 6.3 L, Albumin 3.0 L, Globulin 3.3, Albumin/Globulin Ratio 0.9 09/16/22 15:40: Lactic Acid 1.9 09/16/22 15:40: TSH 2.42 09/16/22 15:40: Folate 40.40 09/16/22 15:53: Urine Color Yellow, Urine Clarity Clear, Urine pH 5.0, Ur Specific [place] 1.015, Urine Protein Negative, Urine Glucose (UA) 1000 H, UrineKetones Negative, Urine Occult Blood Negative, Urine Nitrite Positive H, Urine Bilirubin Negative, Urine Urobilinogen Normal, Ur Leukocyte Esterase Negative, Urine RBC 0 SEEN, Urine WBC 0 SEEN, Ur Squamous Epith Cells 0 SEEN, Urine Bacteria 1+, Urine Mucus 0 SEEN 09/16/22 17:07: Acetone Level NEGATIVE 09/16/22 17:07: Vitamin B12 999 H 09/16/22 22:57: POC Glucose 145 H 09/17/22 06:43: POC Glucose 108 H Micro: Microbiology 09/16/22 15:40 Blood Culture (Wb) - Anticubital Right Blood Culture - Preliminary Radiography Diagnostic Testing: Radiology Impression Brain CT 09/16/22 15:27 IMPRESSION: 1. No acute intracranial abnormality. There has been no significant change from the reference exam. 2. Stable underlying senescent change with small vessel ischemia. Electronically Signed: Nathaniel Lebron MD at 16:54 EST , Chest X-Ray 09/16/22 16:20 IMPRESSION: No radiographic evidence of acute cardiopulmonary disease. Electronically Signed: Nathaniel Lebron MD at 16:44 EST , Rhythm Strip Rhythm Strip: Sinus Rhythm Rate: 73 Ectopy: None Physical Exam Narrative General: Alert, not oriented, no acute distress HEENT: Atraumatic, normocephalic Eyes: Anicteric, normal conjunctiva, extraocular movements grossly intact Neck: Supple Respiratory: Clear to auscultation bilaterally, normal respiratory effort Cardiovascular: Regular rate GI: Soft, nontender, nondistended Extremities: No edema Musculoskeletal: Moving all extremities Neuro: No overt focal neurological deficits, handgrip equal, [id number] bilaterally without difficulty, able to lift and hold both legs without drift Skin: No rashes appreciated Psych: Attempts to be cooperative Assessment & Plan Assessment/Plan (1) Mental status alteration: (2) Hyperglycemia: (3) Falls: PLAN: Plan #Mental status change -Etiology is unclear -Metabolic work-up so far is normal -I am questioning whether she just has progressing dementia -We will check MRI of brain -CT was unremarkable -Check B12/folate -UA is not consistent with UTI -PT/OT consultation -09/17: 1 or 2 blood cultures with gram-positive rods in chains, awaiting speciation and second blood culture. 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 No signs or symptoms of infection at this time. We will follow blood cultures but suspect contaminant. ESR, CRP, Pro-Sherman within normal limits. Given mental status is back to baseline we will hold off on empiric antibiotics and follow cultures. Also given her improvement and and her difficulty staying still and will need to be sedated for EEG, EEG has been discontinued. MRI or order still in place, tentative for tomorrow. #PFO -Small PFO noticed on her last echocardiogram from 06/15/2022 -We will need to clinically correlate with MRI -If new stroke present may need to add dual antiplatelet therapy as she is currently on Plavix -09/17: MRI pending #Falls -PT/OT consultation -Will need placement #DM-2 with hyperglycemia -Patient came in with mental status change in June 2022 and was found to be hypoglycemic -She was on glipizide and metformin at that time -Glipizide was discontinued -We will give 8 units of Lantus tonight -Hold metformin -Sliding scale -Accu-Cheks -Check hemoglobin A1c -Patient likely needs additional oral medications at discharge but would avoid sulfonylureas -09/17: On 8 units of glargine nightly with sliding scale insulin for glucose however blood glucose 100s with a reading of 95 earlier, will de-escalate this given age and comorbidities. Holding metformin. May be able to be transition to only orals that do not cause hypoglycemia on an outpatient basis especially given functional status, prognosis, age #GERD -Continue omeprazole #HTN/HPL -Continue ramipril -Continue atorvastatin #Pancreatic insufficiency -Continue Creon #History of stroke -Continue home Plavix next-patient is not on aspirin #Dementia -Continue home donepezil -Continue home memantine #Restless leg syndrome -Continue home ropinirole #DVT prophylaxis -Lovenox 40 subcu daily Time spent in the patient's overall evaluation,decision-making process, review of diagnostic data, adjustment of management, discussion with other providers, nursing nursing and ancillary staff involved in patient's care documentation, 30minutes Charges/Coding Visit Charges Inpatient E&M: 67504 Subs Hosp L2 09/17/22 1641 <Electronically signed by Maria D Chawla MD> Cosigner Signature (if applicable): CC: ~ Signed [facility] Work Phone: [phone]) 286-394903-05-[address] Paredes [facility] September 17, 2022 5:58am Note Date/Time September 17, 2022 5:58 am [facility] Medical Records Department [address] [place] [address] Progress Note 09/17/22 0555 MR#: [id number] Acct: [id number] Name: LIZA VELASQUEZ Rep #:[id number] : 1935 87 From: Foreign Paredes MD PCP: Dr. Clinton Fowler, DO Status:ADM IN Location: [facility] [id number] Progress Note Preliminary blood culture; one with gram positive rods in chains. Patient has no fever or leukocytosis. Likely contaminant. 09/17/22 0558 <Electronically signed by Foreign Paredes MD> Foreign Paredes MD Cosigner Signature (if applicable): CC: ~ Signed [facility] Work Phone: [phone]) [phone] History and physical note Author Dr. Buckner [facility] September 16, 2022 8:11pm Note Date/Time September 16, 2022 6:43 pm [facility] Medical Records Department [address] [place] [address] H&P Exam - Hospitalist 09/16/22 1839 MR#: [id number] Acct: [id number] Name: LIZA VELASQUEZ Rep #:[id number] : 1935 87 From: Estrella Buckner DO PCP: Dr. Clinton Fowler, DO Status:ADM IN Location: [facility] [id number] HPI - General General Date of Admission: 09/16/22 Date of Service: 09/16/22 Chief Complaint: MS Changes HPI Narrative LIZA VELASQUEZ, is a 87 F who presented to the emergency department at [facility] with her on 09/16/2022 after she was acting abnormally at home. She has fairly significant dementia at baseline and typically is alertand oriented to herself only. Her states she has good days and bad days, for example on 's Day she did not know who he was however earliertoday she was able to call him by name. It sounds as if she has been having some slow decline over the past several months however she is able to eat independently and take her meds. He helped significantly with her care. Today she was more confused and slower than she had been at baseline. She evidently had had 2 falls in the past week with no injuries. Both falls happened within [id number] period. She ambulates in the home by holding onto furniture but has a quad cane and a wheeled walker as well. She uses both of these intermittently. She had a recent admission here early in June 2022 when there was can some concern for stroke and she was found to be hypoglycemic at that time. She was taken off her glipizide and maintained on metformin. Her does show acute sugars at home and they have been higher than usual with the discontinuation of the glipizide. He did admit to giving her grape juice beforeshe came and saw her blood sugar is higher than it had been at home. After talking to it sounds as if maybe she has declined some with regards to her dementia. Vital signs on presentation showed a temperature of 97.5, heart rate of 78, blood pressure 154/78, respiratory rate was 18 and sats were 95% on room air. Chemistry panel shows a chronic stable anemia but was otherwise unremarkable. Coags are normal. Chemistry shows a mild hyponatremia with a sodium of 135 which appears to be close to her baseline as this fluctuates for her. Serum creatinine was 1.18 which seems to be close to her baseline. Serum glucose was markedly elevated however at 337. Lactic acid was normal. Liver function was normal. TSH was 2.42. Her UA showed glucose urea and was positive for nitritesbut negative for leuk esterase and white cells. Acetone was negative. CT of the brain showed no acute intercranial abnormality with no significant change from previous exam and stable underlying senescent changes with small vessel ischemia. Chest x-ray was unremarkable for any acute processes. EKG showed normal sinus rhythm with normal intervals and no ST-T wave changes concerning for acute ischemia. No significant findings were found while she was in the emergency department however the patient was not able to get up and move around well and this prohibited the from taking her home. [facility] Medical History Alzheimer disease AMS (altered mental status) Anemia due to stage 3 chronic kidney disease Arthritis Bowel incontinence Chronic diarrhea CPAP (continuous positive airway pressure) dependence Dementia DM (diabetes mellitus), type 2 GERD (gastroesophageal reflux disease) Hearing loss, left Hearing loss, right History of Sjogren's disease History of stroke Nausea and vomiting in adult Non-smoker Noninfective gastroenteritis and colitis, unspecified RLS (restless legs syndrome) Type 2 diabetes mellitus without complications Varicose veins of leg with edema Home Medications omeprazole 40 mg capsule,delayed release 40 mg PO DAILY GERD 01/06/14 [History Last Taken 01/05/14] cholecalciferol (vitamin D3) 25 mcg (1,000 unit) capsule 1,000 unit PO DAILY supplement 08/28/16 [History Last Taken 09/15/22] donepezil 5 mg tablet 10 mg PO QHS memory 08/28/16 [History Last Taken 09/15/22] metformin 500 mg tablet 500 mg PO DAILY blood sugar 08/28/16 [History Last Taken Unknown] cinnamon bark 500 mg capsule 1,000 mg PO DAILY supplement 11/30/17 [History Last Taken 09/15/22] erythromycin 5 mg/gram (0.5 %) eye ointment 1 applicatio EACH EYE DAILY eye ointment 11/30/17 [History Last Taken Unknown] atorvastatin 80 mg tablet 80 mg PO QHS #30 tabs 12/03/17 [Rx Last Taken Unknown] clopidogrel 75 mg tablet 75 mg PO DAILY #30 tabs 12/03/17 [Rx Last Taken 09/15/22] cfpnxchm-xac-qsjgp acid 0.4 mg-lycopene 300 mcg-lutein 250 mcg tablet 1 ea PO BID supplement 12/03/18 [History Last Taken 09/15/22] naproxen sodium 220 mg capsule 220 mg PO BID pain 12/03/18 [History Last Taken Unknown] Vitamin C 1 tab PO BID 06/08/19 [History Last Taken 09/15/22] memantine 10 mg tablet 10 mg PO BID 09/11/21 [History Last Taken Unknown] acetaminophen 500 mg tablet 1,000 mg PO Q8H PRN PRN Pain Score 1-10/Temp > 100.7F #0 tabs 09/12/21 [Rx Last Taken Unknown] ramipril 5 mg capsule 5 mg PO DAILY 01/11/22 [History Last Taken Unknown] ropinirole 0.25 mg tablet 0.5 mg PO QHS 01/11/22 [History Last Taken Unknown] melatonin 10 mg tablet 10 mg PO QHS 06/14/22 [History Last Taken 09/15/22] ettvyr-phrvazjq-yesgfwp 36,000-114,000-180,000 unit capsule,delay rel (Creon) See Rx Instructions PO .COMPLEX #320 caps 08/28/22 [Rx Last Taken 09/16/22] Allergy/AdvReac Type Severity Reaction Status Date / Time corn pollen Allergy Intermediate unk Uncoded 02/04/22 15:53 Family History Mother Alzheimer disease Brother Alzheimer disease Aunt Alzheimer disease Father Heart disease Surgical History H/O lumpectomy H/O: hysterectomy History of tonsillectomy Social History household members: spouse Smoking Status: Never smoker alcohol intake: never substance use type: does not use ROS Review of Systems ROS Unobtainable: due to mental status Vital Signs Vital Signs Vital Signs: 09/16/22 15:20 09/16/22 15:29 Temperature 97.5 F L Temperature Source Temporal Pulse Rate 78 Respiratory Rate 26 H Respiratory Pattern Normal Blood Pressure 154/78 H Blood Pressure Mean 103 Pulse Ox 94 Oxygen Delivery Method Room Air Weight Weight: 86.9 kg Body Mass Index (BMI) 29.9 Physical Exam Const alert, healthy appearing and well nourished Constitutional Narrative: Elderly white female, obese, lying in bed with sheets over her head, gets somewhat combative when I try to examine her but is able to be calmed by her , does not appear toxic General Appearance: cooperative HEENT normocephalic, head/scalp atraumatic and moist oral mucous membranes HEENT Narrative: Upper dentures in place, Mallampati is 2, mucous membranes are moist, no thrush Eyes PERRL, EOMs intact bilaterally and conjunctivae normal Eyes Narrative: No scleral icterus Neck no lymphadenopathy, supple, no JVD and no carotid bruits Neck Narrative: Trachea midline Resp normal respiratory effort, no retractions, no use of accessory muscles and clearto auscultation bilaterally Auscultation: Negative for rales, rhonchi or wheezes Cardio regular rate, regular rhythm, S1 normal heart sound, S2 normal heart sound, no murmurs, no rub, no gallops and no clicks Extremity no clubbing, cyanosis or edema Extremity Narrative: 2+ pedal pulses, 2+ radial pulses Skin no wounds, skin turgor normal, no jaundice, no petechiae and no mottling Skin Narrative: Scattered ecchymosis monthly on upper extremities with no wounds noted, skin is pale Neuro Neuro Narrative: Patient was not real compliant with exam, reflexes are normal, moves all extremities spontaneously and no focal deficits noted, speech was clear when shewould speech but nonsensical at times and not appropriately answering questions Sensorium / Orientation: awake and alert Psych Negative for affect normal Results Lab / Micro Data Attestation: I reviewed the patient's lab results. Result Diagrams: 09/16/22 15:40 09/16/22 15:40 Labs: Laboratory Results - last 24 hr 09/16/22 15:40: WBC 7.5, RBC 3.66 L, Hgb 11.0 L, Hct 35.0 L, MCV 95.6, MCH 30.1,MCHC 31.4 L, RDW Std Deviation 44.8 H, RDW Coeff of Marcio 12.8, Plt Count 248, MPV10.1, Immature Gran % (Auto) 0.500, Neut % (Auto) 57.8, Lymph % (Auto) 30.3, [place] % (Auto) 8.6, Eos % (Auto) 1.9, Baso % (Auto) 0.9, Absolute Neuts (auto) 4.3, Absolute Lymphs (auto) 2.26, Nucleated RBC % 0 09/16/22 15:40: PT 13.6, INR 1.1 09/16/22 15:40: Sodium 135 L, Potassium 4.3, Chloride 101, Carbon Dioxide 28.0, Anion Gap 6, BUN 18, Creatinine 1.18 H, Estim Creat Clear Calc 33.28, Est GFR (MDRD) Af Amer 56 L, Est GFR (MDRD) Non-Af 46 L, BUN/Creatinine Ratio 15.3, Glucose 337 H, Calcium 9.0, Total Bilirubin 0.40, AST 24, ALT 25, Alkaline Phosphatase 100, Total Protein 6.3 L, Albumin 3.0 L, Globulin 3.3, Albumin/Globulin Ratio 0.9 09/16/22 15:40: Lactic Acid 1.9 09/16/22 15:53: Urine Color Yellow, Urine Clarity Clear, Urine pH 5.0, Ur Specific [place] 1.015, Urine Protein Negative, Urine Glucose (UA) 1000 H, UrineKetones Negative, Urine Occult Blood Negative, Urine Nitrite Positive H, Urine Bilirubin Negative, Urine Urobilinogen Normal, Ur Leukocyte Esterase Negative, Urine RBC 0 SEEN, Urine WBC 0 SEEN, Ur Squamous Epith Cells 0 SEEN, Urine Bacteria 1+, Urine Mucus 0 SEEN 09/16/22 17:07: Acetone Level NEGATIVE Rhythm Strip Rhythm Strip: Sinus Rhythm Rate: 73 Ectopy: None Radiology Impression Brain CT 09/16/22 15:27 IMPRESSION: 1. No acute intracranial abnormality. There has been no significant change from the reference exam. 2. Stable underlying senescent change with small vessel ischemia. Electronically Signed: Nathaniel Lebron MD at 16:54 EST , Chest X-Ray 09/16/22 16:20 IMPRESSION: No radiographic evidence of acute cardiopulmonary disease. Electronically Signed: Nathaniel Lebron MD at 16:44 EST , Assessment & Plan Assessment/Plan (1) Mental status alteration: (2) Hyperglycemia: (3) Falls: PLAN: Plan Mental status change -Etiology is unclear -Metabolic work-up so far is normal -I am questioning whether she just has progressing dementia -We will check MRI of brain -CT was unremarkable -Check B12/folate -UA is not consistent with UTI -PT/OT consultation PFO -Small PFO noticed on her last echocardiogram from 06/15/2022 -We will need to clinically correlate with MRI -If new stroke present may need to add dual antiplatelet therapy as she is currently on Plavix [place] -PT/OT consultation -Patient may need services at discharge DM-2 with hyperglycemia -Patient came in with mental status change in June 2022 and was found to be hypoglycemic -She was on glipizide and metformin at that time -Glipizide was discontinued -We will give 8 units of Lantus tonight -Hold metformin -Sliding scale -Accu-Cheks -Check hemoglobin A1c -Patient likely needs additional oral medications at discharge but would avoid sulfonylureas GERD -Continue omeprazole HTN/HPL -Continue ramipril -Continue atorvastatin Pancreatic insufficiency -Continue Creon History of stroke -Continue home Plavix next-patient is not on aspirin Dementia -Continue home donepezil -Continue home memantine Restless leg syndrome -Continue home ropinirole DVT prophylaxis -Lovenox 40 subcu daily CODE STATUS -DNR CCA with no intubation as verified with the on admission Charges/Coding Visit Charges Inpatient E&M: 66813 Init Hosp L3 09/16/222010 <Electronically signed by Estrella Buckner DO> Cosigner Signature (if applicable): CC: Dr. Estrella Buckner DO; Dr. Clinton Fowler DO~ Signed [facility] Work Phone: [phone]) 139-817003-04-[address] Thomas [facility] September 16, 2022 6:52pm Note Date/Time September 16, 2022 3:34 pm [facility] Medical Records Department [address] [place] [address] Emergency Department Summary 09/16/22 MR#: [id number] Acct: [id number] Name: LIZA VELASQUEZ Rep #:[id number] : 1935 87 From: Moncho Thomas MD PCP: Dr. Clinton Fowler DO Status:REG ER Location: ED HPI History of Present Illness Chief Complaint: Alt LOC Informant: patient and EMS Onset/Context/Timing Onset: Days Context: Gradual Onset Timing: Continuous Current Severity: Moderate Maximum Severity: Moderate Narrative Narrative: 87-year-old female reportedly history of dementia, diabetes and prior stroke. Decreased mental status from home. This is per the paramedics. The patient currently is unable to give any history. There is no family present yet at thistime. Prior similar symptoms: No Recent Illness/Hospitalization: No PFSH PFSH Medical History Alzheimer disease AMS (altered mental status) Anemia due to stage 3 chronic kidney disease Arthritis Bowel incontinence Chronic diarrhea CPAP (continuous positive airway pressure) dependence Dementia DM (diabetes mellitus), type 2 GERD (gastroesophageal reflux disease) Hearing loss, left Hearing loss, right History of Sjogren's disease History of stroke Nausea and vomiting in adult Non-smoker Noninfective gastroenteritis and colitis, unspecified RLS (restless legs syndrome) Type 2 diabetes mellitus without complications Varicose veins of leg with edema Home Medications omeprazole 40 mg capsule,delayed release 40 mg PO DAILY GERD 01/06/14 [History Last Taken 01/05/14] cholecalciferol (vitamin D3) 25 mcg (1,000 unit) capsule 1,000 unit PO DAILY supplement 08/28/16 [History Last Taken 09/15/22] donepezil 5 mg tablet 10 mg PO QHS memory 08/28/16 [History Last Taken 09/15/22] metformin 500 mg tablet 500 mg PO DAILY blood sugar 08/28/16 [History Last Taken Unknown] cinnamon bark 500 mg capsule 1,000 mg PO DAILY supplement 11/30/17 [History Last Taken 09/15/22] erythromycin 5 mg/gram (0.5 %) eye ointment 1 applicatio EACH EYE DAILY eye ointment 11/30/17 [History Last Taken Unknown] atorvastatin 80 mg tablet 80 mg PO QHS #30 tabs 12/03/17 [Rx Last Taken Unknown] clopidogrel 75 mg tablet 75 mg PO DAILY #30 tabs 12/03/17 [Rx Last Taken 09/15/22] hegifmuk-kqj-yhyka acid 0.4 mg-lycopene 300 mcg-lutein 250 mcg tablet 1 ea PO BID supplement 12/03/18 [History Last Taken 09/15/22] naproxen sodium 220 mg capsule 220 mg PO BID pain 12/03/18 [History Last Taken Unknown] Vitamin C 1 tab PO BID 06/08/19 [History Last Taken 09/15/22] memantine 10 mg tablet 10 mg PO BID 09/11/21 [History Last Taken Unknown] acetaminophen 500 mg tablet 1,000 mg PO Q8H PRN PRN Pain Score 1-10/Temp > 100.7F #0 tabs 09/12/21 [Rx Last Taken Unknown] ramipril 5 mg capsule 5 mg PO DAILY 01/11/22 [History Last Taken Unknown] ropinirole 0.25 mg tablet 0.5 mg PO QHS 01/11/22 [History Last Taken Unknown] melatonin 10 mg tablet 10 mg PO QHS 06/14/22 [History Last Taken 09/15/22] nlcypt-tcrvqvfi-kzgruja 36,000-114,000-180,000 unit capsule,delay rel (Creon) See Rx Instructions PO .COMPLEX #320 caps 08/28/22 [Rx Last Taken 09/16/22] Allergy/AdvReac Type Severity Reaction Status Date / Time corn pollen Allergy Intermediate unk Uncoded 02/04/22 15:53 Family History Mother Alzheimer disease Brother Alzheimer disease Aunt Alzheimer disease Father Heart disease Surgical History H/O lumpectomy H/O: hysterectomy History of tonsillectomy Social History household members: spouse Smoking Status: Never smoker alcohol intake: never substance use type: does not use ROS ROS ED ROS Narrative Patient unable due to mental status. Review of Systems ROS Unobtainable: due to mental status EXAM Physical Exam Narrative Exam Narrative: 87-year-old female. Vital signs are stable afebrile. Pulse ox 94% on room air no hypoxia. She is in no distress. H EENT exam pupils round react to light. Moist mucous membranes. No obvious trauma to her face or scalp. No facial droop. Neck nontender no meningismus. No lymphadenopathy. Lungs clear to auscultation bilaterally. Heart regular rhythm rate about 80 no murmur. Chest wall nontender. Abdomen soft nontender. Moving all 4 extremities. Nontender no deformities. Neurologically her eyes are open. She is not answering any questions. She is not following commands. There may be some neglect on the left side but she is moving her left arm. Currently she is not speaking so I can assess her speech. Const Vital Signs: 09/16/22 15:20 09/16/22 15:29 Temperature 97.5 F L Temperature Source Temporal Pulse Rate 78 Respiratory Rate 26 H Respiratory Pattern Normal Blood Pressure 154/78 H Blood Pressure Mean 103 Pulse Ox 94 Oxygen Delivery Method Room Air Positive well nourished, well developed and obese; Negative for cachectic, contractures or unkempt General Appearance ED: well developed; Negative for unkempt, cachectic or contractures Nutritional Appearance: obese; Negative for cachectic HEENT Reports moist mucous membranes Negative for trauma or tenderness Eyes PERRL and EOMs intact bilaterally General Eye ED: Negative for pale conjunctiva or scleral icterus Neck no lymphadenopathy, supple and no JVD General: Negative for tenderness Chest Wall inspection of chest normal and palpation of chest normal Resp normal respiratory effort and clear to auscultation bilaterally Effort and Inspection: Negative for retractions Auscultation: Negative for rales, rhonchi or wheezes Cardio regular rate, regular rhythm, S1 normal heart sound, S2 normal heart sound and no murmurs Palpation: Negative for palpable S3 Rate: Negative for bradycardia Rhythm: Negative for abnormal rhythm GI normal to inspection, nondistended, normoactive bowel sounds, non-tender, non-distended and no masses Inspection: Negative for abdominal distention Auscultation: normoactive bowel sounds Palpation: soft; Negative for tender or guarding Back/Spine no CVA tenderness General Back: Negative for CVA tenderness Cervical Spine: Negative for cervical spine tenderness Thoracic Spine / Upper Back: Negative for thoracic spinal tenderness Lumbar Spine / Lower Back: Negative for lumbar spinal tenderness Extremity normal to inspection General Extremety ED: Negative for edema or tenderness General Extremity: Negative for edema Neuro No oriented x3 Sensorium / Orientation: alert and orientation impaired; Negative for lethargic or stuporous Motor Exam: strength 5/5 throughout Psych mental status grossly normal Appearance: Negative for unkempt Skin no rashes or lesions noted and no wounds Lesions: No lesion noted Rashes: No rashes noted Trauma: Negative for abrasion MDM MDM MDM Narrative Medical decision making narrative: 87-year-old female with decreased mental status. This could be from an infectious etiology, electrolyte abnormality, stroke or intracranial event versus other etiologies. CAT scan of her brain labs chest x-ray and EKG will beobtained. She will be given a liter of fluid. She does have diabetes her initial blood sugar is elevated at 420 we will check serum ketones for possible DKA. I suspect she will be admitted. I will speak to the family and review [facility] records when both are available. Patient's did arrive he is in the room with her. He said this is mainlytoday. The last several hours. She has had some recent falls but he says she has never hit her head or been knocked out. She has not been ill. She does getfrequent urinary tract infections. He states this is a significant different from her baseline. Repeat exam at 6:15 PM patient is doing well. She is resting comfortably. She has received a liter of fluid. Her and I went over all of her test results we do not really have any specific diagnosis at this time. I will send a urine culture but she is not having symptoms and not getting treated for UTI right now which has nitrites and 1+ bacteria with no white or red cells nor any symptoms. Organ to ambulate her if she ambulates her is comfortable taking her home if she is difficulty ambulating I will admit her. He states nowshe seems more back to her mental status baseline. Patient was unable to get out of bed and walk. She will be admitted to the hospital. Discussed with her is comfortable with the plan and the hospitalist. History & Record Review Discussion w/independent historian: EMS personnel and Significant other Additional record(s) reviewed:: Prior inpatient record, Prior outpatient record and Prior labs Lab Data Attestation: I reviewed the patient's lab results. Lab results narrative: CBC shows white count 7.5. H&H 11.0 and 35. Platelets 248. PT of 13.6 INR 1.1. Electrolytes show sodium 135 gap is 6 normal BUN of 18 creatinine 1.1. Glucose is elevated at 337 she is diabetic. Liver enzymes are unremarkable. Urinalysis shows positive nitrates and 1+ bacteria but no white or red cells. Chest shows no acute abnormality. Acetone is negative. UA has positive nitrates 1+ bacteria. Culture will be sent. Labs: Laboratory Results - last 24 hr 09/16/22 09/16/22 09/16/22 15:40 15:40 15:40 WBC 7.5 RBC 3.66 L Hgb 11.0 L Hct 35.0 L MCV 95.6 MCH 30.1 MCHC 31.4 L RDW Std Deviation 44.8 H RDW Coeff of Marcio 12.8 Plt Count 248 MPV 10.1 Immature Gran % (Auto) 0.500 Neut % (Auto) 57.8 Lymph % (Auto) 30.3 [place] % (Auto) 8.6 Eos % (Auto) 1.9 Baso % (Auto) 0.9 Absolute Neuts (auto) 4.3 Absolute Lymphs (auto) 2.26 Nucleated RBC % 0 PT 13.6 INR 1.1 Sodium 135 L Potassium 4.3 Chloride 101 Carbon Dioxide 28.0 Anion Gap 6 BUN 18 Creatinine 1.18 H Estim Creat Clear Calc 33.28 Est GFR (MDRD) Af Amer 56 L Est GFR (MDRD) Non-Af 46 L BUN/Creatinine Ratio 15.3 Glucose 337 H Lactic Acid Calcium 9.0 Total Bilirubin 0.40 AST 24 ALT 25 Alkaline Phosphatase 100 Total Protein 6.3 L Albumin 3.0 L Globulin 3.3 Albumin/Globulin Ratio 0.9 Urine Color Urine Clarity Urine pH Ur Specific [place] Urine Protein Urine Glucose (UA) Urine Ketones Urine Occult Blood Urine Nitrite Urine Bilirubin Urine Urobilinogen Ur Leukocyte Esterase Urine RBC Urine WBC Ur Squamous Epith Cells Urine Bacteria Urine Mucus Acetone Level 09/16/22 09/16/22 09/16/22 15:40 15:53 17:07 WBC RBC Hgb Hct MCV MCH MCHC RDW Std Deviation RDW Coeff of Marcio Plt Count MPV Immature Gran % (Auto) Neut % (Auto) Lymph % (Auto) [place] % (Auto) Eos % (Auto) Baso % (Auto) Absolute Neuts (auto) Absolute Lymphs (auto) Nucleated RBC % PT INR Sodium Potassium Chloride Carbon Dioxide Anion Gap BUN Creatinine Estim Creat Clear Calc Est GFR (MDRD) Af Amer Est GFR (MDRD) Non-Af BUN/Creatinine Ratio Glucose Lactic Acid 1.9 Calcium Total Bilirubin AST ALT Alkaline Phosphatase Total Protein Albumin Globulin Albumin/Globulin Ratio Urine Color Yellow Urine Clarity Clear Urine pH 5.0 Ur Specific [place] 1.015 Urine Protein Negative Urine Glucose (UA) 1000 H Urine Ketones Negative Urine Occult Blood Negative Urine Nitrite Positive H Urine Bilirubin Negative Urine Urobilinogen Normal Ur Leukocyte Esterase Negative Urine RBC 0 SEEN Urine WBC 0 SEEN Ur Squamous Epith Cells 0 SEEN Urine Bacteria 1+ Urine Mucus 0 SEEN Acetone Level NEGATIVE Radiography Chest X-Ray - ED: 1 View, Read by ED Physician, Heart, Lungs, Mediastinum, Bony Structures, No Acute Disease and Chronic Changes Diagnostic Testing: Clinical Impression(s) from Imaging Studies Brain CT 09/16/22 15:27 IMPRESSION: 1. No acute intracranial abnormality. There has been no significant change from the reference exam. 2. Stable underlying senescent change with small vessel ischemia. Electronically Signed: Nathaniel Lebron MD at 16:54 EST , Chest X-Ray 09/16/22 16:20 IMPRESSION: No radiographic evidence of acute cardiopulmonary disease. Electronically Signed: Nathaniel Lebron MD at 16:44 EST , Chest x-ray, portable, single view shows no acute abnormality. No infiltrate. No effusion. Normal cardiac silhouette. Reviewed by myself. Rhythm Strip Rhythm Strip: Sinus Rhythm Rate: 73 Ectopy: None EKG Initial EKG: Attestation: I personally reviewed and interpreted this EKG as follows: Interpretation: Sinus Rhythm and No Acute Injury Pattern Comments: Normal sinus rhythm rate of 73 no acute signs of ID or ischemia. No significant change from a prior EKG from 2021. Management Discussion w/another healthcare provider: Hospitalist Discharge Plan Triage Chief Complaint: Alt LOC ED Provider: Moncho Thomas Dx/Rx/DC Orders Clinical Impression: Altered level of consciousness, Acute confusion, Unable to ambulate, Hyperglycemia due to diabetes mellitus Prescriptions: No Action ramipril 5 mg capsule 5 mg PO DAILY ropinirole 0.25 mg tablet 0.5 mg PO QHS Rx Instructions: administer 1-3 hours before bedtime omeprazole 40 MG capsule 40 mg PO DAILY Label Comments: STOMACH metformin 500 MG tablet 500 mg PO DAILY donepezil 5 MG tablet 10 mg PO QHS cholecalciferol (vitamin D3) 1,000 UNIT capsule 1,000 unit PO DAILY erythromycin 5 MG/GRAM ointment 1 applicatio EACH EYE DAILY Label Comments: cinnamon bark 500 MG capsule 1,000 mg PO DAILY atorvastatin 80 MG tablet 80 mg PO QHS Qty: 30 0RF clopidogrel 75 MG tablet 75 mg PO DAILY Qty: 30 0RF Hold Instructions: Resume on 09/16/21. irjxsrtr-ezn-ZQ-lycopen-lutein 1 EACH tablet 1 ea PO BID naproxen sodium 220 MG capsule 220 mg PO BID Vitamin C 1 tab PO BID memantine 10 mg tablet 10 mg PO BID Label Comments: TAKE 1 TABLET BY MOUTH TWICE DAILY acetaminophen 500 mg Tablet 1,000 mg PO Q8H PRN PRN (Reason: Pain Score 1-10/Temp > 100.7 F) Qty: 0 0RF melatonin 10 mg Tablet 10 mg PO QHS Creon 36,000-114,000- 180,000 unit capsule,delayed release(DR/EC) See Rx Instructions PO .COMPLEX Qty: 320 0RF Rx Instructions: take 1-2 with snacks and 2-3 with meals Primary Care Provider: Clinton Fowler Referrals: Clinton Fowler DO [Primary Care Provider] - Disposition Disposition: Acute Care Hospital [facility] What to do if you have Problems For any increased pain, shortness of breath, bleeding, nausea or vomiting, chestpain, or any unexpected problems, contact your Primary Care Provider. Call [facility] ([phone]) or report to the closest Emergency Room. Call 911 if necessary. 09/16/22 185 <Electronically signed by Moncho Thomas MD> Cosigner Signature (if applicable): CC: Dr. Clinton Fowler DO ~ Signed [facility] Work Phone: [phone]) 785-381703-04-[address] Thomas [facility] September 16, 2022 6:52pm Note Date/Time September 16, 2022 3:34 pm [facility] Medical Records Department [address] [place] [id number] Emergency Department Summary 09/16/22 MR#: [id number] Acct: [id number] Name: LIZA VELASQUEZ Rep #:[id number] : 1935 87 From: Moncho Thomas MD PCP: Dr. Clinton Fowler DO Status:REG ER Location: ED HPI History of Present Illness Chief Complaint: Alt LOC Informant: patient and EMS Onset/Context/Timing Onset: Days Context: Gradual Onset Timing: Continuous Current Severity: Moderate Maximum Severity: Moderate Narrative Narrative: 87-year-old female reportedly history of dementia, diabetes and prior stroke. Decreased mental status from home. This is per the paramedics. The patient currently is unable to give any history. There is no family present yet at thistime. Prior similar symptoms: No Recent Illness/Hospitalization: No [facility] Medical History Alzheimer disease AMS (altered mental status) Anemia due to stage 3 chronic kidney disease Arthritis Bowel incontinence Chronic diarrhea CPAP (continuous positive airway pressure) dependence Dementia DM (diabetes mellitus), type 2 GERD (gastroesophageal reflux disease) Hearing loss, left Hearing loss, right History of Sjogren's disease History of stroke Nausea and vomiting in adult Non-smoker Noninfective gastroenteritis and colitis, unspecified RLS (restless legs syndrome) Type 2 diabetes mellitus without complications Varicose veins of leg with edema Home Medications omeprazole 40 mg capsule,delayed release 40 mg PO DAILY GERD 01/06/14 [History Last Taken 01/05/14] cholecalciferol (vitamin D3) 25 mcg (1,000 unit) capsule 1,000 unit PO DAILY supplement 08/28/16 [History Last Taken 09/15/22] donepezil 5 mg tablet 10 mg PO QHS memory 08/28/16 [History Last Taken 09/15/22] metformin 500 mg tablet 500 mg PO DAILY blood sugar 08/28/16 [History Last Taken Unknown] cinnamon bark 500 mg capsule 1,000 mg PO DAILY supplement 11/30/17 [History Last Taken 09/15/22] erythromycin 5 mg/gram (0.5 %) eye ointment 1 applicatio EACH EYE DAILY eye ointment 11/30/17 [History Last Taken Unknown] atorvastatin 80 mg tablet 80 mg PO QHS #30 tabs 12/03/17 [Rx Last Taken Unknown] clopidogrel 75 mg tablet 75 mg PO DAILY #30 tabs 12/03/17 [Rx Last Taken 09/15/22] ytzoboeb-mro-gpugx acid 0.4 mg-lycopene 300 mcg-lutein 250 mcg tablet 1 ea PO BID supplement 12/03/18 [History Last Taken 09/15/22] naproxen sodium 220 mg capsule 220 mg PO BID pain 12/03/18 [History Last Taken Unknown] Vitamin C 1 tab PO BID 06/08/19 [History Last Taken 09/15/22] memantine 10 mg tablet 10 mg PO BID 09/11/21 [History Last Taken Unknown] acetaminophen 500 mg tablet 1,000 mg PO Q8H PRN PRN Pain Score 1-10/Temp > 100.7F #0 tabs 09/12/21 [Rx Last Taken Unknown] ramipril 5 mg capsule 5 mg PO DAILY 01/11/22 [History Last Taken Unknown] ropinirole 0.25 mg tablet 0.5 mg PO QHS 01/11/22 [History Last Taken Unknown] melatonin 10 mg tablet 10 mg PO QHS 06/14/22 [History Last Taken 09/15/22] xccbff-ytpqnepy-tjqswob 36,000-114,000-180,000 unit capsule,delay rel (Creon) See Rx Instructions PO .COMPLEX #320 caps 08/28/22 [Rx Last Taken 09/16/22] Allergy/AdvReac Type Severity Reaction Status Date / Time corn pollen Allergy Intermediate unk Uncoded 02/04/22 15:53 Family History Mother Alzheimer disease Brother Alzheimer disease Aunt Alzheimer disease Father Heart disease Surgical History H/O lumpectomy H/O: hysterectomy History of tonsillectomy Social History household members: spouse Smoking Status: Never smoker alcohol intake: never substance use type: does not use ROS ROS ED ROS Narrative Patient unable due to mental status. Review of Systems ROS Unobtainable: due to mental status EXAM Physical Exam Narrative Exam Narrative: 87-year-old female. Vital signs are stable afebrile. Pulse ox 94% on room air no hypoxia. She is in no distress. H EENT exam pupils round react to light. Moist mucous membranes. No obvious trauma to her face or scalp. No facial droop. Neck nontender no meningismus. No lymphadenopathy. Lungs clear to auscultation bilaterally. Heart regular rhythm rate about 80 no murmur. Chest wall nontender. Abdomen soft nontender. Moving all 4 extremities. Nontender no deformities. Neurologically her eyes are open. She is not answering any questions. She is not following commands. There may be some neglect on the left side but she is moving her left arm. Currently she is not speaking so I can assess her speech. Const Vital Signs: 09/16/22 15:20 09/16/22 15:29 Temperature 97.5 F L Temperature Source Temporal Pulse Rate 78 Respiratory Rate 26 H Respiratory Pattern Normal Blood Pressure 154/78 H Blood Pressure Mean 103 Pulse Ox 94 Oxygen Delivery Method Room Air Positive well nourished, well developed and obese; Negative for cachectic, contractures or unkempt General Appearance ED: well developed; Negative for unkempt, cachectic or contractures Nutritional Appearance: obese; Negative for cachectic HEENT Reports moist mucous membranes Negative for trauma or tenderness Eyes PERRL and EOMs intact bilaterally General Eye ED: Negative for pale conjunctiva or scleral icterus Neck no lymphadenopathy, supple and no JVD General: Negative for tenderness Chest Wall inspection of chest normal and palpation of chest normal Resp normal respiratory effort and clear to auscultation bilaterally Effort and Inspection: Negative for retractions Auscultation: Negative for rales, rhonchi or wheezes Cardio regular rate, regular rhythm, S1 normal heart sound, S2 normal heart sound and no murmurs Palpation: Negative for palpable S3 Rate: Negative for bradycardia Rhythm: Negative for abnormal rhythm GI normal to inspection, nondistended, normoactive bowel sounds, non-tender, non-distended and no masses Inspection: Negative for abdominal distention Auscultation: normoactive bowel sounds Palpation: soft; Negative for tender or guarding Back/Spine no CVA tenderness General Back: Negative for CVA tenderness Cervical Spine: Negative for cervical spine tenderness Thoracic Spine / Upper Back: Negative for thoracic spinal tenderness Lumbar Spine / Lower Back: Negative for lumbar spinal tenderness Extremity normal to inspection General Extremety ED: Negative for edema or tenderness General Extremity: Negative for edema Neuro No oriented x3 Sensorium / Orientation: alert and orientation impaired; Negative for lethargic or stuporous Motor Exam: strength 5/5 throughout Psych mental status grossly normal Appearance: Negative for unkempt Skin no rashes or lesions noted and no wounds Lesions: No lesion noted Rashes: No rashes noted Trauma: Negative for abrasion MDM MDM MDM Narrative Medical decision making narrative: 87-year-old female with decreased mental status. This could be from an infectious etiology, electrolyte abnormality, stroke or intracranial event versus other etiologies. CAT scan of her brain labs chest x-ray and EKG will beobtained. She will be given a liter of fluid. She does have diabetes her initial blood sugar is elevated at 420 we will check serum ketones for possible DKA. I suspect she will be admitted. I will speak to the family and review [facility] records when both are available. Patient's did arrive he is in the room with her. He said this is mainlytoday. The last several hours. She has had some recent falls but he says she has never hit her head or been knocked out. She has not been ill. She does getfrequent urinary tract infections. He states this is a significant different from her baseline. Repeat exam at 6:15 PM patient is doing well. She is resting comfortably. She has received a liter of fluid. Her and I went over all of her test results we do not really have any specific diagnosis at this time. I will send a urine culture but she is not having symptoms and not getting treated for UTI right now which has nitrites and 1+ bacteria with no white or red cells nor any symptoms. Organ to ambulate her if she ambulates her is comfortable taking her home if she is difficulty ambulating I will admit her. He states nowshe seems more back to her mental status baseline. Patient was unable to get out of bed and walk. She will be admitted to the hospital. Discussed with her is comfortable with the plan and the hospitalist. History & Record Review Discussion w/independent historian: EMS personnel and Significant other Additional record(s) reviewed:: Prior inpatient record, Prior outpatient record and Prior labs Lab Data Attestation: I reviewed the patient's lab results. Lab results narrative: CBC shows white count 7.5. H&H 11.0 and 35. Platelets 248. PT of 13.6 INR 1.1. Electrolytes show sodium 135 gap is 6 normal BUN of 18 creatinine 1.1. Glucose is elevated at 337 she is diabetic. Liver enzymes are unremarkable. Urinalysis shows positive nitrates and 1+ bacteria but no white or red cells. Chest shows no acute abnormality. Acetone is negative. UA has positive nitrates 1+ bacteria. Culture will be sent. Labs: Laboratory Results - last 24 hr 09/16/22 09/16/22 09/16/22 15:40 15:40 15:40 WBC 7.5 RBC 3.66 L Hgb 11.0 L Hct 35.0 L MCV 95.6 MCH 30.1 MCHC 31.4 L RDW Std Deviation 44.8 H RDW Coeff of Marcio 12.8 Plt Count 248 MPV 10.1 Immature Gran % (Auto) 0.500 Neut % (Auto) 57.8 Lymph % (Auto) 30.3 [place] % (Auto) 8.6 Eos % (Auto) 1.9 Baso % (Auto) 0.9 Absolute Neuts (auto) 4.3 Absolute Lymphs (auto) 2.26 Nucleated RBC % 0 PT 13.6 INR 1.1 Sodium 135 L Potassium 4.3 Chloride 101 Carbon Dioxide 28.0 Anion Gap 6 BUN 18 Creatinine 1.18 H Estim Creat Clear Calc 33.28 Est GFR (MDRD) Af Amer 56 L Est GFR (MDRD) Non-Af 46 L BUN/Creatinine Ratio 15.3 Glucose 337 H Lactic Acid Calcium 9.0 Total Bilirubin 0.40 AST 24 ALT 25 Alkaline Phosphatase 100 Total Protein 6.3 L Albumin 3.0 L Globulin 3.3 Albumin/Globulin Ratio 0.9 Urine Color Urine Clarity Urine pH Ur Specific [place] Urine Protein Urine Glucose (UA) Urine Ketones Urine Occult Blood Urine Nitrite Urine Bilirubin Urine Urobilinogen Ur Leukocyte Esterase Urine RBC Urine WBC Ur Squamous Epith Cells Urine Bacteria Urine Mucus Acetone Level 09/16/22 09/16/22 09/16/22 15:40 15:53 17:07 WBC RBC Hgb Hct MCV MCH MCHC RDW Std Deviation RDW Coeff of Marcio Plt Count MPV Immature Gran % (Auto) Neut % (Auto) Lymph % (Auto) [place] % (Auto) Eos % (Auto) Baso % (Auto) Absolute Neuts (auto) Absolute Lymphs (auto) Nucleated RBC % PT INR Sodium Potassium Chloride Carbon Dioxide Anion Gap BUN Creatinine Estim Creat Clear Calc Est GFR (MDRD) Af Amer Est GFR (MDRD) Non-Af BUN/Creatinine Ratio Glucose Lactic Acid 1.9 Calcium Total Bilirubin AST ALT Alkaline Phosphatase Total Protein Albumin Globulin Albumin/Globulin Ratio Urine Color Yellow Urine Clarity Clear Urine pH 5.0 Ur Specific [place] 1.015 Urine Protein Negative Urine Glucose (UA) 1000 H Urine Ketones Negative Urine Occult Blood Negative Urine Nitrite Positive H Urine Bilirubin Negative Urine Urobilinogen Normal Ur Leukocyte Esterase Negative Urine RBC 0 SEEN Urine WBC 0 SEEN Ur Squamous Epith Cells 0 SEEN Urine Bacteria 1+ Urine Mucus 0 SEEN Acetone Level NEGATIVE Radiography Chest X-Ray - ED: 1 View, Read by ED Physician, Heart, Lungs, Mediastinum, Bony Structures, No Acute Disease and Chronic Changes Diagnostic Testing: Clinical Impression(s) from Imaging Studies Brain CT 09/16/22 15:27 IMPRESSION: 1. No acute intracranial abnormality. There has been no significant change from the reference exam. 2. Stable underlying senescent change with small vessel ischemia. Electronically Signed: Nathaniel Lebron MD at 16:54 EST , Chest X-Ray 09/16/22 16:20 IMPRESSION: No radiographic evidence of acute cardiopulmonary disease. Electronically Signed: Nathaniel Lebron MD at 16:44 EST , Chest x-ray, portable, single view shows no acute abnormality. No infiltrate. No effusion. Normal cardiac silhouette. Reviewed by myself. Rhythm Strip Rhythm Strip: Sinus Rhythm Rate: 73 Ectopy: None EKG Initial EKG: Attestation: I personally reviewed and interpreted this EKG as follows: Interpretation: Sinus Rhythm and No Acute Injury Pattern Comments: Normal sinus rhythm rate of 73 no acute signs of ID or ischemia. No significant change from a prior EKG from 2021. Management Discussion w/another healthcare provider: Hospitalist Discharge Plan Triage Chief Complaint: Alt LOC ED Provider: Moncho Thomas Dx/Rx/DC Orders Clinical Impression: Altered level of consciousness, Acute confusion, Unable to ambulate, Hyperglycemia due to diabetes mellitus Prescriptions: No Action ramipril 5 mg capsule 5 mg PO DAILY ropinirole 0.25 mg tablet 0.5 mg PO QHS Rx Instructions: administer 1-3 hours before bedtime omeprazole 40 MG capsule 40 mg PO DAILY Label Comments: STOMACH metformin 500 MG tablet 500 mg PO DAILY donepezil 5 MG tablet 10 mg PO QHS cholecalciferol (vitamin D3) 1,000 UNIT capsule 1,000 unit PO DAILY erythromycin 5 MG/GRAM ointment 1 applicatio EACH EYE DAILY Label Comments: cinnamon bark 500 MG capsule 1,000 mg PO DAILY atorvastatin 80 MG tablet 80 mg PO QHS Qty: 30 0RF clopidogrel 75 MG tablet 75 mg PO DAILY Qty: 30 0RF Hold Instructions: Resume on 09/16/21. xsqylgrf-myb-GZ-lycopen-lutein 1 EACH tablet 1 ea PO BID naproxen sodium 220 MG capsule 220 mg PO BID Vitamin C 1 tab PO BID memantine 10 mg tablet 10 mg PO BID Label Comments: TAKE 1 TABLET BY MOUTH TWICE DAILY acetaminophen 500 mg Tablet 1,000 mg PO Q8H PRN PRN (Reason: Pain Score 1-10/Temp > 100.7 F) Qty: 0 0RF melatonin 10 mg Tablet 10 mg PO QHS Creon 36,000-114,000- 180,000 unit capsule,delayed release(DR/EC) See Rx Instructions PO .COMPLEX Qty: 320 0RF Rx Instructions: take 1-2 with snacks and 2-3 with meals Primary Care Provider: Clinton Fowler Referrals: Clinton Fowler DO [Primary Care Provider] - Disposition Disposition: Acute Care Hospital [facility] What to do if you have Problems For any increased pain, shortness of breath, bleeding, nausea or vomiting, chestpain, or any unexpected problems, contact your Primary Care Provider. Call [facility] ([phone]) or report to the closest Emergency Room. Call 911 if necessary. 09/16/22 185 <Electronically signed by Moncho Thomas MD> Cosigner Signature (if applicable): CC: Dr. Clinton Fowler DO ~ Signed [facility] Work Phone: Discharge summary Author Dr. Verma [facility] September 20, 2022 4:56pm Note Date/Time September 20, 2022 4:56 pm [facility] Medical Records Department [address] [place] [id number] Discharge Summary 09/20/22 1643 MR#: [id number] Acct: [id number] Name: LIZA VELASQUEZ Rep #:[id number] : 1935 87 From: Isa Verma MD PCP: Dr. Clinton Fowler DO Status:ADM IN Location: [place] [address] Providers Date of Admission: 09/16/22 Date of Discharge: 09/20/22 Primary Care Physician: Dr. Clinton Fowler DO Diagnosis Discharge Diagnosis (1) Hyperglycemia: Status: Acute Code(s): R73.9 - Hyperglycemia, unspecified (2) Mental status alteration: Status: Acute Code(s): R41.82 - Altered mental status, unspecified (3) Falls: Status: Acute Code(s): W19.XXXA - Unspecified fall, initial encounter (4) CVA (cerebral vascular accident): Status: Chronic Code(s): I63.9 - Cerebral infarction, unspecified Plan #Acute CVA * She was admitted with a complaint of altered mental status. CT of the brain showed no acute intracranial pathology. 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 * Patient already on Plavix and high intensity statin. We will add on aspirin. * Neurology reviewed patient and recommended that in light of patient's worsening dementia, there was not much to offer in terms of any additional therapy for the stroke. Neurology recommended that a goals of care discussion should be had with the family. I did speak to patient's Mr. Mat Velasquez today who said his goal was to take her home and take care of her at home. He was understanding of that the fact that her dementia was worsening and his goal was to make her comfortable and take care of her at home. * She did have 2D echo back in June 2022 which showed a tiny PFO. This will warrant aspirin being added on. * PT/OT on board. fall precautions * #Acute metabolic encephalopathy * thought to be due to worsening dementia. However, acute CVA may also be playing a role in light of the recent MRI dingdings * PT/OT on board. * Fall precautions. * she is back to her baseline and able to communicate and answer questions. * #Type 2 diabetes mellitus * Was found to be hyperglycemic during this admission. * Of note patient was hypoglycemic on presentation when she was admitted and evaluated in June 2022. O * n account of the hypoglycemia her glipizide was discontinued on admission. * Her A1c was also 6.1 at that time. * A1c for this admission pending. Currently on metformin. * We will adjust dose of medication as needed. * #GERD: On PPI #Hypertension: Hold BP meds to allow for permissive hypertension #Hyperlipidemia: On high intensity statin #Dementia: On memantine #Restless leg syndrome: On ropinirole DVT prophylaxis: Lovenox Disposition: Anticipate discharge home by tomorrow depending on how she is doingwith therapy. Medications at Discharge Home Medications omeprazole 40 mg capsule,delayed release 40 mg PO DAILY GERD 01/06/14 cholecalciferol (vitamin D3) 25 mcg (1,000 unit) capsule 1,000 unit PO DAILY supplement 08/28/16 donepezil 5 mg tablet 10 mg PO QHS memory 08/28/16 metformin 500 mg tablet 500 mg PO DAILY blood sugar 08/28/16 cinnamon bark 500 mg capsule 1,000 mg PO DAILY supplement 11/30/17 erythromycin 5 mg/gram (0.5 %) eye ointment 1 applicatio EACH EYE DAILY eye ointment 11/30/17 atorvastatin 80 mg tablet 80 mg PO QHS #30 tabs 12/03/17 clopidogrel 75 mg tablet 75 mg PO DAILY #30 tabs 12/03/17 oddzzlty-mak-cxynm acid 0.4 mg-lycopene 300 mcg-lutein 250 mcg tablet 1 ea PO BID supplement 12/03/18 naproxen sodium 220 mg capsule 220 mg PO BID pain 12/03/18 Vitamin C 1 tab PO BID 06/08/19 memantine 10 mg tablet 10 mg PO BID Check with primary doctor 09/11/21 acetaminophen 500 mg tablet 1,000 mg PO Q8H PRN PRN Pain Score 1-10/Temp > 100.7F #0 tabs 09/12/21 ramipril 5 mg capsule 5 mg PO DAILY Check with primary doctor 01/11/22 ropinirole 0.25 mg tablet 0.5 mg PO QHS Check with primary doctor 01/11/22 melatonin 10 mg tablet 10 mg PO QHS 06/14/22 otdvab-fuqqqgvp-dfcsafg 36,000-114,000-180,000 unit capsule,delay rel (Creon) See Rx Instructions PO .COMPLEX #320 caps 08/28/22 modafinil 100 mg tablet 100 mg PO DAILY Check with primary doctor 09/16/22 aspirin 81 mg chewable tablet 81 mg PO BREAKFAST #30 tabs 09/20/22 Hospital Course Operations None Summary of Care Provided Minutes Spent on Discharge: 50 Hospital Course: Patient is an 87-year-old female with a past medical history as outlined was admitted through the ED on 09/16/2022 with a complaint of altered mental status. Patient has significant baseline dementia but is usually alert and oriented to self. noted that she was getting more confused and slower than she was at her baseline and that had to falls in the week prior to admission. Both withhad happened within a 24-hour period. Patient had recently been admitted in June 2022 with concerns for stroke and was found to be hypoglycemic. Her glipizide was discontinued at that time. was worried that her blood sugars have been running high at home. CT of the brain on admission showed no acute intracranial pathology and chest x-ray showed no evidence of infection. Urinalysis also showed no evidence of infection. She was admitted and managed for altered mental status. She did have an MRI of the brain which showed acute lacunar ischemic infarct in the medial aspect of the right posterior ventricularmatter with evidence of old infarcts as well. Aspirin was added on her to have Plavix and high intensity statin. She had had a 2D echo in June 2022 and sorepeat was not done this time. She had also had a CTA head and neck in ich was negative so this was also not repeated. Neurology was consulted and reviewed patient and felt in light of her worsening dementia, there was no further management that could be offered and recommended that goals of care discussion were had with her . I did discuss goals of care with patient's and he stated that he was aware that patient was declining from his dementia and his goal was to maintain a quality of life. He wanted to take him home where he will care for here on his own. Patient was discharged home on 09/20/2022. She was discharged with home health care and she is to follow-up with her primary care doctor within 1 to 2 weeks. Patient seen and examined prior to discharge. She had no active complaints. She was confused but could communicate. Her creatinine was noted to have trended up slightly to 1.28. She was hydrated with IV fluids normal saline and encouraged to hydrate well orally. She is to follow-up with her primary care doctor for repeat BMP within 2-3 days to monitor her creatinine. Physical Exam Const alert, no apparent distress, healthy appearing and well nourished Constitutional Narrative: baseline confusion, but can answer some questions General Appearance: cooperative and comfortable Orientation / Consciousness: awake Exam Limitations: altered mental status HEENT normocephalic, head/scalp atraumatic, hearing grossly normal bilaterally, moist oral mucous membranes and oropharynx normal Mouth: oral and palatal mucosa normal Eyes PERRL, EOMs intact bilaterally and conjunctivae normal Eyes Narrative: No scleral icterus Neck no lymphadenopathy, supple, no JVD and no carotid bruits Neck Narrative: Trachea midline Resp normal respiratory effort, no retractions, no use of accessory muscles and clearto auscultation bilaterally Auscultation: Negative for rales, rhonchi or wheezes Cardio regular rate, regular rhythm, S1 normal heart sound, S2 normal heart sound, no murmurs, no rub, no gallops and no clicks GI normal to inspection, nondistended, normoactive bowel sounds, soft to palpation,non-tender and non-distended Extremity normal capillary refill and no clubbing, cyanosis or edema Extremity Narrative: 2+ pedal pulses, 2+ radial pulses Skin no wounds, skin turgor normal, no jaundice, no petechiae and no mottling General Skin Exam: no breakdown Neuro CN's II-XII intact bilaterally, no focal motor deficits and no sensory deficits noted Sensorium / Orientation: awake and alert Speech: speech normal Motor Exam: strength 5/5 throughout Psych Negative for affect normal Appearance: appropriate Weight / BMI Weight Weight: 186 lb 1.122 oz Body Mass Index (BMI) 26.6 ABG / Lab / Microbiology Data Result Diagrams: 09/20/22 04:01 09/20/22 04:01 Laboratory: Laboratory Results - last 24 hr 09/19/22 17:03: POC Glucose 263 H 09/19/22 23:07: POC Glucose 333 H 09/20/22 04:01: WBC 10.7, RBC 3.79 L, Hgb 11.3 L, Hct 34.4 L, MCV 90.8, MCH 29.8, MCHC 32.8, RDW Std Deviation 42.7, RDW Coeff of Marcio 12.8, Plt Count 237, MPV 10.3, Immature Gran % (Auto) 0.400, Neut % (Auto) 63.8, Lymph % (Auto) 23.9,[place] % (Auto) 9.7, Eos % (Auto) 1.5, Baso % (Auto) 0.7, Absolute Neuts (auto) 6.8, Absolute Lymphs (auto) 2.55, Nucleated RBC % 0 09/20/22 04:01: Sodium 135 L, Potassium 3.6, Chloride 102, Carbon Dioxide 25.0, Anion Gap 8, BUN 26 H, Creatinine 1.24 H, Estim Creat Clear Calc 35.22, Est GFR (MDRD) Af Amer 53 L, Est GFR (MDRD) Non-Af 44 L, BUN/Creatinine Ratio 21.0 H, Glucose 253 H, Calcium 9.1 09/20/22 06:58: POC Glucose 216 H 09/20/22 11:44: POC Glucose 279 H Microbiology: Microbiology 09/16/22 17:07 Blood Culture (Wb) - Line Draw Blood Culture - Preliminary No growth in 48 hours. 09/16/22 15:40 Blood Culture (Wb) - Anticubital Right Blood Culture - Preliminary Possible Fungus 09/16/22 15:53 Urine Catheter - Catheter Urine Culture - Final Escherichia coli D/C Instructions Discharge Diet: Low fat / Low cholesterol Discharge Activity: Return to Normal Activity Weight Bearing Status: Weight bearing as tolerated Call your doctor if you observe: Fever of 101 or Higher, Shortness of breath andDizziness Meaningful Use Info Meaningful Use Diagnoses (Choose all that apply): Ischemic CVA CVA Therapy Assessed for PT,OT and/or ST?: Yes Ischemic Stroke Antithrombotic order at d/c?: Yes Dx of Atrial fib/flutter?: No Statins at discharge?: Yes Primary Dx Acute Ischemic CVA?: Yes IV tPA ordered during stay?: No Reason IV t-PA not ordered: Medical Contraindication and Treatment not Indicated Discharge Plan Admission Admit Date/Time: 09/16/22 19:30 Primary Reason for Your Visit: acute CVA Attending Provider: Isa Verma Primary Care Provider: Clinton Fowler Consulting Providers: Estrella Buckner ; Maria D Chawla Instructions Patient Instructions: Discharge Instructions for Stroke Discharge Orders/Prescriptions Prescriptions: New aspirin 81 mg Tablet,Chewable 81 mg PO BREAKFAST Qty: 30 1RF Continued ramipril 5 mg capsule 5 mg PO DAILY ropinirole 0.25 mg tablet 0.5 mg PO QHS Rx Instructions: administer 1-3 hours before bedtime omeprazole 40 MG capsule 40 mg PO DAILY Label Comments: STOMACH metformin 500 MG tablet 500 mg PO DAILY donepezil 5 MG tablet 10 mg PO QHS cholecalciferol (vitamin D3) 1,000 UNIT capsule 1,000 unit PO DAILY erythromycin 5 MG/GRAM ointment 1 applicatio EACH EYE DAILY Label Comments: Rx Instructions: it is to go around eye not in the eye per cinnamon bark 500 MG capsule 1,000 mg PO DAILY atorvastatin 80 MG tablet 80 mg PO QHS Qty: 30 0RF clopidogrel 75 MG tablet 75 mg PO DAILY Qty: 30 0RF Hold Instructions: Resume on 09/16/21. bpuczanr-omf-ZD-lycopen-lutein 1 EACH tablet 1 ea PO BID naproxen sodium 220 MG capsule 220 mg PO BID Vitamin C 1 tab PO BID memantine 10 mg tablet 10 mg PO BID Label Comments: TAKE 1 TABLET BY MOUTH TWICE DAILY acetaminophen 500 mg Tablet 1,000 mg PO Q8H PRN PRN (Reason: Pain Score 1-10/Temp > 100.7 F) Qty: 0 0RF melatonin 10 mg Tablet 10 mg PO QHS modafinil 100 mg Tablet 100 mg PO DAILY Creon 36,000-114,000- 180,000 unit capsule,delayed release(DR/EC) See Rx Instructions PO .COMPLEX Qty: 320 0RF Rx Instructions: take 1-2 with snacks and 2-3 with meals Referrals / Follow Up: Clinton Fowler DO [Primary Care Provider] - Within 2 Weeks Disposition Disposition (needs filled in before D/C Order can be placed): Home Health Service Charges/Coding Visit Charges Inpatient E&M: 59168 Disch Hosp >30min 09/20/226 <Electronically signed by Isa Verma MD> Cosigner Signature (if applicable): CC: Dr. Clinton Fowler DO; Dr. Isa Verma MD~ Signed [facility] Work Phone: Discharge summary Author Dr. Verma [facility] September 20, 2022 4:58pm Note Date/Time September 20, 2022 4:58 pm [facility] Medical Records Department [address] [place] [address] Instructions for Home/Discharge Instructions 09/20/22 1657 MR#: [id number] Acct: [id number] Name: LIZA VELASQUEZ Rep #:[id number] : 1935 87 From: Isa Verma MD PCP: Dr. Clinton Fowler DO Status:ADM IN Discharge Instructions Diet Discharge Diet: Low fat / Low cholesterol Activity Discharge Activity: Return to Normal Activity Weight Bearing Status: Weight bearing as tolerated Dressing / Incision Call your doctor if you observe: Fever of 101 or Higher, Shortness of breath andDizziness Follow Up Care Test Results: Test results from this visit will be discussed in further detail at your follow- up appointment, if applicable. Discharge Plan Admission Admit Date/Time: 09/16/22 19:30 Primary Reason for Your Visit: acute CVA Attending Provider: Isa Verma Primary Care Provider: Clinton Fowler Consulting Providers: Estrella Buckner ; Maria D Chawla Instructions Patient Instructions: Discharge Instructions for Stroke Discharge Orders/Prescriptions Prescriptions: New aspirin 81 mg Tablet,Chewable 81 mg PO BREAKFAST Qty: 30 1RF Continued ramipril 5 mg capsule 5 mg PO DAILY ropinirole 0.25 mg tablet 0.5 mg PO QHS Rx Instructions: administer 1-3 hours before bedtime omeprazole 40 MG capsule 40 mg PO DAILY Label Comments: STOMACH metformin 500 MG tablet 500 mg PO DAILY donepezil 5 MG tablet 10 mg PO QHS cholecalciferol (vitamin D3) 1,000 UNIT capsule 1,000 unit PO DAILY erythromycin 5 MG/GRAM ointment 1 applicatio EACH EYE DAILY Label Comments: Rx Instructions: it is to go around eye not in the eye per cinnamon bark 500 MG capsule 1,000 mg PO DAILY atorvastatin 80 MG tablet 80 mg PO QHS Qty: 30 0RF clopidogrel 75 MG tablet 75 mg PO DAILY Qty: 30 0RF Hold Instructions: Resume on 09/16/21. vnrstrkf-utu-XL-lycopen-lutein 1 EACH tablet 1 ea PO BID naproxen sodium 220 MG capsule 220 mg PO BID Vitamin C 1 tab PO BID memantine 10 mg tablet 10 mg PO BID Label Comments: TAKE 1 TABLET BY MOUTH TWICE DAILY acetaminophen 500 mg Tablet 1,000 mg PO Q8H PRN PRN (Reason: Pain Score 1-10/Temp > 100.7 F) Qty: 0 0RF melatonin 10 mg Tablet 10 mg PO QHS modafinil 100 mg Tablet 100 mg PO DAILY Creon 36,000-114,000- 180,000 unit capsule,delayed release(DR/EC) See Rx Instructions PO .COMPLEX Qty: 320 0RF Rx Instructions: take 1-2 with snacks and 2-3 with meals Referrals / Follow Up: Clinton Fowler DO [Primary Care Provider] - Within 2 Weeks Disposition Disposition (needs filled in before D/C Order can be placed): Home Health Service 09/20/22 0847<Electronically signed by Isa Verma MD>Isa Verma MD CC: Dr. Estrella Buckner DO; Dr. Clinton Fowler DO; Dr. Maria D Chawla MD ~ Signed [facility] Work Phone: Discharge summary Author Sixto Braswell [facility] January 14, 2023 1:41pm Note Date/Time January 14, 2023 1:38p m [facility] Medical Records Department [address] [place] [address] Instructions for Home/Discharge Instructions 01/14/23 1335 MR#: [id number] Acct: [id number] Name: LIZA VELASQUEZ Rep #:[id number] : 1935 87 From: Sixto Braswell DO PCP: Dr. Clinton Fowler DO Status:ADM IN Discharge Instructions Diet Discharge Diet: No restrictions Dressing / Incision Call your doctor if you observe: - (recurrent bloody BMS. ) Follow Up Care Test Results: Test results from this visit will be discussed in further detail at your follow- up appointment, if applicable. Discharge Plan Admission Admit Date/Time: 01/12/23 14:12 Primary Reason for Your Visit: GI bleed. Attending Provider: Sixto Braswell Primary Care Provider: Clinton Fowler Instructions Additional Instructions / Restrictions: You had a GI bleed. You will stop your Plavix. Resume aspirin in 3-4 days. Discharge Orders/Prescriptions Prescriptions: Continued ramipril 5 mg capsule 5 mg PO DAILY ropinirole 0.25 mg tablet 0.5 mg PO QHS Rx Instructions: administer 1-3 hours before bedtime omeprazole 40 MG capsule 40 mg PO DAILY Patient Comments: STOMACH metformin 500 MG tablet 500 mg PO DAILY donepezil 5 MG tablet 10 mg PO QHS cholecalciferol (vitamin D3) 1,000 UNIT capsule 1,000 unit PO DAILY cinnamon bark 500 MG capsule 1,000 mg PO DAILY atorvastatin 80 MG tablet 80 mg PO QHS Qty: 30 0RF vhibvpul-cav-CJ-lycopen-lutein 1 EACH tablet 1 ea PO BID Vitamin C 1 tab PO BID memantine 10 mg tablet 10 mg PO BID Patient Comments: TAKE 1 TABLET BY MOUTH TWICE DAILY modafinil 100 mg Tablet 200 mg PO DAILY glipizide 5 mg tablet 2.5 mg PO BID Patient Comments: TAKE 1/2 (ONE-HALF) TO 1 (ONE) TABLET BY MOUTH TWICE DAILY DIRECTED Rx Instructions: 2.5MG TO 5MG BID UD Creon 36,000-114,000- 180,000 unit capsule,delayed release(DR/EC) See Rx Instructions PO .COMPLEX Qty: 320 11RF Rx Instructions: take 1-2 with snacks and 2-3 with meals Held aspirin 81 mg Tablet,Chewable 81 mg PO BREAKFAST Qty: 30 1RF Hold Instructions: Resume on 01/18/23. Discontinued clopidogrel 75 MG tablet 75 mg PO DAILY Qty: 30 0RF Hold Instructions: Resume on 09/16/21. naproxen sodium 220 MG capsule 220 mg PO BID Referrals / Follow Up: Clinton Fowler DO [Primary Care Provider] - Within 2 Weeks Disposition Disposition (needs filled in before D/C Order can be placed): Home, Self Care 01/14/23 1341<Electronically signed by Sixto Braswell DO>Sixto Braswell DO CC: Dr. Clinton Fowler DO ~ Signed [facility] Work Phone: Discharge summary Author [facility] January 14, 2023 1:43pm Note Date/Time January 14, 2023 1:43p m [facility] Medical Records Department [address] [place] [id number] Discharge Summary 01/14/23 1341 MR#: [id number] Acct: [id number] Name: LIZA VELASQUEZ Rep #:[id number] : 1935 87 From: Sixto Braswell DO PCP: Dr. Clinton Fowler DO Status:ADM IN [id number] Providers Date of Admission: 01/12/23 Primary Care Physician: Dr. Clinton Fowler DO Consultations 01/12/23 16:57 Consult: Gastroenterology Routine Consulting Provider: [facility] Reason for Consult: GI bleed EMERGENT Consult: No MD Notified: Yes Date Notified: 01/12/23 Time Notified: 14:17 Method of Notification: ED Physician Initiated Reason For Visit: GI BLEED Diagnosis Discharge Diagnosis (1) GI bleed: Status: Acute Code(s): K92.2 - Gastrointestinal hemorrhage, unspecified Qualifiers: GI bleed type/associated pathology: diverticulosis Qualified Code(s): K57.91 - Diverticulosis of intestine, part unspecified, without perforation or abscess with bleeding Plan: Resolved Suspected due to diverticular bleed. CAT scan showed sigmoid diverticulosis. Hold aspirin and clopidogrel for now. Clear liquid diet Seen by GI, recommending to hold antiplatelets for now. No intervention at this time. (2) Delirium: Status: Acute Code(s): R41.0 - Disorientation, unspecified Plan: Hypoactive This is in a patient with ongoing dementia and has had history of stroke. Nothing focal to suggest stroke at this time. Head CT has been ordered (3) Acute blood loss anemia: Status: Acute Code(s): D62 - Acute posthemorrhagic anemia Plan: Hg went from 10.1 to 8.5 (had been 11.3 in September) Today, it is 9. Monitor No indication for TF at this time. (4) CVA (cerebral vascular accident): Status: Acute Code(s): I63.9 - Cerebral infarction, unspecified Qualifiers: CVA mechanism: thrombosis Precerebral and cerebral artery: unspecified precerebral artery Qualified Code(s): I63.00 - Cerebral infarction due to thrombosis of unspecified precerebral artery Plan: Chronic. No acute concerns. I reviewed neuro consult from 09/18/22. The neurologist did not feel the CVA identified was causing her neurological symptoms at that time, but more likely progression of dementia. She had been on clopidogrel at that time. Aspirin was later added. Given the severe GI bleed, advanced dementia, the risk of dual antiplatelet therapy outweigh the risks. Will resume ASA in 72 hours (96 hours after last bleed). No additional clopidogrel. Plan Chronic conditions * Dementia: Hold memantine as well as donezepil for now given the delirium. * Sjogren's VTE prophylaxis with SCDs. Chemical prophylaxis contraindicated in light of GI bleed. CODE STATUS: Addressed with the patient's , who is her power of criminal attorney,patient is to be DNR Comfort Care arrest. Discharge home. Medications at Discharge Home Medications omeprazole 40 mg capsule,delayed release 40 mg PO DAILY GERD 01/06/14 cholecalciferol (vitamin D3) 25 mcg (1,000 unit) capsule 1,000 unit PO DAILY supplement 08/28/16 donepezil 5 mg tablet 10 mg PO QHS memory 08/28/16 metformin 500 mg tablet 500 mg PO DAILY blood sugar 08/28/16 cinnamon bark 500 mg capsule 1,000 mg PO DAILY supplement 11/30/17 atorvastatin 80 mg tablet 80 mg PO QHS #30 tabs 12/03/17 aynoxbqy-jwq-dotbv acid 0.4 mg-lycopene 300 mcg-lutein 250 mcg tablet 1 ea PO BID supplement 12/03/18 Vitamin C 1 tab PO BID 06/08/19 memantine 10 mg tablet 10 mg PO BID Check with primary doctor 09/11/21 ramipril 5 mg capsule 5 mg PO DAILY Check with primary doctor 01/11/22 ropinirole 0.25 mg tablet 0.5 mg PO QHS Check with primary doctor 01/11/22 modafinil 100 mg tablet 200 mg PO DAILY Check with primary doctor 09/16/22 aspirin 81 mg chewable tablet 81 mg PO BREAKFAST #30 tabs 09/20/22 ugyirh-hskcqpeu-zhtnfly 36,000-114,000-180,000 unit capsule,delay rel (Creon) See Rx Instructions PO .COMPLEX #320 caps 10/13/22 glipizide 5 mg tablet 2.5 mg PO BID DM 01/12/23 Hospital Course Operations None Procedures None Summary of Care Provided Minutes Spent on Discharge: 32 Hospital Course: Presents with GI bleed. Patient presented with adalberto bleeding. Conservative measures were entertained as this was felt to be diverticular. Her aspirin and clopidogrel were held. Patient had another bout after being admitted but remained stable. Hemoglobin did remain stable and did not require any transfusion. Patient does have advanced dementia and has issues with delirium. Patient was admitted with a stroke back in September and was recommendation by neurology at that time that her stroke at that time was not contributing to her acute mental status change. They did recommend goals of care. Patient will be held off on her Plavix moving forward as the risks outweigh the benefits. Patient will resume her aspirin in about 3 to 4 days. Patient was seen by gastroenterology here and given her advanced dementia was deemed not a candidatefor any additional interventions. Medical Records Data Medical Nutrition Assessment Dietitian: Malnutrition Criteria Met Start: 01/13/23 15:15 Freq: Status: Active Protocol: Document 01/13/23 15:16 TIRSO (Rec: 01/13/23 15:16 TIRSO [id number]) Nutrition Malnutrition Evidence of Malnutrition Exists Yes Malnutrition (severe): Chronic Evidenced By Weight Loss (Severe),Physical Changes (Moderate),Physical Changes (Severe) Clinical Problem Chronic Disease or Condition Related Malnutrition Etiology related to physiological changes increasing nutrient needs and/or limiting oral intakes Signs/Symptoms as evidenced by significant unintentional weight loss of 12.9% in ~4 months and moderate to severe fat and muscle wasting per NFPA findings. Status Active Problem Recommendation Dietitian Recommendations/Changes Recommend Ensure Clear Apple 3x/day with meals to help increase oral intakes and limit further weight loss while on Clear Liquids. Recommend diet advancement when appropriate to Transitional. Will continue following the pt and monitoring oral intakes. Weight / BMI Weight Weight: 73.5 kg Body Mass Index (BMI) 23.2 ABG / Lab / Microbiology Data 01/14/23 12:04 01/14/23 05:30 Laboratory: Laboratory Results - last 24 hr 01/13/23 17:45: Hgb 9.1 L, Hct 27.3 L 01/14/23 05:30: WBC 7.5, RBC 2.89 L, Hgb 9.0 L, Hct 26.9 L, MCV 93.1, MCH 31.1, MCHC 33.5, RDW Std Deviation 44.9 H, RDW Coeff of Marcio 13.2, Plt Count 197, MPV 10.2, Immature Gran % (Auto) 0.400, Neut % (Auto) 54.5, Lymph % (Auto) 31.1, [place] % (Auto) 9.1, Eos % (Auto) 3.6, Baso % (Auto) 1.3 H, Absolute Neuts (auto) 4.1, Absolute Lymphs (auto) 2.33, Nucleated RBC % 0, Sodium 143, Potassium 3.8, Chloride 114 H, Carbon Dioxide 25.0, Anion Gap 4 L, BUN 16, Creatinine 0.88, Estim Creat Clear Calc 49.62, Est GFR (MDRD) Af Amer 78, Est GFR (MDRD) Non-Af 64, BUN/Creatinine Ratio 18.1, Glucose 109 H, Calcium 8.6 01/14/23 12:04: Hgb 9.3 L Microbiology: Microbiology 01/12/23 15:04 Stool Stool Lactoferrin - Final 01/12/23 15:04 Stool Enteric Bacteriology - Final 01/12/23 15:04 Stool C. difficile DNA Amplification - Final 01/12/23 12:22 Stool Stool Occult Blood (JIMI) - Final Occult Blood Positive D/C Instructions Discharge Diet: No restrictions Call your doctor if you observe: - (recurrent bloody BMS. ) Meaningful Use Info Meaningful Use Diagnoses (Choose all that apply): None applicable Discharge Plan Admission Admit Date/Time: 01/12/23 14:12 Primary Reason for Your Visit: GI bleed. Attending Provider: Sixto Braswell Primary Care Provider: Clinton Fowler Instructions Additional Instructions / Restrictions: You had a GI bleed. You will stop your Plavix. Resume aspirin in 3-4 days. Discharge Orders/Prescriptions Prescriptions: Continued ramipril 5 mg capsule 5 mg PO DAILY ropinirole 0.25 mg tablet 0.5 mg PO QHS Rx Instructions: administer 1-3 hours before bedtime omeprazole 40 MG capsule 40 mg PO DAILY Patient Comments: STOMACH metformin 500 MG tablet 500 mg PO DAILY donepezil 5 MG tablet 10 mg PO QHS cholecalciferol (vitamin D3) 1,000 UNIT capsule 1,000 unit PO DAILY cinnamon bark 500 MG capsule 1,000 mg PO DAILY atorvastatin 80 MG tablet 80 mg PO QHS Qty: 30 0RF ncpyquks-ctc-YR-lycopen-lutein 1 EACH tablet 1 ea PO BID Vitamin C 1 tab PO BID memantine 10 mg tablet 10 mg PO BID Patient Comments: TAKE 1 TABLET BY MOUTH TWICE DAILY modafinil 100 mg Tablet 200 mg PO DAILY glipizide 5 mg tablet 2.5 mg PO BID Patient Comments: TAKE 1/2 (ONE-HALF) TO 1 (ONE) TABLET BY MOUTH TWICE DAILY DIRECTED Rx Instructions: 2.5MG TO 5MG BID UD Creon 36,000-114,000- 180,000 unit capsule,delayed release(DR/EC) See Rx Instructions PO .COMPLEX Qty: 320 11RF Rx Instructions: take 1-2 with snacks and 2-3 with meals Held aspirin 81 mg Tablet,Chewable 81 mg PO BREAKFAST Qty: 30 1RF Hold Instructions: Resume on 01/18/23. Discontinued clopidogrel 75 MG tablet 75 mg PO DAILY Qty: 30 0RF Hold Instructions: Resume on 09/16/21. naproxen sodium 220 MG capsule 220 mg PO BID Referrals / Follow Up: Clinton Fowler DO [Primary Care Provider] - Within 2 Weeks Disposition Disposition (needs filled in before D/C Order can be placed): Home, Self Care Charges/Coding Visit Charges Inpatient E&M: 31646 Disch Hosp >30min 01/14/23 1343 <Electronically signed by Sixto Braswell DO> Cosigner Signature (if applicable): CC: Dr. Sixto Braswell DO; Dr. Clinton Fowler DO~ Signed [facility] Work Phone: evaluation noteNo assessment information available [facility] Work Phone: evaluation note* Diagnosis Onset Date Resolution Status AMS (altered mental status) acute Hypoglycemia acute Stroke-like symptoms acute Dementia chronic DM (diabetes mellitus), type 2 chronic [facility] Work Phone: Evaluation note* Diagnosis Onset Date Resolution Status Hypoglycemia resolved Stroke-like symptoms resolve d Loose stools chronic [facility] Work Phone: Evaluation note* Diagnosis Onset Date Resolution Status Hypoglycemia resolved Stroke-like symptoms resolve d Loose stools chronic Falls acute Hyperglycemia acute Mental status alteration acu te [facility] Work Phone: Evaluation note* Diagnosis Onset Date Resolution Status Hypoglycemia resolved Stroke-like symptoms resolve d Loose stools chronic Falls acute Hyperglycemia acute Mental status alteration acu te CVA (cerebral vascular accident) chronic [facility] Work Phone: Evaluation note* Diagnosis Onset Date Resolution Status Loose stools chronic Hyperglycemia resolved [facility] Work Phone: Evaluation note* Diagnosis Onset Date Resolution Status CVA (cerebral vascular accident) acute Hyperglycemia resolved Exocrine pancreatic insufficiency chronic Acute blood loss anemia acut e Alzheimer disease acute Anemia acute Bright red rectal bleeding a cute CVA (cerebral vascular accident) acute Delirium acute GI bleed acute Weakness acute Exocrine pancreatic insufficiency chronic [facility] Work Phone: Evaluation note* Diagnosis Onset Date Resolution Status Weakness acute Acute blood loss anemia reso lved Bright red rectal bleeding r esolved Delirium resolved GI bleed resolved [facility] Work Phone: Evaluation note* Diagnosis Onset Date Resolution Status Cough acute Viral upper respiratory illness acute Chronic anemia chronic Exocrine pancreatic insufficiency chronic GI bleed resolved [facility] Work Phone: Evaluation note* Diagnosis TOBY (obstructive sleep apnea)- Primary Obstructive sleep apnea (adult) (pediatric) PLMD (periodic limb movement disorder) Periodic limb movement disorder Dementia without behavioral disturbance (Multi) Hypersomnia Hypersomnia, unspecified documented in this encounter [facility] Work Phone: History and physical note Author Dr. Bucnker [facility] September 16, 2022 8:11pm Note Date/Time September 16, 2022 6:43 pm [facility] Medical Records Department [address] [place] [id number] H&P Exam - Hospitalist 09/16/22 1839 MR#: [id number] Acct: [id number] Name: LIZA VELASQUEZ Rep #:[id number] : 1935 87 From: Estrella Buckner DO PCP: Dr. Clinton Fowler DO Status:ADM IN Location: [facility] [id number] HPI - General General Date of Admission: 09/16/22 Date of Service: 09/16/22 Chief Complaint: MS Changes HPI Narrative LIZA VELASQUEZ, is a 87 F who presented to the emergency department at [facility] with her on 09/16/2022 after she was acting abnormally at home. She has fairly significant dementia at baseline and typically is alertand oriented to herself only. Her states she has good days and bad days, for example on Rg's Day she did not know who he was however earliertoday she was able to call him by name. It sounds as if she has been having some slow decline over the past several months however she is able to eat independently and take her meds. He helped significantly with her care. Today she was more confused and slower than she had been at baseline. She evidently had had 2 falls in the past week with no injuries. Both falls happened within [id number] period. She ambulates in the home by holding onto furniture but has a quad cane and a wheeled walker as well. She uses both of these intermittently. She had a recent admission here early in June 2022 when there was can some concern for stroke and she was found to be hypoglycemic at that time. She was taken off her glipizide and maintained on metformin. Her does show acute sugars at home and they have been higher than usual with the discontinuation of the glipizide. He did admit to giving her grape juice beforeshe came and saw her blood sugar is higher than it had been at home. After talking to it sounds as if maybe she has declined some with regards to her dementia. Vital signs on presentation showed a temperature of 97.5, heart rate of 78, blood pressure 154/78, respiratory rate was 18 and sats were 95% on room air. Chemistry panel shows a chronic stable anemia but was otherwise unremarkable. Coags are normal. Chemistry shows a mild hyponatremia with a sodium of 135 which appears to be close to her baseline as this fluctuates for her. Serum creatinine was 1.18 which seems to be close to her baseline. Serum glucose was markedly elevated however at 337. Lactic acid was normal. Liver function was normal. TSH was 2.42. Her UA showed glucose urea and was positive for nitritesbut negative for leuk esterase and white cells. Acetone was negative. CT of the brain showed no acute intercranial abnormality with no significant change from previous exam and stable underlying senescent changes with small vessel ischemia. Chest x-ray was unremarkable for any acute processes. EKG showed normal sinus rhythm with normal intervals and no ST-T wave changes concerning for acute ischemia. No significant findings were found while she was in the emergency department however the patient was not able to get up and move around well and this prohibited the from taking her home. [facility] Medical History Alzheimer disease AMS (altered mental status) Anemia due to stage 3 chronic kidney disease Arthritis Bowel incontinence Chronic diarrhea CPAP (continuous positive airway pressure) dependence Dementia DM (diabetes mellitus), type 2 GERD (gastroesophageal reflux disease) Hearing loss, left Hearing loss, right History of Sjogren's disease History of stroke Nausea and vomiting in adult Non-smoker Noninfective gastroenteritis and colitis, unspecified RLS (restless legs syndrome) Type 2 diabetes mellitus without complications Varicose veins of leg with edema Home Medications omeprazole 40 mg capsule,delayed release 40 mg PO DAILY GERD 01/06/14 [History Last Taken 01/05/14] cholecalciferol (vitamin D3) 25 mcg (1,000 unit) capsule 1,000 unit PO DAILY supplement 08/28/16 [History Last Taken 09/15/22] donepezil 5 mg tablet 10 mg PO QHS memory 08/28/16 [History Last Taken 09/15/22] metformin 500 mg tablet 500 mg PO DAILY blood sugar 08/28/16 [History Last Taken Unknown] cinnamon bark 500 mg capsule 1,000 mg PO DAILY supplement 11/30/17 [History Last Taken 09/15/22] erythromycin 5 mg/gram (0.5 %) eye ointment 1 applicatio EACH EYE DAILY eye ointment 11/30/17 [History Last Taken Unknown] atorvastatin 80 mg tablet 80 mg PO QHS #30 tabs 12/03/17 [Rx Last Taken Unknown] clopidogrel 75 mg tablet 75 mg PO DAILY #30 tabs 12/03/17 [Rx Last Taken 09/15/22] lmmjjcbk-phg-wlvag acid 0.4 mg-lycopene 300 mcg-lutein 250 mcg tablet 1 ea PO BID supplement 12/03/18 [History Last Taken 09/15/22] naproxen sodium 220 mg capsule 220 mg PO BID pain 12/03/18 [History Last Taken Unknown] Vitamin C 1 tab PO BID 06/08/19 [History Last Taken 09/15/22] memantine 10 mg tablet 10 mg PO BID 09/11/21 [History Last Taken Unknown] acetaminophen 500 mg tablet 1,000 mg PO Q8H PRN PRN Pain Score 1-10/Temp > 100.7F #0 tabs 09/12/21 [Rx Last Taken Unknown] ramipril 5 mg capsule 5 mg PO DAILY 01/11/22 [History Last Taken Unknown] ropinirole 0.25 mg tablet 0.5 mg PO QHS 01/11/22 [History Last Taken Unknown] melatonin 10 mg tablet 10 mg PO QHS 06/14/22 [History Last Taken 09/15/22] zlvzmc-pgrdfsvn-clsofiv 36,000-114,000-180,000 unit capsule,delay rel (Creon) See Rx Instructions PO .COMPLEX #320 caps 08/28/22 [Rx Last Taken 09/16/22] Allergy/AdvReac Type Severity Reaction Status Date / Time corn pollen Allergy Intermediate unk Uncoded 02/04/22 15:53 Family History Mother Alzheimer disease Brother Alzheimer disease Aunt Alzheimer disease Father Heart disease Surgical History H/O lumpectomy H/O: hysterectomy History of tonsillectomy Social History household members: spouse Smoking Status: Never smoker alcohol intake: never substance use type: does not use ROS Review of Systems ROS Unobtainable: due to mental status Vital Signs Vital Signs Vital Signs: 09/16/22 15:20 09/16/22 15:29 Temperature 97.5 F L Temperature Source Temporal Pulse Rate 78 Respiratory Rate 26 H Respiratory Pattern Normal Blood Pressure 154/78 H Blood Pressure Mean 103 Pulse Ox 94 Oxygen Delivery Method Room Air Weight Weight: 86.9 kg Body Mass Index (BMI) 29.9 Physical Exam Const alert, healthy appearing and well nourished Constitutional Narrative: Elderly white female, obese, lying in bed with sheets over her head, gets somewhat combative when I try to examine her but is able to be calmed by her , does not appear toxic General Appearance: cooperative HEENT normocephalic, head/scalp atraumatic and moist oral mucous membranes HEENT Narrative: Upper dentures in place, Mallampati is 2, mucous membranes are moist, no thrush Eyes PERRL, EOMs intact bilaterally and conjunctivae normal Eyes Narrative: No scleral icterus Neck no lymphadenopathy, supple, no JVD and no carotid bruits Neck Narrative: Trachea midline Resp normal respiratory effort, no retractions, no use of accessory muscles and clearto auscultation bilaterally Auscultation: Negative for rales, rhonchi or wheezes Cardio regular rate, regular rhythm, S1 normal heart sound, S2 normal heart sound, no murmurs, no rub, no gallops and no clicks Extremity no clubbing, cyanosis or edema Extremity Narrative: 2+ pedal pulses, 2+ radial pulses Skin no wounds, skin turgor normal, no jaundice, no petechiae and no mottling Skin Narrative: Scattered ecchymosis monthly on upper extremities with no wounds noted, skin is pale Neuro Neuro Narrative: Patient was not real compliant with exam, reflexes are normal, moves all extremities spontaneously and no focal deficits noted, speech was clear when shewould speech but nonsensical at times and not appropriately answering questions Sensorium / Orientation: awake and alert Psych Negative for affect normal Results Lab / Micro Data Attestation: I reviewed the patient's lab results. Result Diagrams: 09/16/22 15:40 09/16/22 15:40 Labs: Laboratory Results - last 24 hr 09/16/22 15:40: WBC 7.5, RBC 3.66 L, Hgb 11.0 L, Hct 35.0 L, MCV 95.6, MCH 30.1,MCHC 31.4 L, RDW Std Deviation 44.8 H, RDW Coeff of Marcio 12.8, Plt Count 248, MPV10.1, Immature Gran % (Auto) 0.500, Neut % (Auto) 57.8, Lymph % (Auto) 30.3, [place] % (Auto) 8.6, Eos % (Auto) 1.9, Baso % (Auto) 0.9, Absolute Neuts (auto) 4.3, Absolute Lymphs (auto) 2.26, Nucleated RBC % 0 09/16/22 15:40: PT 13.6, INR 1.1 09/16/22 15:40: Sodium 135 L, Potassium 4.3, Chloride 101, Carbon Dioxide 28.0, Anion Gap 6, BUN 18, Creatinine 1.18 H, Estim Creat Clear Calc 33.28, Est GFR (MDRD) Af Amer 56 L, Est GFR (MDRD) Non-Af 46 L, BUN/Creatinine Ratio 15.3, Glucose 337 H, Calcium 9.0, Total Bilirubin 0.40, AST 24, ALT 25, Alkaline Phosphatase 100, Total Protein 6.3 L, Albumin 3.0 L, Globulin 3.3, Albumin/Globulin Ratio 0.9 09/16/22 15:40: Lactic Acid 1.9 09/16/22 15:53: Urine Color Yellow, Urine Clarity Clear, Urine pH 5.0, Ur Specific [place] 1.015, Urine Protein Negative, Urine Glucose (UA) 1000 H, UrineKetones Negative, Urine Occult Blood Negative, Urine Nitrite Positive H, Urine Bilirubin Negative, Urine Urobilinogen Normal, Ur Leukocyte Esterase Negative, Urine RBC 0 SEEN, Urine WBC 0 SEEN, Ur Squamous Epith Cells 0 SEEN, Urine Bacteria 1+, Urine Mucus 0 SEEN 09/16/22 17:07: Acetone Level NEGATIVE Rhythm Strip Rhythm Strip: Sinus Rhythm Rate: 73 Ectopy: None Radiology Impression Brain CT 09/16/22 15:27 IMPRESSION: 1. No acute intracranial abnormality. There has been no significant change from the reference exam. 2. Stable underlying senescent change with small vessel ischemia. Electronically Signed: Nathaniel Lebron MD at 16:54 EST , Chest X-Ray 09/16/22 16:20 IMPRESSION: No radiographic evidence of acute cardiopulmonary disease. Electronically Signed: Nathaniel Lebron MD at 16:44 EST , Assessment & Plan Assessment/Plan (1) Mental status alteration: (2) Hyperglycemia: (3) Falls: PLAN: Plan Mental status change -Etiology is unclear -Metabolic work-up so far is normal -I am questioning whether she just has progressing dementia -We will check MRI of brain -CT was unremarkable -Check B12/folate -UA is not consistent with UTI -PT/OT consultation PFO -Small PFO noticed on her last echocardiogram from 06/15/2022 -We will need to clinically correlate with MRI -If new stroke present may need to add dual antiplatelet therapy as she is currently on Plavix Falls -PT/OT consultation -Patient may need services at discharge DM-2 with hyperglycemia -Patient came in with mental status change in June 2022 and was found to be hypoglycemic -She was on glipizide and metformin at that time -Glipizide was discontinued -We will give 8 units of Lantus tonight -Hold metformin -Sliding scale -Accu-Cheks -Check hemoglobin A1c -Patient likely needs additional oral medications at discharge but would avoid sulfonylureas GERD -Continue omeprazole HTN/HPL -Continue ramipril -Continue atorvastatin Pancreatic insufficiency -Continue Creon History of stroke -Continue home Plavix next-patient is not on aspirin Dementia -Continue home donepezil -Continue home memantine Restless leg syndrome -Continue home ropinirole DVT prophylaxis -Lovenox 40 subcu daily CODE STATUS -DNR CCA with no intubation as verified with the on admission Charges/Coding Visit Charges Inpatient E&M: 18088 Init Hosp L3 09/16/222010 <Electronically signed by Estrella Buckner DO> Cosigner Signature (if applicable): CC: Dr. Estrella Buckner, ; Dr. Clinton Fowler DO~ Signed [facility] Work Phone: Reason for referral (narrative)No reason for referral information availableMutual Medical Services Work Phone: Chief Complaint and Reason for Visit Chief Complaint FALL Chief Complaint STROKE LIKE SYMPTOMS STROKE LIKE SYMPTOMS Reason for Visit AMS (altered mental status) Hypoglycemia Stroke-like symptoms Dementia DM (diabetes mellitus), type 2 Chief Complaint STROKE LIKE SYMPTOMS STROKE LIKE SYMPTOMS Consult E ORDER INT LABSPEC LOOSE STOOLS Reason for Visit Hypoglycemia Stroke-like symptoms Loose stools Chief Complaint STROKE LIKE SYMPTOMS STROKE LIKE SYMPTOMS Consult E ORDER INT LABSPEC LOOSE STOOLS MS CHANGES Reason for Visit Hypoglycemia Stroke-like symptoms Loose stools [place] Hyperglycemia Mental status alteration Chief Complaint STROKE LIKE SYMPTOMS STROKE LIKE SYMPTOMS Consult E ORDER INT LABSPEC LOOSE STOOLS MS CHANGES MS CHANGES MS CHANGES Reason for Visit Hypoglycemia Stroke-like symptoms Loose stools [place] Hyperglycemia Mental status alteration CVA (cerebral vascular accident) Chief Complaint Consult E ORDER INT LABSPEC LOOSE STOOLS MS CHANGES MS CHANGES MS CHANGES EKG EORDER Reason for Visit Loose stools Hyperglycemia Chief Complaint MS CHANGES MS CHANGES MS CHANGES EKG EORDER 4 MO FU GI BLEED GI BLEED GI BLEED GI BLEED GI BLEED GI BLEED Reason for Visit CVA (cerebral vascul ar accident) Hyperglycemia Exocrine pancreatic insufficiency Acute blood loss anemia Alzheimer disease Anemia Bright red rectal bleeding CVA (cerebral vascular accident) Delirium GI bleed Weakness Exocrine pancreatic insufficiency Chief Complaint EORDER 4 MO FU GI BLEED GI BLEED GI BLEED GI BLEED GI BLEED GI BLEED Reason for Visit Weakness Acute blood loss anemia Bright red rectal bleeding Delirium GI bleed Chief Complaint GI BLEED GI BLEED GI BLEED GI BLEED GI BLEED GI BLEED URINE DROPOFF Reason for Visit Weakness Acute blood loss anemia Bright red rectal bleeding Delirium GI bleed Chief Complaint URINE DROPOFF CONGESTED, COUGH 6 MO FU general illness Reason for Visit Cough Viral upper respiratory illness Chronic anemia Exocrine pancreatic insufficiency GI bleed Chief Complaint general illness Chief Complaint Admit Date 6 Month f/u December 11, 2024 1:48p m Reason for Visit Admit Date Chronic anemia December 11, 2024 1:48p m Exocrine pancreatic insufficiency December 112024 1:48pm GI bleed December 11, 2024 1:48p m Loose stools December 11, 2024 1:48p m Family History No Family History Records Found Relationship Condition Age at Onset Recorded Date/T marshall mother Alzheimer's disease Unknown brother Alzheimer's disease Unknown aunt Alzheimer's disease Unknown father Cardiac disease Unknown Advance Directives No Advanced Directives Records Found Advance Directive Response Recorded Date/ Time Advance Directives No August 9:15pm Living Will No February 04, 2022 3:57pm Power of Superannuation Funds Manager No February 04 3:57pm Advance Directive Response Recorded Date/ Time Advance Directives No August 8:15pm Living Will No June 15 1:18am Power of Superannuation Funds Manager No June 15, 2022 1:18am Advance Directive Response Recorded Date/ Time Advance Directives No August 8:15pm Living Will No September 16, 2022 3:29pm Power of Superannuation Funds Manager No September 16 3:29pm Advance Directive Response Recorded Date/ Time Advance Directives No August 8:15pm Living Will No September 16, 2022 8:19pm Power of Superannuation Funds Manager No September 16 3 8:19pm Advance Directive Response Recorded Date/ Time Advance Directives No August 9:15pm Living Will No September 16, 2022 9:19pm Power of Superannuation Funds Manager No September 16 9:19pm Advance Directive Response Recorded Date/ Time Advance Directives No August 9:15pm Living Will No January 12, 2023 4:07pm Power of Superannuation Funds Manager No January 12 3 4:07pm Advance Directive Response Recorded Date/ Time Advance Directives No August 8:15pm Living Will No November 23rd, 2 023 11:53pm Power of Superannuation Funds Manager No June 07, 2023 11:53pm Advance Directive Response Recorded Date/ Time Advance Directives No August 9:15pm Living Will No June 08, 023 12:53am Power of Superannuation Funds Manager No June 08, 2023 12:53am Advance Directive Response Recorded Date/ Time Advance Directives No August 9:15pm Summary Purpose Additional Source Comments Goals (unrecognized section and content) Goals may be documented in a n alternate sectionGoals may be documented in an alternate sectionGoals may be documented in an alternate sectionGoals may be documented in an alternate sectionGoals may be documented in an alternate section Care Teams (unrecognized sec tion and content) Team Status: Active Member Role Status Dates Dr. Clinton Fowler , DO Family Provider Active Dr. Clinton Fowler , DO Primary Care Provider Active Team Status: Inactive Member Role Status Dates Dr. Clinton Fowler , DO Primary Care Provider, Referrin g Provider Active Dr. Hung Adames , DO Attending Provider Active Team Status: Active Member Role Status Dates Dr. Clinton Fowler , DO Primary Care Provider Active Dr. Eduin Blair MD Attending Provider Active Team Status: Active Member Role Status Dates Dr. Clinton Fowler DO Primary Care Provider Active Dr. Maura Lauren , DO Emergency Provider Active Dr. Foreign Paredes MD Admit Provider, Other Provide r Active Dr. Isa Verma MD Attending Provider, Other Prov ider Active Team Status: Inactive Member Role Status Dates Dr. Clinton Fowler DO Primary Care Provider Active Dr. Maura Lauren , DO Emergency Provider Active Dr. Foreign Paredes MD Admit Provider, Other Provide r Active Dr. Isa Verma MD Attending Provider Active Team Status: Inactive Member Role Status Dates Dr. Clinton Fowler DO Primary Care Provider Active Dr. Hung Adames , DO Attending Provider Active Team Status: Active Member Role Status Dates Dr. Clinton Fowler DO Primary Care Provider Active Dr. Hung Adames , DO Attending Provider, Referring Provider Active Team Status: Active Member Role Status Dates Dr. Clinton Fowler DO Primary Care Provider Active Dr. Hung Adames , DO Attending Provider Active Team Status: Inactive Member Role Status Dates Dr. Clinton Fowler , DO Primary Care Provider Active Dr. Hung Adames , DO Attending Provider, Referring Provider Active Team Status: Active Member Role Status Dates Dr. Clinton Fowler , DO Primary Care Provider Active Dr. Moncho Thomas MD Emergency Provider Active Dr. Estrella Buckner , DO Admit Provider, Attending Provide r Active Team Status: Active Member Role Status Dates Dr. Clinton Fowler , DO Primary Care Provider Active Dr. Moncho Thomas MD Emergency Provider Active Dr. Estrella Buckner , DO Admit Provider, Other Provider Ac tive Dr. Foreign Paredes MD Attending Provider Active Team Status: Active Member Role Status Dates Dr. Clinton Fowler , DO Primary Care Provider Active Dr. Gera Corbett MD Attending Provider Active Team Status: Active Member Role Status Dates Dr. Clinton Fowler , DO Primary Care Provider Active Dr. Moncho Thomas MD Emergency Provider Active Dr. Estrella Buckner , DO Admit Provider, Other Provider Ac tive Dr. Isa Verma MD Attending Provider, Other Prov ider Active Dr. Maria D Chawla MD Other Provider Active Team Status: Inactive Member Role Status Dates Dr. Clinton Fowler , DO Primary Care Provider Active Dr. Moncho Thomas MD Emergency Provider Active Dr. Estrella Buckner DO Admit Provider, Other Provider Ac tive Dr. Isa Verma MD Attending Provider Active Dr. Maria D Chawla MD Other Provider Active Team Status: Active Member Role Status Dates Dr. Clinton Fowler , DO Primary Care Provider Active Dr. Moncho Thomsa MD Emergency Provider Active Dr. Estrella Buckner , DO Admit Provider, Other Provider Ac tive Dr. Foreign Paredes MD Active Dr. Maria D Chawla MD Attending Provider Active Team Status: Active Member Role Status Dates Dr. Clinton Fowler , DO Primary Care Provider Active Dr. Alan Batista MD Attending Provider Active Dr. Isa Verma MD Referring Provider Active Team Status: Active Member Role Status Dates Dr. Clinton Fowler , DO Primary Care Provider Active Dr. Isiah Winn , DO Emergency Provider Active Dr. Sixto Braswell , DO Admit Provider, At tending Provider, Other Provider Active Team Status: Active Member Role Status Dates Dr. Clinton Fowler , DO Primary Care Provider Active Dr. Isiah Winn , DO Emergency Provider Active Dr. Sixto Braswell , DO Admit Provider, Other Provider A ctive Dr. Hung Adames , DO Attending Provider Active Team Status: Inactive Member Role Status Dates Dr. Clinton Fowler , DO Primary Care Provider Active Dr. Isiah Winn , DO Emergency Provider Active Dr. Sixto Braswell , DO Admit Provider, Attending Provid er Active Team Status: Inactive Member Role Status Dates Dr. Clinton Fowler , DO Primary Care Prov ider, Attending Provider, Referring Provider Active Team Status: Active Member Role Status Dates Dr. Clinton Fwoler , DO Primary Care Provider Active Dr. Isiah Winn , DO Emergency Provider Active Dr. Sixto Braswell , DO Admit Provider, Re ferring Provider, Other Provider Active Dr. Hung Adames , DO Attending Provider Active Team Status: Active Member Role Status Dates Dr. Clinton Fowler DO Primary Care Prov ider, Attending Provider, Referring Provider Active Team Status: Inactive Member Role Status Dates Dr. Clinton Fowler DO Primary Care Provider, Referrin g Provider Active Inessa Hall RETURNED GOODS RECEIVING CLERK, RETURNED GOODS RECEIVING CLERK-C Attending Provider Active Team Status: Inactive Member Role Status Dates Dr. Clinton Fowler DO Primary Care Provider Active Dr. Nikki Jacques MD Emergency Provider Active Team Status: Inactive Member Role Status Dates Dr. Clinton Fowler DO Primary Care Provider Active Dr. Nikki Jacques MD Attending Provider, Emergency Provider Active Team Status: Inactive Member Role Status Dates Dr. 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 Clinton Fowler DO Primary Care Provider Active Start: December 11, 2024 End: December 11, 2024 Dr. Clinton Fowler DO Referring Provider Active Start: December 11, 2024 End: December 11, 2024 Dr. Hung Adames , DO Attending Provider Active Start: December 11, 2024 End: December 11, 2024 Team Status: Inactive Member Role Status Dates Dr. Clinton Fowler DO Primary Care Provider Active Start: January 01, 2025 End: January 01, 2025 Dr. Clinton Fowler , DO Attending Provider Active Start: January 01, 2025 End: January 01, 2025 INFORMATION SOURCE (unrecogn ized section and content) DATE CREATED AUTHOR 01/28/2024 [facility] DATE CREATED AUTHOR AUTHOR'S ORGANIZ ATION 01/10/2025 [facility] DATE CREATED AUTHOR AUTHOR'S ORGANIZ ATION 02/20/2025 [facility] Reason for Visit (unrecogniz ed section and content) Reason Comments Alzheimer's Disease FOR RECORDS PERTAINING TO PATIENTS WHO ARE OR HAVE BEEN ENROLLED IN A CHEMICAL DEPENDENCY/SUBSTANCEABUSE PROGRAM, SOME INFORMATION MAY BE OMITTED. This clinical summary was aggregated from multiple sources. Caution should be exercised in using it in the provision of clinical care. This summary normalizes information from multiple sources, and as a consequence, information in this document may materially change the coding, format and clinical context of patient data. In addition, data may be omitted in some cases. CLINICAL DECISIONS SHOULD BE BASED ON THE PRIMARY CLINICAL RECORDS. [employer] provides no warranty or guarantee of the accuracy or completeness of information in this document.
[2025-02-22] MEDS: 0.9% Normal Saline (500mL Bag) 500 ML 1000 ML IV (16:21)
--- NOTE | 2025-02-22 16:30 | RAD_ITS ---
PROCEDURE: CHEST PA AND LATERAL 02/22/2025 REASON FOR EXAM: CHILLS TECHNIQUE: CHEST PA AND LATERAL COMPARISON: Chest radiograph 06/07/2023. FINDINGS: Hardware: None. Heart: The heart size is normal. Mediastinum: There are atherosclerotic calcifications of the thoracic aorta. Lungs: Calcified right hilar granulomas. Bibasilar atelectasis. No focal consolidation, pleural effusion or pneumothorax. Bones: Degenerative changes are identified within the thoracic spine. RAD/Chest PA and Lateral IMPRESSION: NO ACUTE FINDINGS. Reading Location: [id number]
[2025-02-22 16:31] LABS: Hematocrit 30.7 % (37-47); Hemoglobin 10.1 g/dL (12.0-15.0); Immature Granulocytes Count 0.040 X10^3/uL (0.0-0.0); Mean Corp Hgb Conc 32.9 g/dL (32-36); Mean Corpuscular Volume 95.0 fL (81-99); Mean Platelet Vol. 11.0 fl (6.2-12.0); NRBC Flagged by Analyzer 0 % (0-5); Platelet Count 165 K/mm3 (150-450); RBC Distribution Width CV 13.1 % (11.6-14.6); RBC Distribution Width SD 45.7 fl (35.1-43.9); Red Blood Count 3.23 M/mm3 (4.2-5.4); White Blood Count 6.9 K/mm3 (4.4-11.0)
[2025-02-22 16:32] LABS: Red Blood Cells-Urine 0 SEEN /hpf (0-5)
[2025-02-22 16:37] LABS: Color, Urine Yellow (Yellow); Glucose, Dipstick Normal (Normal); Ketone-Dipstick Negative (Negative); Leukocyte Esterase-Dipstick 100 /ul (Negative); Nitrite-Dipstick Negative (Negative); Occult Blood-Urine Negative /ul (Negative); Protein-Dipstick 15 mg/dl (Negative); Specific Gravity, Urine 1.015 (1.002-1.030); Urine Bilirubin Dipstick Negative (Negative)
[2025-02-22 16:56] VITALS: BP 183/78; PULSE 60; RESP 16; O2SAT 98
[2025-02-22 17:22] LABS: Mucous, Urine RARE /hpf (<or=2+); Squamous Epithelial Cells - UA 0-5 SEEN /hpf (5-10)
[2025-02-22 17:27] LABS: Anion Gap 9 (5-15); BUN 23 mg/dL (4-19); BUN/Creat Ratio 22.9 RATIO (10-20); Calcium,Total 9.2 mg/dL (7.6-11.0); Carbon Dioxide 23.6 mmol/L (21.0-32.0); Chloride 106 mmol/L (98-108); Estimated Creatinine Clearance 37.27 ml/min (50-250); Glucose 138 mg/dL (70-99); Potassium 4.7 mmol/L (3.3-5.1)
[2025-02-22 18:00] VITALS: BP 170/79; PULSE 61; RESP 16; O2SAT 97
[2025-02-22 18:09] VITALS: BP 170/74; PULSE 61; RESP 16; TEMP 36.3; O2SAT 97
== END 2025-02-22 18:11 | disposition home or self-care (01) ==
PROVIDERS: Emergency Provider Emergency Medicine; PCP Family Medicine; Referring Provider Emergency Medicine; Visit Provider Emergency Medicine
DX: N39.0 Urinary tract infection, site not specified (principal); E11.22 Type 2 diabetes mellitus with diabetic chronic kidney disease; N18.30 Chronic kidney disease, stage 3 unspecified; D63.1 Anemia in chronic kidney disease; R53.1 Weakness; Z86.73 Personal history of transient ischemic attack (TIA), and cerebral infarction without residual deficits
CPT/HCPCS: 70450; 71046; 80048; 81001; 85025; 87077; 87086; 87088; 87186; 96360; 99285; A4216

== ENCOUNTER 2025-03-30 01:40 | Emergency (ER) | payer MEDICARE, OTHER, SELFPAY ==
[2025-03-30 01:42] VITALS: BP 167/63; PULSE 64; RESP 18; TEMP 36.7; O2SAT 100; BMI 29.2
--- NOTE | 2025-03-30 02:01 | CT_ITS ---
PROCEDURE: BRAIN/HEAD WITHOUT CONTRAST 03/30/2025 REASON FOR EXAM: ALTERED MENTAL STATUS TECHNIQUE: Procedure Code: CTBR Modality: CT Procedure: BRAIN/HEAD WITHOUT CONTRAST Coronal and Sagittal reconstruction series were provided. One or more dose reduction techniques were used (e.g., Automated exposure control, adjustment of the mA and/or kV according to patient size, use of iterative reconstruction technique. RADIATION DOSE SUMMARY: CTDI Vol 44.99 mGy DLP :846.73 mGycm COMPARISON: 22-Feb-2025 FINDINGS: Accentuated bilateral cerebral periventricular deep white matter hypodensities denoting hypoperfusion with bilateral cerebral periventricular and subcortical as well as basal ganglia hypodense foci and patches. Veliz-white matter differentiation is maintained. Normal CT appearance of the posterior fossa structures. No intracerebral or extra axial hemorrhage. Dilated ventricular system, cortical sulci and extra-axial CSF spaces with fronto-temporal atrophic changes. No definite calvarial fractures. No midline shifts or deformity. The osseous structures in the skull base are unremarkable. Paranasal sinuses are unremarkable. Vascular atheromatous calcifications. CT/Brain/Head without Contrast IMPRESSION: No acute cerebrovascular abnormalities. If clinical symptoms persist, further e valuation with MRI may be considered as clinically warranted. No intra or extra-axial acute hemorrhage. Bilateral cerebral microvascular ischemic changes with age matches brain involu tional changes. Stable. Reading Location[facility]
[2025-03-30 02:12] LABS: Mucous, Urine 0 SEEN /hpf (<or=2+); Red Blood Cells-Urine 0 SEEN /hpf (0-5); Squamous Epithelial Cells - UA 0 SEEN /hpf (5-10)
[2025-03-30 02:13] LABS: Hematocrit 32.2 % (37-47); Hemoglobin 10.5 g/dL (12.0-15.0); Immature Granulocytes Count 0.030 X10^3/uL (0.0-0.0); Mean Corp Hgb Conc 32.6 g/dL (32-36); Mean Corpuscular Volume 96.1 fL (81-99); Mean Platelet Vol. 10.4 fl (6.2-12.0); NRBC Flagged by Analyzer 0 % (0-5); Platelet Count 161 K/mm3 (150-450); RBC Distribution Width CV 12.8 % (11.6-14.6); RBC Distribution Width SD 45.1 fl (35.1-43.9); Red Blood Count 3.35 M/mm3 (4.2-5.4); White Blood Count 7.1 K/mm3 (4.4-11.0)
[2025-03-30 02:14] LABS: Color, Urine Yellow (Yellow); Glucose, Dipstick Normal (Normal); Ketone-Dipstick Negative (Negative); Leukocyte Esterase-Dipstick 100 /ul (Negative); Nitrite-Dipstick Positive (Negative); Occult Blood-Urine Negative /ul (Negative); Protein-Dipstick Negative (Negative); Specific Gravity, Urine 1.010 (1.002-1.030); Urine Bilirubin Dipstick Negative (Negative)
--- OUTSIDE RECORDS SUMMARY | 2025-03-30 02:18 | XMS RPT_ITS | CCD ---
Author Organization [facility] CliniSyky Care Team Providers Care Veneer Joiner Name Role Phone Dr. Clinton Fowler Primary Care Provider [phone] Dr. Eduin Blair Attending Provider Dr. Maura Lauren Emergency Provider Dr. Foreign Paredes Admit Provider Dr. Foreign Paredes Other Provider Dr. Isa Verma Attending Provider [phone] Isa Verma Other Provider Dr. Clinton Fowler Referring Provider [phone] Hung Adames Attending Provider [phone] Dr. Moncho Thomas Emergency Provider Dr. Estrella Buckner Admit Provider Dr. Estrella Buckner Other Provider Dr. Foreign Paredes Attending Provider [phone] Maria D Chawla Other Provider Dr. Grea Corbett Attending Provider Dr. Clinton Fowler Primary Care Provider [phone] Dr. Clinton Fowler Referring Provider Dr. Hung Adames Attending Provider [phone] Moncho Thomas Emergency Provider Dr. Estrella Buckner Admit Provider Dr. Estrella Buckner Other Provider Dr. Maria D Chawla Attending Provider Bayron, Dr. Isa Bain Attending Provider Bayron, Dr. [...] Fowler Primary Care Provider Dr. Clinton Fowler Primary Care Provider Dr. Sixto Braswell Referring Provider Dr. Hung Adames Attending Provider Dr. Clinton Fowler Primary Care Provider Dr. Clinton Folwer Referring Provider Rafael DECISION UNIT RN, DECISION UNIT RN-C Inessa Thomas Attending Provider [phone] Dr. Hung Adames Attending Provider LIBERTAD WHITTAKER Attending Unavailable LIBERTAD WHITTAKER Attending Unavailable Clinton Fowler DO Primary Care Provider Dr. Clinton Fowler DO Primary Care Provider Dr. Clinton Fowler DO Referring Provider Dr. Hung Adames DO Attending Provider Dr. Clinton Fowler DO Attending Provider [phone] LIBERTAD WHITTAKER S Attending Unavailable LIBERTAD WHITTAKER Referring Unavailable CLINTON FOWLER Primary Care Unavailable Dr. Sixto Alvarez DO Referring Provider Dr. Sixto Alvarez DO Emergency Provider Davian DECISION UNIT RN, Libertad S Attending Unavailab le Clinton Fowler Primary Care Unavailable Sixto Alvarez Attending Unavailable Sixto Alvarez Referring Unavailable Janeth, Clinton Primary Care Unavailable Nikita Alvarado Attending Unavailable Janeth, Clinton Primary Care Unavailable JanethClinton chisholm Attending Unavailable Janeth, Clinton Primary Care Unavailable Janeth, Clinton Primary Care Unavailable Friend, Hung Attending Unavailable Clinton Fowler Referring Unavailable FriendHung Attending Unavailable Janeth, Clinton Primary Care Unavailable Janeth, Clinton Referring Unavailable Janeth, Clinton Primary Care Unavailable JanethClinton chisholm Attending Unavailable Allergies Allergy Classification Reported Allergen(s) Allergy Type Date of Onset Reaction(s) Facility (9 sources) Pollen Allergy to substance 3 PT UNSURE OF REACTION [facility] (1 source) Pollen Drug allergy (disorder) 5 [facility] Repository Medications Current Medications Medication Drug [...] Pain Score 1-10/Temp > 100.7 F 0 0 September 12, 2021 1:00am January 12, [...] mouth. Active aspirin 81 mg chewable tablet (12 sources) Platelet Aggregation Inhibitor, Nonsteroidal Anti-inflammatory Drug Start: 09-20-2022 take 1 tablet by mouth at breakfast Aspirin 81 mg Tablet,Chewable Active 81 mg PO WITH BREAKFAST 30 September 20, 2022 1:00am aspirin 81 mg ta blet Take by mouth. Active atorvastatin 80 mg oral tablet (20 sources) HMG-CoA Reductase Inhibitor Start: 12-03-2017 take 1 tablet by mouth at bedtime Atorvastatin 80 MG tablet Active 80 mg PO AT BEDTIME 30 0 December 03, 2017 12:00am cholesterol Start: 01-08-2014 End: 12-03-2017 Atorvastatin 80 MG tablet Discontinued 40 mg PO AT BEDTIME 30 January 08, 2014 12:00am December 03, 2017 11:01am Start: 01-08-2014 End: 12-03-2017 take 40 mg by mouth at bedtime Atorvastatin Discontinu ed 40 MG PO AT BEDTIME January 08, 2014 12:00am December 03, 2017 11:01am cholecalciferol 0.025 mg oral capsule (19 sources) Vitamin D Start: 08-28-2016 take 1 capsule by mouth once daily Cholecalciferol (Vitamin D3) 1,000 UNIT capsule Active 1000 U PO DAILY August 28, 2016 1:00am supplement cholecalciferol (Vitamin D-3) 25 mcg (1,000 units) capsule Take 1 capsule (1,000 Units) by mouth. Active vvhg-jtscm-HGY-nce-rqtvtst-z ea 100 mg-100 mcg- 100 mg-100 mg capsule (1 source) odsd-tdfdi-XJZ-g gh-vglbykr-peq 100 mg-100 mcg- 100 mg-100 mg capsule once every 24 hours. Active cinnamon bark 500 mg oral ca psule (18 sources) Star t: 11-13 take 1 capsule by mouth once daily Cinnamon Bark 500 MG capsule Active 1000 mg PO DAILY November 30, 2017 12:00am supplement Start: 11-30-2017 take 1000 mg by mouth once jarrod ly Cinnamon Bark Active 1000 MG PO DAILY November 30, 2017 12:00am donepezil hydrochloride 10 m g oral tablet (19 sources) Start: 01-21-2024 donepezil (Ben cept) 10 mg tablet Take 1 tablet (10 mg) by mouth. 01/21/2024 Active Start: 08-28-2016 take 2 tablets by [facility] at bedtime Donepezil 5 MG tablet Active 10 mg PO AT BEDTIME August 28, 2016 1:00am memory Start: 08-28-2016 take 10 mg by mouth at bedtime Donepezil Active 10 MG PO AT BEDTIME August 28, 2016 1:00am gabapentin 300 mg oral capsule (6 sources) Anti-epileptic Agent Start: 01-11-2022 take 300 mg by mouth three times daily Gabapentin Active 300 MG PO THREE TIMES A DAY January 10, 2022 11:00pm glipiZIDE 5 mg oral tablet (10 sources) Sulfonylurea Start: 01-12-2023 take 2.5 mg by mouth twice daily, then take 1 tablet by mouth twice daily Glipizide 5 mg tablet Active 2.5 mg PO TWICE A DAY January 12, 2023 12:00am DM 2.5MG TO 5MG BID UD Start: 01-12-2023 [...] 11:00pm memantine hydrochloride 10 mg oral tablet (19 sources) P-hwmfxr-B-aspart ate Receptor Antagonist Start: 09-11-2021 take 1 tablet by mouth twice daily Memantine 10 mg tablet Active 10 mg PO TWICE A DAY February 27th, 2022 1:00am mental health metFORMIN hydrochloride 500 mg oral tablet (19 sources) Biguanide Start: 08-28-2016 take 1 tablet by mouth once daily Metformin 500 MG tablet Active 500 mg PO DAILY August 28, 2016 1:00am blood sugar modafinil 100 mg oral tablet (17 sources) Sympathomimetic-l charisse Agent Start: 09-16-2022 take 1 tablet by mouth once daily Modafinil 100 mg Tablet Active 200 mg PO DAILY September 16, 2022 1:00am sleepiness Start: 09-16-2022 take 200 mg by mouth once alina y Modafinil Active 200 MG PO DAILY September 16, 2022 1:00am Start: 09-11-2021 take 100 mg by mouth once alina y Modafinil Active 100 MG PO DAILY September 11, 2021 12:00am Ngqyrtcz-Xzm-Ee-Lycopen-Lute in (15 sources) Start: 12-03-2018 Rbihttrw-Cnh-Vb-Lycopen-Lute in Active 1 EACH PO TWICE A DAY December 02, 2018 11:00pm Start: 12-03-2018 Vsyivmya-Vuk-B w-Dxidlff-Fassbc Active 1 EACH PO TWICE A DAY December 03, 2018 12:00am Ojqkzfev-Ewn-Fe-Lycopen-Lute in 1 EACH tablet (3 sources) Start: 12-03-2018 Kkwrqguz-Efh-Lx-Lycopen-Lute in 1 EACH tablet Active 1 NMA PO TWICE A DAY December 03, 2018 12:00am supplement Start: 12-03-2018 Wmohidso-Nzj-F z-Gbuuylj-Yotgcu 1 EACH tablet Active 1 NMA PO TWICE A DAY December 03, 2018 12:00am nitrofurantoin, macrocrystals 25 mg / nitrofurantoin, monohydrate 75 mg oral capsule (4 sources) Nitrofuran Antibacterial Start: 06-28-2024 End: 02-22-2025 take 1 capsule by mouth every twelve hours Nitrofurantoin Monohyd/M-Cryst 100 mg capsule Active 100 mg PO EVERY 12 HOURS 10 0 February 22, 2025 5:51pm omeprazole 40 mg delayed release oral capsule (19 sources) Proton Pump Inhibitor Start: 01-06-2014 take 1 capsule by mouth once daily Omeprazole 40 MG capsule Active 40 mg PO DAILY January 06, 2014 12:00am GERD omeprazole (PriL OSEC) [address] capsule once every 24 hours. Active ramipril 5 mg oral capsule (20 sources) Angiotensin Converting Enzyme Inhibitor Start: 01-11-2022 take 1 capsule by mouth once daily Ramipril 5 mg capsule Active 5 mg PO DAILY January 11, 2022 12:00am blood pressure Start: 11-30-2017 End: 06-26-2019 take 1 capsule by mouth once daily Ramipril 5 MG capsule Discontinued 5 mg PO DAILY November 30, 2017 12:00am June 26, 2019 3:55pm Check with primary doctor rOPINIRole 0.5 mg oral tablet (19 sources) Nonergot Dopamine Agonist Start: 07-20-2023 take 1 tablet by mouth once rOPINIRole (Requip) 0.5 mg tablet 1 tab(s) orally once a day(HS ) 07/20/2023 Active Start: 01-11-2022 take 2 tablets by mo uth at bedtime Ropinirole 0.25 mg tablet Active 0.5 mg PO AT BEDTIME January 11, 2022 12:00am restless legs On Hold: unsure if she still takes [...] mg / clavulanate 125 mg oral tablet (5 sources) Penicillin-class Antibacterial Start: 06-03-2023 End: 06-10-2023 Amoxicillin-Pot Clavulanate (Augmentin) 500-125 mg tablet Discontinued 1 {tbl} PO TWICE A DAY 14 7 0 June 03, 2023 1:00am June 09, 2023 1:00am June 10, 2023 1:04am On Hold: only take if needed amylase 194535 unt / lipase [id number] unt / protease [id number] unt delayed release oral capsule (20 sources) Start: 08-28-2022 End: 07-24-2024 Qfimas-Aqrybnsn-Jv ylase (Creon) 36,000-114,000- 180,000 unit capsule,delayed release(DR/EC) Discontinued 0 PO .COMPLEX 160 2 July 02, 2023 11:42am July 24, 2024 5:16pm supplement take 1-2 with snacks and 2-3 with meals Ascorbic Acid (19 sources) Vitamin C Start: 06-08-2019 End: 06-07-2023 Vitamin C Discontinued 1 {tbl} PO TWICE A DAY June 08, 2019 1:00am June 08, 2023 12:40am supplment Start: 06-08-2019 End: 06-07-2023 Vitamin C Discontinued 1 {tb l} PO TWICE A DAY June 08, 2019 [...] budesonide 3 mg delayed release oral capsule (9 sources) Corticosteroid Start: 12-05-2022 End: 01-12-2023 take 1 capsule by mouth twice daily Budesonide 3 mg capsule,delayed,extend.release Discontinued 3 mg PO TWICE A DAY 60 3 December 05, 2022 12:00am January 12, 2023 12:26pm cephalexin 500 mg oral capsule (20 sources) Cephalosporin Antibacterial Start: 01-16-2024 End: 01-23-2024 take 1 capsule by mouth every eight hours Cephalexin 500 mg capsule Discontinued 500 mg PO Q8H 21 7 0 January 16, 2024 12:00am January 22, 2024 12:00am January 23, 2024 12:05am Start: 07-21-2020 End: 07-21-2020 take 1 capsule by mouth three times daily Cephalexin 500 mg capsule Discontinued 500 mg PO THREE TIMES A DAY 21 0 July 21, 2020 1:00am July 21, 2020 5:45pm clopidogrel 75 mg oral tablet (19 sources) [id number] Platelet Inhibitor Start: 12-03-2017 End: 01-14-2023 take 1 tablet by mouth once daily Clopidogrel 75 MG tablet Discontinued 75 mg PO DAILY 30 December 03, 2017 12:00am January 14, 2023 1:39pm colestipol hydrochloride 1000 mg oral tablet (19 sources) Bile Acid Sequestrant Start: 11-02-2022 End: 01-12-2023 Colestipol 1 gram tablet Discontinued 2 g PO TWICE A DAY 120 11 November 02, 2022 9:19am January 12, 2023 12:26pm Start: 11-02-2022 End: 01-12-2023 take 2 g by mouth twice daily Colestipol Discontinued 2 GM PO TWICE A DAY 120 November 02, 2022 9:19am January 12, 2023 12:26pm Start: 10-13-2022 End: 10-31-2022 Colestipol 1 gram tablet Dis continued 1 g PO TWICE A DAY 60 11 October 13, 2022 12:00am October 31, 2022 3:00pm doxycycline hyclate 100 mg oral capsule (18 sources) Tetracycline-class Drug Start: 10-31-2022 End: 01-12-2023 take 1 capsule by mouth twice daily Doxycycline Hyclate 100 mg capsule Discontinued 100 mg PO TWICE A DAY 60 0 December 05, 2022 10:56am January 12, 2023 12:27pm erythromycin 0.005 mg/mg ophthalmic ointment (18 sources) Macrolide, Macrolide Antimicrobial Start: 11-30-2017 End: 01-12-2023 Erythromycin 5 MG/GRAM ointment Discontinued 1 APPLICATIO EACH EYE DAILY November 30, 2017 12:00am January 12, 2023 12:27pm eye ointment it is to go around eye not [...] 28, 2016 11:45pm June 16, 2022 4:45pm blood sugar Start: 08-28-2016 End: 06-16-2022 take 2 mg by mouth once daily Glimepiride Discontinued 2 MG PO DAILY August 28, 2016 11:45pm June 16, 2022 4:45pm Start: 01-08-2014 End: 08-28-2016 take 1 tablet by mouth once daily Glimepiride 4 MG tablet Discontinued 4 mg PO DAILY 1 0 January 08, 2014 4:01pm August 28, 2016 11:45pm Start: 01-06-2014 End: 01-08-2014 take 1 tablet by mouth twice daily Glimepiride 4 MG tablet Discontinued 4 mg PO TWICE A DAY January 06, 2014 12:00am January 08, 2014 4:01pm take 1 tablet by morris th once daily glimepiride (Amaryl) 2 mg tablet Take 1 tablet (2 mg) by mouth once daily. Active Bnxigz-Wbjhnsdf-Qvzgxjz (Bib pep) 40,000-126,000- 168,000 unit capsule,delayed release(DR/EC) (16 sources) Start: 08-23-2022 End: 08-28-2022 Iyvyss-Eybbgple-Dnnfawr (Zenpep) 40,000-126,000- 168,000 unit capsule,delayed release(DR/EC) Discontinued 0 PO .COMPLEX 320 August 23, 2022 1:00am August 28, 2022 5:28pm take 1-2 with snacks and 2-3 with meals Start: 08-23-2022 End: 08-28-2022 Vifmgq-Qrpyqird-Eqbwcrq (Bib pep) 40,000-126,000- 168,000 unit capsule,delayed release(DR/EC) Discontinued 0 PO .COMPLEX 320 August 23, 2022 1:00am August 28, 2022 5:28pm take 1-2 with snacks and 2-3 with meals Start: 08-23-2022 End: 08-28-2022 Ebmlbd-Yfxwxnwf-Kizzzeg (Bib pep) 40,000-126,000- 168,000 unit capsule,delayed release(DR/EC) [...] 10:42am naproxen sodium 220 mg oral capsule (18 sources) Nonsteroidal Anti-inflammatory Drug Start: 12-03-2018 End: 01-14-2023 take 1 capsule by mouth twice daily Naproxen Sodium 220 MG capsule Discontinued 220 mg PO TWICE A DAY December 03, 2018 12:00am January 14, 2023 1:39pm pain Problems Active Problems Problem Classification Problem Date Documented Da te Episodic/Chronic Acute cerebrovascular disease (20 sources) Cerebrovascular accident; Translations: [Cerebral infarction, unspecified] 06-26-2019 Chronic Acute posthemorrhagic anemia (13 sources) Acute posthemorrhagic anemia; Translations: [Acute posthemorrhagic anemia] 01-13-2023 Episodic Chronic kidney disease (18 sources) Chronic kidney disease stage 3; Translations: [Stage 3 chronic kidney disease] 03-03-2019 Chronic Conditions associated with dizziness or vertigo (18 sources) Vertigo; Translations: [Dizziness and giddiness] 12-03-2018 Episodic Deficiency and other anemia (18 sources) Anemia due to blood loss; Translations: [Iron deficiency anemia secondary to blood loss (chronic)] 09-20-2021 Chronic Deficiency and other anemia (20 sources) Chronic anemia; Translations: [Anemia, unspecified] 03-03-2019 Episodic Deficiency and other anemia (9 sources) Anemia; Translations: [Anemia, unspecified] 01-12-2023 Episodic Deficiency and other anemia (2 sources) Anemia, unspecified; Translations: [Anemia, unspecified] 01-14-2023 Episodic Delirium, dementia, and amnestic and other cognitive disorders (20 sources) Dementia; Translations: [Unspecified dementia without behavioral disturbance] Onset: 5 Chronic Diabetes mellitus with complications (19 sources) Neuropathy due to diabetes mellitus; Translations: [Type 2 diabetes mellitus with diabetic neuropathy, unspecified] Onset: 5 12-03-2018 Chronic Diabetes mellitus without complication (19 sources) Type 2 diabetes mellitus; Translations: [Type 2 diabetes mellitus without complications] Chronic Diabetes mellitus without complication (20 sources) Hyperglycemia; Translations: [Hyperglycemia, unspecified] 09-16-2022 Episodic Disorders of lipid metabolism (18 sources) Hyperlipidemia; Translations: [Hyperlipidemia, unspecified] 12-03-2018 Chronic E Codes: Fall (20 sources) Fall; Translations: [Unspecified fall, initial encounter] 07-17-2019 Episodic Esophageal disorders (18 sources) Gastroesophageal reflux disease; Translations: [Gastro-esophageal reflux disease without esophagitis] 08-10-2022 Chronic Gastrointestinal hemorrhage (20 sources) Gastrointestinal hemorrhage; Translations: [Gastrointestinal hemorrhage, unspecified] 01-12-2023 Episodic Malaise and fatigue (14 sources) Asthenia; Translations: [Weakness] Onset: 5 01-12-2023 Episodic Nausea and vomiting (18 sources) Nausea and vomiting; Translations: [Nausea with vomiting, unspecified] 08-10-2022 Episodic Open wounds of extremities (20 sources) Tear of skin; Translations: [Laceration without foreign body of unspecified elbow, initial encounter] 06-09-2019 Episodic Open wounds of head; neck; and trunk (18 sources) Laceration of forehead; Translations: [Laceration without foreign body of other part of head, initial encounter] 09-20-2021 Episodic Other connective tissue disease (18 sources) Hand pain; Translations: [Pain in right hand] 07-15-2019 Episodic Other connective tissue disease (18 sources) Fibromyalgia; Translations: [Fibromyalgia] 12-03-2018 Episodic Other connective tissue disease (17 sources) Neurological symptom; Translations: [Unspecified symptoms and signs involving the nervous system] 06-24-2022 Episodic Other connective tissue disease (7 sources) Unspecified symptoms and signs involving the nervous system; Translations: [Other symptoms involving nervous and musculoskeletal systems] Episodic Other ear and sense organ disorders (18 sources) Hearing disorder; Translations: [Unspecified hearing loss, unspecified ear] 12-03-2018 Chronic Other endocrine disorders (20 sources) Hypoglycemia; Translations: [Hypoglycemia, unspecified] 06-24-2022 Chronic Other endocrine disorders (7 sources) Hypoglycemia, unspecified; Translations: [Hypoglycemia, unspecified] Chronic Other gastrointestinal disorders (18 sources) Constipation; Translations: [Constipation, unspecified] 03-04-2019 Episodic Other gastrointestinal disorders (18 sources) Loose stool; Translations: [Other fecal abnormalities] 08-10-2022 Episodic Other gastrointestinal disorders (7 sources) Other fecal abnormalities; Translations: [Abnormal feces] 08-10-2022 Episodic Other gastrointestinal disorders (10 sources) Diarrhea; Translations: [Diarrhea, unspecified] 10-23-2022 Episodic Other injuries and conditions due to external causes (18 sources) Local infection of wound; Translations: [Other injury of unspecified body region, initial encounter] 09-22-2021 Episodic Other injuries and conditions due to external causes (20 sources) Injury of head; Translations: [Unspecified injury of head, initial encounter] 09-20-2021 Episodic Other lower respiratory disease (6 sources) Cough; Translations: [Cough] 06-03-2023 Episodic Other nervous system disorders (18 sources) Disorder of brain; Translations: [Encephalopathy, unspecified] 03-03-2019 Chronic Other non-traumatic joint disorders (18 sources) Hip pain; Translations: [Pain in left hip] 07-15-2019 Episodic Other upper respiratory infections (6 sources) Viral upper respiratory tract infection; Translations: [Acute upper respiratory infection, unspecified] 06-03-2023 Episodic Otitis media and related conditions (18 sources) Otosclerosis; 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, unspecified ear] 12-03-2018 Episodic Pancreatic disorders (not diabetes) (14 sources) Exocrine pancreatic insufficiency; 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] 01-12-2023 Episodic Pneumonia (except that caused by tuberculosis or sexually transmitted disease) (18 sources) Pneumonia; Translations: [Pneumonia, unspecified organism] 03-03-2019 Episodic Residual codes; unclassified (18 sources) Sleep apnea; Translations: [Sleep apnea, unspecified] [...] status, unspecified] 06-24-2022 Episodic Residual codes; unclassified (3 sources) Altered mental status, unspecified; Translations: [Altered mental status] Episodic Residual codes; unclassified (9 sources) Delirium; Translations: [Disorientation, unspecified] 01-12-2023 Episodic [...] Systemic lupus erythematosus and connective tissue disorders (18 sources) Sjogren's syndrome; Translations: [Sicca syndrome, unspecified] 12-03-2018 Chronic Urinary tract infections (20 sources) Urinary tract infectious disease; Translations: [Urinary tract infection, site not specified] 12-03-2018 Episodic Past or Other Problems Problem Classification Problem Date Documented Da te Episodic/Chronic Abdominal pain (20 sources) Nonspecific abdominal pain; Translations: [Unspecified abdominal pain] Onset: 07-23-2024 12-03-2018 Episodic Results Test Name Value Interpretation Reference Range Facility Urine Cultureon 02-24-2025 [facility] Escherichia coli [place] Count >100,000 Escherichia coli: REACTION Ampicillin Islt JIMI 4 Ampicillin+Sulbac Islt JIMI <=2 S Cefepime Islt JIMI <=0.12 S cefTRIAXone Islt JIMI <=0.25 S Ciprofloxacin Islt JIMI >=4 R B-Lactamase Extended Susc Islt NEG Gentamicin Islt JIMI <=1 S levoFLOXacin Islt JIMI >=8 R Meropenem Islt JIMI <=0.25 S Nitrofurantoin Islt JIMI <=16 S Pip+Tazo Islt JIMI <=4 S TMP SMX Islt JIMI >=320 R Normal [facility] Comment on above: Performed By: #### M [id number] #### [facility] [address] [place] [address], [id number] Absolute lymphocyte countOrd ered By: Sixto Alvarez on 02-22-2025 Lymphocytes Auto (Unsp spec) [#/Vol] 2.77 10*3/uL 0.83-4.51 [facility] Absolute neutrophil countOrd ered By: Sixto Alvarez on 02-22-2025 Neutrophils (Bld) [#/Vol] 3.1 10*3/uL 2.0-7.7 [facility] Anion gap in Serum or Plasma Ordered By: Sixto Alvarez on 02-22-2025 Anion gap [Moles/Vol] 9 mmol/L 5-15 [facility] Automated lymphocyte count a s percentage of total leukocytesOrdered By: Sixto Alvarez on 02-22-2025 Lymphocytes/100 WBC Auto (Unsp spec) 39.9 % 19-41 [facility] BUN/creatinine ratioOrdered By: Sixto Alvarez on 02-22-2025 Urea nitrogen/Creatinine [Mass ratio] 22.9 mg/mg High 10-20 [facility] Basic Metabolic Profile (BMP )on 02-22-2025 BUN/CRE 22.9 RATIO High 10-20 [facility] Comment on above: Performed By: #### M 100.2200 #### [facility] [address] [place], [address] Calcium [Mass/Vol] 9.2 mg/dL Normal 7.6-11.0 [facility] Comment on above: Performed By: #### M 100.2200 #### [facility] [address] [place], [address] Chloride [Moles/Vol] 106 mmol/L Normal 98-108 [facility] Comment on above: Performed By: #### M 100.2200 #### [facility] [address] [place], [address] CO2 [Moles/Vol] 23.6 mmol/L Normal 21.0-32.0 [facility] Comment on above: Performed By: #### M 100.2200 #### [facility] [address] [place], [address] Creatinine [Mass/Vol] 1.01 mg/dL Normal 0.70-1.20 [facility] Comment on above: Performed By: #### M 100.2200 #### [facility] [address] [place], [address] ECRCL 37.27 ml/min Low 50-250 [facility] Comment on above: Performed By: #### M 100.2200 #### [facility] [address] [place], [address] GAP 9 Normal 5-15 [facility] Comment on above: Performed By: #### M 100.2200 #### [facility] [address] [place], [address] GFR/1.73 sq M.predicted among non-blacks MDRD (S/P/Bld) [Vol rate/Area] 53 mL/min/{1.73_m2} Low >60 [facility] Comment on above: Result Comment: mL/m in/1.73m2 CKD-EPI Creatinine Equation (2020) Performed By: #### M 100.2200 #### [facility] [address] [place], [address] Glucose [Mass/Vol] 138 mg/dL High 70-99 [facility] Comment on above: Performed By: #### M 100.2200 #### [facility] [address] [place], [address] Potassium [Moles/Vol] 4.7 mmol/L Normal 3.3-5.1 [facility] Comment on above: Result Comment: Hemo lysis present, Results??could be affected. ?? Performed By: #### M 100.2200 #### [facility] [address] [place], [address] Sodium [Moles/Vol] 139 mmol/L Normal 133-145 [facility] Comment on above: Performed By: #### M 100.2200 #### [facility] [address] [place], [address] Urea nitrogen [Mass/Vol] 23 mg/dL High 4-19 [facility] Comment on above: Performed By: #### M 100.2200 #### [facility] [address] [place], [address] Basophil percentageOrdered B y: Sixto Alvarez on 02-22-2025 Basophils/100 WBC (Bld) 1.0 % 0-1 [facility] Bilirubin Test strip Ql (U)O rdered By: Sixto Alvarez on 02-22-2025 Bilirubin Ql (U) Negative Negative [facility] Brain/Head without Contrasto n 02-22-2025 Brain/Head without Contrast [facility] Imaging Services [address] [place], [place] [id number] Brain/Head without Contrast MR#: [id number] Acct: [id number] Name: LIZA VELASQUEZ Rep #: [id number] : 1935 F 89 From: Nathaly Carney nd, MD PCP: Dr. Clinton Fowler DO Status: REG ER Study: Brain/Head without Contrast Date of Exam: 02/13 Exam# [id number] Ordering Dr: Sixto Alvarez DO EXAM: BRAIN/HEAD WITHOUT CONTRAST CLINICAL HISTORY: 89 y/o F with CONFUSION. COMPARISON: CT head 01/12/2023. TECHNIQUE: Routine CT imaging of the head without IV contrast. Additional multiplanar reformats were obtained. Dose reduction techniques were used including intermediate exposure control (AEC),iterative reconstruction technique, and/or mA and/or KV dose adjustments based on patient's size. FINDINGS: The ventricles, sulci and cisterns are prominent, suggestive of moderate-severe brain parenchymal volume loss. There is no evidence of acute intracranial hemorrhage or herniation. 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 Moderate patchy and confluent supratentorial white matter hypodensities. 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 There is no midline shift, mass effect, or extra-axial collection. The watson and white matter interfaces are otherwise maintained. The orbits, visualized paranasal sinuses and mastoids are unremarkable. No acute calvarial fracture or scalp hematoma. CT/Brain/Head without Contrast IMPRESSION: No acute intracranial finding. Reading Location: [facility] CC: Dr. Sixto Alvarez DO; Dr. Clinton Fowler DO Concessions Manager: Signed Normal [facility] CBC W/Diff, Automatedon 02-13 Absolute Lymph 2.77 X10 3/uL Normal 0.83-4.51 [facility] Comment on above: Performed By: #### M 100.7130 #### [facility] Laboratory [address] [facility] [place], [place], [address] Absolute Neut 3.1 X10 3/uL Normal 2.0-7.7 [facility] Comment on above: Performed By: #### M 100.2200 #### [facility] Laboratory [address] [place], [address] Basophils/100 WBC (Bld) 1.0 % Normal 0-1 [facility] Comment on above: Performed By: #### M 100.2200 #### [facility] Laboratory [address] [place], [address] Eosinophils/100 WBC (Bld) 3.6 % Normal 0-5 [facility] Comment on above: Performed By: #### M 100.2200 #### [facility] Laboratory [address] [place], [address] Erythrocyte distribution width (RBC) [Ratio] 13.1 % Normal 11.6-14.6 [facility] Comment on above: Performed By: #### M 100.2200 #### [facility] Laboratory [address] [place], [address] Hematocrit (Bld) [Volume fraction] 30.7 % Low 37-47 [facility] Comment on above: Performed By: #### M 100.2200 #### [facility] Laboratory [address] [place], [address] Hemoglobin (Bld) [Mass/Vol] 10.1 g/dL Low 12.0-15. 0 [facility] Comment on above: Performed By: #### M 100.2200 #### [facility] Laboratory [address] [place], [address] IG% 0.600 Normal 0.0-0.9 [facility] Comment on above: Result Comment: IG% - Immature Granulocytes (promyelocytes, myelocytes and metamyelocytes) > 1% indicates that a LEFT SHIFT is Present. Performed By: #### M 100.2200 #### [facility] Laboratory [address] [place], [address] Lymphocytes/100 WBC (Bld) 39.9 % Normal 19-41 [facility] Comment on above: Performed By: #### M 100.2200 #### [facility] Laboratory [address] [place], [address] MCH (RBC) [Entitic mass] 31.3 pg Normal 27.0-32.0 [facility] Comment on above: Performed By: #### M 100.2200 #### [facility] Laboratory [address] [place], [address] MCHC (RBC) [Mass/Vol] 32.9 g/dL Normal 32-36 [facility] Comment on above: Performed By: #### M 100.2200 #### [facility] Laboratory [address] [place], [address] MCV (RBC) [Entitic vol] 95.0 fL Normal 81-[address] [facility] Comment on above: Performed By: #### M 100.2200 #### [facility] Laboratory [address] [place], [address] Monocytes/100 WBC (Bld) 9.9 % Normal 0-[address] [facility] Comment on above: Performed By: #### M 100.2200 #### [facility] Laboratory [address] [place], [address] Neutrophils/100 WBC (Bld) 45.0 % Low 47-70 [facility] Comment on above: Performed By: #### M 100.2200 #### [facility] Laboratory [address] [place], [address] Nucleated RBC (Bld) [#/Vol] 0 10*3/uL Normal 0-5 [facility] Comment on above: Performed By: #### M 100.2200 #### [facility] Laboratory [address] [place], [address] Platelet mean volume (Bld) [Entitic vol] 11.0 fL Normal 6.2-12.0 [facility] Comment on above: Performed By: #### M 100.2200 #### [facility] Laboratory [address] [place], [address] Platelets (Bld) [#/Vol] 165 10*3/uL Normal 150-450 [facility] Comment on above: Performed By: #### M 100.2200 #### [facility] Laboratory [address] [place] [place], [address] RBC (Bld) [#/Vol] 3.23 10*6/uL Low 4.2-5.4 [facility] Comment on above: Performed By: #### M 100.2200 #### [facility] Laboratory [address] [place] [place], [address] RDW SD 45.7 fl High 35.1-43.9 [facility] Comment on above: Performed By: #### M 100.2200 #### [facility] Laboratory [address] [place], [address] WBC (Bld) [#/Vol] 6.9 10*3/uL Normal 4.4-11.0 [facility] Comment on above: Performed By: #### M 100.2200 #### [facility] Laboratory [address] [place], [address] Carbon dioxide, total [Moles /volume] in Central venous bloodOrdered By: Sixto Alvarez on 02-22-2025 CO2 [Moles/Vol] 23.6 mmol/L 21.0-32.0 [facility] Chest PA and Lateralon 02-22 Chest PA and Lateral [facility] Imaging Services [address] [place] [address] Chest PA and Lateral MR#: [id number] Acct: [id number] Name: LIZA VELASQUEZ Rep #: [id number] : 1935 F 89 From: Nathaly Carney nd, MD PCP: Dr. Clinton Fowler DO Status: [facility] ER Study: Chest PA and Lateral Date of Exam: 02/22/25 Exam# [id number] Ordering Dr: Sixto Alvarez DO PROCEDURE: CHEST PA AND LATERAL 02/22/2025 REASON FOR EXAM: CHILLS TECHNIQUE: CHEST PA AND LATERAL COMPARISON: Chest radiograph 06/07/2023. FINDINGS: Hardware: None. Heart: The heart size is normal. Mediastinum: There are atherosclerotic calcifications of the thoracic aorta. Lungs: Calcified right hilar granulomas. Bibasilar atelectasis. No focal consolidation, pleural effusion or pneumothorax. Bones: Degenerative changes are identified within the thoracic spine. RAD/Chest PA and Lateral IMPRESSION: NO ACUTE FINDINGS. Reading Location: [facility] CC: Dr. Sixto Alvarez DO; Dr. Clinton Fowler DO Concessions Manager: Signed Normal [facility] Chloride assayOrdered By: Siva Alvarez on 02-22-2025 Chloride [Moles/Vol] 106 mmol/L 98-108 [facility] Emergency Department Summary on 02-22-2025 Emergency Department Summary [facility] Medical Records Department [address] [place] [address] Emergency Department Summary 02/22/25 MR#: [id number] Acct: [id number] Name: LIZA VELASQUEZ Rep #: [id number] : 1935 89 From: Sixto Alvarez DO PCP: Dr. Clinton Fowler DO Status:DEP ER Location: ED HPI History of Present Illness Chief Complaint: Weakness Informant: spouse/S.O. Onset/Context/Timing Onset: Today Context: Sudden Onset Timing: Intermittent and Lasts (Approximately 30 minutes) Quality: Nonverbal, asleep. Location: Generalized Worsened by: Nothing Relieved by: Nothing Narrative Narrative: Patient presents today with weakness and episode of being nonverbal and unresponsive. states that the patient woke up and ate breakfast this morning. states that patient laid back down after that. states patient got a few hours of sleep after that. Has been states that when the patient woke up after that, she wanted to get dressed. states that she got almost completely dressed when she laid back in the bed and would not talk to him. states that he would call her and startle her with no response. states patient was awake but did not respond to him. states this episode lasted approximately 30 minutes. was concerned that this could have been a stroke and called EMS. states patient is back to her baseline at this time. states patient has been complaining of some chills. denies any fevers. Patient denies any chest pain. Patient denies any shortness of breath or cough. [facility] Medical History GERD (gastroesophageal reflux disease) TIA [...] mg capsule,delayed 40 mg PO DAILY GERD 01/06/1401/11 History release cholecalciferol (vitamin D3) 25 1,000 unit PO DAILY supplement 01/11/23 History mcg (1,000 unit) capsule donepezil 5 mg tablet 10 mg PO QHS memory 08/28/1601/11 History metformin 500 mg tablet 500 mg PO DAILY blood sugar 01/11/23 History cinnamon bark 500 mg capsule 1,000 mg PO DAILY supplement 11/3001/11/23 History atorvastatin 80 mg tablet 80 mg PO QHS cholesterol #30 tabs 12/03/17 01/11/23 Rx cvupkjpd-rhq-mqqwr acid 0.4 1 ea PO BID supplement 12/03/18 History mg-lycopene 300 mcg-lutein 250 mcg tablet memantine 10 mg tablet 10 mg PO BID mental health 2 01/11/23 History ramipril 5 mg capsule 5 mg PO DAILY blood pressure 01/1101/11/23 History ropinirole 0.25 mg tablet 0.5 mg PO QHS restless legs 01/11/23 History Held on 06/07/23. Instructions: unsure if she still takes modafinil 100 mg tablet 200 mg PO DAILY sleepiness 3 01/11/23 History aspirin 81 mg chewable tablet 81 mg PO BREAKFAST #30 tabs 01/11/23 Rx glipizide 5 mg tablet 2.5 mg PO BID DM 01/12/23 01/11/23 History acetaminophen 500 mg tablet 500 mg PO Q4H PRN fever or pain Unknown History (Tylenol Extra Strength) wbnzaj-fxiuxcqa-tntfl se 3 cap PO .aqc #300 caps 07/24/24 U nknown Rx 36,000-114,000-180,00 0 unit capsule,delay rel (Creon) nitrofurantoin 100 mg PO Q12 #10 CAPSULES 5 Unknown Rx monohydrate/macrocrys tals 100 mg capsule Allergy/AdvReac Type Severity Reaction Status Date / Time pollen extracts Allergy Intermediate PT UNSURE Verified 02/22/25 14:46 OF REACTION Family History Mother Alzheimer disease Brother Alzheimer disease Aunt Alzheimer disease Father Heart disease Surgical History H/O lumpectomy H/O: hysterectomy History of tonsillectomy Social History household members: spouse Smoking Status: Never smoker alcohol intake: never substance use type: does not use ROS ROS ED Review of Systems ROS Unobtainable: due t (more content not included)... Normal [facility] Eosinophil percentageOrdered By: Sixto Alvarez on 02-22-2025 Eosinophils/100 WBC (Bld) 3.6 % 0-5 [facility] Erythrocyte distribution wid th ratioOrdered By: Sixto Alvarez on 02-22-2025 Erythrocyte distribution width (RBC) [Ratio] 13.1 % 11.6-14.6 [facility] Erythrocyte distribution wid th standard deviationOrdered By: Sixto Alvarez on 02-22-2025 Erythrocyte distribution width (RBC) [Ratio] 45.7 fl High 35.1-43.9 [facility] Glomerular filtration rate ( GFR) estimation/1.73 sq m using serum, plasma, or whole bOrdered By: Sixto Alvarez on 02-22-2025 GFR/1.73 sq M.predicted among non-blacks MDRD (S/P/Bld) [Vol rate/Area] 53 mL/min/{1.73_m2} Low >60 [facility] Comment on above: mL/min/1.73m2 CKD-EP I Creatinine Equation (2020) Hematocrit Auto (Bld) [Volum e fraction]Ordered By: Sixto Alvarez on 02-22-2025 Hematocrit (Bld) [Volume fraction] 30.7 % Low 37-47 [facility] Hemoglobin measurementOrdere d By: Sixto Alvarez on 02-22-2025 Hemoglobin (Bld) [Mass/Vol] 10.1 g/dL Low 12.0-15. 0 [facility] Immature granulocytes/100 WB C Auto (Bld)Ordered By: Sixto Alvarez on 02-22-2025 Immature granulocytes/100 WBC (Bld) 0.600 % 0.0-0.9 [facility] Comment on above: IG% - Immature Granu locytes (promyelocytes, myelocytes and metamyelocytes) > 1% indicates that a LEFT SHIFT is Present. Ketones Test strip Ql (U)Ord ered By: Sixto Alvarez on 02-22-2025 Ketones Ql (U) Negative Negative [facility] MCV (mean corpuscular volume ) determinationOrdered By: Sixto Alvarez on 02-22-2025 MCV (RBC) [Entitic vol] 95.0 fL 81-99 [facility] Mean corpuscular hemoglobin (MCH) determinationOrdered By: Sixto Alvarez 02-22-2025 MCH (RBC) [Entitic mass] 31.3 pg 27.0-32.0 [facility] Mean corpuscular hemoglobin concentration (MCHC) determinationOrdered By: Sixto Alvarez on 02-22-2025 MCHC (RBC) [Mass/Vol] 32.9 g/dL 32-36 [facility] Mean platelet volume determi nationOrdered By: Sixto Alvarez on 02-22-2025 Platelet mean volume (Bld) [Entitic vol] 11.0 fL 6.2-12.0 [facility] Microscopic analysis of urin e for red blood cells (RBC)Ordered By: Sixto Alvarez on 02-22-2025 Microscopic analysis of urine for red blood cells (RBC) 0 SEEN /hpf 0-5 [facility] Monocyte percentageOrdered B y: Sixto Alvarez on 02-22-2025 Monocytes/100 WBC (Bld) 9.9 % 0-10 [facility] Mucus LM Ql (Urine sed)Order ed By: Sixto Alvarez on 02-22-2025 Mucus Ql (Urine sed) RARE /hpf [facility] Neutrophil percentageOrdered By: Sixto Alvarez on 02-22-2025 Neutrophils/100 WBC (Bld) 45.0 % Low 47-70 [facility] Nitrite Test strip Ql (U)Ord ered By: Sixto Alvarez on 02-22-2025 Nitrite Ql (U) Negative Negative [facility] Nucleated red blood cell per centageOrdered By: Sixto Alvarez on 02-22-2025 Nucleated RBC/100 WBC (Bld) [Ratio] 0 % 0-5 [facility] Platelet countOrdered By: Siva Alvarez on 02-22-2025 Platelets (Bld) [#/Vol] 165 10*3/uL 150-450 [facility] Potassium measurement (mass/ volume)Ordered By: Sixto Alvarez on 02-22-2025 Potassium (Unsp spec) [Mass/Vol] 4.7 mmol/L 3.3-5.1 [facility] Comment on above: Hemolysis present, R esults could be affected. Protein Test strip Ql (U)Ord ered By: Sixto Alvarez on 02-22-2025 Protein Ql (U) 15 mg/dl High Negative [facility] RBC Auto (Bld) [#/Vol]Ordere d By: Sixto Alvarez on 02-22-2025 RBC (Bld) [#/Vol] 3.23 10*6/uL Low 4.2-5.4 [facility] Serum creatinine measurement (mass/volume)Ordered By: Sixto Alvarez on 02-22-2025 Creatinine [Mass/Vol] 1.01 mg/dL 0.70-1.20 [facility] Serum glucose measurement (m ass/volume)Ordered By: Sixto Alvarez on 02-22-2025 Glucose [Mass/Vol] 138 mg/dL High 70-99 [facility] Serum or plasma calcium beck urement (mass/volume)Ordered By: Sixto Alvarez on 02-22-2025 Calcium [Mass/Vol] 9.2 mg/dL 7.6-11.0 [facility] Serum or plasma urea nitroge n measurement (mass/volume)Ordered By: Sixto Alvarez on 02-22-2025 Urea nitrogen [Mass/Vol] 23 mg/dL High 4-19 [facility] Sodium levelOrdered By: Sixto Alvarez on 02-22-2025 Sodium [Moles/Vol] 139 mmol/L 133-145 [facility] Squamous epithelial cells de tection in urine sediment by light microscopyOrdered By: Sixto Alvarez on 02-22-2025 Epithelial cells.squamous LM Ql (Urine sed) 0-5 SEEN /hpf - [facility] Urinalysis, Completeon 02-22 EPI,RENAL 0-5 SEEN Normal 0-5 [facility] Comment on above: Order Comment: CLEAN CATCH Performed By: #### L 400.0001 #### [facility] Laboratory [address] [place], [place], [id number] BACTERIA 2+ /hpf Normal None Seen [facility] Comment on above: Order Comment: CLEAN CATCH Performed By: #### L 400.0001 #### [facility] [address] [place], [place], [id number] EPI,SQUAMOUS 0-5 SEEN Normal - [facility] Comment on above: Order Comment: CLEAN CATCH Performed By: #### L 400.0001 #### [facility] [address] [place], [address] Mucus Ql (Urine sed) RARE Normal [facility] Comment on above: Order Comment: CLEAN CATCH Performed By: #### L 400.0001 #### [facility] [address] [place], [address] WBC 5-10 SEEN Normal 0-5 [facility] Comment on above: Order Comment: CLEAN CATCH Performed By: #### L 400.0001 #### [facility] [address] [place], [address] RBC 0 SEEN Normal 0-5 [facility] Comment on above: Order Comment: CLEAN CATCH Performed By: #### L 400.0001 #### [facility] [address] [place], [place], [id number] Urine clarityOrdered By: Debbie Alvarez on 02-22-2025 Clarity (U) Clear Clear [facility] Urine color determinationOrd ered By: Sixto Alvarez on 02-22-2025 Color (U) Yellow Yellow [facility] Urine glucose detectionOrder ed By: Sixto Alvarez on 02-22-2025 Glucose Ql (U) Normal mg/dl Normal [facility] Urine leukocyte esterase det ection by dipstickOrdered By: Sixto Alvarez on 02-22-2025 Leukocyte esterase Test strip Ql (U) 100 /ul High Negative [facility] Urine pHOrdered By: Sixto hollingsworth on 02-22-2025 pH (U) 6.0 [pH] 5.0 - 8.0 [facility] Urine sediment bacteria coun t by microscopy (number/high power field)Ordered By: Sixto Alvarez on 02-22-2025 Bacteria LM.HPF (Urine sed) [#/Area] 2 /[HPF] None Seen [facility] Urine sediment renal epithel ial cell count by microscopy (number/high power field)Ordered By: Sixto Alvarez on 02-22-2025 Epithelial cells.renal LM.HPF (Urine sed) [#/Area] 0 /[HPF] 0-5 [facility] Urine specific gravity measu rementOrdered By: Sixto Alvarez on 02-22-2025 Specific gravity (U) [Rel density] 1.015 1.002-1.030 [facility] Urine urobilinogen measureme ntOrdered By: Sixto Alvarez on 02-22-2025 Urobilinogen Ql (U) Normal mg/dl Normal [facility] White blood cell (WBC) count Ordered By: Sixto Alvarez on 02-22-2025 WBC (Bld) [#/Vol] 6.9 10*3/uL 4.4-11.0 [facility] White blood cell countOrdere d By: Sixto Alvarez on 02-22-2025 White blood cell count 5-10 SEEN /hpf 0-5 [facility] Absolute lymphocyte countOrd ered By: Clinton Fowler on 01-01-2025 Lymphocytes Auto (Unsp spec) [#/Vol] 2.08 10*3/uL 0.83-4.51 [facility] Absolute neutrophil countOrd ered By: Clinton Fowler on 01-01-2025 Neutrophils (Bld) [#/Vol] 3.3 10*3/uL 2.0-7.7 [facility] Anion gap in Serum or Plasma Ordered By: Clinton Fowler on 01-01-2025 Anion gap [Moles/Vol] 10 mmol/L 5-15 [facility] Automated lymphocyte count a s percentage of total leukocytesOrdered By: Clinton Fowler on 01-01-2025 Lymphocytes/100 WBC Auto (Unsp spec) 32.7 % 19-41 [facility] BUN/creatinine ratioOrdered By: Clinton Fowler on 01-01-2025 Urea nitrogen/Creatinine [Mass ratio] 19.7 mg/mg 10-20 [facility] Basophil percentageOrdered B y: Clinton Fowler on 01-01-2025 Basophils/100 WBC (Bld) 1.4 % High 0-1 [facility] Bilirubin, totalOrdered By: Clinton Fowler on 01-01-2025 Bilirubin [Mass/Vol] 0.38 mg/dL 0.00-1.30 [facility] CBC W/Diff, Automatedon 12-14 Absolute Lymph 2.08 X10 3/uL Normal 0.83-4.51 [facility] Comment on above: Performed By: #### L 500.4050, L501.9985, L100.0100 #### [facility] Laboratory [address] [place], [address] Absolute Neut 3.3 X10 3/uL Normal 2.0-7.7 [facility] Comment on above: Performed By: #### L 500.4050, L501.9985, L100.0100 #### [facility] [address] [place], [address] Basophils/100 WBC (Bld) 1.4 % High 0-1 [facility] Comment on above: Performed By: #### L 500.4050, L501.9985, L100.0100 #### [facility] [address] [place], [address] Eosinophils/100 WBC (Bld) 3.3 % Normal 0-5 [facility] Comment on above: Performed By: #### L 500.4050, L501.9985, L100.0100 #### [facility] [address] [place], [address] Erythrocyte distribution width (RBC) [Ratio] 13.3 % Normal 11.6-14.6 [facility] Comment on above: Performed By: #### L 500.4050, L501.9985, L100.0100 #### [facility] [address] [place], [address] Hematocrit (Bld) [Volume fraction] 31.6 % Low 37-47 [facility] Comment on above: Performed By: #### L 500.4050, L501.9985, L100.0100 #### [facility] [address] [place], [address] Hemoglobin (Bld) [Mass/Vol] 10.3 g/dL Low 12.0-15. 0 [facility] Comment on above: Performed By: #### L 500.4050, L501.9985, L100.0100 #### [facility] [address] [place], [address] IG% 0.300 Normal 0.0-0.9 [facility] Comment on above: Result Comment: IG% - Immature Granulocytes (promyelocytes, myelocytes and metamyelocytes) > 1% indicates that a LEFT SHIFT is Present. Performed By: #### L 500.4050, L501.9985, L100.0100 #### [facility] [address] [place], [address] Lymphocytes/100 WBC (Bld) 32.7 % Normal 19-41 [facility] Comment on above: Performed By: #### L 500.4050, L501.9985, L100.0100 #### [facility] [address] [place], [address] MCH (RBC) [Entitic mass] 30.6 pg Normal 27.0-32.0 [facility] Comment on above: Performed By: #### L 500.4050, L501.9985, L100.0100 #### [facility] [address] [place], [address] MCHC (RBC) [Mass/Vol] 32.6 g/dL Normal 32-36 [facility] Comment on above: Performed By: #### L 500.4050, L501.9985, L100.0100 #### [facility] [address] [place], [address] MCV (RBC) [Entitic vol] 93.8 fL Normal 81-99 [facility] Comment on above: Performed By: #### L 500.4050, L501.9985, L100.0100 #### [facility] [address] [place], [address] Monocytes/100 WBC (Bld) 10.0 % Normal 0-10 [facility] Comment on above: Performed By: #### L 500.4050, L501.9985, L100.0100 #### [facility] [address] [place], [address] Neutrophils/100 WBC (Bld) 52.3 % Normal 47-70 [facility] Comment on above: Performed By: #### L 500.4050, L501.9985, L100.0100 #### [facility] [address] [place], [address] Nucleated RBC (Bld) [#/Vol] 0 10*3/uL Normal 0-5 [facility] Comment on above: Performed By: #### L 500.4050, L501.9985, L100.0100 #### [facility] [address] [place], [address] Platelet mean volume (Bld) [Entitic vol] 11.5 fL Normal 6.2-12.0 [facility] Comment on above: Performed By: #### L 500.4050, L501.9985, L100.0100 #### [facility] [address] [place], [address] Platelets (Bld) [#/Vol] 179 10*3/uL Normal 150-450 [facility] Comment on above: Performed By: #### L 500.4050, L501.9985, L100.0100 #### [facility] [address] [place], [address] RBC (Bld) [#/Vol] 3.37 10*6/uL Low 4.2-5.4 [facility] Comment on above: Performed By: #### L 500.4050, L501.9985, L100.0100 #### [facility] [address] [place], [address] RDW SD 46.0 fl High 35.1-43.9 [facility] Comment on above: Performed By: #### L 500.4050, L501.9985, L100.0100 #### [facility] [address] [place], [address] WBC (Bld) [#/Vol] 6.4 10*3/uL Normal 4.4-11.0 [facility] Comment on above: Performed By: #### L 500.4050, L501.9985, L100.0100 #### [facility] [address] [place], [address] Carbon dioxide, total [Moles /volume] in Central venous bloodOrdered By: Clinton Fowler on 01-01-2025 CO2 [Moles/Vol] 23.1 mmol/L 21.0-32.0 [facility] Chloride assayOrdered By: Bettie Fowler on 01-01-2025 Chloride [Moles/Vol] 106 mmol/L 98-108 [facility] Comprehensive Metabolic Prof ilon 01-01-2025 Albumin [Mass/Vol] 3.5 g/dL Normal 3.4-4.8 [facility] Comment on above: Performed By: #### L 500.4050, L501.9985, L100.0100 #### [facility] [address] [place], [address] Albumin/Globulin [Mass ratio] 1.4 {ratio} Normal 0.9-2.4 [facility] Comment on above: Performed By: #### L 500.4050, L501.9985, L100.0100 #### [facility] [address] [place], [address] ALK PHOS 74 U/L Normal 35-104 [facility] Comment on above: Performed By: #### L 500.4050, L501.9985, L100.0100 #### [facility] [address] [place], [address] ALT [Catalytic activity/Vol] 24 U/L Normal <=34 [facility] Comment on above: Performed By: #### L 500.4050, L501.9985, L100.0100 #### [facility] [address] [place], [address] AST [Catalytic activity/Vol] 27 U/L Normal <=31 [facility] Comment on above: Performed By: #### L 500.4050, L501.9985, L100.0100 #### [facility] [address] [place], [address] Bilirubin [Mass/Vol] 0.38 mg/dL Normal 0.00-1.30 [facility] Comment on above: Performed By: #### L 500.4050, L501.9985, L100.0100 #### [facility] [address] [place], [address] BUN/CRE 19.7 RATIO Normal 10-20 [facility] Comment on above: Performed By: #### L 500.4050, L501.9985, L100.0100 #### [facility] [address] [place], [address] Calcium [Mass/Vol] 9.4 mg/dL Normal 7.6-11.0 [facility] Comment on above: Performed By: #### L 500.4050, L501.9985, L100.0100 #### [facility] [address] [place], [address] Chloride [Moles/Vol] 106 mmol/L Normal 98-108 [facility] Comment on above: Performed By: #### L 500.4050, L501.9985, L100.0100 #### [facility] [address] [place], [address] CO2 [Moles/Vol] 23.1 mmol/L Normal 21.0-32.0 [facility] Comment on above: Performed By: #### L 500.4050, L501.9985, L100.0100 #### [facility] [address] [place], [address] Creatinine [Mass/Vol] 0.95 mg/dL Normal 0.70-1.20 [facility] Comment on above: Performed By: #### L 500.4050, L501.9985, L100.0100 #### [facility] [address] [place], [address] GAP 10 Normal 5-15 [facility] Comment on above: Performed By: #### L 500.4050, L501.9985, L100.0100 #### [facility] [address] [place], [address] GFR/1.73 sq M.predicted among non-blacks MDRD (S/P/Bld) [Vol rate/Area] 58 mL/min/{1.73_m2} Low >60 [facility] Comment on above: Result Comment: mL/m in/1.73m2 CKD-EPI Creatinine Equation (2020) Performed By: #### L 500.4050, L501.9985, L100.0100 #### [facility] [address] [place], [address] Globulin (S) [Mass/Vol] 2.6 g/dL Normal 2.2-4.[address] [facility] Comment on above: Performed By: #### L 500.4050, L501.9985, L100.0100 #### [facility] [address] [place], [address] Glucose [Mass/Vol] 172 mg/dL High 70-99 [facility] Comment on above: Performed By: #### L 500.4050, L501.9985, L100.0100 #### [facility] [address] [place], [address] Potassium [Moles/Vol] 4.2 mmol/L Normal 3.3-5.1 [facility] Comment on above: Performed By: #### L 500.4050, L501.9985, L100.0100 #### [facility] [address] [place], [address] Sodium [Moles/Vol] 139 mmol/L Normal 133-145 [facility] Comment on above: Performed By: #### L 500.4050, L501.9985, L100.0100 #### [facility] [address] [place], [address] T PROT 6.1 g/dL Normal 5.9-8.4 [facility] Comment on above: Performed By: #### L 500.4050, L501.9985, L100.0100 #### [facility] [address] [place], [address] Urea nitrogen [Mass/Vol] 19 mg/dL Normal 4-19 [facility] Comment on above: Performed By: #### L 500.4050, L501.9985, L100.0100 #### [facility] [address] [place], [address] Eosinophil percentageOrdered By: Clinton Fowler on 01-01-2025 Eosinophils/100 WBC (Bld) 3.3 % 0-5 [facility] Erythrocyte distribution wid th ratioOrdered By: Clinton Fowler on 01-01-2025 Erythrocyte distribution width (RBC) [Ratio] 13.3 % 11.6-14.6 [facility] Erythrocyte distribution wid th standard deviationOrdered By: Clinton Fowler on 01-01-2025 Erythrocyte distribution width (RBC) [Ratio] 46.0 fl High 35.1-43.9 [facility] Glomerular filtration rate ( GFR) estimation/1.73 sq m using serum, plasma, or whole bOrdered By: Clinton Fowler on 01-01-2025 GFR/1.73 sq M.predicted among non-blacks MDRD (S/P/Bld) [Vol rate/Area] 58 mL/min/{1.73_m2} Low >60 [facility] Comment on above: mL/min/1.73m2 CKD-EP I Creatinine Equation (2020) Hematocrit Auto (Bld) [Volum e fraction]Ordered By: Clinton Fowler on 01-01-2025 Hematocrit (Bld) [Volume fraction] 31.6 % Low 37-47 [facility] Hemoglobin A1con 01-01-2025 HbA1c (Bld) [Mass fraction] 7.1 % High <=5.6 [facility] Comment on above: Result Comment: Norm al < 5.7 % Prediabetic 5.7 - 6.4 % Diabetic >or= 6.5 % Please note range changes. Performed By: #### L 500.4050, L501.9985, L100.0100 #### [facility] [place] [address] [address], [address] Hemoglobin A1c percentageOrd ered By: Clinton Fowler on 01-01-2025 HbA1c (Bld) [Mass fraction] 7.1 % High <5.7 [facility] Comment on above: Normal < 5.7 % Predi abetic 5.7 - 6.4 % Diabetic >or= 6.5 % Please note range changes. Hemoglobin measurementOrdere d By: Clinton Fowler on 01-01-2025 Hemoglobin (Bld) [Mass/Vol] 10.3 g/dL Low 12.0-15. 0 [facility] Immature granulocytes/100 WB C Auto (Bld)Ordered By: Clinton Fowler on 01-01-2025 Immature granulocytes/100 WBC (Bld) 0.300 % 0.0-0.9 [facility] Comment on above: IG% - Immature Granu locytes (promyelocytes, myelocytes and metamyelocytes) > 1% indicates that a LEFT SHIFT is Present. Laboratory - Chemistry and C hemistry - challengeOrdered By: Clinton Fowler on 01-01-2025 AST [Catalytic activity/Vol] 27 U/L <32 [facility] MCV (mean corpuscular volume ) determinationOrdered By: Clinton Fowler on 01-01-2025 MCV (RBC) [Entitic vol] 93.8 fL 81-99 [facility] Mean corpuscular hemoglobin (MCH) determinationOrdered By: Clinton Fowler on 01-01-2025 MCH (RBC) [Entitic mass] 30.6 pg 27.0-32.0 [facility] Mean corpuscular hemoglobin concentration (MCHC) determinationOrdered By: Clinton Fowler on 01-01-2025 MCHC (RBC) [Mass/Vol] 32.6 g/dL 32-36 [facility] Mean platelet volume determi nationOrdered By: Clinton Fowler on 01-01-2025 Platelet mean volume (Bld) [Entitic vol] 11.5 fL 6.2-12.0 [facility] Monocyte percentageOrdered B y: Clinton Fowler on 01-01-2025 Monocytes/100 WBC (Bld) 10.0 % 0-10 [facility] Neutrophil percentageOrdered By: Clinton Fowler on 01-01-2025 Neutrophils/100 WBC (Bld) 52.3 % 47-70 [facility] Nucleated red blood cell per centageOrdered By: Clinton Fowler on 01-01-2025 Nucleated RBC/100 WBC (Bld) [Ratio] 0 % 0-5 [facility] Platelet countOrdered By: Bettie Fowler on 01-01-2025 Platelets (Bld) [#/Vol] 179 10*3/uL 150-450 [facility] Potassium measurement (mass/ volume)Ordered By: Clinton Fowler on 01-01-2025 Potassium (Unsp spec) [Mass/Vol] 4.2 mmol/L 3.3-5.1 [facility] RBC Auto (Bld) [#/Vol]Ordere d By: Clinton Fowler on 01-01-2025 RBC (Bld) [#/Vol] 3.37 10*6/uL Low 4.2-5.4 [facility] Serum creatinine measurement (mass/volume)Ordered By: Clinton Fowler on 01-01-2025 Creatinine [Mass/Vol] 0.95 mg/dL 0.70-1.20 [facility] Serum globulin measurementOr dered By: Clinton Fowler on 01-01-2025 Globulin (S) [Mass/Vol] 2.6 g/dL 2.2-4.2 [facility] Serum glucose measurement (m ass/volume)Ordered By: Clinton Fowler on 01-01-2025 Glucose [Mass/Vol] 172 mg/dL High 70-99 [facility] Serum or plasma alanine lay otransferase (ALT) measurementOrdered By: Clinton Fowler on 01-01-2025 ALT [Catalytic activity/Vol] 24 U/L <35 [facility] Serum or plasma albumin beck urement (mass/volume)Ordered By: Clinton Fowler on 01-01-2025 Albumin [Mass/Vol] 3.5 g/dL 3.4-4.8 [facility] Serum or plasma albumin/glob ulin mass ratioOrdered By: Clinton Fowler on 01-01-2025 Albumin/Globulin [Mass ratio] 1.4 {ratio} 0.9-2.4 [facility] Serum or plasma alkaline hector sphatase measurementOrdered By: Clinton Fowler on 01-01-2025 ALP [Catalytic activity/Vol] 74 U/L 35-104 [facility] Serum or plasma calcium beck urement (mass/volume)Ordered By: Clinton Fowler on 01-01-2025 Calcium [Mass/Vol] 9.4 mg/dL 7.6-11.0 [facility] Serum or plasma urea nitroge n measurement (mass/volume)Ordered By: Clinton Fowler on 01-01-2025 Urea nitrogen [Mass/Vol] 19 mg/dL 4-19 [facility] Sodium levelOrdered By: Clinton Fowler on 01-01-2025 Sodium [Moles/Vol] 139 mmol/L 133-145 [facility] Total proteinOrdered By: Brynn Fowler on 01-01-2025 Protein [Mass/Vol] 6.1 g/dL 5.9-8.4 [facility] White blood cell (WBC) count Ordered By: Clinton Fowler on 01-01-2025 WBC (Bld) [#/Vol] 6.4 10*3/uL 4.4-11.0 [facility] Gastroenterology Visit Repor ton 12-11-2024 Gastroenterology Visit Report [facility] Gastroenterology [address] [place] [address] OFFICE VISIT Date of Service: 12/11/24 MR#: [id number] Acct: [id number] Name: LIZA VELASQUEZ Rep #: [id number] : 1935 Provider: Hung Adames DO Age/Sex: 89/F Location: [facility] Status: Signed Intake Vital Signs 06/07/23 22:34 [...] QHS cholesterol #30 tabs 12/03/17 12/11/24 Rx fjwfyamc-que-aqoxu acid 0.4 1 ea PO BID supplement [...] 12/11/24 Rx monohydrate/macrocrys tals 100 mg capsule rzpjzw-hahhhhof-rutxb se 3 cap PO .aqc #300 caps 07/24/24 0 12/11/24 Rx 36,000-114,000-180,00 0 unit capsule,delay rel (Creon) Have you fallen in the past year?: No PFSH Medical History GERD (gastroesophageal reflux disease) TIA [...] total fecal fat elevated, elastase L75 OV 08.10.22 Loose stools ??? biochemical workup, stool studies, imaging. ? Biochemical workup CBC, ESR, coagulation, ferritin, LFT, CRP, TS (more content not included)... Normal [facility] Urine Cultureon 06-30-2024 [facility] Presumptive E. coli [place] Count >100,000 Presumptive E. coli: REACTION Ampicillin Islt JIMI 4 Ampicillin+Sulbac Islt JIMI <=2 S Cefepime Islt JIMI <=0.12 S cefTRIAXone Islt JIMI <=0.25 S Ciprofloxacin Islt JIMI >=4 R B-Lactamase Extended Susc Islt NEG Gentamicin Islt JIMI <=1 S levoFLOXacin Islt JIMI >=8 R Meropenem Islt JIMI <=0.25 S Nitrofurantoin Islt JIMI <=16 S Pip+Tazo Islt JIMI <=4 S TMP SMX Islt JMII <=20 S Normal [facility] Comment on above: Performed By: #### M 100.2200 #### [facility] [address] [place], [place], [id number] Urine Cultureon 06-29-2024 URC UNABLE TO CHANGE INTERFACE TO CLEAN CATCH Urine Culture Normal [facility] Comment on above: Performed By: #### M 100.2200 #### [facility] [address] [place], [place], [address] Abdomen/Pelvis without Conto n 06-28-2024 Abdomen/Pelvis without Cont [facility] Imaging Services [address] [place] [address] Abdomen/Pelvis without Cont MR#: [id number] Acct: [id number] Name: LIZA VELASQUEZ Rep #: [id number] : 1935 F 89 From: Lauren Sahni MD PCP: Dr. Clinton Fowler, DO Status: REG ER Study: Abdomen/Pelvis without Cont Date of Exam: 06/15 11/06 Exam# [id number] Ordering Dr: Nikita Alvarado MD [id number] INDICATION: Right lower quadrant pain. PATIENT HAS [...] Nikita Alvarado MD; Dr. Clinton Fowler DO Concessions Manager: Signed Normal [facility] CBC W/Diff, Automatedon 06-15 Absolute Lymph 2.45 X10 3/uL Normal 0.83-4.51 [facility] Comment on above: Performed By: #### L 500.4050, L100.0100 #### [facility] [address] [place], [address] Absolute Neut 4.5 X10 3/uL Normal 2.0-7.7 [facility] Comment on above: Performed By: #### L 500.4050, L100.0100 #### [facility] [address] [place], [address] Basophils/100 WBC (Bld) 0.9 % Normal 0-1 [facility] Comment on above: Performed By: #### L 500.4050, L100.0100 #### [facility] [address] [place], [address] Eosinophils/100 WBC (Bld) 3.7 % Normal 0-5 [facility] Comment on above: Performed By: #### L 500.4050, L100.0100 #### [facility] [address] [place], [address] Erythrocyte distribution width (RBC) [Ratio] 13.2 % Normal 11.6-14.6 [facility] Comment on above: Performed By: #### L 500.4050, L100.0100 #### [facility] [address] [place], [address] Hematocrit (Bld) [Volume fraction] 33.9 % Low 37-47 [facility] Comment on above: Performed By: #### L 500.4050, L100.0100 #### [facility] [address] [place], [address] Hemoglobin (Bld) [Mass/Vol] 11.2 g/dL Low 12.0-15. 0 [facility] Comment on above: Performed By: #### L 500.4050, L100.0100 #### [facility] [address] [place], [address] IG% 0.600 Normal 0.0-0.9 [facility] Comment on above: Result Comment: IG% - Immature Granulocytes (promyelocytes, myelocytes and metamyelocytes) > 1% indicates that a LEFT SHIFT is Present. Performed By: #### L 500.4050, L100.0100 #### [facility] [address] [place], [address] Lymphocytes/100 WBC (Bld) 30.6 % Normal 19-41 [facility] Comment on above: Performed By: #### L 500.4050, L100.0100 #### [facility] [address] [place], [address] MCH (RBC) [Entitic mass] 31.6 pg Normal 27.0-32.0 [facility] Comment on above: Performed By: #### L 500.4050, L100.0100 #### [facility] [address] [place], [address] MCHC (RBC) [Mass/Vol] 33.0 g/dL Normal 32-36 [facility] Comment on above: Performed By: #### L 500.4050, L100.0100 #### [facility] [address] [place], [address] MCV (RBC) [Entitic vol] 95.8 fL Normal 81-[address] [facility] Comment on above: Performed By: #### L 500.4050, L100.0100 #### [facility] [address] [place], [address] Monocytes/100 WBC (Bld) 8.5 % Normal 0-[address] [facility] Comment on above: Performed By: #### L 500.4050, L100.0100 #### [facility] [address] [place], [address] Neutrophils/100 WBC (Bld) 55.7 % Normal 47-70 [facility] Comment on above: Performed By: #### L 500.4050, L100.0100 #### [facility] [address] [place], [address] Nucleated RBC (Bld) [#/Vol] 0 10*3/uL Normal 0-5 [facility] Comment on above: Performed By: #### L 500.4050, L100.0100 #### [facility] [address] [place], [address] Platelet mean volume (Bld) [Entitic vol] 10.4 fL Normal 6.2-12.0 [facility] Comment on above: Performed By: #### L 500.4050, L100.0100 #### [facility] [address] [place], [address] Platelets (Bld) [#/Vol] 208 10*3/uL Normal 150-450 [facility] Comment on above: Performed By: #### L 500.4050, L100.0100 #### [facility] [address] [place], [address] RBC (Bld) [#/Vol] 3.54 10*6/uL Low 4.2-5.4 [facility] Comment on above: Performed By: #### L 500.4050, L100.0100 #### [facility] [address] [place], [address] RDW SD 46.5 fl High 35.1-43.9 [facility] Comment on above: Performed By: #### L 500.4050, L100.0100 #### [facility] [address] [place], [address] WBC (Bld) [#/Vol] 8.0 10*3/uL Normal 4.4-11.0 [facility] Comment on above: Performed By: #### L 500.4050, L100.0100 #### [facility] [address] [place], [address] Comprehensive Metabolic Prof kson 06-28-2024 Albumin [Mass/Vol] 3.3 g/dL Normal 3.2-5.0 [facility] Comment on above: Performed By: #### M 100.2200 #### [facility] [address] [place], [address] Albumin/Globulin [Mass ratio] 1.0 {ratio} Normal 0.9-2.4 [facility] Comment on above: Performed By: #### M 100.2200 #### [facility] [address] [place], [address] ALK P 79 U/L Normal 45-117 [facility] Comment on above: Performed By: #### M 100.2200 #### [facility] [address] [place], [address] ALT [Catalytic activity/Vol] 24 U/L Normal 13-56 [facility] Comment on above: Performed By: #### M 100.2200 #### [facility] [address] [place], [address] AST [Catalytic activity/Vol] 19 U/L Normal 15-37 [facility] Comment on above: Performed By: #### M 100.2200 #### [facility] [address] [place], [address] Bilirubin [Mass/Vol] 0.30 mg/dL Normal 0.20-1.00 [facility] Comment on above: Result Comment: For patients on eltrombopag therapy, use of Dimension [place] TBIL is not recommended. Performed By: #### M 100.2200 #### [facility] [address] [place], [address] BUN/CRE 26.7 RATIO High 10-20 [facility] Comment on above: Performed By: #### M 100.2200 #### [facility] [address] [place], [address] CA,Total 9.0 mg/dL Normal 8.5-10.1 [facility] Comment on above: Performed By: #### M 100.2200 #### [facility] [address] [place], [address] Chloride [Moles/Vol] 107 mmol/L Normal 98-107 [facility] Comment on above: Performed By: #### M 100.2200 #### [facility] [address] [place], [address] CO2 [Moles/Vol] 30.0 mmol/L Normal 21.0-32.0 [facility] Comment on above: Performed By: #### M 100.2200 #### [facility] [address] [place], [address] Creatinine [Mass/Vol] 1.05 mg/dL High 0.55-1.02 [facility] Comment on above: Result Comment: The validity of the calculated GFR GFRAA in patients over 70 years has not been determined. Clinical correlation is essential. Performed By: #### M 100.2200 #### [facility] [address] [place], [address] ECRCL 37.79 ml/min Normal [facility] Comment on above: Performed By: #### M 100.2200 #### [facility] [address] [place], [address] EST GFR - AA 64 mL/min Normal >60 [facility] Comment on above: Result Comment: Afri can Prydeinig GFR Calc Performed By: #### M 100.2200 #### [facility] [address] [place], [address] GAP 1 Low 5-15 [facility] Comment on above: Performed By: #### M 100.2200 #### [facility] [address] [place], [address] GFR/1.73 sq M.predicted among non-blacks MDRD (S/P/Bld) [Vol rate/Area] 53 mL/min/{1.73_m2} Low >60 [facility] Comment on above: Result Comment: Non- GFR Calc Performed By: #### M 100.2200 #### [facility] [address] [place], [address] Globulin (S) [Mass/Vol] 3.2 g/dL Normal 2.2-4.2 [facility] Comment on above: Performed By: #### M 100.2200 #### [facility] [address] [place], [address] Glucose [Mass/Vol] 176 mg/dL High 74-106 [facility] Comment on above: Result Comment: Fast ing Glucose result greater than or equal to 126 mg/dL suggests DIABETES MELLITUS per A.D.A. criteria. Performed By: #### M 100.2200 #### [facility] [address] [place], [address] Potassium [Moles/Vol] 4.4 mmol/L Normal 3.5-5.1 [facility] Comment on above: Performed By: #### M 100.2200 #### [facility] [address] [place], [address] Sodium [Moles/Vol] 139 mmol/L Normal 136-145 [facility] Comment on above: Performed By: #### M 100.2200 #### [facility] [address] [place], [address] T PROT 6.5 g/dL Normal 6.4-8.2 [facility] Comment on above: Performed By: #### M 100.2200 #### [facility] [address] [place], [address] Urea nitrogen [Mass/Vol] 28 mg/dL High 7-18 [facility] Comment on above: Performed By: #### M 100.2200 #### [facility] [address] [place], [address] Emergency Department Summary on 06-28-2024 Emergency Department Summary [facility] Medical Records Department [address] [place] [address] Emergency Department Summary 06/28/24 MR#: [id number] Acct: [id number] Name: LIZA VELASQUEZ Rep #: [id number] : 1935 89 From: Nikita Alvarado MD [...] today. She ate earlier without any problem. [facility] Medical History GERD (gastroesophageal reflux disease) TIA [...] QHS cholesterol #30 tabs 12/03/17 01/11/23 Rx [id number] acid 0.4 1 ea PO BID supplement [...] pain 06/07/23 Unknown History (Tylenol Extra Strength) ywpzkh-[id number] se See Rx Instructions PO .COMPLEX 07/02/23 [...] and cl (more content not included)... Normal [facility] Urinalysis, Completeon 06-28 BACTERIA 3+ /hpf Normal None Seen [facility] Comment on above: Order Comment: LUCIA TER SPECIMEN Performed By: #### M [id number] #### [facility] [address] [place], [address] EPI,SQUAMOUS 0-5 SEEN Normal 5-10 [facility] Comment on above: Order Comment: LUCIA TER SPECIMEN Performed By: #### M [id number] #### [facility] [address] [place], [address] Mucus Ql (Urine sed) 1+ /hpf Normal [facility] Comment on above: Order Comment: LUCIA TER SPECIMEN Performed By: #### M [id number] #### [facility] [address] [place], [address] WBC 5-10 SEEN Normal 0-5 [facility] Comment on above: Order Comment: LUCIA TER SPECIMEN Performed By: #### M [id number] #### [facility] [address] [place], [address] RBC 0 SEEN Normal 0-5 [facility] Comment on above: Order Comment: LUCIA TER SPECIMEN Performed By: #### M [id number] #### [facility] [address] [place], [address] Gastroenterology Visit Repor ton 06-09-2024 Gastroenterology Visit Report [facility] Gastroenterology [address] [place] [address] OFFICE VISIT Date of Service: 06/09/24 MR#: [id number] Acct: [id number] Name: LIZA VELASQUEZ Rep #: [id number] : 1935 Provider: Hung Adames DO Age/Sex: 89/F Location: [facility] Status: Signed Intake Vital Signs 06/07/23 22:34 [...] total fecal fat elevated, elastase L75 OV 08.10.22 Loose stools ??? biochemical workup, stool studies, imaging. ? Biochemical workup CBC, ESR, coagulation, ferritin, LFT, CRP, TSH, T4, GAME, [place], celiac without pertinent abnormality. ? T3 L1.6, Dbl strand DNA H18 ? CT abd/pel .03.07 mild hepatomegaly, normal spleen; diverticulosis; calcified fibroid uterus; pulmonary basilar atelectasis versus scarring. [facility] hospitalization 3.11.05-3 [facility] ED presentation for change in mental status [...] between Fr (more content not included)... Normal [facility] Culture, urineOrdered By: Bettie Fowler on 09-28-2023 Bacteria identified Cx Nom (U) Klebsiella oxytoca [facility] Absolute lymphocyte countOrd ered By: Nikki Jacques on 06-07-2023 Lymphocytes Auto (Unsp spec) [#/Vol] 2.56 10*3/uL 0.83-4.51 [facility] Basophil percentageOrdered B y: Nikki Jacques on 06-07-2023 Basophils/100 WBC (Bld) 1.1 % 0-1 [facility] Chloride [Moles/Vol] 102 mmol/L 98-107 [facility] Eosinophils/100 WBC (Bld) 4.8 % 0-5 [facility] Glucose [Mass/Vol] 287 mg/dL 74-106 [facility] Comment on above: Glucose result great er than or equal to 200 mg/dLsuggests DIABETES MELLITUS per A.D.A. criteria. Neutrophils (Bld) [#/Vol] 2.8 10*3/uL 2.0-7.7 [facility] Neutrophils/100 WBC (Bld) 43.4 % 47-70 [facility] Potassium [Moles/Vol] 4.1 mmol/L 3.5-5.1 [facility] Sodium [Moles/Vol] 134 mmol/L 136-145 [facility] WBC (Bld) [#/Vol] 6.4 10*3/uL 4.4-11.0 [facility] Blood erythrocytes count (nu mber/volume)Ordered By: Nikki Jacques on 06-07-2023 RBC (Bld) [#/Vol] 3.26 10*6/uL 4.2-5.4 [facility] Blood hemoglobin measurement (mass/volume)Ordered By: Nikki Jacques on 06-07-2023 Hemoglobin (Bld) [Mass/Vol] 9.6 g/dL 12.0-15. 0 [facility] Blood lymphocytes/100 leukoc ytesOrdered By: Nikki Jacques on 06-07-2023 Lymphocytes/100 WBC (Bld) 39.9 % 19-41 [facility] Blood monocytes/100 leukocyt esOrdered By: Nikki Jacques on 06-07-2023 Monocytes/100 WBC (Bld) 10.5 % 0-10 [facility] Blood platelet adequacy dete ction by light microscopyOrdered By: Nikki Jacques on 06-07-2023 Platelets LM Ql (Bld) MOD DEC ADEQ [facility] Blood platelet mean volumeOr dered By: Nikki Jacques on 06-07-2023 Platelet mean volume (Bld) [Entitic vol] 12.1 fL 6.2-12.0 [facility] Determination of erythrocyte mean corpuscular volume (MCV)Ordered By: Nikki Jacques on 06-07-2023 MCV (RBC) [Entitic vol] 90.5 fL 81-99 [facility] Hematocrit Auto (Bld) [Volum e fraction]Ordered By: Nikki Jacques on 06-07-2023 Hematocrit (Bld) [Volume fraction] 29.5 % 37-47 [facility] Laboratory - Chemistry and C hemistry - challengeOrdered By: Nikki Jacques on 06-07-2023 CO2 [Moles/Vol] 27.0 mmol/L 21.0-32.0 [facility] Urea nitrogen/Creatinine [Mass ratio] 15.7 mg/mg 10-20 [facility] Laboratory - Hematology and Cell countsOrdered By: Nikki Jacques on 06-07-2023 Erythrocyte distribution width (RBC) [Entitic vol] 44.2 fL 35.1-43.9 [facility] Erythrocyte distribution width (RBC) [Ratio] 13.2 % 11.6-14.6 [facility] Immature granulocytes/100 WBC (Bld) 0.300 % 0.0-0.9 [facility] Comment on above: IG% - Immature Granu locytes (promyelocytes, myelocytes and metamyelocytes) > 1% indicates that a LEFT SHIFT is Present. MCH (RBC) [Entitic mass] 29.4 pg 27.0-32.0 [facility] Nucleated RBC/100 WBC (Bld) [Ratio] 0 % 0-5 [facility] MCHC Auto (RBC) [Mass/Vol]Or dered By: Nikki Jacques on 06-07-2023 MCHC (RBC) [Mass/Vol] 32.5 g/dL 32-36 [facility] No Panel InformationOrdered By: Nikki Jacques on 06-07-2023 Estimated Creatinine Clearance Calc 30.36 ml/min [facility] Estimated GFR (MDRD) Amer 62 mL/min >60 [facility] Comment on above: GFR Calc Estimated GFR (MDRD) Non-Af Amer 51 mL/min >60 [facility] Comment on above: Non- GFR Calc Troponin I High Sensitivity 9 pg/mL 3.0-54.0 [facility] Comment on above: Please Note: New Mesha t Units and Gender Specific Reference Ranges. For more information see Policy Stat Procedure [place] High Sensitivity Troponin (TNIH) and attachments. Platelets bldOrdered By: Selin Jacques on 06-07-2023 Platelets (Bld) [#/Vol] 77 10*3/uL 150-450 [facility] Serum or plasma calcium beck urement (mass/volume)Ordered By: Nikki Jacques on 06-07-2023 Calcium [Mass/Vol] 8.1 mg/dL 8.5-10.1 [facility] Serum or plasma creatinine m easurement (mass/volume)Ordered By: Nikki Jacques on 06-07-2023 Creatinine [Mass/Vol] 1.08 mg/dL 0.55-1.02 [facility] Comment on above: The validity of the calculated GFR & GFRAA in patients over 70 years has not been determined. Clinical correlation is essential. Serum or plasma urea nitroge n measurement (mass/volume)Ordered By: Nikki Jacques on 06-07-2023 Urea nitrogen [Mass/Vol] 17 mg/dL 7-18 [facility] Thin prep Papanicolaou smear with manual screeningOrdered By: Nikki Jacques on 06-07-2023 Thin prep Papanicolaou smear with manual screening 5 5-15 [facility] Culture, urineOrdered By: Bettie Fowler on 04-27-2023 Bacteria identified Cx Nom (U) Proteus mirabilis [facility] Bacteria identified Cx Nom (U) Escherichia coli [facility] Bacteria identified Cx Nom (U) Proteus mirabilis [facility] Bacteria identified Cx Nom (U) Escherichia coli [facility] Absolute lymphocyte countOrd ered By: Clinton Fowler on 04-25-2023 Lymphocytes Auto (Unsp spec) [#/Vol] 1.81 10*3/uL 0.83-4.51 [facility] Basophil percentageOrdered B y: Clinton Fowler on 04-25-2023 Basophils/100 WBC (Bld) 1.0 % 0-1 [facility] Chloride [Moles/Vol] 101 mmol/L 98-107 [facility] Eosinophils/100 WBC (Bld) 2.2 % 0-5 [facility] Glucose [Mass/Vol] 101 mg/dL 74-106 [facility] Comment on above: Fasting Glucose resu lt from 100 to 125 mg/dL suggests IMPAIRED HOMEOSTASIS per A.D.A. criteria. Neutrophils (Bld) [#/Vol] 5.5 10*3/uL 2.0-7.7 [facility] Neutrophils/100 WBC (Bld) 66.2 % 47-70 [facility] Potassium [Moles/Vol] 4.0 mmol/L 3.5-5.1 [facility] Sodium [Moles/Vol] 133 mmol/L 136-145 [facility] WBC (Bld) [#/Vol] 8.3 10*3/uL 4.4-11.0 [facility] Blood erythrocytes count (nu mber/volume)Ordered By: Clinton Fowler on 04-25-2023 RBC (Bld) [#/Vol] 3.81 10*6/uL 4.2-5.4 [facility] Blood hemoglobin measurement (mass/volume)Ordered By: Clinton Fowler on 04-25-2023 Hemoglobin (Bld) [Mass/Vol] 11.4 g/dL 12.0-15. 0 [facility] Blood lymphocytes/100 leukoc ytesOrdered By: Clinton Fowler on 04-25-2023 Lymphocytes/100 WBC (Bld) 21.8 % 19-41 [facility] Blood monocytes/100 leukocyt esOrdered By: Clinton Fowler on 04-25-2023 Monocytes/100 WBC (Bld) 8.4 % 0-[address] [facility] Blood platelet mean volumeOr dered By: Clinton Fowler on 04-25-2023 Platelet mean volume (Bld) [Entitic vol] 10.9 fL 6.2-12.0 [facility] Determination of erythrocyte mean corpuscular volume (MCV)Ordered By: Clinton Fowler on 04-25-2023 MCV (RBC) [Entitic vol] 92.1 fL 81-99 [facility] Hematocrit Auto (Bld) [Volum e fraction]Ordered By: Clinton Fowler on 04-25-2023 Hematocrit (Bld) [Volume fraction] 35.1 % 37-47 [facility] Iron measurement (mass/mass) Ordered By: Clinton Fowler on 04-25-2023 Iron (Unsp spec) [Mass/Mass] 44 ug/dL 50-170 [facility] - Chemistry and C hemistry - challengeOrdered By: Clinton Fowler on 04-25-2023 CO2 [Moles/Vol] 25.0 mmol/L 21.0-32.0 [facility] Urea nitrogen/Creatinine [Mass ratio] 20.4 mg/mg 10-20 [facility] - Hematology and Cell countsOrdered By: Clinton Fowler on 04-25-2023 Erythrocyte distribution width (RBC) [Entitic vol] 42.7 fL 35.1-43.9 [facility] Erythrocyte distribution width (RBC) [Ratio] 12.7 % 11.6-14.6 [facility] Immature granulocytes/100 WBC (Bld) 0.400 % 0.0-0.9 [facility] Comment on above: IG% - Immature Granu locytes (promyelocytes, myelocytes and metamyelocytes) > 1% indicates that a LEFT SHIFT is Present. MCH (RBC) [Entitic mass] 29.9 pg 27.0-32.0 [facility] Nucleated RBC/100 WBC (Bld) [Ratio] 0 % 0-5 [facility] MCHC Auto (RBC) [Mass/Vol]Or dered By: Clinton Fowler on 04-25-2023 MCHC (RBC) [Mass/Vol] 32.5 g/dL 32-36 [facility] No Panel InformationOrdered By: Clinton Fowler on 04-25-2023 Estimated GFR (MDRD) Amer 65 mL/min >60 [facility] Comment on above: GFR Calc Estimated GFR (MDRD) Non-Af Amer 54 mL/min >60 [facility] Comment on above: Non- GFR Calc Platelets bldOrdered By: Brynn Fowler on 04-25-2023 Platelets (Bld) [#/Vol] 251 10*3/uL 150-450 [facility] Serum or plasma calcium beck urement (mass/volume)Ordered By: Clinton Fowler on 04-25-2023 Calcium [Mass/Vol] 9.6 mg/dL 8.5-10.1 [facility] Serum or plasma creatinine m easurement (mass/volume)Ordered By: Clinton Fowler on 04-25-2023 Creatinine [Mass/Vol] 1.03 mg/dL 0.55-1.02 [facility] Comment on above: The validity of the calculated GFR & GFRAA in patients over 70 years has not been determined. Clinical correlation is essential. Serum or plasma ferritin jose carlos surement (mass/volume)Ordered By: Clinton Fowler on 04-25-2023 Ferritin [Mass/Vol] 46 ng/mL 8-252 [facility] Serum or plasma urea nitroge n measurement (mass/volume)Ordered By: Clinton Fowler on 04-25-2023 Urea nitrogen [Mass/Vol] 21 mg/dL 7-18 [facility] Thin prep Papanicolaou smear with manual screeningOrdered By: Clinton Fowler on 04-25-2023 Thin prep Papanicolaou smear with manual screening 7 5-15 [facility] Absolute lymphocyte countOrd ered By: Clinton Fowler on 01-24-2023 Lymphocytes Auto (Unsp spec) [#/Vol] 2.27 10*3/uL 0.83-4.51 [facility] Basophil percentageOrdered B y: Clinton Fowler on 01-24-2023 Basophils/100 WBC (Bld) 0.9 % 0-[address] [facility] Eosinophils/100 WBC (Bld) 2.3 % 0-5 [facility] Neutrophils (Bld) [#/Vol] 3.6 10*3/uL 2.0-7.7 [facility] Neutrophils/100 WBC (Bld) 53.8 % 47-70 [facility] WBC (Bld) [#/Vol] 6.7 10*3/uL 4.4-11.0 [facility] Blood erythrocytes count (nu mber/volume)Ordered By: Clinton Fowler on 01-24-2023 RBC (Bld) [#/Vol] 2.85 10*6/uL 4.2-5.4 [facility] Blood hemoglobin measurement (mass/volume)Ordered By: Clinton Fowler on 01-24-2023 Hemoglobin (Bld) [Mass/Vol] 8.9 g/dL 12.0-15. 0 [facility] Blood lymphocytes/100 leukoc ytesOrdered By: Clinton Fowler on 01-24-2023 Lymphocytes/100 WBC (Bld) 34.1 % 19-41 [facility] Blood monocytes/100 leukocyt esOrdered By: Clinton Fowler on 01-24-2023 Monocytes/100 WBC (Bld) 8.4 % 0-10 [facility] Blood platelet mean volumeOr dered By: Clinton Fowler on 01-24-2023 Platelet mean volume (Bld) [Entitic vol] 10.5 fL 6.2-12.0 [facility] Determination of erythrocyte mean corpuscular volume (MCV)Ordered By: Clinton Fowler on 01-24-2023 MCV (RBC) [Entitic vol] 96.8 fL 81-99 [facility] Hematocrit Auto (Bld) [Volum e fraction]Ordered By: Clinton Fowler on 01-24-2023 Hematocrit (Bld) [Volume fraction] 27.6 % 37-47 [facility] Iron measurement (mass/mass) Ordered By: Clinton Fowler on 01-24-2023 Iron (Unsp spec) [Mass/Mass] 41 ug/dL 50-170 [facility] - Chemistry and C hemistry - challengeOrdered By: Clinton Fowler on 01-24-2023 Cobalamin (Vitamin B12) [Mass/Vol] 1536 pg/mL 211-911 [facility] - Hematology and Cell countsOrdered By: Clinton Fowler on 01-24-2023 Erythrocyte distribution width (RBC) [Entitic vol] 49.1 fL 35.1-43.9 [facility] Erythrocyte distribution width (RBC) [Ratio] 13.9 % 11.6-14.6 [facility] Immature granulocytes/100 WBC (Bld) 0.500 % 0.0-0.9 [facility] Comment on above: IG% - Immature Granu locytes (promyelocytes, myelocytes and metamyelocytes) > 1% indicates that a LEFT SHIFT is Present. MCH (RBC) [Entitic mass] 31.2 pg 27.0-32.0 [facility] Nucleated RBC/100 WBC (Bld) [Ratio] 0 % 0-5 [facility] MCHC Auto (RBC) [Mass/Vol]Or dered By: Clinton Fowler on 01-24-2023 MCHC (RBC) [Mass/Vol] 32.2 g/dL 32-36 [facility] Platelets bldOrdered By: Brynn Fowler on 01-24-2023 Platelets (Bld) [#/Vol] 242 10*3/uL 150-450 [facility] Serum or plasma ferritin jose carlos surement (mass/volume)Ordered By: Clinton Fowler on 01-24-2023 Ferritin [Mass/Vol] 66 ng/mL 8-252 [facility] Absolute lymphocyte countOrd ered By: Sixto Braswell on 01-14-2023 Lymphocytes Auto (Unsp spec) [#/Vol] 2.33 10*3/uL 0.83-4.51 [facility] Basophil percentageOrdered B y: Sixto Braswell on 01-14-2023 Basophils/100 WBC (Bld) 1.3 % 0-1 [facility] Chloride [Moles/Vol] 114 mmol/L 98-107 [facility] Eosinophils/100 WBC (Bld) 3.6 % 0-5 [facility] Glucose [Mass/Vol] 109 mg/dL 74-106 [facility] Comment on above: Fasting Glucose resu lt from 100 to 125 mg/dL suggests IMPAIRED HOMEOSTASIS per A.D.A. criteria. Neutrophils (Bld) [#/Vol] 4.1 10*3/uL 2.0-7.7 [facility] Neutrophils/100 WBC (Bld) 54.5 % 47-70 [facility] Potassium [Moles/Vol] 3.8 mmol/L 3.5-5.1 [facility] Sodium [Moles/Vol] 143 mmol/L 136-145 [facility] WBC (Bld) [#/Vol] 7.5 10*3/uL 4.4-11.0 [facility] Blood erythrocytes count (nu mber/volume)Ordered By: Sixto Braswell on 01-14-2023 RBC (Bld) [#/Vol] 2.89 10*6/uL 4.2-5.4 [facility] Blood hemoglobin measurement (mass/volume)Ordered By: Sixto Braswell on 01-14-2023 Hemoglobin (Bld) [Mass/Vol] 9.3 g/dL 12.0-15. 0 [facility] Blood lymphocytes/100 leukoc ytesOrdered By: Sixto Braswell on 01-14-2023 Lymphocytes/100 WBC (Bld) 31.1 % 19-41 [facility] Blood monocytes/100 leukocyt esOrdered By: Sixto Braswell on 01-14-2023 Monocytes/100 WBC (Bld) 9.1 % 0-10 [facility] Blood platelet mean volumeOr dered By: Sixto Braswell on 01-14-2023 Platelet mean volume (Bld) [Entitic vol] 10.2 fL 6.2-12.0 [facility] Determination of erythrocyte mean corpuscular volume (MCV)Ordered By: Sixto Braswell on 01-14-2023 MCV (RBC) [Entitic vol] 93.1 fL 81-99 [facility] Hematocrit Auto (Bld) [Volum e fraction]Ordered By: Sixto Braswell on 01-14-2023 Hematocrit (Bld) [Volume fraction] 26.9 % 37-47 [facility] - Chemistry and C hemistry - challengeOrdered By: Sixto Braswell on 01-14-2023 CO2 [Moles/Vol] 25.0 mmol/L 21.0-32.0 [facility] Urea nitrogen/Creatinine [Mass ratio] 18.1 mg/mg 10-20 [facility] - Hematology and Cell countsOrdered By: Sixto Braswell on 01-14-2023 Erythrocyte distribution width (RBC) [Entitic vol] 44.9 fL 35.1-43.9 [facility] Erythrocyte distribution width (RBC) [Ratio] 13.2 % 11.6-14.6 [facility] Immature granulocytes/100 WBC (Bld) 0.400 % 0.0-0.9 [facility] Comment on above: IG% - Immature Granu locytes (promyelocytes, myelocytes and metamyelocytes) > 1% indicates that a LEFT SHIFT is Present. MCH (RBC) [Entitic mass] 31.1 pg 27.0-32.0 [facility] Nucleated RBC/100 WBC (Bld) [Ratio] 0 % 0-5 [facility] MCHC Auto (RBC) [Mass/Vol]Or dered By: Sixto Braswell on 01-14-2023 MCHC (RBC) [Mass/Vol] 33.5 g/dL 32-36 [facility] No Panel InformationOrdered By: Sixto Braswell on 01-14-2023 Estimated Creatinine Clearance Calc 49.62 ml/min [facility] Estimated GFR (MDRD) Amer 78 mL/min >60 [facility] Comment on above: GFR Calc Estimated GFR (MDRD) Non-Af Amer 64 mL/min >60 [facility] Comment on above: Non- GFR Calc Platelets bldOrdered By: Debbie Braswell on 01-14-2023 Platelets (Bld) [#/Vol] 197 10*3/uL 150-450 [facility] Serum or plasma calcium beck urement (mass/volume)Ordered By: Sixto Brasewll on 01-14-2023 Calcium [Mass/Vol] 8.6 mg/dL 8.5-10.1 [facility] Serum or plasma creatinine m easurement (mass/volume)Ordered By: Sixto Braswell on 01-14-2023 Creatinine [Mass/Vol] 0.88 mg/dL 0.55-1.02 [facility] Comment on above: The validity of the calculated GFR & GFRAA in patients over 70 years has not been determined. Clinical correlation is essential. Serum or plasma urea nitroge n measurement (mass/volume)Ordered By: Sixto Braswell on 01-14-2023 Urea nitrogen [Mass/Vol] 16 mg/dL 7-18 [facility] Thin prep Papanicolaou smear with manual screeningOrdered By: Sixto Braswell on 01-14-2023 Thin prep Papanicolaou smear with manual screening 4 5-15 [facility] Clostridium difficile detect ion by polymerase chain reactionOrdered By: Isiah Winn on 01-13-2023 C. difficile DNA ANALISA+probe Ql (Unsp spec) [facility] Ova and parasitesOrdered By: Isiah Winn on 01-13-2023 Ova and parasites identified LM Nom (Unsp spec) [facility] Stool enteric pathogen panel by probe and target amplification methodOrdered By: Isiah Winn on 01-13-2023 Gastrointestinal pathogens panel ANALISA+probe (Stl) [facility] Stool lactoferrin detection by immunoassayOrdered By: Isiah Winn on 01-13-2023 Lactoferrin IA Ql (Stl) [facility] Basophil percentageOrdered B y: Isiah Winn on 01-12-2023 Basophil percentage 0-5 SEEN /hpf 0-5 [facility] Bilirubin [Mass/Vol] 0.40 mg/dL 0.20-1.00 [facility] Comment on above: For patients on eltr ombopag therapy, use of Dimension [place] TBIL is not recommended. Protein [Mass/Vol] 5.9 g/dL 6.4-8.2 [facility] Bilirubin Test strip Ql (U)O rdered By: Isiah Winn on 01-12-2023 Bilirubin Ql (U) 1 mg/dL Negative [facility] Comment on above: COLOR OF URINE MAY A FFECT DIPSTICK RESULTS. INR in Blood by Coagulation assayOrdered By: Isiah Winn on 01-12-2023 INR Coag (Bld) [Relative time] 1.1 {INR} [facility] Ketones Test strip Ql (U)Ord ered By: Isiah Winn on 01-12-2023 Ketones Ql (U) Negative Negative [facility] Laboratory - Chemistry and C hemistry - challengeOrdered By: Isiah Winn on 01-12-2023 ALP [Catalytic activity/Vol] 94 U/L 45-117 [facility] ALT [Catalytic activity/Vol] 26 U/L 13-56 [facility] Globulin (S) [Mass/Vol] 3.2 g/dL 2.2-4.[address] [facility] Laboratory - CoagulationOrde red By: Isiah Winn on 01-12-2023 aPTT Coag (Bld) [Time] 29.4 s 24.1-36.2 [facility] PT Coag (PPP) [Time] 14.6 s 11.7-14.9 [facility] Mucus LM Ql (Urine sed)Order ed By: Isiah Winn on 01-12-2023 Mucus Ql (Urine sed) 0 SEEN /hpf [facility] Nitrite Test strip Ql (U)Ord ered By: Isiah Winn on 01-12-2023 Nitrite Ql (U) Negative Negative [facility] Protein Test strip Ql (U)Ord ered By: Isiah Winn on 01-12-2023 Protein Ql (U) Negative Negative [facility] Serum or plasma albumin beck urement (mass/volume)Ordered By: Isiah Winn on 01-12-2023 Albumin [Mass/Vol] 2.7 g/dL 3.2-5.0 [facility] Serum or plasma albumin/glob ulin mass ratioOrdered By: Isiah Winn on 01-12-2023 Albumin/Globulin [Mass ratio] 0.8 {ratio} 0.9-2.4 [facility] Squamous epithelial cells de tection in urine sediment by light microscopyOrdered By: Isiah Winn on 01-12-2023 Epithelial cells.squamous LM Ql (Urine sed) 0 SEEN /hpf 5-10 [facility] Thin prep Papanicolaou smear with manual screeningOrdered By: Isiah Winn on 01-12-2023 Thin prep Papanicolaou smear with manual screening 30 U/L 15-37 [facility] Urine blood detectionOrdered By: Isiah Winn on 01-12-2023 RBC Ql (U) Negative Negative [facility] RBC Ql (U) 0 SEEN /hpf 0-5 [facility] Urine clarityOrdered By: Cortez Winn on 01-12-2023 Clarity (U) Clear Clear [facility] Urine color determinationOrd ered By: Isiah Winn on 01-12-2023 Color (U) Yellow Yellow [facility] Urine glucose detectionOrder ed By: Isiah Winn on 01-12-2023 Glucose Ql (U) Normal mg/dl Normal [facility] Urine leukocyte esterase det ection by dipstickOrdered By: Isiah Winn on 01-12-2023 Leukocyte esterase Test strip Ql (U) 25 /ul Negative [facility] Urine pHOrdered By: Isiah Winn on 01-12-2023 pH (U) 5.0 [pH] 5.0 - 8.0 [facility] Urine sediment bacteria coun t by microscopy (number/high power field)Ordered By: Isiah Winn on 01-12-2023 Bacteria LM.HPF (Urine sed) [#/Area] 0 /[HPF] None Seen [facility] Urine specific gravity measu rementOrdered By: Isiah Winn on 01-12-2023 Specific gravity (U) [Rel density] 1.015 1.002-1.030 [facility] Urobilinogen Auto test strip Ql (U)Ordered By: Isiah Winn on 01-12-2023 Urobilinogen Ql (U) Normal mg/dl Normal [facility] Clostridium difficile detect ion by polymerase chain reactionOrdered By: Hung Adames on 10-24-2022 C. difficile DNA ANALISA+probe Ql (Unsp spec) [facility] Stool lactoferrin detection by immunoassayOrdered By: Hung Adames on 10-24-2022 Lactoferrin IA Ql (Stl) [facility] No Panel InformationOrdered By: Hung Adames on 10-23-2022 Miscellaneous Test See comment [facility] Comment on above: TEST RESULT LIMITSSt ool Culture Salmonella/Shigella Screen Result 1 No Salmonella or Shigella recovered. Campylobacter Culture Result 1 No Campylobacter species isolated. E coli Shiga Toxin EIA Negative Negative TESTING PERFORMED AT [facility]. ORIGINAL REPORT ON FILE IN LAB CONTAINS ADDITIONAL TEST SITE INFORMATION. Stool Pancreatic Elastase < 50 >200 [facility] Comment on above: Result Units: ug Jeny st./gResults verified by repeat testing Severe Pancreatic Insufficiency: <100 Moderate Pancreatic Insufficiency: 100 - 200 Normal: >200Performed at: [facility] [employer] [id number] Director: Hi Hackett MD, Phone: [phone] Giardia Antigen (JIMI) [facility] Stool Calprotectin <16 ug/g 0-120 [facility] Comment on above: Concentration Interp retation Follow-Up<16 - 50 ug/g Normal None>50 -120 ug/g Borderline Re-evaluate in 4-6 weeks >120 ug/g Abnormal Repeat as clinically indicatedPerformed at: [address] [id number] Director: Hi Hackett MD, Phone: [phone] Miscellaneous Test See comment [facility] Comment on above: TEST RESULT LIMITSIB [...] developed and its performance characteristics determined by [facility]. It has not been cleared or approved by the Food and Drug Administration. The FDA has determined that such clearance or approval is not necessary.Atypical pANCA Negative Negative Comments Pattern is not suggestive of Inflammatory Bowel Disease TESTING PERFORMED AT [facility]. ORIGINAL REPORT ON FILE IN LAB CONTAINS ADDITIONAL TEST SITE INFORMATION. Ova and parasitesOrdered By: Hung Adames on 10-23-2022 Ova and parasites identified LM Nom (Unsp spec) [facility] Laboratory - Microbiology an d Antimicrobial susceptibilityOrdered By: Dr. Thomas on 10-21-2022 Bacteria identified Cx Nom (Bld) [facility] Laboratory - Microbiology an d Antimicrobial susceptibilityOrdered By: Dr. Thomas on 09-22-2022 Bacteria identified Cx Nom (Bld) No growth in 5 days. [facility] Absolute lymphocyte countOrd ered By: Dr. Verma on 09-20-2022 Lymphocytes Auto (Unsp spec) [#/Vol] 2.55 10*3/uL 0.83-4.51 [facility] Basophil percentageOrdered B y: Dr. Verma on 09-20-2022 Basophils/100 WBC (Bld) 0.7 % 0-1 [facility] Chloride [Moles/Vol] 102 mmol/L 98-107 [facility] Eosinophils/100 WBC (Bld) 1.5 % 0-5 [facility] Glucose [Mass/Vol] 253 mg/dL 74-106 [facility] Comment on above: Glucose result great er than or equal to 200 mg/dLsuggests DIABETES MELLITUS per A.D.A. criteria. Neutrophils (Bld) [#/Vol] 6.8 10*3/uL 2.0-7.7 [facility] Neutrophils/100 WBC (Bld) 63.8 % 47-70 [facility] Potassium [Moles/Vol] 3.6 mmol/L 3.5-5.1 [facility] Sodium [Moles/Vol] 135 mmol/L 136-145 [facility] WBC (Bld) [#/Vol] 10.7 10*3/uL 4.4-11.0 [facility] Blood erythrocytes count (nu mber/volume)Ordered By: Dr. Verma on 09-20-2022 RBC (Bld) [#/Vol] 3.79 10*6/uL 4.2-5.4 [facility] Blood hemoglobin measurement (mass/volume)Ordered By: Dr. Verma on 09-20-2022 Hemoglobin (Bld) [Mass/Vol] 11.3 g/dL 12.0-15. 0 [facility] Blood lymphocytes/100 leukoc ytesOrdered By: Dr. Verma on 09-20-2022 Lymphocytes/100 WBC (Bld) 23.9 % 19-41 [facility] Blood monocytes/100 leukocyt esOrdered By: Dr. Verma on 09-20-2022 Monocytes/100 WBC (Bld) 9.7 % 0-[address] [facility] Blood platelet mean volumeOr dered By: Dr. Verma on 09-20-2022 Platelet mean volume (Bld) [Entitic vol] 10.3 fL 6.2-12.0 [facility] Determination of erythrocyte mean corpuscular volume (MCV)Ordered By: Dr. Verma on 09-20-2022 MCV (RBC) [Entitic vol] 90.8 fL 81-99 [facility] Glucose Glucometer (BldC) [M ass/Vol]Ordered By: Dr. Verma on 09-20-2022 Glucose [Mass/Vol] 240 mg/dL 74-106 [facility] Comment on above: MANAGEMENT OF PATIEN T CARE PER NURSING PROTOCOL Hematocrit Auto (Bld) [Volum e fraction]Ordered By: Dr. Verma on 09-20-2022 Hematocrit (Bld) [Volume fraction] 34.4 % 37-47 [facility] Laboratory - Chemistry and C hemistry - challengeOrdered By: Dr. Verma on 09-20-2022 CO2 [Moles/Vol] 25.0 mmol/L 21.0-32.0 [facility] Urea nitrogen/Creatinine [Mass ratio] 21.0 mg/mg 10-20 [facility] Laboratory - Hematology and Cell countsOrdered By: Dr. Verma on 09-20-2022 Erythrocyte distribution width (RBC) [Entitic vol] 42.7 fL 35.1-43.9 [facility] Erythrocyte distribution width (RBC) [Ratio] 12.8 % 11.6-14.6 [facility] Immature granulocytes/100 WBC (Bld) 0.400 % 0.0-0.9 [facility] Comment on above: IG% - Immature Granu locytes (promyelocytes, myelocytes and metamyelocytes) > 1% indicates that a LEFT SHIFT is Present. MCH (RBC) [Entitic mass] 29.8 pg 27.0-32.0 [facility] Nucleated RBC/100 WBC (Bld) [Ratio] 0 % 0-5 [facility] MCHC Auto (RBC) [Mass/Vol]Or dered By: Dr. Verma on 09-20-2022 MCHC (RBC) [Mass/Vol] 32.8 g/dL 32-36 [facility] No Panel InformationOrdered By: Dr. Verma on 09-20-2022 Estimated Creatinine Clearance Calc 35.22 ml/min [facility] Estimated GFR (MDRD) Amer 53 mL/min >60 [facility] Comment on above: GFR Calc Estimated GFR (MDRD) Non-Af Amer 44 mL/min >60 [facility] Comment on above: Non- GFR Calc Platelets bldOrdered By: Dr. Verma on 09-20-2022 Platelets (Bld) [#/Vol] 237 10*3/uL 150-450 [facility] Serum or plasma calcium beck urement (mass/volume)Ordered By: Dr. Verma on 09-20-2022 Calcium [Mass/Vol] 9.1 mg/dL 8.5-10.1 [facility] Serum or plasma creatinine m easurement (mass/volume)Ordered By: Dr. Verma on 09-20-2022 Creatinine [Mass/Vol] 1.24 mg/dL 0.55-1.02 [facility] Comment on above: The validity of the calculated GFR & GFRAA in patients over 70 years has not been determined. Clinical correlation is essential. Serum or plasma urea nitroge n measurement (mass/volume)Ordered By: Dr. Verma on 09-20-2022 Urea nitrogen [Mass/Vol] 26 mg/dL 7-18 [facility] Thin prep Papanicolaou smear with manual screeningOrdered By: Dr. Verma on 09-20-2022 Thin prep Papanicolaou smear with manual screening 8 5-15 [facility] Basophil percentageOrdered B y: Dr. Verma on 09-19-2022 Cholesterol [Mass/Vol] 114 mg/dL <200 [facility] Comment on above: <200 mg/dL Desirable 200-240 mg/dL Borderline >240 mg/dL High Risk Triglyceride [Mass/Vol] 117 mg/dL <199 [facility] Comment on above: The drugs N-Acetylcy steine and Metamizole may falsely depress this assay.Serum Triglycerides Reference Interval Normal <150 mg/dL Borderline high 150 - 199 mg/dL High 200 - 499 mg/dL Very High > or = 500 mg/dL Serum or plasma cholesterol in HDL measurement (mass/volume)Ordered By: Dr. Verma on 09-19-2022 Cholesterol in HDL [Mass/Vol] 41 mg/dL >40 [facility] Comment on above: The drugs N-Acetylcy steine and Metamizole may falsely depress this assay. Reference Range HDL <40 mg/dL Low HDL Cholesterol HDL >or= 60 mg/dL High HDL Cholesterol Serum or plasma cholesterol in VLDL measurement (mass/volume)Ordered By: Dr. Verma on 09-19-2022 Cholesterol in VLDL [Mass/Vol] 23 mg/dL 5-40 [facility] Serum or plasma low density lipoprotein (LDL) cholesterol measurement (mass/volume)Ordered By: Dr. Verma on 09-19-2022 Cholesterol in LDL [Mass/Vol] 50 mg/dL 0-130 [facility] Basophil percentageOrdered B y: Dr. Chawla on 09-18-2022 Bilirubin [Mass/Vol] 0.50 mg/dL 0.20-1.00 [facility] Comment on above: For patients on eltr ombopag therapy, use of Dimension [place] TBIL is not recommended. Protein [Mass/Vol] 6.1 g/dL 6.4-8.2 [facility] Culture, urineOrdered By: Dr Edmond Thomas on 09-18-2022 Bacteria identified Cx Nom (U) Escherichia coli [facility] Laboratory - Chemistry and C hemistry - challengeOrdered By: Dr. Chawla on 09-18-2022 ALP [Catalytic activity/Vol] 104 U/L 45-117 [facility] ALT [Catalytic activity/Vol] 26 U/L 13-56 [facility] Globulin (S) [Mass/Vol] 3.4 g/dL 2.2-4.[address] [facility] Serum or plasma albumin beck urement (mass/volume)Ordered By: Dr. Chawla on 09-18-2022 Albumin [Mass/Vol] 2.7 g/dL 3.2-5.0 [facility] Serum or plasma albumin/glob ulin mass ratioOrdered By: Dr. Chawla on 09-18-2022 Albumin/Globulin [Mass ratio] 0.8 {ratio} 0.9-2.4 [facility] Thin prep Papanicolaou smear with manual screeningOrdered By: Dr. Chawla on 09-18-2022 Thin prep Papanicolaou smear with manual screening 25 U/L 15-37 [facility] Basophil percentageOrdered B y: Dr. Buckner on 09-17-2022 Basophil percentage 3.5 mg/dL 2.5-4.9 [facility] Erythrocyte sedimentation ra teOrdered By: Dr. Chawla on 09-17-2022 ESR (Bld) [Velocity] 5 mm/h 0-30 [facility] Laboratory - Chemistry and C hemistry - challengeOrdered By: Dr. Buckner on 09-17-2022 Magnesium [Mass/Vol] 1.6 mg/dL 1.6-2.6 [facility] Serum or plasma C reactive p rotein measurement (mass/volume)Ordered By: Dr. Chawla on 09-17-2022 CRP [Mass/Vol] mg/L 0.0-3.0 [facility] Comment on above: C-Reactive Protein ( CRP) provides useful information for thediagnosis, therapy and monitoring of inflammatory processesand associated diseases. For the evaluation of Relative Riskfor Cardiovascular Disease, a High Sensitivity CRP (HSCRP)should be ordered. Serum procalcitonin measurem entOrdered By: Dr. Chawla on 09-17-2022 Procalcitonin [Mass/Vol] ng/mL 0.00-0.09 [facility] Comment on above: A procalcitonin (PCT [...] Auto (Unsp spec) [#/Vol] 2.26 10*3/uL 0.83-4.51 [facility] Basophil percentageOrdered B y: Dr. Thomas on 09-16-2022 Basophil percentage 0 SEEN /hpf 0-5 [facility] Basophils/100 WBC (Bld) 0.9 % 0-1 [facility] Bilirubin [Mass/Vol] 0.40 mg/dL 0.20-1.00 [facility] Comment on above: For patients on eltr ombopag therapy, use of Dimension [place] TBIL is not recommended. Chloride [Moles/Vol] 101 mmol/L 98-107 [facility] Eosinophils/100 WBC (Bld) 1.9 % 0-5 [facility] Glucose [Mass/Vol] 337 mg/dL 74-106 [facility] Comment on above: Glucose result great er than or equal to 200 mg/dLsuggests DIABETES MELLITUS per A.D.A. criteria. Lactate [Moles/Vol] 1.9 mmol/L 0.4-2.0 [facility] Neutrophils (Bld) [#/Vol] 4.3 10*3/uL 2.0-7.7 [facility] Neutrophils/100 WBC (Bld) 57.8 % 47-70 [facility] Potassium [Moles/Vol] 4.3 mmol/L 3.5-5.1 [facility] Protein [Mass/Vol] 6.3 g/dL 6.4-8.2 [facility] Sodium [Moles/Vol] 135 mmol/L 136-145 [facility] WBC (Bld) [#/Vol] 7.5 10*3/uL 4.4-11.0 [facility] Bilirubin Test strip Ql (U)O rdered By: Dr. Thomas on 09-16-2022 Bilirubin Ql (U) Negative Negative [facility] Blood erythrocytes count (nu mber/volume)Ordered By: Dr. Thomas on 09-16-2022 RBC (Bld) [#/Vol] 3.66 10*6/uL 4.2-5.4 [facility] Blood hemoglobin measurement (mass/volume)Ordered By: Dr. Thomas on 09-16-2022 Hemoglobin (Bld) [Mass/Vol] 11.0 g/dL 12.0-15. 0 [facility] Blood lymphocytes/100 leukoc ytesOrdered By: Dr. Thomas on 09-16-2022 Lymphocytes/100 WBC (Bld) 30.3 % 19-41 [facility] Blood monocytes/100 leukocyt esOrdered By: Dr. Thomas on 09-16-2022 Monocytes/100 WBC (Bld) 8.6 % 0-[address] [facility] Blood platelet mean volumeOr dered By: Dr. Thomas on 09-16-2022 Platelet mean volume (Bld) [Entitic vol] 10.1 fL 6.2-12.0 [facility] Culture, urineOrdered By: Julian Thomas on 09-16-2022 Bacteria identified Cx Nom (U) Escherichia coli [facility] Determination of erythrocyte mean corpuscular volume (MCV)Ordered By: Dr. Thomas on 09-16-2022 MCV (RBC) [Entitic vol] 95.6 fL 81-[address] [facility] Hematocrit Auto (Bld) [Volum e fraction]Ordered By: Dr. Thomas on 09-16-2022 Hematocrit (Bld) [Volume fraction] 35.0 % 37-47 [facility] INR in Blood by Coagulation assayOrdered By: Dr. Thomas on 09-16-2022 INR Coag (Bld) [Relative time] 1.1 {INR} [facility] Ketones Test strip Ql (U)Ord ered By: Dr. Thomas on 09-16-2022 Ketones Ql (U) Negative Negative [facility] Laboratory - Chemistry and C hemistry - challengeOrdered By: Dr. Buckner on 09-16-2022 Cobalamin (Vitamin B12) [Mass/Vol] 999 pg/mL 211-911 [facility] Laboratory - Chemistry and C hemistry - challengeOrdered By: Dr. Thomas on 09-16-2022 ALP [Catalytic activity/Vol] 100 U/L 45-117 [facility] ALT [Catalytic activity/Vol] 25 U/L 13-56 [facility] CO2 [Moles/Vol] 28.0 mmol/L 21.0-32.0 [facility] Globulin (S) [Mass/Vol] 3.3 g/dL 2.2-4.2 [facility] Urea nitrogen/Creatinine [Mass ratio] 15.3 mg/mg 10-20 [facility] Laboratory - CoagulationOrde red By: Dr. Thomas on 09-16-2022 PT Coag (PPP) [Time] 13.6 s 11.7-14.9 [facility] Laboratory - Hematology and Cell countsOrdered By: Dr. Thomas on 09-16-2022 Erythrocyte distribution width (RBC) [Entitic vol] 44.8 fL 35.1-43.9 [facility] Erythrocyte distribution width (RBC) [Ratio] 12.8 % 11.6-14.6 [facility] Immature granulocytes/100 WBC (Bld) 0.500 % 0.0-0.9 [facility] Comment on above: IG% - Immature Granu locytes (promyelocytes, myelocytes and metamyelocytes) > 1% indicates that a LEFT SHIFT is Present. MCH (RBC) [Entitic mass] 30.1 pg 27.0-32.0 [facility] Nucleated RBC/100 WBC (Bld) [Ratio] 0 % 0-5 [facility] Laboratory - Microbiology an d Antimicrobial susceptibilityOrdered By: Moncho Thomas on 09-16-2022 Bacteria identified Cx Nom (Bld) [facility] Bacteria identified Cx Nom (Bld) No growth in 5 days. [facility] MCHC Auto (RBC) [Mass/Vol]Or dered By: Dr. Thomas on 09-16-2022 MCHC (RBC) [Mass/Vol] 31.4 g/dL 32-36 [facility] Mucus LM Ql (Urine sed)Order ed By: Dr. Thomas on 09-16-2022 Mucus Ql (Urine sed) 0 SEEN /hpf [facility] Nitrite Test strip Ql (U)Ord ered By: Dr. Thomas on 09-16-2022 Nitrite Ql (U) Positive Negative [facility] No Panel InformationOrdered By: Dr. Thomas on 09-16-2022 Estimated Creatinine Clearance Calc 33.28 ml/min [facility] Estimated GFR (MDRD) Amer 56 mL/min >60 [facility] Comment on above: GFR Calc Estimated GFR (MDRD) Non-Af Amer 46 mL/min >60 [facility] Comment on above: Non- GFR Calc No Panel InformationOrdered By: Dr. Buckner on 09-16-2022 Thyroid Stimulating Hormone (TSH) 2.42 uIU/mL 0.358-3.74 [facility] Platelets bldOrdered By: Dr. Thomas on 09-16-2022 Platelets (Bld) [#/Vol] 248 10*3/uL 150-450 [facility] Protein Test strip Ql (U)Ord ered By: Dr. Thomas on 09-16-2022 Protein Ql (U) Negative Negative [facility] Serum or plasma acetone beck urement (mass/volume)Ordered By: Dr. Thomas on 09-16-2022 Acetone [Mass/Vol] Negative NEG [facility] Serum or plasma albumin beck urement (mass/volume)Ordered By: Dr. Thomas on 09-16-2022 Albumin [Mass/Vol] 3.0 g/dL 3.2-5.0 [facility] Serum or plasma albumin/glob ulin mass ratioOrdered By: Dr. Thomas on 09-16-2022 Albumin/Globulin [Mass ratio] 0.9 {ratio} 0.9-2.4 [facility] Serum or plasma calcium beck urement (mass/volume)Ordered By: Dr. Thomas on 09-16-2022 Calcium [Mass/Vol] 9.0 mg/dL 8.5-10.1 [facility] Serum or plasma creatinine m easurement (mass/volume)Ordered By: Dr. Thomas on 09-16-2022 Creatinine [Mass/Vol] 1.18 mg/dL 0.55-1.02 [facility] Comment on above: The validity of the calculated GFR & GFRAA in patients over 70 years has not been determined. Clinical correlation is essential. Serum or plasma folate measu rement (mass/volume)Ordered By: Dr. Buckner on 09-16-2022 Folate [Mass/Vol] 40.40 ng/mL 3.1-55.4 [facility] Serum or plasma urea nitroge n measurement (mass/volume)Ordered By: Dr. Thomas on 09-16-2022 Urea nitrogen [Mass/Vol] 18 mg/dL 7-18 [facility] Squamous epithelial cells de tection in urine sediment by light microscopyOrdered By: Dr. Thomas on 09-16-2022 Epithelial cells.squamous LM Ql (Urine sed) 0 SEEN /hpf 5-10 [facility] Thin prep Papanicolaou smear with manual screeningOrdered By: Dr. Thomas on 09-16-2022 Thin prep Papanicolaou smear with manual screening 24 U/L 15-37 [facility] Thin prep Papanicolaou smear with manual screening 6 5-15 [facility] Urine blood detectionOrdered By: Dr. Thomas on 09-16-2022 RBC Ql (U) Negative Negative [facility] RBC Ql (U) 0 SEEN /hpf 0-5 [facility] Urine clarityOrdered By: Dr. Thomas on 09-16-2022 Clarity (U) Clear Clear [facility] Urine color determinationOrd ered By: Dr. Thomas on 09-16-2022 Color (U) Yellow Yellow [facility] Urine glucose detectionOrder ed By: Dr. Thomas on 09-16-2022 Glucose Ql (U) 1000 mg/dl Normal [facility] Urine leukocyte esterase det ection by dipstickOrdered By: Dr. Thomas on 09-16-2022 Leukocyte esterase Test strip Ql (U) Negative Negative [facility] Urine pHOrdered By: Dr. Bowie ht on 09-16-2022 pH (U) 5.0 [pH] 5.0 - 8.0 [facility] Urine sediment bacteria coun t by microscopy (number/high power field)Ordered By: Dr. Thomas on 09-16-2022 Bacteria LM.HPF (Urine sed) [#/Area] 1 /[HPF] None Seen [facility] Urine specific gravity measu rementOrdered By: Dr. Thomas on 09-16-2022 Specific gravity (U) [Rel density] 1.015 1.002-1.030 [facility] Urobilinogen Auto test strip Ql (U)Ordered By: Dr. Thomas on 09-16-2022 Urobilinogen Ql (U) Normal mg/dl Normal [facility] No Panel InformationOrdered By: Hung Adames on 08-19-2022 Giardia Antigen (JIMI) [facility] Ova and parasitesOrdered By: Hung Adames on 08-19-2022 Ova and parasites identified LM Nom (Unsp spec) [facility] No Panel InformationOrdered By: Hung Adames on 08-13-2022 Stool Pancreatic Elastase 75 >200 [facility] Comment on above: Result Units: ug Jeny st./gResults verified by repeat testing Severe Pancreatic Insufficiency: <100 Moderate Pancreatic Insufficiency: 100 - 200 Normal: >200Performed at: [facility] [employer] [id number] Director: Hi Hackett MD, Phone: [phone] Stool Calprotectin 423 ug/g 0-120 [facility] Comment on above: Concentration Interp retation Follow-Up<16 - 50 ug/g Normal None>50 -120 ug/g Borderline Re-evaluate in 4-6 weeks >120 ug/g Abnormal Repeat as clinically indicatedPerformed at: - [facility] [id number] [place], [place] [id number] Director: Kishor Sears PhD, Phone: [phone] at: [facility] [employer] [id number] Director: Hi Hackett MD, Phone: [phone] Stool Neutral Fats Normal . [facility] Comment on above: Normal (<60 Droplets /HPF) Qualitative fecal fat or lip idsOrdered By: Hung Adames on 08-13-2022 Fat Ql (Stl) Increased . [facility] Comment on above: Normal (<100 Droplet s/HPF) EP PanelOrdered By: Hung Adames on 08-11-2022 Gastrointestinal pathogens panel ANALISA+probe (Stl) [facility] Stool gastrointestinal hemog lobin detection by immunologic methodOrdered By: Hung Adames on 08-11-2022 Lower GI hemoglobin IA Ql (Stl) [facility] Stool lactoferrin detection by immunoassayOrdered By: Hung Adames on 08-11-2022 Lactoferrin IA Ql (Stl) [facility] Absolute lymphocyte countOrd ered By: Hung Adames on 08-10-2022 Lymphocytes Auto (Unsp spec) [#/Vol] 1.79 10*3/uL 0.83-4.51 [facility] Albumin Elph [Mass/Vol]Order ed By: Hung Adames on 08-10-2022 Albumin [Mass/Vol] 2.9 g/dL 2.9-4.4 [facility] Atypical perinuclear antineu trophil cytoplasmic antibodies measurementOrdered By: Hung Adames on 08-10-2022 Neutrophil cytoplasmic Ab.perinuclear.atypical IF (S) [Titer] <1:20 titer Neg:<1:20 [facility] Comment on above: The atypical pANCA p attern has been observed in asignificant percentage of patients with ulcerative colitis,primary sclerosing cholangitis and autoimmune hepatitis. Basophil percentageOrdered B y: Hung Adames on 08-10-2022 Basophil percentage 0.6 AI 0.0-0.9 [facility] Basophil percentage < 0.2 AI 0.0-0.9 [facility] Basophils/100 WBC (Bld) 0.6 % 0-[address] [facility] Bilirubin [Mass/Vol] 0.40 mg/dL 0.20-1.00 [facility] Comment on above: For patients on eltr ombopag therapy, use of Dimension [place] TBIL is not recommended. Chloride [Moles/Vol] 105 mmol/L 98-107 [facility] Eosinophils/100 WBC (Bld) 2.7 % 0-5 [facility] Glucose [Mass/Vol] 306 mg/dL 74-106 [facility] Comment on above: Glucose result great er than or equal to 200 mg/dLsuggests DIABETES MELLITUS per A.D.A. criteria. LDH [Catalytic activity/Vol] 205 U/L 84-246 [facility] Neutrophils (Bld) [#/Vol] 4.5 10*3/uL 2.0-7.7 [facility] Neutrophils/100 WBC (Bld) 62.6 % 47-70 [facility] Potassium [Moles/Vol] 4.1 mmol/L 3.5-5.1 [facility] Protein [Mass/Vol] 5.8 g/dL 6.4-8.2 [facility] Sodium [Moles/Vol] 140 mmol/L 136-145 [facility] WBC (Bld) [#/Vol] 7.1 10*3/uL 4.4-11.0 [facility] Blood erythrocytes count (nu mber/volume)Ordered By: Hung Adames on 08-10-2022 RBC (Bld) [#/Vol] 3.40 10*6/uL 4.2-5.4 [facility] Blood hemoglobin measurement (mass/volume)Ordered By: Hung Adames on 08-10-2022 Hemoglobin (Bld) [Mass/Vol] 10.1 g/dL 12.0-15. 0 [facility] Blood lymphocytes/100 leukoc ytesOrdered By: Hung Adames on 08-10-2022 Lymphocytes/100 WBC (Bld) 25.1 % 19-41 [facility] Blood monocytes/100 leukocyt esOrdered By: Hung Adames on 08-10-2022 Monocytes/100 WBC (Bld) 8.6 % 0-10 [facility] Blood platelet mean volumeOr dered By: Hung Adames on 08-10-2022 Platelet mean volume (Bld) [Entitic vol] 9.8 fL 6.2-12.0 [facility] Determination of erythrocyte mean corpuscular volume (MCV)Ordered By: Hung Adames on 08-10-2022 MCV (RBC) [Entitic vol] 94.1 fL 81-99 [facility] Erythrocyte sedimentation ra teOrdered By: Hung Adames on 08-10-2022 ESR (Bld) [Velocity] 2 mm/h 0-30 [facility] Hematocrit Auto (Bld) [Volum e fraction]Ordered By: Hung Adames on 08-10-2022 Hematocrit (Bld) [Volume fraction] 32.0 % 37-47 [facility] INR in Blood by Coagulation assayOrdered By: Hung Adames on 08-10-2022 INR Coag (Bld) [Relative time] 1.1 {INR} [facility] Interpretation of serum or p lasma protein pattern by immunofixation (narrative resultOrdered By: Hung Adames on 08-10-2022 Protein Fractions Immunofixation Lennox [Interp] See comment [facility] Comment on above: Result: Not Observed Laboratory - Chemistry and C hemistry - challengeOrdered By: Hung Adames on 08-10-2022 ALP [Catalytic activity/Vol] 96 U/L 45-117 [facility] ALT [Catalytic activity/Vol] 27 U/L 13-56 [facility] CO2 [Moles/Vol] 26.0 mmol/L 21.0-32.0 [facility] Free T4 [Mass/Vol] 0.97 ng/dL 0.76-1.46 [facility] Urea nitrogen/Creatinine [Mass ratio] 13.9 mg/mg 10-20 [facility] Laboratory - CoagulationOrde red By: Hung Adames on 08-10-2022 PT Coag (PPP) [Time] 14.0 s 11.7-14.9 [facility] Laboratory - Hematology and Cell countsOrdered By: Hung Adames on 08-10-2022 Erythrocyte distribution width (RBC) [Entitic vol] 46.5 fL 35.1-43.9 [facility] Erythrocyte distribution width (RBC) [Ratio] 13.6 % 11.6-14.6 [facility] Immature granulocytes/100 WBC (Bld) 0.400 % 0.0-0.9 [facility] Comment on above: IG% - Immature Granu locytes (promyelocytes, myelocytes and metamyelocytes) > 1% indicates that a LEFT SHIFT is Present. MCH (RBC) [Entitic mass] 29.7 pg 27.0-32.0 [facility] Nucleated RBC/100 WBC (Bld) [Ratio] 0 % 0-5 [facility] MCHC Auto (RBC) [Mass/Vol]Or dered By: Hung Adames on 08-10-2022 MCHC (RBC) [Mass/Vol] 31.6 g/dL 32-36 [facility] No Panel InformationOrdered By: Hung Adames on 08-10-2022 Addendum Document Comment . [facility] Comment on above: Protein electrophore sis scan will follow via computer,mail, or terminal make up operator delivery. Centromere B Antibody <0.2 AI 0.0-0.9 [facility] Endomysial IgA Antibody Negative Negative [facility] Estimated GFR (MDRD) Amer 54 mL/min >60 [facility] Comment on above: GFR Calc Estimated GFR (MDRD) Non-Af Amer 44 mL/min >60 [facility] Comment on above: Non- GFR Calc Free Triiodothyronine (T3) pg/dL 1.6 pg/mL 2.18-3.98 [facility] Immunoglobulin E 20 IU/mL 6-495 [facility] Comment on above: Performed at: [facility] - [facility] [address] [id number] Director: iKshor Sears PhD, Phone: [phone] at: - [facility] [id number] Director: Hi Hackett MD, Phone: [phone] REALTIME REPORTER Antibody <0.2 AI 0.0-0.9 [facility] Thyroid Stimulating Hormone (TSH) 2.56 uIU/mL 0.358-3.74 [facility] Platelets bldOrdered By: Rupert Adames on 08-10-2022 Platelets (Bld) [#/Vol] 211 10*3/uL 150-450 [facility] Serum DNA double strand anti body assay (units/volume)Ordered By: Hung Adames on 08-10-2022 DNA double strand Ab Qn (S) 18 [IU]/mL 0-9 [facility] Comment on above: Negative <5 Equivoca l 5 - 9 Positive >9 Serum Lolly-1 antibody assay (u nits/volume)Ordered By: Hung Adames on 08-10-2022 Lolly-1 extractable nuclear Ab Qn (S) <0.2 AI 0.0-0.9 [facility] Serum Scl-70 extractable nuc lear antibody assay (units/volume)Ordered By: Hung Adames on 08-10-2022 SCL-70 extractable nuclear Ab Qn (S) <0.2 AI 0.0-0.9 [facility] Serum [place] extractable nucl ear antibody detectionOrdered By: Hung Adames on 08-10-2022 [place] extractable nuclear Ab Ql (S) <0.2 AI 0.0-0.9 [facility] Serum [id number] measu rement by electrophoresisOrdered By: Hung Adames on 08-10-2022 Alpha 1 globulin Elph [Mass/Vol] 0.2 g/dL 0.0-0.4 [facility] Alpha 1 globulin Elph [Mass/Vol] 0.7 g/dL 0.4-1.0 [facility] Serum classic neutrophil cyt oplasmic antibody assay (units/volume)Ordered By: Hung Adames on 08-10-2022 Neutrophil cytoplasmic Ab.classic Qn (S) <1:20 titer Neg:<1:20 [facility] Serum globulin measurement ( mass/volume)Ordered By: Hung Adames on 08-10-2022 Globulin (S) [Mass/Vol] 2.7 g/dL 2.2-3.9 [facility] Serum or plasma C reactive p rotein measurement (mass/volume)Ordered By: Hung Adames on 08-10-2022 CRP [Mass/Vol] mg/L 0.0-3.0 [facility] Comment on above: C-Reactive Protein ( CRP) provides useful information for thediagnosis, therapy and monitoring of inflammatory processesand associated diseases. For the evaluation of Relative Riskfor Cardiovascular Disease, a High Sensitivity CRP (HSCRP)should be ordered. Serum or plasma IgA measurem ent (mass/volume)Ordered By: Hung Adames on 08-10-2022 IgA [Mass/Vol] 294 mg/dL 64-422 [facility] Serum or plasma IgG measurem ent (mass/volume)Ordered By: Hung Adames on 08-10-2022 IgG [Mass/Vol] 991 mg/dL 586-1602 [facility] Serum or plasma IgM measurem ent (mass/volume)Ordered By: Hung Adames on 08-10-2022 IgM [Mass/Vol] 64 mg/dL 26-217 [facility] Serum or plasma albumin beck urement (mass/volume)Ordered By: Hung Adames on 08-10-2022 Albumin [Mass/Vol] 2.6 g/dL 3.2-5.0 [facility] Serum or plasma albumin/glob ulin mass ratioOrdered By: Hung Adames on 08-10-2022 Albumin/Globulin [Mass ratio] 0.8 {ratio} 0.9-2.4 [facility] Serum or plasma beta globuli n measurement by electrophoresis (mass/volume)Ordered By: Hungantonio Adames on 08-10-2022 Beta globulin Elph [Mass/Vol] 0.8 g/dL 0.7-1.3 [facility] Serum or plasma calcium beck urement (mass/volume)Ordered By: Hung Adames on 08-10-2022 Calcium [Mass/Vol] 8.4 mg/dL 8.5-10.1 [facility] Serum or plasma creatinine m easurement (mass/volume)Ordered By: Hung Adames on 08-10-2022 Creatinine [Mass/Vol] 1.22 mg/dL 0.55-1.02 [facility] Comment on above: The validity of the calculated GFR & GFRAA in patients over 70 years has not been determined. Clinical correlation is essential. Serum or plasma ferritin jose carlos surement (mass/volume)Ordered By: Hung Adames on 08-10-2022 Ferritin [Mass/Vol] 57 ng/mL 8-252 [facility] Serum or plasma gamma globul in measurement by electrophoresis (mass/volume)Ordered By: Hung Adames on 08-10-2022 Gamma globulin Elph [Mass/Vol] 1.0 g/dL 0.4-1.8 [facility] Serum or plasma immunoelectr ophoresis interpretation (nominal result)Ordered By: Hung Adames on 08-10-2022 Interpretation IEP [Interp] Comment . [facility] Comment on above: No monoclonality det ected. Serum or plasma urea nitroge n measurement (mass/volume)Ordered By: Hung Adames on 08-10-2022 Urea nitrogen [Mass/Vol] 17 mg/dL 7-18 [facility] Serum perinuclear neutrophil cytoplasmic antibody titer by immunofluorescenceOrdered By: Hung Adames on 08-10-2022 Neutrophil cytoplasmic Ab.perinuclear IF (S) [Titer] <1:20 titer Neg:<1:20 [facility] Comment on above: The presence of posi tive fluorescence exhibiting P-ANCA orC-ANCA patterns alone is not specific for the diagnosis ofWegener's Granulomatosis (WG) or microscopic polyangiitis.Decisions about treatment should not be based solely onANCA IFA results. The [employer] ANCA [employer] Consensusrecommends follow up testing of positive sera with both WV-3 and MPO-ANCA enzyme immunoassays. As many as 5% serumsamples are positive only by EIA. Ref. AM J Clin Gipvyt2382;111:507-513. Serum tissue transglutaminas e IgA antibody assay (units/volume)Ordered By: Hung Adames on 08-10-2022 tTG IgA Qn (S) <2 U/mL 0-3 [facility] Comment on above: Negative 0 - 3 Weak Positive 4 - 10 Positive >10 Tissue Transglutaminase (tTG) has been identified as the endomysial antigen. Studies have demonstr- ated that endomysial IgA antibodies have over 99% specificity for gluten sensitive enteropathy. Thin prep Papanicolaou smear with manual screeningOrdered By: Hung Adames on 08-10-2022 Thin prep Papanicolaou smear with manual screening 26 U/L 15-37 [facility] Thin prep Papanicolaou smear with manual screening 9 5-15 [facility] Thin prep Papanicolaou smear with manual screening 1.1 0.7-1.7 [facility] Total protein bloodOrdered B y: Hung Adames on 08-10-2022 Protein [Mass/Vol] 5.6 g/dL 6.0-8.5 [facility] Culture, urineOrdered By: Dr Edmond Lauren on 06-17-2022 Bacteria identified Cx Nom (U) Klebsiella aerogenes [facility] Absolute lymphocyte countOrd ered By: Dr. Verma on 06-16-2022 Lymphocytes Auto (Unsp spec) [#/Vol] 1.80 10*3/uL 0.83-4.51 [facility] Basophil percentageOrdered B y: Dr. Verma on 06-16-2022 Basophils/100 WBC (Bld) 0.7 % 0-[address] [facility] Chloride [Moles/Vol] 103 mmol/L 98-107 [facility] Eosinophils/100 WBC (Bld) 5.6 % 0-5 [facility] Glucose [Mass/Vol] 84 mg/dL 74-106 [facility] Neutrophils (Bld) [#/Vol] 5.2 10*3/uL 2.0-7.7 [facility] Neutrophils/100 WBC (Bld) 61.5 % 47-70 [facility] Potassium [Moles/Vol] 4.3 mmol/L 3.5-5.1 [facility] Sodium [Moles/Vol] 135 mmol/L 136-145 [facility] WBC (Bld) [#/Vol] 8.4 10*3/uL 4.4-11.0 [facility] Blood erythrocytes count (nu mber/volume)Ordered By: Dr. Verma on 06-16-2022 RBC (Bld) [#/Vol] 3.07 10*6/uL 4.2-5.4 [facility] Blood hemoglobin measurement (mass/volume)Ordered By: Dr. Verma on 06-16-2022 Hemoglobin (Bld) [Mass/Vol] 9.1 g/dL 12.0-15. 0 [facility] Blood lymphocytes/100 leukoc ytesOrdered By: Dr. Verma on 06-16-2022 Lymphocytes/100 WBC (Bld) 21.4 % 19-41 [facility] Blood monocytes/100 leukocyt esOrdered By: Dr. Verma on 06-16-2022 Monocytes/100 WBC (Bld) 10.2 % 0-10 [facility] Blood platelet mean volumeOr dered By: Dr. Verma on 06-16-2022 Platelet mean volume (Bld) [Entitic vol] 9.9 fL 6.2-12.0 [facility] Determination of erythrocyte mean corpuscular volume (MCV)Ordered By: Dr. Verma on 06-16-2022 MCV (RBC) [Entitic vol] 92.2 fL 81-99 [facility] Glucose Glucometer (BldC) [M ass/Vol]Ordered By: Dr. Verma on 06-16-2022 Glucose [Mass/Vol] 185 mg/dL 74-106 [facility] Comment on above: MANAGEMENT OF PATIEN T CARE PER NURSING PROTOCOL Hematocrit Auto (Bld) [Volum e fraction]Ordered By: Dr. Verma on 06-16-2022 Hematocrit (Bld) [Volume fraction] 28.3 % 37-47 [facility] Laboratory - Chemistry and C hemistry - challengeOrdered By: Dr. Verma on 06-16-2022 CO2 [Moles/Vol] 27.0 mmol/L 21.0-32.0 [facility] Urea nitrogen/Creatinine [Mass ratio] 14.5 mg/mg 10-20 [facility] Laboratory - Hematology and Cell countsOrdered By: Dr. Verma on 06-16-2022 Erythrocyte distribution width (RBC) [Entitic vol] 46.6 fL 35.1-43.9 [facility] Erythrocyte distribution width (RBC) [Ratio] 13.8 % 11.6-14.6 [facility] Immature granulocytes/100 WBC (Bld) 0.600 % 0.0-0.9 [facility] Comment on above: IG% - Immature Granu locytes (promyelocytes, myelocytes and metamyelocytes) > 1% indicates that a LEFT SHIFT is Present. MCH (RBC) [Entitic mass] 29.6 pg 27.0-32.0 [facility] Nucleated RBC/100 WBC (Bld) [Ratio] 0 [facility] [Mass/Vol]Or dered By: Dr. Verma on 06-16-2022 MCHC (RBC) [Mass/Vol] 32.2 g/dL 32-36 [facility] No Panel InformationOrdered By: Dr. Verma on 06-16-2022 Estimated Creatinine Clearance Calc 40.91 ml/min [facility] Estimated GFR (MDRD) Amer 71 mL/min >60 [facility] Comment on above: GFR Calc Estimated GFR (MDRD) Non-Af Amer 58 mL/min >60 [facility] Comment on above: Non- GFR Calc Platelets bldOrdered By: Dr. Verma on 06-16-2022 Platelets (Bld) [#/Vol] 203 10*3/uL 150-450 [facility] Serum or plasma calcium beck urement (mass/volume)Ordered By: Dr. Verma on 06-16-2022 Calcium [Mass/Vol] 8.3 mg/dL 8.5-10.1 [facility] Serum or plasma creatinine m easurement (mass/volume)Ordered By: Dr. Verma on 06-16-2022 Creatinine [Mass/Vol] 0.96 mg/dL 0.55-1.02 [facility] Comment on above: The validity of the calculated GFR & GFRAA in patients over 70 years has not been determined. Clinical correlation is essential. Serum or plasma urea nitroge n measurement (mass/volume)Ordered By: Dr. Verma on 06-16-2022 Urea nitrogen [Mass/Vol] 14 mg/dL 7-18 [facility] Thin prep Papanicolaou smear with manual screeningOrdered By: Dr. Verma on 06-16-2022 Thin prep Papanicolaou smear with manual screening 5 5-15 [facility] Basophil percentageOrdered B y: Dr. Paredes on 06-15-2022 Cholesterol [Mass/Vol] 91 mg/dL <200 [facility] Comment on above: <200 mg/dL Desirable 200-240 mg/dL Borderline >240 mg/dL High Risk Triglyceride [Mass/Vol] 51 mg/dL <199 [facility] Comment on above: The drugs N-Acetylcy steine and Metamizole may falsely depress this assay.Serum Triglycerides Reference Interval Normal <150 mg/dL Borderline high 150 - 199 mg/dL High 200 - 499 mg/dL Very High > or = 500 mg/dL Serum or plasma cholesterol in HDL measurement (mass/volume)Ordered By: Dr. Paredes on 06-15-2022 Cholesterol in HDL [Mass/Vol] 45 mg/dL >40 [facility] Comment on above: The drugs N-Acetylcy steine and Metamizole may falsely depress this assay. Reference Range HDL <40 mg/dL Low HDL Cholesterol HDL >or= 60 mg/dL High HDL Cholesterol Serum or plasma cholesterol in VLDL measurement (mass/volume)Ordered By: Dr. Paredes on 06-15-2022 Cholesterol in VLDL [Mass/Vol] 10 mg/dL 5-40 [facility] Serum or plasma low density lipoprotein (LDL) cholesterol measurement (mass/volume)Ordered By: Dr. Paredes on 06-15-2022 Cholesterol in LDL [Mass/Vol] 36 mg/dL 0-130 [facility] Whole blood hemoglobin A1c/t otal hemoglobin ratio (mass fraction)Ordered By: Dr. Paredes on 06-15-2022 HbA1c (Bld) [Mass fraction] 6.1 % 3.8-5.6 [facility] Comment on above: Normal < 5.7 % Predi abetic 5.7 - 6.4 % Diabetic >or= 6.5 % Please note range changes. Basophil percentageOrdered B y: Dr. Lauren on 06-14-2022 Basophil percentage 0-5 SEEN /hpf 0-5 [facility] Bilirubin Test strip Ql (U)O rdered By: Dr. Lauren on 06-14-2022 Bilirubin Ql (U) Negative Negative [facility] INR in Blood by Coagulation assayOrdered By: Dr. Lauren on 06-14-2022 INR Coag (Bld) [Relative time] 1.0 {INR} [facility] Ketones Test strip Ql (U)Ord ered By: Dr. Lauren on 06-14-2022 Ketones Ql (U) Negative Negative [facility] Laboratory - CoagulationOrde red By: Dr. Lauren on 06-14-2022 aPTT Coag (Bld) [Time] 23.5 s 24.1-36.2 [facility] PT Coag (PPP) [Time] 13.3 s 11.7-14.9 [facility] Mucus LM Ql (Urine sed)Order ed By: Dr. Lauren on 06-14-2022 Mucus Ql (Urine sed) 0 SEEN /hpf [facility] Nitrite Test strip Ql (U)Ord ered By: Dr. Lauren on 06-14-2022 Nitrite Ql (U) Negative Negative [facility] No Panel InformationOrdered By: Dr. Lauren on 06-14-2022 Troponin I High Sensitivity 25 pg/mL 3.0-54.0 [facility] Comment on above: Please Note: New Mesha t Units and Gender Specific Reference Ranges. For more information see Policy Stat Procedure [place] High Sensitivity Troponin (TNIH) and attachments. Protein Test strip Ql (U)Ord ered By: Dr. Lauren on 06-14-2022 Protein Ql (U) Negative Negative [facility] Squamous epithelial cells de tection in urine sediment by light microscopyOrdered By: Dr. Lauren on 06-14-2022 Epithelial cells.squamous LM Ql (Urine sed) 0 SEEN /hpf 5-10 [facility] Urine blood detectionOrdered By: Dr. Lauren on 06-14-2022 RBC Ql (U) Negative Negative [facility] RBC Ql (U) 0 SEEN /hpf 0-5 [facility] Urine clarityOrdered By: Dr. Lauren on 06-14-2022 Clarity (U) Sl. Cloudy Clear [facility] Urine color determinationOrd ered By: Dr. Lauren on 06-14-2022 Color (U) Yellow Yellow [facility] Urine glucose detectionOrder ed By: Dr. Lauren on 06-14-2022 Glucose Ql (U) Normal mg/dl Normal [facility] Urine leukocyte esterase det ection by dipstickOrdered By: Dr. Lauren on 06-14-2022 Leukocyte esterase Test strip Ql (U) 25 /ul Negative [facility] Urine pHOrdered By: Dr. Kieran fuchs on 06-14-2022 pH (U) 8.0 [pH] 5.0 - 8.0 [facility] Urine sediment bacteria coun t by microscopy (number/high power field)Ordered By: Dr. Laurne on 06-14-2022 Bacteria LM.HPF (Urine sed) [#/Area] 3 /[HPF] None Seen [facility] Urine specific gravity measu rementOrdered By: Dr. Lauren on 06-14-2022 Specific gravity (U) [Rel density] 1.015 1.002-1.030 [facility] Urobilinogen Auto test strip Ql (U)Ordered By: Dr. Lauren on 06-14-2022 Urobilinogen Ql (U) Normal mg/dl Normal [facility] Vital Signs Date Time Vital Sign Value Performing Clinician Facility 02-22-2025 18:09-0400 Body temperature 97.4 [degF] Dr. Clinton Fowler DO Work Phone: [facility] 02-22-2025 18:09-0400 Diastolic blood pressure 74 mm[Hg] Dr. Clinton Fowler DO Work Phone: [facility] 02-22-2025 18:09-0400 Heart rate 61 /min Dr. Clinton Fowler DO Work Phone: [facility] 02-22-2025 18:09-0400 Respiratory rate 16 /min Dr. Clinton Fowler DO Work Phone: [facility] 02-22-2025 18:09-0400 SaO2% (BldA) [Mass fraction] 97 % Dr. Clinton Fowler DO Work Phone: [facility] 02-22-2025 18:09-0400 Systolic blood pressure 170 mm[Hg] Dr. Clinton Fowler DO Work Phone: [facility] 02-22-2025 14:41-0400 Body height 160.[address] Clinton Fowler DO Work Phone: [facility] 02-22-2025 14:41-0400 Body mass index (BMI) [Ratio] 30.3 kg/m2 Dr. Clinton Fowler DO Work Phone: [facility] 02-22-2025 14:41-0400 Body weight 77.[address] Clinton Fowler DO Work Phone: [facility] 11-25-2024 13:12-0400 Body height 160 cm Libertad Whittaker [employer] Work Phone: [facility] 11-25-2024 13:12-0400 Body mass index (BMI) [Ratio] 29.58 kg/m2 Libertad Marieandt [employer] Work Phone: [facility] 11-25-2024 13:12-0400 Body weight 75.75 kg Libertad Marieandt [employer] Work Phone: [facility] 11-25-2024 13:12-0400 Diastolic blood pressure 84 mm[Hg] Libertad Marieandt [employer] Work Phone: [facility] 11-25-2024 13:12-0400 Heart rate 60 /min Libertad Marieandt [employer] Work Phone: [facility] 11-25-2024 13:12-0400 Systolic blood pressure 149 mm[Hg] Libertad Marieandt [employer] Work Phone: [facility] 06-08-2023 00:26-0500 Diastolic blood pressure 87 mm[Hg] Dr. Clinton Fowler Work Phone: [facility] 06-08-2023 00:26-0500 Heart rate 72 /min Dr. Clinton Fowler Work Phone: [facility] 06-08-2023 00:26-0500 Respiratory rate 16 /min Dr. Clinton Fowler Work Phone: [facility] 06-08-2023 00:26-0500 SaO2% (BldA) [Mass fraction] 97 % Dr. Clinton Fowler Work Phone: [facility] 06-08-2023 00:26-0500 Systolic blood pressure 161 mm[Hg] Dr. Clinton Fowler Work Phone: [facility] 06-07-2023 22:34-0500 Body height 160.[address] Clinton Fowler Work Phone: [facility] 06-07-2023 22:34-0500 Body mass index (BMI) [Ratio] 31 kg/m2 Dr. Clinton Fowler Work Phone: [facility] 06-07-2023 22:34-0500 Body temperature 97.6 [degF] Dr. Clinton Fowler Work Phone: [facility] 06-07-2023 22:34-0500 Body weight 79.[address] Clinton Fowler Work Phone: [facility] 06-03-2023 12:27-0500 Body mass index (BMI) [Ratio] 29 kg/m2 Dr. Clinton Fowler Work Phone: [facility] 06-03-2023 12:27-0500 Body weight 74.[address] Clinton Fowler Work Phone: [facility] 06-03-2023 12:27-0500 Diastolic blood pressure 90 mm[Hg] Dr. Clinton Fowler Work Phone: [facility] 06-03-2023 12:27-0500 Heart rate 77 /min Dr. Clinton Fowler Work Phone: [facility] 06-03-2023 12:27-0500 Respiratory rate 18 /min Dr. Clinton Fowler Work Phone: [facility] 06-03-2023 12:27-0500 SaO2% (BldA) [Mass fraction] 93 % Dr. Clinton Fowler Work Phone: [facility] 06-03-2023 12:27-0500 Systolic blood pressure 167 mm[Hg] Dr. Clinton Fowler Work Phone: [facility] 01-14-2023 13:40-0400 Body temperature 97.9 [degF] Dr. Clinton Fowler Work Phone: [facility] 01-14-2023 13:40-0400 Diastolic blood pressure 55 mm[Hg] Dr. Clinton Fowler Work Phone: [facility] 01-14-2023 13:40-0400 Heart rate 99 /min Dr. Clinton Fowler Work Phone: [facility] 01-14-2023 13:40-0400 Respiratory rate 15 /min Dr. Clinton Fowler Work Phone: [facility] 01-14-2023 13:40-0400 SaO2% (BldA) [Mass fraction] 97 % Dr. Clinton Fowler Work Phone: [facility] 01-14-2023 13:40-0400 Systolic blood pressure 130 mm[Hg] Dr. Clinton Fowler Work Phone: [facility] 01-13-2023 14:42-0400 Body height 177.[address] Clinton Fowler Work Phone: [facility] 01-13-2023 14:42-0400 Body weight 73.[address] Clinton Fowler Work Phone: [facility] 01-12-2023 16:07-0400 Body mass index (BMI) [Ratio] 23.2 kg/m2 Dr. Clinton Fowler Work Phone: [facility] 09-20-2022 15:19-0500 Body height 177.[address] Clinton Fowler Work Phone: [facility] 09-20-2022 15:19-0500 Body weight 84.[address] Clinton Fowler Work Phone: [facility] 09-20-2022 15:16-0500 Body temperature 97.6 [degF] Dr. Clinton Fowler Work Phone: [facility] 09-20-2022 15:16-0500 Diastolic blood pressure 64 mm[Hg] Dr. Clinton Fowler Work Phone: [facility] 09-20-2022 15:16-0500 Heart rate 63 /min Dr. Clinton Fowler Work Phone: [facility] 09-20-2022 15:16-0500 Respiratory rate 14 /min Dr. Clinton Fowler Work Phone: [facility] 09-20-2022 15:16-0500 SaO2% (BldA) [Mass fraction] 97 % Dr. Clinton Fowler Work Phone: [facility] 09-20-2022 15:16-0500 Systolic blood pressure 112 mm[Hg] Dr. Clinton Fowler Work Phone: [facility] 09-20-2022 14:13-0500 Body mass index (BMI) [Ratio] 26.6 kg/m2 Dr. Clinton Fowler Work Phone: [facility] 09-18-2022 14:55-0500 Inhaled oxygen flow rate 2 L/min Dr. Clinton Fowler Work Phone: [facility] 09-16-2022 20:15-0500 Body height 177.[address] Clinton Fowler Work Phone: [facility] 09-16-2022 20:15-0500 Body mass index (BMI) [Ratio] 26.6 kg/m2 Dr. Clinton Fowler Work Phone: [facility] 09-16-2022 20:15-0500 Body weight 84.[address] Clinton Fowler Work Phone: [facility] 09-16-2022 19:54-0500 Body temperature 97.9 [degF] Dr. Clinton Fowler Work Phone: [facility] 09-16-2022 19:54-0500 Diastolic blood pressure 77 mm[Hg] Dr. Clinton Fowler Work Phone: [facility] 09-16-2022 19:54-0500 Heart rate 72 /min Dr. Clinton Fowler Work Phone: [facility] 09-16-2022 19:54-0500 Respiratory rate 18 /min Dr. Clinton Fowler Work Phone: [facility] 09-16-2022 19:54-0500 SaO2% (BldA) [Mass fraction] 95 % Dr. Clinton Fowler Work Phone: [facility] 09-16-2022 19:54-0500 Systolic blood pressure 136 mm[Hg] Dr. Clinton Fowler Work Phone: [facility] 06-16-2022 16:00-0500 Body temperature 97.9 [degF] Dr. Clinton Fowler Work Phone: [facility] 06-16-2022 16:00-0500 Diastolic blood pressure 102 mm[Hg] Dr. Clinton Fowler Work Phone: [facility] 06-16-2022 16:00-0500 Heart rate 82 /min Dr. Clinton Fowler Work Phone: [facility] 06-16-2022 16:00-0500 Respiratory rate 18 /min Dr. Clinton Fowler Work Phone: [facility] 06-16-2022 16:00-0500 SaO2% (BldA) [Mass fraction] 94 % Dr. Clinton Fowler Work Phone: [facility] 06-16-2022 16:00-0500 Systolic blood pressure 123 mm[Hg] Dr. Clinton Fowler Work Phone: [facility] 06-15-2022 19:47-0500 Body mass index (BMI) [Ratio] 30.4 kg/m2 Dr. Clinton Fowler Work Phone: [facility] 06-15-2022 11:29-0500 Body height 170.[address] Clinton Fowler Work Phone: [facility] 06-15-2022 11:29-0500 Body weight 88.[address] Clinton Fowler Work Phone: [facility] 02-04-2022 15:50-0400 Body height 170.18 cm [facility] Work Phone: 02-04-2022 15:50-0400 Body mass index (BMI) [Ratio] 32.8 kg/m2 [facility] Work Phone: 02-04-2022 15:50-0400 Body temperature 99 [degF] [facility] Work Phone: 02-04-2022 15:50-0400 Body weight 95.25 kg [facility] Work Phone: 02-04-2022 15:50-0400 Diastolic blood pressure 70 mm[Hg] [facility] Work Phone: 02-04-2022 15:50-0400 Heart rate 84 /min [facility] Work Phone: 02-04-2022 15:50-0400 Respiratory rate 14 /min [facility] Work Phone: 02-04-2022 15:50-0400 SaO2% (BldA) [Mass fraction] 97 % [facility] Work Phone: 02-04-2022 15:50-0400 Systolic blood pressure 138 mm[Hg] [facility] Work Phone: Encounters Encounter Date Encounter Type Care Provider Facility Start: 02-25-2025 ambulatory Clinton Fowler Facility: [facility] Start: 02-22-2025 End: 02-22-2025 Emergency department patient visit Dr. Clinton Fowler DO Work Phone: -Emergency Department Work Phone: Start: 01-01-2025 End: 01-01-[address] Clinton Fowler DO Work Phone: [facility] Work Phone: Start: 01-01-2025 End: 01-01-[address] Clinton Fowler DO -Laboratory Tayo Santana [facility] Start: 01-01-2025 End: 01-01-2025 ambulatory Clinton Fowler Facility:[facility] Start: 12-11-2024 End: 12-11-2024 Patient encounter procedure Hung Adames DO -[facility] Work Phone: Start: 12-11-2024 End: 12-11-[address] Clinton Fowler DO Work Phone: [facility] Work Phone: Start: 11-25-2024 End: 11-25-2024 ambulatory LIBERTAD S MACEYTYRAT [facility] Start: 11-25-2024 End: 11-25-2024 Office outpatient new 60 minutes Libertad S Maceyandt [employer] Work Phone: [facility] Office Building Comment on above: TOBY (obstructive sle ep apnea) (Primary Dx); PLMD (periodic limb movement disorder); Dementia without behavioral disturbance (Multi); Hypersomnia Start: 06-28-2024 End: 06-28-2024 Emergency department patient visit Nikita Christiano Facility:[facility] Start: 06-09-2024 End: 06-09-2024 ambulatory Hung Adames Facility:[facility] Start: 05-23-2024 End: 05-23-2024 ambulatory Libertad S Weygandt DECISION UNIT RN Facility:[facility] Start: 01-21-2024 End: 01-21-2024 ambulatory LIBERTAD S WEYGANDT Not Available Start: 09-28-2023 End: 09-28-2023 ambulatory [facility] Work Phone: Start: 09-28-2023 End: 09-28-2023 Patient encounter procedure [facility]-Laboratory, Specimen Work Phone: Start: 07-20-2023 End: 07-20-2023 ambulatory LIBERTAD WHITTAKER Not Available Start: 06-07-2023 End: 06-08-2023 Emergency department patient [facility] Clinton [facility] Start: 06-04-2023 End: 06-04-[address] Clinton Fowler Work Phone: [facility] Work Phone: Start: 06-03-2023 End: 06-03-[address] Clinton Fowler Work Phone: [facility] Work Phone: Start: 04-27-2023 End: 04-27-[address] Clinton Fowler Work Phone: [facility] Work Phone: Start: 04-27-2023 End: 04-27-[address] Clinton Fowler Work Phone: [facility] Work Phone: Start: 04-25-2023 End: 04-25-[address] Clinton Fowler Work Phone: [facility] Work Phone: Start: 04-25-2023 End: 04-25-[address] Clinton Fowler Work Phone: [facility] Start: 01-24-2023 End: 01-24-[address] Clinton Fowler Work Phone: [facility] Work Phone: Start: 01-24-2023 End: 01-24-[address] Clinton Fowler Work Phone: [facility] Start: 01-14-2023 Non-patient / Non-visit Dr. Clinton Fowler Work Phone: [facility] Work Phone: Start: 01-13-2023 Non-patient / Non-visit Dr. Clinton Fowler Work Phone: [facility] Start: 01-13-2023 Non-patient / Non-visit Dr. Clinton Fowler Work Phone: [facility] Work Phone: Start: 01-12-2023 Non-patient / Non-visit Dr. Clinton Fowler Work Phone: [facility] Start: 01-12-2023 Non-patient / Non-visit Dr. Clinton Fowler Work Phone: [facility] Work Phone: Start: 01-12-2023 End: 01-14-2023 Evaluation and management of inpatient Dr. Clinton Fowler Work Phone: [facility]-Progressive Care Unit Work Phone: Start: 12-05-2022 End: 12-05-[address] Clinton Fowler Work Phone: [facility] Work Phone: Start: 10-23-2022 End: 10-23-[address] Clinton Fowler Work Phone: [facility] Work Phone: Start: 10-23-2022 End: 10-23-[address] Clinton Fowler Work Phone: [facility]-Laboratory Start: 09-20-2022 Non-patient / Non-visit Dr. Clinton Fowler Work Phone: [facility] Start: 09-19-2022 End: 09-19-2022 Non-patient / Non-visit Dr. Clinton Fowler Work Phone: [facility] Start: 09-19-2022 Non-patient / Non-visit Dr. Clinton Fowler Work Phone: [facility] Start: 09-18-2022 Non-patient / Non-visit Dr. Clinton Fowler Work Phone: [facility] Start: 09-17-2022 Non-patient / Non-visit Dr. Clinton Fowler Work Phone: [facility] Start: 09-16-2022 End: 09-20-2022 Evaluation and management of inpatient Dr. Clinton Fowler Work Phone: [facility]-Medical Surgical 3 Start: 08-23-2022 End: 08-23-[address] Clinton Fowler Work Phone: [facility] Work Phone: Start: 08-23-2022 End: 08-23-[address] Clinton Fowler Work Phone: [facility] Start: 08-13-2022 End: 08-13-[address] Clinton Fowler Work Phone: [facility] Work Phone: Start: 08-13-2022 End: 08-13-[address] Clinton Fowler Work Phone: [facility]-Laboratory, Specimen Start: 08-11-2022 End: 08-11-[address] Clinton Fowler Work Phone: [facility] Work Phone: Start: 08-11-2022 End: 08-11-[address] Clinton Fowler Work Phone: [facility]-Laboratory, Specimen Start: 08-10-2022 End: 08-10-[address] Clinton Fowler Work Phone: [facility] Work Phone: Start: 08-10-2022 End: 08-10-[address] Clinton Fowler Work Phone: [facility] Start: 06-16-2022 Non-patient / Non-visit Dr. Clinton Fowler Work Phone: [facility] Start: 06-15-2022 Non-patient / Non-visit Dr. Clinton Fowler Work Phone: [facility] Start: 06-15-2022 End: 06-16-2022 Evaluation and management of inpatient Dr. Clinton Fowler [facility] Start: 06-15-2022 End: 06-16-[address] Clinton Fowler Work Phone: [facility] Work Phone: Start: 02-04-2022 End: 02-04-2022 Emergency department patient visit [facility]-Emergency Department Procedures Date Procedure Procedure Detail Performing Clinician Start: 02-22-2025 X-ray of chest, PA a nd lateral views Dr. Clinton Fowler DO Work Phone: Start: 02-22-2025 Urnls dip stick/tabl et reagent auto microscopy Dr. Clinton Fowler DO Work Phone: Start: 02-22-[address] Clinton Fowler DO Work Phone: Start: 02-22-2025 CT of head without contrast Dr. Clinton Fowler DO Work Phone: Start: 09-28-2023 Urine culture Start: 06-07-2023 Plain [...] DTaP/Tdap/Td Vaccines (3 - Td or Tdap) [facility] Start: 05-26-2025 End: 05-26-2025 Patient encounter procedure 05/26/2025 1:00 PM EST Office Visit [facility] Medical Office Building [address] [place] [address] Libertad Whittaker, [employer] [address] [address] [facility] Start: 02-22-2025 [facility] Start: 02-22-2025 [facility] Start: 02-22-2025 Bacteria identified in Urine by Culture Urine Culture [facility] Start: 03-16-2024 COVID-19 Vaccine () COVID-19 Vaccine () [facility] Start: 06-08-2023 [facility] Start: 06-07-2023 Plain chest X-ray Chest 1 View (Portable) [facility] Start: 06-07-2023 XR Chest Single view [facility] Start: 01-14-2023 Patient discharge [facility] Start: 01-13-2023 Ova and Parasites Ova and Parasites [facility] Start: 01-12-2023 Assessment of risk of venous thromboembolism [facility] Start: 01-12-2023 Documentation procedure [facility] Start: 01-12-2023 Insertion of catheter into peripheral vein [facility] Start: 01-12-2023 Measuring intake and output [facility] Start: 01-12-2023 Providing care according to standard [facility] Start: 01-12-2023 Provision of activity privileges [facility] Start: 01-12-2023 Referral to gastroenterology service [facility] Start: 01-12-2023 Referral to occupational therapist [facility] Start: 01-12-2023 Referral to service [facility] Start: 01-12-2023 [facility] Start: 01-12-2023 Following clinical pathway protocol [facility] Start: 01-12-2023 Admission procedure [facility] Start: 01-12-2023 Patient referral to dietitian [facility] Start: 12-26-2022 Pneumococcal vaccination Pneumococcal Vaccine (2 of 2 - PCV) [facility] Start: 09-26-2022 Blood chemistry [facility] Start: 09-25-2022 Blood chemistry [facility] Start: 09-24-2022 Blood chemistry [facility] Start: 09-23-2022 Blood chemistry [facility] Start: 09-22-2022 Blood chemistry [facility] Start: 09-21-2022 Blood chemistry [facility] Start: 09-20-2022 Patient discharge [facility] Start: 09-20-2022 Referral to service [facility] Start: 09-18-2022 Speech therapy assessment [facility] Start: 09-18-2022 Implementation of planned interventions [facility] Start: 09-18-2022 Notification of physician [facility] Start: 09-18-2022 Care planning and problem solving actions [facility] Start: 09-18-2022 Cardiac monitoring [facility] Start: 09-18-2022 Catheterization of vein [facility] Start: 09-18-2022 Elevation of head of bed [facility] Start: 09-18-2022 Exercises [facility] Start: 09-18-2022 Implementation of planned interventions [facility] Start: 09-18-2022 Notification of physician [facility] Start: 09-18-2022 [facility] Start: 09-16-2022 Assessment of risk of venous thromboembolism [facility] Start: 09-16-2022 Care regimes management [facility] Start: 09-16-2022 Catheterization of vein [facility] Start: 09-16-2022 Insertion of catheter into peripheral vein [facility] Start: 09-16-2022 Oxygen therapy [facility] Start: 09-16-2022 Providing care according to standard [facility] Start: 09-16-2022 Provision of activity privileges [facility] Start: 09-16-2022 Referral to occupational therapist [facility] Start: 09-16-2022 Referral to service [facility] Start: 09-16-2022 [facility] Start: 09-16-2022 Following clinical pathway protocol [facility] Start: 09-16-2022 Verification routine [facility] Start: 09-16-2022 Admission procedure [facility] Start: 09-16-2022 Blood culture [facility] Start: 09-16-2022 End: 09-16-2022 [facility] Start: 09-16-2022 Blood culture [facility] Start: 09-16-2022 Patient referral to dietitian [facility] Start: 06-23-2022 Blood chemistry [facility] Work Phone: Start: 06-22-2022 Blood chemistry [facility] Work Phone: Start: 06-21-2022 Blood chemistry [facility] Work Phone: Start: 06-20-2022 Blood chemistry [facility] Work Phone: Start: 06-19-2022 Blood chemistry [facility] Work Phone: Start: 06-18-2022 Blood chemistry [facility] Work Phone: Start: 06-17-2022 Blood chemistry [facility] Work Phone: Start: 06-16-2022 Patient discharge [facility] Start: 06-15-2022 Application of intermittent pneumatic compression device [facility] Start: 06-15-2022 Following clinical pathway protocol [facility] Start: 06-15-2022 Assessment of risk of venous thromboembolism [facility] Start: 06-15-2022 Cardiac monitoring [facility] Start: 06-15-2022 Catheterization of vein [facility] Start: 06-15-2022 Elevation of head of bed [facility] Start: 06-15-2022 Exercises [facility] Start: 06-15-2022 Implementation of planned interventions [facility] Start: 06-15-2022 Insertion of catheter into peripheral vein [facility] Start: 06-15-2022 Measuring intake and output [facility] Start: 06-15-2022 Notification of physician [facility] Start: 06-15-2022 Providing care according to standard [facility] Start: 06-15-2022 Provision of activity privileges [facility] Start: 06-15-2022 Referral to occupational therapist [facility] Start: 06-15-2022 Referral to service [facility] Start: 06-15-2022 Tobacco use cessation education [facility] Start: 06-15-2022 [facility] Start: 06-15-2022 Admission procedure [facility] Start: 06-15-2022 Patient referral to dietitian [facility] Start: 06-14-2022 [facility] Work Phone: Start: 02-17-2011 RSV High Risk: (Elderly (60+) or Population) (1 - 1-dose 75+ series) RSV High Risk: (Elderly (60+) or Population) (1 - 1-dose 75+ series) [facility] Start: 02-17-1986 Zoster Vaccines (1 of 2) Zoster Vaccines (1 of 2) [facility] Start: 02-17-1954 Diabetes mellitus screening Diabetes Screening [facility] Start: 1935 Lipid panel Lipid Panel [facility] Start: 1935 Medicare Annual Wellness Visit Medicare Annual Wellness Visit (AWV) [facility] Start: 1935 Screening for osteoporosis Bone Density Scan [facility] Bacteria identified in Blood by Culture Blood Culture [facility] Bacteria identified in Blood by Culture Blood Culture [facility] Bacteria identified in Urine by Culture Urine Culture [facility] Ova and parasites identified in Unspecified specimen by Light microscopy [facility] Ova and parasites identified in Unspecified specimen by Light microscopy [facility] Patient Education [facility] Work Phone: Patient referral [facility] Work Phone: Procedure [facility] Urine culture Urine Culture [facility] Work Phone: Urine culture [facility] Immunizations Immunization Date Immunization Notes Care Provider Rosette nuñez 06-26-2022 influenza, injectabl e, quadrivalent, preservative free Dr. Clinton Fowler Work Phone: [facility] 06-26-2022 influenza, seasonal, injectable Dr. Clinton Fowler Work Phone: [facility] 09-11-2021 tetanus toxoid, redu luis fernando diphtheria toxoid, and acellular pertussis vaccine, adsorbed [facility] 06-15-2021 Influenza virus vaccine [facility] 04-14-2021 Covid (Moderna) [facility] 09-02-2020 Covid (Moderna) [facility] 08-05-2020 Covid (Moderna) [facility] 07-14-2019 tetanus toxoid, redu luis fernando diphtheria toxoid, and acellular pertussis vaccine, adsorbed [facility] 06-14-2013 Influenza virus vaccine [facility] 07-16-2011 Pneumococcal Vaccine [facility] Work Phone: 07-16-2011 pneumococcal vaccine , unspecified formulation Dr. Clinton Fowler Work Phone: [facility] Payers Date Payer Category Payer Self-pay [id number] 2015 Medicare supplementa l policy (as second payer) [employer] MEDICARE SUPPLEMENT [id number] 2015 Private Health Insurance [id number] 2001 Medicare MEDICARE PART A AND B [id number] 2001 Medicare [id number] 1936 Unknown [id number] 1936 Unknown [id number] 1936 Unknown [id number] Unknown [id number] Unknown [id number] Unknown [id number] Unknown [id number] Unknown [id number] Unknown [id number] Unknown [id number] Social History Date Type Detail Facility Start: 02-04-2022 End: 06-07-2023 Tobacco smoking status NHIS Unknown if ever smoked [facility] Start: 12-03-2018 None [facility] Start: 07-14-2019 Spouse/ Signif icant Other [facility] Start: 07-14-2019 Non-smoker [facility] Start: 1935 Sex Assigned At Female [facility] Start: 11-25-2024 End: 02-22-2025 Tobacco smoking status NHIS Never smoked tobacco [facility] Work Phone: Start: 11-25-2024 Tobacco use and exposure Smokeless tobacco non-user [facility] Work Phone: Start: 11-25-2024 Alcoholic beverage intake Lifetime non-drinker (finding) [facility] Work Phone: Start: 11-25-2024 History of Social function [facility] Work Phone: Start: 11-25-2024 Tobacco use panel [facility] Work Phone: Start: 1935 Sex assigned at Not on file U [facility] Work Phone: Start: 11-15-2024 End: 11-25-2024 Exposure to SARS-CoV-2 (event) Not sure [facility] Goals Date Patient Goal Desired Activity /State Functional Status Date Assessment Result Facility 01-14-2023 Functional status Activity Abili ty With Assist of 1 [facility] Work Phone: 09-20-2022 Functional status Activity Abili ty With Assist of 2 [facility] Work Phone: 09-20-2022 Functional status Chair [facility] Work Phone: 06-16-2022 Functional status Ambulates;Shree r;Bathroom Privilege [facility] Work Phone: Mental Status Date Assessment Result Facility 02-22-2025 Cognitive function Level Of Cons ciousness Awake;Follows Commands [facility] Work Phone: 06-07-2023 Cognitive function Level Of Cons ciousness Awake;Disoriented [facility] Work Phone: 01-14-2023 Cognitive function Voice/Name [facility] Work Phone: 09-20-2022 Cognitive function Voice/Name [facility] Work Phone: 09-16-2022 Cognitive function Level Of Cons ciousness Awake;Lethargic;Inappropriate [facility] Work Phone: 06-16-2022 Cognitive function Voice/Name [facility] Work Phone: Clinical Notes 09-16-2022 to 02-22-2025 Note Date & Type Note Facility 02-22-2025 Radiology Diagnostic study note [facility] Imaging Services [address] [place] [address] Chest PA and Lateral MR#: [id number] Acct: [id number] Name: LIZA VELASQUEZ Rep #: [id number] : 1935 F 89 From: Huyen Noble MD PCP: Dr. Clinton Fowler DO Status: REG ER Study:Chest PA and Lateral Date of Exam: 02/22/25 Exam# [id number] Ordering Dr: Sixto Alvarez DO PROCEDURE: CHEST PA AND LATERAL 02/22/2025 REASON FOR EXAM: CHILLS TECHNIQUE: CHEST PA AND LATERAL COMPARISON: Chest radiograph 06/07/2023. FINDINGS: Hardware: None. Heart: The heart size is normal. Mediastinum: There are atherosclerotic calcifications of the thoracic aorta. Lungs: Calcified right hilar granulomas. Bibasilar atelectasis. No focal consolidation, pleural effusion or pneumothorax. Bones: Degenerative changes are identified within the thoracic spine. RAD/Chest PA and Lateral IMPRESSION: NO ACUTE FINDINGS. Reading Location: [facility] CC: Dr. Sitxo Alvarez DO; Dr. Clinton Fowler DO ~ Concessions Manager: Signed [facility] 02-22-2025 Radiology Diagnostic study note [facility] Imaging Services [address] [place] [address] Brain/Head without Contrast MR#: [id number] Acct: [id number] Name: LIZA VELASQUEZ Rep #: [id number] : 1935 F 89 From: Huyen Noble MD PCP: Dr. Clinton Fowler DO Status: REG ER Study:Brain/Head without Contrast Date of Exa m: 02/22/25 Exam# [id number] Ordering Dr: Sixto Alvarez DO EXAM: BRAIN/HEAD WITHOUT CONTRAST CLINICAL HISTORY: 89 y/o F with CONFUSION. COMPARISON: CT head 01/12/2023. TECHNIQUE: Routine CT imaging of the head without IV contrast. Additional multiplanar reformats were obtained. Dose reduction techniques were used including intermediate exposure control (AEC),iterative reconstruction technique, and/or mA and/or KV dose adjustments based on patient's size. FINDINGS: The ventricles, sulci and cisterns are prominent, suggestive of moderate-severe brain parenchymal volume loss. There is no evidence of acute intracranial hemorrhage or herniation. 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 Moderate patchy and confluent supratentorial white matter hypodensities. 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 There is no midline shift, mass effect, or extra-axial collection. The watson and white matter interfaces are otherwise maintained. The orbits, visualized paranasal sinuses and mastoids are unremarkable. No acute calvarial fracture or scalp hematoma. CT/Brain/Head without Contrast IMPRESSION: No acute intracranial finding. Reading Location: [facility] CC: Dr. Sixto Alvarez DO; Dr. Clinton Fowler DO ~ Concessions Manager: Signed [facility] 12-11-2024 Evaluation note Diagnosis Onset Date Resolution Chronic anemia chronic December 11, 2024 1:48pm Exocrine pancreatic insufficiency chronic December 11, 2024 1:48pm GI bleed resolved December 11, 2024 1:48pm Loose stools inactive December 11 1:48pm [facility] Work Phone: 1(902) 959-762405-13-2025 History of Present illness Narrative* Libertad Brody Davian, GERALD-FELICITAS - 11/25/2024 1:00 PM EDT Images from the original note were not included. CHIEF COMPLAINT: Dementia Plmd Toby hypersomnia HISTORY OF PRESENT ILLNESS: 89 year old female presented to office with spouse to establish care for dementia, plmd, toby and hypersomnia. Known to this provider, previously at [facility]- office closed. Wears pap nightly, sleeps well at night at least 8-12 hours, tolerates well per spouse. Denies snoring or gasping for air through mask. Requesting compliance report from ricki. Previously good compliance. Spouse does not note [...] the encounter. Follow up in 6 months JOSSY Abrams [1] Current Outpatient Medications on File Prior [...] Take 1 capsule (1,000 Units) by mouth. ltue-jtnpa-VDQ-ssv-zpbofdc-sfj 100 mg-100 mcg- 100 mg-100 mg capsule [...] Brother Alcohol abuse D[facility]: 1(870) 654-658405-13-2025 Instructions* Patient Instructions* JOSSY Abrams - 11/25/2024 1:00 PM EDT Continue to wear pap therapy every night Increase activity/exercise daily Follow up in 6 months documented in this [facility] Work Phone: 1(667) 206-344011-23-2023 Discharge summary Author Nikki Jacques [facility] June 08, 2023 12:30am Note Date/Time June 07, 2023 11:19pm [facility] Medical Records Department [address] [place] [address] Emergency Department Summary 06/07/23 MR#: [id number] Acct: [id number] Name: LIZA VELASQUEZ Rep #:[id number] : 1935 88 From: Nikki Jacques MD [...] that hegave her hot chocolate before bed. [facility] Medical History Alzheimer disease AMS (altered mental [...] #30 tabs 12/03/17 [Rx Last Taken 01/11/23] hakdoogc-fck-kghhw acid 0.4 mg-lycopene 300 mcg-lutein 250 mcg [...] #30 tabs 09/20/22 [Rx Last Taken 01/11/23] wpymaj-jnjxfovu-cvhmbpz 36,000-114,000-180,000 unit capsule,delay rel (Creon) See Rx [...] Medical decision making narrative: Patient placed on monitoring engineer. IV line initiated. Labwork obtained to evaluate [...] (Auto) 43.4 L Lymph % (Auto) 39.9 Hocking % (Auto) 10.5 H Eos % (Auto) [...] 80 mg PO QHS Qty: 30 0RF uiuckive-pyv-LK-lycopen-lutein 1 EACH tablet 1 ea PO BID [...] or pain) Creon 36,000-114,000- 180,000 unit capsule,delayed release(DR/EC) See [...] your Primary Care Provider. Call [facility] ([phone]) or report to the closest Emergency Room. Call 911 if necessary. 06/08/23 0030 <Electronically signed by Nikki Jacques MD> Cosigner Signature (if applicable): CC: Dr. Clinton Fowler DO ~ Signed [facility] Work Phone: 1(580) 909-346907-02-2023 Progress note Author Sixto Braswell [facility] January 14, 2023 1:35pm Note Date/Time January 14, 2023 9:08a m [facility] Medical Records Department [address] [facility] [place] [address] Progress Note - Hospitalist 01/14/23905 MR#: [id number] Acct: [id number] Name: LIZA VELASQUEZ Rep #:[id number] : 1935 87 From: Sixto Braswell DO PCP: Dr. Clinton Fowler DO Status:ADM IN Location: [place] [id number]- [id number] Reason for Visit Reason for Visit: [...] Document 01/13/23 15:16 TIRSO (Rec: 01/13/23 15:16 [facility] [id number]) Nutrition Malnutrition Evidence of Malnutrition Exists Yes [...] % (Auto) 54.5, Lymph % (Auto) 31.1, Hocking % (Auto) 9.1, Eos % (Auto) 3.6, [...] patient's , who is her power of hand woodworking sander,patient is to be DNR Comfort Care arrest. Discharge home. Charges/Coding Visit Charges Inpatient E&M: 46431 Subs Hosp L2 01/14/23 8335 <Electronically signed by Sixto Braswell DO> Cosigner Signature (if applicable): CC: ~ Signed [facility] Work Phone: 1(654) 593-114207-01-2023 Progress note Author Hung Friend [facility] January 13, 2023 8:16pm Note Date/Time January 13, 2023 8:15p [facility] Medical Records Department [address] [place] [address] Progress Note - GI 01/13/232013 MR#: [id number] Acct: [id number] Name: LIZA VELASQUEZ Rep #:[id number] : 1935 87 From: Hung Adames DO PCP: Dr. Clinton Fowler DO Status:ADM IN Location: [place] [address] Subjective Subjective Patient had another large bowel [...] 01/13/23 15:16 TIRSO (Rec: 01/13/23 15:16 AMPARO [id number]) Nutrition Malnutrition Evidence of Malnutrition Exists Yes [...] % (Auto) 47.8, Lymph % (Auto) 36.7, Hocking % (Auto) 10.2 H, Eos % (Auto) [...] to bleed. Charges/Coding Visit Charges Inpatient E&M: 61055 Subs Hosp L3 01/13/232015 <Electronically signed by Hung Friend > Cosigner Signature (if applicable): CC: ~ Signed [facility] Work Phone: 1([phone]) 370-286607-01-2023 Progress note Author Sixto Braswell [facility] January 13, 2023 11:08am Note Date/Time January 13, 2023 8:25a [facility] Medical Records Department [address] [place] [address] Progress Note - Hospitalist 01/13/23820 MR#: [id number] Acct: [id number] Name: LIZA VELASQUEZ Rep #:[id number] : 1935 87 From: Sixto Braswell DO PCP: Dr. Clinton Fowler DO Status:ADM IN Location: [place] [id number]- 1 Reason for Visit Reason for Visit: [...] % (Auto) 61.7, Lymph % (Auto) 27.4, Hocking % (Auto) 7.1, Eos % (Auto) 2.0, [...] Clarity Clear, Urine pH 5.0, Ur Specific Mingo 1.015, Urine Protein Negative, Urine Glucose (UA) [...] % (Auto) 47.8, Lymph % (Auto) 36.7, Hocking % (Auto) 10.2 H, Eos % (Auto) [...] patient's , who is her power of hand woodworking sander,patient is to be DNR Comfort Care arrest. Charges/Coding Visit Charges Inpatient E&M: 16118 Subs Hosp L2 01/13/23 1108 <Electronically signed by Sixto Braswell DO> Cosigner Signature (if applicable): CC: ~ Signed [facility] Work Phone: 1([phone]) 191-246006-30-2023 Consult note Author Hung Adames [facility] January 12, 2023 5:52pm Note Date/Time January 12, 2023 5:49 pm [facility] Medical Records Department [address] [place] [address] Consultation - GI 01/12/23 1749 MR#: [id number] Acct: [id number] Name: LIZA VELASQUEZ Rep #:[id number] : 1935 87 From: Hung Adames DO PCP: Dr. Clinton Fowler DO Status:ADM IN Location: [place] [address] HPI Consult Data Date of Consult: 01/12/23 [...] a non-smoker who lives with her . [facility] Medical History (Updated 01/12/23 @ 16:15 [...] #30 tabs 12/03/17 [Rx Last Taken 01/11/23] eszmxvey-ihe-bjgxt acid 0.4 mg-lycopene 300 mcg-lutein 250 mcg [...] #30 tabs 09/20/22 [Rx Last Taken 01/11/23] tmmcvk-opcwgkxi-gxjqgfk 36,000-114,000-180,000 unit capsule,delay rel (Creon) See Rx [...] % (Auto) 61.7, Lymph % (Auto) 27.4, Hocking % (Auto) 7.1, Eos % (Auto) 2.0, [...] Clarity Clear, Urine pH 5.0, Ur Specific Mingo 1.015, Urine Protein Negative, Urine Glucose (UA) [...] blood thinners. Charges/Coding Visit Charges Inpatient E&M: 59017 Subs Hosp L2 01/12/23 1752 <Electronically signed by Hung Adames DO> Cosigner Signature (if applicable): CC: Dr. Clinton Fowler, ~ Signed [facility] Work Phone: 1(141) 512-165306-30-2023 Discharge summary Author Isiah Winn [facility] January 12, 2023 4:48pm Note Date/Time January 12, 2023 12:2 8pm [facility] Medical Records Department [address] [place] [address] Emergency Department Summary 01/12/23 MR#: [id number] Acct: [id number] Name: LIZA VELASQUEZ Rep #:[id number] : 1935 87 From: Isiah Osuna PCP: Dr. Clinton Fowler DO Status:ADM IN Location: [place] [address] HPI HPI - GI History of Present [...] has not been transfused in the past. [facility] Medical History (Updated 01/12/23 @ 16:15 by [...] #30 tabs 12/03/17 [Rx Last Taken 01/11/23] vahwihap-bjs-gstee acid 0.4 mg-lycopene 300 mcg-lutein 250 mcg [...] #30 tabs 09/20/22 [Rx Last Taken 01/11/23] qwmxog-dpkudwxx-lhcdwmh 36,000-114,000-180,000 unit capsule,delay rel (Creon) See Rx [...] Dr. Braswell. This note was generated with Watchwith dictation software. It may contain incorrectwords, spelling, and punctuation that were not noted in checking the note beforesigning. Lab Data Attestation: I reviewed the patient's lab results. Labs: Laboratory Results - last 24 hr 06/30/23 06/30/23 06/30/23 12:00 12:45 13:57 WBC 7.9 RBC 3.34 L Hgb 10.1 L Hct 32.0 L MCV 95.8 MCH 30.2 MCHC 31.6 L RDW Std Deviation 47.6 H RDW Coeff of Marcio 13.4 Plt Count 225 MPV 11.0 Immature Gran % (Auto) 0.800 Neut % (Auto) 61.7 Lymph % (Auto) 27.4 Hocking % (Auto) 7.1 Eos % (Auto) 2.0 [...] Clarity Clear Urine pH 5.0 Ur Specific Mingo 1.015 Urine Protein Negative Urine Glucose (UA) [...] disease, Weakness Disposition Disposition: Acute Care [facility] What to do if you have Problems For any increased pain, shortness of breath, bleeding, nausea or vomiting, chestpain, or any unexpected problems, contact your Primary Care Provider. Call [facility] ([phone]) or report to the closest Emergency Room. Call 911 if necessary. 01/12/23 1648 <Electronically signed by Isiah Osuna> Cosigner Signature (if applicable): CC: Dr. Clinton Fowler DO ~ Signed [facility] Work Phone: [phone]) 612-591306-30-2023 History and physical note Author Sixto Braswell [facility] January 12, 2023 2:24pm Note Date/Time January 12, 2023 2:24 pm [facility] Medical Records Department [address] [place] [address] H&P Exam - Hospitalist 01/12/23 1419 MR#: [id number] Acct: [id number] Name: LIZA VELASQUEZ Rep #:[id number] : 1935 87 From: Sixto Braswell DO PCP: Dr. Clinton Fowler DO Status:ADM IN Location: [facility] [id number]- 1 HPI - General General Date of [...] typical of her baseline accordingto her . [facility] Medical History Alzheimer disease AMS (altered [...] #30 tabs 12/03/17 [Rx Last Taken 01/11/23] etvlupth-hti-jtbxm acid 0.4 mg-lycopene 300 mcg-lutein 250 mcg [...] #30 tabs 09/20/22 [Rx Last Taken 01/11/23] yosqgy-yuwbdwko-wsnpxgl 36,000-114,000-180,000 unit capsule,delay rel (Creon) See Rx [...] % (Auto) 61.7, Lymph % (Auto) 27.4, Hocking % (Auto) 7.1, Eos % (Auto) 2.0, [...] Clarity Clear, Urine pH 5.0, Ur Specific Mingo 1.015, Urine Protein Negative, Urine Glucose (UA) [...] time. GI on consult Hold aspirin and dxnpkndunx-cglt-wfu for now. Clear liquid diet (2) Delirium: [...] patient's , who is her power of hand woodworking sander,patient is to be DNR Comfort Care arrest. Charges/Coding Visit Charges Inpatient E&M: 97414 Init Hosp L3 01/12/23 1424 <Electronically signed by Sixto Braswell DO> Cosigner Signature (if applicable): CC: Dr. Sixto Braswell DO; Dr. Clinton Fowler DO~ Signed [facility] Work Phone: [phone]) 769-943603-07-[address] Verma [facility] September 19, 2022 5:39pm Note Date/Time September 18, 2022 1:37 pm [facility] Medical Records Department [address] [place] [address] Progress Note 09/18/22 1336 MR#: [id number] Acct: [id number] Name: LIZA VELASQUEZ Rep #:[id number] : 1935 87 From: Isa Verma MD PCP: Dr. Clinton Janeth, DO Status:ADM IN Location: [facility] [id number]- 1 Subjective Subjective Patient seen and examined. She [...] % (Auto) 57.8, Lymph % (Auto) 28.2, Hocking % (Auto) 9.7, Eos % (Auto) 2.9, [...] cerebral hemispheres are unchanged. Electronically Signed: Alex Rushing MD at 13:14 EST , Rhythm Strip [...] prophylaxis: Lovenox Charges/Coding Visit Charges Inpatient E&M: 16863 Subs Hosp L2 09/19/22 4893 <Electronically signed by Isa Verma MD> Isa Verma MD Cosigner Signature (if applicable): CC: ~ Signed [facility] Work Phone: 1(701) 311-488403-07-[address] [facility] September 19, 2022 2:34pm Note Date/Time September 19, 2022 2:34 pm [facility] Medical Records Department [address] [place] [address] Progress Note 09/19/22 1426 MR#: [id number] Acct: [id number] Name: LIZA VELASQUEZ Rep #:[id number] : 1935 87 From: Isa Verma MD PCP: Dr. Clinton Fowler, DO Status:ADM IN Location: [place] [address] Subjective Subjective Patient seen and examined. She [...] % (Auto) 59.7, Lymph % (Auto) 25.5, Hocking% (Auto) 10.5 H, Eos % (Auto) 2.9, [...] doingwith therapy. Charges/Coding Visit Charges Inpatient E&M: 65650 Subs Hosp L2 09/19/22 1434 <Electronically signed by Isa Verma MD> Isa Verma MD Cosigner Signature (if applicable): CC: ~ Signed [facility] Work Phone: 1([phone]) 691-704803-06-[address] Verma [facility] September 18, 2022 1:35pm Note Date/Time September 18, 2022 1:36 pm [facility] Medical Records Department [address] [place] [address] Telemedicine Confirmation Receipt 09/18/22 MR#: [id number] Acct: [id number] Name: LIZA VELASQUEZ Rep #:[id number] : 1935 87 From: Isa Verma MD PCP: Dr. Clinton Fowler, DO Status:ADM IN [facility] has confirmed receipt of a request for visit. This document confirms receipt of the order initiating the consult. To find the results of the consultation, please view the patient's reports for the scanned Telemed Consult. [facility] Work Phone: 1(972) 438-466303-05-[address] Chawla [facility] September 17, 2022 4:41pm Note Date/Time September 17, 2022 7:15 am [facility] Medical Records Department [address] [place] [address] Progress Note - Hospitalist 09/17/22 0707 MR#: [id number] Acct: [id number] Name: LIZA VELASQUEZ Rep #:[id number] : 1935 87 From: Maria D Chawla MD PCP: Dr. Clinton Fowler, DO Status:ADM IN Location: [place] 702262-1 Reason for Visit Reason for Visit: Diagnoses [...] % (Auto) 57.8, Lymph % (Auto) 30.3, Hocking % (Auto) 8.6, Eos % (Auto) 1.9, [...] Clarity Clear, Urine pH 5.0, Ur Specific Mingo 1.015, Urine Protein Negative, Urine Glucose (UA) [...] No overt focal neurological deficits, handgrip equal, pwsrde-es-jwxp bilaterally without difficulty, able to lift and [...] culture. 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 Paredes [facility] September 17, 2022 5:58am Note Date/Time September 17, 2022 5:58 am [facility] Medical Records Department [address] [place] [address] [place] [address] Progress Note 09/17/22 0555 MR#: [id number] Acct: [id number] Name: LIZA VELASQUEZ Rep #:[id number] : 1935 87 From: Foreign Paredes MD PCP: Dr. Clinton Fowler, DO Status:ADM [facility] Note Preliminary blood culture; one with gram positive rods in chains. Patient has no fever or leukocytosis. Likely contaminant. 09/17/22 0558 <Electronically signed by Foreign Paredes MD> Foreign Paredes MD Cosigner Signature (if applicable): CC: ~ Signed [facility] Work Phone: [phone]) 680-288403-04-2023 History and physical note Author Dr. Buckner [facility] September 16, 2022 8:11pm Note Date/Time September 16, 2022 6:43 pm [facility] Medical Records Department [address] [place] [address] H&P Exam - Hospitalist 09/16/22 1839 MR#: [id number] Acct: [id number] Name: LIZA VELASQUEZ Rep #:[id number] : 1935 87 From: Estrella Buckner DO PCP: Dr. Clinton Fowler, DO Status:ADM IN [facility] HPI - General General Date of Admission: 09/16/22 Date of Service: 09/16/22 Chief Complaint: MS Changes HPI Narrative LIZA VELASQUEZ, is a 87 F who presented to the emergency department at [facility] with her on 09/16/2022 after she [...] with no injuries. Both falls happened within q72-bmtw period. She ambulates in the home by [...] this prohibited the from taking her home. [facility] Medical History Alzheimer disease AMS (altered [...] #30 tabs 12/03/17 [Rx Last Taken 09/15/22] kqgoswdd-vuo-kfznr acid 0.4 mg-lycopene 300 mcg-lutein 250 mcg [...] PO QHS 06/14/22 [History Last Taken 09/15/22] ivombh-dfrxfmxi-nolzvzv 36,000-114,000-180,000 unit capsule,delay rel (Creon) See Rx [...] % (Auto) 57.8, Lymph % (Auto) 30.3, Hocking % (Auto) 8.6, Eos % (Auto) 1.9, [...] Clarity Clear, Urine pH 5.0, Ur Specific Mingo 1.015, Urine Protein Negative, Urine Glucose (UA) [...] on admission Charges/Coding Visit Charges Inpatient E&M: 75685 Init Hosp L3 09/16/222010 <Electronically signed by Estrella Buckner DO> Cosigner Signature (if applicable): CC: Dr. Estrella Buckner DO; Dr. Clinton Fowler DO~ Signed [facility] Work Phone: [phone]) 390-442703-04-[address] Thomas [facility] September 16, 2022 6:52pm Note Date/Time September 16, 2022 3:34 pm [facility] Medical Records Department [address] [place] [address] Emergency Department Summary 09/16/22 MR#: [id number] Acct: [id number] Name: LIZA VELASQUEZ Rep #:[id number] : 1935 87 From: Moncho Thomas MD [...] #30 tabs 12/03/17 [Rx Last Taken 09/15/22] uroleuhp-hth-dixfj acid 0.4 mg-lycopene 300 mcg-lutein 250 mcg [...] PO QHS 06/14/22 [History Last Taken 09/15/22] eyshhu-nwljncdf-mnwgonh 36,000-114,000-180,000 unit capsule,delay rel (Creon) See Rx [...] % (Auto) 57.8 Lymph % (Auto) 30.3 Hocking % (Auto) 8.6 Eos % (Auto) 1.9 [...] Color Urine Clarity Urine pH Ur Specific Mingo Urine Protein Urine Glucose (UA) Urine Ketones [...] (Auto) Neut % (Auto) Lymph % (Auto) Hocking % (Auto) Eos % (Auto) Baso % [...] Clarity Clear Urine pH 5.0 Ur Specific Mingo 1.015 Urine Protein Negative Urine Glucose (UA) [...] Signed: Nathaniel Lebron MD at 16:44 EST Reading Location ID and State: [facility] / [place] Tel , Service support , Chest x-ray, portable, single view shows no acute abnormality. No infiltrate. No effusion. Normal cardiac silhouette. Reviewed by myself. Rhythm Strip Rhythm Strip: Sinus Rhythm Rate: 73 Ectopy: None EKG Initial EKG: Attestation: I personally reviewed and interpreted this EKG as follows: Interpretation: Sinus Rhythm and No Acute Injury Pattern Comments: Normal sinus rhythm rate of 73 no acute signs of IN or ischemia. No significant change from a [...] 30 0RF Hold Instructions: Resume on 09/16/21. zdvwvocx-gtb-QC-lycopen-lutein 1 EACH tablet 1 ea PO BID [...] PO QHS Creon 36,000-114,000- 180,000 unit capsule,delayed release(/EC) See Rx Instructions PO .COMPLEX Qty: 320 0RF Rx Instructions: take 1-2 with snacks and 2-3 with meals Primary Care Provider: Clinton Fowler Referrals: Clinton Fowler DO [Primary Care Provider] - Disposition Disposition: Acute Care [facility] What to do if you have Problems For any increased pain, shortness of breath, bleeding, nausea or vomiting, chestpain, or any unexpected problems, contact your Primary Care Provider. Call [facility] ([phone]) or report to the closest Emergency Room. Call 911 if necessary. 09/16/221851 <Electronically signed by Moncho Thomas MD> Cosigner Signature (if applicable): CC: Dr. Clinton Fowler DO ~ Signed [facility] Work Phone: 1([phone]) 543-213903-04-[address] Thomas [facility] September 16, 2022 6:52pm Note Date/Time September 16, 2022 3:34 pm [facility] Medical Records Department [address] [place] [address] Emergency Department Summary 09/16/22 MR#: [id number] Acct: [id number] Name: LIZA VELASQUEZ Rep #:[id number] : 1935 87 From: Moncho Thomas MD [...] Prior similar symptoms: No Recent Illness/Hospitalization: No [facility] Medical History Alzheimer disease AMS (altered mental [...] #30 tabs 12/03/17 [Rx Last Taken 09/15/22] twzobujc-uwm-aecld acid 0.4 mg-lycopene 300 mcg-lutein 250 mcg [...] PO QHS 06/14/22 [History Last Taken 09/15/22] zleuet-rhtbsaqr-stamlar 36,000-114,000-180,000 unit capsule,delay rel (Creon) See Rx [...] % (Auto) 57.8 Lymph % (Auto) 30.3 [place] % (Auto) 8.6 Eos % (Auto) 1.9 [...] Color Urine Clarity Urine pH Ur Specific Mingo Urine Protein Urine Glucose (UA) Urine Ketones [...] (Auto) Neut % (Auto) Lymph % (Auto) [place] % (Auto) Eos % (Auto) Baso % [...] Clarity Clear Urine pH 5.0 Ur Specific Mingo 1.015 Urine Protein Negative Urine Glucose (UA) [...] rate of 73 no acute signs of IN or ischemia. No significant change from a [...] 30 0RF Hold Instructions: Resume on 09/16/21. qyjvzuvn-dlh-YQ-lycopen-lutein 1 EACH tablet 1 ea PO BID [...] Provider] - Disposition Disposition: Acute Care Hospital [facility] What to do if you have Problems For any increased pain, shortness of breath, bleeding, nausea or vomiting, chestpain, or any unexpected problems, contact your Primary Care Provider. Call [facility] ([phone]) or report to the closest Emergency Room. Call 911 if necessary. 09/16/221851 <Electronically signed by Moncho Thomas MD> Cosigner Signature (if applicable): CC: Dr. Clinton Fowler DO ~ Signed [facility] Work Phone: Discharge summary Author Dr. Verma [facility] September 20, 2022 4:56pm Note Date/Time September 20, 2022 4:56 pm [facility] Medical Records Department [address] [place] [id number] Discharge Summary 09/20/22 1643 MR#: [id number] Acct: [id number] Name: LIZA VELASQUEZ Rep #:[id number] : 1935 87 From: Isa Verma MD PCP: Dr. Clinton Fowler DO Status:ADM [facility] Prov[facility] Date of Admission: 09/16/22 Date of [...] 75 mg PO DAILY #30 tabs 12/03/17 mevbmddf-vib-arrlf acid 0.4 mg-lycopene 300 mcg-lutein 250 mcg [...] mg tablet 10 mg PO QHS 06/14/22 rfyzgt-tnfampab-xzenigp 36,000-114,000-180,000 unit capsule,delay rel (Creon) See Rx [...] Neut % (Auto) 63.8, Lymph % (Auto) 23.9,[place] % (Auto) 9.7, Eos % (Auto) 1.5, [...] 30 0RF Hold Instructions: Resume on 09/16/21. ndaplahq-mnn-FH-lycopen-lutein 1 EACH tablet 1 ea PO BID [...] Health Service Charges/Coding Visit Charges Inpatient E&M: 77037 Disch Hosp >30min 09/20/221655 <Electronically signed by Isa Verma MD> Cosigner Signature (if applicable): CC: Dr. Clinton Fowler DO; Dr. Isa Verma MD~ Signed [facility] Work Phone: Discharge summary Author Dr. Verma [facility] September 20, 2022 4:58pm Note Date/Time September 20, 2022 4:58 pm [facility] Medical Records Department [address] [place] [address] Instructions for Home/Discharge Instructions 09/20/221656 MR#: [id number] Acct: [id number] Name: LIZA VELASQUEZ Rep #:[id number] : 1935 87 From: Isa Verma MD PCP: Dr. Clinton Janeth, DO Status:ADM IN Discharge Instructions Diet Discharge [...] 30 0RF Hold Instructions: Resume on 09/16/21. ihwxgdle-trs-OB-lycopen-lutein 1 EACH tablet 1 ea PO BID [...] can be placed): Home Health Service 09/20/22 3935<Electronically signed by Isa Verma MD>Isa Verma MD CC: Dr. Estrella Buckner DO; Dr. Clinton Fowler DO; Dr. Maria D Chawla MD ~ Signed [facility] Work Phone: Discharge summary Author Sixto Braswell [facility] January 14, 2023 1:41pm Note Date/Time January 14, 2023 1:38p [facility] Medical Records Department [address] [place] [address] Instructions for Home/Discharge Instructions 01/14/23 1335 MR#: [id number] Acct: [id number] Name: LIZA VELASQUEZ Rep #:[id number] : 1935 87 From: Sixto Braswell DO [...] 80 mg PO QHS Qty: 30 0RF zobyfnpl-wxw-TI-lycopen-lutein 1 EACH tablet 1 ea PO BID [...] BID UD Creon 36,000-114,000- 180,000 unit capsule,delayed release(/EC) See [...] CC: Dr. Clinton Fowler DO ~ Signed [facility] Work Phone: Discharge summary Author [facility]o [facility] January 14, 2023 1:43pm Note Date/Time January 14, 2023 1:43p m [facility] Medical Records Department [address] [place] [address] Discharge Summary 01/14/23 1341 MR#: [id number] Acct: [id number] Name: LIZA VEALSQUEZ Rep #:[id number] : 1935 87 From: Sixto Braswell DO PCP: Dr. Clinton Fowler DO Status:ADM IN Location: [place] [id number] Providers Date of Admission: 01/12/23 Primary Care Physician: Dr. 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 [...] 80 mg PO QHS #30 tabs 12/03/17 vdpytfpr-bvw-nevxy acid 0.4 mg-lycopene 300 mcg-lutein 250 mcg [...] 81 mg PO BREAKFAST #30 tabs 09/20/22 hzakab-vxuqaltb-zachyvs 36,000-114,000-180,000 unit capsule,delay rel (Creon) See Rx [...] Freq: Status: Active Protocol: Document 01/13/23 15:16 AMPAROUsha (Rec: 01/13/23 15:16 [facility] [id number]) Nutrition Malnutrition Evidence of Malnutrition Exists Yes [...] % (Auto) 54.5, Lymph % (Auto) 31.1, [place] % (Auto) 9.1, Eos % (Auto) 3.6, [...] 80 mg PO QHS Qty: 30 0RF oulalnox-fjm-XE-lycopen-lutein 1 EACH tablet 1 ea PO BID [...] Self Care Charges/Coding Visit Charges Inpatient E&M: 52885 Disch Hosp >30min 01/14/23 1343 <Electronically signed by Sixto Braswell DO> Cosigner Signature (if applicable): CC: Dr. Sixto Braswell DO; Dr. Clinton Fowler DO~ Signed [facility] Work Phone: evaluation noteNo assessment information available [facility] Work Phone: evaluation note* Diagnosis Onset Date Resolution Status AMS (altered mental status) acute Hypoglycemia acute Stroke-like symptoms acute Dementia chronic DM (diabetes mellitus), type 2 chronic [facility] Work Phone: Evaluation note* Diagnosis Onset Date Resolution Status Hypoglycemia resolved Stroke-like symptoms resolve d Loose stools chronic [facility] Work Phone: Evaluation note* Diagnosis Onset Date Resolution Status Hypoglycemia resolved Stroke-like symptoms resolve d Loose stools chronic [place] acute Hyperglycemia acute Mental status alteration acu te [facility] Work Phone: Evaluation note* Diagnosis Onset Date Resolution Status Hypoglycemia resolved Stroke-like symptoms resolve d Loose stools chronic [place] acute Hyperglycemia acute Mental status alteration acu te CVA (cerebral vascular accident) chronic [facility] Work Phone: Evaluation note* Diagnosis Onset Date Resolution Status Loose stools chronic Hyperglycemia resolved [facility] Work Phone: Evaluation note* Diagnosis Onset Date Resolution Status CVA (cerebral vascular accident) acute Hyperglycemia resolved Exocrine pancreatic insufficiency chronic Acute blood loss anemia acut e Alzheimer disease acute Anemia acute Bright red rectal bleeding a cute CVA (cerebral vascular accident) acute Delirium acute GI bleed acute Weakness acute Exocrine pancreatic insufficiency chronic [facility] Work Phone: Evaluation note* Diagnosis Onset Date Resolution Status Weakness acute Acute blood loss anemia reso lved Bright red rectal bleeding r esolved Delirium resolved GI bleed resolved [facility] Work Phone: Evaluation note* Diagnosis Onset Date Resolution Status Cough acute Viral upper respiratory illness acute Chronic anemia chronic Exocrine pancreatic insufficiency chronic GI bleed resolved [facility] Work Phone: Evaluation note* Diagnosis TOBY (obstructive sleep apnea)- Primary Obstructive sleep apnea (adult) (pediatric) PLMD (periodic limb movement disorder) Periodic limb movement disorder Dementia without behavioral disturbance (Multi) Hypersomnia Hypersomnia, unspecified documented in this encounter [facility] Work Phone: History and physical note Author Dr. Buckner [facility] September 16, 2022 8:11pm Note Date/Time September 16, 2022 6:43 pm [facility] Medical Records Department [address] [place] [address] H&P Exam - Hospitalist 09/16/22 1839 MR#: [id number] Acct: [id number] Name: LIZA VELASQUEZ Rep #:[id number] : 1935 87 From: Estrella Buckner DO PCP: Dr. Clinton Fowler DO Status:ADM IN [place] [facility] [id number] HPI - General General Date of Admission: 09/16/22 Date of Service: 09/16/22 Chief Complaint: MS Changes HPI Narrative LIZA VELASQUEZ, is a 87 F who presented to the emergency department at [facility] with her on 09/16/2022 after she [...] with no injuries. Both falls happened within h91-smog period. She ambulates in the home by [...] this prohibited the from taking her home. [facility] Medical History Alzheimer disease AMS (altered [...] #30 tabs 12/03/17 [Rx Last Taken 09/15/22] surzutwf-idt-hciek acid 0.4 mg-lycopene 300 mcg-lutein 250 mcg [...] PO QHS 06/14/22 [History Last Taken 09/15/22] oaenxs-flttnjnh-tzuqqbx 36,000-114,000-180,000 unit capsule,delay rel (Creon) See Rx [...] % (Auto) 57.8, Lymph % (Auto) 30.3, [place] % (Auto) 8.6, Eos % (Auto) 1.9, [...] Clarity Clear, Urine pH 5.0, Ur Specific Mingo 1.015, Urine Protein Negative, Urine Glucose (UA) [...] on admission Charges/Coding Visit Charges Inpatient E&M: 35758 Init Hosp L3 09/16/222010 <Electronically signed by Estrella Buckner DO> Cosigner Signature (if applicable): CC: Dr. Estrella Buckner, ; Dr. Clinton Fowler, ~ Signed [facility] Work Phone: Reason for referral (narrative)No reason for [facility] Work Phone: Chief Complaint and Reason for Visit Chief Complaint Admit Date 6 Month f/u December 11, 2024 1:48p m GENERALIZED WEAKNESS February 22, 2025 2 :39pm Reason for Visit Admit Date Chronic anemia December 11, 2024 1:48p m Exocrine pancreatic insufficiency December 112024 1:48pm GI bleed December 11, 2024 1:48p m Loose stools December 11, 2024 1:48p m Chief Complaint FALL Chief Complaint STROKE LIKE [...] Month f/u December 11, 2024 1:48p m Family History No Family History Records Found Relationship Condition Age at Onset Recorded Date/T marshall mother Alzheimer's disease Unknown brother Alzheimer's disease Unknown aunt Alzheimer's disease Unknown father Cardiac disease Unknown Advance Directives No Advanced Directives Records Found Advance Directive Response Recorded Date/ Time Advance Directives No August 9:15pm Living Will No February 04, 2022 3:57pm Power of It Network Architect No February 04 3:57pm Advance Directive Response Recorded Date/ Time Advance Directives No August 8:15pm Living Will No June 15 1:18am Power of It Network Architect No June 15, 2022 1:18am Advance Directive Response Recorded Date/ Time Advance Directives No August 8:15pm Living Will No September 16, 2022 3:29pm Power of It Network Architect No September 16 3:29pm Advance Directive Response Recorded Date/ Time Advance Directives No August 8:15pm Living Will No September 16, 2022 8:19pm Power of It Network Architect No September 16 8:19pm Advance Directive Response Recorded Date/ Time Advance Directives No August 9:15pm Living Will No September 16, 2022 9:19pm Power of It Network Architect No September 16 9:19pm Advance Directive Response Recorded Date/ Time Advance Directives No August 9:15pm Living Will No January 12, 2023 4:07pm Power of It Network Architect No January 12 4:07pm Advance Directive Response Recorded Date/ Time Advance Directives No August 8:15pm Living Will No June 07, 2 023 11:53pm Power of It Network Architect No June 07, 2023 11:53pm Advance Directive Response Recorded Date/ Time Advance Directives No August 9:15pm Living Will No June 08, 2 023 12:53am Power of It Network Architect No June 08, 2023 12:53am Advance Directive Response Recorded Date/ Time Advance Directives No August 9:15pm Advance Directive Response Recorded Date/ Time Do you have a Healthcare Power of It Network Architect? No February 22, 2025 2:45pm Advance Directives No August 9:15pm Summary Purpose [...] , DO Primary Care Provider Active Dr. Maura Lauren , DO Emergency Provider Active Dr. Foreign Paredes MD Admit Provider, Other Provide r Active Dr. Isa Verma MD Attending Provider, Other Prov ider Active Team Status: Inactive Member Role Status Dates Dr. Clinton Fowler , DO Primary Care Provider Active Dr. Maura [...] Active Dr. Estrella Buckner DO Admit Provider, Attending Provide r Active Team Status: Active Member Role Status Dates Dr. Clinton Fowler DO Primary Care Provider Active Dr. Moncho Thomas MD Emergency Provider Active Dr. Estrella Buckner , DO Admit Provider, Other Provider Ac tive Dr. Foreign Paredes MD Attending Provider Active Team Status: Active Member Role Status Dates Dr. Clinton Fowler DO Primary Care Provider Active Dr. Gera Corbett MD Attending Provider Active Team Status: Active Member Role Status Dates Dr. Clinton Fowelr DO Primary Care Provider Active Dr. Moncho Thomas MD Emergency Provider Active Dr. Estrella Buckner DO Admit Provider, Other Provider Ac tive Dr. Isa Verma MD Attending Provider, Other Prov ider Active Dr. Maria D Chawla MD Other Provider Active Team Status: Inactive Member Role Status Dates Dr. Clinton Fowler DO Primary Care Provider Active Dr. Moncho Thomas MD Emergency Provider Active Dr. Estrella Buckner , DO Admit Provider, Other Provider Ac tive Dr. Isa Verma MD Attending Provider Active Dr. Maria D Chawla MD Other Provider Active Team Status: Active Member Role Status Dates Dr. Clinton Fowler DO Primary Care Provider Active Dr. Moncho [...] Primary Care Provider Active Dr. Isiah Winn DO Emergency Provider Active Dr. Sixto Braswell [...] Provider, Referrin g Provider Active Inessa Hall DECISION UNIT RN, DECISION UNIT RN-C Attending Provider Active Team Status: Inactive Member [...] Primary Care Provider, Attendin g Provider Active Veneer Joiner Relationship Specialty Start Date End Date Clinton Fowler DO [address] [place] [id number] PCP - General Family Medicine 11/25/24 Team Status: Inactive Member Role Status Dates Dr. Clinton Fowler DO Primary Care Provider Active Start: December 11, 2024 End: December 11, 2024 Dr. Clinton Fowler DO Referring Provider Active Start: December 11, 2024 End: December 11, 2024 Dr. Hung Adames DO Attending Provider Active Start: December 11, 2024 End: December 11, 2024 Team Status: Inactive Member Role Status Dates Dr. Clinton Fowler DO Primary Care Provider Active Start: January 01, 2025 End: January 01, 2025 Dr. Clinton Fowler DO Attending Provider Active Start: January 01, 2025 End: January 01, 2025 Team Status: Active Member Role/Relationship Status Dates Dr. Clinton Fowler DO Primary Care Provider Active Team Status: Inactive Member Role/Relationship Status Dates Dr. Clinton Fowler DO Primary Care Provider Active Start: December 11, 2024 End: December 11, 2024 Dr. Clinton Fowler DO Referring Provider Active Start: December 11, 2024 End: December 11, 2024 Dr. Hung Adames DO Attending Provider Active Start: December 11, 2024 End: December 11, 2024 Team Status: Inactive Member Role/Relationship Status Dates Dr. Clinton Fowler DO Primary Care Provider Active Start: January 01, 2025 End: January 01, 2025 Dr. Clinton Fowler DO Attending Provider Active Start: January 01, 2025 End: January 01, 2025 Team Status: Inactive Member Role/Relationship Status Dates Dr. Clinton Fowler DO Primary Care Provider Active Start: February 22, 2025 End: February 22, 2025 Dr. Sixto Alvarez DO Referring Provider Active Start: February 22, 2025 End: February 22, 2025 Dr. Sixto Alvarez DO Emergency Provider Active Start: February 22, 2025 End: February 22, 2025 INFORMATION SOURCE (unrecogn ized section and content) DATE CREATED AUTHOR 01/28/2024 [facility] DATE CREATED AUTHOR AUTHOR'S ORGANIZ ATION 02/20/2025 [facility] DATE CREATED AUTHOR AUTHOR'S ORGANIZ ATION 02/27/2025 [facility] Reason for Visit (unrecogniz ed section [...] BE BASED ON THE PRIMARY CLINICAL RECORDS. [facility] [employer] [facility]. provides no warranty or guarantee of the accuracy or completeness of information in this document.
[2025-03-30 02:37] LABS: AST(SGOT) 22 U/L (<=31); Alanine Aminotransfer ALT/SGPT 18 U/L (<=34); Albumin, Serum 3.6 g/dL (3.4-4.8); Alkaline Phosphatase 69 U/L (35-104); Anion Gap 8 (5-15); BUN 22 mg/dL (4-19); BUN/Creat Ratio 20.0 RATIO (10-20); Bilirubin, Direct 0.13 mg/dL (0.00-0.30); Calcium,Total 9.4 mg/dL (7.6-11.0); Carbon Dioxide 25.9 mmol/L (21.0-32.0); Chloride 106 mmol/L (98-108); Estimated Creatinine Clearance 32.99 ml/min (50-250); Globulin 2.6 g/dL (2.2-4.2); Glucose 131 mg/dL (70-99); Potassium 4.4 mmol/L (3.3-5.1)
[2025-03-30 02:41] VITALS: BP 184/77; PULSE 63; RESP 16; O2SAT 97
[2025-03-30 03:00] VITALS: BP 166/81; PULSE 66; RESP 16; O2SAT 97
--- NOTE | 2025-03-30 03:22 | EDS_ITS ---
HPI History of Present Illness Chief Complaint: Mental Status Change Informant: spouse/S.O. and EMS Limited: dementia Narrative Narrative: Patient is an 89-year-old female with past medical history of dementia hypertension restless leg syndrome and type 2 diabetes. states that her baseline status is typically alert and oriented x 0. He states that she sleeps frequently. He reports that she went and took a nap this evening which is not abnormal for her. However he states that she was sleeping longer than usual and he tried to wake her up. He states that he was saying her name and gently touching her or rocking her to see if she would wake. He states that when he did this the first time there was no improvement/the patient did not wake up. He states he did not think much of this as he felt he may have just been extra tired and therefore he waited a little longer and when he tried again and there was still no waking this concerned him and therefore he called 911. EMS states when they arrived the patient had a depressed mental status but was breathing normally and otherwise had stable vitals. The reports the last time she was like that she had a urinary tract infection which is his concern The patient cannot offer any history based on her dementia status [facility] Medical History GERD (gastroesophageal reflux disease) TIA (transient ischemic attack) GI bleed Alzheimer disease Exocrine pancreatic insufficiency Falls Mental status alteration Loose stools AMS (altered mental status) History of Sjogren's disease RLS (restless legs syndrome) Varicose veins of leg with edema Bowel incontinence Chronic diarrhea Anemia due to stage 3 chronic kidney disease Noninfective gastroenteritis and colitis, unspecified Hearing loss, left Hearing loss, right Non-smoker CPAP (continuous positive airway pressure) dependence History of stroke Type 2 diabetes mellitus without complications Arthritis Dementia CVA (cerebral vascular accident) Nausea and vomiting in adult DM (diabetes mellitus), type 2 Home Medications ?Medication ?Instructions ?Recorded ?Last Taken ?Type omeprazole 40 mg capsule,delayed 40 mg PO DAILY GERD 0 01/06/14 01/11/23 History release cholecalciferol (vitamin D3) 25 1,000 unit PO DAILY messer pplement 08/28/16 01/11/23 History mcg (1,000 unit) capsule donepezil 5 mg tablet 10 mg PO QHS memory 08/28/16 01/11/23 History metformin 500 mg tablet 500 mg PO DAILY blood sugar 08/28/16 01/11/23 History cinnamon bark 500 mg capsule 1,000 mg PO DAILY supplem ent 11/30/17 01/11/23 History atorvastatin 80 mg tablet 80 mg PO QHS cholesterol #30 tabs 12/03/17 01/11/23 Rx wninjggv-qwt-kteng acid 0.4 1 ea PO BID supplement 01/11/23 History mg-lycopene 300 mcg-lutein 250 mcg tablet memantine 10 mg tablet 10 mg PO BID mental health 0 09/11/21 01/11/23 History ramipril 5 mg capsule 5 mg PO DAILY blood pressure 01/11/22 01/11/23 History ropinirole 0.25 mg tablet 0.5 mg PO QHS restless legs 01/11/22 01/11/23 History Held on 06/07/23. Instructions: unsure if she still takes modafinil 100 mg tablet 200 mg PO DAILY sleepiness 0 09/16/22 01/11/23 History aspirin 81 mg chewable tablet 81 mg PO BREAKFAST #30 t abs 09/20/22 01/11/23 Rx glipizide 5 mg tablet 2.5 mg PO BID DM 01/12/23 History acetaminophen 500 mg tablet 500 mg PO Q4H PRN fever or pain 06/07/23 Unknown History (Tylenol Extra Strength) adjnwo-tryantrk-boclspn 3 cap PO .aqc #300 caps 04/09 Unknown Rx 36,000-114,000-180,000 unit capsule,delay rel (Creon) nitrofurantoin 100 mg PO Q12 #10 CAPSULES 0 02/22/25 Unknown Rx monohydrate/macrocrystals 100 mg capsule nitrofurantoin 100 mg PO BID 7 days #14 cap s 03/30/25 Unknown Rx monohydrate/macrocrystals 100 mg capsule (Macrobid) Allergy/AdvReac Type Severity Reaction Status Date / Time pollen extracts Allergy Intermediate PT UNSURE Verified 03/30/25 01:41 OF REACTION Family History Mother Alzheimer disease Brother Alzheimer disease Aunt Alzheimer disease Father Heart disease Surgical History H/O lumpectomy H/O: hysterectomy History of tonsillectomy Social History household members: spouse Smoking Status: Never smoker alcohol intake: never substance use type: does not use ROS ROS ED ROS Narrative Unable to obtain a review of systems based on patient's history of dementia Review of Systems ROS Unobtainable: due to mental status EXAM Physical Exam Const Vital Signs: 03/30/25 01:42 03/30/25 02:41 03/30/25 03:00 Temperature 98.0 F Temperature Source Oral Pulse Rate 64 63 66 Respiratory Rate 18 16 16 Blood Pressure 167/63 H 184/77 H 166/81 H Blood Pressure Mean 97 112 109 Pulse Ox 100 97 97 Oxygen Delivery Method Room Air Room Air 03/30/25 03:44 Temperature 98.1 F Temperature Source Pulse Rate 77 Respiratory Rate 16 Blood Pressure 169/79 H Blood Pressure Mean 109 Pulse Ox 98 Oxygen Delivery Method Positive well nourished and well developed General Appearance ED: well developed; Negative for pallor HEENT HEENT Narrative: Normocephalic atraumatic No tongue or cheek biting to suggest seizure activity No tongue or lip swelling no oral lesions no airway edema or compromise; no secondary findings in the posterior pharynx to suggest infection Eyes PERRL and EOMs intact bilaterally General Eye ED: Negative for scleral icterus Neck supple Neck Narrative: No nuchal rigidity noted Resp normal respiratory effort and clear to auscultation bilaterally Resp Narrative: Breath sounds are diminished throughout but overall clear to auscultation without signs of respiratory distress Cardio regular rate and regular rhythm GI normal to inspection, nondistended, normoactive bowel sounds, non-tender, non- distended and no masses GI Narrative: No voluntary guarding or rigidity or pulsatile mass Auscultation: normoactive bowel sounds Palpation: soft Extremity normal to inspection Extremity Narrative: No signs of long bone injury such as bony deformity or joint effusion Neuro Neuro Narrative: Patient is awake and alert and at baseline mental status in the ER There is no obvious focal neurologic deficit Psych Psych Narrative: Patient is at her baseline mental status Skin no rashes or lesions noted and no wounds General Skin Exam: Negative for jaundice or pallor MDM MDM MDM Narrative Medical decision making narrative: Patient arrived to the ER hypertensive but has a past medical history of this. Has been reported she simply would not wake when he tried to arouse her and he denied any seizure-like activity which correlates with the fact there is no tongue or cheek biting. With concern for UTI versus systemic infection such as sepsis versus spontaneous subarachnoid or subdural hemorrhage I did elect to perform a head CT as well as urine sample and basic labs. Head CT revealed chronic findings without acute ischemic or hemorrhagic changes. Lab work revea led no sign of leukocytosis or left shift or acute kidney injury or clinically significant electrolyte abnormality. Urine sample did show changes consistent with infection. Based on her recurrent UTI and advanced age the urine was sent for culture and she was given IV Rocephin in the ER. However if she is not showing changes consistent with acute kidney injury or urosepsis and her physical exam and history does not suggest seizure activity or spontaneous intracranial hemorrhage I do not feel there is a need for further intervention in the ER. Chart review revealed that roughly a month ago when she had the infection she had improvement on Macrobid and states she tolerated the medication well and therefore I will place her back on it once again while urine is sent for culture. However with stable vitals and no signs of BARBRA or urosepsis she is otherwise safe for discharge. History & Record Review Discussion w/independent historian: Significant other Lab Data Attestation: I reviewed the patient's lab results. Labs: Laboratory Results - last 24 hr 03/30/25 02:00 WBC 7.1 RBC 3.35 L Hgb 10.5 L Hct 32.2 L MCV 96.1 MCH 31.3 MCHC 32.6 RDW Std Deviation 45.1 H RDW Coeff of Marcio 12.8 Plt Count 161 MPV 10.4 Immature Gran % (Auto) 0.400 Neut % (Auto) 43.6 L Lymph % (Auto) 42.1 H [place] % (Auto) 9.1 Eos % (Auto) 3.8 Baso % (Auto) 1.0 Absolute Neuts (auto) 3.1 Absolute Lymphs (auto) 2.97 Nucleated RBC % 0 Sodium 140 Potassium 4.4 Chloride 106 Carbon Dioxide 25.9 Anion Gap 8 BUN 22 H Creatinine 1.12 Estim Creat Clear Calc 32.99 L Est GFR (MDRD) Non-Af 47 L BUN/Creatinine Ratio 20.0 Glucose 131 H Calcium 9.4 Total Bilirubin 0.24 Direct Bilirubin 0.13 AST 22 ALT 18 Alkaline Phosphatase 69 Total Protein 6.2 Albumin 3.6 Globulin 2.6 TSH 2.710 Urine Color Yellow Urine Clarity Clear Urine pH 6.5 Ur Specific [place] 1.010 Urine Protein Negative Urine Glucose (UA) Normal Urine Ketones Negative Urine Occult Blood Negative Urine Nitrite Positive H Urine Bilirubin Negative Urine Urobilinogen Normal Ur Leukocyte Esterase 100 H Urine RBC 0 SEEN Urine WBC 5-10 SEEN Ur Squamous Epith Cells 0 SEEN Urine Bacteria 2+ Urine Mucus 0 SEEN Radiography Diagnostic Testing: Clinical Impression(s) from Imaging Studies Brain CT 03/30/25 02:01 IMPRESSION: No acute cerebrovascular abnormalities. If clinical symptoms persist, further evaluation with MRI may be considered as clinically warranted. No intra or extra-axial acute hemorrhage. Bilateral cerebral microvascular ischemic changes with age matches brain involutional changes. Stable. Reading Location: [place] [id number] Discharge Plan Triage Chief Complaint: Mental Status Change ED Provider: Quentin Oshea Dx/Rx/DC Orders Clinical Impression: UTI (urinary tract infection), HLD (hyperlipidemia), Hypertension, Dementia, Diabetes mellitus type 2, noninsulin dependent Instructions: Urinary Tract Infections in Women Prescriptions: New nitrofurantoin monohyd/m-cryst [Macrobid] 100 mg capsule 100 mg PO BID 7 Days Qty: 14 0RF Rx Instructions: must administer with a meal/food No Action ramipril 5 mg capsule 5 mg PO DAILY ropinirole 0.25 mg tablet 0.5 mg PO QHS Rx Instructions: administer 1-3 hours before bedtime omeprazole 40 MG capsule 40 mg PO DAILY Patient Comments: STOMACH metformin 500 MG tablet 500 mg PO DAILY donepezil 5 MG tablet 10 mg PO QHS cholecalciferol (vitamin D3) 1,000 UNIT capsule 1,000 unit PO DAILY cinnamon bark 500 MG capsule 1,000 mg PO DAILY atorvastatin 80 MG tablet 80 mg PO QHS Qty: 30 0RF ddisadij-gkg-RJ-lycopen-lutein 1 EACH tablet 1 ea PO BID memantine 10 mg tablet 10 mg PO BID Patient Comments: TAKE 1 TABLET BY MOUTH TWICE DAILY modafinil 100 mg Tablet 200 mg PO DAILY aspirin 81 mg Tablet,Chewable 81 mg PO BREAKFAST Qty: 30 1RF glipizide 5 mg tablet 2.5 mg PO BID Patient Comments: TAKE 1/2 (ONE-HALF) TO 1 (ONE) TABLET BY MOUTH TWICE DAILY DIRECTED Rx Instructions: 2.5MG TO 5MG BID UD acetaminophen [Tylenol Extra Strength] 500 mg tablet 500 mg PO Q4H PRN (Reason: fever or pain) nitrofurantoin monohyd/m-cryst 100 mg capsule 100 mg PO Q12 Qty: 10 0RF Creon 36,000-114,000- 180,000 unit capsule,delayed release(DR/EC) 3 cap PO .aqc Qty: 300 11RF Rx Instructions: Take 3 caps with each meal and 1 with snacks. Max 10 caps per day Primary Care Provider: Mello Fowler Referrals: Mello Fowler DO [Primary Care Provider] - Activity Restrictions/Additional Instructions: Your 's workup today revealed a urinary tract infection similar to 1 month ago but no signs of systemic infection/sepsis. Please take the Macrobid/nitrofurantoin to resolve the infection; this is the same medication that was prescribed 1 month ago and therefore should resolve infection as it did at that time. Return to the ER should you have any further concerns or worsening of symptoms Print Language: Faroese Disposition Disposition: Home, Self Care Discharge Date/Time: 03/30/25 03:54
[2025-03-30 03:44] VITALS: BP 169/79; PULSE 77; RESP 16; TEMP 36.7; O2SAT 98
== END 2025-03-30 03:54 | disposition home or self-care (01) ==
PROVIDERS: Emergency Provider Emergency Medicine; PCP Family Medicine; Visit Provider Emergency Medicine
DX: N39.0 Urinary tract infection, site not specified (principal); F02.80 Dementia in other diseases classified elsewhere, unspecified severity, without behavioral disturbance, psychotic disturbance, mood disturbance, and anxiety; E11.22 Type 2 diabetes mellitus with diabetic chronic kidney disease; N18.30 Chronic kidney disease, stage 3 unspecified; I12.9 Hypertensive chronic kidney disease with stage 1 through stage 4 chronic kidney disease, or unspecified chronic kidney disease; Z90.710 Acquired absence of both cervix and uterus; E78.5 Hyperlipidemia, unspecified; R41.82 Altered mental status, unspecified; Z86.73 Personal history of transient ischemic attack (TIA), and cerebral infarction without residual deficits; K21.9 Gastro-esophageal reflux disease without esophagitis; Z79.899 Other long term (current) drug therapy; Z79.84 Long term (current) use of oral hypoglycemic drugs; G25.81 Restless legs syndrome; Z79.82 Long term (current) use of aspirin
CPT/HCPCS: 70450; 80048; 80076; 81001; 84443; 85025; 87086; 87088; 87186; 96365; 99285; P9612

== ENCOUNTER 2025-05-05 11:15 | Emergency (ER) | payer MEDICARE, OTHER, SELFPAY ==
[2025-05-05 11:16] VITALS: BP 174/74; PULSE 57; RESP 18; TEMP 36.7; O2SAT 99; BMI 29.4
[2025-05-05 11:20] VITALS: BP 174/74; PULSE 59; RESP 18; TEMP 36.7; O2SAT 96
--- NOTE | 2025-05-05 11:42 | EKG12_ITS ---
Test Reason : GENERAL Blood Pressure : */* mmHG Vent. Rate : 55 BPM Atrial Rate : 55 BPM P-R Int : 274 ms QRS Dur : 74 ms QT Int : 430 ms P-R-T Axes : 94 -22 42 degrees QTcB Int : 411 ms Sinus bradycardia with 1st degree A-V block Low voltage QRS Borderline ECG Confirmed by Gerald Hagan ([id number]), news editor WESLEY JOHN ([id number]) on 05/06/2025 1:41:34 PM Referred By: Confirmed By: Gerald Hagan
--- NOTE | 2025-05-05 11:42 | CT_ITS ---
EXAM: NONCONTRAST CT SCAN OF THE HEAD CLINICAL HISTORY: Trauma, mental status change COMPARISON: March 30, 2025 TECHNIQUE: Serial axial series through the head were obtained without contrast. 2-D coronal and sagittal reformats were then obtained. FINDINGS: Brain: There is no acute large territorial infarct, intracranial hemorrhage, midline shift or mass effect. There are atherosclerotic vascular calcifications involving the bilateral carotid siphons. The sella and pineal gland regions appear unremarkable. Low-density is noted in the deep white matter in the right and left consistent with chronic ischemic change, with focal encephalomalacia in the left occipital lobe, unchanged. There is no evidence of cerebellar tonsillar herniation. Ventricles: There is no acute hydrocephalus. Basilar cisterns are patent. Paranasal sinuses: Well-aerated Mastoid air cells: Well-aerated. Calvarium: The bony calvarium is intact. Orbits: The bilateral globes are symmetric, without retrobulbar compressive mass lesion or hemorrhage. CT/Brain/Head without Contrast IMPRESSION: Low-density is noted in the deep white matter in the right and left consistent with chronic ischemic change, with focal encephalomalacia in the left occipital lobe, unchanged. No acute intracranial pathology. Reading Location: [facility]
--- NOTE | 2025-05-05 11:43 | EX.ED.DYSGE1 ---
HPI History of Present Illness Chief Complaint: Alt LOC Narrative Narrative: 89-year-old female presents with her via EMS with acute change in mental status. History and physical is limited secondary to dementia. Additionally, her states that she had a stroke in 2018 which limits her vocabulary. She usually says the word virus. And naming certain things. She is repetitive with this at times. Additionally, he states that she is able to read signs when they are driving. He noticed that overnight, he thinks that something is wrong. Yesterday she had a fall in the driveway when she was getting in to the car. He denies her hitting her head or loss of consciousness. He thinks she may have fallen again yesterday. Home health aide came in today at 10 AM, over an hour and a half ago, and although she drank a lot of water yesterday which is unusual for her, she took her Creon and spat out her water. It was then that her states he knew that something was wrong and different. [facility] Medical History GERD (gastroesophageal reflux disease) TIA (transient ischemic attack) GI bleed Alzheimer disease Exocrine pancreatic insufficiency Falls Mental status alteration Loose stools AMS (altered mental status) History of Sjogren's disease RLS (restless legs syndrome) Varicose veins of leg with edema Bowel incontinence Chronic diarrhea Anemia due to stage 3 chronic kidney disease Noninfective gastroenteritis and colitis, unspecified Hearing loss, left Hearing loss, right Non-smoker CPAP (continuous positive airway pressure) dependence History of stroke Type 2 diabetes mellitus without complications Arthritis Dementia CVA (cerebral vascular accident) Nausea and vomiting in adult DM (diabetes mellitus), type 2 Home Medications ?Medication ?Instructions ?Recorded ?Last Taken ?Type omeprazole 40 mg capsule,delayed 40 mg PO DAILY GERD 01/06/14 01/11/23 History release cholecalciferol (vitamin D3) 25 1,000 unit PO DAILY supplement 08/28/16 01/11/23 History mcg (1,000 unit) capsule donepezil 5 mg tablet 10 mg PO QHS memory 08/28/16 01/11/23 History metformin 500 mg tablet 500 mg PO DAILY blood sugar 08/28/16 01/11/23 History cinnamon bark 500 mg capsule 1,000 mg PO DAILY supplement 11/30/17 01/11/23 History atorvastatin 80 mg tablet 80 mg PO QHS cholesterol #30 tabs 12/03/17 01/11/23 Rx xjjitglm-tvy-jlcmu acid 0.4 1 ea PO BID supplement 12/03/18 01/11/23 History mg-lycopene 300 mcg-lutein 250 mcg tablet memantine 10 mg tablet 10 mg PO BID mental health 09/11/21 01/11/23 History ramipril 5 mg capsule 5 mg PO DAILY blood pressure 01/11/22 01/11/23 History ropinirole 0.25 mg tablet 0.5 mg PO QHS restless legs 01/11/22 01/11/23 History Held on 06/07/23. Instructions: unsure if she still takes modafinil 100 mg tablet 200 mg PO DAILY sleepiness 09/16/22 01/11/23 History aspirin 81 mg chewable tablet 81 mg PO BREAKFAST #30 tabs 09/20/22 01/11/23 Rx glipizide 5 mg tablet 2.5 mg PO BID DM 01/12/23 01/11/23 History acetaminophen 500 mg tablet 500 mg PO Q4H PRN fever or pain 06/07/23 Unknown History (Tylenol Extra Strength) djvhdz-edepghuo-vufrspx 3 cap PO .aqc #300 caps 07/24/24 Unknown Rx 36,000-114,000-180,000 unit capsule,delay rel (Creon) nitrofurantoin 100 mg PO Q12 #10 CAPSULES 02/22/25 Unknown Rx monohydrate/macrocrystals 100 mg capsule nitrofurantoin 100 mg PO BID 7 days #14 caps 03/30/25 Unknown Rx monohydrate/macrocrystals 100 mg capsule (Macrobid) Allergy/AdvReac Type Severity Reaction Status Date / Time pollen extracts Allergy Intermediate PT UNSURE Verified 05/05/25 11:23 OF REACTION Family History Mother Alzheimer disease Brother Alzheimer disease Aunt Alzheimer disease Father Heart disease Surgical History H/O lumpectomy H/O: hysterectomy History of tonsillectomy Social History household members: spouse Smoking Status: Never smoker alcohol intake: never substance use type: does not use ROS ROS ED ROS Narrative Review of systems limited secondary to patient condition/mental status at baseline. Per , spat out water, frequent falls, generalized weakness. EXAM Physical Exam Narrative Exam Narrative: Afebrile vital signs noted, nontoxic-appearing. Cardiovascular examination regular rate and rhythm. Lungs clear to auscultation bilaterally. Abdomen soft and nontender. No guarding or rebound. Awake, moves all extremities, nonverbal. Const Vital Signs: 05/05/25 11:16 05/05/25 11:20 05/05/25 12:15 Temperature 98.1 F 98.1 F Temperature Source Axillary Axillary Pulse Rate 57 L 59 L 52 L Respiratory Rate 18 18 16 Blood Pressure 174/74 H 174/74 H 179/78 H Blood Pressure Mean 107 107 111 Pulse Ox 99 96 100 Oxygen Delivery Method Room Air Room Air Room Air 05/05/25 12:20 Temperature 97.7 F L Temperature Source Axillary Pulse Rate 61 Respiratory Rate 25 H Blood Pressure 159/91 H Blood Pressure Mean 113 Pulse Ox 100 Oxygen Delivery Method MDM MDM MDM Narrative Medical decision making narrative: Differential diagnosis includes but not limited to acute delirium secondary to UTI versus pneumonia. Clinically she has no signs of a pneumonia as she is not febrile and has not had fever or cough. She may have dehydration versus electrolyte imbalance. She may have slight concussion as well given her falls over the last 24 hours. I have a low concern for intracranial hemorrhage. CT imaging will be obtained his generalized workup as well. I reviewed her laboratory work and she has normal white count of 8.0, hemoglobin 11.6, but she has a history of chronic anemia. Platelet count 169. CMP grossly unremarkable except for creatinine clearance 39.88 with a normal creatinine of 0.93 and BUN 18. Glucose 98. Urinalysis positive for nitrites but 0-5 white cells. I do not feel that she needs antibiotics, but her states that she is on a low dose antibiotic for her previous UTI. Urine culture was sent and is pending. I reviewed the radiology report of the CT of the brain which shows no acute process, chronic changes. Chest x-ray interpreted by myself independently shows small left pleural effusion but no evidence of a pneumonia or pneumothorax. I reviewed the radiology report which confirms my independent interpretation. At this point in time, upon repeat examination at approximately 1345, her states that her mental status has improved significantly. He states that she is come up with new words including infection. However, I do not feel that she has an infection. I feel she can be discharged to follow-up with her primary care provider. Return instructions to the emergency department were reviewed. Disposition is discharged home in stable condition. History & Record Review Discussion w/independent historian: Family () Additional record(s) reviewed:: Prior ED visit and Prior labs Lab Data Attestation: I reviewed the patient's lab results. Labs: Laboratory Results - last 24 hr 05/05/25 05/05/25 12:13 12:14 WBC 8.0 RBC 3.66 L Hgb 11.6 L Hct 34.2 L MCV 93.4 MCH 31.7 MCHC 33.9 RDW Std Deviation 43.2 RDW Coeff of Marcio 12.6 Plt Count 169 MPV 10.9 Immature Gran % (Auto) 0.400 Neut % (Auto) 65.2 Lymph % (Auto) 22.6 [place] % (Auto) 7.8 Eos % (Auto) 3.1 Baso % (Auto) 0.9 Absolute Neuts (auto) 5.2 Absolute Lymphs (auto) 1.82 Nucleated RBC % 0 Sodium 133 Potassium 4.5 Chloride 100 Carbon Dioxide 24.3 Anion Gap 9 BUN 18 Creatinine 0.93 Estim Creat Clear Calc 39.88 L Est GFR (MDRD) Non-Af 59 L BUN/Creatinine Ratio 19.0 Glucose 98 Calcium 9.5 Total Bilirubin 0.62 AST 26 ALT 20 Alkaline Phosphatase 74 Total Protein 6.5 Albumin 4.0 Globulin 2.5 Albumin/Globulin Ratio 1.6 Urine Color Yellow Urine Clarity Sl. Cloudy Urine pH 6.0 Ur Specific [place] 1.010 Urine Protein Negative Urine Glucose (UA) Normal Urine Ketones Negative Urine Occult Blood 10 H Urine Nitrite Positive H Urine Bilirubin Negative Urine Urobilinogen Normal Ur Leukocyte Esterase 25 H Urine RBC 0 SEEN Urine WBC 0-5 SEEN Ur Squamous Epith Cells 0 SEEN Urine Bacteria 2+ Urine Mucus 0 SEEN Radiography Chest X-Ray - ED: 1 View, Read by ED Physician, Read by Radiologist and Unchanged Diagnostic Testing: Clinical Impression(s) from Imaging Studies Brain CT 05/05/25 11:42 IMPRESSION: Low-density is noted in the deep white matter in the right and left consistent with chronic ischemic change, with focal encephalomalacia in the left occipital lobe, unchanged. No acute intracranial pathology. [facility] Chest X-Ray 05/05/25 13:00 IMPRESSION: There is blunting of the costophrenic angle on the left which may represent a trace effusion, similar to the prior. Reading Location: [facility] Discharge Plan Triage Chief Complaint: Alt LOC ED Provider: Alex Saha Dx/Rx/DC Orders Clinical Impression: Dementia, Fluctuating mental status Instructions: ED ALOC, ED DEMENTIA Alzheimer's Prescriptions: No Action ramipril 5 mg capsule 5 mg PO DAILY ropinirole 0.25 mg tablet 0.5 mg PO QHS Rx Instructions: administer 1-3 hours before bedtime omeprazole 40 MG capsule 40 mg PO DAILY Patient Comments: STOMACH metformin 500 MG tablet 500 mg PO DAILY donepezil 5 MG tablet 10 mg PO QHS cholecalciferol (vitamin D3) 1,000 UNIT capsule 1,000 unit PO DAILY cinnamon bark 500 MG capsule 1,000 mg PO DAILY atorvastatin 80 MG tablet 80 mg PO QHS Qty: 30 0RF gcfcepsu-ilr-AM-lycopen-lutein 1 EACH tablet 1 ea PO BID memantine 10 mg tablet 10 mg PO BID Patient Comments: TAKE 1 TABLET BY MOUTH TWICE DAILY modafinil 100 mg Tablet 200 mg PO DAILY aspirin 81 mg Tablet,Chewable 81 mg PO BREAKFAST Qty: 30 1RF glipizide 5 mg tablet 2.5 mg PO BID Patient Comments: TAKE 1/2 (ONE-HALF) TO 1 (ONE) TABLET BY MOUTH TWICE DAILY DIRECTED Rx Instructions: 2.5MG TO 5MG BID UD acetaminophen [Tylenol Extra Strength] 500 mg tablet 500 mg PO Q4H PRN (Reason: fever or pain) nitrofurantoin monohyd/m-cryst 100 mg capsule 100 mg PO Q12 Qty: 10 0RF nitrofurantoin monohyd/m-cryst [Macrobid] 100 mg capsule 100 mg PO BID 7 Days Qty: 14 0RF Rx Instructions: must administer with a meal/food Creon 36,000-114,000- 180,000 unit capsule,delayed release(DR/EC) 3 cap PO .aqc Qty: 300 11RF Rx Instructions: Take 3 caps with each meal and 1 with snacks. Max 10 caps per day Primary Care Provider: Mello Fowler Referrals: Mello Fowler DO [Primary Care Provider, Family Practice] Print Language: Japanese
[2025-05-05 12:15] VITALS: BP 179/78; PULSE 52; RESP 16; O2SAT 100
[2025-05-05] MEDS: 0.9% Normal Saline (1000mL) 1,000 ML 1000 ML IV (12:19)
[2025-05-05 12:20] VITALS: BP 159/91; PULSE 61; RESP 25; TEMP 36.5; O2SAT 100
[2025-05-05 12:27] LABS: Mucous, Urine 0 SEEN /hpf (<or=2+); Red Blood Cells-Urine 0 SEEN /hpf (0-5); Squamous Epithelial Cells - UA 0 SEEN /hpf (5-10)
[2025-05-05 12:45] LABS: Hematocrit 34.2 % (37-47); Hemoglobin 11.6 g/dL (12.0-15.0); Immature Granulocytes Count 0.030 X10^3/uL (0.0-0.0); Mean Corp Hgb Conc 33.9 g/dL (32-36); Mean Corpuscular Volume 93.4 fL (81-99); Mean Platelet Vol. 10.9 fl (6.2-12.0); NRBC Flagged by Analyzer 0 % (0-5); Platelet Count 169 K/mm3 (150-450); RBC Distribution Width CV 12.6 % (11.6-14.6); RBC Distribution Width SD 43.2 fl (35.1-43.9); Red Blood Count 3.66 M/mm3 (4.2-5.4); White Blood Count 8.0 K/mm3 (4.4-11.0)
[2025-05-05 13:00] VITALS: BP 178/84; PULSE 58; RESP 14; TEMP 35.9; O2SAT 94
--- NOTE | 2025-05-05 13:00 | RAD_ITS ---
PROCEDURE: CHEST 1 VIEW (PORTABLE) 05/05/2025 REASON FOR EXAM: FATIGUE, CORONARY ARTERY DISEASE TECHNIQUE: Frontal view of the chest. COMPARISON: February 22, 2025 FINDINGS: Heart size upper normal. Central vascularity appears within normal limits. There is no focal infiltrate or consolidation. There is blunting of the costophrenic angle on the left which may represent a trace effusion. Aortic calcifications are noted. There is no visible acute bony abnormality. RAD/Chest 1 View (Portable) IMPRESSION: There is blunting of the costophrenic angle on the left which may represent a t race effusion, similar to the prior. Reading Location: [facility]
[2025-05-05 13:01] LABS: AST(SGOT) 26 U/L (<=31); Alanine Aminotransfer ALT/SGPT 20 U/L (<=34); Albumin, Serum 4.0 g/dL (3.4-4.8); Alkaline Phosphatase 74 U/L (35-104); Anion Gap 9 (5-15); BUN 18 mg/dL (4-19); BUN/Creat Ratio 19.0 RATIO (10-20); Calcium,Total 9.5 mg/dL (7.6-11.0); Carbon Dioxide 24.3 mmol/L (21.0-32.0); Chloride 100 mmol/L (98-108); Estimated Creatinine Clearance 39.88 ml/min (50-250); Globulin 2.5 g/dL (2.2-4.2); Glucose 98 mg/dL (70-99); Potassium 4.5 mmol/L (3.3-5.1)
[2025-05-05 13:10] LABS: Color, Urine Yellow (Yellow); Glucose, Dipstick Normal (Normal); Ketone-Dipstick Negative (Negative); Leukocyte Esterase-Dipstick 25 /ul (Negative); Nitrite-Dipstick Positive (Negative); Occult Blood-Urine 10 /ul (Negative); Protein-Dipstick Negative (Negative); Specific Gravity, Urine 1.010 (1.002-1.030); Urine Bilirubin Dipstick Negative (Negative)
[2025-05-05 13:50] VITALS: BP 162/96; PULSE 68; RESP 25; TEMP 35.9; O2SAT 100
== END 2025-05-05 14:00 | disposition home or self-care (01) ==
PROVIDERS: Emergency Provider Emergency Medicine; PCP Family Medicine; Visit Provider Emergency Medicine
DX: G30.9 Alzheimer's disease, unspecified (principal); F02.80 Dementia in other diseases classified elsewhere, unspecified severity, without behavioral disturbance, psychotic disturbance, mood disturbance, and anxiety; E11.22 Type 2 diabetes mellitus with diabetic chronic kidney disease; N18.30 Chronic kidney disease, stage 3 unspecified; R00.1 Bradycardia, unspecified; R29.6 Repeated falls; Z79.82 Long term (current) use of aspirin; Z79.84 Long term (current) use of oral hypoglycemic drugs; Z79.899 Other long term (current) drug therapy
CPT/HCPCS: 70450; 71045; 80053; 81001; 85025; 87077; 87086; 87088; 87186; 93005; 96360; 99285; P9612; A4216

== ENCOUNTER 2025-05-13 12:53 | Observation (INO) | payer MEDICARE, OTHER, SELFPAY ==
[2025-05-13] VITALS (10 sets, daily range): BP systolic 112–157; BP diastolic 64–86; PULSE 57–74; RESP 16–20; TEMP 36.3–37; O2SAT 90–100; BMI 30.3
--- NOTE | 2025-05-13 13:23 | RAD_ITS ---
PROCEDURE: CHEST 1 VIEW (PORTABLE) 05/13/2025 REASON FOR EXAM: WEAKNESS TECHNIQUE: Frontal view of the chest. COMPARISON: May 05, 2025. FINDINGS: Hardware: None Heart: Borderline cardiomegaly. Calcification of the aortic arch. Lungs: Stable pleural-parenchymal changes at the left lung base. Calcified right infrahilar lymph node. Bones: Degenerative changes are identified within the thoracic spine. RAD/Chest 1 View (Portable) IMPRESSION: Stable pleural-parenchymal changes at the left lung base suggestive of atelecta sis and small left pleural effusion. Calcified right infrahilar lymph node. Reading Location: [id number]
--- NOTE | 2025-05-13 13:25 | EKG12_ITS ---
Test Reason : UTI Blood Pressure : */* mmHG Vent. Rate : 60 BPM Atrial Rate : 60 BPM P-R Int : 234 ms QRS Dur : 72 ms QT Int : 400 ms P-R-T Axes : 60 -18 42 degrees QTcB Int : 400 ms Sinus rhythm with 1st degree A-V block Otherwise normal ECG Confirmed by ADAIR CANTOR, CRISTIAN ([id number]), online content editor JUDD UMANA ([id number]) on 05/15/2025 9:59:12 AM Referred By: [place] Confirmed By: CRISTIAN BORRERO MD
--- NOTE | 2025-05-13 13:28 | EX.ED.DYSGE1 ---
HPI History of Present Illness Chief Complaint: Abd Pain Informant: patient, spouse/S.O. and EMS Onset/Context/Timing Onset: Days (3) Context: Gradual Onset Timing: Continuous Quality: weak Location: all over Narrative Narrative: Patient is an 89-year-old female with a history of dementia presenting with weakness and inability to ambulate. She is accompanied by a caregiver who is providing history on her behalf. - Diagnosed with a UTI 5-6 days ago and started on antibiotics. - Reports groin pain and progressive weakness, now unable to stand or walk independently. - Has not been able to go up and down stairs for the past 3 days; previously able to do so 2-3 times daily. - Denies emesis, dyspnea, or recent falls. - No known injuries; denies fever, with a recorded temperature of 98.2?F at home. - Caregiver notes a possible missed antibiotic dose. [facility] Medical History GERD (gastroesophageal reflux disease) TIA (transient ischemic attack) GI bleed Alzheimer disease Exocrine pancreatic insufficiency Falls Mental status alteration Loose stools AMS (altered mental status) History of Sjogren's disease RLS (restless legs syndrome) Varicose veins of leg with edema Bowel incontinence Chronic diarrhea Anemia due to stage 3 chronic kidney disease Noninfective gastroenteritis and colitis, unspecified Hearing loss, left Hearing loss, right Non-smoker CPAP (continuous positive airway pressure) dependence History of stroke Type 2 diabetes mellitus without complications Arthritis Dementia CVA (cerebral vascular accident) Nausea and vomiting in adult DM (diabetes mellitus), type 2 Home Medications ?Medication ?Instructions ?Recorded ?Last Taken ?Type omeprazole 40 mg capsule,delayed 40 mg PO DAILY GERD 01/06/14 01/11/23 History release cholecalciferol (vitamin D3) 25 1,000 unit PO DAILY supplement 08/28/16 01/11/23 History mcg (1,000 unit) capsule metformin 500 mg tablet 500 mg PO DAILY blood sugar 08/28/16 01/11/23 History cinnamon bark 500 mg capsule 1,000 mg PO DAILY supplement 11/30/17 01/11/23 History lyzxupjw-lko-merjl acid 0.4 1 ea PO BID supplement 12/03/18 01/11/23 History mg-lycopene 300 mcg-lutein 250 mcg tablet memantine 10 mg tablet 10 mg PO BID mental health 09/11/21 01/11/23 History ramipril 5 mg capsule 5 mg PO DAILY blood pressure 01/11/22 01/11/23 History modafinil 100 mg tablet 200 mg PO DAILY sleepiness 09/16/22 01/11/23 History aspirin 81 mg chewable tablet 81 mg PO BREAKFAST #30 tabs 09/20/22 01/11/23 Rx acetaminophen 500 mg tablet 500 mg PO BID 06/07/23 Unknown History (Tylenol Extra Strength) odqabw-yvtbbfrd-wefkadc 3 cap PO .aqc #300 caps 07/24/24 Unknown Rx 36,000-114,000-180,000 unit capsule,delay rel (Creon) nitrofurantoin 100 mg PO Q12 #10 CAPSULES 02/22/25 Unknown Rx monohydrate/macrocrystals 100 mg capsule Held on 05/13/25. Instructions: while treating uti nitrofurantoin 100 mg PO BID 7 days #14 caps 03/30/25 Unknown Rx monohydrate/macrocrystals 100 mg capsule (Macrobid) Held on 05/13/25. Instructions: while treating uti sulfamethoxazole 800 1 tab PO BID #14 TABLETS 05/07/25 Unknown Rx mg-trimethoprim 160 mg tablet atorvastatin 40 mg tablet 80 mg PO DAILY 05/13/25 Unknown History cyanocobalamin (B12)-cobamamide 1 dorota sublingual DAILY 05/13/25 Unknown History 5,000 mcg-100 mcg sublingual lozenge (B12) donepezil 10 mg tablet 10 mg PO QHS 05/13/25 Unknown History ferrous gluconate 240 mg (27 mg 240 mg PO DAILY 05/13/25 Unknown History iron) tablet (Ferate) glipizide 2.5 mg tablet 2.5 mg PO BID 05/13/25 Unknown History nitrofurantoin macrocrystal 50 mg 50 mg PO DAILY 05/13/25 Unknown History capsule Held on 05/13/25. Instructions: while treating uti ropinirole 0.5 mg tablet 0.5 mg PO DAILY 05/13/25 Unknown History Allergy/AdvReac Type Severity Reaction Status Date / Time pollen extracts Allergy Intermediate PT UNSURE Verified 05/13/25 12:59 OF REACTION Family History Mother Alzheimer disease Brother Alzheimer disease Aunt Alzheimer disease Father Heart disease Surgical History H/O lumpectomy H/O: hysterectomy History of tonsillectomy Social History household members: spouse Smoking Status: Never smoker alcohol intake: never substance use type: does not use ROS ROS ED Review of Systems ROS Unobtainable: due to mental status Constitutional Constitutional ED: Reports fatigue; Denies fever(s) Eyes Eyes: Denies change in vision ENT ENT ED: Denies sore throat Cardiovascular Cardiovascular: Denies chest pain or palpitations Respiratory/Chest Respiratory/Chest: Denies cough or dyspnea Gastrointestinal Gastrointestinal: Denies abdominal pain, diarrhea, nausea or vomiting Musculoskeletal Musculoskeletal: Denies back pain or neck pain Neurologic Neurologic: Denies headache(s) EXAM Physical Exam Const Vital Signs: 05/13/25 13:00 05/13/25 13:04 05/13/25 14:04 Temperature 98.6 F 98.6 F 98.6 F Temperature Source Oral Oral Oral Pulse Rate 64 61 57 L Respiratory Rate 18 18 20 H Blood Pressure 116/64 116/64 113/76 Blood Pressure Mean 81 81 88 Pulse Ox 94 94 97 Oxygen Delivery Method Room Air Room Air Room Air 05/13/25 15:00 05/13/25 16:00 Temperature 97.7 F L 97.7 F L Temperature Source Oral Oral Pulse Rate 59 L 65 Respiratory Rate 18 16 Blood Pressure 115/69 137/86 H Blood Pressure Mean 84 98 Pulse Ox 100 100 Oxygen Delivery Method Room Air Room Air Positive well nourished and well developed Constitutional Narrative: Alert and cooperative General Appearance ED: well developed and NAD HEENT Reports moist mucous membranes normocephalic and atraumatic Eyes PERRL and EOMs intact bilaterally Neck full ROM and supple Resp normal respiratory effort and clear to auscultation bilaterally Cardio regular rate, regular rhythm and no murmurs GI non-tender and non-distended Auscultation: normoactive bowel sounds Palpation: soft Back/Spine no CVA tenderness General Back: other FROM Extremity normal to inspection General Extremety ED: Negative for edema, pulses abnormal or tenderness General Extremity: Negative for edema or pulses abnormal Neuro CN's II-XII intact bilaterally and no sensory deficits noted Neuro Narrative: At baseline per . Nonfocal peripheral neurologic exam. Sensorium / Orientation: awake, alert and orientation impaired Motor Exam: general weakness Psych mental status grossly normal Skin no rashes or lesions noted and no wounds MDM MDM MDM Narrative Medical decision making narrative: Assessment: The patient is a 89-year-old female with PMH of dementia presenting for generalized weakness and debility after 5?6 days of Bactrim therapy for culture-proven Klebsiella urinary tract infection. Repeat evaluation shows mild acute kidney injury and a mildly elevated troponin felt secondary to renal impairment; EKG shows unchanged first-degree AV block and no ischemic changes, making acute coronary syndrome unlikely. Chest imaging reveals no pneumonia. New UA appears normal. Overall picture is resolved urinary tract infection with new BARBRA contributing to weakness and functional decline necessitating admission. Plan: - Started IV fluids for hydration and renal support - Arranged hospital admission for further management of UTI, BARBRA, and functional decline Diagnostics: - Urine culture: >100,000 CFU/mL Klebsiella, sensitive to Bactrim - Prior urinalysis reviewed ? no significant pyuria - Labs: mild BARBRA noted; mildly elevated troponin - Chest x-ray ? no pneumonia - EKG interpreted: normal except first-degree AV block unchanged from prior; no acute ischemia. Independently interpreted by me, Nikita Alvarado. Consultations: - Discussed case with hospitalist for admission and further care History & Record Review Additional record(s) reviewed:: Prior ED visit and Prior labs (and urine culture) Lab Data Attestation: I reviewed the patient's lab results. Labs: Laboratory Results - last 24 hr 05/13/25 05/13/25 14:24 15:11 WBC 7.5 RBC 3.41 L Hgb 10.8 L Hct 32.5 L MCV 95.3 MCH 31.7 MCHC 33.2 RDW Std Deviation 45.0 H RDW Coeff of Marcio 12.8 Plt Count 181 MPV 10.4 Immature Gran % (Auto) 0.700 Neut % (Auto) 61.5 Lymph % (Auto) 24.0 [place] % (Auto) 9.5 Eos % (Auto) 2.8 Baso % (Auto) 1.5 H Absolute Neuts (auto) 4.6 Absolute Lymphs (auto) 1.80 Nucleated RBC % 0 Sodium 134 Potassium 5.0 Chloride 103 Carbon Dioxide 23.5 Anion Gap 8 BUN 21 H Creatinine 1.27 H Estim Creat Clear Calc 29.64 L Est GFR (MDRD) Non-Af 40 L BUN/Creatinine Ratio 16.1 Glucose 130 H Lactic Acid 1.6 Calcium 9.5 Total Bilirubin 0.20 AST 25 ALT 20 Alkaline Phosphatase 75 Troponin T High Sens 27 H Total Protein 6.1 Albumin 3.6 Globulin 2.5 Albumin/Globulin Ratio 1.4 Urine Color Straw Urine Clarity Clear Urine pH 6.5 Ur Specific [place] 1.010 Urine Protein Negative Urine Glucose (UA) Normal Urine Ketones Negative Urine Occult Blood 10 H Urine Nitrite Negative Urine Bilirubin Negative Urine Urobilinogen Normal Ur Leukocyte Esterase Negative Radiography Diagnostic Testing: Clinical Impression(s) from Imaging Studies Chest X-Ray 05/13/25 13:23 IMPRESSION: Stable pleural-parenchymal changes at the left lung base suggestive of atelectasis and small left pleural effusion. Calcified right infrahilar lymph node. Reading Location: [facility] Rhythm Strip Rhythm Strip: Sinus Rhythm Rate: 60 Ectopy: None EKG Initial EKG: Attestation: I personally reviewed and interpreted this EKG as follows: Interpretation: Sinus Rhythm, No Acute Injury Pattern and AV Block (First-degree) Comments: Nml axis & intervals except for first-degree AV block, otherwise nml EKG Management Discussion w/another healthcare provider: Hospitalist Discharge Plan Dx/Rx/DC Orders Clinical Impression: BARBRA (acute kidney injury), Debility, Dementia without behavioral disturbance Disposition Disposition: [facility]
[2025-05-13] MEDS: 0.9% Normal Saline (500mL Bag) 500 ML 1000 ML IV (14:19)
[2025-05-13 14:39] LABS: Hematocrit 32.5 % (37-47); Hemoglobin 10.8 g/dL (12.0-15.0); Immature Granulocytes Count 0.050 X10^3/uL (0.0-0.0); Mean Corp Hgb Conc 33.2 g/dL (32-36); Mean Corpuscular Volume 95.3 fL (81-99); Mean Platelet Vol. 10.4 fl (6.2-12.0); NRBC Flagged by Analyzer 0 % (0-5); Platelet Count 181 K/mm3 (150-450); RBC Distribution Width CV 12.8 % (11.6-14.6); RBC Distribution Width SD 45.0 fl (35.1-43.9); Red Blood Count 3.41 M/mm3 (4.2-5.4); White Blood Count 7.5 K/mm3 (4.4-11.0)
[2025-05-13 14:58] LABS: Troponin T High Sensitivity 27 ng/L (<=14)
[2025-05-13 15:01] LABS: AST(SGOT) 25 U/L (<=31); Alanine Aminotransfer ALT/SGPT 20 U/L (<=34); Albumin, Serum 3.6 g/dL (3.4-4.8); Alkaline Phosphatase 75 U/L (35-104); Anion Gap 8 (5-15); BUN 21 mg/dL (4-19); BUN/Creat Ratio 16.1 RATIO (10-20); Calcium,Total 9.5 mg/dL (7.6-11.0); Carbon Dioxide 23.5 mmol/L (21.0-32.0); Chloride 103 mmol/L (98-108); Estimated Creatinine Clearance 29.64 ml/min (50-250); Globulin 2.5 g/dL (2.2-4.2); Glucose 130 mg/dL (70-99); Potassium 5.0 mmol/L (3.3-5.1)
[2025-05-13 15:17] LABS: Mucous, Urine 0 SEEN /hpf (<or=2+); Squamous Epithelial Cells - UA 0 SEEN /hpf (5-10)
[2025-05-13 15:44] LABS: Color, Urine Straw (Yellow); Glucose, Dipstick Normal (Normal); Ketone-Dipstick Negative (Negative); Leukocyte Esterase-Dipstick Negative /ul (Negative); Nitrite-Dipstick Negative (Negative); Occult Blood-Urine 10 /ul (Negative); Protein-Dipstick Negative (Negative); Specific Gravity, Urine 1.010 (1.002-1.030); Urine Bilirubin Dipstick Negative (Negative)
--- NOTE | 2025-05-13 15:58 | HP.PCM.HOS_ITS ---
HPI - General General Date of Admission: 05/13/25 Date of Service: 05/13/25 Chief Complaint: Weakness HPI Narrative LIZA HANCOCK, is a 89 F who presented to [facility] ED on 05/13/2025 with worsening weakness. Medical history significant for Alzheimer's dementia (alert and oriented x 1 to person only at baseline). She lives at home with her and they have a private caregiver who comes in 5 days/week from 9am-2pm. She was recently seen in the ED here on 05/05 for altered mental status. It was suspected this was secondary to UTI and she was sent home on Bactrim. She has completed 5 to 6 days worth of the antibiotic course. notes that patient has had worsening weakness and has been unable to stand or walk independently for the past 1 to 2 days. He notes that she was previously able to go up and down a few steps at home prior to a few days ago. In the ED patient was afebrile and otherwise hemodynamically stable. She was mildly agitated and unsure of where she was but she was able to give her name; notes this is about her baseline. BMP with creatinine 1.27, mildly up from baseline 0.9-1.1. CBC and BMP were otherwise benign. Given her worsening weakness and inability to ambulate, hospitalist was contacted for admission. I saw the patient at bedside in the ED, present. Patient was unable to provide any history for me. reiterated the above information to me. He notes that patient has not required SNF placement in the past and he would much prefer her to go home if possible. Will be admitted for further management. [facility] Medical History GERD (gastroesophageal reflux disease) TIA (transient ischemic attack) GI bleed Alzheimer disease Exocrine pancreatic insufficiency Falls Mental status alteration Loose stools AMS (altered mental status) History of Sjogren's disease RLS (restless legs syndrome) Varicose veins of leg with edema Bowel incontinence Chronic diarrhea Anemia due to stage 3 chronic kidney disease Noninfective gastroenteritis and colitis, unspecified Hearing loss, left Hearing loss, right Non-smoker CPAP (continuous positive airway pressure) dependence History of stroke Type 2 diabetes mellitus without complications Arthritis Dementia CVA (cerebral vascular accident) Nausea and vomiting in adult DM (diabetes mellitus), type 2 Home Medications ?Medication ?Instructions ?Recorded ?Last Taken ?Type omeprazole 40 mg capsule,delayed 40 mg PO DAILY GERD 0 01/06/14 01/11/23 History release cholecalciferol (vitamin D3) 25 1,000 unit PO DAILY messer pplement 08/28/16 01/11/23 History mcg (1,000 unit) capsule metformin 500 mg tablet 500 mg PO DAILY blood sugar 08/28/16 01/11/23 History cinnamon bark 500 mg capsule 1,000 mg PO DAILY supplem ent 11/30/17 01/11/23 History zmhpjyhd-ffa-kwynb acid 0.4 1 ea PO BID supplement 01/11/23 History mg-lycopene 300 mcg-lutein 250 mcg tablet memantine 10 mg tablet 10 mg PO BID mental health 0 09/11/21 01/11/23 History ramipril 5 mg capsule 5 mg PO DAILY blood pressure 01/11/22 01/11/23 History modafinil 100 mg tablet 200 mg PO DAILY sleepiness 0 09/16/22 01/11/23 History aspirin 81 mg chewable tablet 81 mg PO BREAKFAST #30 t abs 09/20/22 01/11/23 Rx acetaminophen 500 mg tablet 500 mg PO BID 06/07/23 Unk nown History (Tylenol Extra Strength) nvpbsq-ntzgbatl-abmwnqb 3 cap PO .aqc #300 caps 04/09 Unknown Rx 36,000-114,000-180,000 unit capsule,delay rel (Creon) nitrofurantoin 100 mg PO Q12 #10 CAPSULES 0 02/22/25 Unknown Rx monohydrate/macrocrystals 100 mg capsule Held on 05/13/25. Instructions: while treating uti nitrofurantoin 100 mg PO BID 7 days #14 cap s 03/30/25 Unknown Rx monohydrate/macrocrystals 100 mg capsule (Macrobid) Held on 05/13/25. Instructions: while treating uti sulfamethoxazole 800 1 tab PO BID #14 TABLETS Unknown Rx mg-trimethoprim 160 mg tablet atorvastatin 40 mg tablet 80 mg PO DAILY 05/13/25 Unkn own History cyanocobalamin (B12)-cobamamide 1 dorota sublingual DAILY 05/13/25 Unknown History 5,000 mcg-100 mcg sublingual lozenge (B12) donepezil 10 mg tablet 10 mg PO QHS 05/13/25 Unknow n History ferrous gluconate 240 mg (27 mg 240 mg PO DAILY Unknown History iron) tablet (Ferate) glipizide 2.5 mg tablet 2.5 mg PO BID 05/13/25 Unkno wn History nitrofurantoin macrocrystal 50 mg 50 mg PO DAILY 05/13 Unknown History capsule Held on 05/13/25. Instructions: while treating uti ropinirole 0.5 mg tablet 0.5 mg PO DAILY 05/13/25 Unk nown History Allergy/AdvReac Type Severity Reaction Status Date / Time pollen extracts Allergy Intermediate PT UNSURE Verified 05/13/25 12:59 OF REACTION Family History Mother Alzheimer disease Brother Alzheimer disease Aunt Alzheimer disease Father Heart disease Surgical History H/O lumpectomy H/O: hysterectomy History of tonsillectomy Social History household members: spouse Smoking Status: Never smoker alcohol intake: never substance use type: does not use ROS Review of Systems ROS Unobtainable: due to mental condition Vital Signs Vital Signs Vital Signs: 05/13/25 13:00 05/13/25 13:04 05/13/25 14:04 Temperature 98.6 F 98.6 F 98.6 F Temperature Source Oral Oral Oral Pulse Rate 64 61 57 L Respiratory Rate 18 18 20 H Blood Pressure 116/64 116/64 113/76 Blood Pressure Mean 81 81 88 Pulse Ox 94 94 97 Oxygen Delivery Method Room Air Room Air Room Air 05/13/25 15:00 Temperature 97.7 F L Temperature Source Oral Pulse Rate 59 L Respiratory Rate 18 Blood Pressure 115/69 Blood Pressure Mean 84 Pulse Ox 100 Oxygen Delivery Method Room Air Weight Weight: 77.7 kg Body Mass Index (BMI) 30.3 Physical Exam Const alert, no apparent distress and average body habitus Constitutional Narrative: Elderly female, alert and oriented x 1 to person only, mildly agitated appearing, otherwise laying back in bed and in no acute distress. General Appearance: cooperative HEENT normocephalic, head/scalp atraumatic, hearing grossly normal bilaterally, nasal mucous membranes and turbinates normal and moist oral mucous membranes Eyes PERRL, EOMs intact bilaterally and conjunctivae normal Neck full ROM Chest inspection of chest normal Resp normal respiratory effort, normal air movement, no use of accessory muscles and clear to auscultation bilaterally Cardio regular rate, regular rhythm, no murmurs and peripheral pulses 2+ throughout GI normal to inspection, nondistended, normoactive bowel sounds, soft to palpation, non-tender and non-distended Back/Spine normal ROM Extremity normal to inspection, full ROM and no pedal edema Skin no rashes or lesions noted Results Lab / Micro Data 05/13/25 14:24 05/13/25 14:24 Labs: Laboratory Results - last 24 hr 05/13/25 14:24: WBC 7.5, RBC 3.41 L, Hgb 10.8 L, Hct 32.5 L, MCV 95.3, MCH 31.7, MCHC 33.2, RDW Std Deviation 45.0 H, RDW Coeff of Marcio 12.8, Plt Count 181, MPV 10.4, Immature Gran % (Auto) 0.700, Neut % (Auto) 61.5, Lymph % (Auto) 24.0, [place] % (Auto) 9.5, Eos % (Auto) 2.8, Baso % (Auto) 1.5 H, Absolute Neuts (auto) 4.6, Absolute Lymphs (auto) 1.80, Nucleated RBC % 0, Sodium 134, Potassium 5.0, Chloride 103, Carbon Dioxide 23.5, Anion Gap 8, BUN 21 H, Creatinine 1.27 H, E stim Creat Clear Calc 29.64 L, Est GFR (MDRD) Non-Af 40 L, BUN/Creatinine Ratio 16.1, Glucose 130 H, Lactic Acid 1.6, Calcium 9.5, Total Bilirubin 0.20, AST 25, ALT 20, Alkaline Phosphatase 75, Troponin T High Sens 27 H, Total Protein 6.1, Albumin 3.6, Globulin 2.5, Albumin/Globulin Ratio 1.4 Rhythm Strip Rhythm Strip: Sinus Rhythm Rate: 60 Ectopy: None Imaging Radiology Impression Chest X-Ray 05/13/25 13:23 IMPRESSION: Stable pleural-parenchymal changes at the left lung base suggestive of atelectasis and small left pleural effusion. Calcified right infrahilar lymph node. Reading Location: [id number] Assessment & Plan Assessment/Plan (1) Debility: PLAN: Plan Patient is an 89-year-old female who presented to [facility] ED on 05/13/2025 with worsening weakness and debility. 1. Acute on chronic debility in setting of advanced Alzheimer's dementia ? Admit under observation status to [facility]. PT/OT/case management consulted. Lives at home with , has private drug and alcohol counsellor 5 days/week. Was apparently able to go up and down a few steps at home with assistance but over the past few days has been unable to do that. A&Ox1 to person only at baseline. Unclear etiology for worsened debility. Appreciate therapy recommendations. Continue home donepezil, memantine, modafinil and ropinirole. 2. Mild creatinine elevation ? Creatinine 1.27 on admit, baseline 0.9-1.1. Suspect mild elevation secondary to recent Bactrim use for UTI as well as possibly due to mild dehydration. Given IV fluids on admit, follow-up a.m. BMP and monitor urine output. 3. Recent UTI ? Recent ED visit on 05/05 for altered mental status and UA was infectious appearing. Urine culture grew greater than 100,000 Klebsiella sensitive to Bactrim. Repeat UA on this admission appears much improved. No need for further antibiotics. 4. Mild chronic iron deficiency anemia with history of GI bleed, history of GERD ? Hemoglobin 10.8, stable baseline. Continue home iron supplement. Continue home PPI. 5. Type 2 diabetes mellitus ? Glucose 130 on admit. A1c 6.5%. Will treat with sliding scale insulin with meals while inpatient. 6. Hypertension/hyperlipidemia ? Normotensive to mildly hypertensive on admit. Holding home ramipril given mild creatinine elevation as above. Continue home aspirin and statin. 7. Exocrine pancreatic insufficiency ? Continue home Creon. DVT prophylaxis: Heparin subcu CODE STATUS: DNR-CCA, DNI Expected disposition: TBD Total clinical time spent by myself addressing the patient's medical issues, reviewing all the data, and collaborating with patient's care team: 81 minutes. Charges/Coding Visit Charges Inpatient E&M: 33479 Init Hosp L3
[2025-05-13] MEDS: 0.9% Normal Saline (1000mL) 1,000 ML 150 ML IV (16:24)
[2025-05-13 16:37] LABS: Red Blood Cells-Urine 0-5 SEEN /hpf (0-5); Transitional Epithelial - Ur 0-5 SEEN /hpf (0-5)
[2025-05-13 17:10] LABS: Troponin T High Sens 2 HR 28 ng/L (<=14)
--- NOTE | 2025-05-13 17:38 | NURSING ---
aware POA is requesting all 4 side rails to be in the up position, discussed w/ concern with all rails up. discussed Bedexit, pt on camera monitor and close to nurses' station. continues to insist that pt being a&ox0 needs all 4 side rails. discussed with smokehouse operator.
[2025-05-13 18:41] LABS: Troponin T High Sens 4 HR 29 ng/L (<=14)
[2025-05-13] MEDS: Creon 12,000 unit DR CapSULE 1 CAP PO (18:53)
[2025-05-13] MEDS: Creon 24,000 unit DR Capsule 1 CAP PO (18:59)
[2025-05-13] MEDS: Heparin Injection (Vial) 5,000 UNIT/ML VIAL 5000 UNIT SC (20:16)
[2025-05-13] MEDS: Memantine Hydrochloride 10 MG Tablet PO (20:16)
[2025-05-13] MEDS: MELATONIN 3 MG TABLET PO (20:20)
[2025-05-13] MEDS: Creon 24,000 unit DR Capsule 3 CAP PO (20:22)
[2025-05-14 00:45] VITALS: BP 118/78; PULSE 72; RESP 18; TEMP 36.6; O2SAT 96
[2025-05-14 05:41] VITALS: BP 132/62; PULSE 61; RESP 18; TEMP 36.4; O2SAT 96
--- NOTE | 2025-05-14 07:27 | PN.HOSP_ITS ---
Reason for Visit Chief Complaint: Weakness Subjective Subjective Patient is an 89-year-old lady with history of dementia with recent diagnosis of UTI brought to the emergency department with progressive generalized weakness Objective Data Objective Data Vital Signs: Vital Signs Temp Pulse Resp BP Pulse Ox O2 Del Method 97.6 F L 61 18 132/62 H 96 Room Air 05/14/25 05:41 05/14/25 05:41 05/14/25 05:41 05/14/25 05:41 05/14/25 05:41 05/14/25 05:41 Oxygen Delivery Method Room Air Weight: 74.117 kg Body Mass Index (BMI) 30.3 Intake & Output: Intake and Output for Last 24 Hours 05/12/25 05/13/25 05/14/25 23:59 23:59 23:59 Intake Total 1500 / 1500 Output Total 700 / 700 500 / 500 Balance 800 / 800 -500 / -500 Lab / Micro Data 05/14/25 07:14 05/14/25 07:14 Labs: Laboratory Results - last 24 hr 05/13/25 14:24: WBC 7.5, RBC 3.41 L, Hgb 10.8 L, Hct 32.5 L, MCV 95.3, MCH 31.7, MCHC 33.2, RDW Std Deviation 45.0 H, RDW Coeff of Marcio 12.8, Plt Count 181, MPV 10.4, Immature Gran % (Auto) 0.700, Neut % (Auto) 61.5, Lymph % (Auto) 24.0, Isabella % (Auto) 9.5, Eos % (Auto) 2.8, Baso % (Auto) 1.5 H, Absolute Neuts (auto) 4.6, Absolute Lymphs (auto) 1.80, Nucleated RBC % 0, Sodium 134, Potassium 5.0, Chloride 103, Carbon Dioxide 23.5, Anion Gap 8, BUN 21 H, Creatinine 1.27 H, E stim Creat Clear Calc 29.64 L, Est GFR (MDRD) Non-Af 40 L, BUN/Creatinine Ratio 16.1, Glucose 130 H, Hemoglobin A1c 6.5 H, Lactic Acid 1.6, Calcium 9.5, Total Bilirubin 0.20, AST 25, ALT 20, Alkaline Phosphatase 75, Troponin T High Sens 27 H, Total Protein 6.1, Albumin 3.6, Globulin 2.5, Albumin/Globulin Ratio 1.4 05/13/25 15:11: Urine Color Straw, Urine Clarity Clear, Urine pH 6.5, Ur Specific Sophia 1.010, Urine Protein Negative, Urine Glucose (UA) Normal, Urine Ketones Negative, Urine Occult Blood 10 H, Urine Nitrite Negative, Urine Bilirubin Negative, Urine Urobilinogen Normal, Ur Leukocyte Esterase Negative, Urine RBC 0-5 SEEN, Urine WBC 0-5 SEEN, Ur Squamous Epith Cells 0 SEEN, Ur Transition Epith Cell 0-5 SEEN, Urine Bacteria 0 SEEN, Urine Mucus 0 SEEN 05/13/25 16:20: Troponin T Hi Sens 2 Hr 28 H 05/13/25 18:01: Troponin T Hi Sens 4Hr 29 H 05/13/25 20:15: POC Glucose 118 H 05/14/25 05:54: POC Glucose 90 Radiography Diagnostic Testing: Radiology Impression Chest X-Ray 05/13/25 13:23 IMPRESSION: Stable pleural-parenchymal changes at the left lung base suggestive of atelectasis and small left pleural effusion. Calcified right infrahilar lymph node. Reading Location: [facility] Rhythm Strip Rhythm Strip: Sinus Rhythm Rate: 60 Ectopy: None Physical Exam Narrative GENERAL: Patient in no apparent distress HEENT: Atraumatic; normocephalic EYES; Anicteric, Normal Conjunctiva NECK; supple, normal thyroid, RESPIRATORY: Diminished to auscultation CARDIOVASCULAR: Regular S1 S2, GI: soft, normoactive bowel sounds, : No Renal angle tenderness; EXTREMITIES: No edema, no clubbing, MUSCULOSKELETAL: no muscle wasting NEURO: Awake; no lateralizing signs. SKIN: No Rash PSYCH; Flat affect Assessment & Plan Assessment/Plan (1) Debility: PLAN: Plan Patient is an 89-year-old lady with history of dementia with recent diagnosis of UTI brought to the emergency department with progressive generalized weakness 1. Physical deconditioning/debility ? Secondary to patient recent UTI. Requested for PT OT eval and social and political studies professor to assist with discharge planning 2. Advanced dementia ? Patient is on donepezil as well as memantine. Did continue in addition to supportive care 3. Dehydration ? Patient was found to have slightly elevated creatinine level on admission managed with IV fluid with subsequent monitoring of electrolyte 4. Recent cystitis with Klebsiella ? Patient was managed appropriately 5. Anemia ? Secondary to chronic disorder monitoring H&H and transfuse if patient becomes symptomatic or hemoglobin falls below 7 6. Diabetes mellitus type 2 ? Patient managed with metformin and glipizide, oral agents held on admission, placed on Accu-Cheks AC and at bedtime with sliding scale coverage 7. GERD ? On PPI 8. Hypertension ? Blood pressure controlled, home medications continued with dose adjustment as needed 9. Exocrine pancreatic insufficiency ? Continue home Creon. 10. Dyslipidemia ?Patient is on statin therapy, continued at home dose 11. Sjogren syndrome ? By history 12. Restless leg syndrome ? Patient is on ropinirole 13. DVT prophylaxis ? Subcu heparin Time spent in the patient's overall evaluation,decision-making process, review of diagnostic data, adjustment of management, discussion with other providers, nursing nursing and ancillary staff involved in patient's care documentation, 36 Minutes Charges/Coding Visit Charges Inpatient E&M: 84225 Subs Hosp L2
[2025-05-14 07:49] LABS: Hematocrit 30.6 % (37-47); Hemoglobin 10.2 g/dL (12.0-15.0); Mean Corp Hgb Conc 33.3 g/dL (32-36); Mean Corpuscular Volume 94.4 fL (81-99); Mean Platelet Vol. 10.7 fl (6.2-12.0); Platelet Count 166 K/mm3 (150-450); RBC Distribution Width CV 12.8 % (11.6-14.6); RBC Distribution Width SD 44.2 fl (35.1-43.9); Red Blood Count 3.24 M/mm3 (4.2-5.4); White Blood Count 6.3 K/mm3 (4.4-11.0)
[2025-05-14 08:00] VITALS: O2SAT 97
[2025-05-14 08:30] VITALS: BP 138/67; PULSE 55; RESP 17; TEMP 36.6; O2SAT 98
[2025-05-14 08:35] LABS: Anion Gap 8 (5-15); BUN 20 mg/dL (4-19); BUN/Creat Ratio 15.3 RATIO (10-20); Calcium,Total 9.1 mg/dL (7.6-11.0); Carbon Dioxide 22.7 mmol/L (21.0-32.0); Chloride 104 mmol/L (98-108); Estimated Creatinine Clearance 28.29 ml/min (50-250); Glucose 103 mg/dL (70-99); Potassium 5.1 mmol/L (3.3-5.1)
[2025-05-14] MEDS: Creon 24,000 unit DR Capsule 4 CAP PO ×3 (09:15→17:36)
[2025-05-14] MEDS: Memantine Hydrochloride 10 MG Tablet PO ×2 (09:15→21:05)
[2025-05-14] MEDS: Cholecalciferol (VIT D3) 25 MCG TABLET (1,000 UNITS) PO (09:15)
[2025-05-14] MEDS: Heparin Injection (Vial) 5,000 UNIT/ML VIAL 5000 UNIT SC ×2 (09:17→21:04)
[2025-05-14] MEDS: Creon 12,000 unit DR CapSULE 1 CAP PO ×3 (10:27→17:36)
--- NOTE | 2025-05-14 12:00 | CASEMGMT ---
ALEKSANDAR LAWRENCE Assessment: ALEKSANDAR LAWRENCE to room for initial transition planning/care coordination assessment. Pt sitting up in chair. sitting in front of pt, visiting w/her. ALEKSANDAR LAWRENCE introduced self and role at [facility], spouse voices understanding and agreeable to participating in assessment. Pt w/hx of dementia. Care providers, pharmacy, and demographics verified. Strata: 3 PCP: Dr Fowler Specialists: Dr Orourke (Podiatry), Dr Adames (GI), Libertad Seo, FRANK (neurology), Dr Vora (ophthalmology) [facility]erred [facility]acy: [facility] Insurance: [facility] A/B, [employer] Prescription Benefit: yes LNOK: , Mat. Daughter and 2 sons. Daughter lives in [place], is W/C bound. One son lives in [place]. The other son lives in [place], [place]. Living Arrangements: Pt lives with her Mat in a split level home with 9 steps to the second floor and 7 steps to the kitchen, bedroom, bathroom, and dining areas all with a handrail. No steps to enter home. provides SBA on the stairs and provides all care for pt, including sponge-bathing & feeding. prepares meals and performs all house hold tasks. Caregiver: [place] [facility] come M-F 9-1:30 PM, which is covered by long-term care insurance. is with pt all other times. Transportation: DME: quad cane, rollator, high rise toilet, pulse oximeter, functioning glucometer w/supplies (checks BS daily), CPAP, has a bathtub lift that is battery operated and able to use it in other areas of the house. Pt mostly furniture walks when in the home. HHC/SNF: Hx of [facility] HHC. No hx of SNF. states he just recently reached out to [facility] & was informed would need a physician's order for HHC. Discussed discharge planning. states he would like to be able to take pt home, If I can, stating pt would need to be able to do a total of 9 + 7 steps. He states she was just SBA on the steps up until about a week ago when she fell on the last step. Pt then fell again yesterday on the last step & squad had to be called to get her off the floor and then pt brought to ED & admitted. He states if she is unable to safely navigate stairs, he would be amenable to her going to a [facility] for care and that he would work on renovations in the home so pt would no longer have to do so many steps. He was made aware of [facility]'s 3 [place] In-patient criteria for SNF benefits, that pt is currently OBS, and if pt goes SNF/ECF, it would be private-pay. voices understanding and states he could afford to do that. He is aware PT/OT evals pending. He mentioned, if pt does go SNF, would need to be on memory care unit. PLAN: TBD. PT/OT evals pending. Sina RICEN RN CM
[2025-05-14 14:15] VITALS: BP 123/67; PULSE 64; RESP 16; TEMP 36.7; O2SAT 95
--- NOTE | 2025-05-14 15:26 | CASEMGMT ---
RENAE Met with patient to complete RENAE form. RENAE form and its content were verbally explained and patient's questions were answered to the best of my ability.? Patient voiced understanding and signed RENAE form.? Patient provided a copy of signed RENAE form and original placed in patient's chart.? Patient had no further questions. Funmi Maki, Discharge Planning Ass
--- NOTE | 2025-05-14 16:17 | CASEMGMT ---
ALEKSANDAR CM into pt room, pt present. Provided with SNF list that was created and noted memory care to facilities who have memory care. Pt states that the plan now is that pt and will go to the pt dtr's home who has a first floor bedroom. He states they have a hospital bed that they are going to get moved there with [employer]. He states this may take a day or two to get organized. He kept list of SNF options and is aware that pt is medically ready for dc. He states that should this take longer, he will be agreeable to a SNF. He would like SW to follow up in the morning. He is aware that [facility] memory care is full at this time.
[2025-05-14 20:30] VITALS: BP 134/55; PULSE 65; RESP 18; TEMP 36.6; O2SAT 99
[2025-05-14] MEDS: MELATONIN 3 MG TABLET PO (20:48)
[2025-05-15 02:20] VITALS: BP 128/53; PULSE 68; RESP 16; TEMP 36.6; O2SAT 96
[2025-05-15 08:39] VITALS: BP 125/92; PULSE 68; RESP 16; TEMP 36.6; O2SAT 94
[2025-05-15] MEDS: Creon 24,000 unit DR Capsule 4 CAP PO ×3 (08:43→16:13)
[2025-05-15] MEDS: Creon 12,000 unit DR CapSULE 1 CAP PO ×3 (08:44→16:13)
[2025-05-15] MEDS: Heparin Injection (Vial) 5,000 UNIT/ML VIAL 5000 UNIT SC ×2 (08:44→20:35)
[2025-05-15] MEDS: Memantine Hydrochloride 10 MG Tablet PO ×2 (08:44→20:35)
[2025-05-15] MEDS: Cholecalciferol (VIT D3) 25 MCG TABLET (1,000 UNITS) PO (08:44)
--- NOTE | 2025-05-15 12:28 | PCM.PN.HOSP ---
Reason for Visit Chief Complaint: Weakness Objective Data Objective Data Vital Signs: Vital Signs Temp Pulse Resp BP Pulse Ox O2 Del Method 97.8 F 68 16 125/92 H 94 Room Air 05/15/25 08:39 05/15/25 08:39 05/15/25 08:39 05/15/25 08:39 05/15/25 08:39 05/15/25 08:53 Oxygen Delivery Method Room Air Weight: 163 lb 5.8 oz Body Mass Index (BMI) 30.3 Intake & Output: Intake and Output for Last 24 Hours 05/13/25 05/14/25 05/15/25 23:59 23:59 23:59 Intake Total 1500 / 1500 240 / 240 Output Total 700 / 700 500 / 950 1500 / 1500 Balance 800 / 800 -500 / -950 -1260 / -1260 Lab / Micro Data 05/14/25 07:14 05/14/25 07:14 Labs: Laboratory Results - last 24 hr 05/14/25 16:20: POC Glucose 147 H 05/14/25 20:43: POC Glucose 165 H 05/15/25 06:38: POC Glucose 121 H 05/15/25 10:59: POC Glucose 213 H Rhythm Strip Rhythm Strip: Sinus Rhythm Rate: 60 Ectopy: None Physical Exam Narrative Seen and examined. Patient has dementia and her is main caregiver. Admitted with generalized weakness and physical debility. Physical exam General: Alert, Oriented x3, Cooperative HEENT: Atraumatic, PERRLA, EOMI, Normocephalic. Oral: No Gingival or Mucosal Lesions/ Ulcerations Neck: Supple, No JVD, Negative Carotid Bruits Chest wall/Lungs: Air entry diminished in bilateral lung bases. No crepitation/rhonchi Cardiovascular: Regular rate and rhythm, Normal S1,S2, systolic murmur Abdomen: Bowel Sounds Present, Soft, Non Tender, Non-Distended : No dysuria. No renal angle tenderness. No suprapubic tenderness. Extremities: No edema, Capillary Refill Less than 3 Seconds Skin: No rashes, No breakdown Musculoskeletal: No Tenderness to Palpation of Joints or Extremities Neurological: Cranial nerves II-XII grossly intact, DTR 2+/4. No acute focal neurological deficit. Psych/Mental Status: Flat affect dementia Assessment & Plan Assessment/Plan (1) Debility: PLAN: Plan Patient is an 89-year-old lady with history of dementia with recent diagnosis of UTI brought to the emergency department with progressive generalized weakness 1. Physical deconditioning/debility ? Secondary to patient recent UTI. Requested for PT OT eval and social sciences chair to assist with discharge planning 05/15: Discussed with the renal case manager. Plan for possible discharge tomorrow. 2. Advanced dementia ? Patient is on donepezil as well as memantine. Continued supportive care. Orientation cues 3. Dehydration ? Patient was found to have slightly elevated creatinine level on admission managed with IV fluid with subsequent monitoring of electrolyte 05/15: Repeat BUN/creatinine 04/08.3. 4. Recent cystitis with Klebsiella ? Patient was managed appropriately 05/15: Recent urine culture shows Klebsiella pneumoniae more than 100,000 colonies on 05/05. 5. Anemia ? Secondary to chronic disorder monitoring H&H and transfuse if patient becomes symptomatic or hemoglobin falls below 7 6. Diabetes mellitus type 2 ? Patient managed with metformin and glipizide, oral agents held on admission, placed on Accu-Cheks AC and at bedtime with sliding scale coverage 05/15: Glucoses controlled 7. GERD ? On PPI 8. Hypertension ? Blood pressure controlled, home medications continued with dose adjustment as needed 9. Exocrine pancreatic insufficiency ? Continue home Creon. 10. Dyslipidemia ?Patient is on statin therapy, continued at home dose 11. Sjogren syndrome Not on active management 12. Restless leg syndrome ? Patient is on ropinirole 13. DVT prophylaxis ? Subcu heparin Microbiology Past 72 Hours 05/13/25 15:11 Blood Culture (Wb) - Right Forearm Blood Culture - Preliminary No growth in 48 hours. 05/13/25 14:24 Blood Culture (Wb) - Right Forearm Blood Culture - Preliminary No growth in 48 hours. Laboratory Results 05/14/25 16:20: POC Glucose 147 H 05/14/25 20:43: POC Glucose 165 H 05/15/25 06:38: POC Glucose 121 H 05/15/25 10:59: POC Glucose 213 H Charges/Coding Visit Charges Inpatient E&M: 92900 Subs Hosp L2
--- NOTE | 2025-05-15 13:45 | CASEMGMT ---
Addendum entered by Julieta Solis 05/15/25 14:12: Pt spouse reports that he will transport at discharge. PETRONA Styles Original Note: Social Work- SW spoke with pt spouse who reports that pt belongings are 75% moved and he has help coming tomorrow to assist with finishing setting up pt area in the home. Pt spouse feels that he will be ready for pt to discharge by supper tomorrow. [place] remains available to follow. PETRONA Styles
[2025-05-15 14:45] VITALS: BP 118/85; PULSE 76; RESP 16; TEMP 36.7; O2SAT 96
[2025-05-15 20:23] VITALS: BP 151/65; PULSE 59; RESP 18; TEMP 36.8; O2SAT 93
[2025-05-15] MEDS: MELATONIN 3 MG TABLET PO (20:35)
[2025-05-16 03:30] VITALS: BP 140/90; PULSE 61; RESP 18; TEMP 36.9; O2SAT 95
[2025-05-16 05:26] LABS: Hematocrit 34.1 % (37-47); Hemoglobin 11.6 g/dL (12.0-15.0); Immature Granulocytes Count 0.060 X10^3/uL (0.0-0.0); Mean Corp Hgb Conc 34.0 g/dL (32-36); Mean Corpuscular Volume 91.9 fL (81-99); Mean Platelet Vol. 9.7 fl (6.2-12.0); NRBC Flagged by Analyzer 0 % (0-5); POSITIVE MORPHOLOGY YES; Platelet Count 172 K/mm3 (150-450); RBC Distribution Width CV 12.4 % (11.6-14.6); RBC Distribution Width SD 41.5 fl (35.1-43.9); Red Blood Count 3.71 M/mm3 (4.2-5.4); White Blood Count 6.8 K/mm3 (4.4-11.0)
[2025-05-16 05:27] LABS: Differential Indicated SCAN CRITERIA MET
[2025-05-16 05:55] LABS: Anion Gap 11 (5-15); BUN 22 mg/dL (4-19); BUN/Creat Ratio 19.4 RATIO (10-20); Calcium,Total 9.7 mg/dL (7.6-11.0); Carbon Dioxide 22.4 mmol/L (21.0-32.0); Chloride 100 mmol/L (98-108); Estimated Creatinine Clearance 33.13 ml/min (50-250); Glucose 136 mg/dL (70-99); Potassium 4.3 mmol/L (3.3-5.1)
[2025-05-16] MEDS: Creon 24,000 unit DR Capsule 4 CAP PO ×3 (07:44→16:00)
[2025-05-16] MEDS: Creon 12,000 unit DR CapSULE 1 CAP PO ×3 (07:44→16:00)
[2025-05-16] MEDS: Cholecalciferol (VIT D3) 25 MCG TABLET (1,000 UNITS) PO (07:45)
[2025-05-16] MEDS: Memantine Hydrochloride 10 MG Tablet PO (07:45)
[2025-05-16] MEDS: Heparin Injection (Vial) 5,000 UNIT/ML VIAL 5000 UNIT SC (07:45)
[2025-05-16 08:03] VITALS: BP 126/73; PULSE 70; RESP 16; TEMP 36.3; O2SAT 99
--- NOTE | 2025-05-16 10:46 | DCINST_ITS ---
Discharge Instructions DC O2, CPAP, BIPAP needs Home O2 Discharge instructions: No Follow Up Care Test Results: Test results from this visit will be discussed in further detail at your follow- up appointment, if applicable. Discharge Plan Admission Admit Date/Time: 05/13/25 16:12 Attending Provider: Dereck Oliveros Primary Care Provider: Mello Fowler Consulting Providers: Louis Sotddard; Santosh Hicks Discharge Orders/Prescriptions Prescriptions: Continued ramipril 5 mg capsule 5 mg PO DAILY omeprazole 40 MG capsule 40 mg PO DAILY Patient Comments: STOMACH metformin 500 MG tablet 500 mg PO DAILY cholecalciferol (vitamin D3) 1,000 UNIT capsule 1,000 unit PO DAILY cinnamon bark 500 MG capsule 1,000 mg PO DAILY rwmkfvyy-nzw-UU-lycopen-lutein 1 EACH tablet 1 ea PO BID memantine 10 mg tablet 10 mg PO BID Patient Comments: TAKE 1 TABLET BY MOUTH TWICE DAILY modafinil 100 mg Tablet 200 mg PO DAILY aspirin 81 mg Tablet,Chewable 81 mg PO BREAKFAST Qty: 30 1RF acetaminophen [Tylenol Extra Strength] 500 mg tablet 500 mg PO BID atorvastatin 40 mg tablet 80 mg PO DAILY donepezil 10 mg tablet 10 mg PO QHS ropinirole 0.5 mg tablet 0.5 mg PO DAILY ferrous gluconate [Ferate] 240 mg (27 mg iron) tablet 240 mg PO DAILY glipizide 2.5 mg tablet 2.5 mg PO BID B12 5,000-100 mcg lozenge 1 dorota sublingual DAILY Creon 36,000-114,000- 180,000 unit capsule,delayed release(DR/EC) 3 cap PO .aqc Qty: 300 11RF Rx Instructions: Take 3 caps with each meal and 1 with snacks. Max 10 caps per day Discontinued nitrofurantoin monohyd/m-cryst 100 mg capsule 100 mg PO Q12 Qty: 10 0RF sulfamethoxazole-trimethoprim 800-160 mg tablet 1 tab PO BID Qty: 14 0RF nitrofurantoin monohyd/m-cryst [Macrobid] 100 mg capsule 100 mg PO BID 7 Days Qty: 14 0RF Rx Instructions: must administer with a meal/food nitrofurantoin macrocrystal 50 mg capsule 50 mg PO DAILY Referrals / Follow Up: Mello Fowler DO [Primary Care Provider, Family Practice] Lenny Gong DO [Med Staff - Data Mining Analyst, Psychiatry] - Within 1 Month Referral Note: dementia, psychosis? Disposition Disposition (needs filled in before D/C Order can be placed): Home, Self Care
--- NOTE | 2025-05-16 14:05 | PCM.DC.SUM ---
Providers Date of Admission: 05/13/25 Date of Discharge: 05/16/25 Primary Care Physician: Dr. Mello Fowler, Reason For Visit: WEAKNESS, MILD BARBRA Diagnosis Discharge Diagnosis (1) Debility: Status: Acute Code(s): R53.81 - Other malaise Plan Patient is an 89-year-old lady with history of dementia with recent diagnosis of UTI brought to the emergency department with progressive generalized weakness 1. Physical deconditioning/debility ? Secondary to patient recent UTI. Requested for PT OT eval and clinical social work aide to assist with discharge planning 05/15: Discussed with the home health care case manager. Plan for possible discharge tomorrow. 2. Advanced dementia ? Patient is on donepezil as well as memantine. Continued supportive care. Orientation cues 06/04: Patient follow-up with psychiatrist Dr. Gong as she has dementia with psychosis. 3. Dehydration ? Patient was found to have slightly elevated creatinine level on admission managed with IV fluid with subsequent monitoring of electrolyte 05/15: Repeat BUN/creatinine 04/08.3. 4. Recent cystitis with Klebsiella ? Patient was managed appropriately 05/15: Recent urine culture shows Klebsiella pneumoniae more than 100,000 colonies on 05/05. 05/16: Patient had completed antibiotics in the past. At this time UA is negative for pyuria, LE and nitrite negative. Patient was on multiple antibiotics in the past, still lingering on home medications, nitrofurantoin and Bactrim DS was show discontinued 5. Anemia ? Secondary to chronic disorder monitoring H&H and transfuse if patient becomes symptomatic or hemoglobin falls below 7 6. Diabetes mellitus type 2 ? Patient managed with metformin and glipizide, oral agents held on admission, placed on Accu-Cheks AC and at bedtime with sliding scale coverage 05/15: Glucoses controlled 7. GERD ? On PPI 8. Hypertension ? Blood pressure controlled, home medications continued with dose adjustment as needed 9. Exocrine pancreatic insufficiency ? Continue home Creon. 10. Dyslipidemia ?Patient is on statin therapy, continued at home dose 11. Sjogren syndrome Not on active management 12. Restless leg syndrome ? Patient is on ropinirole 13. DVT prophylaxis ? Subcu heparin Discharge medication reconciliation done. Discharge follow-up instructions completed. Discharge process discussed with the patient and all questions were answered to patient's satisfaction. Follow with PCP in 1 to 2 weeks. Discharged home Total time spent, exact 35 minutes on discharge meds reconciliation, examination, coordination of care with nurses and ancillary staff, review of imaging and blood test and discussion with the patient on follow-up instructions. Microbiology Past 72 Hours 05/13/25 15:11 Blood Culture (Wb) - Right Forearm Blood Culture - Preliminary No growth in 48 hours. 05/13/25 14:24 Blood Culture (Wb) - Right Forearm Blood Culture - Preliminary No growth in 48 hours. Laboratory Results 05/14/25 16:20: POC Glucose 147 H 05/14/25 20:43: POC Glucose 165 H 05/15/25 06:38: POC Glucose 121 H 05/15/25 10:59: POC Glucose 213 H Medications at Discharge Home Medications omeprazole 40 mg capsule,delayed release 40 mg PO DAILY GERD 01/06/14 cholecalciferol (vitamin D3) 25 mcg (1,000 unit) capsule 1,000 unit PO DAILY supplement 08/28/16 metformin 500 mg tablet 500 mg PO DAILY blood sugar 08/28/16 cinnamon bark 500 mg capsule 1,000 mg PO DAILY supplement 11/30/17 uzvpdekz-tgh-xdggd acid 0.4 mg-lycopene 300 mcg-lutein 250 mcg tablet 1 ea PO BID supplement 12/03/18 memantine 10 mg tablet 10 mg PO BID mental health 09/11/21 ramipril 5 mg capsule 5 mg PO DAILY blood pressure 01/11/22 modafinil 100 mg tablet 200 mg PO DAILY sleepiness 09/16/22 aspirin 81 mg chewable tablet 81 mg PO BREAKFAST #30 tabs 09/20/22 acetaminophen 500 mg tablet (Tylenol Extra Strength) 500 mg PO BID 06/07/23 xrnbwf-rgtfzojt-drzkfoa 36,000-114,000-180,000 unit capsule,delay rel (Creon) 3 cap PO .aqc #300 caps 07/24/24 atorvastatin 40 mg tablet 80 mg PO DAILY 05/13/25 cyanocobalamin (B12)-cobamamide 5,000 mcg-100 mcg sublingual lozenge (B12) 1 dorota sublingual DAILY 05/13/25 donepezil 10 mg tablet 10 mg PO QHS 05/13/25 ferrous gluconate 240 mg (27 mg iron) tablet (Ferate) 240 mg PO DAILY 05/13/25 glipizide 2.5 mg tablet 2.5 mg PO BID 05/13/25 ropinirole 0.5 mg tablet 0.5 mg PO DAILY 05/13/25 Physical Exam Narrative Seen and examined. Patient has dementia and her is main caregiver. Admitted with generalized weakness and physical debility. No acute UTI at this time Physical exam General: Alert, Oriented x3, Cooperative, sometimes intermittent confusion HEENT: Atraumatic, PERRLA, EOMI, Normocephalic. Oral: No Gingival or Mucosal Lesions/ Ulcerations Neck: Supple, No JVD, Negative Carotid Bruits Chest wall/Lungs: Air entry diminished in bilateral lung bases. No crepitation/rhonchi Cardiovascular: Regular rate and rhythm, Normal S1,S2, systolic murmur Abdomen: Bowel Sounds Present, Soft, Non Tender, Non-Distended : No dysuria. No renal angle tenderness. No suprapubic tenderness. Extremities: No edema, Capillary Refill Less than 3 Seconds Skin: No rashes, No breakdown Musculoskeletal: No Tenderness to Palpation of Joints or Extremities Neurological: Cranial nerves II-XII grossly intact, DTR 2+/4. No acute focal neurological deficit. Psych/Mental Status: Flat affect dementia Weight / BMI Weight Weight: 163 lb 5.8 oz Body Mass Index (BMI) 30.3 ABG / Lab / Microbiology Data 05/16/25 05:18 05/16/25 05:18 Laboratory: Laboratory Results - last 24 hr 05/15/25 16:11: POC Glucose 212 H 05/15/25 20:29: POC Glucose 146 H 05/16/25 05:11: POC Glucose 143 H 05/16/25 05:18: WBC 6.8, RBC 3.71 L, Hgb 11.6 L, Hct 34.1 L, MCV 91.9, MCH 31.3, MCHC 34.0, RDW Std Deviation 41.5, RDW Coeff of Marcio 12.4, Plt Count 172, MPV 9.7, Immature Gran % (Auto) 0.900, Neut % (Auto) 50.1, Lymph % (Auto) 34.9, Z[place]ata % (Auto) 9.9, Eos % (Auto) 2.9, Baso % (Auto) 1.3 H, Absolute Neuts (auto) 3.4, Absolute Lymphs (auto) 2.39, Nucleated RBC % 0, Sodium 133, Potassium 4.3, Chloride 100, Carbon Dioxide 22.4, Anion Gap 11, BUN 22 H, Creatinine 1.11, Estim Creat Clear Calc 33.13 L, Est GFR (MDRD) Non-Af 48 L, BUN/Creatinine Ratio 19.4, Glucose 136 H, Calcium 9.7 05/16/25 11:25: POC Glucose 180 H Microbiology: Microbiology 05/13/25 15:11 Blood Culture (Wb) - Right Forearm Blood Culture - Preliminary No growth in 48 hours. 05/13/25 14:24 Blood Culture (Wb) - Right Forearm Blood Culture - Preliminary No growth in 48 hours. D/C Instructions DC O2, CPAP, BIPAP Needs Home O2 Discharge instructions: No Meaningful Use Info Meaningful Use Meaningful Use Diagnoses (Choose all that apply): None applicable Discharge Plan Admission Admit Date/Time: 05/13/25 16:12 Attending Provider: Dereck Oliveros Primary Care Provider: Mello Fowler Consulting Providers: Louis Stoddard; Santosh Hicks Discharge Orders/Prescriptions Prescriptions: Continued ramipril 5 mg capsule 5 mg PO DAILY omeprazole 40 MG capsule 40 mg PO DAILY Patient Comments: STOMACH metformin 500 MG tablet 500 mg PO DAILY cholecalciferol (vitamin D3) 1,000 UNIT capsule 1,000 unit PO DAILY cinnamon bark 500 MG capsule 1,000 mg PO DAILY fjopwhzq-iag-RZ-lycopen-lutein 1 EACH tablet 1 ea PO BID memantine 10 mg tablet 10 mg PO BID Patient Comments: TAKE 1 TABLET BY MOUTH TWICE DAILY modafinil 100 mg Tablet 200 mg PO DAILY aspirin 81 mg Tablet,Chewable 81 mg PO BREAKFAST Qty: 30 1RF acetaminophen [Tylenol Extra Strength] 500 mg tablet 500 mg PO BID atorvastatin 40 mg tablet 80 mg PO DAILY donepezil 10 mg tablet 10 mg PO QHS ropinirole 0.5 mg tablet 0.5 mg PO DAILY ferrous gluconate [Ferate] 240 mg (27 mg iron) tablet 240 mg PO DAILY glipizide 2.5 mg tablet 2.5 mg PO BID B12 5,000-100 mcg lozenge 1 dorota sublingual DAILY Creon 36,000-114,000- 180,000 unit capsule,delayed release(DR/EC) 3 cap PO .aqc Qty: 300 11RF Rx Instructions: Take 3 caps with each meal and 1 with snacks. Max 10 caps per day Discontinued nitrofurantoin monohyd/m-cryst 100 mg capsule 100 mg PO Q12 Qty: 10 0RF sulfamethoxazole-trimethoprim 800-160 mg tablet 1 tab PO BID Qty: 14 0RF nitrofurantoin monohyd/m-cryst [Macrobid] 100 mg capsule 100 mg PO BID 7 Days Qty: 14 0RF Rx Instructions: must administer with a meal/food nitrofurantoin macrocrystal 50 mg capsule 50 mg PO DAILY Referrals / Follow Up: Mello Fowler DO [Primary Care Provider, Family Practice] Lenny Gong DO [Med Staff - Insurance Verification Representative, Psychiatry] - Within 1 Month Referral Note: dementia, psychosis? Disposition Disposition (needs filled in before D/C Order can be placed): Home, Self Care Charges/Coding Visit Charges Inpatient E&M: 68643 Disch Hosp >30min
[2025-05-16 15:00] VITALS: BP 128/77; PULSE 70; RESP 18; TEMP 36.6; O2SAT 97
--- NOTE | 2025-05-16 16:00 | CASEMGMT ---
Social Work- SW called pt spouse to advise that d/c is in and pt can be transported at any time. Pt spouse reports that he is on his way in. PHOENIX updated bedside nurse. PETRONA Styles
== END 2025-05-16 16:34 | disposition home or self-care (01) ==
LOC: ED 13:39 → MS3 16:47
PROVIDERS: Internal Medicine; Admitting Provider Hospitalist; Emergency Provider Emergency Medicine; PCP Family Medicine; Visit Provider Internal Medicine
DX: R53.1 Weakness (principal); G30.9 Alzheimer's disease, unspecified; F02.80 Dementia in other diseases classified elsewhere, unspecified severity, without behavioral disturbance, psychotic disturbance, mood disturbance, and anxiety; E11.22 Type 2 diabetes mellitus with diabetic chronic kidney disease; N18.30 Chronic kidney disease, stage 3 unspecified; N30.90 Cystitis, unspecified without hematuria; N17.9 Acute kidney failure, unspecified; Z79.82 Long term (current) use of aspirin; R26.2 Difficulty in walking, not elsewhere classified; Z79.84 Long term (current) use of oral hypoglycemic drugs; R53.81 Other malaise; B96.1 Klebsiella pneumoniae [K. pneumoniae] as the cause of diseases classified elsewhere; E86.0 Dehydration; D63.1 Anemia in chronic kidney disease; K21.9 Gastro-esophageal reflux disease without esophagitis; I12.9 Hypertensive chronic kidney disease with stage 1 through stage 4 chronic kidney disease, or unspecified chronic kidney disease; Z79.899 Other long term (current) drug therapy; I44.0 Atrioventricular block, first degree; D50.9 Iron deficiency anemia, unspecified; K86.89 Other specified diseases of pancreas; Z66 Do not resuscitate
CPT/HCPCS: 99285; 36415; 71045; 80048; 80053; 81001; 82962; 83036; 83605; 84484; 85025; 85027; 87040; 93005; 94668; 97116; 97162; 97167; 97530; 97535; 97802; P9612; A4216

== ENCOUNTER 2025-05-16 19:16 | Observation (INO) | payer MEDICARE, OTHER, SELFPAY ==
[2025-05-16 19:18] VITALS: BP 118/62; PULSE 76; RESP 13; TEMP 36.7; O2SAT 95; O2SAT 96; BMI 28.1
--- OUTSIDE RECORDS SUMMARY | 2025-05-16 19:53 | XMS RPT_ITS | CCD ---
Author Organization [facility] Care Team Providers Care Senior Contracts Manager Name Role Phone Dr. Clinton Fowler Primary Care Provider [phone] Dr. Eduin Blair Attending Provider Dr. Maura Lauren Emergency Provider Dr. Foreign Paredes Admit Provider Dr. Foreign Paredes Other Provider Dr. Isa Verma Attending Provider [phone] Isa Verma Other Provider Dr. Clinton Fowler Referring Provider [phone] Hung Adames Attending Provider [phone] Dr. Moncho Thomas Emergency Provider [phone] Estrella Buckner Admit Provider Dr. Estrella Buckner Other Provider Dr. Foreign Paredes Attending Provider [phone] Maria D Chawla Other Provider Dr. Gera Corbett Attending Provider Dr. Clinton Fowler Primary Care Provider [phone] Dr. Clinton Fowler Referring Provider Dr. Hung Adames Attending Provider [phone] Moncho Thomas Emergency Provider Dr. Estrella [...] Care Provider Dr. Clinton Fowler Referring Provider Rafael REDUCER, REDUCER-C Inessa Thomas Attending Provider [phone] Dr. Hung Adames Attending Provider LIBERTAD WHITTAKER Attending Unavailable LIBERTAD WHITTAKER Attending Unavailable Clinton Fowler DO Primary Care Provider Dr. Clinton Fowler DO Primary Care Provider Dr. Clinton Fowler DO Referring Provider Dr. Hung Adames DO Attending Provider Dr. Clinton Fowler DO Attending Provider [phone] Antonio BRAUN, Dr. Henson Referring Provider [phone] Antonio BRAUN, Dr. Henson Emergency Provider [phone] Antonio BRAUN, Dr. Henson Attending Provider [phone] Dorie BRAUN, Dr. Saavedra Emergency Provider LIBERTAD WHITTAKER Attending Unavailable LIBERTAD WHITTAKER S Referring Unavailable DANYCLINTON SHERWOOD A Primary Care Unavailable KittoSantosh thomas Attending Unavailable Dany, Clinton Primary Care Unavailable Mostisaias, Louis Admitting Unavailable Mosteller, Louis Consulting Unavailable Kittoe, Santosh Consulting Unavailable eller, Louis Attending Unavailable Domo, Dereck Attending Unavailable Domo, Dereck Consulting Unavailable Davian REDUCER, Libertad S Attending Unavailab le Dany, Clinton Primary Care Unavailable Dany, Clinton Primary Care Unavailable Dany, Clinton Attending Unavailable Dany, Clinton Primary Care Unavailable Dany, Clinton Attending Unavailable Dany, Clinton Primary Care Unavailable Mosteller, Louis Consulting Unavailable Mosteller, Louis Admitting Unavailable Domo, Dereck Attending Unavailable Kittoe, Santosh Consulting Unavailable Dany, Clinton Primary Care Unavailable Alex Saha Attending Unavailable Dany, Clinton Primary Care Unavailable Quentin Oshea Attending Unavailable Dany, Clinton Primary Care Unavailable SchwigerSixto Referring Unavailable SchwSixto barnes Attending Unavailable Dany, Clinton Primary Care Unavailable Nikita Alvarado Attending Unavailable Friend, Hung Attending Unavailable Dany, Clinton Referring Unavailable Dany, Clinton Primary Care Unavailable FriendHung Attending Unavailable Dany, Clinton Primary Care Unavailable Dany, Clinton Referring Unavailable Allergies Allergy Classification Reported Allergen(s) Allergy Type Date of Onset Reaction(s) Facility (10 sources) Pollen Allergy to substance 3 PT UNSURE OF REACTION [facility] (1 source) Pollen Drug allergy (disorder) 5 [facility] Repository Medications Current Medications Medication Drug Class(es) [...] mouth. Active aspirin 81 mg chewable tablet (13 sources) Platelet Aggregation Inhibitor, Nonsteroidal Anti-inflammatory Drug [...] Active 80 mg PO AT BEDTIME 30 December 03, 2017 12:00am cholesterol Start: 01-08-2014 End: 12-03-2017 Atorvastatin 80 MG tablet Discontinued 40 mg PO AT BEDTIME 30 0 January 08, 2014 12:00am December 03, 2017 11:01am Start: 01-08-2014 End: 12-03-2017 take 40 mg by mouth at bedtime Atorvastatin Discontinu ed 40 MG PO AT BEDTIME January 08, 2014 12:00am December 03, 2017 11:01am cholecalciferol 0.025 mg oral capsule (20 sources) Vitamin D Start: 08-28-2016 take 1 capsule by mouth once daily Cholecalciferol (Vitamin D3) 1,000 UNIT capsule Active 1000 U PO DAILY August 28, 2016 1:00am supplement cholecalciferol (Vitamin D-3) 25 mcg (1,000 units) capsule Take 1 capsule (1,000 Units) by mouth. Active qbys-ucdnx-QNA-epf-gynsvdk-k ea 100 mg-100 mcg- 100 mg-100 mg capsule (1 source) webe-qgoah-DCB-g nw-meimjlz-tgl 100 mg-100 mcg- 100 mg-100 mg capsule once every 24 hours. Active cinnamon bark 500 mg oral ca psule (19 sources) Star t: 11-13 take 1 capsule by mouth once daily Cinnamon Bark 500 MG capsule Active 1000 mg PO DAILY November 30, 2017 12:00am supplement Start: 11-30-2017 take 1000 mg by mouth once jarrod ly Cinnamon Bark Active 1000 MG PO DAILY November 30, 2017 12:00am donepezil hydrochloride 10 m g oral tablet (20 sources) Start: 01-21-2024 donepezil (Ben cept) 10 mg tablet Take 1 tablet (10 mg) by mouth. 01/21/2024 Active Start: 08-28-2016 take 2 tablets by mo ut at bedtime Donepezil 5 MG tablet Active [...] 2022 11:00pm glipiZIDE 5 mg oral tablet (11 sources) Sulfonylurea Start: 01-12-2023 take 2.5 mg [...] 11:00pm memantine hydrochloride 10 mg oral tablet (20 sources) O-jbyfcv-T-aspart ate Receptor Antagonist Start: 09-11-2021 take 1 tablet by mouth twice daily Memantine 10 mg tablet Active 10 mg PO TWICE A DAY September 11, 2021 1:00am mental health metFORMIN hydrochloride 500 mg oral tablet (20 sources) Biguanide Start: 08-28-2016 take 1 tablet by mouth once daily Metformin 500 MG tablet Active 500 mg PO DAILY August 28, 2016 1:00am blood sugar modafinil 100 mg oral tablet (18 sources) Sympathomimetic-l charisse Agent Start: 09-16-2022 take [...] MG PO DAILY September 11, 2021 12:00am Rgilqfhz-Ons-Up-Lycopen-Lute in (15 sources) Start: 12-03-2018 Hqsasihl-Das-Vl-Lycopen-Lute in Active 1 EACH PO TWICE A DAY December 02, 2018 11:00pm Start: 12-03-2018 Hvmzzgjs-Pcs-C x-Dfsbxqq-Gcpqmp Active 1 EACH PO TWICE A DAY December 03, 2018 12:00am Akfwswrm-Fnr-Zz-Lycopen-Lute in 1 EACH tablet (4 sources) Start: 12-03-2018 Yfvrqznw-Ajj-Do-Lycopen-Lute in 1 EACH tablet Active 1 NMA PO TWICE A DAY December 03, 2018 12:00am supplement Start: 12-03-2018 Lyfkudcn-Ouo-U b-Tfjykmg-Wpbtwb 1 EACH tablet Active 1 NMA PO TWICE A DAY December 03, 2018 12:00am nitrofurantoin, macrocrystals 25 mg / nitrofurantoin, monohydrate 75 mg oral capsule (7 sources) Nitrofuran Antibacterial Start: 03-30-2025 take 1 capsule by mouth twice daily at mealtime Nitrofurantoin Monohyd/M-Cryst (Macrobid) 100 mg capsule Active 100 mg PO TWICE A DAY 14 7 0 March 30, 2025 12:00am must administer with a meal/food Start: 06-28-2024 End: 02-22-2025 take 1 capsule by mouth every twelve hours Nitrofurantoin Monohyd/M-Cryst 100 mg capsule Active 100 mg PO EVERY 12 HOURS 10 0 February 22, 2025 5:51pm omeprazole 40 mg delayed release oral capsule (20 sources) Proton Pump Inhibitor Start: 01-06-2014 take [...] primary doctor rOPINIRole 0.5 mg oral tablet (20 sources) Nonergot Dopamine Agonist Start: 07-20-2023 take 1 tablet by mouth once rOPINIRole (Requip) 0.5 mg tablet 1 tab(s) orally once a day(HS ) 07/20/2023 Active Start: 01-11-2022 take 2 tablets by mo ut at bedtime Ropinirole 0.25 mg tablet Active [...] mg / clavulanate 125 mg oral tablet (6 sources) Penicillin-class Antibacterial Start: 06-03-2023 End: 06-10-2023 Amoxicillin-Pot Clavulanate (Augmentin) 500-125 mg tablet Discontinued 1 {tbl} PO TWICE A DAY 14 7 0 June 03, 2023 1:00am June 09, 2023 1:00am June 10, 2023 1:04am On Hold: only take if needed amylase [id number] unt / lipase [id number] unt / protease [id number] unt delayed release oral capsule (20 sources) Start: 08-28-2022 End: 07-24-2024 Jgpjir-Xevsqvpb-Fp ylase (Creon) 36,000-114,000- 180,000 unit capsule,delayed release(DR/EC) Discontinued 0 PO .COMPLEX 160 2 July 02, 2023 11:42am July 24, 2024 5:16pm supplement take 1-2 with snacks and 2-3 with meals Ascorbic Acid (20 sources) Vitamin C Start: 06-08-2019 End: 06-07-2023 [...] Start: 06-08-2019 take 1 tablet by morris twice daily Vitamin C Active 1 TABLET PO TWICE A DAY June 08, 2019 12:00am Start: 06-08-2019 take 1 tablet by [facility] [place] twice daily Vitamin C Active 1 TABLET PO TWICE A DAY June 08, 2019 1:00am ascorbic acid (V itamin C) 500 mg chewable tablet Chew 1 tablet (500 mg) once daily. Active budesonide 3 mg delayed release oral capsule (10 sources) Corticosteroid Start: 12-05-2022 End: 01-12-2023 take 1 capsule by mouth twice daily Budesonide 3 mg capsule,delayed,extend.release Discontinued 3 mg PO TWICE A DAY 60 December 05, 2022 12:00am January 12, 2023 12:26pm cephalexin 500 mg oral capsule (20 sources) Cephalosporin Antibacterial Start: 01-16-2024 End: 01-23-2024 take 1 capsule by mouth every eight hours Cephalexin 500 mg capsule Discontinued 500 mg PO Q8H 21 7 January 16, 2024 12:00am January 22, 2024 12:00am January 23, 2024 12:05am Start: 07-21-2020 End: 07-21-2020 take 1 capsule by mouth three times daily Cephalexin 500 mg capsule Discontinued 500 mg PO THREE TIMES A DAY July 21, 2020 1:00am July 21, 2020 5:45pm clopidogrel 75 mg oral tablet (20 sources) P2Y12 Platelet Inhibitor Start: 12-03-2017 End: 01-14-2023 take 1 tablet by mouth once daily Clopidogrel 75 MG tablet Discontinued 75 mg PO DAILY 30 December 03, 2017 12:00am January 14, 2023 1:39pm colestipol hydrochloride 1000 mg oral tablet (20 sources) Bile Acid Sequestrant Start: 11-02-2022 End: 01-12-2023 Colestipol 1 gram tablet Discontinued 2 g PO TWICE A DAY 120 November 02, 2022 9:19am January 12, 2023 12:26pm Start: 11-02-2022 End: 01-12-2023 take 2 g by mouth twice daily Colestipol Discontinued 2 GM PO TWICE A DAY November 02, 2022 9:19am January 12, 2023 12:26pm Start: 10-13-2022 End: 10-31-2022 Colestipol 1 gram tablet Dis continued 1 g PO TWICE A DAY 60 11 October 13, 2022 12:00am October 31, 2022 3:00pm doxycycline hyclate 100 mg oral capsule (20 sources) Tetracycline-class Drug Start: 10-31-2022 End: 01-12-2023 take 1 capsule by mouth twice daily Doxycycline Hyclate 100 mg capsule Discontinued 100 mg PO TWICE A DAY 60 0 December 05, 2022 10:56am January 12, 2023 12:27pm erythromycin 0.005 mg/mg ophthalmic ointment (19 sources) Macrolide, Macrolide Antimicrobial Start: 11-30-2017 End: [...] (2 mg) by mouth once daily. Active Zobmyg-Odnwrnee-Xcyqjmg (Bib pep) 40,000-126,000- 168,000 unit capsule,delayed release(DR/EC) (17 sources) Start: 08-23-2022 End: 08-28-2022 Aimoxj-Odscrqpv-Ephjshq (Zenpep) 40,000-126,000- 168,000 unit capsule,delayed release(DR/EC) Discontinued 0 PO .COMPLEX 320 August 23, 2022 1:00am August 28, 2022 5:28pm take 1-2 with snacks and 2-3 with meals Start: 08-23-2022 End: 08-28-2022 Leuwwm-Dquokkfl-Oazdhde (Bib pep) 40,000-126,000- 168,000 unit capsule,delayed release(DR/EC) Discontinued 0 PO .COMPLEX 320 August 23, 2022 1:00am August 28, 2022 5:28pm take 1-2 with snacks and 2-3 with meals Start: 08-23-2022 End: 08-28-2022 Cjivyj-Otllygow-Zdbxvuk (Bib pep) 40,000-126,000- 168,000 unit capsule,delayed release(DR/EC) [...] 10:42am naproxen sodium 220 mg oral capsule (19 sources) Nonsteroidal Anti-inflammatory Drug Start: 12-03-2018 End: 01-14-2023 take 1 capsule by mouth twice daily Naproxen Sodium 220 MG capsule Discontinued 220 mg PO TWICE A DAY December 03, 2018 12:00am January 14, 2023 1:39pm pain Problems Active Problems Problem Classification Problem Date Documented Da te Episodic/Chronic Acute cerebrovascular disease (20 sources) Cerebrovascular accident; Translations: [Cerebral infarction, unspecified] 06-26-2019 Chronic Acute posthemorrhagic anemia (14 sources) Acute posthemorrhagic anemia; Translations: [Acute posthemorrhagic anemia] 01-13-2023 Episodic Chronic kidney disease (19 sources) Chronic kidney disease stage 3; Translations: [Stage 3 chronic kidney disease] 03-03-2019 Chronic Conditions associated with dizziness or vertigo (19 sources) Vertigo; Translations: [Dizziness and giddiness] 12-03-2018 Episodic Deficiency and other anemia (19 sources) Anemia due to blood loss; Translations: [Iron deficiency anemia secondary to blood loss (chronic)] 09-20-2021 Chronic Deficiency and other anemia (20 sources) Chronic anemia; Translations: [Anemia, unspecified] 03-03-2019 Episodic Deficiency and other anemia (10 sources) Anemia; Translations: [Anemia, unspecified] 01-12-2023 Episodic Deficiency and other anemia (2 sources) Anemia, unspecified; Translations: [Anemia, unspecified] 01-14-2023 Episodic Delirium, dementia, and amnestic and other cognitive disorders (20 sources) Dementia; Translations: [Unspecified dementia without behavioral disturbance] Onset: 5 Chronic Diabetes mellitus with complications (20 sources) Neuropathy due to diabetes mellitus; Translations: [Type 2 diabetes mellitus with diabetic neuropathy, unspecified] Onset: 5 12-03-2018 Chronic Diabetes mellitus without complication (20 sources) Type 2 diabetes mellitus; Translations: [Type 2 diabetes mellitus without complications] Chronic Diabetes mellitus without complication (20 sources) Hyperglycemia; Translations: [Hyperglycemia, unspecified] 09-16-2022 Episodic Disorders of lipid metabolism (19 sources) Hyperlipidemia; Translations: [Hyperlipidemia, unspecified] 12-03-2018 Chronic E Codes: Fall (20 sources) Fall; Translations: [Unspecified fall, initial encounter] 07-17-2019 Episodic Esophageal disorders (19 sources) Gastroesophageal reflux disease; Translations: [Gastro-esophageal reflux disease without esophagitis] 08-10-2022 Chronic Gastrointestinal hemorrhage (20 sources) Gastrointestinal hemorrhage; Translations: [Gastrointestinal hemorrhage, unspecified] 01-12-2023 Episodic Malaise and fatigue (17 sources) Asthenia; Translations: [Weakness] Onset: 01-12-2023 Episodic Nausea and vomiting (19 sources) Nausea and vomiting; Translations: [Nausea with vomiting, unspecified] 08-10-2022 Episodic Open wounds of extremities (20 sources) Tear of skin; Translations: [Laceration without foreign body of unspecified elbow, initial encounter] 06-09-2019 Episodic Open wounds of head; neck; and trunk (19 sources) Laceration of forehead; Translations: [Laceration without foreign body of other part of head, initial encounter] 09-20-2021 Episodic Other connective tissue disease (19 sources) Hand pain; Translations: [Pain in right hand] 07-15-2019 Episodic Other connective tissue disease (19 sources) Fibromyalgia; Translations: [Fibromyalgia] 12-03-2018 Episodic Other connective tissue disease (18 sources) Neurological symptom; Translations: [Unspecified symptoms and signs involving the nervous system] 06-24-2022 Episodic Other connective tissue disease (7 sources) Unspecified symptoms and signs involving the nervous system; Translations: [Other symptoms involving nervous and musculoskeletal systems] Episodic Other ear and sense organ disorders (19 sources) Hearing disorder; Translations: [Unspecified hearing loss, unspecified ear] 12-03-2018 Chronic Other endocrine disorders (20 sources) Hypoglycemia; Translations: [Hypoglycemia, unspecified] 06-24-2022 Chronic Other endocrine disorders (7 sources) Hypoglycemia, unspecified; Translations: [Hypoglycemia, unspecified] Chronic Other gastrointestinal disorders (19 sources) Constipation; Translations: [Constipation, unspecified] 03-04-2019 Episodic Other gastrointestinal disorders (20 sources) Loose stool; Translations: [Other fecal abnormalities] 08-10-2022 Episodic Other gastrointestinal disorders (7 sources) Other fecal abnormalities; Translations: [Abnormal feces] 08-10-2022 Episodic Other gastrointestinal disorders (11 sources) Diarrhea; Translations: [Diarrhea, unspecified] 10-23-2022 Episodic Other injuries and conditions due to external causes (19 sources) Local infection of wound; Translations: [Other injury of unspecified body region, initial encounter] 09-22-2021 Episodic Other injuries and conditions due to external causes (20 sources) Injury of head; Translations: [Unspecified injury of head, initial encounter] 09-20-2021 Episodic Other lower respiratory disease (7 sources) Cough; Translations: [Cough] 06-03-2023 Episodic Other nervous system disorders (19 sources) Disorder of brain; Translations: [Encephalopathy, unspecified] 03-03-2019 Chronic Other non-traumatic joint disorders (19 sources) Hip pain; Translations: [Pain in left hip] 07-15-2019 Episodic Other upper respiratory infections (7 sources) Viral upper respiratory tract infection; Translations: [Acute upper respiratory infection, unspecified] 06-03-2023 Episodic Otitis media and related conditions (19 sources) Otosclerosis; 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, unspecified ear] 12-03-2018 Episodic Pancreatic disorders (not diabetes) (16 sources) Exocrine pancreatic insufficiency; 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] 01-12-2023 Episodic Pneumonia (except that caused by tuberculosis or sexually transmitted disease) (19 sources) Pneumonia; Translations: [Pneumonia, unspecified organism] 03-03-2019 Episodic Residual codes; unclassified (19 sources) Sleep apnea; Translations: [Sleep apnea, unspecified] [...] status, unspecified] 06-24-2022 Episodic Residual codes; unclassified (4 sources) Altered mental status, unspecified; Translations: [Altered mental status] Onset: 5 Episodic Residual codes; unclassified (10 sources) Delirium; Translations: [Disorientation, unspecified] 01-12-2023 Episodic [...] Systemic lupus erythematosus and connective tissue disorders (19 sources) Sjogren's syndrome; Translations: [Sicca syndrome, unspecified] 12-03-2018 Chronic Urinary tract infections (20 sources) Urinary tract infectious disease; Translations: [Urinary tract infection, site not specified] 12-03-2018 Episodic Past or Other Problems Problem Classification Problem Date Documented Da te Episodic/Chronic Abdominal pain (20 sources) Nonspecific abdominal pain; Translations: [Unspecified abdominal pain] Onset: 07-23-2024 12-03-2018 Episodic Results Test Name Value Interpretation Reference Range Facility Basic Metabolic Profile (BMP )on 05-16-2025 BUN/CRE 19.4 RATIO Normal 10-20 [facility] Comment on above: Performed By: #### L [id number] #### [facility] [address] [place], [address] Calcium [Mass/Vol] 9.7 mg/dL Normal 7.6-11.0 [facility] Comment on above: Performed By: #### L [id number] #### [facility] [address] [place], [address] Chloride [Moles/Vol] 100 mmol/L Normal 98-108 [facility] Comment on above: Performed By: #### L [id number] #### [facility] [address] [place], [address] CO2 [Moles/Vol] 22.4 mmol/L Normal 21.0-32.0 [facility] Comment on above: Performed By: #### L [id number] #### [facility] [address] [place], [address] Creatinine [Mass/Vol] 1.11 mg/dL Normal 0.70-1.20 [facility] Comment on above: Performed By: #### L [id number] #### [facility] [address] [place], [address] ECRCL 33.13 ml/min Low 50-250 [facility] Comment on above: Performed By: #### L [id number] #### [facility] [address] [place], [address] GAP 11 Normal 5-15 [facility] Comment on above: Performed By: #### L [id number] #### [facility] [address] [place], [address] GFR/1.73 sq M.predicted among non-blacks MDRD (S/P/Bld) [Vol rate/Area] 48 mL/min/{1.73_m2} Low >[address] [facility] Comment on above: Result Comment: mL/m in/1.73m2 CKD-EPI Creatinine Equation (2020) Performed By: #### L [id number] #### [facility] [address] [place], [address] Glucose [Mass/Vol] 136 mg/dL High 70-99 [facility] Comment on above: Performed By: #### L [id number] #### [facility] [address] [place], [address] Potassium [Moles/Vol] 4.3 mmol/L Normal 3.3-5.1 [facility] Comment on above: Performed By: #### L [id number] #### [facility] [address] [place], [address] Sodium [Moles/Vol] 133 mmol/L Normal 133-145 [facility] Comment on above: Performed By: #### L [id number] #### [facility] [address] [place], [address] Urea nitrogen [Mass/Vol] 22 mg/dL High 4-19 [facility] Comment on above: Performed By: #### L [id number] #### [facility] [address] [place], [address] Bedside Glucoseon 05-16-2025 FINGERSTICK GLU 181 mg/dL High 74-106 [facility] Comment on above: Result Comment: IRENE GEMENT OF PATIENT CARE PER NURSING PROTOCOL Performed By: #### L 501.080 #### [facility] [address] [place], [address] FINGERSTICK GLU 180 mg/dL High 74-106 [facility] Comment on above: Result Comment: IRENE GEMENT OF PATIENT CARE PER NURSING PROTOCOL Performed By: #### L 501.080 ####[facility] [address] [place], [address] FINGERSTICK GLU 143 mg/dL High 74-106 [facility] Comment on above: Result Comment: IRENE GEMENT OF PATIENT CARE PER NURSING PROTOCOL Performed By: #### L [id number], M200.1000 #### [facility] [address] [place], [address] CBC W/Diff, Automatedon 11-0 Absolute Lymph 2.39 X10 3/uL Normal 0.83-4.51 [facility] Comment on above: Performed By: #### L [id number] #### [facility] [address] [place], [address] Absolute Neut 3.4 X10 3/uL Normal 2.0-7.7 [facility] Comment on above: Performed By: #### L [id number] #### [facility] [address] [place], [address] Basophils/100 WBC (Bld) 1.3 % High 0-1 [facility] Comment on above: Performed By: #### L [id number] #### [facility] [address] [place], [address] Eosinophils/100 WBC (Bld) 2.9 % Normal 0-5 [facility] Comment on above: Performed By: #### L [id number] #### [facility] [address] [place], [address] Erythrocyte distribution width (RBC) [Ratio] 12.4 % Normal 11.6-14.6 [facility] Comment on above: Performed By: #### L [id number] #### [facility] [address] [place], [address] Hematocrit (Bld) [Volume fraction] 34.1 % Low 37-47 [facility] Comment on above: Performed By: #### L [id number] #### [facility] [address] [place], [address] Hemoglobin (Bld) [Mass/Vol] 11.6 g/dL Low 12.0-15. 0 [facility] Comment on above: Performed By: #### L [id number] #### [facility] [address] [place], [address] IG% 0.900 Normal 0.0-0.9 [facility] Comment on above: Result Comment: IG% - Immature Granulocytes (promyelocytes, myelocytes and metamyelocytes) > 1% indicates that a LEFT SHIFT is Present. Performed By: #### L [id number] #### [facility] [address] [place], [address] Lymphocytes/100 WBC (Bld) 34.9 % Normal 19-41 [facility] Comment on above: Performed By: #### L [id number] #### [facility] [address] [place], [address] MCH (RBC) [Entitic mass] 31.3 pg Normal 27.0-32.0 [facility] [facility] Comment on above: Performed By: #### L 400.0001 #### [facility] [address] [place], [address] MCHC (RBC) [Mass/Vol] 34.0 g/dL Normal 32-36 [facility] Comment on above: Performed By: #### L 400.0001 #### [facility] [address] [place], [address] MCV (RBC) [Entitic vol] 91.9 fL Normal 81-99 [facility] Comment on above: Performed By: #### L 400.0001 #### [facility] [address] [place], [address] Monocytes/100 WBC (Bld) 9.9 % Normal 0-10 [facility] Comment on above: Performed By: #### L 400.0001 #### [facility] [address] [place], [address] Neutrophils/100 WBC (Bld) 50.1 % Normal 47-70 [facility] Comment on above: Performed By: #### L 400.0001 #### [facility] [address] [place], [address] Nucleated RBC (Bld) [#/Vol] 0 10*3/uL Normal 0-5 [facility] Comment on above: Performed By: #### L 400.0001 #### [facility] [address] [place], [address] Platelet mean volume (Bld) [Entitic vol] 9.7 fL Normal 6.2-12.0 [facility] Comment on above: Performed By: #### L 400.0001 #### [facility] [address] [place], [address] Platelets (Bld) [#/Vol] 172 10*3/uL Normal 150-450 [facility] Comment on above: Performed By: #### L 400.0001 #### [facility] [address] [place], [address] RBC (Bld) [#/Vol] 3.71 10*6/uL Low 4.2-5.4 [facility] Comment on above: Performed By: #### L 400.0001 #### [facility] [address] [place], [address] RDW SD 41.5 fl Normal 35.1-43.9 [facility] Comment on above: Performed By: #### L 400.0001 #### [facility] [address] [place], [address] WBC (Bld) [#/Vol] 6.8 10*3/uL Normal 4.4-11.0 [facility] Comment on above: Performed By: #### L 400.0001 #### [facility] [address] [place], [address] Discharge Instructionon 11-0 Discharge Instruction [facility] Medical Records Department [address] [place] [address] Instructions for Home/Discharge Instructions 05/16/25 1046 MR#: [id number] Acct: [id number] Name: HANCOCKLIZA J Rep #: [id number] : 1935 89 From: Dereck Oliveros MD PCP: Dr. Clinton Fowler, DO Status:ADM TARA Discharge Instructions DC O2, CPAP, BIPAP needs Home O2 Discharge instructions: No Follow Up Care Test Results: Test results from this visit will be discussed in further detail at your follow-up appointment, if applicable. Discharge Plan Admission Admit Date/Time: 05/13/25 16:12 Attending Provider: Dereck Oliveros Primary Care Provider: Clinton Fowler Consulting Providers: Louis Stoddard; Santosh Hicks Discharge Orders/Prescriptions Prescriptions: Continued ramipril 5 mg capsule 5 mg PO DAILY omeprazole 40 MG capsule 40 mg PO DAILY Patient Comments: STOMACH metformin 500 MG tablet 500 mg PO DAILY cholecalciferol (vitamin D3) 1,000 UNIT capsule 1,000 unit PO DAILY cinnamon bark 500 MG capsule 1,000 mg PO DAILY eihjgcvk-qun-XB-lycop en-lutein 1 EACH tablet 1 ea PO BID memantine 10 mg tablet 10 mg PO BID Patient Comments: TAKE 1 TABLET BY MOUTH TWICE DAILY modafinil 100 mg Tablet 200 mg PO DAILY aspirin 81 mg Tablet,Chewable 81 mg PO BREAKFAST Qty: 30 1RF acetaminophen [Tylenol Extra Strength] 500 mg tablet 500 mg PO BID atorvastatin 40 mg tablet 80 mg PO DAILY donepezil 10 mg tablet 10 mg PO QHS ropinirole 0.5 mg tablet 0.5 mg PO DAILY ferrous gluconate [Ferate] 240 mg (27 mg iron) tablet 240 mg PO DAILY glipizide 2.5 mg tablet 2.5 mg PO BID B12 5,000-100 mcg lozenge 1 dorota sublingual DAILY Creon 36,000-114,000- 180,000 unit capsule,delayed release(DR/EC) 3 cap PO .aqc Qty: 300 11RF Rx Instructions: Take 3 caps with each meal and 1 with snacks. Max 10 caps per day Discontinued nitrofurantoin monohyd/m-cryst 100 mg capsule 100 mg PO Q12 Qty: 10 0RF sulfamethoxazole-trim ethoprim 800-160 mg tablet 1 tab PO BID Qty: 14 0RF nitrofurantoin monohyd/m-cryst [Macrobid] 100 mg capsule 100 mg PO BID 7 Days Qty: 14 0RF Rx Instructions: must administer with a meal/food nitrofurantoin macrocrystal 50 mg capsule 50 mg PO DAILY Referrals / Follow Up: Clinton Fowler DO [Primary Care Provider, Family Practice] Lenny Gong DO [Med Staff - Transplant Registered Nurse, Psychiatry] - Within 1 Month Referral Note: dementia, psychosis? Disposition Disposition (needs filled in before D/C Order can be placed): Home, Self Care 05/16/25 1405 Dereck Oliveros MD CC: Dr. Louis Stoddard, DO; Dr. Santosh Hicks MD; Dr. Clinton Fowler DO Signed Normal [facility] Bedside Glucoseon 05-15-2025 FINGERSTICK GLU 146 mg/dL High 74-106 [facility] Comment on above: Result Comment: IRENE GEMENT OF PATIENT CARE PER NURSING PROTOCOL Performed By: #### L 501.4021, M200.1000 #### [facility] [address] [place], [address] FINGERSTICK GLU 212 mg/dL High 74-106 [facility] Comment on above: Result Comment: IRENE GEMENT OF PATIENT CARE PER NURSING PROTOCOL Performed By: #### L 501.080 #### [facility] [address] [place], [address] FINGERSTICK GLU 213 mg/dL High 74-106 [facility] Comment on above: Result Comment: IRENE GEMENT OF PATIENT CARE PER NURSING PROTOCOL Performed By: #### L 400.0001 #### [facility] [address] [place], [address] FINGERSTICK GLU 121 mg/dL High 74-106 [facility] Comment on above: Result Comment: IRENE GEMENT OF PATIENT CARE PER NURSING PROTOCOL Performed By: #### L 501.4021, M200.1000 #### [facility] [address] [place], [address] Culture, Blood (WB)on 2024 CUB Blood cultures x2, from two different sites No growth in 48 hours. Normal [facility] Comment on above: Performed By: #### L 501.4021, M200.1000 #### [facility] [address] [place], [address] Performed By: #### M 200.1000 ####[facility] [address] [place], [address] Basic Metabolic Profile (BMP )on 05-14-2025 BUN/CRE 15.3 RATIO Normal 10-20 [facility] Comment on above: Performed By: #### L 500.2500, L100.0500 ####[facility] [address] [place], [address] Calcium [Mass/Vol] 9.1 mg/dL Normal 7.6-11.0 [facility] Comment on above: Performed By: #### L 500.2500, L100.0500 ####[facility] [address] [place], [address] Chloride [Moles/Vol] 104 mmol/L Normal 98-108 [facility] Comment on above: Performed By: #### L 500.2500, L100.0500 ####[facility] [address] [place], [address] CO2 [Moles/Vol] 22.7 mmol/L Normal 21.0-32.0 [facility] Comment on above: Performed By: #### L 500.2500, L100.0500 ####[facility] [address] [place], [address] Creatinine [Mass/Vol] 1.30 mg/dL High 0.70-1.20 [facility] Comment on above: Performed By: #### L 500.2500, L100.0500 ####[facility] [address] [place], [address] ECRCL 28.29 ml/min Low 50-250 [facility] Comment on above: Performed By: #### L 500.2500, L100.0500 ####[facility] [address] [place], [address] GAP 8 Normal 5-15 [facility] Comment on above: Performed By: #### L 500.2500, L100.0500 ####[facility] [address] [place], [address] GFR/1.73 sq M.predicted among non-blacks MDRD (S/P/Bld) [Vol rate/Area] 39 mL/min/{1.73_m2} Low >[address] [facility] Comment on above: Result Comment: mL/m in/1.73m2 CKD-EPI Creatinine Equation (2020) Performed By: #### L 500.2500, L100.0500 ####[facility] [address] [place], [address] Glucose [Mass/Vol] 103 mg/dL High 70-99 [facility] Comment on above: Performed By: #### L 500.2500, L100.0500 ####[facility] [address] [place], [address] Potassium [Moles/Vol] 5.1 mmol/L Normal 3.3-5.1 [facility] Comment on above: Result Comment: Hemo lysis present, Results??could be affected. ?? Performed By: #### L 500.2500, L100.0500 ####[facility] [address] [place], [address] Sodium [Moles/Vol] 134 mmol/L Normal 133-145 [facility] Comment on above: Performed By: #### L 500.2500, L100.0500 ####[facility] [address] [place], [address] Urea nitrogen [Mass/Vol] 20 mg/dL High 4-19 [facility] Comment on above: Performed By: #### L 500.2500, L100.0500 ####[facility] [address] [place], [address] Bedside Glucoseon 05-14-2025 FINGERSTICK GLU 165 mg/dL High 74-106 [facility] Comment on above: Result Comment: IRENE PANDEY OF PATIENT CARE PER NURSING PROTOCOL Performed By: #### L 501.4021, M200.1000 #### [facility] [address] [place], [address] FINGERSTICK GLU 147 mg/dL High 74-106 [facility] Comment on above: Result Comment: IRENE GEMENT OF PATIENT CARE PER NURSING PROTOCOL Performed By: #### L 501.080 ####[facility] [address] [place], [address] FINGERSTICK GLU 107 mg/dL High 74-106 [facility] Comment on above: Result Comment: IRENE GEMENT OF PATIENT CARE PER NURSING PROTOCOL Performed By: #### L 501.4021, M200.1000 #### [facility] [address] [place], [address] FINGERSTICK GLU 90 mg/dL Normal 74-106 [facility] Comment on above: Result Comment: IRENE GEMENT OF PATIENT CARE PER NURSING PROTOCOL Performed By: #### L 501.4021, M200.1000 #### [facility] [address] [place], [address] CBC-Complete Blood Cnt No Di ffon 05-14-2025 Erythrocyte distribution width (RBC) [Ratio] 12.8 % Normal 11.6-14.6 [facility] Comment on above: Performed By: #### L 500.2500, L100.0500 ####[facility] [address] [place], [address] Hematocrit (Bld) [Volume fraction] 30.6 % Low 37-47 [facility] Comment on above: Performed By: #### L 500.2500, L100.0500 ####[facility] [address] [place], [address] Hemoglobin (Bld) [Mass/Vol] 10.2 g/dL Low 12.0-15. 0 [facility] Comment on above: Performed By: #### L 500.2500, L100.0500 ####[facility] [address] [place], [address] MCH (RBC) [Entitic mass] 31.5 pg Normal 27.0-32.0 [facility] Comment on above: Performed By: #### L 500.2500, L100.0500 ####[facility] [address] [place], [address] MCHC (RBC) [Mass/Vol] 33.3 g/dL Normal 32-36 [facility] Comment on above: Performed By: #### L 500.2500, L100.0500 ####[facility] [address] [place], [address] MCV (RBC) [Entitic vol] 94.4 fL Normal 81-99 [facility] Comment on above: Performed By: #### L 500.2500, L100.0500 ####[facility] [address] [place], [address] Platelet mean volume (Bld) [Entitic vol] 10.7 fL Normal 6.2-12.0 [facility] Comment on above: Performed By: #### L 500.2500, L100.0500 ####[facility] [address] [place], [address] Platelets (Bld) [#/Vol] 166 10*3/uL Normal 150-450 [facility] Comment on above: Performed By: #### L 500.2500, L100.0500 ####[facility] [address] [place], [address] RBC (Bld) [#/Vol] 3.24 10*6/uL Low 4.2-5.4 [facility] Comment on above: Performed By: #### L 500.2500, L100.0500 ####[facility] [address] [place], [address] RDW SD 44.2 fl High 35.1-43.9 [facility] Comment on above: Performed By: #### L 500.2500, L100.0500 ####[facility] [address] [place], [address] WBC (Bld) [#/Vol] 6.3 10*3/uL Normal 4.4-11.0 [facility] Comment on above: Performed By: #### L 500.2500, L100.0500 ####[facility] [address] [place], [address] 12 Lead EKGon 05-13-2025 12 Lead EKG [facility] Cardiovascular Services [address] [place] [address] 12 Lead EKG 05/13/25 1334 MR#: [id number] Acct: [id number] Name: LIZA HANCOCK Rep #: [id number] : 1935 89 From: Gera Corbett MD Attending Dr: Dr. Dereck Oliveros MD Status: ADM TARA Ordering Dr: Nikita Alvarado MD Date: 05/13/25 Location: [facility] Sex: F C Admitted: 05/13/25 Test Reason : UTI Blood Pressure : */* mmHG Vent. Rate : 60 BPM Atrial Rate : 60 BPM P-R Int : 234 ms QRS Dur : 72 ms QT Int : 400 ms P-R-T Axes : 60 -18 42 degrees QTcB Int : 400 ms Sinus rhythm with 1st degree A-V block Otherwise normal ECG Confirmed by ADAIR CANTOR, GERA ([id number]), sound editor JUDD UMANA ([id number]) on 05/15/2025 9:59:12 AM Referred By: [place] Confirmed By: GERA CORBETT MD 05/15/25 0959 Date Gera Corbett MD CC: Dr. Nikita Alvarado MD; Dr. Clinton Fowler DO; Dr. Dereck Oliveros MD Signed Normal [facility] Bedside Glucoseon 05-13-2025 FINGERSTICK GLU 118 mg/dL High 74-106 [facility] Comment on above: Result Comment: IRENE PANDEY OF PATIENT CARE PER NURSING PROTOCOL Performed By: #### L 501.4021, M200.1000 #### [facility] [address] [place], [address] CBC W/Diff, Automatedon 04-16 Absolute Lymph 1.80 X10 3/uL Normal 0.83-4.51 [facility] Comment on above: Performed By: #### L 501.4021, M200.1000 #### [facility] [address] [place], [address] Absolute Neut 4.6 X10 3/uL Normal 2.0-7.7 [facility] Comment on above: Performed By: #### L 501.4021, M200.1000 #### [facility] [address] [place], [address] Basophils/100 WBC (Bld) 1.5 % High 0-1 [facility] Comment on above: Performed By: #### L 501.4021, M200.1000 #### [facility] [address] [place], [address] Eosinophils/100 WBC (Bld) 2.8 % Normal 0-5 [facility] Comment on above: Performed By: #### L 501.4021, M200.1000 #### [facility] [address] [place], [address] Erythrocyte distribution width (RBC) [Ratio] 12.8 % Normal 11.6-14.6 [facility] Comment on above: Performed By: #### L 501.4021, M200.1000 #### [facility] [address] [place], [address] Hematocrit (Bld) [Volume fraction] 32.5 % Low 37-47 [facility] Comment on above: Performed By: #### L 501.4021, M200.1000 #### [facility] [address] [place], [address] Hemoglobin (Bld) [Mass/Vol] 10.8 g/dL Low 12.0-15. 0 [facility] Comment on above: Performed By: #### L 501.4021, M200.1000 #### [facility] [address] [place], [address] IG% 0.700 Normal 0.0-0.9 [facility] Comment on above: Result Comment: IG% - Immature Granulocytes (promyelocytes, myelocytes and metamyelocytes) > 1% indicates that a LEFT SHIFT is Present. Performed By: #### L 501.4021, M200.1000 #### [facility] [address] [place], [address] Lymphocytes/100 WBC (Bld) 24.0 % Normal 19-41 [facility] Comment on above: Performed By: #### L 501.4021, M200.1000 #### [facility] [address] [place], [address] MCH (RBC) [Entitic mass] 31.7 pg Normal 27.0-32.0 [facility] Comment on above: Performed By: #### L 501.4021, M200.1000 #### [facility] [address] [place], [address] MCHC (RBC) [Mass/Vol] 33.2 g/dL Normal 32-36 [facility] Comment on above: Performed By: #### L 501.4021, M200.1000 #### [facility] [address] [place], [address] MCV (RBC) [Entitic vol] 95.3 fL Normal 81-99 [facility] Comment on above: Performed By: #### L 501.4021, M200.1000 #### [facility] [address] [place], [address] Monocytes/100 WBC (Bld) 9.5 % Normal 0-10 [facility] Comment on above: Performed By: #### L 501.4021, M200.1000 #### [facility] [address] [place], [address] Neutrophils/100 WBC (Bld) 61.5 % Normal 47-70 [facility] Comment on above: Performed By: #### L 501.4021, M200.1000 #### [facility] [address] [place], [address] Nucleated RBC (Bld) [#/Vol] 0 10*3/uL Normal 0-5 [facility] Comment on above: Performed By: #### L 501.4021, M200.1000 #### [facility] [address] [place], [address] Platelet mean volume (Bld) [Entitic vol] 10.4 fL Normal 6.2-12.0 [facility] Comment on above: Performed By: #### L 501.4021, M200.1000 #### [facility] [address] [place], [address] Platelets (Bld) [#/Vol] 181 10*3/uL Normal 150-450 [facility] Comment on above: Performed By: #### L 501.4021, M200.1000 #### [facility] [address] [place], [address] RBC (Bld) [#/Vol] 3.41 10*6/uL Low 4.2-5.4 [facility] Comment on above: Performed By: #### L 501.4021, M200.1000 #### [facility] [address] [place], [address] RDW SD 45.0 fl High 35.1-43.9 [facility] Comment on above: Performed By: #### L 501.4021, M200.1000 #### [facility] [address] [place], [address] WBC (Bld) [#/Vol] 7.5 10*3/uL Normal 4.4-11.0 [facility] Comment on above: Performed By: #### L 501.4021, M200.1000 #### [facility] [address] [place], [address] Chest 1 View (Portable)on Chest 1 View (Portable) [facility] Imaging Services [address] [place] [address] Chest 1 View (Portable) MR#: [id number] Acct: [id number] Name: LIZA HANCOCK Rep #: [id number] : 1935 F 89 From: Alex ramsey MD PCP: Dr. Clinton Fowler DO Status: REG ER Study: Chest 1 View (Portable) Date of Exam: 05/13/25 Exam# [id number] Ordering Dr: Nikita Alvarado MD PROCEDURE: CHEST 1 VIEW (PORTABLE) 05/13/2025 REASON FOR EXAM: WEAKNESS TECHNIQUE: Frontal view of the chest. COMPARISON: May 05, 2025. FINDINGS: Hardware: None Heart: Borderline cardiomegaly. Calcification of the aortic arch. Lungs: Stable pleural-parenchymal changes at the left lung base. Calcified right infrahilar lymph node. Bones: Degenerative changes are identified within the thoracic spine. RAD/Chest 1 View (Portable) IMPRESSION: Stable pleural-parenchymal changes at the left lung base suggestive of atelectasis and small left pleural effusion. Calcified right infrahilar lymph node. Reading Location: [id number] CC: Dr. Nikita Alvarado MD; Dr. Clinton Fowler DO Bilingual Executive Assistant: Signed Normal [facility] Comprehensive Metabolic Prof ilon 05-13-2025 Albumin [Mass/Vol] 3.6 g/dL Normal 3.4-4.8 [facility] Comment on above: Performed By: #### L 501.4021, M200.1000 #### [facility] [address] [place], [address] Albumin/Globulin [Mass ratio] 1.4 {ratio} Normal 0.9-2.4 [facility] Comment on above: Performed By: #### L 501.4021, M200.1000 #### [facility] [address] [place], [address] ALK PHOS 75 U/L Normal 35-104 [facility] Comment on above: Performed By: #### L 501.4021, M200.1000 #### [facility] [address] [place], [address] ALT [Catalytic activity/Vol] 20 U/L Normal <=34 [facility] Comment on above: Performed By: #### L 501.4021, M200.1000 #### [facility] [address] [place], [address] AST [Catalytic activity/Vol] 25 U/L Normal <=31 [facility] Comment on above: Performed By: #### L 501.4021, M200.1000 #### [facility] [address] [place], [address] Bilirubin [Mass/Vol] 0.20 mg/dL Normal 0.00-1.30 [facility] Comment on above: Performed By: #### L 501.4021, M200.1000 #### [facility] [address] [place], [address] BUN/CRE 16.1 RATIO Normal 10-20 [facility] Comment on above: Performed By: #### L 501.4021, M200.1000 #### [facility] [address] [place], [address] Calcium [Mass/Vol] 9.5 mg/dL Normal 7.6-11.0 [facility] Comment on above: Performed By: #### L 501.4021, M200.1000 #### [facility] [address] [place], [address] Chloride [Moles/Vol] 103 mmol/L Normal 98-108 [facility] Comment on above: Performed By: #### L 501.4021, M200.1000 #### [facility] [address] [place], [address] CO2 [Moles/Vol] 23.5 mmol/L Normal 21.0-32.0 [facility] Comment on above: Performed By: #### L 501.4021, M200.1000 #### [facility] [address] [place], [address] Creatinine [Mass/Vol] 1.27 mg/dL High 0.70-1.20 [facility] Comment on above: Performed By: #### L 501.4021, M200.1000 #### [facility] [address] [place], [address] ECRCL 29.64 ml/min Low 50-250 [facility] Comment on above: Performed By: #### L 501.4021, M200.1000 #### [facility] [address] [place], [address] GAP 8 Normal 5-15 [facility] Comment on above: Performed By: #### L 501.4021, M200.1000 #### [facility] [facility] [address] [place], [address] GFR/1.73 sq M.predicted among non-blacks MDRD (S/P/Bld) [Vol rate/Area] 40 mL/min/{1.73_m2} Low >[address] [facility] Comment on above: Result Comment: mL/m in/1.73m2 CKD-EPI Creatinine Equation (2020) Performed By: #### L 501.4021, M200.1000 #### [facility] [address] [place], [address] Globulin (S) [Mass/Vol] 2.5 g/dL Normal 2.2-4.2 [facility] Comment on above: Performed By: #### L 501.4021, M200.1000 #### [facility] [address] [place], [address] Glucose [Mass/Vol] 130 mg/dL High 70-99 [facility] Comment on above: Performed By: #### L 501.4021, M200.1000 #### [facility] [address] [place], [address] Potassium [Moles/Vol] 5.0 mmol/L Normal 3.3-5.1 [facility] Comment on above: Performed By: #### L 501.4021, M200.1000 #### [facility] [address] [place], [address] Sodium [Moles/Vol] 134 mmol/L Normal 133-145 [facility] Comment on above: Performed By: #### L 501.4021, M200.1000 #### [facility] [address] [place], [address] T PROT 6.1 g/dL Normal 5.9-8.4 [facility] Comment on above: Performed By: #### L 501.4021, M200.1000 #### [facility] [address] [place], [address] Urea nitrogen [Mass/Vol] 21 mg/dL High 4-19 [facility] Comment on above: Performed By: #### L 501.4021, M200.1000 #### [facility] [address] [place], [address] Emergency Department Summary on 05-13-2025 Emergency Department Summary [facility] Medical Records Department [address] [place] [address] Emergency Department Summary 05/13/25 MR#: [id number] Acct: [id number] Name: LIZA HANCOCK Rep #: [id number] : 1935 89 From: Nikita Alvarado MD PCP: Dr. Clinton Fowler, DO Status:REG ER Location: ED HPI History of Present Illness Chief Complaint: Abd Pain Informant: patient, spouse/S.O. and EMS Onset/Context/Timing Onset: Days (3) Context: Gradual Onset Timing: Continuous Quality: weak Location: all over Narrative Narrative: Patient is an 89-year-old female with a history of dementia presenting with weakness and inability to ambulate. She is accompanied by a caregiver who is providing history on her behalf. - Diagnosed with a UTI 5-6 days ago and started on antibiotics. - Reports groin pain and progressive weakness, now unable to stand or walk independently. - Has not been able to go up and down stairs for the past 3 days; previously able to do so 2-3 times daily. - Denies emesis, dyspnea, or recent falls. - No known injuries; denies fever, with a recorded temperature of 98.2???F at home. - Caregiver notes a possible missed antibiotic dose. [facility] Medical History GERD (gastroesophageal reflux disease) TIA [...] supplement 01/11/23 History mcg (1,000 unit) capsule metformin 500 mg tablet 500 mg PO DAILY blood sugar 01/11/23 History cinnamon bark 500 mg capsule 1,000 mg PO DAILY supplement 11/3001/11/23 History ojnbouha-awg-aqzbo acid 0.4 1 ea PO BID supplement 12/03/18 History mg-lycopene 300 mcg-lutein 250 mcg tablet memantine 10 mg tablet 10 mg PO BID mental health 2 01/11/23 History ramipril 5 mg capsule 5 mg PO DAILY blood pressure 01/1101/11/23 History modafinil 100 mg tablet 200 mg PO DAILY sleepiness 3 01/11/23 History aspirin 81 mg chewable tablet 81 mg PO BREAKFAST #30 tabs 01/11/23 Rx acetaminophen 500 mg tablet 500 mg PO BID 06/07/23 Unknown His tory (Tylenol Extra Strength) xijarh-riymuzkp-llpdb se 3 cap PO .aqc #300 caps 07/24/24 U nknown Rx 36,000-114,000-180,00 0 unit capsule,delay rel (Creon) nitrofurantoin 100 mg PO Q12 #10 CAPSULES 5 Unknown Rx monohydrate/macrocrys tals 100 mg capsule Held on 05/13/25. Instructions: while treating uti nitrofurantoin 100 mg PO BID 7 days #14 caps 03/16 12/07 Unknown Rx monohydrate/macrocrys tals 100 mg capsule (Macrobid) Held on 05/13/25. Instructions: while treating uti sulfamethoxazole 800 1 tab PO BID #14 TABLETS 05/07/25 Unknown Rx mg-trimethoprim 160 mg tablet atorvastatin 40 mg tablet 80 mg PO DAILY 05/13/25 Unknown Hi story cyanocobalamin (B12)-cobamamide 1 dorota sublingual DAILY 05/13/25 Un known History 5,000 mcg-100 mcg sublingual lozenge (B12) donepezil 10 mg tablet 10 mg PO QHS 05/13/25 Unknown Hist ory ferrous gluconate 240 mg (27 mg 240 mg PO DAILY 05/13/25 Unknown H istory iron) tablet (Ferate) glipizide 2.5 mg tablet 2.5 mg PO BID 05/13/25 Unknown His tory nitrofurantoin macrocrystal 50 mg 50 mg PO DAILY 05/13/25 Unknown H istory capsule Held on 05/13/25. Instructions: while treating uti ropinirole 0.5 mg tablet 0.5 mg PO DAILY 05/13/25 Unknown H istory Allergy/AdvReac Type Severity Reaction Status Date / Time pollen extracts Allergy Intermediate PT UNSURE Verified 05/13/25 12:59 OF REACTION Family History Mother Alzheimer disease Brother Alzheimer disease Aunt Alzheimer disease Father Heart disease Surgical History H/O lumpectomy H/O: hysterectomy History of tonsillectomy Social History ... Normal [facility] H AND P Exam - Hospitaliston 05-13-2025 H&P Exam - Hospitalist [facility] Medical Records Department [address] [place] [address] H P Exam - Hospitalist 05/13/25 1558 MR#: [id number] Acct: [id number] Name: LIZA HANCOCK Rep #: [id number] : 1935 89 From: Louis Stoddard DO PCP: Dr. Clinton Fowler, DO Status:ADM TARA Location: [facility] SN494-6 HPI - General General Date of Admission: 05/13/25 Date of Service: 05/13/25 Chief Complaint: Weakness HPI Narrative LIZA HANCOCK, is a 89 F who presented to [facility] ED on 05/13/2025 with worsening weakness. Medical history significant for Alzheimer's dementia (alert and oriented x 1 to person only at baseline). She lives at home with her and they have a private caregiver who comes in 5 days/week from 9am-2pm. She was recently seen in the ED here on 05/05 for altered mental status. It was suspected this was secondary to UTI and she was sent home on Bactrim. She has completed 5 to 6 days worth of the antibiotic course. notes that patient has had worsening weakness and has been unable to stand or walk independently for the past 1 to 2 days. He notes that she was previously able to go up and down a few steps at home prior to a few days ago. In the ED patient was afebrile and otherwise hemodynamically stable. She was mildly agitated and unsure of where she was but she was able to give her name; notes this is about her baseline. BMP with creatinine 1.27, mildly up from baseline 0.9-1.1. CBC and BMP were otherwise benign. Given her worsening weakness and inability to ambulate, hospitalist was contacted for admission. I saw the patient at bedside in the ED, present. Patient was unable to provide any history for me. reiterated the above information to me. He notes that patient has not required SNF placement in the past and he would much prefer her to go home if possible. Will be admitted for further management. [facility] Medical History GERD (gastroesophageal reflux disease) [...] supplement 01/11/23 History mcg (1,000 unit) capsule metformin 500 mg tablet 500 mg PO DAILY blood sugar 01/11/23 History cinnamon bark 500 mg capsule 1,000 mg PO DAILY supplement 11/3001/11/23 History rvptyyub-bjc-ddoqw acid 0.4 1 ea PO BID supplement 12/03/18 History mg-lycopene 300 mcg-lutein 250 mcg tablet memantine 10 mg tablet 10 mg PO BID mental health 2 01/11/23 History ramipril 5 mg capsule 5 mg PO DAILY blood pressure 01/1101/11/23 History modafinil 100 mg tablet 200 mg PO DAILY sleepiness 3 01/11/23 History aspirin 81 mg chewable tablet 81 mg PO BREAKFAST #30 tabs 01/11/23 Rx acetaminophen 500 mg tablet 500 mg PO BID 06/07/23 Unknown His tory (Tylenol Extra Strength) oozwid-pphcgdmy-dwfgx se 3 cap PO .aqc #300 caps 07/24/24 U nknown Rx 36,000-114,000-180,00 0 unit capsule,delay rel (Creon) nitrofurantoin 100 mg PO Q12 #10 CAPSULES 5 Unknown Rx monohydrate/macrocrys tals 100 mg capsule Held on 05/13/25. Instructions: while treating uti nitrofurantoin 100 mg PO BID 7 days #14 caps 03/16 12/07 Unknown Rx monohydrate/macrocrys tals 100 mg capsule (Macrobid) Held on 05/13/25. Instructions: while treating uti sulfamethoxazole 800 1 tab PO BID #14 TABLETS 05/07/25 Unknown Rx mg-trimethoprim 160 mg tablet atorvastatin 40 mg tablet 80 mg PO DAILY 05/13/25 Unknown Hi story cyanocobalamin (B12)-cobamamide 1 dorota sublingual DAILY 05/13/25 Un known History 5,000 mcg-100 mcg sublingual lozenge (B12) donepezil 10 mg tablet 10 mg PO QHS 05/13/25 Unknown Hist ory ferrous gluconate 240 mg (27 mg 240 mg PO DAILY 05/13/25 Unknown H istory iron) tablet (Ferate) glipizide 2.5 mg tablet 2.5 mg PO BID 05/13/25 Unknown His tory nitrofurantoin macrocryst (more content not included)... Normal [facility] Hemoglobin A1con 05-13-2025 HbA1c (Bld) [Mass fraction] 6.5 % High <=5.6 [facility] Comment on above: Order Comment: Comme nts: ok to add on Result Comment: Norm al < 5.7 % Prediabetic 5.7 - 6.4 % Diabetic >or= 6.5 % Please note range changes. Performed By: #### L 501.4021, M200.1000 #### [facility] [address] [place], [address] L501.4021on 05-13-2025 Trop T High Sen 27 ng/L High <=14 [facility] Comment on above: Performed By: #### L 501.4021, M200.1000 #### [facility] [address] [place], [address] Lactic Acidon 05-13-2025 Lactate [Moles/Vol] 1.6 mmol/L Normal 0.0-2.0 [facility] Comment on above: Order Comment: Y Performed By: #### L 501.4021, M200.1000 #### [facility] [address] [place], [address] Troponin T HS 2 HRon 025 Trop T High Sen 28 ng/L High <=14 [facility] Comment on above: Performed By: #### L 501.4021, M200.1000 #### [facility] [address] [place], [address] Troponin T HS 4 HRon 025 Trop T High Sen 29 ng/L High <=14 [facility] Comment on above: Performed By: #### L 499.0043 ####[facility] [address] [place], [address] Urinalysis, Completeon 05-13 EPI,TRANSITION 0-5 SEEN Normal 0-5 [facility] Comment on above: Order Comment: CLEAN CATCH Performed By: #### L 501.4021, M200.1000 #### [facility] [address] [place], [address] RBC 0-5 SEEN Normal 0-5 [facility] Comment on above: Order Comment: CLEAN CATCH Performed By: #### L 501.4021, M200.1000 #### [facility] [address] [place], [address] WBC 0-5 SEEN Normal 0-5 [facility] Comment on above: Order Comment: CLEAN CATCH Performed By: #### L 501.4021, M200.1000 #### [facility] [address] [place], [address] BACTERIA 0 SEEN Normal None Seen [facility] Comment on above: Order Comment: CLEAN CATCH Performed By: #### L 501.4021, M200.1000 #### [facility] [address] [place], [address] EPI,SQUAMOUS 0 SEEN Normal 5-10 [facility] Comment on above: Order Comment: CLEAN CATCH Performed By: #### L 501.4021, M200.1000 #### [facility] [address] [place], [address] Mucus Ql (Urine sed) 0 SEEN Normal [facility] Comment on above: Order Comment: CLEAN CATCH Performed By: #### L 501.4021, M200.1000 #### [facility] [address] [place], [address] Urine Cultureon 05-07-2025 [facility] Klebsiella pneumonia e sp pneum Gonzales Count >100,000 Klebsiella pneumoniae sp pneum: REACTION Ampicillin Islt JIMI >=32 Ampicillin+Sulbac Islt JIMI 4 S Cefepime Islt JIMI <=0.12 S cefTRIAXone Islt JIMI <=0.25 S Ciprofloxacin Islt JIMI 0.5 I B-Lactamase Extended Susc Islt NEG Gentamicin Islt JIMI <=1 S levoFLOXacin Islt JIMI 1 I Meropenem Islt JIMI <=0.25 S Nitrofurantoin Islt JIMI 128 R Pip+Tazo Islt JIMI 8 S TMP SMX Islt JIMI <=20 S Normal [facility] Comment on above: Performed By: #### L 501.4021, M200.1000 #### [facility] [address] [place], [place], [id number] 12 Lead EKGon 05-05-2025 12 Lead EKG [facility] Cardiovascular Services [address] [place] [address] 12 Lead EKG 05/05/25 1147 MR#: [id number] Acct: [id number] Name: LIZA HANCOCK Rep #: [id number] : 1935 89 From: Gerald Hagan MD Attending Dr: Status: DEP ER Ordering Dr: Alex Saha MD Date: 05/05/25 Location: ED Sex: F C Admitted: Test Reason : GENERAL Blood Pressure : */* mmHG Vent. Rate : 55 BPM Atrial Rate : 55 BPM P-R Int : 274 ms QRS Dur : 74 ms QT Int : 430 ms P-R-T Axes : 94 -22 42 degrees QTcB Int : 411 ms Sinus bradycardia with 1st degree A-V block Low voltage QRS Borderline ECG Confirmed by Gerald Hagan ([id number]), sound editor WESLEY JOHN ([id number]) on 05/06/2025 1:41:34 PM Referred By: Confirmed By: Gerald Hagan 05/06/25 1341 Date Gerald Hagan MD CC: Dr. Alex Saha MD; Dr. Clinton Fowler DO Signed Normal [facility] Brain/Head without Contrasto n 05-05-2025 Brain/Head without Contrast [facility] Imaging Services [address] [place] [address] Brain/Head without Contrast MR#: [id number] Acct: [id number] Name: LIZA HANCOCK Rep #: [id number] : 1935 F 89 From: Froilan Dillon MD PCP: Dr. Clinton Fowler DO Status: REG ER Study: Brain/Head without Contrast Date of Exam: 04/16 08/09 Exam# [id number] Ordering Dr: Alex Saha MD EXAM: NONCONTRAST CT SCAN OF THE HEAD CLINICAL HISTORY: Trauma, mental status change COMPARISON: March 30, 2025 TECHNIQUE: Serial axial series through the head were obtained without contrast. 2-D coronal and sagittal reformats were then obtained. FINDINGS: Brain: There is no acute large territorial infarct, intracranial hemorrhage, midline shift or mass effect. There are atherosclerotic vascular calcifications involving the bilateral carotid siphons. The sella and pineal gland regions appear unremarkable. Low-density is noted in the deep white matter in the right and left consistent with chronic ischemic change, with focal encephalomalacia in the left occipital lobe, unchanged. There is no evidence of cerebellar tonsillar herniation. Ventricles: There is no acute hydrocephalus. Basilar cisterns are patent. Paranasal sinuses: Well-aerated Mastoid air cells: Well-aerated. Calvarium: The bony calvarium is intact. Orbits: The bilateral globes are symmetric, without retrobulbar compressive mass lesion or hemorrhage. CT/Brain/Head without Contrast IMPRESSION: Low-density is noted in the deep white matter in the right and left consistent with chronic ischemic change, with focal encephalomalacia in the left occipital lobe, unchanged. No acute intracranial pathology. Reading Location: [facility] CC: Dr. Alex Saha MD; Dr. Clinton Fowler DO Bilingual Executive Assistant: Signed Normal [facility] CBC W/Diff, Automatedon 04-16 Absolute Lymph 1.82 X10 3/uL Normal 0.83-4.51 [facility] Comment on above: Performed By: #### L 100.0100, L500.4050 ####[facility] [address] [place], [address] Absolute Neut 5.2 X10 3/uL Normal 2.0-7.7 [facility] Comment on above: Performed By: #### L 100.0100, L500.4050 ####[facility] [address] [place], [address] Basophils/100 WBC (Bld) 0.9 % Normal 0-1 [facility] Comment on above: Performed By: #### L 100.0100, L500.4050 ####[facility] [address] [place], [address] Eosinophils/100 WBC (Bld) 3.1 % Normal 0-5 [facility] Comment on above: Performed By: #### L 100.0100, L500.4050 ####[facility] [address] [place], [address] Erythrocyte distribution width (RBC) [Ratio] 12.6 % Normal 11.6-14.6 [facility] Comment on above: Performed By: #### L 100.0100, L500.4050 ####[facility] [address] [place], [address] Hematocrit (Bld) [Volume fraction] 34.2 % Low 37-47 [facility] Comment on above: Performed By: #### L 100.0100, L500.4050 ####[facility] [address] [place], [address] Hemoglobin (Bld) [Mass/Vol] 11.6 g/dL Low 12.0-15. 0 [facility] Comment on above: Performed By: #### L 100.0100, L500.4050 ####[facility] [address] [place], [address] IG% 0.400 Normal 0.0-0.9 [facility] Comment on above: Result Comment: IG% - Immature Granulocytes (promyelocytes, myelocytes and metamyelocytes) > 1% indicates that a LEFT SHIFT is Present. Performed By: #### L 100.0100, L500.4050 ####[facility] [address] [place], [address] Lymphocytes/100 WBC (Bld) 22.6 % Normal 19-41 [facility] Comment on above: Performed By: #### L 100.0100, L500.4050 ####[facility] [address] [place], [address] MCH (RBC) [Entitic mass] 31.7 pg Normal 27.0-32.0 [facility] Comment on above: Performed By: #### L 100.0100, L500.4050 ####[facility] [address] [place], [address] MCHC (RBC) [Mass/Vol] 33.9 g/dL Normal 32-36 [facility] Comment on above: Performed By: #### L 100.0100, L500.4050 ####[facility] [address] [place], [address] MCV (RBC) [Entitic vol] 93.4 fL Normal 81-99 [facility] Comment on above: Performed By: #### L 100.0100, L500.4050 ####[facility] [address] [place], [address] Monocytes/100 WBC (Bld) 7.8 % Normal 0-10 [facility] Comment on above: Performed By: #### L 100.0100, L500.4050 ####[facility] [address] [place], [address] Neutrophils/100 WBC (Bld) 65.2 % Normal 47-70 [facility] Comment on above: Performed By: #### L 100.0100, L500.4050 ####[facility] [address] [place], [address] Nucleated RBC (Bld) [#/Vol] 0 10*3/uL Normal 0-5 [facility] Comment on above: Performed By: #### L 100.0100, L500.4050 ####[facility] [address] [place], [address] Platelet mean volume (Bld) [Entitic vol] 10.9 fL Normal 6.2-12.0 [facility] Comment on above: Performed By: #### L 100.0100, L500.4050 ####[facility] [address] [place], [address] Platelets (Bld) [#/Vol] 169 10*3/uL Normal 150-450 [facility] Comment on above: Performed By: #### L 100.0100, L500.4050 ####[facility] [address] [place], [address] RBC (Bld) [#/Vol] 3.66 10*6/uL Low 4.2-5.4 [facility] Comment on above: Performed By: #### L 100.0100, L500.4050 ####[facility] [address] [place], [address] RDW SD 43.2 fl Normal 35.1-43.9 [facility] Comment on above: Performed By: #### L 100.0100, L500.4050 ####[facility] [address] [place], [address] WBC (Bld) [#/Vol] 8.0 10*3/uL Normal 4.4-11.0 [facility] Comment on above: Performed By: #### L 100.0100, L500.4050 ####[facility] [address] [place], [address] Chest 1 View (Portable)on Chest 1 View (Portable) [facility] Imaging Services [address] [place] [address] Chest 1 View (Portable) MR#: [id number] Acct: [id number] Name: LIZA HANCOCK Rep #: [id number] : 1935 F 89 From: Froilan Dillon MD PCP: Dr. Clinton Fowler DO Status: REG ER Study: Chest 1 View (Portable) Date of Exam: 05/05/25 Exam# [id number] Ordering Dr: Alex Saha MD PROCEDURE: CHEST 1 VIEW (PORTABLE) 05/05/2025 REASON FOR EXAM: FATIGUE, CORONARY ARTERY DISEASE TECHNIQUE: Frontal view of the chest. COMPARISON: February 22, 2025 FINDINGS: Heart size upper normal. Central vascularity appears within normal limits. There is no focal infiltrate or consolidation. There is blunting of the costophrenic angle on the left which may represent a trace effusion. Aortic calcifications are noted. There is no visible acute bony abnormality. RAD/Chest 1 View (Portable) IMPRESSION: There is blunting of the costophrenic angle on the left which may represent a trace effusion, similar to the prior. Reading Location: [facility] CC: Dr. Alex Saha MD; Dr. Clinton Fowler DO Bilingual Executive Assistant: Signed Normal [facility] Comprehensive Metabolic Prof ilon 05-05-2025 Albumin [Mass/Vol] 4.0 g/dL Normal 3.4-4.8 [facility] Comment on above: Performed By: #### L 100.0100, L500.4050 ####[facility] [address] [place], [address] Albumin/Globulin [Mass ratio] 1.6 {ratio} Normal 0.9-2.4 [facility] Comment on above: Performed By: #### L 100.0100, L500.4050 ####[facility] [address] [place], [address] ALK PHOS 74 U/L Normal 35-104 [facility] Comment on above: Performed By: #### L 100.0100, L500.4050 ####[facility] [address] [place], [address] ALT [Catalytic activity/Vol] 20 U/L Normal <=34 [facility] Comment on above: Performed By: #### L 100.0100, L500.4050 ####[facility] [address] [place], [address] AST [Catalytic activity/Vol] 26 U/L Normal <=31 [facility] Comment on above: Performed By: #### L 100.0100, L500.4050 ####[facility] [address] [place], [address] Bilirubin [Mass/Vol] 0.62 mg/dL Normal 0.00-1.30 [facility] Comment on above: Performed By: #### L 100.0100, L500.4050 ####[facility] [address] [place], [address] BUN/CRE 19.0 RATIO Normal 10-20 [facility] Comment on above: Performed By: #### L 100.0100, L500.4050 ####[facility] [address] [place], [address] Calcium [Mass/Vol] 9.5 mg/dL Normal 7.6-11.0 [facility] Comment on above: Performed By: #### L 100.0100, L500.4050 ####[facility] [address] [place], [address] Chloride [Moles/Vol] 100 mmol/L Normal 98-108 [facility] Comment on above: Performed By: #### L 100.0100, L500.4050 ####[facility] [address] [place], [address] CO2 [Moles/Vol] 24.3 mmol/L Normal 21.0-32.0 [facility] Comment on above: Performed By: #### L 100.0100, L500.4050 ####[facility] [address] [place], [address] Creatinine [Mass/Vol] 0.93 mg/dL Normal 0.70-1.20 [facility] Comment on above: Performed By: #### L 100.0100, L500.4050 ####[facility] [address] [place], [address] ECRCL 39.88 ml/min Low 50-250 [facility] Comment on above: Performed By: #### L 100.0100, L500.4050 ####[facility] [address] [place], [address] GAP 9 Normal 5-15 [facility] Comment on above: Performed By: #### L 100.0100, L500.4050 ####[facility] [address] [place], [address] GFR/1.73 sq M.predicted among non-blacks MDRD (S/P/Bld) [Vol rate/Area] 59 mL/min/{1.73_m2} Low >[address] [facility] Comment on above: Result Comment: mL/m in/1.73m2 CKD-EPI Creatinine Equation (2020) Performed By: #### L 100.0100, L500.4050 ####[facility] [address] [place], [address] Globulin (S) [Mass/Vol] 2.5 g/dL Normal 2.2-4.2 [facility] Comment on above: Performed By: #### L 100.0100, L500.4050 ####[facility] [address] [place], [address] Glucose [Mass/Vol] 98 mg/dL Normal 70-99 [facility] Comment on above: Performed By: #### L 100.0100, L500.4050 ####[facility] [address] [place], [address] Potassium [Moles/Vol] 4.5 mmol/L Normal 3.3-5.1 [facility] Comment on above: Performed By: #### L 100.0100, L500.4050 ####[facility] [address] [place], [address] Sodium [Moles/Vol] 133 mmol/L Normal 133-145 [facility] Comment on above: Performed By: #### L 100.0100, L500.4050 ####[facility] [address] [place], [address] T PROT 6.5 g/dL Normal 5.9-8.4 [facility] Comment on above: Performed By: #### L 100.0100, L500.4050 ####[facility] [address] [place], [address] Urea nitrogen [Mass/Vol] 18 mg/dL Normal 4-19 [facility] Comment on above: Performed By: #### L 100.0100, L500.4050 ####[facility] [address] [place], [address] Emergency Department Summary on 05-05-2025 Emergency Department Summary [facility] Medical Records Department [address] [place] [address] Emergency Department Summary 05/05/25 MR#: [id number] Acct: [id number] Name: LIZA HANCOCK Rep #: [id number] : 1935 89 From: Alex Saha MD PCP: Dr. Clinton Fowler DO Status:DEP ER Location: ED ADDENDUM by Dr. Jovan Girard MD on 05/07/25 at 1623 Urine culture sensitivity returned greater than 100,000 Klebsiella pneumonia. Based on sensitivity she was treated with trimethyl sulfa Proctosol double strength tab 1 twice daily for 7 days. 05/07/25 1623 Cosigner Signature (if applicable): cc: Dr. Clinton Fowler, * Signed ADDENDUM by Dr. Alex Saha MD on 05/05/25 at 1400 EKG was obtained and interpreted by myself independently as sinus bradycardia at [address] changes. No STEMI. No significant change from previous dated May 2023 although rate was faster. 05/05/25 1400 Cosigner Signature (if applicable): cc: Dr. Clinton Fowler, DO * Signed HPI History of Present Illness Chief Complaint: Alt LOC Narrative Narrative: 89-year-old female presents with her via EMS with acute change in mental status. History and physical is limited secondary to dementia. Additionally, her states that she had a stroke in 2018 which limits her vocabulary. She usually says the word virus. And naming certain things. She is repetitive with this at times. Additionally, he states that she is able to read signs when they are driving. He noticed that overnight, he thinks that something is wrong. Yesterday she had a fall in the driveway when she was getting in to the car. He denies her hitting her head or loss of consciousness. He thinks she may have fallen again yesterday. Home health aide came in today at 10 AM, over an hour and a half ago, and although she drank a lot of water yesterday which is unusual for her, she took her Creon and spat out her water. It was then that her states he knew that something was wrong and different. [facility] Medical History GERD (gastroesophageal reflux disease) TIA [...] QHS cholesterol #30 tabs 12/03/17 01/11/23 Rx qhpoaywd-cut-ortep acid 0.4 1 ea PO BID supplement [...] or pain Unknown History (Tylenol Extra Strength) dtsubf-onvkweqo-cxbtr se 3 cap PO .aqc #300 caps 07/24/24 U nknown Rx 36,000-114,000-180,00 0 unit capsule,delay rel (Creon) nitrofurantoin 100 mg PO Q12 #10 CAPSULES 5 Unknown Rx monohydrate/macrocrys tals 100 mg capsule nitrofurantoin 100 mg PO BID 7 days #14 caps 03/16 12/07 Unknown Rx monohydrate/macrocrys tals 100 mg capsule (Macrobid) Allergy/AdvReac Type Severity Reaction Status Date / Time pollen extracts Allergy Intermediate PT UNSURE Verified 05/05/25 11:23 OF RE (more content not included)... Normal [place] [facility] Urinalysis, Completeon 05-05 BACTERIA 2+ /hpf Normal None Seen [facility] Comment on above: Order Comment: CLEAN CATCH Performed By: #### L 501.4021, M200.1000 #### [facility] Laboratory [address] [place], [address] WBC 0-5 SEEN Normal 0-5 [facility] Comment on above: Order Comment: CLEAN CATCH Performed By: #### L 501.4021, M200.1000 #### [facility] [address] [place], [address] EPI,SQUAMOUS 0 SEEN Normal 5-10 [facility] Comment on above: Order Comment: CLEAN CATCH Performed By: #### L 501.4021, M200.1000 #### [facility] [address] [place], [address] Mucus Ql (Urine sed) 0 SEEN Normal [facility] Comment on above: Order Comment: CLEAN CATCH Performed By: #### L 501.4021, M200.1000 #### [facility] [address] [place], [address] RBC 0 SEEN Normal 0-5 [facility] Comment on above: Order Comment: CLEAN CATCH Performed By: #### L 501.4021, M200.1000 #### [facility] [address] [place], [address] Urine Cultureon 04-01-2025 [facility] Presumptive E. coli Gonzales Count >100,000 Presumptive E. coli: REACTION Ampicillin Islt JIMI 8 Ampicillin+Sulbac Islt JIMI 4 S Cefepime Islt JIMI <=0.12 S cefTRIAXone Islt JIMI <=0.25 S Ciprofloxacin Islt JIMI >=4 R B-Lactamase Extended Susc Islt NEG Gentamicin Islt JIMI <=1 S levoFLOXacin Islt JIMI >=8 R Meropenem Islt JIMI <=0.25 S Nitrofurantoin Islt JIMI 32 S Pip+Tazo Islt JIMI <=4 S TMP SMX Islt JIMI >=320 R Normal [facility] Comment on above: Performed By: #### M 100.2200 ####[facility] [address] [place], [place], [id number] Absolute lymphocyte countOrd ered By: Quentin Oshea on 03-30-2025 Lymphocytes Auto (Unsp spec) [#/Vol] 2.97 10*3/uL 0.83-4.51 [facility] Absolute neutrophil countOrd ered By: Quentin Oshea on 03-30-2025 Neutrophils (Bld) [#/Vol] 3.1 10*3/uL 2.0-7.7 [facility] Anion gap in Serum or Plasma Ordered By: Quentin Oshea on 03-30-2025 Anion gap [Moles/Vol] 8 mmol/L 11-27 [facility] Automated blood erythrocyte countOrdered By: Quentin Oshea on 03-30-2025 RBC (Bld) [#/Vol] 3.35 10*6/uL Low 4.2-5.4 [facility] Comment on above: Performed By: #### L 500.3400, L500.2500, L501.9520, L100.0100 ####[facility] [address] [place], [address] Automated blood hematocrit ( percentage)Ordered By: Quentin Oshea on 03-30-2025 Hematocrit (Bld) [Volume fraction] 32.2 % Low 37-47 [facility] Comment on above: Performed By: #### L 500.3400, L500.2500, L501.9520, L100.0100 ####[facility] [address] [place], [address] Automated lymphocyte count a s percentage of total leukocytesOrdered By: Quentin Oshea on 03-30-2025 Lymphocytes/100 WBC Auto (Unsp spec) 42.1 % High 19-41 [facility] BUN/creatinine ratioOrdered By: Quentin Oshea on 03-30-2025 Urea nitrogen/Creatinine [Mass ratio] 20.0 mg/mg 05-04 [facility] Basic Metabolic Profile (BMP )on 03-30-2025 BUN/CRE 20.0 RATIO Normal - [facility] Comment on above: Performed By: #### L 500.3400, L500.2500, L501.9520, L100.0100 ####[facility] [address] [place], [address] ECRCL 32.99 ml/min Low 50-250 [facility] Comment on above: Performed By: #### L 500.3400, L500.2500, L501.9520, L100.0100 ####[facility] [address] [place], [address] GAP 8 Normal - [facility] Comment on above: Performed By: #### L 500.3400, L500.2500, L501.9520, L100.0100 ####[facility] [address] [place], [address] Potassium [Moles/Vol] 4.4 mmol/L Normal 3.3-5.1 [facility] Comment on above: Performed By: #### L 500.3400, L500.2500, L501.9520, L100.0100 ####[facility] [address] [place], [address] Basophil percentageOrdered B y: Quentin Oshea on 03-30-2025 Basophils/100 WBC (Bld) 1.0 % Normal 0-1 [facility] Comment on above: Performed By: #### L 500.3400, L500.2500, L501.9520, L100.0100 ####[facility] [address] [place], [address] Bilirubin Test strip Ql (U)O rdered By: Quentin Oshea on 03-30-2025 Bilirubin Ql (U) Negative Negative [facility] Bilirubin directOrdered By: Quentin Oshea on 03-30-2025 Bilirubin.direct [Mass/Vol] 0.13 mg/dL Normal 0.00-0.3 0 [facility] Comment on above: Performed By: #### L 500.3400, L500.2500, L501.9520, L100.0100 ####[facility] [address] [place], [address] Bilirubin, totalOrdered By: Quentin Oshea on 03-30-2025 Bilirubin [Mass/Vol] 0.24 mg/dL Normal 0.00-1.30 [facility] Comment on above: Performed By: #### L 500.3400, L500.2500, L501.9520, L100.0100 ####[facility] [address] [place], [address] Brain/Head without Contrasto n 03-30-2025 Brain/Head without Contrast [facility] Imaging Services [address] [place] [address] Brain/Head without Contrast MR#: [id number] Acct: [id number] Name: LIZA HANCOCK Rep #: [id number] : 1935 F 89 From: Phyllis douglas MD PCP: Dr. Clinton Fowler DO Status: REG ER Study: Brain/Head without Contrast Date of Exam: 03/16 12/07 Exam# [id number] Ordering Dr: Quentin Oshea DO PROCEDURE: BRAIN/HEAD WITHOUT CONTRAST 03/30/2025 REASON FOR EXAM: ALTERED MENTAL STATUS TECHNIQUE: Procedure Code: CTBR Modality: CT Procedure: BRAIN/HEAD WITHOUT CONTRAST Coronal and Sagittal reconstruction series were provided. One or more dose reduction techniques were used (e.g., Automated exposure control, adjustment of the mA and/or kV according to patient size, use of iterative reconstruction technique. RADIATION DOSE SUMMARY: CTDI Vol 44.99 mGy DLP :846.73 mGycm COMPARISON: 22-Feb-2025 FINDINGS: Accentuated bilateral cerebral periventricular deep white matter hypodensities denoting hypoperfusion with bilateral cerebral periventricular and subcortical as well as basal ganglia hypodense foci and patches. Veliz-white matter differentiation is maintained. Normal CT appearance of the posterior fossa structures. No intracerebral or extra axial hemorrhage. Dilated ventricular system, cortical sulci and extra-axial CSF spaces with fronto-temporal atrophic changes. No definite calvarial fractures. No midline shifts or deformity. The osseous structures in the skull base are unremarkable. Paranasal sinuses are unremarkable. Vascular atheromatous calcifications. CT/Brain/Head without Contrast IMPRESSION: No acute cerebrovascular abnormalities. If clinical symptoms persist, further evaluation with MRI may be considered as clinically warranted. No intra or extra-axial acute hemorrhage. Bilateral cerebral microvascular ischemic changes with age matches brain involutional changes. Stable. [facility] CC: Dr. Clinton Fowler DO; Quentin Oshea DO Bilingual Executive Assistant: Signed Normal [facility] CBC W/Diff, Automatedon 03-16 Absolute Lymph 2.97 X10 3/uL Normal 0.83-4.51 [facility] Comment on above: Performed By: #### L 500.3400, L500.2500, L501.9520, L100.0100 ####[facility] [address] [place], [address] Absolute Neut 3.1 X10 3/uL Normal 2.0-7.7 [facility] Comment on above: Performed By: #### L 500.3400, L500.2500, L501.9520, L100.0100 ####[facility] [address] [place], [address] IG% 0.400 Normal 0.0-0.9 [facility] Comment on above: Result Comment: IG% - Immature Granulocytes (promyelocytes, myelocytes and metamyelocytes) > 1% indicates that a LEFT SHIFT is Present. Performed By: #### L 500.3400, L500.2500, L501.9520, L100.0100 ####[facility] [address] [place], [address] Lymphocytes/100 WBC (Bld) 42.1 % High 19-41 [facility] Comment on above: Performed By: #### L 500.3400, L500.2500, L501.9520, L100.0100 ####[facility] [address] [place], [address] Nucleated RBC (Bld) [#/Vol] 0 10*3/uL Normal 0-5 [facility] Comment on above: Performed By: #### L 500.3400, L500.2500, L501.9520, L100.0100 ####[facility] [address] [place], [address] RDW SD 45.1 fl High 35.1-43.9 [facility] Comment on above: Performed By: #### L 500.3400, L500.2500, L501.9520, L100.0100 ####[facility] [address] [place], [address] Carbon dioxide, total [Moles /volume] in Central venous bloodOrdered By: Quentin Oshea on 03-30-2025 CO2 [Moles/Vol] 25.9 mmol/L Normal 21.0-32.0 [facility] Comment on above: Performed By: #### L 500.3400, L500.2500, L501.9520, L100.0100 ####[facility] [address] [place], [address] Chloride assayOrdered By: Ivette Oshea on 03-30-2025 Chloride [Moles/Vol] 106 mmol/L Normal 98-108 [facility] Comment on above: Performed By: #### L 500.3400, L500.2500, L501.9520, L100.0100 ####[facility] [address] [place], [address] Emergency Department Summary on 03-30-2025 Emergency Department Summary [facility] Medical Records Department [address] [place] [address] Emergency Department Summary 03/30/25 MR#: [id number] Acct: [id number] Name: LIZA HANCOCK Rep #: [id number] : 1935 89 From: Quentin Oshea DO PCP: Dr. Clinotn Fowler, Status:DEP ER Location: ED HPI History of Present Illness Chief Complaint: Mental Status Change Informant: spouse/S.O. and EMS Limited: dementia Narrative Narrative: Patient is an 89-year-old female with past medical history of dementia hypertension restless leg syndrome and type 2 diabetes. states that her baseline status is typically alert and oriented x 0. He states that she sleeps frequently. He reports that she went and took a nap this evening which is not abnormal for her. However he states that she was sleeping longer than usual and he tried to wake her up. He states that he was saying her name and gently touching her or rocking her to see if she would wake. He states that when he did this the first time there was no improvement/the patient did not wake up. He states he did not think much of this as he felt he may have just been extra tired and therefore he waited a little longer and when he tried again and there was still no waking this concerned him and therefore he called 911. EMS states when they arrived the patient had a depressed mental status but was breathing normally and otherwise had stable vitals. The reports the last time she was like that she had a urinary tract infection which is his concern The patient cannot offer any history based on her dementia status [facility] Medical History GERD (gastroesophageal reflux disease) TIA [...] QHS cholesterol #30 tabs 12/03/17 01/11/23 Rx toivwbgd-hqp-wpgay acid 0.4 1 ea PO BID supplement [...] or pain Unknown History (Tylenol Extra Strength) qkzxsp-oqvnknhq-uwqdn se 3 cap PO .aqc #300 caps 07/24/24 U nknown Rx 36,000-114,000-180,00 0 unit capsule,delay rel (Creon) nitrofurantoin 100 mg PO Q12 #10 CAPSULES 5 Unknown Rx monohydrate/macrocrys tals 100 mg capsule nitrofurantoin 100 mg PO BID 7 days #14 caps 03/16 12/07 Unknown Rx monohydrate/macrocrys tals 100 mg capsule (Macrobid) Allergy/AdvReac Type Severity Reaction Status Date / Time pollen extracts Allergy Intermediate PT UNSURE Verified 03/30/25 01:41 OF REACTION Family History Mother Alzheimer disease Brother Alzheimer disease Aunt Alzheimer disease Father Heart disease Surgical History H/O lumpectomy H/O: hysterectomy History of tonsillectomy Social History household members: spouse Smoking Status: N (more content not included)... Normal [facility] Eosinophil percentageOrdered By: Quentin Oshea on 03-30-2025 Eosinophils/100 WBC (Bld) 3.8 % Normal 0-5 [facility] Comment on above: Performed By: #### L 500.3400, L500.2500, L501.9520, L100.0100 ####[facility] [address] [place], [place], [address] Erythrocyte distribution wid th ratioOrdered By: Quentin Oshea on 03-30-2025 Erythrocyte distribution width (RBC) [Ratio] 12.8 % Normal 11.6-14.6 [facility] Comment on above: Performed By: #### L 500.3400, L500.2500, L501.9520, L100.0100 ####[facility] [address] [place], [place], [address] Erythrocyte distribution wid th standard deviationOrdered By: Quentin Oshea on 03-30-2025 Erythrocyte distribution width (RBC) [Ratio] 45.1 fl High 35.1-43.9 [facility] Glomerular filtration rate ( GFR) estimation/1.73 sq m using serum, plasma, or whole bOrdered By: Quentin Oshea on 03-30-2025 GFR/1.73 sq M.predicted among non-blacks MDRD (S/P/Bld) [Vol rate/Area] 47 mL/min/{1.73_m2} Low >[address] [facility] Comment on above: mL/min/1.73m2 CKD-EP I Creatinine Equation (2020) Result Comment: mL/m in/1.73m2 CKD-EPI Creatinine Equation (2020) Performed By: #### L 500.3400, L500.2500, L501.9520, L100.0100 ####[facility] [address] [place], [address] Hemoglobin measurementOrdere d By: Quentin Oshea on 03-30-2025 Hemoglobin (Bld) [Mass/Vol] 10.5 g/dL Low 12.0-15. 0 [facility] Comment on above: Performed By: #### L 500.3400, L500.2500, L501.9520, L100.0100 ####[facility] [address] [place], [address] Immature granulocytes/100 WB C Auto (Bld)Ordered By: Quentin Oshea on 03-30-2025 Immature granulocytes/100 WBC (Bld) 0.400 % 0.0-0.9 [facility] Comment on above: IG% - Immature Granu locytes (promyelocytes, myelocytes and metamyelocytes) > 1% indicates that a LEFT SHIFT is Present. Ketones Test strip Ql (U)Ord ered By: Quentin Oshea on 03-30-2025 Ketones Ql (U) Negative Negative [facility] Liver Profileon 03-30-2025 ALK PHOS 69 U/L Normal 35-104 [facility] Comment on above: Performed By: #### L 500.3400, L500.2500, L501.9520, L100.0100 ####[facility] [address] [place], [address] T PROT 6.2 g/dL Normal 5.9-8.4 [facility] Comment on above: Performed By: #### L 500.3400, L500.2500, L501.9520, L100.0100 ####[facility] [address] [place], [address] Liver ProfileOrdered By: Alli Oshea on 03-30-2025 AST [Catalytic activity/Vol] 22 U/L Normal <=31 [facility] Comment on above: Performed By: #### L 500.3400, L500.2500, L501.9520, L100.0100 ####[facility] [address] [place], [address] MCV (mean corpuscular volume ) determinationOrdered By: Quentin Oshea on 03-30-2025 MCV (RBC) [Entitic vol] 96.1 fL Normal 81-99 [facility] Comment on above: Performed By: #### L 500.3400, L500.2500, L501.9520, L100.0100 ####[facility] [address] [place], [address] Mean corpuscular hemoglobin (MCH) determinationOrdered By: Quentin Oshea on 03-30-2025 MCH (RBC) [Entitic mass] 31.3 pg Normal 27.0-32.0 [facility] Comment on above: Performed By: #### L 500.3400, L500.2500, L501.9520, L100.0100 ####[facility] [address] [place], [address] Mean corpuscular hemoglobin concentration (MCHC) determinationOrdered By: Quentin Oshea on 03-30-2025 MCHC (RBC) [Mass/Vol] 32.6 g/dL Normal 32-36 [facility] Comment on above: Performed By: #### L 500.3400, L500.2500, L501.9520, L100.0100 ####[facility] [address] [place], [address] Mean platelet volume determi nationOrdered By: Quentin Oshea on 03-30-2025 Platelet mean volume (Bld) [Entitic vol] 10.4 fL Normal 6.2-12.0 [facility] Comment on above: Performed By: #### L 500.3400, L500.2500, L501.9520, L100.0100 ####[facility] [address] [place], [place], [address] Microscopic analysis of urin e for red blood cells (RBC)Ordered By: Quentin Oshea on 03-30-2025 Microscopic analysis of urine for red blood cells (RBC) 0 SEEN /hpf 0-5 [facility] Monocyte percentageOrdered B y: Quentin Oshea on 03-30-2025 Monocytes/100 WBC (Bld) 9.1 % Normal 0-10 [facility] Comment on above: Performed By: #### L 500.3400, L500.2500, L501.9520, L100.0100 ####[facility] [address] [place], [place], [id number] Mucus LM Ql (Urine sed)Order ed By: Quentin Oshea on 03-30-2025 Mucus Ql (Urine sed) 0 SEEN /hpf [facility] Neutrophil percentageOrdered By: Quentin Oshea on 03-30-2025 Neutrophils/100 WBC (Bld) 43.6 % Low 47-70 [facility] Comment on above: Performed By: #### L 500.3400, L500.2500, L501.9520, L100.0100 ####[facility] [address] [place], [place], [id number] Nitrite Test strip Ql (U)Ord ered By: Quentin Oshea on 03-30-2025 Nitrite Ql (U) Positive High Negative [facility] Nucleated red blood cell per centageOrdered By: Quentin Oshea on 03-30-2025 Nucleated RBC/100 WBC (Bld) [Ratio] 0 % 0-5 [facility] Platelet countOrdered By: Ivette Oshea on 03-30-2025 Platelets (Bld) [#/Vol] 161 10*3/uL Normal 150-450 [facility] Comment on above: Performed By: #### L 500.3400, L500.2500, L501.9520, L100.0100 ####[facility] [address] [place], [address] Potassium measurement (mass/ volume)Ordered By: Quentin Oshea on 03-30-2025 Potassium (Unsp spec) [Mass/Vol] 4.4 mmol/L 3.3-5.1 [facility] Protein Test strip Ql (U)Ord ered By: Quentin Oshea on 03-30-2025 Protein Ql (U) Negative Negative [facility] Serum creatinine measurement (mass/volume)Ordered By: Quentin Oshea on 03-30-2025 Creatinine [Mass/Vol] 1.12 mg/dL Normal 0.70-1.20 [facility] Comment on above: Performed By: #### L 500.3400, L500.2500, L501.9520, L100.0100 ####[facility] [address] [place], [address] Serum globulin measurementOr dered By: Quentin Oshea on 03-30-2025 Globulin (S) [Mass/Vol] 2.6 g/dL Normal 2.2-4.2 [facility] Comment on above: Performed By: #### L 500.3400, L500.2500, L501.9520, L100.0100 ####[facility] [address] [place], [address] Serum glucose measurement (m ass/volume)Ordered By: Quentin Oshea on 03-30-2025 Glucose [Mass/Vol] 131 mg/dL High 70-99 [facility] Comment on above: Performed By: #### L 500.3400, L500.2500, L501.9520, L100.0100 ####[facility] [address] [place], [address] Serum or plasma alanine lay otransferase (ALT) measurementOrdered By: Quentin Oshea on 03-30-2025 ALT [Catalytic activity/Vol] 18 U/L Normal <=34 [facility] Comment on above: Performed By: #### L 500.3400, L500.2500, L501.9520, L100.0100 ####[facility] [address] [place], [address] Serum or plasma albumin beck urement (mass/volume)Ordered By: Quentin Oshea on 03-30-2025 Albumin [Mass/Vol] 3.6 g/dL Normal 3.4-4.8 [facility] Comment on above: Performed By: #### L 500.3400, L500.2500, L501.9520, L100.0100 ####[facility] [address] [place], [address] Serum or plasma alkaline hector sphatase measurementOrdered By: Quentin Oshea on 03-30-2025 ALP [Catalytic activity/Vol] 69 U/L 35-104 [facility] Serum or plasma calcium beck urement (mass/volume)Ordered By: Quentin Oshea on 03-30-2025 Calcium [Mass/Vol] 9.4 mg/dL Normal 7.6-11.0 [facility] Comment on above: Performed By: #### L 500.3400, L500.2500, L501.9520, L100.0100 ####[facility] [address] [place], [address] Serum or plasma urea nitroge n measurement (mass/volume)Ordered By: Quentin Oshea on 03-30-2025 Urea nitrogen [Mass/Vol] 22 mg/dL High 4-19 [facility] Comment on above: Performed By: #### L 500.3400, L500.2500, L501.9520, L100.0100 ####[facility] [address] [place], [address] Sodium levelOrdered By: Fred Oshea on 03-30-2025 Sodium [Moles/Vol] 140 mmol/L Normal 133-145 [facility] Comment on above: Performed By: #### L 500.3400, L500.2500, L501.9520, L100.0100 ####[facility] [address] [place], [address] Squamous epithelial cells de tection in urine sediment by light microscopyOrdered By: Quentin Oshea on 03-30-2025 Epithelial cells.squamous LM Ql (Urine sed) 0 SEEN /hpf 5-10 [facility] TSH DL <= 0.005 mIU/L QnOrde red By: Quentin Oshea on 03-30-2025 TSH Qn 2.710 uIU/mL 0.300-4.200 [facility] Thyroid Stim Hormone (TSH)on 03-30-2025 TSH 2.710 uIU/mL Normal 0.300-4.200 [facility] Comment on above: Performed By: #### L 500.3400, L500.2500, L501.9520, L100.0100 ####[facility] [address] [place], [address] Total proteinOrdered By: Alli Oshea on 03-30-2025 Protein [Mass/Vol] 6.2 g/dL 5.9-8.4 [facility] Urinalysis, Completeon 03-30 BACTERIA 2+ /hpf Normal None Seen [facility] Comment on above: Order Comment: LUCIA TER SPECIMEN Performed By: #### L 400.0001 ####[facility] [address] [place], [address] WBC 5-10 SEEN Normal 0-5 [facility] Comment on above: Order Comment: LUCIA TER SPECIMEN Performed By: #### L 400.0001 ####[facility] [address] [place], [address] EPI,SQUAMOUS 0 SEEN Normal 5-10 [facility] Comment on above: Order Comment: LUCIA TER SPECIMEN Performed By: #### L 400.0001 ####[facility] [address] [place], [address] Mucus Ql (Urine sed) 0 SEEN Normal [facility] Comment on above: Order Comment: LUCIA TER SPECIMEN Performed By: #### L 400.0001 ####[facility] [address] [place], [place], [id number] RBC 0 SEEN Normal 0-5 [facility] Comment on above: Order Comment: LUCIA TER SPECIMEN Performed By: #### L 400.0001 ####[facility] [address] [place], [place], [id number] Urine clarityOrdered By: Alli Oshea on 03-30-2025 Clarity (U) Clear Clear [facility] Urine color determinationOrd ered By: Quentin Oshea on 03-30-2025 Color (U) Yellow Yellow [facility] Urine glucose detectionOrder ed By: Quentin Oshea on 03-30-2025 Glucose Ql (U) Normal mg/dl Normal [facility] Urine leukocyte esterase det ection by dipstickOrdered By: Quentin Oshea on 03-30-2025 Leukocyte esterase Test strip Ql (U) 100 /ul High Negative [facility] Urine pHOrdered By: Quentin fox on 03-30-2025 pH (U) 6.5 [pH] 5.0 - 8.0 [facility] Urine sediment bacteria coun t by microscopy (number/high power field)Ordered By: Quentin Oshea on 03-30-2025 Bacteria LM.HPF (Urine sed) [#/Area] 2 /[HPF] None Seen [facility] Urine specific gravity measu rementOrdered By: Quentin Oshea on 03-30-2025 Specific gravity (U) [Rel density] 1.010 1.002-1.030 [facility] Urine urobilinogen measureme ntOrdered By: Quentin Oshea on 03-30-2025 Urobilinogen Ql (U) Normal mg/dl Normal [facility] White blood cell (WBC) count Ordered By: Quentin Oshea on 03-30-2025 WBC (Bld) [#/Vol] 7.1 10*3/uL Normal 4.4-11.0 [facility] Comment on above: Performed By: #### L 500.3400, L500.2500, L501.9520, L100.0100 ####[facility] [address] [place], [place], [address] White blood cell countOrdere d By: Quentin Oshea on 03-30-2025 White blood cell count 5-10 SEEN /hpf 0-5 [facility] Urine Cultureon 02-24-2025 [facility] Escherichia coli Gonzales Count >100,000 Escherichia coli: REACTION Ampicillin Islt [...] TMP SMX Islt JIMI >=320 R Normal [facility] Comment on above: Performed By: #### M 100.2206 ####[facility] [address] [facility] [address] [place], [place], [address] Absolute lymphocyte countOrd ered By: Sixto Alvarez on 02-22-2025 Lymphocytes Auto (Unsp spec) [#/Vol] 2.77 10*3/uL 0.83-4.51 [facility] Absolute neutrophil countOrd ered By: Sixto Alvarez on 02-22-2025 Neutrophils (Bld) [#/Vol] 3.1 10*3/uL 2.0-7.7 [facility] Anion gap in Serum or Plasma Ordered By: Sixto Alvarez on 02-22-2025 Anion gap [Moles/Vol] 9 mmol/L - [facility] Automated lymphocyte count a s percentage of total leukocytesOrdered By: Sixto Alvarez on 02-22-2025 Lymphocytes/100 WBC Auto (Unsp spec) 39.9 % [facility] BUN/creatinine ratioOrdered By: Sixto Alvarez on 02-22-2025 Urea nitrogen/Creatinine [Mass ratio] 22.9 mg/mg High - [facility] Basic Metabolic Profile (BMP )on 02-22-2025 BUN/CRE 22.9 RATIO High 10-20 [facility] Comment on above: Performed By: #### L 501.4021, M200.1000 #### [facility] [address] [place], [address] Calcium [Mass/Vol] 9.2 mg/dL Normal 7.6-11.0 [facility] Comment on above: Performed By: #### L 501.4021, M200.1000 #### [facility] [address] [place], [address] Chloride [Moles/Vol] 106 mmol/L Normal 98-108 [facility] Comment on above: Performed By: #### L 501.4021, M200.1000 #### [facility] [address] [place], [address] CO2 [Moles/Vol] 23.6 mmol/L Normal 21.0-32.0 [facility] Comment on above: Performed By: #### L 501.4021, M200.1000 #### [facility] [address] [place], [address] Creatinine [Mass/Vol] 1.01 mg/dL Normal 0.70-1.20 [facility] Comment on above: Performed By: #### L 501.4021, M200.1000 #### [facility] [address] [place], [address] ECRCL 37.27 ml/min Low 50-250 [facility] Comment on above: Performed By: #### L 501.4021, M200.1000 #### [facility] [address] [place], [address] GAP 9 Normal 5-15 [facility] Comment on above: Performed By: #### L 501.4021, M200.1000 #### [facility] [address] [place], [address] GFR/1.73 sq M.predicted among non-blacks MDRD (S/P/Bld) [Vol rate/Area] 53 mL/min/{1.73_m2} Low >[address] [facility] Comment on above: Result Comment: mL/m in/1.73m2 CKD-EPI Creatinine Equation (2020) Performed By: #### L 501.4021, M200.1000 #### [facility] [address] [place], [address] Glucose [Mass/Vol] 138 mg/dL High 70-99 [facility] Comment on above: Performed By: #### L 501.4021, M200.1000 #### [facility] [address] [place], [address] Potassium [Moles/Vol] 4.7 mmol/L Normal 3.3-5.1 [facility] Comment on above: Result Comment: Hemo lysis present, Results??could be affected. ?? Performed By: #### L 501.4021, M200.1000 #### [facility] [address] [place], [address] Sodium [Moles/Vol] 139 mmol/L Normal 133-145 [facility] Comment on above: Performed By: #### L 501.4021, M200.1000 #### [facility] [address] [place], [address] Urea nitrogen [Mass/Vol] 23 mg/dL High 4-19 [facility] Comment on above: Performed By: #### L 501.4021, M200.1000 #### [facility] [address] [place], [address] Basophil percentageOrdered B y: Sixto Alvarez on 02-22-2025 Basophils/100 WBC (Bld) 1.0 % 0-1 [facility] Bilirubin Test strip Ql (U)O rdered By: Sixto Alvarez on 02-22-2025 Bilirubin Ql (U) Negative Negative [facility] Brain/Head without Contrasto n 02-22-2025 Brain/Head without Contrast [facility] Imaging Services [address] [place], [place] [address] Brain/Head without Contrast MR#: [id number] Acct: [id number] Name: LIZA HANCOCK Rep #: [id number] : 1935 F 89 From: Nathaly Carney nd, MD PCP: Dr. Clinton Fowler DO Status: REG ER Study: Brain/Head without Contrast Date of Exam: 02/13 Exam# [id number] Ordering Dr: Sixto Alvarez DO EXAM: BRAIN/HEAD [...] shift, mass effect, or extra-axial collection. The veliz and white matter interfaces are otherwise maintained. The orbits, visualized paranasal sinuses and mastoids are unremarkable. No acute calvarial fracture or scalp hematoma. CT/Brain/Head without Contrast IMPRESSION: No acute intracranial finding. Reading Location: [id number] CC: Dr. Sixto Alvarez DO; Dr. Clinton Fowler DO Bilingual Executive Assistant: Signed Normal [facility] CBC W/Diff, Automatedon 02-13 Absolute Lymph 2.77 X10 3/uL Normal 0.83-4.51 [facility] Comment on above: Performed By: #### L 501.4021, M200.1000 #### [facility] [address] [place], [address] Absolute Neut 3.1 X10 3/uL Normal 2.0-7.7 [facility] Comment on above: Performed By: #### L 501.4021, M200.1000 #### [facility] [address] [place], [address] Basophils/100 WBC (Bld) 1.0 % Normal 0-1 [facility] Comment on above: Performed By: #### L 501.4021, M200.1000 #### [facility] [address] [place], [address] Eosinophils/100 WBC (Bld) 3.6 % Normal 0-5 [facility] Comment on above: Performed By: #### L 501.4021, M200.1000 #### [facility] [address] [place], [address] Erythrocyte distribution width (RBC) [Ratio] 13.1 % Normal 11.6-14.6 [facility] Comment on above: Performed By: #### L 501.4021, M200.1000 #### [facility] [address] [place], [address] Hematocrit (Bld) [Volume fraction] 30.7 % Low 37-47 [facility] Comment on above: Performed By: #### L 501.4021, M200.1000 #### [facility] [address] [place], [address] Hemoglobin (Bld) [Mass/Vol] 10.1 g/dL Low 12.0-15. 0 [facility] Comment on above: Performed By: #### L 501.4021, M200.1000 #### [facility] [address] [place], [address] IG% 0.600 Normal 0.0-0.9 [facility] Comment on above: Result Comment: IG% - Immature Granulocytes (promyelocytes, myelocytes and metamyelocytes) > 1% indicates that a LEFT SHIFT is Present. Performed By: #### L 501.4021, M200.1000 #### [facility] [address] [place], [address] Lymphocytes/100 WBC (Bld) 39.9 % Normal 19-41 [facility] Comment on above: Performed By: #### L 501.4021, M200.1000 #### [facility] [address] [place], [address] MCH (RBC) [Entitic mass] 31.3 pg Normal 27.0-32.0 [facility] Comment on above: Performed By: #### L 501.4021, M200.1000 #### [facility] [address] [place], [address] MCHC (RBC) [Mass/Vol] 32.9 g/dL Normal 32-36 [facility] Comment on above: Performed By: #### L 501.4021, M200.1000 #### [facility] [address] [place], [address] MCV (RBC) [Entitic vol] 95.0 fL Normal 81-99 [facility] Comment on above: Performed By: #### L 501.4021, M200.1000 #### [facility] [address] [place], [address] Monocytes/100 WBC (Bld) 9.9 % Normal 0-10 [facility] Comment on above: Performed By: #### L 501.4021, M200.1000 #### [facility] [address] [place], [address] Neutrophils/100 WBC (Bld) 45.0 % Low 47-70 [facility] Comment on above: Performed By: #### L 501.4021, M200.1000 #### [facility] [address] [place], [address] Nucleated RBC (Bld) [#/Vol] 0 10*3/uL Normal 0-5 [facility] Comment on above: Performed By: #### L 501.4021, M200.1000 #### [facility] [address] [place], [address] Platelet mean volume (Bld) [Entitic vol] 11.0 fL Normal 6.2-12.0 [facility] Comment on above: Performed By: #### L 501.4021, M200.1000 #### [facility] [address] [place], [address] Platelets (Bld) [#/Vol] 165 10*3/uL Normal 150-450 [facility] Comment on above: Performed By: #### L 501.4021, M200.1000 #### [facility] [address] [place], [address] RBC (Bld) [#/Vol] 3.23 10*6/uL Low 4.2-5.4 [facility] Comment on above: Performed By: #### L 501.4021, M200.1000 #### [facility] [address] [place], [address] RDW SD 45.7 fl High 35.1-43.9 [facility] Comment on above: Performed By: #### L 501.4021, M200.1000 #### [facility] [address] [place], [address] WBC (Bld) [#/Vol] 6.9 10*3/uL Normal 4.4-11.0 [facility] Comment on above: Performed By: #### L 501.4021, M200.1000 #### [facility] [address] [place], [address] Carbon dioxide, total [Moles /volume] in Central venous bloodOrdered By: Sixto Alvarez on 02-22-2025 CO2 [Moles/Vol] 23.6 mmol/L 21.0-32.0 [facility] Chest PA and Lateralon 02-22 Chest PA and Lateral [facility] Imaging Services [address] [place] [address] Chest PA and Lateral MR#: [id number] Acct: [id number] Name: LIZA HANCOCK Rep #: [id number] : 1935 F 89 From: Nathaly Carney nd, MD PCP: Dr. Clinton Fowler DO Status: REG ER Study: Chest PA and Lateral Date of Exam: 02/22/25 Exam# [id number] Ordering Dr: Sixto Alvarez DO PROCEDURE: CHEST [...] Lateral IMPRESSION: NO ACUTE FINDINGS. Reading Location: [facility] CC: Dr. Sixto Alvarez DO; Dr. Clinton Fowler DO Bilingual Executive Assistant: Signed Normal [facility] Chloride assayOrdered By: Siva Alvarez on 02-22-2025 Chloride [Moles/Vol] 106 mmol/L 98-108 [facility] Emergency Department Summary on 02-22-2025 Emergency Department Summary [facility] Medical Records Department [address] [place] [address] Emergency Department Summary 02/22/25 MR#: [id number] Acct: [id number] Name: LIZA HANCOCK Rep #: [id number] : 1935 89 From: Sixto Alvarez DO [...] denies any shortness of breath or cough. [facility] Medical History GERD (gastroesophageal reflux disease) TIA [...] QHS cholesterol #30 tabs 12/03/17 01/11/23 Rx muobxmiq-htq-dmwic acid 0.4 1 ea PO BID supplement [...] or pain Unknown History (Tylenol Extra Strength) pztdgz-pbvplrag-bhyec se 3 cap PO .aqc #300 caps [...] due t (more content not included)... Normal [facility] Eosinophil percentageOrdered By: Sixto Alvarez on 02-22-2025 Eosinophils/100 WBC (Bld) 3.6 % 0-5 [facility] Erythrocyte distribution wid th ratioOrdered By: Sixto Alvarez on 02-22-2025 Erythrocyte distribution width (RBC) [Ratio] 13.1 % 11.6-14.6 [facility] Erythrocyte distribution wid th standard deviationOrdered By: Sixto Alvarez on 02-22-2025 Erythrocyte distribution width (RBC) [Ratio] 45.7 fl High 35.1-43.9 [facility] Glomerular filtration rate ( GFR) estimation/1.73 sq m using serum, plasma, or whole bOrdered By: Sixto Alvarez on 02-22-2025 GFR/1.73 sq M.predicted among non-blacks MDRD (S/P/Bld) [Vol rate/Area] 53 mL/min/{1.73_m2} Low >[address] [facility] Comment on above: mL/min/1.73m2 CKD-EP I Creatinine Equation (2020) Hematocrit Auto (Bld) [Volum e fraction]Ordered By: Sixto Alvarez on 02-22-2025 Hematocrit (Bld) [Volume fraction] 30.7 % Low 37-47 [facility] Hemoglobin measurementOrdere d By: Sixto Alvarez on 02-22-2025 Hemoglobin (Bld) [Mass/Vol] 10.1 g/dL Low 12.0-15. 0 [facility] Immature granulocytes/100 WB C Auto (Bld)Ordered By: Sixto Alvarez on 02-22-2025 Immature granulocytes/100 WBC (Bld) 0.600 % 0.0-0.9 [facility] Comment on above: IG% - Immature Granu locytes (promyelocytes, myelocytes and metamyelocytes) > 1% indicates that a LEFT SHIFT is Present. Ketones Test strip Ql (U)Ord ered By: Sixto Alvarez on 02-22-2025 Ketones Ql (U) Negative Negative [facility] MCV (mean corpuscular volume ) determinationOrdered By: Sixto Alvarez on 02-22-2025 MCV (RBC) [Entitic vol] 95.0 fL 81-99 [facility] Mean corpuscular hemoglobin (MCH) determinationOrdered By: Sixto Alvarez on 02-22-2025 MCH (RBC) [Entitic mass] 31.3 pg 27.0-32.0 [facility] Mean corpuscular hemoglobin concentration (MCHC) determinationOrdered By: Sixto Alvarez on 02-22-2025 MCHC (RBC) [Mass/Vol] 32.9 g/dL 32-36 [facility] Mean platelet volume determi nationOrdered By: Sixto Alvarez on 02-22-2025 Platelet mean volume (Bld) [Entitic vol] 11.0 fL 6.2-12.0 [facility] Microscopic analysis of urin e for red blood cells (RBC)Ordered By: Sixto Alvarez on 02-22-2025 Microscopic analysis of urine for red blood cells (RBC) 0 SEEN /hpf 0-5 [facility] Monocyte percentageOrdered B y: Sixto Alvarez on 02-22-2025 Monocytes/100 WBC (Bld) 9.9 % 0-10 [facility] Mucus LM Ql (Urine sed)Order ed By: Sixto Alvarez on 02-22-2025 Mucus Ql (Urine sed) RARE /hpf [facility] Neutrophil percentageOrdered By: Sixto Alvarez on 02-22-2025 Neutrophils/100 WBC (Bld) 45.0 % Low 47-70 [facility] Nitrite Test strip Ql (U)Ord ered By: Sixto Alvarez on 02-22-2025 Nitrite Ql (U) Negative Negative [facility] Nucleated red blood cell per centageOrdered By: Sixto Alvarez on 02-22-2025 Nucleated RBC/100 WBC (Bld) [Ratio] 0 % 0-5 [facility] Platelet countOrdered By: Siva Alvarez on 02-22-2025 Platelets (Bld) [#/Vol] 165 10*3/uL 150-450 [facility] Potassium measurement (mass/ volume)Ordered By: Sixto Alvarez on 02-22-2025 Potassium (Unsp spec) [Mass/Vol] 4.7 mmol/L 3.3-5.1 [facility] Comment on above: Hemolysis present, R esults could be affected. Protein Test strip Ql (U)Ord ered By: Sixto Alvarez on 02-22-2025 Protein Ql (U) 15 mg/dl High Negative [facility] RBC Auto (Bld) [#/Vol]Ordere d By: Sixto Alvarez on 02-22-2025 RBC (Bld) [#/Vol] 3.23 10*6/uL Low 4.2-5.4 [facility] Serum creatinine measurement (mass/volume)Ordered By: Sixto Alvarez on 02-22-2025 Creatinine [Mass/Vol] 1.01 mg/dL 0.70-1.20 [facility] Serum glucose measurement (m ass/volume)Ordered By: Sixto Alvarez on 02-22-2025 Glucose [Mass/Vol] 138 mg/dL High 70-99 [facility] Serum or plasma calcium beck urement (mass/volume)Ordered By: Sixto Alvarez on 02-22-2025 Calcium [Mass/Vol] 9.2 mg/dL 7.6-11.0 [facility] Serum or plasma urea nitroge n measurement (mass/volume)Ordered By: Sixto Alvarez on 02-22-2025 Urea nitrogen [Mass/Vol] 23 mg/dL High 4-19 [facility] Sodium levelOrdered By: Sixto Alvarez on 02-22-2025 Sodium [Moles/Vol] 139 mmol/L 133-145 [facility] Squamous epithelial cells de tection in urine sediment by light microscopyOrdered By: Sixto Alvarez on 02-22-2025 Epithelial cells.squamous LM Ql (Urine sed) 0-5 SEEN /hpf 5-10 [facility] Urinalysis, Completeon 02-22 EPI,RENAL 0-5 SEEN Normal 0-5 [facility] Comment on above: Order Comment: LUCIA TER SPECIMEN Performed By: #### L 400.0001 #### [facility] [place], [address] BACTERIA 2+ /hpf Normal None Seen [facility] Comment on above: Order Comment: LUCIA TER SPECIMEN Performed By: #### L 400.0001 #### [facility] [address] [place], [address] EPI,SQUAMOUS 0-5 SEEN Normal 5-10 [facility] Comment on above: Order Comment: LUCIA TER SPECIMEN Performed By: #### L 400.0001 #### [facility] [address] [place], [address] Mucus Ql (Urine sed) RARE Normal [facility] Comment on above: Order Comment: LUCIA TER SPECIMEN Performed By: #### L 400.0001 #### [facility] [address] [place], [address] WBC 5-10 SEEN Normal 0-5 [facility] Comment on above: Order Comment: LUCIA TER SPECIMEN Performed By: #### L 400.0001 #### [facility] [address] [place], [address] RBC 0 SEEN Normal 0-5 [facility] Comment on above: Order Comment: LUCIA TER SPECIMEN Performed By: #### L 400.0001 #### [facility] [address] [place], [address] Urine clarityOrdered By: Debbie Alvarez on 02-22-2025 Clarity (U) Clear Clear [facility] Urine color determinationOrd ered By: Sixto Alvarez on 02-22-2025 Color (U) Yellow Yellow [facility] Urine cultureOrdered By: Debbie Alvarez on 02-22-2025 Bacteria identified Cx Nom (U) Escherichia coli Abnormal [facility] Urine glucose detectionOrder ed By: Sixto Alvarez on 02-22-2025 Glucose Ql (U) Normal mg/dl Normal [facility] Urine leukocyte esterase det ection by dipstickOrdered By: Sixto Alvarez on 02-22-2025 Leukocyte esterase Test strip Ql (U) 100 /ul High Negative [facility] Urine pHOrdered By: Sixto hollingsworth on 02-22-2025 pH (U) 6.0 [pH] 5.0 - 8.0 [facility] Urine sediment bacteria coun t by microscopy (number/high power field)Ordered By: Sixto Alvarez on 02-22-2025 Bacteria LM.HPF (Urine sed) [#/Area] 2 /[HPF] None Seen [facility] Urine sediment renal epithel ial cell count by microscopy (number/high power field)Ordered By: Sixto Alvarez on 02-22-2025 Epithelial cells.renal LM.HPF (Urine sed) [#/Area] 0 /[HPF] 0-5 [facility] Urine specific gravity measu rementOrdered By: Sixto Alvarez on 02-22-2025 Specific gravity (U) [Rel density] 1.015 1.002-1.030 [facility] Urine urobilinogen measureme ntOrdered By: Sixto Alvarez on 02-22-2025 Urobilinogen Ql (U) Normal mg/dl Normal [facility] White blood cell (WBC) count Ordered By: Sixto Alvarez on 02-22-2025 WBC (Bld) [#/Vol] 6.9 10*3/uL 4.4-11.0 [facility] White blood cell countOrdere d By: Sixto Alvarez on 02-22-2025 White blood cell count 5-10 SEEN /hpf 0-5 [facility] Absolute lymphocyte countOrd ered By: Clinton Fowler on 01-01-2025 Lymphocytes Auto (Unsp spec) [#/Vol] 2.08 10*3/uL 0.83-4.51 [facility] Absolute neutrophil countOrd ered By: Clinton Fowler on 01-01-2025 Neutrophils (Bld) [#/Vol] 3.3 10*3/uL 2.0-7.7 [facility] Anion gap in Serum or Plasma Ordered By: Clinton Fowler on 01-01-2025 Anion gap [Moles/Vol] 10 mmol/L 5-15 [facility] Automated lymphocyte count a s percentage of total leukocytesOrdered By: Clinton Fowler on 01-01-2025 Lymphocytes/100 WBC Auto (Unsp spec) 32.7 % -41 [facility] BUN/creatinine ratioOrdered By: Clinton Fowler on 01-01-2025 Urea nitrogen/Creatinine [Mass ratio] 19.7 mg/mg 10- [facility] Basophil percentageOrdered B y: Clinton Fowler on 01-01-2025 Basophils/100 WBC (Bld) 1.4 % High 0-1 [facility] Bilirubin, totalOrdered By: Clinton Fowler on 01-01-2025 Bilirubin [Mass/Vol] 0.38 mg/dL 0.00-1.30 [facility] CBC W/Diff, Automatedon 12-14 Absolute Lymph 2.08 X10 3/uL Normal 0.83-4.51 [facility] Comment on above: Performed By: #### L 501.4021, M200.1000 #### [facility] [address] [place], [address] Absolute Neut 3.3 X10 3/uL Normal 2.0-7.7 [facility] Comment on above: Performed By: #### L 501.4021, M200.1000 #### [facility] [address] [place], [address] Basophils/100 WBC (Bld) 1.4 % High 0-1 [facility] Comment on above: Performed By: #### L 501.4021, M200.1000 #### [facility] [address] [place], [address] Eosinophils/100 WBC (Bld) 3.3 % Normal 0-5 [facility] Comment on above: Performed By: #### L 501.4021, M200.1000 #### [facility] [address] [place], [address] Erythrocyte distribution width (RBC) [Ratio] 13.3 % Normal 11.6-14.6 [facility] Comment on above: Performed By: #### L 501.4021, M200.1000 #### [facility] [address] [place], [address] Hematocrit (Bld) [Volume fraction] 31.6 % Low 37-47 [facility] Comment on above: Performed By: #### L 501.4021, M200.1000 #### [facility] [address] [place], [address] Hemoglobin (Bld) [Mass/Vol] 10.3 g/dL Low 12.0-15. 0 [facility] Comment on above: Performed By: #### L 501.4021, M200.1000 #### [facility] [address] [place], [address] IG% 0.300 Normal 0.0-0.9 [facility] Comment on above: Result Comment: IG% - Immature Granulocytes (promyelocytes, myelocytes and metamyelocytes) > 1% indicates that a LEFT SHIFT is Present. Performed By: #### L 501.4021, M200.1000 #### [facility] [address] [place], [address] Lymphocytes/100 WBC (Bld) 32.7 % Normal 19-41 [facility] Comment on above: Performed By: #### L 501.4021, M200.1000 #### [facility] [address] [place], [address] MCH (RBC) [Entitic mass] 30.6 pg Normal 27.0-32.0 [facility] Comment on above: Performed By: #### L 501.4021, M200.1000 #### [facility] [address] [place], [address] MCHC (RBC) [Mass/Vol] 32.6 g/dL Normal 32-36 [facility] Comment on above: Performed By: #### L 501.4021, M200.1000 #### [facility] [address] [place], [address] MCV (RBC) [Entitic vol] 93.8 fL Normal 81-99 [facility] Comment on above: Performed By: #### L 501.4021, M200.1000 #### [facility] [address] [place], [address] Monocytes/100 WBC (Bld) 10.0 % Normal 0-10 [facility] Comment on above: Performed By: #### L 501.4021, M200.1000 #### [facility] [address] [place], [address] Neutrophils/100 WBC (Bld) 52.3 % Normal 47-70 [facility] Comment on above: Performed By: #### L 501.4021, M200.1000 #### [facility] [address] [place], [address] Nucleated RBC (Bld) [#/Vol] 0 10*3/uL Normal 0-5 [facility] Comment on above: Performed By: #### L 501.4021, M200.1000 #### [facility] [address] [place], [address] Platelet mean volume (Bld) [Entitic vol] 11.5 fL Normal 6.2-12.0 [facility] Comment on above: Performed By: #### L 501.4021, M200.1000 #### [facility] [address] [place], [address] Platelets (Bld) [#/Vol] 179 10*3/uL Normal 150-450 [facility] Comment on above: Performed By: #### L 501.4021, M200.1000 #### [facility] [address] [place], [address] RBC (Bld) [#/Vol] 3.37 10*6/uL Low 4.2-5.4 [facility] Comment on above: Performed By: #### L 501.4021, M200.1000 #### [facility] [address] [place], [address] RDW SD 46.0 fl High 35.1-43.9 [facility] Comment on above: Performed By: #### L 501.4021, M200.1000 #### [facility] [address] [place], [address] WBC (Bld) [#/Vol] 6.4 10*3/uL Normal 4.4-11.0 [facility] Comment on above: Performed By: #### L 501.4021, M200.1000 #### [facility] [address] [place], [address] Carbon dioxide, total [Moles /volume] in Central venous bloodOrdered By: Clinton Fowler on 01-01-2025 CO2 [Moles/Vol] 23.1 mmol/L 21.0-32.0 [facility] Chloride assayOrdered By: Bettie Fowler on 01-01-2025 Chloride [Moles/Vol] 106 mmol/L 98-108 [facility] Comprehensive Metabolic Prof ilon 01-01-2025 Albumin [Mass/Vol] 3.5 g/dL Normal 3.4-4.8 [facility] Comment on above: Performed By: #### L 501.4021, M200.1000 #### [facility] [address] [place], [address] Albumin/Globulin [Mass ratio] 1.4 {ratio} Normal 0.9-2.4 [facility] Comment on above: Performed By: #### L 501.4021, M200.1000 #### [facility] [address] [place], [address] ALK PHOS 74 U/L Normal 35-104 [facility] Comment on above: Performed By: #### L 501.4021, M200.1000 #### [facility] [address] [place], [address] ALT [Catalytic activity/Vol] 24 U/L Normal <=34 [facility] Comment on above: Performed By: #### L 501.4021, M200.1000 #### [facility] [address] [place], [address] AST [Catalytic activity/Vol] 27 U/L Normal <=31 [facility] Comment on above: Performed By: #### L 501.4021, M200.1000 #### [facility] [address] [place], [address] Bilirubin [Mass/Vol] 0.38 mg/dL Normal 0.00-1.30 [facility] Comment on above: Performed By: #### L 501.4021, M200.1000 #### [facility] [address] [place], [address] BUN/CRE 19.7 RATIO Normal 10-20 [facility] Comment on above: Performed By: #### L 501.4021, M200.1000 #### [facility] [address] [place], [address] Calcium [Mass/Vol] 9.4 mg/dL Normal 7.6-11.0 [facility] Comment on above: Performed By: #### L 501.4021, M200.1000 #### [facility] [address] [place], [address] Chloride [Moles/Vol] 106 mmol/L Normal 98-108 [facility] Comment on above: Performed By: #### L 501.4021, M200.1000 #### [facility] [address] [place], [address] CO2 [Moles/Vol] 23.1 mmol/L Normal 21.0-32.0 [facility] Comment on above: Performed By: #### L 501.4021, M200.1000 #### [facility] [address] [place], [address] Creatinine [Mass/Vol] 0.95 mg/dL Normal 0.70-1.20 [facility] Comment on above: Performed By: #### L 501.4021, M200.1000 #### [facility] [address] [place], [address] GAP 10 Normal 5-15 [facility] Comment on above: Performed By: #### L 501.4021, M200.1000 #### [facility] [address] [place], [address] GFR/1.73 sq M.predicted among non-blacks MDRD (S/P/Bld) [Vol rate/Area] 58 mL/min/{1.73_m2} Low >[address] [facility] Comment on above: Result Comment: mL/m in/1.73m2 CKD-EPI Creatinine Equation (2020) Performed By: #### L 501.4021, M200.1000 #### [facility] [address] [place], [address] Globulin (S) [Mass/Vol] 2.6 g/dL Normal 2.2-4.2 [facility] Comment on above: Performed By: #### L 501.4021, M200.1000 #### [facility] [address] [place], [address] Glucose [Mass/Vol] 172 mg/dL High 70-99 [facility] Comment on above: Performed By: #### L 501.4021, M200.1000 #### [facility] [address] [place], [address] Potassium [Moles/Vol] 4.2 mmol/L Normal 3.3-5.1 [facility] Comment on above: Performed By: #### L 501.4021, M200.1000 #### [facility] [address] [place], [address] Sodium [Moles/Vol] 139 mmol/L Normal 133-145 [facility] Comment on above: Performed By: #### L 501.4021, M200.1000 #### [facility] [address] [place], [address] T PROT 6.1 g/dL Normal 5.9-8.4 [facility] Comment on above: Performed By: #### L 501.4021, M200.1000 #### [facility] [address] [place], [address] Urea nitrogen [Mass/Vol] 19 mg/dL Normal 4-19 [facility] Comment on above: Performed By: #### L 501.4021, M200.1000 #### [facility] [address] [place], [address] Eosinophil percentageOrdered By: Clinton Fowler on 01-01-2025 Eosinophils/100 WBC (Bld) 3.3 % 0-5 [facility] Erythrocyte distribution wid th ratioOrdered By: Clinton Fowler on 01-01-2025 Erythrocyte distribution width (RBC) [Ratio] 13.3 % 11.6-14.6 [facility] Erythrocyte distribution wid th standard deviationOrdered By: Clinton Fowler on 01-01-2025 Erythrocyte distribution width (RBC) [Ratio] 46.0 fl High 35.1-43.9 [facility] Glomerular filtration rate ( GFR) estimation/1.73 sq m using serum, plasma, or whole bOrdered By: Clinton Fowler on 01-01-2025 GFR/1.73 sq M.predicted among non-blacks MDRD (S/P/Bld) [Vol rate/Area] 58 mL/min/{1.73_m2} Low >[address] [facility] Comment on above: mL/min/1.73m2 CKD-EP I Creatinine Equation (2020) Hematocrit Auto (Bld) [Volum e fraction]Ordered By: Clinton Fowler on 01-01-2025 Hematocrit (Bld) [Volume fraction] 31.6 % Low 37-47 [facility] Hemoglobin A1con 01-01-2025 HbA1c (Bld) [Mass fraction] 7.1 % High <=5.6 [facility] Comment on above: Result Comment: Norm al < 5.7 % Prediabetic 5.7 - 6.4 % Diabetic >or= 6.5 % Please note range changes. Performed By: #### L 501.4021, M200.1000 #### [facility] [address] [place], [address] Hemoglobin A1c percentageOrd ered By: Clinton Fowler on 01-01-2025 HbA1c (Bld) [Mass fraction] 7.1 % High <5.7 [facility] Comment on above: Normal < 5.7 % Predi abetic 5.7 - 6.4 % Diabetic >or= 6.5 % Please note range changes. Hemoglobin measurementOrdere d By: Clinton Fowler on 01-01-2025 Hemoglobin (Bld) [Mass/Vol] 10.3 g/dL Low 12.0-15. 0 [facility] Immature granulocytes/100 WB C Auto (Bld)Ordered By: Clinton Fowler on 01-01-2025 Immature granulocytes/100 WBC (Bld) 0.300 % 0.0-0.9 [facility] Comment on above: IG% - Immature Granu locytes (promyelocytes, myelocytes and metamyelocytes) > 1% indicates that a LEFT SHIFT is Present. Laboratory - Chemistry and C hemistry - challengeOrdered By: Clinton Fowler on 01-01-2025 AST [Catalytic activity/Vol] 27 U/L <32 [facility] MCV (mean corpuscular volume ) determinationOrdered By: Clinton Fowler on 01-01-2025 MCV (RBC) [Entitic vol] 93.8 fL 81-99 [facility] Mean corpuscular hemoglobin (MCH) determinationOrdered By: Clinton Fowler on 01-01-2025 MCH (RBC) [Entitic mass] 30.6 pg 27.0-32.0 [facility] Mean corpuscular hemoglobin concentration (MCHC) determinationOrdered By: Clinton Fowler on 01-01-2025 MCHC (RBC) [Mass/Vol] 32.6 g/dL 32-36 [facility] Mean platelet volume determi nationOrdered By: Clinton Fowler on 01-01-2025 Platelet mean volume (Bld) [Entitic vol] 11.5 fL 6.2-12.0 [facility] Monocyte percentageOrdered B y: Clinton Fowler on 01-01-2025 Monocytes/100 WBC (Bld) 10.0 % 0-10 [facility] Neutrophil percentageOrdered By: Clinton Fowler on 01-01-2025 Neutrophils/100 WBC (Bld) 52.3 % 47-70 [facility] Nucleated red blood cell per centageOrdered By: Clinton Fowler on 01-01-2025 Nucleated RBC/100 WBC (Bld) [Ratio] 0 % 0-5 [facility] Platelet countOrdered By: Bettie Fowler on 01-01-2025 Platelets (Bld) [#/Vol] 179 10*3/uL 150-450 [facility] Potassium measurement (mass/ volume)Ordered By: Clinton Fowler on 01-01-2025 Potassium (Unsp spec) [Mass/Vol] 4.2 mmol/L 3.3-5.1 [facility] RBC Auto (Bld) [#/Vol]Ordere d By: Clinton Fowler on 01-01-2025 RBC (Bld) [#/Vol] 3.37 10*6/uL Low 4.2-5.4 [facility] Serum creatinine measurement (mass/volume)Ordered By: Clinton Fowler on 01-01-2025 Creatinine [Mass/Vol] 0.95 mg/dL 0.70-1.20 [facility] Serum globulin measurementOr dered By: Clinton Fowler on 01-01-2025 Globulin (S) [Mass/Vol] 2.6 g/dL 2.2-4.2 [facility] Serum glucose measurement (m ass/volume)Ordered By: Clinton Fowler on 01-01-2025 Glucose [Mass/Vol] 172 mg/dL High 70-99 [facility] Serum or plasma alanine lay otransferase (ALT) measurementOrdered By: Clinton Fowler on 01-01-2025 ALT [Catalytic activity/Vol] 24 U/L <35 [facility] Serum or plasma albumin beck urement (mass/volume)Ordered By: Clinton Fowler on 01-01-2025 Albumin [Mass/Vol] 3.5 g/dL 3.4-4.8 [facility] Serum or plasma albumin/glob ulin mass ratioOrdered By: Clinton Fowler on 01-01-2025 Albumin/Globulin [Mass ratio] 1.4 {ratio} 0.9-2.4 [facility] Serum or plasma alkaline hector sphatase measurementOrdered By: Clinton Fowler on 01-01-2025 ALP [Catalytic activity/Vol] 74 U/L 35-104 [facility] Serum or plasma calcium beck urement (mass/volume)Ordered By: Clinton Fowler on 01-01-2025 Calcium [Mass/Vol] 9.4 mg/dL 7.6-11.0 [facility] Serum or plasma urea nitroge n measurement (mass/volume)Ordered By: Clinton Fowler on 01-01-2025 Urea nitrogen [Mass/Vol] 19 mg/dL 4-19 [facility] Sodium levelOrdered By: Clinton Fowler on 01-01-2025 Sodium [Moles/Vol] 139 mmol/L 133-145 [facility] Total proteinOrdered By: Brynn Fowler on 01-01-2025 Protein [Mass/Vol] 6.1 g/dL 5.9-8.4 [facility] White blood cell (WBC) count Ordered By: Clinton Fowler on 01-01-2025 WBC (Bld) [#/Vol] 6.4 10*3/uL 4.4-11.0 [facility] Gastroenterology Visit Repor ton 12-11-2024 Gastroenterology Visit Report [facility] [address] [place] [address] OFFICE VISIT Date of Service: 12/11/24 MR#: [id number] Acct: [id number] Name: LIZA HANCOCK Kimmy Rep #: [id number] : 1935 Provider: Hung Adames DO Age/Sex: 89/F Location: [facility] [place] Status: Signed Intake Vital Signs 06/07/23 22:34 12/14/24 15:08 Height 5 ft 3 in 5 [...] QHS cholesterol #30 tabs 12/03/17 12/11/24 Rx tgrkzjis-iim-vqcgu acid 0.4 1 ea PO BID supplement [...] 12/11/24 Rx monohydrate/macrocrys tals 100 mg capsule eeqily-ptxsckcv-snfcb se 3 cap PO .aqc #300 caps [...] does not use HPI HPI Details: LIZA HANCOCK, is a 89 F who presents to the office today for follow up. PMH includes DMII (metformin), Alzheimer disease, anemia r/t CKD stage 3; Sjogrens syndrome, fibromyalgia. PCP OV noting GERD and loose stools daily with bowel incontinence without abdominal pain since 2018 at minimum. Utilizes OTC immodium with some positive effect, has concerns regarding constipation with use of this. *BGI established .. with referral from PCP. reports one loose [...] total fecal fat elevated, elastase L75 OV 1.26.23 Loose stools ??? biochemical workup, stool studies, imaging. ? Biochemical workup CBC, ESR, coagulation, ferritin, LFT, CRP, TS (more content not included)... Normal [facility] Urine Cultureon 06-30-2024 [facility] Presumptive E. coli Gonzales Count >100,000 Presumptive E. coli: REACTION Ampicillin [...] TMP SMX Islt JIMI <=20 S Normal [facility] Comment on above: Performed By: #### M 100.2200 ####[facility] [address] [place], [address] Urine Cultureon 06-29-2024 [facility] UNABLE TO CHANGE INTERFACE TO CLEAN CATCH Urine Culture Normal [facility] Comment on above: Performed By: #### M 100.2200 ####[facility] [address] [place], [address] Abdomen/Pelvis without Conto n 06-28-2024 Abdomen/Pelvis without Cont [facility] Imaging Services [address] [place], [place] [id number] [phone] Abdomen/Pelvis without Cont MR#: [id number] Acct: [id number] Name: LIZA HANCOCK Rep #: [id number] : 1935 F 89 From: Lauren Sahni MD PCP: Dr. Clinton Fowler, DO Status: REG ER Study: Abdomen/Pelvis without Cont Date of Exam: 06/15 11/06 Exam# [id number] Ordering Dr: Nikita Alvarado MD [id number] INDICATION: Right lower quadrant pain. PATIENT HAS [...] Nikita Alvarado MD; Dr. Clinton Fowler DO Bilingual Executive Assistant: Signed Normal [facility] CBC W/Diff, Automatedon 06-15 Absolute Lymph 2.45 X10 3/uL Normal 0.83-4.51 [facility] Comment on above: Performed By: #### L 100.0100, L500.4050 #### [facility] Laboratory [address] [place], [address] Absolute Neut 4.5 X10 3/uL Normal 2.0-7.7 [facility] Comment on above: Performed By: #### L 100.0100, L500.4050 #### [facility] [address] [place], [address] Basophils/100 WBC (Bld) 0.9 % Normal 0-1 [facility] Comment on above: Performed By: #### L 100.0100, L500.4050 #### [facility] [address] [place], [address] Eosinophils/100 WBC (Bld) 3.7 % Normal 0-5 [facility] Comment on above: Performed By: #### L 100.0100, L500.4050 #### [facility] [address] [place], [address] Erythrocyte distribution width (RBC) [Ratio] 13.2 % Normal 11.6-14.6 [facility] Comment on above: Performed By: #### L 100.0100, L500.4050 #### [facility] [address] [place], [address] Hematocrit (Bld) [Volume fraction] 33.9 % Low 37-47 [facility] [facility] Comment on above: Performed By: #### L 100.0100, L500.4050 #### [facility] [address] [place], [address] Hemoglobin (Bld) [Mass/Vol] 11.2 g/dL Low 12.0-15. 0 [facility] Comment on above: Performed By: #### L 100.0100, L500.4050 #### [facility] [address] [place], [address] IG% 0.600 Normal 0.0-0.9 [facility] Comment on above: Result Comment: IG% - Immature Granulocytes (promyelocytes, myelocytes and metamyelocytes) > 1% indicates that a LEFT SHIFT is Present. Performed By: #### L 100.0100, L500.4050 #### [facility] [address] [place], [address] Lymphocytes/100 WBC (Bld) 30.6 % Normal 19-41 [facility] Comment on above: Performed By: #### L 100.0100, L500.4050 #### [facility] [address] [place], [address] MCH (RBC) [Entitic mass] 31.6 pg Normal 27.0-32.0 [facility] Comment on above: Performed By: #### L 100.0100, L500.4050 #### [facility] [address] [place], [address] MCHC (RBC) [Mass/Vol] 33.0 g/dL Normal 32-36 [facility] Comment on above: Performed By: #### L 100.0100, L500.4050 #### [facility] [address] [place], [address] MCV (RBC) [Entitic vol] 95.8 fL Normal 81-99 [facility] Comment on above: Performed By: #### L 100.0100, L500.4050 #### [facility] [address] [place], [address] Monocytes/100 WBC (Bld) 8.5 % Normal 0-10 [facility] Comment on above: Performed By: #### L 100.0100, L500.4050 #### [facility] [address] [place], [address] Neutrophils/100 WBC (Bld) 55.7 % Normal 47-70 [facility] Comment on above: Performed By: #### L 100.0100, L500.4050 #### [facility] [address] [place], [address] Nucleated RBC (Bld) [#/Vol] 0 10*3/uL Normal 0-5 [facility] Comment on above: Performed By: #### L 100.0100, L500.4050 #### [facility] [address] [place], [address] Platelet mean volume (Bld) [Entitic vol] 10.4 fL Normal 6.2-12.0 [facility] Comment on above: Performed By: #### L 100.0100, L500.4050 #### [facility] [address] [place], [address] Platelets (Bld) [#/Vol] 208 10*3/uL Normal 150-450 [facility] Comment on above: Performed By: #### L 100.0100, L500.4050 #### [facility] [address] [place], [address] RBC (Bld) [#/Vol] 3.54 10*6/uL Low 4.2-5.4 [facility] Comment on above: Performed By: #### L 100.0100, L500.4050 #### [facility] [address] [place], [address] RDW SD 46.5 fl High 35.1-43.9 [facility] Comment on above: Performed By: #### L 100.0100, L500.4050 #### [facility] [address] [place], [address] WBC (Bld) [#/Vol] 8.0 10*3/uL Normal 4.4-11.0 [facility] Comment on above: Performed By: #### L 100.0100, L500.4050 #### [facility] [address] [place], [address] Comprehensive Metabolic Prof [facility] 06-28-2024 Albumin [Mass/Vol] 3.3 g/dL Normal 3.2-5.0 [facility] Comment on above: Performed By: #### L 100.0100, L500.4050 #### [facility] [address] [place], [address] Albumin/Globulin [Mass ratio] 1.0 {ratio} Normal 0.9-2.4 [facility] Comment on above: Performed By: #### L 100.0100, L500.4050 #### [facility] [address] [place], [address] ALK P 79 U/L Normal 45-117 [facility] Comment on above: Performed By: #### L 100.0100, L500.4050 #### [facility] [address] [place], [address] ALT [Catalytic activity/Vol] 24 U/L Normal 13-56 [facility] Comment on above: Performed By: #### L 100.0100, L500.4050 #### [facility] [address] [place], [address] AST [Catalytic activity/Vol] 19 U/L Normal 15-37 [facility] Comment on above: Performed By: #### L 100.0100, L500.4050 #### [facility] [address] [place], [address] Bilirubin [Mass/Vol] 0.30 mg/dL Normal 0.20-1.00 [facility] Comment on above: Result Comment: For patients on eltrombopag therapy, use of Dimension [place] TBIL is not recommended. Performed By: #### L 100.0100, L500.4050 #### [facility] [address] [place], [address] BUN/CRE 26.7 RATIO High 10-20 [facility] Comment on above: Performed By: #### L 100.0100, L500.4050 #### [facility] [address] [place], [address] CA,Total 9.0 mg/dL Normal 8.5-10.1 [facility] Comment on above: Performed By: #### L 100.0100, L500.4050 #### [facility] [address] [place], [address] Chloride [Moles/Vol] 107 mmol/L Normal 98-107 [facility] Comment on above: Performed By: #### L 100.0100, L500.4050 #### [facility] [address] [place], [address] CO2 [Moles/Vol] 30.0 mmol/L Normal 21.0-32.0 [facility] Comment on above: Performed By: #### L 100.0100, L500.4050 #### [facility] [address] [place], [address] Creatinine [Mass/Vol] 1.05 mg/dL High 0.55-1.02 [facility] Comment on above: Result Comment: The validity of the calculated GFR GFRAA in patients over 70 years has not been determined. Clinical correlation is essential. Performed By: #### L 100.0100, L500.4050 #### [facility] [address] [place], [address] ECRCL 37.79 ml/min Normal [facility] Comment on above: Performed By: #### L 100.0100, L500.4050 #### [facility] [address] [place], [address] EST GFR - AA 64 mL/min Normal >60 [facility] Comment on above: Result Comment: Afri can [place] GFR Calc Performed By: #### L 100.0100, L500.4050 #### [facility] [address] [place], [address] GAP 1 Low 5-15 [facility] Comment on above: Performed By: #### L 100.0100, L500.4050 #### [facility] [address] [place], [address] GFR/1.73 sq M.predicted among non-blacks MDRD (S/P/Bld) [Vol rate/Area] 53 mL/min/{1.73_m2} Low >[address] [facility] Comment on above: Result Comment: Non- GFR Calc Performed By: #### L 100.0100, L500.4050 #### [facility] [address] [place], [address] Globulin (S) [Mass/Vol] 3.2 g/dL Normal 2.2-4.2 [facility] Comment on above: Performed By: #### L 100.0100, L500.4050 #### [facility] [address] [place], [address] Glucose [Mass/Vol] 176 mg/dL High 74-106 [facility] Comment on above: Result Comment: Fast ing Glucose result greater than or equal to 126 mg/dL suggests DIABETES MELLITUS per A.D.A. criteria. Performed By: #### L 100.0100, L500.4050 #### [facility] [address] [place], [address] Potassium [Moles/Vol] 4.4 mmol/L Normal 3.5-5.1 [facility] Comment on above: Performed By: #### L 100.0100, L500.4050 #### [facility] [address] [place], [address] Sodium [Moles/Vol] 139 mmol/L Normal 136-145 [facility] Comment on above: Performed By: #### L 100.0100, L500.4050 #### [facility] [address] [place], [address] T PROT 6.5 g/dL Normal 6.4-8.2 [facility] Comment on above: Performed By: #### L 100.0100, L500.4050 #### [facility] [address] [place], [address] Urea nitrogen [Mass/Vol] 28 mg/dL High 7-18 [facility] Comment on above: Performed By: #### L 100.0100, L500.4050 #### [facility] [address] [place], [address] Emergency Department Summary on 06-28-2024 Emergency Department Summary [facility] Medical Records Department [address] [place] [address] Emergency Department Summary 06/28/24 MR#: [id number] Acct: [id number] Name: LIZA HANCOCK Rep #: [id number] : 1935 89 From: Nikita Alvarado MD [...] today. She ate earlier without any problem. [facility] Medical History GERD (gastroesophageal reflux disease) TIA [...] QHS cholesterol #30 tabs 12/03/17 01/11/23 Rx [id number] acid 0.4 1 ea PO BID supplement [...] pain 06/07/23 Unknown History (Tylenol Extra Strength) [id number] se See Rx Instructions PO .COMPLEX 07/02/23 [...] and cl (more content not included)... Normal [facility] Urinalysis, Completeon 06-28 BACTERIA 3+ /hpf Normal None Seen [facility] Comment on above: Order Comment: LUCIA TER SPECIMEN Performed By: #### L 400.0001 #### [facility] [address] [place], [address] EPI,SQUAMOUS 0-5 SEEN Normal 5-10 [facility] Comment on above: Order Comment: LUCIA TER SPECIMEN Performed By: #### L 400.0001 #### [facility] [address] [place], [address] Mucus Ql (Urine sed) 1+ /hpf Normal [facility] Comment on above: Order Comment: LUCIA TER SPECIMEN Performed By: #### L 400.0001 #### [facility] [address] [place], [address] WBC 5-10 SEEN Normal 0-5 [facility] Comment on above: Order Comment: LUCIA TER SPECIMEN Performed By: #### L 400.0001 #### [facility] [address] [place], [address] RBC 0 SEEN Normal 0-5 [facility] Comment on above: Order Comment: LUCIA TER SPECIMEN Performed By: #### L 400.0001 #### [facility] [address] [place], [address] Gastroenterology Visit Repor ton 06-09-2024 Gastroenterology Visit Report [facility] [address] [place] [address] OFFICE VISIT Date of Service: 06/09/24 MR#: [id number] Acct: [id number] Name: LIZA HANCOCK Rep #: [id number] : 1935 Provider: Hung Adames DO Age/Sex: 89/F [place] [facility] [place] Status: Signed Intake Vital Signs 06/07/23 [...] HPI HPI Chief Complaint: fatigue Details: LIZA HANCOCK, is a 89 F who presents to [...] fibroid uterus; pulmonary basilar atelectasis versus scarring. [facility] hospitalization 09.16.22-09.20.22 [facility] ED presentation for change in mental [...] between Fr (more content not included)... Normal [facility] Culture, urineOrdered By: Bettie Fowler on 09-28-2023 Bacteria identified Cx Nom (U) Klebsiella oxytoca [facility] Absolute lymphocyte countOrd ered By: Nikki Jacques on 06-07-2023 Lymphocytes Auto (Unsp spec) [#/Vol] 2.56 10*3/uL 0.83-4.51 [facility] Basophil percentageOrdered B y: Nikki Jacques on 06-07-2023 Basophils/100 WBC (Bld) 1.1 % 0-1 [facility] Chloride [Moles/Vol] 102 mmol/L 98-107 [facility] Eosinophils/100 WBC (Bld) 4.8 % 0-5 [facility] Glucose [Mass/Vol] 287 mg/dL 74-106 [facility] Comment on above: Glucose result great er than or equal to 200 mg/dLsuggests DIABETES MELLITUS per A.D.A. criteria. Neutrophils (Bld) [#/Vol] 2.8 10*3/uL 2.0-7.7 [facility] Neutrophils/100 WBC (Bld) 43.4 % 47-70 [facility] Potassium [Moles/Vol] 4.1 mmol/L 3.5-5.1 [facility] Sodium [Moles/Vol] 134 mmol/L 136-145 [facility] WBC (Bld) [#/Vol] 6.4 10*3/uL 4.4-11.0 [facility] Blood erythrocytes count (nu mber/volume)Ordered By: Nikki Jacques on 06-07-2023 RBC (Bld) [#/Vol] 3.26 10*6/uL 4.2-5.4 [facility] Blood hemoglobin measurement (mass/volume)Ordered By: Nikki Jacques on 06-07-2023 Hemoglobin (Bld) [Mass/Vol] 9.6 g/dL 12.0-15. 0 [facility] Blood lymphocytes/100 leukoc ytesOrdered By: Nikki Jacques on 06-07-2023 Lymphocytes/100 WBC (Bld) 39.9 % 19-41 [facility] Blood monocytes/100 leukocyt esOrdered By: Nikki Jacques on 06-07-2023 Monocytes/100 WBC (Bld) 10.5 % 0-10 [facility] Blood platelet adequacy dete ction by light microscopyOrdered By: Nikki Jacques on 06-07-2023 Platelets LM Ql (Bld) MOD DEC ADEQ [facility] Blood platelet mean volumeOr dered By: Nikki Jacques on 06-07-2023 Platelet mean volume (Bld) [Entitic vol] 12.1 fL 6.2-12.0 [facility] Determination of erythrocyte mean corpuscular volume (MCV)Ordered By: Nikki Jacqeus on 06-07-2023 MCV (RBC) [Entitic vol] 90.5 fL 81-99 [facility] Hematocrit Auto (Bld) [Volum e fraction]Ordered By: Nikki Jacques on 06-07-2023 Hematocrit (Bld) [Volume fraction] 29.5 % 37-47 [facility] - Chemistry and C hemistry - challengeOrdered By: Nikki Jacques on 06-07-2023 CO2 [Moles/Vol] 27.0 mmol/L 21.0-32.0 [facility] Urea nitrogen/Creatinine [Mass ratio] 15.7 mg/mg 10-20 [facility] - Hematology and Cell countsOrdered By: Nikki Jacques on 06-07-2023 Erythrocyte distribution width (RBC) [Entitic vol] 44.2 fL 35.1-43.9 [facility] Erythrocyte distribution width (RBC) [Ratio] 13.2 % 11.6-14.6 [facility] Immature granulocytes/100 WBC (Bld) 0.300 % 0.0-0.9 [facility] Comment on above: IG% - Immature Granu locytes (promyelocytes, myelocytes and metamyelocytes) > 1% indicates that a LEFT SHIFT is Present. MCH (RBC) [Entitic mass] 29.4 pg 27.0-32.0 [facility] Nucleated RBC/100 WBC (Bld) [Ratio] 0 % 0-5 [facility] MCHC Auto (RBC) [Mass/Vol]Or dered By: Nikki Jacques on 06-07-2023 MCHC (RBC) [Mass/Vol] 32.5 g/dL 32-36 [facility] No Panel InformationOrdered By: Nikki Jacques on 06-07-2023 Estimated Creatinine Clearance Calc 30.36 ml/min [facility] Estimated GFR (MDRD) Amer 62 mL/min >60 [facility] Comment on above: GFR Calc Estimated GFR (MDRD) Non-Af Amer 51 mL/min >60 [facility] Comment on above: Non- GFR Calc Troponin I High Sensitivity 9 pg/mL 3.0-54.0 [facility] Comment on above: Please Note: New Mesha t Units and Gender Specific Reference Ranges. For more information see Policy Stat Procedure [place] High Sensitivity Troponin (TNIH) and attachments. Platelets bldOrdered By: Selin Jacques on 06-07-2023 Platelets (Bld) [#/Vol] 77 10*3/uL 150-450 [facility] Serum or plasma calcium beck urement (mass/volume)Ordered By: Nikki Jacques on 06-07-2023 Calcium [Mass/Vol] 8.1 mg/dL 8.5-10.1 [facility] Serum or plasma creatinine m easurement (mass/volume)Ordered By: Nikki Jacques on 06-07-2023 Creatinine [Mass/Vol] 1.08 mg/dL 0.55-1.02 [facility] Comment on above: The validity of the calculated GFR & GFRAA in patients over 70 years has not been determined. Clinical correlation is essential. Serum or plasma urea nitroge n measurement (mass/volume)Ordered By: Nikki Jacques on 06-07-2023 Urea nitrogen [Mass/Vol] 17 mg/dL 7-18 [facility] Thin prep Papanicolaou smear with manual screeningOrdered By: Nikki Jacques on 06-07-2023 Thin prep Papanicolaou smear with manual screening 5 5-15 [facility] Culture, urineOrdered By: Bettie Fowler on 04-27-2023 Bacteria identified Cx Nom (U) Proteus mirabilis [facility] Bacteria identified Cx Nom (U) Escherichia coli [facility] Bacteria identified Cx Nom (U) Proteus mirabilis [facility] Bacteria identified Cx Nom (U) Escherichia coli [facility] Absolute lymphocyte countOrd ered By: Clinton Fowler on 04-25-2023 Lymphocytes Auto (Unsp spec) [#/Vol] 1.81 10*3/uL 0.83-4.51 [facility] Basophil percentageOrdered B y: Clinton Fowler on 04-25-2023 Basophils/100 WBC (Bld) 1.0 % 0-1 [facility] Chloride [Moles/Vol] 101 mmol/L 98-107 [facility] Eosinophils/100 WBC (Bld) 2.2 % 0-5 [facility] Glucose [Mass/Vol] 101 mg/dL 74-106 [facility] Comment on above: Fasting Glucose resu lt from 100 to 125 mg/dL suggests IMPAIRED HOMEOSTASIS per A.D.A. criteria. Neutrophils (Bld) [#/Vol] 5.5 10*3/uL 2.0-7.7 [facility] Neutrophils/100 WBC (Bld) 66.2 % 47-70 [facility] Potassium [Moles/Vol] 4.0 mmol/L 3.5-5.1 [facility] Sodium [Moles/Vol] 133 mmol/L 136-145 [facility] WBC (Bld) [#/Vol] 8.3 10*3/uL 4.4-11.0 [facility] Blood erythrocytes count (nu mber/volume)Ordered By: Clinton Fowler on 04-25-2023 RBC (Bld) [#/Vol] 3.81 10*6/uL 4.2-5.4 [facility] Blood hemoglobin measurement (mass/volume)Ordered By: Clinton Fowler on 04-25-2023 Hemoglobin (Bld) [Mass/Vol] 11.4 g/dL 12.0-15. 0 [facility] Blood lymphocytes/100 leukoc ytesOrdered By: Clinton Fowler on 04-25-2023 Lymphocytes/100 WBC (Bld) 21.8 % 19-41 [facility] Blood monocytes/100 leukocyt esOrdered By: Clinton Fowler on 04-25-2023 Monocytes/100 WBC (Bld) 8.4 % 0-10 [facility] Blood platelet mean volumeOr dered By: Clinton Fowler on 04-25-2023 Platelet mean volume (Bld) [Entitic vol] 10.9 fL 6.2-12.0 [facility] Determination of erythrocyte mean corpuscular volume (MCV)Ordered By: Clinton Fowler on 04-25-2023 MCV (RBC) [Entitic vol] 92.1 fL 81-99 [facility] Hematocrit Auto (Bld) [Volum e fraction]Ordered By: Clinton Fowler on 04-25-2023 Hematocrit (Bld) [Volume fraction] 35.1 % 37-47 [facility] Iron measurement (mass/mass) Ordered By: Clinton Fowler on 04-25-2023 Iron (Unsp spec) [Mass/Mass] 44 ug/dL 50-170 [facility] - Chemistry and C hemistry - challengeOrdered By: Clinton Fowler on 04-25-2023 CO2 [Moles/Vol] 25.0 mmol/L 21.0-32.0 [facility] Urea nitrogen/Creatinine [Mass ratio] 20.4 mg/mg 10-20 [facility] - Hematology and Cell countsOrdered By: Clinton Fowler on 04-25-2023 Erythrocyte distribution width (RBC) [Entitic vol] 42.7 fL 35.1-43.9 [facility] Erythrocyte distribution width (RBC) [Ratio] 12.7 % 11.6-14.6 [facility] Immature granulocytes/100 WBC (Bld) 0.400 % 0.0-0.9 [facility] Comment on above: IG% - Immature Granu locytes (promyelocytes, myelocytes and metamyelocytes) > 1% indicates that a LEFT SHIFT is Present. MCH (RBC) [Entitic mass] 29.9 pg 27.0-32.0 [facility] Nucleated RBC/100 WBC (Bld) [Ratio] 0 % 0-5 [facility] MCHC Auto (RBC) [Mass/Vol]Or dered By: Clinton Fowler on 04-25-2023 MCHC (RBC) [Mass/Vol] 32.5 g/dL 32-36 [facility] No Panel InformationOrdered By: Clinton Fowler on 04-25-2023 Estimated GFR (MDRD) Amer 65 mL/min >60 [facility] Comment on above: GFR Calc Estimated GFR (MDRD) Non-Af Amer 54 mL/min >60 [facility] Comment on above: Non- GFR Calc Platelets bldOrdered By: Brynn Fowler on 04-25-2023 Platelets (Bld) [#/Vol] 251 10*3/uL 150-450 [facility] Serum or plasma calcium beck urement (mass/volume)Ordered By: Clinton Fowler on 04-25-2023 Calcium [Mass/Vol] 9.6 mg/dL 8.5-10.1 [facility] Serum or plasma creatinine m easurement (mass/volume)Ordered By: Clinton Fowler on 04-25-2023 Creatinine [Mass/Vol] 1.03 mg/dL 0.55-1.02 [facility] Comment on above: The validity of the calculated GFR & GFRAA in patients over 70 years has not been determined. Clinical correlation is essential. Serum or plasma ferritin jose carlos surement (mass/volume)Ordered By: Clinton Fowler on 04-25-2023 Ferritin [Mass/Vol] 46 ng/mL 8-252 [facility] Serum or plasma urea nitroge n measurement (mass/volume)Ordered By: Clinton Fowler on 04-25-2023 Urea nitrogen [Mass/Vol] 21 mg/dL 7-18 [facility] Thin prep Papanicolaou smear with manual screeningOrdered By: Clinton Fowler on 04-25-2023 Thin prep Papanicolaou smear with manual screening 7 5-15 [facility] Absolute lymphocyte countOrd ered By: Clinton Fowler on 01-24-2023 Lymphocytes Auto (Unsp spec) [#/Vol] 2.27 10*3/uL 0.83-4.51 [facility] Basophil percentageOrdered B y: Clinton Fowler on 01-24-2023 Basophils/100 WBC (Bld) 0.9 % 0-1 [facility] Eosinophils/100 WBC (Bld) 2.3 % 0-5 [facility] Neutrophils (Bld) [#/Vol] 3.6 10*3/uL 2.0-7.7 [facility] Neutrophils/100 WBC (Bld) 53.8 % 47-70 [facility] WBC (Bld) [#/Vol] 6.7 10*3/uL 4.4-11.0 [facility] Blood erythrocytes count (nu mber/volume)Ordered By: Clinton Fowler on 01-24-2023 RBC (Bld) [#/Vol] 2.85 10*6/uL 4.2-5.4 [facility] Blood hemoglobin measurement (mass/volume)Ordered By: Clinton Fowler on 01-24-2023 Hemoglobin (Bld) [Mass/Vol] 8.9 g/dL 12.0-15. 0 [facility] Blood lymphocytes/100 leukoc ytesOrdered By: Clinton Fowler on 01-24-2023 Lymphocytes/100 WBC (Bld) 34.1 % 19-41 [facility] Blood monocytes/100 leukocyt esOrdered By: Clinton Fowler on 01-24-2023 Monocytes/100 WBC (Bld) 8.4 % 0-10 [facility] Blood platelet mean volumeOr dered By: Clinton Fowler on 01-24-2023 Platelet mean volume (Bld) [Entitic vol] 10.5 fL 6.2-12.0 [facility] Determination of erythrocyte mean corpuscular volume (MCV)Ordered By: Clinton Fowler on 01-24-2023 MCV (RBC) [Entitic vol] 96.8 fL 81-99 [facility] Hematocrit Auto (Bld) [Volum e fraction]Ordered By: Clinton Fowler on 01-24-2023 Hematocrit (Bld) [Volume fraction] 27.6 % 37-47 [facility] Iron measurement (mass/mass) Ordered By: Clinton Fowler on 01-24-2023 Iron (Unsp spec) [Mass/Mass] 41 ug/dL 50-170 [facility] [facility] - Chemistry and C hemistry - challengeOrdered By: Clinton Fowler on 01-24-2023 Cobalamin (Vitamin B12) [Mass/Vol] 1536 pg/mL 211-911 [facility] Laboratory - Hematology and Cell countsOrdered By: Clinton Fowler on 01-24-2023 Erythrocyte distribution width (RBC) [Entitic vol] 49.1 fL 35.1-43.9 [facility] Erythrocyte distribution width (RBC) [Ratio] 13.9 % 11.6-14.6 [facility] Immature granulocytes/100 WBC (Bld) 0.500 % 0.0-0.9 [facility] Comment on above: IG% - Immature Granu locytes (promyelocytes, myelocytes and metamyelocytes) > 1% indicates that a LEFT SHIFT is Present. MCH (RBC) [Entitic mass] 31.2 pg 27.0-32.0 [facility] Nucleated RBC/100 WBC (Bld) [Ratio] 0 % 0-5 [facility] MCHC Auto (RBC) [Mass/Vol]Or dered By: Clinton Fowler on 01-24-2023 MCHC (RBC) [Mass/Vol] 32.2 g/dL 32-36 [facility] Platelets bldOrdered By: Brynn Fowler on 01-24-2023 Platelets (Bld) [#/Vol] 242 10*3/uL 150-450 [facility] Serum or plasma ferritin jose carlos surement (mass/volume)Ordered By: Clinton DavisDany on 01-24-2023 Ferritin [Mass/Vol] 66 ng/mL 8-252 [facility] Absolute lymphocyte countOrd ered By: Sixto Braswell on 01-14-2023 Lymphocytes Auto (Unsp spec) [#/Vol] 2.33 10*3/uL 0.83-4.51 [facility] Basophil percentageOrdered B y: Sixto Braswell on 01-14-2023 Basophils/100 WBC (Bld) 1.3 % 0-1 [facility] Chloride [Moles/Vol] 114 mmol/L 98-107 [facility] Eosinophils/100 WBC (Bld) 3.6 % 0-5 [facility] Glucose [Mass/Vol] 109 mg/dL 74-106 [facility] Comment on above: Fasting Glucose resu lt from 100 to 125 mg/dL suggests IMPAIRED HOMEOSTASIS per A.D.A. criteria. Neutrophils (Bld) [#/Vol] 4.1 10*3/uL 2.0-7.7 [facility] Neutrophils/100 WBC (Bld) 54.5 % 47-70 [facility] Potassium [Moles/Vol] 3.8 mmol/L 3.5-5.1 [facility] Sodium [Moles/Vol] 143 mmol/L 136-145 [facility] WBC (Bld) [#/Vol] 7.5 10*3/uL 4.4-11.0 [facility] Blood erythrocytes count (nu mber/volume)Ordered By: Sixto Braswell on 01-14-2023 RBC (Bld) [#/Vol] 2.89 10*6/uL 4.2-5.4 [facility] Blood hemoglobin measurement (mass/volume)Ordered By: Sixto Braswell on 01-14-2023 Hemoglobin (Bld) [Mass/Vol] 9.3 g/dL 12.0-15. 0 [facility] Blood lymphocytes/100 leukoc ytesOrdered By: Sixto Braswell on 01-14-2023 Lymphocytes/100 WBC (Bld) 31.1 % 19-41 [facility] Blood monocytes/100 leukocyt esOrdered By: Sixto Braswell on 01-14-2023 Monocytes/100 WBC (Bld) 9.1 % 0-10 [facility] Blood platelet mean volumeOr dered By: Sixto Braswell on 01-14-2023 Platelet mean volume (Bld) [Entitic vol] 10.2 fL 6.2-12.0 [facility] Determination of erythrocyte mean corpuscular volume (MCV)Ordered By: Sixto Braswell on 01-14-2023 MCV (RBC) [Entitic vol] 93.1 fL 81-99 [facility] Hematocrit Auto (Bld) [Volum e fraction]Ordered By: Sixto Braswell on 01-14-2023 Hematocrit (Bld) [Volume fraction] 26.9 % 37-47 [facility] Laboratory - Chemistry and C hemistry - challengeOrdered By: Sixto Braswell on 01-14-2023 CO2 [Moles/Vol] 25.0 mmol/L 21.0-32.0 [facility] Urea nitrogen/Creatinine [Mass ratio] 18.1 mg/mg 10-20 [facility] Laboratory - Hematology and Cell countsOrdered By: Sixto Braswell on 01-14-2023 Erythrocyte distribution width (RBC) [Entitic vol] 44.9 fL 35.1-43.9 [facility] Erythrocyte distribution width (RBC) [Ratio] 13.2 % 11.6-14.6 [facility] Immature granulocytes/100 WBC (Bld) 0.400 % 0.0-0.9 [facility] Comment on above: IG% - Immature Granu locytes (promyelocytes, myelocytes and metamyelocytes) > 1% indicates that a LEFT SHIFT is Present. MCH (RBC) [Entitic mass] 31.1 pg 27.0-32.0 [facility] Nucleated RBC/100 WBC (Bld) [Ratio] 0 % 0-5 [facility] MCHC Auto (RBC) [Mass/Vol]Or dered By: Sixto Braswell on 01-14-2023 MCHC (RBC) [Mass/Vol] 33.5 g/dL 32-36 [facility] No Panel InformationOrdered By: Sixto Braswell on 01-14-2023 Estimated Creatinine Clearance Calc 49.62 ml/min [facility] Estimated GFR (MDRD) Amer 78 mL/min >60 [facility] Comment on above: GFR Calc Estimated GFR (MDRD) Non-Af Amer 64 mL/min >60 [facility] Comment on above: Non- GFR Calc Platelets bldOrdered By: Debbie Braswell on 01-14-2023 Platelets (Bld) [#/Vol] 197 10*3/uL 150-450 [facility] Serum or plasma calcium beck urement (mass/volume)Ordered By: Sixto Braswell on 01-14-2023 Calcium [Mass/Vol] 8.6 mg/dL 8.5-10.1 [facility] Serum or plasma creatinine m easurement (mass/volume)Ordered By: Sixto Braswell on 01-14-2023 Creatinine [Mass/Vol] 0.88 mg/dL 0.55-1.02 [facility] Comment on above: The validity of the calculated GFR & GFRAA in patients over 70 years has not been determined. Clinical correlation is essential. Serum or plasma urea nitroge n measurement (mass/volume)Ordered By: Sixto Braswell on 01-14-2023 Urea nitrogen [Mass/Vol] 16 mg/dL 7-18 [facility] Thin prep Papanicolaou smear with manual screeningOrdered By: Sixto Braswell on 01-14-2023 Thin prep Papanicolaou smear with manual screening 4 5-15 [facility] Clostridium difficile detect ion by polymerase chain reactionOrdered By: Isiah Winn on 01-13-2023 C. difficile DNA ANALISA+probe Ql (Unsp spec) [facility] Ova and parasitesOrdered By: Isiah Winn on 01-13-2023 Ova and parasites identified LM Nom (Unsp spec) [facility] Stool enteric pathogen panel by probe and target amplification methodOrdered By: Isiah Winn on 01-13-2023 Gastrointestinal pathogens panel ANALISA+probe (Stl) [facility] Stool lactoferrin detection by immunoassayOrdered By: Isiah Winn on 01-13-2023 Lactoferrin IA Ql (Stl) [facility] Basophil percentageOrdered B y: Isiah Winn on 01-12-2023 Basophil percentage 0-5 SEEN /hpf 0-[address] [facility] Bilirubin [Mass/Vol] 0.40 mg/dL 0.20-1.00 [facility] Comment on above: For patients on eltr ombopag therapy, use of Dimension [place] TBIL is not recommended. Protein [Mass/Vol] 5.9 g/dL 6.4-8.2 [facility] Bilirubin Test strip Ql (U)O rdered By: Isiah Winn on 01-12-2023 Bilirubin Ql (U) 1 mg/dL Negative [facility] Comment on above: COLOR OF URINE MAY A FFECT DIPSTICK RESULTS. INR in Blood by Coagulation assayOrdered By: Isiah Winn on 01-12-2023 INR Coag (Bld) [Relative time] 1.1 {INR} [facility] Ketones Test strip Ql (U)Ord ered By: Isiah Winn on 01-12-2023 Ketones Ql (U) Negative Negative [facility] Laboratory - Chemistry and C hemistry - challengeOrdered By: Isiah Winn on 01-12-2023 ALP [Catalytic activity/Vol] 94 U/L 45-117 [facility] ALT [Catalytic activity/Vol] 26 U/L 13-56 [facility] Globulin (S) [Mass/Vol] 3.2 g/dL 2.2-4.2 [facility] Laboratory - CoagulationOrde red By: Isiah Winn on 01-12-2023 aPTT Coag (Bld) [Time] 29.4 s 24.1-36.[address] [facility] PT Coag (PPP) [Time] 14.6 s 11.7-14.9 [facility] Mucus LM Ql (Urine sed)Order ed By: Isiah Winn on 01-12-2023 Mucus Ql (Urine sed) 0 SEEN /hpf [facility] Nitrite Test strip Ql (U)Ord ered By: Isiah Winn on 01-12-2023 Nitrite Ql (U) Negative Negative [facility] Protein Test strip Ql (U)Ord ered By: Isiah Winn on 01-12-2023 Protein Ql (U) Negative Negative [facility] Serum or plasma albumin beck urement (mass/volume)Ordered By: Isiah Winn on 01-12-2023 Albumin [Mass/Vol] 2.7 g/dL 3.2-5.0 [facility] Serum or plasma albumin/glob ulin mass ratioOrdered By: Isiah Winn on 01-12-2023 Albumin/Globulin [Mass ratio] 0.8 {ratio} 0.9-2.4 [facility] Squamous epithelial cells de tection in urine sediment by light microscopyOrdered By: Isiah Winn on 01-12-2023 Epithelial cells.squamous LM Ql (Urine sed) 0 SEEN /hpf 5-10 [facility] Thin prep Papanicolaou smear with manual screeningOrdered By: Isiah Winn on 01-12-2023 Thin prep Papanicolaou smear with manual screening 30 U/L 15-37 [facility] Urine blood detectionOrdered By: Isiah Winn on 01-12-2023 RBC Ql (U) Negative Negative [facility] RBC Ql (U) 0 SEEN /hpf 0-5 [facility] Urine clarityOrdered By: Cortez Winn on 01-12-2023 Clarity (U) Clear Clear [facility] Urine color determinationOrd ered By: Isiah Winn on 01-12-2023 Color (U) Yellow Yellow [facility] Urine glucose detectionOrder ed By: Isiah Winn on 01-12-2023 Glucose Ql (U) Normal mg/dl Normal [facility] Urine leukocyte esterase det ection by dipstickOrdered By: Isiah Winn on 01-12-2023 Leukocyte esterase Test strip Ql (U) 25 /ul Negative [facility] Urine pHOrdered By: Isiah Winn on 01-12-2023 pH (U) 5.0 [pH] 5.0 - 8.0 [facility] Urine sediment bacteria coun t by microscopy (number/high power field)Ordered By: Isiah Winn on 01-12-2023 Bacteria LM.HPF (Urine sed) [#/Area] 0 /[HPF] None Seen [facility] Urine specific gravity measu rementOrdered By: Isiah Winn on 01-12-2023 Specific gravity (U) [Rel density] 1.015 1.002-1.030 [facility] Urobilinogen Auto test strip Ql (U)Ordered By: Isiah Winn on 01-12-2023 Urobilinogen Ql (U) Normal mg/dl Normal [facility] Clostridium difficile detect ion by polymerase chain reactionOrdered By: Hung Adames on 10-24-2022 C. difficile DNA ANALISA+probe Ql (Unsp spec) [facility] Stool lactoferrin detection by immunoassayOrdered By: Hung Adames on 10-24-2022 Lactoferrin IA Ql (Stl) [facility] No Panel InformationOrdered By: Hung Adames on 10-23-2022 Miscellaneous Test See comment [facility] Comment on above: TEST RESULT LIMITSSt ool Culture Salmonella/Shigella Screen Result 1 No Salmonella or Shigella recovered. Campylobacter Culture Result 1 No Campylobacter species isolated. E coli Shiga Toxin EIA Negative Negative [facility]. ORIGINAL REPORT ON FILE IN LAB CONTAINS ADDITIONAL TEST SITE INFORMATION. Stool Pancreatic Elastase < 50 >200 [facility] Comment on above: Result Units: ug Jeny st./gResults verified by repeat testing Severe Pancreatic Insufficiency: <100 Moderate Pancreatic Insufficiency: 100 - 200 Normal: >200Performed at: [facility] [id number] Director: Hi Hackett MD, Phone: [phone] Giardia Antigen (JIMI) [facility] Stool Calprotectin <16 ug/g 0-120 [facility] Comment on above: Concentration Interp retation Follow-Up<16 - 50 ug/g Normal None>50 -120 ug/g Borderline Re-evaluate in 4-6 weeks >120 ug/g Abnormal Repeat as clinically indicatedPerformed at: [facility] [id number] Director: Hi Hackett MD, Phone: [phone] Miscellaneous Test See comment [facility] Comment on above: TEST RESULT LIMITSIB [...] developed and its performance characteristics determined by [facility]. It has not been cleared or approved by the Food and Drug Administration. The FDA has determined that such clearance or approval is not necessary.Atypical pANCA Negative Negative Comments Pattern is not suggestive of Inflammatory Bowel Disease TESTING PERFORMED AT [facility]. ORIGINAL REPORT ON FILE IN LAB CONTAINS ADDITIONAL TEST SITE INFORMATION. Ova and parasitesOrdered By: Hung Adames on 10-23-2022 Ova and parasites identified LM Nom (Unsp spec) [facility] Laboratory - Microbiology an d Antimicrobial susceptibilityOrdered By: Dr. Thomas on 10-21-2022 Bacteria identified Cx Nom (Bld) [facility] Laboratory - Microbiology an d Antimicrobial susceptibilityOrdered By: Dr. Thomas on 09-22-2022 Bacteria identified Cx Nom (Bld) No growth in 5 days. [facility] Absolute lymphocyte countOrd ered By: Dr. Verma on 09-20-2022 Lymphocytes Auto (Unsp spec) [#/Vol] 2.55 10*3/uL 0.83-4.51 [facility] Basophil percentageOrdered B y: Dr. Verma on 09-20-2022 Basophils/100 WBC (Bld) 0.7 % 0-1 [facility] Chloride [Moles/Vol] 102 mmol/L 98-107 [facility] Eosinophils/100 WBC (Bld) 1.5 % 0-5 [facility] Glucose [Mass/Vol] 253 mg/dL 74-106 [facility] Comment on above: Glucose result great er than or equal to 200 mg/dLsuggests DIABETES MELLITUS per A.D.A. criteria. Neutrophils (Bld) [#/Vol] 6.8 10*3/uL 2.0-7.7 [facility] Neutrophils/100 WBC (Bld) 63.8 % 47-70 [facility] Potassium [Moles/Vol] 3.6 mmol/L 3.5-5.1 [facility] Sodium [Moles/Vol] 135 mmol/L 136-145 [facility] WBC (Bld) [#/Vol] 10.7 10*3/uL 4.4-11.0 [facility] Blood erythrocytes count (nu mber/volume)Ordered By: Dr. Verma on 09-20-2022 RBC (Bld) [#/Vol] 3.79 10*6/uL 4.2-5.4 [facility] Blood hemoglobin measurement (mass/volume)Ordered By: Dr. Verma on 09-20-2022 Hemoglobin (Bld) [Mass/Vol] 11.3 g/dL 12.0-15. 0 [facility] Blood lymphocytes/100 leukoc ytesOrdered By: Dr. Verma on 09-20-2022 Lymphocytes/100 WBC (Bld) 23.9 % 19-41 [facility] Blood monocytes/100 leukocyt esOrdered By: Dr. Verma on 09-20-2022 Monocytes/100 WBC (Bld) 9.7 % 0-10 [facility] Blood platelet mean volumeOr dered By: Dr. Verma on 09-20-2022 Platelet mean volume (Bld) [Entitic vol] 10.3 fL 6.2-12.0 [facility] Determination of erythrocyte mean corpuscular volume (MCV)Ordered By: Dr. Verma on 09-20-2022 MCV (RBC) [Entitic vol] 90.8 fL 81-99 [facility] Glucose Glucometer (BldC) [M ass/Vol]Ordered By: Dr. Verma on 09-20-2022 Glucose [Mass/Vol] 240 mg/dL 74-106 [facility] Comment on above: MANAGEMENT OF PATIEN T CARE PER NURSING PROTOCOL Hematocrit Auto (Bld) [Volum e fraction]Ordered By: Dr. Verma on 09-20-2022 Hematocrit (Bld) [Volume fraction] 34.4 % 37-47 [facility] Laboratory - Chemistry and C hemistry - challengeOrdered By: Dr. Verma on 09-20-2022 CO2 [Moles/Vol] 25.0 mmol/L 21.0-32.0 [facility] Urea nitrogen/Creatinine [Mass ratio] 21.0 mg/mg 10-20 [facility] Laboratory - Hematology and Cell countsOrdered By: Dr. Verma on 09-20-2022 Erythrocyte distribution width (RBC) [Entitic vol] 42.7 fL 35.1-43.9 [facility] Erythrocyte distribution width (RBC) [Ratio] 12.8 % 11.6-14.6 [facility] Immature granulocytes/100 WBC (Bld) 0.400 % 0.0-0.9 [facility] Comment on above: IG% - Immature Granu locytes (promyelocytes, myelocytes and metamyelocytes) > 1% indicates that a LEFT SHIFT is Present. MCH (RBC) [Entitic mass] 29.8 pg 27.0-32.0 [facility] Nucleated RBC/100 WBC (Bld) [Ratio] 0 % 0-5 [facility] MCHC Auto (RBC) [Mass/Vol]Or dered By: Dr. Verma on 09-20-2022 MCHC (RBC) [Mass/Vol] 32.8 g/dL 32-36 [facility] No Panel InformationOrdered By: Dr. Verma on 09-20-2022 Estimated Creatinine Clearance Calc 35.22 ml/min [facility] Estimated GFR (MDRD) Amer 53 mL/min >60 [facility] Comment on above: GFR Calc Estimated GFR (MDRD) Non-Af Amer 44 mL/min >60 [facility] Comment on above: Non- GFR Calc Platelets bldOrdered By: Dr. Verma on 09-20-2022 Platelets (Bld) [#/Vol] 237 10*3/uL 150-450 [facility] Serum or plasma calcium beck urement (mass/volume)Ordered By: Dr. Verma on 09-20-2022 Calcium [Mass/Vol] 9.1 mg/dL 8.5-10.1 [facility] Serum or plasma creatinine m easurement (mass/volume)Ordered By: Dr. Verma on 09-20-2022 Creatinine [Mass/Vol] 1.24 mg/dL 0.55-1.02 [facility] Comment on above: The validity of the calculated GFR & GFRAA in patients over 70 years has not been determined. Clinical correlation is essential. Serum or plasma urea nitroge n measurement (mass/volume)Ordered By: Dr. Verma on 09-20-2022 Urea nitrogen [Mass/Vol] 26 mg/dL 7-18 [facility] Thin prep Papanicolaou smear with manual screeningOrdered By: Dr. Verma on 09-20-2022 Thin prep Papanicolaou smear with manual screening 8 5-15 [facility] Basophil percentageOrdered B y: Dr. Verma on 09-19-2022 Cholesterol [Mass/Vol] 114 mg/dL <[address] [facility] Comment on above: <200 mg/dL Desirable 200-240 mg/dL Borderline >240 mg/dL High Risk Triglyceride [Mass/Vol] 117 mg/dL <199 [facility] Comment on above: The drugs N-Acetylcy steine and Metamizole may falsely depress this assay.Serum Triglycerides Reference Interval Normal <150 mg/dL Borderline high 150 - 199 mg/dL High 200 - 499 mg/dL Very High > or = 500 mg/dL Serum or plasma cholesterol in HDL measurement (mass/volume)Ordered By: Dr. Verma on 09-19-2022 Cholesterol in HDL [Mass/Vol] 41 mg/dL >40 [facility] Comment on above: The drugs N-Acetylcy steine and Metamizole may falsely depress this assay. Reference Range HDL <40 mg/dL Low HDL Cholesterol HDL >or= 60 mg/dL High HDL Cholesterol Serum or plasma cholesterol in VLDL measurement (mass/volume)Ordered By: Dr. Verma on 09-19-2022 Cholesterol in VLDL [Mass/Vol] 23 mg/dL 5-40 [facility] Serum or plasma low density lipoprotein (LDL) cholesterol measurement (mass/volume)Ordered By: Dr. Verma on 09-19-2022 Cholesterol in LDL [Mass/Vol] 50 mg/dL 0-130 [facility] Basophil percentageOrdered B y: Dr. Chawla on 09-18-2022 Bilirubin [Mass/Vol] 0.50 mg/dL 0.20-1.00 [facility] Comment on above: For patients on eltr ombopag therapy, use of Dimension [place] TBIL is not recommended. Protein [Mass/Vol] 6.1 g/dL 6.4-8.2 [facility] Culture, urineOrdered By: Dr Edmond Thomas on 09-18-2022 Bacteria identified Cx Nom (U) Escherichia coli [facility] Laboratory - Chemistry and C hemistry - challengeOrdered By: Dr. Chawla on 09-18-2022 ALP [Catalytic activity/Vol] 104 U/L 45-117 [facility] ALT [Catalytic activity/Vol] 26 U/L 13-56 [facility] Globulin (S) [Mass/Vol] 3.4 g/dL 2.2-4.2 [facility] Serum or plasma albumin beck urement (mass/volume)Ordered By: Dr. Chawla on 09-18-2022 Albumin [Mass/Vol] 2.7 g/dL 3.2-5.0 [facility] Serum or plasma albumin/glob ulin mass ratioOrdered By: Dr. Chawla on 09-18-2022 Albumin/Globulin [Mass ratio] 0.8 {ratio} 0.9-2.4 [facility] Thin prep Papanicolaou smear with manual screeningOrdered By: Dr. Chawla on 09-18-2022 Thin prep Papanicolaou smear with manual screening 25 U/L 15-37 [facility] Basophil percentageOrdered B y: Dr. Buckner on 09-17-2022 Basophil percentage 3.5 mg/dL 2.5-4.9 [facility] Erythrocyte sedimentation ra teOrdered By: Dr. Chawla on 09-17-2022 ESR (Bld) [Velocity] 5 mm/h 0-30 [facility] Laboratory - Chemistry and C hemistry - challengeOrdered By: Dr. Buckner on 09-17-2022 Magnesium [Mass/Vol] 1.6 mg/dL 1.6-2.6 [facility] Serum or plasma C reactive p rotein measurement (mass/volume)Ordered By: Dr. Chawla on 09-17-2022 CRP [Mass/Vol] mg/L 0.0-3.0 [facility] Comment on above: C-Reactive Protein ( CRP) provides useful information for thediagnosis, therapy and monitoring of inflammatory processesand associated diseases. For the evaluation of Relative Riskfor Cardiovascular Disease, a High Sensitivity CRP (HSCRP)should be ordered. Serum procalcitonin measurem entOrdered By: Dr. Chawla on 09-17-2022 Procalcitonin [Mass/Vol] ng/mL 0.00-0.09 [facility] Comment on above: A procalcitonin (PCT ) [...] Auto (Unsp spec) [#/Vol] 2.26 10*3/uL 0.83-4.51 [facility] Basophil percentageOrdered B y: Dr. Thomas on 09-16-2022 Basophil percentage 0 SEEN /hpf 0-5 [facility] Basophils/100 WBC (Bld) 0.9 % 0-1 [facility] Bilirubin [Mass/Vol] 0.40 mg/dL 0.20-1.00 [facility] Comment on above: For patients on eltr ombopag therapy, use of Dimension [place] TBIL is not recommended. Chloride [Moles/Vol] 101 mmol/L 98-107 [facility] Eosinophils/100 WBC (Bld) 1.9 % 0-5 [facility] Glucose [Mass/Vol] 337 mg/dL 74-106 [facility] Comment on above: Glucose result great er than or equal to 200 mg/dLsuggests DIABETES MELLITUS per A.D.A. criteria. Lactate [Moles/Vol] 1.9 mmol/L 0.4-2.0 [facility] Neutrophils (Bld) [#/Vol] 4.3 10*3/uL 2.0-7.7 [facility] Neutrophils/100 WBC (Bld) 57.8 % 47-70 [facility] Potassium [Moles/Vol] 4.3 mmol/L 3.5-5.1 [facility] Protein [Mass/Vol] 6.3 g/dL 6.4-8.2 [facility] Sodium [Moles/Vol] 135 mmol/L 136-145 [facility] WBC (Bld) [#/Vol] 7.5 10*3/uL 4.4-11.0 [facility] Bilirubin Test strip Ql (U)O rdered By: Dr. Thomas on 09-16-2022 Bilirubin Ql (U) Negative Negative [facility] Blood erythrocytes count (nu mber/volume)Ordered By: Dr. Thomas on 09-16-2022 RBC (Bld) [#/Vol] 3.66 10*6/uL 4.2-5.4 [facility] Blood hemoglobin measurement (mass/volume)Ordered By: Dr. Thomas on 09-16-2022 Hemoglobin (Bld) [Mass/Vol] 11.0 g/dL 12.0-15. 0 [facility] Blood lymphocytes/100 leukoc ytesOrdered By: Dr. Thomas on 09-16-2022 Lymphocytes/100 WBC (Bld) 30.3 % 19-41 [facility] Blood monocytes/100 leukocyt esOrdered By: Dr. Thomas on 09-16-2022 Monocytes/100 WBC (Bld) 8.6 % 0-10 [facility] Blood platelet mean volumeOr dered By: Dr. Thomas on 09-16-2022 Platelet mean volume (Bld) [Entitic vol] 10.1 fL 6.2-12.0 [facility] Culture, urineOrdered By: Julian Thomas on 09-16-2022 Bacteria identified Cx Nom (U) Escherichia coli [facility] Determination of erythrocyte mean corpuscular volume (MCV)Ordered By: Dr. Thomas on 09-16-2022 MCV (RBC) [Entitic vol] 95.6 fL 81-99 [facility] Hematocrit Auto (Bld) [Volum e fraction]Ordered By: Dr. Thomas on 09-16-2022 Hematocrit (Bld) [Volume fraction] 35.0 % 37-47 [facility] INR in Blood by Coagulation assayOrdered By: Dr. Thomas on 09-16-2022 INR Coag (Bld) [Relative time] 1.1 {INR} [facility] Ketones Test strip Ql (U)Ord ered By: Dr. Thomas on 09-16-2022 Ketones Ql (U) Negative Negative [facility] Laboratory - Chemistry and C hemistry - challengeOrdered By: Dr. Buckner on 09-16-2022 Cobalamin (Vitamin B12) [Mass/Vol] 999 pg/mL 211-911 [facility] Laboratory - Chemistry and C hemistry - challengeOrdered By: Dr. Thomas on 09-16-2022 ALP [Catalytic activity/Vol] 100 U/L 45-117 [facility] ALT [Catalytic activity/Vol] 25 U/L 13-56 [facility] CO2 [Moles/Vol] 28.0 mmol/L 21.0-32.0 [facility] Globulin (S) [Mass/Vol] 3.3 g/dL 2.2-4.2 [facility] Urea nitrogen/Creatinine [Mass ratio] 15.3 mg/mg 10-20 [facility] Laboratory - CoagulationOrde red By: Dr. Thomas on 09-16-2022 PT Coag (PPP) [Time] 13.6 s 11.7-14.9 [facility] Laboratory - Hematology and Cell countsOrdered By: Dr. Thomas on 09-16-2022 Erythrocyte distribution width (RBC) [Entitic vol] 44.8 fL 35.1-43.9 [facility] Erythrocyte distribution width (RBC) [Ratio] 12.8 % 11.6-14.6 [facility] Immature granulocytes/100 WBC (Bld) 0.500 % 0.0-0.9 [facility] Comment on above: IG% - Immature Granu locytes (promyelocytes, myelocytes and metamyelocytes) > 1% indicates that a LEFT SHIFT is Present. MCH (RBC) [Entitic mass] 30.1 pg 27.0-32.0 [facility] Nucleated RBC/100 WBC (Bld) [Ratio] 0 % 0-5 [facility] Laboratory - Microbiology an d Antimicrobial susceptibilityOrdered By: Moncho Thomas on 09-16-2022 Bacteria identified Cx Nom (Bld) [facility] Bacteria identified Cx Nom (Bld) No growth in 5 days. [facility] MCHC Auto (RBC) [Mass/Vol]Or dered By: Dr. Thomas on 09-16-2022 MCHC (RBC) [Mass/Vol] 31.4 g/dL 32-36 [facility] Mucus LM Ql (Urine sed)Order ed By: Dr. Thomas on 09-16-2022 Mucus Ql (Urine sed) 0 SEEN /hpf [facility] Nitrite Test strip Ql (U)Ord ered By: Dr. Thomas on 09-16-2022 Nitrite Ql (U) Positive Negative [facility] No Panel InformationOrdered By: Dr. Thomas on 09-16-2022 Estimated Creatinine Clearance Calc 33.28 ml/min [facility] Estimated GFR (MDRD) Amer 56 mL/min >60 [facility] Comment on above: GFR Calc Estimated GFR (MDRD) Non-Af Amer 46 mL/min >60 [facility] Comment on above: Non- GFR Calc No Panel InformationOrdered By: Dr. Buckner on 09-16-2022 Thyroid Stimulating Hormone (TSH) 2.42 uIU/mL 0.358-3.74 [facility] Platelets bldOrdered By: Dr. Thomas on 09-16-2022 Platelets (Bld) [#/Vol] 248 10*3/uL 150-450 [facility] Protein Test strip Ql (U)Ord ered By: Dr. Thomas on 09-16-2022 Protein Ql (U) Negative Negative [facility] Serum or plasma acetone beck urement (mass/volume)Ordered By: Dr. Thomas on 09-16-2022 Acetone [Mass/Vol] Negative NEG [facility] Serum or plasma albumin beck urement (mass/volume)Ordered By: Dr. Thomas on 09-16-2022 Albumin [Mass/Vol] 3.0 g/dL 3.2-5.0 [facility] Serum or plasma albumin/glob ulin mass ratioOrdered By: Dr. Thomas on 09-16-2022 Albumin/Globulin [Mass ratio] 0.9 {ratio} 0.9-2.4 [facility] Serum or plasma calcium beck urement (mass/volume)Ordered By: Dr. Thomas on 09-16-2022 Calcium [Mass/Vol] 9.0 mg/dL 8.5-10.1 [facility] Serum or plasma creatinine m easurement (mass/volume)Ordered By: Dr. Thomas on 09-16-2022 Creatinine [Mass/Vol] 1.18 mg/dL 0.55-1.02 [facility] Comment on above: The validity of the calculated GFR & GFRAA in patients over 70 years has not been determined. Clinical correlation is essential. Serum or plasma folate measu rement (mass/volume)Ordered By: Dr. Buckner on 09-16-2022 Folate [Mass/Vol] 40.40 ng/mL 3.1-55.4 [facility] Serum or plasma urea nitroge n measurement (mass/volume)Ordered By: Dr. Thomas on 09-16-2022 Urea nitrogen [Mass/Vol] 18 mg/dL 7-18 [facility] Squamous epithelial cells de tection in urine sediment by light microscopyOrdered By: Dr. Thomas on 09-16-2022 Epithelial cells.squamous LM Ql (Urine sed) 0 SEEN /hpf 5-10 [facility] Thin prep Papanicolaou smear with manual screeningOrdered By: Dr. Thomas on 09-16-2022 Thin prep Papanicolaou smear with manual screening 24 U/L 15-37 [facility] Thin prep Papanicolaou smear with manual screening 6 5-15 [facility] Urine blood detectionOrdered By: Dr. Thomas on 09-16-2022 RBC Ql (U) Negative Negative [facility] RBC Ql (U) 0 SEEN /hpf 0-5 [facility] Urine clarityOrdered By: Dr. Thomas on 09-16-2022 Clarity (U) Clear Clear [facility] Urine color determinationOrd ered By: Dr. Thomas on 09-16-2022 Color (U) Yellow Yellow [facility] Urine glucose detectionOrder ed By: Dr. Thomas on 09-16-2022 Glucose Ql (U) 1000 mg/dl Normal [facility] Urine leukocyte esterase det ection by dipstickOrdered By: Dr. Thomas on 09-16-2022 Leukocyte esterase Test strip Ql (U) Negative Negative [facility] Urine pHOrdered By: Dr. Azeb marcos on 09-16-2022 pH (U) 5.0 [pH] 5.0 - 8.0 [facility] Urine sediment bacteria coun t by microscopy (number/high power field)Ordered By: Dr. Thomas on 09-16-2022 Bacteria LM.HPF (Urine sed) [#/Area] 1 /[HPF] None Seen [facility] Urine specific gravity measu rementOrdered By: Dr. Thomas on 09-16-2022 Specific gravity (U) [Rel density] 1.015 1.002-1.030 [facility] Urobilinogen Auto test strip Ql (U)Ordered By: Dr. Thomas on 09-16-2022 Urobilinogen Ql (U) Normal mg/dl Normal [facility] No Panel InformationOrdered By: Hung Adames on 08-19-2022 Giardia Antigen (JIMI) [facility] Ova and parasitesOrdered By: Hung Adames on 08-19-2022 Ova and parasites identified LM Nom (Unsp spec) [facility] No Panel InformationOrdered By: Hung Adames on 08-13-2022 Stool Pancreatic Elastase 75 >200 [facility] Comment on above: Result Units: ug Jeny st./gResults verified by repeat testing Severe Pancreatic Insufficiency: <100 Moderate Pancreatic Insufficiency: 100 - 200 Normal: >200Performed at: [facility] [id number] Director: Hi Hackett MD, Phone: [phone] Stool Calprotectin 423 ug/g 0-120 [facility] Comment on above: Concentration Interp retation Follow-Up<16 - 50 ug/g Normal None>50 -120 ug/g Borderline Re-evaluate in 4-6 weeks >120 ug/g Abnormal Repeat as clinically indicatedPerformed at: - [facility] [address] [id number] Director: Kishor Sears PhD, Phone: [phone] at: - [facility] [id number] Director: Hi Hackett MD, Phone: [phone] Stool Neutral Fats Normal . [facility] Comment on above: Normal (<60 Droplets /HPF) Qualitative fecal fat or lip idsOrdered By: Hung Adames on 08-13-2022 Fat Ql (Stl) Increased . [facility] Comment on above: Normal (<100 Droplet s/HPF) EP PanelOrdered By: Hung Adames on 08-11-2022 Gastrointestinal pathogens panel ANALISA+probe (Stl) [facility] Stool gastrointestinal hemog lobin detection by immunologic methodOrdered By: Hung Adames on 08-11-2022 Lower GI hemoglobin IA Ql (Stl) [facility] Stool lactoferrin detection by immunoassayOrdered By: Hung Adames on 08-11-2022 Lactoferrin IA Ql (Stl) [facility] Absolute lymphocyte countOrd ered By: Hung Adames on 08-10-2022 Lymphocytes Auto (Unsp spec) [#/Vol] 1.79 10*3/uL 0.83-4.51 [facility] Albumin Elph [Mass/Vol]Order ed By: Hung Adames on 08-10-2022 Albumin [Mass/Vol] 2.9 g/dL 2.9-4.4 [facility] Atypical perinuclear antineu trophil cytoplasmic antibodies measurementOrdered By: Hung Adames on 08-10-2022 Neutrophil cytoplasmic Ab.perinuclear.atypical IF (S) [Titer] <1:20 titer Neg:<1:20 [facility] Comment on above: The atypical pANCA p attern has been observed in asignificant percentage of patients with ulcerative colitis,primary sclerosing cholangitis and autoimmune hepatitis. Basophil percentageOrdered B y: Hung Adames on 08-10-2022 Basophil percentage 0.6 AI 0.0-0.9 [facility] Basophil percentage < 0.2 AI 0.0-0.9 [facility] Basophils/100 WBC (Bld) 0.6 % 0-1 [facility] Bilirubin [Mass/Vol] 0.40 mg/dL 0.20-1.00 [facility] Comment on above: For patients on eltr ombopag therapy, use of Dimension [place] TBIL is not recommended. Chloride [Moles/Vol] 105 mmol/L 98-107 [facility] Eosinophils/100 WBC (Bld) 2.7 % 0-5 [facility] Glucose [Mass/Vol] 306 mg/dL 74-106 [facility] Comment on above: Glucose result great er than or equal to 200 mg/dLsuggests DIABETES MELLITUS per A.D.A. criteria. LDH [Catalytic activity/Vol] 205 U/L 84-246 [facility] Neutrophils (Bld) [#/Vol] 4.5 10*3/uL 2.0-7.7 [facility] Neutrophils/100 WBC (Bld) 62.6 % 47-70 [facility] Potassium [Moles/Vol] 4.1 mmol/L 3.5-5.1 [facility] Protein [Mass/Vol] 5.8 g/dL 6.4-8.2 [facility] Sodium [Moles/Vol] 140 mmol/L 136-145 [facility] WBC (Bld) [#/Vol] 7.1 10*3/uL 4.4-11.0 [facility] Blood erythrocytes count (nu mber/volume)Ordered By: Hung Adames on 08-10-2022 RBC (Bld) [#/Vol] 3.40 10*6/uL 4.2-5.4 [facility] Blood hemoglobin measurement (mass/volume)Ordered By: Hung Adames on 08-10-2022 Hemoglobin (Bld) [Mass/Vol] 10.1 g/dL 12.0-15. 0 [facility] Blood lymphocytes/100 leukoc ytesOrdered By: Hung Adames on 08-10-2022 Lymphocytes/100 WBC (Bld) 25.1 % 19-41 [facility] Blood monocytes/100 leukocyt esOrdered By: Hung Adames on 08-10-2022 Monocytes/100 WBC (Bld) 8.6 % 0-10 [facility] Blood platelet mean volumeOr dered By: Hung Adames on 08-10-2022 Platelet mean volume (Bld) [Entitic vol] 9.8 fL 6.2-12.0 [facility] Determination of erythrocyte mean corpuscular volume (MCV)Ordered By: Hung Adames on 08-10-2022 MCV (RBC) [Entitic vol] 94.1 fL 81-99 [facility] Erythrocyte sedimentation ra teOrdered By: Hung Adames on 08-10-2022 ESR (Bld) [Velocity] 2 mm/h 0-30 [facility] Hematocrit Auto (Bld) [Volum e fraction]Ordered By: Hung Adames on 08-10-2022 Hematocrit (Bld) [Volume fraction] 32.0 % 37-47 [facility] INR in Blood by Coagulation assayOrdered By: Hung Adames on 08-10-2022 INR Coag (Bld) [Relative time] 1.1 {INR} [facility] Interpretation of serum or p lasma protein pattern by immunofixation (narrative resultOrdered By: Hung Adames on 08-10-2022 Protein Fractions Immunofixation [place] [Interp] See comment [facility] Comment on above: Result: Not Observed Laboratory - Chemistry and C hemistry - challengeOrdered By: Hung Adames on 08-10-2022 ALP [Catalytic activity/Vol] 96 U/L 45-117 [facility] ALT [Catalytic activity/Vol] 27 U/L 13-56 [facility] CO2 [Moles/Vol] 26.0 mmol/L 21.0-32.0 [facility] Free T4 [Mass/Vol] 0.97 ng/dL 0.76-1.46 [facility] Urea nitrogen/Creatinine [Mass ratio] 13.9 mg/mg 10-20 [facility] Laboratory - CoagulationOrde red By: Hung Adames on 08-10-2022 PT Coag (PPP) [Time] 14.0 s 11.7-14.9 [facility] Laboratory - Hematology and Cell countsOrdered By: Hung Adames on 08-10-2022 Erythrocyte distribution width (RBC) [Entitic vol] 46.5 fL 35.1-43.9 [facility] Erythrocyte distribution width (RBC) [Ratio] 13.6 % 11.6-14.6 [facility] Immature granulocytes/100 WBC (Bld) 0.400 % 0.0-0.9 [facility] Comment on above: IG% - Immature Granu locytes (promyelocytes, myelocytes and metamyelocytes) > 1% indicates that a LEFT SHIFT is Present. MCH (RBC) [Entitic mass] 29.7 pg 27.0-32.0 [facility] Nucleated RBC/100 WBC (Bld) [Ratio] 0 % 0-5 [facility] MCHC Auto (RBC) [Mass/Vol]Or dered By: Hung Adames on 08-10-2022 MCHC (RBC) [Mass/Vol] 31.6 g/dL 32-36 [facility] No Panel InformationOrdered By: Hung Adames on 08-10-2022 Addendum Document Comment . [facility] Comment on above: Protein electrophore sis scan will follow via computer,mail, or script reader delivery. Centromere B Antibody <0.2 AI 0.0-0.9 [facility] Endomysial IgA Antibody Negative Negative [facility] Estimated GFR (MDRD) Amer 54 mL/min >60 [facility] Comment on above: GFR Calc Estimated GFR (MDRD) Non-Af Amer 44 mL/min >60 [facility] Comment on above: Non- GFR Calc Free Triiodothyronine (T3) pg/dL 1.6 pg/mL 2.18-3.98 [facility] Immunoglobulin E 20 IU/mL 6-495 [facility] Comment on above: Performed at: [place] [facility] [address] [id number] Director: Kishor Sears PhD, Phone: [phone] at: - [facility] [id number] Director: Hi Hackett MD, Phone: [phone] [employer] Antibody <0.2 AI 0.0-0.9 [facility] Thyroid Stimulating Hormone (TSH) 2.56 uIU/mL 0.358-3.74 [facility] Platelets bldOrdered By: Rupert Adames on 08-10-2022 Platelets (Bld) [#/Vol] 211 10*3/uL 150-450 [facility] Serum DNA double strand anti body assay (units/volume)Ordered By: Hung Adames on 08-10-2022 DNA double strand Ab Qn (S) 18 [IU]/mL 0-9 [facility] Comment on above: Negative <5 Equivoca l 5 - 9 Positive >9 Serum Lolly-1 antibody assay (u nits/volume)Ordered By: Hung Adames on 08-10-2022 Lolly-1 extractable nuclear Ab Qn (S) <0.2 AI 0.0-0.9 [facility] Serum Scl-70 extractable nuc lear antibody assay (units/volume)Ordered By: Hung Adames on 08-10-2022 SCL-70 extractable nuclear Ab Qn (S) <0.2 AI 0.0-0.9 [facility] Serum [place] extractable nucl ear antibody detectionOrdered By: Hung Adames on 08-10-2022 [place] extractable nuclear Ab Ql (S) <0.2 AI 0.0-0.9 [facility] Serum [id number] measu rement by electrophoresisOrdered By: Hung Adames on 08-10-2022 Alpha 1 globulin Elph [Mass/Vol] 0.2 g/dL 0.0-0.4 [facility] Alpha 1 globulin Elph [Mass/Vol] 0.7 g/dL 0.4-1.0 [facility] Serum classic neutrophil cyt oplasmic antibody assay (units/volume)Ordered By: Hung Adames on 08-10-2022 Neutrophil cytoplasmic Ab.classic Qn (S) <1:20 titer Neg:<1:20 [facility] Serum globulin measurement ( mass/volume)Ordered By: Hung Adames on 08-10-2022 Globulin (S) [Mass/Vol] 2.7 g/dL 2.2-3.9 [facility] Serum or plasma C reactive p rotein measurement (mass/volume)Ordered By: Hung Adames on 08-10-2022 CRP [Mass/Vol] mg/L 0.0-3.0 [facility] Comment on above: C-Reactive Protein ( CRP) provides useful information for thediagnosis, therapy and monitoring of inflammatory processesand associated diseases. For the evaluation of Relative Riskfor Cardiovascular Disease, a High Sensitivity CRP (HSCRP)should be ordered. Serum or plasma IgA measurem ent (mass/volume)Ordered By: Hung Adames on 08-10-2022 IgA [Mass/Vol] 294 mg/dL 64-422 [facility] Serum or plasma IgG measurem ent (mass/volume)Ordered By: Hung Adames on 08-10-2022 IgG [Mass/Vol] 991 mg/dL 586-1602 [facility] Serum or plasma IgM measurem ent (mass/volume)Ordered By: Hung Adames on 08-10-2022 IgM [Mass/Vol] 64 mg/dL 26-217 [facility] Serum or plasma albumin beck urement (mass/volume)Ordered By: Hung Adames on 08-10-2022 Albumin [Mass/Vol] 2.6 g/dL 3.2-5.0 [facility] Serum or plasma albumin/glob ulin mass ratioOrdered By: Hung Adames on 08-10-2022 Albumin/Globulin [Mass ratio] 0.8 {ratio} 0.9-2.4 [facility] Serum or plasma beta globuli n measurement by electrophoresis (mass/volume)Ordered By: Hung Adames on 08-10-2022 Beta globulin Elph [Mass/Vol] 0.8 g/dL 0.7-1.3 [facility] Serum or plasma calcium beck urement (mass/volume)Ordered By: Hung Adames on 08-10-2022 Calcium [Mass/Vol] 8.4 mg/dL 8.5-10.1 [facility] Serum or plasma creatinine m easurement (mass/volume)Ordered By: Hung Adames on 08-10-2022 Creatinine [Mass/Vol] 1.22 mg/dL 0.55-1.02 [facility] Comment on above: The validity of the calculated GFR & GFRAA in patients over 70 years has not been determined. Clinical correlation is essential. Serum or plasma ferritin jose carlos surement (mass/volume)Ordered By: Hung Adames on 08-10-2022 Ferritin [Mass/Vol] 57 ng/mL 8252 [facility] Serum or plasma gamma globul in measurement by electrophoresis (mass/volume)Ordered By: Hung Adames on 08-10-2022 Gamma globulin Elph [Mass/Vol] 1.0 g/dL 0.4-1.8 [facility] Serum or plasma immunoelectr ophoresis interpretation (nominal result)Ordered By: Hung Adames on 08-10-2022 Interpretation IEP [Interp] Comment . [facility] Comment on above: No monoclonality det ected. Serum or plasma urea nitroge n measurement (mass/volume)Ordered By: Hung Adames on 08-10-2022 Urea nitrogen [Mass/Vol] 17 mg/dL 7-18 [facility] Serum perinuclear neutrophil cytoplasmic antibody titer by immunofluorescenceOrdered By: Hung Adames on 08-10-2022 Neutrophil cytoplasmic Ab.perinuclear IF (S) [Titer] <1:20 titer Neg:<1:20 [facility] Comment on above: The presence of posi tive fluorescence exhibiting P-ANCA orC-ANCA patterns alone is not specific for the diagnosis ofWegener's Granulomatosis (WG) or microscopic polyangiitis.Decisions about treatment should not be based solely onANCA IFA results. The [employer] ANCA Group Consensusrecommends follow up testing of positive sera with both IL-3 and MPO-ANCA enzyme immunoassays. As many as 5% serumsamples are positive only by EIA. Ref. AM J Clin Dimubx0671;111:507-513. Serum tissue transglutaminas e IgA antibody assay (units/volume)Ordered By: Hung Adames on 08-10-2022 tTG IgA Qn (S) <2 U/mL 0-3 [facility] Comment on above: Negative 0 - 3 Weak Positive 4 - 10 Positive >10 Tissue Transglutaminase (tTG) has been identified as the endomysial antigen. Studies have demonstr- ated that endomysial IgA antibodies have over 99% specificity for gluten sensitive enteropathy. Thin prep Papanicolaou smear with manual screeningOrdered By: Hung Friend on 08-10-2022 Thin prep Papanicolaou smear with manual screening 26 U/L 15-37 [facility] Thin prep Papanicolaou smear with manual screening 9 5-15 [facility] Thin prep Papanicolaou smear with manual screening 1.1 0.7-1.7 [facility] Total protein bloodOrdered B y: Hung Friend on 08-10-2022 Protein [Mass/Vol] 5.6 g/dL 6.0-8.5 [facility] Culture, urineOrdered By: Dr Edmond Lauren on 06-17-2022 Bacteria identified Cx Nom (U) Klebsiella aerogenes [facility] Absolute lymphocyte countOrd ered By: Dr. Verma on 06-16-2022 Lymphocytes Auto (Unsp spec) [#/Vol] 1.80 10*3/uL 0.83-4.51 [facility] Basophil percentageOrdered B y: Dr. Verma on 06-16-2022 Basophils/100 WBC (Bld) 0.7 % 0-1 [facility] Chloride [Moles/Vol] 103 mmol/L 98-107 [facility] Eosinophils/100 WBC (Bld) 5.6 % 0-5 [facility] Glucose [Mass/Vol] 84 mg/dL 74-106 [facility] Neutrophils (Bld) [#/Vol] 5.2 10*3/uL 2.0-7.7 [facility] Neutrophils/100 WBC (Bld) 61.5 % 47-70 [facility] Potassium [Moles/Vol] 4.3 mmol/L 3.5-5.1 [facility] Sodium [Moles/Vol] 135 mmol/L 136-145 [facility] WBC (Bld) [#/Vol] 8.4 10*3/uL 4.4-11.0 [facility] Blood erythrocytes count (nu mber/volume)Ordered By: Dr. Verma on 06-16-2022 RBC (Bld) [#/Vol] 3.07 10*6/uL 4.2-5.4 [facility] Blood hemoglobin measurement (mass/volume)Ordered By: Dr. Verma on 06-16-2022 Hemoglobin (Bld) [Mass/Vol] 9.1 g/dL 12.0-15. 0 [facility] Blood lymphocytes/100 leukoc ytesOrdered By: Dr. Verma on 06-16-2022 Lymphocytes/100 WBC (Bld) 21.4 % 19-41 [facility] Blood monocytes/100 leukocyt esOrdered By: Dr. Verma on 06-16-2022 Monocytes/100 WBC (Bld) 10.2 % 0-10 [facility] Blood platelet mean volumeOr dered By: Dr. Verma on 06-16-2022 Platelet mean volume (Bld) [Entitic vol] 9.9 fL 6.2-12.0 [facility] Determination of erythrocyte mean corpuscular volume (MCV)Ordered By: Dr. Verma on 06-16-2022 MCV (RBC) [Entitic vol] 92.2 fL 81-99 [facility] Glucose Glucometer (BldC) [M ass/Vol]Ordered By: Dr. Verma on 06-16-2022 Glucose [Mass/Vol] 185 mg/dL 74-106 [facility] Comment on above: MANAGEMENT OF PATIEN T CARE PER NURSING PROTOCOL Hematocrit Auto (Bld) [Volum e fraction]Ordered By: Dr. Verma on 06-16-2022 Hematocrit (Bld) [Volume fraction] 28.3 % 37-47 [facility] Laboratory - Chemistry and C hemistry - challengeOrdered By: Dr. Verma on 06-16-2022 CO2 [Moles/Vol] 27.0 mmol/L 21.0-32.0 [facility] Urea nitrogen/Creatinine [Mass ratio] 14.5 mg/mg 10-20 [facility] Laboratory - Hematology and Cell countsOrdered By: Dr. Verma on 06-16-2022 Erythrocyte distribution width (RBC) [Entitic vol] 46.6 fL 35.1-43.9 [facility] Erythrocyte distribution width (RBC) [Ratio] 13.8 % 11.6-14.6 [facility] Immature granulocytes/100 WBC (Bld) 0.600 % 0.0-0.9 [facility] Comment on above: IG% - Immature Granu locytes (promyelocytes, myelocytes and metamyelocytes) > 1% indicates that a LEFT SHIFT is Present. MCH (RBC) [Entitic mass] 29.6 pg 27.0-32.0 [facility] Nucleated RBC/100 WBC (Bld) [Ratio] 0 % 0-5 [facility] MCHC Auto (RBC) [Mass/Vol]Or dered By: Dr. Verma on 06-16-2022 MCHC (RBC) [Mass/Vol] 32.2 g/dL 32-36 [facility] No Panel InformationOrdered By: Dr. Verma on 06-16-2022 Estimated Creatinine Clearance Calc 40.91 ml/min [facility] Estimated GFR (MDRD) Amer 71 mL/min >60 [facility] Comment on above: GFR Calc Estimated GFR (MDRD) Non-Af Amer 58 mL/min >60 [facility] Comment on above: Non- GFR Calc Platelets bldOrdered By: Dr. Verma on 06-16-2022 Platelets (Bld) [#/Vol] 203 10*3/uL 150-450 [facility] Serum or plasma calcium beck urement (mass/volume)Ordered By: Dr. Verma on 06-16-2022 Calcium [Mass/Vol] 8.3 mg/dL 8.5-10.1 [facility] Serum or plasma creatinine m easurement (mass/volume)Ordered By: Dr. Verma on 06-16-2022 Creatinine [Mass/Vol] 0.96 mg/dL 0.55-1.02 [facility] Comment on above: The validity of the calculated GFR & GFRAA in patients over 70 years has not been determined. Clinical correlation is essential. Serum or plasma urea nitroge n measurement (mass/volume)Ordered By: Dr. Verma on 06-16-2022 Urea nitrogen [Mass/Vol] 14 mg/dL 7-18 [facility] Thin prep Papanicolaou smear with manual screeningOrdered By: Dr. Verma on 06-16-2022 Thin prep Papanicolaou smear with manual screening 5 5-15 [facility] Basophil percentageOrdered B y: Dr. Paredes on 06-15-2022 Cholesterol [Mass/Vol] 91 mg/dL <[address] [facility] Comment on above: <200 mg/dL Desirable 200-240 mg/dL Borderline >240 mg/dL High Risk Triglyceride [Mass/Vol] 51 mg/dL <199 [facility] Comment on above: The drugs N-Acetylcy steine and Metamizole may falsely depress this assay.Serum Triglycerides Reference Interval Normal <150 mg/dL Borderline high 150 - 199 mg/dL High 200 - 499 mg/dL Very High > or = 500 mg/dL Serum or plasma cholesterol in HDL measurement (mass/volume)Ordered By: Dr. Paredes on 06-15-2022 Cholesterol in HDL [Mass/Vol] 45 mg/dL >40 [facility] Comment on above: The drugs N-Acetylcy steine and Metamizole may falsely depress this assay. Reference Range HDL <40 mg/dL Low HDL Cholesterol HDL >or= 60 mg/dL High HDL Cholesterol Serum or plasma cholesterol in VLDL measurement (mass/volume)Ordered By: Dr. Paredes on 06-15-2022 Cholesterol in VLDL [Mass/Vol] 10 mg/dL 5-40 [facility] Serum or plasma low density lipoprotein (LDL) cholesterol measurement (mass/volume)Ordered By: Dr. Paredes on 06-15-2022 Cholesterol in LDL [Mass/Vol] 36 mg/dL 0-130 [facility] Whole blood hemoglobin A1c/t otal hemoglobin ratio (mass fraction)Ordered By: Dr. Paredes on 06-15-2022 HbA1c (Bld) [Mass fraction] 6.1 % 3.8-5.6 [facility] Comment on above: Normal < 5.7 % Predi abetic 5.7 - 6.4 % Diabetic >or= 6.5 % Please note range changes. Basophil percentageOrdered B y: Dr. Lauren on 06-14-2022 Basophil percentage 0-5 SEEN /hpf 0-[address] [facility] Bilirubin Test strip Ql (U)O rdered By: Dr. Lauren on 06-14-2022 Bilirubin Ql (U) Negative Negative [facility] INR in Blood by Coagulation assayOrdered By: Dr. Lauren on 06-14-2022 INR Coag (Bld) [Relative time] 1.0 {INR} [facility] Ketones Test strip Ql (U)Ord ered By: Dr. Lauren on 06-14-2022 Ketones Ql (U) Negative Negative [facility] Laboratory - CoagulationOrde red By: Dr. Lauren on 06-14-2022 aPTT Coag (Bld) [Time] 23.5 s 24.1-36.[address] [facility] PT Coag (PPP) [Time] 13.3 s 11.7-14.9 [facility] Mucus LM Ql (Urine sed)Order ed By: Dr. Lauren on 06-14-2022 Mucus Ql (Urine sed) 0 SEEN /hpf [facility] Nitrite Test strip Ql (U)Ord ered By: Dr. Lauren on 06-14-2022 Nitrite Ql (U) Negative Negative [facility] No Panel InformationOrdered By: Dr. Lauren on 06-14-2022 Troponin I High Sensitivity 25 pg/mL 3.0-54.0 [facility] Comment on above: Please Note: New Mesha t Units and Gender Specific Reference Ranges. For more information see Policy Stat Procedure [place] High Sensitivity Troponin (TNIH) and attachments. Protein Test strip Ql (U)Ord ered By: Dr. Lauren on 06-14-2022 Protein Ql (U) Negative Negative [facility] Squamous epithelial cells de tection in urine sediment by light microscopyOrdered By: Dr. Lauren on 06-14-2022 Epithelial cells.squamous LM Ql (Urine sed) 0 SEEN /hpf 5-10 [facility] Urine blood detectionOrdered By: Dr. Lauren on 06-14-2022 RBC Ql (U) Negative Negative [facility] RBC Ql (U) 0 SEEN /hpf 0-5 [facility] Urine clarityOrdered By: Dr. Lauren on 06-14-2022 Clarity (U) Sl. Cloudy Clear [facility] Urine color determinationOrd ered By: Dr. Lauren on 06-14-2022 Color (U) Yellow Yellow [facility] Urine glucose detectionOrder ed By: Dr. Lauren on 06-14-2022 Glucose Ql (U) Normal mg/dl Normal [facility] Urine leukocyte esterase det ection by dipstickOrdered By: Dr. Lauren on 06-14-2022 Leukocyte esterase Test strip Ql (U) 25 /ul Negative [facility] Urine pHOrdered By: Dr. Kieran fuchs on 06-14-2022 pH (U) 8.0 [pH] 5.0 - 8.0 [facility] Urine sediment bacteria coun t by microscopy (number/high power field)Ordered By: Dr. Lauren on 06-14-2022 Bacteria LM.HPF (Urine sed) [#/Area] 3 /[HPF] None Seen [facility] Urine specific gravity measu rementOrdered By: Dr. Lauren on 06-14-2022 Specific gravity (U) [Rel density] 1.015 1.002-1.030 [facility] Urobilinogen Auto test strip Ql (U)Ordered By: Dr. Lauren on 06-14-2022 Urobilinogen Ql (U) Normal mg/dl Normal [facility] Vital Signs Date Time Vital Sign Value Performing Clinician Facility 03-30-2025 03:44-0400 Body temperature 98.1 [degF] Dr. Clinton Fowler DO Work Phone: [facility] 03-30-2025 03:44-0400 Diastolic blood pressure 79 mm[Hg] Dr. Clinton Fowler DO Work Phone: [facility] 03-30-2025 03:44-0400 Heart rate 77 /min Dr. Clinton Fowler DO Work Phone: [facility] 03-30-2025 03:44-0400 Respiratory rate 16 /min Dr. Clinton Fowler DO Work Phone: [facility] 03-30-2025 03:44-0400 SaO2% (BldA) [Mass fraction] 98 % Dr. Clinton Fowler DO Work Phone: [facility] 03-30-2025 03:44-0400 Systolic blood pressure 169 mm[Hg] Dr. Clinton Fowler DO Work Phone: [facility] 03-30-2025 01:42-0400 Body height 160.[address] Clinton Fowler DO Work Phone: [facility] 03-30-2025 01:42-0400 Body mass index (BMI) [Ratio] 29.2 kg/m2 Dr. Clinton Fowler DO Work Phone: [facility] 03-30-2025 01:42-0400 Body weight 74.[address] Clinton Fowler DO Work Phone: [facility] 02-22-2025 18:09-0400 Body temperature 97.4 [degF] Dr. Clinton Fowler DO Work Phone: [facility] 02-22-2025 18:09-0400 Diastolic blood pressure 74 mm[Hg] Dr. Clinton Fowler DO Work Phone: [facility] 02-22-2025 18:09-0400 Heart rate 61 /min Dr. Clinton Fowler DO Work Phone: [facility] 02-22-2025 18:09-0400 Respiratory rate 16 /min Dr. Clinton Fowler DO Work Phone: [facility] 02-22-2025 18:09-0400 SaO2% (BldA) [Mass fraction] 97 % Dr. Clinton Fowler DO Work Phone: [facility] 02-22-2025 18:09-0400 Systolic blood pressure 170 mm[Hg] Dr. Clinton Fowler DO Work Phone: [facility] 02-22-2025 14:41-0400 Body height 160.[address] Clinton Fowler DO Work Phone: [facility] 02-22-2025 14:41-0400 Body mass index (BMI) [Ratio] 30.3 kg/m2 Dr. Clinton Fowler DO Work Phone: [facility] 02-22-2025 14:41-0400 Body weight 77.[address] Clinton Fowler DO Work Phone: [facility] 11-25-2024 13:12-0400 Body height 160 cm Libertad Whittaker APRN-CAUSTIC STRENGTH INSPECTOR Work Phone: [facility] 11-25-2024 13:12-0400 Body mass index (BMI) [Ratio] 29.58 kg/m2 Libertad Whittaker DISTILLERY SUPERVISOR-CAUSTIC STRENGTH INSPECTOR Work Phone: [facility] 11-25-2024 13:12-0400 Body weight 75.75 kg Libertad Whittaker DISTILLERY SUPERVISOR-[employer]IC STRENGTH INSPECTOR Work Phone: [facility] 11-25-2024 13:12-0400 Diastolic blood pressure 84 mm[Hg] Libertad Whittaker DISTILLERY SUPERVISOR-[employer]USTIC STRENGTH INSPECTOR Work Phone: [facility] 11-25-2024 13:12-0400 Heart rate 60 /min Libertad Whittaker DISTILLERY SUPERVISOR-[employer]IC STRENGTH INSPECTOR Work Phone: [facility] 11-25-2024 13:12-0400 Systolic blood pressure 149 mm[Hg] Libertad Whittaker DISTILLERY SUPERVISOR-CAUSTIC STRENGTH INSPECTOR Work Phone: [facility] 06-08-2023 00:26-0500 Diastolic blood pressure 87 mm[Hg] Dr. Clinton Fowler Work Phone: [facility] 06-08-2023 00:26-0500 Heart rate 72 /min Dr. Clinton Fowler Work Phone: [facility] 06-08-2023 00:26-0500 Respiratory rate 16 /min Dr. Clinton Fowler Work Phone: [facility] 06-08-2023 00:26-0500 SaO2% (BldA) [Mass fraction] 97 % Dr. Clinton Fowler Work Phone: [facility] 06-08-2023 00:26-0500 Systolic blood pressure 161 mm[Hg] Dr. Clinton Fowler Work Phone: [facility] 06-07-2023 22:34-0500 Body height 160.[address] Clinton Fowler Work Phone: [facility] 06-07-2023 22:34-0500 Body mass index (BMI) [Ratio] 31 kg/m2 Dr. Clinton Fowler Work Phone: [facility] 06-07-2023 22:34-0500 Body temperature 97.6 [degF] Dr. Clinton Fowler Work Phone: [facility] 06-07-2023 22:34-0500 Body weight 79.[address] Clinton Fowler Work Phone: [facility] 06-03-2023 12:27-0500 Body mass index (BMI) [Ratio] 29 kg/m2 Dr. Clinton Fowler Work Phone: [facility] 06-03-2023 12:27-0500 Body weight 74.[address] Clinton Fowler Work Phone: [facility] 06-03-2023 12:27-0500 Diastolic blood pressure 90 mm[Hg] Dr. Clinton Fowler Work Phone: [facility] 06-03-2023 12:27-0500 Heart rate 77 /min Dr. Clinton Fowler Work Phone: [facility] 06-03-2023 12:27-0500 Respiratory rate 18 /min Dr. Clinton Fowler Work Phone: [facility] 06-03-2023 12:27-0500 SaO2% (BldA) [Mass fraction] 93 % Dr. Clinton Fowler Work Phone: [facility] 06-03-2023 12:27-0500 Systolic blood pressure 167 mm[Hg] Dr. Clinton Fowler Work Phone: [facility] 01-14-2023 13:40-0400 Body temperature 97.9 [degF] Dr. Clinton Fowler Work Phone: [facility] 01-14-2023 13:40-0400 Diastolic blood pressure 55 mm[Hg] Dr. Clinton Fowler Work Phone: [facility] 01-14-2023 13:40-0400 Heart rate 99 /min Dr. Clinton Fowler Work Phone: [facility] 01-14-2023 13:40-0400 Respiratory rate 15 /min Dr. Clinton Fowler Work Phone: [facility] 01-14-2023 13:40-0400 SaO2% (BldA) [Mass fraction] 97 % Dr. Clinton Fowler Work Phone: [facility] 01-14-2023 13:40-0400 Systolic blood pressure 130 mm[Hg] Dr. Clinton Fowler Work Phone: [facility] 01-13-2023 14:42-0400 Body height 177.[address] Clinton Fowler Work Phone: [facility] 01-13-2023 14:42-0400 Body weight 73.[address] Clinton Fowler Work Phone: [facility] 01-12-2023 16:07-0400 Body mass index (BMI) [Ratio] 23.2 kg/m2 Dr. Clinton Fowler Work Phone: [facility] 09-20-2022 15:19-0500 Body height 177.[address] Clinton Fowler Work Phone: [facility] 09-20-2022 15:19-0500 Body weight 84.[address] Clinton Fowler Work Phone: [facility] 09-20-2022 15:16-0500 Body temperature 97.6 [degF] Dr. Clinton Fowler Work Phone: [facility] 09-20-2022 15:16-0500 Diastolic blood pressure 64 mm[Hg] Dr. Clinton Fowler Work Phone: [facility] 09-20-2022 15:16-0500 Heart rate 63 /min Dr. Clinton Fowler Work Phone: [facility] 09-20-2022 15:16-0500 Respiratory rate 14 /min Dr. Clinton Fowler Work Phone: [facility] 09-20-2022 15:16-0500 SaO2% (BldA) [Mass fraction] 97 % Dr. Clinton Fowler Work Phone: [facility] 09-20-2022 15:16-0500 Systolic blood pressure 112 mm[Hg] Dr. Clinton Fowler Work Phone: [facility] 09-20-2022 14:13-0500 Body mass index (BMI) [Ratio] 26.6 kg/m2 Dr. Clinton Fowler Work Phone: [facility] 09-18-2022 14:55-0500 Inhaled oxygen flow rate 2 L/min Dr. Clinton Fowler Work Phone: [facility] 09-16-2022 20:15-0500 Body height 177.[address] Clinton Fowler Work Phone: [facility] 09-16-2022 20:15-0500 Body mass index (BMI) [Ratio] 26.6 kg/m2 Dr. Clinton Fowler Work Phone: [facility] 09-16-2022 20:15-0500 Body weight 84.[address] Clinton Fowler Work Phone: [facility] 09-16-2022 19:54-0500 Body temperature 97.9 [degF] Dr. Clinton Fowler Work Phone: [facility] 09-16-2022 19:54-0500 Diastolic blood pressure 77 mm[Hg] Dr. Clinton Fowler Work Phone: [facility] 09-16-2022 19:54-0500 Heart rate 72 /min Dr. Clinton Fowler Work Phone: [facility] 09-16-2022 19:54-0500 Respiratory rate 18 /min Dr. Clinton Fowler Work Phone: [facility] 09-16-2022 19:54-0500 SaO2% (BldA) [Mass fraction] 95 % Dr. Clinton Fowler Work Phone: [facility] 09-16-2022 19:54-0500 Systolic blood pressure 136 mm[Hg] Dr. Clinton Fowler Work Phone: [facility] 06-16-2022 16:00-0500 Body temperature 97.9 [degF] Dr. Clinton Fowler Work Phone: [facility] 06-16-2022 16:00-0500 Diastolic blood pressure 102 mm[Hg] Dr. Clinton Fowler Work Phone: [facility] 06-16-2022 16:00-0500 Heart rate 82 /min Dr. Clinton Fowler Work Phone: [facility] 06-16-2022 16:00-0500 Respiratory rate 18 /min Dr. Clinton Fowler Work Phone: [facility] 06-16-2022 16:00-0500 SaO2% (BldA) [Mass fraction] 94 % Dr. Clinton Fowler Work Phone: [facility] 06-16-2022 16:00-0500 Systolic blood pressure 123 mm[Hg] Dr. Clinton Fowler Work Phone: [facility] 06-15-2022 19:47-0500 Body mass index (BMI) [Ratio] 30.4 kg/m2 Dr. Clinton Fowler Work Phone: [facility] 06-15-2022 11:29-0500 Body height 170.[address] Clinton Fowler Work Phone: [facility] 06-15-2022 11:29-0500 Body weight 88.[address] Clinton Fowler Work Phone: [facility] 02-04-2022 15:50-0400 Body height 170.18 cm [facility] Work Phone: 02-04-2022 15:50-0400 Body mass index (BMI) [Ratio] 32.8 kg/m2 [facility] Work Phone: 02-04-2022 15:50-0400 Body temperature 99 [degF] [facility] Work Phone: 02-04-2022 15:50-0400 Body weight 95.25 kg [facility] Work Phone: 02-04-2022 15:50-0400 Diastolic blood pressure 70 mm[Hg] [facility] Work Phone: 02-04-2022 15:50-0400 Heart rate 84 /min [facility] Work Phone: 02-04-2022 15:50-0400 Respiratory rate 14 /min [facility] Work Phone: 02-04-2022 15:50-0400 SaO2% (BldA) [Mass fraction] 97 % [facility] Work Phone: 02-04-2022 15:50-0400 Systolic blood pressure 138 mm[Hg] [facility] Work Phone: Encounters Encounter Date Encounter Type Care Provider Facility Start: 05-13-2025 End: 05-16-2025 ambulatory Clinton Dany Facility:[facility] Start: 05-05-2025 End: 05-05-2025 Emergency department patient visit [facility] Facility:[facility] Start: 03-30-2025 End: 03-30-2025 Emergency department patient visit Dr. Clinton Fowler DO Work Phone: -Emergency Department Work Phone: Start: 02-25-2025 ambulatory [facility] Facility: [facility] Start: 02-22-2025 End: 02-22-2025 Emergency department patient visit Dr. Clinton Fowler DO Work Phone: -Emergency Department Work Phone: Start: 01-01-2025 End: 01-01-[address] Clinton Fowler DO Work Phone: [facility] Work Phone: Start: 01-01-2025 End: 01-01-[address] Clinton Fowler DO -Laboratory Tayo Santana [facility] Start: 01-01-2025 End: 01-01-2025 ambulatory Clinton Fowler Facility:[facility] Start: 12-11-2024 End: 12-11-2024 Patient encounter procedure Hung Adames DO -[facility] Work Phone: Start: 12-11-2024 End: 12-11-[address] Clinton Fowler DO Work Phone: [facility] Work Phone: Start: 11-25-2024 End: 11-25-2024 [facility] Start: 11-25-2024 End: 11-25-2024 Office outpatient new 60 minutes Libertad S Weygandt DISTILLERY SUPERVISOR-[employer]IC STRENGTH INSPECTOR Work Phone: [facility] Comment on above: TOBY (obstructive sle ep apnea) (Primary Dx); PLMD (periodic limb movement disorder); Dementia without behavioral disturbance (Multi); Hypersomnia Start: 06-28-2024 End: 06-28-2024 Emergency department patient visit Clinton Fowler Facility:[facility] Start: 06-09-2024 End: 06-09-2024 ambulatory Hung Adames Facility:[facility] Start: 05-23-2024 End: 05-23-2024 ambulatory Libertad S Weygandt REDUCER Facility:[facility] Start: 01-21-2024 End: 01-21-2024 ambulatory LIBERTAD S WEYGANDT Not Available Start: 09-28-2023 End: 09-28-2023 ambulatory [facility] spital Work Phone: Start: 09-28-2023 End: 09-28-2023 Patient encounter procedure [facility]-Laboratory, Specimen Work Phone: Start: 07-20-2023 End: 07-20-2023 ambulatory LIBERTAD WHITTAKER Not Available Start: 06-07-2023 End: 06-08-2023 Emergency department [facility] Start: 06-04-2023 End: 06-04-[address] Clinton Fowler Work Phone: [facility] Work Phone: Start: 06-03-2023 End: 06-03-[address] Clinton Fowler Work Phone: [facility] Work Phone: Start: 04-27-2023 End: 04-27-[address] Clinton Fowler Work Phone: [facility] Work Phone: Start: 04-27-2023 End: 04-27-[address] Clinton Fowler Work Phone: [facility] Work Phone: Start: 04-25-2023 End: 04-25-[address] Clinton Fowler Work Phone: [facility] Work Phone: Start: 04-25-2023 End: 04-25-[address] Clinton Fowler Work Phone: [facility] Start: 01-24-2023 End: 01-24-[address] Clinton Fowler Work Phone: [facility] Work Phone: Start: 01-24-2023 End: 01-24-[address] Clinton Fowler [facility] Start: 01-14-2023 Non-patient / Non-visit Dr. Clinton Fowler Work Phone: [facility] Work Phone: Start: 01-13-2023 Non-patient / Non-visit Dr. Clinton Fowler Work Phone: [facility] Start: 01-13-2023 Non-patient / Non-visit Dr. Clinton Fowler Work Phone: [facility] Work Phone: Start: 01-12-2023 Non-patient / Non-visit Dr. Clinton Fowler Work Phone: [facility] Start: 01-12-2023 Non-patient / Non-visit Dr. Clinton Fowler Work Phone: [facility] Work Phone: Start: 01-12-2023 End: 01-14-2023 Evaluation and management of inpatient Dr. Clinton Fowler Work Phone: [facility]-Progressive Care Unit Work Phone: Start: 12-05-2022 End: 12-05-[address] Clinton Fowler Work Phone: [facility] Work Phone: Start: 10-23-2022 End: 10-23-[address] Clinton Fowler Work Phone: [facility] Work Phone: Start: 10-23-2022 End: 10-23-[address] Clinton Fowler Work Phone: [facility]-Laboratory Start: 09-20-2022 Non-patient / Non-visit Dr. Clinton Fowler Work Phone: [facility] Start: 09-19-2022 End: 09-19-2022 Non-patient / Non-visit Dr. Clinton Fowler Work Phone: [facility] Start: 09-19-2022 Non-patient / Non-visit Dr. Clinton Fowler Work Phone: [facility] Start: 09-18-2022 Non-patient / Non-visit Dr. Clinton Fowler Work Phone: [facility] Start: 09-17-2022 Non-patient / Non-visit Dr. Clinton Fowler Work Phone: [facility] Start: 09-16-2022 End: 09-20-2022 Evaluation and management of inpatient Dr. Clinton Fowler Work Phone: [facility]-Medical Surgical 3 Start: 08-23-2022 End: 08-23-[address] Clinton Fowler Work Phone: [facility] Work Phone: Start: 08-23-2022 End: 08-23-[address] Clinton Fowler Work Phone: [facility] Start: 08-13-2022 End: 08-13-[address] Clinton Fowler Work Phone: [facility] Work Phone: Start: 08-13-2022 End: 08-13-[address] Clinton Fowler Work Phone: [facility]-Laboratory, Specimen Start: 08-11-2022 End: 08-11-[address] Clinton Fowler Work Phone: [facility] Work Phone: Start: 08-11-2022 End: 08-11-[address] Clinton Fowler Work Phone: [facility]-Laboratory, Specimen Start: 08-10-2022 End: 08-10-[address] Clinton Fowler Work Phone: [facility] Work Phone: Start: 08-10-2022 End: 08-10-[address] Clinton Fowler Work Phone: [facility] Start: 06-16-2022 Non-patient / Non-visit Dr. Clinton Fowler Work Phone: [facility] Start: 06-15-2022 Non-patient / Non-visit Dr. Clinton Fowler Work Phone: [facility] Start: 06-15-2022 End: 06-16-2022 Evaluation and management of inpatient [facility] [facility] Start: 06-15-2022 End: 06-16-[address] Clinton Fowler Work Phone: [facility] Work Phone: Start: 02-04-2022 End: 02-04-2022 Emergency department patient visit [facility] Procedures Date Procedure Procedure Detail Performing Clinician Start: 03-30-[address] Clinton Fowler DO Work Phone: Start: 03-30-2025 Urnls dip stick/tabl et reagent auto microscopy Dr. Clinton Fowler DO Work Phone: Start: 03-30-2025 CT of head without contrast Dr. Clinton Fowler DO Work Phone: Start: 02-22-2025 X-ray of chest, PA a nd lateral views Dr. Clinton Fowler DO Work Phone: Start: 02-22-2025 Urnls dip stick/tabl et reagent auto microscopy Dr. Clinton Fowler DO Work Phone: Start: 02-22-[address] Clinton Fowler DO Work Phone: Start: 02-22-2025 CT of head without contrast Dr. Clinton Fowler DO Work Phone: Start: 02-22-[address] Clinton Fowler DO Work Phone: Start: 09-28-2023 Urine culture Start: 06-07-2023 Plain chest X-ray Start: 04-27-[address] Clinton Fowler Work Phone: Start: 01-13-2023 [address]ium difficil e detection Dr. Clinton Fowler Work Phone: Start: 01-13-[address] Clinton Folwer Work Phone: Start: 01-13-2023 Nucleic acid assay [...] DTaP/Tdap/Td Vaccines (3 - Td or Tdap) [facility] Start: 05-26-2025 End: 05-26-2025 Patient encounter procedure 05/26/2025 1:00 PM EST Office Visit Formerly [facility] Medical Office Building [address] [place] [address] Libertad Whittaker, DISTILLERY SUPERVISOR-CAUSTIC STRENGTH INSPECTOR [address] [address] Formerly [facility] Building Start: 03-30-2025 Bacteria identified in Urine by Culture Urine Culture [facility] Start: 03-30-2025 End: 03-30-2025 [facility] Start: 02-22-2025 [facility] Start: 02-22-2025 [facility] Start: 02-22-2025 Bacteria identified in Urine by Culture Urine Culture [facility] Start: 03-16-2024 COVID-19 Vaccine ( season) COVID-19 Vaccine () [facility] Start: 06-08-2023 [facility] Start: 06-07-2023 Plain chest X-ray Chest 1 View (Portable) [facility] Start: 06-07-2023 XR Chest Single view [facility] Start: 01-14-2023 Patient discharge [facility] Start: 01-13-2023 Ova and Parasites Ova and Parasites [facility] Start: 01-12-2023 Assessment of risk of venous thromboembolism [facility] Start: 01-12-2023 Documentation procedure [facility] Start: 01-12-2023 Insertion of catheter into peripheral vein [facility] Start: 01-12-2023 Measuring intake and output [facility] Start: 01-12-2023 Providing care according to standard [facility] Start: 01-12-2023 Provision of activity privileges [facility] Start: 01-12-2023 Referral to gastroenterology service [facility] Start: 01-12-2023 Referral to occupational therapist [facility] Start: 01-12-2023 Referral to service [facility] Start: 01-12-2023 [facility] Start: 01-12-2023 Following clinical pathway protocol [facility] Start: 01-12-2023 Admission procedure [facility] Start: 01-12-2023 Patient referral to dietitian [facility] Start: 12-26-2022 Pneumococcal vaccination Pneumococcal Vaccine (2 of 2 - PCV) [facility] Start: 09-26-2022 Blood chemistry [facility] Start: 09-25-2022 Blood chemistry [facility] Start: 09-24-2022 Blood chemistry [facility] Start: 09-23-2022 Blood chemistry [facility] Start: 09-22-2022 Blood chemistry [facility] Start: 09-21-2022 Blood chemistry [facility] Start: 09-20-2022 Patient discharge [facility] Start: 09-20-2022 Referral to service [facility] Start: 09-18-2022 Speech therapy assessment [facility] Start: 09-18-2022 Implementation of planned interventions [facility] Start: 09-18-2022 Notification of physician [facility] Start: 09-18-2022 Care planning and problem solving actions [facility] Start: 09-18-2022 Cardiac monitoring [facility] Start: 09-18-2022 Catheterization of vein [facility] Start: 09-18-2022 Elevation of head of bed [facility] Start: 09-18-2022 Exercises [facility] Start: 09-18-2022 Implementation of planned interventions [facility] Start: 09-18-2022 Notification of physician [facility] Start: 09-18-2022 [facility] Start: 09-16-2022 Assessment of risk of venous thromboembolism [facility] Start: 09-16-2022 Care regimes management [facility] Start: 09-16-2022 Catheterization of vein [facility] Start: 09-16-2022 Insertion of catheter into peripheral vein [facility] Start: 09-16-2022 Oxygen therapy [facility] Start: 09-16-2022 Providing care according to standard [facility] Start: 09-16-2022 Provision of activity privileges [facility] Start: 09-16-2022 Referral to occupational therapist [facility] Start: 09-16-2022 Referral to service [facility] Start: 09-16-2022 [facility] Start: 09-16-2022 Following clinical pathway protocol [facility] Start: 09-16-2022 Verification routine [facility] Start: 09-16-2022 Admission procedure [facility] Start: 09-16-2022 Blood culture [facility] Start: 09-16-2022 End: 09-16-2022 [facility] Start: 09-16-2022 Blood culture [facility] Start: 09-16-2022 Patient referral to dietitian [facility] Start: 06-23-2022 Blood chemistry [facility] Work Phone: Start: 06-22-2022 Blood chemistry [facility] Work Phone: Start: 06-21-2022 Blood chemistry [facility] Work Phone: Start: 06-20-2022 Blood chemistry [facility] Work Phone: Start: 06-19-2022 Blood chemistry [facility] Work Phone: Start: 06-18-2022 Blood chemistry [facility] Work Phone: Start: 06-17-2022 Blood chemistry [facility] Work Phone: Start: 06-16-2022 Patient discharge [facility] Start: 06-15-2022 Application of intermittent pneumatic compression device [facility] Start: 06-15-2022 Following clinical pathway protocol [facility] Start: 06-15-2022 Assessment of risk of venous thromboembolism [facility] Start: 06-15-2022 Cardiac monitoring [facility] Start: 06-15-2022 Catheterization of vein [facility] Start: 06-15-2022 Elevation of head of bed [facility] Start: 06-15-2022 Exercises [facility] Start: 06-15-2022 Implementation of planned interventions [facility] Start: 06-15-2022 Insertion of catheter into peripheral vein [facility] Start: 06-15-2022 Measuring intake and output [facility] Start: 06-15-2022 Notification of physician [facility] Start: 06-15-2022 Providing care according to standard [facility] Start: 06-15-2022 Provision of activity privileges [facility] Start: 06-15-2022 Referral to occupational therapist [facility] Start: 06-15-2022 Referral to service [facility] Start: 06-15-2022 Tobacco use cessation education [facility] Start: 06-15-2022 [facility] Start: 06-15-2022 Admission procedure [facility] Start: 06-15-2022 Patient referral to dietitian [facility] Start: 06-14-2022 [facility] Work Phone: Start: 02-17-2011 RSV High Risk: (Elderly (60+) or Population) (1 - 1-dose 75+ series) RSV High Risk: (Elderly (60+) or Population) (1 - 1-dose 75+ series) [facility] Start: 02-17-1986 Zoster Vaccines (1 of 2) Zoster Vaccines (1 of 2) [facility] Start: 02-17-1954 Diabetes mellitus screening Diabetes Screening [facility] Start: 1935 Lipid panel Lipid Panel [facility] Start: 1935 Medicare Annual Wellness Visit Medicare Annual Wellness Visit (AWV) [facility] Start: 1935 Screening for osteoporosis Bone Density Scan [facility] Bacteria identified in Blood by Culture Blood Culture [facility] Bacteria identified in Blood by Culture Blood Culture [facility] Bacteria identified in Urine by Culture Urine Culture [facility] Ova and parasites identified in Unspecified specimen by Light microscopy [facility] Ova and parasites identified in Unspecified specimen by Light microscopy [facility] Patient Education [facility] Work Phone: Patient referral [facility] Work Phone: Procedure [facility] Urine culture Urine Culture [facility] Work Phone: Urine culture [facility] Urine culture [facility] Immunizations Immunization Date Immunization Notes Care Provider Fa cility 06-26-2022 influenza, injectabl e, quadrivalent, preservative free Dr. Clinton Fowler Work Phone: [facility] 06-26-2022 influenza, seasonal, injectable Dr. Clinton Fowler Work Phone: [facility] 09-11-2021 tetanus toxoid, redu luis fernando diphtheria toxoid, and acellular pertussis vaccine, adsorbed [facility] 06-15-2021 Influenza virus vaccine [facility] 04-14-2021 Covid (Moderna) [facility] 09-02-2020 Covid (Moderna) [facility] 08-05-2020 Covid (Moderna) [facility] 07-14-2019 tetanus toxoid, redu luis fernando diphtheria toxoid, and acellular pertussis vaccine, adsorbed [facility] 06-14-2013 Influenza virus vaccine [facility] 07-16-2011 Pneumococcal Vaccine [facility] Work Phone: 07-16-2011 pneumococcal vaccine , unspecified formulation Dr. Clinton Fowler Work Phone: [facility] Payers Date Payer Category Payer Self-pay [id number] 2015 Medicare supplementa l policy (as second payer) [employer] MEDICARE SUPPLEMENT [id number] 2015 Private Health Insurance [id number] 2001 Medicare MEDICARE PART A AND B [id number] 2001 Medicare [id number] 1935 Unknown [id number] 9.2.1259 1936 Unknown [id number] 9.2.125 1936 Unknown [id number] 9.2.1243 Unknown [id number] 9.2.462 Unknown [id number] [id number] 9.2.462 Unknown [id number] 9.2.462 Unknown [id number] [id number] 9.2.462 Unknown [id number] 9.2.462 Unknown [id number] [id number] 9.2.462 Unknown [id number] [id number] 9.2.462 Unknown [id number] [id number] 9.2.462 Unknown [id number] [id number] 9.2.462 Unknown [id number] [id number] 9.2.462 Unknown [id number] [id number] 9.2.462 Unknown [id number] [id number] 9.2.462 Unknown [id number] [id number] 9.2.462 Unknown [id number] 9.2.462 Social History Date Type Detail Facility Start: 02-04-2022 End: 06-07-2023 Tobacco smoking status WAIS Unknown if ever smoked [facility] Start: 12-03-[address] [facility] Start: 07-14-2019 Spouse/ Signif icant Other [facility] Start: 07-14-2019 Non-smoker [facility] Start: 1935 Sex Assigned At Female [facility] Start: 11-25-2024 End: 03-30-2025 Tobacco smoking status NHIS Never smoked tobacco [facility] Work Phone: Start: 11-25-2024 Tobacco use and exposure Smokeless tobacco non-user [facility] Work Phone: Start: 11-25-2024 Alcoholic beverage intake Lifetime non-drinker (finding) [facility] Work Phone: Start: 11-25-2024 History of Social function [facility] Work Phone: Start: 11-25-2024 Tobacco use panel [facility] Work Phone: Start: 1935 Sex assigned at Not on file [facility] Work Phone: Start: 11-15-2024 End: 11-25-2024 Exposure to SARS-CoV-2 (event) Not sure [facility] Goals Date Patient Goal Desired Activity /State Functional Status Date Assessment Result Facility 01-14-2023 Functional status Activity Abili ty With Assist of 1 [facility] Work Phone: 09-20-2022 Functional status Activity Abili ty With Assist of 2 [facility] Work Phone: 09-20-2022 Functional status Chair [facility] Work Phone: 06-16-2022 Functional status Ambulates;Shree r;Bathroom Privilege [facility] Work Phone: Mental Status Date Assessment Result Facility 03-30-2025 Cognitive function Awake;Alert;Disoriente d [facility] Work Phone: 02-22-2025 Cognitive function Level Of Cons ciousness Awake;Follows Commands [facility] Work Phone: 06-07-2023 Cognitive function Level Of Cons ciousness Awake;Disoriented [facility] Work Phone: 01-14-2023 Cognitive function Voice/Name [facility] Work Phone: 09-20-2022 Cognitive function Voice/Name [facility] Work Phone: 09-16-2022 Cognitive function Level Of Cons ciousness Awake;Lethargic;Inappropriate [facility] Work Phone: 06-16-2022 Cognitive function Voice/Name [facility] Work Phone: Clinical Notes 09-16-2022 to 05-16-2025 Note Date & Type Note Facility 05-16-2025 Note [facility] Medical Records Department [address] [place] [address] Discharge Summary 05/16/25 1405 MR#: [id number] Acct: [id number] Name: LIZA HANCOCK Rep #: [id number] : 1935 89 From: Dereck Oliveros MD PCP: Dr. Clinton Fowler, DO Status:ADM TARA Location: [place] [address] Providers Date of Admission: 05/13/25 Date of Discharge: 05/16/25 Primary Care Physician: Dr. Clinton Fowler, DO Reason For Visit: WEAKNESS, MILD BARBRA Diagnosis Discharge Diagnosis (1) Debility: Status: Acute Code(s): R53.81 - Other malaise Plan Patient is an 89-year-old lady with history of dementia with recent diagnosis of UTI brought to the emergency department with progressive generalized weakness 1. Physical deconditioning/debility ??? Secondary to patient recent UTI. Requested for PT OT eval and social work msw to assist with discharge planning 05/15: Discussed with the case briefer. Plan for possible discharge tomorrow. 2. Advanced dementia ??? Patient is on donepezil as well as memantine. Continued supportive care. Orientation cues 06/04: Patient follow-up with psychiatrist Dr. Gong as she has dementia with psychosis. 3. Dehydration ??? Patient was found to have slightly elevated creatinine level on admission managed with IV fluid with subsequent monitoring of electrolyte 05/15: Repeat BUN/creatinine 04/08.3. 4. Recent cystitis with Klebsiella ??? Patient was managed appropriately 05/15: Recent urine culture shows Klebsiella pneumoniae more than 100,000 colonies on 05/05. 05/16: Patient had completed antibiotics in the past. At this time UA is negative for pyuria, LE and nitrite negative. Patient was on multiple antibiotics in the past, still lingering on home medications, nitrofurantoin and Bactrim DS was show discontinued 5. Anemia ??? Secondary to chronic disorder monitoring H H and transfuse if patient becomes symptomatic or hemoglobin falls below 7 6. Diabetes mellitus type 2 ??? Patient managed with metformin and glipizide, oral agents held on admission, placed on Accu-Cheks AC and at bedtime with sliding scale coverage 05/15: Glucoses controlled 7. GERD ??? On PPI 8. Hypertension ??? Blood pressure controlled, home medications continued with dose adjustment as needed 9. Exocrine pancreatic insufficiency ??? Continue home Creon. 10. Dyslipidemia ???Patient is on statin therapy, continued at home dose 11. Sjogren syndrome Not on active management 12. Restless leg syndrome ??? Patient is on ropinirole 13. DVT prophylaxis ??? Subcu heparin Discharge medication reconciliation done. Discharge follow-up instructions completed. Discharge process discussed with the patient and all questions were answered to patient's satisfaction. Follow with PCP in 1 to 2 weeks. Discharged home Total time spent, exact 35 minutes on discharge meds reconciliation, examination, coordination of care with nurses and ancillary staff, review of imaging and blood test and discussion with the patient on follow-up instructions. Microbiology Past 72 Hours 05/13/25 15:11 Blood Culture (Wb) - Right Forearm Blood Culture - Preliminary No growth in 48 hours. 05/13/25 14:24 Blood Culture (Wb) - Right Forearm Blood Culture - Preliminary No growth in 48 hours. Laboratory Results 05/14/25 16:20: POC Glucose 147 H 05/14/25 20:43: POC Glucose 165 H 05/15/25 06:38: POC Glucose 121 H 05/15/25 10:59: POC Glucose 213 H Medications at Discharge Home Medications omeprazole 40 mg capsule,delayed release 40 mg PO DAILY GERD 01/06/14 cholecalciferol (vitamin D3) 25 mcg (1,000 unit) capsule 1,000 unit PO DAILY supplement 08/28/16 metformin 500 mg tablet 500 mg PO DAILY blood sugar 08/28/16 cinnamon bark 500 mg capsule 1,000 mg PO DAILY supplement 11/30/17 wpyiisbz-jpi-ugohb acid 0.4 mg-lycopene 300 mcg-lutein 250 mcg tablet 1 ea PO BID supplement 12/03/18 memantine 10 mg tablet 10 mg PO BID mental health 09/11/21 ramipril 5 mg capsule 5 mg PO DAILY blood pressure 01/11/22 modafinil 100 mg tablet 200 mg PO DAILY sleepiness 09/16/22 aspirin 81 mg chewable tablet 81 mg PO BREAKFAST #30 tabs 09/20/22 acetaminophen 500 mg tablet (Tylenol Extra Strength) 500 mg PO BID 06/07/23 psrtpd-damaiskd-uinsxlb 36,000-114,000-180,000 unit capsule,delay rel (Creon) 3 cap PO .[facility] #300 caps 07/24/24 atorvastatin 40 mg tablet 80 mg PO DAILY 05/13/25 cyanocobalamin (B12)-cobamamide 5,000 mcg-100 mcg sublingual lozenge (B12) 1 dorota sublingual DAILY 05/13/25 donepezil 10 mg tablet 10 mg PO QHS 05/13/25 ferrous gluconate 240 mg (27 mg iron) tablet (Ferate) 240 mg PO DAILY 05/13/25 glipizide 2.5 mg tablet 2.5 mg PO BID 05/13/25 ropinirole 0.5 mg tablet 0.5 mg PO DAILY 05/13/25 Physical Exam Narrative Seen and examined. Patient has dementia and her is main caregiver. Admitted with generaliz (more content not included)... [facility] 03-30-2025 Radiology Diagnostic study note [facility] Imaging Services [address] [place], [place] [id number] Brain/Head without Contrast MR#: [id number] Acct: [id number] Name: LIZA HANCOCK Rep #: [id number] : 1935 F 89 From: Shagufta Lin MD PCP: Dr. Clinton Fowler, DO Status: REG ER Study:Brain/Head without Contrast Date of Exa m: 03/30/25 Exam# [id number] Ordering Dr: Ivette Oshea DO PROCEDURE: BRAIN/HEAD WITHOUT CONTRAST 03/30/2025 REASON FOR EXAM: ALTERED MENTAL STATUS TECHNIQUE: Procedure Code: CTBR Modality: CT Procedure: BRAIN/HEAD WITHOUT CONTRAST Coronal and Sagittal reconstruction series were provided. One or more dose reduction techniques were used (e.g., Automated exposure control, adjustment of the mA and/or kV according to patient size, use of iterative reconstruction technique. RADIATION DOSE SUMMARY: CTDI Vol 44.99 mGy DLP :846.73 mGycm COMPARISON: 22-Feb-2025 FINDINGS: Accentuated bilateral cerebral periventricular deep white matter hypodensities denoting hypoperfusion with bilateral cerebral periventricular and subcortical as well as basal ganglia hypodense foci and patches. Veliz-white matter differentiation is maintained. Normal CT appearance of the posterior fossa structures. No intracerebral or extra axial hemorrhage. Dilated ventricular system, cortical sulci and extra-axial CSF spaces with fronto-temporal atrophic changes. No definite calvarial fractures. No midline shifts or deformity. The osseous structures in the skull base are unremarkable. Paranasal sinuses are unremarkable. Vascular atheromatous calcifications. CT/Brain/Head without Contrast IMPRESSION: No acute cerebrovascular abnormalities. If clinical symptoms persist, further evaluation with MRI may be considered as clinically warranted. No intra or extra-axial acute hemorrhage. Bilateral cerebral microvascular ischemic changes with age matches brain involutional changes. Stable. Reading Location: [place] [address] CC: Dr. Clinton Fowler DO; Quentin Oshea DO ~ Bilingual Executive Assistant: Signed [facility] 02-27-2025 Hospital Discharg e instructions Additional Instructions Your 's workup today revealed a urinary tract infection similar to 1 month ago but no signs of systemic infection/sepsis. Please take the Macrobid/nitrofurantoin to resolve the infection; this is the same medication that was prescribed 1 month ago and therefore should resolve infection as it did at that time. Return to the ER should you have any further concerns or worsening of symptoms [facility] Work Phone: 02-22-2025 Radiology Diagnostic study note [facility] Imaging Services [address] [place] [address] Chest PA and Lateral MR#: [id number] Acct: [id number] Name: LIZA HANCOCK Rep #: [id number] : 1935 F 89 From: Huyen Noble MD PCP: Dr. Clinton Fowler DO Status: [facility] ER Study:Chest PA and Lateral Date of Exam: 02/22/25 Exam# [id number] Ordering Dr: Sixto Alvarez DO PROCEDURE: CHEST [...] Lateral IMPRESSION: NO ACUTE FINDINGS. Reading Location: [facility] CC: Dr. Sixto Alvarez DO; Dr. Clinton Fowler DO ~ Bilingual Executive Assistant: Signed [facility] 02-22-2025 Radiology Diagnostic study note [facility] Imaging Services [address] [place], [place] [address] Brain/Head without Contrast MR#: [id number] Acct: [id number] Name: LIZA HANCOCK Rep #: [id number] : 1935 F 89 From: Huyen Noble MD PCP: Dr. Clinton Fowler DO Status: REG ER Study:Brain/Head without Contrast Date of Exa m: 02/22/25 Exam# [id number] Ordering Dr: Sixto Alvarez DO EXAM: BRAIN/HEAD [...] shift, mass effect, or extra-axial collection. The veliz and white matter interfaces are otherwise maintained. The orbits, visualized paranasal sinuses and mastoids are unremarkable. No acute calvarial fracture or scalp hematoma. CT/Brain/Head without Contrast IMPRESSION: No acute intracranial finding. Reading Location: [facility] CC: Dr. Sixto Alvarez DO; Dr. Clinton Fowler DO ~ Bilingual Executive Assistant: Signed [facility] 12-11-2024 Evaluation note Diagnosis Onset Date Resolution Chronic anemia chronic December 11, 2024 1:48pm Exocrine pancreatic insufficiency chronic December 11, 2024 1:48pm GI bleed resolved December 11, 2024 1:48pm Loose stools inactive December 11 1:48pm [facility] Work Phone: 1(690) 928-304705-13-2025 History of Present illness Narrative* Libertad Whittaker, JOSSY - 11/25/2024 1:00 PM EDT Images from the original note were not included. CHIEF COMPLAINT: Dementia Plmd Toby hypersomnia HISTORY OF PRESENT ILLNESS: 89 year old female presented to office with spouse to establish care for dementia, plmd, toby and hypersomnia. Known to this provider, previously at [facility]- office closed. Wears pap nightly, sleeps well at night at least 8-12 hours, tolerates well per spouse. Denies snoring or gasping for air through mask. Requesting compliance report from [facility]. Previously good compliance. Spouse does not note [...] encounter. Follow up in 6 months Libertad Ronn Whittaker APRN-FELICITAS [1] Current Outpatient Medications on [...] Take 1 capsule (1,000 Units) by mouth. tlhm-vcolx-RPN-oay-bovszxu-zlz 100 mg-100 mcg- 100 mg-100 mg capsule [...] Brother Alcohol abuse D[facility] Phone: 1(860) 203-462905-13-2025 Instructions* Patient Instructions* JOSSY Abrams - 11/25/2024 1:00 PM EDT Continue to wear pap therapy every night Increase activity/exercise daily Follow up in 6 [facility] Work Phone: 1([phone]) 472-345611-23-2023 Discharge summary Author Nikki Jacques [facility] June 08, 2023 12:30am Note Date/Time June 07, 2023 11:19pm [facility] Medical Records Department [address] [place] [address] Emergency Department Summary 06/07/23 MR#: [id number] Acct: [id number] Name: LIZA HANCOCK Rep #:[id number] : 1935 88 From: Nikki Jacques MD [...] that hegave her hot chocolate before bed. 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 IV line initiated. Labwork obtained to evaluate [...] (Auto) 43.4 L Lymph % (Auto) 39.9 [place] % (Auto) 10.5 H Eos % (Auto) [...] 80 mg PO QHS Qty: 30 0RF zuhvnuaj-cyi-PL-lycopen-lutein 1 EACH tablet 1 ea PO BID [...] Primary Care Provider: Clinton Fowler Referrals: Clinton Fowler, [Primary Care Provider] - As Needed Disposition Disposition: Home, Self Care What to do if you have Problems For any increased pain, shortness of breath, bleeding, nausea or vomiting, chestpain, or any unexpected problems, contact your Primary Care Provider. Call [facility] ([phone]) or report to the closest Emergency Room. Call 911 if necessary. 06/08/23 0030 <Electronically signed by Nikki Jacques MD> Cosigner Signature (if applicable): CC: Dr. Clinton Fowler, DO ~ Signed [facility] Work Phone: 1(329) 709-932707-02-2023 Progress note Author Sixto Braswell [facility] January 14, 2023 1:35pm Note Date/Time January 14, 2023 9:08a m [facility] Medical Records Department [address] [place] [address] Progress Note - Hospitalist 01/14/23905 MR#: [id number] Acct: [id number] Name: LIZA HANCOCK Kimmy Rep #:[id number] : 1935 87 From: Sixto Braswell DO PCP: Dr. Clinton Fowler, DO Status:ADM IN Location: [place] [address] Reason for Visit Reason for Visit: Diagnoses [...] 01/13/23 15:16 TIRSO (Rec: 01/13/23 15:16 TIRSO [id number]) Nutrition Malnutrition Evidence of Malnutrition Exists Yes [...] % (Auto) 54.5, Lymph % (Auto) 31.1, [place] % (Auto) 9.1, Eos % (Auto) 3.6, [...] patient's , who is her power of maintenance worker house trailer,patient is to be DNR Comfort Care arrest. Discharge home. Charges/Coding Visit Charges Inpatient E&M: 15961 Subs Hosp L2 01/14/23 1335 <Electronically signed by Sixto Braswell DO> Cosigner Signature (if applicable): CC: ~ Signed [facility] Work Phone: 1([phone]) 515-329807-01-2023 Progress note Author Hung Adames [facility] January 13, 2023 8:16pm Note Date/Time January 13, 2023 8:15p m [facility] Medical Records Department [address] [place] [address] Progress Note - GI 01/13/232013 MR#: [id number] Acct: [id number] Name: LIZA HANCOCK Rep #:[id number] : 1935 87 From: Hung Adames DO PCP: Dr. Clinton Fowler, Status:ADM IN Location: [address] Subjective Subjective Patient had another large [...] 01/13/23 15:16 TIRSO (Rec: 01/13/23 15:16 TIRSO [id number]) Nutrition Malnutrition Evidence of Malnutrition Exists Yes [...] % (Auto) 47.8, Lymph % (Auto) 36.7, [place] % (Auto) 10.2 H, Eos % (Auto) [...] to bleed. Charges/Coding Visit Charges Inpatient E&M: 30522 Subs Hosp L3 01/13/232015 <Electronically signed by Hung Adames DO> Cosigner Signature (if applicable): CC: ~ Signed [facility] Work Phone: 1([phone]) 392-582207-01-2023 Progress note Author Sixto Braswell [facility] January 13, 2023 11:08am Note Date/Time January 13, 2023 8:25a m [facility] Medical Records Department [address] [place] [address] Progress Note - Hospitalist 01/13/23820 MR#: [id number] Acct: [id number] Name: LIZA HANCOCK Kimmy Rep #:[id number] : 1935 87 From: Sitxo Braswell DO PCP: Dr. Clinton Fowler, DO Status:ADM IN Location: [facility] [id number]- [id number] Reason for Visit Reason for Visit: [...] % (Auto) 61.7, Lymph % (Auto) 27.4, [place] % (Auto) 7.1, Eos % (Auto) 2.0, [...] Clarity Clear, Urine pH 5.0, Ur Specific Logan 1.015, Urine Protein Negative, Urine Glucose (UA) [...] % (Auto) 47.8, Lymph % (Auto) 36.7, [place] % (Auto) 10.2 H, Eos % (Auto) [...] patient's , who is her power of maintenance worker house trailer,patient is to be DNR Comfort Care arrest. Charges/Coding Visit Charges Inpatient E&M: 41869 Subs Hosp L2 01/13/23 1108 <Electronically signed by Sixto Braswell DO> Cosigner Signature (if applicable): CC: ~ Signed [facility] Work Phone: 1([phone]) 557-681706-30-2023 Consult note Author Hung Friend [facility] January 12, 2023 5:52pm Note Date/Time January 12, 2023 5:49 pm [facility] Medical Records Department [address] [place] [address] Consultation - GI 01/12/23 1749 MR#: [id number] Acct: [id number] Name: LIZA HANCOCK Rep #:[id number] : 1935 87 From: Hung Adames DO PCP: Dr. Clinton Fowler, DO Status:ADM IN Location: [place] [id number] HPI Consult Data Date of Consult: 01/12/23 HPI Narrative Reason for Consultation: GI bleed HPI Narrative: LIZA HANCOCK, is a 87 F who presents via [...] a non-smoker who lives with her . [facility] Medical History (Updated 01/12/23 @ 16:15 [...] #30 tabs 12/03/17 [Rx Last Taken 01/11/23] nlbxyiel-dzg-bbpei acid 0.4 mg-lycopene 300 mcg-lutein 250 mcg [...] #30 tabs 09/20/22 [Rx Last Taken 01/11/23] rlqksg-lgmokvfp-awwprpx 36,000-114,000-180,000 unit capsule,delay rel (Creon) See Rx [...] % (Auto) 61.7, Lymph % (Auto) 27.4, [place] % (Auto) 7.1, Eos % (Auto) 2.0, [...] Clarity Clear, Urine pH 5.0, Ur Specific Logan 1.015, Urine Protein Negative, Urine Glucose (UA) [...] Signed: Alex Lobato MD at 15:09 EDT Reading Location ID and State: [facility] / [place] , Service support , Assessment & Plan Assessment/Plan (1) GI [...] blood thinners. Charges/Coding Visit Charges Inpatient E&M: 71597 Subs Hosp L2 01/12/23 3629 <Electronically signed by Hung Adames DO> Cosigner Signature (if applicable): CC: Dr. Clinton Fowler DO~ Signed [facility] Work Phone: 1([phone]) 762-876806-30-2023 Discharge summary Author Isiah Winn [facility] January 12, 2023 4:48pm Note Date/Time January 12, 2023 12:2 8pm [facility] Medical Records Department [address] [place] [address] Emergency Department Summary 01/12/23 MR#: [id number] Acct: [id number] Name: LIZA HANCOCK Rep #:[id number] : 1935 87 From: Isiah Osuna PCP: Dr. Clinton Fowler DO Status:ADM IN Location: [place] [id number]- 1 HPI HPI - GI History of Present [...] has not been transfused in the past. [facility] Medical History (Updated 01/12/23 @ 16:15 by [...] #30 tabs 12/03/17 [Rx Last Taken 01/11/23] efjgicrl-pfu-nydpn acid 0.4 mg-lycopene 300 mcg-lutein 250 mcg [...] #30 tabs 09/20/22 [Rx Last Taken 01/11/23] qpmnyy-vjhsuoax-nicfuza 36,000-114,000-180,000 unit capsule,delay rel (Creon) See Rx [...] brain due to her stroke history and March with confusion. CT scans all stable. I discussed with hospitalist Dr. Braswell for admission. Re-evaluation: stable Disposition discussed with patient/family/significant other: Patient and significant other Case discussed with consulting clinician: GI Dr. Adames, hospitalist Dr. Braswell. This note was generated with [employer] dictation software. It may contain incorrectwords, spelling, [...] % (Auto) 61.7 Lymph % (Auto) 27.4 [place] % (Auto) 7.1 Eos % (Auto) 2.0 [...] Clarity Clear Urine pH 5.0 Ur Specific Logan 1.015 Urine Protein Negative Urine Glucose (UA) [...] disease, Weakness Disposition Disposition: Acute Care Hospital [facility] What to do if you have Problems For any increased pain, shortness of breath, bleeding, nausea or vomiting, chestpain, or any unexpected problems, contact your Primary Care Provider. Call [facility] ([phone]) or report to the closest Emergency Room. Call 911 if necessary. 01/12/23 1648 <Electronically signed by Isiah Osuna> Cosigner Signature (if applicable): CC: Dr. Clinton Fowler DO ~ Signed [facility] Work Phone: 1([phone]) 396-683606-30-2023 History and physical note Author Sixto Braswell [facility] January 12, 2023 2:24pm Note Date/Time January 12, 2023 2:24 pm [facility] Medical Records Department [address] [place] [address] H&P Exam - Hospitalist 01/12/23 1419 MR#: [id number] Acct: [id number] Name: LIZA HANCOCK Rep #:[id number] : 1935 87 From: Sixto Braswell DO PCP: Dr. Clinton Fowler DO Status:ADM IN Location: [facility] [id number]- [id number] HPI - General General Date of Admission: 01/12/23 Date of Service: 01/12/23 Chief Complaint: BRBPR HPI Narrative LIZA HANCOCK, is a 87 F who presents with [...] typical of her baseline accordingto her . [facility] Medical History Alzheimer disease AMS (altered [...] tablet 500 mg PO DAILY blood sugar 02/13/17 [History Last Taken 01/11/23] cinnamon bark 500 mg capsule 1,000 mg PO DAILY supplement 11/30/17 [History Last Taken 01/11/23] atorvastatin 80 mg tablet 80 mg PO QHS #30 tabs 12/03/17 [Rx Last Taken 01/11/23] clopidogrel 75 mg tablet 75 mg PO DAILY #30 tabs 12/03/17 [Rx Last Taken 01/11/23] rfnemanf-kap-ppprd acid 0.4 mg-lycopene 300 mcg-lutein 250 mcg [...] #30 tabs 09/20/22 [Rx Last Taken 01/11/23] avpjjv-hqtnnzas-ivmrhed 36,000-114,000-180,000 unit capsule,delay rel (Creon) See Rx [...] % (Auto) 61.7, Lymph % (Auto) 27.4, [place] % (Auto) 7.1, Eos % (Auto) 2.0, [...] Clarity Clear, Urine pH 5.0, Ur Specific Logan 1.015, Urine Protein Negative, Urine Glucose (UA) [...] time. GI on consult Hold aspirin and yxswxjcqce-szei-dec for now. Clear liquid diet (2) Delirium: [...] patient's , who is her power of maintenance worker house trailer,patient is to be DNR Comfort Care arrest. Charges/Coding Visit Charges Inpatient E&M: 92746 Init Hosp L3 01/12/23 1424 <Electronically signed by Sixto Braswell DO> Cosigner Signature (if applicable): CC: Dr. Sixto Braswell DO; Dr. Clinton Fowler DO~ Signed [facility] Work Phone: 1([phone]) 797-805203-07-[address] Verma [facility] September 19, 2022 5:39pm Note Date/Time September 18, 2022 1:37 pm [facility] Medical Records Department [address] [place] [address] Progress Note 09/18/22 1336 MR#: [id number] Acct: [id number] Name: LIZA HANCOCK Rep #:[id number] : 1935 87 From: Isa Verma MD PCP: Dr. Clinton Fowler DO Status:ADM IN Location: [place] [address] Subjective Subjective Patient seen and examined. She [...] RDW Std Deviation 41.9, RDW Coeff of Macrio 12.6, Plt Count 235, MPV 10.0, Immature Gran % (Auto) 0.500, Neut % (Auto) 57.8, Lymph % (Auto) 28.2, [place] % (Auto) 9.7, Eos % (Auto) 2.9, [...] prophylaxis: Lovenox Charges/Coding Visit Charges Inpatient E&M: 93570 Subs Hosp L2 09/19/22 1739 <Electronically signed by Isa Verma MD> Isa Verma MD Cosigner Signature (if applicable): CC: ~ Signed [facility] Work Phone: 1(758) 969-967603-07-[address] Verma [facility] September 19, 2022 2:34pm Note Date/Time September 19, 2022 2:34 pm [facility] Medical Records Department [address] [place] [address] Progress Note 09/19/22 1426 MR#: [id number] Acct: [id number] Name: LIZA HANCOCK Rep #:[id number] : 1935 87 From: Isa Verma MD PCP: Dr. Clinton Fowler, DO Status:ADM IN Location: [place] [address] Subjective Subjective Patient seen and examined. She [...] % (Auto) 59.7, Lymph % (Auto) 25.5, [place]% (Auto) 10.5 H, Eos % (Auto) 2.9, [...] I did speak to patient's Mr. Mat Hancock today who said his goal was to [...] doingwith therapy. Charges/Coding Visit Charges Inpatient E&M: 14988 Subs Hosp L2 09/19/22 1671 <Electronically signed by Isa Verma MD> Isa Verma MD Cosigner Signature (if applicable): CC: ~ Signed [facility] Work Phone: 1([phone]) 725-748903-06-[address] Verma [facility] September 18, 2022 1:35pm Note Date/Time September 18, 2022 1:36 pm [facility] Medical Records Department [address] [place] [address] Telemedicine Confirmation Receipt 09/18/22 MR#: [id number] Acct: [id number] Name: LIZA HANCOCK Rep #:[id number] : 1935 87 From: Isa Verma MD PCP: Dr. Clinton Fowler, DO Status:ADM IN [facility] has confirmed receipt of a request for visit. This document confirms receipt of the order initiating the consult. To find the results of the consultation, please view the patient's reports for the scanned Telemed Consult. [facility] Work Phone: 1(276) 922-857603-05-[address] Chawla [facility] September 17, 2022 4:41pm Note Date/Time September 17, 2022 7:15 am [facility] Medical Records Department [address] [place] [address] Progress Note - Hospitalist 09/17/22 0707 MR#: [id number] Acct: [id number] Name: LIZA HANCOCK Rep #:[id number] : 1935 87 From: Maria D Chawla MD PCP: Dr. Clinton Fowler, DO Status:ADM IN Location: CT3 [id number] Reason for Visit Reason for Visit: Diagnoses [...] % (Auto) 57.8, Lymph % (Auto) 30.3, [place] % (Auto) 8.6, Eos % (Auto) 1.9, [...] Clarity Clear, Urine pH 5.0, Ur Specific Logan 1.015, Urine Protein Negative, Urine Glucose (UA) [...] Signed: Nathaniel Lebron MD at 16:54 EST Reading Location ID and State: [facility] / [place] Tel , Service support , Chest X-Ray 09/16/22 16:20 IMPRESSION: No [...] No overt focal neurological deficits, handgrip equal, jmqben-pz-ilbd bilaterally without difficulty, able to lift and [...] culture. 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 Paredes [facility] September 17, 2022 5:58am Note Date/Time September 17, 2022 5:58 am [facility] Medical Records Department [address] [place] [address] Progress Note 09/17/22 0555 MR#: [id number] Acct: [id number] Name: LIZA HANCOCK Rep #:[id number] : 1935 87 From: Foreign Paredes MD PCP: Dr. Clinton Fowler, DO Status:ADM IN Location: [place] [address] Progress Note Preliminary blood culture; one with gram positive rods in chains. Patient has no fever or leukocytosis. Likely contaminant. 09/17/22 0558 <Electronically signed by Foreign Paredes MD> Foreign Paredes MD Cosigner Signature (if applicable): CC: ~ Signed [facility] Work Phone: 1([phone]) 508-278003-04-2023 History and physical note Author Dr. Buckner [facility] September 16, 2022 8:11pm Note Date/Time September 16, 2022 6:43 pm [facility] Medical Records Department [address] [place] [address] H&P Exam - Hospitalist 09/16/22 1839 MR#: [id number] Acct: [id number] Name: LIZA HANCOCK Rep #:[id number] : 1935 87 From: Estrella Buckner DO PCP: Dr. Clinton Fowler, DO Status:ADM IN Location: [facility]3 HK389-1 HPI - General General Date of Admission: 09/16/22 Date of Service: 09/16/22 Chief Complaint: MS Batista HPI Narrative LIZA HANCOCK, is a 87 F who presented to the emergency department at [facility] with her on 09/16/2022 after she was [...] with no injuries. Both falls happened within k34-nnsm period. She ambulates in the home by [...] this prohibited the from taking her home. [facility] Medical History Alzheimer disease AMS (altered [...] #30 tabs 12/03/17 [Rx Last Taken 09/15/22] lpiisyga-bqr-ovrla acid 0.4 mg-lycopene 300 mcg-lutein 250 mcg [...] PO QHS 06/14/22 [History Last Taken 09/15/22] kigpvt-xmrxwqag-cvogvda 36,000-114,000-180,000 unit capsule,delay rel (Creon) See Rx [...] % (Auto) 57.8, Lymph % (Auto) 30.3, [place] % (Auto) 8.6, Eos % (Auto) 1.9, [...] Clarity Clear, Urine pH 5.0, Ur Specific Logan 1.015, Urine Protein Negative, Urine Glucose (UA) [...] Signed: Nathaniel Lebron MD at 16:54 EST Reading Location ID and State: [facility] / [place] Tel , Service support , Chest X-Ray 09/16/22 16:20 IMPRESSION: No [...] on admission Charges/Coding Visit Charges Inpatient E&M: 74664 Init Hosp L3 09/16/222010 <Electronically signed by Estrella Buckner DO> Cosigner Signature (if applicable): CC: Dr. Estrella Buckner DO; Dr. Clinton Fowler DO~ Signed [facility] Work Phone: 1([phone]) 205-452103-04-[address] Thomas [facility] September 16, 2022 6:52pm Note Date/Time September 16, 2022 3:34 pm [facility] Medical Records Department [address] [place] [address] Emergency Department Summary 09/16/22 MR#: [id number] Acct: [id number] Name: LIZA AHNCOCK Rep #:[id number] : 1935 87 From: Moncho Thomas MD PCP: Dr. Clinton Fowler, DO Status:REG [...] similar symptoms: No Recent Illness/Hospitalization: No PFSH PFS Medical History Alzheimer disease AMS (altered mental [...] #30 tabs 12/03/17 [Rx Last Taken 09/15/22] qwkkwgli-rcu-ypwkj acid 0.4 mg-lycopene 300 mcg-lutein 250 mcg [...] PO QHS 06/14/22 [History Last Taken 09/15/22] vcylkb-clpkquse-kbpikvs 36,000-114,000-180,000 unit capsule,delay rel (Creon) See Rx [...] % (Auto) 57.8 Lymph % (Auto) 30.3 [place] % (Auto) 8.6 Eos % (Auto) 1.9 [...] Color Urine Clarity Urine pH Ur Specific Logan Urine Protein Urine Glucose (UA) Urine Ketones [...] (Auto) Neut % (Auto) Lymph % (Auto) [place] % (Auto) Eos % (Auto) Baso % [...] Clarity Clear Urine pH 5.0 Ur Specific Logan 1.015 Urine Protein Negative Urine Glucose (UA) [...] rate of 73 no acute signs of [place] or ischemia. No significant change from a [...] 30 0RF Hold Instructions: Resume on 09/16/21. ksjxoxwm-wky-KV-lycopen-lutein 1 EACH tablet 1 ea PO BID [...] Provider] - Disposition Disposition: Acute Care Hospital [facility] What to do if you have Problems For any increased pain, shortness of breath, bleeding, nausea or vomiting, chestpain, or any unexpected problems, contact your Primary Care Provider. Call [facility] ([phone]) or report to the closest Emergency Room. Call 911 if necessary. 09/16/221851 <Electronically signed by Moncho Thomas MD> Cosigner Signature (if applicable): CC: Dr. Clinton Fowler DO ~ Signed [facility] Work Phone: 1(185) 563-392603-04-[address] Thomas [facility] September 16, 2022 6:52pm Note Date/Time September 16, 2022 3:34 pm [facility] Medical Records Department [address] [place] [address] Emergency Department Summary 09/16/22 MR#: [id number] Acct: [id number] Name: LIZA HANCOCK Rep #:[id number] : 1935 87 From: Moncho Thomas MD [...] #30 tabs 12/03/17 [Rx Last Taken 09/15/22] wvwhxsxd-ryl-sorzn acid 0.4 mg-lycopene 300 mcg-lutein 250 mcg [...] PO QHS 06/14/22 [History Last Taken 09/15/22] udkrah-sgaysmwp-lbdamvq 36,000-114,000-180,000 unit capsule,delay rel (Creon) See Rx [...] % (Auto) 57.8 Lymph % (Auto) 30.3 [place] % (Auto) 8.6 Eos % (Auto) 1.9 [...] Color Urine Clarity Urine pH Ur Specific Logan Urine Protein Urine Glucose (UA) Urine Ketones [...] (Auto) Neut % (Auto) Lymph % (Auto) [place] % (Auto) Eos % (Auto) Baso % [...] Clarity Clear Urine pH 5.0 Ur Specific Logan 1.015 Urine Protein Negative Urine Glucose (UA) [...] rate of 73 no acute signs of [place] or ischemia. No significant change from a [...] 30 0RF Hold Instructions: Resume on 09/16/21. hobigbdk-jbz-LN-lycopen-lutein 1 EACH tablet 1 ea PO BID [...] Provider] - Disposition Disposition: Acute Care Hospital [facility] What to do if you have Problems For any increased pain, shortness of breath, bleeding, nausea or vomiting, chestpain, or any unexpected problems, contact your Primary Care Provider. Call [facility] ([phone]) or report to the closest Emergency Room. Call 911 if necessary. 09/16/22 3546 <Electronically signed by Moncho Thomas MD> Cosigner Signature (if applicable): CC: Dr. Clinton Fowler DO ~ Signed [facility] Work Phone: Discharge summary Author Dr. Verma [facility] September 20, 2022 4:56pm Note Date/Time September 20, 2022 4:56 pm [facility] Medical Records Department [address] [place] [address] Discharge Summary 09/20/22 1643 MR#: [id number] Acct: [id number] Name: LIZA HANCOCK Rep #:[id number] : 1935 87 From: Ias Verma MD PCP: Dr. Clinton Fowler DO Status:ADM IN Location: [place] [address] Providers Date of Admission: 09/16/22 Date of Discharge: 09/20/22 Primary Care Physician: Dr. Clinton Fowler, Diagnosis Discharge Diagnosis (1) Hyperglycemia: Status: Acute [...] I did speak to patient's Mr. Mat Hancock today who said his goal was to [...] 75 mg PO DAILY #30 tabs 12/03/17 neguilbr-zzp-dyyhw acid 0.4 mg-lycopene 300 mcg-lutein 250 mcg [...] mg tablet 10 mg PO QHS 06/14/22 enjlzo-ytmwnznz-tsjbkli 36,000-114,000-180,000 unit capsule,delay rel (Creon) See Rx [...] Neut % (Auto) 63.8, Lymph % (Auto) 23.9,[place] % (Auto) 9.7, Eos % (Auto) 1.5, [...] 30 0RF Hold Instructions: Resume on 09/16/21. kbdivjju-ltp-UL-lycopen-lutein 1 EACH tablet 1 ea PO BID [...] Health Service Charges/Coding Visit Charges Inpatient E&M: 90405 Disch Hosp >30min 09/20/221655 <Electronically signed by Isa Verma MD> Cosigner Signature (if applicable): CC: Dr. Clinton Fowler DO; Dr. Isa Verma MD~ Signed [facility] Work Phone: Discharge summary Author Dr. Verma [facility] September 20, 2022 4:58pm Note Date/Time September 20, 2022 4:58 pm [facility] Medical Records Department [address] [place] [id number] Instructions for Home/Discharge Instructions 09/20/221656 MR#: [id number] Acct: [id number] Name: LIZA HANCOCK Rep #:[id number] : 1935 87 From: Isa Verma MD [...] Clinton Fowler Consulting Providers: Estrella Buckner ; MariaD Chawla Instructions Patient Instructions: Discharge Instructions for [...] 30 0RF Hold Instructions: Resume on 09/16/21. ugevsaoj-rqb-HV-lycopen-lutein 1 EACH tablet 1 ea PO BID [...] can be placed): Home Health Service 09/20/22 1658<Electronically signed by Isa Verma MD>Isa Verma MD CC: Dr. Estrella Buckner DO; Dr. Clinton Fowler DO; Dr. Maria D Chawla MD ~ Signed [facility] Work Phone: Discharge summary Author Sixto Braswell [facility] January 14, 2023 1:41pm Note Date/Time January 14, 2023 1:38p m [facility] Medical Records Department [address] [place] [address] Instructions for Home/Discharge Instructions 01/14/23 1335 MR#: [id number] Acct: [id number] Name: HANCOCKLIZA Rep #:[id number] : 1935 87 From: Sixto Braswell DO [...] 80 mg PO QHS Qty: 30 0RF qclijjni-eyo-GG-lycopen-lutein 1 EACH tablet 1 ea PO BID [...] Braswell DO>Sixto Braswell DO CC: Dr. Clinton Fowler, ~ Signed [facility] Work Phone: Discharge summary Author Sixto Braswell [facility] January 14, 2023 1:43pm Note Date/Time January 14, 2023 1:43p m [facility] Medical Records Department [address] [place] [address] Discharge Summary 01/14/23 1341 MR#: [id number] Acct: [id number] Name: LIZA HANCOCK Rep #:[id number] : 1935 87 From: Sixto Braswell DO PCP: Dr. Clinton Fowler DO Status:ADM IN Location: [facility] [id number] Providers Date of Admission: 01/12/23 Primary Care Physician: Dr. 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 [...] 80 mg PO QHS #30 tabs 12/03/17 jwdvauqa-vkp-okixg acid 0.4 mg-lycopene 300 mcg-lutein 250 mcg [...] 81 mg PO BREAKFAST #30 tabs 09/20/22 vaggud-nersgbaw-ercvduh 36,000-114,000-180,000 unit capsule,delay rel (Creon) See Rx [...] Document 01/13/23 15:16 TIRSO (Rec: 01/13/23 15:16 [facility] [id number]) Nutrition Malnutrition Evidence of Malnutrition Exists Yes [...] % (Auto) 54.5, Lymph % (Auto) 31.1, [place] % (Auto) 9.1, Eos % (Auto) 3.6, [...] 80 mg PO QHS Qty: 30 0RF sfqcvrav-kjk-AR-lycopen-lutein 1 EACH tablet 1 ea PO BID [...] Self Care Charges/Coding Visit Charges Inpatient E&M: 84766 Disch Hosp >30min 01/14/23 1343 <Electronically signed by Sixto Braswell DO> Cosigner Signature (if applicable): CC: Dr. Sixto Braswell DO; Dr. Clinton Fowler DO~ Signed [facility] Work Phone: Evaluation noteNo assessment information available [facility] Work Phone: Evaluation note* Diagnosis Onset Date Resolution Status AMS (altered mental status) acute Hypoglycemia acute Stroke-like symptoms acute Dementia chronic DM (diabetes mellitus), type 2 chronic [facility] Work Phone: Evaluation note* Diagnosis Onset Date Resolution Status Hypoglycemia resolved Stroke-like symptoms resolve d Loose stools chronic [facility] Work Phone: Evaluation note* Diagnosis Onset Date Resolution Status Hypoglycemia resolved Stroke-like symptoms resolve d Loose stools chronic Falls acute Hyperglycemia acute Mental status alteration acu te [facility] Work Phone: Evaluation note* Diagnosis Onset Date Resolution Status Hypoglycemia resolved Stroke-like symptoms resolve d Loose stools chronic Falls acute Hyperglycemia acute Mental status alteration acu te CVA (cerebral vascular accident) chronic [facility] Work Phone: Evaluation note* Diagnosis Onset Date Resolution Status Loose stools chronic Hyperglycemia resolved [facility] Work Phone: Evaluation note* Diagnosis Onset Date Resolution Status CVA (cerebral vascular accident) acute Hyperglycemia resolved Exocrine pancreatic insufficiency chronic Acute blood loss anemia acut e Alzheimer disease acute Anemia acute Bright red rectal bleeding a cute CVA (cerebral vascular accident) acute Delirium acute GI bleed acute Weakness acute Exocrine pancreatic insufficiency chronic [facility] Work Phone: Evaluation note* Diagnosis Onset Date Resolution Status Weakness acute Acute blood loss anemia reso lved Bright red rectal bleeding r esolved Delirium resolved GI bleed resolved [facility] Work Phone: Evaluation note* Diagnosis Onset Date Resolution Status Cough acute Viral upper respiratory illness acute Chronic anemia chronic Exocrine pancreatic insufficiency chronic GI bleed resolved [facility] Work Phone: Evaluation note* Diagnosis TOBY (obstructive sleep apnea)- Primary Obstructive sleep apnea (adult) (pediatric) PLMD (periodic limb movement disorder) Periodic limb movement disorder Dementia without behavioral disturbance (Multi) Hypersomnia Hypersomnia, unspecified documented in this encounter [facility] Work Phone: History and physical note Author Dr. Buckner [facility] September 16, 2022 8:11pm Note Date/Time September 16, 2022 6:43 pm [facility] Records Department [address] [place] [address] H&P Exam - Hospitalist 09/16/22 1839 MR#: [id number] Acct: [id number] Name: LIZA HANCOCK Rep #:[id number] : 1935 87 From: Estrella Buckner DO PCP: Dr. Clinton Fowler, DO Status:ADM IN Location: [facility] [id number] HPI - General General Date of Admission: 09/16/22 Date of Service: 09/16/22 Chief Complaint: MS Lynne HPI Narrative LIZA HANCOCK, is a 87 F who presented to the emergency department at [facility] with her on 09/16/2022 after she was [...] with no injuries. Both falls happened within [id number] period. She ambulates in the home by [...] this prohibited the from taking her home. [facility] History Alzheimer disease AMS (altered [...] #30 tabs 12/03/17 [Rx Last Taken 09/15/22] njnyiufk-fxo-nccau acid 0.4 mg-lycopene 300 mcg-lutein 250 mcg [...] PO QHS 06/14/22 [History Last Taken 09/15/22] mhzgaj-pjjqhnsw-yobbbaj 36,000-114,000-180,000 unit capsule,delay rel (Creon) See Rx [...] % (Auto) 57.8, Lymph % (Auto) 30.3, [place] % (Auto) 8.6, Eos % (Auto) 1.9, [...] Clarity Clear, Urine pH 5.0, Ur Specific Logan 1.015, Urine Protein Negative, Urine Glucose (UA) [...] on admission Charges/Coding Visit Charges Inpatient E&M: 23674 Init Hosp L3 09/16/222010 <Electronically signed by Estrella Buckner DO> Cosigner Signature (if applicable): CC: Dr. Estrella Buckner, ; Dr. Clinton Fowler DO~ Signed [facility] Work Phone: Reason for referral (narrative)No reason for referral [facility] Work Phone: Chief Complaint and Reason for Visit Chief Complaint Admit Date 6 Month f/u December 11, 2024 1:48p m GENERALIZED WEAKNESS February 22, 2025 2 :39pm Reason for Visit Admit Date Chronic anemia May 29th, 2025 1:48p m Exocrine pancreatic insufficiency December 112024 [...] Month f/u December 11, 2024 1:48p m Chief Complaint Admit Date 6 Month f/u December 11, 2024 1:48p m GENERALIZED WEAKNESS February 22, 2025 2 :39pm change mental status March 30 1:40am Family History No Family History Records Found Relationship Condition Age at Onset Recorded Date/T marshall mother Alzheimer's disease Unknown brother Alzheimer's disease Unknown aunt Alzheimer's disease Unknown father Cardiac disease Unknown Advance Directives No Advanced Directives Records Found Advance Directive Response Recorded Date/ Time Advance Directives No August 9:15pm Living Will No February 04, 2022 3:57pm Power of Laboratory Equipment Installer No February 04 3:57pm Advance Directive Response Recorded Date/ Time Advance Directives No August 8:15pm Living Will No June 15 1:18am Power of Laboratory Equipment Installer No June 15, 2022 1:18am Advance Directive Response Recorded Date/ Time Advance Directives No August 8:15pm Living Will No September 16, 2022 3:29pm Power of Laboratory Equipment Installer No September 16 3:29pm Advance Directive Response Recorded Date/ Time Advance Directives No August 8:15pm Living Will No September 16, 2022 8:19pm Power of Laboratory Equipment Installer No September 16 8:19pm Advance Directive Response Recorded Date/ Time Advance Directives No August 9:15pm Living Will No September 16, 2022 9:19pm Power of Laboratory Equipment Installer No September 16 9:19pm Advance Directive Response Recorded Date/ Time Advance Directives No August 9:15pm Living Will No January 12, 2023 4:07pm Power of Laboratory Equipment Installer No January 12 4:07pm Advance Directive Response Recorded Date/ Time Advance Directives No August 8:15pm Living Will No June 07, 2 023 11:53pm Power of Laboratory Equipment Installer No June 07, 2023 11:53pm Advance Directive Response Recorded Date/ Time Advance Directives No August 9:15pm Living Will No June 08, 2 023 12:53am Power of Laboratory Equipment Installer No June 08, 2023 12:53am Advance Directive Response Recorded Date/ Time Advance Directives No August 9:15pm Advance Directive Response Recorded Date/ Time Do you have a Healthcare Power of Laboratory Equipment Installer? No February 22, 2025 2:45pm Advance Directives No August 9:15pm Advance Directive Response Recorded Date/ Time Do you have a Healthcare Pow er of Laboratory Equipment Installer? No February 22, 2025 2:45pm Do you have a Healthcare Pow er of Laboratory Equipment Installer? Yes March 30, 2025 2:01am Name of Medical Power of Laboratory Equipment Installer mat--vanessa kramer March 30, 2025 2:01am Advance Directives No August 9:15pm Summary Purpose [...] DO Family Provider Active Dr. Clinton Fowler DO Primary Care Provider Active Team Status: Inactive Member Role Status Dates Dr. Clinton Fowler , DO Primary Care Provider, Referrin g Provider Active Dr. Hung Adames , DO Attending Provider Active Team Status: Active Member Role Status Dates Dr. Clinton Fowler DO Primary Care Provider Active Dr. Eduin [...] Fowler DO Primary Care Provider Active Dr. Isiah Winn , DO Emergency Provider Active Dr. Sixto Braswell DO Admit Provider, Attending Provid er Active Team Status: Inactive Member Role Status Dates Dr. Clinton Fowler DO Primary Care Prov ider, Attending Provider, Referring Provider Active Team Status: Active Member Role Status Dates Dr. Clinton Fowler DO Primary Care Provider Active Dr. Isiah [...] Provider, Referrin g Provider Active Inessa Hall REDUCER, REDUCER-C Attending Provider Active Team Status: Inactive Member Role Status Dates Dr. Clinton Fwoler DO Primary Care Provider Active Dr. Nikki Jacques MD Emergency Provider Active Team Status: Inactive Member Role Status Dates Dr. Clinton Fowler DO Primary Care Provider Active Dr. Nikki Jacques MD Attending Provider, Emergency Provider Active Team Status: Inactive Member Role Status Dates Dr. Clinton Fowler DO Primary Care Provider, Attendin g Provider Active Senior Contracts Manager Relationship Specialty Start Date End Date Clinton Fowler DO [address] [place] [id number] PCP - General Family Medicine 11/25/24 Team [...] February 22, 2025 End: February 22, 2025 Team Status: Inactive Member Role/Relationship Status Dates Dr. Clinton Fowler DO Primary Care Provider Active Start: February 22, 2025 End: February 22, 2025 Dr. Sixto Alvarez DO Attending Provider Active Start: February 22, 2025 End: February 22, 2025 Dr. Sixto Alvarez DO Referring Provider Active Start: February 22, 2025 End: February 22, 2025 Dr. Sixto Alvarez DO Emergency Provider Active Start: February 22, 2025 End: February 22, 2025 Team Status: Inactive Member Role/Relationship Status Dates Dr. Clinton Fowler DO Primary Care Provider Active Start: March 30, 2025 End: March 30, 2025 Dr. Quentin Oshea DO Emergency Provider Active Start: March 30, 2025 End: March 30, 2025 INFORMATION SOURCE (unrecogn ized section and content) DATE CREATED AUTHOR 01/28/2024 [facility] DATE CREATED AUTHOR AUTHOR'S ORGANIZ ATION 05/06/2025 [facility] DATE CREATED AUTHOR AUTHOR'S ORGANIZ ATION 05/16/2025 [facility] Reason for Visit (unrecogniz ed section [...] BE BASED ON THE PRIMARY CLINICAL RECORDS. [email or web address] provides no warranty or guarantee of the accuracy or completeness of information in this document.
--- NOTE | 2025-05-16 19:59 | EDS_ITS ---
HPI History of Present Illness Chief Complaint: Weakness Detail of Chief Complaint: Weakness/failure to thrive Onset/Context/Timing Onset: - (Patient admitted May 13. Discharged today. Detailed HPI narrative) Timing: Continuous and Waxes and wanes Quality: Unable to stand and walk or use roll aid Location: Driveway of residence Current Severity: Unable to determine patient with significant dementia Worsened by: Nothing progression of dementia Relieved by: Nothing Associated Symptoms Associated Symptoms: Nothing per Narrative Narrative: Patient was admitted on May 13. Dr. Juan Francisco Fournier's note was reviewed. Patient was admitted to the hospital. OT PT consult was obtained as well as case management. Recommendation was placement in nursing facility. states that they would be going to daughter's house who has a single level and hospital bed. She was discharged in the hospital this afternoon. They went on a ride which she has missed her . They got food through [employer] [address]- through. She stated she wanted to go to the [employer] . She apparently lived in a [place]. and patient went for drive. When they got home she would not get out of the car. He put things away. When he came out to get her she was not able to get out of car. He assisted. He placed her on the [employer]. She sat with no activity. She was not able to push the device. She then sat on the ground. She did not fall. Prior similar symptoms: Yes Recent Illness/[facility]: [facility] Medical History GERD (gastroesophageal reflux disease) TIA (transient ischemic attack) GI bleed Alzheimer disease Exocrine pancreatic insufficiency Falls Mental status alteration Loose stools AMS (altered mental status) History of Sjogren's disease RLS (restless legs syndrome) Varicose veins of leg with edema Bowel incontinence Chronic diarrhea Anemia due to stage 3 chronic kidney disease Noninfective gastroenteritis and colitis, unspecified Hearing loss, left Hearing loss, right Non-smoker CPAP (continuous positive airway pressure) dependence History of stroke Type 2 diabetes mellitus without complications Arthritis Dementia CVA (cerebral vascular accident) Nausea and vomiting in adult DM (diabetes mellitus), type 2 Home Medications ?Medication ?Instructions ?Recorded ?Last Taken ?Type omeprazole 40 mg capsule,delayed 40 mg PO DAILY GERD 0 01/06/14 01/11/23 History release cholecalciferol (vitamin D3) 25 1,000 unit PO DAILY messer pplement 08/28/16 01/11/23 History mcg (1,000 unit) capsule metformin 500 mg tablet 500 mg PO DAILY blood sugar 08/28/16 01/11/23 History cinnamon bark 500 mg capsule 1,000 mg PO DAILY supplem ent 11/30/17 01/11/23 History rvjlcqov-rdk-skpyw acid 0.4 1 ea PO BID supplement 01/11/23 History mg-lycopene 300 mcg-lutein 250 mcg tablet memantine 10 mg tablet 10 mg PO BID mental health 0 09/11/21 01/11/23 History ramipril 5 mg capsule 5 mg PO DAILY blood pressure 01/11/22 01/11/23 History modafinil 100 mg tablet 200 mg PO DAILY sleepiness 0 09/16/22 01/11/23 History aspirin 81 mg chewable tablet 81 mg PO BREAKFAST #30 t abs 09/20/22 01/11/23 Rx acetaminophen 500 mg tablet 500 mg PO BID 06/07/23 Unk nown History (Tylenol Extra Strength) iofbez-norxeckd-zhckkqr 3 cap PO .aqc #300 caps 04/09 Unknown Rx 36,000-114,000-180,000 unit capsule,delay rel (Creon) atorvastatin 40 mg tablet 80 mg PO DAILY 05/13/25 Unkn own History cyanocobalamin (B12)-cobamamide 1 dorota sublingual DAILY 05/13/25 Unknown History 5,000 mcg-100 mcg sublingual lozenge (B12) donepezil 10 mg tablet 10 mg PO QHS 05/13/25 Unknow n History ferrous gluconate 240 mg (27 mg 240 mg PO DAILY Unknown History iron) tablet (Ferate) glipizide 2.5 mg tablet 2.5 mg PO BID 05/13/25 Unkno wn History ropinirole 0.5 mg tablet 0.5 mg PO DAILY 05/13/25 Unk nown History Allergy/AdvReac Type Severity Reaction Status Date / Time pollen extracts Allergy Intermediate PT UNSURE Verified 05/13/25 12:59 OF REACTION Family History Mother Alzheimer disease Brother Alzheimer disease Aunt Alzheimer disease Father Heart disease Surgical History H/O lumpectomy H/O: hysterectomy History of tonsillectomy Social History household members: spouse Smoking Status: Never smoker alcohol intake: never substance use type: does not use ROS ROS ED Review of Systems ROS Unobtainable: due to mental status EXAM Physical Exam Const Vital Signs: 05/16/25 19:18 05/16/25 19:23 Temperature 98.1 F Temperature Source Oral Pulse Rate 76 Respiratory Rate 13 Respiratory Effort Normal Non-Labored Respiratory Pattern Normal Blood Pressure 118/62 Blood Pressure Mean 80 Pulse Ox 96 Oxygen Delivery Method Room Air Positive well nourished and well developed General Appearance ED: well developed, NAD and pallor HEENT Reports moist mucous membranes HEENT Narrative: Head is atraumatic and normocephalic. Ears normal. Nares patent. Eyes PERRL and EOMs intact bilaterally General Eye ED: Negative for pale conjunctiva Neck no lymphadenopathy and supple Resp normal respiratory effort and clear to auscultation bilaterally Cardio regular rate, regular rhythm, S1 normal heart sound, S2 normal heart sound and no murmurs GI normal to inspection, nondistended, normoactive bowel sounds, non-distended and no masses; Negative for hepatosplenomegaly Extremity Extremity Narrative: No discoloration. No wounds. General Extremety ED: Negative for tenderness Neuro No oriented x3 and CN's II-XII intact bilaterally Sensorium / Orientation: Negative for alert Psych Mood & Affect: depressed Skin no rashes or lesions noted and no wounds General Skin Exam: pallor MDM MDM MDM Narrative Medical decision making narrative: Case management and OT PT notes were reviewed. Patient did take a list of the [facility] facilities that were available if things did not work out at home. Recommendation by both PT/OT and case management was placement. As documented in the HPI narrative wanted to take her home and see if he is able to care for her at his daughter's home. Since he was unable to get her out of the car into the home she was brought back. Since she had blood work done this morning, they were not repeated. Will contact hospitalist for readmission and placement. Management Discussion w/another healthcare provider: Hospitalist (Spoke with Dr. Yaima Tobias. Admit to [facility].) Discharge Plan Dx/Rx/DC Orders Clinical Impression: Adult failure to thrive, Inability to walk, Debility, Dementia, HLD (hyperlipidemia), CKD (chronic kidney disease) stage 3, GFR 30-59 ml/min, Diab etic neuropathy, Sjogrens syndrome Disposition Disposition: Acute Care Hospital [facility]
--- NOTE | 2025-05-16 20:15 | CASEMGMT ---
Social Work Late note entry Date of referral: 05/16/25 Reason for referral: Discharge Planning Referred by: ED nurse Patient provided consent to social work visit. Patient's at bedside. Patient decided not to stay with her daughter after discharge there was furniture all in the room patient was supposed to be staying in so there wasn't enough room, plus there is a big dog in the home. Patient's daughter was also described as having her own conditions/limitations and wasn't going to be able to help patient even if patient was there. Patient's stated with help, he moved patient's bed to the first floor of their home and is in the process of getting a bed-side commode. ([facility]) although he has an old one patient can use for now. Patient was unable to stand to get into the house and froze. Patient does not have a wheelchair. There is 1 step leading into patient's home. Patient's stated he is able to borrow a wheelchair from patient's daughter if needed as she has a second one. Patient has a caregiver coming into the home every M-F from 9am-1:30pm to help patient with dressing/feeding/bathing. Patient's stated he will do whatever he has to to help support his however at minimum needs for his to be able to ambulate and transfer. Nikki Figueredo, ACCOUNTS PAYABLE ASSOCIATE, VOCATIONAL REHABILITATION SUPERVISOR
[2025-05-16 21:15] VITALS: BP 127/80; PULSE 71; RESP 16; O2SAT 96
--- NOTE | 2025-05-16 21:15 | HP.PCM.HOS_ITS ---
HPI - General General Date of Admission: 05/16/25 Date of Service: 05/16/25 Chief Complaint: Adult FTT. HPI Narrative The patient is an 89-year-old female with past medical history advanced dementia with unclear behavioral disturbance history, chronic anemia, diabetes mellitus type II, GERD, hypertension, hyperlipidemia, exocrine pancreatic insufficiency, Sjogren syndrome, restless leg syndrome, TOBY with chart documented CPAP usage, discharged earlier in the day on 05/16/2025 secondary to patient family preference to return to home for ongoing therapies in the home setting with also recently noted Klebsiella urinary tract infection previously that had completed antibiotic therapies who now re-presents to the [facility] ED on 05/16/2025 secondary to unfortunately upon return to home and attempted get into the house she was unable to even get out of the car with noting that her legs would just not work and she could not even push her device eventually lowering to the ground with no specific fall or trauma. Given her inability to even function the situation has been brought her back in for alf facility placement. [facility] Medical History GERD (gastroesophageal reflux disease) TIA (transient ischemic attack) GI bleed Alzheimer disease Exocrine pancreatic insufficiency Falls Mental status alteration Loose stools AMS (altered mental status) History of Sjogren's disease RLS (restless legs syndrome) Varicose veins of leg with edema Bowel incontinence Chronic diarrhea Anemia due to stage 3 chronic kidney disease Noninfective gastroenteritis and colitis, unspecified Hearing loss, left Hearing loss, right Non-smoker CPAP (continuous positive airway pressure) dependence History of stroke Type 2 diabetes mellitus without complications Arthritis Dementia CVA (cerebral vascular accident) Nausea and vomiting in adult DM (diabetes mellitus), type 2 Home Medications ?Medication ?Instructions ?Recorded ?Last Taken ?Type omeprazole 40 mg capsule,delayed 40 mg PO DAILY GERD 0 01/06/14 01/11/23 History release cholecalciferol (vitamin D3) 25 1,000 unit PO DAILY messer pplement 08/28/16 01/11/23 History mcg (1,000 unit) capsule metformin 500 mg tablet 500 mg PO DAILY blood sugar 08/28/16 01/11/23 History cinnamon bark 500 mg capsule 1,000 mg PO DAILY supplem ent 11/30/17 01/11/23 History gnwbjkit-uaf-ptomm acid 0.4 1 ea PO BID supplement 01/11/23 History mg-lycopene 300 mcg-lutein 250 mcg tablet memantine 10 mg tablet 10 mg PO BID mental health 0 09/11/21 01/11/23 History ramipril 5 mg capsule 5 mg PO DAILY blood pressure 01/11/22 01/11/23 History modafinil 100 mg tablet 200 mg PO DAILY sleepiness 0 09/16/22 01/11/23 History aspirin 81 mg chewable tablet 81 mg PO BREAKFAST #30 t abs 09/20/22 01/11/23 Rx acetaminophen 500 mg tablet 500 mg PO BID 06/07/23 Unk nown History (Tylenol Extra Strength) uqzgma-uyamamao-txuqmux 3 cap PO .aqc #300 caps 04/09 Unknown Rx 36,000-114,000-180,000 unit capsule,delay rel (Creon) atorvastatin 40 mg tablet 80 mg PO DAILY 05/13/25 Unkn own History cyanocobalamin (B12)-cobamamide 1 dorota sublingual DAILY 05/13/25 Unknown History 5,000 mcg-100 mcg sublingual lozenge (B12) donepezil 10 mg tablet 10 mg PO QHS 05/13/25 Unknow n History ferrous gluconate 240 mg (27 mg 240 mg PO DAILY Unknown History iron) tablet (Ferate) glipizide 2.5 mg tablet 2.5 mg PO BID 05/13/25 Unkno wn History ropinirole 0.5 mg tablet 0.5 mg PO DAILY 05/13/25 Unk nown History Allergy/AdvReac Type Severity Reaction Status Date / Time pollen extracts Allergy Intermediate PT UNSURE Verified 05/13/25 12:59 OF REACTION Family History Mother Alzheimer disease Brother Alzheimer disease Aunt Alzheimer disease Father Heart disease Surgical History H/O lumpectomy H/O: hysterectomy History of tonsillectomy Social History household members: spouse Smoking Status: Never smoker alcohol intake: never substance use type: does not use ROS Review of Systems ROS Unobtainable: due to mental condition Vital Signs Vital Signs Vital Signs: 05/16/25 19:18 05/16/25 19:23 Temperature 98.1 F Temperature Source Oral Pulse Rate 76 Respiratory Rate 13 Respiratory Effort Normal Non-Labored Respiratory Pattern Normal Blood Pressure 118/62 Blood Pressure Mean 80 Pulse Ox 96 Oxygen Delivery Method Room Air Weight Weight: 158 lb 15.253 oz Body Mass Index (BMI) 28.1 Physical Exam Narrative Physical Examination: General: Awake, alert, oriented to self, , cannot give exact recent history but does have significant advanced dementia, remains cooperative and follows some commands, laying in ED bed, no acute distress. Skin: Normal color, normal turgor, no icterus, no cyanosis except occasional stage ecchymoses, abrasion. HEENT: AT/NC, EOMI, PERRLA, MMM, no carotid bruits or JVD noted. Lungs: Mildly diminished, greater bases, appropriate effort, no rales, ronchi or wheezing. Heart: Regular rate and rhythm; no gallop, rub audible. Abdomen: Soft, overweight, NTTP, ND, mildly hyperactive BS, no appreciated HSM. Extremities: No cyanosis, no clubbing, mild distal not markedly pitting bilateral edema. Neurological: Awake, alert, oriented to self, , cannot give exact recent history but does have significant advanced dementia, remains cooperative and f ollows some commands, cognitive function decreased baseline secondary to advanced dementia, do suspect patient is currently baseline intact; pupils equally reactive to light and accommodation, cranial nerves grossly normal, moving all 4 extremities, no focal deficits, strength moderately to severely globally decreased. Psychiatric: Affect appears fatigued, flat, no acute evidence of depressive or anxiety feelings. Assessment & Plan Assessment/Plan (1) Adult failure to thrive: PLAN: Plan The patient is an 89-year-old female with past medical history advanced dementia with unclear behavioral disturbance history, TOBY with chart documented CPAP usage, chronic anemia, diabetes mellitus type II, GERD, hypertension, hyperlipidemia, exocrine pancreatic insufficiency, Sjogren syndrome, restless leg syndrome discharged earlier in the day on 05/16/2025 secondary to patient family preference to return to home for ongoing therapies in the home setting with also recently noted Klebsiella urinary tract infection previously that had completed antibiotic therapies who now re-presents to the [facility] ED on 05/16/2025 secondary to unfortunately upon return to home and attempted get into the house she was unable to even get out of the car with noting that her legs would just not work and she could not even push her device eventually lowering to the ground with no specific fall or trauma. #1. Adult failure to thrive, debility with recent inpatient admission and initi al plan for discharge to home however failed transition with return for planned alf facility needs: For patient safety will admit to medical surgical floor, maintain on fall precautions, continue PT/OT/case management consultation for at this time discharge [facility] given patient inability to safely function at home with upon even initial return to home with inability to get out of the car or even ambulate. #2. Advanced dementia of unclear type with unclear behavioral disturbance history: Complicates presentation, encourage continued follow-up as arranged outpatient, continue donepezil and memantine, PT/OT/case management consult for skilled for facility placement as noted. #3. Recently reported Klebsiella UTI, completed therapy: Per most recent admission patient with urine culture 05/05/2025 with greater than 100,000 colony forming units Klebsiella treated with antibiotics and completed antibiotic therapy without issue. Certainly contributed to initial decline. #4. Chronic normocytic anemia/iron deficiency anemia: Current representation with no labs obtained in the ED as obtained earlier in the day with 05/16/2020 5 AM hemoglobin 11.6, MCV 91.9, continue to trend as needed, continue iron supplementation. #5. Diabetes mellitus type II: Hold oral home regimen, maintain on ADA diet, accu checks w/ ISS. #6. Hypertension: Continue home regimen including ramipril with hold parameters as needed, PRN hydralazine. #7. Hyperlipidemia: Will continue patient on statin therapy. #8. Chronic exocrine pancreatic insufficiency: Will continue Creon with meals. #9. GERD: Will continue patient on PPI. #10. Restless leg syndrome: Will continue patient home Requip regimen. #11. TOBY: Will attempt CPAP nightly given its documented that she utilizes. If patient is agitated by this certainly can hold. #12. DVT prophylaxis: Heparin. #13. CODE STATUS: DNR-CCA, no intubation. Charges/Coding Visit Charges Inpatient E&M: 03643 Init Hosp L2
[2025-05-16 21:50] VITALS: BP 157/73; PULSE 72; RESP 16; TEMP 36.6; O2SAT 98
--- OUTSIDE RECORDS SUMMARY | 2025-05-16 21:51 | XMS RPT_ITS | CCD ---
Author Organization [facility] Care Team Providers Care Water Jet Loom Fixer Name Role Phone Dr. Clinton Fowler Primary Care Provider [phone] Dr. Eduin Blair Attending Provider Dr. Maura Lauren Emergency Provider Dr. Foreign Paredes Admit Provider Dr. Foreign Paredes Other Provider Dr. Isa Verma Attending Provider [phone] Isa Verma Other Provider Dr. Clinton Fowler Referring Provider [phone] Hung Adames Attending Provider [phone] Dr. Moncho Thomas Emergency Provider [phone] Estrella Buckner Admit Provider Dr. Estrella Buckner Other Provider Dr. Foreign Paredes Attending Provider [phone] Maria D Chawla Other Provider Dr. Gera Corbett Attending Provider Dr. Clinton Fowler Primary Care Provider [phone] Dr. Clinton Fowler Referring Provider Dr. Hung Adames Attending Provider [phone] Moncho Thomas Emergency Provider Dr. Estrella [...] Provider Dr. Clinton Fowler Referring Provider Rafael MEAT SOAKER, MEAT SOAKER-C Inessa Thomas Attending Provider Dr. Hung Adames Attending Provider LIBERTAD WHITTAKER Attending Unavailable LIBERTAD WHITTAKER Attending Unavailable Clinton Fowler DO Primary Care Provider Dr. Clinton Fowler DO Primary Care Provider Dr. Clinton Fowler DO Referring Provider Dr. Hung Adames DO Attending Provider Dr. Clinton Fowler DO Attending Provider [phone] Antonio BRAUN, Dr. Henson Referring Provider [phone] Antonio BRAUN, Dr. Henson Emergency Provider [phone] [...] Attending Unavailable Domo, Dereck Consulting Unavailable Davian MEAT SOAKER, Libertad S Attending Unavailab le Dany, Clinton [...] to substance 3 PT UNSURE OF REACTION [facility] (1 source) Pollen Drug allergy (disorder) 5 [facility] Repository Medications Current Medications Medication Drug [...] 1 capsule (1,000 Units) by mouth. Active bmdc-hykcq-BQX-xho-ukmruvr-n ea 100 mg-100 mcg- 100 mg-100 mg capsule (1 source) uyys-jesvv-IDK-g mh-oeflogw-jga 100 mg-100 mcg- 100 mg-100 mg capsule [...] hydrochloride 10 mg oral tablet (20 sources) I-gkysmx-C-aspart ate Receptor Antagonist Start: 09-11-2021 take 1 [...] MG PO DAILY September 11, 2021 12:00am Rcmzrion-Nus-Zc-Lycopen-Lute in (15 sources) Start: 12-03-2018 Oupytwup-Pik-Cw-Lycopen-Lute in Active 1 EACH PO TWICE A DAY December 02, 2018 11:00pm Start: 12-03-2018 Qjwbgeep-Gaa-S v-Zzdjdfn-Xhwykn Active 1 EACH PO TWICE A DAY December 03, 2018 12:00am Bpdsenrr-Uob-Qf-Lycopen-Lute in 1 EACH tablet (4 sources) Start: 12-03-2018 Ztkqxumb-Zjg-An-Lycopen-Lute in 1 EACH tablet Active 1 NMA PO TWICE A DAY December 03, 2018 12:00am supplement Start: 12-03-2018 Lylrczgs-Hkn-Z m-Mcdscez-Ovscsn 1 EACH tablet Active 1 NMA PO [...] On Hold: only take if needed amylase 791325 unt / lipase 36400 unt / protease [id number] unt delayed release oral capsule (20 sources) Start: 08-28-2022 End: 07-24-2024 Haszsv-Tnjdcoot-Kh ylase (Creon) 36,000-114,000- 180,000 unit capsule,delayed release(DR/EC) [...] 12:00am Start: 06-08-2019 take 1 tablet by [facility] twice daily Vitamin C Active 1 TABLET [...] (2 mg) by mouth once daily. Active Ogrzri-Fcqqspsi-Fkywiid (Bib pep) 40,000-126,000- 168,000 unit capsule,delayed release(DR/EC) (17 sources) Start: 08-23-2022 End: 08-28-2022 Kpluva-Xjaskjvo-Iultmve (Zenpep) 40,000-126,000- 168,000 unit capsule,delayed release(DR/EC) Discontinued 0 PO .COMPLEX 320 August 23, 2022 1:00am August 28, 2022 5:28pm take 1-2 with snacks and 2-3 with meals Start: 08-23-2022 End: 08-28-2022 Lvemnf-Yeseebds-Uipdsjw (Bib pep) 40,000-126,000- 168,000 unit capsule,delayed release(DR/EC) Discontinued 0 PO .COMPLEX 320 August 23, 2022 1:00am August 28, 2022 5:28pm take 1-2 with snacks and 2-3 with meals Start: 08-23-2022 End: 08-28-2022 Bclnhi-Kmewexzm-Ydjbezj (Bib pep) 40,000-126,000- 168,000 unit capsule,delayed release(DR/EC) [...] )on 05-16-2025 BUN/CRE 19.4 RATIO Normal 10-20 [facility] Comment on above: Performed By: #### L 400.0001 #### [facility] [address] [place], [address] Calcium [Mass/Vol] 9.7 mg/dL Normal 7.6-11.0 [facility] Comment on above: Performed By: #### L 400.0001 #### [facility] [address] [place], [address] Chloride [Moles/Vol] 100 mmol/L Normal 98-108 [facility] Comment on above: Performed By: #### L 400.0001 #### [facility] [address] [place], [address] CO2 [Moles/Vol] 22.4 mmol/L Normal 21.0-32.0 [facility] Comment on above: Performed By: #### L 400.0001 #### [facility] [address] [place], [address] Creatinine [Mass/Vol] 1.11 mg/dL Normal 0.70-1.20 [facility] Comment on above: Performed By: #### L 400.0001 #### [facility] [address] [place], [address] ECRCL 33.13 ml/min Low 50-250 [facility] Comment on above: Performed By: #### L 400.0001 #### [facility] [address] [place], [address] GAP 11 Normal 5-15 [facility] Comment on above: Performed By: #### L 400.0001 #### [facility] [address] [place], [address] GFR/1.73 sq M.predicted among non-blacks MDRD (S/P/Bld) [Vol rate/Area] 48 mL/min/{1.73_m2} Low >60 [facility] Comment on above: Result Comment: mL/m in/1.73m2 CKD-EPI Creatinine Equation (2020) Performed By: #### L 400.0001 #### [facility] [address] [place], [address] Glucose [Mass/Vol] 136 mg/dL High 70-99 [facility] Comment on above: Performed By: #### L 400.0001 #### [facility] [address] [place], [address] Potassium [Moles/Vol] 4.3 mmol/L Normal 3.3-5.1 [facility] Comment on above: Performed By: #### L 400.0001 #### [facility] [address] [place], [address] Sodium [Moles/Vol] 133 mmol/L Normal 133-145 [facility] Comment on above: Performed By: #### L 400.0001 #### [facility] [address] [place], [address] Urea nitrogen [Mass/Vol] 22 mg/dL High 4-19 [facility] Comment on above: Performed By: #### L 400.0001 #### [facility] [address] [place], [address] Bedside Glucoseon 05-16-2025 FINGERSTICK GLU 181 mg/dL High 74-106 [facility] Comment on above: Result Comment: IRENE GEMENT OF PATIENT CARE PER NURSING PROTOCOL Performed By: #### L 501.080 #### [facility] [address] [place], [address] FINGERSTICK GLU 180 mg/dL High 74-106 [facility] Comment on above: Result Comment: IRENE GEMENT OF PATIENT CARE PER NURSING PROTOCOL Performed By: #### L 501.080 ####[facility] [address] [place], [address] FINGERSTICK GLU 143 mg/dL High 74-106 [facility] Comment on above: Result Comment: IRENE GEMENT OF PATIENT CARE PER NURSING PROTOCOL Performed By: #### L 501.4021, M200.1000 #### [facility] [address] [place], [address] CBC W/Diff, Automatedon 11-0 Absolute Lymph 2.39 X10 3/uL Normal 0.83-4.51 [facility] Comment on above: Performed By: #### L 400.0001 #### [facility] [address] [place], [address] Absolute Neut 3.4 X10 3/uL Normal 2.0-7.7 [facility] Comment on above: Performed By: #### L 400.0001 #### [facility] [address] [place], [address] Basophils/100 WBC (Bld) 1.3 % High 0-1 [facility] Comment on above: Performed By: #### L 400.0001 #### [facility] [address] [place], [address] Eosinophils/100 WBC (Bld) 2.9 % Normal 0-5 [facility] Comment on above: Performed By: #### L 400.0001 #### [facility] [address] [place], [address] Erythrocyte distribution width (RBC) [Ratio] 12.4 % Normal 11.6-14.6 [facility] Comment on above: Performed By: #### L 400.0001 #### [facility] [address] [place], [address] Hematocrit (Bld) [Volume fraction] 34.1 % Low 37-47 [facility] Comment on above: Performed By: #### L 400.0001 #### [facility] [address] [place], [address] Hemoglobin (Bld) [Mass/Vol] 11.6 g/dL Low 12.0-15. 0 [facility] Comment on above: Performed By: #### L 400.0001 #### [facility] [address] [place], [address] IG% 0.900 Normal 0.0-0.9 [facility] Comment on above: Result Comment: IG% - Immature Granulocytes (promyelocytes, myelocytes and metamyelocytes) > 1% indicates that a LEFT SHIFT is Present. Performed By: #### L 400.0001 #### [facility] [address] [place], [address] Lymphocytes/100 WBC (Bld) 34.9 % Normal 19-41 [facility] Comment on above: Performed By: #### L 400.0001 #### [facility] [address] [place], [address] MCH (RBC) [Entitic mass] 31.3 pg Normal 27.0-32.0 [facility] Comment on above: Performed By: #### L 400.0001 #### [facility] [address] [place], [address] MCHC (RBC) [Mass/Vol] 34.0 g/dL Normal 32-36 [facility] Comment on above: Performed By: #### L 400.0001 #### [facility] [address] [place], [address] MCV (RBC) [Entitic vol] 91.9 fL Normal 81-99 [facility] Comment on above: Performed By: #### L 400.0001 #### [facility] [address] [place], [address] Monocytes/100 WBC (Bld) 9.9 % Normal 0-10 [facility] Comment on above: Performed By: #### L 400.0001 #### [facility] [address] [place], [address] Neutrophils/100 WBC (Bld) 50.1 % Normal 47-70 [facility] Comment on above: Performed By: #### L 400.0001 #### [facility] [address] [place], [address] Nucleated RBC (Bld) [#/Vol] 0 10*3/uL Normal 0-5 [facility] Comment on above: Performed By: #### L 400.0001 #### [facility] [address] [place], [address] Platelet mean volume (Bld) [Entitic vol] 9.7 fL Normal 6.2-12.0 [facility] Comment on above: Performed By: #### L 400.0001 #### [facility] [address] [place], [address] Platelets (Bld) [#/Vol] 172 10*3/uL Normal 150-450 [facility] Comment on above: Performed By: #### L 400.0001 #### [facility] [address] [place], [address] RBC (Bld) [#/Vol] 3.71 10*6/uL Low 4.2-5.4 [facility] Comment on above: Performed By: #### L 400.0001 #### [facility] [address] [place], [address] RDW SD 41.5 fl Normal 35.1-43.9 [facility] Comment on above: Performed By: #### L 400.0001 #### [facility] [address] [place], [address] WBC (Bld) [#/Vol] 6.8 10*3/uL Normal 4.4-11.0 [facility] Comment on above: Performed By: #### L 400.0001 #### [facility] [address] [place], [address] Discharge Instructionon 11-0 Discharge Instruction [facility] Medical Records Department [address] [place] [address] Instructions for Home/Discharge Instructions 05/16/25 1046 MR#: [id number] Acct: [id number] Name: HANCOCKLIZA J Rep #: [id number] : 1935 89 From: Dereck Oliveros MD [...] 500 MG capsule 1,000 mg PO DAILY tctarfxk-dki-RX-lycop en-lutein 1 EACH tablet 1 ea PO [...] PO DAILY Referrals / Follow Up: Clinton Fwoler DO [Primary Care Provider, Family Practice] Lenny Gong DO [Med Staff - Sheep Sticker, Psychiatry] - Within 1 Month Referral Note: dementia, psychosis? Disposition Disposition (needs filled in before D/C Order can be placed): Home, Self Care 05/16/25 1405 Dereck Oliveros MD CC: Dr. Louis Stoddard, DO; Dr. Santosh Hicks MD; Dr. Clinton Fowler DO Signed Normal [facility] Bedside Glucoseon 05-15-2025 FINGERSTICK GLU 146 mg/dL High 74-106 [facility] Comment on above: Result Comment: IRENE GEMENT OF PATIENT CARE PER NURSING PROTOCOL Performed By: #### L 501.4021, M200.1000 #### [facility] [address] [place], [address] FINGERSTICK GLU 212 mg/dL High 74-106 [facility] Comment on above: Result Comment: IRENE GEMENT OF PATIENT CARE PER NURSING PROTOCOL Performed By: #### L 501.080 #### [facility] [address] [place], [address] FINGERSTICK GLU 213 mg/dL High 74-106 [facility] Comment on above: Result Comment: IRENE GEMENT OF PATIENT CARE PER NURSING PROTOCOL Performed By: #### L 400.0001 #### [facility] [address] [place], [address] FINGERSTICK GLU 121 mg/dL High 74-106 [facility] Comment on above: Result Comment: IRENE GEMENT OF PATIENT CARE PER NURSING PROTOCOL Performed By: #### L 501.4021, M200.1000 #### [facility] [address] [place], [address] Culture, Blood (WB)on 2024 CUB Blood cultures x2, from two different sites No growth in 48 hours. Normal [facility] Comment on above: Performed By: #### L 501.4021, M200.1000 #### [facility] [address] [place], [address] Performed By: #### M 200.1000 ####[facility] [address] [place], [address] Basic Metabolic Profile (BMP )on 05-14-2025 BUN/CRE 15.3 RATIO Normal 10-20 [facility] Comment on above: Performed By: #### L 500.2500, L100.0500 ####[facility] [address] [place], [address] Calcium [Mass/Vol] 9.1 mg/dL Normal 7.6-11.0 [facility] Comment on above: Performed By: #### L 500.2500, L100.0500 ####[facility] [address] [place], [address] Chloride [Moles/Vol] 104 mmol/L Normal 98-108 [facility] Comment on above: Performed By: #### L 500.2500, L100.0500 ####[facility] [address] [place], [address] CO2 [Moles/Vol] 22.7 mmol/L Normal 21.0-32.0 [facility] Comment on above: Performed By: #### L 500.2500, L100.0500 ####[facility] [address] [place], [address] Creatinine [Mass/Vol] 1.30 mg/dL High 0.70-1.20 [facility] Comment on above: Performed By: #### L 500.2500, L100.0500 ####[facility] [address] [place], [address] ECRCL 28.29 ml/min Low 50-250 [facility] Comment on above: Performed By: #### L 500.2500, L100.0500 ####[facility] [address] [place], [address] GAP 8 Normal 5-15 [facility] Comment on above: Performed By: #### L 500.2500, L100.0500 ####[facility] [address] [place], [address] GFR/1.73 sq M.predicted among non-blacks MDRD (S/P/Bld) [Vol rate/Area] 39 mL/min/{1.73_m2} Low >60 [facility] Comment on above: Result Comment: mL/m in/1.73m2 CKD-EPI Creatinine Equation (2020) Performed By: #### L 500.2500, L100.0500 ####[facility] [address] [place], [address] Glucose [Mass/Vol] 103 mg/dL High 70-99 [facility] Comment on above: Performed By: #### L 500.2500, L100.0500 ####[facility] [address] [place], [address] Potassium [Moles/Vol] 5.1 mmol/L Normal 3.3-5.1 [facility] Comment on above: Result Comment: Hemo lysis present, Results??could be affected. ?? Performed By: #### L 500.2500, L100.0500 ####[facility] [address] [place], [address] Sodium [Moles/Vol] 134 mmol/L Normal 133-145 [facility] Comment on above: Performed By: #### L 500.2500, L100.0500 ####[facility] [address] [place], [address] Urea nitrogen [Mass/Vol] 20 mg/dL High 4-19 [facility] Comment on above: Performed By: #### L 500.2500, L100.0500 ####[facility] [address] [place], [address] Bedside Glucoseon 05-14-2025 FINGERSTICK GLU 165 mg/dL High 74-106 [facility] Comment on above: Result Comment: IRENE PANDEY OF PATIENT CARE PER NURSING PROTOCOL Performed By: #### L 501.4021, M200.1000 #### [facility] [address] [place], [address] FINGERSTICK GLU 147 mg/dL High 74-106 [facility] Comment on above: Result Comment: IRENE GEMENT OF PATIENT CARE PER NURSING PROTOCOL Performed By: #### L 501.080 ####[facility] [address] [place], [address] FINGERSTICK GLU 107 mg/dL High 74-106 [facility] Comment on above: Result Comment: IRENE GEMENT OF PATIENT CARE PER NURSING PROTOCOL Performed By: #### L 501.4021, M200.1000 #### [facility] [address] [place], [address] FINGERSTICK GLU 90 mg/dL Normal 74-106 [facility] Comment on above: Result Comment: IRENE GEMENT OF PATIENT CARE PER NURSING PROTOCOL Performed By: #### L 501.4021, M200.1000 #### [facility] [address] [place], [address] CBC-Complete Blood Cnt No Di ffon 05-14-2025 Erythrocyte distribution width (RBC) [Ratio] 12.8 % Normal 11.6-14.6 [facility] Comment on above: Performed By: #### L 500.2500, L100.0500 ####[facility] [address] [place], [address] Hematocrit (Bld) [Volume fraction] 30.6 % Low 37-47 [facility] Comment on above: Performed By: #### L 500.2500, L100.0500 ####[facility] [address] [place], [address] Hemoglobin (Bld) [Mass/Vol] 10.2 g/dL Low 12.0-15. 0 [facility] Comment on above: Performed By: #### L 500.2500, L100.0500 ####[facility] [address] [place], [address] MCH (RBC) [Entitic mass] 31.5 pg Normal 27.0-32.0 [facility] Comment on above: Performed By: #### L 500.2500, L100.0500 ####[facility] [address] [place], [address] MCHC (RBC) [Mass/Vol] 33.3 g/dL Normal 32-36 [facility] Comment on above: Performed By: #### L 500.2500, L100.0500 ####[facility] [address] [place], [address] MCV (RBC) [Entitic vol] 94.4 fL Normal 81-99 [facility] Comment on above: Performed By: #### L 500.2500, L100.0500 ####[facility] [address] [place], [address] Platelet mean volume (Bld) [Entitic vol] 10.7 fL Normal 6.2-12.0 [facility] Comment on above: Performed By: #### L 500.2500, L100.0500 ####[facility] [address] [place], [address] Platelets (Bld) [#/Vol] 166 10*3/uL Normal 150-450 [facility] Comment on above: Performed By: #### L 500.2500, L100.0500 ####[facility] [address] [place], [address] RBC (Bld) [#/Vol] 3.24 10*6/uL Low 4.2-5.4 [facility] Comment on above: Performed By: #### L 500.2500, L100.0500 ####[facility] [address] [place], [address] RDW SD 44.2 fl High 35.1-43.9 [facility] Comment on above: Performed By: #### L 500.2500, L100.0500 ####[facility] [address] [place], [address] WBC (Bld) [#/Vol] 6.3 10*3/uL Normal 4.4-11.0 [facility] Comment on above: Performed By: #### L 500.2500, L100.0500 ####[facility] [address] [place], [address] 12 Lead EKGon 05-13-2025 12 Lead EKG [facility] Cardiovascular Services [address] [place] [address] 12 Lead EKG 05/13/25 1334 MR#: [id number] Acct: [id number] Name: LIZA HANCOCK Rep #: [id number] : 1935 89 From: Gera Corbett MD Attending Dr: Dr. Dereck Oliveros MD Status: ADM TARA Ordering Dr: Nikita Alvarado MD Date: 05/13/25 Location: [facility] Sex: F C Admitted: 05/13/25 Test Reason [...] ECG Confirmed by ADAIR CANTOR, GERA ([id number]), communications editor JUDD UMANA ([id number]) on 05/15/2025 9:59:12 AM Referred By: [place] Confirmed By: GERA CORBETT MD 05/15/25 0959 Date Gera Corbett MD CC: Dr. Nikita Alvarado MD; Dr. Clinton Fowler DO; Dr. Dereck Oliveros MD Signed Normal [facility] Bedside Glucoseon 05-13-2025 FINGERSTICK GLU 118 mg/dL High 74-106 [facility] Comment on above: Result Comment: IRENE PANDEY OF PATIENT CARE PER NURSING PROTOCOL Performed By: #### L 501.4021, M200.1000 #### [facility] [address] [place], [address] CBC W/Diff, Automatedon 04-16 Absolute Lymph 1.80 X10 3/uL Normal 0.83-4.51 [facility] Comment on above: Performed By: #### L 501.4021, M200.1000 #### [facility] [address] [place], [address] Absolute Neut 4.6 X10 3/uL Normal 2.0-7.7 [facility] Comment on above: Performed By: #### L 501.4021, M200.1000 #### [facility] [address] [place], [address] Basophils/100 WBC (Bld) 1.5 % High 0-1 [facility] Comment on above: Performed By: #### L 501.4021, M200.1000 #### [facility] [address] [place], [address] Eosinophils/100 WBC (Bld) 2.8 % Normal 0-5 [facility] Comment on above: Performed By: #### L 501.4021, M200.1000 #### [facility] [address] [place], [address] Erythrocyte distribution width (RBC) [Ratio] 12.8 % Normal 11.6-14.6 [facility] Comment on above: Performed By: #### L 501.4021, M200.1000 #### [facility] [address] [place], [address] Hematocrit (Bld) [Volume fraction] 32.5 % Low 37-47 [facility] Comment on above: Performed By: #### L 501.4021, M200.1000 #### [facility] [address] [place], [address] Hemoglobin (Bld) [Mass/Vol] 10.8 g/dL Low 12.0-15. 0 [facility] Comment on above: Performed By: #### L 501.4021, M200.1000 #### [facility] [address] [place], [address] IG% 0.700 Normal 0.0-0.9 [facility] Comment on above: Result Comment: IG% - Immature Granulocytes (promyelocytes, myelocytes and metamyelocytes) > 1% indicates that a LEFT SHIFT is Present. Performed By: #### L 501.4021, M200.1000 #### [facility] [address] [place], [address] Lymphocytes/100 WBC (Bld) 24.0 % Normal 19-41 [facility] Comment on above: Performed By: #### L 501.4021, M200.1000 #### [facility] [address] [place], [address] MCH (RBC) [Entitic mass] 31.7 pg Normal 27.0-32.0 [facility] Comment on above: Performed By: #### L 501.4021, M200.1000 #### [facility] [address] [place], [address] MCHC (RBC) [Mass/Vol] 33.2 g/dL Normal 32-36 [facility] Comment on above: Performed By: #### L 501.4021, M200.1000 #### [facility] [address] [place], [address] MCV (RBC) [Entitic vol] 95.3 fL Normal 81-99 [facility] Comment on above: Performed By: #### L 501.4021, M200.1000 #### [facility] [address] [place], [address] Monocytes/100 WBC (Bld) 9.5 % Normal 0-10 [facility] Comment on above: Performed By: #### L 501.4021, M200.1000 #### [facility] [address] [place], [address] Neutrophils/100 WBC (Bld) 61.5 % Normal 47-70 [facility] Comment on above: Performed By: #### L 501.4021, M200.1000 #### [facility] [address] [place], [address] Nucleated RBC (Bld) [#/Vol] 0 10*3/uL Normal 0-5 [facility] Comment on above: Performed By: #### L 501.4021, M200.1000 #### [facility] [address] [place], [address] Platelet mean volume (Bld) [Entitic vol] 10.4 fL Normal 6.2-12.0 [facility] Comment on above: Performed By: #### L 501.4021, M200.1000 #### [facility] Laboratory [address] [place], [address] Platelets (Bld) [#/Vol] 181 10*3/uL Normal 150-450 [facility] Comment on above: Performed By: #### L 501.4021, M200.1000 #### [facility] Laboratory [address] [place], [address] RBC (Bld) [#/Vol] 3.41 10*6/uL Low 4.2-5.4 [facility] Comment on above: Performed By: #### L 501.4021, M200.1000 #### [facility] Laboratory [address] [place], [address] RDW SD 45.0 fl High 35.1-43.9 [facility] Comment on above: Performed By: #### L 501.4021, M200.1000 #### [facility] Laboratory [address] [place], [address] WBC (Bld) [#/Vol] 7.5 10*3/uL Normal 4.4-11.0 [facility] Comment on above: Performed By: #### L 501.4021, M200.1000 #### [facility] Laboratory [address] [place], [address] Chest 1 View (Portable)on Chest 1 View (Portable) [facility] Imaging Services [address] [place] [address] Chest 1 View (Portable) MR#: [id number] Acct: [id number] Name: LIZA HANCOCK Rep #: [id number] : 1935 F 89 From: Alex ramsey MD PCP: Dr. Clinton Fowler DO Status: REG ER Study: Chest 1 View (Portable) Date of Exam: 05/13/25 Exam# [id number] Ordering Dr: Nikita Alvarado MD PROCEDURE: CHEST [...] Calcified right infrahilar lymph node. Reading Location: [id number] CC: Dr. Nikita Alvarado MD; Dr. Clinton Fowler DO Shoe Laster: Signed Normal [facility] Comprehensive Metabolic Prof ilon 05-13-2025 Albumin [Mass/Vol] 3.6 g/dL Normal 3.4-4.8 [facility] Comment on above: Performed By: #### L 501.4021, M200.1000 #### [facility] Laboratory [address] [place], [address] Albumin/Globulin [Mass ratio] 1.4 {ratio} Normal 0.9-2.4 [facility] Comment on above: Performed By: #### L 501.4021, M200.1000 #### [facility] Laboratory [address] [place], [address] ALK PHOS 75 U/L Normal 35-104 [facility] Comment on above: Performed By: #### L 501.4021, M200.1000 #### [facility] Laboratory [address] [place], [address] ALT [Catalytic activity/Vol] 20 U/L Normal <=34 [facility] Comment on above: Performed By: #### L 501.4021, M200.1000 #### [facility] Laboratory [address] [place], [address] AST [Catalytic activity/Vol] 25 U/L Normal <=31 [facility] Comment on above: Performed By: #### L 501.4021, M200.1000 #### [facility] Laboratory [address] [place], [address] Bilirubin [Mass/Vol] 0.20 mg/dL Normal 0.00-1.30 [facility] Comment on above: Performed By: #### L 501.4021, M200.1000 #### [facility] Laboratory [address] [place], [address] BUN/CRE 16.1 RATIO Normal 10-20 [facility] Comment on above: Performed By: #### L 501.4021, M200.1000 #### [facility] Laboratory [address] [place], [address] Calcium [Mass/Vol] 9.5 mg/dL Normal 7.6-11.0 [facility] Comment on above: Performed By: #### L 501.4021, M200.1000 #### [facility] Laboratory [address] [place], [address] Chloride [Moles/Vol] 103 mmol/L Normal 98-108 [facility] Comment on above: Performed By: #### L 501.4021, M200.1000 #### [facility] Laboratory [address] [place], [address] CO2 [Moles/Vol] 23.5 mmol/L Normal 21.0-32.0 [facility] Comment on above: Performed By: #### L 501.4021, M200.1000 #### [facility] Laboratory [address] [place], [address] Creatinine [Mass/Vol] 1.27 mg/dL High 0.70-1.20 [facility] Comment on above: Performed By: #### L 501.4021, M200.1000 #### [facility] Laboratory [address] [place], [address] ECRCL 29.64 ml/min Low 50-250 [facility] Comment on above: Performed By: #### L 501.4021, M200.1000 #### [facility] Laboratory [address] [place], [address] GAP 8 Normal 5-15 [facility] Comment on above: Performed By: #### L 501.4021, M200.1000 #### [facility] Laboratory [address] [place], [address] GFR/1.73 sq M.predicted among non-blacks MDRD (S/P/Bld) [Vol rate/Area] 40 mL/min/{1.73_m2} Low >60 [facility] Comment on above: Result Comment: mL/m in/1.73m2 CKD-EPI Creatinine Equation (2020) Performed By: #### L 501.4021, M200.1000 #### [facility] [address] [place], [address] Globulin (S) [Mass/Vol] 2.5 g/dL Normal 2.2-4.2 [facility] Comment on above: Performed By: #### L 501.4021, M200.1000 #### [facility] [address] [place], [address] Glucose [Mass/Vol] 130 mg/dL High 70-99 [facility] Comment on above: Performed By: #### L 501.4021, M200.1000 #### [facility] [address] [place], [address] Potassium [Moles/Vol] 5.0 mmol/L Normal 3.3-5.1 [facility] Comment on above: Performed By: #### L 501.4021, M200.1000 #### [facility] [address] [place], [address] Sodium [Moles/Vol] 134 mmol/L Normal 133-145 [facility] Comment on above: Performed By: #### L 501.4021, M200.1000 #### [facility] Laboratory [address] [place], [address] T PROT 6.1 g/dL Normal 5.9-8.4 [facility] Comment on above: Performed By: #### L 501.4021, M200.1000 #### [facility] Laboratory [address] [place], [address] Urea nitrogen [Mass/Vol] 21 mg/dL High 4-19 [facility] Comment on above: Performed By: #### L 501.4021, M200.1000 #### [facility] Laboratory [address] [place], [address] Emergency Department Summary on 05-13-2025 Emergency Department Summary [facility] Medical Records Department [address] [place] [address] Emergency Department Summary 05/13/25 MR#: [id number] Acct: [id number] Name: LIZA HANCOCK Rep #: [id number] : 1935 89 From: Nikita Alvarado MD [...] Caregiver notes a possible missed antibiotic dose. [facility] Medical History GERD (gastroesophageal reflux disease) [...] 1,000 mg PO DAILY supplement 11/3001/11/23 History iwmexmpp-htg-phgdf acid 0.4 1 ea PO BID supplement [...] 06/07/23 Unknown His tory (Tylenol Extra Strength) oifqvw-pqyoaepb-kgmld se 3 cap PO .aqc #300 caps [...] History of tonsillectomy Social History ... Normal [facility] H AND P Exam - Hospitaliston 05-13-2025 H&P Exam - Hospitalist [facility] Medical Records Department [address] [place] [address] H P Exam - Hospitalist 05/13/25 1558 MR#: [id number] Acct: [id number] Name: LIZA HANCOCK Rep #: [id number] : 1935 89 From: Louis Stoddard DO PCP: Dr. Clinton Fowler, DO Status:ADM TARA Location: [facility] [id number] HPI - General General Date of Admission: 05/13/25 Date of Service: 05/13/25 Chief Complaint: Weakness HPI Narrative LIZA HANCOCK, is a 89 F who presented to [facility] ED on 05/13/2025 with worsening weakness. Medical [...] possible. Will be admitted for further management. [facility] Medical History GERD (gastroesophageal reflux disease) TIA [...] 1,000 mg PO DAILY supplement 11/3001/11/23 History hnifjreb-gax-acpsg acid 0.4 1 ea PO BID supplement [...] 06/07/23 Unknown His tory (Tylenol Extra Strength) pqmvbj-rsxcptiw-pqtde se 3 cap PO .aqc #300 caps [...] nitrofurantoin macrocryst (more content not included)... Normal [facility] Hemoglobin A1con 05-13-2025 HbA1c (Bld) [Mass fraction] 6.5 % High <=5.6 [facility] Comment on above: Order Comment: Comme nts: ok to add on Result Comment: Norm al < 5.7 % Prediabetic 5.7 - 6.4 % Diabetic >or= 6.5 % Please note range changes. Performed By: #### L 501.4021, M200.1000 #### [facility] Laboratory [address] [place], [address] L501.4021on 05-13-2025 Trop T High Sen 27 ng/L High <=14 [facility] Comment on above: Performed By: #### L 501.4021, M200.1000 #### [facility] Laboratory [address] [place], [address] Lactic Acidon 05-13-2025 Lactate [Moles/Vol] 1.6 mmol/L Normal 0.0-2.0 [facility] Comment on above: Order Comment: Y Performed By: #### L 501.4021, M200.1000 #### [facility] Laboratory [address] [place], [address] Troponin T HS 2 HRon 025 Trop T High Sen 28 ng/L High <=14 [facility] Comment on above: Performed By: #### L 501.4021, M200.1000 #### [facility] Laboratory [address] [place], [address] Troponin T HS 4 HRon 025 Trop T High Sen 29 ng/L High <=14 [facility] Comment on above: Performed By: #### L 499.0043 ####[facility] [address] [place], [address] Urinalysis, Completeon 05-13 EPI,TRANSITION 0-5 SEEN Normal 0-5 [facility] Comment on above: Order Comment: CLEAN CATCH Performed By: #### L 501.4021, M200.1000 #### [facility] Laboratory [address] [place], [address] RBC 0-5 SEEN Normal 0-5 [facility] Comment on above: Order Comment: CLEAN CATCH Performed By: #### L 501.4021, M200.1000 #### [facility] Laboratory [address] [place], [address] WBC 0-5 SEEN Normal 0-5 [facility] Comment on above: Order Comment: CLEAN CATCH Performed By: #### L 501.4021, M200.1000 #### [facility] Laboratory [address] [place], [address] BACTERIA 0 SEEN Normal None Seen [facility] Comment on above: Order Comment: CLEAN CATCH Performed By: #### L 501.4021, M200.1000 #### [facility] Laboratory [address] [place], [address] EPI,SQUAMOUS 0 SEEN Normal 5-10 [facility] Comment on above: Order Comment: CLEAN CATCH Performed By: #### L 501.4021, M200.1000 #### [facility] Laboratory [address] [place], [address] Mucus Ql (Urine sed) 0 SEEN Normal [facility] Comment on above: Order Comment: CLEAN CATCH Performed By: #### L 501.4021, M200.1000 #### [facility] Laboratory [address] [place], [address] Urine Cultureon 05-07-2025 URC Klebsiella pneumonia e sp pneum Latexo Count >100,000 Klebsiella pneumoniae sp pneum: REACTION [...] TMP SMX Islt JIMI <=20 S Normal [facility] Comment on above: Performed By: #### L 501.4021, M200.1000 #### [facility] Laboratory [address] [place], [place], [address] 12 Lead EKGon 05-05-2025 12 Lead EKG [facility] Cardiovascular Services [address] [place] [address] 12 Lead EKG 05/05/25 1147 MR#: [id number] Acct: [id number] Name: LIZA HANCOCK Rep #: [id number] : 1935 89 From: Gerald Hagan MD [...] Borderline ECG Confirmed by Gerald Hagan ([id number]), communications editor WESLEY JOHN ([id number]) on 05/06/2025 1:41:34 PM Referred By: Confirmed By: Gerald Hagan 05/06/25 1341 Date Gerald Hagan MD CC: Dr. Alex Saha MD; Dr. Clinton Fowler DO Signed Normal [facility] Brain/Head without Contrasto n 05-05-2025 Brain/Head without Contrast [facility] Imaging Services [address] [place] [address] Brain/Head without Contrast MR#: [id number] Acct: [id number] Name: LIZA HANCOCK Rep #: [id number] : 1935 F 89 From: Froilan Dillon MD PCP: Dr. Clinton Fowler DO Status: REG ER Study: Brain/Head without Contrast Date of Exam: 04/16 08/09 Exam# [id number] Ordering Dr: Alex Saha MD EXAM: NONCONTRAST [...] Alex Saha MD; Dr. Clinton Fowler DO Shoe Laster: Signed Normal [facility] CBC W/Diff, Automatedon 04-16 Absolute Lymph 1.82 X10 3/uL Normal 0.83-4.51 [facility] Comment on above: Performed By: #### L 100.0100, L500.4050 ####[facility] [address] [place], [address] Absolute Neut 5.2 X10 3/uL Normal 2.0-7.7 [facility] Comment on above: Performed By: #### L 100.0100, L500.4050 ####[facility] [address] [place], [address] Basophils/100 WBC (Bld) 0.9 % Normal 0-1 [facility] Comment on above: Performed By: #### L 100.0100, L500.4050 ####[facility] [address] [place], [address] Eosinophils/100 WBC (Bld) 3.1 % Normal 0-5 [facility] Comment on above: Performed By: #### L 100.0100, L500.4050 ####[facility] [address] [place], [address] Erythrocyte distribution width (RBC) [Ratio] 12.6 % Normal 11.6-14.6 [facility] Comment on above: Performed By: #### L 100.0100, L500.4050 ####[facility] [address] [place], [address] Hematocrit (Bld) [Volume fraction] 34.2 % Low 37-47 [facility] Comment on above: Performed By: #### L 100.0100, L500.4050 ####[facility] [address] [place], [address] Hemoglobin (Bld) [Mass/Vol] 11.6 g/dL Low 12.0-15. 0 [facility] Comment on above: Performed By: #### L 100.0100, L500.4050 ####[facility] [address] [place], [address] IG% 0.400 Normal 0.0-0.9 [facility] Comment on above: Result Comment: IG% - Immature Granulocytes (promyelocytes, myelocytes and metamyelocytes) > 1% indicates that a LEFT SHIFT is Present. Performed By: #### L 100.0100, L500.4050 ####[facility] [address] [place], [address] Lymphocytes/100 WBC (Bld) 22.6 % Normal 19-41 [facility] Comment on above: Performed By: #### L 100.0100, L500.4050 ####[facility] [address] [place], [address] MCH (RBC) [Entitic mass] 31.7 pg Normal 27.0-32.0 [facility] Comment on above: Performed By: #### L 100.0100, L500.4050 ####[facility] [address] [place], [address] MCHC (RBC) [Mass/Vol] 33.9 g/dL Normal 32-36 [facility] Comment on above: Performed By: #### L 100.0100, L500.4050 ####[facility] [address] [place], [address] MCV (RBC) [Entitic vol] 93.4 fL Normal 81-99 [facility] Comment on above: Performed By: #### L 100.0100, L500.4050 ####[facility] [address] [place], [address] Monocytes/100 WBC (Bld) 7.8 % Normal 0-10 [facility] Comment on above: Performed By: #### L 100.0100, L500.4050 ####[facility] [address] [place], [address] Neutrophils/100 WBC (Bld) 65.2 % Normal 47-70 [facility] Comment on above: Performed By: #### L 100.0100, L500.4050 ####[facility] [address] [place], [address] Nucleated RBC (Bld) [#/Vol] 0 10*3/uL Normal 0-5 [facility] Comment on above: Performed By: #### L 100.0100, L500.4050 ####[facility] [address] [place], [address] Platelet mean volume (Bld) [Entitic vol] 10.9 fL Normal 6.2-12.0 [facility] Comment on above: Performed By: #### L 100.0100, L500.4050 ####[facility] [address] [place], [address] Platelets (Bld) [#/Vol] 169 10*3/uL Normal 150-450 [facility] Comment on above: Performed By: #### L 100.0100, L500.4050 ####[facility] [address] [place], [address] RBC (Bld) [#/Vol] 3.66 10*6/uL Low 4.2-5.4 [facility] Comment on above: Performed By: #### L 100.0100, L500.4050 ####[facility] [address] [place], [address] RDW SD 43.2 fl Normal 35.1-43.9 [facility] Comment on above: Performed By: #### L 100.0100, L500.4050 ####[facility] [address] [place], [address] WBC (Bld) [#/Vol] 8.0 10*3/uL Normal 4.4-11.0 [facility] Comment on above: Performed By: #### L 100.0100, L500.4050 ####[facility] [address] [place], [address] Chest 1 View (Portable)on Chest 1 View (Portable) [facility] Imaging Services [address] [place] [address] Chest 1 View (Portable) MR#: [id number] Acct: [id number] Name: LIZA HANCOCK Rep #: [id number] : 1935 F 89 From: Froilan Dillon MD PCP: Dr. Clinton Fowler DO Status: REG ER Study: Chest 1 View (Portable) Date of Exam: 05/05/25 Exam# [id number] Ordering Dr: Alex Saha MD PROCEDURE: CHEST [...] Alex Saha MD; Dr. Clinton Fowler DO Shoe Laster: Signed Normal [facility] Comprehensive Metabolic Prof ilon 05-05-2025 Albumin [Mass/Vol] 4.0 g/dL Normal 3.4-4.8 [facility] Comment on above: Performed By: #### L 100.0100, L500.4050 ####[facility] [address] [place], [address] Albumin/Globulin [Mass ratio] 1.6 {ratio} Normal 0.9-2.4 [facility] Comment on above: Performed By: #### L 100.0100, L500.4050 ####[facility] [address] [place], [address] ALK PHOS 74 U/L Normal 35-104 [facility] Comment on above: Performed By: #### L 100.0100, L500.4050 ####[facility] [address] [place], [address] ALT [Catalytic activity/Vol] 20 U/L Normal <=34 [facility] Comment on above: Performed By: #### L 100.0100, L500.4050 ####[facility] [address] [place], [address] AST [Catalytic activity/Vol] 26 U/L Normal <=31 [facility] Comment on above: Performed By: #### L 100.0100, L500.4050 ####[facility] [address] [place], [address] Bilirubin [Mass/Vol] 0.62 mg/dL Normal 0.00-1.30 [facility] Comment on above: Performed By: #### L 100.0100, L500.4050 ####[facility] [address] [place], [address] BUN/CRE 19.0 RATIO Normal 10-20 [facility] Comment on above: Performed By: #### L 100.0100, L500.4050 ####[facility] [address] [place], [address] Calcium [Mass/Vol] 9.5 mg/dL Normal 7.6-11.0 [facility] Comment on above: Performed By: #### L 100.0100, L500.4050 ####[facility] [address] [place], [address] Chloride [Moles/Vol] 100 mmol/L Normal 98-108 [facility] Comment on above: Performed By: #### L 100.0100, L500.4050 ####[facility] [address] [place], [address] CO2 [Moles/Vol] 24.3 mmol/L Normal 21.0-32.0 [facility] Comment on above: Performed By: #### L 100.0100, L500.4050 ####[facility] [address] [place], [address] Creatinine [Mass/Vol] 0.93 mg/dL Normal 0.70-1.20 [facility] Comment on above: Performed By: #### L 100.0100, L500.4050 ####[facility] [address] [place], [address] ECRCL 39.88 ml/min Low 50-250 [facility] Comment on above: Performed By: #### L 100.0100, L500.4050 ####[facility] [address] [place], [address] GAP 9 Normal 5-15 [facility] Comment on above: Performed By: #### L 100.0100, L500.4050 ####[facility] [address] [place], [address] GFR/1.73 sq M.predicted among non-blacks MDRD (S/P/Bld) [Vol rate/Area] 59 mL/min/{1.73_m2} Low >60 [facility] Comment on above: Result Comment: mL/m in/1.73m2 CKD-EPI Creatinine Equation (2020) Performed By: #### L 100.0100, L500.4050 ####[facility] [address] [place], [address] Globulin (S) [Mass/Vol] 2.5 g/dL Normal 2.2-4.2 [facility] Comment on above: Performed By: #### L 100.0100, L500.4050 ####[facility] [address] [place], [address] Glucose [Mass/Vol] 98 mg/dL Normal 70-99 [facility] Comment on above: Performed By: #### L 100.0100, L500.4050 ####[facility] [address] [place], [address] Potassium [Moles/Vol] 4.5 mmol/L Normal 3.3-5.1 [facility] Comment on above: Performed By: #### L 100.0100, L500.4050 ####[facility] [address] [place], [address] Sodium [Moles/Vol] 133 mmol/L Normal 133-145 [facility] Comment on above: Performed By: #### L 100.0100, L500.4050 ####[facility] [address] [place], [address] T PROT 6.5 g/dL Normal 5.9-8.4 [facility] Comment on above: Performed By: #### L 100.0100, L500.4050 ####[facility] [address] [place], [address] Urea nitrogen [Mass/Vol] 18 mg/dL Normal 4-19 [facility] Comment on above: Performed By: #### L 100.0100, L500.4050 ####[facility] [address] [place], [address] Emergency Department Summary on 05-05-2025 Emergency Department Summary [facility] Medical Records Department [address] [place] [address] Emergency Department Summary 05/05/25 MR#: [id number] Acct: [id number] Name: LIZA HANCOCK Rep #: [id number] : 1935 89 From: Alex Saha MD [...] knew that something was wrong and different. [facility] Medical History GERD (gastroesophageal reflux disease) [...] QHS cholesterol #30 tabs 12/03/17 01/11/23 Rx zgfsswai-bwr-ivfig acid 0.4 1 ea PO BID supplement [...] or pain Unknown History (Tylenol Extra Strength) ofhked-ukdsdfey-eprht se 3 cap PO .aqc #300 caps [...] OF RE (more content not included)... Normal [facility] Urinalysis, Completeon 05-05 BACTERIA 2+ /hpf Normal None Seen [facility] Comment on above: Order Comment: CLEAN CATCH Performed By: #### L 501.4021, M200.1000 #### [facility] Laboratory [address] [place], [address] WBC 0-5 SEEN Normal 0-5 [facility] Comment on above: Order Comment: CLEAN CATCH Performed By: #### L 501.4021, M200.1000 #### [facility] Laboratory [address] [place], [address] EPI,SQUAMOUS 0 SEEN Normal 5-10 [facility] Comment on above: Order Comment: CLEAN CATCH Performed By: #### L 501.4021, M200.1000 #### [facility] Laboratory [address] [place], [address] Mucus Ql (Urine sed) 0 SEEN Normal [facility] Comment on above: Order Comment: CLEAN CATCH Performed By: #### L 501.4021, M200.1000 #### [facility] Laboratory [address] [place], [address] RBC 0 SEEN Normal 0-5 [facility] Comment on above: Order Comment: CLEAN CATCH Performed By: #### L 501.4021, M200.1000 #### [facility] [address] [place], [address] Urine Cultureon 04-01-2025 URC Presumptive E. coli Latexo Count >100,000 Presumptive E. coli: REACTION Ampicillin [...] TMP SMX Islt JIMI >=320 R Normal [facility] Comment on above: Performed By: #### M 100.2200 ####[facility] [address] [place], [place], [address] Absolute lymphocyte countOrd ered By: Quentin Oshea on 03-30-2025 Lymphocytes Auto (Unsp spec) [#/Vol] 2.97 10*3/uL 0.83-4.51 [facility] Absolute neutrophil countOrd ered By: Quentin Oshea on 03-30-2025 Neutrophils (Bld) [#/Vol] 3.1 10*3/uL 2.0-7.7 [facility] Anion gap in Serum or Plasma Ordered By: Quentin Oshea on 03-30-2025 Anion gap [Moles/Vol] 8 mmol/L 11-27 [facility] Automated blood erythrocyte countOrdered By: Quentin Oshea on 03-30-2025 RBC (Bld) [#/Vol] 3.35 10*6/uL Low 4.2-5.4 [facility] Comment on above: Performed By: #### L 500.3400, L500.2500, L501.9520, L100.0100 ####[facility] [address] [place], [address] Automated blood hematocrit ( percentage)Ordered By: Quentin Oshea on 03-30-2025 Hematocrit (Bld) [Volume fraction] 32.2 % Low 37-47 [facility] Comment on above: Performed By: #### L 500.3400, L500.2500, L501.9520, L100.0100 ####[facility] [address] [place], [address] Automated lymphocyte count a s percentage of total leukocytesOrdered By: Quentni Oshea on 03-30-2025 Lymphocytes/100 WBC Auto (Unsp spec) 42.1 % High 19-41 [facility] BUN/creatinine ratioOrdered By: Quentin Oshea on 03-30-2025 Urea nitrogen/Creatinine [Mass ratio] 20.0 mg/mg 05-04 [facility] Basic Metabolic Profile (BMP )on 03-30-2025 BUN/CRE 20.0 RATIO Normal - [facility] Comment on above: Performed By: #### L 500.3400, L500.2500, L501.9520, L100.0100 ####[facility] [address] [place], [address] ECRCL 32.99 ml/min Low 50-250 [facility] Comment on above: Performed By: #### L 500.3400, L500.2500, L501.9520, L100.0100 ####[facility] [address] [place], [address] GAP 8 Normal - [facility] Comment on above: Performed By: #### L 500.3400, L500.2500, L501.9520, L100.0100 ####[facility] [address] [place], [address] Potassium [Moles/Vol] 4.4 mmol/L Normal 3.3-5.1 [facility] Comment on above: Performed By: #### L 500.3400, L500.2500, L501.9520, L100.0100 ####[facility] [address] [place], [address] Basophil percentageOrdered B y: Quentin Oshea on 03-30-2025 Basophils/100 WBC (Bld) 1.0 % Normal 0-1 [facility] Comment on above: Performed By: #### L 500.3400, L500.2500, L501.9520, L100.0100 ####[facility] [address] [place], [address] Bilirubin Test strip Ql (U)O rdered By: Quentin Oshea on 03-30-2025 Bilirubin Ql (U) Negative Negative [facility] Bilirubin directOrdered By: Quentin Oshea on 03-30-2025 Bilirubin.direct [Mass/Vol] 0.13 mg/dL Normal 0.00-0.3 0 [facility] Comment on above: Performed By: #### L 500.3400, L500.2500, L501.9520, L100.0100 ####[facility] [address] [place], [address] Bilirubin, totalOrdered By: Quentin Oshea on 03-30-2025 Bilirubin [Mass/Vol] 0.24 mg/dL Normal 0.00-1.30 [facility] Comment on above: Performed By: #### L 500.3400, L500.2500, L501.9520, L100.0100 ####[facility] [address] [place], [address] Brain/Head without Contrasto n 03-30-2025 Brain/Head without Contrast [facility] Imaging Services [address] [place] [address] Brain/Head without Contrast MR#: [id number] Acct: [id number] Name: LIZA HANCOCK Rep #: [id number] : 1935 F 89 From: Phyllis douglas MD PCP: Dr. Clinton Fowler DO Status: REG ER Study: Brain/Head without Contrast Date of Exam: 03/16 12/07 Exam# [id number] Ordering Dr: Quentin Oshea DO PROCEDURE: BRAIN/HEAD [...] matches brain involutional changes. Stable. [facility]: Dr. Clinton Fowler DO; Quentin Oshea DO Shoe Laster: Signed Normal [facility] CBC W/Diff, Automatedon 03-16 Absolute Lymph 2.97 X10 3/uL Normal 0.83-4.51 [facility] Comment on above: Performed By: #### L 500.3400, L500.2500, L501.9520, L100.0100 ####[facility] [address] [place], [address] Absolute Neut 3.1 X10 3/uL Normal 2.0-7.7 [facility] Comment on above: Performed By: #### L 500.3400, L500.2500, L501.9520, L100.0100 ####[facility] [address] [place], [address] IG% 0.400 Normal 0.0-0.9 [facility] Comment on above: Result Comment: IG% - Immature Granulocytes (promyelocytes, myelocytes and metamyelocytes) > 1% indicates that a LEFT SHIFT is Present. Performed By: #### L 500.3400, L500.2500, L501.9520, L100.0100 ####[facility] [address] [place], [address] Lymphocytes/100 WBC (Bld) 42.1 % High 19-41 [facility] Comment on above: Performed By: #### L 500.3400, L500.2500, L501.9520, L100.0100 ####[facility] [address] [place], [address] Nucleated RBC (Bld) [#/Vol] 0 10*3/uL Normal 0-5 [facility] Comment on above: Performed By: #### L 500.3400, L500.2500, L501.9520, L100.0100 ####[facility] [address] [place], [address] RDW SD 45.1 fl High 35.1-43.9 [facility] Comment on above: Performed By: #### L 500.3400, L500.2500, L501.9520, L100.0100 ####[facility] [address] [place], [address] Carbon dioxide, total [Moles /volume] in Central venous bloodOrdered By: Quentin Oshea on 03-30-2025 CO2 [Moles/Vol] 25.9 mmol/L Normal 21.0-32.0 [facility] Comment on above: Performed By: #### L 500.3400, L500.2500, L501.9520, L100.0100 ####[facility] [address] [place], [address] Chloride assayOrdered By: Ivette Oshea on 03-30-2025 Chloride [Moles/Vol] 106 mmol/L Normal 98-108 [facility] Comment on above: Performed By: #### L 500.3400, L500.2500, L501.9520, L100.0100 ####[facility] [address] [place], [address] Emergency Department Summary on 03-30-2025 Emergency Department Summary [facility] Medical Records Department [address] [place] [address] Emergency Department Summary 03/30/25 MR#: [id number] Acct: [id number] Name: LIZA HANCOCK Rep #: [id number] : 1935 89 From: Quentin Oshea DO PCP: Dr. Clinton Fowler, Status:DEP ER Location: ED HPI History [...] any history based on her dementia status [facility] Medical History GERD (gastroesophageal reflux disease) [...] QHS cholesterol #30 tabs 12/03/17 01/11/23 Rx zhnzzmtq-doe-ytwtf acid 0.4 1 ea PO BID supplement [...] or pain Unknown History (Tylenol Extra Strength) bxzqea-jlgiitgo-qkgqn se 3 cap PO .aqc #300 caps [...] Status: N (more content not included)... Normal [facility] Eosinophil percentageOrdered By: Quentin Oshea on 03-30-2025 Eosinophils/100 WBC (Bld) 3.8 % Normal 0-5 [facility] Comment on above: Performed By: #### L 500.3400, L500.2500, L501.9520, L100.0100 ####[facility] [address] [place], [place], [address] Erythrocyte distribution wid th ratioOrdered By: Quentin Oshea on 03-30-2025 Erythrocyte distribution width (RBC) [Ratio] 12.8 % Normal 11.6-14.6 [facility] Comment on above: Performed By: #### L 500.3400, L500.2500, L501.9520, L100.0100 ####[facility] [address] [place], [place], [address] Erythrocyte distribution wid th standard deviationOrdered By: Quentin Oshea on 03-30-2025 Erythrocyte distribution width (RBC) [Ratio] 45.1 fl High 35.1-43.9 [facility] Glomerular filtration rate ( GFR) estimation/1.73 sq m using serum, plasma, or whole bOrdered By: Quentin Oshea on 03-30-2025 GFR/1.73 sq M.predicted among non-blacks MDRD (S/P/Bld) [Vol rate/Area] 47 mL/min/{1.73_m2} Low >60 [facility] Comment on above: mL/min/1.73m2 CKD-EP I Creatinine Equation (2020) Result Comment: mL/m in/1.73m2 CKD-EPI Creatinine Equation (2020) Performed By: #### L 500.3400, L500.2500, L501.9520, L100.0100 ####[facility] [address] [place], [address] Hemoglobin measurementOrdere d By: Quentin Oshea on 03-30-2025 Hemoglobin (Bld) [Mass/Vol] 10.5 g/dL Low 12.0-15. 0 [facility] Comment on above: Performed By: #### L 500.3400, L500.2500, L501.9520, L100.0100 ####[facility] [address] [place], [address] Immature granulocytes/100 WB C Auto (Bld)Ordered By: Quentin Oshea on 03-30-2025 Immature granulocytes/100 WBC (Bld) 0.400 % 0.0-0.9 [facility] Comment on above: IG% - Immature Granu locytes (promyelocytes, myelocytes and metamyelocytes) > 1% indicates that a LEFT SHIFT is Present. Ketones Test strip Ql (U)Ord ered By: Quentin Oshea on 03-30-2025 Ketones Ql (U) Negative Negative [facility] Liver Profileon 03-30-2025 ALK PHOS 69 U/L Normal 35-104 [facility] Comment on above: Performed By: #### L 500.3400, L500.2500, L501.9520, L100.0100 ####[facility] [address] [place], [address] T PROT 6.2 g/dL Normal 5.9-8.4 [facility] Comment on above: Performed By: #### L 500.3400, L500.2500, L501.9520, L100.0100 ####[facility] [address] [place], [address] Liver ProfileOrdered By: Alli Oshea on 03-30-2025 AST [Catalytic activity/Vol] 22 U/L Normal <=31 [facility] Comment on above: Performed By: #### L 500.3400, L500.2500, L501.9520, L100.0100 ####[facility] [address] [place], [address] MCV (mean corpuscular volume ) determinationOrdered By: Quentin Oshea on 03-30-2025 MCV (RBC) [Entitic vol] 96.1 fL Normal 81-99 [facility] Comment on above: Performed By: #### L 500.3400, L500.2500, L501.9520, L100.0100 ####[facility] [address] [place], [address] Mean corpuscular hemoglobin (MCH) determinationOrdered By: Quentin Oshea on 03-30-2025 MCH (RBC) [Entitic mass] 31.3 pg Normal 27.0-32.0 [facility] Comment on above: Performed By: #### L 500.3400, L500.2500, L501.9520, L100.0100 ####[facility] [address] [place], [address] Mean corpuscular hemoglobin concentration (MCHC) determinationOrdered By: Quentin Oshea on 03-30-2025 MCHC (RBC) [Mass/Vol] 32.6 g/dL Normal 32-36 [facility] Comment on above: Performed By: #### L 500.3400, L500.2500, L501.9520, L100.0100 ####[facility] [address] [place], [address] Mean platelet volume determi nationOrdered By: Quentin Oshea on 03-30-2025 Platelet mean volume (Bld) [Entitic vol] 10.4 fL Normal 6.2-12.0 [facility] Comment on above: Performed By: #### L 500.3400, L500.2500, L501.9520, L100.0100 ####[facility] [address] [place], [place], [address] Microscopic analysis of urin e for red blood cells (RBC)Ordered By: Quentin Oshea on 03-30-2025 Microscopic analysis of urine for red blood cells (RBC) 0 SEEN /hpf 0-5 [facility] Monocyte percentageOrdered B y: Quentin Oshea on 03-30-2025 Monocytes/100 WBC (Bld) 9.1 % Normal 0-10 [facility] Comment on above: Performed By: #### L 500.3400, L500.2500, L501.9520, L100.0100 ####[facility] [address] [place], [place], [id number] Mucus LM Ql (Urine sed)Order ed By: Quentin Oshea on 03-30-2025 Mucus Ql (Urine sed) 0 SEEN /hpf [facility] Neutrophil percentageOrdered By: Quentin Oshea on 03-30-2025 Neutrophils/100 WBC (Bld) 43.6 % Low 47-70 [facility] Comment on above: Performed By: #### L 500.3400, L500.2500, L501.9520, L100.0100 ####[facility] [address] [place], [place], [id number] Nitrite Test strip Ql (U)Ord ered By: Quentin Oshea on 03-30-2025 Nitrite Ql (U) Positive High Negative [facility] Nucleated red blood cell per centageOrdered By: Quentin Oshea on 03-30-2025 Nucleated RBC/100 WBC (Bld) [Ratio] 0 % 0-5 [facility] Platelet countOrdered By: Ivette Oshea on 03-30-2025 Platelets (Bld) [#/Vol] 161 10*3/uL Normal 150-450 [facility] Comment on above: Performed By: #### L 500.3400, L500.2500, L501.9520, L100.0100 ####[facility] [address] [place], [address] Potassium measurement (mass/ volume)Ordered By: Quentin Oshea on 03-30-2025 Potassium (Unsp spec) [Mass/Vol] 4.4 mmol/L 3.3-5.1 [facility] Protein Test strip Ql (U)Ord ered By: Quentin Oshea on 03-30-2025 Protein Ql (U) Negative Negative [facility] Serum creatinine measurement (mass/volume)Ordered By: Quentin Oshea on 03-30-2025 Creatinine [Mass/Vol] 1.12 mg/dL Normal 0.70-1.20 [facility] Comment on above: Performed By: #### L 500.3400, L500.2500, L501.9520, L100.0100 ####[facility] [address] [place], [address] Serum globulin measurementOr dered By: Quentin Oshea on 03-30-2025 Globulin (S) [Mass/Vol] 2.6 g/dL Normal 2.2-4.2 [facility] Comment on above: Performed By: #### L 500.3400, L500.2500, L501.9520, L100.0100 ####[facility] [address] [place], [address] Serum glucose measurement (m ass/volume)Ordered By: Quentin Oshea on 03-30-2025 Glucose [Mass/Vol] 131 mg/dL High 70-99 [facility] Comment on above: Performed By: #### L 500.3400, L500.2500, L501.9520, L100.0100 ####[facility] [address] [place], [address] Serum or plasma alanine lay otransferase (ALT) measurementOrdered By: Quentin Oshea on 03-30-2025 ALT [Catalytic activity/Vol] 18 U/L Normal <=34 [facility] Comment on above: Performed By: #### L 500.3400, L500.2500, L501.9520, L100.0100 ####[facility] [address] [place], [address] Serum or plasma albumin beck urement (mass/volume)Ordered By: Quentin Oshea on 03-30-2025 Albumin [Mass/Vol] 3.6 g/dL Normal 3.4-4.8 [facility] Comment on above: Performed By: #### L 500.3400, L500.2500, L501.9520, L100.0100 ####[facility] [address] [place], [address] Serum or plasma alkaline hector sphatase measurementOrdered By: Quentin Oshea on 03-30-2025 ALP [Catalytic activity/Vol] 69 U/L 35-104 [facility] Serum or plasma calcium beck urement (mass/volume)Ordered By: Quentin Oshea on 03-30-2025 Calcium [Mass/Vol] 9.4 mg/dL Normal 7.6-11.0 [facility] Comment on above: Performed By: #### L 500.3400, L500.2500, L501.9520, L100.0100 ####[facility] [address] [place], [address] Serum or plasma urea nitroge n measurement (mass/volume)Ordered By: Quentin Oshea on 03-30-2025 Urea nitrogen [Mass/Vol] 22 mg/dL High 4-19 [facility] Comment on above: Performed By: #### L 500.3400, L500.2500, L501.9520, L100.0100 ####[facility] [address] [place], [address] Sodium levelOrdered By: Fred Oshea on 03-30-2025 Sodium [Moles/Vol] 140 mmol/L Normal 133-145 [facility] Comment on above: Performed By: #### L 500.3400, L500.2500, L501.9520, L100.0100 ####[facility] [address] [place], [address] Squamous epithelial cells de tection in urine sediment by light microscopyOrdered By: Quentin Oshea on 03-30-2025 Epithelial cells.squamous LM Ql (Urine sed) 0 SEEN /hpf 5-10 [facility] TSH DL <= 0.005 mIU/L QnOrde red By: Quentin Oseha on 03-30-2025 TSH Qn 2.710 uIU/mL 0.300-4.200 [facility] Thyroid Stim Hormone (TSH)on 03-30-2025 TSH 2.710 uIU/mL Normal 0.300-4.200 [facility] Comment on above: Performed By: #### L 500.3400, L500.2500, L501.9520, L100.0100 ####[facility] [address] [place], [address] Total proteinOrdered By: Alli Oshea on 03-30-2025 Protein [Mass/Vol] 6.2 g/dL 5.9-8.4 [facility] Urinalysis, Completeon 03-30 BACTERIA 2+ /hpf Normal None Seen [facility] Comment on above: Order Comment: LUCIA TER SPECIMEN Performed By: #### L 400.0001 ####[facility] [address] [place], [address] WBC 5-10 SEEN Normal 0-5 [facility] Comment on above: Order Comment: LUCIA TER SPECIMEN Performed By: #### L 400.0001 ####[facility] [address] [place], [address] EPI,SQUAMOUS 0 SEEN Normal 5-10 [facility] Comment on above: Order Comment: LUCIA TER SPECIMEN Performed By: #### L 400.0001 ####[facility] [address] [place], [address] Mucus Ql (Urine sed) 0 SEEN Normal [facility] Comment on above: Order Comment: LUCIA TER SPECIMEN Performed By: #### L 400.0001 ####[facility] [address] [place], [place], [id number] RBC 0 SEEN Normal 0-5 [facility] Comment on above: Order Comment: LUCIA TER SPECIMEN Performed By: #### L 400.0001 ####[facility] [address] [place], [place], [id number] Urine clarityOrdered By: Alli Oshea on 03-30-2025 Clarity (U) Clear Clear [facility] Urine color determinationOrd ered By: Quentin Oshea on 03-30-2025 Color (U) Yellow Yellow [facility] Urine glucose detectionOrder ed By: Quentin Oshea on 03-30-2025 Glucose Ql (U) Normal mg/dl Normal [facility] Urine leukocyte esterase det ection by dipstickOrdered By: Quentin Oshea on 03-30-2025 Leukocyte esterase Test strip Ql (U) 100 /ul High Negative [facility] Urine pHOrdered By: Quentin fox on 03-30-2025 pH (U) 6.5 [pH] 5.0 - 8.0 [facility] Urine sediment bacteria coun t by microscopy (number/high power field)Ordered By: Quentin Oshea on 03-30-2025 Bacteria LM.HPF (Urine sed) [#/Area] 2 /[HPF] None Seen [facility] Urine specific gravity measu rementOrdered By: Quentin Oshea on 03-30-2025 Specific gravity (U) [Rel density] 1.010 1.002-1.030 [facility] Urine urobilinogen measureme ntOrdered By: Quentin Oshea on 03-30-2025 Urobilinogen Ql (U) Normal mg/dl Normal [facility] White blood cell (WBC) count Ordered By: Quentin Oshea on 03-30-2025 WBC (Bld) [#/Vol] 7.1 10*3/uL Normal 4.4-11.0 [facility] Comment on above: Performed By: #### L 500.3400, L500.2500, L501.9520, L100.0100 ####[facility] [address] [place], [place], [address] White blood cell countOrdere d By: Quentin Oshea on 03-30-2025 White blood cell count 5-10 SEEN /hpf 0-5 [facility] Urine Cultureon 02-24-2025 URC Escherichia coli Latexo Count >100,000 Escherichia coli: REACTION Ampicillin Islt [...] TMP SMX Islt JIMI >=320 R Normal [facility] Comment on above: Performed By: #### M 100.2206 ####[facility] [address] [facility] [address] [place], [place], [address] Absolute lymphocyte countOrd ered By: Sixto Alvarez on 02-22-2025 Lymphocytes Auto (Unsp spec) [#/Vol] 2.77 10*3/uL 0.83-4.51 [facility] Absolute neutrophil countOrd ered By: Sixto Alvarez on 02-22-2025 Neutrophils (Bld) [#/Vol] 3.1 10*3/uL 2.0-7.7 [facility] Anion gap in Serum or Plasma Ordered By: Sixto Alvarez on 02-22-2025 Anion gap [Moles/Vol] 9 mmol/L - [facility] Automated lymphocyte count a s percentage of total leukocytesOrdered By: Sixto Alvarez on 02-22-2025 Lymphocytes/100 WBC Auto (Unsp spec) 39.9 % [facility] BUN/creatinine ratioOrdered By: Sixto Alvarez on 02-22-2025 Urea nitrogen/Creatinine [Mass ratio] 22.9 mg/mg High - [facility] Basic Metabolic Profile (BMP )on 02-22-2025 BUN/CRE 22.9 RATIO High 10-20 [facility] Comment on above: Performed By: #### L 501.4021, M200.1000 #### [facility] [address] [place], [address] Calcium [Mass/Vol] 9.2 mg/dL Normal 7.6-11.0 [facility] Comment on above: Performed By: #### L 501.4021, M200.1000 #### [facility] [address] [place], [address] Chloride [Moles/Vol] 106 mmol/L Normal 98-108 [facility] Comment on above: Performed By: #### L 501.4021, M200.1000 #### [facility] [address] [place], [address] CO2 [Moles/Vol] 23.6 mmol/L Normal 21.0-32.0 [facility] Comment on above: Performed By: #### L 501.4021, M200.1000 #### [facility] [address] [place], [address] Creatinine [Mass/Vol] 1.01 mg/dL Normal 0.70-1.20 [facility] Comment on above: Performed By: #### L 501.4021, M200.1000 #### [facility] [address] [place], [address] ECRCL 37.27 ml/min Low 50-250 [facility] Comment on above: Performed By: #### L 501.4021, M200.1000 #### [facility] [address] [place], [address] GAP 9 Normal 5-15 [facility] Comment on above: Performed By: #### L 501.4021, M200.1000 #### [facility] [address] [place], [address] GFR/1.73 sq M.predicted among non-blacks MDRD (S/P/Bld) [Vol rate/Area] 53 mL/min/{1.73_m2} Low >60 [facility] Comment on above: Result Comment: mL/m in/1.73m2 CKD-EPI Creatinine Equation (2020) Performed By: #### L 501.4021, M200.1000 #### [facility] [address] [place], [address] Glucose [Mass/Vol] 138 mg/dL High 70-99 [facility] Comment on above: Performed By: #### L 501.4021, M200.1000 #### [facility] [address] [place], [address] Potassium [Moles/Vol] 4.7 mmol/L Normal 3.3-5.1 [facility] Comment on above: Result Comment: Hemo lysis present, Results??could be affected. ?? Performed By: #### L 501.4021, M200.1000 #### [facility] [address] [place], [address] Sodium [Moles/Vol] 139 mmol/L Normal 133-145 [facility] Comment on above: Performed By: #### L 501.4021, M200.1000 #### [facility] [address] [place], [address] Urea nitrogen [Mass/Vol] 23 mg/dL High 4-19 [facility] Comment on above: Performed By: #### L 501.4021, M200.1000 #### [facility] [address] [place], [address] Basophil percentageOrdered B y: Sixto Alvarez on 02-22-2025 Basophils/100 WBC (Bld) 1.0 % 0-1 [facility] Bilirubin Test strip Ql (U)O rdered By: Sixto Alvarez on 02-22-2025 Bilirubin Ql (U) Negative Negative [facility] Brain/Head without Contrasto n 02-22-2025 Brain/Head without Contrast [facility] Imaging Services [address] [place], [place] [address] Brain/Head without Contrast MR#: [id number] Acct: [id number] Name: LIZA HANCOCK Rep #: [id number] : 1935 F 89 From: Nathaly Carney nd, MD PCP: Dr. Clinton Fowler DO Status: REG ER Study: Brain/Head without Contrast Date of Exam: 02/13 Exam# [id number] Ordering Dr: Sixto Alvarez DO EXAM: BRAIN/HEAD [...] IMPRESSION: No acute intracranial finding. Reading Location: [id number] CC: Dr. Sixto Alvarez DO; Dr. Clinton Fowler DO Shoe Laster: Signed Normal [facility] CBC W/Diff, Automatedon 02-13 Absolute Lymph 2.77 X10 3/uL Normal 0.83-4.51 [facility] Comment on above: Performed By: #### L 501.4021, M200.1000 #### [facility] [address] [place], [address] Absolute Neut 3.1 X10 3/uL Normal 2.0-7.7 [facility] Comment on above: Performed By: #### L 501.4021, M200.1000 #### [facility] [address] [place], [address] Basophils/100 WBC (Bld) 1.0 % Normal 0-1 [facility] Comment on above: Performed By: #### L 501.4021, M200.1000 #### [facility] [address] [place], [address] Eosinophils/100 WBC (Bld) 3.6 % Normal 0-5 [facility] Comment on above: Performed By: #### L 501.4021, M200.1000 #### [facility] [address] [place], [address] Erythrocyte distribution width (RBC) [Ratio] 13.1 % Normal 11.6-14.6 [facility] Comment on above: Performed By: #### L 501.4021, M200.1000 #### [facility] [address] [place], [address] Hematocrit (Bld) [Volume fraction] 30.7 % Low 37-47 [facility] Comment on above: Performed By: #### L 501.4021, M200.1000 #### [facility] [address] [place], [address] Hemoglobin (Bld) [Mass/Vol] 10.1 g/dL Low 12.0-15. 0 [facility] Comment on above: Performed By: #### L 501.4021, M200.1000 #### [facility] [address] [place], [address] IG% 0.600 Normal 0.0-0.9 [facility] Comment on above: Result Comment: IG% - Immature Granulocytes (promyelocytes, myelocytes and metamyelocytes) > 1% indicates that a LEFT SHIFT is Present. Performed By: #### L 501.4021, M200.1000 #### [facility] [address] [place], [address] Lymphocytes/100 WBC (Bld) 39.9 % Normal 19-41 [facility] Comment on above: Performed By: #### L 501.4021, M200.1000 #### [facility] [address] [place], [address] MCH (RBC) [Entitic mass] 31.3 pg Normal 27.0-32.0 [facility] Comment on above: Performed By: #### L 501.4021, M200.1000 #### [facility] [address] [place], [address] MCHC (RBC) [Mass/Vol] 32.9 g/dL Normal 32-36 [facility] Comment on above: Performed By: #### L 501.4021, M200.1000 #### [facility] [address] [place], [address] MCV (RBC) [Entitic vol] 95.0 fL Normal 81-99 [facility] Comment on above: Performed By: #### L 501.4021, M200.1000 #### [facility] [address] [place], [address] Monocytes/100 WBC (Bld) 9.9 % Normal 0-10 [facility] Comment on above: Performed By: #### L 501.4021, M200.1000 #### [facility] [address] [place], [address] Neutrophils/100 WBC (Bld) 45.0 % Low 47-70 [facility] Comment on above: Performed By: #### L 501.4021, M200.1000 #### [facility] [address] [place], [address] Nucleated RBC (Bld) [#/Vol] 0 10*3/uL Normal 0-5 [facility] Comment on above: Performed By: #### L 501.4021, M200.1000 #### [facility] [address] [place], [address] Platelet mean volume (Bld) [Entitic vol] 11.0 fL Normal 6.2-12.0 [facility] Comment on above: Performed By: #### L 501.4021, M200.1000 #### [facility] [address] [place], [address] Platelets (Bld) [#/Vol] 165 10*3/uL Normal 150-450 [facility] Comment on above: Performed By: #### L 501.4021, M200.1000 #### [facility] [address] [place], [address] RBC (Bld) [#/Vol] 3.23 10*6/uL Low 4.2-5.4 [facility] Comment on above: Performed By: #### L 501.4021, M200.1000 #### [facility] [address] [place], [address] RDW SD 45.7 fl High 35.1-43.9 [facility] Comment on above: Performed By: #### L 501.4021, M200.1000 #### [facility] [address] [place], [address] WBC (Bld) [#/Vol] 6.9 10*3/uL Normal 4.4-11.0 [facility] Comment on above: Performed By: #### L 501.4021, M200.1000 #### [facility] [address] [place], [address] Carbon dioxide, total [Moles /volume] in Central venous bloodOrdered By: Sixto Alvarez on 02-22-2025 CO2 [Moles/Vol] 23.6 mmol/L 21.0-32.0 [facility] Chest PA and Lateralon 02-22 Chest PA and Lateral [facility] Imaging Services [address] [place] [address] Chest PA and Lateral MR#: [id number] Acct: [id number] Name: LIZA HANCOCK Rep #: [id number] : 1935 F 89 From: Nathaly Carney nd, MD PCP: Dr. Clinton Fowler DO Status: REG ER Study: Chest PA and Lateral Date of Exam: 02/22/25 Exam# [id number] Ordering Dr: Sixto Alvarez DO PROCEDURE: CHEST [...] Lateral IMPRESSION: NO ACUTE FINDINGS. Reading Location: [facility] CC: Dr. Sixto Alvarez DO; Dr. Clinton Fowler DO Shoe Laster: Signed Normal [facility] Chloride assayOrdered By: Siva Alvarez on 02-22-2025 Chloride [Moles/Vol] 106 mmol/L 98-108 [facility] Emergency Department Summary on 02-22-2025 Emergency Department Summary [facility] Medical Records Department [address] [place] [address] Emergency Department Summary 02/22/25 MR#: [id number] Acct: [id number] Name: LIZA HANCOCK Rep #: [id number] : 1935 89 From: Sixto Alvarez DO [...] denies any shortness of breath or cough. [facility] Medical History GERD (gastroesophageal reflux disease) [...] QHS cholesterol #30 tabs 12/03/17 01/11/23 Rx xyaoyxnk-uhs-fcjfh acid 0.4 1 ea PO BID supplement [...] or pain Unknown History (Tylenol Extra Strength) eokryc-jpjgqwbq-buisy se 3 cap PO .aqc #300 caps [...] due t (more content not included)... Normal [facility] Eosinophil percentageOrdered By: Sixto Alvarez on 02-22-2025 Eosinophils/100 WBC (Bld) 3.6 % 0-5 [facility] Erythrocyte distribution wid th ratioOrdered By: Sixto Alvarez on 02-22-2025 Erythrocyte distribution width (RBC) [Ratio] 13.1 % 11.6-14.6 [facility] Erythrocyte distribution wid th standard deviationOrdered By: Sixto Alvarez on 02-22-2025 Erythrocyte distribution width (RBC) [Ratio] 45.7 fl High 35.1-43.9 [facility] Glomerular filtration rate ( GFR) estimation/1.73 sq m using serum, plasma, or whole bOrdered By: Sixto Alvarez on 02-22-2025 GFR/1.73 sq M.predicted among non-blacks MDRD (S/P/Bld) [Vol rate/Area] 53 mL/min/{1.73_m2} Low >60 [facility] Comment on above: mL/min/1.73m2 CKD-EP I Creatinine Equation (2020) Hematocrit Auto (Bld) [Volum e fraction]Ordered By: Sixto Alvarez on 02-22-2025 Hematocrit (Bld) [Volume fraction] 30.7 % Low 37-47 [facility] Hemoglobin measurementOrdere d By: Sixto Alvarez on 02-22-2025 Hemoglobin (Bld) [Mass/Vol] 10.1 g/dL Low 12.0-15. 0 [facility] Immature granulocytes/100 WB C Auto (Bld)Ordered By: Sixto Alvarez on 02-22-2025 Immature granulocytes/100 WBC (Bld) 0.600 % 0.0-0.9 [facility] Comment on above: IG% - Immature Granu locytes (promyelocytes, myelocytes and metamyelocytes) > 1% indicates that a LEFT SHIFT is Present. Ketones Test strip Ql (U)Ord ered By: Sixto Alvarez on 02-22-2025 Ketones Ql (U) Negative Negative [facility] MCV (mean corpuscular volume ) determinationOrdered By: Sixto Alvarez on 02-22-2025 MCV (RBC) [Entitic vol] 95.0 fL 81-99 [facility] Mean corpuscular hemoglobin (MCH) determinationOrdered By: Sixto Alvarez on 02-22-2025 MCH (RBC) [Entitic mass] 31.3 pg 27.0-32.0 [facility] Mean corpuscular hemoglobin concentration (MCHC) determinationOrdered By: Sixto Alvarez on 02-22-2025 MCHC (RBC) [Mass/Vol] 32.9 g/dL 32-36 [facility] Mean platelet volume determi nationOrdered By: Sixto Alvarez on 02-22-2025 Platelet mean volume (Bld) [Entitic vol] 11.0 fL 6.2-12.0 [facility] Microscopic analysis of urin e for red blood cells (RBC)Ordered By: Sixto Alvarez on 02-22-2025 Microscopic analysis of urine for red blood cells (RBC) 0 SEEN /hpf 0-5 [facility] Monocyte percentageOrdered B y: Sixto Alvarez on 02-22-2025 Monocytes/100 WBC (Bld) 9.9 % 0-10 [facility] Mucus LM Ql (Urine sed)Order ed By: Sixto Alvarez on 02-22-2025 Mucus Ql (Urine sed) RARE /hpf [facility] Neutrophil percentageOrdered By: Sixto Alvarez on 02-22-2025 Neutrophils/100 WBC (Bld) 45.0 % Low 47-70 [facility] Nitrite Test strip Ql (U)Ord ered By: Sixto Alvarez on 02-22-2025 Nitrite Ql (U) Negative Negative [facility] Nucleated red blood cell per centageOrdered By: Sixto Alvarez on 02-22-2025 Nucleated RBC/100 WBC (Bld) [Ratio] 0 % 0-5 [facility] Platelet countOrdered By: Siva Alvarez on 02-22-2025 Platelets (Bld) [#/Vol] 165 10*3/uL 150-450 [facility] Potassium measurement (mass/ volume)Ordered By: Sixto Alvarez on 02-22-2025 Potassium (Unsp spec) [Mass/Vol] 4.7 mmol/L 3.3-5.1 [facility] Comment on above: Hemolysis present, R esults could be affected. Protein Test strip Ql (U)Ord ered By: Sixto Alvarez on 02-22-2025 Protein Ql (U) 15 mg/dl High Negative [facility] RBC Auto (Bld) [#/Vol]Ordere d By: Sixto Alvarez on 02-22-2025 RBC (Bld) [#/Vol] 3.23 10*6/uL Low 4.2-5.4 [facility] Serum creatinine measurement (mass/volume)Ordered By: Sixto Alvarez on 02-22-2025 Creatinine [Mass/Vol] 1.01 mg/dL 0.70-1.20 [facility] Serum glucose measurement (m ass/volume)Ordered By: Sixto Alvarez on 02-22-2025 Glucose [Mass/Vol] 138 mg/dL High 70-99 [facility] Serum or plasma calcium beck urement (mass/volume)Ordered By: Sixto Alvarez on 02-22-2025 Calcium [Mass/Vol] 9.2 mg/dL 7.6-11.0 [facility] Serum or plasma urea nitroge n measurement (mass/volume)Ordered By: Sixto Alvarez on 02-22-2025 Urea nitrogen [Mass/Vol] 23 mg/dL High 4-19 [facility] Sodium levelOrdered By: Sixto Alvarez on 02-22-2025 Sodium [Moles/Vol] 139 mmol/L 133-145 [facility] Squamous epithelial cells de tection in urine sediment by light microscopyOrdered By: Sixto Alvarez on 02-22-2025 Epithelial cells.squamous LM Ql (Urine sed) 0-5 SEEN /hpf 5-10 [facility] Urinalysis, Completeon 02-22 EPI,RENAL 0-5 SEEN Normal 0-5 [facility] Comment on above: Order Comment: LUCIA TER SPECIMEN Performed By: #### L 400.0001 #### [facility] [address] [place], [address] BACTERIA 2+ /hpf Normal None Seen [facility] Comment on above: Order Comment: LUCIA TER SPECIMEN Performed By: #### L 400.0001 #### [facility] [address] [place], [address] EPI,SQUAMOUS 0-5 SEEN Normal 5-10 [facility] Comment on above: Order Comment: LUCIA TER SPECIMEN Performed By: #### L 400.0001 #### [facility] [address] [place], [address] Mucus Ql (Urine sed) RARE Normal [facility] Comment on above: Order Comment: LUCIA TER SPECIMEN Performed By: #### L 400.0001 #### [facility] [address] [place], [address] WBC 5-10 SEEN Normal 0-5 [facility] Comment on above: Order Comment: LUCIA TER SPECIMEN Performed By: #### L 400.0001 #### [facility] [address] [place], [address] RBC 0 SEEN Normal 0-5 [facility] Comment on above: Order Comment: LUCIA TER SPECIMEN Performed By: #### L 400.0001 #### [facility] [address] [place], [address] Urine clarityOrdered By: Debbie Alvarez on 02-22-2025 Clarity (U) Clear Clear [facility] Urine color determinationOrd ered By: Sixto Alvarez on 02-22-2025 Color (U) Yellow Yellow [facility] Urine cultureOrdered By: Debbie Alvarez on 02-22-2025 Bacteria identified Cx Nom (U) Escherichia coli Abnormal [facility] Urine glucose detectionOrder ed By: Sixto Alvarez on 02-22-2025 Glucose Ql (U) Normal mg/dl Normal [facility] Urine leukocyte esterase det ection by dipstickOrdered By: Sixto Alvarez on 02-22-2025 Leukocyte esterase Test strip Ql (U) 100 /ul High Negative [facility] Urine pHOrdered By: Sixto hollingsworth on 02-22-2025 pH (U) 6.0 [pH] 5.0 - 8.0 [facility] Urine sediment bacteria coun t by microscopy (number/high power field)Ordered By: Sixto Alvarez on 02-22-2025 Bacteria LM.HPF (Urine sed) [#/Area] 2 /[HPF] None Seen [facility] Urine sediment renal epithel ial cell count by microscopy (number/high power field)Ordered By: Sixto Alvarez on 02-22-2025 Epithelial cells.renal LM.HPF (Urine sed) [#/Area] 0 /[HPF] 0-5 [facility] Urine specific gravity measu rementOrdered By: Sixto Alvarez on 02-22-2025 Specific gravity (U) [Rel density] 1.015 1.002-1.030 [facility] Urine urobilinogen measureme ntOrdered By: Sixto Alvarez on 02-22-2025 Urobilinogen Ql (U) Normal mg/dl Normal [facility] White blood cell (WBC) count Ordered By: Sixto Alvarez on 02-22-2025 WBC (Bld) [#/Vol] 6.9 10*3/uL 4.4-11.0 [facility] White blood cell countOrdere d By: Sixto Alvarez on 02-22-2025 White blood cell count 5-10 SEEN /hpf 0-5 [facility] Absolute lymphocyte countOrd ered By: Clinton Fowler on 01-01-2025 Lymphocytes Auto (Unsp spec) [#/Vol] 2.08 10*3/uL 0.83-4.51 [facility] Absolute neutrophil countOrd ered By: Clinton Fowler on 01-01-2025 Neutrophils (Bld) [#/Vol] 3.3 10*3/uL 2.0-7.7 [facility] Anion gap in Serum or Plasma Ordered By: Clinton Fowler on 01-01-2025 Anion gap [Moles/Vol] 10 mmol/L 5-15 [facility] Automated lymphocyte count a s percentage of total leukocytesOrdered By: Clinton Fowler on 01-01-2025 Lymphocytes/100 WBC Auto (Unsp spec) 32.7 % -41 [facility] BUN/creatinine ratioOrdered By: Clinton Fowler on 01-01-2025 Urea nitrogen/Creatinine [Mass ratio] 19.7 mg/mg 10- [facility] Basophil percentageOrdered B y: Clinton Fowler on 01-01-2025 Basophils/100 WBC (Bld) 1.4 % High 0-1 [facility] Bilirubin, totalOrdered By: Clinton Fowler on 01-01-2025 Bilirubin [Mass/Vol] 0.38 mg/dL 0.00-1.30 [facility] CBC W/Diff, Automatedon 12-14 Absolute Lymph 2.08 X10 3/uL Normal 0.83-4.51 [facility] Comment on above: Performed By: #### L 501.4021, M200.1000 #### [facility] [address] [place], [address] Absolute Neut 3.3 X10 3/uL Normal 2.0-7.7 [facility] Comment on above: Performed By: #### L 501.4021, M200.1000 #### [facility] [address] [place], [address] Basophils/100 WBC (Bld) 1.4 % High 0-1 [facility] Comment on above: Performed By: #### L 501.4021, M200.1000 #### [facility] [address] [place], [address] Eosinophils/100 WBC (Bld) 3.3 % Normal 0-5 [facility] Comment on above: Performed By: #### L 501.4021, M200.1000 #### [facility] [address] [place], [address] Erythrocyte distribution width (RBC) [Ratio] 13.3 % Normal 11.6-14.6 [facility] Comment on above: Performed By: #### L 501.4021, M200.1000 #### [facility] [address] [place], [address] Hematocrit (Bld) [Volume fraction] 31.6 % Low 37-47 [facility] Comment on above: Performed By: #### L 501.4021, M200.1000 #### [facility] [address] [place], [address] Hemoglobin (Bld) [Mass/Vol] 10.3 g/dL Low 12.0-15. 0 [facility] Comment on above: Performed By: #### L 501.4021, M200.1000 #### [facility] [address] [place], [address] IG% 0.300 Normal 0.0-0.9 [facility] Comment on above: Result Comment: IG% - Immature Granulocytes (promyelocytes, myelocytes and metamyelocytes) > 1% indicates that a LEFT SHIFT is Present. Performed By: #### L 501.4021, M200.1000 #### [facility] [address] [place], [address] Lymphocytes/100 WBC (Bld) 32.7 % Normal 19-41 [facility] Comment on above: Performed By: #### L 501.4021, M200.1000 #### [facility] [address] [place], [address] MCH (RBC) [Entitic mass] 30.6 pg Normal 27.0-32.0 [facility] Comment on above: Performed By: #### L 501.4021, M200.1000 #### [facility] [address] [place], [address] MCHC (RBC) [Mass/Vol] 32.6 g/dL Normal 32-36 [facility] Comment on above: Performed By: #### L 501.4021, M200.1000 #### [facility] [address] [place], [address] MCV (RBC) [Entitic vol] 93.8 fL Normal 81-99 [facility] Comment on above: Performed By: #### L 501.4021, M200.1000 #### [facility] [address] [place], [address] Monocytes/100 WBC (Bld) 10.0 % Normal 0-10 [facility] Comment on above: Performed By: #### L 501.4021, M200.1000 #### [facility] [address] [place], [address] Neutrophils/100 WBC (Bld) 52.3 % Normal 47-70 [facility] Comment on above: Performed By: #### L 501.4021, M200.1000 #### [facility] [address] [place], [address] Nucleated RBC (Bld) [#/Vol] 0 10*3/uL Normal 0-5 [facility] Comment on above: Performed By: #### L 501.4021, M200.1000 #### [facility] [address] [place], [address] Platelet mean volume (Bld) [Entitic vol] 11.5 fL Normal 6.2-12.0 [facility] Comment on above: Performed By: #### L 501.4021, M200.1000 #### [facility] [address] [place], [address] Platelets (Bld) [#/Vol] 179 10*3/uL Normal 150-450 [facility] Comment on above: Performed By: #### L 501.4021, M200.1000 #### [facility] [address] [place], [address] RBC (Bld) [#/Vol] 3.37 10*6/uL Low 4.2-5.4 [facility] Comment on above: Performed By: #### L 501.4021, M200.1000 #### [facility] [address] [place], [address] RDW SD 46.0 fl High 35.1-43.9 [facility] Comment on above: Performed By: #### L 501.4021, M200.1000 #### [facility] [address] [place], [address] WBC (Bld) [#/Vol] 6.4 10*3/uL Normal 4.4-11.0 [facility] Comment on above: Performed By: #### L 501.4021, M200.1000 #### [facility] [address] [place], [address] Carbon dioxide, total [Moles /volume] in Central venous bloodOrdered By: Clinton Fowler on 01-01-2025 CO2 [Moles/Vol] 23.1 mmol/L 21.0-32.0 [facility] Chloride assayOrdered By: Bettie Fowler on 01-01-2025 Chloride [Moles/Vol] 106 mmol/L 98-108 [facility] Comprehensive Metabolic Prof ilon 01-01-2025 Albumin [Mass/Vol] 3.5 g/dL Normal 3.4-4.8 [facility] Comment on above: Performed By: #### L 501.4021, M200.1000 #### [facility] [address] [place], [address] Albumin/Globulin [Mass ratio] 1.4 {ratio} Normal 0.9-2.4 [facility] Comment on above: Performed By: #### L 501.4021, M200.1000 #### [facility] [address] [place], [address] ALK PHOS 74 U/L Normal 35-104 [facility] Comment on above: Performed By: #### L 501.4021, M200.1000 #### [facility] [address] [place], [address] ALT [Catalytic activity/Vol] 24 U/L Normal <=34 [facility] Comment on above: Performed By: #### L 501.4021, M200.1000 #### [facility] [address] [place], [address] AST [Catalytic activity/Vol] 27 U/L Normal <=31 [facility] Comment on above: Performed By: #### L 501.4021, M200.1000 #### [facility] [address] [place], [address] Bilirubin [Mass/Vol] 0.38 mg/dL Normal 0.00-1.30 [facility] Comment on above: Performed By: #### L 501.4021, M200.1000 #### [facility] [address] [place], [address] BUN/CRE 19.7 RATIO Normal 10-20 [facility] Comment on above: Performed By: #### L 501.4021, M200.1000 #### [facility] [address] [place], [address] Calcium [Mass/Vol] 9.4 mg/dL Normal 7.6-11.0 [facility] Comment on above: Performed By: #### L 501.4021, M200.1000 #### [facility] [address] [place], [address] Chloride [Moles/Vol] 106 mmol/L Normal 98-108 [facility] Comment on above: Performed By: #### L 501.4021, M200.1000 #### [facility] [address] [place], [address] CO2 [Moles/Vol] 23.1 mmol/L Normal 21.0-32.0 [facility] Comment on above: Performed By: #### L 501.4021, M200.1000 #### [facility] [address] [place], [address] Creatinine [Mass/Vol] 0.95 mg/dL Normal 0.70-1.20 [facility] Comment on above: Performed By: #### L 501.4021, M200.1000 #### [facility] [address] [place], [address] GAP 10 Normal 5-15 [facility] Comment on above: Performed By: #### L 501.4021, M200.1000 #### [facility] [address] [place], [address] GFR/1.73 sq M.predicted among non-blacks MDRD (S/P/Bld) [Vol rate/Area] 58 mL/min/{1.73_m2} Low >60 [facility] Comment on above: Result Comment: mL/m in/1.73m2 CKD-EPI Creatinine Equation (2020) Performed By: #### L 501.4021, M200.1000 #### [facility] [address] [place], [address] Globulin (S) [Mass/Vol] 2.6 g/dL Normal 2.2-4.2 [facility] Comment on above: Performed By: #### L 501.4021, M200.1000 #### [facility] [address] [place], [address] Glucose [Mass/Vol] 172 mg/dL High 70-99 [facility] Comment on above: Performed By: #### L 501.4021, M200.1000 #### [facility] [address] [place], [address] Potassium [Moles/Vol] 4.2 mmol/L Normal 3.3-5.1 [facility] Comment on above: Performed By: #### L 501.4021, M200.1000 #### [facility] [address] [place], [address] Sodium [Moles/Vol] 139 mmol/L Normal 133-145 [facility] Comment on above: Performed By: #### L 501.4021, M200.1000 #### [facility] [address] [place], [address] T PROT 6.1 g/dL Normal 5.9-8.4 [facility] Comment on above: Performed By: #### L 501.4021, M200.1000 #### [facility] [address] [place], [address] Urea nitrogen [Mass/Vol] 19 mg/dL Normal 4-19 [facility] Comment on above: Performed By: #### L 501.4021, M200.1000 #### [facility] [address] [place], [address] Eosinophil percentageOrdered By: Clinton Fowler on 01-01-2025 Eosinophils/100 WBC (Bld) 3.3 % 0-5 [facility] Erythrocyte distribution wid th ratioOrdered By: Clinton Fowler on 01-01-2025 Erythrocyte distribution width (RBC) [Ratio] 13.3 % 11.6-14.6 [facility] Erythrocyte distribution wid th standard deviationOrdered By: Clinton Fowler on 01-01-2025 Erythrocyte distribution width (RBC) [Ratio] 46.0 fl High 35.1-43.9 [facility] Glomerular filtration rate ( GFR) estimation/1.73 sq m using serum, plasma, or whole bOrdered By: Clinton Fowler on 01-01-2025 GFR/1.73 sq M.predicted among non-blacks MDRD (S/P/Bld) [Vol rate/Area] 58 mL/min/{1.73_m2} Low >60 [facility] Comment on above: mL/min/1.73m2 CKD-EP I Creatinine Equation (2020) Hematocrit Auto (Bld) [Volum e fraction]Ordered By: Clinton Fowler on 01-01-2025 Hematocrit (Bld) [Volume fraction] 31.6 % Low 37-47 [facility] Hemoglobin A1con 01-01-2025 HbA1c (Bld) [Mass fraction] 7.1 % High <=5.6 [facility] Comment on above: Result Comment: Norm al < 5.7 % Prediabetic 5.7 - 6.4 % Diabetic >or= 6.5 % Please note range changes. Performed By: #### L 501.4021, M200.1000 #### [facility] [address] [place], [address] Hemoglobin A1c percentageOrd ered By: Clinton Fowler on 01-01-2025 HbA1c (Bld) [Mass fraction] 7.1 % High <5.7 [facility] Comment on above: Normal < 5.7 % Predi abetic 5.7 - 6.4 % Diabetic >or= 6.5 % Please note range changes. Hemoglobin measurementOrdere d By: Clinton Fowler on 01-01-2025 Hemoglobin (Bld) [Mass/Vol] 10.3 g/dL Low 12.0-15. 0 [facility] Immature granulocytes/100 WB C Auto (Bld)Ordered By: Clinton Fowler on 01-01-2025 Immature granulocytes/100 WBC (Bld) 0.300 % 0.0-0.9 [facility] Comment on above: IG% - Immature Granu locytes (promyelocytes, myelocytes and metamyelocytes) > 1% indicates that a LEFT SHIFT is Present. Laboratory - Chemistry and C hemistry - challengeOrdered By: Clinton Fowler on 01-01-2025 AST [Catalytic activity/Vol] 27 U/L <32 [facility] MCV (mean corpuscular volume ) determinationOrdered By: Clinton Fowler on 01-01-2025 MCV (RBC) [Entitic vol] 93.8 fL 81-99 [facility] Mean corpuscular hemoglobin (MCH) determinationOrdered By: Clinton Fowler on 01-01-2025 MCH (RBC) [Entitic mass] 30.6 pg 27.0-32.0 [facility] Mean corpuscular hemoglobin concentration (MCHC) determinationOrdered By: Clinton Fowler on 01-01-2025 MCHC (RBC) [Mass/Vol] 32.6 g/dL 32-36 [facility] Mean platelet volume determi nationOrdered By: Clinton Fowler on 01-01-2025 Platelet mean volume (Bld) [Entitic vol] 11.5 fL 6.2-12.0 [facility] Monocyte percentageOrdered B y: Clinton Fowler on 01-01-2025 Monocytes/100 WBC (Bld) 10.0 % 0-10 [facility] Neutrophil percentageOrdered By: Clinton Fowler on 01-01-2025 Neutrophils/100 WBC (Bld) 52.3 % 47-70 [facility] Nucleated red blood cell per centageOrdered By: Clinton Fowler on 01-01-2025 Nucleated RBC/100 WBC (Bld) [Ratio] 0 % 0-5 [facility] Platelet countOrdered By: Bettie Fowler on 01-01-2025 Platelets (Bld) [#/Vol] 179 10*3/uL 150-450 [facility] Potassium measurement (mass/ volume)Ordered By: Clinton Fowler on 01-01-2025 Potassium (Unsp spec) [Mass/Vol] 4.2 mmol/L 3.3-5.1 [facility] RBC Auto (Bld) [#/Vol]Ordere d By: Clinton Fowler on 01-01-2025 RBC (Bld) [#/Vol] 3.37 10*6/uL Low 4.2-5.4 [facility] Serum creatinine measurement (mass/volume)Ordered By: Clinton Fowler on 01-01-2025 Creatinine [Mass/Vol] 0.95 mg/dL 0.70-1.20 [facility] Serum globulin measurementOr dered By: Clinton Fowler on 01-01-2025 Globulin (S) [Mass/Vol] 2.6 g/dL 2.2-4.2 [facility] Serum glucose measurement (m ass/volume)Ordered By: Clinton Fowler on 01-01-2025 Glucose [Mass/Vol] 172 mg/dL High 70-99 [facility] Serum or plasma alanine lay otransferase (ALT) measurementOrdered By: Clinton Fowler on 01-01-2025 ALT [Catalytic activity/Vol] 24 U/L <35 [facility] Serum or plasma albumin beck urement (mass/volume)Ordered By: Clinton Fowler on 01-01-2025 Albumin [Mass/Vol] 3.5 g/dL 3.4-4.8 [facility] Serum or plasma albumin/glob ulin mass ratioOrdered By: Clinton Fowler on 01-01-2025 Albumin/Globulin [Mass ratio] 1.4 {ratio} 0.9-2.4 [facility] Serum or plasma alkaline hector sphatase measurementOrdered By: Clinton Fowler on 01-01-2025 ALP [Catalytic activity/Vol] 74 U/L 35-104 [facility] Serum or plasma calcium beck urement (mass/volume)Ordered By: Clinton Fowler on 01-01-2025 Calcium [Mass/Vol] 9.4 mg/dL 7.6-11.0 [facility] Serum or plasma urea nitroge n measurement (mass/volume)Ordered By: Clinton Fowler on 01-01-2025 Urea nitrogen [Mass/Vol] 19 mg/dL 4-19 [facility] Sodium levelOrdered By: Clinton Fowler on 01-01-2025 Sodium [Moles/Vol] 139 mmol/L 133-145 [facility] Total proteinOrdered By: Brynn Fowler on 01-01-2025 Protein [Mass/Vol] 6.1 g/dL 5.9-8.4 [facility] White blood cell (WBC) count Ordered By: Clinton Fowler on 01-01-2025 WBC (Bld) [#/Vol] 6.4 10*3/uL 4.4-11.0 [facility] Gastroenterology Visit Repor ton 12-11-2024 Gastroenterology Visit Report [facility] Gastroenterology [address] [place] [address] OFFICE VISIT Date of Service: 12/11/24 MR#: [id number] Acct: [id number] Name: LIZA HANCOCK Kimmy Rep #: [id number] : 1935 Provider: Hung Adames DO Age/Sex: 89/F [place] [facility] [place]: [place] Intake Vital Signs 06/07/23 22:34 [...] QHS cholesterol #30 tabs 12/03/17 12/11/24 Rx bznhbexo-pft-ubdie acid 0.4 1 ea PO BID supplement [...] 12/11/24 Rx monohydrate/macrocrys tals 100 mg capsule emlcaj-xarfgsdj-bxpsg se 3 cap PO .aqc #300 caps [...] CRP, TS (more content not included)... Normal [facility] Urine Cultureon 06-30-2024 [facility] Presumptive E. coli Latexo Count >100,000 Presumptive E. coli: REACTION Ampicillin [...] TMP SMX Islt JIMI <=20 S Normal [facility] Comment on above: Performed By: #### M 100.2200 ####[facility] [address] [place], [address] Urine Cultureon 06-29-2024 [facility] UNABLE TO CHANGE INTERFACE TO CLEAN CATCH Urine Culture Normal [facility] Comment on above: Performed By: #### M 100.2200 ####[facility] [id number] [place], [address] Abdomen/Pelvis without Conto n 06-28-2024 Abdomen/Pelvis without Cont [facility] Imaging Services [address] [place], [place] [id number] [phone] Abdomen/Pelvis without Cont MR#: [id number] Acct: [id number] Name: LIZA HANCOCK Rep #: [id number] : 1935 F 89 From: Lauren Sahni MD PCP: Dr. Clinton Fowler, DO Status: REG ER Study: Abdomen/Pelvis without Cont Date of Exam: 06/15 11/06 Exam# [id number] Ordering Dr: Nikita Alvarado MD [id number] INDICATION: Right lower quadrant pain. PATIENT HAS [...] Nikita Alvarado MD; Dr. Clinton Fowler DO Shoe Laster: Signed Normal [facility] CBC W/Diff, Automatedon 06-15 Absolute Lymph 2.45 X10 3/uL Normal 0.83-4.51 [facility] Comment on above: Performed By: #### L 100.0100, L500.4050 #### [facility] [address] [place], [address] Absolute Neut 4.5 X10 3/uL Normal 2.0-7.7 [facility] Comment on above: Performed By: #### L 100.0100, L500.4050 #### [facility] [address] [place], [address] Basophils/100 WBC (Bld) 0.9 % Normal 0-1 [facility] Comment on above: Performed By: #### L 100.0100, L500.4050 #### [facility] [address] [place], [address] Eosinophils/100 WBC (Bld) 3.7 % Normal 0-5 [facility] Comment on above: Performed By: #### L 100.0100, L500.4050 #### [facility] [address] [place], [address] Erythrocyte distribution width (RBC) [Ratio] 13.2 % Normal 11.6-14.6 [facility] Comment on above: Performed By: #### L 100.0100, L500.4050 #### [facility] [address] [place], [address] Hematocrit (Bld) [Volume fraction] 33.9 % Low 37-47 [facility] Comment on above: Performed By: #### L 100.0100, L500.4050 #### [facility] [address] [place], [address] Hemoglobin (Bld) [Mass/Vol] 11.2 g/dL Low 12.0-15. 0 [facility] Comment on above: Performed By: #### L 100.0100, L500.4050 #### [facility] [address] [place], [address] IG% 0.600 Normal 0.0-0.9 [facility] Comment on above: Result Comment: IG% - Immature Granulocytes (promyelocytes, myelocytes and metamyelocytes) > 1% indicates that a LEFT SHIFT is Present. Performed By: #### L 100.0100, L500.4050 #### [facility] [address] [place], [address] Lymphocytes/100 WBC (Bld) 30.6 % Normal 19-41 [facility] Comment on above: Performed By: #### L 100.0100, L500.4050 #### [facility] [address] [place], [address] MCH (RBC) [Entitic mass] 31.6 pg Normal 27.0-32.0 [facility] Comment on above: Performed By: #### L 100.0100, L500.4050 #### [facility] [address] [place], [address] MCHC (RBC) [Mass/Vol] 33.0 g/dL Normal 32-36 [facility] Comment on above: Performed By: #### L 100.0100, L500.4050 #### [facility] [address] [place], [address] MCV (RBC) [Entitic vol] 95.8 fL Normal 81-99 [facility] Comment on above: Performed By: #### L 100.0100, L500.4050 #### [facility] [address] [place], [address] Monocytes/100 WBC (Bld) 8.5 % Normal 0-10 [facility] Comment on above: Performed By: #### L 100.0100, L500.4050 #### [facility] [address] [place], [address] Neutrophils/100 WBC (Bld) 55.7 % Normal 47-70 [facility] Comment on above: Performed By: #### L 100.0100, L500.4050 #### [facility] [address] [place], [address] Nucleated RBC (Bld) [#/Vol] 0 10*3/uL Normal 0-5 [facility] Comment on above: Performed By: #### L 100.0100, L500.4050 #### [facility] [address] [place], [address] Platelet mean volume (Bld) [Entitic vol] 10.4 fL Normal 6.2-12.0 [facility] Comment on above: Performed By: #### L 100.0100, L500.4050 #### [facility] [address] [place], [address] Platelets (Bld) [#/Vol] 208 10*3/uL Normal 150-450 [facility] Comment on above: Performed By: #### L 100.0100, L500.4050 #### [facility] [address] [place], [address] RBC (Bld) [#/Vol] 3.54 10*6/uL Low 4.2-5.4 [facility] Comment on above: Performed By: #### L 100.0100, L500.4050 #### [facility] [address] [place], [address] RDW SD 46.5 fl High 35.1-43.9 [facility] Comment on above: Performed By: #### L 100.0100, L500.4050 #### [facility] [address] [place], [address] WBC (Bld) [#/Vol] 8.0 10*3/uL Normal 4.4-11.0 [facility] Comment on above: Performed By: #### L 100.0100, L500.4050 #### [facility] [address] [place], [address] Comprehensive Metabolic Prof [facility] 06-28-2024 Albumin [Mass/Vol] 3.3 g/dL Normal 3.2-5.0 [facility] Comment on above: Performed By: #### L 100.0100, L500.4050 #### [facility] [address] [place], [address] Albumin/Globulin [Mass ratio] 1.0 {ratio} Normal 0.9-2.4 [facility] Comment on above: Performed By: #### L 100.0100, L500.4050 #### [facility] [address] [place], [address] ALK P 79 U/L Normal 45-117 [facility] Comment on above: Performed By: #### L 100.0100, L500.4050 #### [facility] [address] [place], [address] ALT [Catalytic activity/Vol] 24 U/L Normal 13-56 [facility] Comment on above: Performed By: #### L 100.0100, L500.4050 #### [facility] [address] [place], [address] AST [Catalytic activity/Vol] 19 U/L Normal 15-37 [facility] Comment on above: Performed By: #### L 100.0100, L500.4050 #### [facility] [address] [place], [address] Bilirubin [Mass/Vol] 0.30 mg/dL Normal 0.20-1.00 [facility] Comment on above: Result Comment: For patients on eltrombopag therapy, use of Dimension [place] TBIL is not recommended. Performed By: #### L 100.0100, L500.4050 #### [facility] [address] [place], [address] BUN/CRE 26.7 RATIO High 10-20 [facility] Comment on above: Performed By: #### L 100.0100, L500.4050 #### [facility] [address] [place], [address] CA,Total 9.0 mg/dL Normal 8.5-10.1 [facility] Comment on above: Performed By: #### L 100.0100, L500.4050 #### [facility] [address] [place], [address] Chloride [Moles/Vol] 107 mmol/L Normal 98-107 [facility] Comment on above: Performed By: #### L 100.0100, L500.4050 #### [facility] [address] [place], [address] CO2 [Moles/Vol] 30.0 mmol/L Normal 21.0-32.0 [facility] Comment on above: Performed By: #### L 100.0100, L500.4050 #### [facility] [address] [place], [address] Creatinine [Mass/Vol] 1.05 mg/dL High 0.55-1.02 [facility] Comment on above: Result Comment: The validity of the calculated GFR GFRAA in patients over 70 years has not been determined. Clinical correlation is essential. Performed By: #### L 100.0100, L500.4050 #### [facility] [address] [place], [address] ECRCL 37.79 ml/min Normal [facility] Comment on above: Performed By: #### L 100.0100, L500.4050 #### [facility] [address] [place], [address] EST GFR - AA 64 mL/min Normal >60 [facility] Comment on above: Result Comment: Afri can [place] GFR Calc Performed By: #### L 100.0100, L500.4050 #### [facility] [address] [place], [address] GAP 1 Low 5-15 [facility] Comment on above: Performed By: #### L 100.0100, L500.4050 #### [facility] [address] [place], [address] GFR/1.73 sq M.predicted among non-blacks MDRD (S/P/Bld) [Vol rate/Area] 53 mL/min/{1.73_m2} Low >60 [facility] Comment on above: Result Comment: Non- GFR Calc Performed By: #### L 100.0100, L500.4050 #### [facility] [address] [place], [address] Globulin (S) [Mass/Vol] 3.2 g/dL Normal 2.2-4.2 [facility] Comment on above: Performed By: #### L 100.0100, L500.4050 #### [facility] [address] [place], [address] Glucose [Mass/Vol] 176 mg/dL High 74-106 [facility] Comment on above: Result Comment: Fast ing Glucose result greater than or equal to 126 mg/dL suggests DIABETES MELLITUS per A.D.A. criteria. Performed By: #### L 100.0100, L500.4050 #### [facility] [address] [place], [address] Potassium [Moles/Vol] 4.4 mmol/L Normal 3.5-5.1 [facility] Comment on above: Performed By: #### L 100.0100, L500.4050 #### [facility] [address] [place], [address] Sodium [Moles/Vol] 139 mmol/L Normal 136-145 [facility] Comment on above: Performed By: #### L 100.0100, L500.4050 #### [facility] [address] [place], [address] T PROT 6.5 g/dL Normal 6.4-8.2 [facility] Comment on above: Performed By: #### L 100.0100, L500.4050 #### [facility] [address] [place], [address] Urea nitrogen [Mass/Vol] 28 mg/dL High 7-18 [facility] Comment on above: Performed By: #### L 100.0100, L500.4050 #### [facility] [address] [place], [address] Emergency Department Summary on 06-28-2024 Emergency Department Summary [facility] Medical Records Department [address] [place] [address] Emergency Department Summary 06/28/24 MR#: [id number] Acct: [id number] Name: LIZA HANCOCK Rep #: [id number] : 1935 89 From: Nikita Alvarado MD [...] today. She ate earlier without any problem. [facility] Medical History GERD (gastroesophageal reflux disease) [...] QHS cholesterol #30 tabs 12/03/17 01/11/23 Rx uqqqietv-vfw-ltvtc acid 0.4 1 ea PO BID supplement [...] pain 06/07/23 Unknown History (Tylenol Extra Strength) thnbpg-pctdhcof-szsec se See Rx Instructions PO .COMPLEX 07/02/23 [...] and cl (more content not included)... Normal [facility] Urinalysis, Completeon 06-28 BACTERIA 3+ /hpf Normal None Seen [facility] Comment on above: Order Comment: LUCIA TER SPECIMEN Performed By: #### L 400.0001 #### [facility] [address] [place], [address] EPI,SQUAMOUS 0-5 SEEN Normal 5-10 [facility] Comment on above: Order Comment: LUCIA TER SPECIMEN Performed By: #### L 400.0001 #### [facility] [address] [place], [address] Mucus Ql (Urine sed) 1+ /hpf Normal [facility] Comment on above: Order Comment: LUCIA TER SPECIMEN Performed By: #### L 400.0001 #### [facility] [address] [place], [address] WBC 5-10 SEEN Normal 0-5 [facility] Comment on above: Order Comment: LUCIA TER SPECIMEN Performed By: #### L 400.0001 #### [facility] [address] [place], [address] RBC 0 SEEN Normal 0-5 [facility] Comment on above: Order Comment: LUCIA TER SPECIMEN Performed By: #### L 400.0001 #### [facility] [address] [place], [address] Gastroenterology Visit Repor ton 06-09-2024 Gastroenterology Visit Report [facility] Gastroenterology [address] [place] [address] OFFICE VISIT Date of Service: 06/09/24 MR#: [id number] Acct: [id number] Name: LIZA HANCOCK Rep #: [id number] : 1935 Provider: Hung Adames DO Age/Sex: 89/F [place] [facility] [place] Status: Signed Intake Vital Signs 06/07/23 [...] fibroid uterus; pulmonary basilar atelectasis versus scarring. [facility] hospitalization 09.16.22-09.20.22 [facility] ED presentation for change in mental [...] between Fr (more content not included)... Normal [facility] Culture, urineOrdered By: Bettie Fowler on 09-28-2023 Bacteria identified Cx Nom (U) Klebsiella oxytoca [facility] Absolute lymphocyte countOrd ered By: Nikki Jacques on 06-07-2023 Lymphocytes Auto (Unsp spec) [#/Vol] 2.56 10*3/uL 0.83-4.51 [facility] Basophil percentageOrdered B y: Nikki Jacques on 06-07-2023 Basophils/100 WBC (Bld) 1.1 % 0-1 [facility] Chloride [Moles/Vol] 102 mmol/L 98-107 [facility] Eosinophils/100 WBC (Bld) 4.8 % 0-5 [facility] Glucose [Mass/Vol] 287 mg/dL 74-106 [facility] Comment on above: Glucose result great er than or equal to 200 mg/dLsuggests DIABETES MELLITUS per A.D.A. criteria. Neutrophils (Bld) [#/Vol] 2.8 10*3/uL 2.0-7.7 [facility] Neutrophils/100 WBC (Bld) 43.4 % 47-70 [facility] Potassium [Moles/Vol] 4.1 mmol/L 3.5-5.1 [facility] Sodium [Moles/Vol] 134 mmol/L 136-145 [facility] WBC (Bld) [#/Vol] 6.4 10*3/uL 4.4-11.0 [facility] Blood erythrocytes count (nu mber/volume)Ordered By: Nikki Jacques on 06-07-2023 RBC (Bld) [#/Vol] 3.26 10*6/uL 4.2-5.4 [facility] Blood hemoglobin measurement (mass/volume)Ordered By: Nikki Jacques on 06-07-2023 Hemoglobin (Bld) [Mass/Vol] 9.6 g/dL 12.0-15. 0 [facility] Blood lymphocytes/100 leukoc ytesOrdered By: Nikki Jacques on 06-07-2023 Lymphocytes/100 WBC (Bld) 39.9 % 19-41 [facility] Blood monocytes/100 leukocyt esOrdered By: Nikki Jacques on 06-07-2023 Monocytes/100 WBC (Bld) 10.5 % 0-10 [facility] Blood platelet adequacy dete ction by light microscopyOrdered By: Nikki Jacques on 06-07-2023 Platelets LM Ql (Bld) MOD DEC ADEQ [facility] Blood platelet mean volumeOr dered By: Nikki Jacques on 06-07-2023 Platelet mean volume (Bld) [Entitic vol] 12.1 fL 6.2-12.0 [facility] Determination of erythrocyte mean corpuscular volume (MCV)Ordered By: Nikki Jacques on 06-07-2023 MCV (RBC) [Entitic vol] 90.5 fL 81-99 [facility] Hematocrit Auto (Bld) [Volum e fraction]Ordered By: Nikki Jacques on 06-07-2023 Hematocrit (Bld) [Volume fraction] 29.5 % 37-47 [facility] - Chemistry and C hemistry - challengeOrdered By: Nikki Jacques on 06-07-2023 CO2 [Moles/Vol] 27.0 mmol/L 21.0-32.0 [facility] Urea nitrogen/Creatinine [Mass ratio] 15.7 mg/mg 10-20 [facility] - Hematology and Cell countsOrdered By: Nikki Jacques on 06-07-2023 Erythrocyte distribution width (RBC) [Entitic vol] 44.2 fL 35.1-43.9 [facility] Erythrocyte distribution width (RBC) [Ratio] 13.2 % 11.6-14.6 [facility] Immature granulocytes/100 WBC (Bld) 0.300 % 0.0-0.9 [facility] Comment on above: IG% - Immature Granu locytes (promyelocytes, myelocytes and metamyelocytes) > 1% indicates that a LEFT SHIFT is Present. MCH (RBC) [Entitic mass] 29.4 pg 27.0-32.0 [facility] Nucleated RBC/100 WBC (Bld) [Ratio] 0 % 0-5 [facility] MCHC Auto (RBC) [Mass/Vol]Or dered By: Nikki Jacques on 06-07-2023 MCHC (RBC) [Mass/Vol] 32.5 g/dL 32-36 [facility] No Panel InformationOrdered By: Nikki Jacques on 06-07-2023 Estimated Creatinine Clearance Calc 30.36 ml/min [facility] Estimated GFR (MDRD) Amer 62 mL/min >60 [facility] Comment on above: GFR Calc Estimated GFR (MDRD) Non-Af Amer 51 mL/min >60 [facility] Comment on above: Non- GFR Calc Troponin I High Sensitivity 9 pg/mL 3.0-54.0 [facility] Comment on above: Please Note: New Mesha t Units and Gender Specific Reference Ranges. For more information see Policy Stat Procedure [place] High Sensitivity Troponin (TNIH) and attachments. Platelets bldOrdered By: Selin Jacques on 06-07-2023 Platelets (Bld) [#/Vol] 77 10*3/uL 150-450 [facility] Serum or plasma calcium beck urement (mass/volume)Ordered By: Nikki Jacques on 06-07-2023 Calcium [Mass/Vol] 8.1 mg/dL 8.5-10.1 [facility] Serum or plasma creatinine m easurement (mass/volume)Ordered By: Nikki Jacques on 06-07-2023 Creatinine [Mass/Vol] 1.08 mg/dL 0.55-1.02 [facility] Comment on above: The validity of the calculated GFR & GFRAA in patients over 70 years has not been determined. Clinical correlation is essential. Serum or plasma urea nitroge n measurement (mass/volume)Ordered By: Nikki Jacques on 06-07-2023 Urea nitrogen [Mass/Vol] 17 mg/dL 7-18 [facility] Thin prep Papanicolaou smear with manual screeningOrdered By: Nikki Jacques on 06-07-2023 Thin prep Papanicolaou smear with manual screening 5 5-15 [facility] Culture, urineOrdered By: Bettie Fowler on 04-27-2023 Bacteria identified Cx Nom (U) Proteus mirabilis [facility] Bacteria identified Cx Nom (U) Escherichia coli [facility] Bacteria identified Cx Nom (U) Proteus mirabilis [facility] Bacteria identified Cx Nom (U) Escherichia coli [facility] Absolute lymphocyte countOrd ered By: Clinton Fowler on 04-25-2023 Lymphocytes Auto (Unsp spec) [#/Vol] 1.81 10*3/uL 0.83-4.51 [facility] Basophil percentageOrdered B y: Clinton Fowler on 04-25-2023 Basophils/100 WBC (Bld) 1.0 % 0-1 [facility] Chloride [Moles/Vol] 101 mmol/L 98-107 [facility] Eosinophils/100 WBC (Bld) 2.2 % 0-5 [facility] Glucose [Mass/Vol] 101 mg/dL 74-106 [facility] Comment on above: Fasting Glucose resu lt from 100 to 125 mg/dL suggests IMPAIRED HOMEOSTASIS per A.D.A. criteria. Neutrophils (Bld) [#/Vol] 5.5 10*3/uL 2.0-7.7 [facility] Neutrophils/100 WBC (Bld) 66.2 % 47-70 [facility] Potassium [Moles/Vol] 4.0 mmol/L 3.5-5.1 [facility] Sodium [Moles/Vol] 133 mmol/L 136-145 [facility] WBC (Bld) [#/Vol] 8.3 10*3/uL 4.4-11.0 [facility] Blood erythrocytes count (nu mber/volume)Ordered By: Clinton Fowler on 04-25-2023 RBC (Bld) [#/Vol] 3.81 10*6/uL 4.2-5.4 [facility] Blood hemoglobin measurement (mass/volume)Ordered By: Clinton Fowler on 04-25-2023 Hemoglobin (Bld) [Mass/Vol] 11.4 g/dL 12.0-15. 0 [facility] Blood lymphocytes/100 leukoc ytesOrdered By: Clinton Fowler on 04-25-2023 Lymphocytes/100 WBC (Bld) 21.8 % 19-41 [facility] Blood monocytes/100 leukocyt esOrdered By: Clinton Fowler on 04-25-2023 Monocytes/100 WBC (Bld) 8.4 % 0-10 [facility] Blood platelet mean volumeOr dered By: Clinton Fowler on 04-25-2023 Platelet mean volume (Bld) [Entitic vol] 10.9 fL 6.2-12.0 [facility] Determination of erythrocyte mean corpuscular volume (MCV)Ordered By: Clinton Fowler on 04-25-2023 MCV (RBC) [Entitic vol] 92.1 fL 81-99 [facility] Hematocrit Auto (Bld) [Volum e fraction]Ordered By: Clinton Fowler on 04-25-2023 Hematocrit (Bld) [Volume fraction] 35.1 % 37-47 [facility] Iron measurement (mass/mass) Ordered By: Clinton Fowler on 04-25-2023 Iron (Unsp spec) [Mass/Mass] 44 ug/dL 50-170 [facility] - Chemistry and C hemistry - challengeOrdered By: Clinton Fowler on 04-25-2023 CO2 [Moles/Vol] 25.0 mmol/L 21.0-32.0 [facility] Urea nitrogen/Creatinine [Mass ratio] 20.4 mg/mg 10-20 [facility] - Hematology and Cell countsOrdered By: Clinton Fowler on 04-25-2023 Erythrocyte distribution width (RBC) [Entitic vol] 42.7 fL 35.1-43.9 [facility] Erythrocyte distribution width (RBC) [Ratio] 12.7 % 11.6-14.6 [facility] Immature granulocytes/100 WBC (Bld) 0.400 % 0.0-0.9 [facility] Comment on above: IG% - Immature Granu locytes (promyelocytes, myelocytes and metamyelocytes) > 1% indicates that a LEFT SHIFT is Present. MCH (RBC) [Entitic mass] 29.9 pg 27.0-32.0 [facility] Nucleated RBC/100 WBC (Bld) [Ratio] 0 % 0-5 [facility] MCHC Auto (RBC) [Mass/Vol]Or dered By: Clinton Fowler on 04-25-2023 MCHC (RBC) [Mass/Vol] 32.5 g/dL 32-36 [facility] No Panel InformationOrdered By: Clinton Fowler on 04-25-2023 Estimated GFR (MDRD) Amer 65 mL/min >60 [facility] Comment on above: GFR Calc Estimated GFR (MDRD) Non-Af Amer 54 mL/min >60 [facility] Comment on above: Non- GFR Calc Platelets bldOrdered By: Brynn Fowler on 04-25-2023 Platelets (Bld) [#/Vol] 251 10*3/uL 150-450 [facility] Serum or plasma calcium beck urement (mass/volume)Ordered By: Clinton Fowler on 04-25-2023 Calcium [Mass/Vol] 9.6 mg/dL 8.5-10.1 [facility] Serum or plasma creatinine m easurement (mass/volume)Ordered By: Clinton Fowler on 04-25-2023 Creatinine [Mass/Vol] 1.03 mg/dL 0.55-1.02 [facility] Comment on above: The validity of the calculated GFR & GFRAA in patients over 70 years has not been determined. Clinical correlation is essential. Serum or plasma ferritin jose carlos surement (mass/volume)Ordered By: Clinton Fowler on 04-25-2023 Ferritin [Mass/Vol] 46 ng/mL 8-252 [facility] Serum or plasma urea nitroge n measurement (mass/volume)Ordered By: Clinton Fowler on 04-25-2023 Urea nitrogen [Mass/Vol] 21 mg/dL 7-18 [facility] Thin prep Papanicolaou smear with manual screeningOrdered By: Clinton Fowler on 04-25-2023 Thin prep Papanicolaou smear with manual screening 7 5-15 [facility] Absolute lymphocyte countOrd ered By: Clinton Fowler on 01-24-2023 Lymphocytes Auto (Unsp spec) [#/Vol] 2.27 10*3/uL 0.83-4.51 [facility] Basophil percentageOrdered B y: Clinton Fowler on 01-24-2023 Basophils/100 WBC (Bld) 0.9 % 0-1 [facility] Eosinophils/100 WBC (Bld) 2.3 % 0-5 [facility] Neutrophils (Bld) [#/Vol] 3.6 10*3/uL 2.0-7.7 [facility] Neutrophils/100 WBC (Bld) 53.8 % 47-70 [facility] WBC (Bld) [#/Vol] 6.7 10*3/uL 4.4-11.0 [facility] Blood erythrocytes count (nu mber/volume)Ordered By: Clinton Fowler on 01-24-2023 RBC (Bld) [#/Vol] 2.85 10*6/uL 4.2-5.4 [facility] Blood hemoglobin measurement (mass/volume)Ordered By: Clinton Fowler on 01-24-2023 Hemoglobin (Bld) [Mass/Vol] 8.9 g/dL 12.0-15. 0 [facility] Blood lymphocytes/100 leukoc ytesOrdered By: Clinton Fowler on 01-24-2023 Lymphocytes/100 WBC (Bld) 34.1 % 19-41 [facility] Blood monocytes/100 leukocyt esOrdered By: Clinton Fowler on 01-24-2023 Monocytes/100 WBC (Bld) 8.4 % 0-10 [facility] Blood platelet mean volumeOr dered By: Clinton Fowler on 01-24-2023 Platelet mean volume (Bld) [Entitic vol] 10.5 fL 6.2-12.0 [facility] Determination of erythrocyte mean corpuscular volume (MCV)Ordered By: Clinton Fowler on 01-24-2023 MCV (RBC) [Entitic vol] 96.8 fL 81-99 [facility] Hematocrit Auto (Bld) [Volum e fraction]Ordered By: Clinton Fowler on 01-24-2023 Hematocrit (Bld) [Volume fraction] 27.6 % 37-47 [facility] Iron measurement (mass/mass) Ordered By: Clinton Fowler on 01-24-2023 Iron (Unsp spec) [Mass/Mass] 41 ug/dL 50-170 [facility] Laboratory - Chemistry and C hemistry - challengeOrdered By: Clinton Fowler on 01-24-2023 Cobalamin (Vitamin B12) [Mass/Vol] 1536 pg/mL 211-911 [facility] - Hematology and Cell countsOrdered By: Clinton Fowler on 01-24-2023 Erythrocyte distribution width (RBC) [Entitic vol] 49.1 fL 35.1-43.9 [facility] Erythrocyte distribution width (RBC) [Ratio] 13.9 % 11.6-14.6 [facility] Immature granulocytes/100 WBC (Bld) 0.500 % 0.0-0.9 [facility] Comment on above: IG% - Immature Granu locytes (promyelocytes, myelocytes and metamyelocytes) > 1% indicates that a LEFT SHIFT is Present. MCH (RBC) [Entitic mass] 31.2 pg 27.0-32.0 [facility] Nucleated RBC/100 WBC (Bld) [Ratio] 0 % 0-5 [facility] MCHC Auto (RBC) [Mass/Vol]Or dered By: Clinton Fowlre on 01-24-2023 MCHC (RBC) [Mass/Vol] 32.2 g/dL 32-36 [facility] Platelets bldOrdered By: Brynn Fowler on 01-24-2023 Platelets (Bld) [#/Vol] 242 10*3/uL 150-450 [facility] Serum or plasma ferritin jose carlos surement (mass/volume)Ordered By: Clinton DavisDany on 01-24-2023 Ferritin [Mass/Vol] 66 ng/mL 8-252 [facility] Absolute lymphocyte countOrd ered By: Sixto Braswell on 01-14-2023 Lymphocytes Auto (Unsp spec) [#/Vol] 2.33 10*3/uL 0.83-4.51 [facility] Basophil percentageOrdered B y: Sixto Braswell on 01-14-2023 Basophils/100 WBC (Bld) 1.3 % 0-1 [facility] Chloride [Moles/Vol] 114 mmol/L 98-107 [facility] Eosinophils/100 WBC (Bld) 3.6 % 0-5 [facility] Glucose [Mass/Vol] 109 mg/dL 74-106 [facility] Comment on above: Fasting Glucose resu lt from 100 to 125 mg/dL suggests IMPAIRED HOMEOSTASIS per A.D.A. criteria. Neutrophils (Bld) [#/Vol] 4.1 10*3/uL 2.0-7.7 [facility] Neutrophils/100 WBC (Bld) 54.5 % 47-70 [facility] Potassium [Moles/Vol] 3.8 mmol/L 3.5-5.1 [facility] Sodium [Moles/Vol] 143 mmol/L 136-145 [facility] WBC (Bld) [#/Vol] 7.5 10*3/uL 4.4-11.0 [facility] Blood erythrocytes count (nu mber/volume)Ordered By: Sixto Braswell on 01-14-2023 RBC (Bld) [#/Vol] 2.89 10*6/uL 4.2-5.4 [facility] Blood hemoglobin measurement (mass/volume)Ordered By: Sixto Braswell on 01-14-2023 Hemoglobin (Bld) [Mass/Vol] 9.3 g/dL 12.0-15. 0 [facility] Blood lymphocytes/100 leukoc ytesOrdered By: Sixto Braswell on 01-14-2023 Lymphocytes/100 WBC (Bld) 31.1 % 19-41 [facility] Blood monocytes/100 leukocyt esOrdered By: Sixto Braswell on 01-14-2023 Monocytes/100 WBC (Bld) 9.1 % 0-10 [facility] Blood platelet mean volumeOr dered By: Sixto Braswell on 01-14-2023 Platelet mean volume (Bld) [Entitic vol] 10.2 fL 6.2-12.0 [facility] Determination of erythrocyte mean corpuscular volume (MCV)Ordered By: Sixto Braswell on 01-14-2023 MCV (RBC) [Entitic vol] 93.1 fL 81-99 [facility] Hematocrit Auto (Bld) [Volum e fraction]Ordered By: Sixto Braswell on 01-14-2023 Hematocrit (Bld) [Volume fraction] 26.9 % 37-47 [facility] Laboratory - Chemistry and C hemistry - challengeOrdered By: Sixto Braswell on 01-14-2023 CO2 [Moles/Vol] 25.0 mmol/L 21.0-32.0 [facility] Urea nitrogen/Creatinine [Mass ratio] 18.1 mg/mg 10-20 [facility] Laboratory - Hematology and Cell countsOrdered By: Sixto Braswell on 01-14-2023 Erythrocyte distribution width (RBC) [Entitic vol] 44.9 fL 35.1-43.9 [facility] Erythrocyte distribution width (RBC) [Ratio] 13.2 % 11.6-14.6 [facility] Immature granulocytes/100 WBC (Bld) 0.400 % 0.0-0.9 [facility] Comment on above: IG% - Immature Granu locytes (promyelocytes, myelocytes and metamyelocytes) > 1% indicates that a LEFT SHIFT is Present. MCH (RBC) [Entitic mass] 31.1 pg 27.0-32.0 [facility] Nucleated RBC/100 WBC (Bld) [Ratio] 0 % 0-5 [facility] MCHC Auto (RBC) [Mass/Vol]Or dered By: Sixto Braswell on 01-14-2023 MCHC (RBC) [Mass/Vol] 33.5 g/dL 32-36 [facility] No Panel InformationOrdered By: Sixto Braswell on 01-14-2023 Estimated Creatinine Clearance Calc 49.62 ml/min [facility] Estimated GFR (MDRD) Amer 78 mL/min >60 [facility] Comment on above: GFR Calc Estimated GFR (MDRD) Non-Af Amer 64 mL/min >60 [facility] Comment on above: Non- GFR Calc Platelets bldOrdered By: Debbie Braswell on 01-14-2023 Platelets (Bld) [#/Vol] 197 10*3/uL 150-450 [facility] Serum or plasma calcium beck urement (mass/volume)Ordered By: Sixto Braswell on 01-14-2023 Calcium [Mass/Vol] 8.6 mg/dL 8.5-10.1 [facility] Serum or plasma creatinine m easurement (mass/volume)Ordered By: Sixto Braswell on 01-14-2023 Creatinine [Mass/Vol] 0.88 mg/dL 0.55-1.02 [facility] Comment on above: The validity of the calculated GFR & GFRAA in patients over 70 years has not been determined. Clinical correlation is essential. Serum or plasma urea nitroge n measurement (mass/volume)Ordered By: Sixto Braswell on 01-14-2023 Urea nitrogen [Mass/Vol] 16 mg/dL 7-18 [facility] Thin prep Papanicolaou smear with manual screeningOrdered By: Sixto Braswell on 01-14-2023 Thin prep Papanicolaou smear with manual screening 4 5-15 [facility] Clostridium difficile detect ion by polymerase chain reactionOrdered By: Isiah Winn on 01-13-2023 C. difficile DNA ANALISA+probe Ql (Unsp spec) [facility] Ova and parasitesOrdered By: Isiah Winn on 01-13-2023 Ova and parasites identified LM Nom (Unsp spec) [facility] Stool enteric pathogen panel by probe and target amplification methodOrdered By: Isiah Winn on 01-13-2023 Gastrointestinal pathogens panel ANALISA+probe (Stl) [facility] Stool lactoferrin detection by immunoassayOrdered By: Isiah Winn on 01-13-2023 Lactoferrin IA Ql (Stl) [facility] Basophil percentageOrdered B y: Isiah Winn on 01-12-2023 Basophil percentage 0-5 SEEN /hpf 0-5 [facility] Bilirubin [Mass/Vol] 0.40 mg/dL 0.20-1.00 [facility] Comment on above: For patients on eltr ombopag therapy, use of Dimension [place] TBIL is not recommended. Protein [Mass/Vol] 5.9 g/dL 6.4-8.2 [facility] Bilirubin Test strip Ql (U)O rdered By: Isiah Winn on 01-12-2023 Bilirubin Ql (U) 1 mg/dL Negative [facility] Comment on above: COLOR OF URINE MAY A FFECT DIPSTICK RESULTS. INR in Blood by Coagulation assayOrdered By: Isiah Winn on 01-12-2023 INR Coag (Bld) [Relative time] 1.1 {INR} [facility] Ketones Test strip Ql (U)Ord ered By: Isiah Winn on 01-12-2023 Ketones Ql (U) Negative Negative [facility] Laboratory - Chemistry and C hemistry - challengeOrdered By: Isiah Winn on 01-12-2023 ALP [Catalytic activity/Vol] 94 U/L 45-117 [facility] ALT [Catalytic activity/Vol] 26 U/L 13-56 [facility] Globulin (S) [Mass/Vol] 3.2 g/dL 2.2-4.2 [facility] Laboratory - CoagulationOrde red By: Isiah Winn on 01-12-2023 aPTT Coag (Bld) [Time] 29.4 s 24.1-36.2 [facility] PT Coag (PPP) [Time] 14.6 s 11.7-14.9 [facility] Mucus LM Ql (Urine sed)Order ed By: Isiah Winn on 01-12-2023 Mucus Ql (Urine sed) 0 SEEN /hpf [facility] Nitrite Test strip Ql (U)Ord ered By: Isiah Winn on 01-12-2023 Nitrite Ql (U) Negative Negative [facility] Protein Test strip Ql (U)Ord ered By: Isiah Winn on 01-12-2023 Protein Ql (U) Negative Negative [facility] Serum or plasma albumin beck urement (mass/volume)Ordered By: Isiah Winn on 01-12-2023 Albumin [Mass/Vol] 2.7 g/dL 3.2-5.0 [facility] Serum or plasma albumin/glob ulin mass ratioOrdered By: Isiah Winn on 01-12-2023 Albumin/Globulin [Mass ratio] 0.8 {ratio} 0.9-2.4 [facility] Squamous epithelial cells de tection in urine sediment by light microscopyOrdered By: Isiah Winn on 01-12-2023 Epithelial cells.squamous LM Ql (Urine sed) 0 SEEN /hpf 5-10 [facility] Thin prep Papanicolaou smear with manual screeningOrdered By: Isiah Winn on 01-12-2023 Thin prep Papanicolaou smear with manual screening 30 U/L 15-37 [facility] Urine blood detectionOrdered By: Isiah Winn on 01-12-2023 RBC Ql (U) Negative Negative [facility] RBC Ql (U) 0 SEEN /hpf 0-5 [facility] Urine clarityOrdered By: Cortez Winn on 01-12-2023 Clarity (U) Clear Clear [facility] Urine color determinationOrd ered By: Isiah Winn on 01-12-2023 Color (U) Yellow Yellow [facility] Urine glucose detectionOrder ed By: Isiah Winn on 01-12-2023 Glucose Ql (U) Normal mg/dl Normal [facility] Urine leukocyte esterase det ection by dipstickOrdered By: Isiah Winn on 01-12-2023 Leukocyte esterase Test strip Ql (U) 25 /ul Negative [facility] Urine pHOrdered By: Isiah Winn on 01-12-2023 pH (U) 5.0 [pH] 5.0 - 8.0 [facility] Urine sediment bacteria coun t by microscopy (number/high power field)Ordered By: Isiah Winn on 01-12-2023 Bacteria LM.HPF (Urine sed) [#/Area] 0 /[HPF] None Seen [facility] Urine specific gravity measu rementOrdered By: Isiah Winn on 01-12-2023 Specific gravity (U) [Rel density] 1.015 1.002-1.030 [facility] Urobilinogen Auto test strip Ql (U)Ordered By: Isiah Winn on 01-12-2023 Urobilinogen Ql (U) Normal mg/dl Normal [facility] Clostridium difficile detect ion by polymerase chain reactionOrdered By: Hung Adames on 10-24-2022 C. difficile DNA ANALISA+probe Ql (Unsp spec) [facility] Stool lactoferrin detection by immunoassayOrdered By: Hung Adames on 10-24-2022 Lactoferrin IA Ql (Stl) [facility] No Panel InformationOrdered By: Hung Adames on 10-23-2022 Miscellaneous Test See comment [facility] Comment on above: TEST RESULT LIMITSSt ool Culture Salmonella/Shigella Screen Result 1 No Salmonella or Shigella recovered. Campylobacter Culture Result 1 No Campylobacter species isolated. E coli Shiga Toxin EIA Negative Negative [facility]FOR[facility] AT [facility]. ORIGINAL REPORT ON FILE IN LAB CONTAINS ADDITIONAL TEST SITE INFORMATION. Stool Pancreatic Elastase < 50 >200 [facility] Comment on above: Result Units: ug Jeny st./gResults verified by repeat testing Severe Pancreatic Insufficiency: <100 Moderate Pancreatic Insufficiency: 100 - 200 Normal: >200Performed at: [facility] [id number] Director: Hi Hackett MD, Phone: [phone] Giardia Antigen (JIMI) [facility] Stool Calprotectin <16 ug/g 0-120 [facility] Comment on above: Concentration Interp retation Follow-Up<16 - 50 ug/g Normal None>50 -120 ug/g Borderline Re-evaluate in 4-6 weeks >120 ug/g Abnormal Repeat as clinically indicatedPerformed at: [facility] [id number] Director: Hi Hackett MD, Phone: [phone] Miscellaneous Test See comment [facility] Comment on above: TEST RESULT LIMITSIB [...] developed and its performance characteristics determined by [facility]. It has not been cleared or approved [...] and parasites identified LM Nom (Unsp spec) [facility] Laboratory - Microbiology an d Antimicrobial susceptibilityOrdered By: Dr. Thomas on 10-21-2022 Bacteria identified Cx Nom (Bld) [facility] - Microbiology an d Antimicrobial susceptibilityOrdered By: Dr. Thomas on 09-22-2022 Bacteria identified Cx Nom (Bld) No growth in 5 days. [facility] Absolute lymphocyte countOrd ered By: Dr. Verma on 09-20-2022 Lymphocytes Auto (Unsp spec) [#/Vol] 2.55 10*3/uL 0.83-4.51 [facility] Basophil percentageOrdered B y: Dr. Verma on 09-20-2022 Basophils/100 WBC (Bld) 0.7 % 0-1 [facility] Chloride [Moles/Vol] 102 mmol/L 98-107 [facility] Eosinophils/100 WBC (Bld) 1.5 % 0-5 [facility] Glucose [Mass/Vol] 253 mg/dL 74-106 [facility] Comment on above: Glucose result great er than or equal to 200 mg/dLsuggests DIABETES MELLITUS per A.D.A. criteria. Neutrophils (Bld) [#/Vol] 6.8 10*3/uL 2.0-7.7 [facility] Neutrophils/100 WBC (Bld) 63.8 % 47-70 [facility] Potassium [Moles/Vol] 3.6 mmol/L 3.5-5.1 [facility] Sodium [Moles/Vol] 135 mmol/L 136-145 [facility] WBC (Bld) [#/Vol] 10.7 10*3/uL 4.4-11.0 [facility] Blood erythrocytes count (nu mber/volume)Ordered By: Dr. Verma on 09-20-2022 RBC (Bld) [#/Vol] 3.79 10*6/uL 4.2-5.4 [facility] Blood hemoglobin measurement (mass/volume)Ordered By: Dr. Verma on 09-20-2022 Hemoglobin (Bld) [Mass/Vol] 11.3 g/dL 12.0-15. 0 [facility] Blood lymphocytes/100 leukoc ytesOrdered By: Dr. Verma on 09-20-2022 Lymphocytes/100 WBC (Bld) 23.9 % 19-41 [facility] Blood monocytes/100 leukocyt esOrdered By: Dr. Verma on 09-20-2022 Monocytes/100 WBC (Bld) 9.7 % 0-10 [facility] Blood platelet mean volumeOr dered By: Dr. Verma on 09-20-2022 Platelet mean volume (Bld) [Entitic vol] 10.3 fL 6.2-12.0 [facility] Determination of erythrocyte mean corpuscular volume (MCV)Ordered By: Dr. Verma on 09-20-2022 MCV (RBC) [Entitic vol] 90.8 fL 81-99 [facility] Glucose Glucometer (BldC) [M ass/Vol]Ordered By: Dr. Verma on 09-20-2022 Glucose [Mass/Vol] 240 mg/dL 74-106 [facility] Comment on above: MANAGEMENT OF PATIEN T CARE PER NURSING PROTOCOL Hematocrit Auto (Bld) [Volum e fraction]Ordered By: Dr. Verma on 09-20-2022 Hematocrit (Bld) [Volume fraction] 34.4 % 37-47 [facility] Laboratory - Chemistry and C hemistry - challengeOrdered By: Dr. Veram on 09-20-2022 CO2 [Moles/Vol] 25.0 mmol/L 21.0-32.0 [facility] Urea nitrogen/Creatinine [Mass ratio] 21.0 mg/mg 10-20 [facility] Laboratory - Hematology and Cell countsOrdered By: Dr. Verma on 09-20-2022 Erythrocyte distribution width (RBC) [Entitic vol] 42.7 fL 35.1-43.9 [facility] Erythrocyte distribution width (RBC) [Ratio] 12.8 % 11.6-14.6 [facility] Immature granulocytes/100 WBC (Bld) 0.400 % 0.0-0.9 [facility] Comment on above: IG% - Immature Granu locytes (promyelocytes, myelocytes and metamyelocytes) > 1% indicates that a LEFT SHIFT is Present. MCH (RBC) [Entitic mass] 29.8 pg 27.0-32.0 [facility] Nucleated RBC/100 WBC (Bld) [Ratio] 0 % 0-5 [facility] MCHC Auto (RBC) [Mass/Vol]Or dered By: Dr. Verma on 09-20-2022 MCHC (RBC) [Mass/Vol] 32.8 g/dL 32-36 [facility] No Panel InformationOrdered By: Dr. Verma on 09-20-2022 Estimated Creatinine Clearance Calc 35.22 ml/min [facility] Estimated GFR (MDRD) Amer 53 mL/min >60 [facility] Comment on above: GFR Calc Estimated GFR (MDRD) Non-Af Amer 44 mL/min >60 [facility] Comment on above: Non- GFR Calc Platelets bldOrdered By: Dr. Verma on 09-20-2022 Platelets (Bld) [#/Vol] 237 10*3/uL 150-450 [facility] Serum or plasma calcium beck urement (mass/volume)Ordered By: Dr. Verma on 09-20-2022 Calcium [Mass/Vol] 9.1 mg/dL 8.5-10.1 [facility] Serum or plasma creatinine m easurement (mass/volume)Ordered By: Dr. Verma on 09-20-2022 Creatinine [Mass/Vol] 1.24 mg/dL 0.55-1.02 [facility] Comment on above: The validity of the calculated GFR & GFRAA in patients over 70 years has not been determined. Clinical correlation is essential. Serum or plasma urea nitroge n measurement (mass/volume)Ordered By: Dr. Verma on 09-20-2022 Urea nitrogen [Mass/Vol] 26 mg/dL 7-18 [facility] Thin prep Papanicolaou smear with manual screeningOrdered By: Dr. Verma on 09-20-2022 Thin prep Papanicolaou smear with manual screening 8 5-15 [facility] Basophil percentageOrdered B y: Dr. Verma on 09-19-2022 Cholesterol [Mass/Vol] 114 mg/dL <200 [facility] Comment on above: <200 mg/dL Desirable 200-240 mg/dL Borderline >240 mg/dL High Risk Triglyceride [Mass/Vol] 117 mg/dL <199 [facility] Comment on above: The drugs N-Acetylcy steine and Metamizole may falsely depress this assay.Serum Triglycerides Reference Interval Normal <150 mg/dL Borderline high 150 - 199 mg/dL High 200 - 499 mg/dL Very High > or = 500 mg/dL Serum or plasma cholesterol in HDL measurement (mass/volume)Ordered By: Dr. Verma on 09-19-2022 Cholesterol in HDL [Mass/Vol] 41 mg/dL >40 [facility] Comment on above: The drugs N-Acetylcy steine and Metamizole may falsely depress this assay. Reference Range HDL <40 mg/dL Low HDL Cholesterol HDL >or= 60 mg/dL High HDL Cholesterol Serum or plasma cholesterol in VLDL measurement (mass/volume)Ordered By: Dr. Verma on 09-19-2022 Cholesterol in VLDL [Mass/Vol] 23 mg/dL 5-40 [facility] Serum or plasma low density lipoprotein (LDL) cholesterol measurement (mass/volume)Ordered By: Dr. Verma on 09-19-2022 Cholesterol in LDL [Mass/Vol] 50 mg/dL 0-130 [facility] Basophil percentageOrdered B y: Dr. Chawla on 09-18-2022 Bilirubin [Mass/Vol] 0.50 mg/dL 0.20-1.00 [facility] Comment on above: For patients on eltr ombopag therapy, use of Dimension [place] TBIL is not recommended. Protein [Mass/Vol] 6.1 g/dL 6.4-8.2 [facility] Culture, urineOrdered By: Dr Edmond Thomas on 09-18-2022 Bacteria identified Cx Nom (U) Escherichia coli [facility] Laboratory - Chemistry and C hemistry - challengeOrdered By: Dr. Chawla on 09-18-2022 ALP [Catalytic activity/Vol] 104 U/L 45-117 [facility] ALT [Catalytic activity/Vol] 26 U/L 13-56 [facility] Globulin (S) [Mass/Vol] 3.4 g/dL 2.2-4.2 [facility] Serum or plasma albumin beck urement (mass/volume)Ordered By: Dr. Chawla on 09-18-2022 Albumin [Mass/Vol] 2.7 g/dL 3.2-5.0 [facility] Serum or plasma albumin/glob ulin mass ratioOrdered By: Dr. Chawla on 09-18-2022 Albumin/Globulin [Mass ratio] 0.8 {ratio} 0.9-2.4 [facility] Thin prep Papanicolaou smear with manual screeningOrdered By: Dr. Chawla on 09-18-2022 Thin prep Papanicolaou smear with manual screening 25 U/L 15-37 [facility] Basophil percentageOrdered B y: Dr. Buckner on 09-17-2022 Basophil percentage 3.5 mg/dL 2.5-4.9 [facility] Erythrocyte sedimentation ra teOrdered By: Dr. Chawla on 09-17-2022 ESR (Bld) [Velocity] 5 mm/h 0-30 [facility] Laboratory - Chemistry and C hemistry - challengeOrdered By: Dr. Buckner on 09-17-2022 Magnesium [Mass/Vol] 1.6 mg/dL 1.6-2.6 [facility] Serum or plasma C reactive p rotein measurement (mass/volume)Ordered By: Dr. Chawla on 09-17-2022 CRP [Mass/Vol] mg/L 0.0-3.0 [facility] Comment on above: C-Reactive Protein ( CRP) provides useful information for thediagnosis, therapy and monitoring of inflammatory processesand associated diseases. For the evaluation of Relative Riskfor Cardiovascular Disease, a High Sensitivity CRP (HSCRP)should be ordered. Serum procalcitonin measurem entOrdered By: Dr. Chawla on 09-17-2022 Procalcitonin [Mass/Vol] ng/mL 0.00-0.09 [facility] Comment on above: A procalcitonin (PCT [...] Auto (Unsp spec) [#/Vol] 2.26 10*3/uL 0.83-4.51 [facility] Basophil percentageOrdered B y: Dr. Thomas on 09-16-2022 Basophil percentage 0 SEEN /hpf 0-5 [facility] Basophils/100 WBC (Bld) 0.9 % 0-1 [facility] Bilirubin [Mass/Vol] 0.40 mg/dL 0.20-1.00 [facility] Comment on above: For patients on eltr ombopag therapy, use of Dimension [place] TBIL is not recommended. Chloride [Moles/Vol] 101 mmol/L 98-107 [facility] Eosinophils/100 WBC (Bld) 1.9 % 0-5 [facility] Glucose [Mass/Vol] 337 mg/dL 74-106 [facility] Comment on above: Glucose result great er than or equal to 200 mg/dLsuggests DIABETES MELLITUS per A.D.A. criteria. Lactate [Moles/Vol] 1.9 mmol/L 0.4-2.0 [facility] Neutrophils (Bld) [#/Vol] 4.3 10*3/uL 2.0-7.7 [facility] Neutrophils/100 WBC (Bld) 57.8 % 47-70 [facility] Potassium [Moles/Vol] 4.3 mmol/L 3.5-5.1 [facility] Protein [Mass/Vol] 6.3 g/dL 6.4-8.2 [facility] Sodium [Moles/Vol] 135 mmol/L 136-145 [facility] WBC (Bld) [#/Vol] 7.5 10*3/uL 4.4-11.0 [facility] Bilirubin Test strip Ql (U)O rdered By: Dr. Thomas on 09-16-2022 Bilirubin Ql (U) Negative Negative [facility] Blood erythrocytes count (nu mber/volume)Ordered By: Dr. Thomas on 09-16-2022 RBC (Bld) [#/Vol] 3.66 10*6/uL 4.2-5.4 [facility] Blood hemoglobin measurement (mass/volume)Ordered By: Dr. Thomas on 09-16-2022 Hemoglobin (Bld) [Mass/Vol] 11.0 g/dL 12.0-15. 0 [facility] Blood lymphocytes/100 leukoc ytesOrdered By: Dr. Thomas on 09-16-2022 Lymphocytes/100 WBC (Bld) 30.3 % 19-41 [facility] Blood monocytes/100 leukocyt esOrdered By: Dr. Thomas on 09-16-2022 Monocytes/100 WBC (Bld) 8.6 % 0-10 [facility] Blood platelet mean volumeOr dered By: Dr. Thomas on 09-16-2022 Platelet mean volume (Bld) [Entitic vol] 10.1 fL 6.2-12.0 [facility] Culture, urineOrdered By: Julian Thomas on 09-16-2022 Bacteria identified Cx Nom (U) Escherichia coli [facility] Determination of erythrocyte mean corpuscular volume (MCV)Ordered By: Dr. Thomas on 09-16-2022 MCV (RBC) [Entitic vol] 95.6 fL 81-99 [facility] Hematocrit Auto (Bld) [Volum e fraction]Ordered By: Dr. Thomas on 09-16-2022 Hematocrit (Bld) [Volume fraction] 35.0 % 37-47 [facility] INR in Blood by Coagulation assayOrdered By: Dr. Thomas on 09-16-2022 INR Coag (Bld) [Relative time] 1.1 {INR} [facility] Ketones Test strip Ql (U)Ord ered By: Dr. Thomas on 09-16-2022 Ketones Ql (U) Negative Negative [facility] Laboratory - Chemistry and C hemistry - challengeOrdered By: Dr. Buckner on 09-16-2022 Cobalamin (Vitamin B12) [Mass/Vol] 999 pg/mL 211-911 [facility] Laboratory - Chemistry and C hemistry - challengeOrdered By: Dr. Thomas on 09-16-2022 ALP [Catalytic activity/Vol] 100 U/L 45-117 [facility] ALT [Catalytic activity/Vol] 25 U/L 13-56 [facility] CO2 [Moles/Vol] 28.0 mmol/L 21.0-32.0 [facility] Globulin (S) [Mass/Vol] 3.3 g/dL 2.2-4.2 [facility] Urea nitrogen/Creatinine [Mass ratio] 15.3 mg/mg 10-20 [facility] Laboratory - CoagulationOrde red By: Dr. Thomas on 09-16-2022 PT Coag (PPP) [Time] 13.6 s 11.7-14.9 [facility] Laboratory - Hematology and Cell countsOrdered By: Dr. Thomas on 09-16-2022 Erythrocyte distribution width (RBC) [Entitic vol] 44.8 fL 35.1-43.9 [facility] Erythrocyte distribution width (RBC) [Ratio] 12.8 % 11.6-14.6 [facility] Immature granulocytes/100 WBC (Bld) 0.500 % 0.0-0.9 [facility] Comment on above: IG% - Immature Granu locytes (promyelocytes, myelocytes and metamyelocytes) > 1% indicates that a LEFT SHIFT is Present. MCH (RBC) [Entitic mass] 30.1 pg 27.0-32.0 [facility] Nucleated RBC/100 WBC (Bld) [Ratio] 0 % 0-5 [facility] Laboratory - Microbiology an d Antimicrobial susceptibilityOrdered By: Moncho Thomas on 09-16-2022 Bacteria identified Cx Nom (Bld) [facility] Bacteria identified Cx Nom (Bld) No growth in 5 days. [facility] MCHC Auto (RBC) [Mass/Vol]Or dered By: Dr. Thomas on 09-16-2022 MCHC (RBC) [Mass/Vol] 31.4 g/dL 32-36 [facility] Mucus LM Ql (Urine sed)Order ed By: Dr. Thomas on 09-16-2022 Mucus Ql (Urine sed) 0 SEEN /hpf [facility] Nitrite Test strip Ql (U)Ord ered By: Dr. Thomas on 09-16-2022 Nitrite Ql (U) Positive Negative [facility] No Panel InformationOrdered By: Dr. Thomas on 09-16-2022 Estimated Creatinine Clearance Calc 33.28 ml/min [facility] Estimated GFR (MDRD) Amer 56 mL/min >60 [facility] Comment on above: GFR Calc Estimated GFR (MDRD) Non-Af Amer 46 mL/min >60 [facility] Comment on above: Non- GFR Calc No Panel InformationOrdered By: Dr. Buckner on 09-16-2022 Thyroid Stimulating Hormone (TSH) 2.42 uIU/mL 0.358-3.74 [facility] Platelets bldOrdered By: Dr. Thomas on 09-16-2022 Platelets (Bld) [#/Vol] 248 10*3/uL 150-450 [facility] Protein Test strip Ql (U)Ord ered By: Dr. Thomas on 09-16-2022 Protein Ql (U) Negative Negative [facility] Serum or plasma acetone beck urement (mass/volume)Ordered By: Dr. Thomas on 09-16-2022 Acetone [Mass/Vol] Negative NEG [facility] Serum or plasma albumin beck urement (mass/volume)Ordered By: Dr. Thomas on 09-16-2022 Albumin [Mass/Vol] 3.0 g/dL 3.2-5.0 [facility] Serum or plasma albumin/glob ulin mass ratioOrdered By: Dr. Thomas on 09-16-2022 Albumin/Globulin [Mass ratio] 0.9 {ratio} 0.9-2.4 [facility] Serum or plasma calcium beck urement (mass/volume)Ordered By: Dr. Thomas on 09-16-2022 Calcium [Mass/Vol] 9.0 mg/dL 8.5-10.1 [facility] Serum or plasma creatinine m easurement (mass/volume)Ordered By: Dr. Thomas on 09-16-2022 Creatinine [Mass/Vol] 1.18 mg/dL 0.55-1.02 [facility] Comment on above: The validity of the calculated GFR & GFRAA in patients over 70 years has not been determined. Clinical correlation is essential. Serum or plasma folate measu rement (mass/volume)Ordered By: Dr. Buckner on 09-16-2022 Folate [Mass/Vol] 40.40 ng/mL 3.1-55.4 [facility] Serum or plasma urea nitroge n measurement (mass/volume)Ordered By: Dr. Thomas on 09-16-2022 Urea nitrogen [Mass/Vol] 18 mg/dL 7-18 [facility] Squamous epithelial cells de tection in urine sediment by light microscopyOrdered By: Dr. Thomas on 09-16-2022 Epithelial cells.squamous LM Ql (Urine sed) 0 SEEN /hpf 5-10 [facility] Thin prep Papanicolaou smear with manual screeningOrdered By: Dr. Thomas on 09-16-2022 Thin prep Papanicolaou smear with manual screening 24 U/L 15-37 [facility] Thin prep Papanicolaou smear with manual screening 6 5-15 [facility] Urine blood detectionOrdered By: Dr. Thomas on 09-16-2022 RBC Ql (U) Negative Negative [facility] RBC Ql (U) 0 SEEN /hpf 0-5 [facility] Urine clarityOrdered By: Dr. Thomas on 09-16-2022 Clarity (U) Clear Clear [facility] Urine color determinationOrd ered By: Dr. Thomas on 09-16-2022 Color (U) Yellow Yellow [facility] Urine glucose detectionOrder ed By: Dr. Thomas on 09-16-2022 Glucose Ql (U) 1000 mg/dl Normal [facility] Urine leukocyte esterase det ection by dipstickOrdered By: Dr. Thomas on 09-16-2022 Leukocyte esterase Test strip Ql (U) Negative Negative [facility] Urine pHOrdered By: Dr. Azeb marcos on 09-16-2022 pH (U) 5.0 [pH] 5.0 - 8.0 [facility] Urine sediment bacteria coun t by microscopy (number/high power field)Ordered By: Dr. Thomas on 09-16-2022 Bacteria LM.HPF (Urine sed) [#/Area] 1 /[HPF] None Seen [facility] Urine specific gravity measu rementOrdered By: Dr. Thomas on 09-16-2022 Specific gravity (U) [Rel density] 1.015 1.002-1.030 [facility] Urobilinogen Auto test strip Ql (U)Ordered By: Dr. Thomas on 09-16-2022 Urobilinogen Ql (U) Normal mg/dl Normal [facility] No Panel InformationOrdered By: Hung Adames on 08-19-2022 Giardia Antigen (JIMI) [facility] Ova and parasitesOrdered By: Hung Adames on 08-19-2022 Ova and parasites identified LM Nom (Unsp spec) [facility] No Panel InformationOrdered By: Hung Adames on 08-13-2022 Stool Pancreatic Elastase 75 >200 [facility] Comment on above: Result Units: ug Jeny st./gResults verified by repeat testing Severe Pancreatic Insufficiency: <100 Moderate Pancreatic Insufficiency: 100 - 200 Normal: >200Performed at: [facility] [address] [id number] Director: Hi Hackett MD, Phone: [phone] Stool Calprotectin 423 ug/g 0-120 [facility] Comment on above: Concentration Interp retation Follow-Up<16 - 50 ug/g Normal None>50 -120 ug/g Borderline Re-evaluate in 4-6 weeks >120 ug/g Abnormal Repeat as clinically indicatedPerformed at: - [facility] [address] [id number] Director: Kishor Sears PhD, Phone: [phone] at: - [facility] [id number] Director: Hi Hackett MD, Phone: [phone] Stool Neutral Fats Normal . [facility] Comment on above: Normal (<60 Droplets /HPF) Qualitative fecal fat or lip idsOrdered By: Hung Adames on 08-13-2022 Fat Ql (Stl) Increased . [facility] Comment on above: Normal (<100 Droplet s/HPF) EP PanelOrdered By: Hung Adames on 08-11-2022 Gastrointestinal pathogens panel ANALISA+probe (Stl) [facility] Stool gastrointestinal hemog lobin detection by immunologic methodOrdered By: Hung Adames on 08-11-2022 Lower GI hemoglobin IA Ql (Stl) [facility] Stool lactoferrin detection by immunoassayOrdered By: Hung Adames on 08-11-2022 Lactoferrin IA Ql (Stl) [facility] Absolute lymphocyte countOrd ered By: Hung Adames on 08-10-2022 Lymphocytes Auto (Unsp spec) [#/Vol] 1.79 10*3/uL 0.83-4.51 [facility] Albumin Elph [Mass/Vol]Order ed By: Hung Adames on 08-10-2022 Albumin [Mass/Vol] 2.9 g/dL 2.9-4.4 [facility] Atypical perinuclear antineu trophil cytoplasmic antibodies measurementOrdered By: Hung Adames on 08-10-2022 Neutrophil cytoplasmic Ab.perinuclear.atypical IF (S) [Titer] <1:20 titer Neg:<1:20 [facility] Comment on above: The atypical pANCA p attern has been observed in asignificant percentage of patients with ulcerative colitis,primary sclerosing cholangitis and autoimmune hepatitis. Basophil percentageOrdered B y: Hung Adames on 08-10-2022 Basophil percentage 0.6 AI 0.0-0.9 [facility] Basophil percentage < 0.2 AI 0.0-0.9 [facility] Basophils/100 WBC (Bld) 0.6 % 0-1 [facility] Bilirubin [Mass/Vol] 0.40 mg/dL 0.20-1.00 [facility] Comment on above: For patients on eltr ombopag therapy, use of Dimension [place] TBIL is not recommended. Chloride [Moles/Vol] 105 mmol/L 98-107 [facility] Eosinophils/100 WBC (Bld) 2.7 % 0-5 [facility] Glucose [Mass/Vol] 306 mg/dL 74-106 [facility] Comment on above: Glucose result great er than or equal to 200 mg/dLsuggests DIABETES MELLITUS per A.D.A. criteria. LDH [Catalytic activity/Vol] 205 U/L 84-246 [facility] Neutrophils (Bld) [#/Vol] 4.5 10*3/uL 2.0-7.7 [facility] Neutrophils/100 WBC (Bld) 62.6 % 47-70 [facility] Potassium [Moles/Vol] 4.1 mmol/L 3.5-5.1 [facility] Protein [Mass/Vol] 5.8 g/dL 6.4-8.2 [facility] Sodium [Moles/Vol] 140 mmol/L 136-145 [facility] WBC (Bld) [#/Vol] 7.1 10*3/uL 4.4-11.0 [facility] Blood erythrocytes count (nu mber/volume)Ordered By: Hung Adames on 08-10-2022 RBC (Bld) [#/Vol] 3.40 10*6/uL 4.2-5.4 [facility] Blood hemoglobin measurement (mass/volume)Ordered By: Hung Adames on 08-10-2022 Hemoglobin (Bld) [Mass/Vol] 10.1 g/dL 12.0-15. 0 [facility] Blood lymphocytes/100 leukoc ytesOrdered By: Hung Adames on 08-10-2022 Lymphocytes/100 WBC (Bld) 25.1 % 19-41 [facility] Blood monocytes/100 leukocyt esOrdered By: Hung Adames on 08-10-2022 Monocytes/100 WBC (Bld) 8.6 % 0-10 [facility] Blood platelet mean volumeOr dered By: Hung Adames on 08-10-2022 Platelet mean volume (Bld) [Entitic vol] 9.8 fL 6.2-12.0 [facility] Determination of erythrocyte mean corpuscular volume (MCV)Ordered By: Hung Adames on 08-10-2022 MCV (RBC) [Entitic vol] 94.1 fL 81-99 [facility] Erythrocyte sedimentation ra teOrdered By: Hung Adames on 08-10-2022 ESR (Bld) [Velocity] 2 mm/h 0-30 [facility] Hematocrit Auto (Bld) [Volum e fraction]Ordered By: Hung Adames on 08-10-2022 Hematocrit (Bld) [Volume fraction] 32.0 % 37-47 [facility] INR in Blood by Coagulation assayOrdered By: Hung Adames on 08-10-2022 INR Coag (Bld) [Relative time] 1.1 {INR} [facility] Interpretation of serum or p lasma protein pattern by immunofixation (narrative resultOrdered By: Hung Adames on 08-10-2022 Protein Fractions Immunofixation [place] [Interp] See comment [facility] Comment on above: Result: Not Observed Laboratory - Chemistry and C hemistry - challengeOrdered By: Hung Adames on 08-10-2022 ALP [Catalytic activity/Vol] 96 U/L 45-117 [facility] ALT [Catalytic activity/Vol] 27 U/L 13-56 [facility] CO2 [Moles/Vol] 26.0 mmol/L 21.0-32.0 [facility] Free T4 [Mass/Vol] 0.97 ng/dL 0.76-1.46 [facility] Urea nitrogen/Creatinine [Mass ratio] 13.9 mg/mg 10-20 [facility] Laboratory - CoagulationOrde red By: Hung Adames on 08-10-2022 PT Coag (PPP) [Time] 14.0 s 11.7-14.9 [facility] Laboratory - Hematology and Cell countsOrdered By: Hung Adames on 08-10-2022 Erythrocyte distribution width (RBC) [Entitic vol] 46.5 fL 35.1-43.9 [facility] Erythrocyte distribution width (RBC) [Ratio] 13.6 % 11.6-14.6 [facility] Immature granulocytes/100 WBC (Bld) 0.400 % 0.0-0.9 [facility] Comment on above: IG% - Immature Granu locytes (promyelocytes, myelocytes and metamyelocytes) > 1% indicates that a LEFT SHIFT is Present. MCH (RBC) [Entitic mass] 29.7 pg 27.0-32.0 [facility] Nucleated RBC/100 WBC (Bld) [Ratio] 0 % 0-5 [facility] MCHC Auto (RBC) [Mass/Vol]Or dered By: Hung Adames on 08-10-2022 MCHC (RBC) [Mass/Vol] 31.6 g/dL 32-36 [facility] No Panel InformationOrdered By: Hung Adames on 08-10-2022 Addendum Document Comment . [facility] Comment on above: Protein electrophore sis scan will follow via computer,mail, or waste salvager delivery. Centromere B Antibody <0.2 AI 0.0-0.9 [facility] Endomysial IgA Antibody Negative Negative [facility] Estimated GFR (MDRD) Amer 54 mL/min >60 [facility] Comment on above: GFR Calc Estimated GFR (MDRD) Non-Af Amer 44 mL/min >60 [facility] Comment on above: Non- GFR Calc Free Triiodothyronine (T3) pg/dL 1.6 pg/mL 2.18-3.98 [facility] Immunoglobulin E 20 IU/mL 6-495 [facility] Comment on above: Performed at: [facility] [employer] dominguez [address] [id number] Director: Kishor Sears PhD, Phone: [phone] at: - [facility] [id number] Director: Hi Hackett MD, Phone: [phone] [employer] Antibody <0.2 AI 0.0-0.9 [facility] Thyroid Stimulating Hormone (TSH) 2.56 uIU/mL 0.358-3.74 [facility] Platelets bldOrdered By: Rupert Adames on 08-10-2022 Platelets (Bld) [#/Vol] 211 10*3/uL 150-450 [facility] Serum DNA double strand anti body assay (units/volume)Ordered By: Hung Adames on 08-10-2022 DNA double strand Ab Qn (S) 18 [IU]/mL 0-9 [facility] Comment on above: Negative <5 Equivoca l 5 - 9 Positive >9 Serum Lolly-1 antibody assay (u nits/volume)Ordered By: Hung Adames on 08-10-2022 Lolly-1 extractable nuclear Ab Qn (S) <0.2 AI 0.0-0.9 [facility] Serum Scl-70 extractable nuc lear antibody assay (units/volume)Ordered By: Hung Adames on 08-10-2022 SCL-70 extractable nuclear Ab Qn (S) <0.2 AI 0.0-0.9 [facility] Serum [place] extractable nucl ear antibody detectionOrdered By: Hung Adames on 08-10-2022 [place] extractable nuclear Ab Ql (S) <0.2 AI 0.0-0.9 [facility] Serum [id number] measu rement by electrophoresisOrdered By: Hung Adames on 08-10-2022 Alpha 1 globulin Elph [Mass/Vol] 0.2 g/dL 0.0-0.4 [facility] Alpha 1 globulin Elph [Mass/Vol] 0.7 g/dL 0.4-1.0 [facility] Serum classic neutrophil cyt oplasmic antibody assay (units/volume)Ordered By: Hung Adames on 08-10-2022 Neutrophil cytoplasmic Ab.classic Qn (S) <1:20 titer Neg:<1:20 [facility] Serum globulin measurement ( mass/volume)Ordered By: Hung Adames on 08-10-2022 Globulin (S) [Mass/Vol] 2.7 g/dL 2.2-3.9 [facility] Serum or plasma C reactive p rotein measurement (mass/volume)Ordered By: Hung Adames on 08-10-2022 CRP [Mass/Vol] mg/L 0.0-3.0 [facility] Comment on above: C-Reactive Protein ( CRP) provides useful information for thediagnosis, therapy and monitoring of inflammatory processesand associated diseases. For the evaluation of Relative Riskfor Cardiovascular Disease, a High Sensitivity CRP (HSCRP)should be ordered. Serum or plasma IgA measurem ent (mass/volume)Ordered By: Hung Adames on 08-10-2022 IgA [Mass/Vol] 294 mg/dL 64-422 [facility] Serum or plasma IgG measurem ent (mass/volume)Ordered By: Hung Adames on 08-10-2022 IgG [Mass/Vol] 991 mg/dL 586-1602 [facility] Serum or plasma IgM measurem ent (mass/volume)Ordered By: Hung Adames on 08-10-2022 IgM [Mass/Vol] 64 mg/dL 26-217 [facility] Serum or plasma albumin beck urement (mass/volume)Ordered By: Hung Adames on 08-10-2022 Albumin [Mass/Vol] 2.6 g/dL 3.2-5.0 [facility] Serum or plasma albumin/glob ulin mass ratioOrdered By: Hung Adames on 08-10-2022 Albumin/Globulin [Mass ratio] 0.8 {ratio} 0.9-2.4 [facility] Serum or plasma beta globuli n measurement by electrophoresis (mass/volume)Ordered By: Hung Adames on 08-10-2022 Beta globulin Elph [Mass/Vol] 0.8 g/dL 0.7-1.3 [facility] Serum or plasma calcium beck urement (mass/volume)Ordered By: Hung Adames on 08-10-2022 Calcium [Mass/Vol] 8.4 mg/dL 8.5-10.1 [facility] Serum or plasma creatinine m easurement (mass/volume)Ordered By: Hung Adames on 08-10-2022 Creatinine [Mass/Vol] 1.22 mg/dL 0.55-1.02 [facility] Comment on above: The validity of the calculated GFR & GFRAA in patients over 70 years has not been determined. Clinical correlation is essential. Serum or plasma ferritin jose carlos surement (mass/volume)Ordered By: Hung Adames on 08-10-2022 Ferritin [Mass/Vol] 57 ng/mL 8252 [facility] Serum or plasma gamma globul in measurement by electrophoresis (mass/volume)Ordered By: Hung Adames on 08-10-2022 Gamma globulin Elph [Mass/Vol] 1.0 g/dL 0.4-1.8 [facility] Serum or plasma immunoelectr ophoresis interpretation (nominal result)Ordered By: Hung Adames on 08-10-2022 Interpretation IEP [Interp] Comment . [facility] Comment on above: No monoclonality det ected. Serum or plasma urea nitroge n measurement (mass/volume)Ordered By: Hung Adames on 08-10-2022 Urea nitrogen [Mass/Vol] 17 mg/dL 7-18 [facility] Serum perinuclear neutrophil cytoplasmic antibody titer by immunofluorescenceOrdered By: Hung Adames on 08-10-2022 Neutrophil cytoplasmic Ab.perinuclear IF (S) [Titer] <1:20 titer Neg:<1:20 [facility] Comment on above: The presence of posi tive fluorescence exhibiting P-ANCA orC-ANCA patterns alone is not specific for the diagnosis ofWegener's Granulomatosis (WG) or microscopic polyangiitis.Decisions about treatment should not be based solely onANCA IFA results. The International ANCA Group Consensusrecommends follow up testing of positive sera with both CA-3 and MPO-ANCA enzyme immunoassays. As many as 5% serumsamples are positive only by EIA. Ref. AM J Clin [id number];111:507-513. Serum tissue transglutaminas e IgA antibody assay (units/volume)Ordered By: Hung Adames on 08-10-2022 tTG IgA Qn (S) <2 U/mL 0-3 [facility] Comment on above: Negative 0 - 3 Weak Positive 4 - 10 Positive >10 Tissue Transglutaminase (tTG) has been identified as the endomysial antigen. Studies have demonstr- ated that endomysial IgA antibodies have over 99% specificity for gluten sensitive enteropathy. Thin prep Papanicolaou smear with manual screeningOrdered By: Hung Friend on 08-10-2022 Thin prep Papanicolaou smear with manual screening 26 U/L 15-37 [facility] Thin prep Papanicolaou smear with manual screening 9 5-15 [facility] Thin prep Papanicolaou smear with manual screening 1.1 0.7-1.7 [facility] Total protein bloodOrdered B y: Hung Friend on 08-10-2022 Protein [Mass/Vol] 5.6 g/dL 6.0-8.5 [facility] Culture, urineOrdered By: Dr Edmond Lauren on 06-17-2022 Bacteria identified Cx Nom (U) Klebsiella aerogenes [facility] Absolute lymphocyte countOrd ered By: Dr. Verma on 06-16-2022 Lymphocytes Auto (Unsp spec) [#/Vol] 1.80 10*3/uL 0.83-4.51 [facility] Basophil percentageOrdered B y: Dr. Verma on 06-16-2022 Basophils/100 WBC (Bld) 0.7 % 0-1 [facility] Chloride [Moles/Vol] 103 mmol/L 98-107 [facility] Eosinophils/100 WBC (Bld) 5.6 % 0-5 [facility] Glucose [Mass/Vol] 84 mg/dL 74-106 [facility] Neutrophils (Bld) [#/Vol] 5.2 10*3/uL 2.0-7.7 [facility] Neutrophils/100 WBC (Bld) 61.5 % 47-70 [facility] Potassium [Moles/Vol] 4.3 mmol/L 3.5-5.1 [facility] Sodium [Moles/Vol] 135 mmol/L 136-145 [facility] WBC (Bld) [#/Vol] 8.4 10*3/uL 4.4-11.0 [facility] Blood erythrocytes count (nu mber/volume)Ordered By: Dr. Verma on 06-16-2022 RBC (Bld) [#/Vol] 3.07 10*6/uL 4.2-5.4 [facility] Blood hemoglobin measurement (mass/volume)Ordered By: Dr. Verma on 06-16-2022 Hemoglobin (Bld) [Mass/Vol] 9.1 g/dL 12.0-15. 0 [facility] Blood lymphocytes/100 leukoc ytesOrdered By: Dr. Verma on 06-16-2022 Lymphocytes/100 WBC (Bld) 21.4 % 19-41 [facility] Blood monocytes/100 leukocyt esOrdered By: Dr. Verma on 06-16-2022 Monocytes/100 WBC (Bld) 10.2 % 0-10 [facility] Blood platelet mean volumeOr dered By: Dr. Verma on 06-16-2022 Platelet mean volume (Bld) [Entitic vol] 9.9 fL 6.2-12.0 [facility] Determination of erythrocyte mean corpuscular volume (MCV)Ordered By: Dr. Verma on 06-16-2022 MCV (RBC) [Entitic vol] 92.2 fL 81-99 [facility] Glucose Glucometer (BldC) [M ass/Vol]Ordered By: Dr. Verma on 06-16-2022 Glucose [Mass/Vol] 185 mg/dL 74-106 [facility] Comment on above: MANAGEMENT OF PATIEN T CARE PER NURSING PROTOCOL Hematocrit Auto (Bld) [Volum e fraction]Ordered By: Dr. Verma on 06-16-2022 Hematocrit (Bld) [Volume fraction] 28.3 % 37-47 [facility] Laboratory - Chemistry and C hemistry - challengeOrdered By: Dr. Verma on 06-16-2022 CO2 [Moles/Vol] 27.0 mmol/L 21.0-32.0 [facility] Urea nitrogen/Creatinine [Mass ratio] 14.5 mg/mg 10-20 [facility] Laboratory - Hematology and Cell countsOrdered By: Dr. Verma on 06-16-2022 Erythrocyte distribution width (RBC) [Entitic vol] 46.6 fL 35.1-43.9 [facility] Erythrocyte distribution width (RBC) [Ratio] 13.8 % 11.6-14.6 [facility] Immature granulocytes/100 WBC (Bld) 0.600 % 0.0-0.9 [facility] Comment on above: IG% - Immature Granu locytes (promyelocytes, myelocytes and metamyelocytes) > 1% indicates that a LEFT SHIFT is Present. MCH (RBC) [Entitic mass] 29.6 pg 27.0-32.0 [facility] Nucleated RBC/100 WBC (Bld) [Ratio] 0 % 0-5 [facility] MCHC Auto (RBC) [Mass/Vol]Or dered By: Dr. Verma on 06-16-2022 MCHC (RBC) [Mass/Vol] 32.2 g/dL 32-36 [facility] No Panel InformationOrdered By: Dr. Verma on 06-16-2022 Estimated Creatinine Clearance Calc 40.91 ml/min [facility] Estimated GFR (MDRD) Amer 71 mL/min >60 [facility] Comment on above: GFR Calc Estimated GFR (MDRD) Non-Af Amer 58 mL/min >60 [facility] Comment on above: Non- GFR Calc Platelets bldOrdered By: Dr. Verma on 06-16-2022 Platelets (Bld) [#/Vol] 203 10*3/uL 150-450 [facility] Serum or plasma calcium beck urement (mass/volume)Ordered By: Dr. Verma on 06-16-2022 Calcium [Mass/Vol] 8.3 mg/dL 8.5-10.1 [facility] Serum or plasma creatinine m easurement (mass/volume)Ordered By: Dr. Verma on 06-16-2022 Creatinine [Mass/Vol] 0.96 mg/dL 0.55-1.02 [facility] Comment on above: The validity of the calculated GFR & GFRAA in patients over 70 years has not been determined. Clinical correlation is essential. Serum or plasma urea nitroge n measurement (mass/volume)Ordered By: Dr. Verma on 06-16-2022 Urea nitrogen [Mass/Vol] 14 mg/dL 7-18 [facility] Thin prep Papanicolaou smear with manual screeningOrdered By: Dr. Verma on 06-16-2022 Thin prep Papanicolaou smear with manual screening 5 5-15 [facility] Basophil percentageOrdered B y: Dr. Paredes on 06-15-2022 Cholesterol [Mass/Vol] 91 mg/dL <200 [facility] Comment on above: <200 mg/dL Desirable 200-240 mg/dL Borderline >240 mg/dL High Risk Triglyceride [Mass/Vol] 51 mg/dL <199 [facility] Comment on above: The drugs N-Acetylcy steine and Metamizole may falsely depress this assay.Serum Triglycerides Reference Interval Normal <150 mg/dL Borderline high 150 - 199 mg/dL High 200 - 499 mg/dL Very High > or = 500 mg/dL Serum or plasma cholesterol in HDL measurement (mass/volume)Ordered By: Dr. Paredes on 06-15-2022 Cholesterol in HDL [Mass/Vol] 45 mg/dL >40 [facility] Comment on above: The drugs N-Acetylcy steine and Metamizole may falsely depress this assay. Reference Range HDL <40 mg/dL Low HDL Cholesterol HDL >or= 60 mg/dL High HDL Cholesterol Serum or plasma cholesterol in VLDL measurement (mass/volume)Ordered By: Dr. Paredes on 06-15-2022 Cholesterol in VLDL [Mass/Vol] 10 mg/dL 5-40 [facility] Serum or plasma low density lipoprotein (LDL) cholesterol measurement (mass/volume)Ordered By: Dr. Paredes on 06-15-2022 Cholesterol in LDL [Mass/Vol] 36 mg/dL 0-130 [facility] Whole blood hemoglobin A1c/t otal hemoglobin ratio (mass fraction)Ordered By: Dr. Paredes on 06-15-2022 HbA1c (Bld) [Mass fraction] 6.1 % 3.8-5.6 [facility] Comment on above: Normal < 5.7 % Predi abetic 5.7 - 6.4 % Diabetic >or= 6.5 % Please note range changes. Basophil percentageOrdered B y: Dr. Lauren on 06-14-2022 Basophil percentage 0-5 SEEN /hpf 0-5 [facility] Bilirubin Test strip Ql (U)O rdered By: Dr. Lauren on 06-14-2022 Bilirubin Ql (U) Negative Negative [facility] INR in Blood by Coagulation assayOrdered By: Dr. Lauren on 06-14-2022 INR Coag (Bld) [Relative time] 1.0 {INR} [facility] Ketones Test strip Ql (U)Ord ered By: Dr. Lauren on 06-14-2022 Ketones Ql (U) Negative Negative [facility] Laboratory - CoagulationOrde red By: Dr. Lauren on 06-14-2022 aPTT Coag (Bld) [Time] 23.5 s 24.1-36.2 [facility] PT Coag (PPP) [Time] 13.3 s 11.7-14.9 [facility] Mucus LM Ql (Urine sed)Order ed By: Dr. Lauren on 06-14-2022 Mucus Ql (Urine sed) 0 SEEN /hpf [facility] Nitrite Test strip Ql (U)Ord ered By: Dr. Lauren on 06-14-2022 Nitrite Ql (U) Negative Negative [facility] No Panel InformationOrdered By: Dr. Lauren on 06-14-2022 Troponin I High Sensitivity 25 pg/mL 3.0-54.0 [facility] Comment on above: Please Note: New [place] t Units and Gender Specific Reference Ranges. For more information see Policy Stat Procedure [place] High Sensitivity Troponin (TNIH) and attachments. Protein Test strip Ql (U)Ord ered By: Dr. Lauren on 06-14-2022 Protein Ql (U) Negative Negative [facility] Squamous epithelial cells de tection in urine sediment by light microscopyOrdered By: Dr. Lauren on 06-14-2022 Epithelial cells.squamous LM Ql (Urine sed) 0 SEEN /hpf 5-10 [facility] Urine blood detectionOrdered By: Dr. Lauren on 06-14-2022 RBC Ql (U) Negative Negative [facility] RBC Ql (U) 0 SEEN /hpf 0-5 [facility] Urine clarityOrdered By: Dr. Lauren on 06-14-2022 Clarity (U) Sl. Cloudy Clear [facility] Urine color determinationOrd ered By: Dr. Lauren on 06-14-2022 Color (U) Yellow Yellow [facility] Urine glucose detectionOrder ed By: Dr. Lauren on 06-14-2022 Glucose Ql (U) Normal mg/dl Normal [facility] Urine leukocyte esterase det ection by dipstickOrdered By: Dr. Lauren on 06-14-2022 Leukocyte esterase Test strip Ql (U) 25 /ul Negative [facility] Urine pHOrdered By: Dr. Kieran fuchs on 06-14-2022 pH (U) 8.0 [pH] 5.0 - 8.0 [facility] Urine sediment bacteria coun t by microscopy (number/high power field)Ordered By: Dr. Lauren on 06-14-2022 Bacteria LM.HPF (Urine sed) [#/Area] 3 /[HPF] None Seen [facility] Urine specific gravity measu rementOrdered By: Dr. Lauren on 06-14-2022 Specific gravity (U) [Rel density] 1.015 1.002-1.030 [facility] Urobilinogen Auto test strip Ql (U)Ordered By: Dr. Lauren on 06-14-2022 Urobilinogen Ql (U) Normal mg/dl Normal [facility] Vital Signs Date Time Vital Sign Value Performing Clinician Facility 03-30-2025 03:44-0400 Body temperature 98.1 [degF] Dr. Clinton Fowler DO Work Phone: [facility] 03-30-2025 03:44-0400 Diastolic blood pressure 79 mm[Hg] Dr. Clinton Fowler DO Work Phone: [facility] 03-30-2025 03:44-0400 Heart rate 77 /min Dr. Clinton Fowler DO Work Phone: [facility] 03-30-2025 03:44-0400 Respiratory rate 16 /min Dr. Clinton Fowelr DO Work Phone: [facility] 03-30-2025 03:44-0400 SaO2% (BldA) [Mass fraction] 98 % Dr. Clinton Fowler DO Work Phone: [facility] 03-30-2025 03:44-0400 Systolic blood pressure 169 mm[Hg] Dr. Clinton Fowler DO Work Phone: [facility] 03-30-2025 01:42-0400 Body height 160.[address] Clinton Fowler DO Work Phone: [facility] 03-30-2025 01:42-0400 Body mass index (BMI) [Ratio] 29.2 kg/m2 Dr. Clinton Fowler DO Work Phone: [facility] 03-30-2025 01:42-0400 Body weight 74.[address] Clinton Fowler DO Work Phone: [facility] 02-22-2025 18:09-0400 Body temperature 97.4 [degF] Dr. Clinton Fowler DO Work Phone: [facility] 02-22-2025 18:09-0400 Diastolic blood pressure 74 mm[Hg] Dr. Clinton Fowler DO Work Phone: [facility] 02-22-2025 18:09-0400 Heart rate 61 /min Dr. Clinton Fowlre DO Work Phone: [facility] 02-22-2025 18:09-0400 Respiratory rate 16 /min Dr. Clinton Fowler DO Work Phone: [facility] 02-22-2025 18:09-0400 SaO2% (BldA) [Mass fraction] 97 % Dr. Clinton Fowler DO Work Phone: [facility] 02-22-2025 18:09-0400 Systolic blood pressure 170 mm[Hg] Dr. Clinton Fowler DO Work Phone: [facility] 02-22-2025 14:41-0400 Body height 160.[address] Clinton Fowler DO Work Phone: [facility] 02-22-2025 14:41-0400 Body mass index (BMI) [Ratio] 30.3 kg/m2 Dr. Clinton Fowler DO Work Phone: [facility] 02-22-2025 14:41-0400 Body weight 77.[address] Clinton Fowler DO Work Phone: [facility] 11-25-2024 13:12-0400 Body height 160 cm Libertad Whittaker APRN-DYNAMICS AX SOLUTION ARCHITECT Work Phone: [facility] 11-25-2024 13:12-0400 Body mass index (BMI) [Ratio] 29.58 kg/m2 Libertad Whittaker INSPECTOR AIR CARRIER-DYNAMICS AX SOLUTION ARCHITECT Work Phone: [facility] 11-25-2024 13:12-0400 Body weight 75.75 kg Libertad Whittaker INSPECTOR AIR CARRIER[employer]DYNAMICS AX SOLUTION ARCHITECT Work Phone: [facility] 11-25-2024 13:12-0400 Diastolic blood pressure 84 mm[Hg] Libertad Whittaker INSPECTOR AIR CARRIER-DYNAM[employer] AX SOLUTION ARCHITECT Work Phone: [facility] 11-25-2024 13:12-0400 Heart rate 60 /min Libertad Whittaker INSPECTOR AIR CARRIER[employer] AX SOLUTION ARCHITECT Work Phone: [facility] 11-25-2024 13:12-0400 Systolic blood pressure 149 mm[Hg] Libertad Whittaker INSPECTOR AIR CARRIER-[employer]NAMICS AX SOLUTION ARCHITECT Work Phone: [facility] 06-08-2023 00:26-0500 Diastolic blood pressure 87 mm[Hg] Dr. Clinton Fowler Work Phone: [facility] 06-08-2023 00:26-0500 Heart rate 72 /min Dr. Clinton Fowler Work Phone: [facility] 06-08-2023 00:26-0500 Respiratory rate 16 /min Dr. Clinton Fowler Work Phone: [facility] 06-08-2023 00:26-0500 SaO2% (BldA) [Mass fraction] 97 % Dr. Clinton Fowler Work Phone: [facility] 06-08-2023 00:26-0500 Systolic blood pressure 161 mm[Hg] Dr. Clinton Fowler Work Phone: [facility] 06-07-2023 22:34-0500 Body height 160.[address] Clinton Fowler Work Phone: [facility] 06-07-2023 22:34-0500 Body mass index (BMI) [Ratio] 31 kg/m2 Dr. Clinton Fowler Work Phone: [facility] 06-07-2023 22:34-0500 Body temperature 97.6 [degF] Dr. Clinton Fowler Work Phone: [facility] 06-07-2023 22:34-0500 Body weight 79.[address] Clinton Fowler Work Phone: [facility] 06-03-2023 12:27-0500 Body mass index (BMI) [Ratio] 29 kg/m2 Dr. Clinton Fowler Work Phone: [facility] 06-03-2023 12:27-0500 Body weight 74.[address] Clinton Fowler Work Phone: [facility] 06-03-2023 12:27-0500 Diastolic blood pressure 90 mm[Hg] Dr. Clinton Fowler Work Phone: [facility] 06-03-2023 12:27-0500 Heart rate 77 /min Dr. Clinton Fowler Work Phone: [facility] 06-03-2023 12:27-0500 Respiratory rate 18 /min Dr. Clinton Fowler Work Phone: [facility] 06-03-2023 12:27-0500 SaO2% (BldA) [Mass fraction] 93 % Dr. Clinton Fowler Work Phone: [facility] 06-03-2023 12:27-0500 Systolic blood pressure 167 mm[Hg] Dr. Clinton Fowler Work Phone: [facility] 01-14-2023 13:40-0400 Body temperature 97.9 [degF] Dr. Clinton Fowler Work Phone: [facility] 01-14-2023 13:40-0400 Diastolic blood pressure 55 mm[Hg] Dr. Clinton Fowler Work Phone: [facility] 01-14-2023 13:40-0400 Heart rate 99 /min Dr. Clinton Fowler Work Phone: [facility] 01-14-2023 13:40-0400 Respiratory rate 15 /min Dr. Clinton Fowler Work Phone: [facility] 01-14-2023 13:40-0400 SaO2% (BldA) [Mass fraction] 97 % Dr. Clinton Fowler Work Phone: [facility] 01-14-2023 13:40-0400 Systolic blood pressure 130 mm[Hg] Dr. Clinton Fowler Work Phone: [facility] 01-13-2023 14:42-0400 Body height 177.[address] Clinton Fowler Work Phone: [facility] 01-13-2023 14:42-0400 Body weight 73.[address] Clinton Fowler Work Phone: [facility] 01-12-2023 16:07-0400 Body mass index (BMI) [Ratio] 23.2 kg/m2 Dr. Clinton Fowler Work Phone: [facility] 09-20-2022 15:19-0500 Body height 177.[address] Clinton Fowler Work Phone: [facility] 09-20-2022 15:19-0500 Body weight 84.[address] Clinton Fowler Work Phone: [facility] 09-20-2022 15:16-0500 Body temperature 97.6 [degF] Dr. Clinton Fowler Work Phone: [facility] 09-20-2022 15:16-0500 Diastolic blood pressure 64 mm[Hg] Dr. Clinton Fowler Work Phone: [facility] 09-20-2022 15:16-0500 Heart rate 63 /min Dr. Clinton Fowler Work Phone: [facility] 09-20-2022 15:16-0500 Respiratory rate 14 /min Dr. Clinton Fowler Work Phone: [facility] 09-20-2022 15:16-0500 SaO2% (BldA) [Mass fraction] 97 % Dr. Clinton Fowler Work Phone: [facility] 09-20-2022 15:16-0500 Systolic blood pressure 112 mm[Hg] Dr. Clinton Fowler Work Phone: [facility] 09-20-2022 14:13-0500 Body mass index (BMI) [Ratio] 26.6 kg/m2 Dr. Clinton Fowler Work Phone: [facility] 09-18-2022 14:55-0500 Inhaled oxygen flow rate 2 L/min Dr. Clinton Fowler Work Phone: [facility] 09-16-2022 20:15-0500 Body height 177.[address] Clinton Fowler Work Phone: [facility] 09-16-2022 20:15-0500 Body mass index (BMI) [Ratio] 26.6 kg/m2 Dr. Clinton Fowler Work Phone: [facility] 09-16-2022 20:15-0500 Body weight 84.[address] Clinton Fowler Work Phone: [facility] 09-16-2022 19:54-0500 Body temperature 97.9 [degF] Dr. Clinton Fowler Work Phone: [facility] 09-16-2022 19:54-0500 Diastolic blood pressure 77 mm[Hg] Dr. Clinton Fowler Work Phone: [facility] 09-16-2022 19:54-0500 Heart rate 72 /min Dr. Clinton Fowler Work Phone: [facility] 09-16-2022 19:54-0500 Respiratory rate 18 /min Dr. Clinton Fowler Work Phone: [facility] 09-16-2022 19:54-0500 SaO2% (BldA) [Mass fraction] 95 % Dr. Clinton Fowler Work Phone: [facility] 09-16-2022 19:54-0500 Systolic blood pressure 136 mm[Hg] Dr. Clinton Fowler Work Phone: [facility] 06-16-2022 16:00-0500 Body temperature 97.9 [degF] Dr. Clinton Fowler Work Phone: [facility] 06-16-2022 16:00-0500 Diastolic blood pressure 102 mm[Hg] Dr. Clinton Fowler Work Phone: [facility] 06-16-2022 16:00-0500 Heart rate 82 /min Dr. Clinton Fowler Work Phone: [facility] 06-16-2022 16:00-0500 Respiratory rate 18 /min Dr. Clinton Fowler Work Phone: [facility] 06-16-2022 16:00-0500 SaO2% (BldA) [Mass fraction] 94 % Dr. Clinton Fowler Work Phone: [facility] 06-16-2022 16:00-0500 Systolic blood pressure 123 mm[Hg] Dr. Clinton Fowler Work Phone: [facility] 06-15-2022 19:47-0500 Body mass index (BMI) [Ratio] 30.4 kg/m2 Dr. Clinton Fowler Work Phone: [facility] 06-15-2022 11:29-0500 Body height 170.[address] Clinton Fowler Work Phone: [facility] 06-15-2022 11:29-0500 Body weight 88.[address] Clinton Fowler Work Phone: [facility] 02-04-2022 15:50-0400 Body height 170.18 cm [facility] Work Phone: 02-04-2022 15:50-0400 Body mass index (BMI) [Ratio] 32.8 kg/m2 [facility] Work Phone: 02-04-2022 15:50-0400 Body temperature 99 [degF] [facility] Work Phone: 02-04-2022 15:50-0400 Body weight 95.25 kg [facility] Work Phone: 02-04-2022 15:50-0400 Diastolic blood pressure 70 mm[Hg] [facility] Work Phone: 02-04-2022 15:50-0400 Heart rate 84 /min [facility] Work Phone: 02-04-2022 15:50-0400 Respiratory rate 14 /min [facility] Work Phone: 02-04-2022 15:50-0400 SaO2% (BldA) [Mass fraction] 97 % [facility] Work Phone: 02-04-2022 15:50-0400 Systolic blood pressure 138 mm[Hg] [facility] Work Phone: Encounters Encounter Date Encounter Type Care Provider Facility Start: 05-13-2025 End: 05-16-2025 ambulatory Clinton Dany Facility:[facility] Start: 05-05-2025 End: 05-05-2025 Emergency department patient visit [facility] Facility:[facility] Start: 03-30-2025 End: 03-30-2025 Emergency department patient visit Dr. Clinton Fowler DO Work Phone: -Emergency Department Work Phone: Start: 02-25-2025 ambulatory [facility] Facility: [facility] Start: 02-22-2025 End: 02-22-2025 Emergency department patient visit Dr. Clinton Fowler DO Work Phone: -Emergency Department Work Phone: Start: 01-01-2025 End: 01-01-[address] Clinton Fowler DO Work Phone: [facility] Work Phone: Start: 01-01-2025 End: 01-01-[address] Clinton Fowler DO -Laboratory Tayo Santana [facility] Start: 01-01-2025 End: 01-01-2025 ambulatory Clinton Fowler Facility:[facility] Start: 12-11-2024 End: 12-11-2024 Patient encounter procedure Hung Adames DO -[facility] Work Phone: Start: 12-11-2024 End: 12-11-[address] Clinton Fowler DO Work Phone: [facility] Work Phone: Start: 11-25-2024 End: 11-25-2024 [facility] Start: 11-25-2024 End: 11-25-2024 Office outpatient new 60 minutes Libertad S Weygandt INSPECTOR AIR CARRIER-DYNAMICS [employer] SOLUTION ARCHITECT Work Phone: [facility] Comment on above: TOBY (obstructive sle ep apnea) (Primary Dx); PLMD (periodic limb movement disorder); Dementia without behavioral disturbance (Multi); Hypersomnia Start: 06-28-2024 End: 06-28-2024 Emergency department patient visit Clinton Fowler Facility:[facility] Start: 06-09-2024 End: 06-09-2024 ambulatory Hung Adames Facility:[facility] Start: 05-23-2024 End: 05-23-2024 ambulatory Libertad S Weygandt MEAT SOAKER Facility:[facility] Start: 01-21-2024 End: 01-21-2024 ambulatory LIBERTAD S WEYGANDT Not Available Start: 09-28-2023 End: 09-28-[address] [facility] Work Phone: Start: 09-28-2023 End: 09-28-2023 Patient encounter procedure [facility]-Laboratory, Specimen Work Phone: Start: 07-20-2023 End: 07-20-2023 ambulatory LIBERTAD WHITTAKER Not Available Start: 06-07-2023 End: 06-08-2023 Emergency department [facility] Start: 06-04-2023 End: 06-04-[address] Clinton Fowler Work Phone: [facility] Work Phone: Start: 06-03-2023 End: 06-03-[address] Clinton Fowler Work Phone: [facility] Work Phone: Start: 04-27-2023 End: 04-27-[address] Clinton Fowler Work Phone: [facility] Work Phone: Start: 04-27-2023 End: 04-27-[address] Clinton Fowler Work Phone: [facility] Work Phone: Start: 04-25-2023 End: 04-25-[address] Clinton Fowler Work Phone: [facility] Work Phone: Start: 04-25-2023 End: 04-25-[address] Clinton Fowler Work Phone: [facility] Start: 01-24-2023 End: 01-24-[address] Clinton Fowler Work Phone: [facility] Work Phone: Start: 01-24-2023 End: 01-24-[address] Clitnon Fowler [facility] Start: 01-14-2023 Non-patient / Non-visit Dr. Clinton Fowler Work Phone: [facility] Work Phone: Start: 01-13-2023 Non-patient / Non-visit Dr. Clinton Fowler Work Phone: [facility] Start: 01-13-2023 Non-patient / Non-visit Dr. Clinton Fowler Work Phone: [facility] Work Phone: Start: 01-12-2023 Non-patient / Non-visit Dr. Clinton Fowler Work Phone: [facility] Start: 01-12-2023 Non-patient / Non-visit Dr. Clinton Fowler Work Phone: [facility] Work Phone: Start: 01-12-2023 End: 01-14-2023 Evaluation and management of inpatient Dr. Clinton Fowler Work Phone: [facility]Pro[facility] Work Phone: Start: 12-05-2022 End: 12-05-[address] Clinton Fowler Work Phone: [facility] Work Phone: Start: 10-23-2022 End: 10-23-[address] Clinton Fowler Work Phone: [facility] Work Phone: Start: 10-23-2022 End: 10-23-[address] Clinton Fowler Work Phone: [facility]-Labor[facility] Start: 09-20-2022 Non-patient / Non-visit Dr. Clinton Fowler Work Phone: [facility] Start: 09-19-2022 End: 09-19-2022 Non-patient / Non-visit Dr. Clinton Fowler Work Phone: [facility] Start: 09-19-2022 Non-patient / Non-visit Dr. Clinton Fowler Work Phone: [facility] Start: 09-18-2022 Non-patient / Non-visit Dr. Clinton Fowler Work Phone: [facility] Start: 09-17-2022 Non-patient / Non-visit Dr. Clinton Fowler Work Phone: [facility] Start: 09-16-2022 End: 09-20-2022 Evaluation and management of inpatient Dr. Clinton Fowler Work Phone: [facility]-Medical Surgical 3 Start: 08-23-2022 End: 08-23-[address] Clinton Fowler Work Phone: [facility] Work Phone: Start: 08-23-2022 End: 08-23-[address] Clinton Fowler Work Phone: [facility] Start: 08-13-2022 End: 08-13-[address] Clinton Fowler Work Phone: [facility] Work Phone: Start: 08-13-2022 End: 08-13-[address] Clinton Fowler Work Phone: [facility]-Laboratory, Specimen Start: 08-11-2022 End: 08-11-[address] Clinton oFwler Work Phone: [facility] Work Phone: Start: 08-11-2022 End: 08-11-[address] Clinton Fowler Work Phone: [facility]-Laboratory, Specimen Start: 08-10-2022 End: 08-10-[address] Clinton Fowler Work Phone: [facility] Work Phone: Start: 08-10-2022 End: 08-10-[address] Clinton Fowler Work Phone: [facility] Start: 06-16-2022 Non-patient / Non-visit Dr. Clinton Fowler Work Phone: [facility] Start: 06-15-2022 Non-patient / Non-visit Dr. Clinton Fowler Work Phone: [facility] Start: 06-15-2022 End: 06-16-2022 Evaluation and management of inpatient Dr. Clinton Fowler Work Phone: [facility] Start: 06-15-2022 End: 06-16-[address] Clinton Fowler Work Phone: [facility] Work Phone: Start: 02-04-2022 End: 02-04-2022 Emergency department patient visit [facility]-Emergency Department Procedures Date Procedure Procedure Detail [...] DTaP/Tdap/Td Vaccines (3 - Td or Tdap) [facility] Start: 05-26-2025 End: 05-26-2025 Patient encounter procedure 05/26/2025 1:00 PM EST Office Visit [facility] Building [address] [place] [address] Libertad Whittaker, INSPECTOR AIR CARRIER-DYNAMICS AX SOLUTION ARCHITECT [address] [address] [facility] Start: 03-30-2025 Bacteria identified in Urine by Culture Urine Culture [facility] Start: 03-30-2025 End: 03-30-2025 [facility] Start: 02-22-2025 [facility] Start: 02-22-2025 [facility] Start: 02-22-2025 Bacteria identified in Urine by Culture Urine Culture [facility] Start: 03-16-2024 COVID-19 Vaccine ( season) COVID-19 Vaccine () [facility] Start: 06-08-2023 [facility] Start: 06-07-2023 Plain chest X-ray Chest 1 View (Portable) [facility] Start: 06-07-2023 XR Chest Single view [facility] Start: 01-14-2023 Patient discharge [facility] Start: 01-13-2023 Ova and Parasites Ova and Parasites [facility] Start: 01-12-2023 Assessment of risk of venous thromboembolism [facility] Start: 01-12-2023 Documentation procedure [facility] Start: 01-12-2023 Insertion of catheter into peripheral vein [facility] Start: 01-12-2023 Measuring intake and output [facility] Start: 01-12-2023 Providing care according to standard [facility] Start: 01-12-2023 Provision of activity privileges [facility] Start: 01-12-2023 Referral to gastroenterology service [facility] Start: 01-12-2023 Referral to occupational therapist [facility] Start: 01-12-2023 Referral to service [facility] Start: 01-12-2023 [facility] Start: 01-12-2023 Following clinical pathway protocol [facility] Start: 01-12-2023 Admission procedure [facility] Start: 01-12-2023 Patient referral to dietitian [facility] Start: 12-26-2022 Pneumococcal vaccination Pneumococcal Vaccine (2 of 2 - PCV) [facility] Start: 09-26-2022 Blood chemistry [facility] Start: 09-25-2022 Blood chemistry [facility] Start: 09-24-2022 Blood chemistry [facility] Start: 09-23-2022 Blood chemistry [facility] Start: 09-22-2022 Blood chemistry [facility] Start: 09-21-2022 Blood chemistry [facility] Start: 09-20-2022 Patient discharge [facility] Start: 09-20-2022 Referral to service [facility] Start: 09-18-2022 Speech therapy assessment [facility] Start: 09-18-2022 Implementation of planned interventions [facility] Start: 09-18-2022 Notification of physician [facility] Start: 09-18-2022 Care planning and problem solving actions [facility] Start: 09-18-2022 Cardiac monitoring [facility] Start: 09-18-2022 Catheterization of vein [facility] Start: 09-18-2022 Elevation of head of bed [facility] Start: 09-18-2022 Exercises [facility] Start: 09-18-2022 Implementation of planned interventions [facility] Start: 09-18-2022 Notification of physician [facility] Start: 09-18-2022 [facility] Start: 09-16-2022 Assessment of risk of venous thromboembolism [facility] Start: 09-16-2022 Care regimes management [facility] Start: 09-16-2022 Catheterization of vein [facility] Start: 09-16-2022 Insertion of catheter into peripheral vein [facility] Start: 09-16-2022 Oxygen therapy [facility] Start: 09-16-2022 Providing care according to standard [facility] Start: 09-16-2022 Provision of activity privileges [facility] Start: 09-16-2022 Referral to occupational therapist [facility] Start: 09-16-2022 Referral to service [facility] Start: 09-16-2022 [facility] Start: 09-16-2022 Following clinical pathway protocol [facility] Start: 09-16-2022 Verification routine [facility] Start: 09-16-2022 Admission procedure [facility] Start: 09-16-2022 Blood culture [facility] Start: 09-16-2022 End: 09-16-2022 [facility] Start: 09-16-2022 Blood culture [facility] Start: 09-16-2022 Patient referral to dietitian [facility] Start: 06-23-2022 Blood chemistry [facility] Work Phone: Start: 06-22-2022 Blood chemistry [facility] Work Phone: Start: 06-21-2022 Blood chemistry [facility] Work Phone: Start: 06-20-2022 Blood chemistry [facility] Work Phone: Start: 06-19-2022 Blood chemistry [facility] Work Phone: Start: 06-18-2022 Blood chemistry [facility] Work Phone: Start: 06-17-2022 Blood chemistry [facility] Work Phone: Start: 06-16-2022 Patient discharge [facility] Start: 06-15-2022 Application of intermittent pneumatic compression device [facility] Start: 06-15-2022 Following clinical pathway protocol [facility] Start: 06-15-2022 Assessment of risk of venous thromboembolism [facility] Start: 06-15-2022 Cardiac monitoring [facility] Start: 06-15-2022 Catheterization of vein [facility] Start: 06-15-2022 Elevation of head of bed [facility] Start: 06-15-2022 Exercises [facility] Start: 06-15-2022 Implementation of planned interventions [facility] Start: 06-15-2022 Insertion of catheter into peripheral vein [facility] Start: 06-15-2022 Measuring intake and output [facility] Start: 06-15-2022 Notification of physician [facility] Start: 06-15-2022 Providing care according to standard [facility] Start: 06-15-2022 Provision of activity privileges [facility] Start: 06-15-2022 Referral to occupational therapist [facility] Start: 06-15-2022 Referral to service [facility] Start: 06-15-2022 Tobacco use cessation education [facility] Start: 06-15-2022 [facility] Start: 06-15-2022 Admission procedure [facility] Start: 06-15-2022 Patient referral to dietitian [facility] Start: 06-14-2022 [facility] Work Phone: Start: 02-17-2011 RSV High Risk: (Elderly (60+) or Population) (1 - 1-dose 75+ series) RSV High Risk: (Elderly (60+) or Population) (1 - 1-dose 75+ series) [facility] Start: 02-17-1986 Zoster Vaccines (1 of 2) Zoster Vaccines (1 of 2) [facility] Start: 02-17-1954 Diabetes mellitus screening Diabetes Screening [facility] Start: 1935 Lipid panel Lipid Panel [facility] Start: 1935 Medicare Annual Wellness Visit Medicare Annual Wellness Visit (AWV) [facility] Start: 1936 Screening for osteoporosis Bone Density Scan [facility] Bacteria identified in Blood by Culture Blood Culture [facility] Bacteria identified in Blood by Culture Blood Culture [facility] Bacteria identified in Urine by Culture Urine Culture [facility] Ova and parasites identified in Unspecified specimen by Light microscopy [facility] Ova and parasites identified in Unspecified specimen by Light microscopy [facility] Patient Education [facility] Work Phone: Patient referral [facility] Work Phone: Procedure [facility] Urine culture Urine Culture [facility] Work Phone: Urine culture [facility] Urine culture [facility] Immunizations Immunization Date Immunization Notes Care Provider Fa cility 06-26-2022 influenza, injectabl e, quadrivalent, preservative free Dr. Clinton Fowler Work Phone: [facility] 06-26-2022 influenza, seasonal, injectable Dr. Clinton Fowler Work Phone: [facility] 09-11-2021 tetanus toxoid, redu luis fernando diphtheria toxoid, and acellular pertussis vaccine, adsorbed [facility] 06-15-2021 Influenza virus vaccine [facility] 04-14-2021 Covid (Moderna) [facility] 09-02-2020 Covid (Moderna) [facility] 08-05-2020 Covid (Moderna) [facility] 07-14-2019 tetanus toxoid, redu luis fernando diphtheria toxoid, and acellular pertussis vaccine, adsorbed [facility] 06-14-2013 Influenza virus vaccine [facility] 07-16-2011 Pneumococcal Vaccine [facility] Work Phone: 07-16-2011 pneumococcal vaccine , unspecified formulation Dr. Clinton Fowler Work Phone: [facility] Payers Date Payer Category Payer Self-pay [id number] 2015 Medicare supplementa l policy (as second payer) [employer] MEDICARE SUPPLEMENT [id number] 2015 Private Health Insurance [id number] 2001 Medicare MEDICARE PART A AND B [id number] 2001 Medicare [id number] 1936 Unknown [id number] 9.2.1259 1936 Unknown [id number] 2.840.1.728318.3.57 9.2.125 1936 Unknown [id number] 2.16840.1.361808.3.57 9.2.1243 Unknown [id number] 2.16840.1.248520.3.57 9.2.462 Unknown [id number] 2.16.840.1.922803.3.57 9.2.462 Unknown [id number] 2.16840.1.063033.3.57 9.2.462 Unknown [id number] 2.16.840.1.684074.3.57 9.2.462 Unknown [id number] 2.16840.1.426833.3.57 9.2.462 Unknown [id number] 2.16.840.1.279592.3.57 9.2.462 Unknown [id number] 2.16.840.1.719190.3.57 9.2.462 Unknown [id number] 2.16.840.1.303420.3.57 9.2.462 Unknown [id number] 2.16.840.1.654075.3.57 9.2.462 Unknown [id number] 2.16.840.1.544903.3.57 9.2.462 Unknown [id number] 2.16.840.1.834910.3.57 9.2.462 Unknown [id number] 2.16.840.1.809474.3.57 9.2.462 Unknown [id number] 2.16.840.1.460775.3.57 9.2.462 Unknown [id number] 2.16.840.1.752931.3.57 9.2.462 Social History Date Type Detail Facility Start: 02-04-2022 End: 06-07-2023 Tobacco smoking status KSIS Unknown if ever smoked [facility] Start: 12-03-2018 None [facility] Start: 07-14-2019 Spouse/ Signif icant Other [facility] Start: 07-14-2019 Non-smoker [facility] Start: 1935 Sex Assigned At Female [facility] Start: 11-25-2024 End: 03-30-2025 Tobacco smoking status NHIS Never smoked tobacco [facility] Work Phone: Start: 11-25-2024 Tobacco use and exposure Smokeless tobacco non-user [facility] Work Phone: Start: 11-25-2024 Alcoholic beverage intake Lifetime non-drinker (finding) [facility] Work Phone: Start: 11-25-2024 History of Social function [facility] Work Phone: Start: 11-25-2024 Tobacco use panel [facility] Work Phone: Start: 1935 Sex assigned at Not on file [facility] Work Phone: Start: 11-15-2024 End: 11-25-2024 Exposure to SARS-CoV-2 (event) Not sure [facility] Goals Date Patient Goal Desired Activity /State Functional Status Date Assessment Result Facility 01-14-2023 Functional status Activity Abili ty With Assist of 1 [facility] Work Phone: 09-20-2022 Functional status Activity Abili ty With Assist of 2 [facility] Work Phone: 09-20-2022 Functional status Chair [facility] Work Phone: 06-16-2022 Functional status Ambulates;Shree r;Bathroom Privilege [facility] Work Phone: Mental Status Date Assessment Result Facility 03-30-2025 Cognitive function Awake;Alert;Disoriente d [facility] Work Phone: 02-22-2025 Cognitive function Level Of Cons ciousness Awake;Follows Commands [facility] Work Phone: 06-07-2023 Cognitive function Level Of Cons ciousness Awake;Disoriented [facility] Work Phone: 01-14-2023 Cognitive function Voice/Name [facility] Work Phone: 09-20-2022 Cognitive function Voice/Name [facility] Work Phone: 09-16-2022 Cognitive function Level Of Cons ciousness Awake;Lethargic;Inappropriate [facility] Work Phone: 06-16-2022 Cognitive function Voice/Name [facility] Work Phone: Clinical Notes 09-16-2022 to 05-16-2025 Note Date & Type Note Facility 05-16-2025 Note [facility] Medical Records Department [address] [place] [address] Discharge Summary 05/16/25 1405 MR#: [id number] Acct: [id number] Name: LIZA HANCOCK Rep #: [id number] : 1935 89 From: Dereck Oliveros MD PCP: Dr. Clinton Fowler, DO Status:ADM TARA Location: [place] [address] Providers Date of Admission: 05/13/25 Date of Discharge: 05/16/25 Primary Care Physician: Dr. Clintno Fowler, DO Reason For Visit: WEAKNESS, MILD BARBRA Diagnosis Discharge Diagnosis (1) Debility: Status: Acute Code(s): R53.81 - Other malaise Plan Patient is an 89-year-old lady with history of dementia with recent diagnosis of UTI brought to the emergency department with progressive generalized weakness 1. Physical deconditioning/debility ??? Secondary to patient recent UTI. Requested for PT OT eval and social media campaign manager to assist with discharge planning 05/15: Discussed with the supervisor case loading. Plan for possible discharge tomorrow. 2. Advanced [...] capsule 1,000 mg PO DAILY supplement 11/30/17 vlealfas-bph-uizcu acid 0.4 mg-lycopene 300 mcg-lutein 250 mcg [...] Extra Strength) 500 mg PO BID 06/07/23 dzzitb-cipbvlwn-hwoekbv 36,000-114,000-180,000 unit capsule,delay rel (Creon) 3 cap PO .[facility]300 caps 07/24/24 atorvastatin 40 mg tablet [...] Admitted with generaliz (more content not included)... [facility] 03-30-2025 Radiology Diagnostic study note [facility] Imaging Services [address] [place], [place] [address] Brain/Head without Contrast MR#: [id number] Acct: [id number] Name: LIZA HANCOCK Rep #: [id number] : 1935 F 89 From: Shagufta Lin MD PCP: Dr. Clinton Fowler, DO Status: REG ER Study:Brain/Head without Contrast Date of Exa m: 03/30/25 Exam# [id number] Ordering Dr: Ivette Oshea DO PROCEDURE: BRAIN/HEAD [...] matches brain involutional changes. Stable. Reading Location: [place] [address] CC: Dr. Clinton Fowler DO; Quentin Oshea DO ~ Shoe Laster: Signed [facility] 02-27-2025 Hospital Discharg e instructions Additional Instructions [...] any further concerns or worsening of symptoms [facility] Work Phone: 02-22-2025 Radiology Diagnostic study note [facility] Imaging Services [address] [place] [address] Chest PA and Lateral MR#: [id number] Acct: [id number] Name: LIZA HANCOCK Rep #: [id number] : 1935 F 89 From: Huyen Noble MD PCP: Dr. Clinton Fowler DO Status: [facility] ER Study:Chest PA and Lateral Date of Exam: 02/22/25 Exam# [id number] Ordering Dr: Sixto Alvarez DO PROCEDURE: CHEST [...] Lateral IMPRESSION: NO ACUTE FINDINGS. Reading Location: [facility] CC: Dr. Sixto Alvarez DO; Dr. Clinton Fowler DO ~ Shoe Laster: Signed [facility] 02-22-2025 Radiology Diagnostic study note [facility] Imaging Services [address] [place], [place] [address] Brain/Head without Contrast MR#: [id number] Acct: [id number] Name: LIZA HANCOCK Rep #: [id number] : 1935 F 89 From: Huyen Noble MD PCP: Dr. Clinton Fowler DO Status: REG ER Study:Brain/Head without Contrast Date of Exa m: 02/22/25 Exam# [id number] Ordering Dr: Sixto Alvarez DO EXAM: BRAIN/HEAD [...] IMPRESSION: No acute intracranial finding. Reading Location: [facility] CC: Dr. Sixto Alvarez DO; Dr. Clinton Fowler DO ~ Shoe Laster: Signed [facility] 12-11-2024 Evaluation note Diagnosis Onset Date Resolution Chronic anemia chronic December 11, 2024 1:48pm Exocrine pancreatic insufficiency chronic December 11, 2024 1:48pm GI bleed resolved December 11, 2024 1:48pm Loose stools inactive December 11 1:48pm [facility] Work Phone: 1(636) 713-595505-13-2025 History of Present illness Narrative* Libertad Whittaker, [...] through mask. Requesting compliance report from [facility]. Previously good compliance. Spouse does not note [...] Take 1 capsule (1,000 Units) by mouth. jffy-rsike-ZVS-aid-gaefypk-cmi 100 mg-100 mcg- 100 mg-100 mg capsule [...] Brother Alcohol abuse D[facility] Work [facility]: 1(803) 583-350305-13-2025 Instructions* Patient Instructions* JOSSY Abrams - 11/25/2024 1:00 PM EDT Continue to wear pap therapy every night Increase activity/exercise daily Follow up in 6 months [facility] Work [facility]: 1(616) 444-406111-23-2023 Discharge summary Author Nikki Jacques [facility] June 08, 2023 12:30am Note Date/Time June 07, 2023 11:19pm [facility] Medical Records Department [address] [place] [address] Emergency Department Summary 06/07/23 MR#: [id number] Acct: [id number] Name: LIZA HANCOCK Rep #:[id number] : 1935 88 From: Nikki Jacques MD [...] that hegave her hot chocolate before bed. [facility] Medical History Alzheimer disease AMS (altered [...] #30 tabs 12/03/17 [Rx Last Taken 01/11/23] yclizirn-vef-goece acid 0.4 mg-lycopene 300 mcg-lutein 250 mcg [...] #30 tabs 09/20/22 [Rx Last Taken 01/11/23] fhasvx-ndbygran-mybhyvj 36,000-114,000-180,000 unit capsule,delay rel (Creon) See Rx [...] Medical decision making narrative: Patient placed on director of placement. IV line initiated. Labwork obtained to evaluate [...] (Auto) 43.4 L Lymph % (Auto) 39.9 Porter % (Auto) 10.5 H Eos % (Auto) [...] 80 mg PO QHS Qty: 30 0RF zixopcvm-emx-UA-lycopen-lutein 1 EACH tablet 1 ea PO BID [...] your Primary Care Provider. Call [facility] ([phone]) or report to the closest Emergency Room. Call 911 if necessary. 06/08/23 0030 <Electronically signed by Nikki Jacques MD> Cosigner Signature (if applicable): CC: Dr. Clinton Fowler, DO ~ Signed [facility] Work Phone: 1(460) 479-382707-02-2023 Progress note Author Sixto Braswell [facility] January 14, 2023 1:35pm Note Date/Time January 14, 2023 9:08a m [facility] Medical Records Department [address] [place] [address] Progress Note - Hospitalist 01/14/23905 MR#: [id number] Acct: [id number] Name: LIZA HANCOCK Kimmy Rep #:[id number] : 1935 87 From: Sixto Braswell DO PCP: Dr. Clinton Fowler, DO Status:ADM IN Location: [place] [address] Reason for Visit Reason for Visit: Diagnoses [...] 01/13/23 15:16 TIRSO (Rec: 01/13/23 15:16 TIRSO [id number]) Nutrition Malnutrition Evidence of Malnutrition Exists Yes [...] % (Auto) 54.5, Lymph % (Auto) 31.1, Porter % (Auto) 9.1, Eos % (Auto) 3.6, [...] patient's , who is her power of trademark attorney,patient is to be DNR Comfort Care arrest. Discharge home. Charges/Coding Visit Charges Inpatient E&M: 97591 Subs Hosp L2 01/14/23 1335 <Electronically signed by Sixto Braswell DO> Cosigner Signature (if applicable): CC: ~ Signed [facility] Work Phone: 1(813) 373-725807-01-2023 Progress note Author Hung Adames [facility] January 13, 2023 8:16pm Note Date/Time January 13, 2023 8:15p m [facility] Medical Records Department [address] [place] [address] Progress Note - GI 01/13/232013 MR#: [id number] Acct: [id number] Name: LIZA HANCOCK Rep #:[id number] : 1935 87 From: Hung Adames DO PCP: Dr. Clinton Fowler, Status:ADM IN Location: [address] Subjective Subjective Patient had another [...] 01/13/23 15:16 TIRSO (Rec: 01/13/23 15:16 TIRSO [id number]) Nutrition Malnutrition Evidence of Malnutrition Exists Yes [...] % (Auto) 47.8, Lymph % (Auto) 36.7, Porter % (Auto) 10.2 H, Eos % (Auto) [...] Final 01/12/23 12:22 Stool Stool Occult Blood (JIIM) - Final Occult Blood Positive Physical Exam [...] to bleed. Charges/Coding Visit Charges Inpatient E&M: 98594 Subs Hosp L3 01/13/232015 <Electronically signed by Hung Adames DO> Cosigner Signature (if applicable): CC: ~ Signed [facility] Work Phone: 1(233) 870-276107-01-2023 Progress note Author Sixto Braswell [facility] January 13, 2023 11:08am Note Date/Time January 13, 2023 8:25a m [facility] Medical Records Department [address] [place] [address] Progress Note - Hospitalist 01/13/23820 MR#: [id number] Acct: [id number] Name: LIZA HANCOCK Kimmy Rep #:[id number] : 1935 87 From: Sixto Braswell DO PCP: Dr. Clinton Fowler, DO Status:ADM IN Location: [facility] [id number]- 1 Reason for Visit Reason for Visit: [...] % (Auto) 61.7, Lymph % (Auto) 27.4, Porter % (Auto) 7.1, Eos % (Auto) 2.0, [...] Clarity Clear, Urine pH 5.0, Ur Specific Ripon 1.015, Urine Protein Negative, Urine Glucose (UA) [...] % (Auto) 47.8, Lymph % (Auto) 36.7, Porter % (Auto) 10.2 H, Eos % (Auto) [...] patient's , who is her power of trademark attorney,patient is to be DNR Comfort Care arrest. Charges/Coding Visit Charges Inpatient E&M: 34677 Subs Hosp L2 01/13/23 1108 <Electronically signed by Sixto Braswell DO> Cosigner Signature (if applicable): CC: ~ Signed [facility] Work Phone: 1(804) 136-990506-30-2023 Consult note Author Hung Friend [facility] January 12, 2023 5:52pm Note Date/Time January 12, 2023 5:49 pm [facility] Medical Records Department [address] [place] [address] Consultation - GI 01/12/23 1749 MR#: [id number] Acct: [id number] Name: LIZA HANCOCK Rep #:[id number] : 1935 87 From: Hung Adames DO PCP: Dr. Clinton Fowler, DO Status:ADM IN Location: [place] [id number] HPI Consult Data Date of Consult: 01/12/23 [...] a non-smoker who lives with her . [facility] Medical History (Updated 01/12/23 @ 16:15 by [...] #30 tabs 12/03/17 [Rx Last Taken 01/11/23] wlqrsfng-qzh-egwwj acid 0.4 mg-lycopene 300 mcg-lutein 250 mcg [...] #30 tabs 09/20/22 [Rx Last Taken 01/11/23] xgirbk-cgqymubh-snscbkc 36,000-114,000-180,000 unit capsule,delay rel (Creon) See Rx [...] % (Auto) 61.7, Lymph % (Auto) 27.4, Porter % (Auto) 7.1, Eos % (Auto) 2.0, [...] Clarity Clear, Urine pH 5.0, Ur Specific Ripon 1.015, Urine Protein Negative, Urine Glucose (UA) [...] EDT Reading Location ID and State: [facility] / [place] , Service support , Assessment & Plan [...] blood thinners. Charges/Coding Visit Charges Inpatient E&M: 32089 Subs Hosp L2 01/12/23 5798 <Electronically signed by Hung Adames DO> Cosigner Signature (if applicable): CC: Dr. Clinton Fowler DO~ Signed [facility] Work Phone: 1([phone]) 707-974406-30-2023 Discharge summary Author Isiah Winn [facility] January 12, 2023 4:48pm Note Date/Time January 12, 2023 12:2 8pm [facility] Medical Records Department [address] [place] [address] Emergency Department Summary 01/12/23 MR#: [id number] Acct: [id number] Name: LIZA HANCOCK Rep #:[id number] : 1935 87 From: Isiah Osuna PCP: Dr. Clinton Fowler DO Status:ADM IN Location: [place] [id number]- 1 HPI HPI - GI History of [...] has not been transfused in the past. [facility] Medical History (Updated 01/12/23 @ 16:15 [...] #30 tabs 12/03/17 [Rx Last Taken 01/11/23] gyiwauni-kug-zfmrm acid 0.4 mg-lycopene 300 mcg-lutein 250 mcg [...] #30 tabs 09/20/22 [Rx Last Taken 01/11/23] bponjo-spywrhpg-zovxhgr 36,000-114,000-180,000 unit capsule,delay rel (Creon) See Rx [...] Dr. Braswell. This note was generated with Plixi dictation software. It may contain incorrectwords, spelling, [...] % (Auto) 61.7 Lymph % (Auto) 27.4 Porter % (Auto) 7.1 Eos % (Auto) 2.0 [...] Clarity Clear Urine pH 5.0 Ur Specific Ripon 1.015 Urine Protein Negative Urine Glucose (UA) [...] disease, Weakness Disposition Disposition: Acute Care Hospital [facility] What to do if you have Problems For any increased pain, shortness of breath, bleeding, nausea or vomiting, chestpain, or any unexpected problems, contact your Primary Care Provider. Call [facility] ([phone]) or report to the closest Emergency Room. Call 911 if necessary. 01/12/23 1648 <Electronically signed by Isiah Osuna> Cosigner Signature (if applicable): CC: Dr. Clinton Fowler DO ~ Signed [facility] Work Phone: 1(556) 290-313506-30-2023 History and physical note Author Sixto Braswell [facility] January 12, 2023 2:24pm Note Date/Time January 12, 2023 2:24 pm [facility] Medical Records Department [address] [place] [address] H&P Exam - Hospitalist 01/12/23 1419 MR#: [id number] Acct: [id number] Name: LIZA HANCOCK Rep #:[id number] : 1935 87 From: Sixto Braswell DO PCP: Dr. Clinton Fowler DO Status:ADM IN Location: [facility] [id number]- 1 HPI - General General Date of [...] typical of her baseline accordingto her . [facility] Medical History Alzheimer disease AMS (altered mental [...] #30 tabs 12/03/17 [Rx Last Taken 01/11/23] vtwqyokn-qfa-hcoqs acid 0.4 mg-lycopene 300 mcg-lutein 250 mcg [...] #30 tabs 09/20/22 [Rx Last Taken 01/11/23] ucdecu-jxxlmlem-vmvwpvw 36,000-114,000-180,000 unit capsule,delay rel (Creon) See Rx [...] % (Auto) 61.7, Lymph % (Auto) 27.4, Porter % (Auto) 7.1, Eos % (Auto) 2.0, [...] Clarity Clear, Urine pH 5.0, Ur Specific Ripon 1.015, Urine Protein Negative, Urine Glucose (UA) [...] time. GI on consult Hold aspirin and srdbbnvjtt-sevq-yos for now. Clear liquid diet (2) Delirium: [...] patient's , who is her power of trademark attorney,patient is to be DNR Comfort Care arrest. Charges/Coding Visit Charges Inpatient E&M: 97436 Init Hosp L3 01/12/23 1424 <Electronically signed by Sixto Braswell DO> Cosigner Signature (if applicable): CC: Dr. Sixto Braswell DO; Dr. Clinton Fowler DO~ Signed [facility] Work Phone: 1(141) 196-556803-07-[address] Verma [facility] September 19, 2022 5:39pm Note Date/Time September 18, 2022 1:37 pm [facility] Medical Records Department [address] [place] [address] Progress Note 09/18/22 1336 MR#: [id number] Acct: [id number] Name: LIZA HANCOCK Rep #:[id number] : 1935 87 From: Isa Verma MD PCP: Dr. Clinton Fowler DO Status:ADM IN Location: [place] [address] Subjective Subjective Patient seen and examined. She [...] % (Auto) 57.8, Lymph % (Auto) 28.2, Porter % (Auto) 9.7, Eos % (Auto) 2.9, [...] prophylaxis: Lovenox Charges/Coding Visit Charges Inpatient E&M: 75388 Subs Hosp L2 09/19/22 1739 <Electronically signed by Isa Verma MD> Isa Vrema MD Cosigner Signature (if applicable): CC: ~ Signed [facility] Work Phone: 1(588) 531-548203-07-[address] Verma [facility] September 19, 2022 2:34pm Note Date/Time September 19, 2022 2:34 pm [facility] Medical Records Department [address] [place] [address] Progress Note 09/19/22 1426 MR#: [id number] Acct: [id number] Name: LIZA HANCOCK Rep #:[id number] : 1935 87 From: Isa Verma MD PCP: Dr. Clinton Fowler, DO Status:ADM IN Location: [place] [address] Subjective Subjective Patient seen and examined. She [...] % (Auto) 59.7, Lymph % (Auto) 25.5, Porter% (Auto) 10.5 H, Eos % (Auto) 2.9, [...] doingwith therapy. Charges/Coding Visit Charges Inpatient E&M: 64218 Subs Hosp L2 09/19/22 2525 <Electronically signed by Isa Verma MD> Isa Verma MD Cosigner Signature (if applicable): CC: ~ Signed [facility] Work Phone: 1(210) 740-589603-06-[address] Verma [facility] September 18, 2022 1:35pm Note Date/Time September 18, 2022 1:36 pm [facility] Medical Records Department [address] [place] [address] Telemedicine Confirmation Receipt 09/18/22 MR#: [id number] Acct: [id number] Name: LIZA HANCOCK Rep #:[id number] : 1935 87 From: Isa Verma MD PCP: Dr. Clinton Fowler, DO Status:ADM IN [facility] has confirmed receipt of a request for visit. This document confirms receipt of the order initiating the consult. To find the results of the consultation, please view the patient's reports for the scanned Telemed Consult. [facility] Work Phone: 1(573) 293-543503-05-[address] Chawla [facility] September 17, 2022 4:41pm Note Date/Time September 17, 2022 7:15 am [facility] Medical Records Department [address] [place] [address] Progress Note - Hospitalist 09/17/22 0707 MR#: [id number] Acct: [id number] Name: LIZA HANCOCK Rep #:[id number] : 1935 87 From: Maria D Chalwa MD PCP: Dr. Clinton Fowler, DO Status:ADM IN Location: HI3 [id number] Reason for Visit Reason for Visit: Diagnoses [...] % (Auto) 57.8, Lymph % (Auto) 30.3, Porter % (Auto) 8.6, Eos % (Auto) 1.9, [...] Clarity Clear, Urine pH 5.0, Ur Specific Ripon 1.015, Urine Protein Negative, Urine Glucose (UA) [...] 16:54 EST Reading Location ID and State: [facility] / [place] Tel , Service support , Chest X-Ray [...] No overt focal neurological deficits, handgrip equal, inmssv-dj-oqnu bilaterally without difficulty, able to lift and [...] culture. Urine culture with gram-negative lester lactose charge hand but UA had nitrate but no leuk [...] documentation, 30minutes Charges/Coding Visit Charges Inpatient E&M: 87526 Subs Hosp L2 09/17/22 1641 <Electronically signed by Maria D Chawla MD> Cosigner Signature (if applicable): CC: ~ Signed [facility] Work Phone: [phone]) 906-204203-05-[address] Paredes [facility] September 17, 2022 5:58am Note Date/Time September 17, 2022 5:58 am [facility] Medical Records Department [address] [place] [address] Progress Note 09/17/22 0555 MR#: [id number] Acct: [id number] Name: LIZA HANCOCK Rep #:[id number] : 1935 87 From: Foreign Paredes MD PCP: Dr. Clinton Fowler, DO Status:ADM IN Location: [place] [address] Progress Note Preliminary blood culture; one with gram positive rods in chains. Patient has no fever or leukocytosis. Likely contaminant. 09/17/22 0558 <Electronically signed by Foreign Paredes MD> Foreign Paredes MD Cosigner Signature (if applicable): CC: ~ Signed [facility] Work Phone: 1([phone]) 301-896403-04-2023 History and physical note Author Dr. Buckner [facility] September 16, 2022 8:11pm Note Date/Time September 16, 2022 6:43 pm [facility] Medical Records Department [address] [place] [address] H&P Exam - Hospitalist 09/16/22 1839 MR#: [id number] Acct: [id number] Name: LIZA HANCOCK Rep #:[id number] : 1935 87 From: Estrella Buckner DO PCP: Dr. Clinton Fowler, DO Status:ADM IN Location: MS3 [id number] HPI - General General Date of Admission: 09/16/22 Date of Service: 09/16/22 Chief Complaint: MS aBtista HPI Narrative LIZA HANCOCK, is a 87 F who presented to the emergency department at [facility] with her on 09/16/2022 after she [...] with no injuries. Both falls happened within o19-tnnp period. She ambulates in the home by [...] this prohibited the from taking her home. [facility] Medical History Alzheimer disease AMS (altered mental [...] #30 tabs 12/03/17 [Rx Last Taken 09/15/22] eeordwex-bjl-vfysm acid 0.4 mg-lycopene 300 mcg-lutein 250 mcg [...] PO QHS 06/14/22 [History Last Taken 09/15/22] wjzjzj-uozqmynm-ohpmfqc 36,000-114,000-180,000 unit capsule,delay rel (Creon) See Rx [...] % (Auto) 57.8, Lymph % (Auto) 30.3, Porter % (Auto) 8.6, Eos % (Auto) 1.9, [...] Clarity Clear, Urine pH 5.0, Ur Specific Ripon 1.015, Urine Protein Negative, Urine Glucose (UA) [...] 16:54 EST Reading Location ID and State: [facility] / [place] Tel , Service support , Chest X-Ray [...] on admission Charges/Coding Visit Charges Inpatient E&M: 93071 Init Hosp L3 09/16/222010 <Electronically signed by Estrella Buckner DO> Cosigner Signature (if applicable): CC: Dr. Estrella Buckner DO; Dr. Clinton Fowler DO~ Signed [facility] Work Phone: [phone] Thomas [facility] September 16, 2022 6:52pm Note Date/Time September 16, 2022 3:34 pm [facility] Medical Records Department [address] [place] [address] Emergency Department Summary 09/16/22 MR#: [id number] Acct: [id number] Name: LIZA HANCOCK Rep #:[id number] : 1935 87 From: Moncho Thomas MD [...] #30 tabs 12/03/17 [Rx Last Taken 09/15/22] rqvhgrxm-emm-zyvch acid 0.4 mg-lycopene 300 mcg-lutein 250 mcg [...] PO QHS 06/14/22 [History Last Taken 09/15/22] xerkqh-brzedcon-batsidp 36,000-114,000-180,000 unit capsule,delay rel (Creon) See Rx [...] % (Auto) 57.8 Lymph % (Auto) 30.3 Porter % (Auto) 8.6 Eos % (Auto) 1.9 [...] Color Urine Clarity Urine pH Ur Specific Ripon Urine Protein Urine Glucose (UA) Urine Ketones [...] (Auto) Neut % (Auto) Lymph % (Auto) Porter % (Auto) Eos % (Auto) Baso % [...] Clarity Clear Urine pH 5.0 Ur Specific Ripon 1.015 Urine Protein Negative Urine Glucose (UA) [...] rate of 73 no acute signs of CO or ischemia. No significant change from a [...] 30 0RF Hold Instructions: Resume on 09/16/21. akcllcsc-iaj-YP-lycopen-lutein 1 EACH tablet 1 ea PO BID [...] Provider] - Disposition Disposition: Acute Care Hospital [facility] What to do if you have Problems For any increased pain, shortness of breath, bleeding, nausea or vomiting, chestpain, or any unexpected problems, contact your Primary Care Provider. Call [facility] ([phone]) or report to the closest Emergency Room. Call 911 if necessary. 09/16/221851 <Electronically signed by Moncho Thomas MD> Cosigner Signature (if applicable): CC: Dr. Clinton Fowler DO ~ Signed [facility] Work Phone: [phone] Thomas [facility] September 16, 2022 6:52pm Note Date/Time September 16, 2022 3:34 pm [facility] Medical Records Department [address] [place] [address] Emergency Department Summary 09/16/22 MR#: [id number] Acct: [id number] Name: LIZA HANCOCK Rep #:[id number] : 1935 87 From: Moncho Thomas MD [...] #30 tabs 12/03/17 [Rx Last Taken 09/15/22] lpzacqru-wof-etqaq acid 0.4 mg-lycopene 300 mcg-lutein 250 mcg [...] PO QHS 06/14/22 [History Last Taken 09/15/22] fmhthr-eliurhrr-autqdxq 36,000-114,000-180,000 unit capsule,delay rel (Creon) See Rx [...] % (Auto) 57.8 Lymph % (Auto) 30.3 Porter % (Auto) 8.6 Eos % (Auto) 1.9 [...] Color Urine Clarity Urine pH Ur Specific Ripon Urine Protein Urine Glucose (UA) Urine Ketones [...] (Auto) Neut % (Auto) Lymph % (Auto) Porter % (Auto) Eos % (Auto) Baso % [...] Clarity Clear Urine pH 5.0 Ur Specific Ripon 1.015 Urine Protein Negative Urine Glucose (UA) [...] rate of 73 no acute signs of CO or ischemia. No significant change from a [...] 30 0RF Hold Instructions: Resume on 09/16/21. zwqpxegn-lfw-QW-lycopen-lutein 1 EACH tablet 1 ea PO BID [...] Provider] - Disposition Disposition: Acute Care Hospital [facility] What to do if you have Problems For any increased pain, shortness of breath, bleeding, nausea or vomiting, chestpain, or any unexpected problems, contact your Primary Care Provider. Call [facility] ([phone]) or report to the closest Emergency Room. Call 911 if necessary. 09/16/22 5862 <Electronically signed by Moncho Thomas MD> Cosigner Signature (if applicable): CC: Dr. Clinton Fowler DO ~ Signed [facility] Work Phone: Discharge summary Author Dr. Verma [facility] September 20, 2022 4:56pm Note Date/Time September 20, 2022 4:56 pm [facility] Medical Records Department [address] [place] [address] Discharge Summary 09/20/22 1643 MR#: [id number] Acct: [id number] Name: LIZA HANCOCK Rep #:[id number] : 1935 87 From: Isa Verma MD PCP: Dr. Clinton Fowler DO Status:ADM IN Location: [place] [address] Providers Date of Admission: 09/16/22 Date of [...] 75 mg PO DAILY #30 tabs 12/03/17 mnyjnlml-zsl-cnlxx acid 0.4 mg-lycopene 300 mcg-lutein 250 mcg [...] mg tablet 10 mg PO QHS 06/14/22 wmtdyf-agefwmbb-ijfcoig 36,000-114,000-180,000 unit capsule,delay rel (Creon) See Rx [...] Neut % (Auto) 63.8, Lymph % (Auto) 23.9,Porter % (Auto) 9.7, Eos % (Auto) 1.5, [...] 30 0RF Hold Instructions: Resume on 09/16/21. zmokzfzm-bhp-OO-lycopen-lutein 1 EACH tablet 1 ea PO BID [...] Health Service Charges/Coding Visit Charges Inpatient E&M: 00896 Disch Hosp >30min 09/20/221655 <Electronically signed by Isa Verma MD> Cosigner Signature (if applicable): CC: Dr. Clinton Fowler DO; Dr. Isa Verma MD~ Signed [facility] Work Phone: Discharge summary Author Dr. Verma [facility] September 20, 2022 4:58pm Note Date/Time September 20, 2022 4:58 pm [facility] Medical Records Department [address] [place] [address] Instructions for Home/Discharge Instructions 09/20/221656 MR#: [id number] Acct: [id number] Name: LIZA HANCOCK Rep #:[id number] : 1935 87 From: Isa Verma MD [...] 30 0RF Hold Instructions: Resume on 09/16/21. eeibwrqd-jmp-CZ-lycopen-lutein 1 EACH tablet 1 ea PO BID [...] Isa Verma MD>Isa Verma MD CC: Dr. sEtrella Buckner DO; Dr. Clinton Fowler DO; Dr. Maria D Chawla MD ~ Signed [facility] Work Phone: Discharge summary Author Sixto Braswell [facility] January 14, 2023 1:41pm Note Date/Time January 14, 2023 1:38p m [facility] Medical Records Department [address] [place] [address] Instructions for Home/Discharge Instructions 01/14/23 1335 MR#: [id number] Acct: [id number] Name: HANCOCKLIZA Rep #:[id number] : 1935 87 From: Sixto Braswell DO [...] 80 mg PO QHS Qty: 30 0RF laalwuyq-itu-RO-lycopen-lutein 1 EACH tablet 1 ea PO BID [...] PO BID Referrals / Follow Up: Clinton Fowlre DO [Primary Care Provider] - Within 2 Weeks Disposition Disposition (needs filled in before D/C Order can be placed): Home, Self Care 01/14/23 1341<Electronically signed by Sixto Braswell DO>Sixto Braswell DO CC: Dr. Clinton Fowler, ~ Signed [facility] Work Phone: Discharge summary Author Sixto Braswell [facility] January 14, 2023 1:43pm Note Date/Time January 14, 2023 1:43p m [facility] Medical Records Department [address] [place] [address] Discharge Summary 01/14/23 1341 MR#: [id number] Acct: [id number] Name: LIZA HANCOCK Rep #:[id number] : 1935 87 From: Sixto Braswell DO PCP: Dr. Clinton Fowler DO Status:ADM IN Location: [facility] [id number] Providers Date of Admission: 01/12/23 Primary Care Physician: Dr. Clinton Fowler DO Consultations 01/12/23 16:57 Consult: Gastroenterology Routine Consulting Provider: [facility] Reason for Consult: GI bleed EMERGENT [...] patient's , who is her power of trademark attorney,patient is to be DNR Comfort Care [...] 80 mg PO QHS #30 tabs 12/03/17 qnibeajt-smv-oqudo acid 0.4 mg-lycopene 300 mcg-lutein 250 mcg [...] 81 mg PO BREAKFAST #30 tabs 09/20/22 hbbciv-myakqiao-feweugf 36,000-114,000-180,000 unit capsule,delay rel (Creon) See Rx [...] Document 01/13/23 15:16 TIRSO (Rec: 01/13/23 15:16 [facility] [id number]) Nutrition Malnutrition Evidence of Malnutrition Exists Yes [...] % (Auto) 54.5, Lymph % (Auto) 31.1, Porter % (Auto) 9.1, Eos % (Auto) 3.6, [...] 80 mg PO QHS Qty: 30 0RF nbcdqknw-lpr-RI-lycopen-lutein 1 EACH tablet 1 ea PO BID [...] Self Care Charges/Coding Visit Charges Inpatient E&M: 34788 Disch Hosp >30min 01/14/23 1343 <Electronically signed by Sixto Braswell DO> Cosigner Signature (if applicable): CC: Dr. Sixto Braswell DO; Dr. Clinton Fowler DO~ Signed [facility] Work Phone: Evaluation noteNo assessment information available [facility] Work Phone: Evaluation note* Diagnosis Onset Date Resolution Status AMS (altered mental status) acute Hypoglycemia acute Stroke-like symptoms acute Dementia chronic DM (diabetes mellitus), type 2 chronic [facility] Work Phone: Evaluation note* Diagnosis Onset Date Resolution Status Hypoglycemia resolved Stroke-like symptoms resolve d Loose stools chronic [facility] Work Phone: Evaluation note* Diagnosis Onset Date Resolution Status Hypoglycemia resolved Stroke-like symptoms resolve d Loose stools chronic Falls acute Hyperglycemia acute Mental status alteration acu te [facility] Work Phone: Evaluation note* Diagnosis Onset Date Resolution Status Hypoglycemia resolved Stroke-like symptoms resolve d Loose stools chronic Falls acute Hyperglycemia acute Mental status alteration acu te CVA (cerebral vascular accident) chronic [facility] Work Phone: Evaluation note* Diagnosis Onset Date Resolution Status Loose stools chronic Hyperglycemia resolved [facility] Work Phone: Evaluation note* Diagnosis Onset Date Resolution Status CVA (cerebral vascular accident) acute Hyperglycemia resolved Exocrine pancreatic insufficiency chronic Acute blood loss anemia acut e Alzheimer disease acute Anemia acute Bright red rectal bleeding a cute CVA (cerebral vascular accident) acute Delirium acute GI bleed acute Weakness acute Exocrine pancreatic insufficiency chronic [facility] Work Phone: Evaluation note* Diagnosis Onset Date Resolution Status Weakness acute Acute blood loss anemia reso lved Bright red rectal bleeding r esolved Delirium resolved GI bleed resolved [facility] Work Phone: Evaluation note* Diagnosis Onset Date Resolution Status Cough acute Viral upper respiratory illness acute Chronic anemia chronic Exocrine pancreatic insufficiency chronic GI bleed resolved [facility] Work Phone: Evaluation note* Diagnosis TOBY (obstructive sleep apnea)- Primary Obstructive sleep apnea (adult) (pediatric) PLMD (periodic limb movement disorder) Periodic limb movement disorder Dementia without behavioral disturbance (Multi) Hypersomnia Hypersomnia, unspecified documented in this encounter [facility] Work Phone: History and physical note Author Dr. Buckner [facility] September 16, 2022 8:11pm Note Date/Time September 16, 2022 6:43 pm [facility] Medical [facility] Department [address] [address] [place] [address] H&P Exam - Hospitalist 09/16/22 1839 MR#: [id number] Acct: [id number] Name: LIZA HANCOCK Rep #:[id number] : 1935 87 From: Estrella Buckner DO PCP: Dr. Clinton Fowler, DO Status:ADM IN Location: [facility] [id number] HPI - General General Date of Admission: 09/16/22 Date of Service: 09/16/22 Chief Complaint: MS Lynne HPI Narrative LIZA HANCOCK, is a 87 F who presented to the emergency department at [facility] with her on 09/16/2022 after she [...] with no injuries. Both falls happened within e00-zbdw period. She ambulates in the home by [...] this prohibited the from taking her home. [facility] Medical History Alzheimer disease AMS (altered mental [...] #30 tabs 12/03/17 [Rx Last Taken 09/15/22] wwrqqgzo-axj-wyaah acid 0.4 mg-lycopene 300 mcg-lutein 250 mcg [...] PO QHS 06/14/22 [History Last Taken 09/15/22] hxtheh-cmtydpau-ftcdaou 36,000-114,000-180,000 unit capsule,delay rel (Creon) See Rx [...] % (Auto) 57.8, Lymph % (Auto) 30.3, Porter % (Auto) 8.6, Eos % (Auto) 1.9, [...] Clarity Clear, Urine pH 5.0, Ur Specific Ripon 1.015, Urine Protein Negative, Urine Glucose (UA) [...] on admission Charges/Coding Visit Charges Inpatient E&M: 82718 Init Hosp L3 09/16/222010 <Electronically signed by Estrella Buckner DO> Cosigner Signature (if applicable): CC: Dr. Estrella Buckner, ; Dr. Clinton Fowler DO~ Signed [facility] Work Phone: Reason for referral (narrative)No reason for referral [facility] Work Phone: Chief Complaint and Reason for [...] No February 04, 2022 3:57pm Power of Celery Cutter No February 04 3:57pm Advance Directive Response Recorded Date/ Time Advance Directives No August 8:15pm Living Will No June 15 1:18am Power of Celery Cutter No June 15, 2022 1:18am Advance Directive Response Recorded Date/ Time Advance Directives No August 8:15pm Living Will No September 16, 2022 3:29pm Power of Celery Cutter No September 16 3:29pm Advance Directive Response Recorded Date/ Time Advance Directives No August 8:15pm Living Will No September 16, 2022 8:19pm Power of Celery Cutter No September 16 8:19pm Advance Directive Response Recorded Date/ Time Advance Directives No August 9:15pm Living Will No September 16, 2022 9:19pm Power of Celery Cutter No September 16 9:19pm Advance Directive Response Recorded Date/ Time Advance Directives No August 9:15pm Living Will No January 12, 2023 4:07pm Power of Celery Cutter No January 12 4:07pm Advance Directive Response Recorded Date/ Time Advance Directives No August 8:15pm Living Will No June 07, 2 023 11:53pm Power of Celery Cutter No June 07, 2023 11:53pm Advance Directive Response Recorded Date/ Time Advance Directives No August 9:15pm Living Will No June 08, 2 023 12:53am Power of Celery Cutter No June 08, 2023 12:53am Advance Directive Response Recorded Date/ Time Advance Directives No August 9:15pm Advance Directive Response Recorded Date/ Time Do you have a Healthcare Power of Celery Cutter? No February 22, 2025 2:45pm Advance Directives No August 9:15pm Advance Directive Response Recorded Date/ Time Do you have a Healthcare Pow er of Celery Cutter? No February 22, 2025 2:45pm Do you have a Healthcare Pow er of Celery Cutter? Yes March 30, 2025 2:01am Name of Medical Power of Celery Cutter mat--vanessa kramer March 30, 2025 2:01am Advance [...] Provider, Referrin g Provider Active Inessa Hall MEAT SOAKER, MEAT SOAKER-C Attending Provider Active Team Status: Inactive Member [...] Primary Care Provider, Attendin g Provider Active Water Jet Loom Fixer Relationship Specialty Start Date End Date Clinton Fowler DO [address] [place] [phone] PCP - General Family Medicine 11/25/24 Team [...] section and content) DATE CREATED AUTHOR 01/28/2024 [facility] DATE CREATED AUTHOR AUTHOR'S ORGANIZ ATION 05/06/[address] [facility] DATE CREATED AUTHOR AUTHOR'S ORGANIZ ATION 05/16/2025 [facility] Reason for Visit (unrecogniz ed section and [...] BE BASED ON THE PRIMARY CLINICAL RECORDS. [employer] provides no warranty or guarantee of the accuracy or completeness of information in this document.
[2025-05-16 22:39] VITALS: BP 145/88; PULSE 74; RESP 22; TEMP 36.7; O2SAT 95
[2025-05-16 22:40] VITALS: BMI 26.9
[2025-05-17] MEDS: Heparin Injection (Vial) 5,000 UNIT/ML VIAL 5000 UNIT SC ×3 (00:11→22:04)
[2025-05-17] MEDS: Memantine Hydrochloride 10 MG Tablet PO ×3 (00:12→22:01)
[2025-05-17] MEDS: MELATONIN 3 MG TABLET PO (00:12)
[2025-05-17 05:52] LABS: Hematocrit 33.5 % (37-47); Hemoglobin 11.3 g/dL (12.0-15.0); Immature Granulocytes Count 0.030 X10^3/uL (0.0-0.0); Mean Corp Hgb Conc 33.7 g/dL (32-36); Mean Corpuscular Volume 92.8 fL (81-99); Mean Platelet Vol. 9.6 fl (6.2-12.0); NRBC Flagged by Analyzer 0 % (0-5); Platelet Count 170 K/mm3 (150-450); RBC Distribution Width CV 12.3 % (11.6-14.6); RBC Distribution Width SD 42.5 fl (35.1-43.9); Red Blood Count 3.61 M/mm3 (4.2-5.4); White Blood Count 8.0 K/mm3 (4.4-11.0)
[2025-05-17 06:17] LABS: AST(SGOT) 45 U/L (<=31); Alanine Aminotransfer ALT/SGPT 32 U/L (<=34); Albumin, Serum 3.5 g/dL (3.4-4.8); Alkaline Phosphatase 92 U/L (35-104); Anion Gap 11 (5-15); BUN 28 mg/dL (4-19); BUN/Creat Ratio 26.0 RATIO (10-20); Calcium,Total 9.4 mg/dL (7.6-11.0); Carbon Dioxide 19.8 mmol/L (21.0-32.0); Chloride 102 mmol/L (98-108); Estimated Creatinine Clearance 32.89 ml/min (50-250); Globulin 2.9 g/dL (2.2-4.2); Glucose 148 mg/dL (70-99); Potassium 4.5 mmol/L (3.3-5.1)
[2025-05-17 06:46] VITALS: BP 136/75; PULSE 85; RESP 20; TEMP 36.7; O2SAT 95
[2025-05-17] MEDS: FLU VACCINE HIGH DOSE 25-26(65YR UP) 180 MCG/0.5 ML SYRINGE IM (07:51)
[2025-05-17] MEDS: Glucerna Shake 120 ML LIQUID PO ×2 (07:55→16:10)
[2025-05-17 08:01] VITALS: BP 129/72; PULSE 65; RESP 16; TEMP 36.3; O2SAT 98
[2025-05-17 09:05] VITALS: O2SAT 93
[2025-05-17] MEDS: LIPASE/PROTEASE/AMYLASE 1 EACH CAPSULE.DR 3 EACH PO ×2 (11:07→14:13)
--- NOTE | 2025-05-17 11:24 | PN.HOSP_ITS ---
Reason for Visit Chief Complaint: Adult FTT. Objective Data Objective Data Vital Signs: Vital Signs Temp Pulse Resp BP Pulse Ox O2 Del Method 97.4 F L 65 16 129/72 H 93 Room Air 05/17/25 08:01 05/17/25 08:01 05/17/25 08:01 05/17/25 08:01 05/17/25 09:05 05/17/25 08:02 Oxygen Delivery Method Room Air Weight: 151 lb 14.376 oz Body Mass Index (BMI) 26.9 Intake & Output: Intake and Output for Last 24 Hours 05/15/25 05/16/25 05/17/25 23:59 23:59 22:59 Output Total 100 / 100 Balance -100 / -100 Lab / Micro Data 05/17/25 05:44 05/17/25 05:44 Labs: Laboratory Results - last 24 hr 05/17/25 00:29: POC Glucose 152 H 05/17/25 05:44: WBC 8.0, RBC 3.61 L, Hgb 11.3 L, Hct 33.5 L, MCV 92.8, MCH 31.3, MCHC 33.7, RDW Std Deviation 42.5, RDW Coeff of Marcio 12.3, Plt Count 170, MPV 9.6, Immature Gran % (Auto) 0.400, Neut % (Auto) 57.0, Lymph % (Auto) 28.9, Candler % (Auto) 9.8, Eos % (Auto) 3.0, Baso % (Auto) 0.9, Absolute Neuts (auto) 4.6, Absolute Lymphs (auto) 2.32, Nucleated RBC % 0, Sodium 133, Potassium 4.5, Chloride 102, Carbon Dioxide 19.8 L, Anion Gap 11, BUN 28 H, Creatinine 1.08, E stim Creat Clear Calc 32.89 L, Est GFR (MDRD) Non-Af 49 L, BUN/Creatinine Ratio 26.0 H, Glucose 148 H, Calcium 9.4, Total Bilirubin 0.49, AST 45 H, ALT 32, Alkaline Phosphatase 92, Total Protein 6.4, Albumin 3.5, Globulin 2.9, Albumin/Globulin Ratio 1.2 05/17/25 11:03: POC Glucose 176 H Physical Exam Narrative Patient was seen and examined Was discharged yesterday but came back yesterday as her could not get her inside the house or take care of himself. This was a problem last time Physical exam General: Sleeping, wakes up on exam. Intermittent confusion/dementia HEENT: Atraumatic, PERRLA, EOMI, Normocephalic. Oral: No Gingival or Mucosal Lesions/ Ulcerations Neck: Supple, No JVD, Negative Carotid Bruits Chest wall/Lungs: Air entry diminished in bilateral lung bases. No crepitation/rhonchi Cardiovascular: Regular rate and rhythm, Normal S1,S2, systolic murmur Abdomen: Bowel Sounds Present, Soft, Non Tender, Non-Distended : No dysuria. No renal angle tenderness. No suprapubic tenderness. Extremities: No edema, Capillary Refill Less than 3 Seconds Skin: No rashes, No breakdown Musculoskeletal: No Tenderness to Palpation of Joints or Extremities Neurological: Cranial nerves II-XII grossly intact, DTR 2+/4. No acute focal neurological deficit. Psych/Mental Status: Flat affect dementia Assessment & Plan Assessment/Plan (1) Adult failure to thrive: PLAN: Plan This 31-year-old female was admitted as has been was unable to get out of the car and her legs were not moving or working. #1. Adult failure to thrive, debility with recent inpatient admission and acute on chronic debility with cannot take care of: Patient is readmitted for longterm placement. PT OT and block and case maker consulted. #2. Advanced dementia of unclear type with unclear behavioral disturbance history: Patient on donezepil and memantine. Continue supportive care orientation cues. Will need follow-up with psychiatrist for further help as an outpatient. 3. Recent cystitis with Klebsiella Recent urine culture shows Klebsiella pneumoniae more than 100,000 colonies on 05/05. No acute issues now. Patient was on multiple antibiotics in the past, still lingering on home medications, nitrofurantoin and Bactrim DS and that were discontinued on recent discharge summary yesterday #4. Chronic normocytic anemia/iron deficiency anemia: Labs 05/16/2020 5 AM hemoglobin 11.6, MCV 91.9, continue iron supplementation. #5. Diabetes mellitus type II: Hold oral home regimen, maintain on ADA diet, accu checks w/ ISS. Glucose 152 #6. Hypertension: Continue home regimen including ramipril with hold parameters as needed, PRN hydralazine. #7. Hyperlipidemia: Will continue patient on statin therapy. #8. Chronic exocrine pancreatic insufficiency: Will continue Creon with meals. #9. GERD: Will continue patient on PPI. #10. Restless leg syndrome: Will continue patient home Requip regimen. #11. TOBY: Will attempt CPAP nightly given its documented that she utilizes. If patient is agitated by this certainly can hold. #12. DVT prophylaxis: Heparin. #13. CODE STATUS: DNR-CCA, no intubation. Laboratory Results 05/17/25 00:29: POC Glucose 152 H 05/17/25 05:44: WBC 8.0, RBC 3.61 L, Hgb 11.3 L, Hct 33.5 L, MCV 92.8, MCH 31.3, MCHC 33.7, RDW Std Deviation 42.5, RDW Coeff of Marcio 12.3, Plt Count 170, MPV 9.6, Immature Gran % (Auto) 0.400, Neut % (Auto) 57.0, Lymph % (Auto) 28.9, Candler % (Auto) 9.8, Eos % (Auto) 3.0, Baso % (Auto) 0.9, Absolute Neuts (auto) 4.6, Absolute Lymphs (auto) 2.32, Nucleated RBC % 0, Sodium 133, Potassium 4.5, Chloride 102, Carbon Dioxide 19.8 L, Anion Gap 11, BUN 28 H, Creatinine 1.08, E stim Creat Clear Calc 32.89 L, Est GFR (MDRD) Non-Af 49 L, BUN/Creatinine Ratio 26.0 H, Glucose 148 H, Calcium 9.4, Total Bilirubin 0.49, AST 45 H, ALT 32, Alkaline Phosphatase 92, Total Protein 6.4, Albumin 3.5, Globulin 2.9, Albumin/Globulin Ratio 1.2 05/17/25 11:03: POC Glucose 176 H 05/17/25 16:09: POC Glucose 222 H Charges/Coding Visit Charges Inpatient E&M: 60131 Subs Hosp L2
[2025-05-17 12:30] VITALS: O2SAT 90
--- NOTE | 2025-05-17 12:52 | CPS ---
Pt. found saturating at 86% at 12:30, placed on nasal cannula at 2 L, Pt. now saturating at 90%
[2025-05-17 14:20] VITALS: BP 110/69; PULSE 70; RESP 16; TEMP 36.6; O2SAT 96
--- NOTE | 2025-05-17 21:50 | NURSING ---
all four siderails up in pts bed per husbands request. states he is leaving to go home at this time and would feel better and more comfortable if all 4 siderails were up as pt has a tendency to move around a lot in bed. bed exit remains on as well.
[2025-05-17 21:51] VITALS: BP 94/55; PULSE 89; RESP 18; TEMP 37.1; O2SAT 92
[2025-05-18 05:23] VITALS: BP 140/87; PULSE 86; RESP 18; TEMP 36.6; O2SAT 98
[2025-05-18 05:58] VITALS: BMI 27.1
--- NOTE | 2025-05-18 07:26 | PCM.PN.HOSP ---
Reason for Visit Chief Complaint: Adult FTT. Subjective Subjective Patient is an 89-year-old lady with history of dementia with recent diagnosis of UTI brought to the emergency department with progressive generalized weakness. Plan was for patient to have been discharged to a fpc facility she was however denied by insurance company patient was unable to ambulate from her car following her discharge necessitating patient being brought back to the emergency department for readmission Objective Data Objective Data Vital Signs: Vital Signs Temp Pulse Resp BP Pulse Ox O2 Del Method O2 Flow Rate 98 F 86 18 140/87 H 98 Room Air 2 05/18/25 05:23 05/18/25 05:23 05/18/25 05:23 05/18/25 05:23 05/18/25 05:23 05/18/25 05:23 05/17/25 14:20 Oxygen Flow Rate (L/min) 2 Oxygen Delivery Method Room Air Weight: 69.4 kg Body Mass Index (BMI) 27.1 Intake & Output: Intake and Output for Last 24 Hours 05/16/25 05/17/25 05/18/25 23:59 22:59 23:59 Intake Total 350 / 350 Output Total 100 / 100 Balance 250 / 250 Lab / Micro Data 05/17/25 05:44 05/17/25 05:44 Labs: Laboratory Results - last 24 hr 05/17/25 11:03: POC Glucose 176 H 05/17/25 16:09: POC Glucose 222 H 05/17/25 21:59: POC Glucose 162 H 05/18/25 05:31: POC Glucose 134 H Physical Exam Narrative GENERAL: Patient in no apparent distress HEENT: Atraumatic; normocephalic EYES; Anicteric, Normal Conjunctiva NECK; supple, normal thyroid, RESPIRATORY: Diminished to auscultation CARDIOVASCULAR: Regular S1 S2, GI: soft, normoactive bowel sounds, : No Renal angle tenderness; EXTREMITIES: No edema, no clubbing, MUSCULOSKELETAL: no muscle wasting NEURO: Awake; no lateralizing signs. SKIN: No Rash PSYCH; Flat affect Assessment & Plan Assessment/Plan (1) Adult failure to thrive: PLAN: Plan Patient is an 89-year-old lady with history of dementia with recent diagnosis of UTI brought to the emergency department with progressive generalized weakness. Plan was for patient to have been discharged to a fpc facility she was however denied by insurance company patient was unable to ambulate from her car following her discharge necessitating patient being brought back to the emergency department for readmission 1. Profound debility ? Secondary to multiple medical comorbidities including recent UTI. Admitted to regular nursing for requested for PT OT eval and social studies department chair to assist with discharge planning. Patient had apparently been denied during the previous admission 2. Advanced dementia ? Patient is on donepezil as well as memantine. Did continue in addition to supportive care 3. Recent UTI with Klebsiella - was treated appropriately 4. Anemia ? Secondary to chronic disorder monitoring H&H and transfuse if patient becomes symptomatic or hemoglobin falls below 7 5. Diabetes mellitus type 2 ? Patient managed with metformin and glipizide, oral agents held on admission, placed on Accu-Cheks AC and at bedtime with sliding scale coverage 6. GERD ? On PPI 7. Hypertension ? Blood pressure controlled, home medications continued with dose adjustment as needed 8. Exocrine pancreatic insufficiency ? Continue home Creon. 9. Dyslipidemia ?Patient is on statin therapy, continued at home dose 10. . Restless leg syndrome ? Patient is on ropinirole 12. DVT prophylaxis ? Subcu heparin Time spent in the patient's overall evaluation,decision-making process, review of diagnostic data, adjustment of management, discussion with other providers, nursing nursing and ancillary staff involved in patient's care documentation, 38 Minutes Charges/Coding Visit Charges Inpatient E&M: 02202 Subs Hosp L2
[2025-05-18 09:07] VITALS: BP 136/78; PULSE 72; RESP 18; TEMP 36.9; O2SAT 98
[2025-05-18] MEDS: LIPASE/PROTEASE/AMYLASE 1 EACH CAPSULE.DR 3 EACH PO ×3 (09:13→16:44)
[2025-05-18] MEDS: Memantine Hydrochloride 10 MG Tablet PO ×2 (09:14→21:37)
[2025-05-18] MEDS: Glucerna Shake 120 ML LIQUID PO ×3 (09:16→21:41)
--- NOTE | 2025-05-18 09:25 | CASEMGMT ---
Discharge Planning A list of?SNF providers including quality and resource use data and consistent with the patient's preferred geographic region, medical needs, and insurance network was created in [facility] Guide.? This list was provided to the [place]. Funmi Maki, Discharge Planning Asst
[2025-05-18 09:55] VITALS: O2SAT 92
--- NOTE | 2025-05-18 11:32 | CASEMGMT ---
Addendum entered by Julieta Solis 05/18/25 13:01: SW met with pt and pt spouse to discuss therapy recommendations. Pt reports that she gave up and was not able to finish eating because she could not follow directions to chew and pocketed peaches in her mouth. Pt spouse reports that pt needs to go to a memory care unit. Pt spouse tearful; SW offered support. SW provided education on process, explained private pay process and LTC payor options. SW provided a list of SNF providers including quality and resource use data and consistent with the patient?s preferred geographic region, medical needs, and insurance network were provided from the [employer] Guide, as well as peivate pay rates and rack card for quality navigator. Pt spouse to review list with kids and have top 3 choices in the morning. SW remains available to follow. Hospitalist updated. PETRONA Styles Original Note: Social Work- [place] met with pt and pt spouse. Pt sleeping in bed and did not awaken. SW introduced self and role. Pt spouse reports that he spoke with someone in ED about using a wheelchair at home. Pt spouse expressed frustration, feeling like he was unaware that pt could not ambulate at d/c. SW explained that pt did well with therapy at last visit, ambulating 120', but that d/t cognitive state, SNF was recommended. SW provided education on dementia impact on daily function. Pt spouse reiterates that he wants to take pt home in wheelchair, reporting that he has access to wheelchair, can pull 10' from home, and feels that as long as pt can stand/pivot, that he can manage pt care at home. Pt spouse reports that up to recent hospitalization, pt was active, leaving the home 2-3 times per day and only using a cane. SW provided support and additional education on dementia impact. Pt spouse would like to speak with therapy and bedside nurse. SW notified both therapy and bedside nurse who both report that they will meet with pt spouse. [place] remains available to follow. PETRONA Styles
[2025-05-18] MEDS: Heparin Injection (Vial) 5,000 UNIT/ML VIAL 5000 UNIT SC ×2 (11:57→21:38)
--- NOTE | 2025-05-18 12:58 | CASEMGMT ---
OC Met with patients to complete RENAE form. RENAE form and its content were verbally explained and questions were answered to the best of my ability.? Patient's voiced understanding and signed RENAE form.? Copy of signed RENAE form declined and original placed in patient's chart.? Funmi Maki, Discharge Planning Asst
--- NOTE | 2025-05-18 15:39 | CHAPLAIN ---
Type of Pastoral Visit _x__ Initial Visit ___ Follow-up Visit ___ On-call Visit ___ General Patient Visit ___ Spiritual Assessment ___ Family Conference ___ Bereavement ___ Rapid Response ___ Code Blue ___ Other (describe below) Pastoral Care Referral From ___ Patient _x__ Family ___ Nurse ___ Physician ___ Steel Placer ___ [facility] ___ Other (describe below) Sacrament/Intervention _x__ Active listening ___ Anointing ___ Religion ___ Bereavement ___ Communion ___ Юлия exploration ___ _x__ Life review _x__ Prayer ___ Reconciliation ___ Sacrament of Sick _x__ Supportive presence ___ Wedding ___ Other (describe below) Pastoral Comments spouse is with patient who is sitting in a chair with a food tray untouched before her; spouse says that she is not eating and talking; spouse gives more details on years of pt's decline and increasing dementia; this couple has been for 66 years and spouse appears to be very attentive and gentle; spouse says that pt will be going to a [facility]; when asking spouse about his handling of situation and feelings he admits that he is not doing very well with it all; they have children but not available to help the parents; gave time to listen to spouse speak of their lives together and how he is facing 'his loss of '; spouse welcomes prayer and presence; pt remains motionless and stoic the entire visit
[2025-05-18 15:47] VITALS: BP 118/73; PULSE 70; RESP 18; TEMP 36.6; O2SAT 96
[2025-05-18 21:29] VITALS: BP 116/68; PULSE 77; RESP 16; TEMP 36.9; O2SAT 94
[2025-05-18] MEDS: MELATONIN 3 MG TABLET PO (21:45)
[2025-05-19 03:49] VITALS: BMI 27.6
[2025-05-19 05:10] VITALS: BP 119/67; PULSE 84; RESP 16; TEMP 36.4; O2SAT 92
[2025-05-19 07:20] VITALS: O2SAT 90
--- NOTE | 2025-05-19 07:36 | PN.HOSP_ITS ---
Reason for Visit Chief Complaint: Adult FTT. Subjective Subjective Patient seen had an uneventful night. Awaiting insurance precertification prior to transfer to care home Objective Data Objective Data Vital Signs: Vital Signs Temp Pulse Resp BP Pulse Ox O2 Del Method O2 Flow Rate 97.5 F L 84 16 119/67 90 Room Air 2 05/19/25 05:10 05/19/25 05:10 05/19/25 05:10 05/19/25 05:10 05/19/25 07:20 05/19/25 07:20 05/17/25 14:20 Oxygen Flow Rate (L/min) 2 Oxygen Delivery Method Room Air Weight: 70.7 kg Body Mass Index (BMI) 27.6 Intake & Output: Intake and Output for Last 24 Hours 05/17/25 05/18/25 05/19/25 22:59 23:59 23:59 Intake Total 350 / 350 850 / 950 100 / 100 Output Total 100 / 100 Balance 250 / 250 850 / 950 100 / 100 Lab / Micro Data 05/17/25 05:44 05/17/25 05:44 Labs: Laboratory Results - last 24 hr 05/18/25 11:56: POC Glucose 150 H 05/18/25 16:46: POC Glucose 220 H 05/18/25 21:31: POC Glucose 194 H 05/19/25 06:34: POC Glucose 138 H Physical Exam Narrative GENERAL: Patient in no apparent distress HEENT: Atraumatic; normocephalic EYES; Anicteric, Normal Conjunctiva NECK; supple, normal thyroid, RESPIRATORY: Diminished to auscultation CARDIOVASCULAR: Regular S1 S2, GI: soft, normoactive bowel sounds, : No Renal angle tenderness; EXTREMITIES: No edema, no clubbing, MUSCULOSKELETAL: no muscle wasting NEURO: Awake; no lateralizing signs. SKIN: No Rash PSYCH; Flat affect Assessment & Plan Assessment/Plan (1) Adult failure to thrive: PLAN: Plan Patient is an 89-year-old lady with history of dementia with recent diagnosis of UTI brought to the emergency department with progressive generalized weakness. Plan was for patient to have been discharged to a care home facility she was however denied by insurance company patient was unable to ambulate from her car following her discharge necessitating patient being brought back to the emergency department for readmission 1. Profound debility ? Secondary to multiple medical comorbidities including recent UTI. Admitted to regular nursing for requested for PT OT eval and social sciences chair to assist with discharge planning. Patient had apparently been denied during the previous admission 2. Advanced dementia ? Patient is on donepezil as well as memantine. Did continue in addition to supportive care 3. Recent UTI with Klebsiella - was treated appropriately 4. Anemia ? Secondary to chronic disorder monitoring H&H and transfuse if patient becomes symptomatic or hemoglobin falls below 7 5. Diabetes mellitus type 2 ? Patient managed with metformin and glipizide, oral agents held on admission, placed on Accu-Cheks AC and at bedtime with sliding scale coverage 6. GERD ? On PPI 7. Hypertension ? Blood pressure controlled, home medications continued with dose adjustment as needed 8. Exocrine pancreatic insufficiency ? Continue home Creon. 9. Dyslipidemia ?Patient is on statin therapy, continued at home dose 10. . Restless leg syndrome ? Patient is on ropinirole 11 obstructive sleep apnea ? Patient wears CPAP at night consistent use encouraged 12. DVT prophylaxis ? Subcu heparin Time spent in the patient's overall evaluation,decision-making process, review of diagnostic data, adjustment of management, discussion with other providers, nursing nursing and ancillary staff involved in patient's care documentation, 5 Minutes Charges/Coding Visit Charges Inpatient E&M: 19735 Subs Hosp L2
[2025-05-19 10:05] VITALS: BP 102/65; PULSE 79; RESP 16; TEMP 36.8; O2SAT 93
[2025-05-19] MEDS: LIPASE/PROTEASE/AMYLASE 1 EACH CAPSULE.DR 3 EACH PO ×2 (10:16→16:51)
[2025-05-19] MEDS: Heparin Injection (Vial) 5,000 UNIT/ML VIAL 5000 UNIT SC ×2 (10:17→21:27)
[2025-05-19] MEDS: Memantine Hydrochloride 10 MG Tablet PO ×2 (10:17→21:27)
[2025-05-19] MEDS: Glucerna Shake 120 ML LIQUID PO ×2 (10:17→14:57)
--- NOTE | 2025-05-19 12:20 | CASEMGMT ---
Discharge Planning Referral sent via [facility] to [facility]. Funmi Maki DC Planning Asst.
--- NOTE | 2025-05-19 12:33 | CASEMGMT ---
Social Work- [place] met with pt and pt spouse to discuss discharge planning. Pt spouse reports that [facility] is [facility]OC and he would be in agreement with regular room in addition to memory care room. Alternate choice is [facility]. JACLYN notified of referral request. [place] remains available to follow. PETRONA Styles
--- NOTE | 2025-05-19 16:15 | CASEMGMT ---
Social Work- Pt accepted at [facility]. Pt spouse will pay 05/20 then pt will discharge. Pt spouse updated on amount and is agreeable. PETRONA Styles
[2025-05-19 17:00] VITALS: BP 138/71; PULSE 80; RESP 16; TEMP 36.6; O2SAT 93
[2025-05-19 21:25] VITALS: BP 112/70; PULSE 81; RESP 18; TEMP 36.8; O2SAT 97
[2025-05-20 03:18] VITALS: BMI 27.4
[2025-05-20 04:31] VITALS: BP 138/76; PULSE 78; RESP 18; TEMP 36.4; O2SAT 96
[2025-05-20 07:45] VITALS: O2SAT 93
--- NOTE | 2025-05-20 07:49 | PCM.PN.HOSP ---
Reason for Visit Chief Complaint: Adult FTT. Subjective Subjective Patient seen had a relatively uneventful night awaiting insurance precertification prior to transfer to longterm facility Objective Data Objective Data Vital Signs: Vital Signs Temp Pulse Resp BP Pulse Ox O2 Del Method O2 Flow Rate 97.6 F L 78 18 138/76 H 96 Room Air 2 05/20/25 04:31 05/20/25 04:31 05/20/25 04:31 05/20/25 04:31 05/20/25 04:31 05/20/25 04:53 05/17/25 14:20 Oxygen Flow Rate (L/min) 2 Oxygen Delivery Method Room Air Weight: 70.3 kg Body Mass Index (BMI) 27.4 Intake & Output: Intake and Output for Last 24 Hours 05/18/25 05/19/25 05/20/25 23:59 23:59 23:59 Intake Total 850 / 950 950 / 950 250 / 250 Balance 850 / 950 950 / 950 250 / 250 Lab / Micro Data 05/17/25 05:44 05/17/25 05:44 Labs: Laboratory Results - last 24 hr 05/19/25 11:39: POC Glucose 178 H 05/19/25 16:50: POC Glucose 243 H 05/19/25 21:24: POC Glucose 135 H 05/20/25 06:33: POC Glucose 150 H Physical Exam Narrative GENERAL: Patient in no apparent distress HEENT: Atraumatic; normocephalic EYES; Anicteric, Normal Conjunctiva NECK; supple, normal thyroid, RESPIRATORY: Diminished to auscultation CARDIOVASCULAR: Regular S1 S2, GI: soft, normoactive bowel sounds, : No Renal angle tenderness; EXTREMITIES: No edema, no clubbing, MUSCULOSKELETAL: no muscle wasting NEURO: Awake; no lateralizing signs. SKIN: No Rash PSYCH; Flat affect Assessment & Plan Assessment/Plan (1) Adult failure to thrive: PLAN: Plan Patient is an 89-year-old lady with history of dementia with recent diagnosis of UTI brought to the emergency department with progressive generalized weakness. Plan was for patient to have been discharged to a longterm facility she was however denied by insurance company patient was unable to ambulate from her car following her discharge necessitating patient being brought back to the emergency department for readmission 1. Profound debility ? Secondary to multiple medical comorbidities including recent UTI. Admitted to regular nursing for requested for PT OT eval and social and political studies professor to assist with discharge planning. Patient had apparently been denied during the previous admission ? 05/20/2025Patient seen had a relatively uneventful night awaiting insurance precertification prior to transfer to longterm facility 2. Advanced dementia ? Patient is on donepezil as well as memantine. Did continue in addition to supportive care 3. Recent UTI with Klebsiella - was treated appropriately 4. Anemia ? Secondary to chronic disorder monitoring H&H and transfuse if patient becomes symptomatic or hemoglobin falls below 7 5. Diabetes mellitus type 2 ? Patient managed with metformin and glipizide, oral agents held on admission, placed on Accu-Cheks AC and at bedtime with sliding scale coverage 6. GERD ? On PPI 7. Hypertension ? Blood pressure controlled, home medications continued with dose adjustment as needed 8. Exocrine pancreatic insufficiency ? Continue home Creon. 9. Dyslipidemia ?Patient is on statin therapy, continued at home dose 10. . Restless leg syndrome ? Patient is on ropinirole 11 obstructive sleep apnea ? Patient wears CPAP at night consistent use encouraged 12. DVT prophylaxis ? Subcu heparin Charges/Coding Visit Charges Inpatient E&M: 14800 Subs Hosp L1
--- NOTE | 2025-05-20 09:38 | TREXTCAR_ITS ---
Diet Diet Order/Speech Therapy: INPATIENT Hospital Diet / Speech Therapy Order(s) 05/16/25 22:46 Diet: Consistent Carb - Calorie Controlled Food consistency:: Regular Liquid Consistency:: Regular/Thin How many daily calories?: 1800 calorie Routine Orders/Code Status Code Status: DNRCC-A DC O2, CPAP, BIPAP needs Home O2 Discharge instructions: No Therapies Physical Therapy: Eval and Treat Occupational Therapy: Eval and Treat Speech Therapy: Eval and Treat Problem/Diagnosis (1) Adult failure to thrive: Status: Acute Code(s): R62.7 - Adult failure to thrive Plan Patient is an 89-year-old lady with history of dementia with recent diagnosis of UTI brought to the emergency department with progressive generalized weakness. Plan was for patient to have been discharged to a [place] [facility] facility she was however denied by insurance company patient was unable to ambulate from her car following her discharge necessitating patient being brought back to the emergency department for readmission 1. Profound debility ? Secondary to multiple medical comorbidities including recent UTI. Admitted to regular nursing for requested for PT OT eval and rn social work to assist with discharge planning. Patient had apparently been denied during the previous admission 2. Advanced dementia ? Patient is on donepezil as well as memantine. Did continue in addition to supportive care 3. Recent UTI with Klebsiella - was treated appropriately 4. Anemia ? Secondary to chronic disorder monitoring H&H and transfuse if patient becomes symptomatic or hemoglobin falls below 7 5. Diabetes mellitus type 2 ? Patient managed with metformin and glipizide, oral agents held on admission, placed on Accu-Cheks AC and at bedtime with sliding scale coverage 6. GERD ? On PPI 7. Hypertension ? Blood pressure controlled, home medications continued with dose adjustment as needed 8. Exocrine pancreatic insufficiency ? Continue home Creon. 9. Dyslipidemia ?Patient is on statin therapy, continued at home dose 10. . Restless leg syndrome ? Patient is on ropinirole 11 obstructive sleep apnea ? Patient wears CPAP at night consistent use encouraged 12. DVT prophylaxis ? Subcu heparin Time spent in the patient's overall evaluation,decision-making process, review of diagnostic data, adjustment of management, discussion with other providers, nursing nursing and ancillary staff involved in patient's care documentation, 5 Minutes Allergies/Procedures Done in Hospital Allergies pollen extracts Allergy (Intermediate, Verified 05/13/25 12:59) PT UNSURE OF REACTION Type of Care/Length of Stay Estimated LOS: Convalescent Care Less Than 30 days Type of Care Needed: Skilled Rehab Potential: Good Prognosis: Good Additional Orders/Day of Discharge Day of Discharge: 05/20/25 Discharge Plan Admission Admit Date/Time: 05/16/25 21:24 Attending Provider: Santosh Hicks Primary Care Provider: Mello Fowler Consulting Providers: Yaima Tobias; Dereck Oliveros Discharge Orders/Prescriptions Prescriptions: New sennosides-docusate sodium [Stimulant Laxative Plus] 8.6-50 mg Tablet 2 tab PO BID PRN PRN (Reason: Constipation) Qty: 0 0RF Glucerna 1.2 Sherman 0.06-1.2 gram-kcal/mL Liquid 120 ml PO 4X/DAY Qty: 0 0RF Continued ramipril 5 mg capsule 5 mg PO DAILY omeprazole 40 MG capsule 40 mg PO DAILY Patient Comments: STOMACH metformin 500 MG tablet 500 mg PO DAILY cholecalciferol (vitamin D3) 1,000 UNIT capsule 1,000 unit PO DAILY kjbtvotj-wvd-VP-lycopen-lutein 1 EACH tablet 1 ea PO BID memantine 10 mg tablet 10 mg PO BID Patient Comments: TAKE 1 TABLET BY MOUTH TWICE DAILY aspirin 81 mg Tablet,Chewable 81 mg PO BREAKFAST Qty: 30 1RF acetaminophen [Tylenol Extra Strength] 500 mg tablet 500 mg PO BID atorvastatin 40 mg tablet 80 mg PO DAILY donepezil 10 mg tablet 10 mg PO QHS ropinirole 0.5 mg tablet 0.5 mg PO QHS ferrous gluconate [Ferate] 240 mg (27 mg iron) tablet 240 mg PO DAILY B12 5,000-100 mcg lozenge 1 dorota sublingual DAILY nitrofurantoin macrocrystal 50 mg capsule 50 mg PO DAILY Creon 36,000-114,000- 180,000 unit capsule,delayed release(DR/EC) 3 cap PO .aqc Qty: 300 11RF Rx Instructions: Take 3 caps with each meal and 1 with snacks. Max 10 caps per day Discontinued cinnamon bark 500 MG capsule 1,000 mg PO DAILY glipizide 2.5 mg tablet 2.5 mg PO BID Referrals / Follow Up: Mello Fowler DO [Primary Care Provider, Family Practice] Disposition Disposition (needs filled in before D/C Order can be placed): Group Home Facility
--- NOTE | 2025-05-20 09:44 | DS.PCM_ITS ---
Providers Date of Admission: 05/16/25 Date of Discharge: 05/20/25 Primary Care Physician: Dr. Mello Fowler DO Reason For Visit: ADULT FTT Diagnosis Discharge Diagnosis (1) Adult failure to thrive: Status: Acute Code(s): R62.7 - Adult failure to thrive Plan Patient is an 89-year-old lady with history of dementia with recent diagnosis of UTI brought to the emergency department with progressive generalized weakness. Plan was for patient to have been discharged to a long-term facility she was however denied by insurance company patient was unable to ambulate from her car following her discharge necessitating patient being brought back to the emergency department for readmission 1. Profound debility ? Secondary to multiple medical comorbidities including recent UTI. Admitted to regular nursing for requested for PT OT eval and social services aide to assist with discharge planning. Patient had apparently been denied during the previous admission ? 05/20/2025; patient was transferred to long-term facility following acceptance 2. Advanced dementia ? Patient is on donepezil as well as memantine. Did continue in addition to supportive care 3. Recent UTI with Klebsiella - was treated appropriately 4. Anemia ? Secondary to chronic disorder monitoring H&H and transfuse if patient becomes symptomatic or hemoglobin falls below 7 5. Diabetes mellitus type 2 ? Patient managed with metformin and glipizide, oral agents held on admission, placed on Accu-Cheks AC and at bedtime with sliding scale coverage 6. GERD ? On PPI 7. Hypertension ? Blood pressure controlled, home medications continued with dose adjustment as needed 8. Exocrine pancreatic insufficiency ? Continue home Creon. 9. Dyslipidemia ?Patient is on statin therapy, continued at home dose 10. . Restless leg syndrome ? Patient is on ropinirole 11 obstructive sleep apnea ? Patient wears CPAP at night consistent use encouraged 12. DVT prophylaxis ? Subcu heparin Time spent in the patient's overall evaluation,decision-making process, review of diagnostic data, adjustment of management, discussion with other providers, nursing nursing and ancillary staff involved in patient's care documentation, 35 Minutes Medications at Discharge Home Medications omeprazole 40 mg capsule,delayed release 40 mg PO DAILY GERD 01/06/14 cholecalciferol (vitamin D3) 25 mcg (1,000 unit) capsule 1,000 unit PO DAILY supplement 08/28/16 metformin 500 mg tablet 500 mg PO DAILY blood sugar 08/28/16 dwlgqysl-ypy-tqnko acid 0.4 mg-lycopene 300 mcg-lutein 250 mcg tablet 1 ea PO BID supplement 12/03/18 memantine 10 mg tablet 10 mg PO BID mental health 09/11/21 ramipril 5 mg capsule 5 mg PO DAILY blood pressure 01/11/22 aspirin 81 mg chewable tablet 81 mg PO BREAKFAST #30 tabs 09/20/22 acetaminophen 500 mg tablet (Tylenol Extra Strength) 500 mg PO BID 06/07/23 ivtzuv-vnkpxqjc-kdpokgu 36,000-114,000-180,000 unit capsule,delay rel (Creon) 3 cap PO .aqc #300 caps 07/24/24 atorvastatin 40 mg tablet 80 mg PO DAILY 05/13/25 cyanocobalamin (B12)-cobamamide 5,000 mcg-100 mcg sublingual lozenge (B12) 1 dorota sublingual DAILY 05/13/25 donepezil 10 mg tablet 10 mg PO QHS 05/13/25 ferrous gluconate 240 mg (27 mg iron) tablet (Ferate) 240 mg PO DAILY 05/13/25 ropinirole 0.5 mg tablet 0.5 mg PO QHS 05/13/25 nitrofurantoin macrocrystal 50 mg capsule 50 mg PO DAILY 05/16/25 nutrition tx glu intol,lac-free,soy-fiber 0.06 gram-1.2 kcal/mL liquid (Glucerna 1.2 Sherman) 120 ml PO 4X/DAY #0 mL 05/20/25 sennosides 8.6 mg-docusate sodium 50 mg tablet (Stimulant Laxative Plus) 2 tab PO BID PRN PRN Constipation #0 tabs 05/20/25 Physical Exam Narrative GENERAL: Patient in no apparent distress HEENT: Atraumatic; normocephalic EYES; Anicteric, Normal Conjunctiva NECK; supple, normal thyroid, RESPIRATORY: Diminished to auscultation CARDIOVASCULAR: Regular S1 S2, GI: soft, normoactive bowel sounds, : No Renal angle tenderness; EXTREMITIES: No edema, no clubbing, MUSCULOSKELETAL: no muscle wasting NEURO: Awake; no lateralizing signs. SKIN: No Rash PSYCH; Flat affect Weight / BMI Weight Weight: 70.3 kg Body Mass Index (BMI) 27.4 ABG / Lab / Microbiology Data 05/17/25 05:44 05/17/25 05:44 Laboratory: Laboratory Results - last 24 hr 05/19/25 11:39: POC Glucose 178 H 05/19/25 16:50: POC Glucose 243 H 05/19/25 21:24: POC Glucose 135 H 05/20/25 06:33: POC Glucose 150 H D/C Instructions DC O2, CPAP, BIPAP Needs Home O2 Discharge instructions: No Meaningful Use Info Meaningful Use Meaningful Use Diagnoses (Choose all that apply): None applicable Discharge Plan Admission Admit Date/Time: 05/16/25 21:24 Attending Provider: Santosh Hicks Primary Care Provider: Mello Fowler Consulting Providers: Yaima Tobias; Dereck Oliveros Discharge Orders/Prescriptions Prescriptions: New sennosides-docusate sodium [Stimulant Laxative Plus] 8.6-50 mg Tablet 2 tab PO BID PRN PRN (Reason: Constipation) Qty: 0 0RF Glucerna 1.2 Sherman 0.06-1.2 gram-kcal/mL Liquid 120 ml PO 4X/DAY Qty: 0 0RF Continued ramipril 5 mg capsule 5 mg PO DAILY omeprazole 40 MG capsule 40 mg PO DAILY Patient Comments: STOMACH metformin 500 MG tablet 500 mg PO DAILY cholecalciferol (vitamin D3) 1,000 UNIT capsule 1,000 unit PO DAILY yxcclzjf-uia-HH-lycopen-lutein 1 EACH tablet 1 ea PO BID memantine 10 mg tablet 10 mg PO BID Patient Comments: TAKE 1 TABLET BY MOUTH TWICE DAILY aspirin 81 mg Tablet,Chewable 81 mg PO BREAKFAST Qty: 30 1RF acetaminophen [Tylenol Extra Strength] 500 mg tablet 500 mg PO BID atorvastatin 40 mg tablet 80 mg PO DAILY donepezil 10 mg tablet 10 mg PO QHS ropinirole 0.5 mg tablet 0.5 mg PO QHS ferrous gluconate [Ferate] 240 mg (27 mg iron) tablet 240 mg PO DAILY B12 5,000-100 mcg lozenge 1 dorota sublingual DAILY nitrofurantoin macrocrystal 50 mg capsule 50 mg PO DAILY Creon 36,000-114,000- 180,000 unit capsule,delayed release(DR/EC) 3 cap PO .aqc Qty: 300 11RF Rx Instructions: Take 3 caps with each meal and 1 with snacks. Max 10 caps per day Discontinued cinnamon bark 500 MG capsule 1,000 mg PO DAILY glipizide 2.5 mg tablet 2.5 mg PO BID Referrals / Follow Up: Mello Fowler DO [Primary Care Provider, Family Practice] Disposition Disposition (needs filled in before D/C Order can be placed): [facility] Charges/Coding Visit Charges Inpatient E&M: 13065 Disch Hosp >30min
[2025-05-20 10:30] VITALS: BP 116/65; PULSE 73; RESP 18; TEMP 36.6; O2SAT 96
[2025-05-20] MEDS: LIPASE/PROTEASE/AMYLASE 1 EACH CAPSULE.DR 3 EACH PO ×2 (10:35→12:20)
[2025-05-20] MEDS: Glucerna Shake 120 ML LIQUID PO ×2 (10:37→12:20)
[2025-05-20] MEDS: Heparin Injection (Vial) 5,000 UNIT/ML VIAL 5000 UNIT SC (10:37)
[2025-05-20] MEDS: Memantine Hydrochloride 10 MG Tablet PO (10:39)
--- NOTE | 2025-05-20 11:02 | CASEMGMT ---
Addendum entered by Julieta Solis 05/20/25 11:17: Plan: Intermediate level of care under private pay [employer] Original Note: Social Work Physician updated and pt is ready for discharge today.? PASRR form completed in [employer] [place] met with pt and pt spouse; they are agreeable to discharge plan as stated above.?DCA and bedside nurse notified of discharge. Disposition: [facility], intermediate level of care under [employer]
--- NOTE | 2025-05-20 11:07 | PHA.DC.MR.R ---
[facility] has performed discharge medication reconciliation for this patient. The patient's discharge medication list was reviewed for discrepancies and discrepancies were resolved. Medications at Discharge Home Medications omeprazole 40 mg capsule,delayed release 40 mg PO DAILY GERD 01/06/14 cholecalciferol (vitamin D3) 25 mcg (1,000 unit) capsule 1,000 unit PO DAILY supplement 08/28/16 metformin 500 mg tablet 500 mg PO DAILY blood sugar 08/28/16 sjxlmtnh-jyx-iynoi acid 0.4 mg-lycopene 300 mcg-lutein 250 mcg tablet 1 ea PO BID supplement 12/03/18 memantine 10 mg tablet 10 mg PO BID mental health 09/11/21 ramipril 5 mg capsule 5 mg PO DAILY blood pressure 01/11/22 aspirin 81 mg chewable tablet 81 mg PO BREAKFAST #30 tabs 09/20/22 acetaminophen 500 mg tablet (Tylenol Extra Strength) 500 mg PO BID 06/07/23 dgcfkv-omhdcsvk-hvnifhz 36,000-114,000-180,000 unit capsule,delay rel (Creon) 3 cap PO .aqc #300 caps 07/24/24 atorvastatin 40 mg tablet 80 mg PO DAILY 05/13/25 cyanocobalamin (B12)-cobamamide 5,000 mcg-100 mcg sublingual lozenge (B12) 1 droota sublingual DAILY 05/13/25 donepezil 10 mg tablet 10 mg PO QHS 05/13/25 ferrous gluconate 240 mg (27 mg iron) tablet (Ferate) 240 mg PO DAILY 05/13/25 ropinirole 0.5 mg tablet 0.5 mg PO QHS 05/13/25 nitrofurantoin macrocrystal 50 mg capsule 50 mg PO DAILY 05/16/25 nutrition tx glu intol,lac-free,soy-fiber 0.06 gram-1.2 kcal/mL liquid (Glucerna 1.2 Sherman) 120 ml PO 4X/DAY #0 mL 05/20/25 sennosides 8.6 mg-docusate sodium 50 mg tablet (Stimulant Laxative Plus) 2 tab PO BID PRN PRN Constipation #0 tabs 05/20/25
--- NOTE | 2025-05-20 12:33 | CASEMGMT ---
Discharge Planning Discharge orders, signed med list, and transport time sent to [facility] via [facility]. Physicians will transport pt by cot at 12:30p. Nursing, SW, and pts (Mat) updated. Funmi Maki DC Planning Asst
== END 2025-05-20 12:45 ==
LOC: ED 20:11 → MS3 21:48
PROVIDERS: Internal Medicine; Admitting Provider Family Medicine; Emergency Provider Emergency Medicine; PCP Family Medicine; Visit Provider Internal Medicine
DX: R53.1 Weakness (principal); G30.9 Alzheimer's disease, unspecified; F02.80 Dementia in other diseases classified elsewhere, unspecified severity, without behavioral disturbance, psychotic disturbance, mood disturbance, and anxiety; E11.22 Type 2 diabetes mellitus with diabetic chronic kidney disease; E11.40 Type 2 diabetes mellitus with diabetic neuropathy, unspecified; N18.30 Chronic kidney disease, stage 3 unspecified; R62.7 Adult failure to thrive; Z79.84 Long term (current) use of oral hypoglycemic drugs; B96.1 Klebsiella pneumoniae [K. pneumoniae] as the cause of diseases classified elsewhere; R53.81 Other malaise; R26.2 Difficulty in walking, not elsewhere classified; Z79.82 Long term (current) use of aspirin; I12.9 Hypertensive chronic kidney disease with stage 1 through stage 4 chronic kidney disease, or unspecified chronic kidney disease; E78.5 Hyperlipidemia, unspecified; Z79.899 Other long term (current) drug therapy; N30.90 Cystitis, unspecified without hematuria; N17.9 Acute kidney failure, unspecified; E86.0 Dehydration; D63.1 Anemia in chronic kidney disease; D50.9 Iron deficiency anemia, unspecified; I44.0 Atrioventricular block, first degree; K86.89 Other specified diseases of pancreas; Z66 Do not resuscitate; K21.9 Gastro-esophageal reflux disease without esophagitis; G47.33 Obstructive sleep apnea (adult) (pediatric); G25.81 Restless legs syndrome
CPT/HCPCS: 36415; 71045; 80048; 80053; 81001; 82962; 83036; 83605; 84484; 85025; 85027; 87040; 93005; 94668; 96360; 96361; 96372; 97116; 97162; 97163; 97166; 97167; 97530; 97535; 97802; 99221; 99285; P9612; A4216; G0378

== ENCOUNTER → 2025-05-21 05:00 | Outpatient (REF) | payer MEDICARE, OTHER, SELFPAY ==
--- OUTSIDE RECORDS SUMMARY | 2025-05-21 03:45 | XMS RPT_ITS | CCD ---
Author Organization [facility] Care Team Providers Care Continuous Process Machine Operator Name Role Phone Dr. Clinton Fowler Primary Care Provider [phone] Dr. Eduin Blair Attending Provider Dr. Maura Lauren Emergency Provider Dr. Foreign Paredes Admit Provider Dr. Foreign Paredes Other Provider Dr. Isa Verma Attending Provider [phone] Isa Verma Other Provider Dr. Clinton Fowler Referring Provider [phone] Hung Adames Attending Provider [phone] Dr. Moncho Thomas Emergency Provider [phone] Estrella Buckner Admit Provider Dr. Estrella Buckner Other Provider Dr. Foreign Paredes Attending Provider [phone] Maria D Chawla Other Provider Dr. Gera Corbett Attending Provider Dr. Clinton Fowler Primary Care Provider [phone] Dr. Clinton Fowler Referring Provider Dr. Hung Adames Attending Provider [phone] Moncho Thomas Emergency Provider Dr. Estrella [...] Provider Dr. Clinton Fowler Referring Provider Rafael TABULATING CLERK, TABULATING CLERK-C Inessa Thomas Attending Provider [phone] Dr. Hung Adames Attending Provider LIBERTAD WHITTAKER Attending Unavailable LIBERTAD WHITTAKER Attending Unavailable Clinton Fowler DO Primary Care Provider Dr. Clinton Fowler DO Primary Care Provider Dr. Clinton Fowler DO Referring Provider Dr. Hung Adames DO Attending Provider Dr. Clinton Fowler DO Attending Provider [phone] Antonio BRAUN, Dr. Henson Referring Provider [phone] Antonio BRAUN, Dr. Henson Emergency Provider [phone] Antonio BRAUN, Dr. Henson Attending Provider [phone] Dorie BRAUN, Dr. Saavedra Emergency Provider LIBERTAD WHITTAKER S Attending Unavailable LIBERTAD WHITTAKER S Referring Unavailable DANYCLINTON SHERWOOD A Primary Care Unavailable Dany, Clinton Primary Care Unavailable White, Yaima L Consulting Unavailable White, Yaima L Admitting Unavailable Domo, Dereck Attending Unavailable Domo, Dereck Consulting Unavailable KitSantosh tripp Attending Unavailable KitSantosh tripp Consulting Unavailable Dany, Clinton Referring Unavailable Hung Adames Attending Unavailable Dany, Clinton Primary Care Unavailable Louis Stoddard Consulting Unavailable Domo, Dereck Attending Unavailable Louis Stoddard Admitting Unavailable Dany, Clinton Primary Care Unavailable KitSantosh tripp Consulting Unavailable Domo, Dereck Consulting Unavailable Dany, Clinton Referring Unavailable Hung Adames Attending Unavailable Dany, Clinton Primary Care Unavailable Louis Stoddard Attending Unavailable Fabiola, Santosh Attending Unavailable Alex Saha Attending Unavailable Dany, Clinton Primary Care Unavailable SchwSixto barnes Referring Unavailable Sixto Alvarez Attending Unavailable Dany, Clinton Primary Care Unavailable Dany, Clinton Primary Care Unavailable Davian TABULATING CLERK, Libertad S Attending Unavailab Louis Salas Admitting Unavailable Dany, Clinton Primary Care Unavailable Richi Louis Consulting Unavailable Domo, Dereck Attending Unavailable Kitqasim, Santosh Consulting Unavailable DanyClinton Attending Unavailable Dany, Clinton Primary Care Unavailable Dany, Clinton Attending Unavailable Dany, Clinton Primary Care Unavailable Dany, Clinton Primary Care Unavailable Nikita Alvarado Attending Unavailable Dany, Clinton Primary Care Unavailable Quentin Oshea Attending Unavailable Allergies Allergy Classification Reported Allergen(s) Allergy Type Date of Onset Reaction(s) Facility (10 sources) Pollen Allergy to substance 3 PT UNSURE OF REACTION [facility] (1 source) Pollen Drug allergy (disorder) 5 [facility] Repository Medications Current Medications Medication Drug [...] 1 capsule (1,000 Units) by mouth. Active ltfo-rnkau-DRF-ilo-opfylsp-v ea 100 mg-100 mcg- 100 mg-100 mg capsule (1 source) emar-hhfej-BMZ-g eo-gmzfdqp-cuw 100 mg-100 mcg- 100 mg-100 mg capsule [...] Start: 08-28-2016 take [address] [facility] at bedtime Donepezil 5 MG tablet [...] hydrochloride 10 mg oral tablet (20 sources) W-zbrizp-O-aspart ate Receptor Antagonist Start: 09-11-2021 take 1 tablet by mouth twice daily Memantine 10 mg tablet Active 10 mg PO TWICE A DAY September 11, 2021 1:00am [facility] metFORMIN hydrochloride 500 mg oral tablet [...] MG PO DAILY September 11, 2021 12:00am Jkobhsik-Euu-Iu-Lycopen-Lute in (15 sources) Start: 12-03-2018 Dbibkfeq-Zzx-Sr-Lycopen-Lute in Active 1 EACH PO TWICE A DAY December 02, 2018 11:00pm Start: 12-03-2018 Fkwvhbwe-Ivd-J j-Whtkage-Xelcpm Active 1 EACH PO TWICE A DAY December 03, 2018 12:00am Xaecrtey-Rkf-Yx-Lycopen-Lute in 1 EACH tablet (4 sources) Start: 12-03-2018 Ryxajtbm-Nvy-Yc-Lycopen-Lute in 1 EACH tablet Active 1 NMA PO TWICE A DAY December 03, 2018 12:00am supplement Start: 12-03-2018 Jjgicoof-Rdu-H t-Rqamqzt-Gngufl 1 EACH tablet Active 1 NMA PO [...] Active Start: 01-11-2022 take 2 tablets by [facility] at bedtime Ropinirole 0.25 mg tablet Active [...] On Hold: only take if needed amylase 203240 unt / lipase 77298 unt / protease [id number] unt delayed release oral capsule (20 sources) Start: 08-28-2022 End: 07-24-2024 Ogyzre-Tmamntbm-Cc ylase (Creon) 36,000-114,000- 180,000 unit capsule,delayed release(DR/EC) [...] 12:00am Start: 06-08-2019 take 1 tablet by [facility] twice daily Vitamin C Active 1 TABLET [...] (2 mg) by mouth once daily. Active Pbrxvp-Fqugkuou-Xjmrbok (Bib pep) 40,000-126,000- 168,000 unit capsule,delayed release(DR/EC) (17 sources) Start: 08-23-2022 End: 08-28-2022 Wwwemc-Thoswhkt-Qqqbqel (Zenpep) 40,000-126,000- 168,000 unit capsule,delayed release(DR/EC) Discontinued 0 PO .COMPLEX 320 August 23, 2022 1:00am August 28, 2022 5:28pm take 1-2 with snacks and 2-3 with meals Start: 08-23-2022 End: 08-28-2022 Kkwzoi-Oropsjrr-Dmvmsya (Bib pep) 40,000-126,000- 168,000 unit capsule,delayed release(DR/EC) Discontinued 0 PO .COMPLEX 320 August 23, 2022 1:00am August 28, 2022 5:28pm take 1-2 with snacks and 2-3 with meals Start: 08-23-2022 End: 08-28-2022 Qvdulr-Wtuiwpku-Qaclmcz (Bib pep) 40,000-126,000- 168,000 unit capsule,delayed release(DR/EC) [...] complication (20 sources) Hyperglycemia; Translations: [Hyperglycemia, unspecified] 03-04-2023 Episodic Disorders of lipid metabolism (19 sources) [...] [Pain in left hip] 07-15-2019 Episodic Other nutritional; endocrine; and metabolic disorders (1 source) Adult failure to thrive; Translations: [Adult failure to thrive] Onset: Episodic Other upper respiratory infections (7 sources) [...] Test Name Value Interpretation Reference Range Facility Bedside Glucoseon 05-19-2025 FINGERSTICK GLU 135 mg/dL High 74-106 [facility] Comment on above: Result Comment: IRENE PANDEY OF PATIENT CARE PER NURSING PROTOCOL Performed By: #### L 499.0043 #### [facility] [place] [address], [address] FINGERSTICK GLU 243 mg/dL High 74-106 [facility] Comment on above: Result Comment: IRENE GEMENT OF PATIENT CARE PER NURSING PROTOCOL Performed By: #### L 501.4021, M200.1000 #### [facility] [address] [place], [address] FINGERSTICK GLU 178 mg/dL High 74-106 [facility] Comment on above: Result Comment: IRENE GEMENT OF PATIENT CARE PER NURSING PROTOCOL Performed By: #### L 501.080 #### [facility] [address] [place], [address] FINGERSTICK GLU 138 mg/dL High 74-106 [facility] Comment on above: Result Comment: IRENE GEMENT OF PATIENT CARE PER NURSING PROTOCOL Performed By: #### L 499.0043 #### [facility] [address] [place], [address] Bedside Glucoseon 05-18-2025 FINGERSTICK GLU 194 mg/dL High 74-106 [facility] Comment on above: Result Comment: IRENE GEMENT OF PATIENT CARE PER NURSING PROTOCOL Performed By: #### L 499.0043 #### [facility] [address] [place], [address] FINGERSTICK GLU 220 mg/dL High -106 [facility] Comment on above: Result Comment: IRENE GEMENT OF PATIENT CARE PER NURSING PROTOCOL Performed By: #### L 499.0043 #### [facility] [address] [place], [address] FINGERSTICK GLU 150 mg/dL High 74-106 [facility] Comment on above: Result Comment: IRENE GEMENT OF PATIENT CARE PER NURSING PROTOCOL Performed By: #### L 500.2500, L100.0100 #### [facility] [address] [place], [address] FINGERSTICK GLU 134 mg/dL High 74-106 [facility] Comment on above: Result Comment: IRENE GEMENT OF PATIENT CARE PER NURSING PROTOCOL Performed By: #### L 499.0043 #### [facility] [address] [place], [address] Bedside Glucoseon 05-17-2025 FINGERSTICK GLU 162 mg/dL High 74-106 [facility] Comment on above: Result Comment: IRENE GEMENT OF PATIENT CARE PER NURSING PROTOCOL Performed By: #### L 499.0043 #### [facility] [address] [place], [address] FINGERSTICK GLU 222 mg/dL High 74-106 [facility] Comment on above: Result Comment: IRENE GEMENT OF PATIENT CARE PER NURSING PROTOCOL Performed By: #### L 501.080 #### [facility] [address] [place], [address] FINGERSTICK GLU 176 mg/dL High -106 [facility] Comment on above: Result Comment: IRENE GEMENT OF PATIENT CARE PER NURSING PROTOCOL Performed By: #### L 501.080 #### [facility] [address] [place], [address] FINGERSTICK GLU 152 mg/dL High -106 [facility] Comment on above: Result Comment: IRENE GEMENT OF PATIENT CARE PER NURSING PROTOCOL Performed By: #### L 501.080 #### [facility] [address] [place], [address] CBC W/Diff, Automatedon 11 Absolute Lymph 2.32 X10 3/uL Normal 0.83-4.51 [facility] Comment on above: Performed By: #### L 501.4021, M200.1000 #### [facility] [address] [place], [address] Absolute Neut 4.6 X10 3/uL Normal 2.0-7.7 [facility] Comment on above: Performed By: #### L 501.4021, M200.1000 #### [facility] [address] [place], [address] Basophils/100 WBC (Bld) 0.9 % Normal 0-1 [facility] Comment on above: Performed By: #### L 501.4021, M200.1000 #### [facility] [address] [place], [address] Eosinophils/100 WBC (Bld) 3.0 % Normal 0-5 [facility] Comment on above: Performed By: #### L 501.4021, M200.1000 #### [facility] [address] [place], [address] Erythrocyte distribution width (RBC) [Ratio] 12.3 % Normal 11.6-14.6 [facility] Comment on above: Performed By: #### L 501.4021, M200.1000 #### [facility] [address] [place], [address] Hematocrit (Bld) [Volume fraction] 33.5 % Low 37-47 [facility] Comment on above: Performed By: #### L 501.4021, M200.1000 #### [facility] [address] [place], [address] Hemoglobin (Bld) [Mass/Vol] 11.3 g/dL Low 12.0-15. 0 [facility] Comment on above: Performed By: #### L 501.4021, M200.1000 #### [facility] [address] [place], [address] IG% 0.400 Normal 0.0-0.9 [facility] Comment on above: Result Comment: IG% - Immature Granulocytes (promyelocytes, myelocytes and metamyelocytes) > 1% indicates that a LEFT SHIFT is Present. Performed By: #### L 501.4021, M200.1000 #### [facility] [address] [place], [address] Lymphocytes/100 WBC (Bld) 28.9 % Normal 19-41 [facility] Comment on above: Performed By: #### L 501.4021, M200.1000 #### [facility] [address] [place], [address] MCH (RBC) [Entitic mass] 31.3 pg Normal 27.0-32.0 [facility] Comment on above: Performed By: #### L 501.4021, M200.1000 #### [facility] [address] [place], [address] MCHC (RBC) [Mass/Vol] 33.7 g/dL Normal 32-36 [facility] Comment on above: Performed By: #### L 501.4021, M200.1000 #### [facility] [address] [place], [address] MCV (RBC) [Entitic vol] 92.8 fL Normal 81-99 [facility] Comment on above: Performed By: #### L 501.4021, M200.1000 #### [facility] [address] [place], [address] Monocytes/100 WBC (Bld) 9.8 % Normal 0-10 [facility] Comment on above: Performed By: #### L 501.4021, M200.1000 #### [facility] [address] [place], [address] Neutrophils/100 WBC (Bld) 57.0 % Normal 47-70 [facility] Comment on above: Performed By: #### L 501.4021, M200.1000 #### [facility] [address] [place], [address] Nucleated RBC (Bld) [#/Vol] 0 10*3/uL Normal 0-5 [facility] Comment on above: Performed By: #### L 501.4021, M200.1000 #### [facility] [address] [place], [address] Platelet mean volume (Bld) [Entitic vol] 9.6 fL Normal 6.2-12.0 [facility] Comment on above: Performed By: #### L 501.4021, M200.1000 #### [facility] [address] [place], [address] Platelets (Bld) [#/Vol] 170 10*3/uL Normal 150-450 [facility] Comment on above: Performed By: #### L 501.4021, M200.1000 #### [facility] [address] [place], [address] RBC (Bld) [#/Vol] 3.61 10*6/uL Low 4.2-5.4 [facility] Comment on above: Performed By: #### L 501.4021, M200.1000 #### [facility] [address] [place], [address] RDW SD 42.5 fl Normal 35.1-43.9 [facility] Comment on above: Performed By: #### L 501.4021, M200.1000 #### [facility] [address] [place], [address] WBC (Bld) [#/Vol] 8.0 10*3/uL Normal 4.4-11.0 [facility] Comment on above: Performed By: #### L 501.4021, M200.1000 #### [facility] [address] [place], [address] Comprehensive Metabolic Prof [facility] 05-17-2025 Albumin [Mass/Vol] 3.5 g/dL Normal 3.4-4.8 [facility] Comment on above: Performed By: #### L 501.4021, M200.1000 #### [facility] [address] [place], [address] Albumin/Globulin [Mass ratio] 1.2 {ratio} Normal 0.9-2.4 [facility] Comment on above: Performed By: #### L 501.4021, M200.1000 #### [facility] [address] [place], [address] ALK PHOS 92 U/L Normal 35-104 [facility] Comment on above: Performed By: #### L 501.4021, M200.1000 #### [facility] [address] [place], [address] ALT [Catalytic activity/Vol] 32 U/L Normal <=34 [facility] Comment on above: Performed By: #### L 501.4021, M200.1000 #### [facility] [address] [place], [address] AST [Catalytic activity/Vol] 45 U/L High <=31 [facility] Comment on above: Performed By: #### L 501.4021, M200.1000 #### [facility] [address] [place], [address] Bilirubin [Mass/Vol] 0.49 mg/dL Normal 0.00-1.30 [facility] Comment on above: Performed By: #### L 501.4021, M200.1000 #### [facility] [address] [place], [address] BUN/CRE 26.0 RATIO High 10-20 [facility] Comment on above: Performed By: #### L 501.4021, M200.1000 #### [facility] [address] [place], [address] Calcium [Mass/Vol] 9.4 mg/dL Normal 7.6-11.0 [facility] Comment on above: Performed By: #### L 501.4021, M200.1000 #### [facility] [address] [place], [address] Chloride [Moles/Vol] 102 mmol/L Normal 98-108 [facility] Comment on above: Performed By: #### L 501.4021, M200.1000 #### [facility] [address] [place], [address] CO2 [Moles/Vol] 19.8 mmol/L Low 21.0-32.0 [facility] Comment on above: Performed By: #### L 501.4021, M200.1000 #### [facility] [address] [place], [address] Creatinine [Mass/Vol] 1.08 mg/dL Normal 0.70-1.20 [facility] Comment on above: Performed By: #### L 501.4021, M200.1000 #### [facility] [address] [place], [address] ECRCL 32.89 ml/min Low 50-250 [facility] Comment on above: Performed By: #### L 501.4021, M200.1000 #### [facility] [address] [place], [address] GAP 11 Normal 5-15 [facility] Comment on above: Performed By: #### L 501.4021, M200.1000 #### [facility] [address] [place], [address] GFR/1.73 sq M.predicted among non-blacks MDRD (S/P/Bld) [Vol rate/Area] 49 mL/min/{1.73_m2} Low >60 [facility] Comment on above: Result Comment: mL/m in/1.73m2 CKD-EPI Creatinine Equation (2020) Performed By: #### L 501.4021, M200.1000 #### [facility] [address] [place], [address] Globulin (S) [Mass/Vol] 2.9 g/dL Normal 2.2-4.2 [facility] Comment on above: Performed By: #### L 501.4021, M200.1000 #### [facility] [address] [place], [address] Glucose [Mass/Vol] 148 mg/dL High 70-99 [facility] Comment on above: Performed By: #### L 501.4021, M200.1000 #### [facility] [address] [place], [address] Potassium [Moles/Vol] 4.5 mmol/L Normal 3.3-5.1 [facility] Comment on above: Result Comment: Hemo lysis present, Results??could be affected. ?? Performed By: #### L 501.4021, M200.1000 #### [facility] [address] [place], [address] Sodium [Moles/Vol] 133 mmol/L Normal 133-145 [facility] Comment on above: Performed By: #### L 501.4021, M200.1000 #### [facility] [address] [place], [address] T PROT 6.4 g/dL Normal 5.9-8.4 [facility] Comment on above: Performed By: #### L 501.4021, M200.1000 #### [facility] [address] [place], [address] Urea nitrogen [Mass/Vol] 28 mg/dL High 4-19 [facility] Comment on above: Performed By: #### L 501.4021, M200.1000 #### [facility] [address] [place], [address] Basic Metabolic Profile (BMP )on 05-16-2025 BUN/CRE 19.4 RATIO Normal 10-20 [facility] Comment on above: Performed By: #### L 499.0043 #### [facility] [address] [place], [address] Calcium [Mass/Vol] 9.7 mg/dL Normal 7.6-11.0 [facility] Comment on above: Performed By: #### L 499.0043 #### [facility] [address] [place], [address] Chloride [Moles/Vol] 100 mmol/L Normal 98-108 [facility] Comment on above: Performed By: #### L 499.0043 #### [facility] [address] [place], [address] CO2 [Moles/Vol] 22.4 mmol/L Normal 21.0-32.0 [facility] Comment on above: Performed By: #### L 499.0043 #### [facility] [address] [place], [address] Creatinine [Mass/Vol] 1.11 mg/dL Normal 0.70-1.20 [facility] Comment on above: Performed By: #### L 499.0043 #### [facility] [address] [place], [address] ECRCL 33.13 ml/min Low 50-250 [facility] Comment on above: Performed By: #### L 499.0043 #### [facility] [address] [place], [address] GAP 11 Normal 5-15 [facility] Comment on above: Performed By: #### L 499.0043 #### [facility] [address] [place], [address] GFR/1.73 sq M.predicted among non-blacks MDRD (S/P/Bld) [Vol rate/Area] 48 mL/min/{1.73_m2} Low >60 [facility] Comment on above: Result Comment: mL/m in/1.73m2 CKD-EPI Creatinine Equation (2020) Performed By: #### L 499.0043 #### [facility] [address] [place], [address] Glucose [Mass/Vol] 136 mg/dL High 70-99 [facility] Comment on above: Performed By: #### L 499.0043 #### [facility] [address] [place], [address] Potassium [Moles/Vol] 4.3 mmol/L Normal 3.3-5.1 [facility] Comment on above: Performed By: #### L 499.0043 #### [facility] [address] [place], [address] Sodium [Moles/Vol] 133 mmol/L Normal 133-145 [facility] Comment on above: Performed By: #### L 499.0043 #### [facility] [address] [place], [address] Urea nitrogen [Mass/Vol] 22 mg/dL High 4-19 [facility] Comment on above: Performed By: #### L 499.0043 #### [facility] [address] [place], [address] Bedside Glucoseon 05-16-2025 FINGERSTICK GLU 181 mg/dL High 74-106 [facility] Comment on above: Result Comment: IRENE GEMENT OF PATIENT CARE PER NURSING PROTOCOL Performed By: #### L 501.080 #### [facility] [address] [place], [address] FINGERSTICK GLU 180 mg/dL High 74-106 [facility] Comment on above: Result Comment: IRENE GEMENT OF PATIENT CARE PER NURSING PROTOCOL Performed By: #### L 500.2500, L100.0100 #### [facility] [address] [place], [address] FINGERSTICK GLU 143 mg/dL High 74-106 [facility] Comment on above: Result Comment: IRENE PANDEY OF PATIENT CARE PER NURSING PROTOCOL Performed By: #### L 501.080 #### [facility] [address] [place], [address] CBC W/Diff, Automatedon 11-0 -2024 Absolute Lymph 2.39 X10 3/uL Normal 0.83-4.51 [facility] Comment on above: Performed By: #### L 499.0043 #### [facility] [address] [place], [address] Absolute Neut 3.4 X10 3/uL Normal 2.0-7.7 [facility] Comment on above: Performed By: #### L 499.0043 #### [facility] [address] [place], [address] Basophils/100 WBC (Bld) 1.3 % High 0-1 [facility] Comment on above: Performed By: #### L 499.0043 #### [facility] [address] [place], [address] Eosinophils/100 WBC (Bld) 2.9 % Normal 0-5 [facility] Comment on above: Performed By: #### L 499.0043 #### [facility] [address] [place], [address] Erythrocyte distribution width (RBC) [Ratio] 12.4 % Normal 11.6-14.6 [facility] Comment on above: Performed By: #### L 499.0043 #### [facility] [address] [place], [address] Hematocrit (Bld) [Volume fraction] 34.1 % Low 37-47 [facility] Comment on above: Performed By: #### L 499.0043 #### [facility] [address] [place], [address] Hemoglobin (Bld) [Mass/Vol] 11.6 g/dL Low 12.0-15. 0 [facility] Comment on above: Performed By: #### L 499.0043 #### [facility] [address] [place], [address] IG% 0.900 Normal 0.0-0.9 [facility] Comment on above: Result Comment: IG% - Immature Granulocytes (promyelocytes, myelocytes and metamyelocytes) > 1% indicates that a LEFT SHIFT is Present. Performed By: #### L 499.0043 #### [facility] [address] [place], [address] Lymphocytes/100 WBC (Bld) 34.9 % Normal 19-41 [facility] Comment on above: Performed By: #### L 499.0043 #### [facility] [address] [place], [address] MCH (RBC) [Entitic mass] 31.3 pg Normal 27.0-32.0 [facility] Comment on above: Performed By: #### L 499.0043 #### [facility] [address] [place], [address] MCHC (RBC) [Mass/Vol] 34.0 g/dL Normal 32-36 [facility] Comment on above: Performed By: #### L 499.0043 #### [facility] [address] [place], [address] MCV (RBC) [Entitic vol] 91.9 fL Normal 81-99 [facility] Comment on above: Performed By: #### L 499.0043 #### [facility] [address] [place], [address] Monocytes/100 WBC (Bld) 9.9 % Normal 0-10 [facility] Comment on above: Performed By: #### L 499.0043 #### [facility] [address] [place], [address] Neutrophils/100 WBC (Bld) 50.1 % Normal 47-70 [facility] Comment on above: Performed By: #### L 499.0043 #### [facility] [address] [place], [address] Nucleated RBC (Bld) [#/Vol] 0 10*3/uL Normal 0-5 [facility] Comment on above: Performed By: #### L 499.0043 #### [facility] [address] [place], [address] Platelet mean volume (Bld) [Entitic vol] 9.7 fL Normal 6.2-12.0 [facility] Comment on above: Performed By: #### L 499.0043 #### [facility] [address] [place], [address] Platelets (Bld) [#/Vol] 172 10*3/uL Normal 150-450 [facility] Comment on above: Performed By: #### L 499.0043 #### [facility] [address] [place], [address] RBC (Bld) [#/Vol] 3.71 10*6/uL Low 4.2-5.4 [facility] Comment on above: Performed By: #### L 499.0043 #### [facility] [address] [place], [address] RDW SD 41.5 fl Normal 35.1-43.9 [facility] Comment on above: Performed By: #### L 499.0043 #### [facility] [address] [place], [address] WBC (Bld) [#/Vol] 6.8 10*3/uL Normal 4.4-11.0 [facility] Comment on above: Performed By: #### L 499.0043 #### [facility] [address] [place], [address] Discharge Instructionon 0 Discharge Instruction [facility] Medical Records Department [address] [place] [address] Instructions for Home/Discharge Instructions 05/16/25 1046 MR#: [id number] Acct: [id number] Name: LIZA HANCOCK Rep #: [id number] : 1935 89 From: Dereck Oliveros MD [...] 500 MG capsule 1,000 mg PO DAILY zmqimeyv-ulj-GD-lycop en-lutein 1 EACH tablet 1 ea PO [...] Practice] Lenny Gong DO [Med Staff - Air Launch Weapons Technician, Psychiatry] - Within 1 Month Referral Note: dementia, psychosis? Disposition Disposition (needs filled in before D/C Order can be placed): Home, Self Care 05/16/25 1405 Dereck Oliveros MD CC: Dr. Louis Stoddard DO; Dr. Santosh Hicks MD; Dr. Clinton Fowler DO Signed Normal [facility] Emergency Department Summary on 05-16-2025 Emergency Department Summary [facility] Medical Records Department [address] [place] [address] Emergency Department Summary 05/16/25 MR#: [id number] Acct: [id number] Name: LIZA HANCOCK Rep #: [id number] : 1935 89 From: Jovan Girard MD PCP: Dr. Clinton Fowler DO Status:REG ER Location: ED HPI History of Present Illness Chief Complaint: Weakness Detail of Chief Complaint: Weakness/failure to thrive Onset/Context/Timing Onset: - (Patient admitted May 13. Discharged today. Detailed HPI narrative) Timing: Continuous and Waxes and wanes Quality: Unable to stand and walk or use roll aid Location: Driveway of residence Current Severity: Unable to determine patient with significant dementia Worsened by: Nothing progression of dementia Relieved by: Nothing Associated Symptoms Associated Symptoms: Nothing per Narrative Narrative: Patient was admitted on May 13. Dr. Juan Francisco Fournier's note was reviewed. Patient was admitted to the hospital. OT PT consult was obtained as well as case management. Recommendation was placement in nursing facility. states that they would be going to daughter's house who has a single level and hospital bed. She was discharged in the hospital this afternoon. They went on a ride which she has missed her . They got food through [employer] drive-through. She stated she wanted to go to "the [place] ". She apparently lived in a [place]. and patient went for drive. When they got home she would not get out of the car. He put things away. When he came out to get her she was not able to get out of car. He assisted. He placed her on the [employer]ola[employer]. She sat with no activity. She was not able to push the device. She then sat on the ground. She did not fall. Prior similar symptoms: Yes Recent Illness[facility]ati [facility]: [facility] Medical History GERD (gastroesophageal reflux disease) TIA [...] 1,000 mg PO DAILY supplement 11/3001/11/23 History rszcfivz-qtp-tcujx acid 0.4 1 ea PO BID supplement [...] 06/07/23 Unknown His tory (Tylenol Extra Strength) wzegkk-yxpqngsd-hibea se 3 cap PO .aqc #300 caps 07/24/24 U nknown Rx 36,000-114,000-180,00 0 unit capsule,delay rel (Creon) atorvastatin 40 mg tablet 80 mg PO [...] mg PO BID 05/13/25 Unknown His tory ropinirole 0.5 mg tablet 0.5 mg PO DAILY 05/13/25 Unknown H istory Allergy/AdvReac Type Severity Reaction Status Date / Time pollen extracts Allergy Intermediate PT UNSURE Verified 05/13/25 12:59 OF REACTION Family History Mother Alzheimer disease Brother Alzheimer disease Aunt Alzheimer disease Father Heart disease Surgical History H/O lumpectomy H/O: hysterectomy History of tonsillectomy Social History ... Normal [facility] H AND P Exam - Hospitaliston 05-16-2025 H&P Exam - Hospitalist [facility] Medical Records Department [address] [place] [address] H P Exam - Hospitalist 05/16/252114 MR#: [id number] Acct: [id number] Name: LIZA HANCOCK Rep #: [id number] : 1935 89 From: Yaima Tobias MD PCP: Dr. Clinton Fowler, DO Status:ADM TARA Location: MS3 [id number] HPI - General General Date of Admission: 05/16/25 Date of Service: 05/16/25 Chief Complaint: Adult FTT. HPI Narrative The patient is an 89-year-old female with past medical history advanced dementia with unclear behavioral disturbance history, chronic anemia, diabetes mellitus type II, GERD, hypertension, hyperlipidemia, exocrine pancreatic insufficiency, Sjogren syndrome, restless leg syndrome, TOBY with chart documented CPAP usage, discharged earlier in the day on 05/16/2025 secondary to patient family preference to return to home for ongoing therapies in the home setting with also recently noted Klebsiella urinary tract infection previously that had completed antibiotic therapies who now re- presents to the [facility] ED on 05/16/2025 secondary to unfortunately upon return to home and attempted get into the house she was unable to even get out of the car with noting that her legs would just not work and she could not even push her device eventually lowering to the ground with no specific fall or trauma. Given her inability to even function the situation has been brought her back in for shelter facility placement. [facility] Medical History GERD (gastroesophageal reflux disease) TIA [...] 1,000 mg PO DAILY supplement 11/3001/11/23 History gccojnxg-ugp-ayzrm acid 0.4 1 ea PO BID supplement [...] 06/07/23 Unknown His tory (Tylenol Extra Strength) gpxpzk-ehnkspji-crcox se 3 cap PO .aqc #300 caps 07/24/24 U nknown Rx 36,000-114,000-180,00 0 unit capsule,delay rel (Creon) atorvastatin 40 mg tablet 80 mg PO [...] mg PO BID 05/13/25 Unknown His tory ropinirole 0.5 mg tablet 0.5 mg PO [...] Systems ROS Unobtainable: due to mental condition Vital Signs Vital Signs Vital Signs: 05/16/25 19:18 05/16/25 19:23 Temperature 98.1 F (more content not included)... Normal [facility] Bedside Glucoseon 05-15-2025 FINGERSTICK GLU 146 mg/dL High 74-106 [facility] Comment on above: Result Comment: IRENE GEMENT OF PATIENT CARE PER NURSING PROTOCOL Performed By: #### L 501.080 #### [facility] [address] [place], [address] FINGERSTICK GLU 212 mg/dL High [facility]106 [facility] Comment on above: Result Comment: IRENE GEMENT OF PATIENT CARE PER NURSING PROTOCOL Performed By: #### L 501.080 #### [facility] [address] [place], [address] FINGERSTICK GLU 213 mg/dL High [facility]106 [facility] Comment on above: Result Comment: IRENE GEMENT OF PATIENT CARE PER NURSING PROTOCOL Performed By: #### L 501.080 #### [facility] [address] [place], [address] FINGERSTICK GLU 121 mg/dL High [facility]106 [facility] Comment on above: Result Comment: IRENE GEMENT OF PATIENT CARE PER NURSING PROTOCOL Performed By: #### L 500.2500, L100.0100 #### [facility] [address] [place], [address] Culture, Blood (WB)on 2024 CUB Blood cultures x2, from two different sites No growth in 5 days. Normal [facility] Comment on above: Performed By: #### L 501.4021, M200.1000 #### [facility] [address] [place], [address] Performed By: #### L 501.080 #### [facility] [address] [place], [address] Basic Metabolic Profile (BMP )on 05-14-2025 BUN/CRE 15.3 RATIO Normal 10-20 [facility] Comment on above: Performed By: #### L 501.080 #### [facility] [address] [place], [address] Calcium [Mass/Vol] 9.1 mg/dL Normal 7.6-11.0 [facility] Comment on above: Performed By: #### L 501.080 #### [facility] [address] [place], [address] Chloride [Moles/Vol] 104 mmol/L Normal 98-108 [facility] Comment on above: Performed By: #### L 501.080 #### [facility] [address] [place], [address] CO2 [Moles/Vol] 22.7 mmol/L Normal 21.0-32.0 [facility] Comment on above: Performed By: #### L 501.080 #### [facility] [address] [place], [address] Creatinine [Mass/Vol] 1.30 mg/dL High 0.70-1.20 [facility] Comment on above: Performed By: #### L 501.080 #### [facility] [address] [place], [address] ECRCL 28.29 ml/min Low 50-250 [facility] Comment on above: Performed By: #### L 501.080 #### [facility] [address] [place], [address] GAP 8 Normal 5-15 [facility] Comment on above: Performed By: #### L 501.080 #### [facility] [address] [place], [address] GFR/1.73 sq M.predicted among non-blacks MDRD (S/P/Bld) [Vol rate/Area] 39 mL/min/{1.73_m2} Low >60 [facility] Comment on above: Result Comment: mL/m in/1.73m2 CKD-EPI Creatinine Equation (2020) Performed By: #### L 501.080 #### [facility] [address] [place], [address] Glucose [Mass/Vol] 103 mg/dL High 70-99 [facility] Comment on above: Performed By: #### L 501.080 #### [facility] [address] [place], [address] Potassium [Moles/Vol] 5.1 mmol/L Normal 3.3-5.1 [facility] Comment on above: Result Comment: Hemo lysis present, Results??could be affected. ?? Performed By: #### L 501.080 #### [facility] [address] [place], [address] Sodium [Moles/Vol] 134 mmol/L Normal 133-145 [facility] Comment on above: Performed By: #### L 501.080 #### [facility] [address] [place], [address] Urea nitrogen [Mass/Vol] 20 mg/dL High 4-19 [facility] Comment on above: Performed By: #### L 501.080 #### [facility] [address] [place], [address] Bedside Glucoseon 05-14-2025 FINGERSTICK GLU 165 mg/dL High 74-106 [facility] Comment on above: Result Comment: IRENE GEMENT OF PATIENT CARE PER NURSING PROTOCOL Performed By: #### L 501.080 #### [facility] [address] [place], [address] FINGERSTICK GLU 147 mg/dL High 74-106 [facility] Comment on above: Result Comment: IRENE GEMENT OF PATIENT CARE PER NURSING PROTOCOL Performed By: #### L 500.2500, L100.0100 #### [facility] [address] [place], [address] FINGERSTICK GLU 107 mg/dL High 74-106 [facility] Comment on above: Result Comment: IRENE GEMENT OF PATIENT CARE PER NURSING PROTOCOL Performed By: #### L 501.080 #### [facility] [address] [place], [address] FINGERSTICK GLU 90 mg/dL Normal 74-106 [facility] Comment on above: Result Comment: IRENE GEMENT OF PATIENT CARE PER NURSING PROTOCOL Performed By: #### L 501.080 #### [facility] [address] [place], [address] CBC-Complete Blood Cnt No Di ffon 05-14-2025 Erythrocyte distribution width (RBC) [Ratio] 12.8 % Normal 11.6-14.6 [facility] Comment on above: Performed By: #### L 501.080 #### [facility] [address] [place], [address] Hematocrit (Bld) [Volume fraction] 30.6 % Low 37-47 [facility] Comment on above: Performed By: #### L 501.080 #### [facility] [address] [place], [address] Hemoglobin (Bld) [Mass/Vol] 10.2 g/dL Low 12.0-15. 0 [facility] Comment on above: Performed By: #### L 501.080 #### [facility] [address] [place], [address] MCH (RBC) [Entitic mass] 31.5 pg Normal 27.0-32.0 [facility] Comment on above: Performed By: #### L 501.080 #### [facility] [address] [place], [address] MCHC (RBC) [Mass/Vol] 33.3 g/dL Normal 32-36 [facility] Comment on above: Performed By: #### L 501.080 #### [facility] [address] [place], [address] MCV (RBC) [Entitic vol] 94.4 fL Normal 81-99 [facility] Comment on above: Performed By: #### L 501.080 #### [facility] [address] [place], [address] Platelet mean volume (Bld) [Entitic vol] 10.7 fL Normal 6.2-12.0 [facility] Comment on above: Performed By: #### L 501.080 #### [facility] [address] [place], [address] Platelets (Bld) [#/Vol] 166 10*3/uL Normal 150-450 [facility] Comment on above: Performed By: #### L 501.080 #### [facility] [address] [place], [address] RBC (Bld) [#/Vol] 3.24 10*6/uL Low 4.2-5.4 [facility] Comment on above: Performed By: #### L 501.080 #### [facility] [address] [place], [address] RDW SD 44.2 fl High 35.1-43.9 [facility] Comment on above: Performed By: #### L 501.080 #### [facility] [address] [place], [address] WBC (Bld) [#/Vol] 6.3 10*3/uL Normal 4.4-11.0 [facility] Comment on above: Performed By: #### L 501.080 #### [facility] [address] [place], [address] 12 Lead EKGon 05-13-2025 [address] [facility] Cardiovascular Services [address] [place] [address] 12 Lead EKG 05/13/25 1334 MR#: [id number] Acct: [id number] Name: LIZA HANCOCK Rep #: [id number] : 1935 89 From: Gera Corbett MD Attending Dr: Dr. Dereck Oliveros MD Status: ADM TARA Ordering Dr: Nikita Alvarado MD Date: 05/13/25 Location: [facility] Sex: F C Admitted: 05/13/25 Test Reason [...] ECG Confirmed by ADAIR CANTOR, GERA ([id number]), social media editor JUDD UMANA ([id number]) on 05/15/2025 9:59:12 AM Referred By: [place] Confirmed By: GERA CORBETT MD 05/15/25 0959 Date Gera Corbett MD CC: Dr. Nikita Alvarado MD; Dr. Clinton Fowler DO; Dr. Dereck Oliveros MD Signed Normal [facility] Bedside Glucoseon 05-13-2025 FINGERSTICK GLU 118 mg/dL High 74-106 [facility] Comment on above: Result Comment: IRENE GEMENT OF PATIENT CARE PER NURSING PROTOCOL Performed By: #### L 501.080 #### [facility] [address] [place], [address] CBC W/Diff, Automatedon Absolute Lymph 1.80 X10 3/uL Normal 0.83-4.51 [facility] Comment on above: Performed By: #### L 501.080 #### [facility] [address] [place], [address] Absolute Neut 4.6 X10 3/uL Normal 2.0-7.7 [facility] Comment on above: Performed By: #### L 501.080 #### [facility] [address] [place], [address] Basophils/100 WBC (Bld) 1.5 % High 0-1 [facility] Comment on above: Performed By: #### L 501.080 #### [facility] [address] [place], [address] Eosinophils/100 WBC (Bld) 2.8 % Normal 0-5 [facility] Comment on above: Performed By: #### L 501.080 #### [facility] [address] [place], [address] Erythrocyte distribution width (RBC) [Ratio] 12.8 % Normal 11.6-14.6 [facility] Comment on above: Performed By: #### L 501.080 #### [facility] [address] [place], [address] Hematocrit (Bld) [Volume fraction] 32.5 % Low 37-47 [facility] Comment on above: Performed By: #### L 501.080 #### [facility] [address] [place], [address] Hemoglobin (Bld) [Mass/Vol] 10.8 g/dL Low 12.0-15. 0 [facility] Comment on above: Performed By: #### L 501.080 #### [facility] [address] [place], [address] IG% 0.700 Normal 0.0-0.9 [facility] Comment on above: Result Comment: IG% - Immature Granulocytes (promyelocytes, myelocytes and metamyelocytes) > 1% indicates that a LEFT SHIFT is Present. Performed By: #### L 501.080 #### [facility] [address] [place], [address] Lymphocytes/100 WBC (Bld) 24.0 % Normal 19-41 [facility] Comment on above: Performed By: #### L 501.080 #### [facility] [address] [place], [address] MCH (RBC) [Entitic mass] 31.7 pg Normal 27.0-32.0 [facility] Comment on above: Performed By: #### L 501.080 #### [facility] [address] [place], [address] MCHC (RBC) [Mass/Vol] 33.2 g/dL Normal 32-36 [facility] Comment on above: Performed By: #### L 501.080 #### [facility] [address] [place], [address] MCV (RBC) [Entitic vol] 95.3 fL Normal 81-99 [facility] Comment on above: Performed By: #### L 501.080 #### [facility] [address] [place], [address] Monocytes/100 WBC (Bld) 9.5 % Normal 0-10 [facility] Comment on above: Performed By: #### L 501.080 #### [facility] [address] [place], [address] Neutrophils/100 WBC (Bld) 61.5 % Normal 47-70 [facility] Comment on above: Performed By: #### L 501.080 #### [facility] [address] [place], [address] Nucleated RBC (Bld) [#/Vol] 0 10*3/uL Normal 0-5 [facility] Comment on above: Performed By: #### L 501.080 #### [facility] [address] [place], [address] Platelet mean volume (Bld) [Entitic vol] 10.4 fL Normal 6.2-12.0 [facility] Comment on above: Performed By: #### L 501.080 #### [facility] [address] [place], [address] Platelets (Bld) [#/Vol] 181 10*3/uL Normal 150-450 [facility] Comment on above: Performed By: #### L 501.080 #### [facility] [address] [place], [address] RBC (Bld) [#/Vol] 3.41 10*6/uL Low 4.2-5.4 [facility] Comment on above: Performed By: #### L 501.080 #### [facility] [address] [place], [address] RDW SD 45.0 fl High 35.1-43.9 [facility] Comment on above: Performed By: #### L 501.080 #### [facility] [address] [place], [address] WBC (Bld) [#/Vol] 7.5 10*3/uL Normal 4.4-11.0 [facility] Comment on above: Performed By: #### L 501.080 #### [facility] [address] [place], [address] Chest 1 View (Portable)on Chest 1 View (Portable) [facility] Imaging Services [address] [place] [address] Chest 1 View (Portable) MR#: [id number] Acct: [id number] Name: LIZA HANCOCK Rep #: [id number] : 1935 F 89 From: Alex ramsey MD PCP: Dr. Clinton Fowler DO Status: REG ER Study: Chest 1 View (Portable) Date of Exam: 05/13/25 Exam# [id number] Ordering Dr: Nikita Alvarado MD PROCEDURE: CHEST [...] Calcified right infrahilar lymph node. Reading Location: [id number] CC: Dr. Nikita Alvarado MD; Dr. Clinton Fowler DO [employer]: Signed Normal [facility] Comprehensive Metabolic Prof ilon 05-13-2025 Albumin [Mass/Vol] 3.6 g/dL Normal 3.4-4.8 [facility] Comment on above: Performed By: #### L 501.080 #### [facility] [address] [place], [address] Albumin/Globulin [Mass ratio] 1.4 {ratio} Normal 0.9-2.4 [facility] Comment on above: Performed By: #### L 501.080 #### [facility] [address] [place], [address] ALK PHOS 75 U/L Normal 35-104 [facility] Comment on above: Performed By: #### L 501.080 #### [facility] [address] [place], [address] ALT [Catalytic activity/Vol] 20 U/L Normal <=34 [facility] Comment on above: Performed By: #### L 501.080 #### [facility] [address] [place], [address] AST [Catalytic activity/Vol] 25 U/L Normal <=31 [facility] Comment on above: Performed By: #### L 501.080 #### [facility] [address] [place], [address] Bilirubin [Mass/Vol] 0.20 mg/dL Normal 0.00-1.30 [facility] Comment on above: Performed By: #### L 501.080 #### [facility] [address] [place], [address] BUN/CRE 16.1 RATIO Normal 10-20 [facility] Comment on above: Performed By: #### L 501.080 #### [facility] [address] [place], [address] Calcium [Mass/Vol] 9.5 mg/dL Normal 7.6-11.0 [facility] Comment on above: Performed By: #### L 501.080 #### [facility] [address] [place], [address] Chloride [Moles/Vol] 103 mmol/L Normal 98-108 [facility] Comment on above: Performed By: #### L 501.080 #### [facility] [address] [place], [address] CO2 [Moles/Vol] 23.5 mmol/L Normal 21.0-32.0 [facility] Comment on above: Performed By: #### L 501.080 #### [facility] [address] [place], [address] Creatinine [Mass/Vol] 1.27 mg/dL High 0.70-1.20 [facility] Comment on above: Performed By: #### L 501.080 #### [facility] [address] [place], [address] ECRCL 29.64 ml/min Low 50-250 [facility] Comment on above: Performed By: #### L 501.080 #### [facility] [address] [place], [address] GAP 8 Normal 5-15 [facility] Comment on above: Performed By: #### L 501.080 #### [facility] [address] [place], [address] GFR/1.73 sq M.predicted among non-blacks MDRD (S/P/Bld) [Vol rate/Area] 40 mL/min/{1.73_m2} Low >60 [facility] Comment on above: Result Comment: mL/m in/1.73m2 CKD-EPI Creatinine Equation (2020) Performed By: #### L 501.080 #### [facility] [address] [place], [address] Globulin (S) [Mass/Vol] 2.5 g/dL Normal 2.2-4.2 [facility] Comment on above: Performed By: #### L 501.080 #### [facility] [address] [place], [address] Glucose [Mass/Vol] 130 mg/dL High 70-99 [facility] Comment on above: Performed By: #### L 501.080 #### [facility] [address] [place], [address] Potassium [Moles/Vol] 5.0 mmol/L Normal 3.3-5.1 [facility] Comment on above: Performed By: #### L 501.080 #### [facility] [address] [place], [address] Sodium [Moles/Vol] 134 mmol/L Normal 133-145 [facility] Comment on above: Performed By: #### L 501.080 #### [facility] [address], [place], [id number] T PROT 6.1 g/dL Normal 5.9-8.4 [facility] Comment on above: Performed By: #### L 501.080 #### [facility] [address] [place], [place], [id number] Urea nitrogen [Mass/Vol] 21 mg/dL High 4-19 [facility] Comment on above: Performed By: #### L 501.080 #### [facility] [address] [place], [place], [address] Emergency Department Summary on 05-13-2025 Emergency Department Summary [facility] Medical Records Department [address] [place] [address] Emergency Department Summary 05/13/25 MR#: [id number] Acct: [id number] Name: LIZA HANCOCK Rep #: [id number] : 1935 89 From: Nikita Alvarado MD [...] Caregiver notes a possible missed antibiotic dose. [facility] Medical History GERD (gastroesophageal reflux disease) [...] 1,000 mg PO DAILY supplement 11/3001/11/23 History hybkgbcp-qjy-xiaij acid 0.4 1 ea PO BID supplement [...] 06/07/23 Unknown His tory (Tylenol Extra Strength) ujgkxj-bnundqof-phrab se 3 cap PO .aqc #300 caps [...] History of tonsillectomy Social History ... Normal [facility] H AND P Exam - Hospitaliston 05-13-2025 H&P Exam - Hospitalist [facility] Medical Records Department [address] [place] [address] H P Exam - Hospitalist 05/13/25 1559 MR#: [id number] Acct: [id number] Name: LIZA HANCOCK Rep #: [id number] : 1935 89 From: Louis Stoddard DO PCP: Dr. Clinton Fowler, DO Status:ADM TARA Location: [facility] [id number] HPI - General General Date of Admission: 05/13/25 Date of Service: 05/13/25 Chief Complaint: Weakness HPI Narrative LIZA HANCOCK, is a 89 F who presented to [facility] ED on 05/13/2025 with worsening weakness. [...] possible. Will be admitted for further management. [facility] Medical History GERD (gastroesophageal reflux disease) TIA [...] 1,000 mg PO DAILY supplement 11/3001/11/23 History xvwpfaiu-ygj-vzzac acid 0.4 1 ea PO BID supplement [...] 06/07/23 Unknown His tory (Tylenol Extra Strength) iigbvb-mcntmxcc-ycohv se 3 cap PO .aqc #300 caps [...] nitrofurantoin macrocryst (more content not included)... Normal [facility] Hemoglobin A1con 05-13-2025 HbA1c (Bld) [Mass fraction] 6.5 % High <=5.6 [facility] Comment on above: Order Comment: Comme nts: ok to add on Result Comment: Norm al < 5.7 % Prediabetic 5.7 - 6.4 % Diabetic >or= 6.5 % Please note range changes. Performed By: #### L 501.080 #### [facility] [address] [place], [address] L501.4021on 05-13-2025 Trop T High Sen 27 ng/L High <=14 [facility] Comment on above: Performed By: #### L 501.4021, M200.1000 #### [facility] [address] [place], [address] Lactic Acidon 05-13-2025 Lactate [Moles/Vol] 1.6 mmol/L Normal 0.0-2.0 [facility] Comment on above: Order Comment: Y Performed By: #### L 501.080 #### [facility] [address] [place], [address] Troponin T HS 2 HRon 025 Trop T High Sen 28 ng/L High <=14 [facility] Comment on above: Performed By: #### L 501.080 #### [facility] [address] [place], [address] Troponin T HS 4 HRon 05-13- 025 Trop T High Sen 29 ng/L High <=14 [facility] Comment on above: Performed By: #### L 499.0043 #### [facility] [address] [place], [address] Urinalysis, Completeon 05-13 EPI,TRANSITION 0-5 SEEN Normal 0-5 [facility] Comment on above: Order Comment: CLEAN CATCH Performed By: #### L 501.080 #### [facility] [address] [place], [address] RBC 0-5 SEEN Normal 0-5 [facility] Comment on above: Order Comment: CLEAN CATCH Performed By: #### L 501.080 #### [facility] [address] [place], [address] WBC 0-5 SEEN Normal 0-5 [facility] Comment on above: Order Comment: CLEAN CATCH Performed By: #### L 501.080 #### [facility] [address] [place], [address] BACTERIA 0 SEEN Normal None Seen [facility] Comment on above: Order Comment: CLEAN CATCH Performed By: #### L 501.080 #### [facility] [address] [place], [address] EPI,SQUAMOUS 0 SEEN Normal 5-10 [facility] Comment on above: Order Comment: CLEAN CATCH Performed By: #### L 501.080 #### [facility] [address] [place], [address] Mucus Ql (Urine sed) 0 SEEN Normal [facility] Comment on above: Order Comment: CLEAN CATCH Performed By: #### L 501.080 #### [facility] [address] [place], [address] Urine Cultureon 05-07-2025 URC Klebsiella pneumonia e sp pneum Gallina Count >100,000 Klebsiella pneumoniae sp pneum: REACTION [...] TMP SMX Islt JIMI <=20 S Normal [facility] Comment on above: Performed By: #### L 501.080 #### [facility] [address] [place], [place], [id number] 12 Lead EKGon 05-05-2025 [address] [facility] Cardiovascular Services [address] [place] [address] 12 Lead EKG 05/05/25 1147 MR#: [id number] Acct: [id number] Name: LIZA HANCOCK Rep #: [id number] : 1935 89 From: Gerald Hagan MD [...] QRS Borderline ECG Confirmed by Gerald Hagan ([id number]), social media editor WESLEY JOHN ([id number]) on 05/06/2025 1:41:34 PM Referred By: Confirmed By: Gerald Hagan 05/06/25 1341 Date Gerald Hagan MD CC: Dr. Alex Saha MD; Dr. Clinton Fowler DO Signed Normal [facility] Brain/Head without Contrasto n 05-05-2025 Brain/Head without Contrast [facility] Imaging Services [address] [place] [address] Brain/Head without Contrast MR#: [id number] Acct: [id number] Name: LIZA HANCOCK Rep #: [id number] : 1935 F 89 From: Froilan Dillon MD PCP: Dr. Clinton Fowler DO Status: REG ER Study: Brain/Head without Contrast Date of Exam: 04/16 08/09 Exam# [id number] Ordering Dr: Alex Saha MD EXAM: NONCONTRAST [...] Alex Saha MD; Dr. Clinton Fowler DO Registrar Museum: Signed Normal [facility] CBC W/Diff, Automatedon 10-2 1-2025 Absolute Lymph 1.82 X10 3/uL Normal 0.83-4.51 [facility] Comment on above: Performed By: #### L 501.080 #### [facility] [address] [place], [address] Absolute Neut 5.2 X10 3/uL Normal 2.0-7.7 [facility] Comment on above: Performed By: #### L 501.080 #### [facility] [address] [place], [address] Basophils/100 WBC (Bld) 0.9 % Normal 0-1 [facility] Comment on above: Performed By: #### L 501.080 #### [facility] [address] [place], [address] Eosinophils/100 WBC (Bld) 3.1 % Normal 0-5 [facility] Comment on above: Performed By: #### L 501.080 #### [facility] [address] [place], [address] Erythrocyte distribution width (RBC) [Ratio] 12.6 % Normal 11.6-14.6 [facility] Comment on above: Performed By: #### L 501.080 #### [facility] [address] [place], [address] Hematocrit (Bld) [Volume fraction] 34.2 % Low 37-47 [facility] Comment on above: Performed By: #### L 501.080 #### [facility] [address] [place], [address] Hemoglobin (Bld) [Mass/Vol] 11.6 g/dL Low 12.0-15. 0 [facility] Comment on above: Performed By: #### L 501.080 #### [facility] [address] [place], [address] IG% 0.400 Normal 0.0-0.9 [facility] Comment on above: Result Comment: IG% - Immature Granulocytes (promyelocytes, myelocytes and metamyelocytes) > 1% indicates that a LEFT SHIFT is Present. Performed By: #### L 501.080 #### [facility] [address] [place], [address] Lymphocytes/100 WBC (Bld) 22.6 % Normal 19-41 [facility] Comment on above: Performed By: #### L 501.080 #### [facility] [address] [place], [address] MCH (RBC) [Entitic mass] 31.7 pg Normal 27.0-32.0 [facility] Comment on above: Performed By: #### L 501.080 #### [facility] [address] [place], [address] MCHC (RBC) [Mass/Vol] 33.9 g/dL Normal 32-36 [facility] Comment on above: Performed By: #### L 501.080 #### [facility] [address] [place], [address] MCV (RBC) [Entitic vol] 93.4 fL Normal 81-99 [facility] Comment on above: Performed By: #### L 501.080 #### [facility] [address] [place], [address] Monocytes/100 WBC (Bld) 7.8 % Normal 0-10 [facility] Comment on above: Performed By: #### L 501.080 #### [facility] [address] [place], [address] Neutrophils/100 WBC (Bld) 65.2 % Normal 47-70 [facility] Comment on above: Performed By: #### L 501.080 #### [facility] [address] [place], [address] Nucleated RBC (Bld) [#/Vol] 0 10*3/uL Normal 0-5 [facility] Comment on above: Performed By: #### L 501.080 #### [facility] [address] [place], [address] Platelet mean volume (Bld) [Entitic vol] 10.9 fL Normal 6.2-12.0 [facility] Comment on above: Performed By: #### L 501.080 #### [facility] [address] [place], [address] Platelets (Bld) [#/Vol] 169 10*3/uL Normal 150-450 [facility] Comment on above: Performed By: #### L 501.080 #### [facility] [address] [place], [address] RBC (Bld) [#/Vol] 3.66 10*6/uL Low 4.2-5.4 [facility] Comment on above: Performed By: #### L 501.080 #### [facility] [address] [place], [address] RDW SD 43.2 fl Normal 35.1-43.9 [facility] Comment on above: Performed By: #### L 501.080 #### [facility] [address] [place], [address] WBC (Bld) [#/Vol] 8.0 10*3/uL Normal 4.4-11.0 [facility] Comment on above: Performed By: #### L 501.080 #### [facility] [address] [place], [address] Chest 1 View (Portable)on Chest 1 View (Portable) [facility] Imaging Services [address] [place] [address] Chest 1 View (Portable) MR#: [id number] Acct: [id number] Name: LIZA HANCOCK Rep #: [id number] : 1935 F 89 From: Froilan Dillon MD PCP: Dr. Clinton Fowler DO Status: REG ER Study: Chest 1 View (Portable) Date of Exam: 05/05/25 Exam# [id number] Ordering Dr: Alex Saha MD PROCEDURE: CHEST [...] Alex Saha MD; Dr. Clinton Fowler DO Registrar Museum: Signed Normal [facility] Comprehensive Metabolic Prof ilon 05-05-2025 Albumin [Mass/Vol] 4.0 g/dL Normal 3.4-4.8 [facility] Comment on above: Performed By: #### L 501.080 #### [facility] [address] [place], [address] Albumin/Globulin [Mass ratio] 1.6 {ratio} Normal 0.9-2.4 [facility] Comment on above: Performed By: #### L 501.080 #### [facility] [address] [place], [address] ALK PHOS 74 U/L Normal 35-104 [facility] Comment on above: Performed By: #### L 501.080 #### [facility] [address] [place], [address] ALT [Catalytic activity/Vol] 20 U/L Normal <=34 [facility] Comment on above: Performed By: #### L 501.080 #### [facility] [address] [place], [address] AST [Catalytic activity/Vol] 26 U/L Normal <=31 [facility] Comment on above: Performed By: #### L 501.080 #### [facility] [address] [place], [address] Bilirubin [Mass/Vol] 0.62 mg/dL Normal 0.00-1.30 [facility] Comment on above: Performed By: #### L 501.080 #### [facility] [address] [place], [address] BUN/CRE 19.0 RATIO Normal 10-20 [facility] Comment on above: Performed By: #### L 501.080 #### [facility] [address] [place], [address] Calcium [Mass/Vol] 9.5 mg/dL Normal 7.6-11.0 [facility] Comment on above: Performed By: #### L 501.080 #### [facility] [address] [place], [address] Chloride [Moles/Vol] 100 mmol/L Normal 98-108 [facility] Comment on above: Performed By: #### L 501.080 #### [facility] [address] [place], [address] CO2 [Moles/Vol] 24.3 mmol/L Normal 21.0-32.0 [facility] Comment on above: Performed By: #### L 501.080 #### [facility] [address] [place], [address] Creatinine [Mass/Vol] 0.93 mg/dL Normal 0.70-1.20 [facility] Comment on above: Performed By: #### L 501.080 #### [facility] [address] [place], [address] ECRCL 39.88 ml/min Low 50-250 [facility] Comment on above: Performed By: #### L 501.080 #### [facility] [address] [place], [address] GAP 9 Normal 5-15 [facility] Comment on above: Performed By: #### L 501.080 #### [facility] [address] [place], [address] GFR/1.73 sq M.predicted among non-blacks MDRD (S/P/Bld) [Vol rate/Area] 59 mL/min/{1.73_m2} Low >60 [facility] Comment on above: Result Comment: mL/m in/1.73m2 CKD-EPI Creatinine Equation (2020) Performed By: #### L 501.080 #### [facility] [address] [place], [address] Globulin (S) [Mass/Vol] 2.5 g/dL Normal 2.2-4.2 [facility] Comment on above: Performed By: #### L 501.080 #### [facility] [address] [place], [address] Glucose [Mass/Vol] 98 mg/dL Normal 70-99 [facility] Comment on above: Performed By: #### L 501.080 #### [facility] [address] [place], [address] Potassium [Moles/Vol] 4.5 mmol/L Normal 3.3-5.1 [facility] Comment on above: Performed By: #### L 501.080 #### [facility] [address] [place], [address] Sodium [Moles/Vol] 133 mmol/L Normal 133-145 [facility] Comment on above: Performed By: #### L 501.080 #### [facility] [address] [place], [address] T PROT 6.5 g/dL Normal 5.9-8.4 [facility] Comment on above: Performed By: #### L 501.080 #### [facility] [address] [place], [place], [address] Urea nitrogen [Mass/Vol] 18 mg/dL Normal 4-19 [facility] Comment on above: Performed By: #### L 501.080 #### [facility] [address] [place], [place], [address] Emergency Department Summary on 05-05-2025 Emergency Department Summary [facility] Medical Records Department [address] [place] [address] Emergency Department Summary 05/05/25 MR#: [id number] Acct: [id number] Name: LIZA HANCOCK Rep #: [id number] : 1935 89 From: Alex Saha MD PCP: Dr. Clinton Fowler DO Status:DEP ER Location: ED ADDENDUM by Dr. Jovan Girard MD on 05/07/25 at 1623 Urine culture sensitivity returned greater than 100,000 Klebsiella pneumonia. Based on sensitivity she was treated with trimethyl sulfa Proctosol double strength tab 1 twice daily for 7 days. 05/07/25 1623 Cosigner Signature (if applicable): cc: Dr. Clinton Fowler DO * Signed ADDENDUM by Dr. Alex Saha MD on 05/05/25 at 1400 EKG was obtained and interpreted by myself independently as sinus bradycardia at [address] changes. No STEMI. No significant change from previous dated May 2023 although rate was faster. 05/05/25 1400 Cosigner Signature (if applicable): cc: Dr. Clinton Fowler DO * Signed HPI History of Present Illness Chief Complaint: Alt LOC Narrative Narrative: 89-year-old female presents with her via EMS with acute change in mental status. History and physical is limited secondary to dementia. Additionally, her states that she had a stroke in 2018 which limits her vocabulary. She usually says the word "virus". And naming certain things. She is repetitive [...] knew that something was wrong and different. [facility] Medical History GERD (gastroesophageal reflux disease) [...] QHS cholesterol #30 tabs 12/03/17 01/11/23 Rx bhhhtfoi-aln-fwkxi acid 0.4 1 ea PO BID supplement [...] or pain Unknown History (Tylenol Extra Strength) vyprtv-bdgrywrp-sryev se 3 cap PO .aqc #300 caps [...] OF RE (more content not included)... Normal [facility] Urinalysis, Completeon 05-05 BACTERIA 2+ /hpf Normal None Seen [facility] Comment on above: Order Comment: CLEAN CATCH Performed By: #### L 501.080 #### [facility] [address] [place], [address] WBC 0-5 SEEN Normal 0-5 [facility] Comment on above: Order Comment: CLEAN CATCH Performed By: #### L 501.080 #### [facility] [address] [place], [address] EPI,SQUAMOUS 0 SEEN Normal 5-10 [facility] Comment on above: Order Comment: CLEAN CATCH Performed By: #### L 501.080 #### [facility] [address] [place], [address] Mucus Ql (Urine sed) 0 SEEN Normal [facility] Comment on above: Order Comment: CLEAN CATCH Performed By: #### L 501.080 #### [facility] [address] [place], [address] RBC 0 SEEN Normal 0-5 [facility] Comment on above: Order Comment: CLEAN CATCH Performed By: #### L 501.080 #### [facility] [address] [place], [address] Urine Cultureon 04-01-2025 URC Presumptive E. coli Gallina Count >100,000 Presumptive E. coli: REACTION Ampicillin [...] TMP SMX Islt JIMI >=320 R Normal [facility] Comment on above: Performed By: #### L 500.2500, L100.0100 #### [facility] [address] [place], [address] Absolute lymphocyte countOrd ered By: Quentin Oshea on 03-30-2025 Lymphocytes Auto (Unsp spec) [#/Vol] 2.97 10*3/uL 0.83-4.51 [facility] Absolute neutrophil countOrd ered By: Quentin Oshea on 03-30-2025 Neutrophils (Bld) [#/Vol] 3.1 10*3/uL 2.0-7.7 [facility] Anion gap in Serum or Plasma Ordered By: Quentin sOhea on 03-30-2025 Anion gap [Moles/Vol] 8 mmol/L 11-27 [facility] Automated blood erythrocyte countOrdered By: Quentin Oshea on 03-30-2025 RBC (Bld) [#/Vol] 3.35 10*6/uL Low 4.2-5.4 [facility] Comment on above: Performed By: #### L 501.080 #### [facility] [address] [place], [address] Automated blood hematocrit ( percentage)Ordered By: Quentin Oshea on 03-30-2025 Hematocrit (Bld) [Volume fraction] 32.2 % Low 37-47 [facility] Comment on above: Performed By: #### L 501.080 #### [facility] [address] [place], [address] Automated lymphocyte count a s percentage of total leukocytesOrdered By: Quentin Oshea on 03-30-2025 Lymphocytes/100 WBC Auto (Unsp spec) 42.1 % High 19-41 [facility] BUN/creatinine ratioOrdered By: Quentin Oshea on 03-30-2025 Urea nitrogen/Creatinine [Mass ratio] 20.0 mg/mg 05-04 [facility] Basic Metabolic Profile (BMP )on 03-30-2025 BUN/CRE 20.0 RATIO Normal 05-04 [facility] Comment on above: Performed By: #### L 501.080 #### [facility] [address] [place], [address] ECRCL 32.99 ml/min Low 50-250 [facility] Comment on above: Performed By: #### L 501.080 #### [facility] [address] [place], [address] GAP 8 Normal 11-27 [facility] Comment on above: Performed By: #### L 501.080 #### [facility] [address] [place], [address] Potassium [Moles/Vol] 4.4 mmol/L Normal 3.3-5.1 [facility] Comment on above: Performed By: #### L 501.080 #### [facility] [address] [place], [address] Basophil percentageOrdered B y: Quentin Oshea on 03-30-2025 Basophils/100 WBC (Bld) 1.0 % Normal 0-1 [facility] Comment on above: Performed By: #### L 501.080 #### [facility] [address] [place], [address] Bilirubin Test strip Ql (U)O rdered By: Quentin Oshea on 03-30-2025 Bilirubin Ql (U) Negative Negative [facility] Bilirubin directOrdered By: Quentin Oshea on 03-30-2025 Bilirubin.direct [Mass/Vol] 0.13 mg/dL Normal 0.00-0.3 0 [facility] Comment on above: Performed By: #### L 499.0043 #### [facility] [address] [place], [address] Bilirubin, totalOrdered By: Quentin Oshea on 03-30-2025 Bilirubin [Mass/Vol] 0.24 mg/dL Normal 0.00-1.30 [facility] Comment on above: Performed By: #### L 499.0043 #### [facility] [address] [place], [address] Brain/Head without Contrasto n 03-30-2025 Brain/Head without Contrast [facility] Imaging Services [address] [place] [address] Brain/Head without Contrast MR#: [id number] Acct: [id number] Name: LIZA HANCOCK Rep #: [id number] : 1935 F 89 From: Phyllis douglas MD PCP: Dr. Clinton Fowler DO Status: REG ER Study: Brain/Head without Contrast Date of Exam: 03/16 12/07 Exam# [id number] Ordering Dr: Quentin Oshea DO PROCEDURE: BRAIN/HEAD [...] matches brain involutional changes. Stable. Reading Location: [place] [address] CC: Dr. Clinton Fowler DO; Quentin Oshea DO Registrar Museum: Signed Normal [facility] CBC W/Diff, Automatedon 03-16 Absolute Lymph 2.97 X10 3/uL Normal 0.83-4.51 [facility] Comment on above: Performed By: #### L 501.080 #### [facility], [address] Absolute Neut 3.1 X10 3/uL Normal 2.0-7.7 [facility] Comment on above: Performed By: #### L 501.080 #### [facility] [address] [place], [address] IG% 0.400 Normal 0.0-0.9 [facility] Comment on above: Result Comment: IG% - Immature Granulocytes (promyelocytes, myelocytes and metamyelocytes) > 1% indicates that a LEFT SHIFT is Present. Performed By: #### L 501.080 #### [facility] [address] [place], [address] Lymphocytes/100 WBC (Bld) 42.1 % High 19-41 [facility] Comment on above: Performed By: #### L 501.080 #### [facility] [address] [place], [address] Nucleated RBC (Bld) [#/Vol] 0 10*3/uL Normal 0-5 [facility] Comment on above: Performed By: #### L 501.080 #### [facility] [address] [place], [address] RDW SD 45.1 fl High 35.1-43.9 [facility] Comment on above: Performed By: #### L 501.080 #### [facility] [address] [place], [address] Carbon dioxide, total [Moles /volume] in Central venous bloodOrdered By: Quentin Oshea on 03-30-2025 CO2 [Moles/Vol] 25.9 mmol/L Normal 21.0-32.0 [facility] Comment on above: Performed By: #### L 501.080 #### [facility] [address] [place], [address] Chloride assayOrdered By: Ivette Oshea on 03-30-2025 Chloride [Moles/Vol] 106 mmol/L Normal 98-108 [facility] [facility] Comment on above: Performed By: #### L 501.080 #### [facility] [address] [place], [address] Emergency Department Summary on 03-30-2025 Emergency Department Summary [facility] Medical Records Department [address] [place] [address] Emergency Department Summary 03/30/25 MR#: [id number] Acct: [id number] Name: LIZA HANCOCK Rep #: [id number] : 1935 89 From: Quentin Oshea DO PCP: Dr. Clinton Fowler DO Status:DEP [...] any history based on her dementia status [facility] Medical History GERD (gastroesophageal reflux disease) [...] QHS cholesterol #30 tabs 12/03/17 01/11/23 Rx unjxtbol-hvg-vajew acid 0.4 1 ea PO BID supplement [...] or pain Unknown History (Tylenol Extra Strength) zylsoo-gganpodo-xxdup se 3 cap PO .aqc #300 caps [...] Status: N (more content not included)... Normal [facility] Eosinophil percentageOrdered By: Quentin Oshea on 03-30-2025 Eosinophils/100 WBC (Bld) 3.8 % Normal 0-5 [facility] Comment on above: Performed By: #### L 501.080 #### [facility] [address], [place], [id number] Erythrocyte distribution wid th ratioOrdered By: Quentin Oshea on 03-30-2025 Erythrocyte distribution width (RBC) [Ratio] 12.8 % Normal 11.6-14.6 [facility] Comment on above: Performed By: #### L 501.080 #### [facility] [address] [place], [address] Erythrocyte distribution wid th standard deviationOrdered By: Quentin Oshea on 03-30-2025 Erythrocyte distribution width (RBC) [Ratio] 45.1 fl High 35.1-43.9 [facility] Glomerular filtration rate ( GFR) estimation/1.73 sq m using serum, plasma, or whole bOrdered By: Quentin Oshea on 03-30-2025 GFR/1.73 sq M.predicted among non-blacks MDRD (S/P/Bld) [Vol rate/Area] 47 mL/min/{1.73_m2} Low >60 [facility] Comment on above: mL/min/1.73m2 CKD-EP I Creatinine Equation (2020) Result Comment: mL/m in/1.73m2 CKD-EPI Creatinine Equation (2020) Performed By: #### L 501.080 #### [facility] [address] [place], [address] Hemoglobin measurementOrdere d By: Quentin Oshea on 03-30-2025 Hemoglobin (Bld) [Mass/Vol] 10.5 g/dL Low 12.0-15. 0 [facility] Comment on above: Performed By: #### L 501.080 #### [facility] [address] [place], [address] Immature granulocytes/100 WB C Auto (Bld)Ordered By: Quentin Oshea on 03-30-2025 Immature granulocytes/100 WBC (Bld) 0.400 % 0.0-0.9 [facility] Comment on above: IG% - Immature Granu locytes (promyelocytes, myelocytes and metamyelocytes) > 1% indicates that a LEFT SHIFT is Present. Ketones Test strip Ql (U)Ord ered By: Quentin Oshea on 03-30-2025 Ketones Ql (U) Negative Negative [facility] Liver Profileon 03-30-2025 ALK PHOS 69 U/L Normal 35-104 [facility] Comment on above: Performed By: #### L 499.0043 #### [facility] [address] [place], [address] T PROT 6.2 g/dL Normal 5.9-8.4 [facility] Comment on above: Performed By: #### L 499.0043 #### [facility] [address] [place], [address] Liver ProfileOrdered By: Alli Oshea on 03-30-2025 AST [Catalytic activity/Vol] 22 U/L Normal <=31 [facility] Comment on above: Performed By: #### L 499.0043 #### [facility] [address] [place], [address] MCV (mean corpuscular volume ) determinationOrdered By: Quentin Oshea on 03-30-2025 MCV (RBC) [Entitic vol] 96.1 fL Normal 81-99 [facility] Comment on above: Performed By: #### L 501.080 #### [facility] [address] [place], [address] Mean corpuscular hemoglobin (MCH) determinationOrdered By: Quentin Oshea on 03-30-2025 MCH (RBC) [Entitic mass] 31.3 pg Normal 27.0-32.0 [facility] Comment on above: Performed By: #### L 501.080 #### [facility] [address] [place], [address] Mean corpuscular hemoglobin concentration (MCHC) determinationOrdered By: Quentin Oshea on 03-30-2025 MCHC (RBC) [Mass/Vol] 32.6 g/dL Normal 32-36 [facility] Comment on above: Performed By: #### L 501.080 #### [facility] [address] [place], [address] Mean platelet volume determi nationOrdered By: Quentin Oshea on 03-30-2025 Platelet mean volume (Bld) [Entitic vol] 10.4 fL Normal 6.2-12.0 [facility] Comment on above: Performed By: #### L 501.080 #### [facility] [address] [place], [address] Microscopic analysis of urin e for red blood cells (RBC)Ordered By: Quentin Oshea on 03-30-2025 Microscopic analysis of urine for red blood cells (RBC) 0 SEEN /hpf 0-5 [facility] Monocyte percentageOrdered B y: Quentin Oshea on 03-30-2025 Monocytes/100 WBC (Bld) 9.1 % Normal 0-10 [facility] Comment on above: Performed By: #### L 501.080 #### [facility] [address] [place], [place], [address] Mucus LM Ql (Urine sed)Order ed By: Quentin Oshea on 03-30-2025 Mucus Ql (Urine sed) 0 SEEN /hpf [facility] Neutrophil percentageOrdered By: Quentin Oshea on 03-30-2025 Neutrophils/100 WBC (Bld) 43.6 % Low 47-70 [facility] Comment on above: Performed By: #### L 501.080 #### [facility] [address] [facility] [place], [place], [id number] Nitrite Test strip Ql (U)Ord ered By: Quentin Oshea on 03-30-2025 Nitrite Ql (U) Positive High Negative [facility] Nucleated red blood cell per centageOrdered By: Quentin Oshea on 03-30-2025 Nucleated RBC/100 WBC (Bld) [Ratio] 0 % 0-5 [facility] Platelet countOrdered By: Ivette Oshea on 03-30-2025 Platelets (Bld) [#/Vol] 161 10*3/uL Normal 150-450 [facility] Comment on above: Performed By: #### L 501.080 #### [facility] [address] [place], [place], [address] Potassium measurement (mass/ volume)Ordered By: Quentin Oshea on 03-30-2025 Potassium (Unsp spec) [Mass/Vol] 4.4 mmol/L 3.3-5.1 [facility] Protein Test strip Ql (U)Ord ered By: Quentin Oshea on 03-30-2025 Protein Ql (U) Negative Negative [facility] Serum creatinine measurement (mass/volume)Ordered By: Quentin Oshea on 03-30-2025 Creatinine [Mass/Vol] 1.12 mg/dL Normal 0.70-1.20 [facility] Comment on above: Performed By: #### L 501.080 #### [facility] [address] [place], [address] Serum globulin measurementOr dered By: Quentin Oshea on 03-30-2025 Globulin (S) [Mass/Vol] 2.6 g/dL Normal 2.2-4.2 [facility] Comment on above: Performed By: #### L 499.0043 #### [facility] [address] [place], [address] Serum glucose measurement (m ass/volume)Ordered By: Quentin Oshea on 03-30-2025 Glucose [Mass/Vol] 131 mg/dL High 70-99 [facility] Comment on above: Performed By: #### L 501.080 #### [facility] [address] [place], [address] Serum or plasma alanine lay otransferase (ALT) measurementOrdered By: Quentin Oshea on 03-30-2025 ALT [Catalytic activity/Vol] 18 U/L Normal <=34 [facility] Comment on above: Performed By: #### L 499.0043 #### [facility] [address] [place], [address] Serum or plasma albumin beck urement (mass/volume)Ordered By: Quentin Oshea on 03-30-2025 Albumin [Mass/Vol] 3.6 g/dL Normal 3.4-4.8 [facility] Comment on above: Performed By: #### L 499.0043 #### [facility] [address] [place], [address] Serum or plasma alkaline hector sphatase measurementOrdered By: Quentin Oshea on 03-30-2025 ALP [Catalytic activity/Vol] 69 U/L 35-104 [facility] Serum or plasma calcium beck urement (mass/volume)Ordered By: Quentin Oshea on 03-30-2025 Calcium [Mass/Vol] 9.4 mg/dL Normal 7.6-11.0 [facility] Comment on above: Performed By: #### L 501.080 #### [facility] [address] [place], [address] Serum or plasma urea nitroge n measurement (mass/volume)Ordered By: Quentin Oshea on 03-30-2025 Urea nitrogen [Mass/Vol] 22 mg/dL High 4-19 [facility] Comment on above: Performed By: #### L 501.080 #### [facility] [address] [place], [address] Sodium levelOrdered By: Fred Oshea on 03-30-2025 Sodium [Moles/Vol] 140 mmol/L Normal 133-145 [facility] Comment on above: Performed By: #### L 501.080 #### [facility] [address] [place], [address] Squamous epithelial cells de tection in urine sediment by light microscopyOrdered By: Quentin Oshea on 03-30-2025 Epithelial cells.squamous LM Ql (Urine sed) 0 SEEN /hpf 5-10 [facility] TSH DL <= 0.005 mIU/L QnOrde red By: Quentin Oshea on 03-30-2025 TSH Qn 2.710 uIU/mL 0.300-4.200 [facility] Thyroid Stim Hormone (TSH)on 03-30-2025 TSH 2.710 uIU/mL Normal 0.300-4.200 [facility] Comment on above: Performed By: #### L 499.0043 #### [facility] [address] [place], [address] Total proteinOrdered By: Alli Oshea on 03-30-2025 Protein [Mass/Vol] 6.2 g/dL 5.9-8.4 [facility] Urinalysis, Completeon 03-30 BACTERIA 2+ /hpf Normal None Seen [facility] Comment on above: Order Comment: LUCIA TER SPECIMEN Performed By: #### L 501.080 #### [facility] [address] [place], [address] WBC 5-10 SEEN Normal 0-5 [facility] Comment on above: Order Comment: LUCIA TER SPECIMEN Performed By: #### L 501.080 #### [facility] [address] [place], [address] EPI,SQUAMOUS 0 SEEN Normal 5-10 [facility] Comment on above: Order Comment: LUCIA TER SPECIMEN Performed By: #### L 501.080 #### [facility] [address] [place], [address] Mucus Ql (Urine sed) 0 SEEN Normal [facility] Comment on above: Order Comment: LUCIA TER SPECIMEN Performed By: #### L 501.080 #### [facility] [address] [place], [address] RBC 0 SEEN Normal 0-5 [facility] Comment on above: Order Comment: LUCIA TER SPECIMEN Performed By: #### L 501.080 #### [facility] [address] [place], [address] Urine clarityOrdered By: Alli Oshea on 03-30-2025 Clarity (U) Clear Clear [facility] Urine color determinationOrd ered By: Quentin Oshea on 03-30-2025 Color (U) Yellow Yellow [facility] Urine glucose detectionOrder ed By: Quentin Oshea on 03-30-2025 Glucose Ql (U) Normal mg/dl Normal [facility] Urine leukocyte esterase det ection by dipstickOrdered By: Quentin Oshea on 03-30-2025 Leukocyte esterase Test strip Ql (U) 100 /ul High Negative [facility] Urine pHOrdered By: Quentin fox on 03-30-2025 pH (U) 6.5 [pH] 5.0 - 8.0 [facility] Urine sediment bacteria coun t by microscopy (number/high power field)Ordered By: Quentin Oshea on 03-30-2025 Bacteria LM.HPF (Urine sed) [#/Area] 2 /[HPF] None Seen [facility] Urine specific gravity measu rementOrdered By: Quentin Oshea on 03-30-2025 Specific gravity (U) [Rel density] 1.010 1.002-1.030 [facility] Urine urobilinogen measureme ntOrdered By: Quentin Oshea on 03-30-2025 Urobilinogen Ql (U) Normal mg/dl Normal [facility] White blood cell (WBC) count Ordered By: Quentin Oshea on 03-30-2025 WBC (Bld) [#/Vol] 7.1 10*3/uL Normal 4.4-11.0 [facility] Comment on above: Performed By: #### L 501.080 #### [facility] [address] [facility] [address] [place], [place], [address] White blood cell countOrdere d By: Quentin Oshea on 03-30-2025 White blood cell count 5-10 SEEN /hpf 0-5 [facility] Urine Cultureon 02-24-2025 URC Escherichia coli Gallina Count >100,000 Escherichia coli: REACTION Ampicillin Islt [...] TMP SMX Islt JIMI >=320 R Normal [facility] Comment on above: Performed By: #### L 500.2500, L100.0100 #### [facility] [address] [place], [place], [address] Absolute lymphocyte countOrd ered By: Sixto Alvarez on 02-22-2025 Lymphocytes Auto (Unsp spec) [#/Vol] 2.77 10*3/uL 0.83-4.51 [facility] Absolute neutrophil countOrd ered By: Sixto Alvarez on 02-22-2025 Neutrophils (Bld) [#/Vol] 3.1 10*3/uL 2.0-7.7 [facility] Anion gap in Serum or Plasma Ordered By: Sixto Alvarez on 02-22-2025 Anion gap [Moles/Vol] 9 mmol/L 5-15 [facility] Automated lymphocyte count a s percentage of total leukocytesOrdered By: Sixto Alvarez on 02-22-2025 Lymphocytes/100 WBC Auto (Unsp spec) 39.9 % - [facility] BUN/creatinine ratioOrdered By: Sixto Alvarez on 02-22-2025 Urea nitrogen/Creatinine [Mass ratio] 22.9 mg/mg High 05-04 [facility] Basic Metabolic Profile (BMP )on 02-22-2025 BUN/CRE 22.9 RATIO High 05-04 [facility] Comment on above: Performed By: #### L 500.2500, L100.0100 #### [facility] [address] [place], [address] Calcium [Mass/Vol] 9.2 mg/dL Normal 7.6-11.0 [facility] Comment on above: Performed By: #### L 500.2500, L100.0100 #### [facility] [address] [place], [address] Chloride [Moles/Vol] 106 mmol/L Normal 98-108 [facility] Comment on above: Performed By: #### L 500.2500, L100.0100 #### [facility] [address] [place], [address] CO2 [Moles/Vol] 23.6 mmol/L Normal 21.0-32.0 [facility] Comment on above: Performed By: #### L 500.2500, L100.0100 #### [facility] [address] [place], [address] Creatinine [Mass/Vol] 1.01 mg/dL Normal 0.70-1.20 [facility] Comment on above: Performed By: #### L 500.2500, L100.0100 #### [facility] [address] [place], [address] ECRCL 37.27 ml/min Low 50-250 [facility] Comment on above: Performed By: #### L 500.2500, L100.0100 #### [facility] [address] [place], [address] GAP 9 Normal 5-15 [facility] Comment on above: Performed By: #### L 500.2500, L100.0100 #### [facility] [address] [place], [address] GFR/1.73 sq M.predicted among non-blacks MDRD (S/P/Bld) [Vol rate/Area] 53 mL/min/{1.73_m2} Low >60 [facility] Comment on above: Result Comment: mL/m in/1.73m2 CKD-EPI Creatinine Equation (2020) Performed By: #### L 500.2500, L100.0100 #### [facility] [address] [place], [address] Glucose [Mass/Vol] 138 mg/dL High 70-99 [facility] Comment on above: Performed By: #### L 500.2500, L100.0100 #### [facility] [address] [place], [address] Potassium [Moles/Vol] 4.7 mmol/L Normal 3.3-5.1 [facility] Comment on above: Result Comment: Hemo lysis present, Results??could be affected. ?? Performed By: #### L 500.2500, L100.0100 #### [facility] [address] [place], [address] Sodium [Moles/Vol] 139 mmol/L Normal 133-145 [facility] Comment on above: Performed By: #### L 500.2500, L100.0100 #### [facility] [address] [place], [address] Urea nitrogen [Mass/Vol] 23 mg/dL High 4-19 [facility] Comment on above: Performed By: #### L 500.2500, L100.0100 #### [facility] [address] [place], [address] Basophil percentageOrdered B y: Sixto Alvarez on 02-22-2025 Basophils/100 WBC (Bld) 1.0 % 0-1 [facility] Bilirubin Test strip Ql (U)O rdered By: Sixto Alvarez on 02-22-2025 Bilirubin Ql (U) Negative Negative [facility] Brain/Head without Contrasto n 02-22-2025 Brain/Head without Contrast [facility] Imaging Services [address] [place] [address] Brain/Head without Contrast MR#: [id number] Acct: [id number] Name: LIZA HANCOCK Rep #: [id number] : 1935 F 89 From: Nathaly Carney nd, MD PCP: Dr. Clinton Fowler, DO Status: REG ER Study: Brain/Head without Contrast Date of Exam: 02/13 Exam# [id number] Ordering Dr: Sixto Alvarez DO EXAM: BRAIN/HEAD [...] IMPRESSION: No acute intracranial finding. Reading Location: [id number] CC: Dr. Sixto Alvarez, DO; Dr. Clinton Fowler, DO Registrar Museum: Signed Normal [facility] CBC W/Diff, Automatedon 02-13 Absolute Lymph 2.77 X10 3/uL Normal 0.83-4.51 [facility] Comment on above: Performed By: #### L 500.2500, L100.0100 #### [facility] [address] [place], [address] Absolute Neut 3.1 X10 3/uL Normal 2.0-7.7 [facility] Comment on above: Performed By: #### L 500.2500, L100.0100 #### [facility] [address] [place], [address] Basophils/100 WBC (Bld) 1.0 % Normal 0-1 [facility] Comment on above: Performed By: #### L 500.2500, L100.0100 #### [facility] [address] [place], [address] Eosinophils/100 WBC (Bld) 3.6 % Normal 0-5 [facility] Comment on above: Performed By: #### L 500.2500, L100.0100 #### [facility] [address] [place], [address] Erythrocyte distribution width (RBC) [Ratio] 13.1 % Normal 11.6-14.6 [facility] Comment on above: Performed By: #### L 500.2500, L100.0100 #### [facility] [address] [place], [address] Hematocrit (Bld) [Volume fraction] 30.7 % Low 37-47 [facility] Comment on above: Performed By: #### L 500.2500, L100.0100 #### [facility] [address] [place], [address] Hemoglobin (Bld) [Mass/Vol] 10.1 g/dL Low 12.0-15. 0 [facility] Comment on above: Performed By: #### L 500.2500, L100.0100 #### [facility] [address] [place], [address] IG% 0.600 Normal 0.0-0.9 [facility] Comment on above: Result Comment: IG% - Immature Granulocytes (promyelocytes, myelocytes and metamyelocytes) > 1% indicates that a LEFT SHIFT is Present. Performed By: #### L 500.2500, L100.0100 #### [facility] [address] [place], [address] Lymphocytes/100 WBC (Bld) 39.9 % Normal 19-41 [facility] Comment on above: Performed By: #### L 500.2500, L100.0100 #### [facility] [address] [place], [address] MCH (RBC) [Entitic mass] 31.3 pg Normal 27.0-32.0 [facility] Comment on above: Performed By: #### L 500.2500, L100.0100 #### [facility] [address] [place], [address] MCHC (RBC) [Mass/Vol] 32.9 g/dL Normal 32-36 [facility] Comment on above: Performed By: #### L 500.2500, L100.0100 #### [facility] [address] [place], [address] MCV (RBC) [Entitic vol] 95.0 fL Normal 81-99 [facility] Comment on above: Performed By: #### L 500.2500, L100.0100 #### [facility] [address] [place], [address] Monocytes/100 WBC (Bld) 9.9 % Normal 0-10 [facility] Comment on above: Performed By: #### L 500.2500, L100.0100 #### [facility] [address] [place], [address] Neutrophils/100 WBC (Bld) 45.0 % Low 47-70 [facility] Comment on above: Performed By: #### L 500.2500, L100.0100 #### [facility] [address] [place], [address] Nucleated RBC (Bld) [#/Vol] 0 10*3/uL Normal 0-5 [facility] Comment on above: Performed By: #### L 500.2500, L100.0100 #### [facility] [address] [place], [address] Platelet mean volume (Bld) [Entitic vol] 11.0 fL Normal 6.2-12.0 [facility] Comment on above: Performed By: #### L 500.2500, L100.0100 #### [facility] [address] [place], [address] Platelets (Bld) [#/Vol] 165 10*3/uL Normal 150-450 [facility] Comment on above: Performed By: #### L 500.2500, L100.0100 #### [facility] [address] [place], [address] RBC (Bld) [#/Vol] 3.23 10*6/uL Low 4.2-5.4 [facility] Comment on above: Performed By: #### L 500.2500, L100.0100 #### [facility] [address] [place], [address] RDW SD 45.7 fl High 35.1-43.9 [facility] Comment on above: Performed By: #### L 500.2500, L100.0100 #### [facility] [address] [place], [address] WBC (Bld) [#/Vol] 6.9 10*3/uL Normal 4.4-11.0 [facility] Comment on above: Performed By: #### L 500.2500, L100.0100 #### [facility] [address] [place], [address] Carbon dioxide, total [Moles /volume] in Central venous bloodOrdered By: Sixto Alvarez on 02-22-2025 CO2 [Moles/Vol] 23.6 mmol/L 21.0-32.0 [facility] Chest PA and Lateralon 02-22 Chest PA and Lateral [facility] Imaging Services [address] [place] [address] Chest PA and Lateral MR#: [id number] Acct: [id number] Name: LIZA HANCOCK Rep #: [id number] : 1935 F 89 From: Nathaly Carney nd, MD PCP: Dr. Clinton Fowler, DO Status: REG ER Study: Chest PA and Lateral Date of Exam: 02/22/25 Exam# [id number] Ordering Dr: Sixto Alvarez DO PROCEDURE: CHEST [...] Lateral IMPRESSION: NO ACUTE FINDINGS. Reading Location: [id number] CC: Dr. Sixto Alvarez DO; Dr. Clinton Fowler DO Registrar Museum: Signed Normal [facility] Chloride assayOrdered By: Siva Alvarez on 02-22-2025 Chloride [Moles/Vol] 106 mmol/L 98-108 [facility] Emergency Department Summary on 02-22-2025 Emergency Department Summary [facility] Medical Records Department [address] [place] [address] Emergency Department Summary 02/22/25 MR#: [id number] Acct: [id number] Name: LIZA HANCOCK Rep #: [id number] : 1935 89 From: Sixto Alvarez DO PCP: Dr. Clinton Fowler DO Status:DEP ER Location: ED HPI History of Present Illness Chief Complaint: Weakness Informant: spouse/S.O. Onset/Context/Timing Onset: Today Context: Sudden Onset Timing: Intermittent and Lasts (Approximately 30 minutes) Quality: Nonverbal, "asleep". Location: Generalized Worsened by: Nothing Relieved by: Nothing Narrative Narrative: Patient presents today with weakness and episode of being nonverbal and "unresponsive". states that the patient woke up and [...] denies any shortness of breath or cough. [facility] Medical History GERD (gastroesophageal reflux disease) [...] QHS cholesterol #30 tabs 12/03/17 01/11/23 Rx dtxoxjnp-bzw-bjsxq acid 0.4 1 ea PO BID supplement [...] or pain Unknown History (Tylenol Extra Strength) mtsnll-uonlrafd-biggq se 3 cap PO .aqc #300 caps [...] due t (more content not included)... Normal [facility] Eosinophil percentageOrdered By: Sixto Alvarez on 02-22-2025 Eosinophils/100 WBC (Bld) 3.6 % 0-5 [facility] Erythrocyte distribution wid th ratioOrdered By: Sixto Alvarez on 02-22-2025 Erythrocyte distribution width (RBC) [Ratio] 13.1 % 11.6-14.6 [facility] Erythrocyte distribution wid th standard deviationOrdered By: Sixto Alvarez on 02-22-2025 Erythrocyte distribution width (RBC) [Ratio] 45.7 fl High 35.1-43.9 [facility] Glomerular filtration rate ( GFR) estimation/1.73 sq m using serum, plasma, or whole bOrdered By: Sixto Alvarez on 02-22-2025 GFR/1.73 sq M.predicted among non-blacks MDRD (S/P/Bld) [Vol rate/Area] 53 mL/min/{1.73_m2} Low >60 [facility] Comment on above: mL/min/1.73m2 CKD-EP I Creatinine Equation (2020) Hematocrit Auto (Bld) [Volum e fraction]Ordered By: Sixto Alvarez on 02-22-2025 Hematocrit (Bld) [Volume fraction] 30.7 % Low 37-47 [facility] Hemoglobin measurementOrdere d By: Sixto Alvarez on 02-22-2025 Hemoglobin (Bld) [Mass/Vol] 10.1 g/dL Low 12.0-15. 0 [facility] Immature granulocytes/100 WB C Auto (Bld)Ordered By: Sixto Alvarez on 02-22-2025 Immature granulocytes/100 WBC (Bld) 0.600 % 0.0-0.9 [facility] Comment on above: IG% - Immature Granu locytes (promyelocytes, myelocytes and metamyelocytes) > 1% indicates that a LEFT SHIFT is Present. Ketones Test strip Ql (U)Ord ered By: Sixto Alvarez on 02-22-2025 Ketones Ql (U) Negative Negative [facility] MCV (mean corpuscular volume ) determinationOrdered By: Sixto Alvarez on 02-22-2025 MCV (RBC) [Entitic vol] 95.0 fL 81-99 [facility] Mean corpuscular hemoglobin (MCH) determinationOrdered By: Sixto Alvarez 02-22-2025 MCH (RBC) [Entitic mass] 31.3 pg 27.0-32.0 [facility] Mean corpuscular hemoglobin concentration (MCHC) determinationOrdered By: Sixto Alvarez 02-22-2025 MCHC (RBC) [Mass/Vol] 32.9 g/dL 32-36 [facility] Mean platelet volume determi nationOrdered By: Sixto Alvarez 02-22-2025 Platelet mean volume (Bld) [Entitic vol] 11.0 fL 6.2-12.0 [facility] Microscopic analysis of urin e for red blood cells (RBC)Ordered By: Sixto Alvarez on 02-22-2025 Microscopic analysis of urine for red blood cells (RBC) 0 SEEN /hpf 0-5 [facility] Monocyte percentageOrdered B y: Sixto Alvarez on 02-22-2025 Monocytes/100 WBC (Bld) 9.9 % 0-10 [facility] Mucus LM Ql (Urine sed)Order ed By: Sixto Alvarez on 02-22-2025 Mucus Ql (Urine sed) RARE /hpf [facility] Neutrophil percentageOrdered By: Sixto Alvarez on 02-22-2025 Neutrophils/100 WBC (Bld) 45.0 % Low 47-70 [facility] Nitrite Test strip Ql (U)Ord ered By: Sixto Alvarez on 02-22-2025 Nitrite Ql (U) Negative Negative [facility] Nucleated red blood cell per centageOrdered By: Sixto Alvarez on 02-22-2025 Nucleated RBC/100 WBC (Bld) [Ratio] 0 % 0-5 [facility] Platelet countOrdered By: Siva Alvarez on 02-22-2025 Platelets (Bld) [#/Vol] 165 10*3/uL 150-450 [facility] Potassium measurement (mass/ volume)Ordered By: Sixto Alvarez on 02-22-2025 Potassium (Unsp spec) [Mass/Vol] 4.7 mmol/L 3.3-5.1 [facility] Comment on above: Hemolysis present, R esults could be affected. Protein Test strip Ql (U)Ord ered By: Sixto Alvarez on 02-22-2025 Protein Ql (U) 15 mg/dl High Negative [facility] RBC Auto (Bld) [#/Vol]Ordere d By: Sixto Alvarez on 02-22-2025 RBC (Bld) [#/Vol] 3.23 10*6/uL Low 4.2-5.4 [facility] Serum creatinine measurement (mass/volume)Ordered By: Sixto Alvarez on 02-22-2025 Creatinine [Mass/Vol] 1.01 mg/dL 0.70-1.20 [facility] Serum glucose measurement (m ass/volume)Ordered By: Sixto Alvarez on 02-22-2025 Glucose [Mass/Vol] 138 mg/dL High 70-99 [facility] Serum or plasma calcium beck urement (mass/volume)Ordered By: Sixto Alvarez on 02-22-2025 Calcium [Mass/Vol] 9.2 mg/dL 7.6-11.0 [facility] Serum or plasma urea nitroge n measurement (mass/volume)Ordered By: Sixto Alvarez on 02-22-2025 Urea nitrogen [Mass/Vol] 23 mg/dL High 4-19 [facility] Sodium levelOrdered By: Sixto Alvarez on 02-22-2025 Sodium [Moles/Vol] 139 mmol/L 133-145 [facility] Squamous epithelial cells de tection in urine sediment by light microscopyOrdered By: Sixto Alvarez on 02-22-2025 Epithelial cells.squamous LM Ql (Urine sed) 0-5 SEEN /hpf 5-10 [facility] Urinalysis, Completeon 02-22 EPI,RENAL 0-5 SEEN Normal 0-5 [facility] Comment on above: Order Comment: CLEAN CATCH Performed By: #### L 501.080 #### [facility] [address] [place], [address] BACTERIA 2+ /hpf Normal None Seen [facility] Comment on above: Order Comment: CLEAN CATCH Performed By: #### L 501.080 #### [facility] [address] [place], [address] EPI,SQUAMOUS 0-5 SEEN Normal 5-10 [facility] Comment on above: Order Comment: CLEAN CATCH Performed By: #### L 501.080 #### [facility] [address] [place], [address] Mucus Ql (Urine sed) RARE Normal [facility] Comment on above: Order Comment: CLEAN CATCH Performed By: #### L 501.080 #### [facility] [address] [place], [address] WBC 5-10 SEEN Normal 0-5 [facility] Comment on above: Order Comment: CLEAN CATCH Performed By: #### L 501.080 #### [facility] [address] [place], [address] RBC 0 SEEN Normal 0-5 [facility] Comment on above: Order Comment: CLEAN CATCH Performed By: #### L 501.080 #### [facility] [place] [address] [place], [address] Urine clarityOrdered By: Debbie Alvarez on 02-22-2025 Clarity (U) Clear Clear [facility] Urine color determinationOrd ered By: Sixto Alvarez on 02-22-2025 Color (U) Yellow Yellow [facility] Urine cultureOrdered By: Debbie Alvarez on 02-22-2025 Bacteria identified Cx Nom (U) Escherichia coli Abnormal [facility] Urine glucose detectionOrder ed By: Sixto Avlarez on 02-22-2025 Glucose Ql (U) Normal mg/dl Normal [facility] Urine leukocyte esterase det ection by dipstickOrdered By: Sixto Alvarez on 02-22-2025 Leukocyte esterase Test strip Ql (U) 100 /ul High Negative [facility] Urine pHOrdered By: Sixto hollingsworth on 02-22-2025 pH (U) 6.0 [pH] 5.0 - 8.0 [facility] Urine sediment bacteria coun t by microscopy (number/high power field)Ordered By: Sixto Alvarez on 02-22-2025 Bacteria LM.HPF (Urine sed) [#/Area] 2 /[HPF] None Seen [facility] Urine sediment renal epithel ial cell count by microscopy (number/high power field)Ordered By: Sixto Alvarez on 02-22-2025 Epithelial cells.renal LM.HPF (Urine sed) [#/Area] 0 /[HPF] 0-5 [facility] Urine specific gravity measu rementOrdered By: Sixto Alvarez on 02-22-2025 Specific gravity (U) [Rel density] 1.015 1.002-1.030 [facility] Urine urobilinogen measureme ntOrdered By: Sixto Alvarez on 02-22-2025 Urobilinogen Ql (U) Normal mg/dl Normal [facility] White blood cell (WBC) count Ordered By: Sixto Alvarez on 02-22-2025 WBC (Bld) [#/Vol] 6.9 10*3/uL 4.4-11.0 [facility] White blood cell countOrdere d By: Sixto Alvarez on 02-22-2025 White blood cell count 5-10 SEEN /hpf 0-5 [facility] Absolute lymphocyte countOrd ered By: Clinton Fowler on 01-01-2025 Lymphocytes Auto (Unsp spec) [#/Vol] 2.08 10*3/uL 0.83-4.51 [facility] Absolute neutrophil countOrd ered By: Clinton Fowler on 01-01-2025 Neutrophils (Bld) [#/Vol] 3.3 10*3/uL 2.0-7.7 [facility] Anion gap in Serum or Plasma Ordered By: Clinton Fowler on 01-01-2025 Anion gap [Moles/Vol] 10 mmol/L 5-15 [facility] Automated lymphocyte count a s percentage of total leukocytesOrdered By: Clinton Fowler on 01-01-2025 Lymphocytes/100 WBC Auto (Unsp spec) 32.7 % - [facility] BUN/creatinine ratioOrdered By: Clinton Fowler on 01-01-2025 Urea nitrogen/Creatinine [Mass ratio] 19.7 mg/mg 10-20 [facility] Basophil percentageOrdered B y: Clinton Fowler on 01-01-2025 Basophils/100 WBC (Bld) 1.4 % High 0-1 [facility] Bilirubin, totalOrdered By: Clinton Fowler on 01-01-2025 Bilirubin [Mass/Vol] 0.38 mg/dL 0.00-1.30 [facility] CBC W/Diff, Automatedon 12-14 Absolute Lymph 2.08 X10 3/uL Normal 0.83-4.51 [facility] Comment on above: Performed By: #### L 501.080 #### [facility] [address] [place], [address] Absolute Neut 3.3 X10 3/uL Normal 2.0-7.7 [facility] Comment on above: Performed By: #### L 501.080 #### [facility] [address] [place], [address] Basophils/100 WBC (Bld) 1.4 % High 0-1 [facility] Comment on above: Performed By: #### L 501.080 #### [facility] [address] [place], [address] Eosinophils/100 WBC (Bld) 3.3 % Normal 0-5 [facility] Comment on above: Performed By: #### L 501.080 #### [facility] [address] [place], [address] Erythrocyte distribution width (RBC) [Ratio] 13.3 % Normal 11.6-14.6 [facility] Comment on above: Performed By: #### L 501.080 #### [facility] [address] [place], [address] Hematocrit (Bld) [Volume fraction] 31.6 % Low 37-47 [facility] Comment on above: Performed By: #### L 501.080 #### [facility] [address] [place], [address] Hemoglobin (Bld) [Mass/Vol] 10.3 g/dL Low 12.0-15. 0 [facility] Comment on above: Performed By: #### L 501.080 #### [facility] [address] [place], [address] IG% 0.300 Normal 0.0-0.9 [facility] Comment on above: Result Comment: IG% - Immature Granulocytes (promyelocytes, myelocytes and metamyelocytes) > 1% indicates that a LEFT SHIFT is Present. Performed By: #### L 501.080 #### [facility] [address] [place], [address] Lymphocytes/100 WBC (Bld) 32.7 % Normal 19-41 [facility] Comment on above: Performed By: #### L 501.080 #### [facility] [address] [place], [address] MCH (RBC) [Entitic mass] 30.6 pg Normal 27.0-32.0 [facility] Comment on above: Performed By: #### L 501.080 #### [facility] [address] [place], [address] MCHC (RBC) [Mass/Vol] 32.6 g/dL Normal 32-36 [facility] Comment on above: Performed By: #### L 501.080 #### [facility] [address] [place], [address] MCV (RBC) [Entitic vol] 93.8 fL Normal 81-99 [facility] Comment on above: Performed By: #### L [id number] #### [facility] [address] [place], [address] Monocytes/100 WBC (Bld) 10.0 % Normal 0-10 [facility] Comment on above: Performed By: #### L 501.080 #### [facility] [address] [place], [address] Neutrophils/100 WBC (Bld) 52.3 % Normal 47-70 [facility] Comment on above: Performed By: #### L 501.080 #### [facility] [address] [place], [address] Nucleated RBC (Bld) [#/Vol] 0 10*3/uL Normal 0-5 [facility] Comment on above: Performed By: #### L 501.080 #### [facility] [address] [place], [address] Platelet mean volume (Bld) [Entitic vol] 11.5 fL Normal 6.2-12.0 [facility] Comment on above: Performed By: #### L 501.080 #### [facility] [address] [place], [address] Platelets (Bld) [#/Vol] 179 10*3/uL Normal 150-450 [facility] Comment on above: Performed By: #### L 501.080 #### [facility] [address] [place], [address] RBC (Bld) [#/Vol] 3.37 10*6/uL Low 4.2-5.4 [facility] Comment on above: Performed By: #### L 501.080 #### [facility] [address] [place], [address] RDW SD 46.0 fl High 35.1-43.9 [facility] Comment on above: Performed By: #### L 501.080 #### [facility] [address] [place], [address] WBC (Bld) [#/Vol] 6.4 10*3/uL Normal 4.4-11.0 [facility] Comment on above: Performed By: #### L 501.080 #### [facility] [address] [place], [address] Carbon dioxide, total [Moles /volume] in Central venous bloodOrdered By: Clinton Fowler on 01-01-2025 CO2 [Moles/Vol] 23.1 mmol/L 21.0-32.0 [facility] Chloride assayOrdered By: Bettie Fowler on 01-01-2025 Chloride [Moles/Vol] 106 mmol/L 98-108 [facility] Comprehensive Metabolic Prof ilon 01-01-2025 Albumin [Mass/Vol] 3.5 g/dL Normal 3.4-4.8 [facility] Comment on above: Performed By: #### L 501.4021, M200.1000 #### [facility] [address] [place], [address] Albumin/Globulin [Mass ratio] 1.4 {ratio} Normal 0.9-2.4 [facility] Comment on above: Performed By: #### L 501.4021, M200.1000 #### [facility] [address] [place], [address] ALK PHOS 74 U/L Normal 35-104 [facility] Comment on above: Performed By: #### L 501.4021, M200.1000 #### [facility] [address] [place], [address] ALT [Catalytic activity/Vol] 24 U/L Normal <=34 [facility] Comment on above: Performed By: #### L 501.4021, M200.1000 #### [facility] [address] [place], [address] AST [Catalytic activity/Vol] 27 U/L Normal <=31 [facility] Comment on above: Performed By: #### L 501.4021, M200.1000 #### [facility] [address] [place], [address] Bilirubin [Mass/Vol] 0.38 mg/dL Normal 0.00-1.30 [facility] Comment on above: Performed By: #### L 501.4021, M200.1000 #### [facility] [address] [place], [address] BUN/CRE 19.7 RATIO Normal 10-20 [facility] Comment on above: Performed By: #### L 501.4021, M200.1000 #### [facility] [address] [place], [address] Calcium [Mass/Vol] 9.4 mg/dL Normal 7.6-11.0 [facility] Comment on above: Performed By: #### L 501.4021, M200.1000 #### [facility] [address] [place], [address] Chloride [Moles/Vol] 106 mmol/L Normal 98-108 [facility] Comment on above: Performed By: #### L 501.4021, M200.1000 #### [facility] [address] [place], [address] CO2 [Moles/Vol] 23.1 mmol/L Normal 21.0-32.0 [facility] Comment on above: Performed By: #### L 501.4021, M200.1000 #### [facility] [address] [place], [address] Creatinine [Mass/Vol] 0.95 mg/dL Normal 0.70-1.20 [facility] Comment on above: Performed By: #### L 501.4021, M200.1000 #### [facility] [address] [place], [address] GAP 10 Normal 5-15 [facility] Comment on above: Performed By: #### L 501.4021, M200.1000 #### [facility] [address] [place], [address] GFR/1.73 sq M.predicted among non-blacks MDRD (S/P/Bld) [Vol rate/Area] 58 mL/min/{1.73_m2} Low >60 [facility] Comment on above: Result Comment: mL/m in/1.73m2 CKD-EPI Creatinine Equation (2020) Performed By: #### L 501.4021, M200.1000 #### [facility] [address] [place], [address] Globulin (S) [Mass/Vol] 2.6 g/dL Normal 2.2-4.2 [facility] Comment on above: Performed By: #### L 501.4021, M200.1000 #### [facility] [address] [place], [address] Glucose [Mass/Vol] 172 mg/dL High 70-99 [facility] Comment on above: Performed By: #### L 501.4021, M200.1000 #### [facility] [address] [place], [address] Potassium [Moles/Vol] 4.2 mmol/L Normal 3.3-5.1 [facility] Comment on above: Performed By: #### L 501.4021, M200.1000 #### [facility] [address] [place], [address] Sodium [Moles/Vol] 139 mmol/L Normal 133-145 [facility] Comment on above: Performed By: #### L 501.4021, M200.1000 #### [facility] [address] [place], [address] T PROT 6.1 g/dL Normal 5.9-8.4 [facility] Comment on above: Performed By: #### L 501.4021, M200.1000 #### [facility] [address] [place], [address] Urea nitrogen [Mass/Vol] 19 mg/dL Normal 4-19 [facility] Comment on above: Performed By: #### L 501.4021, M200.1000 #### [facility] [address] [place], [address] Eosinophil percentageOrdered By: Clinton Fowler on 01-01-2025 Eosinophils/100 WBC (Bld) 3.3 % 0-5 [facility] Erythrocyte distribution wid th ratioOrdered By: Clinton Fowler on 01-01-2025 Erythrocyte distribution width (RBC) [Ratio] 13.3 % 11.6-14.6 [facility] Erythrocyte distribution wid th standard deviationOrdered By: Clinton Fowler on 01-01-2025 Erythrocyte distribution width (RBC) [Ratio] 46.0 fl High 35.1-43.9 [facility] Glomerular filtration rate ( GFR) estimation/1.73 sq m using serum, plasma, or whole bOrdered By: Clinton Fowler on 01-01-2025 GFR/1.73 sq M.predicted among non-blacks MDRD (S/P/Bld) [Vol rate/Area] 58 mL/min/{1.73_m2} Low >60 [facility] Comment on above: mL/min/1.73m2 CKD-EP I Creatinine Equation (2020) Hematocrit Auto (Bld) [Volum e fraction]Ordered By: Clinton Fowler on 01-01-2025 Hematocrit (Bld) [Volume fraction] 31.6 % Low 37-47 [facility] Hemoglobin A1con 01-01-2025 HbA1c (Bld) [Mass fraction] 7.1 % High <=5.6 [facility] Comment on above: Result Comment: Norm al < 5.7 % Prediabetic 5.7 - 6.4 % Diabetic >or= 6.5 % Please note range changes. Performed By: #### L 501.080 #### [facility] [address] [place], [address] Hemoglobin A1c percentageOrd ered By: Clinton Fowler on 01-01-2025 HbA1c (Bld) [Mass fraction] 7.1 % High <5.7 [facility] Comment on above: Normal < 5.7 % Predi abetic 5.7 - 6.4 % Diabetic >or= 6.5 % Please note range changes. Hemoglobin measurementOrdere d By: Clinton Fowler on 01-01-2025 Hemoglobin (Bld) [Mass/Vol] 10.3 g/dL Low 12.0-15. 0 [facility] Immature granulocytes/100 WB C Auto (Bld)Ordered By: Clinton Fowler on 01-01-2025 Immature granulocytes/100 WBC (Bld) 0.300 % 0.0-0.9 [facility] Comment on above: IG% - Immature Granu locytes (promyelocytes, myelocytes and metamyelocytes) > 1% indicates that a LEFT SHIFT is Present. Laboratory - Chemistry and C hemistry - challengeOrdered By: Clinton Fowler on 01-01-2025 AST [Catalytic activity/Vol] 27 U/L <32 [facility] MCV (mean corpuscular volume ) determinationOrdered By: Clinton Fowler on 01-01-2025 MCV (RBC) [Entitic vol] 93.8 fL 81-99 [facility] Mean corpuscular hemoglobin (MCH) determinationOrdered By: Clinton Fowler on 01-01-2025 MCH (RBC) [Entitic mass] 30.6 pg 27.0-32.0 [facility] Mean corpuscular hemoglobin concentration (MCHC) determinationOrdered By: Clinton Fowler on 01-01-2025 MCHC (RBC) [Mass/Vol] 32.6 g/dL 32-36 [facility] Mean platelet volume determi nationOrdered By: Clinton Fowler on 01-01-2025 Platelet mean volume (Bld) [Entitic vol] 11.5 fL 6.2-12.0 [facility] Monocyte percentageOrdered B y: Clinton Fowler on 01-01-2025 Monocytes/100 WBC (Bld) 10.0 % 0-10 [facility] Neutrophil percentageOrdered By: Clinton Fowler on 01-01-2025 Neutrophils/100 WBC (Bld) 52.3 % 47-70 [facility] Nucleated red blood cell per centageOrdered By: Clinton Fowler on 01-01-2025 Nucleated RBC/100 WBC (Bld) [Ratio] 0 % 0-5 [facility] Platelet countOrdered By: Bettie Fowler on 01-01-2025 Platelets (Bld) [#/Vol] 179 10*3/uL 150-450 [facility] Potassium measurement (mass/ volume)Ordered By: Clinton Fowler on 01-01-2025 Potassium (Unsp spec) [Mass/Vol] 4.2 mmol/L 3.3-5.1 [facility] RBC Auto (Bld) [#/Vol]Ordere d By: Clinton Fowler on 01-01-2025 RBC (Bld) [#/Vol] 3.37 10*6/uL Low 4.2-5.4 [facility] Serum creatinine measurement (mass/volume)Ordered By: Clinton Fowler on 01-01-2025 Creatinine [Mass/Vol] 0.95 mg/dL 0.70-1.20 [facility] Serum globulin measurementOr dered By: Clinton Fowler on 01-01-2025 Globulin (S) [Mass/Vol] 2.6 g/dL 2.2-4.2 [facility] Serum glucose measurement (m ass/volume)Ordered By: Clinton Fowler on 01-01-2025 Glucose [Mass/Vol] 172 mg/dL High 70-99 [facility] Serum or plasma alanine lay otransferase (ALT) measurementOrdered By: Clinton Fowler on 01-01-2025 ALT [Catalytic activity/Vol] 24 U/L <35 [facility] Serum or plasma albumin beck urement (mass/volume)Ordered By: Clinton Fowler on 01-01-2025 Albumin [Mass/Vol] 3.5 g/dL 3.4-4.8 [facility] Serum or plasma albumin/glob ulin mass ratioOrdered By: Clinton Fowler on 01-01-2025 Albumin/Globulin [Mass ratio] 1.4 {ratio} 0.9-2.4 [facility] Serum or plasma alkaline hector sphatase measurementOrdered By: Clinton Fowler on 01-01-2025 ALP [Catalytic activity/Vol] 74 U/L 35-104 [facility] Serum or plasma calcium beck urement (mass/volume)Ordered By: Clinton Fowler on 01-01-2025 Calcium [Mass/Vol] 9.4 mg/dL 7.6-11.0 [facility] Serum or plasma urea nitroge n measurement (mass/volume)Ordered By: Clinton Fowler on 01-01-2025 Urea nitrogen [Mass/Vol] 19 mg/dL 4-19 [facility] Sodium levelOrdered By: Clinton Fowler on 01-01-2025 Sodium [Moles/Vol] 139 mmol/L 133-145 [facility] Total proteinOrdered By: Brynn Fowler on 01-01-2025 Protein [Mass/Vol] 6.1 g/dL 5.9-8.4 [facility] White blood cell (WBC) count Ordered By: Clinton Fowler on 01-01-2025 WBC (Bld) [#/Vol] 6.4 10*3/uL 4.4-11.0 [facility] Gastroenterology Visit Repor ton 12-11-2024 Gastroenterology Visit Report [facility] [address] [place] [address] OFFICE VISIT Date of Service: 12/11/24 MR#: [id number] Acct: [id number] Name: LIZA HANCOCK Rep #: [id number] : 1935 Provider: Hung Adames DO Age/Sex: 89/F Location: [facility] Status: Signed Intake Vital Signs 06/07/23 22:34 [...] QHS cholesterol #30 tabs 12/03/17 12/11/24 Rx ksvgkfdz-ljm-ckixp acid 0.4 1 ea PO BID supplement [...] 12/11/24 Rx monohydrate/macrocrys tals 100 mg capsule kxffxi-ainotpgx-kfqhg se 3 cap PO .aqc #300 caps [...] CRP, TS (more content not included)... Normal [facility] Urine Cultureon 06-30-2024 [facility] Presumptive E. coli Gallina Count >100,000 Presumptive E. coli: REACTION Ampicillin [...] TMP SMX Islt JIMI <=20 S Normal [facility] Comment on above: Performed By: #### L 500.2500, L100.0100 #### [facility] [address] [place], [address] Urine Cultureon 06-29-2024 [facility] UNABLE TO CHANGE INTERFACE TO CLEAN CATCH Urine Culture Normal [facility] Comment on above: Performed By: #### L 500.2500, L100.0100 #### [facility] [address] [place], [place], [address] Abdomen/Pelvis without Conto n 06-28-2024 Abdomen/Pelvis without Cont [facility] Imaging Services [address] [place] [address] Abdomen/Pelvis without Cont MR#: [id number] Acct: [id number] Name: LIZA HANCOCK Rep #: [id number] : 1935 F 89 From: Lauren Sahni MD PCP: Dr. Clinton Fowler, DO Status: REG ER Study: Abdomen/Pelvis without Cont Date of Exam: 06/15 11/06 Exam# [id number] Ordering Dr: Nikita Alvarado MD [id number] INDICATION: Right lower quadrant pain. PATIENT HAS [...] of L4 on L5. Electronically Signed: Lauren Sahin MD at 16:10 EST , CC: Dr. Nikita Alvarado MD; Dr. Clinton Fowler DO [employer]: Signed Normal [facility] CBC W/Diff, Automatedon - Absolute Lymph 2.45 X10 3/uL Normal 0.83-4.51 [facility] Comment on above: Performed By: #### L 500.2500, L100.0100 #### [facility] [address] [place], [address] Absolute Neut 4.5 X10 3/uL Normal 2.0-7.7 [facility] Comment on above: Performed By: #### L 500.2500, L100.0100 #### [facility] [address] [place], [address] Basophils/100 WBC (Bld) 0.9 % Normal 0-1 [facility] Comment on above: Performed By: #### L 500.2500, L100.0100 #### [facility] [address] [place], [address] Eosinophils/100 WBC (Bld) 3.7 % Normal 0-5 [facility] Comment on above: Performed By: #### L 500.2500, L100.0100 #### [facility] [address] [place], [address] Erythrocyte distribution width (RBC) [Ratio] 13.2 % Normal 11.6-14.6 [facility] Comment on above: Performed By: #### L 500.2500, L100.0100 #### [facility] [address] [place], [address] Hematocrit (Bld) [Volume fraction] 33.9 % Low 37-47 [facility] Comment on above: Performed By: #### L 500.2500, L100.0100 #### [facility] [address] [place], [address] Hemoglobin (Bld) [Mass/Vol] 11.2 g/dL Low 12.0-15. 0 [facility] Comment on above: Performed By: #### L 500.2500, L100.0100 #### [facility] [address] [place], [address] IG% 0.600 Normal 0.0-0.9 [facility] Comment on above: Result Comment: IG% - Immature Granulocytes (promyelocytes, myelocytes and metamyelocytes) > 1% indicates that a LEFT SHIFT is Present. Performed By: #### L 500.2500, L100.0100 #### [facility] [address] [place], [address] Lymphocytes/100 WBC (Bld) 30.6 % Normal 19-41 [facility] Comment on above: Performed By: #### L 500.2500, L100.0100 #### [facility] [address] [place], [address] MCH (RBC) [Entitic mass] 31.6 pg Normal 27.0-32.0 [facility] Comment on above: Performed By: #### L 500.2500, L100.0100 #### [facility] [address] [place], [address] MCHC (RBC) [Mass/Vol] 33.0 g/dL Normal 32-36 [facility] Comment on above: Performed By: #### L 500.2500, L100.0100 #### [facility] [address] [place], [address] MCV (RBC) [Entitic vol] 95.8 fL Normal 81-99 [facility] Comment on above: Performed By: #### L 500.2500, L100.0100 #### [facility] [address] [place], [address] Monocytes/100 WBC (Bld) 8.5 % Normal 0-10 [facility] Comment on above: Performed By: #### L 500.2500, L100.0100 #### [facility] [address] [place], [address] Neutrophils/100 WBC (Bld) 55.7 % Normal 47-70 [facility] Comment on above: Performed By: #### L 500.2500, L100.0100 #### [facility] [address] [place], [address] Nucleated RBC (Bld) [#/Vol] 0 10*3/uL Normal 0-5 [facility] Comment on above: Performed By: #### L 500.2500, L100.0100 #### [facility] [address] [place], [address] Platelet mean volume (Bld) [Entitic vol] 10.4 fL Normal 6.2-12.0 [facility] Comment on above: Performed By: #### L 500.2500, L100.0100 #### [facility] [address] [place], [address] Platelets (Bld) [#/Vol] 208 10*3/uL Normal 150-450 [facility] Comment on above: Performed By: #### L 500.2500, L100.0100 #### [facility] [address] [place], [address] RBC (Bld) [#/Vol] 3.54 10*6/uL Low 4.2-5.4 [facility] Comment on above: Performed By: #### L 500.2500, L100.0100 #### [facility] [address] [place], [address] RDW SD 46.5 fl High 35.1-43.9 [facility] Comment on above: Performed By: #### L 500.2500, L100.0100 #### [facility] [address] [place], [address] WBC (Bld) [#/Vol] 8.0 10*3/uL Normal 4.4-11.0 [facility] Comment on above: Performed By: #### L 500.2500, L100.0100 #### [facility] [address] [place], [address] [facility] 06-28-2024 Albumin [Mass/Vol] 3.3 g/dL Normal 3.2-5.0 [facility] Comment on above: Performed By: #### L 500.2500, L100.0100 #### [facility] [address] [place], [address] Albumin/Globulin [Mass ratio] 1.0 {ratio} Normal 0.9-2.4 [facility] Comment on above: Performed By: #### L 500.2500, L100.0100 #### [facility] [address] [place], [address] ALK P 79 U/L Normal 45-117 [facility] Comment on above: Performed By: #### L 500.2500, L100.0100 #### [facility] [address] [place], [address] ALT [Catalytic activity/Vol] 24 U/L Normal 13-56 [facility] Comment on above: Performed By: #### L 500.2500, L100.0100 #### [facility] [address] [place], [address] AST [Catalytic activity/Vol] 19 U/L Normal 15-37 [facility] Comment on above: Performed By: #### L 500.2500, L100.0100 #### [facility] [address] [place], [address] Bilirubin [Mass/Vol] 0.30 mg/dL Normal 0.20-1.00 [facility] Comment on above: Result Comment: For patients on eltrombopag therapy, use of [facility] TBIL is not recommended. Performed By: #### L 500.2500, L100.0100 #### [facility] [address] [place], [address] BUN/CRE 26.7 RATIO High 10-20 [facility] Comment on above: Performed By: #### L 500.2500, L100.0100 #### [facility] [address] [place], [address] CA,Total 9.0 mg/dL Normal 8.5-10.1 [facility] Comment on above: Performed By: #### L 500.2500, L100.0100 #### [facility] [address] [place], [address] Chloride [Moles/Vol] 107 mmol/L Normal 98-107 [facility] Comment on above: Performed By: #### L 500.2500, L100.0100 #### [facility] [address] [place], [address] CO2 [Moles/Vol] 30.0 mmol/L Normal 21.0-32.0 [facility] Comment on above: Performed By: #### L 500.2500, L100.0100 #### [facility] [address] [place], [address] Creatinine [Mass/Vol] 1.05 mg/dL High 0.55-1.02 [facility] Comment on above: Result Comment: The validity of the calculated GFR GFRAA in patients over 70 years has not been determined. Clinical correlation is essential. Performed By: #### L 500.2500, L100.0100 #### [facility] [address] [place], [address] ECRCL 37.79 ml/min Normal [facility] Comment on above: Performed By: #### L 500.2500, L100.0100 #### [facility] [address] [place], [address] EST GFR - AA 64 mL/min Normal >60 [facility] Comment on above: Result Comment: Afri can Brune[place] GFR Calc Performed By: #### L 500.2500, L100.0100 #### [facility] [address] [place], [address] GAP 1 Low 5-15 [facility] Comment on above: Performed By: #### L 500.2500, L100.0100 #### [facility] [address] [place], [address] GFR/1.73 sq M.predicted among non-blacks MDRD (S/P/Bld) [Vol rate/Area] 53 mL/min/{1.73_m2} Low >60 [facility] Comment on above: Result Comment: Non- GFR Calc Performed By: #### L 500.2500, L100.0100 #### [facility] [address] [place], [address] Globulin (S) [Mass/Vol] 3.2 g/dL Normal 2.2-4.2 [facility] Comment on above: Performed By: #### L 500.2500, L100.0100 #### [facility] [address] [place], [address] Glucose [Mass/Vol] 176 mg/dL High 74-106 [facility] Comment on above: Result Comment: Fast ing Glucose result greater than or equal to 126 mg/dL suggests DIABETES MELLITUS per A.D.A. criteria. Performed By: #### L 500.2500, L100.0100 #### [facility] [address] [place], [address] Potassium [Moles/Vol] 4.4 mmol/L Normal 3.5-5.1 [facility] Comment on above: Performed By: #### L 500.2500, L100.0100 #### [facility] [address] [place], [address] Sodium [Moles/Vol] 139 mmol/L Normal 136-145 [facility] Comment on above: Performed By: #### L 500.2500, L100.0100 #### [facility] [address] [place], [address] T PROT 6.5 g/dL Normal 6.4-8.2 [facility] Comment on above: Performed By: #### L 500.2500, L100.0100 #### [facility] [address] [place], [address] Urea nitrogen [Mass/Vol] 28 mg/dL High 7-18 [facility] Comment on above: Performed By: #### L 500.2500, L100.0100 #### [facility] [address] [place], [address] Emergency Department Summary on 06-28-2024 Emergency Department Summary [facility] Medical Records Department [address] [place] [address] Emergency Department Summary 06/28/24 MR#: [id number] Acct: [id number] Name: LIZA HANCOCK Rep #: [id number] : 1935 89 From: Nikita Alvarado MD [...] today. She ate earlier without any problem. [facility] Medical History GERD (gastroesophageal reflux disease) [...] QHS cholesterol #30 tabs 12/03/17 01/11/23 Rx [id number]-[id number] acid 0.4 1 ea PO BID supplement [...] pain 06/07/23 Unknown History (Tylenol Extra Strength) [id number]-wxenc se See Rx Instructions PO .COMPLEX 07/02/23 [...] and cl (more content not included)... Normal [facility] Urinalysis, Completeon 06-28 BACTERIA 3+ /hpf Normal None Seen [facility] Comment on above: Order Comment: LUCIA TER SPECIMEN Performed By: #### L 400.0001 #### [facility] [address] [place], [address] EPI,SQUAMOUS 0-5 SEEN Normal 5-10 [facility] Comment on above: Order Comment: LUCIA TER SPECIMEN Performed By: #### L 400.0001 #### [facility] [address] [place], [address] Mucus Ql (Urine sed) 1+ /hpf Normal [facility] Comment on above: Order Comment: LUCIA TER SPECIMEN Performed By: #### L 400.0001 #### [facility] [address] [place], [address] WBC 5-10 SEEN Normal 0-5 [facility] Comment on above: Order Comment: LUCIA TER SPECIMEN Performed By: #### L 400.0001 #### [facility] [address] [place], [address] RBC 0 SEEN Normal 0-5 [facility] Comment on above: Order Comment: LUCIA TER SPECIMEN Performed By: #### L 400.0001 #### [facility] [address] [place], [address] Gastroenterology Visit Repor ton 06-09-2024 Gastroenterology Visit Report [facility] Gastroenterology [address] [address] OFFICE VISIT Date of Service: 06/09/24 MR#: [id number] Acct: [id number] Name: LIZA HANCOCK Rep #: [id number] : 1935 Provider: Hung Adames DO Age/Sex: 89/F Location: [facility] Status: Signed Intake Vital Signs [...] Dbl strand DNA H18 ? CT abd/pel 2.03.07 mild hepatomegaly, normal spleen; diverticulosis; calcified fibroid uterus; pulmonary basilar atelectasis versus scarring. [facility] hospitalization 3.11.05-3.03.07 [facility] ED presentation for change in mental status [...] between Fr (more content not included)... Normal [facility] Culture, urineOrdered By: Bettie Fowler on 09-28-2023 Bacteria identified Cx Nom (U) Klebsiella oxytoca [facility] Absolute lymphocyte countOrd ered By: Nikki Jacques on 06-07-2023 Lymphocytes Auto (Unsp spec) [#/Vol] 2.56 10*3/uL 0.83-4.51 [facility] Basophil percentageOrdered B y: Nikki Jacques on 06-07-2023 Basophils/100 WBC (Bld) 1.1 % 0-1 [facility] Chloride [Moles/Vol] 102 mmol/L 98-107 [facility] Eosinophils/100 WBC (Bld) 4.8 % 0-5 [facility] Glucose [Mass/Vol] 287 mg/dL 74-106 [facility] Comment on above: Glucose result great er than or equal to 200 mg/dLsuggests DIABETES MELLITUS per A.D.A. criteria. Neutrophils (Bld) [#/Vol] 2.8 10*3/uL 2.0-7.7 [facility] Neutrophils/100 WBC (Bld) 43.4 % 47-70 [facility] Potassium [Moles/Vol] 4.1 mmol/L 3.5-5.1 [facility] Sodium [Moles/Vol] 134 mmol/L 136-145 [facility] WBC (Bld) [#/Vol] 6.4 10*3/uL 4.4-11.0 [facility] Blood erythrocytes count (nu mber/volume)Ordered By: Nikki Jacques on 06-07-2023 RBC (Bld) [#/Vol] 3.26 10*6/uL 4.2-5.4 [facility] Blood hemoglobin measurement (mass/volume)Ordered By: Nikki Jacques on 06-07-2023 Hemoglobin (Bld) [Mass/Vol] 9.6 g/dL 12.0-15. 0 [facility] Blood lymphocytes/100 leukoc ytesOrdered By: Nikki Jacques on 06-07-2023 Lymphocytes/100 WBC (Bld) 39.9 % 19-41 [facility] Blood monocytes/100 leukocyt esOrdered By: Nikki Jacques on 06-07-2023 Monocytes/100 WBC (Bld) 10.5 % 0-10 [facility] Blood platelet adequacy dete ction by light microscopyOrdered By: Nikki Jacques on 06-07-2023 Platelets LM Ql (Bld) MOD DEC ADEQ [facility] Blood platelet mean volumeOr dered By: Nikki Jacques on 06-07-2023 Platelet mean volume (Bld) [Entitic vol] 12.1 fL 6.2-12.0 [facility] Determination of erythrocyte mean corpuscular volume (MCV)Ordered By: Nikki Jacques on 06-07-2023 MCV (RBC) [Entitic vol] 90.5 fL 81-99 [facility] Hematocrit Auto (Bld) [Volum e fraction]Ordered By: Nikki Jacques on 06-07-2023 Hematocrit (Bld) [Volume fraction] 29.5 % 37-47 [facility] - Chemistry and C hemistry - challengeOrdered By: Nikki Jacques on 06-07-2023 CO2 [Moles/Vol] 27.0 mmol/L 21.0-32.0 [facility] Urea nitrogen/Creatinine [Mass ratio] 15.7 mg/mg 10-20 [facility] - Hematology and Cell countsOrdered By: Nikki Jacques on 06-07-2023 Erythrocyte distribution width (RBC) [Entitic vol] 44.2 fL 35.1-43.9 [facility] Erythrocyte distribution width (RBC) [Ratio] 13.2 % 11.6-14.6 [facility] Immature granulocytes/100 WBC (Bld) 0.300 % 0.0-0.9 [facility] Comment on above: IG% - Immature Granu locytes (promyelocytes, myelocytes and metamyelocytes) > 1% indicates that a LEFT SHIFT is Present. MCH (RBC) [Entitic mass] 29.4 pg 27.0-32.0 [facility] Nucleated RBC/100 WBC (Bld) [Ratio] 0 % 0-5 [facility] MCHC Auto (RBC) [Mass/Vol]Or dered By: Nikki Jacques on 06-07-2023 MCHC (RBC) [Mass/Vol] 32.5 g/dL 32-36 [facility] No Panel InformationOrdered By: Nikki Jacques on 06-07-2023 Estimated Creatinine Clearance Calc 30.36 ml/min [facility] Estimated GFR (MDRD) Amer 62 mL/min >60 [facility] Comment on above: GFR Calc Estimated GFR (MDRD) Non-Af Amer 51 mL/min >60 [facility] Comment on above: Non- GFR Calc Troponin I High Sensitivity 9 pg/mL 3.0-54.0 [facility] Comment on above: Please Note: New Mesha t Units and Gender Specific Reference Ranges. For more information see Policy Stat Procedure [facility] High Sensitivity Troponin (TNIH) and attachments. Platelets bldOrdered By: Selin Jacques on 06-07-2023 Platelets (Bld) [#/Vol] 77 10*3/uL 150-450 [facility] Serum or plasma calcium beck urement (mass/volume)Ordered By: Nikki Jacques on 06-07-2023 Calcium [Mass/Vol] 8.1 mg/dL 8.5-10.1 [facility] Serum or plasma creatinine m easurement (mass/volume)Ordered By: Nikki Jacques on 06-07-2023 Creatinine [Mass/Vol] 1.08 mg/dL 0.55-1.02 [facility] Comment on above: The validity of the calculated GFR & GFRAA in patients over 70 years has not been determined. Clinical correlation is essential. Serum or plasma urea nitroge n measurement (mass/volume)Ordered By: Nikki Jacques on 06-07-2023 Urea nitrogen [Mass/Vol] 17 mg/dL 7-18 [facility] Thin prep Papanicolaou smear with manual screeningOrdered By: Nikki Jacques on 06-07-2023 Thin prep Papanicolaou smear with manual screening 5 5-15 [facility] Culture, urineOrdered By: Bettie Fowler on 04-27-2023 Bacteria identified Cx Nom (U) Proteus mirabilis [facility] Bacteria identified Cx Nom (U) Escherichia coli [facility] Bacteria identified Cx Nom (U) Proteus mirabilis [facility] Bacteria identified Cx Nom (U) Escherichia coli [facility] Absolute lymphocyte countOrd ered By: Clintno Fowler on 04-25-2023 Lymphocytes Auto (Unsp spec) [#/Vol] 1.81 10*3/uL 0.83-4.51 [facility] Basophil percentageOrdered B y: Clintno Fowler on 04-25-2023 Basophils/100 WBC (Bld) 1.0 % 0-1 [facility] Chloride [Moles/Vol] 101 mmol/L 98-107 [facility] Eosinophils/100 WBC (Bld) 2.2 % 0-5 [facility] Glucose [Mass/Vol] 101 mg/dL 74-106 [facility] Comment on above: Fasting Glucose resu lt from 100 to 125 mg/dL suggests IMPAIRED HOMEOSTASIS per A.D.A. criteria. Neutrophils (Bld) [#/Vol] 5.5 10*3/uL 2.0-7.7 [facility] Neutrophils/100 WBC (Bld) 66.2 % 47-70 [facility] Potassium [Moles/Vol] 4.0 mmol/L 3.5-5.1 [facility] Sodium [Moles/Vol] 133 mmol/L 136-145 [facility] WBC (Bld) [#/Vol] 8.3 10*3/uL 4.4-11.0 [facility] Blood erythrocytes count (nu mber/volume)Ordered By: Clinton Fowler on 04-25-2023 RBC (Bld) [#/Vol] 3.81 10*6/uL 4.2-5.4 [facility] Blood hemoglobin measurement (mass/volume)Ordered By: Clinton Fowler on 04-25-2023 Hemoglobin (Bld) [Mass/Vol] 11.4 g/dL 12.0-15. 0 [facility] Blood lymphocytes/100 leukoc ytesOrdered By: Clinton Fowler on 04-25-2023 Lymphocytes/100 WBC (Bld) 21.8 % 19-41 [facility] Blood monocytes/100 leukocyt esOrdered By: Clinton Fowler on 04-25-2023 Monocytes/100 WBC (Bld) 8.4 % 0-10 [facility] Blood platelet mean volumeOr dered By: Clinton Fowler on 04-25-2023 Platelet mean volume (Bld) [Entitic vol] 10.9 fL 6.2-12.0 [facility] Determination of erythrocyte mean corpuscular volume (MCV)Ordered By: Clinton Fowler on 04-25-2023 MCV (RBC) [Entitic vol] 92.1 fL 81-99 [facility] Hematocrit Auto (Bld) [Volum e fraction]Ordered By: Clinton Fowler on 04-25-2023 Hematocrit (Bld) [Volume fraction] 35.1 % 37-47 [facility] Iron measurement (mass/mass) Ordered By: Clinton Fowler on 04-25-2023 Iron (Unsp spec) [Mass/Mass] 44 ug/dL 50-170 [facility] - Chemistry and C hemistry - challengeOrdered By: Clinton Fowler on 04-25-2023 CO2 [Moles/Vol] 25.0 mmol/L 21.0-32.0 [facility] Urea nitrogen/Creatinine [Mass ratio] 20.4 mg/mg 10-20 [facility] - Hematology and Cell countsOrdered By: Clinton Fowler on 04-25-2023 Erythrocyte distribution width (RBC) [Entitic vol] 42.7 fL 35.1-43.9 [facility] Erythrocyte distribution width (RBC) [Ratio] 12.7 % 11.6-14.6 [facility] Immature granulocytes/100 WBC (Bld) 0.400 % 0.0-0.9 [facility] Comment on above: IG% - Immature Granu locytes (promyelocytes, myelocytes and metamyelocytes) > 1% indicates that a LEFT SHIFT is Present. MCH (RBC) [Entitic mass] 29.9 pg 27.0-32.0 [facility] Nucleated RBC/100 WBC (Bld) [Ratio] 0 % 0-5 [facility] MCHC Auto (RBC) [Mass/Vol]Or dered By: Clinton Fowler on 04-25-2023 MCHC (RBC) [Mass/Vol] 32.5 g/dL 32-36 [facility] No Panel InformationOrdered By: Clinton Fowler on 04-25-2023 Estimated GFR (MDRD) Amer 65 mL/min >60 [facility] Comment on above: GFR Calc Estimated GFR (MDRD) Non-Af Amer 54 mL/min >60 [facility] Comment on above: Non- GFR Calc Platelets bldOrdered By: Brynn Fowler on 04-25-2023 Platelets (Bld) [#/Vol] 251 10*3/uL 150-450 [facility] Serum or plasma calcium beck urement (mass/volume)Ordered By: Clinton Fowler on 04-25-2023 Calcium [Mass/Vol] 9.6 mg/dL 8.5-10.1 [facility] Serum or plasma creatinine m easurement (mass/volume)Ordered By: Clinton Fowler on 04-25-2023 Creatinine [Mass/Vol] 1.03 mg/dL 0.55-1.02 [facility] Comment on above: The validity of the calculated GFR & GFRAA in patients over 70 years has not been determined. Clinical correlation is essential. Serum or plasma ferritin jose carlos surement (mass/volume)Ordered By: Clinton Fowler on 04-25-2023 Ferritin [Mass/Vol] 46 ng/mL 8 [facility] Serum or plasma urea nitroge n measurement (mass/volume)Ordered By: Clinton Fowler on 04-25-2023 Urea nitrogen [Mass/Vol] 21 mg/dL 7-18 [facility] Thin prep Papanicolaou smear with manual screeningOrdered By: Clinton Fowler on 04-25-2023 Thin prep Papanicolaou smear with manual screening 7 5-15 [facility] Absolute lymphocyte countOrd ered By: Clinton Fowler on 01-24-2023 Lymphocytes Auto (Unsp spec) [#/Vol] 2.27 10*3/uL 0.83-4.51 [facility] Basophil percentageOrdered B y: Clinton Fowler on 01-24-2023 Basophils/100 WBC (Bld) 0.9 % 0-1 [facility] Eosinophils/100 WBC (Bld) 2.3 % 0-5 [facility] Neutrophils (Bld) [#/Vol] 3.6 10*3/uL 2.0-7.7 [facility] Neutrophils/100 WBC (Bld) 53.8 % 47-70 [facility] WBC (Bld) [#/Vol] 6.7 10*3/uL 4.4-11.0 [facility] Blood erythrocytes count (nu mber/volume)Ordered By: Clinton Fowler on 01-24-2023 RBC (Bld) [#/Vol] 2.85 10*6/uL 4.2-5.4 [facility] Blood hemoglobin measurement (mass/volume)Ordered By: Clinton Fowler on 01-24-2023 Hemoglobin (Bld) [Mass/Vol] 8.9 g/dL 12.0-15. 0 [facility] Blood lymphocytes/100 leukoc ytesOrdered By: Clinton Fowler on 01-24-2023 Lymphocytes/100 WBC (Bld) 34.1 % 19-41 [facility] Blood monocytes/100 leukocyt esOrdered By: Clinton Fowler on 01-24-2023 Monocytes/100 WBC (Bld) 8.4 % 0-10 [facility] Blood platelet mean volumeOr dered By: Clinton Fowler on 01-24-2023 Platelet mean volume (Bld) [Entitic vol] 10.5 fL 6.2-12.0 [facility] Determination of erythrocyte mean corpuscular volume (MCV)Ordered By: Clinton Fowler on 01-24-2023 MCV (RBC) [Entitic vol] 96.8 fL 81-99 [facility] Hematocrit Auto (Bld) [Volum e fraction]Ordered By: Clinton Fowler on 01-24-2023 Hematocrit (Bld) [Volume fraction] 27.6 % 37-47 [facility] Iron measurement (mass/mass) Ordered By: Clinton Fowler on 01-24-2023 Iron (Unsp spec) [Mass/Mass] 41 ug/dL 50-170 [facility] - Chemistry and C hemistry - challengeOrdered By: Clinton Fowler on 01-24-2023 Cobalamin (Vitamin B12) [Mass/Vol] 1536 pg/mL 211-911 [facility] - Hematology and Cell countsOrdered By: Clinton Fowler on 01-24-2023 Erythrocyte distribution width (RBC) [Entitic vol] 49.1 fL 35.1-43.9 [facility] Erythrocyte distribution width (RBC) [Ratio] 13.9 % 11.6-14.6 [facility] Immature granulocytes/100 WBC (Bld) 0.500 % 0.0-0.9 [facility] Comment on above: IG% - Immature Granu locytes (promyelocytes, myelocytes and metamyelocytes) > 1% indicates that a LEFT SHIFT is Present. MCH (RBC) [Entitic mass] 31.2 pg 27.0-32.0 [facility] Nucleated RBC/100 WBC (Bld) [Ratio] 0 % 0-5 [facility] MCHC Auto (RBC) [Mass/Vol]Or dered By: Clinton Fowler on 01-24-2023 MCHC (RBC) [Mass/Vol] 32.2 g/dL 32-36 [facility] Platelets bldOrdered By: Brynn Fowler on 01-24-2023 Platelets (Bld) [#/Vol] 242 10*3/uL 150-450 [facility] Serum or plasma ferritin jose carlos surement (mass/volume)Ordered By: Clinton Fowler on 01-24-2023 Ferritin [Mass/Vol] 66 ng/mL 8-252 [facility] Absolute lymphocyte countOrd ered By: Sixto Braswell on 01-14-2023 Lymphocytes Auto (Unsp spec) [#/Vol] 2.33 10*3/uL 0.83-4.51 [facility] Basophil percentageOrdered B y: Sixto Braswell on 01-14-2023 Basophils/100 WBC (Bld) 1.3 % 0-1 [facility] Chloride [Moles/Vol] 114 mmol/L 98-107 [facility] Eosinophils/100 WBC (Bld) 3.6 % 0-5 [facility] Glucose [Mass/Vol] 109 mg/dL 74-106 [facility] Comment on above: Fasting Glucose resu lt from 100 to 125 mg/dL suggests IMPAIRED HOMEOSTASIS per A.D.A. criteria. Neutrophils (Bld) [#/Vol] 4.1 10*3/uL 2.0-7.7 [facility] Neutrophils/100 WBC (Bld) 54.5 % 47-70 [facility] Potassium [Moles/Vol] 3.8 mmol/L 3.5-5.1 [facility] Sodium [Moles/Vol] 143 mmol/L 136-145 [facility] WBC (Bld) [#/Vol] 7.5 10*3/uL 4.4-11.0 [facility] Blood erythrocytes count (nu mber/volume)Ordered By: Sixto Braswell on 01-14-2023 RBC (Bld) [#/Vol] 2.89 10*6/uL 4.2-5.4 [facility] Blood hemoglobin measurement (mass/volume)Ordered By: Sixto Braswell on 01-14-2023 Hemoglobin (Bld) [Mass/Vol] 9.3 g/dL 12.0-15. 0 [facility] Blood lymphocytes/100 leukoc ytesOrdered By: Sixto Braswell on 01-14-2023 Lymphocytes/100 WBC (Bld) 31.1 % 19-41 [facility] Blood monocytes/100 leukocyt esOrdered By: Sixto Braswell on 01-14-2023 Monocytes/100 WBC (Bld) 9.1 % 0-10 [facility] Blood platelet mean volumeOr dered By: Sixto Braswell on 01-14-2023 Platelet mean volume (Bld) [Entitic vol] 10.2 fL 6.2-12.0 [facility] Determination of erythrocyte mean corpuscular volume (MCV)Ordered By: Sixto Braswell on 01-14-2023 MCV (RBC) [Entitic vol] 93.1 fL 81-99 [facility] Hematocrit Auto (Bld) [Volum e fraction]Ordered By: Sixto Braswell on 01-14-2023 Hematocrit (Bld) [Volume fraction] 26.9 % 37-47 [facility] Laboratory - Chemistry and C hemistry - challengeOrdered By: Sixto Braswell on 01-14-2023 CO2 [Moles/Vol] 25.0 mmol/L 21.0-32.0 [facility] Urea nitrogen/Creatinine [Mass ratio] 18.1 mg/mg 10-20 [facility] Laboratory - Hematology and Cell countsOrdered By: Sixto Braswell on 01-14-2023 Erythrocyte distribution width (RBC) [Entitic vol] 44.9 fL 35.1-43.9 [facility] Erythrocyte distribution width (RBC) [Ratio] 13.2 % 11.6-14.6 [facility] Immature granulocytes/100 WBC (Bld) 0.400 % 0.0-0.9 [facility] Comment on above: IG% - Immature Granu locytes (promyelocytes, myelocytes and metamyelocytes) > 1% indicates that a LEFT SHIFT is Present. MCH (RBC) [Entitic mass] 31.1 pg 27.0-32.0 [facility] Nucleated RBC/100 WBC (Bld) [Ratio] 0 % 0-5 [facility] [Mass/Vol]Or dered By: Sixto Braswell on 01-14-2023 MCHC (RBC) [Mass/Vol] 33.5 g/dL 32-36 [facility] No Panel InformationOrdered By: Sixto Braswell on 01-14-2023 Estimated Creatinine Clearance Calc 49.62 ml/min [facility] Estimated GFR (MDRD) Amer 78 mL/min >60 [facility] Comment on above: GFR Calc Estimated GFR (MDRD) Non-Af Amer 64 mL/min >60 [facility] Comment on above: Non- GFR Calc Platelets bldOrdered By: Debbie Braswell on 01-14-2023 Platelets (Bld) [#/Vol] 197 10*3/uL 150-450 [facility] Serum or plasma calcium beck urement (mass/volume)Ordered By: Sixto Braswell on 01-14-2023 Calcium [Mass/Vol] 8.6 mg/dL 8.5-10.1 [facility] Serum or plasma creatinine m easurement (mass/volume)Ordered By: Sixto Braswell on 01-14-2023 Creatinine [Mass/Vol] 0.88 mg/dL 0.55-1.02 [facility] Comment on above: The validity of the calculated GFR & GFRAA in patients over 70 years has not been determined. Clinical correlation is essential. Serum or plasma urea nitroge n measurement (mass/volume)Ordered By: Sixto Braswell on 01-14-2023 Urea nitrogen [Mass/Vol] 16 mg/dL 7-18 [facility] Thin prep Papanicolaou smear with manual screeningOrdered By: Sixto Braswell on 01-14-2023 Thin prep Papanicolaou smear with manual screening 4 5-15 [facility] Clostridium difficile detect ion by polymerase chain reactionOrdered By: Isiah Winn on 01-13-2023 C. difficile DNA ANALISA+probe Ql (Unsp spec) [facility] Ova and parasitesOrdered By: Isiah Winn on 01-13-2023 Ova and parasites identified LM Nom (Unsp spec) [facility] Stool enteric pathogen panel by probe and target amplification methodOrdered By: Isiah Winn on 01-13-2023 Gastrointestinal pathogens panel ANALISA+probe (Stl) [facility] Stool lactoferrin detection by immunoassayOrdered By: Isiah Winn on 01-13-2023 Lactoferrin IA Ql (Stl) [facility] Basophil percentageOrdered B y: Isiah Winn on 01-12-2023 Basophil percentage 0-5 SEEN /hpf 0-5 [facility] Bilirubin [Mass/Vol] 0.40 mg/dL 0.20-1.00 [facility] Comment on above: For patients on eltr ombopag therapy, use of [facility] [place] TBIL is not recommended. Protein [Mass/Vol] 5.9 g/dL 6.4-8.2 [facility] Bilirubin Test strip Ql (U)O rdered By: Isiah Winn on 01-12-2023 Bilirubin Ql (U) 1 mg/dL Negative [facility] Comment on above: COLOR OF URINE MAY A FFECT DIPSTICK RESULTS. INR in Blood by Coagulation assayOrdered By: Isiah Winn on 01-12-2023 INR Coag (Bld) [Relative time] 1.1 {INR} [facility] Ketones Test strip Ql (U)Ord ered By: Isiah Winn on 01-12-2023 Ketones Ql (U) Negative Negative [facility] Laboratory - Chemistry and C hemistry - challengeOrdered By: Isiah Winn on 01-12-2023 ALP [Catalytic activity/Vol] 94 U/L 45-117 [facility] ALT [Catalytic activity/Vol] 26 U/L 13-56 [facility] Globulin (S) [Mass/Vol] 3.2 g/dL 2.2-4.2 [facility] Laboratory - CoagulationOrde red By: Isiah Winn on 01-12-2023 aPTT Coag (Bld) [Time] 29.4 s 24.1-36.2 [facility] PT Coag (PPP) [Time] 14.6 s 11.7-14.9 [facility] Mucus LM Ql (Urine sed)Order ed By: Isiah Winn on 01-12-2023 Mucus Ql (Urine sed) 0 SEEN /hpf [facility] Nitrite Test strip Ql (U)Ord ered By: Isiah Winn on 01-12-2023 Nitrite Ql (U) Negative Negative [facility] Protein Test strip Ql (U)Ord ered By: Isiah Winn on 01-12-2023 Protein Ql (U) Negative Negative [facility] Serum or plasma albumin beck urement (mass/volume)Ordered By: Isiah Winn on 01-12-2023 Albumin [Mass/Vol] 2.7 g/dL 3.2-5.0 [facility] Serum or plasma albumin/glob ulin mass ratioOrdered By: Isiah Winn on 01-12-2023 Albumin/Globulin [Mass ratio] 0.8 {ratio} 0.9-2.4 [facility] Squamous epithelial cells de tection in urine sediment by light microscopyOrdered By: Isiah Winn on 01-12-2023 Epithelial cells.squamous LM Ql (Urine sed) 0 SEEN /hpf 5-10 [facility] Thin prep Papanicolaou smear with manual screeningOrdered By: Isiah Winn on 01-12-2023 Thin prep Papanicolaou smear with manual screening 30 U/L 15-37 [facility] Urine blood detectionOrdered By: Isiah Winn on 01-12-2023 RBC Ql (U) Negative Negative [facility] RBC Ql (U) 0 SEEN /hpf 0-5 [facility] Urine clarityOrdered By: Cortez Winn on 01-12-2023 Clarity (U) Clear Clear [facility] Urine color determinationOrd ered By: Isiah Winn on 01-12-2023 Color (U) Yellow Yellow [facility] Urine glucose detectionOrder ed By: Isiah Winn on 01-12-2023 Glucose Ql (U) Normal mg/dl Normal [facility] Urine leukocyte esterase det ection by dipstickOrdered By: Isiah Winn on 01-12-2023 Leukocyte esterase Test strip Ql (U) 25 /ul Negative [facility] Urine pHOrdered By: Isiah Winn on 01-12-2023 pH (U) 5.0 [pH] 5.0 - 8.0 [facility] Urine sediment bacteria coun t by microscopy (number/high power field)Ordered By: Isiah Winn on 01-12-2023 Bacteria LM.HPF (Urine sed) [#/Area] 0 /[HPF] None Seen [facility] Urine specific gravity measu rementOrdered By: Isiah Winn on 01-12-2023 Specific gravity (U) [Rel density] 1.015 1.002-1.030 [facility] Urobilinogen Auto test strip Ql (U)Ordered By: Isiah Winn on 01-12-2023 Urobilinogen Ql (U) Normal mg/dl Normal [facility] Clostridium difficile detect ion by polymerase chain reactionOrdered By: Hung Adames on 10-24-2022 C. difficile DNA ANALISA+probe Ql (Unsp spec) [facility] Stool lactoferrin detection by immunoassayOrdered By: Hung Adames on 10-24-2022 Lactoferrin IA Ql (Stl) [facility] No Panel InformationOrdered By: Hung Adames on 10-23-2022 Miscellaneous Test See comment [facility] Comment on above: TEST RESULT LIMITSSt ool Culture Salmonella/Shigella Screen Result 1 No Salmonella or Shigella recovered. Campylobacter Culture Result 1 No Campylobacter species isolated. E coli Shiga Toxin EIA Negative Negative TESTING PERFORMED AT [facility]. ORIGINAL REPORT ON FILE IN LAB CONTAINS ADDITIONAL TEST SITE INFORMATION. Stool Pancreatic Elastase < 50 >200 [facility] Comment on above: Result Units: ug Jeny st./gResults verified by repeat testing Severe Pancreatic Insufficiency: <100 Moderate Pancreatic Insufficiency: 100 - 200 Normal: >200Performed at: [address] [id number] Director: Hi Hackett MD, Phone: [phone] Giardia Antigen (JIMI) [facility] Stool Calprotectin <16 ug/g 0-120 [facility] Comment on above: Concentration Interp retation Follow-Up<16 - 50 ug/g Normal None>50 -120 ug/g Borderline Re-evaluate in 4-6 weeks >120 ug/g Abnormal Repeat as clinically indicatedPerformed at: [address] [id number] Director: Hi Hackett MD, Phone: [phone] Miscellaneous Test See comment [facility] Comment on above: TEST RESULT LIMITSIB D [...] developed and its performance characteristics determined by [facility]. It has not been cleared or approved by the Food and Drug Administration. The FDA has determined that such clearance or approval is not necessary.Atypical pANCA Negative Negative Comments Pattern is not suggestive of Inflammatory Bowel Disease TESTING PERFORMED AT [facility]. ORIGINAL REPORT ON FILE IN LAB CONTAINS ADDITIONAL TEST SITE INFORMATION. Ova and parasitesOrdered By: Hung Adames on 10-23-2022 Ova and parasites identified LM Nom (Unsp spec) [facility] Laboratory - Microbiology an d Antimicrobial susceptibilityOrdered By: Dr. Thomas on 10-21-2022 Bacteria identified Cx Nom (Bld) [facility] - Microbiology an d Antimicrobial susceptibilityOrdered By: Dr. Thomas on 09-22-2022 Bacteria identified Cx Nom (Bld) No growth in 5 days. [facility] Absolute lymphocyte countOrd ered By: Dr. Verma on 09-20-2022 Lymphocytes Auto (Unsp spec) [#/Vol] 2.55 10*3/uL 0.83-4.51 [facility] Basophil percentageOrdered B y: Dr. Verma on 09-20-2022 Basophils/100 WBC (Bld) 0.7 % 0-1 [facility] Chloride [Moles/Vol] 102 mmol/L 98-107 [facility] Eosinophils/100 WBC (Bld) 1.5 % 0-5 [facility] Glucose [Mass/Vol] 253 mg/dL 74-106 [facility] Comment on above: Glucose result great er than or equal to 200 mg/dLsuggests DIABETES MELLITUS per A.D.A. criteria. Neutrophils (Bld) [#/Vol] 6.8 10*3/uL 2.0-7.7 [facility] Neutrophils/100 WBC (Bld) 63.8 % 47-70 [facility] Potassium [Moles/Vol] 3.6 mmol/L 3.5-5.1 [facility] Sodium [Moles/Vol] 135 mmol/L 136-145 [facility] WBC (Bld) [#/Vol] 10.7 10*3/uL 4.4-11.0 [facility] Blood erythrocytes count (nu mber/volume)Ordered By: Dr. Verma on 09-20-2022 RBC (Bld) [#/Vol] 3.79 10*6/uL 4.2-5.4 [facility] Blood hemoglobin measurement (mass/volume)Ordered By: Dr. Verma on 09-20-2022 Hemoglobin (Bld) [Mass/Vol] 11.3 g/dL 12.0-15. 0 [facility] Blood lymphocytes/100 leukoc ytesOrdered By: Dr. Verma on 09-20-2022 Lymphocytes/100 WBC (Bld) 23.9 % 19-41 [facility] Blood monocytes/100 leukocyt esOrdered By: Dr. Verma on 09-20-2022 Monocytes/100 WBC (Bld) 9.7 % 0-10 [facility] Blood platelet mean volumeOr dered By: Dr. Verma on 09-20-2022 Platelet mean volume (Bld) [Entitic vol] 10.3 fL 6.2-12.0 [facility] Determination of erythrocyte mean corpuscular volume (MCV)Ordered By: Dr. Verma on 09-20-2022 MCV (RBC) [Entitic vol] 90.8 fL 81-99 [facility] Glucose Glucometer (BldC) [M ass/Vol]Ordered By: Dr. Verma on 09-20-2022 Glucose [Mass/Vol] 240 mg/dL 74-106 [facility] Comment on above: MANAGEMENT OF PATIEN T CARE PER NURSING PROTOCOL Hematocrit Auto (Bld) [Volum e fraction]Ordered By: Dr. Verma on 09-20-2022 Hematocrit (Bld) [Volume fraction] 34.4 % 37-47 [facility] Laboratory - Chemistry and C hemistry - challengeOrdered By: Dr. Verma on 09-20-2022 CO2 [Moles/Vol] 25.0 mmol/L 21.0-32.0 [facility] Urea nitrogen/Creatinine [Mass ratio] 21.0 mg/mg 10-20 [facility] - Hematology and Cell countsOrdered By: Dr. Verma on 09-20-2022 Erythrocyte distribution width (RBC) [Entitic vol] 42.7 fL 35.1-43.9 [facility] Erythrocyte distribution width (RBC) [Ratio] 12.8 % 11.6-14.6 [facility] Immature granulocytes/100 WBC (Bld) 0.400 % 0.0-0.9 [facility] Comment on above: IG% - Immature Granu locytes (promyelocytes, myelocytes and metamyelocytes) > 1% indicates that a LEFT SHIFT is Present. MCH (RBC) [Entitic mass] 29.8 pg 27.0-32.0 [facility] Nucleated RBC/100 WBC (Bld) [Ratio] 0 % 0-5 [facility] MCHC Auto (RBC) [Mass/Vol]Or dered By: Dr. Verma on 09-20-2022 MCHC (RBC) [Mass/Vol] 32.8 g/dL 32-36 [facility] No Panel InformationOrdered By: Dr. Verma on 09-20-2022 Estimated Creatinine Clearance Calc 35.22 ml/min [facility] Estimated GFR (MDRD) Amer 53 mL/min >60 [facility] Comment on above: GFR Calc Estimated GFR (MDRD) Non-Af Amer 44 mL/min >60 [facility] Comment on above: Non- GFR Calc Platelets bldOrdered By: Dr. Verma on 09-20-2022 Platelets (Bld) [#/Vol] 237 10*3/uL 150-450 [facility] Serum or plasma calcium beck urement (mass/volume)Ordered By: Dr. Verma on 09-20-2022 Calcium [Mass/Vol] 9.1 mg/dL 8.5-10.1 [facility] Serum or plasma creatinine m easurement (mass/volume)Ordered By: Dr. Verma on 09-20-2022 Creatinine [Mass/Vol] 1.24 mg/dL 0.55-1.02 [facility] Comment on above: The validity of the calculated GFR & GFRAA in patients over 70 years has not been determined. Clinical correlation is essential. Serum or plasma urea nitroge n measurement (mass/volume)Ordered By: Dr. Verma on 09-20-2022 Urea nitrogen [Mass/Vol] 26 mg/dL 7-18 [facility] Thin prep Papanicolaou smear with manual screeningOrdered By: Dr. Verma on 09-20-2022 Thin prep Papanicolaou smear with manual screening 8 5-15 [facility] Basophil percentageOrdered B y: Dr. Verma on 09-19-2022 Cholesterol [Mass/Vol] 114 mg/dL <200 [facility] Comment on above: <200 mg/dL Desirable 200-240 mg/dL Borderline >240 mg/dL High Risk Triglyceride [Mass/Vol] 117 mg/dL <199 [facility] Comment on above: The drugs N-Acetylcy steine and Metamizole may falsely depress this assay.Serum Triglycerides Reference Interval Normal <150 mg/dL Borderline high 150 - 199 mg/dL High 200 - 499 mg/dL Very High > or = 500 mg/dL Serum or plasma cholesterol in HDL measurement (mass/volume)Ordered By: Dr. Verma on 09-19-2022 Cholesterol in HDL [Mass/Vol] 41 mg/dL >40 [facility] Comment on above: The drugs N-Acetylcy steine and Metamizole may falsely depress this assay. Reference Range HDL <40 mg/dL Low HDL Cholesterol HDL >or= 60 mg/dL High HDL Cholesterol Serum or plasma cholesterol in VLDL measurement (mass/volume)Ordered By: Dr. Verma on 09-19-2022 Cholesterol in VLDL [Mass/Vol] 23 mg/dL 5-40 [facility] Serum or plasma low density lipoprotein (LDL) cholesterol measurement (mass/volume)Ordered By: Dr. Verma on 09-19-2022 Cholesterol in LDL [Mass/Vol] 50 mg/dL 0-130 [facility] Basophil percentageOrdered B y: Dr. Chawla on 09-18-2022 Bilirubin [Mass/Vol] 0.50 mg/dL 0.20-1.00 [facility] Comment on above: For patients on eltr ombopag therapy, use of [facility] [place] TBIL is not recommended. Protein [Mass/Vol] 6.1 g/dL 6.4-8.2 [facility] Culture, urineOrdered By: Dr Edmond Thomas on 09-18-2022 Bacteria identified Cx Nom (U) Escherichia coli [facility] Laboratory - Chemistry and C hemistry - challengeOrdered By: Dr. Chawla on 09-18-2022 ALP [Catalytic activity/Vol] 104 U/L 45-117 [facility] ALT [Catalytic activity/Vol] 26 U/L 13-56 [facility] Globulin (S) [Mass/Vol] 3.4 g/dL 2.2-4.2 [facility] Serum or plasma albumin beck urement (mass/volume)Ordered By: Dr. Chawla on 09-18-2022 Albumin [Mass/Vol] 2.7 g/dL 3.2-5.0 [facility] Serum or plasma albumin/glob ulin mass ratioOrdered By: Dr. Chawla on 09-18-2022 Albumin/Globulin [Mass ratio] 0.8 {ratio} 0.9-2.4 [facility] Thin prep Papanicolaou smear with manual screeningOrdered By: Dr. Chawla on 09-18-2022 Thin prep Papanicolaou smear with manual screening 25 U/L 15-37 [facility] Basophil percentageOrdered B y: Dr. Buckner on 09-17-2022 Basophil percentage 3.5 mg/dL 2.5-4.9 [facility] Erythrocyte sedimentation ra teOrdered By: Dr. Chawla on 09-17-2022 ESR (Bld) [Velocity] 5 mm/h 0-30 [facility] Laboratory - Chemistry and C hemistry - challengeOrdered By: Dr. Buckner on 09-17-2022 Magnesium [Mass/Vol] 1.6 mg/dL 1.6-2.6 [facility] Serum or plasma C reactive p rotein measurement (mass/volume)Ordered By: Dr. Chawla on 09-17-2022 CRP [Mass/Vol] mg/L 0.0-3.0 [facility] Comment on above: C-Reactive Protein ( CRP) provides useful information for thediagnosis, therapy and monitoring of inflammatory processesand associated diseases. For the evaluation of Relative Riskfor Cardiovascular Disease, a High Sensitivity CRP (HSCRP)should be ordered. Serum procalcitonin measurem entOrdered By: Dr. Chawla on 09-17-2022 Procalcitonin [Mass/Vol] ng/mL 0.00-0.09 [facility] Comment on above: A procalcitonin (PCT [...] Auto (Unsp spec) [#/Vol] 2.26 10*3/uL 0.83-4.51 [facility] Basophil percentageOrdered B y: Dr. Thomas on 09-16-2022 Basophil percentage 0 SEEN /hpf 0-5 [facility] Basophils/100 WBC (Bld) 0.9 % 0-1 [facility] Bilirubin [Mass/Vol] 0.40 mg/dL 0.20-1.00 [facility] Comment on above: For patients on eltr ombopag therapy, use of [facility] [place] TBIL is not recommended. Chloride [Moles/Vol] 101 mmol/L 98-107 [facility] Eosinophils/100 WBC (Bld) 1.9 % 0-5 [facility] Glucose [Mass/Vol] 337 mg/dL 74-106 [facility] Comment on above: Glucose result great er than or equal to 200 mg/dLsuggests DIABETES MELLITUS per A.D.A. criteria. Lactate [Moles/Vol] 1.9 mmol/L 0.4-2.0 [facility] Neutrophils (Bld) [#/Vol] 4.3 10*3/uL 2.0-7.7 [facility] Neutrophils/100 WBC (Bld) 57.8 % 47-70 [facility] Potassium [Moles/Vol] 4.3 mmol/L 3.5-5.1 [facility] Protein [Mass/Vol] 6.3 g/dL 6.4-8.2 [facility] Sodium [Moles/Vol] 135 mmol/L 136-145 [facility] WBC (Bld) [#/Vol] 7.5 10*3/uL 4.4-11.0 [facility] Bilirubin Test strip Ql (U)O rdered By: Dr. Thomas on 09-16-2022 Bilirubin Ql (U) Negative Negative [facility] Blood erythrocytes count (nu mber/volume)Ordered By: Dr. Thomas on 09-16-2022 RBC (Bld) [#/Vol] 3.66 10*6/uL 4.2-5.4 [facility] Blood hemoglobin measurement (mass/volume)Ordered By: Dr. Thomas on 09-16-2022 Hemoglobin (Bld) [Mass/Vol] 11.0 g/dL 12.0-15. 0 [facility] Blood lymphocytes/100 leukoc ytesOrdered By: Dr. Thomas on 09-16-2022 Lymphocytes/100 WBC (Bld) 30.3 % 19-41 [facility] Blood monocytes/100 leukocyt esOrdered By: Dr. Thomas on 09-16-2022 Monocytes/100 WBC (Bld) 8.6 % 0-10 [facility] Blood platelet mean volumeOr dered By: Dr. Thomas on 09-16-2022 Platelet mean volume (Bld) [Entitic vol] 10.1 fL 6.2-12.0 [facility] Culture, urineOrdered By: Julian Thomas on 09-16-2022 Bacteria identified Cx Nom (U) Escherichia coli [facility] Determination of erythrocyte mean corpuscular volume (MCV)Ordered By: Dr. Thomas on 09-16-2022 MCV (RBC) [Entitic vol] 95.6 fL 81-99 [facility] Hematocrit Auto (Bld) [Volum e fraction]Ordered By: Dr. Thomas on 09-16-2022 Hematocrit (Bld) [Volume fraction] 35.0 % 37-47 [facility] INR in Blood by Coagulation assayOrdered By: Dr. Thomas on 09-16-2022 INR Coag (Bld) [Relative time] 1.1 {INR} [facility] Ketones Test strip Ql (U)Ord ered By: Dr. Thomas on 09-16-2022 Ketones Ql (U) Negative Negative [facility] Laboratory - Chemistry and C hemistry - challengeOrdered By: Dr. Buckner on 09-16-2022 Cobalamin (Vitamin B12) [Mass/Vol] 999 pg/mL 211-911 [facility] Laboratory - Chemistry and C hemistry - challengeOrdered By: Dr. Thomas on 09-16-2022 ALP [Catalytic activity/Vol] 100 U/L 45-117 [facility] ALT [Catalytic activity/Vol] 25 U/L 13-56 [facility] CO2 [Moles/Vol] 28.0 mmol/L 21.0-32.0 [facility] Globulin (S) [Mass/Vol] 3.3 g/dL 2.2-4.2 [facility] Urea nitrogen/Creatinine [Mass ratio] 15.3 mg/mg 10-20 [facility] Laboratory - CoagulationOrde red By: Dr. Thomas on 09-16-2022 PT Coag (PPP) [Time] 13.6 s 11.7-14.9 [facility] Laboratory - Hematology and Cell countsOrdered By: Dr. Thomas on 09-16-2022 Erythrocyte distribution width (RBC) [Entitic vol] 44.8 fL 35.1-43.9 [facility] Erythrocyte distribution width (RBC) [Ratio] 12.8 % 11.6-14.6 [facility] Immature granulocytes/100 WBC (Bld) 0.500 % 0.0-0.9 [facility] Comment on above: IG% - Immature Granu locytes (promyelocytes, myelocytes and metamyelocytes) > 1% indicates that a LEFT SHIFT is Present. MCH (RBC) [Entitic mass] 30.1 pg 27.0-32.0 [facility] Nucleated RBC/100 WBC (Bld) [Ratio] 0 % 0-5 [facility] Laboratory - Microbiology an d Antimicrobial susceptibilityOrdered By: Moncho Thomas on 09-16-2022 Bacteria identified Cx Nom (Bld) [facility] Bacteria identified Cx Nom (Bld) No growth in 5 days. [facility] MCHC Auto (RBC) [Mass/Vol]Or dered By: Dr. Thomas on 09-16-2022 MCHC (RBC) [Mass/Vol] 31.4 g/dL 32-36 [facility] Mucus LM Ql (Urine sed)Order ed By: Dr. Thomas on 09-16-2022 Mucus Ql (Urine sed) 0 SEEN /hpf [facility] Nitrite Test strip Ql (U)Ord ered By: Dr. Thomas on 09-16-2022 Nitrite Ql (U) Positive Negative [facility] No Panel InformationOrdered By: Dr. Thomas on 09-16-2022 Estimated Creatinine Clearance Calc 33.28 ml/min [facility] Estimated GFR (MDRD) Amer 56 mL/min >60 [facility] Comment on above: GFR Calc Estimated GFR (MDRD) Non-Af Amer 46 mL/min >60 [facility] Comment on above: Non- GFR Calc No Panel InformationOrdered By: Dr. Buckner on 09-16-2022 Thyroid Stimulating Hormone (TSH) 2.42 uIU/mL 0.358-3.74 [facility] Platelets bldOrdered By: Dr. Thomas on 09-16-2022 Platelets (Bld) [#/Vol] 248 10*3/uL 150-450 [facility] Protein Test strip Ql (U)Ord ered By: Dr. Thomas on 09-16-2022 Protein Ql (U) Negative Negative [facility] Serum or plasma acetone beck urement (mass/volume)Ordered By: Dr. Thomas on 09-16-2022 Acetone [Mass/Vol] Negative NEG [facility] Serum or plasma albumin beck urement (mass/volume)Ordered By: Dr. Thomas on 09-16-2022 Albumin [Mass/Vol] 3.0 g/dL 3.2-5.0 [facility] Serum or plasma albumin/glob ulin mass ratioOrdered By: Dr. Thomas on 09-16-2022 Albumin/Globulin [Mass ratio] 0.9 {ratio} 0.9-2.4 [facility] Serum or plasma calcium beck urement (mass/volume)Ordered By: Dr. Thomas on 09-16-2022 Calcium [Mass/Vol] 9.0 mg/dL 8.5-10.1 [facility] Serum or plasma creatinine m easurement (mass/volume)Ordered By: Dr. Thomas on 09-16-2022 Creatinine [Mass/Vol] 1.18 mg/dL 0.55-1.02 [facility] Comment on above: The validity of the calculated GFR & GFRAA in patients over 70 years has not been determined. Clinical correlation is essential. Serum or plasma folate measu rement (mass/volume)Ordered By: Dr. Buckner on 09-16-2022 Folate [Mass/Vol] 40.40 ng/mL 3.1-55.4 [facility] Serum or plasma urea nitroge n measurement (mass/volume)Ordered By: Dr. Thomas on 09-16-2022 Urea nitrogen [Mass/Vol] 18 mg/dL 7-18 [facility] Squamous epithelial cells de tection in urine sediment by light microscopyOrdered By: Dr. Thomas on 09-16-2022 Epithelial cells.squamous LM Ql (Urine sed) 0 SEEN /hpf 5-10 [facility] Thin prep Papanicolaou smear with manual screeningOrdered By: Dr. Thomas on 09-16-2022 Thin prep Papanicolaou smear with manual screening 24 U/L 15-37 [facility] Thin prep Papanicolaou smear with manual screening 6 5-15 [facility] Urine blood detectionOrdered By: Dr. Thomas on 09-16-2022 RBC Ql (U) Negative Negative [facility] RBC Ql (U) 0 SEEN /hpf 0-5 [facility] Urine clarityOrdered By: Dr. Thomas on 09-16-2022 Clarity (U) Clear Clear [facility] Urine color determinationOrd ered By: Dr. Thomas on 09-16-2022 Color (U) Yellow Yellow [facility] Urine glucose detectionOrder ed By: Dr. Thomas on 09-16-2022 Glucose Ql (U) 1000 mg/dl Normal [facility] Urine leukocyte esterase det ection by dipstickOrdered By: Dr. Thomas on 09-16-2022 Leukocyte esterase Test strip Ql (U) Negative Negative [facility] Urine pHOrdered By: Dr. Azeb marcos on 09-16-2022 pH (U) 5.0 [pH] 5.0 - 8.0 [facility] Urine sediment bacteria coun t by microscopy (number/high power field)Ordered By: Dr. Thomas on 09-16-2022 Bacteria LM.HPF (Urine sed) [#/Area] 1 /[HPF] None Seen [facility] Urine specific gravity measu rementOrdered By: Dr. Thomas on 09-16-2022 Specific gravity (U) [Rel density] 1.015 1.002-1.030 [facility] Urobilinogen Auto test strip Ql (U)Ordered By: Dr. Thomas on 09-16-2022 Urobilinogen Ql (U) Normal mg/dl Normal [facility] No Panel InformationOrdered By: Hung Adames on 08-19-2022 Giardia Antigen (JIMI) [facility] Ova and parasitesOrdered By: Hung Adames on 08-19-2022 Ova and parasites identified LM Nom (Unsp spec) [facility] No Panel InformationOrdered By: Hung Adames on 08-13-2022 Stool Pancreatic Elastase 75 >200 [facility] Comment on above: Result Units: ug Jeny st./gResults verified by repeat testing Severe Pancreatic Insufficiency: <100 Moderate Pancreatic Insufficiency: 100 - 200 Normal: >200Performed at: [address] [id number] Director: Hi Hackett MD, Phone: [phone] Stool Calprotectin 423 ug/g 0-120 [facility] Comment on above: Concentration Interp retation Follow-Up<16 - 50 ug/g Normal None>50 -120 ug/g Borderline Re-evaluate in 4-6 weeks >120 ug/g Abnormal Repeat as clinically indicatedPerformed at: - [facility] [id number] Director: Kishor Sears PhD, Phone: [phone] at: [facility] [id number] Director: Hi Hackett MD, Phone: [phone] Stool Neutral Fats Normal . [facility] Comment on above: Normal (<60 Droplets /HPF) Qualitative fecal fat or lip idsOrdered By: Hung Adames on 08-13-2022 Fat Ql (Stl) Increased . [facility] Comment on above: Normal (<100 Droplet s/HPF) EP PanelOrdered By: Hung Adames on 08-11-2022 Gastrointestinal pathogens panel ANALISA+probe (Stl) [facility] Stool gastrointestinal hemog lobin detection by immunologic methodOrdered By: Hung Adames on 08-11-2022 Lower GI hemoglobin IA Ql (Stl) [facility] Stool lactoferrin detection by immunoassayOrdered By: Hung dAames on 08-11-2022 Lactoferrin IA Ql (Stl) [facility] Absolute lymphocyte countOrd ered By: Hung Adames on 08-10-2022 Lymphocytes Auto (Unsp spec) [#/Vol] 1.79 10*3/uL 0.83-4.51 [facility] Albumin Elph [Mass/Vol]Order ed By: Hung Adames on 08-10-2022 Albumin [Mass/Vol] 2.9 g/dL 2.9-4.4 [facility] Atypical perinuclear antineu trophil cytoplasmic antibodies measurementOrdered By: Hung Adames on 08-10-2022 Neutrophil cytoplasmic Ab.perinuclear.atypical IF (S) [Titer] <1:20 titer Neg:<1:20 [facility] Comment on above: The atypical pANCA p attern has been observed in asignificant percentage of patients with ulcerative colitis,primary sclerosing cholangitis and autoimmune hepatitis. Basophil percentageOrdered B y: Hung Adames on 08-10-2022 Basophil percentage 0.6 AI 0.0-0.9 [facility] Basophil percentage < 0.2 AI 0.0-0.9 [facility] Basophils/100 WBC (Bld) 0.6 % 0-1 [facility] Bilirubin [Mass/Vol] 0.40 mg/dL 0.20-1.00 [facility] Comment on above: For patients on eltr ombopag therapy, use of Dimension [facility] TBIL is not recommended. Chloride [Moles/Vol] 105 mmol/L 98-107 [facility] Eosinophils/100 WBC (Bld) 2.7 % 0-5 [facility] Glucose [Mass/Vol] 306 mg/dL 74-106 [facility] Comment on above: Glucose result great er than or equal to 200 mg/dLsuggests DIABETES MELLITUS per A.D.A. criteria. LDH [Catalytic activity/Vol] 205 U/L 84-246 [facility] Neutrophils (Bld) [#/Vol] 4.5 10*3/uL 2.0-7.7 [facility] Neutrophils/100 WBC (Bld) 62.6 % 47-70 [facility] Potassium [Moles/Vol] 4.1 mmol/L 3.5-5.1 [facility] Protein [Mass/Vol] 5.8 g/dL 6.4-8.2 [facility] Sodium [Moles/Vol] 140 mmol/L 136-145 [facility] WBC (Bld) [#/Vol] 7.1 10*3/uL 4.4-11.0 [facility] Blood erythrocytes count (nu mber/volume)Ordered By: Hung Adames on 08-10-2022 RBC (Bld) [#/Vol] 3.40 10*6/uL 4.2-5.4 [facility] Blood hemoglobin measurement (mass/volume)Ordered By: Hung Adames on 08-10-2022 Hemoglobin (Bld) [Mass/Vol] 10.1 g/dL 12.0-15. 0 [facility] Blood lymphocytes/100 leukoc ytesOrdered By: Hung Adames on 08-10-2022 Lymphocytes/100 WBC (Bld) 25.1 % 19-41 [facility] Blood monocytes/100 leukocyt esOrdered By: Hung Adames on 08-10-2022 Monocytes/100 WBC (Bld) 8.6 % 0-10 [facility] Blood platelet mean volumeOr dered By: Hung Adames on 08-10-2022 Platelet mean volume (Bld) [Entitic vol] 9.8 fL 6.2-12.0 [facility] Determination of erythrocyte mean corpuscular volume (MCV)Ordered By: Hung Adames on 08-10-2022 MCV (RBC) [Entitic vol] 94.1 fL 81-99 [facility] Erythrocyte sedimentation ra teOrdered By: Hung Adames on 08-10-2022 ESR (Bld) [Velocity] 2 mm/h 0-30 [facility] Hematocrit Auto (Bld) [Volum e fraction]Ordered By: Hung Adames on 08-10-2022 Hematocrit (Bld) [Volume fraction] 32.0 % 37-47 [facility] INR in Blood by Coagulation assayOrdered By: Hung Adames on 08-10-2022 INR Coag (Bld) [Relative time] 1.1 {INR} [facility] Interpretation of serum or p lasma protein pattern by immunofixation (narrative resultOrdered By: Hung Adames on 08-10-2022 Protein Fractions Immunofixation [place] [Interp] See comment [facility] Comment on above: Result: Not Observed Laboratory - Chemistry and C hemistry - challengeOrdered By: Hung Adames on 08-10-2022 ALP [Catalytic activity/Vol] 96 U/L 45-117 [facility] ALT [Catalytic activity/Vol] 27 U/L 13-56 [facility] CO2 [Moles/Vol] 26.0 mmol/L 21.0-32.0 [facility] Free T4 [Mass/Vol] 0.97 ng/dL 0.76-1.46 [facility] Urea nitrogen/Creatinine [Mass ratio] 13.9 mg/mg 10-20 [facility] Laboratory - CoagulationOrde red By: Hung Adames on 08-10-2022 PT Coag (PPP) [Time] 14.0 s 11.7-14.9 [facility] Laboratory - Hematology and Cell countsOrdered By: Hung Adames on 08-10-2022 Erythrocyte distribution width (RBC) [Entitic vol] 46.5 fL 35.1-43.9 [facility] Erythrocyte distribution width (RBC) [Ratio] 13.6 % 11.6-14.6 [facility] Immature granulocytes/100 WBC (Bld) 0.400 % 0.0-0.9 [facility] Comment on above: IG% - Immature Granu locytes (promyelocytes, myelocytes and metamyelocytes) > 1% indicates that a LEFT SHIFT is Present. MCH (RBC) [Entitic mass] 29.7 pg 27.0-32.0 [facility] Nucleated RBC/100 WBC (Bld) [Ratio] 0 % 0-5 [facility] MCHC Auto (RBC) [Mass/Vol]Or dered By: Hung Adames on 08-10-2022 MCHC (RBC) [Mass/Vol] 31.6 g/dL 32-36 [facility] No Panel InformationOrdered By: Hung Adames on 08-10-2022 Addendum Document Comment . [facility] Comment on above: Protein electrophore sis scan will follow via computer,mail, or boarder machine delivery. Centromere B Antibody <0.2 AI 0.0-0.9 [facility] Endomysial IgA Antibody Negative Negative [facility] Estimated GFR (MDRD) Amer 54 mL/min >60 [facility] Comment on above: GFR Calc Estimated GFR (MDRD) Non-Af Amer 44 mL/min >60 [facility] Comment on above: Non- GFR Calc Free Triiodothyronine (T3) pg/dL 1.6 pg/mL 2.18-3.98 [facility] Immunoglobulin E 20 IU/mL 6-495 [facility] Comment on above: Performed at: [facility] [address] [id number] Director: Kishor Sears PhD, Phone: [phone] at: - [facility] [address] [id number] Director: Hi Hackett MD, Phone: [phone] IT CONSULTING DIRECTOR Antibody <0.2 AI 0.0-0.9 [facility] Thyroid Stimulating Hormone (TSH) 2.56 uIU/mL 0.358-3.74 [facility] Platelets bldOrdered By: Rupert Adames on 08-10-2022 Platelets (Bld) [#/Vol] 211 10*3/uL 150-450 [facility] Serum DNA double strand anti body assay (units/volume)Ordered By: Hung Adames on 08-10-2022 DNA double strand Ab Qn (S) 18 [IU]/mL 0-9 [facility] Comment on above: Negative <5 Equivoca l 5 - 9 Positive >9 Serum Lolly-1 antibody assay (u nits/volume)Ordered By: Hung Adames on 08-10-2022 Lolly-1 extractable nuclear Ab Qn (S) <0.2 AI 0.0-0.9 [facility] Serum Scl-70 extractable nuc lear antibody assay (units/volume)Ordered By: Hung Adames on 08-10-2022 SCL-70 extractable nuclear Ab Qn (S) <0.2 AI 0.0-0.9 [facility] Serum [place] extractable nucl ear antibody detectionOrdered By: Hung Adames on 08-10-2022 [place] extractable nuclear Ab Ql (S) <0.2 AI 0.0-0.9 [facility] Serum [id number] measu rement by electrophoresisOrdered By: Hung Adames on 08-10-2022 Alpha 1 globulin Elph [Mass/Vol] 0.2 g/dL 0.0-0.4 [facility] Alpha 1 globulin Elph [Mass/Vol] 0.7 g/dL 0.4-1.0 [facility] Serum classic neutrophil cyt oplasmic antibody assay (units/volume)Ordered By: Hung Adames on 08-10-2022 Neutrophil cytoplasmic Ab.classic Qn (S) <1:20 titer Neg:<1:20 [facility] Serum globulin measurement ( mass/volume)Ordered By: Hung Adames on 08-10-2022 Globulin (S) [Mass/Vol] 2.7 g/dL 2.2-3.9 [facility] Serum or plasma C reactive p rotein measurement (mass/volume)Ordered By: Hung Adames on 08-10-2022 CRP [Mass/Vol] mg/L 0.0-3.0 [facility] Comment on above: C-Reactive Protein ( CRP) provides useful information for thediagnosis, therapy and monitoring of inflammatory processesand associated diseases. For the evaluation of Relative Riskfor Cardiovascular Disease, a High Sensitivity CRP (HSCRP)should be ordered. Serum or plasma IgA measurem ent (mass/volume)Ordered By: Hung Adames on 08-10-2022 IgA [Mass/Vol] 294 mg/dL 64-422 [facility] Serum or plasma IgG measurem ent (mass/volume)Ordered By: Hung Adames on 08-10-2022 IgG [Mass/Vol] 991 mg/dL 586-1602 [facility] Serum or plasma IgM measurem ent (mass/volume)Ordered By: Hung Adames on 08-10-2022 IgM [Mass/Vol] 64 mg/dL 26-217 [facility] Serum or plasma albumin beck urement (mass/volume)Ordered By: Hung Adames on 08-10-2022 Albumin [Mass/Vol] 2.6 g/dL 3.2-5.0 [facility] Serum or plasma albumin/glob ulin mass ratioOrdered By: Hung Adames on 08-10-2022 Albumin/Globulin [Mass ratio] 0.8 {ratio} 0.9-2.4 [facility] Serum or plasma beta globuli n measurement by electrophoresis (mass/volume)Ordered By: Hung Adames on 08-10-2022 Beta globulin Elph [Mass/Vol] 0.8 g/dL 0.7-1.3 [facility] Serum or plasma calcium beck urement (mass/volume)Ordered By: Hung Adames on 08-10-2022 Calcium [Mass/Vol] 8.4 mg/dL 8.5-10.1 [facility] Serum or plasma creatinine m easurement (mass/volume)Ordered By: Hung Adames on 08-10-2022 Creatinine [Mass/Vol] 1.22 mg/dL 0.55-1.02 [facility] Comment on above: The validity of the calculated GFR & GFRAA in patients over 70 years has not been determined. Clinical correlation is essential. Serum or plasma ferritin jose carlos surement (mass/volume)Ordered By: Hung Adames on 08-10-2022 Ferritin [Mass/Vol] 57 ng/mL 8-252 [facility] Serum or plasma gamma globul in measurement by electrophoresis (mass/volume)Ordered By: Hung Adames on 08-10-2022 Gamma globulin Elph [Mass/Vol] 1.0 g/dL 0.4-1.8 [facility] Serum or plasma immunoelectr ophoresis interpretation (nominal result)Ordered By: Hung Adames on 08-10-2022 Interpretation IEP [Interp] Comment . [facility] Comment on above: No monoclonality det ected. Serum or plasma urea nitroge n measurement (mass/volume)Ordered By: Hung Adames on 08-10-2022 Urea nitrogen [Mass/Vol] 17 mg/dL 7-18 [facility] Serum perinuclear neutrophil cytoplasmic antibody titer by immunofluorescenceOrdered By: Hung Adames on 08-10-2022 Neutrophil cytoplasmic Ab.perinuclear IF (S) [Titer] <1:20 titer Neg:<1:20 [facility] Comment on above: The presence of posi tive fluorescence exhibiting P-ANCA orC-ANCA patterns alone is not specific for the diagnosis ofWegener's Granulomatosis (WG) or microscopic polyangiitis.Decisions about treatment should not be based solely onANCA IFA results. The [employer] ANCA Group Consensusrecommends follow up testing of positive sera with both AR-3 and MPO-ANCA enzyme immunoassays. As many as 5% serumsamples are positive only by EIA. Ref. AM J Clin Abdasm1898;111:507-513. Serum tissue transglutaminas e IgA antibody assay (units/volume)Ordered By: Hung Adames on 08-10-2022 tTG IgA Qn (S) <2 U/mL 0-3 [facility] Comment on above: Negative 0 [...] smear with manual screening 26 U/L 15-37 [facility] Thin prep Papanicolaou smear with manual screening 9 5-15 [facility] Thin prep Papanicolaou smear with manual screening 1.1 0.7-1.7 [facility] Total protein bloodOrdered B y: Hung Adames on 08-10-2022 Protein [Mass/Vol] 5.6 g/dL 6.0-8.5 [facility] Culture, urineOrdered By: Dr Edmond Lauren on 06-17-2022 Bacteria identified Cx Nom (U) Klebsiella aerogenes [facility] Absolute lymphocyte countOrd ered By: Dr. Verma on 06-16-2022 Lymphocytes Auto (Unsp spec) [#/Vol] 1.80 10*3/uL 0.83-4.51 [facility] Basophil percentageOrdered B y: Dr. Verma on 06-16-2022 Basophils/100 WBC (Bld) 0.7 % 0-1 [facility] Chloride [Moles/Vol] 103 mmol/L 98-107 [facility] Eosinophils/100 WBC (Bld) 5.6 % 0-5 [facility] Glucose [Mass/Vol] 84 mg/dL 74-106 [facility] Neutrophils (Bld) [#/Vol] 5.2 10*3/uL 2.0-7.7 [facility] Neutrophils/100 WBC (Bld) 61.5 % 47-70 [facility] Potassium [Moles/Vol] 4.3 mmol/L 3.5-5.1 [facility] Sodium [Moles/Vol] 135 mmol/L 136-145 [facility] WBC (Bld) [#/Vol] 8.4 10*3/uL 4.4-11.0 [facility] Blood erythrocytes count (nu mber/volume)Ordered By: Dr. Verma on 06-16-2022 RBC (Bld) [#/Vol] 3.07 10*6/uL 4.2-5.4 [facility] Blood hemoglobin measurement (mass/volume)Ordered By: Dr. Verma on 06-16-2022 Hemoglobin (Bld) [Mass/Vol] 9.1 g/dL 12.0-15. 0 [facility] Blood lymphocytes/100 leukoc ytesOrdered By: Dr. Verma on 06-16-2022 Lymphocytes/100 WBC (Bld) 21.4 % 19-41 [facility] Blood monocytes/100 leukocyt esOrdered By: Dr. Verma on 06-16-2022 Monocytes/100 WBC (Bld) 10.2 % 0-10 [facility] Blood platelet mean volumeOr dered By: Dr. Verma on 06-16-2022 Platelet mean volume (Bld) [Entitic vol] 9.9 fL 6.2-12.0 [facility] Determination of erythrocyte mean corpuscular volume (MCV)Ordered By: Dr. Verma on 06-16-2022 MCV (RBC) [Entitic vol] 92.2 fL 81-99 [facility] Glucose Glucometer (dC) [M ass/Vol]Ordered By: Dr. Verma on 06-16-2022 Glucose [Mass/Vol] 185 mg/dL 74-106 [facility] Comment on above: MANAGEMENT OF PATIEN T CARE PER NURSING PROTOCOL Hematocrit Auto (Bld) [Volum e fraction]Ordered By: Dr. Verma on 06-16-2022 Hematocrit (Bld) [Volume fraction] 28.3 % 37-47 [facility] Laboratory - Chemistry and C hemistry - challengeOrdered By: Dr. Verma on 06-16-2022 CO2 [Moles/Vol] 27.0 mmol/L 21.0-32.0 [facility] Urea nitrogen/Creatinine [Mass ratio] 14.5 mg/mg 10-20 [facility] Laboratory - Hematology and Cell countsOrdered By: Dr. Verma on 06-16-2022 Erythrocyte distribution width (RBC) [Entitic vol] 46.6 fL 35.1-43.9 [facility] Erythrocyte distribution width (RBC) [Ratio] 13.8 % 11.6-14.6 [facility] Immature granulocytes/100 WBC (Bld) 0.600 % 0.0-0.9 [facility] Comment on above: IG% - Immature Granu locytes (promyelocytes, myelocytes and metamyelocytes) > 1% indicates that a LEFT SHIFT is Present. MCH (RBC) [Entitic mass] 29.6 pg 27.0-32.0 [facility] Nucleated RBC/100 WBC (Bld) [Ratio] 0 % 0-5 [facility] MCHC Auto (RBC) [Mass/Vol]Or dered By: Dr. Verma on 06-16-2022 MCHC (RBC) [Mass/Vol] 32.2 g/dL 32-36 [facility] No Panel InformationOrdered By: Dr. Verma on 06-16-2022 Estimated Creatinine Clearance Calc 40.91 ml/min [facility] Estimated GFR (MDRD) Amer 71 mL/min >60 [facility] Comment on above: GFR Calc Estimated GFR (MDRD) Non-Af Amer 58 mL/min >60 [facility] Comment on above: Non- GFR Calc Platelets bldOrdered By: Dr. Verma on 06-16-2022 Platelets (Bld) [#/Vol] 203 10*3/uL 150-450 [facility] Serum or plasma calcium beck urement (mass/volume)Ordered By: Dr. Verma on 06-16-2022 Calcium [Mass/Vol] 8.3 mg/dL 8.5-10.1 [facility] Serum or plasma creatinine m easurement (mass/volume)Ordered By: Dr. Verma on 06-16-2022 Creatinine [Mass/Vol] 0.96 mg/dL 0.55-1.02 [facility] Comment on above: The validity of the calculated GFR & GFRAA in patients over 70 years has not been determined. Clinical correlation is essential. Serum or plasma urea nitroge n measurement (mass/volume)Ordered By: Dr. Verma on 06-16-2022 Urea nitrogen [Mass/Vol] 14 mg/dL 7-18 [facility] Thin prep Papanicolaou smear with manual screeningOrdered By: Dr. Verma on 06-16-2022 Thin prep Papanicolaou smear with manual screening 5 5-15 [facility] Basophil percentageOrdered B y: Dr. Paredes on 06-15-2022 Cholesterol [Mass/Vol] 91 mg/dL <200 [facility] Comment on above: <200 mg/dL Desirable 200-240 mg/dL Borderline >240 mg/dL High Risk Triglyceride [Mass/Vol] 51 mg/dL <199 [facility] Comment on above: The drugs N-Acetylcy steine and Metamizole may falsely depress this assay.Serum Triglycerides Reference Interval Normal <150 mg/dL Borderline high 150 - 199 mg/dL High 200 - 499 mg/dL Very High > or = 500 mg/dL Serum or plasma cholesterol in HDL measurement (mass/volume)Ordered By: Dr. Paredes on 06-15-2022 Cholesterol in HDL [Mass/Vol] 45 mg/dL >40 [facility] Comment on above: The drugs N-Acetylcy steine and Metamizole may falsely depress this assay. Reference Range HDL <40 mg/dL Low HDL Cholesterol HDL >or= 60 mg/dL High HDL Cholesterol Serum or plasma cholesterol in VLDL measurement (mass/volume)Ordered By: Dr. Paredes on 06-15-2022 Cholesterol in VLDL [Mass/Vol] 10 mg/dL 5-40 [facility] Serum or plasma low density lipoprotein (LDL) cholesterol measurement (mass/volume)Ordered By: Dr. Paredes on 06-15-2022 Cholesterol in LDL [Mass/Vol] 36 mg/dL 0-130 [facility] Whole blood hemoglobin A1c/t otal hemoglobin ratio (mass fraction)Ordered By: Dr. Paredes on 06-15-2022 HbA1c (Bld) [Mass fraction] 6.1 % 3.8-5.6 [facility] Comment on above: Normal < 5.7 % Predi abetic 5.7 - 6.4 % Diabetic >or= 6.5 % Please note range changes. Basophil percentageOrdered B y: Dr. Lauren on 06-14-2022 Basophil percentage 0-5 SEEN /hpf 0-5 [facility] Bilirubin Test strip Ql (U)O rdered By: Dr. Lauren on 06-14-2022 Bilirubin Ql (U) Negative Negative [facility] INR in Blood by Coagulation assayOrdered By: Dr. Lauren on 06-14-2022 INR Coag (Bld) [Relative time] 1.0 {INR} [facility] Ketones Test strip Ql (U)Ord ered By: Dr. Lauren on 06-14-2022 Ketones Ql (U) Negative Negative [facility] Laboratory - CoagulationOrde red By: Dr. Lauren on 06-14-2022 aPTT Coag (Bld) [Time] 23.5 s 24.1-36.2 [facility] PT Coag (PPP) [Time] 13.3 s 11.7-14.9 [facility] Mucus LM Ql (Urine sed)Order ed By: Dr. Lauren on 06-14-2022 Mucus Ql (Urine sed) 0 SEEN /hpf [facility] Nitrite Test strip Ql (U)Ord ered By: Dr. Lauren on 06-14-2022 Nitrite Ql (U) Negative Negative [facility] No Panel InformationOrdered By: Dr. Lauren on 06-14-2022 Troponin I High Sensitivity 25 pg/mL 3.0-54.0 [facility] Comment on above: Please Note: New Mesha t Units and Gender Specific Reference Ranges. For more information see Policy Stat Procedure [facility] High Sensitivity Troponin (TNIH) and attachments. Protein Test strip Ql (U)Ord ered By: Dr. Lauren on 06-14-2022 Protein Ql (U) Negative Negative [facility] Squamous epithelial cells de tection in urine sediment by light microscopyOrdered By: Dr. Lauren on 06-14-2022 Epithelial cells.squamous LM Ql (Urine sed) 0 SEEN /hpf 5-10 [facility] Urine blood detectionOrdered By: Dr. Lauren on 06-14-2022 RBC Ql (U) Negative Negative [facility] RBC Ql (U) 0 SEEN /hpf 0-5 [facility] Urine clarityOrdered By: Dr. Lauren on 06-14-2022 Clarity (U) Sl. Cloudy Clear [facility] Urine color determinationOrd ered By: Dr. Lauren on 06-14-2022 Color (U) Yellow Yellow [facility] Urine glucose detectionOrder ed By: Dr. Lauren on 06-14-2022 Glucose Ql (U) Normal mg/dl Normal [facility] Urine leukocyte esterase det ection by dipstickOrdered By: Dr. Lauren on 06-14-2022 Leukocyte esterase Test strip Ql (U) 25 /ul Negative [facility] Urine pHOrdered By: Dr. Kieran fuchs on 06-14-2022 pH (U) 8.0 [pH] 5.0 - 8.0 [facility] Urine sediment bacteria coun t by microscopy (number/high power field)Ordered By: Dr. Lauren on 06-14-2022 Bacteria LM.HPF (Urine sed) [#/Area] 3 /[HPF] None Seen [facility] Urine specific gravity measu rementOrdered By: Dr. Lauren on 06-14-2022 Specific gravity (U) [Rel density] 1.015 1.002-1.030 [facility] Urobilinogen Auto test strip Ql (U)Ordered By: Dr. Lauren on 06-14-2022 Urobilinogen Ql (U) Normal mg/dl Normal [facility] Vital Signs Date Time Vital Sign Value Performing Clinician Facility 03-30-2025 03:44-0400 Body temperature 98.1 [degF] Dr. Clinton Fowler DO Work Phone: [facility] 03-30-2025 03:44-0400 Diastolic blood pressure 79 mm[Hg] Dr. Clinton Fowler DO Work Phone: [facility] 03-30-2025 03:44-0400 Heart rate 77 /min Dr. Clinton Fowler DO Work Phone: [facility] 03-30-2025 03:44-0400 Respiratory rate 16 /min Dr. Clinton Fowler DO Work Phone: [facility] 03-30-2025 03:44-0400 SaO2% (BldA) [Mass fraction] 98 % Dr. Clinton Fowler DO Work Phone: [facility] 03-30-2025 03:44-0400 Systolic blood pressure 169 mm[Hg] Dr. Clinton Fowler DO Work Phone: [facility] 03-30-2025 01:42-0400 Body height 160.[address] Clinton Fowler DO Work Phone: [facility] 03-30-2025 01:42-0400 Body mass index (BMI) [Ratio] 29.2 kg/m2 Dr. Clinton Fowler DO Work Phone: [facility] 03-30-2025 01:42-0400 Body weight 74.[address] Clinton Fowler DO Work Phone: [facility] 02-22-2025 18:09-0400 Body temperature 97.4 [degF] Dr. Clinton Fowler DO Work Phone: [facility] 02-22-2025 18:09-0400 Diastolic blood pressure 74 mm[Hg] Dr. Clinton Folwer DO Work Phone: [facility] 02-22-2025 18:09-0400 Heart rate 61 /min Dr. Clinton Fowler DO Work Phone: [facility] 02-22-2025 18:09-0400 Respiratory rate 16 /min Dr. Clinton Fowler DO Work Phone: [facility] 02-22-2025 18:09-0400 SaO2% (BldA) [Mass fraction] 97 % Dr. Clinton Fowler DO Work Phone: [facility] 02-22-2025 18:09-0400 Systolic blood pressure 170 mm[Hg] Dr. Clinton Fowler DO Work Phone: [facility] 02-22-2025 14:41-0400 Body height 160.[address] Clinton Fowler DO Work Phone: [facility] 02-22-2025 14:41-0400 Body mass index (BMI) [Ratio] 30.3 kg/m2 Dr. Clinton Fowler DO Work Phone: [facility] 02-22-2025 14:41-0400 Body weight 77.[address] Clinton Fowler DO Work Phone: [facility] 11-25-2024 13:12-0400 Body height 160 cm Libertad Whittaker [employer] Work Phone: [facility] 11-25-2024 13:12-0400 Body mass index (BMI) [Ratio] 29.58 kg/m2 Libertad Ronquillot [employer] Work Phone: [facility] 11-25-2024 13:12-0400 Body weight 75.75 kg Libertad Whittaker [employer] Work Phone: [facility] 11-25-2024 13:12-0400 Diastolic blood pressure 84 mm[Hg] Libertad Marieandt [employer] Work Phone: [facility] 11-25-2024 13:12-0400 Heart rate 60 /min Libertad Ronquillot [employer] Work Phone: [facility] 11-25-2024 13:12-0400 Systolic blood pressure 149 mm[Hg] Libertad Ronquillot [employer] Work Phone: [facility] 06-08-2023 00:26-0500 Diastolic blood pressure 87 mm[Hg] Dr. Clinton Fowler Work Phone: [facility] 06-08-2023 00:26-0500 Heart rate 72 /min Dr. Clinton Fowler Work Phone: [facility] 06-08-2023 00:26-0500 Respiratory rate 16 /min Dr. Clinton Fowler Work Phone: [facility] 06-08-2023 00:26-0500 SaO2% (BldA) [Mass fraction] 97 % Dr. Clinton Fowler Work Phone: [facility] 06-08-2023 00:26-0500 Systolic blood pressure 161 mm[Hg] Dr. Clinton Fowler Work Phone: [facility] 06-07-2023 22:34-0500 Body height 160.[address] Clinton Fowler Work Phone: [facility] 06-07-2023 22:34-0500 Body mass index (BMI) [Ratio] 31 kg/m2 Dr. Clinton Fowler Work Phone: [facility] 06-07-2023 22:34-0500 Body temperature 97.6 [degF] Dr. Clinton Fowler Work Phone: [facility] 06-07-2023 22:34-0500 Body weight 79.[address] Clinton Fowler Work Phone: [facility] 06-03-2023 12:27-0500 Body mass index (BMI) [Ratio] 29 kg/m2 Dr. Clinton Fowler Work Phone: [facility] 06-03-2023 12:27-0500 Body weight 74.[address] Clinton Fowler Work Phone: [facility] 06-03-2023 12:27-0500 Diastolic blood pressure 90 mm[Hg] Dr. Clinton Fowler Work Phone: [facility] 06-03-2023 12:27-0500 Heart rate 77 /min Dr. Clinton Fowler Work Phone: [facility] 06-03-2023 12:27-0500 Respiratory rate 18 /min Dr. Clinton Fowler Work Phone: [facility] 06-03-2023 12:27-0500 SaO2% (BldA) [Mass fraction] 93 % Dr. Clinton Fowler Work Phone: [facility] 06-03-2023 12:27-0500 Systolic blood pressure 167 mm[Hg] Dr. Clinton Fowler Work Phone: [facility] 01-14-2023 13:40-0400 Body temperature 97.9 [degF] Dr. Clinton Fowler Work Phone: [facility] 01-14-2023 13:40-0400 Diastolic blood pressure 55 mm[Hg] Dr. Clinton Fowler Work Phone: [facility] 01-14-2023 13:40-0400 Heart rate 99 /min Dr. Clinton Fowler Work Phone: [facility] 01-14-2023 13:40-0400 Respiratory rate 15 /min Dr. Clinton Fowler Work Phone: [facility] 01-14-2023 13:40-0400 SaO2% (BldA) [Mass fraction] 97 % Dr. Clinton Fowler Work Phone: [facility] 01-14-2023 13:40-0400 Systolic blood pressure 130 mm[Hg] Dr. Clinton Fowler Work Phone: [facility] 01-13-2023 14:42-0400 Body height 177.[address] Clinton Fowler Work Phone: [facility] 01-13-2023 14:42-0400 Body weight 73.[address] Clinton Fowler Work Phone: [facility] 01-12-2023 16:07-0400 Body mass index (BMI) [Ratio] 23.2 kg/m2 Dr. Clinton Fowelr Work Phone: [facility] 09-20-2022 15:19-0500 Body height 177.[address] Clinton Fowler Work Phone: [facility] 09-20-2022 15:19-0500 Body weight 84.[address] Clinton Fowler Work Phone: [facility] 09-20-2022 15:16-0500 Body temperature 97.6 [degF] Dr. Clinton Fowler Work Phone: [facility] 09-20-2022 15:16-0500 Diastolic blood pressure 64 mm[Hg] Dr. Clinton Fowler Work Phone: [facility] 09-20-2022 15:16-0500 Heart rate 63 /min Dr. Clinton Fowler Work Phone: [facility] 09-20-2022 15:16-0500 Respiratory rate 14 /min Dr. Clinton Fowler Work Phone: [facility] 09-20-2022 15:16-0500 SaO2% (BldA) [Mass fraction] 97 % Dr. Clinton Fowelr Work Phone: [facility] 09-20-2022 15:16-0500 Systolic blood pressure 112 mm[Hg] Dr. Clinton Fowler Work Phone: [facility] 09-20-2022 14:13-0500 Body mass index (BMI) [Ratio] 26.6 kg/m2 Dr. Clinton Fowler Work Phone: [facility] 09-18-2022 14:55-0500 Inhaled oxygen flow rate 2 L/min Dr. Clinton Fowler Work Phone: [facility] 09-16-2022 20:15-0500 Body height 177.[address] Clinton Fowler Work Phone: [facility] 09-16-2022 20:15-0500 Body mass index (BMI) [Ratio] 26.6 kg/m2 Dr. Clinton Fowler Work Phone: [facility] 09-16-2022 20:15-0500 Body weight 84.[address] Clinton Fowler Work Phone: [facility] 09-16-2022 19:54-0500 Body temperature 97.9 [degF] Dr. Clinton Fowler Work Phone: [facility] 09-16-2022 19:54-0500 Diastolic blood pressure 77 mm[Hg] Dr. Clinton Fowler Work Phone: [facility] 09-16-2022 19:54-0500 Heart rate 72 /min Dr. Clinton Fowler Work Phone: [facility] 09-16-2022 19:54-0500 Respiratory rate 18 /min Dr. Clinton Fowler Work Phone: [facility] 09-16-2022 19:54-0500 SaO2% (BldA) [Mass fraction] 95 % Dr. Clinton Fowler Work Phone: [facility] 09-16-2022 19:54-0500 Systolic blood pressure 136 mm[Hg] Dr. Clinton Fowler Work Phone: [facility] 06-16-2022 16:00-0500 Body temperature 97.9 [degF] Dr. Clinton Fowler Work Phone: [facility] 06-16-2022 16:00-0500 Diastolic blood pressure 102 mm[Hg] Dr. Clinton Fowler Work Phone: [facility] 06-16-2022 16:00-0500 Heart rate 82 /min Dr. Clinton Fowler Work Phone: [facility] 06-16-2022 16:00-0500 Respiratory rate 18 /min Dr. Clinton Fowler Work Phone: [facility] 06-16-2022 16:00-0500 SaO2% (BldA) [Mass fraction] 94 % Dr. Clinton Fowler Work Phone: [facility] 06-16-2022 16:00-0500 Systolic blood pressure 123 mm[Hg] Dr. Clinton Fowler Work Phone: [facility] 06-15-2022 19:47-0500 Body mass index (BMI) [Ratio] 30.4 kg/m2 Dr. Clinton Fowler Work Phone: [facility] 06-15-2022 11:29-0500 Body height 170.[address] Clinton Fowler Work Phone: [facility] 06-15-2022 11:29-0500 Body weight 88.[address] Clinton Fowler Work Phone: [facility] 02-04-2022 15:50-0400 Body height 170.18 cm [facility] Work Phone: 02-04-2022 15:50-0400 Body mass index (BMI) [Ratio] 32.8 kg/m2 [facility] Work Phone: 02-04-2022 15:50-0400 Body temperature 99 [degF] [facility] Work Phone: 02-04-2022 15:50-0400 Body weight 95.25 kg [facility] Work Phone: 02-04-2022 15:50-0400 Diastolic blood pressure 70 mm[Hg] [facility] Work Phone: 02-04-2022 15:50-0400 Heart rate 84 /min [facility] Work Phone: 02-04-2022 15:50-0400 Respiratory rate 14 /min [facility] Work Phone: 02-04-2022 15:50-0400 SaO2% (BldA) [Mass fraction] 97 % [facility] Work Phone: 02-04-2022 15:50-0400 Systolic blood pressure 138 mm[Hg] [facility] Work Phone: Encounters Encounter Date Encounter Type Care Provider Facility Start: 05-16-2025 ambulatory Clinton Fowler Facility: [facility] Start: 05-13-2025 End: 05-16-2025 ambulatory Louis Stoddard Facility:[facility] Start: 05-05-2025 End: 05-05-2025 Emergency department patient visit Alex Saha Facility:[facility] Start: 03-30-2025 End: 03-30-2025 Emergency department patient visit Dr. Clinton Fowler DO Work Phone: -Emergency Department Work Phone: Start: 02-25-2025 ambulatory Clinton Dany Facility: [facility] Start: 02-22-2025 End: 02-22-2025 Emergency department patient visit Dr. Clinton Fowler DO Work Phone: -Emergency Department Work Phone: Start: 01-01-2025 End: 01-01-[address] Clinton Fowler DO Work Phone: [facility] Work Phone: Start: 01-01-2025 End: 01-01-[address] Clinton Fowler DO -Laboratory Tayo Santana [facility] Start: 01-01-2025 End: 01-01-2025 ambulatory Clinton Dany Facility:[facility] Start: 12-11-2024 End: 12-11-2024 Patient encounter procedure Hung Adames DO -[facility] Work Phone: Start: 12-11-2024 End: 12-11-[address] Clinton Fowler DO Work Phone: [facility] Work Phone: Start: 11-25-2024 End: 11-25-2024 ambulatory LIBERTAD WHITTAKER [facility] Start: 11-25-2024 End: 11-25-2024 Office outpatient new 60 minutes Libertad Mariezion [employer] Work Phone: [facility] Comment on above: TOBY (obstructive sle ep apnea) (Primary Dx); PLMD (periodic limb movement disorder); Dementia without behavioral disturbance (Multi); Hypersomnia Start: 06-28-2024 End: 06-28-2024 Emergency department patient visit Clinton Dany Facility:[facility] Start: 06-09-2024 End: 06-09-2024 ambulatory [facility] Facility:[facility] Start: 05-23-2024 End: 05-23-2024 ambulatory [facility] Facility:[facility] Start: 01-21-2024 End: 01-21-2024 ambulatory LIBERTAD WHITTAKER Not Available Start: 09-28-2023 End: 09-28-2023 ambulatory [facility] Work Phone: Start: 09-28-2023 End: 09-28-2023 [facility] Start: 07-20-2023 End: 07-20-2023 ambulatory LIBERTAD WHITTAKER Not Available Start: 06-07-2023 End: 06-08-2023 Emergency department patient [facility] Start: 06-04-2023 End: 06-04-[address] Clinton Fowler Work Phone: [facility] Work Phone: Start: 06-03-2023 End: 06-03-[address] Clinton Fowler Work Phone: [facility] Work Phone: Start: 04-27-2023 End: 04-27-[address] Clinton Fowler Work Phone: [facility] Work Phone: Start: 04-27-2023 End: 04-27-[address] Clinton Fowler Work Phone: [facility] [place] Work Phone: Start: 04-25-2023 End: 04-25-[address] Clinton Fowler Work Phone: [facility] Work Phone: Start: 04-25-2023 End: 04-25-[address] Clinton Fowler Work Phone: [facility] Start: 01-24-2023 End: 01-24-[address] Clinton Fowler Work Phone: [facility] Work Phone: Start: 01-24-2023 End: 01-24-[address] Clinton Fowler Work Phone: [facility]-Kate Tayo Esther [facility] Start: 01-14-2023 Non-patient / Non-visit Dr. Clinton Fowler Work Phone: [facility] Work Phone: Start: 01-13-2023 Non-patient / Non-visit Dr. Clinton Fowler Work Phone: [facility] Start: 01-13-2023 Non-patient / Non-visit Dr. Clinton Fowler Work Phone: [facility] Work Phone: Start: 01-12-2023 Non-patient / Non-visit Dr. Clinton Fowler Work Phone: [facility] Start: 01-12-2023 Non-patient / Non-visit Dr. Clinton Fowler Work Phone: [facility] Work Phone: Start: 01-12-2023 End: 01-14-2023 Evaluation and management of inpatient Dr. Clinton Fowler Work Phone: [facility]-Progressive Care Unit Work Phone: Start: 12-05-2022 End: 12-05-[address] Clinton Fowler Work Phone: [facility] Work Phone: Start: 10-23-2022 End: 10-23-[address] Clinton Fowler Work Phone: [facility] Work Phone: Start: 10-23-2022 End: 10-23-[address] Clinton Fowler Work Phone: [facility]-Laboratory Start: 09-20-2022 Non-patient / Non-visit Dr. Clinton Fowler Work Phone: [facility] Start: 09-19-2022 End: 09-19-2022 Non-patient / Non-visit Dr. Clinton Fowler Work Phone: [facility] Start: 09-19-2022 Non-patient / Non-visit Dr. Clinton Fowler Work Phone: [facility] Start: 09-18-2022 Non-patient / Non-visit Dr. Clinton Fowler Work Phone: [facility] Start: 09-17-2022 Non-patient / Non-visit Dr. Clinton Fowler Work Phone: [facility] Start: 09-16-2022 End: 09-20-2022 Evaluation and management of inpatient Dr. Clinton Fowler Work Phone: [facility]-Medical Surgical 3 Start: 08-23-2022 End: 08-23-[address] Clinton Fowler Work Phone: [facility] Work Phone: Start: 08-23-2022 End: 08-23-[address] Clinton Fowler Work Phone: [facility] Start: 08-13-2022 End: 08-13-[address] Clinton Fowler Work Phone: [facility] Work Phone: Start: 08-13-2022 End: 08-13-[address] Clniton Fowler Work Phone: [facility]-Laboratory, Specimen Start: 08-11-2022 End: 08-11-[address] Clinton Fowler Work Phone: [facility] Work Phone: Start: 08-11-2022 End: 08-11-[address] Clinton Fowler Work Phone: [facility]-Laboratory, Specimen Start: 08-10-2022 End: 08-10-[address] Clinton Fowler Work Phone: [facility] Work Phone: Start: 08-10-2022 End: 08-10-[address] Clinton Fowler Work Phone: [facility] Start: 06-16-2022 Non-patient / Non-visit Dr. Clinton Fowler Work Phone: [facility] Start: 06-15-2022 Non-patient / Non-visit Dr. Clinton Fowler Work Phone: [facility] Start: 06-15-2022 End: 06-16-2022 Evaluation and management of inpatient Dr. Clinton Fowler Work Phone: [facility]-Progressive Care Unit Start: 06-15-2022 End: 06-16-[address] Clinton Fowler Work Phone: [facility] Work Phone: Start: 02-04-2022 End: 02-04-2022 Emergency department patient visit [facility]-Emergency Department Procedures Date Procedure Procedure Detail [...] (3 - Td or Tdap) [facility] Start: 05-26-2025 End: 05-26-2025 Patient encounter procedure 05/26/2025 1:00 PM EST Office Visit [facility] [address] [place] [address] Libertad Whittaker, [employer] COM[employer] [address] [address] [facility] Start: 03-30-2025 Bacteria identified in Urine by Culture Urine Culture [facility] Start: 03-30-2025 End: 03-30-2025 [facility] Start: 02-22-2025 [facility] Start: 02-22-2025 [facility] Start: 02-22-2025 Bacteria identified in Urine by Culture Urine Culture [facility] Start: 03-16-2024 COVID-19 Vaccine ( season) COVID-19 Vaccine ( season) [facility] Start: 06-08-2023 [facility] Start: 06-07-2023 Plain chest X-ray Chest 1 View (Portable) [facility] Start: 06-07-2023 XR Chest Single view [facility] Start: 01-14-2023 Patient discharge [facility] Start: 01-13-2023 Ova and Parasites Ova and Parasites [facility] Start: 01-12-2023 Assessment of risk of venous thromboembolism [facility] Start: 01-12-2023 Documentation procedure [facility] Start: 01-12-2023 Insertion of catheter into peripheral vein [facility] Start: 01-12-2023 Measuring intake and output [facility] Start: 01-12-2023 Providing care according to standard [facility] Start: 01-12-2023 Provision of activity privileges [facility] Start: 01-12-2023 Referral to gastroenterology service [facility] Start: 01-12-2023 Referral to occupational therapist [facility] Start: 01-12-2023 Referral to service [facility] Start: 01-12-2023 [facility] Start: 01-12-2023 Following clinical pathway protocol [facility] Start: 01-12-2023 Admission procedure [facility] Start: 01-12-2023 Patient referral to dietitian [facility] Start: 12-26-2022 Pneumococcal vaccination Pneumococcal Vaccine (2 of 2 - PCV) [facility] Start: 09-26-2022 Blood chemistry [facility] Start: 09-25-2022 Blood chemistry [facility] Start: 09-24-2022 Blood chemistry [facility] Start: 09-23-2022 Blood chemistry [facility] Start: 09-22-2022 Blood chemistry [facility] Start: 09-21-2022 Blood chemistry [facility] Start: 09-20-2022 Patient discharge [facility] Start: 09-20-2022 Referral to service [facility] Start: 09-18-2022 Speech therapy assessment [facility] Start: 09-18-2022 Implementation of planned interventions [facility] Start: 09-18-2022 Notification of physician [facility] Start: 09-18-2022 Care planning and problem solving actions [facility] Start: 09-18-2022 Cardiac monitoring [facility] Start: 09-18-2022 Catheterization of vein [facility] Start: 09-18-2022 Elevation of head of bed [facility] Start: 09-18-2022 Exercises [facility] Start: 09-18-2022 Implementation of planned interventions [facility] Start: 09-18-2022 Notification of physician [facility] Start: 09-18-2022 [facility] Start: 09-16-2022 Assessment of risk of venous thromboembolism [facility] Start: 09-16-2022 Care regimes management [facility] Start: 09-16-2022 Catheterization of vein [facility] Start: 09-16-2022 Insertion of catheter into peripheral vein [facility] Start: 09-16-2022 Oxygen therapy [facility] Start: 09-16-2022 Providing care according to standard [facility] Start: 09-16-2022 Provision of activity privileges [facility] Start: 09-16-2022 Referral to occupational therapist [facility] Start: 09-16-2022 Referral to service [facility] Start: 09-16-2022 [facility] Start: 09-16-2022 Following clinical pathway protocol [facility] Start: 09-16-2022 Verification routine [facility] Start: 09-16-2022 Admission procedure [facility] Start: 09-16-2022 Blood culture [facility] Start: 09-16-2022 End: 09-16-2022 [facility] Start: 09-16-2022 Blood culture [facility] Start: 09-16-2022 Patient referral to dietitian [facility] Start: 06-23-2022 Blood chemistry [facility] Work Phone: Start: 06-22-2022 Blood chemistry [facility] Work Phone: Start: 06-21-2022 Blood chemistry [facility] Work Phone: Start: 06-20-2022 Blood chemistry [facility] Work Phone: Start: 06-19-2022 Blood chemistry [facility] Work Phone: Start: 06-18-2022 Blood chemistry [facility] Work Phone: Start: 06-17-2022 Blood chemistry [facility] Work Phone: Start: 06-16-2022 Patient discharge [facility] Start: 06-15-2022 Application of intermittent pneumatic compression device [facility] Start: 06-15-2022 Following clinical pathway protocol [facility] Start: 06-15-2022 Assessment of risk of venous thromboembolism [facility] Start: 06-15-2022 Cardiac monitoring [facility] Start: 06-15-2022 Catheterization of vein [facility] Start: 06-15-2022 Elevation of head of bed [facility] Start: 06-15-2022 Exercises [facility] Start: 06-15-2022 Implementation of planned interventions [facility] Start: 06-15-2022 Insertion of catheter into peripheral vein [facility] Start: 06-15-2022 Measuring intake and output [facility] Start: 06-15-2022 Notification of physician [facility] Start: 06-15-2022 Providing care according to standard [facility] Start: 06-15-2022 Provision of activity privileges [facility] Start: 06-15-2022 Referral to occupational therapist [facility] Start: 06-15-2022 Referral to service [facility] Start: 06-15-2022 Tobacco use cessation education [facility] Start: 06-15-2022 [facility] Start: 06-15-2022 Admission procedure [facility] Start: 06-15-2022 Patient referral to dietitian [facility] Start: 06-14-2022 [facility] Work Phone: Start: 02-17-2011 RSV High Risk: (Elderly (60+) or Population) (1 - 1-dose 75+ series) RSV High Risk: (Elderly (60+) or Population) (1 - 1-dose 75+ series) [facility] Start: 02-17-1986 Zoster Vaccines (1 of 2) Zoster Vaccines (1 of 2) [facility] Start: 02-17-1954 Diabetes mellitus screening Diabetes Screening [facility] Start: 1935 Lipid panel Lipid Panel [facility] Start: 1935 Medicare Annual Wellness Visit Medicare Annual Wellness Visit (AWV) [facility] Start: 1935 Screening for osteoporosis Bone Density Scan [facility] Bacteria identified in Blood by Culture Blood Culture [facility] Bacteria identified in Blood by Culture Blood Culture [facility] Bacteria identified in Urine by Culture Urine Culture [facility] Ova and parasites identified in Unspecified specimen by Light microscopy [facility] Ova and parasites identified in Unspecified specimen by Light microscopy [facility] Patient Education [facility] Work Phone: Patient referral [facility] Work Phone: Procedure [facility] Urine culture Urine Culture [facility] Work Phone: Urine culture [facility] Urine culture [facility] Immunizations Immunization Date Immunization Notes Care Provider Fa [facility] 06-26-2022 influenza, injectabl e, quadrivalent, preservative free Dr. Clinton Fowler Work Phone: [facility] 06-26-2022 influenza, seasonal, injectable Dr. Clinton Fowler Work Phone: [facility] 09-11-2021 tetanus toxoid, redu luis fernando diphtheria toxoid, and acellular pertussis vaccine, adsorbed [facility] 06-15-2021 Influenza virus vaccine [facility] 04-14-2021 Covga (Moderna) [facility] 09-02-2020 [facility] (Moderna) [facility] 08-05-2020 [facility] 07-14-2019 tetanus toxoid, redu luis fernando diphtheria toxoid, and acellular pertussis vaccine, adsorbed [facility] 06-14-2013 Influenza virus vaccine [facility] 07-16-2011 Pneumococcal Vaccine [facility] Work Phone: 07-16-2011 pneumococcal vaccine , unspecified formulation Dr. Clinton Fowler Work Phone: [facility] Payers Date Payer Category Payer Self-pay [id number] 2015 Medicare supplementa l policy (as second payer) [employer] MEDICARE SUPPLEMENT [id number] 2015 Private Health Insurance [id number] 2001 Medicare MEDICARE PART A AND B [id number] 2001 Medicare [id number] 1936 Unknown [id number] [id number] 9.2.1259 1936 Unknown [id number] 2.16840.1.963234.3.57 9.2.1259 1936 Unknown [id number] 2.16.840.1.520009.3.57 9.2.1243 Unknown [id number] 2.16840.1.449740.3.57 9.2.462 Unknown [id number] 2.16840.1.368848.3.57 9.2.462 Unknown [id number] 2.16.840.1.192741.3.57 9.2.462 Unknown [id number] 2.16.840.1.359132.3.57 9.2.462 Unknown [id number] 2.16.840.1.536278.3.57 9.2.462 Unknown [id number] 2.16.840.1.333368.3.57 9.2.462 Unknown [id number] 2.16.840.1.139369.3.57 9.2.462 Unknown [id number] 2.16.840.1.699007.3.57 9.2.462 Unknown [id number] 2.16.840.1.993629.3.57 9.2.462 Unknown [id number] 2.16.840.1.033453.3.57 9.2.462 Unknown [id number] 2.16.840.1.602444.3.57 9.2.462 Unknown [id number] 2.16.840.1.993492.3.57 9.2.462 Unknown [id number] 2.16.840.1.925355.3.57 9.2.462 Unknown [id number] 2.16.840.1.149967.3.57 9.2.462 Unknown [id number] 2.16.840.1.265029.3.57 9.2.462 Unknown [id number] 2.16.840.1.300013.3.57 9.2.462 Unknown [id number] 2.16.840.1.200492.3.57 9.2.462 Unknown [id number] 2.16.840.1.126398.3.57 9.2.462 Social History Date Type Detail Facility Start: 02-04-2022 End: 06-07-2023 Tobacco smoking status NHIS Unknown if ever smoked [facility] Start: 12-03-2018 None [facility] Start: 07-14-2019 Spouse/ Signif icant Other [facility] Start: 07-14-2019 Non-smoker [facility] Start: 1935 Sex Assigned At Female [facility] Start: 11-25-2024 End: 03-30-2025 Tobacco smoking status NHIS Never smoked tobacco [facility] Work Phone: Start: 11-25-2024 Tobacco use and exposure Smokeless tobacco non-user [facility] Work Phone: Start: 11-25-2024 Alcoholic beverage intake Lifetime non-drinker (finding) [facility] Work Phone: Start: 11-25-2024 History of Social function [facility] Work Phone: Start: 11-25-2024 Tobacco use panel [facility] Work Phone: Start: 1935 [facility] Start: 11-15-2024 End: 11-25-2024 Exposure to SARS-CoV-2 (event) Not sure [facility] Goals Date Patient Goal Desired Activity /State Functional Status Date Assessment Result Facility 01-14-2023 Functional status Activity Abili ty With Assist of 1 [facility] Work Phone: 09-20-2022 Functional status Activity Abili ty With Assist of 2 [facility] Work Phone: 09-20-2022 Functional status Chair [facility] Work Phone: 06-16-2022 Functional status Ambulates;Shree r;Bathroom Privilege [facility] Work Phone: Mental Status Date Assessment Result Facility 03-30-2025 Cognitive function Awake;Alert;Disoriente d [facility] Work Phone: 02-22-2025 Cognitive function Level Of Cons ciousness Awake;Follows Commands [facility] Work Phone: 06-07-2023 Cognitive function Level Of Cons ciousness Awake;Disoriented [facility] Work Phone: 01-14-2023 Cognitive function Voice/Name [facility] Work Phone: 09-20-2022 Cognitive function Voice/Name [facility] Work Phone: 09-16-2022 Cognitive function Level Of Cons ciousness Awake;Lethargic;Inappropriate [facility] Work Phone: 06-16-2022 Cognitive function Voice/Name [facility] Work Phone: Clinical Notes 09-16-2022 to 05-16-2025 Note Date & Type Note Facility 05-16-2025 Note [facility] Medical Records Department [address] [place] [address] Discharge Summary 05/16/25 1405 MR#: [id number] Acct: [id number] Name: LIZA HANCOCK Rep #: [id number] : 1935 89 From: Dereck Oliveros MD PCP: Dr. Clinton Fowler, DO Status:ADM TARA Location: [place] [address] Providers Date of Admission: 05/13/25 Date of Discharge: 05/16/25 Primary Care Physician: Dr. Clinton Fowler DO Reason For Visit: WEAKNESS, MILD BARBRA Diagnosis Discharge Diagnosis (1) Debility: Status: Acute Code(s): R53.81 - Other malaise Plan Patient is an 89-year-old lady with history of dementia with recent diagnosis of UTI brought to the emergency department with progressive generalized weakness 1. Physical deconditioning/debility ??? Secondary to patient recent UTI. Requested for PT OT eval and protective services social worker to assist with discharge planning 05/15: Discussed with the manager case. Plan for possible discharge tomorrow. 2. Advanced [...] capsule 1,000 mg PO DAILY supplement 11/30/17 behhgpgp-egm-bklhs acid 0.4 mg-lycopene 300 mcg-lutein 250 mcg [...] Extra Strength) 500 mg PO BID 06/07/23 xezztk-vilsjmsl-bjghknq 36,000-114,000-180,000 unit capsule,delay rel (Creon) 3 cap PO .aqc #300 caps 07/24/24 atorvastatin 40 mg tablet [...] Admitted with generaliz (more content not included)... [facility] 03-30-2025 Radiology Diagnostic study note [facility] Imaging Services [address] [place], [place] [id number] Brain/Head without Contrast MR#: [id number] Acct: [id number] Name: LIZA HANCOCK Rep #: [id number] : 1935 F 89 From: Shagufta Lin MD PCP: Dr. Clinton Fowler, DO Status: REG ER Study:Brain/Head without Contrast Date of Exa m: 03/30/25 Exam# [id number] Ordering Dr: Ivette Oshea DO PROCEDURE: BRAIN/HEAD [...] matches brain involutional changes. Stable. Reading Location: [place] [address] CC: Dr. Clinton Fowler DO; Quentin Oshea DO ~ Registrar Museum: Signed [facility] 02-27-2025 Hospital Discharg e instructions Additional [...] any further concerns or worsening of symptoms [facility] Work Phone: 02-22-2025 Radiology Diagnostic study note [facility] Imaging Services [address] [place] [address] Chest PA and Lateral MR#: [id number] Acct: [id number] Name: LIZA HANCOCK Rep #: [id number] : 1935 F 89 From: Huyen Noble MD PCP: Dr. Clinton Fowler DO Status: REG ER Study:Chest PA and Lateral Date of Exam: 02/22/25 Exam# [id number] Ordering Dr: Sixto Alvarez DO PROCEDURE: CHEST [...] Lateral IMPRESSION: NO ACUTE FINDINGS. Reading Location: [facility] CC: Dr. Sixto Alvarez DO; Dr. Clinton Fowler DO ~ Registrar Museum: Signed [facility] 02-22-2025 Radiology Diagnostic study note [facility] Imaging Services [address] [place] [address] Brain/Head without Contrast MR#: [id number] Acct: [id number] Name: LIZA HANCOCK Rep #: [id number] : 1935 F 89 From: Huyen Noble MD PCP: Dr. Clinton Fowler DO Status: REG ER Study:Brain/Head without Contrast Date of Exa m: 02/22/25 Exam# [id number] Ordering Dr: Sixto Alvarez DO EXAM: BRAIN/HEAD [...] IMPRESSION: No acute intracranial finding. Reading Location: [id number] CC: Dr. Sixto Alvarez, DO; Dr. Clinton Fowler DO ~ Registrar Museum: Signed [facility] 12-11-2024 Evaluation note Diagnosis Onset Date Resolution Chronic anemia chronic December 11, 2024 1:48pm Exocrine pancreatic insufficiency chronic December 11, 2024 1:48pm GI bleed resolved December 11, 2024 1:48pm Loose stools inactive December 11 1:48pm [facility] Work Phone: 1(456) 610-345005-13-2025 History of Present illness Narrative* Libertad Brody Davian, GERALD-FELICITAS - 11/25/2024 1:00 PM EDT Images from the original note were not included. CHIEF COMPLAINT: Dementia Plmd Toby hypersomnia HISTORY OF PRESENT ILLNESS: 89 year old female presented to office with spouse to establish care for dementia, plmd, toby and hypersomnia. Known to this provider, previously at [facility]- office closed. Wears pap nightly, sleeps [...] kg (167 lb) Height: 1.6 m (5' 3") Body mass index is 29.58 kg/m . [...] encounter. Follow up in 6 months Libertad Whittaker, GERALD-FELICITAS [1] Current Outpatient Medications on File Prior [...] Take 1 capsule (1,000 Units) by mouth. irdl-ikwux-AWP-cxe-qkdggaf-hir 100 mg-100 mcg- 100 mg-100 mg capsule [...] abuse D[facility] Phone: 1(925) 205-391605-13-2025 Instructions* Patient Instructions* JOSSY Abrams - 11/25/2024 1:00 PM EDT Continue to wear pap therapy every night Increase activity/exercise daily Follow up in 6 months [facility] Work Phone: 1(923) 966-650611-23-2023 Discharge summary Author Nikki Jacques [facility] June 08, 2023 12:30am Note Date/Time June 07, 2023 11:19pm [facility] Medical Records Department [address] [place] [address] Emergency Department Summary 06/07/23 MR#: [id number] Acct: [id number] Name: LIZA HANCOCK Rep #:[id number] : 1935 88 From: Nikki Jacques MD [...] that hegave her hot chocolate before bed. [facility] Medical History Alzheimer disease AMS (altered [...] #30 tabs 12/03/17 [Rx Last Taken 01/11/23] egvgefnt-ytn-ufkkv acid 0.4 mg-lycopene 300 mcg-lutein 250 mcg [...] #30 tabs 09/20/22 [Rx Last Taken 01/11/23] uyisfy-dhzkwakn-droasvr 36,000-114,000-180,000 unit capsule,delay rel (Creon) See Rx [...] Medical decision making narrative: Patient placed on front desk monitor. IV line initiated. Labwork obtained to evaluate [...] (Auto) 43.4 L Lymph % (Auto) 39.9 Hale % (Auto) 10.5 H Eos % (Auto) [...] 80 mg PO QHS Qty: 30 0RF cajrxvcz-ncz-GC-lycopen-lutein 1 EACH tablet 1 ea PO BID [...] your Primary Care Provider. Call [facility] ([phone]) or report to the closest Emergency Room. Call 911 if necessary. 06/08/23 0030 <Electronically signed by Nikki Jacques MD> Cosigner Signature (if applicable): CC: Dr. Clinton Fowler DO ~ Signed [facility] Work Phone: 1(462) 917-836307-02-2023 Progress note Author Sixto Braswell [facility] January 14, 2023 1:35pm Note Date/Time January 14, 2023 9:08a [facility] Medical Records Department [address] [place] [address] Progress Note - Hospitalist 01/14/23 0906 MR#: [id number] Acct: [id number] Name: LIZA HANCOCK Rep #:[id number] : 1935 87 From: Sixto Braswell DO PCP: Dr. Clinton Fowler DO Status:ADM IN Location: [place] [address] Reason for Visit Reason for Visit: Diagnoses [...] Document 01/13/23 15:16 [facility] (Rec: 01/13/23 15:16 [facility] [id number]) Nutrition Malnutrition Evidence of Malnutrition Exists Yes [...] % (Auto) 54.5, Lymph % (Auto) 31.1, Hale % (Auto) 9.1, Eos % (Auto) 3.6, [...] patient's , who is her power of photostat operator helper,patient is to be DNR Comfort Care arrest. Discharge home. Charges/Coding Visit Charges Inpatient E&M: 85464 Subs Hosp L2 01/14/23 1335 <Electronically signed by Sixto Braswell DO> Cosigner Signature (if applicable): CC: ~ Signed [facility] Work Phone: 1(937) 462-405707-01-2023 Progress note Author Hung Adames [facility] January 13, 2023 8:16pm Note Date/Time January 13, 2023 8:15p m [facility] Medical Records Department [address] [place] [address] Progress Note - GI 01/13/232013 MR#: [id number] Acct: [id number] Name: DANA HANCOCKNILSA Oneal Rep #:[id number] : 1935 87 From: Hung Adames DO PCP: Dr. Clinton Fowler DO Status:ADM IN Location: [place] [id number]- 1 Subjective Subjective Patient had another large [...] 01/13/23 15:16 TIRSO (Rec: 01/13/23 15:16 [facility] [id number]) Nutrition Malnutrition Evidence of Malnutrition Exists Yes [...] % (Auto) 47.8, Lymph % (Auto) 36.7, Hale % (Auto) 10.2 H, Eos % (Auto) [...] to bleed. Charges/Coding Visit Charges Inpatient E&M: 74607 Subs Hosp L3 01/13/232015 <Electronically signed by Hung Adames DO> Cosigner Signature (if applicable): CC: ~ Signed [facility] Work Phone: 1(365) 437-884707-01-2023 Progress note Author Sixto Braswell [facility] January 13, 2023 11:08am Note Date/Time January 13, 2023 8:25a m [facility] Medical Records Department [address] [place] [address] Progress Note - Hospitalist 01/13/23820 MR#: [id number] Acct: [id number] Name: LIZA HANCOCK Rep #:[id number] : 1935 87 From: Sixto Braswell DO PCP: Dr. Clinton Fowler DO Status:ADM IN Location: [place] [address] Reason for Visit Reason for Visit: Diagnoses [...] % (Auto) 61.7, Lymph % (Auto) 27.4, Hale % (Auto) 7.1, Eos % (Auto) 2.0, [...] Clarity Clear, Urine pH 5.0, Ur Specific [place] 1.015, Urine Protein Negative, Urine Glucose (UA) [...] % (Auto) 47.8, Lymph % (Auto) 36.7, Hale % (Auto) 10.2 H, Eos % (Auto) [...] patient's , who is her power of photostat operator helper,patient is to be DNR Comfort Care arrest. Charges/Coding Visit Charges Inpatient E&M: 47577 Subs Hosp L2 01/13/23 1108 <Electronically signed by Sixto Braswell DO> Cosigner Signature (if applicable): CC: ~ Signed [facility] Work Phone: 1([phone]) 288-888206-30-2023 Consult note Author Hung Adames [facility] January 12, 2023 5:52pm Note Date/Time January 12, 2023 5:49 pm [facility] Medical Records Department [address] [place] [address] Consultation - GI 01/12/23 1749 MR#: [id number] Acct: [id number] Name: LIZA HANCOCK Rep #:[id number] : 1935 87 From: Hung Adames DO PCP: Dr. Clinton Fowler DO Status:[facility]M [facility] H[facility] Consult Data Date of Consult: [...] a non-smoker who lives with her . [facility] Medical History (Updated 01/12/23 @ 16:15 by [...] #30 tabs 12/03/17 [Rx Last Taken 01/11/23] oybktovw-agt-rdvkn acid 0.4 mg-lycopene 300 mcg-lutein 250 mcg [...] #30 tabs 09/20/22 [Rx Last Taken 01/11/23] ykgsrl-oieoeuzs-toyotjj 36,000-114,000-180,000 unit capsule,delay rel (Creon) See Rx [...] % (Auto) 61.7, Lymph % (Auto) 27.4, Hale % (Auto) 7.1, Eos % (Auto) 2.0, [...] Clarity Clear, Urine pH 5.0, Ur Specific [place] 1.015, Urine Protein Negative, Urine Glucose (UA) [...] blood thinners. Charges/Coding Visit Charges Inpatient E&M: 60052 Subs Hosp L2 01/12/23 6506 <Electronically signed by Hung Adames DO> Cosigner Signature (if applicable): CC: Dr. Clinton Fowler DO~ Signed [facility] Work Phone: 1(599) 751-367106-30-2023 Discharge summary Author Isiah Winn [facility] January 12, 2023 4:48pm Note Date/Time January 12, 2023 12:2 8pm [facility] Medical Records Department [address] [place] [address] Emergency Department Summary 01/12/23 MR#: [id number] Acct: [id number] Name: LIZA HANCOCK Rep #:[id number] : 1935 87 From: Isiah Osuan PCP: Dr. Clinton Fowler, DO Status:ADM IN Location: [place] [id number]- 1 HPI HPI - GI History of [...] has not been transfused in the past. [facility] Medical History (Updated 01/12/23 @ 16:15 [...] #30 tabs 12/03/17 [Rx Last Taken 01/11/23] czptgzmy-ahq-oigze acid 0.4 mg-lycopene 300 mcg-lutein 250 mcg [...] #30 tabs 09/20/22 [Rx Last Taken 01/11/23] tafkfx-gzdmhvxx-vuqrayk 36,000-114,000-180,000 unit capsule,delay rel (Creon) See Rx [...] Dr. Braswell. This note was generated with [employer] dictation software. It may contain incorrectwords, spelling, [...] % (Auto) 61.7 Lymph % (Auto) 27.4 Hale % (Auto) 7.1 Eos % (Auto) 2.0 [...] Clarity Clear Urine pH 5.0 Ur Specific [place] 1.015 Urine Protein Negative Urine Glucose (UA) [...] disease, Weakness Disposition Disposition: Acute Care Hospital [facility] What to do if you have Problems For any increased pain, shortness of breath, bleeding, nausea or vomiting, chestpain, or any unexpected problems, contact your Primary Care Provider. Call [facility] ([phone]) or report to the closest Emergency Room. Call 911 if necessary. 01/12/23 1648 <Electronically signed by Isiah Osuna> Cosigner Signature (if applicable): CC: Dr. Clinton Fowler DO ~ Signed [facility] Work Phone: 1(592) 250-827406-30-2023 History and physical note Author Sixto Braswell [facility] January 12, 2023 2:24pm Note Date/Time January 12, 2023 2:24 pm [facility] Medical Records Department [address] [place] [address] H&P Exam - Hospitalist 01/12/23 1419 MR#: [id number] Acct: [id number] Name: LIZA HANCOCK Rep #:[id number] : 1935 87 From: Sixto Braswell DO PCP: Dr. Clinton Fowler DO Status:ADM IN Location: [facility] HGP408- 1 HPI - General General Date of [...] typical of her baseline accordingto her . [facility] Medical History Alzheimer disease AMS (altered mental [...] #30 tabs 12/03/17 [Rx Last Taken 01/11/23] asyxdpmw-nxt-owuhz acid 0.4 mg-lycopene 300 mcg-lutein 250 mcg [...] #30 tabs 09/20/22 [Rx Last Taken 01/11/23] luckvm-mruumqkl-gqecnes 36,000-114,000-180,000 unit capsule,delay rel (Creon) See Rx [...] % (Auto) 61.7, Lymph % (Auto) 27.4, Hale % (Auto) 7.1, Eos % (Auto) 2.0, [...] Clarity Clear, Urine pH 5.0, Ur Specific [place] 1.015, Urine Protein Negative, Urine Glucose (UA) [...] time. GI on consult Hold aspirin and vkpqboxlqy-clyi-vil for now. Clear liquid diet (2) Delirium: [...] patient's , who is her power of photostat operator helper,patient is to be DNR Comfort Care arrest. Charges/Coding Visit Charges Inpatient E&M: 81007 Init Hosp L3 01/12/23 1424 <Electronically signed by Sixto Braswell DO> Cosigner Signature (if applicable): CC: Dr. Sixto Braswell DO; Dr. Clinton Fowler DO~ Signed [facility] Work Phone: 1(978) 280-939803-07-[address] Verma [facility] September 19, 2022 5:39pm Note Date/Time September 18, 2022 1:37 pm [facility] Medical Records Department [address] [place] [address] Progress Note 09/18/22 1336 MR#: [id number] Acct: [id number] Name: LIZA HANCOCK Rep #:[id number] : 1935 87 From: Isa Verma MD PCP: Dr. Clinton Fowler DO Status:ADM IN Location: [place] [address] Subjective Subjective Patient seen and examined. She [...] % (Auto) 57.8, Lymph % (Auto) 28.2, Hale % (Auto) 9.7, Eos % (Auto) 2.9, [...] prophylaxis: Lovenox Charges/Coding Visit Charges Inpatient E&M: 64121 Subs Hosp L2 09/19/22 5415 <Electronically signed by Isa Verma MD> Isa Verma MD Cosigner Signature (if applicable): CC: ~ Signed [facility] Work Phone: 1(858) 532-745803-07-[address] Verma [facility] September 19, 2022 2:34pm Note Date/Time September 19, 2022 2:34 pm [facility] Medical Records Department [address] [place] [address] Progress Note 09/19/22 1426 MR#: [id number] Acct: [id number] Name: LIZA HANCOCK Rep #:[id number] : 1935 87 From: Isa Verma MD PCP: Dr. Clinton Fowler, DO Status:ADM IN Location: [place] [address] 1 Subjective Subjective Patient seen and examined. [...] % (Auto) 59.7, Lymph % (Auto) 25.5, Hale% (Auto) 10.5 H, Eos % (Auto) 2.9, [...] doingwith therapy. Charges/Coding Visit Charges Inpatient E&M: 62123 Subs Hosp L2 09/19/22 1434 <Electronically signed by Isa Verma MD> Isa Verma MD Cosigner Signature (if applicable): CC: ~ Signed [facility] Work Phone: 1(481) 115-923003-06-[address] Verma [facility] September 18, 2022 1:35pm Note Date/Time September 18, 2022 1:[address] [facility] Medical Records Department [address] [place] [address] Telemedicine Confirmation Receipt 09/18/22 MR#: [id number] Acct: [id number] Name: LIZA HANCOCK Rep #:[id number] : 1935 87 From: Isa Verma MD PCP: Dr. Clinton Fowler, DO Status:ADM IN [facility] has confirmed receipt of a request for visit. This document confirms receipt of the order initiating the consult. To find the results of the consultation, please view the patient's reports for the scanned Telemed Consult. [facility] Work Phone: 1(526) 835-978903-05-[address] Chawla [facility] September 17, 2022 4:41pm Note Date/Time September 17, 2022 7:15 am [facility] [facility] Medical Records Department [address] [place] [address] Progress Note - Hospitalist 09/17/22 0707 MR#: [id number] Acct: [id number] Name: LIZA HANCOCK Rep #:[id number] : 1935 87 From: Maria D Chawla MD PCP: Dr. Clinton Fowler, DO Status:ADM IN Location: MS3 [id number] Reason for Visit Reason for Visit: Diagnoses [...] % (Auto) 57.8, Lymph % (Auto) 30.3, Hale % (Auto) 8.6, Eos % (Auto) 1.9, Baso % (Auto) 0.9, Absolute Neuts (auto) 4.3, Absolute Lymphs (auto) 2.26, Nucleated RBC % 0 09/16/22 15:40: PT 13.6, INR 1.1 03/04/23 15:40: Sodium 135 L, Potassium 4.3, Chloride [...] Clarity Clear, Urine pH 5.0, Ur Specific [place] 1.015, Urine Protein Negative, Urine Glucose (UA) [...] No overt focal neurological deficits, handgrip equal, fbkwei-sj-ltiv bilaterally without difficulty, able to lift and [...] culture. Urine culture with gram-negative lester lactose land examiner but UA had nitrate but no leuk [...] documentation, 30minutes Charges/Coding Visit Charges Inpatient E&M: 91290 Subs Hosp L2 09/17/22 1641 <Electronically signed by Maria D Chawla MD> Cosigner Signature (if applicable): CC: ~ Signed [facility] Work Phone: 1(194) 912-655303-05-[address] Paredes [facility] September 17, 2022 5:58am Note Date/Time September 17, 2022 5:58 am [facility] Medical Records Department [address] [place] [address] Progress Note 09/17/22 0555 MR#: [id number] Acct: [id number] Name: LIZA HANCOCK Rep #:[id number] : 1935 87 From: Foreign Paredes MD PCP: Dr. Clinton Fowler, DO Status:ADM IN Location: [place] [address] Progress Note Preliminary blood culture; one with gram positive rods in chains. Patient has no fever or leukocytosis. Likely contaminant. 09/17/22 0558 <Electronically signed by Foreign Paredes MD> Foreign Paredes MD Cosigner Signature (if applicable): CC: ~ Signed [facility] Work Phone: 1(224) 999-618303-04-2023 History and physical note Author Dr. Buckner [facility] September 16, 2022 8:11pm Note Date/Time September 16, 2022 6:43 pm [facility] Medical Records Department [address] [place] [address] H&P Exam - Hospitalist 09/16/22 1839 MR#: [id number] Acct: [id number] Name: LIZA HANCOCK Rep #:[id number] : 1935 87 From: Estrella Buckner DO PCP: Dr. Clinton Fowler DO Status:ADM IN Location: [facility] [id number] HPI - General General Date of Admission: 09/16/22 Date of Service: 09/16/22 Chief Complaint: MS Changes HPI Narrative LIZA HANCOCK, is a 87 F who presented to the emergency department at [facility] with her on 09/16/2022 after she [...] with no injuries. Both falls happened within [id number] period. She ambulates in the home by [...] this prohibited the from taking her home. [facility] Medical History Alzheimer disease AMS (altered mental [...] #30 tabs 12/03/17 [Rx Last Taken 09/15/22] lsgyvwfz-kmk-dvluo acid 0.4 mg-lycopene 300 mcg-lutein 250 mcg [...] PO QHS 06/14/22 [History Last Taken 09/15/22] fmmgmd-chgiopxg-ibaxbst 36,000-114,000-180,000 unit capsule,delay rel (Creon) See Rx [...] % (Auto) 57.8, Lymph % (Auto) 30.3, Hale % (Auto) 8.6, Eos % (Auto) 1.9, [...] Clarity Clear, Urine pH 5.0, Ur Specific [place] 1.015, Urine Protein Negative, Urine Glucose (UA) [...] on admission Charges/Coding Visit Charges Inpatient E&M: 02928 Init Hosp L3 09/16/222010 <Electronically signed by Estrella Buckner DO> Cosigner Signature (if applicable): CC: Dr. Estrella Buckner DO; Dr. Clinton Fowler DO~ Signed [facility] Work Phone: 1(923) 178-773803-04-[address] Thomas [facility] September 16, 2022 6:52pm Note Date/Time September 16, 2022 3:34 pm [facility] Medical Records Department [address] [facility] [place] [address] Emergency Department Summary 09/16/22 MR#: [id number] Acct: [id number] Name: LIZA HANCOCK Rep #:[id number] : 1935 87 From: Moncho Thomas MD [...] unit) capsule 1,000 unit PO DAILY supplement 02/13/17 [History Last Taken 09/15/22] donepezil 5 mg [...] #30 tabs 12/03/17 [Rx Last Taken 09/15/22] jogofscz-wvt-xvxgo acid 0.4 mg-lycopene 300 mcg-lutein 250 mcg [...] PO QHS 06/14/22 [History Last Taken 09/15/22] nwptfx-cimocczh-ilqrpsi 36,000-114,000-180,000 unit capsule,delay rel (Creon) See Rx [...] % (Auto) 57.8 Lymph % (Auto) 30.3 Hale % (Auto) 8.6 Eos % (Auto) 1.9 [...] Color Urine Clarity Urine pH Ur Specific [place] Urine Protein Urine Glucose (UA) Urine Ketones [...] (Auto) Neut % (Auto) Lymph % (Auto) Hale % (Auto) Eos % (Auto) Baso % [...] Clarity Clear Urine pH 5.0 Ur Specific [place] 1.015 Urine Protein Negative Urine Glucose (UA) [...] rate of 73 no acute signs of WA or ischemia. No significant change from a [...] 30 0RF Hold Instructions: Resume on 09/16/21. esuazlgn-ari-LK-lycopen-lutein 1 EACH tablet 1 ea PO BID [...] meals Primary Care Provider: Clinton Fowler Referrals: Dany,Clinton, DO [Primary Care Provider] - Disposition Disposition: Acute Care Hospital [facility] What to do if you have Problems For any increased pain, shortness of breath, bleeding, nausea or vomiting, chestpain, or any unexpected problems, contact your Primary Care Provider. Call [facility] ([phone]) or report to the closest Emergency Room. Call 911 if necessary. 09/16/22 185 <Electronically signed by Moncho Thomas MD> Cosigner Signature (if applicable): CC: Dr. Clinton Fowler DO ~ Signed [facility] Work Phone: 1(140) 911-369403-04-[address] Thomas [facility] September 16, 2022 6:52pm Note Date/Time September 16, 2022 3:34 pm [facility] Medical Records Department [address] [facility] [place] [address] Emergency Department Summary 09/16/22 MR#: [id number] Acct: [id number] Name: LIZA HANCOCK Rep #:[id number] : 1935 87 From: Moncho Thomas MD [...] Prior similar symptoms: No Recent Illness/Hospitalization: [facility] Medical History Alzheimer disease AMS (altered mental [...] #30 tabs 12/03/17 [Rx Last Taken 09/15/22] cwwxiomv-xpm-nmznh acid 0.4 mg-lycopene 300 mcg-lutein 250 mcg [...] PO QHS 06/14/22 [History Last Taken 09/15/22] zrqval-ycyyzqkr-ffborci 36,000-114,000-180,000 unit capsule,delay rel (Creon) See Rx [...] % (Auto) 57.8 Lymph % (Auto) 30.3 Hale % (Auto) 8.6 Eos % (Auto) 1.9 [...] Color Urine Clarity Urine pH Ur Specific [place] Urine Protein Urine Glucose (UA) Urine Ketones [...] (Auto) Neut % (Auto) Lymph % (Auto) Hale % (Auto) Eos % (Auto) Baso % [...] Clarity Clear Urine pH 5.0 Ur Specific [place] 1.015 Urine Protein Negative Urine Glucose (UA) [...] rate of 73 no acute signs of [place] or ischemia. No significant change from a [...] 30 0RF Hold Instructions: Resume on 09/16/21. dwumtfgu-bky-UK-lycopen-lutein 1 EACH tablet 1 ea PO BID [...] Provider] - Disposition Disposition: Acute Care Hospital [facility] What to do if you have Problems For any increased pain, shortness of breath, bleeding, nausea or vomiting, chestpain, or any unexpected problems, contact your Primary Care Provider. Call [facility] ([phone]) or report to the closest Emergency Room. Call 911 if necessary. 09/16/22 185 <Electronically signed by Moncho Thomas MD> Cosigner Signature (if applicable): CC: Dr. Clinton Fowler DO ~ Signed [facility] Work Phone: Discharge summary Author Dr. Verma [facility] September 20, 2022 4:56pm Note Date/Time September 20, 2022 4:56 pm [facility] Medical Records Department [address] [place] [address] Discharge Summary 09/20/22 1643 MR#: [id number] Acct: [id number] Name: LIZA HANCOCK Rep #:[id number] : 1935 87 From: Isa Verma MD PCP: Dr. Clinton Fowler DO Status:ADM IN Location: [place] [address] Providers Date of Admission: 09/16/22 Date of [...] 75 mg PO DAILY #30 tabs 12/03/17 ynqinmvy-gdb-yfnih acid 0.4 mg-lycopene 300 mcg-lutein 250 mcg [...] mg tablet 10 mg PO QHS 06/14/22 xhdcka-ohbmlixw-eicznlh 36,000-114,000-180,000 unit capsule,delay rel (Creon) See Rx [...] Neut % (Auto) 63.8, Lymph % (Auto) 23.9,Hale % (Auto) 9.7, Eos % (Auto) 1.5, [...] 30 0RF Hold Instructions: Resume on 09/16/21. svuqzmsk-rib-XT-lycopen-lutein 1 EACH tablet 1 ea PO BID [...] Health Service Charges/Coding Visit Charges Inpatient E&M: 38092 Disch Hosp >30min 09/20/221655 <Electronically signed by Isa Verma MD> Cosigner Signature (if applicable): CC: Dr. Clinton Fowler DO; Dr. Isa Verma MD~ Signed [facility] Work Phone: [facility] September 20, 2022 4:58pm Note Date/Time September 20, 2022 4:58 pm [facility] Medical Records Department [address] [place] [address] Instructions for Home/Discharge Instructions 09/20/22 1657 MR#: [id number] Acct: [id number] Name: LIZA HANCOCK Rep #:[id number] : 1935 87 From: Isa Verma MD [...] 30 0RF Hold Instructions: Resume on 09/16/21. ffcffjem-kda-BO-lycopen-lutein 1 EACH tablet 1 ea PO BID [...] can be placed): Home Health Service 09/20/22 4002<Electronically signed by Isa Verma MD>Isa Verma MD CC: Dr. Estrella Buckner DO; Dr. Clinton Fowler DO; Dr. Maria D Chawla MD ~ Signed [facility] Work Phone: Discharge summary Author Sixto Braswell [facility] January 14, 2023 1:41pm Note Date/Time January 14, 2023 1:38p m [facility] Medical Records Department [address] [place] [address] Instructions for Home/Discharge Instructions 01/14/23 1335 MR#: [id number] Acct: [id number] Name: LIZA HANCOCK Rep #:[id number] : 1935 87 From: Sixto Braswell DO [...] 80 mg PO QHS Qty: 30 0RF lyxfpuhy-zqq-CU-lycopen-lutein 1 EACH tablet 1 ea PO BID [...] CC: Dr. Clinton Fowler DO ~ Signed [facility] Work Phone: Discharge summary Author Sixto [facility] January 14, 2023 1:43pm Note Date/Time January 14, 2023 1:43p m [facility] Medical Records Department [address] [place] [address] Discharge Summary 01/14/23 1341 MR#: [id number] Acct: [id number] Name: LIZA HANCOCK Rep #:[id number] : 1935 87 From: Sixto Braswell DO PCP: Dr. Clinton Fowler DO Status:ADM IN [facility] Providers Date of Admission: 01/12/23 Primary Care Physician: Dr. Clinton Fowler DO Consultations 01/12/23 16:57 Consult: Gastroenterology Routine Consulting Provider: [facility] Reason for Consult: GI bleed EMERGENT [...] patient's , who is her power of photostat operator helper,patient is to be DNR Comfort Care arrest. [...] 80 mg PO QHS #30 tabs 12/03/17 nzbwmghd-ldd-gymki acid 0.4 mg-lycopene 300 mcg-lutein 250 mcg [...] 81 mg PO BREAKFAST #30 tabs 09/20/22 zmlwbw-efuwzthz-qbpxkrr 36,000-114,000-180,000 unit capsule,delay rel (Creon) See Rx [...] 01/13/23 15:16 TIRSO (Rec: 01/13/23 15:16 TIRSO [id number]) Nutrition Malnutrition Evidence of Malnutrition Exists Yes [...] % (Auto) 54.5, Lymph % (Auto) 31.1, Hale % (Auto) 9.1, Eos % (Auto) 3.6, [...] 80 mg PO QHS Qty: 30 0RF hcxglbpj-ylm-NM-lycopen-lutein 1 EACH tablet 1 ea PO BID [...] Self Care Charges/Coding Visit Charges Inpatient E&M: 25935 Disch Hosp >30min 01/14/23 1343 <Electronically signed by Sixto Braswell DO> Cosigner Signature (if applicable): CC: Dr. Sixto Braswell, DO; Dr. Clinton Fowler, DO~ Signed [facility] Work Phone: evaluation noteNo assessment information available [facility] Work Phone: Evaluation note* Diagnosis Onset Date Resolution Status AMS (altered mental status) acute Hypoglycemia acute Stroke-like symptoms acute Dementia chronic DM (diabetes mellitus), type 2 chronic [facility] Work Phone: evaluation note* Diagnosis Onset Date Resolution Status Hypoglycemia resolved Stroke-like symptoms resolve d Loose stools chronic [facility] Work Phone: Evaluation note* Diagnosis Onset Date Resolution Status Hypoglycemia resolved Stroke-like symptoms resolve d Loose stools chronic Falls acute Hyperglycemia acute Mental status alteration acu te [facility] Work Phone: Evaluation note* Diagnosis Onset Date Resolution Status Hypoglycemia resolved Stroke-like symptoms resolve d Loose stools chronic Falls acute Hyperglycemia acute Mental status alteration acu te CVA (cerebral vascular accident) chronic [facility] Work Phone: Evaluation note* Diagnosis Onset Date Resolution Status Loose stools chronic Hyperglycemia resolved [facility] Work Phone: Evaluation note* Diagnosis Onset Date Resolution Status CVA (cerebral vascular accident) acute Hyperglycemia resolved Exocrine pancreatic insufficiency chronic Acute blood loss anemia acut e Alzheimer disease acute Anemia acute Bright red rectal bleeding a cute CVA (cerebral vascular accident) acute Delirium acute GI bleed acute Weakness acute Exocrine pancreatic insufficiency chronic [facility] Work Phone: Evaluation note* Diagnosis Onset Date Resolution Status Weakness acute Acute blood loss anemia reso lved Bright red rectal bleeding r esolved Delirium resolved GI bleed resolved [facility] Work Phone: Evaluation note* Diagnosis Onset Date Resolution Status Cough acute Viral upper respiratory illness acute Chronic anemia chronic Exocrine pancreatic insufficiency chronic GI bleed resolved [facility] Work Phone: Evaluation note* Diagnosis TOBY (obstructive sleep apnea)- Primary Obstructive sleep apnea (adult) (pediatric) PLMD (periodic limb movement disorder) Periodic limb movement disorder Dementia without behavioral disturbance (Multi) Hypersomnia Hypersomnia, unspecified documented in this encounter [facility] Work Phone: History and physical note Author Dr. Buckner [facility] September 16, 2022 8:11pm Note Date/Time September 16, 2022 6:43 pm [facility] Medical Records Department [address] [place] [address] H&P Exam - Hospitalist 09/16/22 1839 MR#: [id number] Acct: [id number] Name: LIZA HANCOCK Rep #:[id number] : 1935 87 From: Estrella Buckner DO PCP: Dr. Clinton Fowler DO Status:ADM IN Location: [facility] [id number] HPI - General General Date of Admission: 09/16/22 Date of Service: 09/16/22 Chief Complaint: MS Changes HPI Narrative LIZA HANCOCK, is a 87 F who presented to the emergency department at [facility] with her on 09/16/2022 after she [...] with no injuries. Both falls happened within m92-dftg period. She ambulates in the home by [...] this prohibited the from taking her home. [facility] Medical History Alzheimer disease AMS (altered mental [...] #30 tabs 12/03/17 [Rx Last Taken 09/15/22] ttlskyeh-tmf-hjmjo acid 0.4 mg-lycopene 300 mcg-lutein 250 mcg [...] PO QHS 06/14/22 [History Last Taken 09/15/22] zvlmqu-zoynqwrs-byrhizv 36,000-114,000-180,000 unit capsule,delay rel (Creon) See Rx [...] % (Auto) 57.8, Lymph % (Auto) 30.3, Hale % (Auto) 8.6, Eos % (Auto) 1.9, [...] Clarity Clear, Urine pH 5.0, Ur Specific [place] 1.015, Urine Protein Negative, Urine Glucose (UA) [...] on admission Charges/Coding Visit Charges Inpatient E&M: 12875 Init Hosp L3 09/16/222010 <Electronically signed by Estrella Buckner DO> Cosigner Signature (if applicable): CC: Dr. Estrella Buckner, DO; Dr. Clinton Fowler, DO~ Signed [facility] Work Phone: Reason for referral (narrative)No reason for referral [facility] Work Phone: Chief Complaint and Reason [...] No February 04, 2022 3:57pm Power of Video Surveillance Technician No February 04 3:57pm Advance Directive Response Recorded Date/ Time Advance Directives No August 8:15pm Living Will No June 15 1:18am Power of Video Surveillance Technician No June 15, 2022 1:18am Advance Directive Response Recorded Date/ Time Advance Directives No August 8:15pm Living Will No September 16, 2022 3:29pm Power of Video Surveillance Technician No September 16 3:29pm Advance Directive Response Recorded Date/ Time Advance Directives No August 8:15pm Living Will No September 16, 2022 8:19pm Power of Video Surveillance Technician No September 16 8:19pm Advance Directive Response Recorded Date/ Time Advance Directives No August 9:15pm Living Will No September 16, 2022 9:19pm Power of Video Surveillance Technician No September 16 9:19pm Advance Directive Response Recorded Date/ Time Advance Directives No August 9:15pm Living Will No January 12, 2023 4:07pm Power of Video Surveillance Technician No January 12 4:07pm Advance Directive Response Recorded Date/ Time Advance Directives No August 8:15pm Living Will No June 07, 023 11:53pm Power of Video Surveillance Technician No June 07, 2023 11:53pm Advance Directive Response Recorded Date/ Time Advance Directives No August 9:15pm Living Will No June 08, 2 023 12:53am Power of Video Surveillance Technician No June 08, 2023 12:53am Advance Directive Response Recorded Date/ Time Advance Directives No August 9:15pm Advance Directive Response Recorded Date/ Time Do you have a Healthcare Power of Video Surveillance Technician? No February 22, 2025 2:45pm Advance Directives No August 9:15pm Advance Directive Response Recorded Date/ Time Do you have a Healthcare Pow er of Video Surveillance Technician? No February 22, 2025 2:45pm Do you have a Healthcare Pow er of Video Surveillance Technician? Yes March 30, 2025 2:01am Name of Medical Power of Video Surveillance Technician mat--vanessa nia March 30, 2025 2:01am Advance Directives No [...] DO Primary Care Provider Active Dr. Moncho Thoams MD Emergency Provider Active Dr. Estrella Dudley , DO Admit Provider, Other Provider Ac [...] ferring Provider, Other Provider Active Dr. Hung Admaes , DO Attending Provider Active Team Status: Active Member Role Status Dates Dr. Clinton Fowler , DO Primary Care Prov ider, Attending Provider, Referring Provider Active Team Status: Inactive Member Role Status Dates Dr. 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 Clinton Folwer DO Primary Care Provider Active Start: December [...] section and content) DATE CREATED AUTHOR 01/28/2024 [facility] EPIC DATE CREATED AUTHOR AUTHOR'S ORGANIZ ATION 05/06/2025 [facility] DATE CREATED AUTHOR AUTHOR'S ORGANIZ ATION 05/19/2025 [facility] Reason for Visit (unrecogniz ed section and [...] BE BASED ON THE PRIMARY CLINICAL RECORDS. [employer] provides no warranty or guarantee of the accuracy or completeness of information in this document.
[2025-05-21 08:56] LABS: Hematocrit 34.4 % (37-47); Hemoglobin 11.5 g/dL (12.0-15.0); Immature Granulocytes Count 0.100 X10^3/uL (0.0-0.0); Mean Corp Hgb Conc 33.4 g/dL (32-36); Mean Corpuscular Volume 93.0 fL (81-99); Mean Platelet Vol. 10.7 fl (6.2-12.0); NRBC Flagged by Analyzer 0 % (0-5); Platelet Count 241 K/mm3 (150-450); RBC Distribution Width CV 12.5 % (11.6-14.6); RBC Distribution Width SD 43.0 fl (35.1-43.9); Red Blood Count 3.70 M/mm3 (4.2-5.4); White Blood Count 9.6 K/mm3 (4.4-11.0)
[2025-05-21 09:40] LABS: Cholesterol 105 mg/dL (<=200); Low Density Lipoprotein Calc. 49 mg/dL; Triglycerides 79 mg/dL; Very Low Density Lipoprotein 16 mg/dL (5-40); cholesterol:hdl ratio screen 2.65
[2025-05-21 09:44] LABS: Anion Gap 13 (5-15); BUN 45 mg/dL (4-19); BUN/Creat Ratio 40.1 RATIO (10-20); Calcium,Total 9.6 mg/dL (7.6-11.0); Carbon Dioxide 18.9 mmol/L (21.0-32.0); Chloride 102 mmol/L (98-108); Glucose 182 mg/dL (70-99); Potassium 4.0 mmol/L (3.3-5.1); Vitamin B12 1372 pg/mL (180-914); Vitamin D,25 Hydroxy 76.7 ng/mL (30-100)
== END ==
LOC: OLS.WHLEAS 05:00
PROVIDERS: PCP Family Medicine; Visit Provider Internal Medicine
DX: R62.7 Adult failure to thrive (principal); F03.918 Unspecified dementia, unspecified severity, with other behavioral disturbance; M62.561 Muscle wasting and atrophy, not elsewhere classified, right lower leg; M62.562 Muscle wasting and atrophy, not elsewhere classified, left lower leg
CPT/HCPCS: 36415; 80048; 80061; 82306; 82607; 85025

== ENCOUNTER 2025-06-29 13:20 | Inpatient (IN) | payer MEDICARE, OTHER, SELFPAY ==
[2025-06-29] VITALS (9 sets, daily range): BP systolic 116–191; BP diastolic 62–99; PULSE 68–134; RESP 15–18; TEMP 36.3–37.4; O2SAT 95–100; BMI 28.5; BMI 27.3
--- NOTE | 2025-06-29 13:33 | CPS ---
30 NPA airway placed. Patient on NRB.
--- NOTE | 2025-06-29 13:38 | EKG12_ITS ---
Test Reason : Blood Pressure : */* mmHG Vent. Rate : 88 BPM Atrial Rate : 88 BPM P-R Int : 244 ms QRS Dur : 70 ms QT Int : 354 ms P-R-T Axes : * -17 33 degrees QTcB Int : 428 ms Sinus rhythm with 1st degree A-V block Otherwise normal ECG Confirmed by ADAIR CANTOR, CRISTIAN ([id number]), editor trade journal JUDD UMANA ([id number]) on 06/30/2025 1:25:12 PM Referred By: EDPHYS Confirmed By: CRISTIAN BORRERO MD
[2025-06-29 13:49] LABS: Hematocrit 38.5 % (37-47); Hemoglobin 12.2 g/dL (12.0-15.0); Mean Corp Hgb Conc 31.7 g/dL (32-36); Mean Corpuscular Volume 97.7 fL (81-99); Mean Platelet Vol. 11.9 fl (6.2-12.0); POSITIVE DIFFERENTIAL YES; POSITIVE MORPHOLOGY YES; Platelet Count 200 K/mm3 (150-450); RBC Distribution Width CV 12.1 % (11.6-14.6); RBC Distribution Width SD 43.8 fl (35.1-43.9); Red Blood Count 3.94 M/mm3 (4.2-5.4); White Blood Count 16.8 K/mm3 (4.4-11.0)
--- NOTE | 2025-06-29 13:50 | CT_ITS ---
PROCEDURE: CTA HEAD AND NECK W/ CONTRAST 06/29/2025 REASON FOR EXAM: AMS, SEIZURE TECHNIQUE: Procedure Code: CTCTA.HDNCK Modality: CT Procedure: CTA HEAD AND NECK W/ CONTRAST Multiplanar Sagittal and Coronal images were obtained. 3D post processing was performed CONTRAST: Isovue 370 VOLUME: 100 mL One or more dose reduction techniques were used (e.g., Automated exposure control, adjustment of the mA and/or kV according to patient size, use of iterative reconstruction technique). RADIATION DOSE SUMMARY: CTDlvol: 18.8 mGy DLP: 863.5 mGycm COMPARISON: Prior CT scan of the brain done earlier in the day. FINDINGS: An endotracheal tube is seen in-situ. Aortic Arch: Normal size and branching pattern. Mild atherosclerotic plaque. Brachiocephalic and Subclavians: Mild atherosclerotic plaque without significant stenosis. RIGHT Carotid: Right CCA: Right ICA: Mild calcified and soft plaque. Maximum stenosis (NASCET): <30 % Right ECA: Unremarkable. LEFT Carotid: Left CCA: Unremarkable. Left ICA: Mild calcified and soft plaque. Maximum stenosis (NASCET): <30 % Left ECA: Unremarkable. Vertebrals: Codominant. Arise from the subclavians. Both vertebrals form the basilar. RIGHT Vertebral: Unremarkable. LEFT Vertebral: Unremarkable. Anatomy: [place] anatomy is normal.. Atherosclerotic calcification of the cavernous portions of the internal carotid arteries bilaterally. Aneurysm or avm: No intracranial aneurysms or large vascular malformations are identified. Anterior cerebral arteries: Unremarkable: Middle cerebral arteries: Unremarkable. Basilar artery: Ectasia of the tip of the basilar artery. Posterior cerebral arteries: Unremarkable. Other major branches of the posterior circulation: Unremarkable. Major venous structures: Unremarkable. Other findings: Neck: Lungs: Bones: CT/CTA Head AND Neck W/ Contrast IMPRESSION: Minimal plaque formation at the origins of both internal carotid arteries. Atherosclerotic calcific plaques of the cavernous portions of the internal car[place] tid arteries bilaterally. Reading Location: [id number]
--- NOTE | 2025-06-29 13:50 | CT_ITS ---
PROCEDURE: BRAIN/HEAD WITHOUT CONTRAST 06/29/2025 REASON FOR EXAM: AMS, SEIZURE TECHNIQUE: Procedure Code: CTBR Modality: CT Procedure: BRAIN/HEAD WITHOUT CONTRAST Coronal and Sagittal reconstruction series were provided. One or more dose reduction techniques were used (e.g., Automated exposure control, adjustment of the mA and/or kV according to patient size, use of iterative reconstruction technique. RADIATION DOSE SUMMARY: DLP: 95.62 mGycm COMPARISON: CT head 05/05/2025 FINDINGS: No acute hemorrhage. No acute transcortical infarct. Redemonstration of encephalomalacia in the left occipital lobe. Unchanged focal hypoattenuation in the left insula. Left gangliocapsular lacunar infarcts. Patchy nonspecific periventricular and subcortical white matter hypodensities compatible with chronic microvascular ischemic changes. No significant mass effect or brain herniation. Global cerebral volume loss. No hydrocephalus. No extra-axial fluid collection. The basal cisterns are patent. The mastoid air cells are clear. The paranasal sinuses are predominantly clear. The calvarium appears intact. Atherosclerotic calcification of the carotid siphons and intradural vertebral arteries. Partially visualized left nasogastric tube. CT/Brain/Head without Contrast IMPRESSION: No CT evidence of acute intracranial hemorrhage, transcortical infarct, or sign ificant mass effect. 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 Reading Location: [id number]
[2025-06-29 13:58] LABS: SITE Not entered; VBG BASE EXCESS -7 mmol/L (-1.0-3.5); VBG PO2 73 mmHg (25-40); VBG SO2 90 % (50-70); VBG TCO2 23 mmol/L (23-33)
[2025-06-29 14:01] LABS: Prothrombin Time (Protime)PT. 14.8 SECONDS (11.7-14.9)
[2025-06-29 14:02] LABS: Partial Thromboplast Time 23.7 Seconds (24.1-36.2)
[2025-06-29 14:07] LABS: Allen Test Positive; Base Excess -5 mmol/L (-2 to +2); FI02 15.0; PO2 259 mmHG (75-100); SITE R Radial; SO2 100 % (94-98)
[2025-06-29 14:11] LABS: Alcohol, Blood (Medical)-Serum < 10.1 mg/dL (<=10.0)
[2025-06-29 14:14] LABS: Pro- Brain NATRIURETIC PEPTIDE 1257 pg/mL (<=1800)
[2025-06-29 14:17] LABS: AST(SGOT) 27 U/L (<=31); Alanine Aminotransfer ALT/SGPT 23 U/L (<=34); Albumin, Serum 3.8 g/dL (3.4-4.8); Alkaline Phosphatase 101 U/L (35-104); Anion Gap 21 (5-15); BUN 44 mg/dL (4-19); BUN/Creat Ratio 29.8 RATIO (10-20); Calcium,Total 9.9 mg/dL (7.6-11.0); Carbon Dioxide 19.4 mmol/L (21.0-32.0); Chloride 101 mmol/L (98-108); Estimated Creatinine Clearance 25.04 ml/min (50-250); Globulin 2.8 g/dL (2.2-4.2); Glucose 686 mg/dL (70-99); Potassium 4.1 mmol/L (3.3-5.1); Troponin T High Sensitivity 68 ng/L (<=14)
--- NOTE | 2025-06-29 14:30 | EX.ED.DYSGE1 ---
HPI History of Present Illness Chief Complaint: Seizure Narrative Narrative: Chief complaint and HPI: 89-year-old female with past medical history of DM2, pancreatic insufficiency, CKD, TOBY presents via EMS for seizure and altered mental status. History taken by given patient's critical condition. states that the patient is currently at a rehab due to weakness from frequent falls. He states that she did not cooperate with her CPAP overnight. He states today she has appeared more fatigued. He states that while eating lunch in the [place] she had a witnessed tonic-clonic seizure. She has no history of seizures. This was approximately 12 PM. Patient has remained altered and minimally responsive. He denies any fever, chills, shortness of breath, chest pain abdominal pain, nausea, vomiting, dysuria that he knows of. Review of systems: See HPI Medications: As listed on the chart Allergies: As listed on the chart PFSH: Per chart Vital signs: As listed on the chart. Reviewed. Physical exam: Gen: Somnolent Head: Normocephalic, atraumatic Eyes: No sclera icterus, conjunctiva clear, PERRL ENT: TMs clear BL, dry mucous membranes, posterior oropharynx unremarkable, a dentulous Neck: Trachea midline, No JVD CV: Tachycardic, regular rhythm, no murmurs, no peripheral edema Resp: Lungs CTA BL, no w/r/c, on 15 L nonrebreather, nasal trumpet GI: Abd soft, non-distended, does not appear tender : Normal external genitalia Musc: Withdraws on all extremities to pain Skin: Dry, warm, no rash Neuro: Somnolent, GCS 8 (E2, V2, M4) [facility] Medical History GERD (gastroesophageal reflux disease) TIA (transient ischemic attack) GI bleed Alzheimer disease Exocrine pancreatic insufficiency Falls Mental status alteration Loose stools AMS (altered mental status) History of Sjogren's disease RLS (restless legs syndrome) Varicose veins of leg with edema Bowel incontinence Chronic diarrhea Anemia due to stage 3 chronic kidney disease Noninfective gastroenteritis and colitis, unspecified Hearing loss, left Hearing loss, right Non-smoker CPAP (continuous positive airway pressure) dependence History of stroke Type 2 diabetes mellitus without complications Arthritis Dementia CVA (cerebral vascular accident) Nausea and vomiting in adult DM (diabetes mellitus), type 2 Home Medications ?Medication ?Instructions ?Recorded ?Last Taken ?Type omeprazole 40 mg capsule,delayed 40 mg PO DAILY GERD 01/06/14 01/11/23 History release cholecalciferol (vitamin D3) 25 1,000 unit PO DAILY supplement 08/28/16 01/11/23 History mcg (1,000 unit) capsule metformin 500 mg tablet 500 mg PO DAILY blood sugar 08/28/16 01/11/23 History oocislcv-whn-skusw acid 0.4 1 ea PO BID supplement 12/03/18 01/11/23 History mg-lycopene 300 mcg-lutein 250 mcg tablet memantine 10 mg tablet 10 mg PO BID mental health 09/11/21 01/11/23 History ramipril 5 mg capsule 5 mg PO DAILY blood pressure 01/11/22 01/11/23 History aspirin 81 mg chewable tablet 81 mg PO BREAKFAST #30 tabs 09/20/22 01/11/23 Rx acetaminophen 500 mg tablet 500 mg PO BID 06/07/23 Unknown History (Tylenol Extra Strength) krdzxl-qprlomwv-xrsnkjr 3 cap PO .aqc #300 caps 07/24/24 Unknown Rx (pork)36,000-114,000-180k unit capsule,del rel (Creon) atorvastatin 40 mg tablet 80 mg PO DAILY 05/13/25 Unknown History donepezil 10 mg tablet 10 mg PO QHS 05/13/25 Unknown History ropinirole 0.5 mg tablet 0.5 mg PO QHS 05/13/25 Unknown History nitrofurantoin macrocrystal 50 mg 50 mg PO DAILY 05/16/25 Unknown History capsule sennosides 8.6 mg-docusate sodium 2 tab PO BID PRN PRN Constipation 05/20/25 Unknown Rx 50 mg tablet (Stimulant Laxative #0 tabs Plus) ascorbic acid (vitamin C) 500 mg 500 mg PO BID 06/29/25 Unknown History tablet (C-500) d-mannose 500 mg capsule 1,000 mg PO BID 06/29/25 Unknown History ferrous sulfate 325 mg (65 mg 325 mg PO DAILY 06/29/25 Unknown History iron) tablet (FeroSul) glipizide 2.5 mg tablet 2.5 mg PO BID 06/29/25 Unknown History Allergy/AdvReac Type Severity Reaction Status Date / Time pollen extracts Allergy Intermediate PT UNSURE Verified 06/29/25 13:39 OF REACTION Family History Mother Alzheimer disease Brother Alzheimer disease Aunt Alzheimer disease Father Heart disease Surgical History H/O lumpectomy H/O: hysterectomy History of tonsillectomy Social History household members: spouse Smoking Status: Never smoker alcohol intake: never substance use type: does not use EXAM Physical Exam Const Vital Signs: 06/29/25 13:32 06/29/25 13:38 06/29/25 15:17 Temperature 98.5 F Temperature Source Oral Pulse Rate 134 H 84 Respiratory Rate 17 15 Blood Pressure 191/76 H 153/83 H Blood Pressure Mean 114 106 Pulse Ox 96 100 100 Oxygen Delivery Method Non-Rebreather Non-Rebreather Oxygen Flow Rate (L/min) 15 15 MDM MDM MDM Narrative Medical decision making narrative: 89-year-old female with past medical history of DM2, pancreatic insufficiency, CKD, TOBY presents via EMS for seizure and altered mental status. History taken by given patient's critical condition. states that the patient is currently at a rehab due to weakness from frequent falls. He states that she did not cooperate with her CPAP overnight. He states today she has appeared more fatigued. He states that while eating lunch in the [place] she had a witnessed tonic-clonic seizure. She has no history of seizures. This was approximately 12 PM. Patient has remained altered and minimally responsive. On presentation, patient minimally responsive. Active tonic-clonic seizure. Hyperglycemic in the 500s per EMS. Patient given 2 mg IV Ativan and seizure resolved. She is minimally responsive with a GCS of 8. Shortly after seizure resulted, patient became hypoxic requiring 15 L nonrebreather and nasal trumpet. Oxygenation improved but not GCS. NS bolus and IV insulin bolus ordered. Patient is currently DNR CCA. would like to keep the status. Intubation was discussed with the . states that patient is a DO NOT INTUBATE even if it results in . Therefore we will support the patient up until that point. Hectorra ordered. Differential diagnosis includes but is not limited to DKA, HHS, hyperglycemia, electrolyte abnormality, dehydration, UTI, status epilepticus, intracranial bleed or abnormality, CVA, ACS, pneumonia, viral illness. ABG shows acidosis with a pH of 7.28. Bicarb 21.9. CO2 23. Lactic acid 9.3. Troponin 68. Will obtain delta. BNP unremarkable. CMP shows BARBRA with metabolic anion gap and hyperglycemia of 686. This was before insulin. Concern is for DKA. Patient will be placed on insulin drip with another NS bolus. UA positive for UTI but negative for ketones. This is concerning more for HHS than DKA. Urine culture sent. Zosyn ordered. Blood cultures ordered. Normal INR. Beta hydroxybutyrate unremarkable. CT of the head shows no acute intracranial hemorrhage, transcortical infarct, or significant mass effect. 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 CTA head and neck shows minimal plaque formation at the origins of both internal carotid arteries. Atherosclerotic plaques of the cavernous portion of the internal carotid arteries bilaterally. Alcohol level unremarkable. Urine drug screen negative. CBC still pending at this time. I reached out to lab, they are currently working on it as they had to do manual slides. On reevaluation, patient was weaned to nasal cannula and now off oxygen. She has remained minimally responsive with same GCS. Given that we do not have neurology, patient may require transfer to another hospital for continuous EEG monitoring to assess for continued seizure-like activity however I do believe patient is postictal as well as has mental status changes secondary to HHS. This does discussed with the patient's . He does not want the patient transferred to another hospital at any cost. He would rather make her comfort care before then. At this point in time he would like to treat for infection and hyperglycemia to assess if mental status change improves. If it does not he will consider comfort care in the next day or 2. I do think this is reasonable. Patient was discussed with the hospitalist who agrees with the plan and admission. Recommended no insulin drip at this time. This was DC'd. EKG: Interpreted by me/EM physician: EKG shows sinus rhythm with first-degree AV block. Multiple artifacts. Nonspecific ST changes. Heart rate 88 Diagnostic: Interpreted by me/EM physician: Chest x-ray without pneumonia, large effusion, cardiomegaly, pneumothorax. Per radiology borderline cardiomegaly. Blunting of the left costophrenic angle suggestive of a small left pleural effusion with left basilar atelectasis. 60 minutes of critical care time utilized in managing the patient. This is due to high probability of and deterioration of the patient based on the patient's condition and excludes any separately billable procedures. Impression: 1. Acute encephalopathy, multifactorial however suspect metabolic 2. New onset seizure, multifactorial however suspect metabolic 3. HHS 4. Elevated troponin secondary to above 5. UTI Lab Data Labs: Laboratory Results - last 24 hr 06/29/25 06/29/25 13:35 14:55 PT 14.8 INR 1.1 APTT 23.7 L Sodium 141 Potassium 4.1 Chloride 101 Carbon Dioxide 19.4 L Anion Gap 21 H BUN 44 H Creatinine 1.46 H Estim Creat Clear Calc 25.04 L Est GFR (MDRD) Non-Af 34 L BUN/Creatinine Ratio 29.8 H Glucose 686 H* Lactic Acid 9.3 H* Calcium 9.9 Total Bilirubin 0.36 AST 27 ALT 23 Alkaline Phosphatase 101 Troponin T High Sens 68 H* D NT pro BNP II 1257 Total Protein 6.7 Albumin 3.8 Globulin 2.8 Albumin/Globulin Ratio 1.4 b-Hydroxybutyric mmol/L 0.3 Urine Color Yellow Urine Clarity Clear Urine pH 6.0 Ur Specific [place] 1.010 Urine Protein 15 H Urine Glucose (UA) 1000 H Urine Ketones Negative Urine Occult Blood 10 H Urine Nitrite Positive H Urine Bilirubin Negative Urine Urobilinogen Normal Ur Leukocyte Esterase 100 H Urine RBC 0-5 SEEN Urine WBC 25-50 SEEN Ur Squamous Epith Cells 0 SEEN Urine Bacteria 3+ Urine Mucus 0 SEEN Ethyl Alcohol < 10.1 ABG Data ABG results: ABG 06/29/25 06/29/25 13:54 14:04 Specimen Type JUAN ART Sample Site Not entered R Radial pH 7.28 L Bicarbonate Actual 21.9 L Total CO2 23 Base Excess -5 L O2 Saturation 100 H O2 % 15.0 ABG pCO2 46.9 H ABG pO2 259 H Efraín Test Positive VBG pH 7.19 L* VBG pO2 73 H VBG HCO3 22 VBG Total CO2 23 VBG O2 Sat (Calc) 90 H VBG Base Excess -7 L POC Mix VBG pCO2 Pt Tmp 56.6 H O2 Delivery Device Not entered NRB Vent Mode Not entered Crit Call To/Read Back Yes Blood Gas Notified Whom ak Blood Gas Notified Time 13:55:59 Radiography Diagnostic Testing: Clinical Impression(s) from Imaging Studies Brain CT 06/29/25 13:50 IMPRESSION: No CT evidence of acute intracranial hemorrhage, transcortical infarct, or significant mass effect. 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 Reading Location: [id number] Head/Neck CTA 06/29/25 13:50 IMPRESSION: Minimal plaque formation at the origins of both internal carotid arteries. Atherosclerotic calcific plaques of the cavernous portions of the internal carotid arteries bilaterally. Reading Location: [id number] Discharge Plan Triage Chief Complaint: Seizure ED Provider: Renzo Velarde Dx/Rx/DC Orders Prescriptions: No Action ramipril 5 mg capsule 5 mg PO DAILY omeprazole 40 MG capsule 40 mg PO DAILY Patient Comments: STOMACH metformin 500 MG tablet 500 mg PO DAILY cholecalciferol (vitamin D3) 1,000 UNIT capsule 1,000 unit PO DAILY mfndmtea-dpq-IN-lycopen-lutein 1 EACH tablet 1 ea PO BID memantine 10 mg tablet 10 mg PO BID Patient Comments: TAKE 1 TABLET BY MOUTH TWICE DAILY aspirin 81 mg Tablet,Chewable 81 mg PO BREAKFAST Qty: 30 1RF acetaminophen [Tylenol Extra Strength] 500 mg tablet 500 mg PO BID glipizide 2.5 mg tablet 2.5 mg PO BID d-mannose 500 mg capsule 1,000 mg PO BID ascorbic acid (vitamin C) [C-500] 500 mg tablet 500 mg PO BID ferrous sulfate [FeroSul] 325 mg (65 mg iron) tablet 325 mg PO DAILY atorvastatin 40 mg tablet 80 mg PO DAILY donepezil 10 mg tablet 10 mg PO QHS ropinirole 0.5 mg tablet 0.5 mg PO QHS nitrofurantoin macrocrystal 50 mg capsule 50 mg PO DAILY sennosides-docusate sodium [Stimulant Laxative Plus] 8.6-50 mg Tablet 2 tab PO BID PRN PRN (Reason: Constipation) Qty: 0 0RF Creon 36,000-114,000- 180,000 unit capsule,delayed release(DR/EC) 3 cap PO .aqc Qty: 300 11RF Rx Instructions: Take 3 caps with each meal and 1 with snacks. Max 10 caps per day Primary Care Provider: Mello Fowler Referrals: Mello Fowler DO [Primary Care Provider, Family Practice] Print Language: Yoruba
[2025-06-29 14:33] LABS: BETA-HYDROXYBUTYRATE 0.3 mmol/L (0.0-0.3)
[2025-06-29 15:01] LABS: Mucous, Urine 0 SEEN /hpf (<or=2+); Squamous Epithelial Cells - UA 0 SEEN /hpf (5-10)
[2025-06-29 15:10] LABS: Color, Urine Yellow (Yellow); Glucose, Dipstick 1000 mg/dl (Normal); Ketone-Dipstick Negative (Negative); Leukocyte Esterase-Dipstick 100 /ul (Negative); Nitrite-Dipstick Positive (Negative); Occult Blood-Urine 10 /ul (Negative); Protein-Dipstick 15 mg/dl (Negative); Specific Gravity, Urine 1.010 (1.002-1.030); Urine Bilirubin Dipstick Negative (Negative)
[2025-06-29 15:12] LABS: Red Blood Cells-Urine 0-5 SEEN /hpf (0-5)
--- NOTE | 2025-06-29 15:20 | RAD_ITS ---
PROCEDURE: CHEST 1 VIEW (PORTABLE) 06/29/2025 REASON FOR EXAM: AMS, SEIZURE TECHNIQUE: Frontal view of the chest. COMPARISON: May 13, 2025. FINDINGS: Hardware: EKG electrodes are seen. Heart: Borderline cardiomegaly. Lungs: Blunting of the left costophrenic angle suggestive of a small left pleural effusion with the left basilar atelectasis. Bones: Degenerative changes are identified within the thoracic spine. Degenerative changes of both shoulder joints. RAD/Chest 1 View (Portable) IMPRESSION: Blunting of the left costophrenic angle suggestive of a small left pleural effu nichole with left basilar atelectasis. Reading Location: [facility]
[2025-06-29] MEDS: Insulin Lispro 10 UNIT in Syringe 0 ML 6 UNIT IV (15:49)
[2025-06-29] MEDS: Piperacil/Tazobactam 3.375 GM in 0.9% Normal Saline (50mL MB+) 50 ML IV (15:52)
[2025-06-29] MEDS: levETIRAcetam IV 1,000 MG/100 ML BAG 400 MG IV (15:59)
[2025-06-29] MEDS: 0.9% Normal Saline (1000mL) 1,000 ML 1000 ML IV ×2 (16:01→17:40)
--- NOTE | 2025-06-29 16:02 | PCM.HP.STD ---
HPI - General General Date of Admission: 06/29/25 Date of Service: 06/29/25 Chief Complaint: Seizure HPI Narrative LIZA HANCOCK, is a 89 F who presented to [facility] ED on 06/29/2025 after a seizure at her rehab facility. Medical history significant for Alzheimer's dementia with debility, type 2 diabetes mellitus, hypertension and hyperlipidemia. She was hospitalized here from 05/13-05/20 and discharged to [facility] for rehab at that time. Per patient's , patient had been doing fairly well with therapy over the past few weeks and he was hoping to take her home soon. However, was with patient today and she had a witnessed tonic-clonic seizure while they were eating lunch. No prior history of seizures. He noted that she had not worn her CPAP overnight and appeared more fatigued today than previous days. In the ED patient was noted to be altered and minimally responsive, and she then had another tonic clonic seizure here. She was given 2 milligrams of Ativan and the seizure resolved. Patient did become hypoxic and was requiring nonrebreather after the seizure resolved, and her oxygenation improved with this. However, her mentation did not show much improvement. Labs notable for lactic acid 9.3, pH 7.28. Importantly, blood sugar found to be in the high 600s. Beta-hydroxybutyrate normal. She was given 2 L IV fluids with improvement in blood sugar to 500. She was then given 10 units of Humalog with further improvement in sugar to the 300s. UA was infectious appearing. Given these findings, hospitalist was contacted for admission. I saw the patient at bedside in the ED, is present. Patient was laying back in bed and did not respond to verbal stimuli or light touch for me. She otherwise was laying back comfortably in bed, satting well on 2 L nasal cannula and her vital signs were otherwise normal. I clarified with her that she is a DNR CCA DNI. Will be admitted for further management. [facility] Medical History GERD (gastroesophageal reflux disease) TIA (transient ischemic attack) GI bleed Alzheimer disease Exocrine pancreatic insufficiency Falls Mental status alteration Loose stools AMS (altered mental status) History of Sjogren's disease RLS (restless legs syndrome) Varicose veins of leg with edema Bowel incontinence Chronic diarrhea Anemia due to stage 3 chronic kidney disease Noninfective gastroenteritis and colitis, unspecified Hearing loss, left Hearing loss, right Non-smoker CPAP (continuous positive airway pressure) dependence History of stroke Type 2 diabetes mellitus without complications Arthritis Dementia CVA (cerebral vascular accident) Nausea and vomiting in adult DM (diabetes mellitus), type 2 Home Medications ?Medication ?Instructions ?Recorded ?Last Taken ?Type omeprazole 40 mg capsule,delayed 40 mg PO DAILY GERD 01/06/14 01/11/23 History release cholecalciferol (vitamin D3) 25 1,000 unit PO DAILY supplement 08/28/16 01/11/23 History mcg (1,000 unit) capsule metformin 500 mg tablet 500 mg PO DAILY blood sugar 08/28/16 01/11/23 History znpvskxj-htk-oxjnx acid 0.4 1 ea PO BID supplement 12/03/18 01/11/23 History mg-lycopene 300 mcg-lutein 250 mcg tablet memantine 10 mg tablet 10 mg PO BID mental health 09/11/21 01/11/23 History ramipril 5 mg capsule 5 mg PO DAILY blood pressure 01/11/22 01/11/23 History aspirin 81 mg chewable tablet 81 mg PO BREAKFAST #30 tabs 09/20/22 01/11/23 Rx acetaminophen 500 mg tablet 500 mg PO BID 06/07/23 Unknown History (Tylenol Extra Strength) zoogxb-nineynvx-gwaesdn 3 cap PO .aqc #300 caps 07/24/24 Unknown Rx (pork)36,000-114,000-180k unit capsule,del rel (Creon) atorvastatin 40 mg tablet 80 mg PO DAILY 05/13/25 Unknown History donepezil 10 mg tablet 10 mg PO QHS 05/13/25 Unknown History ropinirole 0.5 mg tablet 0.5 mg PO QHS 05/13/25 Unknown History nitrofurantoin macrocrystal 50 mg 50 mg PO DAILY 05/16/25 Unknown History capsule sennosides 8.6 mg-docusate sodium 2 tab PO BID PRN PRN Constipation 05/20/25 Unknown Rx 50 mg tablet (Stimulant Laxative #0 tabs Plus) ascorbic acid (vitamin C) 500 mg 500 mg PO BID 06/29/25 Unknown History tablet (C-500) d-mannose 500 mg capsule 1,000 mg PO BID 06/29/25 Unknown History ferrous sulfate 325 mg (65 mg 325 mg PO DAILY 06/29/25 Unknown History iron) tablet (FeroSul) glipizide 2.5 mg tablet 2.5 mg PO BID 06/29/25 Unknown History Allergy/AdvReac Type Severity Reaction Status Date / Time pollen extracts Allergy Intermediate PT UNSURE Verified 06/29/25 13:39 OF REACTION Family History Mother Alzheimer disease Brother Alzheimer disease Aunt Alzheimer disease Father Heart disease Surgical History H/O lumpectomy H/O: hysterectomy History of tonsillectomy Social History (Updated 06/29/25 @ 17:26 by Michelle Sanchez) household members: spouse housing: senior living Smoking Status: Never smoker alcohol intake: never substance use type: does not use ROS Review of Systems ROS Unobtainable: due to mental status Vital Signs Vital Signs Vital Signs: 06/29/25 13:32 06/29/25 13:38 06/29/25 15:17 Temperature 98.5 F Temperature Source Oral Pulse Rate 134 H 84 Respiratory Rate 17 15 Blood Pressure 191/76 H 153/83 H Blood Pressure Mean 114 106 Pulse Ox 96 100 100 Oxygen Delivery Method Non-Rebreather Non-Rebreather Oxygen Flow Rate (L/min) 15 15 Weight Weight: 73.2 kg Body Mass Index (BMI) 28.5 Physical Exam Const no apparent distress and average body habitus General Appearance: comfortable Orientation / Consciousness: confused and lethargic HEENT normocephalic, head/scalp atraumatic, nasal mucous membranes and turbinates normal and moist oral mucous membranes Eyes PERRL, EOMs intact bilaterally and conjunctivae normal Chest inspection of chest normal Resp normal respiratory effort and no use of accessory muscles Cardio regular rate, regular rhythm, no murmurs and peripheral pulses 2+ throughout GI normal to inspection, nondistended, normoactive bowel sounds, soft to palpation, non-tender and non-distended Back/Spine normal ROM Extremity normal to inspection and no pedal edema Skin no rashes or lesions noted Results Lab / Micro Data 06/29/25 13:35 06/29/25 15:45 Labs: Laboratory Results - last 24 hr 06/29/25 13:35: PT 14.8, INR 1.1, APTT 23.7 L, Sodium 141, Potassium 4.1, Chloride 101, Carbon Dioxide 19.4 L, Anion Gap 21 H, BUN 44 H, Creatinine 1.46 H, Estim Creat Clear Calc 25.04 L, Est GFR (MDRD) Non-Af 34 L, BUN/Creatinine Ratio 29.8 H, Glucose 686 H*, Lactic Acid 9.3 H*, Calcium 9.9, Total Bilirubin 0.36, AST 27, ALT 23, Alkaline Phosphatase 101, Troponin T High Sens 68 H* D, NT pro BNP II 1257, Total Protein 6.7, Albumin 3.8, Globulin 2.8, Albumin/Globulin Ratio 1.4, b-Hydroxybutyric mmol/L 0.3, Ethyl Alcohol < 10.1 06/29/25 14:55: Urine Color Yellow, Urine Clarity Clear, Urine pH 6.0, Ur Specific [place] 1.010, Urine Protein 15 H, Urine Glucose (UA) 1000 H, Urine Ketones Negative, Urine Occult Blood 10 H, Urine Nitrite Positive H, Urine Bilirubin Negative, Urine Urobilinogen Normal, Ur Leukocyte Esterase 100 H, Urine RBC 0-5 SEEN, Urine WBC 25-50 SEEN, Ur Squamous Epith Cells 0 SEEN, Urine Bacteria 3+, Urine Mucus 0 SEEN 06/29/25 15:10: POC Glucose > 500 H* Micro: Microbiology 06/29/25 14:05 Mucosa - Nose SARS-CoV-2, Influenza & RSV (PCR) - Final ABG Data ABG results: ABG 06/29/25 06/29/25 13:54 14:04 Specimen Type JUAN ART Sample Site Not entered R Radial pH 7.28 L Bicarbonate Actual 21.9 L Total CO2 23 Base Excess -5 L O2 Saturation 100 H O2 % 15.0 ABG pCO2 46.9 H ABG pO2 259 H Efraín Test Positive VBG pH 7.19 L* VBG pO2 73 H VBG HCO3 22 VBG Total CO2 23 VBG O2 Sat (Calc) 90 H VBG Base Excess -7 L POC Mix VBG pCO2 Pt Tmp 56.6 H O2 Delivery Device Not entered NRB Vent Mode Not entered Crit Call To/Read Back Yes Blood Gas Notified Whom ak Blood Gas Notified Time 13:55:59 Imaging Radiology Impression Brain CT 06/29/25 13:50 IMPRESSION: No CT evidence of acute intracranial hemorrhage, transcortical infarct, or significant mass effect. 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 Reading Location: [facility] Head/Neck CTA 06/29/25 13:50 IMPRESSION: Minimal plaque formation at the origins of both internal carotid arteries. Atherosclerotic calcific plaques of the cavernous portions of the internal carotid arteries bilaterally. Reading Location: [facility] Chest X-Ray 06/29/25 15:20 IMPRESSION: Blunting of the left costophrenic angle suggestive of a small left pleural effusion with left basilar atelectasis. Reading Location: [facility] Assessment & Plan Assessment/Plan (1) Seizure: (2) UTI (urinary tract infection): (3) Hyperosmolar hyperglycemic state (HHS): PLAN: Plan Patient is an 89-year-old female who presented to [facility] ED on 06/29/2025 after a seizure. 1. Tonic-clonic seizures with acute metabolic encephalopathy suspected secondary to HHS in setting of type 2 diabetes mellitus ? Admit under inpatient status to PCU. Patient with witnessed tonic-clonic seizure at rehab facility and then again shortly after arrival to the ED. Seizure abated in the ED with 2 mg IV Ativan. No prior history of seizures. Most likely secondary to HHS; blood sugar 686 in the ED and beta-hydroxybutyrate negative with normal bicarbonate level so not consistent with DKA. A1c 8.7%, significantly up from A1c 6.5% on 05/13. Acute UTI could be contributing to elevated blood sugars but I suspect pancreas burnout is the primary emergency detail driver of elevated blood sugars. Blood sugars much improved with IV fluid resuscitation and one-time doses of Humalog. Will treat with Lantus 15 units at night and Humalog sliding scale insulin with meals for now, adjust as needed. Avoid sedating medications. Monitor closely. 2. Acute UTI ? UA 100 leukocyte esterase, positive nitrates, 3+ bacteria. Recent urine culture in late April grew Klebsiella sensitive to ceftriaxone. No systemic signs of infection at this time. Will treat with IV ceftriaxone for now, follow-up urine culture. 3. Elevated lactic acid ? Lactic acid 9.3 in the ED, presume secondary to seizure activity as above. Follow-up repeat lactic acid. 4. Elevated troponins ? Troponin trend 68 > 58 > 59. No ischemic changes noted on EKG. Presume demand ischemia secondary to seizure activity above. No further cardiac workup needed. 5. Acute on chronic debility in setting of advanced Alzheimer's dementia ? PT/OT/case management consulted. Patient has been at [facility] since prior to discharge in early May. Suspect she will again need SNF placement on this discharge. Appreciate therapy recommendations. Continue home memantine and donepezil. 6. Hypertension/hyperlipidemia ? Normotensive to mildly hypertensive in the ED. Okay to resume home aspirin and statin. Will hold home lisinopril for now, restart as needed. 7. Chronic iron deficiency anemia ? Hemoglobin 12.2 on admit, stable at baseline. Continue home iron supplement. 8. Exocrine pancreatic insufficiency ? Continue home Creon with meals. 9. GERD ? Continue home PPI. DVT prophylaxis: Lovenox CODE STATUS: DNR-CCA, DNI Expected disposition: TBD Total clinical time spent by myself addressing the patient's medical issues, reviewing all the data, and collaborating with patient's care team: 80 minutes. Charges/Coding Visit Charges Inpatient E&M: 47984 Init Hosp L3
[2025-06-29 16:12] LABS: Barbiturate Urine NEGATIVE (< 200 ng/mL); Benzodiazepine Urine NEGATIVE (< 200 ng/mL); PCP Urine NEGATIVE (< 25 ng/mL); THC Urine NEGATIVE (< 50 ng/mL)
[2025-06-29 16:37] LABS: Total Cells Counted 100 (MANUAL DIFF)
[2025-06-29 16:41] LABS: Differential Indicated MANUAL DIFF
[2025-06-29 16:46] LABS: Magnesium 2.1 mg/dL (1.5-2.2)
[2025-06-29 16:51] LABS: Troponin T High Sens 2 HR 58 ng/L (<=14)
[2025-06-29 17:31] LABS: Anion Gap 15 (5-15); Carbon Dioxide 22.6 mmol/L (21.0-32.0); Chloride 103 mmol/L (98-108); Potassium 4.7 mmol/L (3.3-5.1)
[2025-06-29 17:41] LABS: Reflex Lactate? Y
--- NOTE | 2025-06-29 19:13 | CM.ED ---
Social Work SW responded to alarms in patients room. Patients was in hallway while patient was being treated. SW stayed with patients , tearful at times. SW offered to call additional family, stated he had already called his daughter to let her know what was going on. told SW that patient had been home up until the last few months, that she had gone down twice in the driveway for no apparent reason and he had to call EMS both times. Due to this and patients progressing dementia, placed her at [facility]. states she did well at the SNF, but did want to go home. ED physician spoke with about patients wishes. states that patient was a DNR-CCA and that she would not want intubated. Emotional support provided. Christel Barnes, [employer] OPERATOR, MED SPEC
[2025-06-29 21:51] LABS: Troponin T High Sens 4 HR 59 ng/L (<=14)
[2025-06-29 22:04] LABS: Anion Gap 10 (5-15); Carbon Dioxide 23.2 mmol/L (21.0-32.0); Chloride 112 mmol/L (98-108); Potassium 4.7 mmol/L (3.3-5.1)
[2025-06-30] VITALS (8 sets, daily range): BP systolic 102–138; BP diastolic 56–82; PULSE 77–92; RESP 9–18; TEMP 36.1–36.8; O2SAT 95–99
[2025-06-30 00:48] LABS: Anion Gap 11 (5-15); Carbon Dioxide 24.9 mmol/L (21.0-32.0); Chloride 111 mmol/L (98-108); Potassium 3.7 mmol/L (3.3-5.1)
[2025-06-30 04:17] LABS: Reflex Lactate? Y
[2025-06-30 04:56] LABS: Anion Gap 12 (5-15); Carbon Dioxide 22.3 mmol/L (21.0-32.0); Chloride 111 mmol/L (98-108); Potassium 4.5 mmol/L (3.3-5.1)
[2025-06-30 05:25] LABS: Hematocrit 37.2 % (37-47); Hemoglobin 12.0 g/dL (12.0-15.0); Mean Corp Hgb Conc 32.3 g/dL (32-36); Mean Corpuscular Volume 95.9 fL (81-99); Mean Platelet Vol. 10.9 fl (6.2-12.0); Platelet Count 158 K/mm3 (150-450); RBC Distribution Width CV 12.4 % (11.6-14.6); RBC Distribution Width SD 43.0 fl (35.1-43.9); Red Blood Count 3.88 M/mm3 (4.2-5.4); White Blood Count 11.4 K/mm3 (4.4-11.0)
[2025-06-30 05:54] LABS: Anion Gap 8 (5-15); BUN 34 mg/dL (4-19); BUN/Creat Ratio 31.5 RATIO (10-20); Calcium,Total 9.6 mg/dL (7.6-11.0); Carbon Dioxide 27.7 mmol/L (21.0-32.0); Chloride 112 mmol/L (98-108); Estimated Creatinine Clearance 32.33 ml/min (50-250); Glucose 117 mg/dL (70-99); Potassium 3.8 mmol/L (3.3-5.1)
--- NOTE | 2025-06-30 08:05 | PCM.PN.HOSP ---
Reason for Visit Chief Complaint: Seizure Objective Data Objective Data Vital Signs: Vital Signs Temp Pulse Resp BP Pulse Ox O2 Del Method O2 Flow Rate 97.9 F 79 16 138/82 H 99 Nasal Cannula 2 06/30/25 05:00 06/30/25 05:00 06/30/25 05:00 06/30/25 05:00 06/30/25 05:00 06/30/25 05:00 06/30/25 05:00 Oxygen Flow Rate (L/min) 2 Oxygen Delivery Method Nasal Cannula Weight: 154 lb Body Mass Index (BMI) 27.3 Intake & Output: Intake and Output for Last 24 Hours 06/28/25 06/29/25 06/30/25 23:59 23:59 23:59 Intake Total 2200 / 2200 Output Total 400 / 400 Balance 2199 -400 / -400 Lab / Micro Data 06/30/25 05:17 06/30/25 10:36 Labs: Laboratory Results - last 24 hr 06/29/25 13:35: WBC 16.8 H, RBC 3.94 L, Hgb 12.2, Hct 38.5, MCV 97.7, MCH 31.0, MCHC 31.7 L, RDW Std Deviation 43.8, RDW Coeff of Marcio 12.1, Plt Count 200, MPV 11.9, Neut % (Auto) Not Reportable, Absolute Neuts (auto) 10.2 H, Absolute Lymphs (auto) 4.69 H, Total Counted 100, Neutrophils % (Manual) 46 L, Band Neutrophils % 15 H, Lymphocytes % (Manual) 28, Monocytes % (Manual) 10, Eosinophils % (Manual) 1, Diff Path Review November, PT 14.8, INR 1.1, APTT 23.7 L, Sodium 141, Potassium 4.1, Chloride 101, Carbon Dioxide 19.4 L, Anion Gap 21 H, BUN 44 H, Creatinine 1.46 H, Estim Creat Clear Calc 25.04 L, Est GFR (MDRD) Non-Af 34 L, BUN/Creatinine Ratio 29.8 H, Glucose 686 H*, Hemoglobin A1c 8.7 H, Lactic Acid 9.3 H*, Calcium 9.9, Phosphorus 4.4, Magnesium 2.1, Total Bilirubin 0.36, AST 27, ALT 23, Alkaline Phosphatase 101, Troponin T High Sens 68 H* D, NT pro BNP II 1257, Total Protein 6.7, Albumin 3.8, Globulin 2.8, Albumin/Globulin Ratio 1.4, b-Hydroxybutyric mmol/L 0.3, Ethyl Alcohol < 10.1 06/29/25 14:55: Urine Color Yellow, Urine Clarity Clear, Urine pH 6.0, Ur Specific [place] 1.010, Urine Protein 15 H, Urine Glucose (UA) 1000 H, Urine Ketones Negative, Urine Occult Blood 10 H, Urine Nitrite Positive H, Urine Bilirubin Negative, Urine Urobilinogen Normal, Ur Leukocyte Esterase 100 H, Urine RBC 0-5 SEEN, Urine WBC 25-50 SEEN, Ur Squamous Epith Cells 0 SEEN, Urine Bacteria 3+, Urine Mucus 0 SEEN, Urine Opiates Screen NEGATIVE, U Buprenorphine Qual NEGATIVE, Ur Oxycodone Screen NEGATIVE, Urine Methadone Screen NEGATIVE, Urine Fentanyl Screen NEGATIVE, Ur Barbiturates Screen NEGATIVE, Ur Phencyclidine Scrn NEGATIVE, Ur Amphetamines Screen NEGATIVE, U Benzodiazepines Scrn NEGATIVE, Urine Cocaine Screen NEGATIVE, U Cannabinoids Screen NEGATIVE 06/29/25 15:10: POC Glucose > 500 H* 06/29/25 15:45: Sodium 140, Potassium 4.7, Chloride 103, Carbon Dioxide 22.6, Anion Gap 15, Troponin T Hi Sens 2 Hr 58 H* 06/29/25 17:50: POC Glucose 366 H 06/29/25 20:56: Sodium 146 H, Potassium 4.7, Chloride 112 H, Carbon Dioxide 23.2, Anion Gap 10, Troponin T Hi Sens 4Hr 59 H* 06/29/25 22:11: POC Glucose 231 H 06/30/25 00:02: Sodium 147 H, Potassium 3.7, Chloride 111 H, Carbon Dioxide 24.9, Anion Gap 11, Lactic Acid 2.0 06/30/25 04:20: Sodium 145, Potassium 4.5, Chloride 111 H, Carbon Dioxide 22.3, Anion Gap 12 06/30/25 05:17: WBC 11.4 H, RBC 3.88 L, Hgb 12.0, Hct 37.2, MCV 95.9, MCH 30.9, MCHC 32.3, RDW Std Deviation 43.0, RDW Coeff of Marcio 12.4, Plt Count 158, MPV 10.9, Sodium 148 H, Potassium 3.8, Chloride 112 H, Carbon Dioxide 27.7, Anion Gap 8, BUN 34 H, Creatinine 1.08, Estim Creat Clear Calc 32.33 L, Est GFR (MDRD) Non-Af 49 L, BUN/Creatinine Ratio 31.5 H, Glucose 117 H, Lactic Acid 1.0, Calcium 9.6 06/30/25 05:26: POC Glucose 133 H Micro: Microbiology 06/29/25 14:05 Mucosa - Nose SARS-CoV-2, Influenza & RSV (PCR) - Final ABG Data ABG results: ABG 06/29/25 06/29/25 13:54 14:04 Specimen Type JUAN ART Sample Site Not entered R Radial pH 7.28 L Bicarbonate Actual 21.9 L Total CO2 23 Base Excess -5 L O2 Saturation 100 H O2 % 15.0 ABG pCO2 46.9 H ABG pO2 259 H Efraín Test Positive VBG pH 7.19 L* VBG pO2 73 H VBG HCO3 22 VBG Total CO2 23 VBG O2 Sat (Calc) 90 H VBG Base Excess -7 L POC Mix VBG pCO2 Pt Tmp 56.6 H O2 Delivery Device Not entered NRB Vent Mode Not entered Crit Call To/Read Back Yes Blood Gas Notified Whom ak Blood Gas Notified Time 13:55:59 Radiography Diagnostic Testing: Radiology Impression Brain CT 06/29/25 13:50 IMPRESSION: No CT evidence of acute intracranial hemorrhage, transcortical infarct, or significant mass effect. 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 Reading Location: [id number] Head/Neck CTA 06/29/25 13:50 IMPRESSION: Minimal plaque formation at the origins of both internal carotid arteries. Atherosclerotic calcific plaques of the cavernous portions of the internal carotid arteries bilaterally. Reading Location: [facility] Chest X-Ray 06/29/25 15:20 IMPRESSION: Blunting of the left costophrenic angle suggestive of a small left pleural effusion with left basilar atelectasis. Reading Location: [facility] Physical Exam Narrative Seen and examined Patient has old stroke, left occipital lobe infarct and has residual aphasia, decreased mentation on pur?ed diet General: Alert, orientation cannot be ascertained. Cooperative HEENT: Atraumatic, PERRLA, EOMI, Normocephalic. Oral: Dysphagia. On modified diet no Gingival or Mucosal Lesions/ Ulcerations Neck: Supple, No JVD, Negative Carotid Bruits Chest wall/Lungs: Air entry diminished in bilateral lung bases. No crepitation/rhonchi Cardiovascular: Regular rate and rhythm, Normal S1,S2, systolic murmur Abdomen: Bowel Sounds Present, Soft, Non Tender, Non-Distended : Triana catheter, no renal angle tenderness. No suprapubic tenderness. Extremities: No edema, Capillary Refill Less than 3 Seconds Skin: No rashes, No breakdown Musculoskeletal: No Tenderness to Palpation of Joints or Extremities Neurological: Left-sided facial droop, aphasia. Decreased cognitive skill. Does not follow command for NIH stroke scale. GCS E4, V3, M5, 12 Psych/Mental Status: Flat affect Assessment & Plan Assessment/Plan (1) Seizure: (2) UTI (urinary tract infection): (3) Hyperosmolar hyperglycemic state (HHS): PLAN: Plan Patient is an 89-year-old female who presented to [facility] ED on 06/29/2025 after a seizure. Patient with witnessed tonic-clonic seizure at rehab facility and then again shortly after arrival to the ED. Seizure abated in the ED with 2 mg IV Ativan. No prior history of seizures. 1. Tonic-clonic seizures with acute metabolic encephalopathy suspected secondary to HHS in setting of type 2 diabetes mellitus with hyponatremia and hypochloremia ? Admit under inpatient status to PCU. Most likely secondary to HHS; blood sugar 686 in the ED and beta-hydroxybutyrate negative with normal bicarbonate level so not consistent with DKA. A1c 8.7%, significantly up from A1c 6.5% on 05/13. 06/30: Exact etiology of tonic-clonic seizure unclear but possible from the residual stroke of left occipital lobe infarct or metabolic insult. Last glucose 117. Hypernatremia and hyperchloremia. IV fluid D5W ordered. Lantus and insulin ordered. Accu-Chek before meals and at bedtime with Humalog sliding scale coverage and hypoglycemia protocol. MRI brain without contrast and EEG ordered for evaluation of seizure. Neuro consulted. Empirically started on IV Keppra as patient is high risk because of residual scar tissue from his stroke. 2. Acute UTI, patient could not elicit history about urinary tract symptoms because of aphasia ? UA 100 leukocyte esterase, positive nitrates, 3+ bacteria. Recent urine culture in late April grew Klebsiella sensitive to ceftriaxone. No systemic signs of infection at this time. Continue IV ceftriaxone. Urine culture pending 3. Elevated lactic acid ? Lactic acid 9.3 in the ED, presume secondary to seizure activity as above. Follow-up repeat lactic acid. 06/30: Repeat lactic acid normal. 4. Elevated troponins ? Troponin trend 68 > 58 > 59. No ischemic changes noted on EKG. Presume demand ischemia secondary to seizure activity above. No further cardiac workup needed. 5. Acute on chronic debility in setting of advanced Alzheimer's dementia ? PT/OT/case management consulted. Patient has been at [facility] since prior to discharge in early May. Suspect she will again need SNF placement on this discharge. Appreciate therapy recommendations. Continue home memantine and donepezil. 6. Hypertension/hyperlipidemia ? Normotensive to mildly hypertensive in the ED. Okay to resume home aspirin and statin. 06/30: Continue holding lisinopril. 7. Chronic iron deficiency anemia ? Hemoglobin 12.2 on admit, stable at baseline. Continue home iron supplement. 8. Exocrine pancreatic insufficiency ? Continue home Creon with meals. 9. GERD ? Continue home PPI. DVT prophylaxis: Lovenox CODE STATUS: DNR-CCA, DNI Total time of the visit including total time spent in counseling or coordination of care, (more than 50% of the total time, spent in obtaining medical information from nurses and other ancillary care providers ,explaining to the patient about labs, imaging, diagnosis and management of active complex medical conditions), , review of labs and imaging is 35 minutes. Charges/Coding Addendum Addendum: Total time of the visit including total time spent in counseling or coordination of care, (more than 50% of the total time, spent in obtaining medical information from nurses and other ancillary care providers ,explaining to the patient about labs, imaging, diagnosis and management of active complex medical conditions), evaluation of seizure, HHS and past history, review of labs and imaging is 35 minutes.
[2025-06-30] MEDS: Memantine Hydrochloride 10 MG Tablet PO (08:42)
[2025-06-30] MEDS: Creon 24,000 unit DR Capsule 3 CAP PO (08:42)
[2025-06-30] MEDS: Cholecalciferol (VIT D3) 25 MCG TABLET (1,000 UNITS) PO (08:43)
[2025-06-30] MEDS: Creon 12,000 unit DR CapSULE 3 CAP PO ×2 (08:45→17:21)
[2025-06-30] MEDS: 0.9% Saline Lock 10 ML Syringe IV ×2 (09:06→17:27)
--- NOTE | 2025-06-30 11:09 | CASEMGMT ---
Social Work SW spoke with the in the patients room. The reported the DC plan would be for the patient to return to [facility]. He reported they use a eric with his . He reported on good days therapy can get her to walk. He reported she has been there since May 19. He reported prior to [facility] his fell twice in their driveway. He reported their daughter is handicap and uses a WC and rollator. He reported their main living area is upstairs. There is 16 steps. He reported they have a rollator, FWW, single and quad cane and walk-in shower and seat. He reported his is new to oxygen but has been using a C-Pap. MEIR Howell
[2025-06-30 11:22] LABS: Anion Gap 11 (5-15); Carbon Dioxide 24.5 mmol/L (21.0-32.0); Chloride 112 mmol/L (98-108); Potassium 4.1 mmol/L (3.3-5.1)
[2025-06-30 14:33] LABS: Neutrophil-Segmented 47 % (47-70)
[2025-06-30 14:35] LABS: Other WBC Type 1 %
--- NOTE | 2025-06-30 15:03 | MRI_ITS ---
PROCEDURE: MRI BRAIN WITHOUT CONTRAST 06/30/2025 REASON FOR EXAM: SEIZURES TECHNIQUE: Procedure Code: MRIBR Modality: MR Procedure: BRAIN WITHOUT CONTRAST Multiplanar and multisequential MRI of the brain was performed without contrast. COMPARISON: CT head/angiography 06/29/2025. FINDINGS: No regions of abnormal restricted diffusion to indicate recent infarct. No evidence of acute intracranial hemorrhage, extra-axial collection, mass-effect, or other acute abnormality. Advanced generalized brain parenchymal volume loss with associated ex vacuo ventricular enlargement. Moderate-advanced chronic small-vessel ischemic-gliotic changes, with multiple scattered chronic lacunar infarcts mostly involving the bilateral cerebellar hemispheres. Small area of chronic cortical infarct with encephalomalacia/gliosis in the posterior left parieto-occipital lobe region. Grossly preserved major vascular flow voids. Prior right orbital cataract surgery. Mild mucosal thickening in the left ethmoid air cells. Trace nonspecific scattered fluid in the dependent mastoid air cells. MRI/Brain without Contrast IMPRESSION: No acute intracranial abnormality or specific epileptogenic focus. Advanced generalized brain parenchymal volume loss and chronic small-vessel isc hemic-gliotic changes. Multiple scattered chronic lacunar infarcts particularly involving the bilateral cerebellar hemispheres. Small area of chronic cortical infarct in the posterior left parieto-occipital region. Reading Location: [id number]
[2025-06-30 16:19] LABS: Anion Gap 9 (5-15); Carbon Dioxide 23.2 mmol/L (21.0-32.0); Chloride 114 mmol/L (98-108); Potassium 4.1 mmol/L (3.3-5.1)
[2025-06-30] MEDS: levETIRAcetam IV 1,000 MG/100 ML BAG 400 MG IV (17:27)
[2025-06-30] MEDS: Dextrose 5%-Water (1000mL Bag) 1,000 ML 75 ML IV (17:37)
[2025-07-01] VITALS (7 sets, daily range): BP systolic 119–132; BP diastolic 60–82; PULSE 57–78; RESP 14–18; TEMP 35.5–37.2; O2SAT 93–100
[2025-07-01 06:38] LABS: Hematocrit 32.5 % (37-47); Hemoglobin 10.6 g/dL (12.0-15.0); Immature Granulocytes Count 0.070 X10^3/uL (0.0-0.0); Mean Corp Hgb Conc 32.6 g/dL (32-36); Mean Corpuscular Volume 94.8 fL (81-99); Mean Platelet Vol. 12.0 fl (6.2-12.0); NRBC Flagged by Analyzer 0 % (0-5); Platelet Count 128 K/mm3 (150-450); RBC Distribution Width CV 12.2 % (11.6-14.6); RBC Distribution Width SD 42.3 fl (35.1-43.9); Red Blood Count 3.43 M/mm3 (4.2-5.4); White Blood Count 9.3 K/mm3 (4.4-11.0)
[2025-07-01] MEDS: Dextrose 5%-Water (1000mL Bag) 1,000 ML 75 ML IV (07:03)
[2025-07-01 07:23] LABS: AST(SGOT) 23 U/L (<=31); Alanine Aminotransfer ALT/SGPT 14 U/L (<=34); Albumin, Serum 3.1 g/dL (3.4-4.8); Alkaline Phosphatase 72 U/L (35-104); Anion Gap 9 (5-15); BUN 31 mg/dL (4-19); BUN/Creat Ratio 31.9 RATIO (10-20); Bilirubin, Direct 0.17 mg/dL (0.00-0.30); Calcium,Total 9.0 mg/dL (7.6-11.0); Carbon Dioxide 22.6 mmol/L (21.0-32.0); Chloride 107 mmol/L (98-108); Estimated Creatinine Clearance 36.00 ml/min (50-250); Globulin 2.4 g/dL (2.2-4.2); Glucose 286 mg/dL (70-99); Potassium 3.9 mmol/L (3.3-5.1)
--- NOTE | 2025-07-01 09:01 | CON.PCM.NE_ITS ---
Assessment and Plan: Neuro Assessment/Plan LIZA HANCOCK is a 89 F with a past medical history of Alzheimer's dementia with debility, type 2 diabetes mellitus, hypertension and hyperlipidemia, being evaluated by Teleneurology for new onset seizure. History consistent with seizure. Exam is somnolent but imaging is benign. Concern that this seizure may have been provoked, likely from UTI and elevated glucose. Given first time event and benign imaging results, will recommend holding on ASM unless EEG with atypical findings. - pending EEG - hold on additional Keppra given provoked nature of the seizures and that she is improved - continue seizure precautions. I personally attended this patient and spent a total time of 45minutes evaluating this patient including clinical assessment, review of chart, medical history imaging, and determining appropriate treatment and workup. HPI Consult Data Date of Consult: 07/01/25 HPI Narrative HPI Narrative: LIZA HANCOCK, is a 89 F who presented to [facility] ED on 06/29/2025 after a seizure at her rehab facility. Medical history significant for Alzheimer's dementia with debility, type 2 diabetes mellitus, hypertension and hyperlipidemia. She was hospitalized here from 05/13-05/20 and discharged to [place] for rehab at that time. Per patient's , patient had been doing fairly well with therapy over the past few weeks and he was hoping to take her home soon. However, was with patient today and she had a witnessed tonic-clonic seizure while they were eating lunch. No prior history of seizures. He noted that she had not worn her CPAP overnight and appeared more fatigued today than previous days. In the ED patient was noted to be altered and minimally responsive, and she then had another tonic clonic seizure here. She was given 2 milligrams of Ativan and the seizure resolved. Patient did become hypoxic and was requiring nonrebreather after the seizure resolved, and her oxygenation improved with this. However, her mentation did not show much improvement. Labs notable for lactic acid 9.3, pH 7.28. Importantly, blood sugar found to be in the high 600s. Beta-hydroxybutyrate normal. She was given 2 L IV fluids with improvement in blood sugar to 500. She was then given 10 units of Humalog with further improvement in sugar to the 300s. UA was infectious appearing. Given these findings, hospitalist was contacted for admission. I saw the patient at bedside in the ED, is present. Patient was laying back in bed and did not respond to verbal stimuli or light touch for me. She otherwise was laying back comfortably in bed, satting well on 2 L nasal cannula and her vital signs were otherwise normal. I clarified with her that she is a DNR CCA DNI. Will be admitted for further management. Neurologic History She lives in a half-way for the last couple months. She was having falls outside the house but furniture surfs around the house. Did need help getting dressed, could feed herself but needed someone to get her food. She has a stroke in 2018, and lost a lot of words but can speak occasionally but there is aphasia. was there when seizure happened. was feeding her and suddenly bent and spit out the food and was shaking. Unclear if patient's eyes were open or closed, she shook for aobut 2 min per . Patient was non-responsive after the event. NEver had a seizure before. BG was previously well controlled and never been that high before. Family did not notice change in behavior recently. Pt still not back to normal and very altered Exam -? General: Laying comfortably in bed; in no acute distress. -? HENT: Normal oropharynx and mucosa. Normal external appearance of ears and nose. Exophthalmos. -? Neck: Supple, no pain or tenderness -? CV:? No peripheral edema. -? Pulmonary:? Normal respiratory effort. -? Ext: No cyanosis, edema, or deformity -? Skin: No rash. Normal palpation of skin.? -? Musculoskeletal: full range of motion; no joint tenderness. Normal digits and nails by inspection. No clubbing. -? NEURO: -? Mental Status: The patient was awake intermittently but very drowsy. Will say single words and attempts to intermittnetly follow commands. -? Language: speech is slurred and slow but comprehension intermittently intact and repetition intact -? Cranial Nerves: R gaze preference, no facial asymmetry -? Motor: arms antigravity b/l and move volitionally b/l LE not antigravity but withdraws to noxious stim b/l -? Sensation- withdraws noxious stim b/l -? Coordination: unable to obtain -? Gait- deferred [facility] Medical History GERD (gastroesophageal reflux disease) TIA (transient ischemic attack) GI bleed Alzheimer disease Exocrine pancreatic insufficiency Falls Mental status alteration Loose stools AMS (altered mental status) History of Sjogren's disease RLS (restless legs syndrome) Varicose veins of leg with edema Bowel incontinence Chronic diarrhea Anemia due to stage 3 chronic kidney disease Noninfective gastroenteritis and colitis, unspecified Hearing loss, left Hearing loss, right Non-smoker CPAP (continuous positive airway pressure) dependence History of stroke Type 2 diabetes mellitus without complications Arthritis Dementia CVA (cerebral vascular accident) Nausea and vomiting in adult DM (diabetes mellitus), type 2 Home Medications ?Medication ?Instructions ?Recorded ?Last Taken ?Type omeprazole 40 mg capsule,delayed 40 mg PO DAILY GERD 0 01/06/14 01/11/23 History release cholecalciferol (vitamin D3) 25 1,000 unit PO DAILY messer pplement 08/28/16 01/11/23 History mcg (1,000 unit) capsule metformin 500 mg tablet 500 mg PO DAILY blood sugar 08/28/16 01/11/23 History gckgrdbm-yye-cnywt acid 0.4 1 ea PO BID supplement 01/11/23 History mg-lycopene 300 mcg-lutein 250 mcg tablet memantine 10 mg tablet 10 mg PO BID mental health 0 09/11/21 01/11/23 History ramipril 5 mg capsule 5 mg PO DAILY blood pressure 01/11/22 01/11/23 History aspirin 81 mg chewable tablet 81 mg PO BREAKFAST #30 t abs 09/20/22 01/11/23 Rx acetaminophen 500 mg tablet 500 mg PO BID 06/07/23 Unk nown History (Tylenol Extra Strength) csrgwe-zprwwonc-atnrbnr 3 cap PO .aqc #300 caps 04/09 Unknown Rx (pork)36,000-114,000-180k unit capsule,del rel (Creon) atorvastatin 40 mg tablet 80 mg PO DAILY 05/13/25 Unkn own History donepezil 10 mg tablet 10 mg PO QHS 05/13/25 Unknow n History ropinirole 0.5 mg tablet 0.5 mg PO QHS 05/13/25 Unkno wn History nitrofurantoin macrocrystal 50 mg 50 mg PO DAILY 05/16 Unknown History capsule sennosides 8.6 mg-docusate sodium 2 tab PO BID PRN PRN Constipation 05/20/25 Unknown Rx 50 mg tablet (Stimulant Laxative #0 tabs Plus) ascorbic acid (vitamin C) 500 mg 500 mg PO BID 5 Unknown History tablet (C-500) d-mannose 500 mg capsule 1,000 mg PO BID 06/29/25 Unk nown History ferrous sulfate 325 mg (65 mg 325 mg PO DAILY 06/29/25 Unknown History iron) tablet (FeroSul) glipizide 2.5 mg tablet 2.5 mg PO BID 06/29/25 Unkno wn History Allergy/AdvReac Type Severity Reaction Status Date / Time pollen extracts Allergy Intermediate PT UNSURE Verified 06/29/25 13:39 OF REACTION Family History Mother Alzheimer disease Brother Alzheimer disease Aunt Alzheimer disease Father Heart disease Surgical History H/O lumpectomy H/O: hysterectomy History of tonsillectomy Social History (Updated 06/29/25 @ 17:26 by Michelle Sanchez) household members: spouse housing: half-way Smoking Status: Never smoker alcohol intake: never substance use type: does not use Vital Signs Vital Signs Vital Signs: 06/30/25 11:01 06/30/25 14:00 06/30/25 14:22 Temperature 97.6 F L Temperature Source Temporal Pulse Rate 77 Pulse Strength Weak (1+) Respiratory Rate 13 Respiratory Effort Normal Non-Labored Respiratory Depth Normal Respiratory Pattern Normal Blood Pressure 102/71 Blood Pressure Mean 81 Blood Pressure Source Monitor Blood Pressure Position Semi-Fowlers Blood Pressure Location Right Arm Pulse Ox 98 Oxygen Delivery Method Nasal Cannula Nasal Cannula Oxygen Flow Rate (L/min) 2 2 06/30/25 15:21 06/30/25 21:02 06/30/25 21:02 Temperature 98.3 F Temperature Source Axillary Pulse Rate 86 Pulse Strength Respiratory Rate 18 Respiratory Effort Normal Non-Labored Respiratory Depth Normal Respiratory Pattern Normal Blood Pressure 121/74 H Blood Pressure Mean 89 Blood Pressure Source Monitor Blood Pressure Position Semi-Fowlers Blood Pressure Location Left Arm Pulse Ox 95 96 Oxygen Delivery Method Nasal Cannula Nasal Cannula Nasal Cannula Oxygen Flow Rate (L/min) 2 96 2 06/30/25 21:03 06/30/25 21:30 07/01/25 02:12 Temperature Temperature Source Pulse Rate Pulse Strength Weak (1+) Respiratory Rate Respiratory Effort Respiratory Depth Respiratory Pattern Blood Pressure Blood Pressure Mean Blood Pressure Source Blood Pressure Position Blood Pressure Location Pulse Ox 95 98 Oxygen Delivery Method Nasal Cannula Nasal Cannula Oxygen Flow Rate (L/min) 2 2 07/01/25 02:16 07/01/25 03:58 07/01/25 07:46 Temperature 97.3 F L Temperature Source Temporal Pulse Rate 67 Pulse Strength Weak (1+) Respiratory Rate 18 Respiratory Effort Normal Non-Labored Respiratory Depth Normal Respiratory Pattern Normal Blood Pressure 132/82 H Blood Pressure Mean 98 Blood Pressure Source Monitor Blood Pressure Position Semi-Fowlers Blood Pressure Location Left Arm Pulse Ox 97 94 Oxygen Delivery Method Room Air Room Air Oxygen Flow Rate (L/min) 07/01/25 08:29 Temperature Temperature Source Pulse Rate Pulse Strength Respiratory Rate Respiratory Effort Normal Non-Labored Respiratory Depth Normal Respiratory Pattern Normal Blood Pressure Blood Pressure Mean Blood Pressure Source Blood Pressure Position Blood Pressure Location Pulse Ox Oxygen Delivery Method Room Air Oxygen Flow Rate (L/min) Weight Weight: 69.853 kg Body Mass Index (BMI) 27.3 EEG Results Procedure Details EEG Procedure Details: LIZA HANCOCK is a 89 year old F with a past medical history of , who presents for evaluation of Electroencephalogram on DATE at TIME Lab / Micro Data 07/01/25 06:13 07/01/25 06:13 Labs: Laboratory Results - last 24 hr 06/29/25 13:35: Absolute Neuts (auto) 7.9 H, Absolute Lymphs (auto) 7.73 H, Neutrophils % (Manual) 47, Band Neutrophils % Not Reportable, Lymphocytes % (Manual) 46 H, Monocytes % (Manual) 6, Other Cells % 1, Diff Path Review Reviewed, Atypical Lymphocytes RARE 06/30/25 10:36: Sodium 147 H, Potassium 4.1, Chloride 112 H, Carbon Dioxide 24.5, Anion Gap 11 06/30/25 11:29: POC Glucose 211 H 06/30/25 15:07: Sodium 147 H, Potassium 4.1, Chloride 114 H, Carbon Dioxide 23.2, Anion Gap 9 06/30/25 17:20: POC Glucose 146 H 06/30/25 21:01: POC Glucose 269 H 07/01/25 06:13: WBC 9.3, RBC 3.43 L, Hgb 10.6 L, Hct 32.5 L, MCV 94.8, MCH 30.9, MCHC 32.6, RDW Std Deviation 42.3, RDW Coeff of Marcio 12.2, Plt Count 128 L, MPV 12.0, Immature Gran % (Auto) 0.800, Neut % (Auto) 66.1, Lymph % (Auto) 21.6, [place] % (Auto) 7.1, Eos % (Auto) 3.4, Baso % (Auto) 1.0, Absolute Neuts (auto) 6.1, Absolute Lymphs (auto) 2.00, Nucleated RBC % 0, Sodium 139, Potassium 3.9, Chloride 107, Carbon Dioxide 22.6, Anion Gap 9, BUN 31 H, Creatinine 0.97, Estim Creat Clear Calc 36.00 L, Est GFR (MDRD) Non-Af 56 L, BUN/Creatinine Ratio 31.9 H, Glucose 286 H, Calcium 9.0, Total Bilirubin 0.42, Direct Bilirubin 0.17, AST 23, ALT 14, Alkaline Phosphatase 72, Total Protein 5.4 L, Albumin 3.1 L, Globulin 2.4 07/01/25 06:29: POC Glucose 255 H Micro: Microbiology 06/29/25 14:55 Urine Catheter - Catheter Urine Culture - Preliminary Escherichia coli Gram negative lester Imaging Radiology Impression Brain MRI 06/30/25 15:03 IMPRESSION: No acute intracranial abnormality or specific epileptogenic focus. Advanced generalized brain parenchymal volume loss and chronic small-vessel ischemic-gliotic changes. Multiple scattered chronic lacunar infarcts particularly involving the bilateral cerebellar hemispheres. Small area of chronic cortical infarct in the posterior left parieto-occipital region. Reading Location: [id number] Active Medications Active Medications Active Medications: Current Medications Generic Name Dose Route Start Last Admin Trade Name Freq PRN Reason Stop Dose Admin Acetaminophen 500 mg 06/29/25 22:00 06/30/25 22:38 Acetaminophen 500 Mg Tablet PO Not Given BID RANDY Ascorbic Acid 500 mg 06/29/25 22:00 06/30/25 22:39 Ascorbic Acid 500 Mg Tablet PO Not Given BID RANDY Aspirin 81 mg 06/30/25 08:00 06/30/25 08:33 Aspirin 81 Mg Tab.Chew PO 81 mg BREAKFAST RANDY Administration Atorvastatin Calcium 40 mg 06/30/25 10:00 06/30/25 08:35 Atorvastatin Calcium 40 Mg Tablet PO 40 mg DAILY RANDY Administration Cholecalciferol 25 mcg 06/30/25 10:00 06/30/25 08:43 Cholecalciferol (Vit D3) 25 Mcg Tablet (1,000 Units) PO 25 mcg DAILY RANDY Administration Donepezil HCl 10 mg 06/29/25 22:00 06/30/25 22:37 Donepezil Hcl 10 Mg Tablet PO Not Given QHS RANDY Enoxaparin Sodium 40 mg 06/30/25 10:00 06/30/25 08:40 Enoxaparin 40 Mg/0.4 Ml Syringe SC 40 mg DAILY RANDY Administration Ferrous Sulfate 325 mg 06/30/25 12:00 06/30/25 11:33 Ferrous Sulfate 325 Mg Tablet PO Not Given DAILY@1200 RANDY Glucagon 1 mg 06/29/25 18:04 Glucagon 1 Mg/Ml Syringe IM X1 PRN Hypoglycemia Protocol Ceftriaxone Sodium 1 gm in 50 mls @ 100 mls/hr 06/30/25 10:00 06/30/25 09:36 Rocephin IV Infused Q24 RANDY Infusion Sodium Chloride 250 mls @ 15 mls/hr 06/29/25 16:57 IV .[id number] PRN Saline Flush Sodium Chloride 250 mls @ 15 mls/hr 06/29/25 16:57 IV .[id number] PRN Additional IVPB Infusion Dextrose 250 mls @ 0 mls/hr 06/29/25 18:04 Dextrose 10%-Water IV .Q0M PRN HYPOGLYCEMIA Protocol As Directed Dextrose 1,000 mls @ 75 mls/hr 06/30/25 15:15 07/01/25 07:03 IV 07/01/25 17:54 75 mls/hr .[id number] RANDY Administration Levetiracetam 500 mg/ Sodium 105 mls @ 420 mls/hr 07/01/25 10:00 Chloride IV Q12 RANDY Insulin Glargine 8 unit 07/01/25 10:00 Insulin Glargine-Yfgn 100 Unit/Ml Pen SC DAILY RANDY Insulin Human Lispro 0 unit 06/29/25 22:00 07/01/25 06:32 Insulin Lispro 100 Unit/Ml Insuln.Pen SC 4 u ACHS RANDY Administration Protocol Melatonin 3 mg 06/29/25 16:55 Melatonin 3 Mg Tablet PO QHS PRN PRN INSOMNIA Memantine 10 mg 06/29/25 22:00 06/30/25 22:38 Memantine Hydrochloride 10 Mg Tablet PO Not Given BID RANDY Ondansetron HCl 4 mg 06/29/25 16:55 Ondansetron 4 Mg/2 Ml Vial IV Q8H PRN PRN NAUSEA/VOMITING Pancrelipase 3 cap 06/30/25 08:00 07/01/25 06:01 Creon 24,[address] Capsule PO Not Given TIDAC RANDY Pancrelipase 3 cap 06/29/25 18:06 Creon 24,[address] Capsule PO DAILY PRN PRN WITH SNACKS Pancrelipase 3 cap 06/29/25 18:07 Creon 12,[address] Capsule PO DAILY PRN PRN WITH SNACKS Pancrelipase 3 cap 06/29/25 17:00 06/30/25 17:21 Creon 12,[address] Capsule PO 3 cap TIDCM RANDY Administration Pantoprazole Sodium 40 mg 06/29/25 22:00 06/30/25 22:38 Pantoprazole Sodium 40 Mg Tablet PO Not Given BID RANDY Pramipexole Dihydrochloride 0.25 mg 06/29/25 22:00 06/30/25 22:38 Pramipexole Di-Hcl 0.25 Mg Tablet PO Not Given QHS [facility] Sodium Chloride 10 - 40 ml 06/29/25 16:57 06/30/25 17:27 0.9% Saline Lock 10 Ml Syringe IV 10 ml UD PRN Administration SALINE FLUSH
[2025-07-01] MEDS: Insulin Glargine-YFGN 100 UNIT/ML Pen 8 UNIT SC (09:39)
[2025-07-01] MEDS: Cholecalciferol (VIT D3) 25 MCG TABLET (1,000 UNITS) PO (09:40)
[2025-07-01] MEDS: Memantine Hydrochloride 10 MG Tablet PO ×2 (09:40→21:52)
[2025-07-01] MEDS: levETIRAcetam IV 500 MG in 0.9% Normal Saline (100mL Bag) 100 ML 420 MG IV (09:49)
[2025-07-01] MEDS: 0.9% Saline Lock 10 ML Syringe IV (09:49)
[2025-07-01] MEDS: Creon 24,000 unit DR Capsule 3 CAP PO ×2 (10:38→14:35)
--- NOTE | 2025-07-01 12:29 | PCM.PN.HOSP ---
Reason for Visit Chief Complaint: Seizure Objective Data Objective Data Vital Signs: Vital Signs Temp Pulse Resp BP Pulse Ox O2 Del Method O2 Flow Rate 97.4 F L 57 L 14 119/63 100 Room Air 2 07/01/25 09:37 07/01/25 09:37 07/01/25 09:37 07/01/25 09:37 07/01/25 09:37 07/01/25 09:37 07/01/25 02:12 Oxygen Flow Rate (L/min) 2 Oxygen Delivery Method Room Air Weight: 154 lb Body Mass Index (BMI) 27.3 Intake & Output: Intake and Output for Last 24 Hours 06/29/25 06/30/25 07/01/25 23:59 23:59 23:59 Intake Total 2200 / 2200 250 / 250 1155 / 1155 Output Total 1000 / 1000 150 / 150 Balance 2200 / 1999 -750 / -750 1005 / 1005 Lab / Micro Data 07/01/25 06:13 07/01/25 06:13 Labs: Laboratory Results - last 24 hr 06/29/25 13:35: Absolute Neuts (auto) 7.9 H, Absolute Lymphs (auto) 7.73 H, Neutrophils % (Manual) 47, Band Neutrophils % Not Reportable, Lymphocytes % (Manual) 46 H, Monocytes % (Manual) 6, Other Cells % 1, Diff Path Review Reviewed, Atypical Lymphocytes RARE 06/30/25 15:07: Sodium 147 H, Potassium 4.1, Chloride 114 H, Carbon Dioxide 23.2, Anion Gap 9 06/30/25 17:20: POC Glucose 146 H 06/30/25 21:01: POC Glucose 269 H 07/01/25 06:13: WBC 9.3, RBC 3.43 L, Hgb 10.6 L, Hct 32.5 L, MCV 94.8, MCH 30.9, MCHC 32.6, RDW Std Deviation 42.3, RDW Coeff of Marcio 12.2, Plt Count 128 L, MPV 12.0, Immature Gran % (Auto) 0.800, Neut % (Auto) 66.1, Lymph % (Auto) 21.6, [place] % (Auto) 7.1, Eos % (Auto) 3.4, Baso % (Auto) 1.0, Absolute Neuts (auto) 6.1, Absolute Lymphs (auto) 2.00, Nucleated RBC % 0, Sodium 139, Potassium 3.9, Chloride 107, Carbon Dioxide 22.6, Anion Gap 9, BUN 31 H, Creatinine 0.97, Estim Creat Clear Calc 36.00 L, Est GFR (MDRD) Non-Af 56 L, BUN/Creatinine Ratio 31.9 H, Glucose 286 H, Calcium 9.0, Total Bilirubin 0.42, Direct Bilirubin 0.17, AST 23, ALT 14, Alkaline Phosphatase 72, Total Protein 5.4 L, Albumin 3.1 L, Globulin 2.4 07/01/25 06:29: POC Glucose 255 H 07/01/25 12:06: POC Glucose 348 H Micro: Microbiology 06/29/25 14:55 Urine Catheter - Catheter Urine Culture - Preliminary Escherichia coli Gram negative lester 06/29/25 14:05 Mucosa - Nose SARS-CoV-2, Influenza & RSV (PCR) - Final Radiography Diagnostic Testing: Radiology Impression Brain MRI 06/30/25 15:03 IMPRESSION: No acute intracranial abnormality or specific epileptogenic focus. Advanced generalized brain parenchymal volume loss and chronic small-vessel ischemic-gliotic changes. Multiple scattered chronic lacunar infarcts particularly involving the bilateral cerebellar hemispheres. Small area of chronic cortical infarct in the posterior left parieto-occipital region. Reading Location: [facility] Physical Exam Narrative Seen and examined Patient has old stroke, left occipital lobe infarct and has residual aphasia, decreased mentation on pur?ed diet. Talk to the patient's daughter at the bedside. Possible Alzheimer's dementia Physical exam: General: Alert, orientation cannot be ascertained. Cooperative. Severe aphasia HEENT: Atraumatic, PERRLA, EOMI, Normocephalic. Oral: Dysphagia. On pur?ed diet. no Gingival or Mucosal Lesions/ Ulcerations Neck: Supple, No JVD, Negative Carotid Bruits Chest wall/Lungs: Air entry diminished in bilateral lung bases. No crepitation/rhonchi Cardiovascular: Regular rate and rhythm, Normal S1,S2, systolic murmur Abdomen: Bowel Sounds Present, Soft, Non Tender, Non-Distended : Triana catheter, no renal angle tenderness. No suprapubic tenderness. Extremities: No edema, Capillary Refill Less than 3 Seconds Skin: No rashes, No breakdown Musculoskeletal: No Tenderness to Palpation of Joints or Extremities Neurological: Left-sided facial droop, aphasia. Decreased cognitive skill. Does not follow command for NIH stroke scale. GCS E4, V3, M5, 12 Psych/Mental Status: Flat affect Assessment & Plan Assessment/Plan (1) Seizure: (2) UTI (urinary tract infection): (3) Hyperosmolar hyperglycemic state (HHS): PLAN: Plan Patient is an 89-year-old female who presented to [facility] ED on 06/29/2025 after a seizure. Patient with witnessed tonic-clonic seizure at rehab facility and then again shortly after arrival to the ED. Seizure abated in the ED with 2 mg IV Ativan. No prior history of seizures. 1. Tonic-clonic seizures with acute metabolic encephalopathy suspected secondary to HHS in setting of type 2 diabetes mellitus with hyponatremia and hypochloremia ? Admit under inpatient status to PCU. Most likely secondary to HHS; blood sugar 686 in the ED and beta-hydroxybutyrate negative with normal bicarbonate level so not consistent with DKA. A1c 8.7%, significantly up from A1c 6.5% on 05/13. 06/30: Exact etiology of tonic-clonic seizure unclear but possible from the residual stroke of left occipital lobe infarct or metabolic insult. Last glucose 117. Hypernatremia and hyperchloremia. IV fluid D5W ordered. Lantus and insulin ordered. Accu-Chek before meals and at bedtime with Humalog sliding scale coverage and hypoglycemia protocol. MRI brain without contrast and EEG ordered for evaluation of seizure. Neuro consulted. Empirically started on IV Keppra as patient is high risk because of residual scar tissue from his stroke. 07/01: MRI brain done reported no acute intracranial abnormality or specific epileptogenic focus. Advance generalized brain parenchymal volume loss. Multiple scattered chronic lacunar infarcts particular involving bilateral cerebellar hemisphere. Chronic left parieto-occipital cortical infarct. EEG pending. Neuro consult pending. Continue IV Keppra. 2. Acute UTI, patient could not elicit history about urinary tract symptoms because of aphasia ? UA 100 leukocyte esterase, positive nitrates, 3+ bacteria. Recent urine culture in late April grew Klebsiella sensitive to ceftriaxone. No systemic signs of infection at this time. Continue IV ceftriaxone. Urine culture pending 3. Elevated lactic acid ? Lactic acid 9.3 in the ED, presume secondary to seizure activity as above. Follow-up repeat lactic acid. 06/30: Repeat lactic acid normal. 4. Elevated troponins ? Troponin trend 68 > 58 > 59. No ischemic changes noted on EKG. Presume demand ischemia secondary to seizure activity above. No further cardiac workup needed. 5. Acute on chronic debility in setting of advanced Alzheimer's dementia ? PT/OT/case management consulted. Patient has been at [facility] since prior to discharge in early May. Suspect she will again need SNF placement on this discharge. Appreciate therapy recommendations. Continue home memantine and donepezil. 6. Hypertension/hyperlipidemia ? Normotensive to mildly hypertensive in the ED. Okay to resume home aspirin and statin. 06/30: Continue holding lisinopril. 7. Chronic iron deficiency anemia ? Hemoglobin 12.2 on admit, stable at baseline. Continue home iron supplement. 8. Exocrine pancreatic insufficiency ? Continue home Creon with meals. 9. GERD ? Continue home PPI. 10. Chronic oropharyngeal dysphagia after last stroke: On modified pur?ed diet. Patient does not follow commands DVT prophylaxis: Lovenox CODE STATUS: DNR-CCA, DNI Clinical update given to the patient's daughter near the bedside Charges/Coding Visit Charges Inpatient E&M: 59573 Subs Hosp L2
--- NOTE | 2025-07-01 13:12 | CASEMGMT ---
Advanced Directives [facility] did not have complete HC POA and asked us to reach out to pts to obtain. Pts brought in HC POA and Living Will. Copy sent to HIM as well as placed in chart. Additionally, both were sent to [facility] via [employer]. Funmi Maki DC Planning Asst.
[2025-07-01] MEDS: Creon 12,000 unit DR CapSULE 3 CAP PO (13:40)
--- NOTE | 2025-07-01 22:30 | CPS ---
Pt has home autopap unit was brought in by , missing water chamber. Added a water chamber to pt's machine along with new tubing and new mask from sleep lab dept. Machine is set up and fully functional. applied to pt. RN aware. Pt may need med mask tho as the small keeps sliding in her mouth. Medium mask obtained and place on machine.
[2025-07-02 03:20] VITALS: BP 125/67; PULSE 73; RESP 17; TEMP 36.6; O2SAT 96
--- NOTE | 2025-07-02 08:38 | PN.HOSP_ITS ---
Reason for Visit Chief Complaint: Seizure Objective Data Objective Data Vital Signs: Vital Signs Temp Pulse Resp BP Pulse Ox O2 Del Method O2 Flow Rate 97.9 F 73 17 125/67 H 96 Bi-pap 2 07/02/25 03:20 07/02/25 03:20 07/02/25 03:20 07/02/25 03:20 07/02/25 03:20 07/02/25 03:20 07/01/25 06:50 Oxygen Flow Rate (L/min) 2 Oxygen Delivery Method Bi-pap Weight: 154 lb Body Mass Index (BMI) 27.3 Intake & Output: Intake and Output for Last 24 Hours 06/30/25 07/01/25 07/02/25 23:59 23:59 23:59 Intake Total 250 / 250 1595 / 1595 Output Total 1000 / 1000 525 / 600 225 / 225 Balance -750 / -750 1070 / 995 -225 / -225 Lab / Micro Data 07/01/25 06:13 07/01/25 06:13 Labs: Laboratory Results - last 24 hr 07/01/25 12:06: POC Glucose 348 H 07/01/25 17:15: POC Glucose 352 H 07/01/25 22:23: POC Glucose 201 H 07/02/25 05:58: POC Glucose 188 H Micro: Microbiology 06/29/25 14:55 Urine Catheter - Catheter Urine Culture - Preliminary Escherichia coli Gram negative lester 06/29/25 14:05 Mucosa - Nose SARS-CoV-2, Influenza & RSV (PCR) - Final Physical Exam Narrative Seen and examined Patient's family member, her , son and daughter present in the room. Patient sleepy/lethargic seems on baseline with decreased mentation. 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 Possible Alzheimer's dementia Physical exam: General: Alert, orientation cannot be ascertained. Cooperative. Severe aphasia HEENT: Atraumatic, PERRLA, EOMI, Normocephalic. Oral: Dysphagia. On pur?ed diet. no Gingival or Mucosal Lesions/ Ulcerations Neck: Supple, No JVD, Negative Carotid Bruits Chest wall/Lungs: Air entry diminished in bilateral lung bases. No crepitation/rhonchi Cardiovascular: Regular rate and rhythm, Normal S1,S2, systolic murmur Abdomen: Bowel Sounds Present, Soft, Non Tender, Non-Distended : Triana catheter, no renal angle tenderness. No suprapubic tenderness. Extremities: No edema, Capillary Refill Less than 3 Seconds Skin: No rashes, No breakdown Musculoskeletal: No Tenderness to Palpation of Joints or Extremities Neurological: Left-sided facial droop, aphasia. Decreased cognitive skill. Does not follow command for NIH stroke scale. GCS E4, V3, M5, 12 Psych/Mental Status: Flat affect possible dementia Assessment & Plan Assessment/Plan (1) Seizure: (2) UTI (urinary tract infection): (3) Hyperosmolar hyperglycemic state (HHS): PLAN: Plan Patient is an 89-year-old female who presented to [facility] ED on 06/29/2025 after a seizure. Patient with witnessed tonic-clonic seizure at rehab facility and then again shortly after arrival to the ED. Seizure abated in the ED with 2 mg IV Ativan. No prior history of seizures. 1. Tonic-clonic seizures with acute metabolic encephalopathy suspected secondary to HHS in setting of type 2 diabetes mellitus with hyponatremia and hypochloremia ? Admit under inpatient status to PCU. Most likely secondary to HHS; blood sugar 686 in the ED and beta-hydroxybutyrate negative with normal bicarbonate level so not consistent with DKA. A1c 8.7%, significantly up from A1c 6.5% on 05/13. 06/30: Exact etiology of tonic-clonic seizure unclear but possible from the residual stroke of left occipital lobe infarct or metabolic insult. Last glucose 117. Hypernatremia and hyperchloremia. IV fluid D5W ordered. Lantus and insulin ordered. Accu-Chek before meals and at bedtime with Humalog sliding scale coverage and hypoglycemia protocol. MRI brain without contrast and EEG ordered for evaluation of seizure. Neuro consulted. Empirically started on IV Keppra as patient is high risk because of residual scar tissue from his stroke. 07/01: MRI brain done reported no acute intracranial abnormality or specific epileptogenic focus. Advance generalized brain parenchymal volume loss. Multiple scattered chronic lacunar infarcts particular involving bilateral cerebellar hemisphere. Chronic left parieto-occipital cortical infarct. EEG pending. Neuro consult pending. Continue IV Keppra. 07/02: After discussion with neurologist, IV Keppra was discontinued yesterday. EEG reported no epileptiform discharges but mild to moderate diffuse encephalopathy with background of diffuse delta theta slow activity. Patient is ready for the discharge. Pending pre-CERT 2. Acute UTI, patient could not elicit history about urinary tract symptoms because of aphasia ? UA 100 leukocyte esterase, positive nitrates, 3+ bacteria. Recent urine culture in late April grew Klebsiella sensitive to ceftriaxone. No systemic signs of infection at this time. Continue IV ceftriaxone. Urine culture pending 07/02: Urine culture reported E. coli 50,000?80,000 colonies and other GNR 1000- 10,000 colonies, nonpathologic range. Acute UTI ruled out. Stop ceftriaxone after third dose 3. Elevated lactic acid ? Lactic acid 9.3 in the ED, presume secondary to seizure activity as above. Follow-up repeat lactic acid. 06/30: Repeat lactic acid normal. 4. Elevated troponins ? Troponin trend 68 > 58 > 59. No ischemic changes noted on EKG. Presume demand ischemia secondary to seizure activity above. No further cardiac workup needed. 5. Acute on chronic debility in setting of advanced Alzheimer's dementia ? PT/OT/case management consulted. Patient has been at [facility] since prior to discharge in early May. Suspect she will again need SNF placement on this discharge. Appreciate therapy recommendations. Continue home memantine and donepezil. 6. Hypertension/hyperlipidemia ? Normotensive to mildly hypertensive in the ED. Okay to resume home aspirin and statin. 06/30: Continue holding lisinopril. 7. Chronic iron deficiency anemia ? Hemoglobin 12.2 on admit, stable at baseline. Continue home iron supplement. 8. Exocrine pancreatic insufficiency ? Continue home Creon with meals. 9. GERD ? Continue home PPI. 10. Chronic oropharyngeal dysphagia after last stroke: On modified pur?ed diet. Patient does not follow commands DVT prophylaxis: Lovenox CODE STATUS: DNR-CCA, DNI Clinical update given to the patient's , son and daughter Charges/Coding Visit Charges Inpatient E&M: 15013 Subs Hosp L2
[2025-07-02 08:55] VITALS: BP 113/67; PULSE 61; RESP 16; TEMP 36.4; O2SAT 94
[2025-07-02] MEDS: Creon 24,000 unit DR Capsule 3 CAP PO ×3 (09:07→17:27)
[2025-07-02] MEDS: Creon 12,000 unit DR CapSULE 3 CAP PO ×3 (09:08→17:27)
[2025-07-02] MEDS: Insulin Glargine-YFGN 100 UNIT/ML Pen 8 UNIT SC (09:09)
[2025-07-02] MEDS: Memantine Hydrochloride 10 MG Tablet PO ×2 (09:09→22:48)
[2025-07-02] MEDS: Cholecalciferol (VIT D3) 25 MCG TABLET (1,000 UNITS) PO (09:10)
--- NOTE | 2025-07-02 10:18 | CASEMGMT ---
Social Work SW spoke with the patients and his daughter Arlene. The reported he does not want his to return to [facility]. The reported he wants his to DC to TCU as his first choice. SW made the referral to TCU. MEIR Howell
--- NOTE | 2025-07-02 11:26 | CASEMGMT ---
Social Work A list of?SNF providers including quality and resource use data and consistent with the patient's preferred geographic region, medical needs, and insurance network was created in [employer] Guide.?This list was provided to the patients . MEIR Sheffield
--- NOTE | 2025-07-02 12:20 | CASEMGMT ---
Social Work SW spoke with the . SW informed him that [facility] said no. The husbands second choice is [facility] and the third choice is [facility]. A referral will be sent [facility]. MEIR Howell
--- NOTE | 2025-07-02 12:34 | CASEMGMT ---
Addendum entered by Funmi Maki 07/03/25 08:16: [facility] has accepted. SW updated. Addendum entered by Funmi Maki 07/02/25 15:19: Therapy evals sent to [facility] with [facility] admit date and copy of secondary insurance policy. Referral remains pending. Original Note: Discharge Planning Referral sent via [facility]Port to [facility]. Funmi Maki DC Planning Asst.
--- NOTE | 2025-07-02 14:21 | CASEMGMT ---
Social Work The patients chose [facility] for a SNF placement for his . The has to pay part of the bill. The facility wanted financial papers completed and the is going to work on those forms tonight. [place] informed the SW will check with him first thing in the morning. SW informed the physician. The physician was going to DC the patient today. Patient was at [facility] prior to admission to the hospital. The does not want her to return there. Plan: SW will meet with the in the morning to obtain the paperwork for [facility]. MEIR Howell
[2025-07-02 15:20] VITALS: BP 119/61; PULSE 60; RESP 16; TEMP 36.4; O2SAT 95
[2025-07-02 22:45] VITALS: BP 110/61; PULSE 85; RESP 16; TEMP 36.9; O2SAT 97
[2025-07-02] MEDS: 0.9% Saline Lock 10 ML Syringe IV (22:48)
[2025-07-03 03:45] VITALS: BP 124/70; PULSE 77; RESP 17; TEMP 36.4; O2SAT 98
--- NOTE | 2025-07-03 07:40 | PCM.TXEXTCAR ---
Diet Diet Order/Speech Therapy: INPATIENT Hospital Diet / Speech Therapy Order(s) 06/30/25 14:37 Diet: Carbohydrate Controlled Food consistency:: Pureed Liquid Consistency:: Regular/Thin Speech Therapy Comments: TOTAL FEED, slow rate, meds crushed in Routine Orders/Code Status Suppository Type: Dulcolax 10mg Suppository Frequency: Daily PRN DC O2, CPAP, BIPAP needs Home O2 Discharge instructions: No Therapies Extremity Affected:: Bilateral Lower Physical Therapy: Eval and Treat Occupational Therapy: Eval and Treat Speech Therapy: Eval and Treat Problem/Diagnosis (1) Seizure: Status: Acute Code(s): R56.9 - Unspecified convulsions (2) UTI (urinary tract infection): Status: Acute Code(s): N39.0 - Urinary tract infection, site not specified (3) Hyperosmolar hyperglycemic state (HHS): Status: Acute Code(s): E11.00 - Type 2 diabetes mellitus with hyperosmolarity without nonketotic hyperglycemic-hyperosmolar coma ([facility]) Plan Patient is an 89-year-old female who presented to [facility] ED on 06/29/2025 after a seizure. Patient with witnessed tonic-clonic seizure at rehab facility and then again shortly after arrival to the ED. Seizure abated in the ED with 2 mg IV Ativan. No prior history of seizures. 1. Tonic-clonic seizures with acute metabolic encephalopathy suspected secondary to HHS in setting of type 2 diabetes mellitus with hyponatremia and hypochloremia ? Admit under inpatient status to PCU. Most likely secondary to HHS; blood sugar 686 in the ED and beta-hydroxybutyrate negative with normal bicarbonate level so not consistent with DKA. A1c 8.7%, significantly up from A1c 6.5% on 05/13. 06/30: Exact etiology of tonic-clonic seizure unclear but possible from the residual stroke of left occipital lobe infarct or metabolic insult. Last glucose 117. Hypernatremia and hyperchloremia. IV fluid D5W ordered. Lantus and insulin ordered. Accu-Chek before meals and at bedtime with Humalog sliding scale coverage and hypoglycemia protocol. MRI brain without contrast and EEG ordered for evaluation of seizure. Neuro consulted. Empirically started on IV Keppra as patient is high risk because of residual scar tissue from his stroke. 07/01: MRI brain done reported no acute intracranial abnormality or specific epileptogenic focus. Advance generalized brain parenchymal volume loss. Multiple scattered chronic lacunar infarcts particular involving bilateral cerebellar hemisphere. Chronic left parieto-occipital cortical infarct. EEG pending. Neuro consult pending. Continue IV Keppra. 07/02: After discussion with neurologist, IV Keppra was discontinued yesterday. EEG reported no epileptiform discharges but mild to moderate diffuse encephalopathy with background of diffuse delta theta slow activity. Patient is ready for the discharge. Pending pre-CERT 2. Acute UTI, patient could not elicit history about urinary tract symptoms because of aphasia ? UA 100 leukocyte esterase, positive nitrates, 3+ bacteria. Recent urine culture in late April grew Klebsiella sensitive to ceftriaxone. No systemic signs of infection at this time. Continue IV ceftriaxone. Urine culture pending 07/02: Urine culture reported E. coli 50,000?80,000 colonies and other GNR 1000-10,000 colonies, nonpathologic range. Acute UTI ruled out. Stop ceftriaxone after third dose 3. Elevated lactic acid ? Lactic acid 9.3 in the ED, presume secondary to seizure activity as above. Follow-up repeat lactic acid. 06/30: Repeat lactic acid normal. 4. Elevated troponins ? Troponin trend 68 > 58 > 59. No ischemic changes noted on EKG. Presume demand ischemia secondary to seizure activity above. No further cardiac workup needed. 5. Acute on chronic debility in setting of advanced Alzheimer's dementia ? PT/OT/case management consulted. Patient has been at [facility] since prior to discharge in early May. Suspect she will again need SNF placement on this discharge. Appreciate therapy recommendations. Continue home memantine and donepezil. 6. Hypertension/hyperlipidemia ? Normotensive to mildly hypertensive in the ED. Okay to resume home aspirin and statin. 06/30: Continue holding lisinopril. 7. Chronic iron deficiency anemia ? Hemoglobin 12.2 on admit, stable at baseline. Continue home iron supplement. 8. Exocrine pancreatic insufficiency ? Continue home Creon with meals. 9. GERD ? Continue home PPI. 10. Chronic oropharyngeal dysphagia after last stroke: On modified pur?ed diet. Patient does not follow commands DVT prophylaxis: Lovenox CODE STATUS: DNR-CCA, DNI Clinical update given to the patient's , son and daughter Allergies/Procedures Done in Hospital Allergies pollen extracts Allergy (Intermediate, Verified 06/29/25 13:39) PT UNSURE OF REACTION Type of Care/Length of Stay Estimated LOS: Convalescent Care Less Than 30 days Type of Care Needed: Skilled Rehab Potential: Good Prognosis: Good Additional Orders/Day of Discharge Day of Discharge: 07/03/25 Dietary and Speech Recommendations Dietitian Recommendations/Changes: Will adjust to consistent carbohydrate diet per CLINICAL NURSE MANAGER recommendations. Will monitor weight trends. Discharge Plan Admission Admit Date/Time: 06/29/25 16:12 Attending Provider: Dereck Oliveros Primary Care Provider: Mello Fowler Consulting Providers: Louis Stoddard; Ana María Zamorano; Michelle Turner; Aaliyah Briones; Vikash Finnegan; Rachel Jackson; Jose Raul Tse; Kinjal Edwards; Silvana Nguyen; Jose Anderson; Tara Zaidi; Lewis Rutherford; George Lema; Chel Palmer; Jose Adams; Leonid Cordova; Xander Soto; Eddie Wilder; Dean Sewell; Jermain Burnham; Mima Buckner; Brittney Hatfield; Rosemarie Cee; Juventino Joy; Shireen Chakraborty; SASHA WOOD; Humberto Dyer; Payal Rosa Instructions Additional Instructions / Restrictions: Nitrofurantoin discontinued because urine culture shows 2 organisms less than pathology cream therefore most likely colonization. She had 3 doses of IV ceftriaxone Discharge Orders/Prescriptions Prescriptions: New insulin lispro [Humalog KwikPen Insulin] 100 unit/mL Insulin Pen See Protocol subcut ACHS Qty: 0 0RF Protocol: 4. Sliding Scale Insulin High-Med Dosing Condition: 150-199 mg/dl = 2 units Condition: 200-259 mg/dl = 4 units Condition: 260-324 mg/dl = 6 units Condition: 325-374 mg/dl = 8 units Condition: 375-409 mg/dl = 10 units Condition: 410-449 mg/dl = 11 units Condition: Greater than 449 call physician Protocol Text: Suggested for: - Patients on Total Daily Insulin Dose of 56-80 units - Patient who are known to be insulin resistant or septic HIGH MEDIUM DOSING ALGORITHM Continued ramipril 5 mg capsule 5 mg PO DAILY omeprazole 40 MG capsule 40 mg PO DAILY Patient Comments: STOMACH metformin 500 MG tablet 500 mg PO DAILY cholecalciferol (vitamin D3) 1,000 UNIT capsule 1,000 unit PO DAILY xkeeuxqg-jum-OS-lycopen-lutein 1 EACH tablet 1 ea PO BID memantine 10 mg tablet 10 mg PO BID Patient Comments: TAKE 1 TABLET BY MOUTH TWICE DAILY aspirin 81 mg Tablet,Chewable 81 mg PO BREAKFAST Qty: 30 1RF acetaminophen [Tylenol Extra Strength] 500 mg tablet 500 mg PO BID d-mannose 500 mg capsule 1,000 mg PO BID ascorbic acid (vitamin C) [C-500] 500 mg tablet 500 mg PO BID ferrous sulfate [FeroSul] 325 mg (65 mg iron) tablet 325 mg PO DAILY atorvastatin 40 mg tablet 80 mg PO DAILY donepezil 10 mg tablet 10 mg PO QHS ropinirole 0.5 mg tablet 0.5 mg PO QHS sennosides-docusate sodium [Stimulant Laxative Plus] 8.6-50 mg Tablet 2 tab PO BID PRN PRN (Reason: Constipation) Qty: 0 0RF Creon 36,000-114,000- 180,000 unit capsule,delayed release(DR/EC) 3 cap PO .aqc Qty: 300 11RF Rx Instructions: Take 3 caps with each meal and 1 with snacks. Max 10 caps per day Changed glipizide 2.5 mg tablet 5 mg PO BID 30 Days Qty: 120 0RF Rx Instructions: Hold if glucose less than 130 mg/dl Discontinued nitrofurantoin macrocrystal 50 mg capsule 50 mg PO DAILY Referrals / Follow Up: Mello Fowler DO [Primary Care Provider, Family Practice] Dwight Blum MD [Non-Staff -Ordering Privileges, Neurology] - Within 1 Month Disposition Disposition (needs filled in before D/C Order can be placed): Group Home Facility
--- NOTE | 2025-07-03 09:04 | PCM.DC.SUM ---
Providers Date of Admission: 06/29/25 Date of Discharge: 07/03/25 Primary Care Physician: Dr. Mello Fowler, DO Consultations 06/30/25 15:02 Consult: Tele-Neurology Routine Consulting Provider: [facility] Reason for Consult: 2 seizures, old left occipital stroke EMERGENT Consult: No MD Notified: Yes Date Notified: 06/30/25 Time Notified: 15:10 Method of Notification: Answering Service Reason For Visit: HHS WITH SEIZURE, UTI Diagnosis Discharge Diagnosis (1) Seizure: Status: Acute Code(s): R56.9 - Unspecified convulsions (2) UTI (urinary tract infection): Status: Acute Code(s): N39.0 - Urinary tract infection, site not specified (3) Hyperosmolar hyperglycemic state (HHS): Status: Acute Code(s): E11.00 - Type 2 diabetes mellitus with hyperosmolarity without nonketotic hyperglycemic-hyperosmolar coma (NKHHC) Plan Patient is an 89-year-old female who presented to [facility] ED on 06/29/2025 after a seizure. Patient with witnessed tonic-clonic seizure at rehab facility and then again shortly after arrival to the ED. Seizure abated in the ED with 2 mg IV Ativan. No prior history of seizures. 1. 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 Yeah ? Admit under inpatient status to PCU. Most likely secondary to HHS; blood sugar 686 in the ED and beta-hydroxybutyrate negative with normal bicarbonate level so not consistent with DKA. A1c 8.7%, significantly up from A1c 6.5% on 05/13. 06/30: Exact etiology of tonic-clonic seizure unclear but possible from the residual stroke of left occipital lobe infarct or metabolic insult. Last glucose 117. Hypernatremia and hyperchloremia. IV fluid D5W ordered. Lantus and insulin ordered. Accu-Chek before meals and at bedtime with Humalog sliding scale coverage and hypoglycemia protocol. MRI brain without contrast and EEG ordered for evaluation of seizure. Neuro consulted. Empirically started on IV Keppra as patient is high risk because of residual scar tissue from his stroke. 07/01: MRI brain done reported no acute intracranial abnormality or specific epileptogenic focus. Advance generalized brain parenchymal volume loss. Multiple scattered chronic lacunar infarcts particular involving bilateral cerebellar hemisphere. Chronic left parieto-occipital cortical infarct. EEG pending. Neuro consult pending. Continue IV Keppra. 07/02: After discussion with neurologist, IV Keppra was discontinued yesterday. EEG reported no epileptiform discharges but mild to moderate diffuse encephalopathy with background of diffuse delta theta slow activity. Patient is ready for the discharge. Pending pre-CERT 07/03: Pre-CERT approved. Patient is being discharged on her home medications. Antiepileptic medication, Keppra was discontinued as mentioned above. Most likely she has advanced dementia/Alzheimer's dementia therefore follow-up with neurologist 2. Abnormal UA/colonization or contaminant, patient could not elicit history about urinary tract symptoms because of aphasia ? UA 100 leukocyte esterase, positive nitrates, 3+ bacteria. Recent urine culture in late April grew Klebsiella sensitive to ceftriaxone. No systemic signs of infection at this time. Continue IV ceftriaxone. Urine culture pending 07/02: Urine culture reported E. coli 50,000?80,000 colonies and other GNR 1000-10,000 colonies, nonpathologic range. Acute UTI ruled out. Stop ceftriaxone after third dose 07/03: UTI ruled out most likely it is colonization. As an outpatient, she is on nitrofurantoin 50 mg daily which is discontinued not needed. She also on d-mannose probably for UTI prevention, continue. 3. Elevated lactic acid ? Lactic acid 9.3 in the ED, presume secondary to seizure activity as above. Follow-up repeat lactic acid. 06/30: Repeat lactic acid normal. 4. Elevated troponins ? Troponin trend 68 > 58 > 59. No ischemic changes noted on EKG. Presume demand ischemia secondary to seizure activity above. No further cardiac workup needed. 5. Acute on chronic debility in setting of advanced Alzheimer's dementia ? PT/OT/case management consulted. Patient has been at [facility] since prior to discharge in early May. Suspect she will again need SNF placement on this discharge. Appreciate therapy recommendations. Continue home memantine and donepezil. 6. Hypertension/hyperlipidemia ? Normotensive to mildly hypertensive in the ED. Okay to resume home aspirin and statin. 06/30: Continue holding lisinopril. 7. Chronic iron deficiency anemia ? Hemoglobin 12.2 on admit, stable at baseline. Continue home iron supplement. 8. Exocrine pancreatic insufficiency ? Continue home Creon with meals. 9. GERD ? Continue home PPI. 10. Chronic oropharyngeal dysphagia after last stroke: On modified pur?ed diet. Patient does not follow commands DVT prophylaxis: Lovenox CODE STATUS: DNR-CCA, DNI Discharge medication reconciliation done. Discharge follow-up instructions completed. Discharge process discussed with the patient and all questions were answered to patient's satisfaction. Follow with PCP in 1 to 2 weeks Total time spent, exact 35 minutes on discharge meds reconciliation, examination, coordination of care with nurses and ancillary staff, review of imaging and blood test and discussion with the patient on follow-up instructions. Medications at Discharge Home Medications omeprazole 40 mg capsule,delayed release 40 mg PO DAILY GERD 01/06/14 cholecalciferol (vitamin D3) 25 mcg (1,000 unit) capsule 1,000 unit PO DAILY supplement 08/28/16 metformin 500 mg tablet 500 mg PO DAILY blood sugar 08/28/16 kfbofklo-utk-ehzuz acid 0.4 mg-lycopene 300 mcg-lutein 250 mcg tablet 1 ea PO BID supplement 12/03/18 memantine 10 mg tablet 10 mg PO BID mental health 09/11/21 ramipril 5 mg capsule 5 mg PO DAILY blood pressure 01/11/22 aspirin 81 mg chewable tablet 81 mg PO BREAKFAST #30 tabs 09/20/22 acetaminophen 500 mg tablet (Tylenol Extra Strength) 500 mg PO BID 06/07/23 hjasxq-zmwhvllo-vtjzjej (pork)36,000-114,000-180k unit capsule,del rel (Creon) 3 cap PO .aqc #300 caps 07/24/24 atorvastatin 40 mg tablet 80 mg PO DAILY 05/13/25 donepezil 10 mg tablet 10 mg PO QHS 05/13/25 ropinirole 0.5 mg tablet 0.5 mg PO QHS 05/13/25 sennosides 8.6 mg-docusate sodium 50 mg tablet (Stimulant Laxative Plus) 2 tab PO BID PRN PRN Constipation #0 tabs 05/20/25 ascorbic acid (vitamin C) 500 mg tablet (C-500) 500 mg PO BID 06/29/25 d-mannose 500 mg capsule 1,000 mg PO BID 06/29/25 ferrous sulfate 325 mg (65 mg iron) tablet (FeroSul) 325 mg PO DAILY 06/29/25 glipizide 2.5 mg tablet 5 mg (2 x 2.5 mg) PO BID 30 days #120 tabs 07/03/25 insulin lispro 100 unit/mL subcutaneous pen (Humalog KwikPen (U-100) Insulin) See Protocol subcut ACHS #0 mL 07/03/25 Physical Exam Narrative Seen and examined This patient on CPAP. Awake. She mumbles few words, incomprehensible. 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 Possible Alzheimer's dementia Physical exam: General: Alert, orientation cannot be ascertained. Cooperative. Severe aphasia HEENT: Atraumatic, PERRLA, EOMI, Normocephalic. Oral: On CPAP. Dysphagia. On pur?ed diet. Neck: Supple, No JVD, Negative Carotid Bruits Chest wall/Lungs: Air entry diminished in bilateral lung bases. No crepitation/rhonchi Cardiovascular: Regular rate and rhythm, Normal S1,S2, systolic murmur Abdomen: Bowel Sounds Present, Soft, Non Tender, Non-Distended : Triana catheter, no renal angle tenderness. No suprapubic tenderness. Extremities: No edema, Capillary Refill Less than 3 Seconds Skin: No rashes, No breakdown Musculoskeletal: No Tenderness to Palpation of Joints or Extremities Neurological: Left-sided facial droop, aphasia. Decreased cognitive skill. Does not follow command for NIH stroke scale. GCS E4, V3, M5, 12 Psych/Mental Status: Flat affect possible dementia Weight / BMI Weight Weight: 153 lb 15.992 oz Body Mass Index (BMI) 27.3 ABG / Lab / Microbiology Data 07/01/25 06:13 07/01/25 06:13 Laboratory: Laboratory Results - last 24 hr 07/02/25 09:06: POC Glucose 158 H 07/02/25 12:45: POC Glucose 214 H 07/02/25 17:24: POC Glucose 190 H 07/02/25 21:47: POC Glucose 269 H 07/03/25 06:24: POC Glucose 152 H Microbiology: Microbiology 06/29/25 14:55 Urine Catheter - Catheter Urine Culture - Final Escherichia coli Proteus mirabilis 06/29/25 14:05 Mucosa - Nose SARS-CoV-2, Influenza & RSV (PCR) - Final D/C Instructions DC O2, CPAP, BIPAP Needs Home O2 Discharge instructions: No Meaningful Use Info Meaningful Use Meaningful Use Diagnoses (Choose all that apply): None applicable Discharge Plan Admission Admit Date/Time: 06/29/25 16:12 Attending Provider: Dereck Oliveros Primary Care Provider: Mello Fowler Consulting Providers: Louis Stoddard; Ana María Zamorano; Michelle Turner; Aaliyah Briones; Vikash Finnegan; Rachel Jackson; Jose Raul Tse; Kinjal Edwards; Silvana Nguyen; oJse Anderson; Tara Zaidi; Lewis Rutherford; George Lema; Chel Palmer; Jose Adams; Leonid Cordova; Xander Soto; Eddie Wilder; Dean Sewell; Jermain Burnham; Mima Buckner; Brittney Hatfield; Rosemarie Cee; Juventino Joy; Shireen Chakraborty; SASHA WOOD; Humberto Dyer; Payal Rosa Instructions Additional Instructions / Restrictions: Nitrofurantoin discontinued because urine culture shows 2 organisms less than pathology cream therefore most likely colonization. She had 3 doses of IV ceftriaxone Discharge Orders/Prescriptions Prescriptions: New insulin lispro [Humalog KwikPen Insulin] 100 unit/mL Insulin Pen See Protocol subcut ACHS Qty: 0 0RF Protocol: 4. Sliding Scale Insulin High-Med Dosing Condition: 150-199 mg/dl = 2 units Condition: 200-259 mg/dl = 4 units Condition: 260-324 mg/dl = 6 units Condition: 325-374 mg/dl = 8 units Condition: 375-409 mg/dl = 10 units Condition: 410-449 mg/dl = 11 units Condition: Greater than 449 call physician Protocol Text: Suggested for: - Patients on Total Daily Insulin Dose of 56-80 units - Patient who are known to be insulin resistant or septic HIGH MEDIUM DOSING ALGORITHM Continued ramipril 5 mg capsule 5 mg PO DAILY omeprazole 40 MG capsule 40 mg PO DAILY Patient Comments: STOMACH metformin 500 MG tablet 500 mg PO DAILY cholecalciferol (vitamin D3) 1,000 UNIT capsule 1,000 unit PO DAILY eluvijwf-yvz-NZ-lycopen-lutein 1 EACH tablet 1 ea PO BID memantine 10 mg tablet 10 mg PO BID Patient Comments: TAKE 1 TABLET BY MOUTH TWICE DAILY aspirin 81 mg Tablet,Chewable 81 mg PO BREAKFAST Qty: 30 1RF acetaminophen [Tylenol Extra Strength] 500 mg tablet 500 mg PO BID d-mannose 500 mg capsule 1,000 mg PO BID ascorbic acid (vitamin C) [C-500] 500 mg tablet 500 mg PO BID ferrous sulfate [FeroSul] 325 mg (65 mg iron) tablet 325 mg PO DAILY atorvastatin 40 mg tablet 80 mg PO DAILY donepezil 10 mg tablet 10 mg PO QHS ropinirole 0.5 mg tablet 0.5 mg PO QHS sennosides-docusate sodium [Stimulant Laxative Plus] 8.6-50 mg Tablet 2 tab PO BID PRN PRN (Reason: Constipation) Qty: 0 0RF Creon 36,000-114,000- 180,000 unit capsule,delayed release(DR/EC) 3 cap PO .aqc Qty: 300 11RF Rx Instructions: Take 3 caps with each meal and 1 with snacks. Max 10 caps per day Changed glipizide 2.5 mg tablet 5 mg PO BID 30 Days Qty: 120 0RF Rx Instructions: Hold if glucose less than 130 mg/dl Discontinued nitrofurantoin macrocrystal 50 mg capsule 50 mg PO DAILY Referrals / Follow Up: Mello Fowler DO [Primary Care Provider, Family Practice] Dwight Blum MD [Non-Staff -Ordering Privileges, Neurology] - Within 1 Month Disposition Disposition (needs filled in before D/C Order can be placed): Long-Term Facility Charges/Coding Visit Charges Inpatient E&M: 72228 Disch Hosp >30min
[2025-07-03] MEDS: Creon 12,000 unit DR CapSULE 3 CAP PO ×2 (09:23→12:46)
[2025-07-03] MEDS: Creon 24,000 unit DR Capsule 3 CAP PO ×2 (09:25→12:46)
[2025-07-03] MEDS: Memantine Hydrochloride 10 MG Tablet PO (09:29)
[2025-07-03] MEDS: Cholecalciferol (VIT D3) 25 MCG TABLET (1,000 UNITS) PO (09:30)
[2025-07-03] MEDS: Insulin Glargine-YFGN 100 UNIT/ML Pen 8 UNIT SC (09:31)
--- NOTE | 2025-07-03 09:55 | PHA.DC.MR.R ---
Pharmacy [place] Med Reconciliation Pharmacy Service has performed discharge medication reconciliation for this patient. The patient's discharge medication list was reviewed for discrepancies and discrepancies were resolved. Medications at Discharge Home Medications omeprazole 40 mg capsule,delayed release 40 mg PO DAILY GERD 01/06/14 cholecalciferol (vitamin D3) 25 mcg (1,000 unit) capsule 1,000 unit PO DAILY supplement 08/28/16 metformin 500 mg tablet 500 mg PO DAILY blood sugar 08/28/16 yqmhjgsz-kdf-yyuvt acid 0.4 mg-lycopene 300 mcg-lutein 250 mcg tablet 1 ea PO BID supplement 12/03/18 memantine 10 mg tablet 10 mg PO BID mental health 09/11/21 ramipril 5 mg capsule 5 mg PO DAILY blood pressure 01/11/22 aspirin 81 mg chewable tablet 81 mg PO BREAKFAST #30 tabs 09/20/22 acetaminophen 500 mg tablet (Tylenol Extra Strength) 500 mg PO BID 06/07/23 fdfniw-qtymcukt-hrnmfgo (pork)36,000-114,000-180k unit capsule,del rel (Creon) 3 cap PO .aqc #300 caps 07/24/24 atorvastatin 40 mg tablet 80 mg PO DAILY 05/13/25 donepezil 10 mg tablet 10 mg PO QHS 05/13/25 ropinirole 0.5 mg tablet 0.5 mg PO QHS 05/13/25 sennosides 8.6 mg-docusate sodium 50 mg tablet (Stimulant Laxative Plus) 2 tab PO BID PRN PRN Constipation #0 tabs 05/20/25 ascorbic acid (vitamin C) 500 mg tablet (C-500) 500 mg PO BID 06/29/25 d-mannose 500 mg capsule 1,000 mg PO BID 06/29/25 ferrous sulfate 325 mg (65 mg iron) tablet (FeroSul) 325 mg PO DAILY 06/29/25 glipizide 2.5 mg tablet 5 mg (2 x 2.5 mg) PO BID 30 days #120 tabs 07/03/25 insulin lispro 100 unit/mL subcutaneous pen (Humalog KwikPen (U-100) Insulin) See Protocol subcut ACHS #0 mL 07/03/25
[2025-07-03 10:11] VITALS: BP 124/70; PULSE 72; RESP 17; TEMP 36.4; O2SAT 98
--- NOTE | 2025-07-03 10:59 | CASEMGMT ---
Discharge Planning/Passr [id number] was submitted in error. Pt has an active Passr/[id number]. Email sent to [email or web address] to withdraw [phone]. Email confirmations were placed in pts chart. Funmi Maki DC Planning Asst.
--- NOTE | 2025-07-03 11:03 | CASEMGMT ---
Discharge Planning Discharge orders, signed med list, and transport time sent via [facility] to [facility]. Physicians will transport pt by cot at 1p. Nursing and SW updated. VM left for pts . Funmi Maki DC Planning Asst.
--- NOTE | 2025-07-03 11:58 | NURSING ---
Report called to nurse Raquel for pt to be d/c to [facility].
== END 2025-07-03 13:27 | disposition skilled nursing facility (03) | DRG 637 ==
LOC: ED 16:17 → PCU 16:46
PROVIDERS: Admitting Provider Hospitalist; Emergency Provider Surgery; PCP Family Medicine; Visit Provider Internal Medicine
DX: E11.00 Type 2 diabetes mellitus with hyperosmolarity without nonketotic hyperglycemic-hyperosmolar coma (NKHHC) (principal); G93.41 Metabolic encephalopathy; E87.0 Hyperosmolality and hypernatremia; E87.1 Hypo-osmolality and hyponatremia; I69.320 Aphasia following cerebral infarction; K86.89 Other specified diseases of pancreas; R13.12 Dysphagia, oropharyngeal phase; E11.22 Type 2 diabetes mellitus with diabetic chronic kidney disease; D50.9 Iron deficiency anemia, unspecified; Z66 Do not resuscitate; G30.9 Alzheimer's disease, unspecified; N18.30 Chronic kidney disease, stage 3 unspecified; R56.9 Unspecified convulsions; I12.9 Hypertensive chronic kidney disease with stage 1 through stage 4 chronic kidney disease, or unspecified chronic kidney disease; G25.81 Restless legs syndrome; F02.80 Dementia in other diseases classified elsewhere, unspecified severity, without behavioral disturbance, psychotic disturbance, mood disturbance, and anxiety; E78.5 Hyperlipidemia, unspecified; K21.9 Gastro-esophageal reflux disease without esophagitis; E87.8 Other disorders of electrolyte and fluid balance, not elsewhere classified; I69.391 Dysphagia following cerebral infarction; Z90.710 Acquired absence of both cervix and uterus; Z79.84 Long term (current) use of oral hypoglycemic drugs; Z79.82 Long term (current) use of aspirin; R09.02 Hypoxemia; Z79.899 Other long term (current) drug therapy; R74.02 Elevation of levels of lactic acid dehydrogenase [LDH]; R53.81 Other malaise; R79.89 Other specified abnormal findings of blood chemistry; Z99.89 Dependence on other enabling machines and devices
CPT/HCPCS: 36415; 36600; 51702; 70450; 70496; 70498; 70551; 71045; 80048; 80051; 80053; 80076; 80307; 81001; 82010; 82077; 82803; 82962; 83036; 83605; 83735; 83880; 84100; 84484; 85025; 85027; 85610; 85730; 87077; 87086; 87088; 87186; 87631; 92526; 92610; 93005; 94668; 94762; 95819; 97163; 97167; 99252; 99285; Q9967; A4216; G0463